=== PATIENT | female | born 1940 | race Caucasian/White ===

== ENCOUNTER 2016-12-04 13:22 | Emergency (ER) | payer OTHER, MEDICARE ==
[~2016-12-04] VITALS: Ht 152.4 cm; Wt 76.8 kg
[~2016-12-04 13:22] MED LIST: ACET-1228 PO; ALBUAER2 INH; ARFO15NE INH; BUDE0.5S INH; CPR250 PO; FLUT0.15 NAE; GABA-112 PO; INSDGI SC; INSU1INJ2 SC; LOSA50TA6 PO; MAGN400T24 PO; METO50TA16 PO; NVLG SC; PANT40TA PO
[2016-12-04 13:31] VITALS: TEMP 36.7; O2SAT 98; Ht 152.4 cm; Wt 76.8 kg
[2016-12-04] MEDS ORDERED: METOPROLOL TARTRATE 1 MG/ML VIAL IV STA ×2 (14:38→15:47)
--- NOTE | 2016-12-04 15:32 | DIAGNOSTIC IMAGING REPORT ---
HEAD CT NONCONTRAST CT DOSE: 537.48 mGy.cm HISTORY: Altered mental status. TECHNIQUE: Multiaxial CT images of the head were performed without the use of intravenous contrast. Automated exposure control was utilized for this study. Comparison: Head CT 11/29/2016. Findings: The paranasal sinuses and mastoid air cells are clear. The calvarium and skull base are intact. There is no mass, hematoma, midline shift, acute infarct. White matter hypodensity is nonspecific but suggestive of microvascular ischemic change. The ventricles and sulci demonstrate a within normal limits for age. Impression: No significant change compared to the prior study. No acute intracranial abnormality. Electronically signed by: Rogerio Parker M.D. 12/04/2016 3:31 PM Dictated Date/Time: 12/04/2016 3:25 PM
[2016-12-04] MEDS ORDERED: METO100T14 PO (15:50)
[2016-12-04 16:20] LABS: BASO % 0.8 %; BASO ABS # 0.08 K/uL (0-0.2); COMPLETE YES; EOS % 6.6 %; HEMATOCRIT 36.1 % (37-47); IG% 0.4 %; LYMPH % 33.1 %; LYMPH ABS # 3.18 K/uL (1.2-3.4); MEAN CELL VOLUME 85.5 fL (80-100); MEAN CORPUSCULAR HGB CONC 36.3 g/dl (32-36); MEAN PLATELET VOLUME 9.5 fL (7.4-10.4); MONO % 8.6 %; NEUT % 50.5 %; PLATELET COUNT 145 K/uL (130-400); RED BLOOD COUNT 4.22 M/uL (4.2-5.4)
[2016-12-04] MEDS ORDERED: HydrALAZINE HCL 20 MG/ML VIAL IV. STA (16:23)
[2016-12-04 16:35] VITALS: BP 189/110; PULSE 65
[2016-12-04 16:40] LABS: BLOOD UREA NITROGEN 16 mg/dl (7-18); BUN/CREATININE RATIO 12.2 (10-20); CALCIUM 8.7 mg/dl (8.5-10.1); CARBON DIOXIDE 22 mmol/L (21-32); CHLORIDE 108 mmol/L (98-107); GLUCOSE 321 mg/dl (70-99); POTASSIUM 4.2 mmol/L (3.5-5.1); SODIUM 140 mmol/L (136-145)
[2016-12-04 16:52] LABS: BETA-HYDROXYBUTYRATE 1.67 mg/dL (0.2-2.81)
--- NOTE | 2016-12-04 21:09 | EMERGENCY ROOM VISIT NOTE ---
History Report prepared by Coral: Minh Foote Under the Supervision of: Dr. Monster Blue M.D. First contact with patient: 14:22 Chief Complaint: HYPERTENSION Stated Complaint: HYPERTENSION History of Present Illness The patient is a 76 year old female who presents to the Emergency Room with complaints of persistent hypertension all day today. The patient notes that at home her pressure was 290/94. After taking her Losartan, her top number went down to 190. However, it went back up into the 200s again shortly after. The patient notes that she thought they took her Lopressor medication away and is unsure if she took her 2 pills this morning that she was supposed. Her home nurses fixed her pillbox this morning and can be called to see if she did take the prescribed dose this morning. She was discharged from the hospital yesterday and her losartan was increased 100 mg. The patient complains of a headache that she describes as a pressure in her forehead and tingling in her fingers. She denies numbness. Source of History: patient Onset: today Position: other (global) Symptom Intensity: systolic over 290 Quality: other (elevated blood pressure) Timing: other (persistent) Associated Symptoms: + SOB (Mild shortness breath this morning, resolved), + headache (pressure in her forehead), No chest pain, No numbness Note: Other associated symptoms: tingling in right hand Review of Systems See HPI for pertinent positives & negatives. A total of 10 systems reviewed and were otherwise negative. 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 (11) Depression (12) Diabetes mellitus type 2 (13) Diabetic neuropathy (14) DKA (diabetic ketoacidoses) (15) Dyslipidemia (16) Esophageal dysmotility (17) Fatty liver (18) Gastroparesis (19) Giant cell arteritis (20) History of sleep apnea (21) Hypertensive urgency (22) Insomnia (23) Ischemic stroke (24) Pancreatic divisum (25) Sciatica (26) TIA (transient ischemic attack) Surgical Problems: (1) cataract surgery (2) H/O esophagogastroduodenoscopy (3) History of - tubal ligation (4) History of cholecystectomy (5) S/P ERCP (6) S/P ERCP (7) S/p fixation of left ankle fracture Family History Diabetes mellitus GRANDMOTHER MOTHER FH: Parkinson's disease Hypertension Stroke GRANDFATHER Social History Smoking Status: Former Smoker Alcohol Use: none Drug Use: none Marital Status: Housing Status: lives alone Occupation Status: retired Current/Historical Medications Scheduled Arformoterol Tartrate (Brovana), 15 MCG INH BID Aspirin (Aspirin), 81 MG PO DAILY Atorvastatin (Atorvastatin Calcium), 10 MG PO QPM Budesonide Soln (Pulmicort Respules 0.5MG/2ML), 2 ML INH BID Ciprofloxacin (Ciprofloxacin HCl), 1 TAB PO BID Clopidogrel Bisulfate (Plavix), 75 MG PO QAM Escitalopram (Lexapro), 1 MG PO QAM Gabapentin (Neurontin), 400 MG PO BID Gabapentin (Neurontin), 200 MG PO DAILY Insulin Aspart (Novolog), 20 UNITS SC WM Insulin Aspart (Novolog Penfill), Unknown Dose SC UD Insulin Glargine (Lantus), 25 UNITS SC HS Insulin Glargine (Lantus), 50 SC QAM Losartan Potassium (Cozaar), 100 MG PO QAM Magnesium Oxide (Mag-Oxide), 400 MG PO DAILY Metoprolol Tartrate (Lopressor) (Lopressor), 100 MG PO DAILY Mirtazapine (Remeron), 30 MG PO HS Pantoprazole (Protonix), 40 MG PO QPM Ropinirole Hydrochloride (Requip), 1 MG PO QAM Scheduled PRN Acetaminophen (Acetaminophen 8 Hour), 650 MG PO TID PRN for Pain Albuterol (Ventolin), 2 PUFFS INH QID PRN for SOB/Wheezing Docusate Sodium (Colace), 100 MG PO BID PRN for Constipation Fluticasone Propionate (Nasal) (Flonase Allergy Relief), 2 SPRAYS JOSE MANUEL DAILY PRN for Nasal Congestion Tramadol (Ultram), 50 MG PO Q6 PRN for Pain Allergies Coded Allergies: Iodinated Diagnostic Agents (Verified Allergy, Severe, RASH TO IVP DYE, NAUSEA, FAINTING, COUGHING, GAGGING, HEADACH, 12/04/16) Sulfa Antibiotics (Verified Allergy, Severe, HIVES, FACIAL AND ARM SWELLING, 12/04/16) Cerivastatin (Verified Allergy, Intermediate, HIVES, 12/04/16) Codeine (Verified Allergy, Intermediate, "PRICKLY RASH", 12/04/16) Hydroxyzine (Verified Allergy, Intermediate, N/V, 12/04/16) Latex1 -Allergic Contact Dermititis (Verified Allergy, Intermediate, DERMATITIS-PT TOLERATED A LATEX CATHETER 03/26/08, 12/04/16) Diphenhydramine (Verified Allergy, Mild, RASH; SLEEPINESS WITH "PHARBEDRYL ", 12/04/16) Loratadine (Verified Allergy, Mild, HIVES, 12/04/16) Sulfamethoxazole w/Trimethoprim (Verified Allergy, Mild, RASH, 12/04/16) Prednisone (Unverified Allergy, Unknown, unknown, 12/04/16) Tetanus Toxoid (Verified Adverse Reaction, Intermediate, SWELLING AT INJECTION SITE, 12/04/16) Alprazolam (Verified Adverse Reaction, Unknown, "SLEEPY STUPER", 12/04/16) Metformin (Verified Adverse Reaction, Unknown, DIARRHEA, 12/04/16) Morphine (Verified Adverse Reaction, Unknown, VOMITING, 12/04/16) Simvastatin (Verified Adverse Reaction, Unknown, COUGH, "DISCOMFORT", 12/04) Physical Exam Vital Signs Date Time Temp Pulse Resp B/P Pulse Ox O2 Delivery O2 Flow Rate FiO2 12/04/16 16:35 65 20 189/110 12/04/16 16:10 72 20 207/114 12/04/16 16:10 220/100 12/04/16 15:39 88 218/91 12/04/16 15:35 78 12/04/16 13:31 36.7 87 18 221/96 98 Room Air Physical Exam Constitutional: Vital signs reviewed. Eyes: Pupils are equal round reactive to light. Conjunctiva are noninjected. ENT: Pharynx is clear without erythema or exudate. Mucous membranes are moist. Neck supple without meningeal signs. Respiratory: Clear to auscultation bilaterally. Breath sounds are equal bilaterally. Cardiovascular: Regular rate and rhythm. No rubs or gallops. GI: Soft, nondistended and nontender. Bowel sounds are present. Musculoskeletal: No peripheral edema. No lower extremity tenderness. Integumentary: No cyanosis. focal deficits.Neurologic: The patient is awake and alert. Cranial nerves II- XII are intact. Motor is 5 out of 5 all extremities. Sensation is intact to light touch all extremities. Normal speech. No pronator drift. Psychiatric: Normal affect. Medical Decision & Procedures ER Provider Diagnostic Interpretation: CT results as stated below per my review and radiologist interpretation. HEAD CT NONCONTRAST CT DOSE: 537.48 mGy.cm HISTORY: Altered mental status. TECHNIQUE: Multiaxial CT images of the head were performed without the use of intravenous contrast. Automated exposure control was utilized for this study. Comparison: Head CT 11/29/2016. Findings: The paranasal sinuses and mastoid air cells are clear. The calvarium and skull base are intact. There is no mass, hematoma, midline shift, acute infarct. White matter hypodensity is nonspecific but suggestive of microvascular ischemic change. The ventricles and sulci demonstrate a within normal limits for age. Impression: No significant change compared to the prior study. No acute intracranial abnormality. Electronically signed by: Rogerio Parker M.D. 12/04/2016 3:31 PM Dictated Date/Time: 12/04/2016 3:25 PM Laboratory Results 12/04/16 16:10 Red Blood Count 4.22, Mean Corpuscular Volume 85.5, Mean Corpuscular Hemoglobin 31.0, Mean Corpuscular Hemoglobin Concent 36.3, Mean Platelet Volume 9.5, Neutrophils (%) (Auto) 50.5, Lymphocytes (%) (Auto) 33.1, Monocytes (%) (Auto) 8.6, Eosinophils (%) (Auto) 6.6, Basophils (%) (Auto) 0.8, Neutrophils # (Auto) 4.84, Lymphocytes # (Auto) 3.18, Monocytes # (Auto) 0.83, Eosinophils # (Auto) 0.63, Basophils # (Auto) 0.08 12/04/16 16:10 Test 12/04/16 16:10 White Blood Count 9.60 K/uL (4.8-10.8) Red Blood Count 4.22 M/uL (4.2-5.4) Hemoglobin 13.1 g/dL (12.0-16.0) Hematocrit 36.1 % (37-47) Mean Corpuscular Volume 85.5 fL (80-100) Mean Corpuscular Hemoglobin 31.0 pg (25-34) Mean Corpuscular Hemoglobin Concent 36.3 g/dl (32-36) Platelet Count 145 K/uL (130-400) Mean Platelet Volume 9.5 fL (7.4-10.4) Neutrophils (%) (Auto) 50.5 % Lymphocytes (%) (Auto) 33.1 % Monocytes (%) (Auto) 8.6 % Eosinophils (%) (Auto) 6.6 % Basophils (%) (Auto) 0.8 % Neutrophils # (Auto) 4.84 K/uL (1.4-6.5) Lymphocytes # (Auto) 3.18 K/uL (1.2-3.4) Monocytes # (Auto) 0.83 K/uL (0.11-0.59) Eosinophils # (Auto) 0.63 K/uL (0-0.5) Basophils # (Auto) 0.08 K/uL (0-0.2) RDW Standard Deviation 41.4 fL (36.4-46.3) RDW Coefficient of Variation 13.3 % (11.5-14.5) Immature Granulocyte % (Auto) 0.4 % Immature Granulocyte # (Auto) 0.04 K/uL (0.00-0.02) Anion Gap 10.0 mmol/L (3-11) Est Creatinine Clear Calc Drug Dose 33.7 ml/min Estimated GFR () 46.2 Estimated GFR (Non- 39.8 BUN/Creatinine Ratio 12.2 (10-20) Calcium Level 8.7 mg/dl (8.5-10.1) Troponin I < 0.015 ng/ml (0-0.045) Beta-Hydroxybutyric Acid 1.67 mg/dL (0.2-2.81) Laboratory results as reviewed by me. Medications Administered Medications (Trade) Dose Ordered Sig/Rosetta Route Start Time Stop Time Status Last Admin Dose Admin Metoprolol Tartrate (Lopressor Iv) 5 mg NOW STAT IV 12/04/16 14:38 12/04/16 14:41 DC 12/04/16 15:39 5 MG Metoprolol Tartrate (Lopressor Iv) 5 mg NOW STAT IV 12/04/16 15:47 12/04/16 15:48 DC 12/04/16 16:10 5 MG Hydralazine HCl (HydrALAZINE INJ) 10 mg NOW STAT IV. 12/04/16 16:23 12/04/16 16:24 DC 12/04/16 16:36 10 MG ECG Indication: other Rate (beats per minute): 79 Rhythm: normal sinus Findings: no acute ischemic change, no ectopy ED Course 1430: The patient was evaluated in room C4. A complete history and physical exam was performed. 1438: Ordered Lopressor Iv 5 mg IV. 1530: At this time, I reevaluated the patient and her blood pressure was 218/ 91. However, she did not receive her medication yet because there was a problem with her IV. 1547: Ordered Lopressor Iv 5 mg IV. 1600: At this time, the home nurse called and said there was no way of knowing if the patient took Lopressor or not. 1623: Ordered Hydralazine HCl 10 mg IV. 1710: At this time, I reevaluated the patient and her pressure was 175/79. She feels better and is ready to go home. I discussed malcom's findings with her. She verbalized agreement of the treatment plan. The patient was discharged home. Medical Decision This is a 76-year-old female who presents with elevated blood pressure and headache. Differential diagnosis includes medication noncompliance, hypertensive urgency, intracranial hemorrhage, migraine headache, metabolic derangement. I did perform a limited focused review of portions of the patient' s old chart on the electronic medical record. The patient was admitted on November 29 for AMS. She had an unremarkable MRI of the. The cause of the AMS was thought to be an interaction between Tramadol and a muscle relaxant. Her EEG was negative. She was discharged on Cipro for a UTI and her Losartan was increased to 100 mg. I did evaluate the patient as noted above. She is presenting with elevated blood pressures in a frontal headache. She is neurologically intact. She did have hypertension when she was admitted and upon discharge. Her losartan was increased to 100 mg which she said she took today. She is not sure she took her Lopressor as she thought that she did not have to take that anymore. We did try to verify with her home health nurse as to whether she took the Lopressor are not and she stated that her pills were scattered all over the place and they could not establish whether she took it or not. IV access was established. The patient was placed on a continuous teletypesetter monitor. She is very hypertensive. I did treat her with IV Lopressor 2 as well as hydralazine IV. I did order and personally review the patient's 12-lead EKG as described above. I did order and review the patient's blood work as noted in the electronic medical record. She has hyperglycemia. I did order a CT of the head. I did review the images myself as well as the radiology report as described above. There is no evidence of hemorrhage. I did discuss the test results with the patient. She did wish to be discharged home. Her blood pressure did improve significantly. I did recommend she follow up tomorrow with her doctor to have her blood pressure rechecked and make sure she takes her blood pressure medicines as prescribed. Impression Primary Impression: High blood pressure Additional Impressions: Hyperglycemia Headache Scribe Attestation The scribe's documentation has been prepared under my direct and personally reviewed by me in its entirety. I confirm that the note above accurately reflects all work, treatment, procedures, and medical decision making performed by me. Departure Information Dispostion Home / Self-Care Referrals Colleen Jefferson D.O. (PCP) Forms HOME CARE DOCUMENTATION FORM, IMPORTANT VISIT INFORMATION, WORK / SCHOOL INSTRUCTIONS Patient Instructions My [facility] Additional Instructions You have been examined and treated today on an emergency basis only. This is not a substitute for, or an effort to provide, complete comprehensive medical care. It is impossible to recognize and treat all injuries or illnesses in a single emergency department visit. It is therefore important that you follow up closely with your physician. Call as soon as possible for an appointment. Talk to your doctor about further blood pressure control. Return for worsening symptoms or if you develop fever, vomiting, chest pain, numbness or weakness in the arms or legs, or any other concerning symptoms. Problem Qualifiers Primary Impression: High blood pressure
[2017-04-03] MEDS ORDERED: GABA1CAP5 PO (10:52)
[2017-04-03] MEDS ORDERED: TRAM-10 PO (11:07)
[2017-04-03] MEDS ORDERED: MIRT30TA3 PO (11:46)
[2017-04-03] MEDS ORDERED: TRAZ50TA35 PO (12:26)
[2017-04-03] MEDS ORDERED: MAGN400T6 PO (12:26)
[2017-04-03] MEDS ORDERED: LORA-741 PO (12:26)
[2017-04-03] MEDS ORDERED: METO50TA16 PO (12:26)
[2017-04-03] MEDS ORDERED: CETI10TA84 PO (12:26)
[2017-04-03] MEDS ORDERED: PANC6000 PO (12:26)
[2017-04-03] MEDS ORDERED: PRLSR20 PO (12:26)
[2017-04-03] MEDS ORDERED: AMT50 PO (12:47)
[2017-04-03] MEDS ORDERED: ESCI10TA17 PO (14:26)
[2017-04-03] MEDS ORDERED: ROPI1TAB PO (14:48)
[2017-04-03] MEDS ORDERED: ASPI1TAB83 PO (16:44)
[2017-04-03] MEDS ORDERED: CLOP1TAB5 PO (17:26)
[2017-04-03] MEDS ORDERED: LPT10 PO (17:35)
[2017-08-06] MEDS ORDERED: CLOP1TAB15 PO (08:41)
== END 2016-12-04 17:30 | disposition home or self-care (01) ==
LOC: C.EDB 13:24 → C.EDC 17:30
DX: I12.9 Hypertensive chronic kidney disease with stage 1 through stage 4 chronic kidney disease, or unspecified chronic kidney disease (principal); E11.65 Type 2 diabetes mellitus with hyperglycemia; R51 Headache; N18.3 Chronic kidney disease, stage 3 (moderate); E11.22 Type 2 diabetes mellitus with diabetic chronic kidney disease; J44.9 Chronic obstructive pulmonary disease, unspecified; Z79.82 Long term (current) use of aspirin; Z98.49 Cataract extraction status, unspecified eye; Z86.73 Personal history of transient ischemic attack (TIA), and cerebral infarction without residual deficits; Z98.51 Tubal ligation status; Z90.49 Acquired absence of other specified parts of digestive tract; Z87.891 Personal history of nicotine dependence; Z79.4 Long term (current) use of insulin; Z79.02 Long term (current) use of antithrombotics/antiplatelets; Z83.3 Family history of diabetes mellitus; Z82.49 Family history of ischemic heart disease and other diseases of the circulatory system; Z82.3 Family history of stroke; Z82.0 Family history of epilepsy and other diseases of the nervous system; Z88.2 Allergy status to sulfonamides; Z88.5 Allergy status to narcotic agent; Z91.040 Latex allergy status

== ENCOUNTER 2017-01-24 10:29 | Emergency (ER) | payer OTHER, MEDICARE ==
[~2017-01-24] VITALS: Ht 152.4 cm; Wt 76.4 kg
[~2017-01-24 10:29] MED LIST changes: +METO100T14 PO; -METO50TA16 PO
[2017-01-24 10:52] VITALS: TEMP 37.1; Ht 152.4 cm; Wt 76.4 kg
[2017-01-24] MEDS ORDERED: LOSARTAN POTASSIUM 50 MG TAB PO STA (10:59)
[2017-01-24] MEDS ORDERED: ONDANSETRON INJ 2 MG/ML 2 ML VIAL IV STA (10:59)
[2017-01-24] MEDS ORDERED: METOPROLOL TARTRATE 100 MG TAB PO STA (10:59)
[2017-01-24] MEDS ORDERED: HYDROmorphone INJ 1 MG/ML SYR IV STA ×2 (10:59→14:14)
[2017-01-24 11:51] LABS: BASO % 0.9 %; BASO ABS # 0.09 K/uL (0-0.2); COMPLETE YES; EOS % 3.2 %; HEMATOCRIT 39.7 % (37-47); IG% 0.4 %; LYMPH % 40.3 %; MEAN CELL VOLUME 86.1 fL (80-100); MEAN CORPUSCULAR HEMOGLOBIN 30.6 pg (25-34); MEAN CORPUSCULAR HGB CONC 35.5 g/dl (32-36); MEAN PLATELET VOLUME 8.9 fL (7.4-10.4); MONO % 7.2 %; PLATELET COUNT 204 K/uL (130-400); RED BLOOD COUNT 4.61 M/uL (4.2-5.4); WHITE BLOOD COUNT 10.41 K/uL (4.8-10.8)
[2017-01-24 12:07] LABS: ALT/SGPT 30 U/L (12-78); AST/SGOT 20 U/L (15-37); BLOOD UREA NITROGEN 11 mg/dl (7-18); BUN/CREATININE RATIO 9.5 (10-20); CALCIUM 8.9 mg/dl (8.5-10.1); CARBON DIOXIDE 27 mmol/L (21-32); CHLORIDE 107 mmol/L (98-107); GLUCOSE 141 mg/dl (70-99); POTASSIUM 3.6 mmol/L (3.5-5.1); SODIUM 143 mmol/L (136-145)
[2017-01-24 12:09] LABS: INR 1.1 (0.9-1.1); PROTHROMBIN TIME (PATIENT) 11.4 SECONDS (9.0-12.0)
[2017-01-24 12:10] LABS: ALKALINE PHOSPHATASE 81 U/L (45-117)
[2017-01-24] MEDS ORDERED: METOCLOPRAMIDE HCL INJ 5 MG/ML 2 ML VIAL IV STA (12:12)
[2017-01-24] MEDS ORDERED: INSU70IN2 SC (12:26)
--- NOTE | 2017-01-24 13:20 | DIAGNOSTIC IMAGING REPORT ---
CT SCAN OF THE ABDOMEN AND PELVIS WITHOUT IV CONTRAST CLINICAL HISTORY: Epigastric abdominal pain. COMPARISON STUDY: Abdominal CT dated 07/19/2016. Abdominal MRI dated 09/13/2015. TECHNIQUE: CT scan of the abdomen and pelvis is performed from the lung bases to the proximal femora. Images are reviewed in the axial, sagittal, and coronal planes. IV contrast was not administered for this examination as per the referring clinician. Note that the examination was performed in significantly suboptimal fashion without oral and IV contrast. Automated dose control exposure was utilized. CT DOSE: 1980.19 mGycm FINDINGS: Lung bases: The heart is enlarged and without pericardial effusion. The tip of a catheter terminates at the cavoatrial junction. There is lipomatous hypertrophy of the interatrial septum. The coronary arteries and mitral annulus are densely calcified. No airspace consolidation or pleural effusion is identified. Dependent atelectasis is noted. There is a tiny hiatal hernia. Liver: The unenhanced liver is top normal in size measuring 17.0 cm in length. The liver demonstrates diffusely diminished attenuation consistent with hepatic steatosis. There are several calcified hepatic granulomas. There is no intrahepatic biliary ductal dilatation. Gallbladder: Surgically absent noting clips in the gallbladder fossa. Spleen: Normal in size and attenuation. There are small calcified splenic granulomas. Pancreas: The pancreas is atrophic. Coarse calcifications are noted in the pancreatic head. An 8 mm IPMN is suggested in the uncinate pancreatic head on image #[id number]. Adrenal glands: Unremarkable. Kidneys: The unenhanced kidneys are atrophic and without hydronephrosis. There are no renal calculi identified. There is no evidence of contour deforming renal mass lesion. Abdominal vasculature: The abdominal aorta is normal in course and caliber noting moderate to advanced atherosclerotic calcification. Bowel: The small bowel and colon are normal in course and caliber. There is mild colonic diverticulosis without CT evidence of acute diverticulitis. The appendix is well-visualized and normal. Peritoneum: There is no intraperitoneal free air or abdominal ascites. There is a small fat-containing umbilical hernia. Lymphadenopathy: None. Pelvic viscera: The bladder, uterus, and adnexa are normal as visualized. Numerous calcified phleboliths are noted in the pelvis. Skeletal structures: The skeletal structures are osteopenic. No lytic or blastic lesions are seen. A hemangioma is noted in the body of L4. IMPRESSION: 1. Suboptimal examination without oral and IV contrast. 2. There are no acute infectious or inflammatory findings in the abdomen or pelvis. 3. Hepatic steatosis. 4. Mild colonic diverticulosis without CT evidence of acute diverticulitis. 5. Additional findings as above. Electronically signed by: Ramez Blanchard M.D. 01/24/2017 1:19 PM Dictated Date/Time: 01/24/2017 1:12 PM
--- NOTE | 2017-01-24 13:59 | DIAGNOSTIC IMAGING REPORT ---
CT SCAN OF THE LUMBAR SPINE WITHOUT IV CONTRAST CLINICAL HISTORY: Chronic low back pain. COMPARISON STUDY: Abdominal CT performed concurrently on 01/24/2017. CT scan of the lumbar spine dated 07/22/2015. TECHNIQUE: CT scan of the lumbar spine is performed from the lower thoracic spine to the sacrum. Images are reviewed in the axial, sagittal, and coronal planes. IV contrast was not administered for this examination. FINDINGS: Lumbar spine: The skeletal structures are osteopenic. There is no evidence of fracture or malalignment involving the lumbar spine. Vertebral body height and alignment are maintained. The transverse and spinous processes are intact. Small anterior osteophytes are seen throughout. There is no evidence of spondylolysis. No lytic or blastic lesions are identified. There is moderate degenerative disc space narrowing with vacuum phenomenon seen at L5-S1. The remaining disc spaces appear preserved. There is no evidence of large disc herniation. A posterior disc bulge is seen at L4-L5. A small posterior disc-osteophyte complex is noted at L5-S1. A small hemangioma is incidentally noted in the body of L4. The visualized sacrum and bony pelvis appear intact. The paraspinous soft tissues are within normal limits. Moderate to advanced atherosclerotic calcification is noted in the abdominal aorta. The partially imaged kidneys demonstrate cortical atrophy. IMPRESSION: 1. No acute bony abnormality is seen involving the lumbosacral spine. 2. Osteopenia and mild spondylotic change as above. Dictated: 01/24/2017 1:21 PM Transcribed: 01/24/2017 1:59 PM [email or web address] Electronically signed by: Ramez Blanchard M.D. 01/24/2017 2:04 PM Dictated Date/Time: 01/24/2017 1:21 PM
[2017-01-24 15:36] LABS: URINE APPEARANCE CLOUDY (CLEAR); URINE BILIRUBIN NEG (NEG); URINE COLOR DK YELLOW; URINE EPITHELIAL CELL AUTO >30 /lpf (0-5); URINE NITRITE NEG (NEG); URINE SPECIFIC GRAVITY 1.031 (1.000-1.030); UROBILINOGEN NEG (NEG)
[2017-01-24 15:49] LABS: MANUAL MICROSCOPIC REQUIRED? NO; REVIEW REQ? YES
--- NOTE | 2017-01-24 15:56 | DIAGNOSTIC IMAGING REPORT ---
ULTRASOUND RIGHT UPPER EXTREMITY VENOUS CLINICAL HISTORY: Right arm swelling. COMPARISON STUDY: No priors. TECHNIQUE: Real-time, grayscale, and color Doppler sonography of the deep veins of the right upper extremity is performed. Compression and augmentation were utilized. FINDINGS: There is no sonographic evidence of deep venous thrombosis identified in the right upper extremity. The right internal jugular, axillary, and brachial veins are patent and normally compressible. Normal venous waveforms and augmentation are seen within the right subclavian vein. The cephalic and basilic veins are clear. The visualized radial and ulnar veins are patent. IMPRESSION: There is no sonographic evidence of deep venous thrombosis identified in the right upper extremity. Electronically signed by: Ramez Blanchard M.D. 01/24/2017 3:55 PM Dictated Date/Time: 01/24/2017 3:54 PM
[2017-01-24] MEDS ORDERED: AMOXICILLIN 250 MG CAP PO STA (16:01)
[2017-01-24] MEDS ORDERED: AMOX500C3 PO (16:04)
[2017-01-24 16:37] VITALS: BP 176/76; PULSE 61; O2SAT 95
--- NOTE | 2017-01-24 16:43 | EMERGENCY ROOM VISIT NOTE ---
History Report prepared by Coral: Gia Rueda Under the Supervision of: Dr. Monster Blue M.D. First contact with patient: 10:49 Chief Complaint: BACK PAIN Stated Complaint: BACK PAIN History of Present Illness The patient is a 76 year old female who presents to the Emergency Room with complaints of persistent lower back pain that began yesterday. She currently rates her discomfort as an 8/10 in severity, describing her pain as a sharp and achy pain. The patient states that she has a history of pancreatitis and states that her pain today feels similar to her bouts with pancreatitis. She states that around 0100 she noticed the pain begin to radiate down her right leg. The patient states that yesterday she experienced watery, loose diarrhea. She additionally notes nausea, vomiting, and right upper quadrant abdominal pain today. The patient states that today she noticed right arm swelling. She notes a history of a cholecystectomy. The patient denies any alcohol use. She denies any recent fall or trauma. The patient states that she did not take any of her medications this morning due to vomiting. She denies any chest pain, fever, shortness of breath, hematochezia or melena. Source of History: patient Onset: yesterday Position: back (lower) Symptom Intensity: 8/10 Quality: ache, sharp Timing: other (persistent) Associated Symptoms: + abdominal pain (RUQ), + diarrhea, + nausea, + vomiting, No SOB, No chest pain, No fevers, No hematochezia, No melena Note: Associated Symptoms: right arm swelling, pain radiating down right leg. Review of Systems See HPI for pertinent positives & negatives. A total of 10 systems reviewed and were otherwise negative. 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 (11) Depression (12) Diabetes mellitus type 2 (13) Diabetic neuropathy (14) DKA (diabetic ketoacidoses) (15) Dyslipidemia (16) Esophageal dysmotility (17) Fatty liver (18) Gastroparesis (19) Giant cell arteritis (20) History of sleep apnea (21) Hypertensive urgency (22) Insomnia (23) Ischemic stroke (24) Pancreatic divisum (25) Sciatica (26) TIA (transient ischemic attack) Surgical Problems: (1) cataract surgery (2) H/O esophagogastroduodenoscopy (3) History of - tubal ligation (4) History of cholecystectomy (5) S/P ERCP (6) S/P ERCP (7) S/p fixation of left ankle fracture Family History Diabetes mellitus GRANDMOTHER MOTHER FH: Parkinson's disease Hypertension Stroke GRANDFATHER Social History Smoking Status: Former Smoker Alcohol Use: none Drug Use: none Marital Status: Housing Status: lives alone Occupation Status: retired Current/Historical Medications Scheduled Amoxicillin (Amoxil), 500 MG PO TID Aspirin (Aspirin), 81 MG PO DAILY Atorvastatin (Atorvastatin Calcium), 10 MG PO QPM Cetirizine (Zyrtec), 10 MG PO DAILY Clopidogrel Bisulfate (Plavix), 75 MG PO QAM Escitalopram (Lexapro), 15 MG PO QAM Gabapentin (Neurontin), 400 MG PO BID Insulin Isophan/Regular (Novolin 70/30), 70 UNITS SC AMPM Losartan Potassium (Cozaar), 100 MG PO QAM Magnesium Oxide (Mag-Ox), 400 MG PO QAM Metoprolol Tartrate (Lopressor) (Lopressor), 50 MG PO BID Mirtazapine (Remeron), 30 MG PO HS Omeprazole (Prilosec), 40 MG PO QAM Pancrelipase (Lipase-Protease- (Creon), 6,000 UNITS PO QID Ropinirole Hydrochloride (Requip), 1 MG PO HS Trazodone Hcl (Trazodone), 50 MG PO HS Scheduled PRN Docusate Sodium (Colace), 100 MG PO BID PRN for Constipation Lorazepam (Ativan), 0.5 MG PO Q6H PRN for Anxiety Tramadol (Ultram), 50 MG PO Q6 PRN for Pain Allergies Coded Allergies: Iodinated Diagnostic Agents (Verified Allergy, Severe, RASH TO IVP DYE, NAUSEA, FAINTING, COUGHING, GAGGING, HEADACH, 12/04/16) Sulfa Antibiotics (Verified Allergy, Severe, HIVES, FACIAL AND ARM SWELLING, 12/04/16) Cerivastatin (Verified Allergy, Intermediate, HIVES, 12/04/16) Codeine (Verified Allergy, Intermediate, "PRICKLY RASH", 12/04/16) Hydroxyzine (Verified Allergy, Intermediate, N/V, 12/04/16) Latex1 -Allergic Contact Dermititis (Verified Allergy, Intermediate, DERMATITIS-PT TOLERATED A LATEX CATHETER 03/26/08, 12/04/16) Diphenhydramine (Verified Allergy, Mild, RASH; SLEEPINESS WITH "PHARBEDRYL ", 12/04/16) Loratadine (Verified Allergy, Mild, HIVES, 12/04/16) Sulfamethoxazole w/Trimethoprim (Verified Allergy, Mild, RASH, 12/04/16) Prednisone (Unverified Allergy, Unknown, unknown, 12/04/16) Tetanus Toxoid (Verified Adverse Reaction, Intermediate, SWELLING AT INJECTION SITE, 12/04/16) Alprazolam (Verified Adverse Reaction, Unknown, "SLEEPY STUPER", 12/04/16) Metformin (Verified Adverse Reaction, Unknown, DIARRHEA, 12/04/16) Morphine (Verified Adverse Reaction, Unknown, VOMITING, 12/04/16) Simvastatin (Verified Adverse Reaction, Unknown, COUGH, "DISCOMFORT", 12/04) Physical Exam Vital Signs Date Time Temp Pulse Resp B/P Pulse Ox O2 Delivery O2 Flow Rate FiO2 01/24/17 16:37 61 16 176/76 95 01/24/17 14:36 56 18 164/82 96 Room Air 01/24/17 14:01 52 20 152/73 98 Room Air 01/24/17 13:10 57 18 168/78 96 Room Air 01/24/17 11:50 71 18 209/114 96 Room Air 01/24/17 10:52 37.1 79 18 219/97 97 Room Air Physical Exam Constitutional: Vital signs reviewed. Eyes: Pupils are equal round reactive to light. Conjunctiva are noninjected. ENT: Pharynx is clear without erythema or exudate. Mucous membranes are moist. Neck supple without meningeal signs. Respiratory: Clear to auscultation bilaterally. Breath sounds are equal bilaterally. Cardiovascular: Regular rate and rhythm. No rubs or gallops. GI: Soft, nondistended with mild epigastric tenderness. Bowel sounds are present. No Cullens or Duran Persaud sign. Musculoskeletal: No appreciable swelling to extremities, including the right arm. Normal distal pulses and right arm. No lower extremity tenderness. No CVA tenderness. No midline tenderness to the thoracic or lumbosacral spine. Integumentary: No cyanosis. Neurological: The patient is awake and alert. No focal deficits. Psychiatric: Normal affect. Medical Decision & Procedures ER Provider Diagnostic Interpretation: Radiology results as stated below per my review and the radiologist's interpretation: CT SCAN OF THE LUMBAR SPINE WITHOUT IV CONTRAST CLINICAL HISTORY: Chronic low back pain. COMPARISON STUDY: Abdominal CT performed concurrently on 01/24/2017. CT scan of the lumbar spine dated 07/22/2015. TECHNIQUE: CT scan of the lumbar spine is performed from the lower thoracic spine to the sacrum. Images are reviewed in the axial, sagittal, and coronal planes. IV contrast was not administered for this examination. FINDINGS: Lumbar spine: The skeletal structures are osteopenic. There is no evidence of fracture or malalignment involving the lumbar spine. Vertebral body height and alignment are maintained. The transverse and spinous processes are intact. Small anterior osteophytes are seen throughout. There is no evidence of spondylolysis. No lytic or blastic lesions are identified. There is moderate degenerative disc space narrowing with vacuum phenomenon seen at L5-S1. The remaining disc spaces appear preserved. There is no evidence of large disc herniation. A posterior disc bulge is seen at L4-L5. A small posterior disc-osteophyte complex is noted at L5-S1. A small hemangioma is incidentally noted in the body of L4. The visualized sacrum and bony pelvis appear intact. The paraspinous soft tissues are within normal limits. Moderate to advanced atherosclerotic calcification is noted in the abdominal aorta. The partially imaged kidneys demonstrate cortical atrophy. IMPRESSION: 1. No acute bony abnormality is seen involving the lumbosacral spine. 2. Osteopenia and mild spondylotic change as above. Dictated: 01/24/2017 1:21 PM Transcribed: 01/24/2017 1:59 PM [email or web address] Electronically signed by: Ramez Blanchard M.D. 01/24/2017 2:04 PM Dictated Date/Time: 01/24/2017 1:[address] SCAN OF THE ABDOMEN AND PELVIS WITHOUT IV CONTRAST CLINICAL HISTORY: Epigastric abdominal pain. COMPARISON STUDY: Abdominal CT dated 07/19/2016. Abdominal MRI dated 09/13/2015. TECHNIQUE: CT scan of the abdomen and pelvis is performed from the lung bases to the proximal femora. Images are reviewed in the axial, sagittal, and coronal planes. IV contrast was not administered for this examination as per the referring clinician. Note that the examination was performed in significantly suboptimal fashion without oral and IV contrast. Automated dose control exposure was utilized. CT DOSE: 1980.19 mGycm FINDINGS: Lung bases: The heart is enlarged and without pericardial effusion. The tip of a catheter terminates at the cavoatrial junction. There is lipomatous hypertrophy of the interatrial septum. The coronary arteries and mitral annulus are densely calcified. No airspace consolidation or pleural effusion is identified. Dependent atelectasis is noted. There is a tiny hiatal hernia. Liver: The unenhanced liver is top normal in size measuring 17.0 cm in length. The liver demonstrates diffusely diminished attenuation consistent with hepatic steatosis. There are several calcified hepatic granulomas. There is no intrahepatic biliary ductal dilatation. Gallbladder: Surgically absent noting clips in the gallbladder fossa. Spleen: Normal in size and attenuation. There are small calcified splenic granulomas. Pancreas: The pancreas is atrophic. Coarse calcifications are noted in the pancreatic head. An 8 mm IPMN is suggested in the uncinate pancreatic head on image #[id number]. Adrenal glands: Unremarkable. Kidneys: The unenhanced kidneys are atrophic and without hydronephrosis. There are no renal calculi identified. There is no evidence of contour deforming renal mass lesion. Abdominal vasculature: The abdominal aorta is normal in course and caliber noting moderate to advanced atherosclerotic calcification. Bowel: The small bowel and colon are normal in course and caliber. There is mild colonic diverticulosis without CT evidence of acute diverticulitis. The appendix is well-visualized and normal. Peritoneum: There is no intraperitoneal free air or abdominal ascites. There is a small fat-containing umbilical hernia. Lymphadenopathy: None. Pelvic viscera: The bladder, uterus, and adnexa are normal as visualized. Numerous calcified phleboliths are noted in the pelvis. Skeletal structures: The skeletal structures are osteopenic. No lytic or blastic lesions are seen. A hemangioma is noted in the body of L4. IMPRESSION: 1. Suboptimal examination without oral and IV contrast. 2. There are no acute infectious or inflammatory findings in the abdomen or pelvis. 3. Hepatic steatosis. 4. Mild colonic diverticulosis without CT evidence of acute diverticulitis. 5. Additional findings as above. Electronically signed by: Ramez Blanchard M.D. 01/24/2017 1:19 PM Dictated Date/Time: 01/24/2017 1:12 PM ULTRASOUND RIGHT UPPER EXTREMITY VENOUS CLINICAL HISTORY: Right arm swelling. COMPARISON STUDY: No priors. TECHNIQUE: Real-time, grayscale, and color Doppler sonography of the deep veins of the right upper extremity is performed. Compression and augmentation were utilized. FINDINGS: There is no sonographic evidence of deep venous thrombosis identified in the right upper extremity. The right internal jugular, axillary, and brachial veins are patent and normally compressible. Normal venous waveforms and augmentation are seen within the right subclavian vein. The cephalic and basilic veins are clear. The visualized radial and ulnar veins are patent. IMPRESSION: There is no sonographic evidence of deep venous thrombosis identified in the right upper extremity. Electronically signed by: Ramez Blanchard M.D. 01/24/2017 3:55 PM Dictated Date/Time: 01/24/2017 3:54 PM Laboratory Results 01/24/17 11:35 Red Blood Count 4.61, Mean Corpuscular Volume 86.1, Mean Corpuscular Hemoglobin 30.6, Mean Corpuscular Hemoglobin Concent 35.5, Mean Platelet Volume 8.9, Neutrophils (%) (Auto) 48.0, Lymphocytes (%) (Auto) 40.3, Monocytes (%) (Auto) 7.2, Eosinophils (%) (Auto) 3.2, Basophils (%) (Auto) 0.9, Neutrophils # (Auto) 5.00, Lymphocytes # (Auto) 4.20, Monocytes # (Auto) 0.75, Eosinophils # (Auto) 0.33, Basophils # (Auto) 0.09 01/24/17 11:35 Test 01/24/17 11:35 01/24/17 11:44 01/24/17 14:30 01/24/17 15:20 White Blood Count 10.41 K/uL (4.8-10.8) Red Blood Count 4.61 M/uL (4.2-5.4) Hemoglobin 14.1 g/dL (12.0-16.0) Hematocrit 39.7 % (37-47) Mean Corpuscular Volume 86.1 fL (80-100) Mean Corpuscular Hemoglobin 30.6 pg (25-34) Mean Corpuscular Hemoglobin Concent 35.5 g/dl (32-36) Platelet Count 204 K/uL (130-400) Mean Platelet Volume 8.9 fL (7.4-10.4) Neutrophils (%) (Auto) 48.0 % Lymphocytes (%) (Auto) 40.3 % Monocytes (%) (Auto) 7.2 % Eosinophils (%) (Auto) 3.2 % Basophils (%) (Auto) 0.9 % Neutrophils # (Auto) 5.00 K/uL (1.4-6.5) Lymphocytes # (Auto) 4.20 K/uL (1.2-3.4) Monocytes # (Auto) 0.75 K/uL (0.11-0.59) Eosinophils # (Auto) 0.33 K/uL (0-0.5) Basophils # (Auto) 0.09 K/uL (0-0.2) RDW Standard Deviation 40.6 fL (36.4-46.3) RDW Coefficient of Variation 12.9 % (11.5-14.5) Immature Granulocyte % (Auto) 0.4 % Immature Granulocyte # (Auto) 0.04 K/uL (0.00-0.02) Prothrombin Time 11.4 SECONDS (9.0-12.0) Prothromb Time International Ratio 1.1 (0.9-1.1) Activated Partial Thromboplast Time 25.7 SECONDS (21.0-31.0) Partial Thromboplastin Ratio 1.0 Anion Gap 9.0 mmol/L (3-11) Est Creatinine Clear Calc Drug Dose 36.4 ml/min Estimated GFR () 50.8 Estimated GFR (Non- 43.9 BUN/Creatinine Ratio 9.5 (10-20) Calcium Level 8.9 mg/dl (8.5-10.1) Total Bilirubin 0.3 mg/dl (0.2-1) Direct Bilirubin < 0.1 mg/dl (0-0.2) Aspartate Amino Transf (AST/SGOT) 20 U/L (15-37) Alanine Aminotransferase (ALT/SGPT) 30 U/L (12-78) Alkaline Phosphatase 81 U/L (45-117) Total Protein 7.0 gm/dl (6.4-8.2) Albumin 3.5 gm/dl (3.4-5.0) Lipase 138 U/L (73-393) Bedside Troponin I 0.000 ng/ml (0-0.045) Bedside Glucose 73 mg/dl (70-90) Urine Color DK YELLOW Urine Appearance CLOUDY (CLEAR) Urine pH 5.0 (4.5-7.5) Urine Specific [place] 1.031 (1.000-1.030) Urine Protein 2+ (NEG) Urine Glucose (UA) NEG (NEG) Urine Ketones NEG (NEG) Urine Occult Blood NEG (NEG) Urine Nitrite NEG (NEG) Urine Bilirubin NEG (NEG) Urine Urobilinogen NEG (NEG) Urine Leukocyte Esterase SMALL (NEG) Urine WBC (Auto) >30 /hpf (0-5) Urine RBC (Auto) 0-4 /hpf (0-4) Urine Hyaline Casts (Auto) 0 /lpf (0-5) Urine Epithelial Cells (Auto) >30 /lpf (0-5) Urine Bacteria (Auto) 1+ (NEG) Urine Crystals AMM BIURATE (NONE PRSENT) Urine Pathogenic Casts /lpf (0) Laboratory results as reviewed by me. Medications Administered Medications (Trade) Dose Ordered Sig/Rosetta Route Start Time Stop Time Status Last Admin Dose Admin Losartan Potassium (coZAAR TAB) 100 mg NOW STAT PO 01/24/17 10:59 01/24/17 11:03 DC 01/24/17 11:47 100 MG Metoprolol Tartrate (Lopressor Tab) 100 mg NOW STAT PO 01/24/17 10:59 01/24/17 11:03 DC 01/24/17 11:47 100 MG Ondansetron HCl (Zofran Inj) 4 mg NOW STAT IV 01/24/17 10:59 01/24/17 11:03 DC 01/24/17 11:46 4 MG Hydromorphone HCl (Dilaudid Inj) 0.5 mg NOW STAT IV 01/24/17 10:59 01/24/17 11:03 DC 01/24/17 11:46 0.5 MG Metoclopramide HCl (Reglan Inj) 10 mg NOW STAT IV 01/24/17 12:12 01/24/17 12:13 DC 01/24/17 13:09 10 MG Hydromorphone HCl (Dilaudid Inj) 0.5 mg NOW STAT IV 01/24/17 14:14 3/4/17 14:16 DC 01/24/17 14:26 0.5 MG Amoxicillin (Amoxil Cap) 500 mg NOW STAT PO 01/24/17 16:01 01/24/17 16:03 DC 01/24/17 16:28 500 MG Heparin Sodium (Porcine) (Heparin 100 Unit/ml 5ml Flush) 5 ml STK-MED ONCE .ROUTE 01/24/17 16:20 01/24/17 16:24 DC 01/24/17 16:28 5 ML ECG Indication: abdominal pain Rate (beats per minute): 72 Rhythm: normal sinus Findings: other (baseline artifact, limiting interpreation, no ST elevations) ED Course 1053: The patient was evaluated in room C9. A complete history and physical exam was performed. 1059: Ordered Dilaudid Inj 0.5 mg IV, Zofran Inj 4 mg IV, Lopressor Tab 100 mg PO, Losartan Potassium 100 mg PO. 1212: I reevaluated the patient and she states that she is feeling better, but still nauseated. I discussed her test results with her. She is going to have a CT scan. Ordered Reglan Inj 10 mg IV. 1414: Per nursing staff, the patient is requesting more pain medications. Ordered Dilaudid Inj 0.5 mg IV. 1425: I reevaluate the patient and she is going to try to give a urine sample. I discussed the test results with her at this time. 1600: I reevaluated the patient and she is resting comfortably. I discussed the exam findings with her and I discussed the treatment plan. She verbalized complete understanding and agreement. She was advised to follow up with her PCP on Thursday. She is ready to go home. Ordered Amoxicillin 500 mg PO. Medical Decision This is a 76-year-old female who presents with abdominal and lower back pain. Differential diagnosis includes pancreatitis, choledocholithiasis, kidney stone , lumbar disc disease, radiculopathy, peptic ulcer disease. I did perform a limited focused review of portions of the patient's old chart on the electronic medical record. The patient was admitted in November for altered mental status of unclear etiology and hypertension. I did evaluate the patient as noted above. The patient is presenting with multiple complaints. She states she has lower back pain and abdominal pain which is consistent with her prior episodes of pancreatitis. She also states that her right arm seemed swollen to her although I do not see any appreciable swelling to that arm. She denies any chest pain or shortness of breath. IV access was established. She was treated with IV Dilaudid, Zofran and Reglan. I did order and personally review the patient's 12-lead EKG as described above. I did order and review the patient's blood work as noted in the electronic medical record. Her white blood cell count is not elevated. Troponin is negative. Electrolytes and LFTs are unremarkable. Lipase is not elevated. I did order a CT of the abdomen and pelvis and lumbar spine. I did review the images myself as well as the radiology report as described above. There is no evidence of acute process within the abdomen or pelvis or lumbar spine. I did order urinalysis. There is evidence of infection. A urine culture was sent. I did treat the patient with amoxicillin. She does have multiple drug allergies. I did discuss the test results with the patient. I did explain to her that her symptoms may be secondary to her UTI or possibly from lumbar disc disease or other etiologies. Because the patient had some concern for swelling to her right arm I did order an ultrasound of the right upper extremity which showed no evidence of DVT. On reassessment she is feeling much better. I did recommend close follow up with her doctor. She was discharged in good condition. She was given return instructions as outlined below. [place] Drug Monitoring Program Search Results: patient reviewed within database, no issues identified, see additional documentation Drug Monitoring Findings: She received an 8 day supply of Tramadol January 01. Impression Primary Impression: Low back pain Additional Impressions: Upper abdominal pain UTI (urinary tract infection) Swelling of right upper extremity Scribe Attestation The scribe's documentation has been prepared under my direct and personally reviewed by me in its entirety. I confirm that the note above accurately reflects all work, treatment, procedures, and medical decision making performed by me. Departure Information Dispostion Home / Self-Care Prescriptions Amoxicillin (AMOXIL) 500 Mg Cap 500 MG PO TID, #30 CAP Prov: Monster Blue M.D. 01/24/17 Referrals No Doctor, Assigned (PCP) Forms HOME CARE DOCUMENTATION FORM, IMPORTANT VISIT INFORMATION Patient Instructions ED Abd Pain Unkn Cause Fem, ED Back Pain Acute Chronic, My [facility] , Urinary Tract Infecs Women Additional Instructions You have been examined and treated today on an emergency basis only. This is not a substitute for, or an effort to provide, complete comprehensive medical care. It is impossible to recognize and treat all injuries or illnesses in a single emergency department visit. It is therefore important that you follow up closely with your physician. Call as soon as possible for an appointment. Return for worsening symptoms or if you develop fever, vomiting, chest pain, shortness of breath or any other concerning symptoms. Problem Qualifiers Primary Impression: Low back pain Chronicity: acute Back pain laterality: unspecified Sciatica presence: unspecified whether sciatica present Qualified Codes: M54.5 - Low back pain Additional Impressions: UTI (urinary tract infection) Urinary tract infection type: site unspecified Hematuria presence: without hematuria Qualified Codes: N39.0 - Urinary tract infection, site not specified
[2017-04-03] MEDS ORDERED: GABA1CAP5 PO (10:52)
[2017-04-03] MEDS ORDERED: TRAM-10 PO (11:07)
[2017-04-03] MEDS ORDERED: MIRT30TA3 PO (11:46)
[2017-04-03] MEDS ORDERED: METO50TA16 PO (12:26)
[2017-04-03] MEDS ORDERED: PRLSR20 PO (12:26)
[2017-04-03] MEDS ORDERED: MAGN400T6 PO (12:26)
[2017-04-03] MEDS ORDERED: CETI10TA84 PO (12:26)
[2017-04-03] MEDS ORDERED: TRAZ50TA35 PO (12:26)
[2017-04-03] MEDS ORDERED: PANC6000 PO (12:26)
[2017-04-03] MEDS ORDERED: LORA-741 PO (12:26)
[2017-04-03] MEDS ORDERED: AMT50 PO (12:47)
[2017-04-03] MEDS ORDERED: ESCI10TA17 PO (14:26)
[2017-04-03] MEDS ORDERED: ROPI1TAB PO (14:48)
[2017-04-03] MEDS ORDERED: ASPI1TAB83 PO (16:44)
[2017-04-03] MEDS ORDERED: CLOP1TAB5 PO (17:26)
[2017-04-03] MEDS ORDERED: LPT10 PO (17:35)
[2017-08-06] MEDS ORDERED: CLOP1TAB15 PO (08:41)
== END 2017-01-24 16:38 | disposition home or self-care (01) ==
LOC: C.EDB 10:33 → C.EDC 16:38
DX: M54.5 Low back pain (principal); R10.9 Unspecified abdominal pain; N39.0 Urinary tract infection, site not specified; M79.89 Other specified soft tissue disorders; F41.9 Anxiety disorder, unspecified; I10 Essential (primary) hypertension; N18.3 Chronic kidney disease, stage 3 (moderate); J44.9 Chronic obstructive pulmonary disease, unspecified; Z86.73 Personal history of transient ischemic attack (TIA), and cerebral infarction without residual deficits; F32.9 Major depressive disorder, single episode, unspecified; E11.9 Type 2 diabetes mellitus without complications; E78.5 Hyperlipidemia, unspecified; Z98.51 Tubal ligation status; Z87.891 Personal history of nicotine dependence

== ENCOUNTER 2017-04-03 18:00 | Emergency (ER) | payer OTHER, MEDICARE ==
[~2017-04-03] VITALS: Ht 152.4 cm; Wt 75.0 kg
[~2017-04-03 18:00] MED LIST changes: -ACET-1228 PO; -ALBUAER2 INH; +AMT50 PO; -ARFO15NE INH; +ASPI1TAB83 PO; -BUDE0.5S INH; +CETI10TA84 PO; +CLOP1TAB5 PO; -CPR250 PO; +ESCI10TA17 PO; -FLUT0.15 NAE; -GABA-112 PO; +GABA1CAP5 PO; -INSDGI SC; -INSU1INJ2 SC; +INSU70IN2 SC; +LORA-741 PO; +LPT10 PO; -MAGN400T24 PO; +MAGN400T6 PO; -METO100T14 PO; +METO50TA16 PO; +MIRT30TA3 PO; -NVLG SC; +PANC6000 PO; -PANT40TA PO; +PRLSR20 PO; +PRT/20 PO; +ROPI1TAB PO; +TRAM-10 PO; +TRAZ50TA35 PO
[2017-04-03 18:04] VITALS: TEMP 36.5; Ht 152.4 cm; Wt 75.0 kg
[2017-04-03] MEDS ORDERED: DOCU-94 PO (18:41)
[2017-04-03 18:46] LABS: HEMATOCRIT 38.8 % (37-47); MEAN CORPUSCULAR HEMOGLOBIN 30.9 pg (25-34); MEAN CORPUSCULAR HGB CONC 35.6 g/dl (32-36); MEAN PLATELET VOLUME 9.3 fL (7.4-10.4); PLATELET COUNT 188 K/uL (130-400); RED BLOOD COUNT 4.46 M/uL (4.2-5.4); WHITE BLOOD COUNT 7.57 K/uL (4.8-10.8)
[2017-04-03 18:53] LABS: PARTIAL THROMBOPLASTIN RATIO 0.9; PROTHROMBIN TIME (PATIENT) 10.5 SECONDS (9.0-12.0)
[2017-04-03 19:09] LABS: ALB/GLOB RATIO 1.1 (0.9-2); BUN/CREATININE RATIO 11.8 (10-20); CALCIUM 9.1 mg/dl (8.5-10.1); CREATININE 1.6 mg/dl (0.60-1.20); POTASSIUM 4.4 mmol/L (3.5-5.1)
[2017-04-03 19:29] LABS: BETA-HYDROXYBUTYRATE 1.38 mg/dL (0.2-2.81)
[2017-04-03] MEDS ORDERED: NovoLIN-R INSULIN PER UNIT CHARGE SC STA (19:34)
--- NOTE | 2017-04-03 19:38 | DIAGNOSTIC IMAGING REPORT ---
RIGHT LOWER EXTREMITY VENOUS DOPPLER HISTORY: Right leg pain. COMPARISON STUDY: None. FINDINGS: There is normal compressibility, flow, and augmentation within the right lower extremity deep venous system. IMPRESSION: No DVT within the right lower extremity Electronically signed by: Rogerio Parker M.D. 04/03/2017 7:37 PM Dictated Date/Time: 04/03/2017 7:37 PM
[2017-04-03] MEDS ORDERED: NVLG SQ (19:41)
[2017-04-03] MEDS ORDERED: INSDGI SQ (19:41)
--- NOTE | 2017-04-03 19:51 | EMERGENCY ROOM VISIT NOTE ---
ED Visit Note First contact with patient: 18:08 This Patient was discussed with the physician Tenderizer Tender, Gisela Anguiano PA-C. The pertinent historical and physical exam findings were confirmed. I agree with the studies ordered and with the interpretations of these studies. I agree with the disposition and care plan.
--- NOTE | 2017-04-03 20:32 | DIAGNOSTIC IMAGING REPORT ---
RIGHT HIP 2 VIEWS HISTORY: RIGHT, THIGH PAIN Right COMPARISON: None. FINDINGS: There is no fracture or dislocation. Vascular calcifications are noted. The visualized pelvic bones are intact. No radiopaque foreign bodies. IMPRESSION: No fracture or dislocation within the right hip. Electronically signed by: Rogerio Parker M.D. 04/03/2017 8:31 PM Dictated Date/Time: 04/03/2017 8:30 PM
--- NOTE | 2017-04-03 20:41 | EMERGENCY ROOM VISIT NOTE ---
ED Visit Note First contact with patient: 18:08 CHIEF COMPLAINT: Right thigh pain 2 weeks HISTORY OF PRESENT ILLNESS: Patient is a 76-year-old white female who presents emergency department for evaluation of pain in her right thigh 2 weeks. She notes a constant, dull, throbbing pain, both medially running up into her groin , and laterally to just below her buttocks. She states that on occasion it becomes warm to the touch and firm. She describes it as a pinching pain at times. It has been constant for 2 weeks. It does not go below the knee. She has applied heat to the area, elevated the leg and taken Tylenol. She was just seen by her primary care provider about 4 days ago who recommended that heat and Tylenol. She did not think that the patient needed an ultrasound at that time. She denies any injury to the leg, no prolonged periods of immobilization or long car trips. She has never had symptoms similar to this previously. She denies that the pain radiates into her buttock or her low back. No numbness, tingling or weakness into the right lower extremity. There is no personal or family history of a DVT. She is on aspirin and Plavix chronically. She denies any fever. No symptoms in the left leg. She denies any chest pain, palpitations or shortness of breath. REVIEW OF SYSTEMS: Review of systems as per HPI. All other systems reviewed were negative. 10 systems reviewed. PMH: Electronic medical records are reviewed and summarized as above/below. See Problem List. SOCIAL HISTORY: Patient lives at home. PHYSICAL EXAM: Vital Signs: Reviewed Nurse's notes. CONSTITUTIONAL: Patient is a well-appearing 76-year-old white female who is awake and alert and in no acute distress. HEART: Regular rate and rhythm, holosystolic murmur noted. LUNGS: Clear to auscultation and breath sounds equal, no wheezes, rales, or rhonchi. EXTREMITIES: Examination of the right lower extremity does not demonstrate any erythema, increased warmth or induration. No pitting edema, cyanosis or palpable cords noted. The patient has diffuse tenderness to palpation of the right thigh. Slight swelling is noted. There is no knee joint effusion palpable, but slight extra-articular soft tissue swelling is noted. The calf is soft and nontender. Distal pulses are easily palpable. The right lower extremity is neurovascularly intact. The range of motion is full. Hip range of motion is full. Negative straight leg raise testing bilaterally. Lower extremity DTRs are equal and symmetrical. EMERGENCY DEPARTMENT COURSE: The patient was seen and evaluated as above. Her old records are reviewed. CBC, coags and CMP were drawn. Ultrasound of the right lower extremity was negative for DVT. The patient was hyperglycemic with a blood sugar greater than 400. This was discussed with the patient when she returned from ultrasound. She has had problems with her blood sugar control recently. She just saw her doctor 4 days ago. Per her sliding scale coverage, she should use 24 units of Regular Insulin for blood sugar greater than 400 after her dinner. She was offered and accepted the subcutaneous insolent and here. X-rays of the right hip were obtained, no evidence for acute fracture, no significant arthritic changes were noted. BSG was rechecked and was 347. The patient was comfortable with this and will follow her previously outlined insolent schedule. Patient then reported that she had been visiting with her infant grandson recently and he had been standing and jumping on her right leg, but she thought that her pain actually preceded this. Differential diagnoses entertained included DVT, superficial thrombophlebitis, cellulitis, compartment syndrome, referred pain from hip DJD, lumbar radiculopathy, among others. The patient was encouraged to use ednu-ixi-nbulbxa medications including ibuprofen and Tylenol, and follow closely with her PCP for further care and evaluation. She is understanding of this and was agreeable. She is discharged to home in good condition. RIGHT LOWER EXTREMITY VENOUS DOPPLER HISTORY: Right leg pain. COMPARISON STUDY: None. FINDINGS: There is normal compressibility, flow, and augmentation within the right lower extremity deep venous system. IMPRESSION: No DVT within the right lower extremity RIGHT HIP 2 VIEWS HISTORY: RIGHT, THIGH PAIN Right COMPARISON: None. FINDINGS: There is no fracture or dislocation. Vascular calcifications are noted. The visualized pelvic bones are intact. No radiopaque foreign bodies. IMPRESSION: No fracture or dislocation within the right hip. 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 (9) Depression Status: Chronic (10) Diabetes mellitus type 2 Status: Chronic (11) Diabetic neuropathy Status: Chronic (12) DKA (diabetic ketoacidoses) Status: Chronic (13) Dyslipidemia Status: Chronic (14) Esophageal dysmotility Status: Chronic (15) Fatty liver Status: Chronic (16) Gastroparesis Status: Chronic (17) Giant cell arteritis Status: Resolved (18) History of sleep apnea Status: Chronic (19) Insomnia Status: Chronic (20) Ischemic stroke Status: Resolved (21) Pancreatic divisum Status: Chronic (22) Sciatica Status: Chronic (23) TIA (transient ischemic attack) Status: Resolved Surgical Problems: (1) cataract surgery Permanent Comment: Right Status: Chronic (2) H/O esophagogastroduodenoscopy Permanent Comment: EGD/EUS 11/01/14- gastritis, hiatal hernia, normal amuplla, fatty infiltration of liver. 3 mm by 10 mm cystic lesion seen in pancreatic head , most consistent with intraductal papillary mucinous neoplasm based on EUS from 2011 Status: Resolved (3) History of - tubal ligation Status: Chronic (4) History of cholecystectomy Status: Chronic (5) S/P ERCP Permanent Comment: 05/03/15- minor duct sphincterotomy and pancreatic duct stent placement Status: Resolved (6) S/P ERCP Permanent Comment: 12/07/14- prior biliary endoscopic sphincterotomy appeared open. cholangiogram was normal. unable to cannulate pancreatic duct Status: Resolved (7) S/p fixation of left ankle fracture Status: Chronic Current/Historical Medications Scheduled Aspirin (Aspirin), 81 MG PO DAILY Atorvastatin (Atorvastatin Calcium), 10 MG PO QPM Cetirizine (Zyrtec), 10 MG PO DAILY Clopidogrel Bisulfate (Plavix), 75 MG PO QAM Escitalopram (Lexapro), 15 MG PO QAM Gabapentin (Neurontin), 400 MG PO BID Insulin Aspart (Novolog), SQ ACHS Insulin Glargine (Lantus), 75 UNITS SQ QPM Insulin Isophan/Regular (Novolin 70/30), 70 UNITS SC QA Losartan Potassium (Cozaar), 100 MG PO QAM Magnesium Oxide (Mag-Ox), 400 MG PO QAM Metoprolol Tartrate (Lopressor) (Lopressor), 50 MG PO BID Mirtazapine (Remeron), 30 MG PO HS Omeprazole (Prilosec), 40 MG PO QAM Pancrelipase (Lipase-Protease- (Creon), 6,000 UNITS PO QID Ropinirole Hydrochloride (Requip), 1 MG PO HS Trazodone Hcl (Trazodone), 50 MG PO HS Scheduled PRN Docusate Sodium (Colace), 100 MG PO BID PRN for Constipation Lorazepam (Ativan), 0.5 MG PO Q6H PRN for Anxiety Tramadol (Ultram), 50 MG PO Q6 PRN for Pain Allergies Coded Allergies: Iodinated Diagnostic Agents (Verified Allergy, Severe, RASH TO IVP DYE, NAUSEA, FAINTING, COUGHING, GAGGING, HEADACH, 12/04/16) Sulfa Antibiotics (Verified Allergy, Severe, HIVES, FACIAL AND ARM SWELLING, 12/04/16) Cerivastatin (Verified Allergy, Intermediate, HIVES, 12/04/16) Codeine (Verified Allergy, Intermediate, "PRICKLY RASH", 12/04/16) Hydroxyzine (Verified Allergy, Intermediate, N/V, 12/04/16) Latex1 -Allergic Contact Dermititis (Verified Allergy, Intermediate, DERMATITIS-PT TOLERATED A LATEX CATHETER 03/26/08, 12/04/16) Diphenhydramine (Verified Allergy, Mild, RASH; SLEEPINESS WITH "PHARBEDRYL ", 12/04/16) Loratadine (Verified Allergy, Mild, HIVES, 12/04/16) Sulfamethoxazole w/Trimethoprim (Verified Allergy, Mild, RASH, 12/04/16) Prednisone (Unverified Allergy, Unknown, unknown, 12/04/16) Tetanus Toxoid (Verified Adverse Reaction, Intermediate, SWELLING AT INJECTION SITE, 12/04/16) Alprazolam (Verified Adverse Reaction, Unknown, "SLEEPY STUPER", 12/04/16) Metformin (Verified Adverse Reaction, Unknown, DIARRHEA, 12/04/16) Morphine (Verified Adverse Reaction, Unknown, VOMITING, 12/04/16) Simvastatin (Verified Adverse Reaction, Unknown, COUGH, "DISCOMFORT", 12/04) Vital Signs Date Time Temp Pulse Resp B/P Pulse Ox O2 Delivery O2 Flow Rate FiO2 04/03/17 19:49 89 20 197/90 97 Room Air 04/03/17 18:04 36.5 105 18 197/82 97 Room Air Laboratory Results 04/03/17 18:30 04/03/17 18:30 Test 04/03/17 18:30 04/03/17 20:43 Red Blood Count 4.46 M/uL (4.2-5.4) Mean Corpuscular Volume 87.0 fL (80-100) Mean Corpuscular Hemoglobin 30.9 pg (25-34) Mean Corpuscular Hemoglobin Concent 35.6 g/dl (32-36) RDW Standard Deviation 41.0 fL (36.4-46.3) RDW Coefficient of Variation 12.8 % (11.5-14.5) Mean Platelet Volume 9.3 fL (7.4-10.4) Prothrombin Time 10.5 SECONDS (9.0-12.0) Prothromb Time International Ratio 1.0 (0.9-1.1) Activated Partial Thromboplast Time 23.1 SECONDS (21.0-31.0) Partial Thromboplastin Ratio 0.9 Anion Gap 9.0 mmol/L (3-11) Est Creatinine Clear Calc Drug Dose 27.1 ml/min Estimated GFR () 35.9 Estimated GFR (Non- 31.0 BUN/Creatinine Ratio 11.8 (10-20) Calcium Level 9.1 mg/dl (8.5-10.1) Total Bilirubin 0.2 mg/dl (0.2-1) Aspartate Amino Transf (AST/SGOT) 43 U/L (15-37) Alanine Aminotransferase (ALT/SGPT) 48 U/L (12-78) Alkaline Phosphatase 102 U/L (45-117) Total Protein 7.0 gm/dl (6.4-8.2) Albumin 3.6 gm/dl (3.4-5.0) Globulin 3.4 gm/dl (2.5-4.0) Albumin/Globulin Ratio 1.1 (0.9-2) Beta-Hydroxybutyric Acid 1.38 mg/dL (0.2-2.81) Bedside Glucose 347 mg/dl (70-90) Medications Administered Medications (Trade) Dose Ordered Sig/Rosetta Route Start Time Stop Time Status Last Admin Dose Admin Insulin Human Regular (novoLIN-R U-100 PER UNIT) 24 units NOW STAT SC 04/03/17 19:34 04/03/17 19:36 DC 04/03/17 19:46 24 UNITS Departure Information Impression Primary Impression: Right thigh pain Referrals Colleen Jefferson D.O. (PCP) Patient Instructions My [facility] Additional Instructions Ibuprofen(Motrin, Advil) may be used for fever or pain. Use 600mg every six hours as needed. Take with food. Avoid using more than 2400mg in a 24 hour period. Do not use 2400mg per day for more than three consecutive days without physician direction. Prolonged inappropriate use can lead to stomach upset or ulcers. This medication can be taken if you need to drive, work, or perform activities which may be dangerous when taking narcotic pain medication. (AND/OR) Acetaminophen(Tylenol) may be used for fever or pain. Use 1000mg every six hours as needed. Avoid using more than 3000mg in a 24 hour period. This medication can be taken if you need to drive, work, or perform activities which may be dangerous when taking narcotic pain medication. Rest and elevate your injury. Continue current medications. Return to the ER immediately for any numbness, tingling, severe pain, extreme swelling in the extremity or as needed. Follow-up with your primary care physician next week for further care and evaluation.
[2017-04-03 21:20] VITALS: BP 176/90; PULSE 87; O2SAT 97
[2017-08-06] MEDS ORDERED: CLOP1TAB15 PO (08:41)
[2017-09-08] MEDS ORDERED: ESCI1TAB6 PO (08:19)
[2017-09-08] MEDS ORDERED: ESCI10TA17 PO (08:19)
[2017-09-08] MEDS ORDERED: OMEP40CA41 PO (08:19)
[2017-09-18] MEDS ORDERED: CIPR-255 PO (10:57)
[2017-09-18] MEDS ORDERED: PANT40TA PO (10:57)
[2017-09-18] MEDS ORDERED: HYG25 PO (10:57)
[2017-09-18] MEDS ORDERED: BNT10 PO (10:57)
[2017-09-18] MEDS ORDERED: AMLO-114 PO (10:57)
[2017-10-08] MEDS ORDERED: BENZ100C7 PO (10:28)
[2017-10-08] MEDS ORDERED: IPRASOL4 INH ×2 (10:28→10:47)
[2017-10-08] MEDS ORDERED: LVQ250 PO (10:28)
[2017-10-08] MEDS ORDERED: BUDE1SUS INH ×2 (10:28→10:47)
[2017-10-08] MEDS ORDERED: PRD10 PO (10:30)
== END 2017-04-03 21:31 | disposition home or self-care (01) ==
LOC: C.EDB 18:01 → C.EDD 21:31
DX: M79.651 Pain in right thigh (principal); Z79.82 Long term (current) use of aspirin; Z79.01 Long term (current) use of anticoagulants; F41.9 Anxiety disorder, unspecified; E11.65 Type 2 diabetes mellitus with hyperglycemia; N18.3 Chronic kidney disease, stage 3 (moderate); I12.9 Hypertensive chronic kidney disease with stage 1 through stage 4 chronic kidney disease, or unspecified chronic kidney disease; K86.1 Other chronic pancreatitis; F32.9 Major depressive disorder, single episode, unspecified; E11.43 Type 2 diabetes mellitus with diabetic autonomic (poly)neuropathy; E78.5 Hyperlipidemia, unspecified; K76.0 Fatty (change of) liver, not elsewhere classified; G47.00 Insomnia, unspecified; Z86.73 Personal history of transient ischemic attack (TIA), and cerebral infarction without residual deficits; Z98.41 Cataract extraction status, right eye; Z98.51 Tubal ligation status; Z90.49 Acquired absence of other specified parts of digestive tract; Z79.4 Long term (current) use of insulin

== ENCOUNTER 2017-04-13 12:27 | Emergency (ER) | payer OTHER, MEDICARE ==
[~2017-04-13] VITALS: Ht 152.4 cm; Wt 75.9 kg
[~2017-04-13 12:27] MED LIST changes: -AMT50 PO; +DOCU-94 PO; +INSDGI SQ; +NVLG SQ
[2017-04-13 12:36] VITALS: TEMP 36.7; O2SAT 98; Ht 152.4 cm; Wt 75.9 kg
[2017-04-13] MEDS ORDERED: INSU70IN2 SC (12:46)
[2017-04-13] MEDS ORDERED: BENZ100C84 PO (12:46)
[2017-04-13] MEDS ORDERED: PRD/1 PO (12:46)
[2017-04-13] MEDS ORDERED: METHYLPREDNISOLONE 125 MG VIAL IV STA (13:45)
[2017-04-13] MEDS ORDERED: ALBUT/IPRATROP 3MG/0.5MG NEB 3 ML VIAL INH ONE (13:45)
[2017-04-13] MEDS ORDERED: LORAZEPAM 2 MG/ML 1 ML VIAL IV STA (13:48)
[2017-04-13 13:49] VITALS: PULSE 83; O2SAT 99
--- NOTE | 2017-04-13 13:53 | EMERGENCY ROOM VISIT NOTE ---
History Report prepared by Coral: Mango Leija Under the Supervision of: Dr. Jyoti Armstrong M.D. First contact with patient: 13:41 Chief Complaint: SHORTNESS OF BREATH Stated Complaint: SHORTNESS OF BREATH Nursing Triage Summary: pt c/o sob started 1 week ago dx with copd exercerbation given prednisone last thursday. seen here on thursday for same sx. returning today c/o sob has cough using tessalon pearls no relief. pt c/o chest burning from cough. bsg has been fluctuating. History of Present Illness The patient is a 76 year old female who presents to the Emergency Room with complaints of worsening shortness of breath that started a week ago. The patient says that she went to her doctor's office when the symptoms started, and was diagnosed with COPD exacerbation. She was given Prednisone 10 mg tablets to take 4 times per day. The patient has been compliant with the Prednisone, but is not getting any better. She was seen here 2 days ago for the symptoms. The patient also has been having a cough. She has been using Tessalon pearls with no relief. The patient notes that around 0230 this morning, her blood sugar went down to 42 and she was sweating a lot. The patient had her insulin bumped up. She has no history of blood clots. The patient adds that she has been having leg and groin pain for the past couple weeks. Source of History: patient Onset: A week ago Position: other (global - shortness of breath) Timing: worsening Associated Symptoms: + cough, + diaphoresis Note: Associated symptoms: Blood sugar down to 42 this morning. Has been having leg and groin pain for past couple weeks. Review of Systems See HPI for pertinent positives & negatives. A total of 10 systems reviewed and were otherwise negative. 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 (11) Depression (12) Diabetes mellitus type 2 (13) Diabetic neuropathy (14) DKA (diabetic ketoacidoses) (15) Dyslipidemia (16) Esophageal dysmotility (17) Fatty liver (18) Gastroparesis (19) Giant cell arteritis (20) History of sleep apnea (21) Hypertensive urgency (22) Insomnia (23) Ischemic stroke (24) Pancreatic divisum (25) Sciatica (26) TIA (transient ischemic attack) Surgical Problems: (1) cataract surgery (2) H/O esophagogastroduodenoscopy (3) History of - tubal ligation (4) History of cholecystectomy (5) S/P ERCP (6) S/P ERCP (7) S/p fixation of left ankle fracture Family History Diabetes mellitus GRANDMOTHER MOTHER FH: Parkinson's disease Hypertension Stroke GRANDFATHER Social History Smoking Status: Former Smoker Alcohol Use: none Drug Use: none Marital Status: Housing Status: lives alone Occupation Status: retired Current/Historical Medications Scheduled Aspirin (Aspirin), 81 MG PO DAILY Atorvastatin (Atorvastatin Calcium), 10 MG PO QPM Cetirizine (Zyrtec), 10 MG PO DAILY Clopidogrel Bisulfate (Plavix), 75 MG PO QAM Escitalopram (Lexapro), 15 MG PO QAM Gabapentin (Neurontin), 400 MG PO BID Insulin Aspart (Novolog), SQ ACHS Insulin Isophan/Regular (Novolin 70/30), 70 UNITS SC QAM Insulin Isophan/Regular (Novolin 70/30), 85 UNITS SC QPM Losartan Potassium (Cozaar), 100 MG PO QAM Magnesium Oxide (Mag-Ox), 400 MG PO QAM Metoprolol Tartrate (Lopressor) (Lopressor), 50 MG PO BID Mirtazapine (Remeron), 30 MG PO HS Omeprazole (Prilosec), 40 MG PO QAM Pancrelipase (Lipase-Protease- (Creon), 6,000 UNITS PO QID Prednisone (Prednisone), Unknown Dose PO DIRECTED Ropinirole Hydrochloride (Requip), 1 MG PO HS Trazodone Hcl (Trazodone), 50 MG PO HS Scheduled PRN Benzonatate (Tessalon Perles), Unknown Dose PO TID PRN for Cough Docusate Sodium (Colace), 100 MG PO BID PRN for Constipation Hydrocodone W/ Homatropine (Hycodan 5/1.5MG 5 Ml), 5-10 ML PO Q4H PRN for Cough Lorazepam (Ativan), 0.5 MG PO Q6H PRN for Anxiety Tramadol (Ultram), 50 MG PO Q6 PRN for Pain Allergies Coded Allergies: Iodinated Diagnostic Agents (Verified Allergy, Severe, RASH TO IVP DYE, NAUSEA, FAINTING, COUGHING, GAGGING, HEADACH, 12/04/16) Sulfa Antibiotics (Verified Allergy, Severe, HIVES, FACIAL AND ARM SWELLING, 12/04/16) Cerivastatin (Verified Allergy, Intermediate, HIVES, 12/04/16) Codeine (Verified Allergy, Intermediate, "PRICKLY RASH", 12/04/16) Hydroxyzine (Verified Allergy, Intermediate, N/V, 12/04/16) Latex1 -Allergic Contact Dermititis (Verified Allergy, Intermediate, DERMATITIS-PT TOLERATED A LATEX CATHETER 03/26/08, 12/04/16) Diphenhydramine (Verified Allergy, Mild, RASH; SLEEPINESS WITH "PHARBEDRYL ", 12/04/16) Loratadine (Verified Allergy, Mild, HIVES, 12/04/16) Sulfamethoxazole w/Trimethoprim (Verified Allergy, Mild, RASH, 12/04/16) Prednisone (Unverified Allergy, Unknown, unknown, 12/04/16) Tetanus Toxoid (Verified Adverse Reaction, Intermediate, SWELLING AT INJECTION SITE, 12/04/16) Alprazolam (Verified Adverse Reaction, Unknown, "SLEEPY STUPER", 12/04/16) Metformin (Verified Adverse Reaction, Unknown, DIARRHEA, 12/04/16) Morphine (Verified Adverse Reaction, Unknown, VOMITING, 12/04/16) Simvastatin (Verified Adverse Reaction, Unknown, COUGH, "DISCOMFORT", 12/04) Physical Exam Vital Signs Date Time Temp Pulse Resp B/P Pulse Ox O2 Delivery O2 Flow Rate FiO2 04/13/17 16:38 96 18 152/66 98 04/13/17 15:52 98 18 133/62 98 Room Air 04/13/17 14:24 92 20 145/83 100 Nebulizer 8.0 04/13/17 13:49 83 22 99 Room Air 04/13/17 13:29 79 20 150/84 99 Room Air 04/13/17 12:39 81 04/13/17 12:36 36.7 88 28 177/77 98 Room Air 04/13/17 12:36 98 Room Air Physical Exam Vital signs reviewed. General: Well-appearing 76 year old female, in no significant distress. HEENT: No scleral icterus, PERRLA, neck supple. Atraumatic. Cardiovascular: Regular rate and rhythm, no extra sounds. Pulmonary: Forced expiratory wheezes, increased work of breathing. O2 saturations are normal, on room air. Abdomen: Soft, nontender, nondistended, positive bowel sounds. Musculoskeletal: Atraumatic, no peripheral edema. Neurologic: Patient awake alert and oriented x 3, full strength in all 4 extremities. Cranial nerves 2 through 12 grossly intact. Skin: Warm, dry, no rash Medical Decision & Procedures ER Provider Diagnostic Interpretation: X-ray results as stated below per interpretation by me and the radiologist: CHEST ONE VIEW PORTABLE CLINICAL HISTORY: Shortness of breath. COPD. COMPARISON STUDY: Chest radiograph November 29, 2016. FINDINGS: A right internal jugular [id number] is in place. There is no pneumothorax or pleural effusion. Lung volumes are diminished. Mild left basilar opacity is unchanged and favors atelectasis. IMPRESSION: No change in appearance of the chest. Diminished lung volumes with left basilar opacity which favors atelectasis. Electronically signed by: Brijesh Jeter M.D. 04/13/2017 2:04 PM Dictated Date/Time: 04/13/2017 2:02 PM Laboratory Results 04/13/17 12:40 Red Blood Count 4.75, Mean Corpuscular Volume 87.6, Mean Corpuscular Hemoglobin 31.4, Mean Corpuscular Hemoglobin Concent 35.8, Mean Platelet Volume 9.4, Neutrophils (%) (Auto) 52.6, Lymphocytes (%) (Auto) 38.3, Monocytes (%) (Auto) 7.9, Eosinophils (%) (Auto) 0.3, Basophils (%) (Auto) 0.5, Neutrophils # (Auto) 5.45, Lymphocytes # (Auto) 3.96, Monocytes # (Auto) 0.82, Eosinophils # (Auto) 0.03, Basophils # (Auto) 0.05 04/13/17 12:40 Test 04/13/17 12:40 04/13/17 13:58 White Blood Count 10.35 K/uL (4.8-10.8) Red Blood Count 4.75 M/uL (4.2-5.4) Hemoglobin 14.9 g/dL (12.0-16.0) Hematocrit 41.6 % (37-47) Mean Corpuscular Volume 87.6 fL (80-100) Mean Corpuscular Hemoglobin 31.4 pg (25-34) Mean Corpuscular Hemoglobin Concent 35.8 g/dl (32-36) Platelet Count 223 K/uL (130-400) Mean Platelet Volume 9.4 fL (7.4-10.4) Neutrophils (%) (Auto) 52.6 % Lymphocytes (%) (Auto) 38.3 % Monocytes (%) (Auto) 7.9 % Eosinophils (%) (Auto) 0.3 % Basophils (%) (Auto) 0.5 % Neutrophils # (Auto) 5.45 K/uL (1.4-6.5) Lymphocytes # (Auto) 3.96 K/uL (1.2-3.4) Monocytes # (Auto) 0.82 K/uL (0.11-0.59) Eosinophils # (Auto) 0.03 K/uL (0-0.5) Basophils # (Auto) 0.05 K/uL (0-0.2) RDW Standard Deviation 42.7 fL (36.4-46.3) RDW Coefficient of Variation 13.3 % (11.5-14.5) Immature Granulocyte % (Auto) 0.4 % Immature Granulocyte # (Auto) 0.04 K/uL (0.00-0.02) Anion Gap 12.0 mmol/L (3-11) Est Creatinine Clear Calc Drug Dose 33.5 ml/min Estimated GFR () 46.2 Estimated GFR (Non- 39.8 BUN/Creatinine Ratio 20.0 (10-20) Calcium Level 9.0 mg/dl (8.5-10.1) Magnesium Level 2.3 mg/dl (1.8-2.4) Total Bilirubin 0.3 mg/dl (0.2-1) Direct Bilirubin < 0.1 mg/dl (0-0.2) Aspartate Amino Transf (AST/SGOT) 29 U/L (15-37) Alanine Aminotransferase (ALT/SGPT) 52 U/L (12-78) Alkaline Phosphatase 104 U/L (45-117) Total Creatine Kinase 76 U/L (26-192) Creatine Kinase MB 2.0 ng/ml (0.5-3.6) Creatine Kinase MB Ratio 2.6 (0-3.0) Total Protein 7.9 gm/dl (6.4-8.2) Albumin 3.9 gm/dl (3.4-5.0) Bedside Troponin I 0.000 ng/ml (0-0.045) Laboratory results per my review. Medications Administered Medications (Trade) Dose Ordered Sig/Rosetta Route Start Time Stop Time Status Last Admin Dose Admin Albuterol/ Ipratropium (Duoneb) 12 ml ONE ONCE INH 04/13/17 13:45 04/13/17 13:48 DC 04/13/17 13:45 12 ML Methylprednisolone Sodium Succinate (Solu-Medrol IV) 60 mg NOW STAT IV 04/13/17 13:45 04/13/17 13:48 DC 04/13/17 14:21 60 MG Lorazepam (Ativan Inj) 0.5 mg NOW STAT IV 04/13/17 13:48 04/13/17 13:50 DC 04/13/17 14:22 0.5 MG ECG Indication: SOB/dyspnea Rate (beats per minute): 83 Rhythm: normal sinus Findings: no acute ischemic change, no ectopy ED Course 1344: Past medical records reviewed. The patient was evaluated in room B3B. A complete history and physical examination was performed. 1345: Ordered Solu-Medrol IV 60 mg IV, Duoneb 12 ml INH. 1348: Ordered Ativan Inj 0.5 mg IV. 1612: I reevaluated the patient and she was resting comfortably. The patient verbally expressed understanding and agreement of the treatment plan. The patient will be discharged. Medical Decision Differential diagnosis: Etiologies such as infections, reactive airway disease, pneumonia, pneumothorax , COPD, CHF, cardiac ischemia, pulmonary embolism, musculoskeletal, gastrointestinal, as well as others were entertained. This patient was evaluated and appeared to be in no significant distress. The patient has some increased work of breathing, oxygen saturations are noted to be normal. Lung sounds are notable for forced expiratory wheezes. Patient was given an hour-long DuoNeb treatment. She was given IV Solu-Medrol and 0.5 mg of IV Ativan. Chest x-ray was obtained and is given for acute findings, there is some left basilar atelectasis. The patient is currently taking prednisone and was advised to continue. She will continue her nebulizers every 4 hours as needed. The patient was given a prescription for Hycodan syrup to be taken at night. She will follow-up with her physician this week for reevaluation and return to the ER for worsening of symptoms or any medical concerns. Impression Primary Impression: COPD exacerbation Scribe Attestation The scribe's documentation has been prepared under my direction and personally reviewed by me in its entirety. I confirm that the note above accurately reflects all work, treatment, procedures, and medical decision making performed by me. Departure Information Dispostion Home / Self-Care Prescriptions Hydrocodone W/ Homatropine (HYCODAN 5/1.5MG 5 ML) 1 Syp Syp 5-10 ML PO Q4H Y for Cough, #100 ML Prov: Jyoti Armstrong M.D. 04/13/17 Referrals Colleen Jefferson D.O. (PCP) Forms HOME CARE DOCUMENTATION FORM, IMPORTANT VISIT INFORMATION Patient Instructions My [facility] Additional Instructions Diagnosis: COPD exacerbation Continue prednisone as prescribed. Albuterol neb every 4 hours as needed. Hycodan syrup 1-2 tsp at night for cough, do not drive on this medication. Return to emergency for worsening of symptoms or any medical concerns.
[2017-04-13 14:00] LABS: BASO % 0.5 %; BASO ABS # 0.05 K/uL (0-0.2); COMPLETE YES; EOS % 0.3 %; HEMATOCRIT 41.6 % (37-47); IG% 0.4 %; LYMPH % 38.3 %; LYMPH ABS # 3.96 K/uL (1.2-3.4); MEAN CELL VOLUME 87.6 fL (80-100); MEAN CORPUSCULAR HEMOGLOBIN 31.4 pg (25-34); MEAN CORPUSCULAR HGB CONC 35.8 g/dl (32-36); MEAN PLATELET VOLUME 9.4 fL (7.4-10.4); MONO % 7.9 %; NEUT % 52.6 %; PLATELET COUNT 223 K/uL (130-400); RED BLOOD COUNT 4.75 M/uL (4.2-5.4); WHITE BLOOD COUNT 10.35 K/uL (4.8-10.8)
--- NOTE | 2017-04-13 14:05 | DIAGNOSTIC IMAGING REPORT ---
CHEST ONE VIEW PORTABLE CLINICAL HISTORY: Shortness of breath. COPD. COMPARISON STUDY: Chest radiograph November 29, 2016. FINDINGS: A right internal jugular [id number] is in place. There is no pneumothorax or pleural effusion. Lung volumes are diminished. Mild left basilar opacity is unchanged and favors atelectasis. IMPRESSION: No change in appearance of the chest. Diminished lung volumes with left basilar opacity which favors atelectasis. Electronically signed by: Brijesh Jeter M.D. 04/13/2017 2:04 PM Dictated Date/Time: 04/13/2017 2:02 PM
[2017-04-13 14:14] LABS: ALT/SGPT 52 U/L (12-78); AST/SGOT 29 U/L (15-37); BLOOD UREA NITROGEN 26 mg/dl (7-18); CARBON DIOXIDE 24 mmol/L (21-32); CHLORIDE 107 mmol/L (98-107); GLUCOSE 127 mg/dl (70-99); MAGNESIUM 2.3 mg/dl (1.8-2.4); POTASSIUM 3.7 mmol/L (3.5-5.1); SODIUM 143 mmol/L (136-145)
[2017-04-13 14:20] LABS: ALKALINE PHOSPHATASE 104 U/L (45-117); CKMB/CK RATIO 2.6 (0-3.0)
[2017-04-13] MEDS ORDERED: HYDR5SYP11 PO (16:18)
[2017-04-13 16:38] VITALS: BP 152/66; PULSE 96; O2SAT 98
[2017-08-06] MEDS ORDERED: CLOP1TAB15 PO (08:41)
[2017-09-08] MEDS ORDERED: OMEP40CA41 PO (08:19)
[2017-09-08] MEDS ORDERED: ESCI1TAB6 PO (08:19)
[2017-09-08] MEDS ORDERED: ESCI10TA17 PO (08:19)
[2017-09-18] MEDS ORDERED: CIPR-255 PO (10:57)
[2017-09-18] MEDS ORDERED: PANT40TA PO (10:57)
[2017-09-18] MEDS ORDERED: BNT10 PO (10:57)
[2017-09-18] MEDS ORDERED: HYG25 PO (10:57)
[2017-09-18] MEDS ORDERED: AMLO-114 PO (10:57)
[2017-10-08] MEDS ORDERED: LVQ250 PO (10:28)
[2017-10-08] MEDS ORDERED: BENZ100C7 PO (10:28)
[2017-10-08] MEDS ORDERED: BUDE1SUS INH ×2 (10:28→10:47)
[2017-10-08] MEDS ORDERED: IPRASOL4 INH ×2 (10:28→10:47)
[2017-10-08] MEDS ORDERED: PRD10 PO (10:30)
== END 2017-04-13 16:40 | disposition home or self-care (01) ==
LOC: EDBD 12:27 → C.EDB 12:28
DX: J44.1 Chronic obstructive pulmonary disease with (acute) exacerbation (principal); M79.606 Pain in leg, unspecified; R10.30 Lower abdominal pain, unspecified; E11.649 Type 2 diabetes mellitus with hypoglycemia without coma; F41.9 Anxiety disorder, unspecified; I12.9 Hypertensive chronic kidney disease with stage 1 through stage 4 chronic kidney disease, or unspecified chronic kidney disease; E11.22 Type 2 diabetes mellitus with diabetic chronic kidney disease; N18.3 Chronic kidney disease, stage 3 (moderate); K86.1 Other chronic pancreatitis; E11.21 Type 2 diabetes mellitus with diabetic nephropathy; K86.2 Cyst of pancreas; E78.5 Hyperlipidemia, unspecified; K21.9 Gastro-esophageal reflux disease without esophagitis; K76.0 Fatty (change of) liver, not elsewhere classified; K31.84 Gastroparesis; G47.00 Insomnia, unspecified; Z98.51 Tubal ligation status; Z86.73 Personal history of transient ischemic attack (TIA), and cerebral infarction without residual deficits; Z87.891 Personal history of nicotine dependence; Z79.82 Long term (current) use of aspirin; Z79.4 Long term (current) use of insulin; Z83.3 Family history of diabetes mellitus; Z82.0 Family history of epilepsy and other diseases of the nervous system; Z82.49 Family history of ischemic heart disease and other diseases of the circulatory system; Z82.3 Family history of stroke

== ENCOUNTER 2017-08-25 15:54 | Inpatient (IN) | payer OTHER, MEDICARE ==
[~2017-08-25] VITALS: Ht 152.4 cm; Wt 75.2 kg
[~2017-08-25 15:54] MED LIST changes: +BENZ100C84 PO; +CLOP1TAB15 PO; -INSDGI SQ; +PRD/1 PO; -PRT/20 PO
[2017-08-25] MEDS ORDERED: NovoLIN-R INSULIN PER UNIT CHARGE IV STA (17:47)
[2017-08-25] MEDS ORDERED: NovoLIN-R INSULIN PER UNIT CHARGE SC STA (17:47)
[2017-08-25] MEDS ORDERED: SODIUM CHLORIDE 0.9% 1000ML 1,000 ML IV STA (17:47)
[2017-08-25] MEDS ORDERED: ONDANSETRON 8 MG/54 ML D5W IV STA (17:58)
[2017-08-25] MEDS ORDERED: HydrALAZINE HCL 20 MG/ML VIAL IV. STA (18:01)
[2017-08-25 18:18] LABS: BASO % 0.4 %; BASO ABS # 0.05 K/uL (0-0.2); COMPLETE YES; EOS % 3.9 %; HEMATOCRIT 41.6 % (37-47); IG% 0.3 %; LYMPH % 28.8 %; LYMPH ABS # 4.05 K/uL (1.2-3.4); MEAN CELL VOLUME 86.1 fL (80-100); MEAN CORPUSCULAR HEMOGLOBIN 30.8 pg (25-34); MEAN CORPUSCULAR HGB CONC 35.8 g/dl (32-36); MEAN PLATELET VOLUME 9.4 fL (7.4-10.4); MONO % 7.5 %; NEUT % 59.1 %; PLATELET COUNT 217 K/uL (130-400); RED BLOOD COUNT 4.83 M/uL (4.2-5.4); WHITE BLOOD COUNT 14.07 K/uL (4.8-10.8)
[2017-08-25 18:43] LABS: PARTIAL THROMBOPLASTIN RATIO 0.9; PROTHROMBIN TIME (PATIENT) 10.6 SECONDS (9.0-12.0)
--- NOTE | 2017-08-25 18:53 | DIAGNOSTIC IMAGING REPORT ---
SINGLE VIEW CHEST CLINICAL HISTORY: Change in mental status. Weakness. FINDINGS: An AP, portable, upright chest radiograph is compared to study dated 04/13/2017 and correlated with chest CT dated 11/24/2015. The examination is degraded by portable technique and patient rotation. A right internal jugular central venous infusion port is unchanged in position. The cardiomediastinal silhouette is unremarkable. There is atherosclerotic calcification of the thoracic aorta. There are low lung volumes and bibasilar atelectasis. Chronic interstitial thickening is similar to previous. No airspace consolidation or lower pleural effusion is identified. No pneumothorax is seen. The skeletal structures are osteopenic. The bony thorax is grossly intact. Cholecystectomy clips are present in the right upper quadrant. IMPRESSION: Low lung volumes with no acute cardiopulmonary abnormality. Electronically signed by: Ramez Blanchard M.D. 08/25/2017 6:51 PM Dictated Date/Time: 08/25/2017 6:50 PM
[2017-08-25 18:57] LABS: ALKALINE PHOSPHATASE 101 U/L (45-117); ALT/SGPT 26 U/L (12-78); AST/SGOT 22 U/L (15-37); BLOOD UREA NITROGEN 27 mg/dl (7-18); BUN/CREATININE RATIO 19.4 (10-20); CALCIUM 9.1 mg/dl (8.5-10.1); CARBON DIOXIDE 21 mmol/L (21-32); CHLORIDE 102 mmol/L (98-107); MAGNESIUM 1.9 mg/dl (1.8-2.4); POTASSIUM 3.8 mmol/L (3.5-5.1); SODIUM 135 mmol/L (136-145)
[2017-08-25 19:15] LABS: AMYLASE 77 U/L (25-115)
--- NOTE | 2017-08-25 20:46 | EMERGENCY ROOM VISIT NOTE ---
History Report prepared by Catyibrey: Joshua Packer Under the Supervision of: Dr. Ghassan Herrera D.O. First contact with patient: 17:44 Chief Complaint: HYPERGLYCEMIA Stated Complaint: BLOOD SUGAR @600 Nursing Triage Summary: blood sugars are in the 500-600 range. I took novolog R 20 units at 230 pm. My blood pressure has also been running high for the past 2 days. History of Present Illness The patient is a 76 year old female who presents to the Emergency Room with complaints of waxing and waning hyperglycemia beginning two day ago. She has a history of type II diabetes. She states that her blood sugar peaked at 590 today , and dropped as low as 52. The patient notes that she has been hypertensive. She also complains of headache, and nausea. She denies any fevers, or vomiting. The patient denies any recent travel. Source of History: patient Onset: Two days ago Symptom Intensity: BSG of 590 Quality: other (hyperglycemia) Timing: waxes/wanes Associated Symptoms: + headache, + nausea, No fevers, No vomiting Review of Systems See HPI for pertinent positives & negatives. A total of 10 systems reviewed and were otherwise negative. 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 (11) Depression (12) Diabetes mellitus type 2 (13) Diabetic neuropathy (14) DKA (diabetic ketoacidoses) (15) Dyslipidemia (16) Esophageal dysmotility (17) Fatty liver (18) Gastroparesis (19) Giant cell arteritis (20) History of sleep apnea (21) Hypertensive urgency (22) Insomnia (23) Ischemic stroke (24) Pancreatic divisum (25) Sciatica (26) TIA (transient ischemic attack) Surgical Problems: (1) cataract surgery (2) H/O esophagogastroduodenoscopy (3) History of - tubal ligation (4) History of cholecystectomy (5) S/P ERCP (6) S/P ERCP (7) S/p fixation of left ankle fracture Family History Diabetes mellitus GRANDMOTHER MOTHER FH: Parkinson's disease Hypertension Stroke GRANDFATHER Social History Smoking Status: Never Smoker Alcohol Use: none Drug Use: none Marital Status: Housing Status: lives alone Occupation Status: retired Current/Historical Medications Scheduled Aspirin (Aspirin), 81 MG PO DAILY Atorvastatin (Atorvastatin Calcium), 10 MG PO QPM Cetirizine (Zyrtec), 10 MG PO DAILY Clopidogrel (Plavix), 75 MG PO DAILY Clopidogrel Bisulfate (Plavix), 75 MG PO QAM Escitalopram (Lexapro), 15 MG PO QAM Gabapentin (Neurontin), 400 MG PO BID Insulin Aspart (Novolog), SQ ACHS Insulin Isophan/Regular (Novolin 70/30), 70 UNITS SC QAM Insulin Isophan/Regular (Novolin 70/30), 85 UNITS SC QPM Losartan Potassium (Cozaar), 100 MG PO QAM Magnesium Oxide (Mag-Ox), 400 MG PO QAM Metoprolol Tartrate (Lopressor) (Lopressor), 50 MG PO BID Mirtazapine (Remeron), 30 MG PO HS Omeprazole (Prilosec), 40 MG PO QAM Pancrelipase (Lipase-Protease- (Creon), 6,000 UNITS PO QID Prednisone (Prednisone), Unknown Dose PO DIRECTED Ropinirole Hydrochloride (Requip), 1 MG PO HS Trazodone Hcl (Trazodone), 50 MG PO HS Scheduled PRN Benzonatate (Tessalon Perles), Unknown Dose PO TID PRN for Cough Docusate Sodium (Colace), 100 MG PO BID PRN for Constipation Lorazepam (Ativan), 0.5 MG PO Q6H PRN for Anxiety Tramadol (Ultram), 50 MG PO Q6 PRN for Pain Allergies Coded Allergies: Iodinated Diagnostic Agents (Verified Allergy, Severe, RASH TO IVP DYE, NAUSEA, FAINTING, COUGHING, GAGGING, HEADACH, 08/06/17) Sulfa Antibiotics (Verified Allergy, Severe, HIVES, FACIAL AND ARM SWELLING, 08/06/17) Cerivastatin (Verified Allergy, Intermediate, HIVES, 08/06/17) Codeine (Verified Allergy, Intermediate, "PRICKLY RASH", 08/06/17) Hydroxyzine (Verified Allergy, Intermediate, N/V, 08/06/17) Latex1 -Allergic Contact Dermititis (Verified Allergy, Intermediate, DERMATITIS-PT TOLERATED A LATEX CATHETER 03/26/08, 08/06/17) Diphenhydramine (Verified Allergy, Mild, RASH; SLEEPINESS WITH "PHARBEDRYL ", 08/06/17) Loratadine (Verified Allergy, Mild, HIVES, 08/06/17) Sulfamethoxazole w/Trimethoprim (Verified Allergy, Mild, RASH, 08/06/17) Prednisone (Unverified Allergy, Unknown, unknown, 08/06/17) Tetanus Toxoid (Verified Adverse Reaction, Intermediate, SWELLING AT INJECTION SITE, 08/06/17) Alprazolam (Verified Adverse Reaction, Unknown, "SLEEPY STUPER", 08/06/17) Metformin (Verified Adverse Reaction, Unknown, DIARRHEA, 08/06/17) Morphine (Verified Adverse Reaction, Unknown, VOMITING, 08/06/17) Simvastatin (Verified Adverse Reaction, Unknown, COUGH, "DISCOMFORT", 08/06) Physical Exam Vital Signs Date Time Temp Pulse Resp B/P (MAP) Pulse Ox O2 Delivery O2 Flow Rate FiO2 08/25/17 20:15 107 22 176/81 97 Room Air 08/25/17 18:16 99 08/25/17 18:15 101 20 196/147 98 Room Air 08/25/17 15:57 36.8 112 18 200/93 98 Room Air Physical Exam CONSTITUTIONAL/VITAL SIGNS: Reviewed / noted above. GENERAL: Non-toxic in appearance. INTEGUMENTARY: Warm, dry, and [place]. HEAD: Normocephalic. EYES: without scleral icterus or trauma. ENT/OROPHARYNX: clear and moist. LYMPHADENOPATHY/NECK: Is supple without lymphadenopathy or meningismus. RESPIRATORY: Lungs clear and equal. CARDIOVASCULAR: Regular rate and rhythm. GI/ABDOMEN: Soft and nontender. No organomegaly or pulsatile mass. No rebound or guarding. Normal bowel sounds. EXTREMITIES: Warm and well perfused. BACK: No CVA tenderness. NEUROLOGICAL: Intact without focal deficits. PSYCHIATRIC: normal affect. MUSCULOSKELETAL: Normally developed with good muscle tone. Medical Decision & Procedures ER Provider Diagnostic Interpretation: X ray results and stated below per my interpretation and radiology interpretation. SINGLE VIEW CHEST FINDINGS: An AP, portable, upright chest radiograph is compared to study dated 04/13/2017 and correlated with chest CT dated 11/24/2015. The examination is degraded by portable technique and patient rotation. A right internal jugular central venous infusion port is unchanged in position. The cardiomediastinal silhouette is unremarkable. There is atherosclerotic calcification of the thoracic aorta. There are low lung volumes and bibasilar atelectasis. Chronic interstitial thickening is similar to previous. No airspace consolidation or lower pleural effusion is identified. No pneumothorax is seen. The skeletal structures are osteopenic. The bony thorax is grossly intact. Cholecystectomy clips are present in the right upper quadrant. IMPRESSION: Low lung volumes with no acute cardiopulmonary abnormality. Electronically signed by: Ramez Blanchard M.D. 08/25/2017 6:51 PM Laboratory Results 08/25/17 17:50 Red Blood Count 4.83, Mean Corpuscular Volume 86.1, Mean Corpuscular Hemoglobin 30.8, Mean Corpuscular Hemoglobin Concent 35.8, Mean Platelet Volume 9.4, Neutrophils (%) (Auto) 59.1, Lymphocytes (%) (Auto) 28.8, Monocytes (%) (Auto) 7.5, Eosinophils (%) (Auto) 3.9, Basophils (%) (Auto) 0.4, Neutrophils # (Auto) 8.32, Lymphocytes # (Auto) 4.05, Monocytes # (Auto) 1.06, Eosinophils # (Auto) 0.55, Basophils # (Auto) 0.05 08/25/17 17:50 Test 08/25/17 16:00 08/25/17 17:47 08/25/17 17:50 Bedside Glucose 528 mg/dl (70-90) White Blood Count 14.07 K/uL (4.8-10.8) Red Blood Count 4.83 M/uL (4.2-5.4) Hemoglobin 14.9 g/dL (12.0-16.0) Hematocrit 41.6 % (37-47) Mean Corpuscular Volume 86.1 fL (80-100) Mean Corpuscular Hemoglobin 30.8 pg (25-34) Mean Corpuscular Hemoglobin Concent 35.8 g/dl (32-36) Platelet Count 217 K/uL (130-400) Mean Platelet Volume 9.4 fL (7.4-10.4) Neutrophils (%) (Auto) 59.1 % Lymphocytes (%) (Auto) 28.8 % Monocytes (%) (Auto) 7.5 % Eosinophils (%) (Auto) 3.9 % Basophils (%) (Auto) 0.4 % Neutrophils # (Auto) 8.32 K/uL (1.4-6.5) Lymphocytes # (Auto) 4.05 K/uL (1.2-3.4) Monocytes # (Auto) 1.06 K/uL (0.11-0.59) Eosinophils # (Auto) 0.55 K/uL (0-0.5) Basophils # (Auto) 0.05 K/uL (0-0.2) RDW Standard Deviation 40.2 fL (36.4-46.3) RDW Coefficient of Variation 12.8 % (11.5-14.5) Immature Granulocyte % (Auto) 0.3 % Immature Granulocyte # (Auto) 0.04 K/uL (0.00-0.02) Prothrombin Time 10.6 SECONDS (9.0-12.0) Prothromb Time International Ratio 1.0 (0.9-1.1) Activated Partial Thromboplast Time 24.6 SECONDS (21.0-31.0) Partial Thromboplastin Ratio 0.9 Anion Gap 12.0 mmol/L (3-11) Est Creatinine Clear Calc Drug Dose 30.5 ml/min Estimated GFR () 42.2 Estimated GFR (Non- 36.4 BUN/Creatinine Ratio 19.4 (10-20) Calcium Level 9.1 mg/dl (8.5-10.1) Magnesium Level 1.9 mg/dl (1.8-2.4) Total Bilirubin 0.3 mg/dl (0.2-1) Direct Bilirubin < 0.1 mg/dl (0-0.2) Aspartate Amino Transf (AST/SGOT) 22 U/L (15-37) Alanine Aminotransferase (ALT/SGPT) 26 U/L (12-78) Alkaline Phosphatase 101 U/L (45-117) Total Creatine Kinase 57 U/L (26-192) Creatine Kinase MB < 0.5 ng/ml (0.5-3.6) Creatine Kinase MB Ratio (0-3.0) Troponin I < 0.015 ng/ml (0-0.045) Total Protein 7.3 gm/dl (6.4-8.2) Albumin 3.5 gm/dl (3.4-5.0) Amylase Level 77 U/L (25-115) Lipase 3140 U/L (73-393) Laboratory results as stated above per my review. Medications Administered Medications (Trade) Dose Ordered Sig/Rosetta Route Start Time Stop Time Status Last Admin Dose Admin Sodium Chloride 1,000 ml @ 999 mls/hr Q1H1M STAT IV 08/25/17 17:47 08/25/17 18:47 DC 08/25/17 18:09 999 MLS/HR Insulin Human Regular (novoLIN-R U-100 PER UNIT) 10 units NOW STAT IV 08/25/17 17:47 08/25/17 17:51 DC 08/25/17 17:47 10 UNITS Insulin Human Regular (novoLIN-R U-100 PER UNIT) 5 units NOW STAT SC 08/25/17 17:47 08/25/17 17:51 DC 08/25/17 18:10 5 UNITS Ondansetron HCl (Zofran 8mg Iv) 8 mg NOW STAT IV 08/25/17 17:58 08/25/17 18:00 DC 08/25/17 18:08 8 MG Hydralazine HCl (HydrALAZINE INJ) 10 mg NOW STAT IV. 08/25/17 18:01 08/25/17 18:02 DC 08/25/17 18:09 10 MG ECG Indication: other (hyperglycemia) Rate (beats per minute): 108 Rhythm: sinus tachycardia Findings: no acute ischemic change, no ectopy ED Course 1745: Previous medical records were reviewed. The patient was evaluated in room C4. A complete history and physical examination was performed. Her bedside BSG was 528. 1747: Ordered Novolin-R U-100 per unit 15 units SC, Sodium Chloride 1000 ml @ 999 mls/hr IV. 1758: Ordered Zofran 8 mg IV. 1801: Ordered Hydralazine Inj 10 mg IV. 2015: On reevaluation, the patient is resting comfortably. I reexamined her abdomen. She has abdominal tenderness, which she states is worse with eating. I discussed the results and findings with her. She verbalized agreement of the treatment plan. I spoke with Dr. Gonzalez of the [facility]. The patient will be evaluated for further management and care. Medical Decision Differential diagnosis: Etiologies such as metabolic, infection, hypo/hyperglycemia, electrolyte abnormalities, cardiac sources, intracerebral event, toxicologic, neurologic, as well as others were entertained. This is a 76-year-old female who presents to the ED with a chief complaint of high blood pressure and high blood sugars. The patient reports that her blood sugar today was over 600. She also reported that she may have had some mild back pain. She otherwise overall just does not feel very well. She reports some nausea. Her physical exam reveals some mild tenderness in the epigastric and right upper quadrants. She is slightly tachycardic. Her blood pressure is elevated 200/93. Heart rate was 108. It was a sinus tach. Patient's white blood cell count was elevated at 14, glucose is elevated at 528, BUN is 27 and creatinine is 1.4. Lipase is 3140. Chest x-ray did not show acute disease. The patient was treated with IV fluids, IV hydralazine was given for hypertension. She was given IV Zofran for nausea. The patient was also given 10 units of IV insulin as well as 5 units of subcutaneous insulin. The patient was told results the Persaud test. Blood sugar did improve to about 350. The patient is felt to require further evaluation as an inpatient. I spoke with the hospitalist who will see the patient for further inpatient care. Medication Reconcilliation Current Medication List: was personally reviewed by me Blood Pressure Screening Patient's blood pressure: Elevated blood pressure Blood pressure disposition: Referred to PCP Consults Time Called: 2014 Consulting Physician: Dr. Lisa Thurston Returned Call: 2018 Discussed the patient's case. The patient will be evaluated for further treatment and disposition. Impression Primary Impression: Pancreatitis Additional Impressions: Hyperglycemia HTN (hypertension) Scribe Attestation The scribe's documentation has been prepared under my direction and personally reviewed by me in its entirety. I confirm that the note above accurately reflects all work, treatment, procedures, and medical decision making performed by me. Departure Information Dispostion Being Evaluated By Hospitalist Referrals No Doctor, Assigned (PCP) Patient Instructions My [facility] Problem Qualifiers
[2017-08-25] MEDS ORDERED: ONDANSETRON INJ 2 MG/ML 2 ML VIAL IV PRN (22:15)
[2017-08-25] MEDS ORDERED: GLUCAGON FOR INJ 1 MG VIAL SQ PRN (22:15)
[2017-08-25] MEDS ORDERED: DEXTROSE 50% 50 ML SYR IV PRN (22:15)
[2017-08-25] MEDS ORDERED: GLUCOSE 40% GEL 15 GM TUBE PO PRN (22:15)
[2017-08-25] MEDS ORDERED: GLUCOSE 10 TABS/TUBE PO PRN (22:15)
[2017-08-25] MEDS ORDERED: PHARMACY GLYCEMIC MGMT CONSULT PRN (22:18)
[2017-08-25] MEDS ORDERED: ZNTT/150 PO (22:22)
[2017-08-25] MEDS ORDERED: BUDE1SUS INH (22:22)
[2017-08-25] MEDS ORDERED: AMLO-110 PO (22:22)
[2017-08-25] MEDS ORDERED: IPRASOL4 INH (22:22)
[2017-08-25 22:44] LABS: BETA-HYDROXYBUTYRATE 4.92 mg/dL (0.2-2.81)
[2017-08-25 22:46] LABS: GLUCOSE 497 mg/dl (70-99)
--- NOTE | 2017-08-25 22:48 | History and Physical ---
History & Physical Date & Time of Service: Aug 25, 2017 at 22:26 Chief Complaint: Blood Sugar @600 Primary Care Physician: Colleen Jefferson D.O. History of Present Illness Source: patient, clinic records, hospital records 76 yo diabetic female presents with indigestion and epigastric pain that radiates to her lower back for the past 3 days. Along with this symptom she reports nausea and some loose stools. She has been taking Maalox with no relief. She noted that her blood sugar was >400 before going to sleep last night and when she woke up this morning it was 54. She states she went back to sleep for a couple of hours after eating cream of wheat and found that her blood sugar was >400. She phoned her PCP office and was instructed to take 80 units of her Relion, then later called back and was instructed to take another 27 Units of her Novolog. Three hours later her blood sugar was >500 and her BP was elevated to 200 systolic so she was advised to go to the ER. On arrival her BP was 200 systolic and she was given Hydralazine 10 IV which brought it down to 176 systolic. Her blood sugar was around 500 and she was given Novolog 10 IV and 5 SQ with a repeat BS of 390. The abdominal pain was located in the epigastric area and over under the R breast; again it radiated to her lower back. Her abdomen was tender to touch diffusely on exam and she had some CVA tenderness. She also reported some SOB only when the abdominal pain was severe. She denied any vomiting but reported loose stools without melvi blood. She also reports a headache since earlier today and some chills for that past three days. She has severe insomnia and reports that for the past week she has not been able to fall asleep until roughly 0400. She states that her restless leg syndrome has been acting up even more lately and as a result she has been taking 2mg of Requip at night instead of the prescribed 1mg. She reports some blurry vision, which she says happens when her sugar has increased in the past. 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 Regarding h/o pancreatitis, she has a h/o pancreatic cysts, with recurrent acute pancreatitis s/p pancreatic stent placement on 08/08/15. Her last episode of pancreatitis was prior to that time. She has had a cholecystectomy in the past and does not use alcohol. 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 (9) Depression Status: Chronic (10) Diabetes mellitus type 2 Status: Chronic (11) Diabetic neuropathy Status: Chronic (12) DKA (diabetic ketoacidoses) Status: Chronic (13) Dyslipidemia Status: Chronic (14) Esophageal dysmotility Status: Chronic (15) Fatty liver Status: Chronic (16) Gastroparesis Status: Chronic (17) Giant cell arteritis Status: Resolved (18) History of sleep apnea Status: Chronic (19) Insomnia Status: Chronic (20) Ischemic stroke Status: Resolved (21) Pancreatic divisum Status: Chronic (22) Sciatica Status: Chronic (23) TIA (transient ischemic attack) Status: Resolved Surgical Problems: (1) cataract surgery Permanent Comment: Right Status: Chronic (2) H/O esophagogastroduodenoscopy Permanent Comment: EGD/EUS 11/01/14- gastritis, hiatal hernia, normal amuplla, fatty infiltration of liver. 3 mm by 10 mm cystic lesion seen in pancreatic head , most consistent with intraductal papillary mucinous neoplasm based on EUS from 2011 Status: Resolved (3) History of - tubal ligation Status: Chronic (4) History of cholecystectomy Status: Chronic (5) S/P ERCP Permanent Comment: 05/03/15- minor duct sphincterotomy and pancreatic duct stent placement Status: Resolved (6) S/P ERCP Permanent Comment: 12/07/14- prior biliary endoscopic sphincterotomy appeared open. cholangiogram was normal. 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) Immunizations History of Influenza Vaccine: Yes Influenza Vaccine Date: Nov 10, 2016 History of Tetanus Vaccine?: Yes Tetanus Immunization Date: Sep 27, 2007 History of Pneumococcal: No Pneumococcal Date: Jul 11, 2016 History of Hepatitis B Vaccine: Yes Hepatitis Immunization Date: Sep 27, 2000 Multi-Drug Resistant Organisms History of MDRO: No Allergies Coded Allergies: Iodinated Diagnostic Agents (Verified Allergy, Severe, RASH TO IVP DYE, NAUSEA, FAINTING, COUGHING, GAGGING, HEADACH, 08/25/17) Sulfa Antibiotics (Verified Allergy, Severe, HIVES, FACIAL AND ARM SWELLING, 08/25/17) Cerivastatin (Verified Allergy, Intermediate, HIVES, 08/25/17) Codeine (Verified Allergy, Intermediate, "PRICKLY RASH", 08/25/17) Hydroxyzine (Verified Allergy, Intermediate, N/V, 08/25/17) Latex1 -Allergic Contact Dermititis (Verified Allergy, Intermediate, DERMATITIS-PT TOLERATED A LATEX CATHETER 03/26/08, 08/25/17) Diphenhydramine (Verified Allergy, Mild, RASH; SLEEPINESS WITH "PHARBEDRYL ", 08/25/17) Loratadine (Verified Allergy, Mild, HIVES, 08/25/17) Sulfamethoxazole w/Trimethoprim (Verified Allergy, Mild, RASH, 08/25/17) Prednisone (Unverified Allergy, Unknown, unknown, 08/25/17) Tetanus Toxoid (Verified Adverse Reaction, Intermediate, SWELLING AT INJECTION SITE, 08/25/17) Alprazolam (Verified Adverse Reaction, Unknown, "SLEEPY STUPER", 08/25/17) Metformin (Verified Adverse Reaction, Unknown, DIARRHEA, 08/25/17) Morphine (Verified Adverse Reaction, Unknown, VOMITING, 08/25/17) Simvastatin (Verified Adverse Reaction, Unknown, COUGH, "DISCOMFORT", 08/25) Home Medications Scheduled Amlodipine (Norvasc), 5 MG PO DAILY Aspirin (Aspirin), 81 MG PO DAILY Atorvastatin (Atorvastatin Calcium), 10 MG PO QPM Clopidogrel (Plavix), 75 MG PO DAILY Escitalopram (Lexapro), 15 MG PO QAM Gabapentin (Neurontin), 400 MG PO BID Insulin Aspart (Novolog), SQ ACHS Insulin Isophan/Regular (Novolin 70/30), 80 UNITS SC BID Losartan Potassium (Cozaar), 100 MG PO QAM Magnesium Oxide (Mag-Ox), 400 MG PO QAM Metoprolol Tartrate (Lopressor) (Lopressor), 50 MG PO BID Mirtazapine (Remeron), 30 MG PO HS Omeprazole (Prilosec), 40 MG PO QAM Pancrelipase (Lipase-Protease- (Creon), 6,000 UNITS PO QID Ranitidine (Zantac), 75 MG PO BID Ropinirole Hydrochloride (Requip), 1 MG PO HS Trazodone Hcl (Trazodone), 50 MG PO HS Scheduled PRN Budesonide (Inhalation) (Pulmicort), 0.5 MG INH BID PRN for SOB/Wheezing Docusate Sodium (Colace), 100 MG PO BID PRN for Constipation Ipratropium-Albuterol (Duoneb), 1 TREATMENT INH Q4H PRN for SOB/Wheezing Lorazepam (Ativan), 0.5 MG PO Q6H PRN for Anxiety Tramadol (Ultram), 50 MG PO Q6 PRN for Pain Review of Systems At least ten systems were reviewed and negative except as indicated in HPI. Physical Exam Vital Signs Date Time Temp Pulse Resp B/P (MAP) Pulse Ox O2 Delivery O2 Flow Rate FiO2 08/25/17 22:03 97 172/94 95 08/25/17 20:15 107 22 176/81 97 Room Air 08/25/17 18:16 99 08/25/17 18:15 101 20 196/147 98 Room Air 08/25/17 15:57 36.8 112 18 200/93 98 Room Air General Appearance: WD/WN, no apparent distress Head: normocephalic, atraumatic Eyes: normal inspection, PERRL, sclerae normal ENT: hearing grossly normal, pharynx normal Neck: supple, no adenopathy, no JVD, trachea midline Respiratory/Chest: lungs clear, normal breath sounds, no respiratory distress, no accessory muscle use Cardiovascular: regular rate, rhythm, no edema, no gallop, no murmur, normal peripheral pulses Abdomen/GI: normal bowel sounds, soft, + tenderness (diffusely but worse in RUQ /epigastric area) Back: normal inspection, + left CVA tenderness, + right CVA tenderness Extremities/Musculoskelatal: normal inspection, no calf tenderness, no pedal edema Neurologic/Psych: alert, normal mood/affect, oriented x 3, + motor weakness ( mild R UE and LE weakness with mild R foot drop, otherwise 5/5 strength throughout), + sensory deficit (on soles of feet bilaterally only) Skin: normal color, warm/dry, no rash Diagnostics Laboratory Results 08/25/17 17:50 Red Blood Count 4.83, Mean Corpuscular Volume 86.1, Mean Corpuscular Hemoglobin 30.8, Mean Corpuscular Hemoglobin Concent 35.8, Mean Platelet Volume 9.4, Neutrophils (%) (Auto) 59.1, Lymphocytes (%) (Auto) 28.8, Monocytes (%) (Auto) 7.5, Eosinophils (%) (Auto) 3.9, Basophils (%) (Auto) 0.4, Neutrophils # (Auto) 8.32, Lymphocytes # (Auto) 4.05, Monocytes # (Auto) 1.06, Eosinophils # (Auto) 0.55, Basophils # (Auto) 0.05 08/25/17 17:50 Test 08/25/17 17:47 08/25/17 17:50 08/25/17 20:04 White Blood Count 14.07 K/uL (4.8-10.8) Red Blood Count 4.83 M/uL (4.2-5.4) Hemoglobin 14.9 g/dL (12.0-16.0) Hematocrit 41.6 % (37-47) Mean Corpuscular Volume 86.1 fL (80-100) Mean Corpuscular Hemoglobin 30.8 pg (25-34) Mean Corpuscular Hemoglobin Concent 35.8 g/dl (32-36) Platelet Count 217 K/uL (130-400) Mean Platelet Volume 9.4 fL (7.4-10.4) Neutrophils (%) (Auto) 59.1 % Lymphocytes (%) (Auto) 28.8 % Monocytes (%) (Auto) 7.5 % Eosinophils (%) (Auto) 3.9 % Basophils (%) (Auto) 0.4 % Neutrophils # (Auto) 8.32 K/uL (1.4-6.5) Lymphocytes # (Auto) 4.05 K/uL (1.2-3.4) Monocytes # (Auto) 1.06 K/uL (0.11-0.59) Eosinophils # (Auto) 0.55 K/uL (0-0.5) Basophils # (Auto) 0.05 K/uL (0-0.2) RDW Standard Deviation 40.2 fL (36.4-46.3) RDW Coefficient of Variation 12.8 % (11.5-14.5) Immature Granulocyte % (Auto) 0.3 % Immature Granulocyte # (Auto) 0.04 K/uL (0.00-0.02) Prothrombin Time 10.6 SECONDS (9.0-12.0) Prothromb Time International Ratio 1.0 (0.9-1.1) Activated Partial Thromboplast Time 24.6 SECONDS (21.0-31.0) Partial Thromboplastin Ratio 0.9 Anion Gap 12.0 mmol/L (3-11) Est Creatinine Clear Calc Drug Dose 30.5 ml/min Estimated GFR () 42.2 Estimated GFR (Non- 36.4 BUN/Creatinine Ratio 19.4 (10-20) Calcium Level 9.1 mg/dl (8.5-10.1) Magnesium Level 1.9 mg/dl (1.8-2.4) Total Bilirubin 0.3 mg/dl (0.2-1) Direct Bilirubin < 0.1 mg/dl (0-0.2) Aspartate Amino Transf (AST/SGOT) 22 U/L (15-37) Alanine Aminotransferase (ALT/SGPT) 26 U/L (12-78) Alkaline Phosphatase 101 U/L (45-117) Total Creatine Kinase 57 U/L (26-192) Creatine Kinase MB < 0.5 ng/ml (0.5-3.6) Creatine Kinase MB Ratio (0-3.0) Troponin I < 0.015 ng/ml (0-0.045) Total Protein 7.3 gm/dl (6.4-8.2) Albumin 3.5 gm/dl (3.4-5.0) Amylase Level 77 U/L (25-115) Lipase 3140 U/L (73-393) Beta-Hydroxybutyric Acid 4.92 mg/dL (0.2-2.81) Bedside Glucose 350 mg/dl (70-90) Results Past 24 Hours Test 08/25/17 16:00 08/25/17 17:47 08/25/17 17:50 08/25/17 20:04 Range/Units Bedside Glucose 528 350 70-90 mg/dl White Blood Count 14.07 4.8-10.8 K/uL Red Blood Count 4.83 4.2-5.4 M/uL Hemoglobin 14.9 12.0-16.0 g/dL Hematocrit 41.6 37-47 % Mean Corpuscular Volume 86.1 80-100 fL Mean Corpuscular Hemoglobin 30.8 25-34 pg Mean Corpuscular Hemoglobin Concent 35.8 32-36 g/dl Platelet Count 217 130-400 K/uL Mean Platelet Volume 9.4 7.4-10.4 fL Neutrophils (%) (Auto) 59.1 % Lymphocytes (%) (Auto) 28.8 % Monocytes (%) (Auto) 7.5 % Eosinophils (%) (Auto) 3.9 % Basophils (%) (Auto) 0.4 % Neutrophils # (Auto) 8.32 1.4-6.5 K/uL Lymphocytes # (Auto) 4.05 1.2-3.4 K/uL Monocytes # (Auto) 1.06 0.11-0.59 K/uL Eosinophils # (Auto) 0.55 0-0.5 K/uL Basophils # (Auto) 0.05 0-0.2 K/uL RDW Standard Deviation 40.2 36.4-46.3 fL RDW Coefficient of Variation 12.8 11.5-14.5 % Immature Granulocyte % (Auto) 0.3 % Immature Granulocyte # (Auto) 0.04 0.00-0.02 K/uL Prothrombin Time 10.6 9.0-12.0 SECONDS Prothromb Time International Ratio 1.0 0.9-1.1 Activated Partial Thromboplast Time 24.6 21.0-31.0 SECONDS Partial Thromboplastin Ratio 0.9 Sodium Level 135 136-145 mmol/L Potassium Level 3.8 3.5-5.1 mmol/L Chloride Level 102 98-107 mmol/L Carbon Dioxide Level 21 21-32 mmol/L Anion Gap 12.0 3-11 mmol/L Blood Urea Nitrogen 27 7-18 mg/dl Creatinine 1.40 0.60-1.20 mg/dl Est Creatinine Clear Calc Drug Dose 30.5 ml/min Estimated GFR () 42.2 Estimated GFR (Non- 36.4 BUN/Creatinine Ratio 19.4 10-20 Random Glucose 497 70-99 mg/dl Calcium Level 9.1 8.5-10.1 mg/dl Magnesium Level 1.9 1.8-2.4 mg/dl Total Bilirubin 0.3 0.2-1 mg/dl Direct Bilirubin < 0.1 0-0.2 mg/dl Aspartate Amino Transf (AST/SGOT) 22 15-37 U/L Alanine Aminotransferase (ALT/SGPT) 26 12-78 U/L Alkaline Phosphatase 101 45-117 U/L Total Creatine Kinase 57 26-192 U/L Creatine Kinase MB < 0.5 0.5-3.6 ng/ml Creatine Kinase MB Ratio 0-3.0 Troponin I < 0.015 0-0.045 ng/ml Total Protein 7.3 6.4-8.2 gm/dl Albumin 3.5 3.4-5.0 gm/dl Amylase Level 77 25-115 U/L Lipase 3140 73-393 U/L Diagnostic Radiology SINGLE VIEW CHEST CLINICAL HISTORY: Change in mental status. Weakness. FINDINGS: An AP, portable, upright chest radiograph is compared to study dated 04/13/2017 and correlated with chest CT dated 11/24/2015. The examination is degraded by portable technique and patient rotation. A right internal jugular central venous infusion port is unchanged in position. The cardiomediastinal silhouette is unremarkable. There is atherosclerotic calcification of the thoracic aorta. There are low lung volumes and bibasilar atelectasis. Chronic interstitial thickening is similar to previous. No airspace consolidation or lower pleural effusion is identified. No pneumothorax is seen. The skeletal structures are osteopenic. The bony thorax is grossly intact. Cholecystectomy clips are present in the right upper quadrant. IMPRESSION: Low lung volumes with no acute cardiopulmonary abnormality. EKG ST 108 Impression Assessment and Plan 76 yo F with acute pancreatitis 1. Acute pancreatitis-etiologies likely related to--but not limited to-- prior etiologies including pancreatic cysts vs pancreatic divism vs pancreatic stent occlusion vs other. US abdomen ordered for the morning to investigate further. With h/o pancreatic stent and extensive h/o pancreatitis, will consult GI. Cont supportive care efforts with IVF, min PO meds and NPO for bowel rest at this time. 2. Hyperglycemia-IV and SQ insulin given in the ER with improvement in blood sugar <200. Cont Lantus/ISS with carb coverage once she begins eating again. Appreciate glycemic pharmacist recommendations as she is well known to their service. Diabetes is uncontrolled with A1C 11. 3. h/o stroke-R sided residual weakness. Cont secondary prophy with Plavix, ASA 81 and statin daily. 4. Depression-stable, cont Lexapro 15mg PO qAM 5. Peripheral neuropathy-cont gabapentin 6. Insomnia-appears 2/2 RLS and recent pancreatitis. Cont Mirtazapine and Requip. Hold trazodone in effort to minimize PO intake. Cont to treat 2/2 factors. Consider TSH, B12, 25OH if not improved this admission. 7. HTN-improved after IV hydralazine in ER. Cont Cozaar and Norvasc per home med regimen. DVT proph: Heparin SQ Full Code Dispo-telemetry [facility] Telemetry Resuscitation Status FULL RESUSCITATION VTE Prophylaxis VTE Risk Assessment Done? Y/N: Yes Risk Level: Moderate Given or contraindicated: Unfractionated heparin SQ
--- NOTE | 2017-08-25 22:50 | Pharmacy Progress Note ---
Glycemic Control Intl Consult Date of Service Aug 25, 2017. Scope Glycemic Pharmacist consulted by Dr Guerra on 08/25/17 for glycemic control and to write orders per [facility] inpatient glycemic control protocol Objective Weight (Kilograms): 73.000 Accuchecks BSG (last 24hrs): Test 08/25/17 16:00 08/25/17 17:50 08/25/17 20:04 Bedside Glucose 528 mg/dl (70-90) 350 mg/dl (70-90) Random Glucose 497 mg/dl (70-99) Laboratory Data (last 24hrs) Test 08/25/17 17:50 Anion Gap 12.0 mmol/L BUN/Creatinine Ratio 19.4 Blood Urea Nitrogen 27 mg/dl Creatinine 1.40 mg/dl Potassium Level 3.8 mmol/L Sodium Level 135 mmol/L White Blood Count 14.07 K/uL Red Blood Count 4.83 M/uL Hemoglobin 14.9 g/dL Hematocrit 41.6 % Mean Corpuscular Volume 86.1 fL Mean Corpuscular Hemoglobin 30.8 pg Mean Corpuscular Hemoglobin Concent 35.8 g/dl Platelet Count 217 K/uL Mean Platelet Volume 9.4 fL Neutrophils (%) (Auto) 59.1 % Lymphocytes (%) (Auto) 28.8 % Monocytes (%) (Auto) 7.5 % Eosinophils (%) (Auto) 3.9 % Basophils (%) (Auto) 0.4 % Neutrophils # (Auto) 8.32 K/uL Lymphocytes # (Auto) 4.05 K/uL Monocytes # (Auto) 1.06 K/uL Eosinophils # (Auto) 0.55 K/uL Basophils # (Auto) 0.05 K/uL Recent Pertinent Medications Outpatient Anti-diabetic Regimen: * Novolin 70/30 80 units BID * Novolog ACHS per sliding scale * A1c = 10.4 % 11/30/16 Risk Factors for Insulin Resistance: * Baseline elevated BSG Assessment & Plan ASSESSMENT: * 76 y/o female admitted for pancreatitis and elevated BSGs, well known to the pharmacy glycemic service * I spoke with Dr. Guerra earlier and the plan is to utilize SQ insulin since her BSG is improving significantly with fluids and after insulin doses in the ER * Based upon review of her last admit in Nov 2016, she was requiring only an ave of 60 units/day (while eating). Based upon her outpatient regimen of at least 160 units/day, she would require 80 units/day of basal insulin. * Will plan to continue the ordered 40 units BID but cut tonight's dose in 1/2 if she has fallen drastically, especially in light of the NPO status. * Can then reassess in the AM PLAN FOR INPATIENT GLYCEMIC CONTROL: * Basal insulin with LANTUS 40 units SQ BID (for tonight's dose, give only 20 units if BSG < 200) * Correctional Insulin with NOVOLOG Q6hrs while NPO * Goal Range: Low 120 mg/dL - High 150 mg/dL * Correction Factor: 15 mg/dL/unit * Nutritional / Prandial insulin per carb ratio of 1 unit per 5 grams CHO consumed * Please note that the plan above was derived based on current level of insulin resistance and hospital stress. These recommendations are appropriate for inpatient admission only. Plan of care upon discharge will need to be reassessed to avoid potential outpatient hypo/hyperglycemia. Thank you.
[2017-08-25] MEDS ORDERED: INSULIN GLARGINE SOLOSTAR 100 UNITS/ML 3 ML PEN SC ONE ×2 (23:00)
[2017-08-25] MEDS: SODIUM CHLORIDE 0.9% 1000ML 1,000 ML IV SCH (23:41)
[2017-08-25] MEDS: INSULIN ASPART 100 UNITS/ML 3 ML PEN SC SCH (23:41)
[2017-08-25 23:44] VITALS: BP 173/79; PULSE 93; TEMP 36.8; O2SAT 97; BMI 31.4
[2017-08-25] MEDS: LORAZEPAM 0.5 MG TAB PO PRN (23:53)
[2017-08-25] MEDS: TRAMADOL HCL 50 MG TAB PO PRN (23:54)
[2017-08-25] MEDS: ATORVASTATIN 10 MG TAB PO SCH (23:57)
[2017-08-25] MEDS: GABAPENTIN 400 MG CAP PO SCH (23:58)
[2017-08-25] MEDS: MIRTAZAPINE TAB 15 MG TAB PO SCH (23:58)
[2017-08-26] VITALS (7 sets, daily range): BP systolic 135–161; BP diastolic 76–91; PULSE 64–93; TEMP 36.2–36.7; O2SAT 92–96; BMI 31.3
[2017-08-26 00:05] LABS: CKMB/CK RATIO 1.7 (0-3.0)
[2017-08-26 00:22] LABS: URINE APPEARANCE CLEAR (CLEAR); URINE BILIRUBIN NEG (NEG); URINE COLOR YELLOW; URINE EPITHELIAL CELL AUTO >30 /lpf (0-5); URINE NITRITE NEG (NEG); URINE PH 5.5 (4.5-7.5); URINE SPECIFIC GRAVITY 1.031 (1.000-1.030); UROBILINOGEN NEG (NEG); ZZUR CULT IF INDIC CLEAN CATCH YES
[2017-08-26 00:30] LABS: MANUAL MICROSCOPIC REQUIRED? NO; REVIEW REQ? NO
[2017-08-26] MEDS ORDERED: INFLUENZA ADMINISTRATION CHARGE ONE (03:15)
[2017-08-26] MEDS ORDERED: INFLUENZA VACCINE HIGH DOSE 65+ 0.5 ML SYR IM. ONE (03:15)
[2017-08-26] MEDS: ROPINIROLE HCL 1 MG TAB PO SCH ×2 (04:35→21:02)
[2017-08-26 05:49] LABS: HEMATOCRIT 36.3 % (37-47); MEAN CELL VOLUME 86.2 fL (80-100); MEAN CORPUSCULAR HEMOGLOBIN 31.8 pg (25-34); MEAN CORPUSCULAR HGB CONC 36.9 g/dl (32-36); MEAN PLATELET VOLUME 9.2 fL (7.4-10.4); PLATELET COUNT 199 K/uL (130-400); RED BLOOD COUNT 4.21 M/uL (4.2-5.4); WHITE BLOOD COUNT 11.53 K/uL (4.8-10.8)
[2017-08-26] MEDS: HEPARIN SOD 5000 UNIT/0.5 ML CARP SQ SCH ×3 (06:07→21:05)
[2017-08-26] MEDS: SODIUM CHLORIDE 0.9% 1000ML 1,000 ML IV SCH (06:07)
[2017-08-26] MEDS: INSULIN ASPART 100 UNITS/ML 3 ML PEN SC SCH ×4 (06:09→23:55)
--- NOTE | 2017-08-26 06:19 | Clinical Documentation Query ---
CLINICAL DOCUMENTATION QUERY 76 year old female with hx of chronic pancreatitis who presents to the Emergency Room with complaints of waxing and waning hyperglycemia and epigastric pain Query#1/3 In your clinical opinion is this patient being managed for: (+ ) Recurrent pancreatitis ( ) Acute Pancreatitis ( ) Not Agree ( ) Other explanation of clinical findings (Please Explain) ( ) Unable to determine (Please Define) ( ) Need to Discuss The medical record reflects the following clinical findings, treatment, and risk factors. Clinical Indicators: WBC 14.07, Lipase 3140, Serum glucose 528, and trace Ketone by UA. Treatment: IVF's, IV insulin, SQ Novolog coverage Q6hr, Risk Factors: Age, Chronic pancreatitis, Query #2/3 In your clinical opinion is this patient being managed for: ( ) Type 2 diabetes mellitus with ketoacidosis evidenced by serum glucose >500 and trace Ketones by UA treated with IV insulin, IVF's, and Q6hrs Novolog coverage. ( + ) Not Agree ( ) Other explanation of clinical findings (Please Explain) ( ) Unable to determine (Please Define) ( ) Need to Discuss No Ketoacidosis The medical record reflects the following clinical findings, treatment, and risk factors. Clinical Indicators: WBC's 14.07, BSG 528, UA trace Ketones Treatment: IVF's, IV insulin, SQ Novolog coverage Q6hr, Risk Factors: Age, pancreatitis, acute illness. Query #3/3 In your clinical opinion is this patient being managed for: ( + ) SIRS of non-infectious origin in setting of recurrent pancreatitis. ( ) Not Agree ( ) Other explanation of clinical findings (Please Explain) ( ) Unable to determine (Please Define) ( ) Need to Discuss The medical record reflects the following clinical findings, treatment, and risk factors. Clinical Indicators: Tachycardia 112, Leukocytosis 14.07, BSG 528, Treatment: IVF bolus then primary and telemetry monitoring Risk Factors: Age, pancreatitis, ?DKA Please clarify and document your clinical opinion in the progress notes and discharge summary. Terms such as "probable", "suspected", "likely", "questionable", "possible", or "still to be ruled out" are acceptable. IF IN AGREEMENT, YOU MUST DOCUMENT ABOVE DIAGNOSTIC STATEMENT IN DAILY PROGRESS NOTES AND DISCHARGE SUMMARY. This document is not part of the patient's record. Thank You, Malvin Ervin RN [phone]
[2017-08-26 06:26] LABS: BUN/CREATININE RATIO 18.7 (10-20); CALCIUM 8.1 mg/dl (8.5-10.1); CREATININE 1.1 mg/dl (0.60-1.20); POTASSIUM 3.3 mmol/L (3.5-5.1)
[2017-08-26 06:30] LABS: CKMB/CK RATIO 1.5 (0-3.0)
[2017-08-26] MEDS: ESCITALOPRAM OXALATE 10 MG TAB PO SCH (08:58)
[2017-08-26] MEDS: GABAPENTIN 400 MG CAP PO SCH ×2 (08:58→21:00)
[2017-08-26] MEDS: AMLODIPINE BESYLATE 5 MG TAB PO SCH (08:59)
[2017-08-26] MEDS: CLOPIDOGREL BISULFATE 75 MG TAB PO SCH (08:59)
[2017-08-26] MEDS: METOPROLOL TARTRATE 50 MG TAB PO SCH ×2 (08:59→21:02)
[2017-08-26] MEDS: ASPIRIN 81 MG ECTAB PO SCH (08:59)
[2017-08-26] MEDS: LOSARTAN POTASSIUM 50 MG TAB PO SCH (09:00)
[2017-08-26] MEDS ORDERED: PANTOprazole SOD 40 MG TAB PO SCH (09:00)
[2017-08-26] MEDS: INSULIN GLARGINE SOLOSTAR 100 UNITS/ML 3 ML PEN SC SCH ×2 (09:02→21:05)
[2017-08-26] MEDS: LACTATED RINGER'S 1000ML 1,000 ML IV SCH ×3 (10:40→23:50)
--- NOTE | 2017-08-26 11:03 | DIAGNOSTIC IMAGING REPORT ---
ABDOMEN COMPLETE (US) CLINICAL HISTORY: 76 years-old Female presenting with p/w acute pancreatitis. TECHNIQUE: Real-time grayscale and limited color Doppler ultrasound imaging of the abdomen was performed. COMPARISON: 11/29/[address] from 01/24/2017. FINDINGS: Pancreas: Heterogeneous appearing parenchyma. Mild prominence of the pancreatic duct, which measures 4 mm at the neck. Liver: Moderately hyperechogenic parenchyma with partial obscuration of the right hemidiaphragm, likely indicating moderate steatosis. The liver measures 17.5 cm in maximal sagittal dimension. Main portal vein patent with normal directional flow. Biliary: No intrahepatic biliary ductal dilatation. Common bile duct measures up to 4 mm in diameter. Gallbladder: Surgically absent. Spleen: Parenchymal calcifications suggested by multiple foci of hyperechogenicity, which could suggest prior granulomatous infection. Normal spleen size, measuring 11.3 cm in length. Kidneys: Normal in size and echogenicity. Right kidney measures 10.4 cm, and left kidney measures 10.3 cm. No hydronephrosis. Vasculature: Visualized portions of the IVC and abdominal aorta normal. Ascites: None. IMPRESSION: 1. Heterogeneity of the pancreatic parenchyma with prominence of the pancreatic duct, which could be compatible with pancreatitis. Correlate with lipase. 2. Hepatic steatosis. Electronically signed by: Paul Coronado M.D. 08/26/2017 11:02 AM Dictated Date/Time: 08/26/2017 10:57 AM
[2017-08-26] MEDS: TRAMADOL HCL 50 MG TAB PO PRN ×2 (11:33→21:00)
[2017-08-26] MEDS: LORAZEPAM 0.5 MG TAB PO PRN ×2 (11:33→21:00)
--- NOTE | 2017-08-26 11:42 | Pharmacy Progress Note ---
Glycemic Control Progress Note Date of Service Aug 26, 2017. Scope Glycemic Pharmacist consulted for glycemic control to write orders per [facility] inpatient glycemic control protocol. Objective Accuchecks BSG (last 24hrs): Test 08/25/17 16:00 08/25/17 17:50 08/25/17 20:04 08/25/17 22:47 Bedside Glucose 528 mg/dl (70-90) 350 mg/dl (70-90) 303 mg/dl (70-90) Random Glucose 497 mg/dl (70-99) Test 08/26/17 00:09 08/26/17 05:17 08/26/17 06:05 Bedside Glucose 330 mg/dl (70-90) 221 mg/dl (70-90) Random Glucose 199 mg/dl (70-99) HbA1c: Test 08/26/17 05:17 Hemoglobin A1c 10.9 % (4.5-5.6) H Recent Pertinent Medications The patient is currently receiving: * Basal insulin: Lantus 40 units every 12 hours * Correctional Insulin: Novolog Correction per scale ACHS Goal Range: Low 120 mg/dL - High 150 mg/dL Correction Factor: 15 mg/dL/unit * Prandial insulin: Per carb ratio of 1 unit per 5 grams CHO consumed Outpatient Anti-Diabetic Meds * Novolin 70/30 80 units BID * Novolog ACHS per sliding scale * A1c = 10.4 % 11/30/16 Assessment & Plan ASSESSMENT: * See progress note from 08/25/17 for more background info, in short: Pt receiving SQ basal bolus insulin regimen for hyperglycemia secondary to baseline DM (outpatient regimen on hold) * Changes needed to insulin regimen: * AM Fasting BSG = 221 mg/dl. This is above goal range for patient based on inpatient targets and co-morbidities. However, basal insulin dose was just initiated last night and BSGs are trending down nicely. Also, patient remains NPO so I do not want to push the Lantus dose further. This dose is actually more aggressive then what I anticipated her needs to be based on past admission data. * Post-prandial BSGs are difficult to assess as this is the first day we have her as a consult. Continue current coverage and adjust as necessary. PLAN FOR INPATIENT GLYCEMIC CONTROL: * Basal insulin * Lantus 40 units SQ BID * Bolus insulin * NovoLog per scale Q6hrs while NPO * Goal Range: Low 120 mg/dL - High 150 mg/dL * Correction Factor: 15 mg/dL/unit * Nutritional / Prandial insulin per carb ratio of 1 unit per 5 grams CHO consumed * Please note that the plan above was derived based on current level of insulin resistance and hospital stress. These recommendations are appropriate for inpatient admission only. Plan of care upon discharge will need to be reassessed to avoid potential outpatient hypo/hyperglycemia. Thank you.
--- NOTE | 2017-08-26 12:02 | Progress Note ---
Internal Med Progress Note Date of Service: Aug 26, 2017. Provider Documentation: SUBJECTIVE: The patient was seen and examined Admitted with Epigastric pain that goes to the back and associated with Nausea Still has some epigastric pain OBJECTIVE: Vital Signs-as noted below Exam: General-NO distress at rest Eyes-normal ENT-normal Neck-supple Lungs-Clear to ausucltate bilaterally Heart-Regular Abdomen-Soft,mildly tender epigastrium Extremities-NO edema Neuro-AAOx3 Lab data as noted below. ASSESSMENT & PLAN: 76 yo F with acute pancreatitis Acute Recurrent pancreatitis- Meets SIRS criteria on admission History of Pancreatitis and pancreatic stent before Etiologies likely related to--but not limited to-- prior etiologies including pancreatic cysts vs pancreatic divism vs pancreatic stent occlusion vs other. Consult GI.-appreciate Input Cont supportive care efforts with IVF, min PO meds and NPO for bowel rest at this time. CT of the Abdomen -pancreatic protocol Clinically a little batter Hyperglycemia- Blood sugar >500 on admission and no signs of DKA IV and SQ insulin given in the ER with improvement in blood sugar <200. Cont Lantus/ISS with carb coverage once she begins eating again. Diabetes is uncontrolled with A1C 11 . H/O stroke-R sided residual weakness. Cont secondary prophy with Plavix, ASA 81 and statin daily. Depression-stable, Cont Lexapro 15mg PO qAM Insomnia-appears 2/2 RLS and recent pancreatitis. Cont Mirtazapine and Requip. Hold trazodone in effort to minimize PO intake. Consider TSH, B12, 25OH if not improved this admission. HTN-improved after IV hydralazine in ER. Cont Cozaar and Norvasc per home med regimen. DVT proph: Heparin SQ Full Code Dispo- Will need to stay for a few days Vital Signs: Date Time Temp Pulse Resp B/P (MAP) Pulse Ox O2 Delivery O2 Flow Rate FiO2 08/26/17 11:53 Room Air 08/26/17 11:43 36.3 64 18 147/85 (105) 94 Room Air 08/26/17 07:47 Room Air 08/26/17 07:14 36.7 77 20 147/91 (109) 96 Room Air 08/26/17 04:02 36.6 86 18 143/80 (101) 94 Room Air 08/26/17 04:00 Room Air 08/26/17 01:15 93 161/76 (104) 08/26/17 00:00 Room Air 08/25/17 23:44 36.8 93 24 173/79 97 Room Air 08/25/17 22:20 84 158/89 95 08/25/17 22:03 97 172/94 95 08/25/17 20:15 107 22 176/81 97 Room Air 08/25/17 18:16 99 08/25/17 18:15 101 20 196/147 98 Room Air 08/25/17 15:57 36.8 112 18 200/93 98 Room Air Lab Results: Results Past 24 Hours Test 08/25/17 16:00 08/25/17 17:50 08/25/17 17:56 08/25/17 20:04 Range/Units Bedside Glucose 528 501 350 70-90 mg/dl White Blood Count 14.07 4.8-10.8 K/uL Red Blood Count 4.83 4.2-5.4 M/uL Hemoglobin 14.9 12.0-16.0 g/dL Hematocrit 41.6 37-47 % Mean Corpuscular Volume 86.1 80-100 fL Mean Corpuscular Hemoglobin 30.8 25-34 pg Mean Corpuscular Hemoglobin Concent 35.8 32-36 g/dl Platelet Count 217 130-400 K/uL Mean Platelet Volume 9.4 7.4-10.4 fL Neutrophils (%) (Auto) 59.1 % Lymphocytes (%) (Auto) 28.8 % Monocytes (%) (Auto) 7.5 % Eosinophils (%) (Auto) 3.9 % Basophils (%) (Auto) 0.4 % Neutrophils # (Auto) 8.32 1.4-6.5 K/uL Lymphocytes # (Auto) 4.05 1.2-3.4 K/uL Monocytes # (Auto) 1.06 0.11-0.59 K/uL Eosinophils # (Auto) 0.55 0-0.5 K/uL Basophils # (Auto) 0.05 0-0.2 K/uL RDW Standard Deviation 40.2 36.4-46.3 fL RDW Coefficient of Variation 12.8 11.5-14.5 % Immature Granulocyte % (Auto) 0.3 % Immature Granulocyte # (Auto) 0.04 0.00-0.02 K/uL Prothrombin Time 10.6 9.0-12.0 SECONDS Prothromb Time International Ratio 1.0 0.9-1.1 Activated Partial Thromboplast Time 24.6 21.0-31.0 SECONDS Partial Thromboplastin Ratio 0.9 Sodium Level 135 136-145 mmol/L Potassium Level 3.8 3.5-5.1 mmol/L Chloride Level 102 98-107 mmol/L Carbon Dioxide Level 21 21-32 mmol/L Anion Gap 12.0 3-11 mmol/L Blood Urea Nitrogen 27 7-18 mg/dl Creatinine 1.40 0.60-1.20 mg/dl Est Creatinine Clear Calc Drug Dose 30.5 ml/min Estimated GFR () 42.2 Estimated GFR (Non- 36.4 BUN/Creatinine Ratio 19.4 10-20 Random Glucose 497 70-99 mg/dl Calcium Level 9.1 8.5-10.1 mg/dl Magnesium Level 1.9 1.8-2.4 mg/dl Total Bilirubin 0.3 0.2-1 mg/dl Direct Bilirubin < 0.1 0-0.2 mg/dl Aspartate Amino Transf (AST/SGOT) 22 15-37 U/L Alanine Aminotransferase (ALT/SGPT) 26 12-78 U/L Alkaline Phosphatase 101 45-117 U/L Total Creatine Kinase 57 26-192 U/L Creatine Kinase MB < 0.5 0.5-3.6 ng/ml Creatine Kinase MB Ratio 0-3.0 Troponin I < 0.015 0-0.045 ng/ml Total Protein 7.3 6.4-8.2 gm/dl Albumin 3.5 3.4-5.0 gm/dl Amylase Level 77 25-115 U/L Lipase 3140 73-393 U/L Beta-Hydroxybutyric Acid 4.92 0.2-2.81 mg/dL Test 08/25/17 22:47 08/25/17 23:00 08/25/17 23:30 08/26/17 00:09 Range/Units Bedside Glucose 303 330 70-90 mg/dl Urine Color YELLOW Urine Appearance CLEAR CLEAR Urine pH 5.5 4.5-7.5 Urine Specific [place] 1.031 1.000-1.030 Urine Protein TRACE NEG Urine Glucose (UA) 3+ NEG Urine Ketones TRACE NEG Urine Occult Blood NEG NEG Urine Nitrite NEG NEG Urine Bilirubin NEG NEG Urine Urobilinogen NEG NEG Urine Leukocyte Esterase NEG NEG Urine WBC (Auto) 10-30 0-5 /hpf Urine RBC (Auto) 0-4 0-4 /hpf Urine Hyaline Casts (Auto) 1-5 0-5 /lpf Urine Epithelial Cells (Auto) >30 0-5 /lpf Urine Bacteria (Auto) NEG NEG Total Creatine Kinase 59 26-192 U/L Creatine Kinase MB 1.0 0.5-3.6 ng/ml Creatine Kinase MB Ratio 1.7 0-3.0 Troponin I 0.022 0-0.045 ng/ml Test 08/26/17 05:17 08/26/17 06:05 08/26/17 11:31 Range/Units White Blood Count 11.53 4.8-10.8 K/uL Red Blood Count 4.21 4.2-5.4 M/uL Hemoglobin 13.4 12.0-16.0 g/dL Hematocrit 36.3 37-47 % Mean Corpuscular Volume 86.2 80-100 fL Mean Corpuscular Hemoglobin 31.8 25-34 pg Mean Corpuscular Hemoglobin Concent 36.9 32-36 g/dl RDW Standard Deviation 41.0 36.4-46.3 fL RDW Coefficient of Variation 13.0 11.5-14.5 % Platelet Count 199 130-400 K/uL Mean Platelet Volume 9.2 7.4-10.4 fL Sodium Level 141 136-145 mmol/L Potassium Level 3.3 3.5-5.1 mmol/L Chloride Level 108 98-107 mmol/L Carbon Dioxide Level 23 21-32 mmol/L Anion Gap 10.0 3-11 mmol/L Blood Urea Nitrogen 21 7-18 mg/dl Creatinine 1.10 0.60-1.20 mg/dl Est Creatinine Clear Calc Drug Dose 38.5 ml/min Estimated GFR () 56.5 Estimated GFR (Non- 48.7 BUN/Creatinine Ratio 18.7 10-20 Random Glucose 199 70-99 mg/dl Estimated Average Glucose 266 mg/dl Hemoglobin A1c 10.9 4.5-5.6 % Calcium Level 8.1 8.5-10.1 mg/dl Total Creatine Kinase 48 26-192 U/L Creatine Kinase MB 0.7 0.5-3.6 ng/ml Creatine Kinase MB Ratio 1.5 0-3.0 Troponin I 0.029 0-0.045 ng/ml Bedside Glucose 221 238 70-90 mg/dl Microbiology Results 08/25/17 Urine Culture, Received Pending
--- NOTE | 2017-08-26 12:24 | Gastrointestinal Consultation ---
Gastrointestinal Consultation Date of Consultation: Aug 26, 2017 Attending Physician: Yony Gonzalez Consulting Physician: Tracy Sinha Reason for Consultation: Pancreatitis History of Present Illness Patient is a 76 year old female who presented to ED w c/o epigastric area abd pain radiating to lowed back x 3 days. Have some nausea, no vomiting. No fever, chills, CP, SOB, changes in BM habits or rectal bleeding. Upon evaluation, she was noted to have leukocytosis WBC 14K, H/H stable, CMP showed Cr 1.4, now 1.1. Glucose in 500s. LFTs normal, Lipase increased 3140. She had CXR w/o acute disease, abd u/s which showed hepatic steatosis, heterogeneous pancreas w mild prominence of panc duct at 4mm. Pt had hx of pancreas head cyst, last CT abd/ pelvis w/o contrast measured it to be 8mm, likely IPMN; pancreas divisum. She had underwent multiple EUS, ERCP for pancreas duct stent placements and sphincterectomy, last procedure done in 07/2015. She saw Dr. Keyanna Isaac at [facility] for possible surgical resection of panc head cysts but at that time surgery was deferred given her hx of TIAs. Past Medical/Surgical History Medical Problems: (1) Acute bronchitis Status: Acute (2) Asthma exacerbation Status: Acute (3) Back pain Status: Acute (4) COPD exacerbation Status: Acute (5) Cough Status: Acute (6) Epigastric abdominal pain Status: Acute (7) Headache Status: Acute (8) HTN (hypertension) Status: Acute (9) Hyperglycemia Status: Acute (10) Hyperglycemia Status: Acute (11) Influenza B Status: Acute (12) Low back pain Status: Acute (13) Pancreatitis Status: Acute (14) Right thigh pain Status: Acute (15) Signs and symptoms of severe respiratory distress Status: Acute (16) SOB (shortness of breath) Status: Acute (17) Stroke Status: Acute (18) Swelling of right upper extremity Status: Acute (19) Upper abdominal pain Status: Acute (20) UTI (urinary tract infection) Status: Acute (21) Weakness Status: Acute Past Medical History: 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 (9) Depression Status: Chronic (10) Diabetes mellitus type 2 Status: Chronic (11) Diabetic neuropathy Status: Chronic (12) DKA (diabetic ketoacidoses) Status: Chronic (13) Dyslipidemia Status: Chronic (14) Esophageal dysmotility Status: Chronic (15) Fatty liver Status: Chronic (16) Gastroparesis Status: Chronic (17) Giant cell arteritis Status: Resolved (18) History of sleep apnea Status: Chronic (19) Insomnia Status: Chronic (20) Ischemic stroke Status: Resolved (21) Pancreatic divisum Status: Chronic (22) Sciatica Status: Chronic (23) TIA (transient ischemic attack) Status: Resolved Past Surgical History: Surgical Problems: (1) cataract surgery Permanent Comment: Right Status: Chronic (2) H/O esophagogastroduodenoscopy Permanent Comment: EGD/EUS 11/01/14- gastritis, hiatal hernia, normal amuplla, fatty infiltration of liver. 3 mm by 10 mm cystic lesion seen in pancreatic head , most consistent with intraductal papillary mucinous neoplasm based on EUS from 2012 Status: Resolved (3) History of - tubal ligation Status: Chronic (4) History of cholecystectomy Status: Chronic (5) S/P ERCP Permanent Comment: 05/03/15- minor duct sphincterotomy and pancreatic duct stent placement Status: Resolved (6) S/P ERCP Permanent Comment: 12/07/14- prior biliary endoscopic sphincterotomy appeared open. cholangiogram was normal. 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[employer]) Allergies Coded Allergies: Iodinated Diagnostic Agents (Verified Allergy, Severe, RASH TO IVP DYE, NAUSEA, FAINTING, COUGHING, GAGGING, HEADACH, 08/25/17) Sulfa Antibiotics (Verified Allergy, Severe, HIVES, FACIAL AND ARM SWELLING, 08/25/17) Cerivastatin (Verified Allergy, Intermediate, HIVES, 08/25/17) Codeine (Verified Allergy, Intermediate, "PRICKLY RASH", 08/25/17) Hydroxyzine (Verified Allergy, Intermediate, N/V, 08/25/17) Latex1 -Allergic Contact Dermititis (Verified Allergy, Intermediate, DERMATITIS-PT TOLERATED A LATEX CATHETER 03/26/08, 08/25/17) Diphenhydramine (Verified Allergy, Mild, RASH; SLEEPINESS WITH "PHARBEDRYL ", 08/25/17) Loratadine (Verified Allergy, Mild, HIVES, 08/25/17) Sulfamethoxazole w/Trimethoprim (Verified Allergy, Mild, RASH, 08/25/17) Prednisone (Unverified Allergy, Unknown, unknown, 08/25/17) Tetanus Toxoid (Verified Adverse Reaction, Intermediate, SWELLING AT INJECTION SITE, 08/25/17) Alprazolam (Verified Adverse Reaction, Unknown, "SLEEPY STUPER", 08/25/17) Metformin (Verified Adverse Reaction, Unknown, DIARRHEA, 08/25/17) Morphine (Verified Adverse Reaction, Unknown, VOMITING, 08/25/17) Simvastatin (Verified Adverse Reaction, Unknown, COUGH, "DISCOMFORT", 08/25) Current Medications Home Meds and Scripts Medications Dose Route/Sig Max Daily Dose Days Date Category Dose Instructions Pulmicort (Budesonide (Inhalation)) 1 Mg/2 Ml Alisson 0.5 Mg INH BID PRN 08/25/17 Reported Duoneb (Ipratropium-Albuterol) 3 Ml Nebu 1 Treatment INH Q4H PRN 08/25/17 Reported Zantac (Ranitidine HCl) 150 Mg Tab 75 Mg PO BID 08/25/17 Reported Norvasc (Amlodipine Besylate) 5 Mg Tab 5 Mg PO DAILY 08/25/17 Reported Plavix (Clopidogrel Bisulfate) 75 Mg Tab 75 Mg PO DAILY 08/06/17 Reported Novolog (Insulin Aspart) 100 Units/Ml Inj SQ ACHS 04/03/17 Reported Ativan (Lorazepam) 0.5 Mg Tab 0.5 Mg PO Q6H PRN 01/24/17 Reported Novolin 70/30 (Insulin Human Isoph/Insulin Regular) Susp 80 Units SC BID 01/24/17 Reported Creon (Pancrelipase (Lipase-Protease-) 1 Cap Cap 6,000 Units PO QID 01/24/17 Reported Trazodone (Trazodone HCl) 50 Mg Tab 50 Mg PO HS 01/24/17 Reported Prilosec (Omeprazole) 20 Mg Capcr 40 Mg PO QAM 01/24/17 Reported Lopressor (Metoprolol Tartrate) 50 Mg Tab 50 Mg PO BID 01/24/17 Reported Mag-Ox (Magnesium Oxide) 400 Mg Tab 400 Mg PO QAM 01/24/17 Reported Cozaar (Losartan Potassium) 50 Mg Tab 100 Mg PO QAM 30 12/03/16 Rx Lexapro (Escitalopram Oxalate) 10 Mg Tab 15 Mg PO QAM 11/29/16 Reported Remeron (Mirtazapine) 30 Mg Tab 30 Mg PO HS 07/19/16 Reported Ultram (Tramadol HCl) 50 Mg Tab 50 Mg PO Q6 PRN 05/25/16 Reported Neurontin (Gabapentin) 400 Mg Cap 400 Mg PO BID 05/18/16 Reported AT BREAKFAST AND AT BEDTIME Colace (Docusate Sodium) 100 Mg Cap 100 Mg PO BID PRN 15 01/28/16 Reported Requip (Ropinirole Hydrochloride) 1 Mg Tab 1 Mg PO HS 30 12/18/15 Reported Atorvastatin Calcium (Atorvastatin) 10 Mg Tab 10 Mg PO QPM 09/08/15 Reported Aspirin 81 Mg Tab 81 Mg PO DAILY 07/17/15 Reported Review of Systems Constitutional: No fever, No chills Respiratory: No cough, No shortness of breath Cardiac: No chest pain Abdomen: + pain, + nausea, No vomiting, No diarrhea Skin: No rash, No itch, No jaundice Physical Exam Date Time Temp Pulse Resp B/P (MAP) Pulse Ox O2 Delivery O2 Flow Rate FiO2 08/26/17 11:43 36.3 64 18 147/85 (105) 94 Room Air 08/26/17 07:47 Room Air 08/26/17 07:14 36.7 77 20 147/91 (109) 96 Room Air 08/26/17 04:02 36.6 86 18 143/80 (101) 94 Room Air 08/26/17 04:00 Room Air 08/26/17 01:15 93 161/76 (104) 08/26/17 00:00 Room Air 08/25/17 23:44 36.8 93 24 173/79 97 Room Air 08/25/17 22:20 84 158/89 95 08/25/17 22:03 97 172/94 95 08/25/17 20:15 107 22 176/81 97 Room Air 08/25/17 18:16 99 08/25/17 18:15 101 20 196/147 98 Room Air 08/25/17 15:57 36.8 112 18 200/93 98 Room Air General Appearance: WD/WN, no apparent distress Eyes: normal inspection, PERRL, EOMI Neck: supple, no JVD, trachea midline Respiratory/Chest: normal breath sounds, no respiratory distress, no accessory muscle use Cardiovascular: regular rate, rhythm, no gallop, no murmur Abdomen: normal bowel sounds, soft, + tenderness (epigastric ) Extremities: normal inspection, no pedal edema, no calf tenderness Neurologic/Psych: alert, normal mood/affect, oriented x 3 Skin: normal color, no jaundice, no rash Laboratory Results Last 24 Hours Test 08/25/17 16:00 08/25/17 17:50 08/25/17 20:04 08/25/17 22:47 Bedside Glucose 528 mg/dl 350 mg/dl 303 mg/dl White Blood Count 14.07 K/uL Red Blood Count 4.83 M/uL Hemoglobin 14.9 g/dL Hematocrit 41.6 % Mean Corpuscular Volume 86.1 fL Mean Corpuscular Hemoglobin 30.8 pg Mean Corpuscular Hemoglobin Concent 35.8 g/dl Platelet Count 217 K/uL Mean Platelet Volume 9.4 fL Neutrophils (%) (Auto) 59.1 % Lymphocytes (%) (Auto) 28.8 % Monocytes (%) (Auto) 7.5 % Eosinophils (%) (Auto) 3.9 % Basophils (%) (Auto) 0.4 % Neutrophils # (Auto) 8.32 K/uL Lymphocytes # (Auto) 4.05 K/uL Monocytes # (Auto) 1.06 K/uL Eosinophils # (Auto) 0.55 K/uL Basophils # (Auto) 0.05 K/uL RDW Standard Deviation 40.2 fL RDW Coefficient of Variation 12.8 % Immature Granulocyte % (Auto) 0.3 % Immature Granulocyte # (Auto) 0.04 K/uL Prothrombin Time 10.6 SECONDS Prothromb Time International Ratio 1.0 Activated Partial Thromboplast Time 24.6 SECONDS Partial Thromboplastin Ratio 0.9 Sodium Level 135 mmol/L Potassium Level 3.8 mmol/L Chloride Level 102 mmol/L Carbon Dioxide Level 21 mmol/L Anion Gap 12.0 mmol/L Blood Urea Nitrogen 27 mg/dl Creatinine 1.40 mg/dl Est Creatinine Clear Calc Drug Dose 30.5 ml/min Estimated GFR () 42.2 Estimated GFR (Non- 36.4 BUN/Creatinine Ratio 19.4 Random Glucose 497 mg/dl Calcium Level 9.1 mg/dl Magnesium Level 1.9 mg/dl Total Bilirubin 0.3 mg/dl Direct Bilirubin < 0.1 mg/dl Aspartate Amino Transf (AST/SGOT) 22 U/L Alanine Aminotransferase (ALT/SGPT) 26 U/L Alkaline Phosphatase 101 U/L Total Creatine Kinase 57 U/L Creatine Kinase MB < 0.5 ng/ml Creatine Kinase MB Ratio Troponin I < 0.015 ng/ml Total Protein 7.3 gm/dl Albumin 3.5 gm/dl Amylase Level 77 U/L Lipase 3140 U/L Beta-Hydroxybutyric Acid 4.92 mg/dL Test 08/25/17 23:00 08/25/17 23:30 08/26/17 00:09 08/26/17 05:17 Urine Color YELLOW Urine Appearance CLEAR Urine pH 5.5 Urine Specific [place] 1.031 Urine Protein TRACE Urine Glucose (UA) 3+ Urine Ketones TRACE Urine Occult Blood NEG Urine Nitrite NEG Urine Bilirubin NEG Urine Urobilinogen NEG Urine Leukocyte Esterase NEG Urine WBC (Auto) 10-30 /hpf Urine RBC (Auto) 0-4 /hpf Urine Hyaline Casts (Auto) 1-5 /lpf Urine Epithelial Cells (Auto) >30 /lpf Urine Bacteria (Auto) NEG Total Creatine Kinase 59 U/L 48 U/L Creatine Kinase MB 1.0 ng/ml 0.7 ng/ml Creatine Kinase MB Ratio 1.7 1.5 Troponin I 0.022 ng/ml 0.029 ng/ml Bedside Glucose 330 mg/dl White Blood Count 11.53 K/uL Red Blood Count 4.21 M/uL Hemoglobin 13.4 g/dL Hematocrit 36.3 % Mean Corpuscular Volume 86.2 fL Mean Corpuscular Hemoglobin 31.8 pg Mean Corpuscular Hemoglobin Concent 36.9 g/dl RDW Standard Deviation 41.0 fL RDW Coefficient of Variation 13.0 % Platelet Count 199 K/uL Mean Platelet Volume 9.2 fL Sodium Level 141 mmol/L Potassium Level 3.3 mmol/L Chloride Level 108 mmol/L Carbon Dioxide Level 23 mmol/L Anion Gap 10.0 mmol/L Blood Urea Nitrogen 21 mg/dl Creatinine 1.10 mg/dl Est Creatinine Clear Calc Drug Dose 38.5 ml/min Estimated GFR () 56.5 Estimated GFR (Non- 48.7 BUN/Creatinine Ratio 18.7 Random Glucose 199 mg/dl Estimated Average Glucose 266 mg/dl Hemoglobin A1c 10.9 % Calcium Level 8.1 mg/dl Test 08/26/17 06:05 08/26/17 11:31 Bedside Glucose 221 mg/dl 238 mg/dl Impression Patient is a 76 year old female w epigastric abd pain radiating to lower back, nausea, noted to have elevated lipase w normal LFTs, abd u/s consistent w pancreatitis. She was also found to have hyperglycemia on admission w BS >500s. She has hx of pancreas head cyst likely IPMN vs pseudocyst, pancreas divisum, s/ p cholecytectomy, EUS/ERCP for sphincterectomy, pancreas stent placements last done in 07/2015 Plan - Obtain CT pancreas w/o contrast (allergic to iodinated contrast agents) - NPO except sips and chips - LR @ 150ml/hr/ - Antiemetics and analgesics prn for symptomatic management - Plan for outpt repeat EUS/ERCP for pancreas stent placement once DC'd.
--- NOTE | 2017-08-26 13:44 | DIAGNOSTIC IMAGING REPORT ---
ABDOMEN NO IV/ORAL CONT (CT) CLINICAL HISTORY: 76 years-old Female presenting with pancreatitis, hx of panc head cyst, divisum. TECHNIQUE: Multidetector CT of the abdomen was performed without the use of intravenous contrast. IV contrast: None. A dose lowering technique was used consistent with the principles of ALARA (as low as reasonably achievable). COMPARISON: 01/24/2017. CT DOSE (mGy.cm): The estimated cumulative dose is 273.32 mGy.cm. FINDINGS: Kettle Coordinator topogram: Cholecystectomy clips noted. Lung bases: Minimal dependent changes likely atelectasis. Mitral annular, aortic valve, and coronary artery calcification. Mild multichamber enlargement of the heart. No pericardial or pleural effusion. Liver: Normal morphology. Parenchymal calcifications could suggest prior granulomatous infection. Hepatic steatosis. Biliary: No gross biliary ductal dilatation allowing for noncontrast technique. Gallbladder surgically absent. Pancreas: Mild parenchymal atrophy. Subtle minimal peripancreatic fat infiltration along the tail. No fluid collection. Parenchymal coarse calcification in the pancreatic head could relate to a history of chronic pancreatitis. A small cystic lesion may be present at the uncinate (series 3 image 176), measuring 1 cm, not significantly changed from prior MR in 2015 and either a small intraductal papillary mucinous neoplasm or side branch dilatation as sequela of chronic pancreatitis. Spleen: Few punctate parenchymal calcification suggested, also likely related to granulomatous disease. Adrenal glands: Normal noncontrast appearance. Kidneys and ureters: Normal noncontrast appearance. No hydronephrosis. Bowel: Prominent diverticula noted at the hepatic flexure. No diverticulitis. Normal appendix. No bowel obstruction. Small hiatal hernia suggested. Peritoneal cavity: No free fluid or intraperitoneal gas. Lymph nodes: Few scattered subcentimeter as enteric lymph nodes, possibly reactive. Vasculature: Allowing for noncontrast technique, suggestion of mesenteric or retroperitoneal varices along the right pericaval region. Atherosclerosis of the normal caliber abdominal aorta. Abdominal wall: Normal. Musculoskeletal: Degenerative changes of the spine. IMPRESSION: 1. Suggestion of mild interstitial edematous pancreatitis. Correlate with lipase. No acute peripancreatic fluid collection. 2. Findings also suggest a history of chronic pancreatitis. 3. Possible retroperitoneal varices, which are better evaluated with intravenous contrast. Electronically signed by: Paul Coronado M.D. 08/26/2017 1:43 PM Dictated Date/Time: 08/26/2017 1:31 PM
[2017-08-26] MEDS: ACETAMINOPHEN 325 MG TAB PO PRN (18:04)
[2017-08-26] MEDS: PANTOprazole SOD 40 MG TAB PO SCH (21:01)
[2017-08-26] MEDS: ATORVASTATIN 10 MG TAB PO SCH (21:01)
[2017-08-26] MEDS: MIRTAZAPINE TAB 15 MG TAB PO SCH (21:02)
[2017-08-27 04:00] VITALS: BP 153/72; PULSE 57; TEMP 36.4; O2SAT 94
[2017-08-27] MEDS: INSULIN ASPART 100 UNITS/ML 3 ML PEN SC SCH ×3 (06:00→20:36)
[2017-08-27] MEDS: LACTATED RINGER'S 1000ML 1,000 ML IV SCH ×2 (06:18→14:23)
[2017-08-27] MEDS: HEPARIN SOD 5000 UNIT/0.5 ML CARP SQ SCH ×3 (06:19→21:31)
[2017-08-27 07:37] VITALS: BP 143/82; PULSE 60; TEMP 36.2; O2SAT 94
[2017-08-27 08:22] LABS: HEMATOCRIT 36.7 % (37-47); MEAN CELL VOLUME 88.2 fL (80-100); MEAN CORPUSCULAR HGB CONC 34.1 g/dl (32-36); PLATELET COUNT 191 K/uL (130-400); RED BLOOD COUNT 4.16 M/uL (4.2-5.4); WHITE BLOOD COUNT 9.68 K/uL (4.8-10.8)
[2017-08-27] MEDS: INSULIN GLARGINE SOLOSTAR 100 UNITS/ML 3 ML PEN SC SCH ×2 (08:41→20:37)
[2017-08-27] MEDS: PANTOprazole SOD 40 MG TAB PO SCH ×2 (08:42→20:34)
[2017-08-27] MEDS: ASPIRIN 81 MG ECTAB PO SCH (08:42)
[2017-08-27] MEDS: AMLODIPINE BESYLATE 5 MG TAB PO SCH (08:42)
[2017-08-27] MEDS: CLOPIDOGREL BISULFATE 75 MG TAB PO SCH (08:42)
[2017-08-27] MEDS: METOPROLOL TARTRATE 50 MG TAB PO SCH ×2 (08:42→20:33)
[2017-08-27 08:43] LABS: ALB/GLOB RATIO 0.9 (0.9-2); CALCIUM 8.5 mg/dl (8.5-10.1); CREATININE 0.97 mg/dl (0.60-1.20); POTASSIUM 3.7 mmol/L (3.5-5.1)
[2017-08-27] MEDS: LOSARTAN POTASSIUM 50 MG TAB PO SCH (08:43)
[2017-08-27] MEDS: GABAPENTIN 400 MG CAP PO SCH ×2 (08:43→20:34)
[2017-08-27] MEDS: ESCITALOPRAM OXALATE 10 MG TAB PO SCH (08:43)
[2017-08-27] MEDS ORDERED: NURSING VERBAL MED ORDER ONE ×2 (11:15→15:15)
[2017-08-27 11:17] VITALS: BP 146/84; PULSE 68; TEMP 36.4; O2SAT 96
--- NOTE | 2017-08-27 11:27 | Gastroenterology Progress Note ---
Progress Note Date of Service: Aug 27, 2017 Subjective Pt evaluation today including: conversation w/ patient, physical exam, chart review, lab review, review of inpatient medication list Pt still having some epigastric tenderness but improved. Mild nausea, no vomiting, willing to try CL diet. No BMs or flatus. Lipase 700s today Review of Systems Constitutional: No fever, No chills Respiratory: No cough Abdomen: + nausea, No pain, No vomiting Skin: No rash, No itch, No jaundice Medications Current Inpatient Medications Medications (Trade) Dose Ordered Sig/Rosetta Route Start Time Stop Time Status Last Admin Dose Admin Heparin Sodium (Porcine) (Heparin Sq 5000 Unit/0.5ml) 5,000 unit Q8 SQ 08/26/17 06:00 09/25/17 05:59 08/27/17 06:19 5,000 UNIT Acetaminophen (Tylenol Tab) 650 mg Q4H PRN PO 08/25/17 22:15 09/24/17 22:14 08/26/17 18:04 650 MG Ondansetron HCl (Zofran Inj) 4 mg Q6H PRN IV 08/25/17 22:15 09/24/17 22:14 08/25/17 23:54 4 MG Insulin Glargine (Lantus Solostar Pen) 40 units Q12 SC 08/26/17 09:00 09/25/17 08:59 08/27/17 08:41 40 UNITS Insulin Aspart (novoLOG ASPART) SLIDING SCALE If C... Q6 SC 08/25/17 23:00 09/24/17 22:59 08/26/17 18:07 4 UNITS Glucose (Glucose 40% Gel) 15-30 GRAMS 15 GRAMS... UD PRN PO 08/25/17 22:15 09/24/17 22:14 Glucose (Glucose Chew Tab) 4-8 Tablets 4 Tabl... UD PRN PO 08/25/17 22:15 09/24/17 22:14 Dextrose (Dextrose 50% 50ML Syringe) 25-50ML OF 50% DW IV FOR... UD PRN IV 08/25/17 22:15 09/24/17 22:14 Glucagon (Glucagon Inj) 1 mg UD PRN SQ 08/25/17 22:15 09/24/17 22:14 Miscellaneous Information (Consult Glycemic Management Pharmacy) 1 ea UD PRN N/A 08/25/17 22:18 09/24/17 22:17 Amlodipine Besylate (Norvasc Tab) 5 mg DAILY PO 08/26/17 09:00 09/25/17 08:59 08/27/17 08:42 5 MG Aspirin (Ecotrin Tab) 81 mg DAILY PO 08/26/17 09:00 09/25/17 08:59 08/27/17 08:42 81 MG Atorvastatin Calcium (Lipitor Tab) 10 mg QPM PO 08/25/17 22:30 09/24/17 22:29 08/26/17 21:01 10 MG Clopidogrel Bisulfate (plAVix TAB) 75 mg DAILY PO 08/26/17 09:00 09/25/17 08:59 08/27/17 08:42 75 MG Escitalopram Oxalate (Lexapro Tab) 15 mg QAM PO 08/26/17 09:00 09/25/17 08:59 08/27/17 08:43 15 MG Gabapentin (Neurontin Cap) 400 mg BID PO 08/25/17 22:30 09/24/17 22:29 08/27/17 08:43 400 MG Lorazepam (Ativan Tab) 0.5 mg Q6H PRN PO 08/25/17 22:30 09/24/17 22:29 08/26/17 21:00 0.5 MG Losartan Potassium (coZAAR TAB) 100 mg QAM PO 08/26/17 09:00 09/25/17 08:59 08/27/17 08:43 100 MG Metoprolol Tartrate (Lopressor Tab) 50 mg BID PO 08/26/17 09:00 09/25/17 08:59 08/27/17 08:42 50 MG Mirtazapine (Remeron Tab) 30 mg HS PO 08/25/17 22:30 09/24/17 22:29 08/26/17 21:02 30 MG Tramadol HCl (Ultram Tab) 50 mg Q6 PRN PO 08/25/17 22:30 09/24/17 22:29 08/26/17 21:00 50 MG Ropinirole HCl (Requip Tab) 1 mg HS PO 08/26/17 03:45 09/25/17 03:44 08/26/17 21:02 1 MG Lactated Ringer's 1,000 ml @ 100 mls/hr Q10H IV 08/26/17 10:15 09/25/17 10:14 08/27/17 06:18 150 MLS/HR Pantoprazole Sodium (Protonix Tab) 40 mg BID PO 08/26/17 21:00 09/25/17 20:59 08/27/17 08:42 40 MG Miscellaneous Information (Nursing Verbal Med Order) 1 ea ONE ONCE N/A 08/27/17 11:15 08/27/17 11:16 UNV Objective Vital Signs Date Time Temp Pulse Resp B/P (MAP) Pulse Ox O2 Delivery O2 Flow Rate FiO2 08/27/17 11:17 36.4 68 20 146/84 (104) 96 Room Air 08/27/17 08:00 Room Air 08/27/17 07:37 36.2 60 20 143/82 (102) 94 Room Air 08/27/17 04:00 Room Air 08/27/17 04:00 36.4 57 18 153/72 (99) 94 Room Air 08/27/17 00:05 Room Air 08/26/17 22:59 36.7 69 18 135/78 (97) 93 Room Air 08/26/17 21:10 36.2 64 20 155/81 (105) 95 Room Air 08/26/17 20:00 Room Air 08/26/17 16:00 Room Air 08/26/17 15:44 36.6 67 20 159/81 (107) 92 Room Air 08/26/17 11:53 Room Air 08/26/17 11:43 36.3 64 18 147/85 (105) 94 Room Air Physical Exam General Appearance: WD/WN, no apparent distress Eyes: normal inspection, PERRL, EOMI Neck: supple, no JVD, trachea midline Respiratory/Chest: normal breath sounds, no respiratory distress, no accessory muscle use Cardiovascular: regular rate, rhythm, no gallop, no murmur Abdomen: normal bowel sounds, soft, + tenderness (epigastric) Extremities: normal inspection, no pedal edema, no calf tenderness Neurologic/Psych: alert, normal mood/affect, oriented x 3 Skin: normal color, no jaundice, no rash Laboratory Results Last 24 Hours Test 08/26/17 11:31 08/26/17 17:55 08/26/17 23:54 08/27/17 06:13 Bedside Glucose 238 mg/dl 197 mg/dl 112 mg/dl 109 mg/dl Test 08/27/17 07:58 White Blood Count 9.68 K/uL Red Blood Count 4.16 M/uL Hemoglobin 12.5 g/dL Hematocrit 36.7 % Mean Corpuscular Volume 88.2 fL Mean Corpuscular Hemoglobin 30.0 pg Mean Corpuscular Hemoglobin Concent 34.1 g/dl RDW Standard Deviation 42.1 fL RDW Coefficient of Variation 13.1 % Platelet Count 191 K/uL Mean Platelet Volume 9.0 fL Sodium Level 145 mmol/L Potassium Level 3.7 mmol/L Chloride Level 113 mmol/L Carbon Dioxide Level 25 mmol/L Anion Gap 7.0 mmol/L Blood Urea Nitrogen 12 mg/dl Creatinine 0.97 mg/dl Est Creatinine Clear Calc Drug Dose 43.8 ml/min Estimated GFR () 65.8 Estimated GFR (Non- 56.7 BUN/Creatinine Ratio 12.0 Random Glucose 102 mg/dl Calcium Level 8.5 mg/dl Total Bilirubin 0.3 mg/dl Aspartate Amino Transf (AST/SGOT) 23 U/L Alanine Aminotransferase (ALT/SGPT) 19 U/L Alkaline Phosphatase 83 U/L Total Protein 5.8 gm/dl Albumin 2.7 gm/dl Globulin 3.1 gm/dl Albumin/Globulin Ratio 0.9 Lipase 792 U/L Assessment and Plan Patient is a 76 year old female w epigastric abd pain radiating to lower back, nausea, noted to have elevated lipase w normal LFTs, abd u/s consistent w pancreatitis. She was also found to have hyperglycemia on admission w BS >500s. She has hx of pancreas head cyst likely IPMN vs pseudocyst, pancreas divisum, s/ p cholecytectomy, EUS/ERCP for sphincterectomy, pancreas stent placements last done in 07/2015 CT abd/pelvis w/o contrast showed 1cm pancreas uncinate process cyst, similar to prior studies. No fluid collection, + chronic pancreatitis. She is symptomatically improved. Plans - CL diet; advance slowly as tolerated to low fat diet. - Decrease LR to 100ml/hr; may DC if tolerating PO intake well. - Antiemetics and analgesics prn for symptomatic management - Plan for outpt repeat EUS/ERCP for possible pancreas stent placement once DC' d.
[2017-08-27] MEDS ORDERED: INSULIN ASPART 100 UNITS/ML 3 ML PEN SC SCH (12:30)
[2017-08-27 15:07] VITALS: BP 154/80; PULSE 68; TEMP 36.7; O2SAT 93
--- NOTE | 2017-08-27 16:04 | Progress Note ---
Internal Med Progress Note Date of Service: Aug 27, 2017. Provider Documentation: SUBJECTIVE: The patient was seen and examined Admitted with Epigastric pain that goes to the back and associated with Nausea Still has some epigastric pain Much better today Clears started and advance as tolerated OBJECTIVE: Vital Signs-as noted below Exam: General-NO distress at rest Eyes-normal ENT-normal Neck-supple Lungs-Clear to ausucltate bilaterally Heart-Regular Abdomen-Soft,mildly tender epigastrium Extremities-NO edema Neuro-AAOx3 Lab data as noted below. ASSESSMENT & PLAN: 76 yo F with acute pancreatitis Acute Recurrent pancreatitis- Meets SIRS criteria on admission History of Pancreatitis and pancreatic stent before Etiologies likely related to--but not limited to-- prior etiologies including pancreatic cysts vs pancreatic divism vs pancreatic stent occlusion vs other. Consult GI.-appreciate Input Cont supportive care efforts with IVF, min PO meds and NPO for bowel rest at this time. CT of the Abdomen -pancreatic protocol Clinically much better CT of the abdomen showed -Chronic pancreatitis Lipase is improving Advance diet as tolerated EUS as an OP Hyperglycemia- Blood sugar >500 on admission and no signs of DKA IV and SQ insulin given in the ER with improvement in blood sugar <200. Cont Lantus/ISS with carb coverage once she begins eating again. Diabetes is uncontrolled with A1C 11 Blood sugar is maintained . H/O stroke-R sided residual weakness. Cont secondary prophy with Plavix, ASA 81 and statin daily. Depression-stable, Cont Lexapro 15mg PO qAM Insomnia-appears 2/2 RLS and recent pancreatitis. Cont Mirtazapine and Requip. Hold trazodone in effort to minimize PO intake. Consider TSH, B12, 25OH if not improved this admission. HTN-improved after IV hydralazine in ER. Cont Cozaar and Norvasc per home med regimen. DVT proph: Heparin SQ Full Code Dispo- Will need to stay for a few days Vital Signs: Date Time Temp Pulse Resp B/P (MAP) Pulse Ox O2 Delivery O2 Flow Rate FiO2 08/27/17 15:07 36.7 68 20 154/80 (104) 93 Room Air 08/27/17 12:00 Room Air 08/27/17 11:17 36.4 68 20 146/84 (104) 96 Room Air 08/27/17 08:00 Room Air 08/27/17 07:37 36.2 60 20 143/82 (102) 94 Room Air 08/27/17 04:00 Room Air 08/27/17 04:00 36.4 57 18 153/72 (99) 94 Room Air 08/27/17 00:05 Room Air 08/26/17 22:59 36.7 69 18 135/78 (97) 93 Room Air 08/26/17 21:10 36.2 64 20 155/81 (105) 95 Room Air 08/26/17 20:00 Room Air Lab Results: Results Past 24 Hours Test 08/26/17 17:55 08/26/17 23:54 08/27/17 06:13 08/27/17 07:58 Range/Units Bedside Glucose 197 112 109 70-90 mg/dl White Blood Count 9.68 4.8-10.8 K/uL Red Blood Count 4.16 4.2-5.4 M/uL Hemoglobin 12.5 12.0-16.0 g/dL Hematocrit 36.7 37-47 % Mean Corpuscular Volume 88.2 80-100 fL Mean Corpuscular Hemoglobin 30.0 25-34 pg Mean Corpuscular Hemoglobin Concent 34.1 32-36 g/dl RDW Standard Deviation 42.1 36.4-46.3 fL RDW Coefficient of Variation 13.1 11.5-14.5 % Platelet Count 191 130-400 K/uL Mean Platelet Volume 9.0 7.4-10.4 fL Sodium Level 145 136-145 mmol/L Potassium Level 3.7 3.5-5.1 mmol/L Chloride Level 113 98-107 mmol/L Carbon Dioxide Level 25 21-32 mmol/L Anion Gap 7.0 3-11 mmol/L Blood Urea Nitrogen 12 7-18 mg/dl Creatinine 0.97 0.60-1.20 mg/dl Est Creatinine Clear Calc Drug Dose 43.8 ml/min Estimated GFR () 65.8 Estimated GFR (Non- 56.7 BUN/Creatinine Ratio 12.0 10-20 Random Glucose 102 70-99 mg/dl Calcium Level 8.5 8.5-10.1 mg/dl Total Bilirubin 0.3 0.2-1 mg/dl Aspartate Amino Transf (AST/SGOT) 23 15-37 U/L Alanine Aminotransferase (ALT/SGPT) 19 12-78 U/L Alkaline Phosphatase 83 45-117 U/L Total Protein 5.8 6.4-8.2 gm/dl Albumin 2.7 3.4-5.0 gm/dl Globulin 3.1 2.5-4.0 gm/dl Albumin/Globulin Ratio 0.9 0.9-2 Lipase 792 73-393 U/L Test 08/27/17 11:22 Range/Units Bedside Glucose 121 70-90 mg/dl
--- NOTE | 2017-08-27 18:24 | Pharmacy Progress Note ---
Glycemic: Assessment & Plan Date of Service Aug 27, 2017. Assessment & Plan RN called re: BSG of 79 prior to dinner (this was after CHO coverage with lunch in addition to some cranberry juice that the patient requested) Will loosen CR from 1:5 -> 1:7 Glycemic pharmacist to f/u in the AM
[2017-08-27 19:45] VITALS: BP 172/77; PULSE 72; TEMP 36.8; O2SAT 97
[2017-08-27] MEDS: TRAMADOL HCL 50 MG TAB PO PRN (19:51)
[2017-08-27] MEDS: ATORVASTATIN 10 MG TAB PO SCH (20:33)
[2017-08-27] MEDS: MIRTAZAPINE TAB 15 MG TAB PO SCH (20:35)
[2017-08-27] MEDS: ROPINIROLE HCL 1 MG TAB PO SCH (20:35)
[2017-08-27 23:24] VITALS: BP_SYST 115; BP_SYST 154; BP_DIAS 65; BP_DIAS 73; PULSE 57; PULSE 62; TEMP 36.5; TEMP 36.9; O2SAT 93; O2SAT 98
[2017-08-28 03:44] VITALS: BP 144/66; PULSE 61; TEMP 36.6; O2SAT 94
[2017-08-28] MEDS: HEPARIN SOD 5000 UNIT/0.5 ML CARP SQ SCH ×3 (05:25→20:50)
[2017-08-28 06:47] LABS: BUN/CREATININE RATIO 9.8 (10-20); CALCIUM 8.3 mg/dl (8.5-10.1); POTASSIUM 3.7 mmol/L (3.5-5.1)
[2017-08-28 06:50] LABS: ALB/GLOB RATIO 0.8 (0.9-2)
[2017-08-28 07:21] VITALS: BP 147/71; PULSE 60; TEMP 37; O2SAT 92
[2017-08-28] MEDS: ACETAMINOPHEN 325 MG TAB PO PRN (07:55)
[2017-08-28] MEDS: LOSARTAN POTASSIUM 50 MG TAB PO SCH (07:56)
[2017-08-28] MEDS: GABAPENTIN 400 MG CAP PO SCH ×2 (07:56→20:43)
[2017-08-28] MEDS: CLOPIDOGREL BISULFATE 75 MG TAB PO SCH (07:56)
[2017-08-28] MEDS: ESCITALOPRAM OXALATE 10 MG TAB PO SCH (07:56)
[2017-08-28] MEDS: PANTOprazole SOD 40 MG TAB PO SCH ×2 (07:56→20:43)
[2017-08-28] MEDS: ASPIRIN 81 MG ECTAB PO SCH (07:57)
[2017-08-28] MEDS: AMLODIPINE BESYLATE 5 MG TAB PO SCH (07:57)
[2017-08-28] MEDS: METOPROLOL TARTRATE 50 MG TAB PO SCH ×2 (07:58→20:42)
[2017-08-28] MEDS: INSULIN GLARGINE SOLOSTAR 100 UNITS/ML 3 ML PEN SC SCH ×2 (08:07→20:49)
[2017-08-28] MEDS: INSULIN ASPART 100 UNITS/ML 3 ML PEN SC SCH ×4 (08:07→20:49)
--- NOTE | 2017-08-28 08:18 | Pharmacy Progress Note ---
Glycemic Control Progress Note Date of Service Aug 28, 2017. Scope Glycemic Pharmacist consulted for glycemic control to write orders per [facility] inpatient glycemic control protocol. Objective Accuchecks BSG (last 24hrs): Test 08/27/17 11:22 08/27/17 14:48 08/27/17 16:14 08/27/17 20:05 Bedside Glucose 121 mg/dl (70-90) 131 mg/dl (70-90) 79 mg/dl (70-90) 125 mg/dl (70-90) Test 08/28/17 05:34 08/28/17 07:32 Random Glucose 71 mg/dl (70-99) Bedside Glucose 77 mg/dl (70-90) HbA1c: Test 08/26/17 05:17 Hemoglobin A1c 10.9 % (4.5-5.6) H Recent Pertinent Medications The patient is currently receiving: * Basal insulin: Lantus 40 units every 12 hours * Correctional Insulin: Novolog Correction per scale ACHS Goal Range: Low 120 mg/dL - High 150 mg/dL Correction Factor: 15 mg/dL/unit * Prandial insulin: Per carb ratio of 1 unit per 7 grams CHO consumed Outpatient Anti-Diabetic Meds * Novolin 70/30 80 units BID * Novolog ACHS per sliding scale * A1c = 10.9 % 08/26/17 Assessment & Plan ASSESSMENT: * See progress note from 08/25 for more background info, in short: * Pt receiving SQ basal bolus insulin regimen for hyperglycemia secondary to baseline DM (outpatient regimen on hold) * Patient is currently receiving an average of 100 units of insulin per day * 80 units of basal insulin * 20 units of prandial/correctional insulin * BSGs ranging 71 - 125 mg/dl over the past 24hrs * Changes needed to insulin regimen: * AM Fasting BSG = 71 mg/dl. This is in slightly below goal range for patient based on inpatient targets and co-morbidities. Therefore Basal insulin needs decreased. * Post-prandial BSGs are trending downwards throughout the day (insulin stacking) therefore need to loosen CF/CR * Additional notes / comments: * Diet advanced to Type 2 DM diet today from [facility] PLAN FOR INPATIENT GLYCEMIC CONTROL: * DECREASE Basal insulin * Lantus 36 units SQ BID * Bolus insulin * NovoLog per scale ACHS or Q6hrs while NPO * Goal Range: Low 120 mg/dL - High 150 mg/dL * LOOSEN: Correction Factor: 20 mg/dL/unit * Nutritional / Prandial insulin per carb ratio of 1 unit per 7 grams CHO consumed (was loosened last night from 5) * Please note that the plan above was derived based on current level of insulin resistance and hospital stress. These recommendations are appropriate for inpatient admission only. Plan of care upon discharge will need to be reassessed to avoid potential outpatient hypo/hyperglycemia. Thank you.
[2017-08-28 11:08] VITALS: BP 144/61; PULSE 60; TEMP 37.1; O2SAT 94
[2017-08-28 15:01] VITALS: BP 151/65; PULSE 60; TEMP 36.9; O2SAT 98
[2017-08-28 15:26] VITALS: Ht 152.4 cm; Wt 75.2 kg
[2017-08-28 19:44] VITALS: BP 156/81; PULSE 72; TEMP 36.8; O2SAT 96
[2017-08-28] MEDS: MIRTAZAPINE TAB 15 MG TAB PO SCH (20:42)
[2017-08-28] MEDS: ATORVASTATIN 10 MG TAB PO SCH (20:44)
[2017-08-28] MEDS: ROPINIROLE HCL 1 MG TAB PO SCH (20:44)
[2017-08-28] MEDS: LORAZEPAM 0.5 MG TAB PO PRN (20:56)
[2017-08-29 00:13] VITALS: BP 130/56; PULSE 68; TEMP 36.7; O2SAT 94
[2017-08-29 04:00] VITALS: BP 145/72; PULSE 61; TEMP 36.8; O2SAT 94
[2017-08-29] MEDS: HEPARIN SOD 5000 UNIT/0.5 ML CARP SQ SCH (05:33)
[2017-08-29 07:26] VITALS: BP 130/65; PULSE 70; TEMP 37.6; O2SAT 91
[2017-08-29] MEDS: GABAPENTIN 400 MG CAP PO SCH (08:14)
[2017-08-29] MEDS: LOSARTAN POTASSIUM 50 MG TAB PO SCH (08:15)
[2017-08-29] MEDS: ESCITALOPRAM OXALATE 10 MG TAB PO SCH (08:16)
[2017-08-29] MEDS: AMLODIPINE BESYLATE 5 MG TAB PO SCH (08:16)
[2017-08-29] MEDS: ASPIRIN 81 MG ECTAB PO SCH (08:16)
[2017-08-29] MEDS: PANTOprazole SOD 40 MG TAB PO SCH (08:16)
[2017-08-29] MEDS: METOPROLOL TARTRATE 50 MG TAB PO SCH (08:18)
[2017-08-29] MEDS: CLOPIDOGREL BISULFATE 75 MG TAB PO SCH (08:18)
[2017-08-29] MEDS: INSULIN ASPART 100 UNITS/ML 3 ML PEN SC SCH ×2 (08:57→12:21)
[2017-08-29] MEDS: INSULIN GLARGINE SOLOSTAR 100 UNITS/ML 3 ML PEN SC SCH (09:55)
--- NOTE | 2017-08-29 10:55 | Progress Note ---
Internal Med Progress Note Date of Service: Aug 29, 2017. Provider Documentation: This is a bill for 08/28/17 SUBJECTIVE: The patient was seen and examined Admitted with Epigastric pain that goes to the back and associated with Nausea Still has some epigastric pain Much better today Clears started and advance as tolerated Still complains of pain in epigastrium OBJECTIVE: Vital Signs-as noted below Exam: General-NO distress at rest Eyes-normal ENT-normal Neck-supple Lungs-Clear to ausucltate bilaterally Heart-Regular Abdomen-Soft,mildly tender epigastrium and upper abdomen Extremities-NO edema Neuro-AAOx3 Lab data as noted below. ASSESSMENT & PLAN: 76 yo F with acute pancreatitis Acute Recurrent pancreatitis- Meets SIRS criteria on admission History of Pancreatitis and pancreatic stent before Etiologies likely related to--but not limited to-- prior etiologies including pancreatic cysts vs pancreatic divism vs pancreatic stent occlusion vs other. Consult GI.-appreciate Input Cont supportive care efforts with IVF, min PO meds and NPO for bowel rest at this time. CT of the Abdomen -pancreatic protocol Clinically much better CT of the abdomen showed -Chronic pancreatitis Lipase is improving Advance diet as tolerated EUS as an OP Clinically better but not yet ready to be discharged Hyperglycemia- Blood sugar >500 on admission and no signs of DKA IV and SQ insulin given in the ER with improvement in blood sugar <200. Cont Lantus/ISS with carb coverage once she begins eating again. Diabetes is uncontrolled with A1C 11 Blood sugar is maintained . H/O stroke-R sided residual weakness. Cont secondary prophy with Plavix, ASA 81 and statin daily. Depression-stable, Cont Lexapro 15mg PO qAM Insomnia-appears 2/2 RLS and recent pancreatitis. Cont Mirtazapine and Requip. Hold trazodone in effort to minimize PO intake. Consider TSH, B12, 25OH if not improved this admission. HTN-improved after IV hydralazine in ER. Cont Cozaar and Norvasc per home med regimen. DVT proph: Heparin SQ Full Code Dispo- Will need to stay for a few days Vital Signs: Date Time Temp Pulse Resp B/P (MAP) Pulse Ox O2 Delivery O2 Flow Rate FiO2 08/29/17 08:00 Room Air 08/29/17 07:26 37.6 70 18 130/65 (86) 91 Room Air 08/29/17 04:05 Room Air 08/29/17 04:00 36.8 61 14 145/72 (96) 94 08/29/17 00:13 36.7 68 16 130/56 (80) 94 08/29/17 00:04 Room Air 08/28/17 20:03 Room Air 08/28/17 19:44 36.8 72 18 156/81 (106) 96 Room Air 08/28/17 16:04 Room Air 08/28/17 15:01 36.9 60 20 151/65 (93) 98 Room Air 08/28/17 12:00 Room Air 08/28/17 11:08 37.1 60 18 144/61 (88) 94 Room Air Lab Results: Results Past 24 Hours Test 08/28/17 11:21 08/28/17 16:54 08/28/17 20:23 08/29/17 07:18 Range/Units Bedside Glucose 322 80 213 186 70-90 mg/dl
[2017-08-29 11:04] VITALS: BP 155/70; PULSE 68; TEMP 36.9; O2SAT 97
--- NOTE | 2017-08-29 11:30 | Progress Note ---
Internal Med Progress Note Date of Service: Aug 29, 2017. Provider Documentation: SUBJECTIVE: The patient was seen and examined Admitted with Epigastric pain that goes to the back and associated with Nausea Epigastric pain is much better Complains of discomfort only Ready to go home OBJECTIVE: Vital Signs-as noted below Exam: General-NO distress at rest Eyes-normal ENT-normal Neck-supple Lungs-Clear to ausucltate bilaterally Heart-Regular Abdomen-Soft,mildly tender epigastrium and upper abdomen No guarding and or rigidity Extremities-NO edema Neuro-AAOx3 Lab data as noted below. ASSESSMENT & PLAN: 76 yo F with acute pancreatitis Acute Recurrent pancreatitis- Meets SIRS criteria on admission History of Pancreatitis and pancreatic stent before Etiologies likely related to--but not limited to-- prior etiologies including pancreatic cysts vs pancreatic divism vs pancreatic stent occlusion vs other. Consult GI.-appreciate Input Cont supportive care efforts with IVF, min PO meds and NPO for bowel rest at this time. CT of the Abdomen -pancreatic protocol Clinically much better CT of the abdomen showed -Chronic pancreatitis Lipase is improving Advance diet as tolerated and tolerating regular diet EUS as an OP as per GI Will discharge today -small frequent meals,avoid fatty foods Hyperglycemia- Blood sugar >500 on admission and no signs of DKA IV and SQ insulin given in the ER with improvement in blood sugar <200. Cont Lantus/ISS with carb coverage once she begins eating again. Diabetes is uncontrolled with A1C 11 Blood sugar is maintained . H/O stroke-R sided residual weakness. Cont secondary prophy with Plavix, ASA 81 and statin daily. No new symptoms Depression-stable, Cont Lexapro 15mg PO qAM Controlled Insomnia-appears 2/2 RLS and recent pancreatitis. Cont Mirtazapine and Requip. Hold trazodone in effort to minimize PO intake. Consider TSH, B12, 25OH if not improved this admission. HTN-improved after IV hydralazine in ER. Cont Cozaar and Norvasc per home med regimen. DVT proph: Heparin SQ Full Code Dispo- Discharge home today Vital Signs: Date Time Temp Pulse Resp B/P (MAP) Pulse Ox O2 Delivery O2 Flow Rate FiO2 08/29/17 11:04 36.9 68 18 155/70 (98) 97 Room Air 08/29/17 08:00 Room Air 08/29/17 07:26 37.6 70 18 130/65 (86) 91 Room Air 10/7/17 04:05 Room Air 08/29/17 04:00 36.8 61 14 145/72 (96) 94 08/29/17 00:13 36.7 68 16 130/56 (80) 94 08/29/17 00:04 Room Air 08/28/17 20:03 Room Air 08/28/17 19:44 36.8 72 18 156/81 (106) 96 Room Air 08/28/17 16:04 Room Air 08/28/17 15:01 36.9 60 20 151/65 (93) 98 Room Air 08/28/17 12:00 Room Air Lab Results: Results Past 24 Hours Test 08/28/17 16:54 08/28/17 20:23 08/29/17 07:18 08/29/17 11:16 Range/Units Bedside Glucose 80 213 186 253 70-90 mg/dl
--- NOTE | 2017-08-29 11:34 | Discharge Instructions ---
Discharge Instructions Date of Service Aug 29, 2017. Admission Reason for Admission: Acute Pancreatitis Discharge Discharge Diagnosis / Problem: Acute Recurrent Pancreatitis Discharge Goals Goal(s): Prevent Disease Progression Activity Recommendations Activity Limitations: resume your previous activity . Instructions / Follow-Up Instructions / Follow-Up Dr Rojo on 09/01/17 at 10:45 AM.GI will call with appointment for EUS Current Hospital Diet Patient's current hospital diet: Low Fat Diet, Diabetes Type 2 Diet Discharge Diet Recommended Diet: Diabetes Type 2 Diet, Low Fat Diet Pending Studies Studies pending at discharge: no Laboratory Results Hemoglobin A1c Test 08/26/17 05:17 Range/Units Estimated Average Glucose 266 mg/dl Hemoglobin A1c 10.9 H 4.5-5.6 % Medical Emergencies . Who to Call and When: Medical Emergencies: If at any time you feel your situation is an emergency, please call 911 immediately. . Non-Emergent Contact Non-Emergency issues call your: Primary Care Provider . Past History Medical & Surgical History: (1) Acute pancreatitis (2) TIA (transient ischemic attack) (3) CVA (cerebrovascular accident) (4) Ischemic stroke (5) Giant cell arteritis (6) Diabetic neuropathy (7) Diabetes mellitus type 2 (8) High blood pressure (9) Depression (10) Chronic obstructive lung disease (11) CKD (chronic kidney disease), stage III (12) History of cholecystectomy (13) History of - tubal ligation (14) cataract surgery (15) S/p fixation of left ankle fracture (16) H/O esophagogastroduodenoscopy (17) S/P ERCP (18) S/P ERCP . "Provider Documentation" section prepared by Yony Gonzalez. . VTE Core Measure Inpt VTE Proph given/why not?: Unfractionated heparin SQ
[2017-08-29 11:40] VITALS: BP 155/70; PULSE 68; TEMP 36.9; O2SAT 97
== END 2017-08-29 13:13 | disposition home health service (06) | DRG 439 ==
LOC: C.EDB 15:55 → C.MED 21:22 → ENRESERV 21:40
PROVIDERS: ADMIT Hospitalist; ATTEND Internal Medicine
DX: K85.90 Acute pancreatitis without necrosis or infection, unspecified (principal); I69.351 Hemiplegia and hemiparesis following cerebral infarction affecting right dominant side; R65.10 Systemic inflammatory response syndrome (SIRS) of non-infectious origin without acute organ dysfunction; K86.1 Other chronic pancreatitis; I12.9 Hypertensive chronic kidney disease with stage 1 through stage 4 chronic kidney disease, or unspecified chronic kidney disease; E11.65 Type 2 diabetes mellitus with hyperglycemia; N18.3 Chronic kidney disease, stage 3 (moderate); E11.40 Type 2 diabetes mellitus with diabetic neuropathy, unspecified; E11.22 Type 2 diabetes mellitus with diabetic chronic kidney disease; G47.00 Insomnia, unspecified; F32.9 Major depressive disorder, single episode, unspecified; Z79.82 Long term (current) use of aspirin; Z79.899 Other long term (current) drug therapy; Z79.02 Long term (current) use of antithrombotics/antiplatelets; Z79.4 Long term (current) use of insulin; Z79.52 Long term (current) use of systemic steroids; Z83.3 Family history of diabetes mellitus

== ENCOUNTER 2017-09-10 15:47 | Inpatient (IN) | payer OTHER, MEDICARE ==
[~2017-09-10] VITALS: Ht 152.4 cm; Wt 72.9 kg
[~2017-09-10 15:47] MED LIST changes: +AMLO-110 PO; -BENZ100C84 PO; +BUDE1SUS INH; -CETI10TA84 PO; -CLOP1TAB5 PO; +ESCI1TAB6 PO; +IPRASOL4 INH; +OMEP40CA41 PO; -PRD/1 PO; -PRLSR20 PO; +PRT/20 PO; +ZNTT/150 PO
[2017-09-10] MEDS ORDERED: ONDANSETRON INJ 2 MG/ML 2 ML VIAL IV STA (16:11)
[2017-09-10] MEDS ORDERED: FAMOTIDINE 20MG/102 ML D5W IV STA (16:11)
[2017-09-10] MEDS ORDERED: SODIUM CHLORIDE 0.9% 1000ML 1,000 ML IV STA ×2 (16:11→17:41)
--- NOTE | 2017-09-10 16:32 | EMERGENCY ROOM VISIT NOTE ---
History Report prepared by Coral: Bryant Duval Under the Supervision of: Dr. Payam Solorio M.D. First contact with patient: 16:03 Chief Complaint: BACK PAIN Stated Complaint: BACK PAIIN History of Present Illness The patient is a 77 year old female who presents to the Emergency Room with complaints of constant back pain beginning a few days ago. The patient states she had a pancreatic stent placed 1.5 years ago, and she is supposed to have it removed soon. She reports she was discharged from the hospital 12 days ago for pancreatitis. The patient states she felt fine for a few days after being discharged, then her symptoms began again. The patient notes she has been having lab work because of her fluctuating blood sugars. She states it has been fluctuating from the 500s to the 300s. The patient reports she went to bed last night with her sugar in the 500s and when she woke, it was in the 300s. She notes she has been taking her insulin as prescribed, and it was just increased to 35. The patient states she can see crystals in her urine, but denies blood and pain with urination. She reports she has been experiencing indigestion for the past three days. The patient notes her stools are normal when she eats soups , but it is runny when she eats solid foods. She states she has also been experiencing constant nausea and a cough. The patient reports she is able to keep her fluids down. She denies fevers and congestion. The patient notes she has a history of a cholecystectomy. Source of History: patient Onset: few days ago Position: back Timing: constant Associated Symptoms: + cough, + nausea Note: Associated symptoms: fluctuating blood sugars, crystals in urine, indigestion, increased urination, fluctuating stools Denies: pain with urination, blood with urination, congestion Review of Systems See HPI for pertinent positives and negatives. A total of ten systems were reviewed and were otherwise negative. 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 (12) Depression (13) Diabetes mellitus type 2 (14) Diabetic neuropathy (15) DKA (diabetic ketoacidoses) (16) Dyslipidemia (17) Esophageal dysmotility (18) Fatty liver (19) Gastroparesis (20) Giant cell arteritis (21) History of sleep apnea (22) Hypertensive urgency (23) Insomnia (24) Ischemic stroke (25) Pancreatic divisum (26) Sciatica (27) TIA (transient ischemic attack) Surgical Problems: (1) cataract surgery (2) H/O esophagogastroduodenoscopy (3) History of - tubal ligation (4) History of cholecystectomy (5) S/P ERCP (6) S/P ERCP (7) S/p fixation of left ankle fracture Family History Diabetes mellitus GRANDMOTHER MOTHER FH: Parkinson's disease Hypertension Stroke GRANDFATHER Social History Smoking Status: Never Smoker Alcohol Use: none Drug Use: none Marital Status: Housing Status: lives alone Occupation Status: retired Current/Historical Medications Scheduled Amlodipine (Norvasc), 5 MG PO QAM Aspirin (Aspirin), 81 MG PO QAM Atorvastatin (Atorvastatin Calcium), 10 MG PO QPM Clopidogrel (Plavix), 75 MG PO QAM Escitalopram (Lexapro), 10 MG PO QAM Escitalopram Oxalate (Lexapro), 5 MG PO QAM Gabapentin (Neurontin), 400 MG PO BID Insulin Aspart (Novolog), SQ ACHS Insulin Isophan/Regular (Novolin 70/30), 85 UNITS SC BID Losartan Potassium (Cozaar), 100 MG PO QAM Magnesium Oxide (Mag-Ox), 400 MG PO QAM Metoprolol Tartrate (Lopressor) (Lopressor), 50 MG PO BID Mirtazapine (Remeron), 30 MG PO HS Omeprazole (Prilosec), 40 MG PO QAM Pancrelipase (Lipase-Protease- (Creon), 6,000 UNITS PO QID Ranitidine (Zantac), 75 MG PO BID Ropinirole Hydrochloride (Requip), 1 MG PO HS Trazodone Hcl (Trazodone), 50 MG PO HS Scheduled PRN Budesonide (Inhalation) (Pulmicort), 0.5 MG INH BID PRN for SOB/Wheezing Docusate Sodium (Colace), 100 MG PO BID PRN for Constipation Ipratropium-Albuterol (Duoneb), 1 TREATMENT INH Q4H PRN for SOB/Wheezing Lorazepam (Ativan), 0.5 MG PO Q6H PRN for Anxiety Tramadol (Ultram), 50 MG PO Q6 PRN for Pain Allergies Coded Allergies: Iodinated Diagnostic Agents (Verified Allergy, Severe, RASH TO IVP DYE, NAUSEA, FAINTING, COUGHING, GAGGING, HEADACH, 09/10/17) Sulfa Antibiotics (Verified Allergy, Severe, HIVES, FACIAL AND ARM SWELLING, 09/10/17) Cerivastatin (Verified Allergy, Intermediate, HIVES, 09/10/17) Codeine (Verified Allergy, Intermediate, "PRICKLY RASH", 09/10/17) Hydroxyzine (Verified Allergy, Intermediate, N/V, 09/10/17) Latex1 -Allergic Contact Dermititis (Verified Allergy, Intermediate, DERMATITIS-PT TOLERATED A LATEX CATHETER 03/26/08, 09/10/17) Diphenhydramine (Verified Allergy, Mild, RASH; SLEEPINESS WITH "PHARBEDRYL ", 09/10/17) Loratadine (Verified Allergy, Mild, HIVES, 09/10/17) Sulfamethoxazole w/Trimethoprim (Verified Allergy, Mild, RASH, 09/10/17) Prednisone (Unverified Allergy, Unknown, unknown, 09/10/17) Tetanus Toxoid (Verified Adverse Reaction, Intermediate, SWELLING AT INJECTION SITE, 09/10/17) Alprazolam (Verified Adverse Reaction, Unknown, "SLEEPY STUPER", 09/10/17) Metformin (Verified Adverse Reaction, Unknown, DIARRHEA, 09/10/17) Morphine (Verified Adverse Reaction, Unknown, VOMITING, 09/10/17) Simvastatin (Verified Adverse Reaction, Unknown, COUGH, "DISCOMFORT", ) Physical Exam Vital Signs Date Time Temp Pulse Resp B/P (MAP) Pulse Ox O2 Delivery O2 Flow Rate FiO2 09/10/17 20:36 Room Air 09/10/17 20:15 83 20 180/116 98 Room Air 09/10/17 19:04 81 211/83 97 Room Air 09/10/17 17:11 88 09/10/17 15:52 37.0 109 20 170/93 98 Room Air Physical Exam GENERAL: Awake, alert, uncomfortable-appearing but in no distress HENT: Normocephalic, atraumatic. Oropharynx unremarkable. Dry mucus membranes. EYES: Normal conjunctiva. Sclera non-icteric. NECK: Supple. No nuchal rigidity. FROM. No JVD. RESPIRATORY: Clear to auscultation. CARDIAC: Regular rate, normal rhythm. Extremities warm and well perfused. Pulses equal. ABDOMEN: Soft, non-distended. Mild epigastric tenderness to palpation. No rebound or guarding. No masses. No peritoneal signs. RECTAL: Deferred. MUSCULOSKELETAL: Chest examination reveals no tenderness. The back is symmetrical on inspection without obvious abnormality. There is mild left CVA tenderness to palpation. No joint edema. LOWER EXTREMITIES: Calves are equal size bilaterally and non-tender. No edema. No discoloration. NEURO: Normal sensorium. No sensory or motor deficits noted. SKIN: No rash or jaundice noted. Medical Decision & Procedures ER Provider Diagnostic Interpretation: Radiology results as stated below per my review and radiologist interpretation: CHEST ONE VIEW PORTABLE CLINICAL HISTORY: Abdominal pain. COMPARISON STUDY: Chest radiograph August 25, 2017. FINDINGS: A right internal jugular [id number] remains in place. Mild cardiomegaly is unchanged. There is no evidence of pulmonary edema. No consolidation is identified to suggest pneumonia. No lucency is identified under the hemidiaphragms to suggest pneumoperitoneum on this study. Note is made of cholecystectomy clips. IMPRESSION: No acute cardiopulmonary findings. No change in appearance of the chest. Electronically signed by: Brijesh Jeter M.D. 09/10/2017 4:35 PM Dictated Date/Time: 09/10/2017 4:[address] SCAN OF THE ABDOMEN AND PELVIS WITHOUT IV CONTRAST CLINICAL HISTORY: Epigastric abdominal pain. COMPARISON STUDY: Abdominal CT scans dated 08/26/2017 and 01/24/2017. TECHNIQUE: CT scan of the abdomen and pelvis is performed from the lung bases to the proximal femora. Images are reviewed in the axial, sagittal, and coronal planes. IV contrast was not administered for this examination as per the referring clinician. Note that the examination was performed in significantly suboptimal fashion without oral and IV contrast. Automated dose control exposure was utilized. CT DOSE: 649.79 mGy.cm FINDINGS: Lung bases: The heart is enlarged and without pericardial effusion. There is lipomatous hypertrophy of the interatrial septum. The coronary arteries and mitral annulus are densely calcified. A punctate calcified granuloma is seen in the left lower lobe. No airspace consolidation or pleural effusion is identified. Dependent atelectasis is noted. There is a tiny hiatal hernia. Liver: The unenhanced liver is top normal in size measuring 17 cm in length. The liver demonstrates diffusely diminished attenuation consistent with hepatic steatosis. There are several calcified hepatic granulomas. Mild nodularity of the surface contour suggests early change of cirrhosis. There is no intrahepatic biliary ductal dilatation. Gallbladder: Surgically absent noting clips in the gallbladder fossa. Spleen: Normal in size and attenuation. There are small calcified splenic granulomas. Pancreas: The pancreas is atrophic. Coarse calcifications are noted in the pancreatic head. There is mild peripancreatic stranding. No peripancreatic fluid collection is seen. Adrenal glands: Unremarkable. Kidneys: The unenhanced kidneys are atrophic and without hydronephrosis. There are no renal calculi identified. There is no evidence of contour deforming renal mass lesion. A 9 mm fat attenuation lesion is seen in the upper pole of the left kidney consistent with a tiny angiomyolipoma. Abdominal vasculature: The abdominal aorta is normal in course and caliber noting moderate to advanced atherosclerotic calcification. Bowel: The small bowel and colon are normal in course and caliber. There is mild colonic diverticulosis without CT evidence of acute diverticulitis. The appendix is well-visualized and normal. Peritoneum: There is no intraperitoneal free air or abdominal ascites. There is a small fat-containing umbilical hernia. Lymphadenopathy: None. Pelvic viscera: The bladder, uterus, and adnexa are normal as visualized. Numerous calcified phleboliths are noted in the pelvis. Skeletal structures: The skeletal structures are osteopenic. No lytic or blastic lesions are seen. A hemangioma is noted in the body of L4. IMPRESSION: 1. Suboptimal examination without oral and IV contrast. 2. Findings are consistent with mild acute pancreatitis. This is similar appearance to the 08/26/2017 examination. Correlation with serum amylase/lipase levels is recommended. 3. Findings are consistent with hepatic steatosis. Mild nodularity of the hepatic surface contour suggests early change of cirrhosis. 4. Mild colonic diverticulosis without CT evidence of acute diverticulitis. 5. Additional findings as above. Electronically signed by: Ramez Blanchard M.D. 09/10/2017 6:44 PM Dictated Date/Time: 09/10/2017 6:38 PM Laboratory Results 09/10/17 16:50 Red Blood Count 4.36, Mean Corpuscular Volume 86.2, Mean Corpuscular Hemoglobin 31.4, Mean Corpuscular Hemoglobin Concent 36.4, Mean Platelet Volume 9.5, Neutrophils (%) (Auto) 55.3, Lymphocytes (%) (Auto) 30.8, Monocytes (%) (Auto) 7.2, Eosinophils (%) (Auto) 5.8, Basophils (%) (Auto) 0.6, Neutrophils # (Auto) 5.83, Lymphocytes # (Auto) 3.24, Monocytes # (Auto) 0.76, Eosinophils # (Auto) 0.61, Basophils # (Auto) 0.06 09/10/17 16:50 Test 09/10/17 16:50 09/10/17 18:54 White Blood Count 10.53 K/uL (4.8-10.8) Red Blood Count 4.36 M/uL (4.2-5.4) Hemoglobin 13.7 g/dL (12.0-16.0) Hematocrit 37.6 % (37-47) Mean Corpuscular Volume 86.2 fL (80-100) Mean Corpuscular Hemoglobin 31.4 pg (25-34) Mean Corpuscular Hemoglobin Concent 36.4 g/dl (32-36) Platelet Count 198 K/uL (130-400) Mean Platelet Volume 9.5 fL (7.4-10.4) Neutrophils (%) (Auto) 55.3 % Lymphocytes (%) (Auto) 30.8 % Monocytes (%) (Auto) 7.2 % Eosinophils (%) (Auto) 5.8 % Basophils (%) (Auto) 0.6 % Neutrophils # (Auto) 5.83 K/uL (1.4-6.5) Lymphocytes # (Auto) 3.24 K/uL (1.2-3.4) Monocytes # (Auto) 0.76 K/uL (0.11-0.59) Eosinophils # (Auto) 0.61 K/uL (0-0.5) Basophils # (Auto) 0.06 K/uL (0-0.2) RDW Standard Deviation 41.5 fL (36.4-46.3) RDW Coefficient of Variation 13.1 % (11.5-14.5) Immature Granulocyte % (Auto) 0.3 % Immature Granulocyte # (Auto) 0.03 K/uL (0.00-0.02) Activated Partial Thromboplast Time 23.9 SECONDS (21.0-31.0) Partial Thromboplastin Ratio 0.9 Venous Blood pH 7.42 (7.36-7.41) Venous Blood Partial Pressure CO2 36 mmHg (38.0-50.0) Venous Blood Partial Pressure O2 39 mmHg Venous Blood HCO3 22 mmol/L Venous Blood Oxygen Saturation 72.6 % Venous Blood Base Excess -1.6 mEq/L Anion Gap 8.0 mmol/L (3-11) Est Creatinine Clear Calc Drug Dose 31.6 ml/min Estimated GFR () 44.6 Estimated GFR (Non- 38.5 BUN/Creatinine Ratio 13.6 (10-20) Calcium Level 8.8 mg/dl (8.5-10.1) Total Bilirubin 0.3 mg/dl (0.2-1) Direct Bilirubin < 0.1 mg/dl (0-0.2) Aspartate Amino Transf (AST/SGOT) 28 U/L (15-37) Alanine Aminotransferase (ALT/SGPT) 32 U/L (12-78) Alkaline Phosphatase 107 U/L (45-117) Troponin I < 0.015 ng/ml (0-0.045) Total Protein 7.1 gm/dl (6.4-8.2) Albumin 3.2 gm/dl (3.4-5.0) Lipase 944 U/L (73-393) Beta-Hydroxybutyric Acid 8.47 mg/dL (0.2-2.81) Urine Color YELLOW Urine Appearance CLEAR (CLEAR) Urine pH 5.0 (4.5-7.5) Urine Specific [place] 1.030 (1.000-1.030) Urine Protein NEG (NEG) Urine Glucose (UA) 3+ (NEG) Urine Ketones TRACE (NEG) Urine Occult Blood NEG (NEG) Urine Nitrite NEG (NEG) Urine Bilirubin NEG (NEG) Urine Urobilinogen NEG (NEG) Urine Leukocyte Esterase NEG (NEG) Laboratory results reviewed by me Medications Administered Medications (Trade) Dose Ordered Sig/Rosetta Route Start Time Stop Time Status Last Admin Dose Admin Sodium Chloride 1,000 ml @ 999 mls/hr Q1H1M STAT IV 09/10/17 16:11 09/10/17 17:11 DC 09/10/17 16:11 999 MLS/HR Ondansetron HCl (Zofran Inj) 4 mg NOW STAT IV 09/10/17 16:11 09/10/17 16:16 DC 09/10/17 16:56 4 MG Famotidine (Pepcid 20mg/100 ml) 20 mg ONE STAT IV 09/10/17 16:11 09/10/17 16:16 DC 09/10/17 16:56 20 MG Acetaminophen 100 ml @ 400 mls/hr NOW STAT IV 09/10/17 17:06 09/10/17 17:20 DC 09/10/17 17:06 400 MLS/HR Sodium Chloride 1,000 ml @ 999 mls/hr Q1H1M STAT IV 09/10/17 17:41 09/10/17 18:41 DC 09/10/17 17:41 999 MLS/HR Al Hydroxide/Mg Hydroxide (Maalox Susp) 30 ml STK-MED ONCE .ROUTE 09/10/17 20:10 09/10/17 20:11 DC 09/10/17 20:13 30 ML Lidocaine HCl (Viscous Lidocaine 2% Soln) 20 ml STK-MED ONCE .ROUTE 09/10/17 20:11 09/10/17 20:12 DC 09/10/17 20:14 20 ML ECG Indication: back/shoulder pain Rate (beats per minute): 94 Rhythm: normal sinus Findings: no acute ischemic change, other (normal axis) ED Course 1610: The patient was evaluated in room C03. A complete history and physical exam was performed. 1611: Ordered Famotidine 20mg IV, Ondansetron HCl 4mg IV, Sodium Chloride 1000 ml @ 999 mls/hr IV 1706: Ordered Acetaminophen 100ml @ 400mls/hr Protocol IV 1741: Ordered Sodium Chloride 1000 ml @ 999 mls/hr IV 2000: I discussed the patient's case with Dr. Russ, [facility] Hospitalist. The patient will be evaluated for further treatment and care. 2009: Ordered Maalox Susp 30ml .ROUTE 2011: Ordered Lidocaine HCl 20ml .ROUTE Medical Decision I reviewed the patient's past medical history, medications, and the nursing notes as described above. Differential diagnosis: pancreatitis, UTI, pneumonia, bronchitis, ACS, gastroenteritis, DKA. The patient is a 77-year-old woman with a past medical history of pancreatitis and pancreatic stenting is to emergency department with worsening lumbar pain and epigastric pain with nausea with increased WBC on outpatient labs 13.6 with glucose of 486. History of present illness. The patients was 209 however downtrending from her recent admission. The patient appears uncomfortable but in no acute distress. The patient is afebrile with heart rate in the low 100s but vital signs otherwise stable. Lactate 2.1. CBC within normal limits. Lipase 900s uptrending from recent. Glucose 400s with elevated BHB to 8 but no Agap and pH wnl. The patient reassessed in while moderate marginally improved still with epigastric pain. UA negative.. Chest x-ray unremarkable. CT scan consistent with the patient's known pancreatitis otherwise no other acute findings. Given the patient does not appear to have any infectious symptoms rather appears clinically dry will defer antibiotics at this time. Case was discussed with, Dr. Paula [facility] hospitalist, who will admit the patient for further managemen for symptomatic pancreatitis. Repeat lactate and glucose pending to inform SS insulin correction. This patient hypertensive but due for her home medications. Admitting team will follow-up. Medication Reconcilliation Current Medication List: was personally reviewed by me Blood Pressure Screening Patient's blood pressure: Elevated blood pressure Monitored by Hospitalist Consults Time Called: 1956 Consulting Physician: Dr. Russ [facility] Returned Call: 1999 [facility]. The patient will be evaluated for further treatment and care. Impression Primary Impression: Pancreatitis Additional Impressions: Dehydration Hyperglycemia Scribe Attestation The scribe's documentation has been prepared under my direction and personally reviewed by me in its entirety. I confirm that the note above accurately reflects all work, treatment, procedures, and medical decision making performed by me. Departure Information Dispostion Being Evaluated By Hospitalist Referrals Colleen Jefferson D.O. (PCP) Patient Instructions My [facility] Problem Qualifiers
--- NOTE | 2017-09-10 16:37 | DIAGNOSTIC IMAGING REPORT ---
CHEST ONE VIEW PORTABLE CLINICAL HISTORY: Abdominal pain. COMPARISON STUDY: Chest radiograph August 25, 2017. FINDINGS: A right internal jugular [id number] remains in place. Mild cardiomegaly is unchanged. There is no evidence of pulmonary edema. No consolidation is identified to suggest pneumonia. No lucency is identified under the hemidiaphragms to suggest pneumoperitoneum on this study. Note is made of cholecystectomy clips. IMPRESSION: No acute cardiopulmonary findings. No change in appearance of the chest. Electronically signed by: Brijesh Jeter M.D. 09/10/2017 4:35 PM Dictated Date/Time: 09/10/2017 4:34 PM
[2017-09-10 17:03] LABS: BASO % 0.6 %; BASO ABS # 0.06 K/uL (0-0.2); COMPLETE YES; EOS % 5.8 %; HEMATOCRIT 37.6 % (37-47); IG% 0.3 %; LYMPH % 30.8 %; LYMPH ABS # 3.24 K/uL (1.2-3.4); MEAN CELL VOLUME 86.2 fL (80-100); MEAN CORPUSCULAR HEMOGLOBIN 31.4 pg (25-34); MEAN CORPUSCULAR HGB CONC 36.4 g/dl (32-36); MEAN PLATELET VOLUME 9.5 fL (7.4-10.4); MONO % 7.2 %; NEUT % 55.3 %; PLATELET COUNT 198 K/uL (130-400); RED BLOOD COUNT 4.36 M/uL (4.2-5.4); WHITE BLOOD COUNT 10.53 K/uL (4.8-10.8)
[2017-09-10 17:04] LABS: VEN BLD GAS O2 SATURATION 72.6 %; VEN BLOOD GAS BASE EXCESS -1.6 mEq/L
[2017-09-10] MEDS ORDERED: ACETAMINOPHEN IV 100 ML IV STA (17:06)
[2017-09-10 17:30] LABS: ALT/SGPT 32 U/L (12-78); AST/SGOT 28 U/L (15-37); BLOOD UREA NITROGEN 18 mg/dl (7-18); BUN/CREATININE RATIO 13.6 (10-20); CALCIUM 8.8 mg/dl (8.5-10.1); CARBON DIOXIDE 22 mmol/L (21-32); CHLORIDE 103 mmol/L (98-107); CREATININE 1.33 mg/dl (0.60-1.20); GLUCOSE 439 mg/dl (70-99); POTASSIUM 4.1 mmol/L (3.5-5.1); SODIUM 134 mmol/L (136-145)
[2017-09-10 17:34] LABS: ALKALINE PHOSPHATASE 107 U/L (45-117)
[2017-09-10 17:42] LABS: BETA-HYDROXYBUTYRATE 8.47 mg/dL (0.2-2.81)
--- NOTE | 2017-09-10 18:45 | DIAGNOSTIC IMAGING REPORT ---
CT SCAN OF THE ABDOMEN AND PELVIS WITHOUT IV CONTRAST CLINICAL HISTORY: Epigastric abdominal pain. COMPARISON STUDY: Abdominal CT scans dated 08/26/2017 and 01/24/2017. TECHNIQUE: CT scan of the abdomen and pelvis is performed from the lung bases to the proximal femora. Images are reviewed in the axial, sagittal, and coronal planes. IV contrast was not administered for this examination as per the referring clinician. Note that the examination was performed in significantly suboptimal fashion without oral and IV contrast. Automated dose control exposure was utilized. CT DOSE: 649.79 mGy.cm FINDINGS: Lung bases: The heart is enlarged and without pericardial effusion. There is lipomatous hypertrophy of the interatrial septum. The coronary arteries and mitral annulus are densely calcified. A punctate calcified granuloma is seen in the left lower lobe. No airspace consolidation or pleural effusion is identified. Dependent atelectasis is noted. There is a tiny hiatal hernia. Liver: The unenhanced liver is top normal in size measuring 17 cm in length. The liver demonstrates diffusely diminished attenuation consistent with hepatic steatosis. There are several calcified hepatic granulomas. Mild nodularity of the surface contour suggests early change of cirrhosis. There is no intrahepatic biliary ductal dilatation. Gallbladder: Surgically absent noting clips in the gallbladder fossa. Spleen: Normal in size and attenuation. There are small calcified splenic granulomas. Pancreas: The pancreas is atrophic. Coarse calcifications are noted in the pancreatic head. There is mild peripancreatic stranding. No peripancreatic fluid collection is seen. Adrenal glands: Unremarkable. Kidneys: The unenhanced kidneys are atrophic and without hydronephrosis. There are no renal calculi identified. There is no evidence of contour deforming renal mass lesion. A 9 mm fat attenuation lesion is seen in the upper pole of the left kidney consistent with a tiny angiomyolipoma. Abdominal vasculature: The abdominal aorta is normal in course and caliber noting moderate to advanced atherosclerotic calcification. Bowel: The small bowel and colon are normal in course and caliber. There is mild colonic diverticulosis without CT evidence of acute diverticulitis. The appendix is well-visualized and normal. Peritoneum: There is no intraperitoneal free air or abdominal ascites. There is a small fat-containing umbilical hernia. Lymphadenopathy: None. Pelvic viscera: The bladder, uterus, and adnexa are normal as visualized. Numerous calcified phleboliths are noted in the pelvis. Skeletal structures: The skeletal structures are osteopenic. No lytic or blastic lesions are seen. A hemangioma is noted in the body of L4. IMPRESSION: 1. Suboptimal examination without oral and IV contrast. 2. Findings are consistent with mild acute pancreatitis. This is similar appearance to the 08/26/2017 examination. Correlation with serum amylase/lipase levels is recommended. 3. Findings are consistent with hepatic steatosis. Mild nodularity of the hepatic surface contour suggests early change of cirrhosis. 4. Mild colonic diverticulosis without CT evidence of acute diverticulitis. 5. Additional findings as above. Electronically signed by: Ramez Blanchard M.D. 09/10/2017 6:44 PM Dictated Date/Time: 09/10/2017 6:38 PM
[2017-09-10] MEDS ORDERED: GI COCKTAIL PO STA (19:06)
[2017-09-10 19:11] LABS: URINE APPEARANCE CLEAR (CLEAR); URINE BILIRUBIN NEG (NEG); URINE COLOR YELLOW; URINE NITRITE NEG (NEG); UROBILINOGEN NEG (NEG); ZZUR CULT IF INDIC CLEAN CATCH NO
[2017-09-10 19:16] LABS: MANUAL MICROSCOPIC REQUIRED? NO; REVIEW REQ? NO
[2017-09-10] MEDS ORDERED: ALUMINUM/MAGNESIUM SUSP 30 ML UDC ONE (20:10)
[2017-09-10] MEDS ORDERED: LIDOCAINE HCL 2% VISC SOLN 20 ML UDC ONE (20:11)
[2017-09-10 20:36] VITALS: BMI 31.4
[2017-09-10] MEDS ORDERED: INSULIN GLARGINE SOLOSTAR 100 UNITS/ML 3 ML PEN SC STA (20:57)
[2017-09-10 21:13] LABS: PARTIAL THROMBOPLASTIN RATIO 0.9
[2017-09-10] MEDS ORDERED: INSULIN ASPART 100 UNITS/ML 3 ML PEN SC ONE (21:40)
[2017-09-10] MEDS ORDERED: RANITIDINE HCL 150 MG TAB PO ONE (21:40)
[2017-09-10] MEDS ORDERED: GABAPENTIN 400 MG CAP PO ONE (21:40)
[2017-09-10] MEDS ORDERED: BUDESONIDE 0.5 MG/2 ML VIAL (PULMICORT) INH PRN (21:45)
[2017-09-10] MEDS ORDERED: LORAZEPAM 0.5 MG TAB PO PRN (21:45)
[2017-09-10] MEDS ORDERED: GLUCOSE 10 TABS/TUBE PO PRN (21:45)
[2017-09-10] MEDS ORDERED: GLUCAGON FOR INJ 1 MG VIAL SQ PRN (21:45)
[2017-09-10] MEDS ORDERED: ACETAMINOPHEN 325 MG TAB PO PRN (21:45)
[2017-09-10] MEDS ORDERED: DOCUSATE SODIUM 100 MG CAP PO PRN (21:45)
[2017-09-10] MEDS ORDERED: GLUCOSE 40% GEL 15 GM TUBE PO PRN (21:45)
[2017-09-10 21:50] VITALS: BP 188/97; PULSE 81; TEMP 36.9; O2SAT 97
[2017-09-10] MEDS: HYDROmorphone INJ 0.5 MG/0.5 ML SYR IV PRN (22:34)
[2017-09-10] MEDS: LACTATED RINGER'S 1000ML 1,000 ML IV SCH (22:34)
[2017-09-10] MEDS: METOPROLOL TARTRATE 50 MG TAB PO SCH (23:05)
[2017-09-10] MEDS: HEPARIN SOD 5000 UNIT/0.5 ML CARP SQ SCH (23:07)
[2017-09-11 00:03] VITALS: BP 172/81; PULSE 70; TEMP 37; O2SAT 95
--- NOTE | 2017-09-11 00:17 | HISTORY & PHYSICAL EXAMINATION ---
DATE OF ADMISSION: 09/10/2017 CHIEF COMPLAINT: Abdominal pain. HISTORY OF PRESENT ILLNESS: History obtained from patient and records. Medical history is significant for recurrent pancreatitis, hypertension, hyperlipidemia, DM2 insulin requiring, mood disorder, CVA, history of pancreatic divisum, IPMN as per records. past tobacco abuse. Recent confinement last week for recurrent pancreatitis. Seen by GI. Plan for outpatient ERCP on 09/18/2017. Patient's home aspirin and Plavix had been on hold for contemplated procedure. Few days history of achy burning back pain going to the front with nausea similar to pancreatitis episode in the past. No diarrhea. No fever, no chills. Denies fatty food intake, alcohol intake. Seen by PCP yesterday. Outpatient lipase 200s. Patient sent by PCP to the Emergency Room due to persistent symptoms. MEDICAL HISTORY: As above with SURGERIES: She has had ankle surgery, tubal ligation, cataract surgery, and cholecystectomy. HOME MEDICATIONS: Include Norvasc, Pulmicort, Plavix and ASA (currently on hold for contemplated ERCP), Colace, Lexapro, Neurontin, DuoNebs, NovoLog, Ativan, Remeron, mag oxide, Lopressor, Prilosec, Creon, Requip, Zantac, atorvastatin. ALLERGIES: ALLERGIC TO LATEX, CODEINE, BENADRYL, HYDROXYZINE, MORPHINE, PREDNISONE, TETANUS TOXOID, BACTRIM, ALPRAZOLAM, LORATADINE, METFORMIN, SIMVASTATIN, DYE. FAMILY HISTORY: Hypertension and heart disease. PERSONAL AND SOCIAL HISTORY: Past tobacco abuse, no EtOH intake. 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 REVIEW OF SYSTEMS: As per HPI. All other ROS negative. PHYSICAL EXAMINATION: VITAL SIGNS: Blood pressure was noted to be 170/90, pulse rate 83, RR 18, T 37, sats 97% on room air. SKIN: Normal color, warm to touch. HEENT: [place] palpebral conjunctivae. mild Ptosis left chronic, dry buccal mucosa. NECK: Short neck. No tenderness. LUNGS: Decreased breath sounds. No anterior chest wall tenderness. CV: Regular rate and rhythm, palpable LE pulses. ABDOMEN: Some distention, epigastric tenderness. EXTREMITIES: Minimal LE edema, no tenderness, no gross deformity. NEUROLOGIC: No gross focality, coherent. LABS: Hemoglobin 13, hematocrit 37, white blood cell count is 10, platelets 171. Sodium 134, potassium 4.1, chloride 103, CO2 of 22, creatinine 1.33. Glucose 439 Lipase was noted to be 944. Normal anion gap Hemoglobin A1c from August 2017 was 10.6. UA ketones ASSESSMENT: 1. Recurrent pancreatitis. hx pancreatic divisum as per records 2. Hypertension, elevated Secondary to pain question compliance, 3. ARF secondary to clinical dehydration secondary to illness 4. DM2, insulin requiring, suboptimal control as of recent inpatient hemoglobin A1c 5. history of cerebrovascular accident as per records 6. past tobacco abuse. PLAN: GMF analgesia, bowel rest, IV fluids Follow lipase GI consult RE recurrent pancreatitis (Patient known to Dr. Mcfadden). Monitor creatinine response to IV fluids, hold home ARB until creatinine at baseline. Basal insulin adjusted for n.p.o. status, ISS BG goal 140-180 DVT prophylaxis, Heparin subQ. Full code. MTDD
[2017-09-11] MEDS: TRAMADOL HCL 50 MG TAB PO PRN ×2 (00:19→09:53)
[2017-09-11] MEDS: HYDROmorphone INJ 0.5 MG/0.5 ML SYR IV PRN ×2 (01:49→08:10)
[2017-09-11] MEDS: LACTATED RINGER'S 1000ML 1,000 ML IV SCH ×3 (05:26→19:37)
[2017-09-11 06:00] LABS: BASO % 1.1 %; BASO ABS # 0.09 K/uL (0-0.2); COMPLETE YES; EOS % 11.1 %; HEMATOCRIT 34.1 % (37-47); IG% 0.2 %; LYMPH % 43.4 %; LYMPH ABS # 3.67 K/uL (1.2-3.4); MEAN CELL VOLUME 87.2 fL (80-100); MEAN CORPUSCULAR HEMOGLOBIN 30.7 pg (25-34); MEAN CORPUSCULAR HGB CONC 35.2 g/dl (32-36); MEAN PLATELET VOLUME 9.1 fL (7.4-10.4); MONO % 7.6 %; NEUT % 36.6 %; PLATELET COUNT 185 K/uL (130-400); RED BLOOD COUNT 3.91 M/uL (4.2-5.4); WHITE BLOOD COUNT 8.45 K/uL (4.8-10.8)
[2017-09-11] MEDS: HEPARIN SOD 5000 UNIT/0.5 ML CARP SQ SCH ×3 (06:00→22:09)
[2017-09-11 06:37] LABS: BUN/CREATININE RATIO 12.9 (10-20); POTASSIUM 3.9 mmol/L (3.5-5.1)
[2017-09-11 07:16] VITALS: BP 188/92; PULSE 69; TEMP 36.7; O2SAT 96
[2017-09-11] MEDS: RANITIDINE HCL 150 MG TAB PO SCH ×2 (08:12→22:03)
[2017-09-11] MEDS: ESCITALOPRAM OXALATE 10 MG TAB PO SCH (08:12)
[2017-09-11] MEDS: METOPROLOL TARTRATE 50 MG TAB PO SCH ×2 (08:12→22:04)
[2017-09-11] MEDS: AMLODIPINE BESYLATE 5 MG TAB PO SCH (08:12)
[2017-09-11] MEDS: ASPIRIN 81 MG ECTAB PO SCH (08:12)
[2017-09-11] MEDS: PANTOprazole SOD 40 MG TAB PO SCH (08:12)
[2017-09-11] MEDS: GABAPENTIN 400 MG CAP PO SCH ×2 (08:12→22:04)
--- NOTE | 2017-09-11 08:13 | Gastrointestinal Consultation ---
Gastrointestinal Consultation Date of Consultation: Sep 11, 2017 Attending Physician: [place] Consulting Physician: Alisia Reason for Consultation: pancreatitis History of Present Illness Patient is a 77 year old female hx of pancreatic head cyst with recurrent pancreatitis who presented to the ED with abdominal pain and nausea. Of note she was admitted for similar symptoms 08/27/17 and was arranged for outpatient ERCP 09/18/17 - she has a history of pancreas head cyst, last CT abd/pelvis w/o contrast measured it to be 8mm, likely IPMN; pancreas divisum. She had underwent multiple EUS, ERCP for pancreas duct stent placements and sphincterectomy, last procedure done in 07/2015. [place] Key[place] [facility] [place] of panc head cysts but at that time surgery was deferred given her hx of TIAs. Pt was seen and evaluated this AM, chart reviewed. After discharge was feeling well for about 1 week, began to developed abdominal pain and nausea over the past two days. Has not had any vomiting until today. Emesis is bilious. No hematemsis coffee ground emesis. She is frustrated, requesting to arrange ERCP sooner. No fever, chills, CP, SOB Past Medical/Surgical History Medical Problems: (1) Acute bronchitis Status: Acute (2) Asthma exacerbation Status: Acute (3) Back pain Status: Acute (4) COPD exacerbation Status: Acute (5) Cough Status: Acute (6) Dehydration Status: Acute (7) Epigastric abdominal pain Status: Acute (8) Headache Status: Acute (9) HTN (hypertension) Status: Acute (10) Hyperglycemia Status: Acute (11) Hyperglycemia Status: Acute (12) Influenza B Status: Acute (13) Low back pain Status: Acute (14) Pancreatitis Status: Acute (15) Pancreatitis Status: Acute (16) Right thigh pain Status: Acute (17) Signs and symptoms of severe respiratory distress Status: Acute (18) SOB (shortness of breath) Status: Acute (19) Stroke Status: Acute (20) Swelling of right upper extremity Status: Acute (21) Upper abdominal pain Status: Acute (22) UTI (urinary tract infection) Status: Acute (23) Weakness Status: Acute Past Medical History: HTN, anxiety, CKD-2, COPD, chronic pancreatitis, CVA, depression, T2DM, fatty liver, gastroparesis, insomnia Past Surgical History: EGD, Colonoscopy, EUS, ERCP, tubal ligation, cataract surgery, cholecystectomy, fixation of left ankle fracture Family History Diabetes mellitus GRANDMOTHER MOTHER FH: Parkinson's disease Hypertension Stroke GRANDFATHER Social History Smoking Status: Former Smoker Alcohol Use: none Drug Use: none Marital Status: Housing Status: lives alone Occupation Status: retired Allergies Coded Allergies: Iodinated Diagnostic Agents (Verified Allergy, Severe, RASH TO IVP DYE, NAUSEA, FAINTING, COUGHING, GAGGING, HEADACH, 09/10/17) Sulfa Antibiotics (Verified Allergy, Severe, HIVES, FACIAL AND ARM SWELLING, 09/10/17) Cerivastatin (Verified Allergy, Intermediate, HIVES, 09/10/17) Codeine (Verified Allergy, Intermediate, "PRICKLY RASH", 09/10/17) Hydroxyzine (Verified Allergy, Intermediate, N/V, 09/10/17) Latex1 -Allergic Contact Dermititis (Verified Allergy, Intermediate, DERMATITIS-PT TOLERATED A LATEX CATHETER 03/26/08, 09/10/17) Diphenhydramine (Verified Allergy, Mild, RASH; SLEEPINESS WITH "PHARBEDRYL ", 09/10/17) Loratadine (Verified Allergy, Mild, HIVES, 09/10/17) Sulfamethoxazole w/Trimethoprim (Verified Allergy, Mild, RASH, 09/10/17) Prednisone (Unverified Allergy, Unknown, unknown, 09/10/17) Tetanus Toxoid (Verified Adverse Reaction, Intermediate, SWELLING AT INJECTION SITE, 09/10/17) Alprazolam (Verified Adverse Reaction, Unknown, "SLEEPY STUPER", 09/10/17) Metformin (Verified Adverse Reaction, Unknown, DIARRHEA, 09/10/17) Morphine (Verified Adverse Reaction, Unknown, VOMITING, 09/10/17) Simvastatin (Verified Adverse Reaction, Unknown, COUGH, "DISCOMFORT", ) Current Medications Home Meds and Scripts Medications Dose Route/Sig Max Daily Dose Days Date Category Dose Instructions Lexapro (Escitalopram Oxalate) 10 Mg Tab 10 Mg PO QAM 09/08/17 Reported Prilosec (Omeprazole) 40 Mg Cap 40 Mg PO QAM 09/08/17 Reported Lexapro (Escitalopram Oxalate) 5 Mg Tab 5 Mg PO QAM 09/08/17 Reported Pulmicort (Budesonide (Inhalation)) 1 Mg/2 Ml Alisson 0.5 Mg INH BID PRN 08/25/17 Reported Duoneb (Ipratropium-Albuterol) 3 Ml Nebu 1 Treatment INH Q4H PRN 08/25/17 Reported Zantac (Ranitidine HCl) 150 Mg Tab 75 Mg PO BID 08/25/17 Reported Norvasc (Amlodipine Besylate) 5 Mg Tab 5 Mg PO QAM 08/25/17 Reported Plavix (Clopidogrel Bisulfate) 75 Mg Tab 75 Mg PO QAM 08/06/17 Reported Novolog (Insulin Aspart) 100 Units/Ml Inj SQ ACHS 04/03/17 Reported Ativan (Lorazepam) 0.5 Mg Tab 0.5 Mg PO Q6H PRN 01/24/17 Reported Novolin 70/30 (Insulin Human Isoph/Insulin Regular) Susp 85 Units SC BID 01/24/17 Reported Creon (Pancrelipase (Lipase-Protease-) 1 Cap Cap 6,000 Units PO QID 01/24/17 Reported Trazodone (Trazodone HCl) 50 Mg Tab 50 Mg PO HS 01/24/17 Reported Lopressor (Metoprolol Tartrate) 50 Mg Tab 50 Mg PO BID 01/24/17 Reported Mag-Ox (Magnesium Oxide) 400 Mg Tab 400 Mg PO QAM 01/24/17 Reported Cozaar (Losartan Potassium) 50 Mg Tab 100 Mg PO QAM 30 12/03/16 Rx Remeron (Mirtazapine) 30 Mg Tab 30 Mg PO HS 07/19/16 Reported Ultram (Tramadol HCl) 50 Mg Tab 50 Mg PO Q6 PRN 05/25/16 Reported Neurontin (Gabapentin) 400 Mg Cap 400 Mg PO BID 05/18/16 Reported AT BREAKFAST AND AT BEDTIME Colace (Docusate Sodium) 100 Mg Cap 100 Mg PO BID PRN 01/28/16 Reported Requip (Ropinirole Hydrochloride) 1 Mg Tab 1 Mg PO HS 30 12/18/15 Reported Atorvastatin Calcium (Atorvastatin) 10 Mg Tab 10 Mg PO QPM 09/08/15 Reported Aspirin 81 Mg Tab 81 Mg PO QAM 07/17/15 Reported Review of Systems Constitutional: No fever, No chills Respiratory: No cough Cardiac: No chest pain Abdomen: + pain, + nausea, + vomiting, No diarrhea, No constipation, No GI bleeding Physical Exam Date Time Temp Pulse Resp B/P (MAP) Pulse Ox O2 Delivery O2 Flow Rate FiO2 09/11/17 07:16 36.7 69 18 188/92 (124) 96 Room Air 09/11/17 00:03 37.0 70 20 172/81 (111) 95 Room Air 09/11/17 00:00 Room Air 09/10/17 21:50 36.9 81 18 188/97 (127) 97 Room Air 09/10/17 21:45 79 16 172/94 98 09/10/17 21:37 79 16 172/94 98 Room Air 09/10/17 20:36 Room Air 09/10/17 20:15 83 20 180/116 98 Room Air 09/10/17 19:04 81 211/83 97 Room Air 09/10/17 17:11 88 09/10/17 15:52 37.0 109 20 170/93 98 Room Air General Appearance: no apparent distress Eyes: PERRL ENT: hearing grossly normal Neck: supple Respiratory/Chest: lungs clear Cardiovascular: regular rate, rhythm Abdomen: soft, no organomegaly, + tenderness Neurologic/Psych: alert, normal mood/affect, oriented x 3 Skin: normal color Laboratory Results Last 24 Hours Test 09/10/17 16:50 09/10/17 18:54 09/10/17 20:19 09/10/17 22:26 White Blood Count 10.53 K/uL Red Blood Count 4.36 M/uL Hemoglobin 13.7 g/dL Hematocrit 37.6 % Mean Corpuscular Volume 86.2 fL Mean Corpuscular Hemoglobin 31.4 pg Mean Corpuscular Hemoglobin Concent 36.4 g/dl Platelet Count 198 K/uL Mean Platelet Volume 9.5 fL Neutrophils (%) (Auto) 55.3 % Lymphocytes (%) (Auto) 30.8 % Monocytes (%) (Auto) 7.2 % Eosinophils (%) (Auto) 5.8 % Basophils (%) (Auto) 0.6 % Neutrophils # (Auto) 5.83 K/uL Lymphocytes # (Auto) 3.24 K/uL Monocytes # (Auto) 0.76 K/uL Eosinophils # (Auto) 0.61 K/uL Basophils # (Auto) 0.06 K/uL RDW Standard Deviation 41.5 fL RDW Coefficient of Variation 13.1 % Immature Granulocyte % (Auto) 0.3 % Immature Granulocyte # (Auto) 0.03 K/uL Activated Partial Thromboplast Time 23.9 SECONDS Partial Thromboplastin Ratio 0.9 Venous Blood pH 7.42 Venous Blood Partial Pressure CO2 36 mmHg Venous Blood Partial Pressure O2 39 mmHg Venous Blood HCO3 22 mmol/L Venous Blood Oxygen Saturation 72.6 % Venous Blood Base Excess -1.6 mEq/L Sodium Level 134 mmol/L Potassium Level 4.1 mmol/L Chloride Level 103 mmol/L Carbon Dioxide Level 22 mmol/L Anion Gap 8.0 mmol/L Blood Urea Nitrogen 18 mg/dl Creatinine 1.33 mg/dl Est Creatinine Clear Calc Drug Dose 31.6 ml/min Estimated GFR () 44.6 Estimated GFR (Non- 38.5 BUN/Creatinine Ratio 13.6 Random Glucose 439 mg/dl Lactic Acid Level 2.1 mmol/L 1.9 mmol/L Calcium Level 8.8 mg/dl Total Bilirubin 0.3 mg/dl Direct Bilirubin < 0.1 mg/dl Aspartate Amino Transf (AST/SGOT) 28 U/L Alanine Aminotransferase (ALT/SGPT) 32 U/L Alkaline Phosphatase 107 U/L Troponin I < 0.015 ng/ml Total Protein 7.1 gm/dl Albumin 3.2 gm/dl Lipase 944 U/L Beta-Hydroxybutyric Acid 8.47 mg/dL Urine Color YELLOW Urine Appearance CLEAR Urine pH 5.0 Urine Specific [place]iner 1.030 Urine Protein NEG Urine Glucose (UA) 3+ Urine Ketones TRACE Urine Occult Blood NEG Urine Nitrite NEG Urine Bilirubin NEG Urine Urobilinogen NEG Urine Leukocyte Esterase NEG Bedside Glucose 344 mg/dl Test 09/10/17 23:07 09/11/17 05:34 09/11/17 07:42 Bedside Glucose 326 mg/dl 221 mg/dl White Blood Count 8.45 K/uL Red Blood Count 3.91 M/uL Hemoglobin 12.0 g/dL Hematocrit 34.1 % Mean Corpuscular Volume 87.2 fL Mean Corpuscular Hemoglobin 30.7 pg Mean Corpuscular Hemoglobin Concent 35.2 g/dl Platelet Count 185 K/uL Mean Platelet Volume 9.1 fL Neutrophils (%) (Auto) 36.6 % Lymphocytes (%) (Auto) 43.4 % Monocytes (%) (Auto) 7.6 % Eosinophils (%) (Auto) 11.1 % Basophils (%) (Auto) 1.1 % Neutrophils # (Auto) 3.09 K/uL Lymphocytes # (Auto) 3.67 K/uL Monocytes # (Auto) 0.64 K/uL Eosinophils # (Auto) 0.94 K/uL Basophils # (Auto) 0.09 K/uL RDW Standard Deviation 42.6 fL RDW Coefficient of Variation 13.4 % Immature Granulocyte % (Auto) 0.2 % Immature Granulocyte # (Auto) 0.02 K/uL Sodium Level 139 mmol/L Potassium Level 3.9 mmol/L Chloride Level 110 mmol/L Carbon Dioxide Level 22 mmol/L Anion Gap 7.0 mmol/L Blood Urea Nitrogen 13 mg/dl Creatinine 1.00 mg/dl Est Creatinine Clear Calc Drug Dose 42.0 ml/min Estimated GFR () 62.9 Estimated GFR (Non- 54.3 BUN/Creatinine Ratio 12.9 Random Glucose 211 mg/dl Calcium Level 8.0 mg/dl Lipase 524 U/L Impression Patient is a 77 year old female w epigastric abd pain radiating to lower back, nausea, noted to have elevated lipase w normal LFTs, abd CT consistent w/ mild aucte pancreatitis. She has hx of pancreas head cyst likely IPMN vs pseudocyst , pancreas divisum, s/p cholecytectomy, EUS/ERCP for sphincterectomy, pancreas stent placements last done in 07/2015. Is arranged for OP ERCP on 09/18 Plan - MRCP today - NPO except sips and chips - LR @ 150ml/hr x 48 hours - Antiemetics and analgesics prn for symptomatic management - Plan for EUS/ERCP 09/18 - Case will be covering over the weekend, please contact with any questions or concerns. Florence to resume care Thursday I have seen , examined and agree with the plan as outlined by Shannan Shona DIAZ as above. -exam reveals soft abd -Abdominal pain -Recurrent pancreatitis and setting of known pancreatic divisum, Dr. Mcfadden will be rounding on Thursday any interim I would suggest, conservative care with IV fluids and pain control.
[2017-09-11] MEDS: INSULIN ASPART 100 UNITS/ML 3 ML PEN SC SCH ×3 (08:25→16:30)
[2017-09-11] MEDS: INSULIN GLARGINE SOLOSTAR 100 UNITS/ML 3 ML PEN SC SCH ×2 (08:25→22:09)
[2017-09-11] MEDS ORDERED: ESCITALOPRAM OXALATE 10 MG TAB PO SCH (09:00)
[2017-09-11] MEDS: ONDANSETRON INJ 2 MG/ML 2 ML VIAL IV PRN (09:33)
[2017-09-11 11:08] VITALS: BMI 31.4
[2017-09-11 12:30] VITALS: BP 148/75
[2017-09-11 16:00] VITALS: O2SAT 96
--- NOTE | 2017-09-11 16:21 | DIAGNOSTIC IMAGING REPORT ---
MAGNETIC RESONANCE CHOLANGIOPANCREATOGRAPHY (MRCP) CLINICAL HISTORY: Pancreatitis. Abdominal pain nausea. COMPARISON STUDY: CT scan dated 09/10/2017 FINDINGS: The gallbladder is surgically absent. There is no ductal dilatation. There are no filling defects to indicate calculi. There is a 5 mm cyst within the pancreatic body, likely representing a sidebranch IPMN. The pancreatic duct is somewhat beaded a finding suggestive of chronic pancreatitis. There are several areas of pancreatic ductal narrowing.. Minimal pancreatic edema is suspected. The common bile duct measures 4 mm. IMPRESSION: 1. No evidence of common bile duct dilatation. No common bile duct calculi identified 2. Surgically absent gallbladder 3. Beaded appearance of the pancreatic duct with multifocal strictures. The findings are suggestive of chronic pancreatitis 4. 5 mm pancreatic body cyst, likely representing a sidebranch IPMN 5. Mild pancreatic edema consistent with mild acute on chronic pancreatitis Electronically signed by: Dipak Velasquez M.D. 09/11/2017 4:19 PM Dictated Date/Time: 09/11/2017 4:12 PM
[2017-09-11 17:25] VITALS: BP 151/78; PULSE 63; TEMP 36.7; O2SAT 96
--- NOTE | 2017-09-11 18:10 | Progress Note ---
Internal Med Progress Note Date of Service: Sep 11, 2017. Provider Documentation: SUBJECTIVE: OBJECTIVE: pt sitting on edge of bed , mentions abdominal pain has improved no nausea or vomiting Vital Signs-as noted below Exam: General-no sign of distress Eyes-sclera non icteric , PERRLA/EOMI ENT-NAD, normal dentition , no erythema or exudate on pharynx , Neck-no JVD , no thyromegaly, trachea midline Lungs-CTA ,no wheeze or rales Heart-regular . S1/S2 Abdomen-soft, mild epigastric tenderness, normal bowel sound Extremities-no lower ext edema, no rash or deformity Neuro-AAO x3, no focal neurological deficit Lab data as noted below. ASSESSMENT & PLAN: RECURRENT PANCREATITIS : hx of pancreatic divisum , had multiple ERCP and EUS in past scheduled for ERCP as out pt on 09/18/17 by GI Lipase level improved 900-> 500 with IV fluid and bowel rest abdominal pain has improved appreciate input form GI continue conservative approach MARIE ON CKD STAGE 3 : due to above cr improved to baseline with IVF cont to hold ACEI HTN : BP stable on Norvasc ACEI on hold due to MARIE TYPE 2 DM : Cont insulin SSI and Basal Lantus DVT PROPHYLAXIS sub q heparin FULL CODE DISPOSITION Expected to be discharged home when medically stable Vital Signs: Date Time Temp Pulse Resp B/P (MAP) Pulse Ox O2 Delivery O2 Flow Rate FiO2 09/12/17 01:45 Room Air 09/12/17 00:16 36.7 58 19 145/75 (98) 95 Room Air 09/11/17 19:35 36.6 63 20 193/83 (119) 98 Room Air 09/11/17 17:25 36.7 63 20 151/78 (102) 96 Room Air 09/11/17 16:00 96 Room Air 09/11/17 12:30 148/75 (99) 09/11/17 08:15 Room Air 09/11/17 07:16 36.7 69 18 188/92 (124) 96 Room Air Lab Results: Results Past 24 Hours Test 09/11/17 05:34 09/11/17 07:42 09/11/17 11:21 09/11/17 17:14 Range/Units White Blood Count 8.45 4.8-10.8 K/uL Red Blood Count 3.91 4.2-5.4 M/uL Hemoglobin 12.0 12.0-16.0 g/dL Hematocrit 34.1 37-47 % Mean Corpuscular Volume 87.2 80-100 fL Mean Corpuscular Hemoglobin 30.7 25-34 pg Mean Corpuscular Hemoglobin Concent 35.2 32-36 g/dl Platelet Count 185 130-400 K/uL Mean Platelet Volume 9.1 7.4-10.4 fL Neutrophils (%) (Auto) 36.6 % Lymphocytes (%) (Auto) 43.4 % Monocytes (%) (Auto) 7.6 % Eosinophils (%) (Auto) 11.1 % Basophils (%) (Auto) 1.1 % Neutrophils # (Auto) 3.09 1.4-6.5 K/uL Lymphocytes # (Auto) 3.67 1.2-3.4 K/uL Monocytes # (Auto) 0.64 0.11-0.59 K/uL Eosinophils # (Auto) 0.94 0-0.5 K/uL Basophils # (Auto) 0.09 0-0.2 K/uL RDW Standard Deviation 42.6 36.4-46.3 fL RDW Coefficient of Variation 13.4 11.5-14.5 % Immature Granulocyte % (Auto) 0.2 % Immature Granulocyte # (Auto) 0.02 0.00-0.02 K/uL Sodium Level 139 136-145 mmol/L Potassium Level 3.9 3.5-5.1 mmol/L Chloride Level 110 98-107 mmol/L Carbon Dioxide Level 22 21-32 mmol/L Anion Gap 7.0 3-11 mmol/L Blood Urea Nitrogen 13 7-18 mg/dl Creatinine 1.00 0.60-1.20 mg/dl Est Creatinine Clear Calc Drug Dose 42.0 ml/min Estimated GFR () 62.9 Estimated GFR (Non- 54.3 BUN/Creatinine Ratio 12.9 10-20 Random Glucose 211 70-99 mg/dl Calcium Level 8.0 8.5-10.1 mg/dl Lipase 524 73-393 U/L Bedside Glucose 221 241 154 70-90 mg/dl Test 09/11/17 22:07 09/12/17 00:03 09/12/17 04:44 Range/Units Bedside Glucose 145 140 70-90 mg/dl
[2017-09-11] MEDS ORDERED: NURSING VERBAL MED ORDER ONE (18:15)
[2017-09-11 19:35] VITALS: BP 193/83; PULSE 63; TEMP 36.6; O2SAT 98
[2017-09-11] MEDS: TRAZODONE HCL 50 MG TAB PO SCH (22:03)
[2017-09-11] MEDS: MIRTAZAPINE TAB 15 MG TAB PO SCH (22:04)
[2017-09-11] MEDS: ROPINIROLE HCL 1 MG TAB PO SCH (22:04)
[2017-09-12 00:16] VITALS: BP 145/75; PULSE 58; TEMP 36.7; O2SAT 95
[2017-09-12] MEDS: LACTATED RINGER'S 1000ML 1,000 ML IV SCH ×2 (01:47→06:10)
[2017-09-12] MEDS: INSULIN ASPART 100 UNITS/ML 3 ML PEN SC SCH ×5 (06:00→20:58)
[2017-09-12] MEDS: HEPARIN SOD 5000 UNIT/0.5 ML CARP SQ SCH ×3 (06:10→20:58)
[2017-09-12 07:09] VITALS: BP 153/77; PULSE 64; TEMP 36.9; O2SAT 93
[2017-09-12] MEDS: ASPIRIN 81 MG ECTAB PO SCH (07:42)
[2017-09-12] MEDS: ESCITALOPRAM OXALATE 10 MG TAB PO SCH (07:42)
[2017-09-12] MEDS: RANITIDINE HCL 150 MG TAB PO SCH ×2 (07:43→20:24)
[2017-09-12] MEDS: AMLODIPINE BESYLATE 5 MG TAB PO SCH (07:43)
[2017-09-12] MEDS: METOPROLOL TARTRATE 50 MG TAB PO SCH ×2 (07:43→20:24)
[2017-09-12] MEDS: PANTOprazole SOD 40 MG TAB PO SCH (07:43)
[2017-09-12] MEDS: GABAPENTIN 400 MG CAP PO SCH ×2 (07:43→20:25)
[2017-09-12] MEDS: INSULIN GLARGINE SOLOSTAR 100 UNITS/ML 3 ML PEN SC SCH ×2 (07:48→20:59)
--- NOTE | 2017-09-12 10:28 | PROGRESS NOTE ---
DATE: 09/12/2017 Gastroenterology progress note in cross coverage for [email or web address]. AGE: 77. SEX: Female. RACE: . SUBJECTIVE: I had the pleasure of seeing Angelica Kaplan today at her bedside. She was feeling much better today and asking for some liquid diet to see if she could tolerate this as she is anticipating going home in the next day or so per patient. She states that she feels much better than when she came in. She does still complain of some mild mid abdominal pain which she describes as 2/10 in intensity, nonradiating without alleviating or exacerbating factors. Her lipase level improved from 524 yesterday to today's level of 227, and she denies any jaundice, acholic stools, dark urine, pruritus, fevers, chills, nausea, vomiting, hematemesis, melena or hematochezia. She has no further complaints. REVIEW OF SYSTEMS: Negative 10 system review other than pertinent positives listed in the HPI. PHYSICAL EXAMINATION: VITAL SIGNS: Include a temp of 36.9, pulse 64, respirations 20, blood pressure 153/77, pulse ox 93% on room air. GENERAL: She is awake, cooperative, in no acute distress. CHEST: Clear to auscultation bilaterally. CARDIOVASCULAR SYSTEM: Regular rate and rhythm. ABDOMEN: Soft, mildly tender in the mid epigastric region. There are positive bowel sounds. There is no appreciable hepatosplenomegaly. EXTREMITIES: No clubbing, cyanosis, or edema. LABORATORY STUDIES: Reviewed in the HPI. MRCP from yesterday did show no evidence of CBD dilation or choledocholithiasis. She does have a pancreatic duct with multifocal strictures with findings suggestive of chronic pancreatitis. There is a probable side branch IPMN in the pancreatic body and mild pancreatic edema. IMPRESSION: This is a 77-year-old female with acute on chronic pancreatitis with improving symptoms. PLAN: I would advance her diet to clear liquids today to see if she improves. If she tolerates this at lunchtime, consideration could be given to a full liquid diet for dinner and further advancement of diet based on her tolerance of this. She will have an EUS with ERCP by Dr. Mcfadden on 09/18/2017. I would recommend continuing supportive care. Once again, thanks for allowing me to participate in the care of this patient. If you have any further questions, please do not hesitate in contacting me.
--- NOTE | 2017-09-12 10:35 | Discharge Instructions ---
Discharge Instructions Date of Service Sep 12, 2017. Admission Reason for Admission: Pancreatitis Discharge Discharge Diagnosis / Problem: RECURRENT PANCREATITIS Discharge Goals Goal(s): Decrease discomfort, Improve disease control, Diagnostic testing, Therapeutic intervention Activity Recommendations Activity Limitations: resume your previous activity . Instructions / Follow-Up Instructions / Follow-Up HOSPITAL FOLLOW UP : 09/21/2017 1:40 PM Colleen Jefferson DO [facility] GASTROENTEROLOGY FOLLOW UP FOR ERCP : 09/18/2017 9:30 AM Meche Mcfadden DO Endoscopy, [facility] Current Hospital Diet Patient's current hospital diet: LOW FAT Diet Discharge Diet Recommended Diet: Diabetes Type 2 Diet, Low Fat Diet Pending Studies Studies pending at discharge: no Laboratory Results Hemoglobin A1c Test 08/26/17 05:17 Range/Units Estimated Average Glucose 266 mg/dl Hemoglobin A1c 10.9 H 4.5-5.6 % Medical Emergencies . Who to Call and When: Medical Emergencies: If at any time you feel your situation is an emergency, please call 911 immediately. . Non-Emergent Contact Non-Emergency issues call your: Primary Care Provider . . "Provider Documentation" section prepared by Ann Marie Breen. . VTE Core Measure Inpt VTE Proph given/why not?: Rebecca Hinojosa, SCD's
[2017-09-12] MEDS ORDERED: NURSING VERBAL MED ORDER ONE ×2 (11:00→13:15)
[2017-09-12 15:23] VITALS: BP 147/66; PULSE 63; TEMP 36.7; O2SAT 95
--- NOTE | 2017-09-12 18:21 | Progress Note ---
Internal Med Progress Note Date of Service: Sep 12, 2017. Provider Documentation: SUBJECTIVE: walking in room had minimum pain on left lower quadrant feels fine no nausea or abdominal pain , tolerating solid diet well Vital Signs-as noted below Exam: General-no sign of distress Eyes-sclera non icteric , PERRLA/EOMI ENT-NAD, normal dentition , no erythema or exudate on pharynx , Neck-no JVD , no thyromegaly, trachea midline Lungs-CTA ,no wheeze or rales Heart-regular . S1/S2 Abdomen-soft, no epigastric tenderness, + tenderness on left lower quadrant ; normal bowel sound Extremities-no lower ext edema, no rash or deformity Neuro-AAO x3, no focal neurological deficit Lab data as noted below. ASSESSMENT & PLAN: RECURRENT PANCREATITIS : resolved, lipase level normalized hx of pancreatic divisum , had multiple ERCP and EUS in past scheduled for ERCP as out pt on 09/18/17 by GI Lipase level improved 900-> 500 -> 227 with IV fluid and bowel rest abdominal pain has improved , no nausea or abdominal pain diet advanced form Clears to low fat diet no nausea IVF D/clara appreciate input form GI MARIE ON CKD STAGE 3 : due to above cr improved to baseline with IVF cont to hold ACEI HTN : BP stable on Norvasc ACEI on hold due to MARIE TYPE 2 DM : Cont insulin SSI and Basal Lantus DVT PROPHYLAXIS sub q heparin FULL CODE DISPOSITION plan to discharge pt home tomorrow out pt ERCP with Dr Meche Mcfadden on 09/18/17 Vital Signs: Date Time Temp Pulse Resp B/P (MAP) Pulse Ox O2 Delivery O2 Flow Rate FiO2 09/12/17 16:00 Room Air 09/12/17 15:23 36.7 63 16 147/66 (93) 95 Room Air 09/12/17 08:00 Room Air 09/12/17 07:09 36.9 64 20 153/77 (102) 93 Room Air 09/12/17 01:45 Room Air 09/12/17 00:16 36.7 58 19 145/75 (98) 95 Room Air 09/11/17 19:35 36.6 63 20 193/83 (119) 98 Room Air Lab Results: Results Past 24 Hours Test 09/11/17 22:07 09/12/17 00:03 09/12/17 05:45 09/12/17 06:07 Range/Units Bedside Glucose 145 140 154 70-90 mg/dl Lipase 227 73-393 U/L Test 09/12/17 11:18 09/12/17 16:16 Range/Units Bedside Glucose 117 145 70-90 mg/dl
[2017-09-12] MEDS: MIRTAZAPINE TAB 15 MG TAB PO SCH (20:25)
[2017-09-12] MEDS: TRAZODONE HCL 50 MG TAB PO SCH (20:25)
[2017-09-12] MEDS: ROPINIROLE HCL 1 MG TAB PO SCH (20:25)
[2017-09-12] MEDS: ATORVASTATIN 10 MG TAB PO SCH (20:58)
[2017-09-12] MEDS: PANCREAZE (LIPASE 4,200U) CAP PO SCH (21:24)
[2017-09-12 23:59] VITALS: BP 126/49; PULSE 73; TEMP 36.9; O2SAT 94
[2017-09-13] MEDS: HEPARIN SOD 5000 UNIT/0.5 ML CARP SQ SCH ×3 (05:57→22:01)
[2017-09-13 07:42] VITALS: BP 131/72; PULSE 61; TEMP 36.4; O2SAT 95
[2017-09-13] MEDS: ESCITALOPRAM OXALATE 10 MG TAB PO SCH (08:18)
[2017-09-13] MEDS: ASPIRIN 81 MG ECTAB PO SCH (08:18)
[2017-09-13] MEDS: LOSARTAN POTASSIUM 50 MG TAB PO SCH (08:18)
[2017-09-13] MEDS: PANCREAZE (LIPASE 4,200U) CAP PO SCH ×4 (08:19→20:48)
[2017-09-13] MEDS: MAGNESIUM OXIDE 400 MG TAB PO SCH (08:19)
[2017-09-13] MEDS: METOPROLOL TARTRATE 50 MG TAB PO SCH ×2 (08:19→21:35)
[2017-09-13] MEDS: GABAPENTIN 400 MG CAP PO SCH ×2 (08:19→20:48)
[2017-09-13] MEDS: PANTOprazole SOD 40 MG TAB PO SCH (08:19)
[2017-09-13] MEDS: CLOPIDOGREL BISULFATE 75 MG TAB PO SCH (08:19)
[2017-09-13] MEDS: RANITIDINE HCL 150 MG TAB PO SCH ×2 (08:19→21:34)
[2017-09-13] MEDS: AMLODIPINE BESYLATE 5 MG TAB PO SCH (08:19)
[2017-09-13] MEDS: INSULIN ASPART 100 UNITS/ML 3 ML PEN SC SCH ×4 (08:25→21:00)
[2017-09-13] MEDS: INSULIN GLARGINE SOLOSTAR 100 UNITS/ML 3 ML PEN SC SCH (08:25)
--- NOTE | 2017-09-13 10:47 | GASTROENTEROLOGY PROGRESS NOTE ---
DATE: 09/13/2017 AGE: 77. SEX: Female. RACE: . I had the pleasure of seeing Angelica Kaplan today. She was walking in the hallway. She did complain of some abdominal distention today and some excessive gas. She states that she did not have a very good night with tolerating p.o. intake and laboratory studies this morning do reveal that her lipase level increased from 227 yesterday to 460. She states that she has not had a bowel movement today. She denies any fevers, chills, nausea, vomiting, hematemesis, melena, hematochezia, jaundice, acholic stools, dark urine, or pruritus. She denies any further complaints. REVIEW OF SYSTEMS: Negative x10 system review other than pertinent positives listed in the HPI. PHYSICAL EXAMINATION: VITAL SIGNS: Include a temp of 36.4, pulse 61, respirations 18, blood pressure 131/72, and pulse ox 95% on room air. GENERAL: She is awake, cooperative, chronic ill appearing, in mild distress from abdominal distention. CHEST: Clear to auscultation bilaterally. CARDIOVASCULAR SYSTEM: Regular rate and rhythm. ABDOMEN: Distended. There are minimal bowel sounds. EXTREMITIES: No clubbing, cyanosis, or edema. LABORATORY STUDIES: From today include a lipase level of 460. IMPRESSION: This is a 77-year-old female with acute on chronic pancreatitis with abdominal distension today. PLAN: I would recommend keeping her n.p.o. at present. I would recommend that she undergo an acute abdominal series. She is scheduled to have an EUS with ERCP by Dr. Mcfadden on September 18, though we will await above noted testing and make further recommendations. I would continue supportive care. Once again, thanks for allowing me to participate in the care of this patient. I will continue to follow her until [facility] resumes care tomorrow.
--- NOTE | 2017-09-13 11:00 | DIAGNOSTIC IMAGING REPORT ---
ABDOMEN 2 VIEWS CLINICAL HISTORY: Abdominal distention COMPARISON STUDY: 08/29/2015 , CT scan dated 09/10/2017 FINDINGS: There are surgical clips within the right upper quadrant consistent with a prior cholecystectomy. There are no abnormally dilated loops of large or small bowel. There are no transition zones indicate bowel obstruction. There is scattered stool within the colon. There are multiple pelvic basin calcifications, likely are presenting phleboliths. There is a calcification projected just inferior to the right L1 transverse process. This likely represents a pancreatic calcification. IMPRESSION: No evidence of pathologic bowel dilatation. Electronically signed by: Dipak Velasquez M.D. 09/13/2017 10:59 AM Dictated Date/Time: 09/13/2017 10:57 AM
[2017-09-13 14:19] VITALS: BP 131/71; PULSE 69; TEMP 36.8; O2SAT 96
--- NOTE | 2017-09-13 18:36 | Progress Note ---
Internal Med Progress Note Date of Service: Sep 13, 2017. Provider Documentation: SUBJECTIVE: having more abdominal pain today Lipase level elevated Vital Signs-as noted below Exam: General-no sign of distress Eyes-sclera non icteric , PERRLA/EOMI ENT-NAD, normal dentition , no erythema or exudate on pharynx , Neck-no JVD , no thyromegaly, trachea midline Lungs-CTA ,no wheeze or rales Heart-regular . S1/S2 Abdomen-soft, + tenderness on left lower quadrant ; normal bowel sound Extremities-no lower ext edema, no rash or deformity Neuro-AAO x3, no focal neurological deficit Lab data as noted below. ASSESSMENT & PLAN: RECURRENT PANCREATITIS : hx of pancreatic divisum , had multiple ERCP and EUS in past scheduled for ERCP as out pt on 09/18/17 by GI Lipase level 900-> 500 -> 227 this AM Lipase level elevated > 400 with abdominal pain and nausea appreciate input form GI cont on clears ordered for IVF repeat lipase level in AM MARIE ON CKD STAGE 3 : due to above cr improved to baseline with IVF cont to hold ACEI HTN : BP stable on Norvasc ACEI on hold due to MARIE TYPE 2 DM : Cont insulin SSI and Basal Lantus DVT PROPHYLAXIS sub q heparin FULL CODE DISPOSITION discharge home when medically stable out pt ERCP with Dr Meche Mcfadden on 09/18/17 Vital Signs: Date Time Temp Pulse Resp B/P (MAP) Pulse Ox O2 Delivery O2 Flow Rate FiO2 09/13/17 16:00 Room Air 09/13/17 14:19 36.8 69 18 131/71 (91) 96 09/13/17 08:00 Room Air 09/13/17 07:42 36.4 61 18 131/72 (91) 95 Room Air 09/13/17 00:13 Room Air 09/12/17 23:59 36.9 73 18 126/49 (74) 94 Room Air Lab Results: Results Past 24 Hours Test 09/12/17 20:03 09/13/17 05:24 09/13/17 07:10 09/13/17 11:21 Range/Units Bedside Glucose 314 155 256 70-90 mg/dl Lipase 460 73-393 U/L Test 09/13/17 16:29 Range/Units Bedside Glucose 200 70-90 mg/dl
[2017-09-13] MEDS: SODIUM CHLORIDE 0.9% 1000ML 1,000 ML IV SCH (20:48)
[2017-09-13] MEDS: TRAZODONE HCL 50 MG TAB PO SCH (21:30)
[2017-09-13] MEDS: MIRTAZAPINE TAB 15 MG TAB PO SCH (21:31)
[2017-09-13] MEDS: ROPINIROLE HCL 1 MG TAB PO SCH (21:31)
[2017-09-13] MEDS: ATORVASTATIN 10 MG TAB PO SCH (21:32)
[2017-09-13] MEDS ORDERED: INSULIN GLARGINE SOLOSTAR 100 UNITS/ML 3 ML PEN SC ONE (21:48)
[2017-09-14] VITALS: BP 168/75; PULSE 65; TEMP 36.9; O2SAT 95
[2017-09-14] MEDS: SODIUM CHLORIDE 0.9% 1000ML 1,000 ML IV SCH ×3 (03:25→18:45)
[2017-09-14] MEDS: HEPARIN SOD 5000 UNIT/0.5 ML CARP SQ SCH ×3 (05:49→22:02)
[2017-09-14] MEDS: LOSARTAN POTASSIUM 50 MG TAB PO SCH (08:01)
[2017-09-14] MEDS: PANCREAZE (LIPASE 4,200U) CAP PO SCH ×4 (08:02→21:00)
[2017-09-14] MEDS: GABAPENTIN 400 MG CAP PO SCH ×2 (08:02→21:00)
[2017-09-14] MEDS: ESCITALOPRAM OXALATE 10 MG TAB PO SCH (08:02)
[2017-09-14] MEDS: AMLODIPINE BESYLATE 5 MG TAB PO SCH (08:02)
[2017-09-14] MEDS: METOPROLOL TARTRATE 50 MG TAB PO SCH ×2 (08:02→21:00)
[2017-09-14] MEDS: PANTOprazole SOD 40 MG TAB PO SCH (08:02)
[2017-09-14] MEDS: RANITIDINE HCL 150 MG TAB PO SCH ×2 (08:02→21:01)
[2017-09-14] MEDS: ASPIRIN 81 MG ECTAB PO SCH (08:02)
[2017-09-14] MEDS: CLOPIDOGREL BISULFATE 75 MG TAB PO SCH (08:02)
[2017-09-14] MEDS: TRAMADOL HCL 50 MG TAB PO PRN ×2 (08:02→15:44)
[2017-09-14] MEDS: MAGNESIUM OXIDE 400 MG TAB PO SCH (08:02)
[2017-09-14] MEDS: INSULIN ASPART 100 UNITS/ML 3 ML PEN SC SCH ×4 (08:06→20:58)
[2017-09-14] MEDS: INSULIN GLARGINE SOLOSTAR 100 UNITS/ML 3 ML PEN SC SCH ×2 (08:07→22:02)
[2017-09-14 08:08] VITALS: BP 168/68; PULSE 63; TEMP 36.8; O2SAT 97
--- NOTE | 2017-09-14 09:35 | Gastroenterology Progress Note ---
Progress Note Date of Service: Sep 14, 2017 Subjective Pt evaluation today including: conversation w/ patient, physical exam, chart review, lab review Pt seen and evaluated chart reviewed. Complained of abdominal bloating and discomfort yesterday, KUB without ileus/SBO. Reports excess gas and bloating feeling still. Mild nausea and some epigastric pain. No fever, chills, CP, SOB. Is anxious to get EUS/ERCP done. KUB: There are surgical clips within the right upper quadrant consistent with a prior cholecystectomy. There are no abnormally dilated loops of large or small bowel. There are no transition zones indicate bowel obstruction. There is scattered stool within the colon. MRCP: No evidence of common bile duct dilatation. No common bile duct calculi identified Surgically absent gallbladder Beaded appearance of the pancreatic duct with multifocal strictures. The findings are suggestive of chronic pancreatitis 5 mm pancreatic body cyst, likely representing a sidebranch IPMN Mild pancreatic edema consistent with mild acute on chronic pancreatitis CT ABD/Pelvis: Suboptimal examination without oral and IV contrast. Findings are consistent with mild acute pancreatitis. This is similar appearance to the 08/26/2017 examination. Correlation with serum amylase/lipase levels is recommended. Findings are consistent with hepatic steatosis. Mild nodularity of the hepatic surface contour suggests early change of cirrhosis. Mild colonic diverticulosis without CT evidence of acute diverticulitis. Additional findings as above. Review of Systems Constitutional: No fever, No chills Respiratory: No cough, No shortness of breath Cardiac: No chest pain Abdomen: + pain, + nausea, + constipation, No vomiting, No diarrhea, No GI bleeding Medications Current Inpatient Medications Medications (Trade) Dose Ordered Sig/Rosetta Route Start Time Stop Time Status Last Admin Dose Admin Metoprolol Tartrate (Lopressor Tab) 50 mg BID PO 09/10/17 21:00 10/10/17 20:59 09/14/17 08:02 50 MG Heparin Sodium (Porcine) (Heparin Sq 5000 Unit/0.5ml) 5,000 unit Q8H SQ 09/10/17 22:00 10/10/17 21:59 09/14/17 05:49 5,000 UNIT Acetaminophen (Tylenol Tab) 650 mg Q4H PRN PO 09/10/17 21:45 10/10/17 21:44 Glucose (Glucose 40% Gel) 15-30 GRAMS 15 GRAMS... UD PRN PO 09/10/17 21:45 10/10/17 21:44 Glucose (Glucose Chew Tab) 4-8 Tablets 4 Tabl... UD PRN PO 09/10/17 21:45 10/10/17 21:44 Dextrose (Dextrose 50% 50ML Syringe) 25-50ML OF 50% DW IV FOR... UD PRN IV 09/10/17 21:45 10/10/17 21:44 Glucagon (Glucagon Inj) 1 mg UD PRN SQ 09/10/17 21:45 10/10/17 21:44 Hydromorphone HCl (Dilaudid Inj) 0.5 mg Q3H PRN IV 09/10/17 21:45 09/24/17 21:44 09/11/17 08:10 0.5 MG Ondansetron HCl (Zofran Inj) 4 mg Q6H PRN IV 09/10/17 21:45 10/10/17 21:44 09/11/17 09:33 4 MG Amlodipine Besylate (Norvasc Tab) 5 mg QAM PO 09/11/17 09:00 10/11/17 08:59 09/14/17 08:02 5 MG Aspirin (Ecotrin Tab) 81 mg QAM PO 09/11/17 09:00 10/11/17 08:59 09/14/17 08:02 81 MG Docusate Sodium (coLACE CAP) 100 mg BID PRN PO 09/10/17 21:45 10/10/17 21:44 Escitalopram Oxalate (Lexapro Tab) 15 mg QAM PO 09/11/17 09:00 10/11/17 08:59 09/14/17 08:02 15 MG Gabapentin (Neurontin Cap) 400 mg BID PO 09/11/17 09:00 10/11/17 08:59 09/14/17 08:02 400 MG Lorazepam (Ativan Tab) 0.5 mg Q6H PRN PO 09/10/17 21:45 10/10/17 21:44 Mirtazapine (Remeron Tab) 30 mg HS PO 09/11/17 21:00 10/11/17 20:59 09/13/17 21:31 30 MG Ranitidine HCl (zANTac TAB) 75 mg BID PO 09/11/17 09:00 10/11/17 08:59 09/14/17 08:02 75 MG Ropinirole HCl (Requip Tab) 1 mg HS PO 09/11/17 21:00 10/11/17 20:59 09/13/17 21:31 1 MG Tramadol HCl (Ultram Tab) 50 mg Q4H PRN PO 09/10/17 21:45 10/10/17 21:44 09/14/17 08:02 50 MG Trazodone HCl (Desyrel Tab) 50 mg HS PO 09/11/17 21:00 10/11/17 20:59 09/13/17 21:30 50 MG Budesonide (Pulmicort Respules 0.5MG/ 2ML Neb Soln) 0.5 mg BID PRN INH 09/10/17 21:45 10/10/17 21:44 Pantoprazole Sodium (Protonix Tab) 40 mg QAM PO 09/11/17 09:00 10/11/17 08:59 09/14/17 08:02 40 MG Heparin Sodium (Porcine) (Heparin 100 Unit/ml 5ml Flush) 5 ml PRN PRN IV 09/10/17 23:45 10/10/17 23:44 09/13/17 05:21 5 ML Insulin Aspart (novoLOG ASPART) SLIDING SCALE If C... ACHS SC 09/12/17 11:00 10/12/17 10:59 09/14/17 08:06 3 UNITS Atorvastatin Calcium (Lipitor Tab) 10 mg QPM PO 09/12/17 21:00 10/12/17 20:59 09/13/17 21:32 10 MG Clopidogrel Bisulfate (plAVix TAB) 75 mg QAM PO 09/13/17 09:00 10/13/17 08:59 09/14/17 08:02 75 MG Albuterol/ Ipratropium (Duoneb) 3 ml Q4H PRN INH 09/12/17 19:00 10/12/17 18:59 Losartan Potassium (coZAAR TAB) 100 mg QAM PO 09/13/17 09:00 10/13/17 08:59 09/14/17 08:01 100 MG Magnesium Oxide (Mag-Ox Tab) 400 mg QAM PO 09/13/17 09:00 10/13/17 08:59 09/14/17 08:02 400 MG Amylase/Lipase/ Protease (Pancreaze (Lipase 4,200U) Cap) 1 cap QID PO 09/12/17 21:00 10/12/17 20:59 09/14/17 08:02 1 CAP Sodium Chloride 1,000 ml @ 125 mls/hr Q8H IV 09/13/17 18:45 10/13/17 18:44 09/14/17 03:25 125 MLS/HR Insulin Glargine (Lantus Solostar Pen) 25 units BID SC 09/14/17 09:00 10/14/17 08:59 09/14/17 08:07 25 UNITS Objective Vital Signs Date Time Temp Pulse Resp B/P (MAP) Pulse Ox O2 Delivery O2 Flow Rate FiO2 09/14/17 08:08 36.8 63 17 168/68 (101) 97 09/14/17 08:00 Room Air 09/14/17 00:20 Room Air 09/14/17 00:00 36.9 65 16 168/75 (106) 95 Room Air 09/13/17 16:00 Room Air 09/13/17 14:19 36.8 69 18 131/71 (91) 96 Physical Exam General Appearance: no apparent distress Eyes: PERRL ENT: hearing grossly normal Neck: supple Respiratory/Chest: lungs clear Cardiovascular: regular rate, rhythm, no edema Abdomen: normal bowel sounds, non tender, soft, no organomegaly Neurologic/Psych: alert, normal mood/affect, oriented x 3 Skin: normal color Laboratory Results Last 24 Hours Test 09/13/17 11:21 09/13/17 16:29 09/13/17 21:02 09/14/17 07:06 Bedside Glucose 256 mg/dl 200 mg/dl 148 mg/dl 99 mg/dl Assessment and Plan Patient is a 77 year old female w epigastric abd pain radiating to lower back, nausea, noted to have elevated lipase w normal LFTs, abd CT consistent w/ mild aucte pancreatitis. She has hx of pancreas head cyst likely IPMN vs pseudocyst , pancreas divisum, s/p cholecystectomy, EUS/ERCP for sphincterectomy, pancreas stent placements last done in 07/2015. Is arranged for OP ERCP on 09/18. - Clear liquids - IVF 150 ml/hr - Antiemetics and analgesics prn for symptomatic management - Will arrange for EUS/ERCP hopefully on Thursday - contacting scheduling and will notify when we have time and date I saw and evaluated the patient. She persists in having abdominal discomfort. She was referred for outpatient upper endoscopy and endoscopic ultrasound with possible ERCP to be done later this week. Given the patient's persistent symptoms and a recent admission we will try to expedite this evaluation as an inpatient.
[2017-09-14] MEDS ORDERED: KETOROLAC TROMETHAMINE 15 MG/ML VIAL IV. STA (10:41)
[2017-09-14 16:07] VITALS: BP 181/87; PULSE 98; TEMP 37; O2SAT 96
[2017-09-14 16:15] VITALS: BP 156/79; PULSE 57; TEMP 36.6; O2SAT 96
--- NOTE | 2017-09-14 17:48 | Progress Note ---
Internal Med Progress Note Date of Service: Sep 14, 2017. Provider Documentation: SUBJECTIVE: complains of abdominal pain and bloating episodes of nausea no vomiting Vital Signs-as noted below Exam: General-no sign of distress Eyes-sclera non icteric , PERRLA/EOMI ENT-NAD, normal dentition , no erythema or exudate on pharynx , Neck-no JVD , no thyromegaly, trachea midline Lungs-CTA ,no wheeze or rales Heart-regular . S1/S2 Abdomen-soft, + tenderness on left lower quadrant ; normal bowel sound Extremities-no lower ext edema, no rash or deformity Neuro-AAO x3, no focal neurological deficit Lab data as noted below. ASSESSMENT & PLAN: RECURRENT PANCREATITIS : hx of pancreatic divisum , had multiple ERCP and EUS in past scheduled for ERCP as out pt on 09/18/17 by GI Lipase level normalized 900-> 500 -> 227 developed abdominal pain and discomfort Lipase level found to be elevated 400-> 500 appreciate input form GI cont on bowel rest /IVF plan for ERCP on Thursday MARIE ON CKD STAGE 3 : due to above cr improved to baseline with IVF cont to hold ACEI HTN : BP stable on Norvasc ACEI on hold due to MARIE TYPE 2 DM : Cont insulin SSI and Basal Lantus DVT PROPHYLAXIS sub q heparin FULL CODE DISPOSITION discharge home when medically stable Vital Signs: Date Time Temp Pulse Resp B/P (MAP) Pulse Ox O2 Delivery O2 Flow Rate FiO2 09/14/17 16:15 36.6 57 18 156/79 (104) 96 Room Air 09/14/17 16:07 37.0 98 20 181/87 (118) 96 Nasal Cannula 09/14/17 15:51 Room Air 09/14/17 08:08 36.8 63 17 168/68 (101) 97 09/14/17 08:00 Room Air 09/14/17 00:20 Room Air 09/14/17 00:00 36.9 65 16 168/75 (106) 95 Room Air Lab Results: Results Past 24 Hours Test 09/13/17 21:02 09/14/17 07:06 09/14/17 11:06 09/14/17 11:34 Range/Units Bedside Glucose 148 99 154 70-90 mg/dl Lipase 539 73-393 U/L Test 09/14/17 16:31 Range/Units Bedside Glucose 97 70-90 mg/dl
[2017-09-14] MEDS: ATORVASTATIN 10 MG TAB PO SCH (21:00)
[2017-09-14] MEDS: ROPINIROLE HCL 1 MG TAB PO SCH (21:01)
[2017-09-14] MEDS: MIRTAZAPINE TAB 15 MG TAB PO SCH (21:02)
[2017-09-14] MEDS: TRAZODONE HCL 50 MG TAB PO SCH (21:03)
[2017-09-14] MEDS: HYDROmorphone INJ 0.5 MG/0.5 ML SYR IV PRN (21:09)
[2017-09-14 23:28] VITALS: BP 180/81; PULSE 54; TEMP 36.3; O2SAT 95
[2017-09-14] MEDS ORDERED: AMLODIPINE BESYLATE 5 MG TAB PO ONE (23:51)
[2017-09-15 01:30] VITALS: BP 138/77
[2017-09-15] MEDS: SODIUM CHLORIDE 0.9% 1000ML 1,000 ML IV SCH ×4 (01:31→20:04)
[2017-09-15] MEDS: HEPARIN SOD 5000 UNIT/0.5 ML CARP SQ SCH ×3 (05:30→21:12)
[2017-09-15 06:30] LABS: ALT/SGPT 21 U/L (12-78); AST/SGOT 14 U/L (15-37); BLOOD UREA NITROGEN 9 mg/dl (7-18); BUN/CREATININE RATIO 9.8 (10-20); CALCIUM 7.7 mg/dl (8.5-10.1); CARBON DIOXIDE 25 mmol/L (21-32); CHLORIDE 114 mmol/L (98-107); CREATININE 0.92 mg/dl (0.60-1.20); GLUCOSE 70 mg/dl (70-99); POTASSIUM 3.7 mmol/L (3.5-5.1); SODIUM 147 mmol/L (136-145)
[2017-09-15 06:32] LABS: ALKALINE PHOSPHATASE 82 U/L (45-117)
[2017-09-15 07:27] VITALS: BP 138/59; PULSE 67; TEMP 36.4; O2SAT 94
[2017-09-15] MEDS ORDERED: INDOMETHACIN 50 MG SUPP PR ONE (07:30)
[2017-09-15 08:00] VITALS: O2SAT 94
[2017-09-15] MEDS: INSULIN ASPART 100 UNITS/ML 3 ML PEN SC SCH ×4 (08:20→20:30)
[2017-09-15] MEDS: PANCREAZE (LIPASE 4,200U) CAP PO SCH ×4 (08:21→21:06)
[2017-09-15] MEDS: GABAPENTIN 400 MG CAP PO SCH ×2 (08:21→21:07)
[2017-09-15] MEDS: LOSARTAN POTASSIUM 50 MG TAB PO SCH (08:22)
[2017-09-15] MEDS: RANITIDINE HCL 150 MG TAB PO SCH ×2 (08:22→21:06)
[2017-09-15] MEDS: PANTOprazole SOD 40 MG TAB PO SCH (08:22)
[2017-09-15] MEDS: ESCITALOPRAM OXALATE 10 MG TAB PO SCH (08:23)
[2017-09-15] MEDS: MAGNESIUM OXIDE 400 MG TAB PO SCH (08:24)
[2017-09-15] MEDS: METOPROLOL TARTRATE 50 MG TAB PO SCH ×2 (08:25→21:06)
[2017-09-15] MEDS: INSULIN GLARGINE SOLOSTAR 100 UNITS/ML 3 ML PEN SC SCH ×2 (08:28→21:12)
[2017-09-15] MEDS: CLOPIDOGREL BISULFATE 75 MG TAB PO SCH (09:00)
[2017-09-15 10:31] VITALS: O2SAT 94
--- NOTE | 2017-09-15 10:53 | Progress Note ---
Progress Note Date of Service Sep 15, 2017. Progress Note Pt was fed breakfast, EUS/ERCP postponed. Will try to arrange tomorrow . Please keep patient NPO on 09/15/17 at [id number].
[2017-09-15 11:34] VITALS: BP 177/76; PULSE 56; TEMP 36.4; O2SAT 97
[2017-09-15] MEDS: ASPIRIN 81 MG ECTAB PO SCH (13:15)
[2017-09-15 14:48] VITALS: BMI 31.4
[2017-09-15 15:18] VITALS: BP 166/84; PULSE 61; TEMP 36.6; O2SAT 96
--- NOTE | 2017-09-15 15:38 | Progress Note ---
Subjective Date of Service: Sep 15, 2017. Subjective Pt evaluation today including: conversation w/ patient, physical exam, lab review, review of studies, review of inpatient medication list Saw/examined the patient in room 255 She is doing okay today; abdominal pain subsiding, still crampy and nausea is intermittent Problem List Medical Problems: (1) Acute bronchitis Status: Acute (2) Asthma exacerbation Status: Acute (3) Back pain Status: Acute (4) COPD exacerbation Status: Acute (5) Cough Status: Acute (6) Dehydration Status: Acute (7) Epigastric abdominal pain Status: Acute (8) Headache Status: Acute (9) HTN (hypertension) Status: Acute (10) Hyperglycemia Status: Acute (11) Hyperglycemia Status: Acute (12) Influenza B Status: Acute (13) Low back pain Status: Acute (14) Pancreatitis Status: Acute (15) Pancreatitis Status: Acute (16) Right thigh pain Status: Acute (17) Signs and symptoms of severe respiratory distress Status: Acute (18) SOB (shortness of breath) Status: Acute (19) Stroke Status: Acute (20) Swelling of right upper extremity Status: Acute (21) Upper abdominal pain Status: Acute (22) UTI (urinary tract infection) Status: Acute (23) Weakness Status: Acute Review of Systems Constitutional: No fever, No chills Respiratory: No shortness of breath Cardiac: No chest pain Abdomen: + pain, + nausea, No vomiting, No diarrhea, No constipation, No GI bleeding Medications Current Inpatient Medications Medications (Trade) Dose Ordered Sig/Rosetta Route Start Time Stop Time Status Last Admin Dose Admin Metoprolol Tartrate (Lopressor Tab) 50 mg BID PO 09/10/17 21:00 10/10/17 20:59 09/15/17 08:25 50 MG Heparin Sodium (Porcine) (Heparin Sq 5000 Unit/0.5ml) 5,000 unit Q8H SQ 09/10/17 22:00 10/10/17 21:59 09/15/17 05:30 5,000 UNIT Acetaminophen (Tylenol Tab) 650 mg Q4H PRN PO 09/10/17 21:45 10/10/17 21:44 Glucose (Glucose 40% Gel) 15-30 GRAMS 15 GRAMS... UD PRN PO 09/10/17 21:45 10/10/17 21:44 Glucose (Glucose Chew Tab) 4-8 Tablets 4 Tabl... UD PRN PO 09/10/17 21:45 10/10/17 21:44 Dextrose (Dextrose 50% 50ML Syringe) 25-50ML OF 50% DW IV FOR... UD PRN IV 09/10/17 21:45 10/10/17 21:44 Glucagon (Glucagon Inj) 1 mg UD PRN SQ 09/10/17 21:45 10/10/17 21:44 Hydromorphone HCl (Dilaudid Inj) 0.5 mg Q3H PRN IV 09/10/17 21:45 09/24/17 21:44 09/14/17 21:09 0.5 MG Ondansetron HCl (Zofran Inj) 4 mg Q6H PRN IV 09/10/17 21:45 10/10/17 21:44 09/11/17 09:33 4 MG Aspirin (Ecotrin Tab) 81 mg QAM PO 09/11/17 09:00 10/11/17 08:59 09/15/17 13:15 81 MG Docusate Sodium (coLACE CAP) 100 mg BID PRN PO 09/10/17 21:45 10/10/17 21:44 Escitalopram Oxalate (Lexapro Tab) 15 mg QAM PO 09/11/17 09:00 10/11/17 08:59 09/15/17 08:23 15 MG Gabapentin (Neurontin Cap) 400 mg BID PO 09/11/17 09:00 10/11/17 08:59 09/15/17 08:21 400 MG Lorazepam (Ativan Tab) 0.5 mg Q6H PRN PO 09/10/17 21:45 10/10/17 21:44 Mirtazapine (Remeron Tab) 30 mg HS PO 09/11/17 21:00 10/11/17 20:59 09/14/17 21:02 30 MG Ranitidine HCl (zANTac TAB) 75 mg BID PO 09/11/17 09:00 10/11/17 08:59 09/15/17 08:22 75 MG Ropinirole HCl (Requip Tab) 1 mg HS PO 09/11/17 21:00 10/11/17 20:59 09/14/17 21:01 1 MG Tramadol HCl (Ultram Tab) 50 mg Q4H PRN PO 09/10/17 21:45 10/10/17 21:44 09/14/17 15:44 50 MG Trazodone HCl (Desyrel Tab) 50 mg HS PO 09/11/17 21:00 10/11/17 20:59 09/14/17 21:03 50 MG Budesonide (Pulmicort Respules 0.5MG/ 2ML Neb Soln) 0.5 mg BID PRN INH 09/10/17 21:45 10/10/17 21:44 Pantoprazole Sodium (Protonix Tab) 40 mg QAM PO 09/11/17 09:00 10/11/17 08:59 09/15/17 08:22 40 MG Heparin Sodium (Porcine) (Heparin 100 Unit/ml 5ml Flush) 5 ml PRN PRN IV 09/10/17 23:45 10/10/17 23:44 09/13/17 05:21 5 ML Insulin Aspart (novoLOG ASPART) SLIDING SCALE If C... ACHS SC 09/12/17 11:00 10/12/17 10:59 09/15/17 13:13 5 UNITS Atorvastatin Calcium (Lipitor Tab) 10 mg QPM PO 09/12/17 21:00 10/12/17 20:59 09/14/17 21:00 10 MG Clopidogrel Bisulfate (plAVix TAB) 75 mg QAM PO 09/13/17 09:00 10/13/17 08:59 09/14/17 08:02 75 MG Albuterol/ Ipratropium (Duoneb) 3 ml Q4H PRN INH 09/12/17 19:00 10/12/17 18:59 Losartan Potassium (coZAAR TAB) 100 mg QAM PO 09/13/17 09:00 10/13/17 08:59 09/15/17 08:22 100 MG Magnesium Oxide (Mag-Ox Tab) 400 mg QAM PO 09/13/17 09:00 10/13/17 08:59 09/15/17 08:24 400 MG Amylase/Lipase/ Protease (Pancreaze (Lipase 4,200U) Cap) 1 cap QID PO 09/12/17 21:00 10/12/17 20:59 09/15/17 13:08 1 CAP Sodium Chloride 1,000 ml @ 150 mls/hr Q6H40M IV 09/13/17 18:45 10/13/17 18:44 09/15/17 14:37 150 MLS/HR Insulin Glargine (Lantus Solostar Pen) 25 units BID SC 09/14/17 09:00 10/14/17 08:59 09/15/17 08:28 25 UNITS Amlodipine Besylate (Norvasc Tab) 10 mg QAM PO 09/16/17 09:00 10/11/17 08:59 Objective Vital Signs Date Time Temp Pulse Resp B/P (MAP) Pulse Ox O2 Delivery O2 Flow Rate FiO2 09/15/17 11:34 36.4 56 18 177/76 (109) 97 Room Air 09/15/17 10:31 94 Room Air 09/15/17 08:00 94 Room Air 09/15/17 07:27 36.4 67 16 138/59 (85) 94 Room Air 09/15/17 01:30 138/77 (97) 09/15/17 00:00 Room Air 09/14/17 23:28 36.3 54 19 180/81 (114) 95 Room Air 09/14/17 16:15 36.6 57 18 156/79 (104) 96 Room Air 09/14/17 16:07 37.0 98 20 181/87 (118) 96 Nasal Cannula 09/14/17 15:51 Room Air Physical Exam General Appearance: no apparent distress Respiratory/Chest: chest non-tender, lungs clear, normal breath sounds, no respiratory distress, no accessory muscle use Cardiovascular: regular rate, rhythm, no edema, no murmur Abdomen: + tenderness (epigastric) Extremities: normal inspection, no pedal edema Laboratory Results Last 24 Hours Test 09/14/17 16:31 09/14/17 20:37 09/15/17 05:29 09/15/17 07:34 Bedside Glucose 97 mg/dl 185 mg/dl 57 mg/dl Sodium Level 147 mmol/L Potassium Level 3.7 mmol/L Chloride Level 114 mmol/L Carbon Dioxide Level 25 mmol/L Anion Gap 8.0 mmol/L Blood Urea Nitrogen 9 mg/dl Creatinine 0.92 mg/dl Est Creatinine Clear Calc Drug Dose 45.6 ml/min Estimated GFR () 69.6 Estimated GFR (Non- 60.1 BUN/Creatinine Ratio 9.8 Random Glucose 70 mg/dl Calcium Level 7.7 mg/dl Total Bilirubin 0.2 mg/dl Direct Bilirubin < 0.1 mg/dl Aspartate Amino Transf (AST/SGOT) 14 U/L Alanine Aminotransferase (ALT/SGPT) 21 U/L Alkaline Phosphatase 82 U/L Total Protein 5.8 gm/dl Albumin 2.7 gm/dl Lipase 290 U/L Test 09/15/17 08:00 09/15/17 11:08 Bedside Glucose 104 mg/dl 158 mg/dl Assessment and Plan This is a 77 year old female with a PMH of insulin dependent DM2, 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 and IPMN, hx of CVA as per records, HTN, HLD presents with acute pancreatitis Acute, Recurrent Pancreatitis secondary to possible pancreatic divisum and possible IPMN currently on IVFs and clears lipase initially >900 and now down to wnl plan for an EUS and ERCP in AM (09/16) NPO after midnight appreciate GI input Acute Kidney Injury superimposed on CKD stage 3 due to nausea/vomiting secondary to acute pancreatitis creatinine initial about 1.33 creat now down <1, at baseline continue IVFs + clears HTN blood pressure stable continue Norvasc continue Cozaar Insulin Dependent DM2 monitor BSGs sliding scale + Lantus monitor due to clears and NPO status DVT ppx subq heparin FULL CODE
[2017-09-15] MEDS: TRAMADOL HCL 50 MG TAB PO PRN (15:46)
--- NOTE | 2017-09-15 16:49 | Gastroenterology Progress Note ---
Progress Note Date of Service: Sep 15, 2017 Subjective Pt evaluation today including: conversation w/ patient, physical exam The patient was admitted with recurrent abdominal discomfort and a known history of chronic pancreatitis. She was to have upper endoscopy and endoscopic ultrasound and ERCP today but unfortunately have breakfast. She does continue to have persistent epigastric discomfort. Of note her last intervention was over 2 years ago which resulted in significant improvement until several weeks ago. Review of Systems Constitutional: + fatigue, No fever, No sweats Respiratory: No cough, No wheezing, No dyspnea at rest Cardiac: No see HPI, No chest pain, No palpitations Medications Current Inpatient Medications Medications (Trade) Dose Ordered Sig/Rosetta Route Start Time Stop Time Status Last Admin Dose Admin Metoprolol Tartrate (Lopressor Tab) 50 mg BID PO 09/10/17 21:00 10/10/17 20:59 09/15/17 08:25 50 MG Heparin Sodium (Porcine) (Heparin Sq 5000 Unit/0.5ml) 5,000 unit Q8H SQ 09/10/17 22:00 10/10/17 21:59 09/15/17 05:30 5,000 UNIT Acetaminophen (Tylenol Tab) 650 mg Q4H PRN PO 09/10/17 21:45 10/10/17 21:44 Glucose (Glucose 40% Gel) 15-30 GRAMS 15 GRAMS... UD PRN PO 09/10/17 21:45 10/10/17 21:44 Glucose (Glucose Chew Tab) 4-8 Tablets 4 Tabl... UD PRN PO 09/10/17 21:45 10/10/17 21:44 Dextrose (Dextrose 50% 50ML Syringe) 25-50ML OF 50% DW IV FOR... UD PRN IV 09/10/17 21:45 10/10/17 21:44 Glucagon (Glucagon Inj) 1 mg UD PRN SQ 09/10/17 21:45 10/10/17 21:44 Hydromorphone HCl (Dilaudid Inj) 0.5 mg Q3H PRN IV 09/10/17 21:45 09/24/17 21:44 09/14/17 21:09 0.5 MG Ondansetron HCl (Zofran Inj) 4 mg Q6H PRN IV 09/10/17 21:45 10/10/17 21:44 10/20/17 09:33 4 MG Aspirin (Ecotrin Tab) 81 mg QAM PO 09/11/17 09:00 10/11/17 08:59 09/15/17 13:15 81 MG Docusate Sodium (coLACE CAP) 100 mg BID PRN PO 09/10/17 21:45 10/10/17 21:44 Escitalopram Oxalate (Lexapro Tab) 15 mg QAM PO 09/11/17 09:00 10/11/17 08:59 09/15/17 08:23 15 MG Gabapentin (Neurontin Cap) 400 mg BID PO 09/11/17 09:00 10/11/17 08:59 09/15/17 08:21 400 MG Lorazepam (Ativan Tab) 0.5 mg Q6H PRN PO 09/10/17 21:45 10/10/17 21:44 Mirtazapine (Remeron Tab) 30 mg HS PO 09/11/17 21:00 10/11/17 20:59 09/14/17 21:02 30 MG Ranitidine HCl (zANTac TAB) 75 mg BID PO 09/11/17 09:00 10/11/17 08:59 09/15/17 08:22 75 MG Ropinirole HCl (Requip Tab) 1 mg HS PO 09/11/17 21:00 10/11/17 20:59 09/14/17 21:01 1 MG Tramadol HCl (Ultram Tab) 50 mg Q4H PRN PO 09/10/17 21:45 10/10/17 21:44 09/15/17 15:46 50 MG Trazodone HCl (Desyrel Tab) 50 mg HS PO 09/11/17 21:00 10/11/17 20:59 09/14/17 21:03 50 MG Budesonide (Pulmicort Respules 0.5MG/ 2ML Neb Soln) 0.5 mg BID PRN INH 09/10/17 21:45 10/10/17 21:44 Pantoprazole Sodium (Protonix Tab) 40 mg QAM PO 09/11/17 09:00 10/11/17 08:59 09/15/17 08:22 40 MG Heparin Sodium (Porcine) (Heparin 100 Unit/ml 5ml Flush) 5 ml PRN PRN IV 09/10/17 23:45 10/10/17 23:44 09/13/17 05:21 5 ML Insulin Aspart (novoLOG ASPART) SLIDING SCALE If C... ACHS SC 09/12/17 11:00 10/12/17 10:59 09/15/17 13:13 5 UNITS Atorvastatin Calcium (Lipitor Tab) 10 mg QPM PO 09/12/17 21:00 10/12/17 20:59 09/14/17 21:00 10 MG Clopidogrel Bisulfate (plAVix TAB) 75 mg QAM PO 09/13/17 09:00 10/13/17 08:59 09/14/17 08:02 75 MG Albuterol/ Ipratropium (Duoneb) 3 ml Q4H PRN INH 09/12/17 19:00 10/12/17 18:59 Losartan Potassium (coZAAR TAB) 100 mg QAM PO 09/13/17 09:00 10/13/17 08:59 09/15/17 08:22 100 MG Magnesium Oxide (Mag-Ox Tab) 400 mg QAM PO 09/13/17 09:00 10/13/17 08:59 09/15/17 08:24 400 MG Amylase/Lipase/ Protease (Pancreaze (Lipase 4,200U) Cap) 1 cap QID PO 09/12/17 21:00 10/12/17 20:59 09/15/17 13:08 1 CAP Sodium Chloride 1,000 ml @ 150 mls/hr Q6H40M IV 09/13/17 18:45 10/13/17 18:44 09/15/17 14:37 150 MLS/HR Insulin Glargine (Lantus Solostar Pen) 25 units BID SC 09/14/17 09:00 10/14/17 08:59 09/15/17 08:28 25 UNITS Amlodipine Besylate (Norvasc Tab) 10 mg QAM PO 09/16/17 09:00 10/11/17 08:59 Objective Vital Signs Date Time Temp Pulse Resp B/P (MAP) Pulse Ox O2 Delivery O2 Flow Rate FiO2 09/15/17 16:11 Room Air 09/15/17 15:18 36.6 61 18 166/84 (111) 96 Room Air 09/15/17 11:34 36.4 56 18 177/76 (109) 97 Room Air 09/15/17 10:31 94 Room Air 09/15/17 08:00 94 Room Air 09/15/17 07:27 36.4 67 16 138/59 (85) 94 Room Air 09/15/17 01:30 138/77 (97) 09/15/17 00:00 Room Air 09/14/17 23:28 36.3 54 19 180/81 (114) 95 Room Air Physical Exam General Appearance: no apparent distress ( though I told him that he is here easily 1 mg a covered) Neck: supple Respiratory/Chest: + decreased breath sounds, + wheezing Cardiovascular: + systolic murmur Abdomen: + tenderness (mild epigastric tenderness) Neurologic/Psych: alert Skin: no jaundice Laboratory Results Last 24 Hours Test 09/14/17 20:37 09/15/17 05:29 09/15/17 07:34 09/15/17 08:00 Bedside Glucose 185 mg/dl 57 mg/dl 104 mg/dl Sodium Level 147 mmol/L Potassium Level 3.7 mmol/L Chloride Level 114 mmol/L Carbon Dioxide Level 25 mmol/L Anion Gap 8.0 mmol/L Blood Urea Nitrogen 9 mg/dl Creatinine 0.92 mg/dl Est Creatinine Clear Calc Drug Dose 45.6 ml/min Estimated GFR () 69.6 Estimated GFR (Non- 60.1 BUN/Creatinine Ratio 9.8 Random Glucose 70 mg/dl Calcium Level 7.7 mg/dl Total Bilirubin 0.2 mg/dl Direct Bilirubin < 0.1 mg/dl Aspartate Amino Transf (AST/SGOT) 14 U/L Alanine Aminotransferase (ALT/SGPT) 21 U/L Alkaline Phosphatase 82 U/L Total Protein 5.8 gm/dl Albumin 2.7 gm/dl Lipase 290 U/L Test 09/15/17 11:08 09/15/17 16:15 Bedside Glucose 158 mg/dl 148 mg/dl Assessment and Plan The patient has a history of chronic pancreatitis likely related to history of pancreatic divisum. We will proceed with upper endoscopy and endoscopic ultrasound tomorrow given her history of mucinous I PMNs. We are also planning to proceed with repeat ERCP with pancreatic stent placement. We've discussed the risks and benefits of the procedure to include bleeding, infection , perforation, pain and need for follow-up studies. We have also discussed the fact that pancreatic stenting may not result in significant changes in her symptomatology.
[2017-09-15] MEDS: ROPINIROLE HCL 1 MG TAB PO SCH (21:07)
[2017-09-15] MEDS: MIRTAZAPINE TAB 15 MG TAB PO SCH (21:07)
[2017-09-15] MEDS: ATORVASTATIN 10 MG TAB PO SCH (21:08)
[2017-09-15] MEDS: TRAZODONE HCL 50 MG TAB PO SCH (21:08)
[2017-09-16] VITALS (10 sets, daily range): BP systolic 12–185; BP diastolic 65–81; PULSE 47–65; TEMP 36.3–36.7; O2SAT 93–97; Ht 152.4 cm; Wt 72.9 kg
[2017-09-16] MEDS: HEPARIN SOD 5000 UNIT/0.5 ML CARP SQ SCH ×3 (02:30→21:52)
[2017-09-16] MEDS: SODIUM CHLORIDE 0.9% 1000ML 1,000 ML IV SCH ×4 (04:45→22:33)
[2017-09-16] MEDS: HYDROmorphone INJ 0.5 MG/0.5 ML SYR IV PRN (05:26)
[2017-09-16 06:28] LABS: BLOOD UREA NITROGEN 7 mg/dl (7-18); CREATININE 0.86 mg/dl (0.60-1.20); GLUCOSE 70 mg/dl (70-99)
[2017-09-16 06:29] LABS: ALT/SGPT 32 U/L (12-78); BUN/CREATININE RATIO 8.4 (10-20); CALCIUM 8.1 mg/dl (8.5-10.1); CARBON DIOXIDE 26 mmol/L (21-32); CHLORIDE 115 mmol/L (98-107); POTASSIUM 3.6 mmol/L (3.5-5.1); SODIUM 147 mmol/L (136-145)
[2017-09-16 06:32] LABS: ALKALINE PHOSPHATASE 94 U/L (45-117); AST/SGOT 29 U/L (15-37)
[2017-09-16] MEDS: DEXTROSE 50% 50 ML SYR IV PRN ×2 (07:45→10:25)
[2017-09-16] MEDS: INSULIN ASPART 100 UNITS/ML 3 ML PEN SC SCH ×4 (08:06→20:49)
[2017-09-16] MEDS: INSULIN GLARGINE SOLOSTAR 100 UNITS/ML 3 ML PEN SC SCH ×2 (08:10→20:50)
[2017-09-16] MEDS ORDERED: NURSING VERBAL MED ORDER ONE ×2 (08:15→10:16)
[2017-09-16] MEDS: METOPROLOL TARTRATE 50 MG TAB PO SCH ×2 (08:28→20:43)
[2017-09-16] MEDS: LOSARTAN POTASSIUM 50 MG TAB PO SCH (08:28)
[2017-09-16] MEDS: AMLODIPINE BESYLATE 5 MG TAB PO SCH (08:29)
[2017-09-16] MEDS: RANITIDINE HCL 150 MG TAB PO SCH ×2 (09:00→20:39)
[2017-09-16] MEDS: GABAPENTIN 400 MG CAP PO SCH ×2 (09:00→20:41)
[2017-09-16] MEDS: MAGNESIUM OXIDE 400 MG TAB PO SCH (09:00)
[2017-09-16] MEDS: ESCITALOPRAM OXALATE 10 MG TAB PO SCH (09:00)
[2017-09-16] MEDS: PANCREAZE (LIPASE 4,200U) CAP PO SCH ×4 (09:00→20:40)
[2017-09-16] MEDS: PANTOprazole SOD 40 MG TAB PO SCH (09:00)
[2017-09-16] MEDS: ASPIRIN 81 MG ECTAB PO SCH (09:00)
[2017-09-16] MEDS ORDERED: ONDANSETRON INJ 2 MG/ML 2 ML VIAL IV PRN (09:15)
[2017-09-16] MEDS ORDERED: EpHEDrine SULFATE INJ 50 MG/ML AMP IV PRN (09:15)
[2017-09-16] MEDS ORDERED: ATROPINE SULFATE 0.1 MG/ML 5ML SYR IV PRN (09:15)
[2017-09-16] MEDS ORDERED: PROPOFOL IV EMULSION 10 MG/ML 20 ML VIAL IV ONE ×2 (10:25→11:53)
[2017-09-16] MEDS ORDERED: SUCCINYLCHOLINE CHLORIDE 20 MG/ML 10 ML VIAL IV ONE (10:26)
[2017-09-16] MEDS ORDERED: FENTANYL CITRATE INJ 50 MCG/1 ML 2 ML VIAL ONE (10:26)
[2017-09-16] MEDS ORDERED: INDOMETHACIN 50 MG SUPP PR ONE ×2 (10:27→10:30)
[2017-09-16] MEDS ORDERED: MIDAZOLAM HCL 1 MG/ML 2ML VIAL ONE (10:27)
--- NOTE | 2017-09-16 10:41 | History & Physical Bridge Note ---
H&P Re-Evaluation Bridge Note: I have examined the patient, reviewed the History & Physical and in the interval since the performance of the History & Physical I have noted the following changes of clinical significance. The patient has a history of worsening abdominal pain over the past 2 months requiring several admissions. Her imaging study does show evidence of chronic pancreatitis likely a result of her history of pancreatic divisum. In the past she has had significant improvement after pancreatic stenting. We are proceeding with upper endoscopy and endoscopic ultrasound to evaluate her history of chronic pancreatitis. Finally you're planning to do ERCP for pancreatic stent placement. We have discussed the risks to include bleeding, infection, perforation, failed cannulation and acute pancreatitis.: No changes noted.
[2017-09-16] MEDS ORDERED: NEOSTIGMINE METHYLSULFATE 5 MG/5 ML SYR ONE (11:06)
[2017-09-16] MEDS ORDERED: GLYCOPYRROLATE INJ 0.2 MG/ML VIAL ONE ×2 (11:06→11:08)
[2017-09-16] MEDS ORDERED: ROCURONIUM BROMIDE 10 MG/ML 5 ML VIAL IV ONE (11:06)
[2017-09-16] MEDS ORDERED: CIPROFLOXACIN 400MG / 200ML D5W IV ONE (11:15)
[2017-09-16] MEDS ORDERED: ONDANSETRON INJ 2 MG/ML 2 ML VIAL ONE (11:22)
--- NOTE | 2017-09-16 12:49 | DIAGNOSTIC IMAGING REPORT ---
ERCP BILIARY DUCTAL CLINICAL HISTORY: ERCP COMPARISON STUDY: 08/08/2015 FLUOROSCOPY TIME: 2 minutes 19 seconds. FINDINGS: Unremarkable retrograde opacification and cannulation of the common bile duct. Prior cholecystectomy. Retrograde opacification of the pancreatic duct with successful placement of a pancreatic stent. IMPRESSION: Successful placement of a pancreatic stent. The above report was generated using voice recognition software. It may contain grammatical, syntax or spelling errors. Electronically signed by: Sigifredo Rubio M.D. 09/16/2017 12:48 PM Dictated Date/Time: 09/16/2017 12:47 PM
--- NOTE | 2017-09-16 12:53 | [facility] Post Operative Brief Note ---
Immediate Operative Summary Operative Date Sep 16, 2017. Pre-Operative Diagnosis Chronic Pancreatitis Post-Operative Diagnosis Chronic Pancreatitis Procedure(s) Performed Endoscopic Retrograde Cholangiopancreatogram; Upper Endoscopic Ultrasonography; Esophagogastroduodenoscopy; Stent Placement Surgeon [employer] Operator Surgeon(s) Endoscopy staff Estimated Blood Loss 0cc Findings Proximal pancreatic duct stricture 12 mm Pancreatic cyst mild gastritis Specimens 1) Gastric antral biopsies Drains Pancreatic duct stent Anesthesia General Complication(s) None Disposition Recovery Room / PACU
[2017-09-16] MEDS: FENTANYL CITRATE INJ 50 MCG/1 ML 2 ML VIAL IV PRN ×4 (12:54→13:09)
[2017-09-16] MEDS ORDERED: HYDROmorphone INJ 1 MG/ML SYR IV STA (13:38)
[2017-09-16] MEDS ORDERED: HYDROmorphone INJ 1 MG/ML SYR ONE ×2 (13:39→14:36)
--- NOTE | 2017-09-16 14:24 | Anesthesiology Progress Note ---
Anesthesia Post Op Note Date & Time Sep 16, 2017 at 14:24 Vital Signs Pain Intensity: 7 Vital Signs Past 12 Hours Date Time Temp Pulse Resp B/P (MAP) Pulse Ox O2 Delivery O2 Flow Rate FiO2 09/16/17 14:20 49 16 184/85 95 Nasal Cannula 4 09/16/17 14:10 55 16 154/92 97 Nasal Cannula 4 09/16/17 14:00 45 16 169/84 93 Nasal Cannula 4 09/16/17 13:50 50 16 164/76 93 Nasal Cannula 4 09/16/17 13:40 54 16 188/85 95 Nasal Cannula 4 09/16/17 13:30 54 16 179/74 93 Nasal Cannula 4 09/16/17 13:20 36.2 56 14 171/76 94 Nasal Cannula 3 09/16/17 13:10 51 16 147/50 95 Nasal Cannula 3 09/16/17 13:00 47 16 175/95 94 Nasal Cannula 3 09/16/17 12:50 54 14 179/94 96 Mask 5 09/16/17 12:40 60 14 180/80 92 Mask 10 09/16/17 12:34 36.6 63 14 171/94 85 Nasal Cannula 2 09/16/17 08:45 94 Room Air 09/16/17 07:10 36.7 60 20 185/73 (110) 94 Notes Mental Status: alert / awake / arousable, participated in evaluation Pt Amnestic to Procedure: Yes Nausea / Vomiting: adequately controlled Pain: adequately controlled Airway Patency, RR, SpO2: stable & adequate BP & HR: stable & adequate Hydration State: stable & adequate Anesthetic Complications: no major complications apparent
--- NOTE | 2017-09-16 14:27 | DIAGNOSTIC IMAGING REPORT ---
KUB CLINICAL HISTORY: evaluation for pain pain COMPARISON STUDY: 09/13/2017 FINDINGS: Interval exchange of the patient's pancreatic stent. Stent appears to be in good position. Several surgical clips in the right upper quadrant are unchanged. A pattern is nonobstructive. No secondary signs of free air. IMPRESSION: Pancreatic duct stent showing normal position. Nonobstructive bowel pattern. No evidence for free air or obstructive change. The above report was generated using voice recognition software. It may contain grammatical, syntax or spelling errors. Electronically signed by: Sigifredo Rubio M.D. 09/16/2017 2:26 PM Dictated Date/Time: 09/16/2017 2:25 PM
[2017-09-16] MEDS ORDERED: HYDROmorphone INJ 1 MG/ML SYR IV ONE (15:00)
--- NOTE | 2017-09-16 17:36 | Progress Note ---
Subjective Date of Service: Sep 16, 2017. Subjective Pt evaluation today including: conversation w/ patient, physical exam, lab review, review of studies, review of inpatient medication list Saw/examined the patient in room 255 She just returned from endoscopy suite after having an ERCP/EUS Confused, tells me she is worried, but cannot pinpoint why Denies pain; difficult to obtain ROS due to confusion Problem List Medical Problems: (1) Acute bronchitis Status: Acute (2) Asthma exacerbation Status: Acute (3) Back pain Status: Acute (4) COPD exacerbation Status: Acute (5) Cough Status: Acute (6) Dehydration Status: Acute (7) Epigastric abdominal pain Status: Acute (8) Headache Status: Acute (9) HTN (hypertension) Status: Acute (10) Hyperglycemia Status: Acute (11) Hyperglycemia Status: Acute (12) Influenza B Status: Acute (13) Low back pain Status: Acute (14) Pancreatitis Status: Acute (15) Pancreatitis Status: Acute (16) Right thigh pain Status: Acute (17) Signs and symptoms of severe respiratory distress Status: Acute (18) SOB (shortness of breath) Status: Acute (19) Stroke Status: Acute (20) Swelling of right upper extremity Status: Acute (21) Upper abdominal pain Status: Acute (22) UTI (urinary tract infection) Status: Acute (23) Weakness Status: Acute Review of Systems Difficult to obtain due to her confusion Medications Current Inpatient Medications Medications (Trade) Dose Ordered Sig/Rosetta Route Start Time Stop Time Status Last Admin Dose Admin Metoprolol Tartrate (Lopressor Tab) 50 mg BID PO 09/10/17 21:00 10/10/17 20:59 09/16/17 08:28 50 MG Heparin Sodium (Porcine) (Heparin Sq 5000 Unit/0.5ml) 5,000 unit Q8H SQ 09/10/17 22:00 10/10/17 21:59 09/15/17 05:30 5,000 UNIT Acetaminophen (Tylenol Tab) 650 mg Q4H PRN PO 09/10/17 21:45 10/10/17 21:44 Glucose (Glucose 40% Gel) 15-30 GRAMS 15 GRAMS... UD PRN PO 09/10/17 21:45 10/10/17 21:44 Glucose (Glucose Chew Tab) 4-8 Tablets 4 Tabl... UD PRN PO 09/10/17 21:45 10/10/17 21:44 Dextrose (Dextrose 50% 50ML Syringe) 25-50ML OF 50% DW IV FOR... UD PRN IV 09/10/17 21:45 10/10/17 21:44 09/16/17 10:25 25 ML Glucagon (Glucagon Inj) 1 mg UD PRN SQ 09/10/17 21:45 10/10/17 21:44 Hydromorphone HCl (Dilaudid Inj) 0.5 mg Q3H PRN IV 09/10/17 21:45 09/24/17 21:44 09/16/17 05:26 0.5 MG Ondansetron HCl (Zofran Inj) 4 mg Q6H PRN IV 09/10/17 21:45 10/10/17 21:44 09/11/17 09:33 4 MG Aspirin (Ecotrin Tab) 81 mg QAM PO 09/11/17 09:00 10/11/17 08:59 09/15/17 13:15 81 MG Docusate Sodium (coLACE CAP) 100 mg BID PRN PO 09/10/17 21:45 10/10/17 21:44 Escitalopram Oxalate (Lexapro Tab) 15 mg QAM PO 09/11/17 09:00 10/11/17 08:59 09/15/17 08:23 15 MG Gabapentin (Neurontin Cap) 400 mg BID PO 09/11/17 09:00 10/11/17 08:59 09/15/17 21:07 400 MG Lorazepam (Ativan Tab) 0.5 mg Q6H PRN PO 09/10/17 21:45 10/10/17 21:44 Mirtazapine (Remeron Tab) 30 mg HS PO 09/11/17 21:00 10/11/17 20:59 09/15/17 21:07 30 MG Ranitidine HCl (zANTac TAB) 75 mg BID PO 09/11/17 09:00 10/11/17 08:59 09/15/17 21:06 75 MG Ropinirole HCl (Requip Tab) 1 mg HS PO 09/11/17 21:00 10/11/17 20:59 09/15/17 21:07 1 MG Tramadol HCl (Ultram Tab) 50 mg Q4H PRN PO 09/10/17 21:45 10/10/17 21:44 09/15/17 15:46 50 MG Trazodone HCl (Desyrel Tab) 50 mg HS PO 09/11/17 21:00 10/11/17 20:59 09/15/17 21:08 50 MG Budesonide (Pulmicort Respules 0.5MG/ 2ML Neb Soln) 0.5 mg BID PRN INH 09/10/17 21:45 10/10/17 21:44 Pantoprazole Sodium (Protonix Tab) 40 mg QAM PO 09/11/17 09:00 10/11/17 08:59 09/15/17 08:22 40 MG Heparin Sodium (Porcine) (Heparin 100 Unit/ml 5ml Flush) 5 ml PRN PRN IV 09/10/17 23:45 10/10/17 23:44 09/13/17 05:21 5 ML Insulin Aspart (novoLOG ASPART) SLIDING SCALE If C... ACHS SC 09/12/17 11:00 10/12/17 10:59 09/15/17 18:31 3 UNITS Atorvastatin Calcium (Lipitor Tab) 10 mg QPM PO 09/12/17 21:00 10/12/17 20:59 09/15/17 21:08 10 MG Albuterol/ Ipratropium (Duoneb) 3 ml Q4H PRN INH 09/12/17 19:00 10/12/17 18:59 Losartan Potassium (coZAAR TAB) 100 mg QAM PO 09/13/17 09:00 10/13/17 08:59 09/16/17 08:28 100 MG Magnesium Oxide (Mag-Ox Tab) 400 mg QAM PO 09/13/17 09:00 10/13/17 08:59 09/15/17 08:24 400 MG Amylase/Lipase/ Protease (Pancreaze (Lipase 4,200U) Cap) 1 cap QID PO 09/12/17 21:00 10/12/17 20:59 09/15/17 21:06 1 CAP Sodium Chloride 1,000 ml @ 150 mls/hr Q6H40M IV 09/13/17 18:45 10/13/17 18:44 09/16/17 15:40 150 MLS/HR Insulin Glargine (Lantus Solostar Pen) 25 units BID SC 09/14/17 09:00 10/14/17 08:59 09/15/17 21:12 25 UNITS Amlodipine Besylate (Norvasc Tab) 10 mg QAM PO 09/16/17 09:00 10/11/17 08:59 09/16/17 08:29 10 MG Ciprofloxacin/ Dextrose 400 mg/ Prmx 200 ml @ 100 mls/hr Q12 IV 09/16/17 21:00 09/19/17 20:59 Objective Vital Signs Date Time Temp Pulse Resp B/P (MAP) Pulse Ox O2 Delivery O2 Flow Rate FiO2 09/16/17 16:45 36.5 53 20 178/76 (110) 95 Room Air 09/16/17 15:35 Nasal Cannula 4.0 09/16/17 15:23 Nasal Cannula 4.0 09/16/17 15:15 36.3 50 16 162/77 (105) 97 Nasal Cannula 4.0 09/16/17 14:56 36.3 47 16 150/79 (102) 93 Nasal Cannula 09/16/17 14:40 52 16 157/90 97 Nasal Cannula 4 09/16/17 14:30 36.3 50 16 156/87 96 Nasal Cannula 4 09/16/17 14:20 49 16 184/85 95 Nasal Cannula 4 09/16/17 14:10 55 16 154/92 97 Nasal Cannula 4 09/16/17 14:00 45 16 169/84 93 Nasal Cannula 4 09/16/17 13:50 50 16 164/76 93 Nasal Cannula 4 09/16/17 13:40 54 16 188/85 95 Nasal Cannula 4 09/16/17 13:30 54 16 179/74 93 Nasal Cannula 4 09/16/17 13:20 36.2 56 14 171/76 94 Nasal Cannula 3 09/16/17 13:10 51 16 147/50 95 Nasal Cannula 3 09/16/17 13:00 47 16 175/95 94 Nasal Cannula 3 09/16/17 12:50 54 14 179/94 96 Mask 5 09/16/17 12:40 60 14 180/80 92 Mask 10 09/16/17 12:34 36.6 63 14 171/94 85 Nasal Cannula 2 09/16/17 08:45 94 Room Air 09/16/17 07:10 36.7 60 20 185/73 (110) 94 09/16/17 01:22 65 147/65 (92) 09/16/17 00:56 36.5 53 18 172/78 (109) 95 Room Air 09/16/17 00:00 Room Air Physical Exam General Appearance: no apparent distress Respiratory/Chest: chest non-tender, lungs clear, normal breath sounds, no respiratory distress, no accessory muscle use Cardiovascular: regular rate, rhythm, no edema, no murmur Abdomen: + tenderness Laboratory Results Last 24 Hours Test 09/15/17 20:11 09/16/17 05:20 09/16/17 07:31 09/16/17 08:03 Bedside Glucose 110 mg/dl 60 mg/dl 113 mg/dl Sodium Level 147 mmol/L Potassium Level 3.6 mmol/L Chloride Level 115 mmol/L Carbon Dioxide Level 26 mmol/L Anion Gap 6.0 mmol/L Blood Urea Nitrogen 7 mg/dl Creatinine 0.86 mg/dl Est Creatinine Clear Calc Drug Dose 48.8 ml/min Estimated GFR () 75.5 Estimated GFR (Non- 65.2 BUN/Creatinine Ratio 8.4 Random Glucose 70 mg/dl Calcium Level 8.1 mg/dl Total Bilirubin 0.3 mg/dl Direct Bilirubin < 0.1 mg/dl Aspartate Amino Transf (AST/SGOT) 29 U/L Alanine Aminotransferase (ALT/SGPT) 32 U/L Alkaline Phosphatase 94 U/L Total Protein 6.2 gm/dl Albumin 2.9 gm/dl Lipase 388 U/L Test 09/16/17 10:15 09/16/17 12:40 09/16/17 16:30 Bedside Glucose 61 mg/dl 151 mg/dl 181 mg/dl Assessment and Plan This is a 77 year old female with a PMH of insulin dependent DM2, 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 and IPMN, hx of CVA as per records, HTN, HLD presents with acute pancreatitis Acute, Recurrent Pancreatitis 09/16 s/p ERCP and pancreatic duct stent placement +confused - possibly secondary to anesthesia will monitor overnight; check labs in AM, check lipase in AM further management as per GI 09/15 secondary to possible pancreatic divisum and possible IPMN currently on IVFs and clears lipase initially >900 and now down to wnl plan for an EUS and ERCP in AM (09/16) NPO after midnight appreciate GI input Acute Kidney Injury superimposed on CKD stage 3 due to nausea/vomiting secondary to acute pancreatitis creatinine initial about 1.33 creat now down <1, at baseline continue IVFs + clears HTN blood pressure stable continue Norvasc continue Cozaar Insulin Dependent DM2 monitor BSGs sliding scale + Lantus monitor due to clears and NPO status DVT ppx subq heparin FULL CODE
[2017-09-16] MEDS: TRAMADOL HCL 50 MG TAB PO PRN (19:13)
--- NOTE | 2017-09-16 20:24 | GI REPORT ---
Procedure Date: 09/16/2017 11:07 AM Procedure: Upper EUS Indications: Dilated pancreatic duct on MRCP, Pancreatic cyst on MRI, Chronic pancreatitis Medicines: General Anesthesia Complications: No immediate complications. Estimated blood loss: Minimal. Estimated Blood Loss: Estimated blood loss was minimal. Procedure: Pre-Anesthesia Assessment: - Prior to the procedure, a History and Physical was performed, and patient medications, allergies and sensitivities were reviewed. The patient's tolerance of previous anesthesia was reviewed. - The risks and benefits of the procedure and the sedation options and risks were discussed with the patient. All questions were answered and informed consent was obtained. - Patient identification and proposed procedure were verified prior to the procedure by the physician, the nurse and the hospice clinical manager. The procedure was verified in the procedure room. - Pre-procedure physical examination revealed no contraindications to sedation. - ASA Grade Assessment: III - A patient with severe systemic disease. - After reviewing the risks and benefits, the patient was deemed in satisfactory condition to undergo the procedure. - The anesthesia plan was to use general anesthesia. - Immediately prior to administration of medications, the patient was re-assessed for adequacy to receive sedatives. - The heart rate, respiratory rate, oxygen saturations, blood pressure, adequacy of pulmonary ventilation, and response to care were monitored throughout the procedure. - The physical status of the patient was re-assessed after the procedure. After obtaining informed consent, the endoscope was passed under direct vision. Throughout the procedure, the patient's blood pressure, pulse, and oxygen saturations were monitored continuously. The Scope was introduced through the mouth, and advanced to the second part of duodenum. The upper EUS was accomplished without difficulty. The patient tolerated the procedure well. Findings: Endosonographic Finding : There was no sign of significant endosonographic abnormality in the ampulla. No masses were identified. Evidence of a previous cholecystectomy was identified endosonographically. There was no sign of significant endosonographic abnormality in the common bile duct. No stones, no biliary sludge and ducts of normal caliber were identified. No lymphadenopathy seen. There was no sign of significant endosonographic abnormality in the left adrenal gland. No adrenal gland enlargement was identified. There was abnormal echogenicity in the liver. This area was hyperechoic. Endosonographic imaging of the pancreas showed sonographic changes indicative of moderate chronic pancreatitis in the entire pancreas. The parenchyma had lobularity with honeycombing and hyperechoic foci without shadowing. The pancreatic duct had duct dilation, hyperechoic sloan, a tortuous/ectatic appearance and intraductal calculi. The pancreatic duct measured up to 5 mm in diameter in the body. A hypoechoic lesion suggestive of a cyst was identified in the pancreatic head. It is not in obvious communication with the pancreatic duct. The lesion measured 12 mm by 7 mm in maximal cross-sectional diameter. There was a single compartment without septae. The outer wall of the lesion was not seen. There was no associated mass. There was no internal debris within the fluid-filled cavity. FNA not performed as patient was still on Plavix. No obvious mass was noted in the pancreatic head. Impression: - There was no sign of significant pathology in the ampulla. - Evidence of a cholecystectomy. - There was no sign of significant pathology in the common bile duct. - Endosonographic images of the left adrenal gland were unremarkable. - There was abnormal echogenicity in the liver. This was hyperechoic. Tissue has not been obtained. However, the endosonographic appearance is suggestive of fatty infiltration. - Findings consistent with chronic pancreatitis (likely related to history of P Divisum) - 12 mm pancreatic head cyst (FNA not done today) - No specimens collected. Recommendation: - Perform an ERCP today. - Repeat the upper endoscopic ultrasound in 3 months for surveillance and cyst aspiration. Meche Mcfadden D.O. Meche Mcfadden, 09/16/2017 12:46:56 PM This report has been signed electronically. Note Initiated On: 09/16/2017 11:07 AM I attest to the content of the Intraoperative Record and orders documented therein, exceptions below
--- NOTE | 2017-09-16 20:24 | GI REPORT ---
Procedure Date: 09/16/2017 10:50 AM Procedure: Upper GI endoscopy Indications: Epigastric abdominal pain Medicines: General Anesthesia Complications: No immediate complications. Estimated blood loss: Minimal. Estimated Blood Loss: Estimated blood loss was minimal. Procedure: Pre-Anesthesia Assessment: - Prior to the procedure, a History and Physical was performed, and patient medications, allergies and sensitivities were reviewed. The patient's tolerance of previous anesthesia was reviewed. - The risks and benefits of the procedure and the sedation options and risks were discussed with the patient. All questions were answered and informed consent was obtained. - Patient identification and proposed procedure were verified prior to the procedure by the physician, the nurse and the cattle brander. The procedure was verified in the procedure room. - Pre-procedure physical examination revealed no contraindications to sedation. - ASA Grade Assessment: III - A patient with severe systemic disease. - After reviewing the risks and benefits, the patient was deemed in satisfactory condition to undergo the procedure. - The anesthesia plan was to use general anesthesia. - Immediately prior to administration of medications, the patient was re-assessed for adequacy to receive sedatives. - The heart rate, respiratory rate, oxygen saturations, blood pressure, adequacy of pulmonary ventilation, and response to care were monitored throughout the procedure. - The physical status of the patient was re-assessed after the procedure. After obtaining informed consent, the endoscope was passed under direct vision. Throughout the procedure, the patient's blood pressure, pulse, and oxygen saturations were monitored continuously. The Scope was introduced through the mouth, and advanced to the third part of duodenum. The upper GI endoscopy was accomplished without difficulty. The patient tolerated the procedure well. Findings: The examined esophagus was normal. The Z-line was regular and was found 38 cm from the incisors. Localized moderate inflammation characterized by erythema and granularity was found in the gastric antrum. Biopsies were taken with a cold forceps for histology. Estimated blood loss was minimal. The gastric fundus, gastric body and incisura were normal. The examined duodenum was normal. Impression: - Normal esophagus. - Z-line regular, 38 cm from the incisors. - Chronic gastritis. Biopsied. - Normal gastric fundus, gastric body and incisura. - Normal examined duodenum. Recommendation: - Perform an upper endoscopic ultrasound (UEUS) today. - Await pathology results. Meche Mcfadden D.O. Meche Mcfadden DO 09/16/2017 11:07:10 AM This report has been signed electronically. Note Initiated On: 09/16/2017 10:50 AM I attest to the content of the Intraoperative Record and orders documented therein, exceptions below
--- NOTE | 2017-09-16 20:24 | GI REPORT ---
Procedure Date: 09/16/2017 11:29 AM Procedure: ERCP Indications: Abdominal pain of suspected pancreatic origin, Abnormal abdominal MRI Medicines: General Anesthesia, Cipro 400 mg IV Complications: No immediate complications. Estimated blood loss: Minimal. Estimated Blood Loss: Estimated blood loss was minimal. Procedure: Pre-Anesthesia Assessment: - Prior to the procedure, a History and Physical was performed, and patient medications, allergies and sensitivities were reviewed. The patient's tolerance of previous anesthesia was reviewed. - The risks and benefits of the procedure and the sedation options and risks were discussed with the patient. All questions were answered and informed consent was obtained. - Patient identification and proposed procedure were verified prior to the procedure by the physician, the nurse and the workshop manager. The procedure was verified in the procedure room. - Pre-procedure physical examination revealed no contraindications to sedation. - ASA Grade Assessment: III - A patient with severe systemic disease. - After reviewing the risks and benefits, the patient was deemed in satisfactory condition to undergo the procedure. - The anesthesia plan was to use general anesthesia. - Immediately prior to administration of medications, the patient was re-assessed for adequacy to receive sedatives. - The heart rate, respiratory rate, oxygen saturations, blood pressure, adequacy of pulmonary ventilation, and response to care were monitored throughout the procedure. - The physical status of the patient was re-assessed after the procedure. After obtaining informed consent, the scope was passed under direct vision. Throughout the procedure, the patient's blood pressure, pulse, and oxygen saturations were monitored continuously. The scope was introduced through the mouth, and advanced to the duodenum and used to inject contrast into the bile duct and dorsal pancreatic duct. The ERCP was accomplished without difficulty. The patient tolerated the procedure well. Findings: A material combiner film of the abdomen was obtained. Surgical clips, consistent with previous cholecystectomy, were seen in the area of the right upper quadrant of the abdomen. The esophagus was successfully intubated under direct vision without detailed examination of the pharynx, larynx, and associated structures, and upper GI tract. The upper GI tract was grossly normal. A biliary sphincterotomy had been performed. The sphincterotomy appeared open. The bile duct was deeply cannulated with the short-nosed traction sphincterotome (Omni 35) and 0.025 in Acrobat guidewire. Contrast was injected. I personally interpreted the bile duct images. Contrast extended to the entire biliary tree. A cholecystectomy had been performed. To discover objects, the biliary tree was swept with a 8.5 to 12 mm balloon starting at the bifurcation. A small amount of sludge was swept from the duct. Our attention then was turned to the minor papilla (know history of P Divisum) A minor papilla sphincterotomy had been performed. The sphincterotomy appeared stenosed or narrowed. Deep cannulation and injection of contrast into the dorsal pancreatic duct was accomplished with the short-nosed traction sphincterotome (Omni 35) and 0.025 in Acrobat guidewire. A complete pancreas divisum was identified (seen on prior MRCP). Diffuse changes, including dilation of the main pancreatic duct, irregularity of the main pancreatic duct and ductal stenosis, were seen in the main pancreatic duct, consistent with moderate chronic pancreatitis. A 2 cm stenosis was noted in the proximal portion of the PD with upstream dilation. The dorsal pancreatic sphincterotomy was extended with a monofilament short-tip traction sphincterotome using ERBE electrocautery. There was no post-sphincterotomy bleeding. The main pancreatic duct was successfully dilated with a 4 mm balloon dilator held inflated for 90 seconds. Repeat pancreatogram showed minimal improvement. Therefore the PD wire was exchanged to a 0.035 in Acrobat long-wire. Dilation of the main pancreatic duct was thent performed 5-7-10 Fr catheter dilator was successful. One 5 Fr by 9 cm pancreatic stent with a full external pigtail and a single internal flap was placed 9 cm into the dorsal pancreatic duct. Clear fluid flowed through the stent(s). The stent was in good position. The endoscope was withdrawn from the patient. Impression: - Prior biliary endoscopic sphincterotomy appeared open. - The patient has had a cholecystectomy. - The biliary tree was swept and sludge was found. - Prior minor papilla endoscopic sphincterotomy appeared stenosed or narrowed. - The main pancreatic duct and proximal stricture was successfully dilated to 10 Fr - One pancreatic stent was placed into the dorsal pancreatic duct. - Moderate chronic pancreatitis. - Pancreas divisum was found. A stent was placed in the minor papilla. Recommendation: - Avoid aspirin and nonsteroidal anti-inflammatory medicines for 5 days. - Use broad spectrum antibiotics for 3 days. - Clear liquid diet today. - Observe patient's clinical course following today's ERCP with therapeutic intervention. - Repeat ERCP in 3 months to remove stent and repeat a pancreatogram - LR 150 ml / hour today. Meche Mcfadden D.O. Meche Mcfadden, DO 09/16/2017 12:34:18 PM This report has been signed electronically. Note Initiated On: 09/16/2017 11:29 AM I attest to the content of the Intraoperative Record and orders documented therein, exceptions below
[2017-09-16] MEDS: CIPROFLOXACIN / D5W 400 MG in PREMIXED IN D5W 200 ML IV SCH (20:35)
[2017-09-16] MEDS: ATORVASTATIN 10 MG TAB PO SCH (20:41)
[2017-09-16] MEDS: MIRTAZAPINE TAB 15 MG TAB PO SCH (20:42)
[2017-09-16] MEDS: ROPINIROLE HCL 1 MG TAB PO SCH (20:42)
[2017-09-16] MEDS: TRAZODONE HCL 50 MG TAB PO SCH (20:45)
[2017-09-16] MEDS ORDERED: INSULIN GLARGINE SOLOSTAR 100 UNITS/ML 3 ML PEN SC ONE (22:48)
[2017-09-17] MEDS: HEPARIN SOD 5000 UNIT/0.5 ML CARP SQ SCH ×3 (05:12→20:49)
[2017-09-17] MEDS: SODIUM CHLORIDE 0.9% 1000ML 1,000 ML IV SCH ×3 (05:12→20:31)
[2017-09-17 05:26] VITALS: PULSE 75; O2SAT 96
[2017-09-17] MEDS: ALBUT/IPRATROP 3MG/0.5MG NEB 3 ML VIAL INH PRN ×2 (05:26→15:37)
[2017-09-17 06:32] LABS: BUN/CREATININE RATIO 6.9 (10-20); CREATININE 1.1 mg/dl (0.60-1.20); POTASSIUM 3.5 mmol/L (3.5-5.1)
[2017-09-17 06:35] LABS: ALB/GLOB RATIO 0.9 (0.9-2)
[2017-09-17 07:39] LABS: HEMATOCRIT 33.7 % (37-47); MEAN CELL VOLUME 90.6 fL (80-100); MEAN CORPUSCULAR HEMOGLOBIN 30.4 pg (25-34); MEAN CORPUSCULAR HGB CONC 33.5 g/dl (32-36); MEAN PLATELET VOLUME 9.5 fL (7.4-10.4); PLATELET COUNT 205 K/uL (130-400); RED BLOOD COUNT 3.72 M/uL (4.2-5.4); WHITE BLOOD COUNT 10.16 K/uL (4.8-10.8)
[2017-09-17] MEDS: AMLODIPINE BESYLATE 5 MG TAB PO SCH (07:44)
[2017-09-17] MEDS: RANITIDINE HCL 150 MG TAB PO SCH ×2 (07:45→20:36)
[2017-09-17] MEDS: PANCREAZE (LIPASE 4,200U) CAP PO SCH ×4 (07:45→20:34)
[2017-09-17] MEDS: PANTOprazole SOD 40 MG TAB PO SCH (07:45)
[2017-09-17] MEDS: GABAPENTIN 400 MG CAP PO SCH ×2 (07:45→20:33)
[2017-09-17] MEDS: LOSARTAN POTASSIUM 50 MG TAB PO SCH (07:45)
[2017-09-17] MEDS: ASPIRIN 81 MG ECTAB PO SCH (07:45)
[2017-09-17] MEDS: METOPROLOL TARTRATE 50 MG TAB PO SCH ×2 (07:45→20:33)
[2017-09-17] MEDS: MAGNESIUM OXIDE 400 MG TAB PO SCH (07:45)
[2017-09-17] MEDS: ESCITALOPRAM OXALATE 10 MG TAB PO SCH (07:46)
[2017-09-17] MEDS: CIPROFLOXACIN / D5W 400 MG in PREMIXED IN D5W 200 ML IV SCH ×2 (07:46→20:32)
[2017-09-17] MEDS: INSULIN ASPART 100 UNITS/ML 3 ML PEN SC SCH ×4 (07:52→20:49)
[2017-09-17] MEDS: INSULIN GLARGINE SOLOSTAR 100 UNITS/ML 3 ML PEN SC SCH ×2 (07:53→20:49)
[2017-09-17] MEDS: TRAMADOL HCL 50 MG TAB PO PRN (07:56)
[2017-09-17] MEDS ORDERED: HydrALAZINE 10 MG TAB PO ONE (08:45)
[2017-09-17] MEDS ORDERED: ALBUT/IPRATROP 3MG/0.5MG NEB 3 ML VIAL INH ONE (08:45)
--- NOTE | 2017-09-17 09:28 | Progress Note ---
Subjective Date of Service: Sep 17, 2017. Subjective Pt evaluation today including: conversation w/ patient, physical exam, lab review, review of studies, review of inpatient medication list Saw/examined the patient in room 255 She is oriented today; does not recall events of yesterday after the ERCP States her pain is controlled; tolerating the clear liquid diet +wheezing and +cough present today Problem List Medical Problems: (1) Acute bronchitis Status: Acute (2) Asthma exacerbation Status: Acute (3) Back pain Status: Acute (4) COPD exacerbation Status: Acute (5) Cough Status: Acute (6) Dehydration Status: Acute (7) Epigastric abdominal pain Status: Acute (8) Headache Status: Acute (9) HTN (hypertension) Status: Acute (10) Hyperglycemia Status: Acute (11) Hyperglycemia Status: Acute (12) Influenza B Status: Acute (13) Low back pain Status: Acute (14) Pancreatitis Status: Acute (15) Pancreatitis Status: Acute (16) Right thigh pain Status: Acute (17) Signs and symptoms of severe respiratory distress Status: Acute (18) SOB (shortness of breath) Status: Acute (19) Stroke Status: Acute (20) Swelling of right upper extremity Status: Acute (21) Upper abdominal pain Status: Acute (22) UTI (urinary tract infection) Status: Acute (23) Weakness Status: Acute Review of Systems Constitutional: No fever, No chills Respiratory: + cough, + sputum, + wheezing, + shortness of breath Cardiac: No chest pain Abdomen: No pain, No nausea, No vomiting, No diarrhea Medications Current Inpatient Medications Medications (Trade) Dose Ordered Sig/Rosetta Route Start Time Stop Time Status Last Admin Dose Admin Metoprolol Tartrate (Lopressor Tab) 50 mg BID PO 09/10/17 21:00 10/10/17 20:59 09/17/17 07:45 50 MG Heparin Sodium (Porcine) (Heparin Sq 5000 Unit/0.5ml) 5,000 unit Q8H SQ 09/10/17 22:00 10/10/17 21:59 09/17/17 05:12 5,000 UNIT Acetaminophen (Tylenol Tab) 650 mg Q4H PRN PO 09/10/17 21:45 10/10/17 21:44 Glucose (Glucose 40% Gel) 15-30 GRAMS 15 GRAMS... UD PRN PO 09/10/17 21:45 10/10/17 21:44 Glucose (Glucose Chew Tab) 4-8 Tablets 4 Tabl... UD PRN PO 09/10/17 21:45 10/10/17 21:44 Dextrose (Dextrose 50% 50ML Syringe) 25-50ML OF 50% DW IV FOR... UD PRN IV 09/10/17 21:45 10/10/17 21:44 09/16/17 10:25 25 ML Glucagon (Glucagon Inj) 1 mg UD PRN SQ 09/10/17 21:45 10/10/17 21:44 Hydromorphone HCl (Dilaudid Inj) 0.5 mg Q3H PRN IV 09/10/17 21:45 09/24/17 21:44 09/16/17 05:26 0.5 MG Ondansetron HCl (Zofran Inj) 4 mg Q6H PRN IV 09/10/17 21:45 10/10/17 21:44 09/11/17 09:33 4 MG Aspirin (Ecotrin Tab) 81 mg QAM PO 09/11/17 09:00 10/11/17 08:59 09/17/17 07:45 81 MG Docusate Sodium (coLACE CAP) 100 mg BID PRN PO 09/10/17 21:45 10/10/17 21:44 Escitalopram Oxalate (Lexapro Tab) 15 mg QAM PO 09/11/17 09:00 10/11/17 08:59 09/17/17 07:46 15 MG Gabapentin (Neurontin Cap) 400 mg BID PO 09/11/17 09:00 10/11/17 08:59 09/17/17 07:45 400 MG Lorazepam (Ativan Tab) 0.5 mg Q6H PRN PO 09/10/17 21:45 10/10/17 21:44 09/16/17 19:14 0.5 MG Mirtazapine (Remeron Tab) 30 mg HS PO 09/11/17 21:00 10/11/17 20:59 09/16/17 20:42 30 MG Ranitidine HCl (zANTac TAB) 75 mg BID PO 09/11/17 09:00 10/11/17 08:59 09/17/17 07:45 75 MG Ropinirole HCl (Requip Tab) 1 mg HS PO 09/11/17 21:00 10/11/17 20:59 09/16/17 20:42 1 MG Tramadol HCl (Ultram Tab) 50 mg Q4H PRN PO 09/10/17 21:45 10/10/17 21:44 09/17/17 07:56 50 MG Trazodone HCl (Desyrel Tab) 50 mg HS PO 09/11/17 21:00 10/11/17 20:59 09/16/17 20:45 50 MG Budesonide (Pulmicort Respules 0.5MG/ 2ML Neb Soln) 0.5 mg BID PRN INH 09/10/17 21:45 10/10/17 21:44 Pantoprazole Sodium (Protonix Tab) 40 mg QAM PO 09/11/17 09:00 10/11/17 08:59 09/17/17 07:45 40 MG Heparin Sodium (Porcine) (Heparin 100 Unit/ml 5ml Flush) 5 ml PRN PRN IV 09/10/17 23:45 10/10/17 23:44 09/13/17 05:21 5 ML Insulin Aspart (novoLOG ASPART) SLIDING SCALE If C... ACHS SC 09/12/17 11:00 10/12/17 10:59 09/17/17 07:52 1 UNITS Atorvastatin Calcium (Lipitor Tab) 10 mg QPM PO 09/12/17 21:00 10/12/17 20:59 09/16/17 20:41 10 MG Albuterol/ Ipratropium (Duoneb) 3 ml Q4H PRN INH 09/12/17 19:00 10/12/17 18:59 09/17/17 05:26 3 ML Losartan Potassium (coZAAR TAB) 100 mg QAM PO 09/13/17 09:00 10/13/17 08:59 09/17/17 07:45 100 MG Magnesium Oxide (Mag-Ox Tab) 400 mg QAM PO 09/13/17 09:00 10/13/17 08:59 09/17/17 07:45 400 MG Amylase/Lipase/ Protease (Pancreaze (Lipase 4,200U) Cap) 1 cap QID PO 09/12/17 21:00 10/12/17 20:59 09/17/17 07:45 1 CAP Sodium Chloride 1,000 ml @ 150 mls/hr Q6H40M IV 09/13/17 18:45 10/13/17 18:44 09/17/17 05:12 150 MLS/HR Insulin Glargine (Lantus Solostar Pen) 25 units BID SC 09/14/17 09:00 10/14/17 08:59 09/17/17 07:53 25 UNITS Amlodipine Besylate (Norvasc Tab) 10 mg QAM PO 09/16/17 09:00 10/11/17 08:59 09/17/17 07:44 10 MG Ciprofloxacin/ Dextrose 400 mg/ Prmx 200 ml @ 100 mls/hr Q12 IV 09/16/17 21:00 09/19/17 20:59 09/17/17 07:46 100 MLS/HR Objective Vital Signs Date Time Temp Pulse Resp B/P (MAP) Pulse Ox O2 Delivery O2 Flow Rate FiO2 09/17/17 05:26 75 25 96 Room Air 09/17/17 00:00 Room Air 09/16/17 23:10 36.4 58 20 171/70 (103) 94 Room Air 09/16/17 21:00 Room Air 09/16/17 20:40 50 12/81 (58) 09/16/17 19:12 50 176/78 (110) 09/16/17 16:45 36.5 53 20 178/76 (110) 95 Room Air 09/16/17 15:35 Nasal Cannula 4.0 09/16/17 15:23 Nasal Cannula 4.0 09/16/17 15:15 36.3 50 16 162/77 (105) 97 Nasal Cannula 4.0 09/16/17 14:56 36.3 47 16 150/79 (102) 93 Nasal Cannula 09/16/17 14:40 52 16 157/90 97 Nasal Cannula 4 09/16/17 14:30 36.3 50 16 156/87 96 Nasal Cannula 4 09/16/17 14:20 49 16 184/85 95 Nasal Cannula 4 09/16/17 14:10 55 16 154/92 97 Nasal Cannula 4 09/16/17 14:00 45 16 169/84 93 Nasal Cannula 4 09/16/17 13:50 50 16 164/76 93 Nasal Cannula 4 09/16/17 13:40 54 16 188/85 95 Nasal Cannula 4 09/16/17 13:30 54 16 179/74 93 Nasal Cannula 4 09/16/17 13:20 36.2 56 14 171/76 94 Nasal Cannula 3 09/16/17 13:10 51 16 147/50 95 Nasal Cannula 3 09/16/17 13:00 47 16 175/95 94 Nasal Cannula 3 09/16/17 12:50 54 14 179/94 96 Mask 5 09/16/17 12:40 60 14 180/80 92 Mask 10 09/16/17 12:34 36.6 63 14 171/94 85 Nasal Cannula 2 Physical Exam General Appearance: no apparent distress Respiratory/Chest: no respiratory distress, no accessory muscle use, + wheezing (end expiratory wheezing, diffusely) Cardiovascular: regular rate, rhythm, no edema, no murmur Abdomen: normal bowel sounds, non tender, soft Laboratory Results Last 24 Hours Test 09/16/17 10:15 09/16/17 12:40 09/16/17 16:30 09/16/17 20:07 Bedside Glucose 61 mg/dl 151 mg/dl 181 mg/dl 279 mg/dl Test 09/16/17 22:46 09/17/17 05:27 09/17/17 07:26 Bedside Glucose 279 mg/dl 107 mg/dl White Blood Count 10.16 K/uL Red Blood Count 3.72 M/uL Hemoglobin 11.3 g/dL Hematocrit 33.7 % Mean Corpuscular Volume 90.6 fL Mean Corpuscular Hemoglobin 30.4 pg Mean Corpuscular Hemoglobin Concent 33.5 g/dl RDW Standard Deviation 46.0 fL RDW Coefficient of Variation 14.1 % Platelet Count 205 K/uL Mean Platelet Volume 9.5 fL Sodium Level 144 mmol/L Potassium Level 3.5 mmol/L Chloride Level 113 mmol/L Carbon Dioxide Level 26 mmol/L Anion Gap 5.0 mmol/L Blood Urea Nitrogen 8 mg/dl Creatinine 1.10 mg/dl Est Creatinine Clear Calc Drug Dose 38.2 ml/min Estimated GFR () 56.1 Estimated GFR (Non- 48.4 BUN/Creatinine Ratio 6.9 Random Glucose 132 mg/dl Calcium Level 8.0 mg/dl Total Bilirubin 0.3 mg/dl Aspartate Amino Transf (AST/SGOT) 23 U/L Alanine Aminotransferase (ALT/SGPT) 36 U/L Alkaline Phosphatase 100 U/L Total Protein 6.3 gm/dl Albumin 2.9 gm/dl Globulin 3.4 gm/dl Albumin/Globulin Ratio 0.9 Lipase 953 U/L Assessment and Plan This is a 77 year old female with a PMH of insulin dependent DM2, 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 and IPMN, hx of CVA as per records, HTN, HLD presents with acute pancreatitis Acute, Recurrent Pancreatitis s/p ERCP doing better today after stenting on clears, will await GI recommendation regarding advancing diet IVFs monitor lipase 09/16 s/p ERCP and pancreatic duct stent placement +confused - possibly secondary to anesthesia will monitor overnight; check labs in AM, check lipase in AM further management as per GI 09/15 secondary to possible pancreatic divisum and possible IPMN currently on IVFs and clears lipase initially >900 and now down to wnl plan for an EUS and ERCP in AM (09/16) NPO after midnight appreciate GI input Acute Kidney Injury superimposed on CKD stage 3 due to nausea/vomiting secondary to acute pancreatitis creatinine initial about 1.33 creat now down <1, at baseline continue IVFs + clears HTN - uncontrolled 09/17 gave an extra dose of hydralazine continue Norvasc continue Cozaar Wheezing underlying COPD? will try nebs for now and monitor may need to d/c fluids and check CXR if persistent Insulin Dependent DM2 monitor BSGs sliding scale + Lantus monitor due to clears and NPO status DVT ppx subq heparin FULL CODE
[2017-09-17 09:49] VITALS: BP 144/77; PULSE 54; O2SAT 95
--- NOTE | 2017-09-17 09:50 | Gastroenterology Progress Note ---
Progress Note Date of Service: Sep 17, 2017 Subjective Pt evaluation today including: conversation w/ patient, physical exam, chart review, lab review Pt seen and evaluated, chart reviewed. S/P EGD/EUS/ERCP yesterday. Tolerated procedure OK. Had some postoperative pain, resolved with analgesia. Had postoperative KUB, pancreatic duct stent showing normal position. Nonobstructive bowel pattern. No evidence for free air or obstructive change. This morning has some mild upper abdominal discomfort, she reports its better than it was before EGD/EUS/ERCP. No nausea or vomiting. She reports she feels wheezing this AM, she has a history of asthma as well. No fever, chills, CP, SOB. Review of Systems Constitutional: No fever, No chills Respiratory: No cough, No shortness of breath Cardiac: No chest pain, No edema Abdomen: + pain, + constipation, No nausea, No vomiting, No diarrhea Medications Current Inpatient Medications Medications (Trade) Dose Ordered Sig/Rosetta Route Start Time Stop Time Status Last Admin Dose Admin Metoprolol Tartrate (Lopressor Tab) 50 mg BID PO 09/10/17 21:00 10/10/17 20:59 09/17/17 07:45 50 MG Heparin Sodium (Porcine) (Heparin Sq 5000 Unit/0.5ml) 5,000 unit Q8H SQ 09/10/17 22:00 10/10/17 21:59 09/17/17 05:12 5,000 UNIT Acetaminophen (Tylenol Tab) 650 mg Q4H PRN PO 09/10/17 21:45 10/10/17 21:44 Glucose (Glucose 40% Gel) 15-30 GRAMS 15 GRAMS... UD PRN PO 09/10/17 21:45 10/10/17 21:44 Glucose (Glucose Chew Tab) 4-8 Tablets 4 Tabl... UD PRN PO 09/10/17 21:45 10/10/17 21:44 Dextrose (Dextrose 50% 50ML Syringe) 25-50ML OF 50% DW IV FOR... UD PRN IV 09/10/17 21:45 10/10/17 21:44 09/16/17 10:25 25 ML Glucagon (Glucagon Inj) 1 mg UD PRN SQ 09/10/17 21:45 10/10/17 21:44 Hydromorphone HCl (Dilaudid Inj) 0.5 mg Q3H PRN IV 09/10/17 21:45 09/24/17 21:44 09/16/17 05:26 0.5 MG Ondansetron HCl (Zofran Inj) 4 mg Q6H PRN IV 09/10/17 21:45 10/10/17 21:44 09/11/17 09:33 4 MG Aspirin (Ecotrin Tab) 81 mg QAM PO 09/11/17 09:00 10/11/17 08:59 09/17/17 07:45 81 MG Docusate Sodium (coLACE CAP) 100 mg BID PRN PO 09/10/17 21:45 10/10/17 21:44 Escitalopram Oxalate (Lexapro Tab) 15 mg QAM PO 09/11/17 09:00 10/11/17 08:59 09/17/17 07:46 15 MG Gabapentin (Neurontin Cap) 400 mg BID PO 09/11/17 09:00 10/11/17 08:59 09/17/17 07:45 400 MG Lorazepam (Ativan Tab) 0.5 mg Q6H PRN PO 09/10/17 21:45 10/10/17 21:44 09/16/17 19:14 0.5 MG Mirtazapine (Remeron Tab) 30 mg HS PO 09/11/17 21:00 10/11/17 20:59 09/16/17 20:42 30 MG Ranitidine HCl (zANTac TAB) 75 mg BID PO 09/11/17 09:00 10/11/17 08:59 09/17/17 07:45 75 MG Ropinirole HCl (Requip Tab) 1 mg HS PO 09/11/17 21:00 10/11/17 20:59 09/16/17 20:42 1 MG Tramadol HCl (Ultram Tab) 50 mg Q4H PRN PO 09/10/17 21:45 10/10/17 21:44 09/17/17 07:56 50 MG Trazodone HCl (Desyrel Tab) 50 mg HS PO 09/11/17 21:00 10/11/17 20:59 09/16/17 20:45 50 MG Budesonide (Pulmicort Respules 0.5MG/ 2ML Neb Soln) 0.5 mg BID PRN INH 09/10/17 21:45 10/10/17 21:44 Pantoprazole Sodium (Protonix Tab) 40 mg QAM PO 09/11/17 09:00 10/11/17 08:59 09/17/17 07:45 40 MG Heparin Sodium (Porcine) (Heparin 100 Unit/ml 5ml Flush) 5 ml PRN PRN IV 09/10/17 23:45 10/10/17 23:44 09/13/17 05:21 5 ML Insulin Aspart (novoLOG ASPART) SLIDING SCALE If C... ACHS SC 09/12/17 11:00 10/12/17 10:59 09/17/17 07:52 1 UNITS Atorvastatin Calcium (Lipitor Tab) 10 mg QPM PO 09/12/17 21:00 10/12/17 20:59 09/16/17 20:41 10 MG Albuterol/ Ipratropium (Duoneb) 3 ml Q4H PRN INH 09/12/17 19:00 10/12/17 18:59 09/17/17 05:26 3 ML Losartan Potassium (coZAAR TAB) 100 mg QAM PO 09/13/17 09:00 10/13/17 08:59 09/17/17 07:45 100 MG Magnesium Oxide (Mag-Ox Tab) 400 mg QAM PO 09/13/17 09:00 10/13/17 08:59 09/17/17 07:45 400 MG Amylase/Lipase/ Protease (Pancreaze (Lipase 4,200U) Cap) 1 cap QID PO 09/12/17 21:00 10/12/17 20:59 09/17/17 07:45 1 CAP Sodium Chloride 1,000 ml @ 150 mls/hr Q6H40M IV 09/13/17 18:45 10/13/17 18:44 09/17/17 05:12 150 MLS/HR Insulin Glargine (Lantus Solostar Pen) 25 units BID SC 09/14/17 09:00 10/14/17 08:59 09/17/17 07:53 25 UNITS Amlodipine Besylate (Norvasc Tab) 10 mg QAM PO 09/16/17 09:00 10/11/17 08:59 09/17/17 07:44 10 MG Ciprofloxacin/ Dextrose 400 mg/ Prmx 200 ml @ 100 mls/hr Q12 IV 09/16/17 21:00 09/19/17 20:59 09/17/17 07:46 100 MLS/HR Objective Vital Signs Date Time Temp Pulse Resp B/P (MAP) Pulse Ox O2 Delivery O2 Flow Rate FiO2 09/17/17 08:30 Room Air 09/17/17 05:26 75 25 96 Room Air 09/17/17 00:00 Room Air 09/16/17 23:10 36.4 58 20 171/70 (103) 94 Room Air 09/16/17 21:00 Room Air 09/16/17 20:40 50 12/81 (58) 09/16/17 19:12 50 176/78 (110) 09/16/17 16:45 36.5 53 20 178/76 (110) 95 Room Air 09/16/17 15:35 Nasal Cannula 4.0 09/16/17 15:23 Nasal Cannula 4.0 09/16/17 15:15 36.3 50 16 162/77 (105) 97 Nasal Cannula 4.0 09/16/17 14:56 36.3 47 16 150/79 (102) 93 Nasal Cannula 09/16/17 14:40 52 16 157/90 97 Nasal Cannula 4 09/16/17 14:30 36.3 50 16 156/87 96 Nasal Cannula 4 09/16/17 14:20 49 16 184/85 95 Nasal Cannula 4 09/16/17 14:10 55 16 154/92 97 Nasal Cannula 4 09/16/17 14:00 45 16 169/84 93 Nasal Cannula 4 09/16/17 13:50 50 16 164/76 93 Nasal Cannula 4 09/16/17 13:40 54 16 188/85 95 Nasal Cannula 4 09/16/17 13:30 54 16 179/74 93 Nasal Cannula 4 09/16/17 13:20 36.2 56 14 171/76 94 Nasal Cannula 3 09/16/17 13:10 51 16 147/50 95 Nasal Cannula 3 09/16/17 13:00 47 16 175/95 94 Nasal Cannula 3 09/16/17 12:50 54 14 179/94 96 Mask 5 09/16/17 12:40 60 14 180/80 92 Mask 10 09/16/17 12:34 36.6 63 14 171/94 85 Nasal Cannula 2 Physical Exam General Appearance: no apparent distress Eyes: PERRL ENT: hearing grossly normal Neck: supple Respiratory/Chest: lungs clear, no respiratory distress, + wheezing (some expiratory wheeze, R>L) Cardiovascular: regular rate, rhythm Abdomen: normal bowel sounds, soft, no organomegaly, no pulsatile mass, + tenderness Neurologic/Psych: alert, normal mood/affect, oriented x 3 Skin: normal color, no jaundice Laboratory Results Last 24 Hours Test 09/16/17 10:15 09/16/17 12:40 09/16/17 16:30 09/16/17 20:07 Bedside Glucose 61 mg/dl 151 mg/dl 181 mg/dl 279 mg/dl Test 09/16/17 22:46 09/17/17 05:27 09/17/17 07:26 Bedside Glucose 279 mg/dl 107 mg/dl White Blood Count 10.16 K/uL Red Blood Count 3.72 M/uL Hemoglobin 11.3 g/dL Hematocrit 33.7 % Mean Corpuscular Volume 90.6 fL Mean Corpuscular Hemoglobin 30.4 pg Mean Corpuscular Hemoglobin Concent 33.5 g/dl RDW Standard Deviation 46.0 fL RDW Coefficient of Variation 14.1 % Platelet Count 205 K/uL Mean Platelet Volume 9.5 fL Sodium Level 144 mmol/L Potassium Level 3.5 mmol/L Chloride Level 113 mmol/L Carbon Dioxide Level 26 mmol/L Anion Gap 5.0 mmol/L Blood Urea Nitrogen 8 mg/dl Creatinine 1.10 mg/dl Est Creatinine Clear Calc Drug Dose 38.2 ml/min Estimated GFR () 56.1 Estimated GFR (Non- 48.4 BUN/Creatinine Ratio 6.9 Random Glucose 132 mg/dl Calcium Level 8.0 mg/dl Total Bilirubin 0.3 mg/dl Aspartate Amino Transf (AST/SGOT) 23 U/L Alanine Aminotransferase (ALT/SGPT) 36 U/L Alkaline Phosphatase 100 U/L Total Protein 6.3 gm/dl Albumin 2.9 gm/dl Globulin 3.4 gm/dl Albumin/Globulin Ratio 0.9 Lipase 953 U/L Assessment and Plan Patient is a 77 year old female w epigastric abd pain radiating to lower back, nausea, noted to have elevated lipase w normal LFTs, abd CT consistent w/ mild aucte pancreatitis. She has hx of pancreas head cyst likely IPMN vs pseudocyst , pancreas divisum, s/p cholecystectomy, EUS/ERCP for sphincterectomy, pancreas stent placements last done in 07/2015. She is s/p EGD/EUS/ERCP with stent placement. Mild improvement of her symptoms, pt wants to try advancing diet. - Clear liquids --> ok to advance to low fat diet as tolerated - IVF 150 ml/hr - Antiemetics and analgesics prn for symptomatic management - Follow up as outpatient EUS/ERCP as scheduled in 3 months GI to sign off, please call with questions or concerns. No GI contraindication to discharge. I saw and evaluated the patient. She does have some lower abdominal discomfort described as cramping. She tolerated her ERCP well yesterday with pancreatic stent placement. She appears to be tolerating a regular diet today without any difficulties. Plan Advance diet as tolerated Complete a 5 day course of prophylactic ciprofloxacin Repeat EUS and ERCP in 6-8 weeks Try Bentyl 10 mg 3 times daily for cramping Please call with any questions or concerns
[2017-09-17] MEDS ORDERED: POLYETHYLENE (MIRALAX) 17 GM PACK PO ONE (10:00)
[2017-09-17 15:27] VITALS: BP 136/80; PULSE 59; TEMP 36.3; O2SAT 96
[2017-09-17 15:40] VITALS: PULSE 63; O2SAT 96
[2017-09-17 15:48] VITALS: O2SAT 96
[2017-09-17] MEDS: TRAZODONE HCL 50 MG TAB PO SCH (20:32)
[2017-09-17] MEDS: ROPINIROLE HCL 1 MG TAB PO SCH (20:32)
[2017-09-17] MEDS: MIRTAZAPINE TAB 15 MG TAB PO SCH (20:32)
[2017-09-17] MEDS: ATORVASTATIN 10 MG TAB PO SCH (20:34)
--- NOTE | 2017-09-17 20:34 | DIAGNOSTIC IMAGING REPORT ---
ULTRASOUND VENOUS DOPPLER LWR EXT BILA CLINICAL HISTORY: Leg swelling COMPARISON STUDY: 09/26/2016 FINDINGS: Real-time and color flow Doppler imaging were performed. Flow was seen within the femoral, popliteal and calf veins with no intraluminal thrombus demonstrated. The saphenous vein is patent. IMPRESSION: No evidence of lower extremity DVT. Electronically signed by: Dipak Velasquez M.D. 09/17/2017 8:33 PM Dictated Date/Time: 09/17/2017 8:32 PM
[2017-09-17 23:23] VITALS: BP 164/80; PULSE 73; TEMP 36.6; O2SAT 95
[2017-09-18] MEDS: SODIUM CHLORIDE 0.9% 1000ML 1,000 ML IV SCH ×2 (02:04→08:36)
[2017-09-18] MEDS ORDERED: COUGH DROP (SUGAR FREE) LOZ 24 LOZ/1 BOX PO PRN (05:15)
[2017-09-18] MEDS: HEPARIN SOD 5000 UNIT/0.5 ML CARP SQ SCH (05:50)
[2017-09-18] MEDS ORDERED: NURSING VERBAL MED ORDER ONE (06:00)
[2017-09-18] MEDS ORDERED: CHLORASEPTIC 1.4% SOLN 180 ML BTL MT PRN (06:00)
[2017-09-18 06:04] LABS: HEMATOCRIT 32.3 % (37-47); MEAN CORPUSCULAR HEMOGLOBIN 31.2 pg (25-34); MEAN CORPUSCULAR HGB CONC 34.7 g/dl (32-36); MEAN PLATELET VOLUME 9.4 fL (7.4-10.4); PLATELET COUNT 194 K/uL (130-400); RED BLOOD COUNT 3.59 M/uL (4.2-5.4); WHITE BLOOD COUNT 9.47 K/uL (4.8-10.8)
[2017-09-18 06:39] LABS: BUN/CREATININE RATIO 8.9 (10-20); CALCIUM 8.2 mg/dl (8.5-10.1); CREATININE 1.19 mg/dl (0.60-1.20); MAGNESIUM 1.7 mg/dl (1.8-2.4); POTASSIUM 3.6 mmol/L (3.5-5.1)
[2017-09-18 06:50] VITALS: BP 174/76; PULSE 67; TEMP 36.6; O2SAT 90
[2017-09-18] MEDS ORDERED: CHLORTHALIDONE 25 MG TAB PO ONE (08:00)
[2017-09-18] MEDS: LOSARTAN POTASSIUM 50 MG TAB PO SCH (08:32)
[2017-09-18] MEDS: ESCITALOPRAM OXALATE 10 MG TAB PO SCH (08:32)
[2017-09-18] MEDS: PANTOprazole SOD 40 MG TAB PO SCH (08:32)
[2017-09-18] MEDS: METOPROLOL TARTRATE 50 MG TAB PO SCH (08:33)
[2017-09-18] MEDS: ASPIRIN 81 MG ECTAB PO SCH (08:33)
[2017-09-18] MEDS: RANITIDINE HCL 150 MG TAB PO SCH (08:33)
[2017-09-18] MEDS: GABAPENTIN 400 MG CAP PO SCH (08:33)
[2017-09-18] MEDS: PANCREAZE (LIPASE 4,200U) CAP PO SCH ×2 (08:34→12:53)
[2017-09-18] MEDS: AMLODIPINE BESYLATE 5 MG TAB PO SCH (08:34)
[2017-09-18] MEDS: MAGNESIUM OXIDE 400 MG TAB PO SCH (08:35)
[2017-09-18] MEDS: CIPROFLOXACIN / D5W 400 MG in PREMIXED IN D5W 200 ML IV SCH (08:35)
[2017-09-18] MEDS: ONDANSETRON INJ 2 MG/ML 2 ML VIAL IV PRN (08:42)
[2017-09-18] MEDS: TRAMADOL HCL 50 MG TAB PO PRN (08:42)
[2017-09-18] MEDS: INSULIN ASPART 100 UNITS/ML 3 ML PEN SC SCH ×2 (08:55→12:57)
[2017-09-18] MEDS: INSULIN GLARGINE SOLOSTAR 100 UNITS/ML 3 ML PEN SC SCH (08:55)
[2017-09-18] MEDS ORDERED: POLYETHYLENE (MIRALAX) 17 GM PACK PO SCH (09:00)
--- NOTE | 2017-09-18 09:35 | Progress Note ---
Progress Note Date of Service Sep 18, 2017. (Shannan Nagel CRNP) Progress Note Pt seen and evaluated, chart reviewed. S/P EGD/EUS/ERCP. Diet was advanced yesterday and tolerated. Reports lower abd pain and cramping. Had miralax x 2, no BM. Postoperative KUB, pancreatic duct stent showing normal position. Nonobstructive bowel pattern. No evidence for free air or obstructive change. This morning has some mild upper abdominal discomfort, she reports its better than it was before EGD/EUS/ERCP. No nausea or vomiting. She reports she feels wheezing this AM, she has a history of asthma as well. No fever, chills, CP, SOB. Assessment: no acute distress, lungs CTA, heart RRR, abd, soft, mildly distended with normal BS, generalized mild discomfort. - consider Suppository/Enema but pt denied - Complete a 5 day course of prophylactic ciprofloxacin - Repeat EUS and ERCP in 6-8 weeks - Try Bentyl 10 mg 3 times daily for cramping - Please call with any questions or concerns - GI signing off (Shannan Nagel ., JOE) I have seen and examined the patient today and agrees with the PA (Shannan) note. Patient feels better today and would like to go home. Pain improved and she has constipations likely from opioids. Continue laxatives and ambulate as tolerated. Follow up in GI clinic with . (Gloria Ramos M.D.)
[2017-09-18 10:04] VITALS: BP 171/81; PULSE 69; O2SAT 92
--- NOTE | 2017-09-18 10:47 | Progress Note ---
Subjective Date of Service: Sep 18, 2017. Subjective Pt evaluation today including: conversation w/ patient, physical exam, lab review, review of studies, review of inpatient medication list Saw/examined the patient in room 255 Has some abdominal cramping/pain/nausea She states she is okay even with the cramping - eager to get home No other symptoms Problem List Medical Problems: (1) Acute bronchitis Status: Acute (2) Asthma exacerbation Status: Acute (3) Back pain Status: Acute (4) COPD exacerbation Status: Acute (5) Cough Status: Acute (6) Dehydration Status: Acute (7) Epigastric abdominal pain Status: Acute (8) Headache Status: Acute (9) HTN (hypertension) Status: Acute (10) Hyperglycemia Status: Acute (11) Hyperglycemia Status: Acute (12) Influenza B Status: Acute (13) Low back pain Status: Acute (14) Pancreatitis Status: Acute (15) Pancreatitis Status: Acute (16) Right thigh pain Status: Acute (17) Signs and symptoms of severe respiratory distress Status: Acute (18) SOB (shortness of breath) Status: Acute (19) Stroke Status: Acute (20) Swelling of right upper extremity Status: Acute (21) Upper abdominal pain Status: Acute (22) UTI (urinary tract infection) Status: Acute (23) Weakness Status: Acute Review of Systems Respiratory: + wheezing, No shortness of breath Cardiac: No chest pain Abdomen: + see HPI, + pain, + nausea, No vomiting, No diarrhea, No constipation , No GI bleeding Medications Current Inpatient Medications Medications (Trade) Dose Ordered Sig/Rosetta Route Start Time Stop Time Status Last Admin Dose Admin Metoprolol Tartrate (Lopressor Tab) 50 mg BID PO 09/10/17 21:00 10/10/17 20:59 09/18/17 08:33 50 MG Heparin Sodium (Porcine) (Heparin Sq 5000 Unit/0.5ml) 5,000 unit Q8H SQ 09/10/17 22:00 10/10/17 21:59 09/18/17 05:50 5,000 UNIT Acetaminophen (Tylenol Tab) 650 mg Q4H PRN PO 09/10/17 21:45 10/10/17 21:44 Glucose (Glucose 40% Gel) 15-30 GRAMS 15 GRAMS... UD PRN PO 09/10/17 21:45 10/10/17 21:44 Glucose (Glucose Chew Tab) 4-8 Tablets 4 Tabl... UD PRN PO 09/10/17 21:45 10/10/17 21:44 Dextrose (Dextrose 50% 50ML Syringe) 25-50ML OF 50% DW IV FOR... UD PRN IV 09/10/17 21:45 10/10/17 21:44 09/16/17 10:25 25 ML Glucagon (Glucagon Inj) 1 mg UD PRN SQ 09/10/17 21:45 10/10/17 21:44 Hydromorphone HCl (Dilaudid Inj) 0.5 mg Q3H PRN IV 09/10/17 21:45 09/24/17 21:44 09/16/17 05:26 0.5 MG Ondansetron HCl (Zofran Inj) 4 mg Q6H PRN IV 09/10/17 21:45 10/10/17 21:44 09/18/17 08:42 4 MG Aspirin (Ecotrin Tab) 81 mg QAM PO 09/11/17 09:00 10/11/17 08:59 09/18/17 08:33 81 MG Docusate Sodium (coLACE CAP) 100 mg BID PRN PO 09/10/17 21:45 10/10/17 21:44 Escitalopram Oxalate (Lexapro Tab) 15 mg QAM PO 09/11/17 09:00 10/11/17 08:59 09/18/17 08:32 15 MG Gabapentin (Neurontin Cap) 400 mg BID PO 09/11/17 09:00 10/11/17 08:59 09/18/17 08:33 400 MG Lorazepam (Ativan Tab) 0.5 mg Q6H PRN PO 09/10/17 21:45 10/10/17 21:44 09/16/17 19:14 0.5 MG Mirtazapine (Remeron Tab) 30 mg HS PO 09/11/17 21:00 10/11/17 20:59 09/17/17 20:32 30 MG Ranitidine HCl (zANTac TAB) 75 mg BID PO 09/11/17 09:00 10/11/17 08:59 09/18/17 08:33 75 MG Ropinirole HCl (Requip Tab) 1 mg HS PO 09/11/17 21:00 10/11/17 20:59 10/26/17 20:32 1 MG Tramadol HCl (Ultram Tab) 50 mg Q4H PRN PO 09/10/17 21:45 10/10/17 21:44 09/18/17 08:42 50 MG Trazodone HCl (Desyrel Tab) 50 mg HS PO 09/11/17 21:00 10/11/17 20:59 09/17/17 20:32 50 MG Budesonide (Pulmicort Respules 0.5MG/ 2ML Neb Soln) 0.5 mg BID PRN INH 09/10/17 21:45 10/10/17 21:44 Pantoprazole Sodium (Protonix Tab) 40 mg QAM PO 09/11/17 09:00 10/11/17 08:59 09/18/17 08:32 40 MG Heparin Sodium (Porcine) (Heparin 100 Unit/ml 5ml Flush) 5 ml PRN PRN IV 09/10/17 23:45 10/10/17 23:44 09/13/17 05:21 5 ML Insulin Aspart (novoLOG ASPART) SLIDING SCALE If C... ACHS SC 09/12/17 11:00 10/12/17 10:59 09/18/17 08:55 5 UNITS Atorvastatin Calcium (Lipitor Tab) 10 mg QPM PO 09/12/17 21:00 10/12/17 20:59 09/17/17 20:34 10 MG Albuterol/ Ipratropium (Duoneb) 3 ml Q4H PRN INH 09/12/17 19:00 10/12/17 18:59 09/17/17 15:37 3 ML Losartan Potassium (coZAAR TAB) 100 mg QAM PO 09/13/17 09:00 10/13/17 08:59 09/18/17 08:32 100 MG Magnesium Oxide (Mag-Ox Tab) 400 mg QAM PO 09/13/17 09:00 10/13/17 08:59 09/18/17 08:35 400 MG Amylase/Lipase/ Protease (Pancreaze (Lipase 4,200U) Cap) 1 cap QID PO 09/12/17 21:00 10/12/17 20:59 09/18/17 08:34 1 CAP Insulin Glargine (Lantus Solostar Pen) 25 units BID SC 09/14/17 09:00 10/14/17 08:59 09/18/17 08:55 25 UNITS Amlodipine Besylate (Norvasc Tab) 10 mg QAM PO 09/16/17 09:00 10/11/17 08:59 09/18/17 08:34 10 MG Ciprofloxacin/ Dextrose 400 mg/ Prmx 200 ml @ 100 mls/hr Q12 IV 09/16/17 21:00 09/19/17 20:59 09/18/17 08:35 100 MLS/HR Polyethylene (Miralax Powder Packet) 17 gm DAILY PO 09/18/17 09:00 10/18/17 08:59 09/18/17 08:34 17 GM Menthol (Nice Chanelle) 1 chanelle PRN PRN PO 09/18/17 05:15 10/18/17 05:14 Phenol (Chloraseptic 1.4% [place]) 1 sprays QID PRN MT 09/18/17 06:00 10/18/17 05:59 09/18/17 06:22 1 SPRAYS Dicyclomine HCl (Bentyl Cap) 10 mg TID PRN PO 09/18/17 14:00 10/18/17 13:59 Objective Vital Signs Date Time Temp Pulse Resp B/P (MAP) Pulse Ox O2 Delivery O2 Flow Rate FiO2 09/18/17 10:04 69 16 171/81 (111) 92 Room Air 09/18/17 08:00 Room Air 09/18/17 06:50 36.6 67 16 174/76 (108) 90 Room Air 09/18/17 00:00 Room Air 09/17/17 23:23 36.6 73 20 164/80 (108) 95 Room Air 09/17/17 15:48 96 Room Air 09/17/17 15:40 63 22 96 Room Air 09/17/17 15:27 36.3 59 18 136/80 (98) 96 Room Air Physical Exam General Appearance: no apparent distress Respiratory/Chest: no respiratory distress, no accessory muscle use, + wheezing (end expiratory wheezing) Abdomen: soft, + tenderness Extremities: normal inspection, no pedal edema Neurologic/Psychiatric: no motor/sensory deficits, alert, normal mood/affect Laboratory Results Last 24 Hours Test 09/17/17 11:24 09/17/17 16:11 09/17/17 20:22 09/18/17 05:24 Bedside Glucose 153 mg/dl 136 mg/dl 139 mg/dl White Blood Count 9.47 K/uL Red Blood Count 3.59 M/uL Hemoglobin 11.2 g/dL Hematocrit 32.3 % Mean Corpuscular Volume 90.0 fL Mean Corpuscular Hemoglobin 31.2 pg Mean Corpuscular Hemoglobin Concent 34.7 g/dl RDW Standard Deviation 45.4 fL RDW Coefficient of Variation 13.8 % Platelet Count 194 K/uL Mean Platelet Volume 9.4 fL Sodium Level 145 mmol/L Potassium Level 3.6 mmol/L Chloride Level 113 mmol/L Carbon Dioxide Level 25 mmol/L Anion Gap 7.0 mmol/L Blood Urea Nitrogen 11 mg/dl Creatinine 1.19 mg/dl Est Creatinine Clear Calc Drug Dose 35.3 ml/min Estimated GFR () 51.0 Estimated GFR (Non- 44.0 BUN/Creatinine Ratio 8.9 Random Glucose 176 mg/dl Calcium Level 8.2 mg/dl Magnesium Level 1.7 mg/dl Lipase 1731 U/L Test 09/18/17 07:34 Bedside Glucose 160 mg/dl Assessment and Plan This is a 77 year old female with a PMH of insulin dependent DM2, 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 and IPMN, hx of CVA as per records, HTN, HLD presents with acute pancreatitis Acute, Recurrent Pancreatitis 09/18 s/p ERCP advanced diet Bentyl added Cipro x5 days total outpatient PCP and GI follow-up s/p ERCP doing better today after stenting on clears, will await GI recommendation regarding advancing diet IVFs monitor lipase 09/16 s/p ERCP and pancreatic duct stent placement +confused - possibly secondary to anesthesia will monitor overnight; check labs in AM, check lipase in AM further management as per GI 09/15 secondary to possible pancreatic divisum and possible IPMN currently on IVFs and clears lipase initially >900 and now down to wnl plan for an EUS and ERCP in AM (09/16) NPO after midnight appreciate GI input Acute Kidney Injury superimposed on CKD stage 3 due to nausea/vomiting secondary to acute pancreatitis creatinine initial about 1.33 creat now down <1, at baseline continue IVFs + clears HTN - uncontrolled 09/18 stopped IVFs Norvasc increased continue Cozaar metoprolol extra dose of hydralazine and chlorthalidone given 09/17 gave an extra dose of hydralazine continue Norvasc continue Cozaar Wheezing underlying COPD? will try nebs for now and monitor may need to d/c fluids and check CXR if persistent Insulin Dependent DM2 monitor BSGs sliding scale + Lantus monitor due to clears and NPO status DVT ppx subq heparin FULL CODE
[2017-09-18] MEDS ORDERED: PANT40TA PO (10:57)
[2017-09-18] MEDS ORDERED: BNT10 PO (10:57)
[2017-09-18] MEDS ORDERED: CIPR-255 PO (10:57)
[2017-09-18] MEDS ORDERED: HYG25 PO (10:57)
[2017-09-18] MEDS ORDERED: AMLO-114 PO (10:57)
--- NOTE | 2017-09-18 11:01 | Discharge Instructions ---
Discharge Instructions Date of Service Sep 18, 2017. Admission Reason for Admission: Pancreatitis Discharge Discharge Diagnosis / Problem: Acute, Recurrent Pancreatitis Discharge Goals Goal(s): Decrease discomfort, Improve function, Diagnostic testing, Therapeutic intervention Activity Recommendations Activity Limitations: resume your previous activity . Instructions / Follow-Up Instructions / Follow-Up Please follow-up with Dr. Jefferson on September 21 at 1:25PM * You will be discharged with Cipro (antibiotic) for three days * You will be discharged with Bentyl - use this three times a day as needed for pain/abdominal cramping * Your dose of Norvasc (blood pressure medication) is increased to 10mg daily * We have added Chlorthalidone (a blood pressure medication) * You will need a repeat EUS/ERCP in 6-8 weeks * Your primary care doctor should recheck your blood pressure in the office and adjust medications accordingly Current Hospital Diet Patient's current hospital diet: Diabetes Type 2 Diet, Low Fat Diet Discharge Diet Recommended Diet: Diabetes Type 2 Diet, Low Fat Diet Procedures Procedures Performed: Endoscopic Retrograde Cholangiopancreatogram; Upper Endoscopic Ultrasonography; Esophagogastroduodenoscopy; Stent Placement Pending Studies Studies pending at discharge: no Laboratory Results Hemoglobin A1c Test 08/26/17 05:17 Range/Units Estimated Average Glucose 266 mg/dl Hemoglobin A1c 10.9 H 4.5-5.6 % Medical Emergencies . Who to Call and When: Medical Emergencies: If at any time you feel your situation is an emergency, please call 911 immediately. . Non-Emergent Contact Non-Emergency issues call your: Primary Care Provider . . "Provider Documentation" section prepared by Daquan Abdul. . VTE Core Measure Inpt VTE Proph given/why not?: Unfractionated heparin PAYAM, T.EShakila Hinojosa, SCD 's
--- NOTE | 2017-09-18 11:16 | Discharge Summary ---
Discharge Summary Date of Service Sep 18, 2017. Discharge Summary Admission Date: Sep 10, 2017 at 20:51 Discharge Date: Sep 18, 2017 Discharge Disposition: Home Principal Diagnosis: Acute, Recurrent Pancreatitis Pancreatic Divisum IPMN Uncontrolled HTN Insulin Dependent DM2 Medication Reconciliation New Medications: Chlorthalidone (Chlorthalidone) 25 Mg Tab 25 MG PO DAILY for 30 Days, #30 TABS Ciprofloxacin Hcl (Cipro) 500 Mg Tab 500 MG PO BID for 3 Days, #6 TAB Dicyclomine HCl (Dicyclomine HCl) 10 Mg Cap 10 MG PO TID PRN for Pain for 7 Days, #21 TABS Pantoprazole Sodium (Protonix) 40 Mg Tab 40 MG PO DAILY, #30 TAB Changed Medications: Amlodipine (Norvasc) 10 Mg Tab 10 MG PO DAILY for 30 Days, #30 TAB (Changed from: Amlodipine (Norvasc) 5 Mg Tab 5 Mg PO QAM) Continued Medications: Aspirin (Aspirin) 81 Mg Tab 81 MG PO QAM, 3 Refills Atorvastatin (Atorvastatin Calcium) 10 Mg Tab 10 MG PO QPM Budesonide (Inhalation) (Pulmicort) 1 Mg/2 Ml Alisson 0.5 MG INH BID PRN for SOB/Wheezing Clopidogrel (Plavix) 75 Mg Tab 75 MG PO QAM, TAB Docusate Sodium (Colace) 100 Mg Cap 100 MG PO BID PRN for Constipation Escitalopram (Lexapro) 10 Mg Tab 10 MG PO QAM, TAB Escitalopram Oxalate (Lexapro) 5 Mg Tab 5 MG PO QAM, TAB Gabapentin (Neurontin) 400 Mg Cap 400 MG PO BID, CAP AT BREAKFAST AND AT BEDTIME Insulin Aspart (Novolog) 100 Units/Ml Inj SQ ACHS for SLIDING SCALE Insulin Isophan/Regular (Novolin 70/30) Susp 85 UNITS SC BID, BTL Ipratropium-Albuterol (Duoneb) 3 Ml Nebu 1 TREATMENT INH Q4H PRN for SOB/Wheezing, INHA Lorazepam (Ativan) 0.5 Mg Tab 0.5 MG PO Q6H PRN for Anxiety, TAB Losartan Potassium (Cozaar) 50 Mg Tab 100 MG PO QAM for 30 Days, #60 TAB Magnesium Oxide (Mag-Ox) 400 Mg Tab 400 MG PO QAM, TAB Metoprolol Tartrate (Lopressor) (Lopressor) 50 Mg Tab 50 MG PO BID, TAB Mirtazapine (Remeron) 30 Mg Tab 30 MG PO HS, #30 Omeprazole (Prilosec) 40 Mg Cap 40 MG PO QAM, CAP Pancrelipase (Lipase-Protease- (Creon) 1 Cap Cap 6000 UNITS PO QID Ranitidine (Zantac) 150 Mg Tab 75 MG PO BID, TAB Ropinirole Hydrochloride (Requip) 1 Mg Tab 1 MG PO HS for 30 Days, TAB 2 Refills Tramadol (Ultram) 50 Mg Tab 50 MG PO Q6 PRN for Pain, TAB Trazodone Hcl (Trazodone) 50 Mg Tab 50 MG PO HS, TAB Admission Information Physical Exam (per Admitting): DATE OF ADMISSION: 09/10/2017 CHIEF COMPLAINT: Abdominal pain. HISTORY OF PRESENT ILLNESS: History obtained from patient and records. Medical history is significant for recurrent pancreatitis, hypertension, hyperlipidemia, DM2 insulin requiring, mood disorder, CVA, history of pancreatic divisum, IPMN as per records. past tobacco abuse. Recent confinement last week for recurrent pancreatitis. Seen by GI. Plan for outpatient ERCP on 09/18/2017. Patient's home aspirin and Plavix had been on hold for contemplated procedure. Few days history of achy burning back pain going to the front with nausea similar to pancreatitis episode in the past. No diarrhea. No fever, no chills. Denies fatty food intake, alcohol intake. Seen by PCP yesterday. Outpatient lipase 200s. Patient sent by PCP to the Emergency Room due to persistent symptoms. MEDICAL HISTORY: As above with SURGERIES: She has had ankle surgery, tubal ligation, cataract surgery, and cholecystectomy. HOME MEDICATIONS: Include Norvasc, Pulmicort, Plavix and ASA (currently on hold for contemplated ERCP), Colace, Lexapro, Neurontin, DuoNebs, NovoLog, Ativan, Remeron, mag oxide, Lopressor, Prilosec, Creon, Requip, Zantac, atorvastatin. ALLERGIES: ALLERGIC TO LATEX, CODEINE, BENADRYL, HYDROXYZINE, MORPHINE, PREDNISONE, TETANUS TOXOID, BACTRIM, ALPRAZOLAM, LORATADINE, METFORMIN, SIMVASTATIN, DYE. FAMILY HISTORY: Hypertension and heart disease. PERSONAL AND SOCIAL HISTORY: Past tobacco abuse, no EtOH intake. 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 REVIEW OF SYSTEMS: As per HPI. All other ROS negative. PHYSICAL EXAMINATION: VITAL SIGNS: Blood pressure was noted to be 170/90, pulse rate 83, RR 18, T 37, sats 97% on room air. SKIN: Normal color, warm to touch. HEENT: [place] palpebral conjunctivae. mild Ptosis left chronic, dry buccal mucosa. NECK: Short neck. No tenderness. LUNGS: Decreased breath sounds. No anterior chest wall tenderness. CV: Regular rate and rhythm, palpable LE pulses. ABDOMEN: Some distention, epigastric tenderness. EXTREMITIES: Minimal LE edema, no tenderness, no gross deformity. NEUROLOGIC: No gross focality, coherent. LABS: Hemoglobin 13, hematocrit 37, white blood cell count is 10, platelets 171. Sodium 134, potassium 4.1, chloride 103, CO2 of 22, creatinine 1.33. Glucose 439 Lipase was noted to be 944. Normal anion gap Hemoglobin A1c from August 2017 was 10.6. UA ketones ASSESSMENT: 1. Recurrent pancreatitis. hx pancreatic divisum as per records 2. Hypertension, elevated Secondary to pain question compliance, 3. ARF secondary to clinical dehydration secondary to illness 4. DM2, insulin requiring, suboptimal control as of recent inpatient hemoglobin A1c 5. history of cerebrovascular accident as per records 6. past tobacco abuse. PLAN: GMF analgesia, bowel rest, IV fluids Follow lipase GI consult RE recurrent pancreatitis (Patient known to Dr. Mcfadden). Monitor creatinine response to IV fluids, hold home ARB until creatinine at baseline. Basal insulin adjusted for n.p.o. status, ISS BG goal 140-180 DVT prophylaxis, Heparin subQ. Full code. Hospital Course This is a 77 year old female with a PMH of insulin dependent DM2, 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 and IPMN, hx of CVA as per records, HTN, HLD presents with acute pancreatitis Prior to discharge: getting BP controlled and having BM Acute, Recurrent Pancreatitis 09/18 s/p ERCP advanced diet Bentyl added Cipro x5 days total outpatient PCP and GI follow-up s/p ERCP doing better today after stenting on clears, will await GI recommendation regarding advancing diet IVFs monitor lipase 09/16 s/p ERCP and pancreatic duct stent placement +confused - possibly secondary to anesthesia will monitor overnight; check labs in AM, check lipase in AM further management as per GI 09/15 secondary to possible pancreatic divisum and possible IPMN currently on IVFs and clears lipase initially >900 and now down to wnl plan for an EUS and ERCP in AM (09/16) NPO after midnight appreciate GI input Acute Kidney Injury superimposed on CKD stage 3 due to nausea/vomiting secondary to acute pancreatitis creatinine initial about 1.33 creat now down <1, at baseline continue IVFs + clears HTN - uncontrolled 09/18 stopped IVFs Norvasc increased continue Cozaar metoprolol extra dose of hydralazine and chlorthalidone given 09/17 gave an extra dose of hydralazine continue Norvasc continue Cozaar Wheezing underlying COPD? will try nebs for now and monitor may need to d/c fluids and check CXR if persistent Insulin Dependent DM2 monitor BSGs sliding scale + Lantus monitor due to clears and NPO status DVT ppx subq heparin FULL CODE Total time spent on discharge = 50 minutes This includes examination of the patient, discharge planning, medication reconciliation, and communication with other providers. Discharge Instructions Please follow-up with Dr. Jefferson on September 21 at 1:25PM * You will be discharged with Cipro (antibiotic) for three days * You will be discharged with Bentyl - use this three times a day as needed for pain/abdominal cramping * Your dose of Norvasc (blood pressure medication) is increased to 10mg daily * We have added Chlorthalidone (a blood pressure medication) * You will need a repeat EUS/ERCP in 6-8 weeks * Your primary care doctor should recheck your blood pressure in the office and adjust medications accordingly
[2017-09-18 11:23] VITALS: BP_SYST 149; BP_SYST 171; BP_DIAS 74; BP_DIAS 81; PULSE 69; TEMP 36.6; O2SAT 92
[2017-09-18] MEDS ORDERED: MAGNESIUM HYDROXIDE SUSP 30 ML UDC PO ONE (11:30)
[2017-09-18] MEDS ORDERED: CLONIDINE HCL 0.1 MG TAB PO ONE (12:15)
[2017-09-18 12:52] VITALS: BP 177/84; PULSE 69
[2017-09-18] MEDS ORDERED: DICYCLOMINE HCL 10 MG CAP PO PRN (14:00)
== END 2017-09-18 13:53 | disposition home health service (06) | DRG 439 ==
LOC: C.EDB 15:49 → C.MS2W 20:51 → ENRESERV 21:26
PROVIDERS: ADMIT Internal Medicine; ATTEND Family Medicine
PROC: 0DB68ZX Excision of Stomach, Via Natural or Artificial Opening Endoscopic, Diagnostic (ICD-10-PCS; principal; 2017-09-16 10:30)
PROC: 0F7D8DZ Dilation of Pancreatic Duct with Intraluminal Device, Via Natural or Artificial Opening Endoscopic (ICD-10-PCS; principal; 2017-09-16 10:30)
DX: K85.90 Acute pancreatitis without necrosis or infection, unspecified (principal); N17.9 Acute kidney failure, unspecified; K86.1 Other chronic pancreatitis; K29.50 Unspecified chronic gastritis without bleeding; N18.3 Chronic kidney disease, stage 3 (moderate); I12.9 Hypertensive chronic kidney disease with stage 1 through stage 4 chronic kidney disease, or unspecified chronic kidney disease; E11.22 Type 2 diabetes mellitus with diabetic chronic kidney disease; Z79.02 Long term (current) use of antithrombotics/antiplatelets; Z79.4 Long term (current) use of insulin; Z79.82 Long term (current) use of aspirin; Z79.899 Other long term (current) drug therapy; Z86.73 Personal history of transient ischemic attack (TIA), and cerebral infarction without residual deficits

== ENCOUNTER 2017-10-05 13:23 | Inpatient (IN) | payer OTHER, MEDICARE ==
[~2017-10-05] VITALS: Ht 152.4 cm; Wt 75.6 kg
[~2017-10-05 13:23] MED LIST changes: -AMLO-110 PO; +AMLO-114 PO; +BNT10 PO; +CIPR-255 PO; +HYG25 PO; -PRT/20 PO
[2017-10-05] MEDS ORDERED: PIPERACILLIN/TAZOBACTAM 4.5 GM/100ML D5W IV STA (13:49)
[2017-10-05] MEDS ORDERED: ACETAMINOPHEN 500 MG TAB PO STA (13:49)
[2017-10-05] MEDS ORDERED: ALBUT/IPRATROP 3MG/0.5MG NEB 3 ML VIAL INH STA (13:53)
--- NOTE | 2017-10-05 14:02 | EMERGENCY ROOM VISIT NOTE ---
History Report prepared by Coral: Joshua Packer Under the Supervision of: Dr. Ramez Stubbs M.D. First contact with patient: 13:47 Chief Complaint: HYPERTENSION Stated Complaint: HIGH BLOOD PRESSURE History of Present Illness The patient is a 77 year old female who presents to the Emergency Room with complaints of a persistent cough beginning last night. She states that her cough is dry and non-productive. She has a history of COPD and pancreatitis. The patient was found to be febrile upon arrival to the ED. The patient also complains of chills and SOB. She notes that her blood pressure and blood sugar has been running high since last night. Her blood sugar was 390 this morning. The patient denies urinary symptoms, vomiting, or diarrhea. She has taken all of her medications as prescribed. She is no on supplemental oxygen at home. The patient has no known sick contacts. She had her flu shot this year. Source of History: patient Onset: Last night Quality: other (cough) Timing: other (persistent) Associated Symptoms: + fevers, + chills, + SOB, No vomiting, No diarrhea, No urinary symptoms Review of Systems See HPI for pertinent positives & negatives. A total of 10 systems reviewed and were otherwise negative. 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 (12) Depression (13) Diabetes mellitus type 2 (14) Diabetic neuropathy (15) DKA (diabetic ketoacidoses) (16) Dyslipidemia (17) Esophageal dysmotility (18) Fatty liver (19) Fever (20) Gastroparesis (21) Giant cell arteritis (22) History of sleep apnea (23) Hypertensive urgency (24) Insomnia (25) Ischemic stroke (26) Pancreatic divisum (27) Sciatica (28) SOB (shortness of breath) (29) TIA (transient ischemic attack) Surgical Problems: (1) cataract surgery (2) H/O esophagogastroduodenoscopy (3) History of - tubal ligation (4) History of cholecystectomy (5) S/P ERCP (6) S/P ERCP (7) S/p fixation of left ankle fracture Family History Diabetes mellitus GRANDMOTHER MOTHER FH: Parkinson's disease Hypertension Stroke GRANDFATHER Social History Smoking Status: Never Smoker Alcohol Use: none Drug Use: none Marital Status: Housing Status: lives alone Occupation Status: retired Current/Historical Medications Scheduled Amlodipine (Norvasc), 10 MG PO DAILY Aspirin (Aspirin), 81 MG PO QAM Atorvastatin (Atorvastatin Calcium), 10 MG PO QPM Chlorthalidone (Chlorthalidone), 25 MG PO DAILY Clopidogrel (Plavix), 75 MG PO QAM Escitalopram (Lexapro), 10 MG PO QAM Escitalopram Oxalate (Lexapro), 5 MG PO QAM Gabapentin (Neurontin), 400 MG PO BID Insulin Aspart (Novolog), SQ ACHS Insulin Isophan/Regular (Novolin 70/30), 80 UNITS SC BID Losartan Potassium (Cozaar), 100 MG PO QAM Magnesium Oxide (Mag-Ox), 400 MG PO QAM Metoprolol Tartrate (Lopressor) (Lopressor), 50 MG PO BID Mirtazapine (Remeron), 30 MG PO HS Omeprazole (Prilosec), 40 MG PO QAM Pancrelipase (Lipase-Protease- (Creon), 6,000 UNITS PO QID Ranitidine (Zantac), 75 MG PO BID Ropinirole Hydrochloride (Requip), 1 MG PO HS Trazodone Hcl (Trazodone), 50 MG PO HS Scheduled PRN Budesonide (Inhalation) (Pulmicort), 0.5 MG INH BID PRN for SOB/Wheezing Dicyclomine HCl (Dicyclomine HCl), 10 MG PO TID PRN for Pain Docusate Sodium (Colace), 100 MG PO BID PRN for Constipation Ipratropium-Albuterol (Duoneb), 1 TREATMENT INH Q4H PRN for SOB/Wheezing Lorazepam (Ativan), 0.5 MG PO Q6H PRN for Anxiety Allergies Coded Allergies: Iodinated Diagnostic Agents (Verified Allergy, Severe, RASH TO IVP DYE, NAUSEA, FAINTING, COUGHING, GAGGING, HEADACH, 10/05/17) Sulfa Antibiotics (Verified Allergy, Severe, HIVES, FACIAL AND ARM SWELLING, 10/05/17) Cerivastatin (Verified Allergy, Intermediate, HIVES, 10/05/17) Codeine (Verified Allergy, Intermediate, "PRICKLY RASH", 10/05/17) Hydroxyzine (Verified Allergy, Intermediate, N/V, 10/05/17) Latex1 -Allergic Contact Dermititis (Verified Allergy, Intermediate, DERMATITIS-PT TOLERATED A LATEX CATHETER 03/26/08, 10/05/17) Diphenhydramine (Verified Allergy, Mild, RASH; SLEEPINESS WITH "PHARBEDRYL ", 10/05/17) Loratadine (Verified Allergy, Mild, HIVES, 10/05/17) Sulfamethoxazole w/Trimethoprim (Verified Allergy, Mild, RASH, 10/05/17) Prednisone (Unverified Allergy, Unknown, unknown, 10/05/17) Tetanus Toxoid (Verified Adverse Reaction, Intermediate, SWELLING AT INJECTION SITE, 10/05/17) Alprazolam (Verified Adverse Reaction, Unknown, "SLEEPY STUPER", 10/05/17) Metformin (Verified Adverse Reaction, Unknown, DIARRHEA, 10/05/17) Morphine (Verified Adverse Reaction, Unknown, VOMITING, 10/05/17) Simvastatin (Verified Adverse Reaction, Unknown, COUGH, "DISCOMFORT", ) Physical Exam Vital Signs Date Time Temp Pulse Resp B/P (MAP) Pulse Ox O2 Delivery O2 Flow Rate FiO2 10/05/17 15:09 37.2 101 24 146/66 96 Room Air 10/05/17 13:48 105 10/05/17 13:43 102 173/84 97 Room Air 10/05/17 13:26 38.2 114 22 205/91 97 Room Air Physical Exam GENERAL: Patient is in no acute distress. HEENT: No acute trauma, normocephalic atraumatic, mucous membranes moist, no nasal congestion, no scleral icterus. No throat erythema or exudate. NECK: No stridor, no adenopathy, no meningismus, trachea is midline. LUNGS: A few scattered wheezes bilaterally, no rhonchi, breath sounds equal. Persistent dry cough noted. HEART: Without murmurs gallops or rubs, regular rate and rhythm. ABDOMEN: Soft, nontender, bowel sounds positive, no hernias, no peritonitis. EXTREMITIES: No cyanosis or edema, full range of motion of all the joints without pain or difficulty, no signs for acute trauma. NEUROLOGIC: Oriented x 3, no acute motor or sensory deficits, no focal weakness. SKIN: No rash, no jaundice, no diaphoresis. Medical Decision & Procedures ER Provider Diagnostic Interpretation: X-ray results as stated below per interpretation by me and the radiologist: CHEST ONE VIEW PORTABLE FINDINGS: The lungs are clear. Cardiac silhouette is normal in size. No pleural effusions. No pneumothorax. Right jugular catheter terminates in the SVC. IMPRESSION: No significant change compared to the prior study. No acute process. Electronically signed by: Rogerio Parker M.D. 10/05/2017 2:10 PM Laboratory Results 10/05/17 14:15 Red Blood Count 4.03, Mean Corpuscular Volume 88.6, Mean Corpuscular Hemoglobin 30.8, Mean Corpuscular Hemoglobin Concent 34.7, Mean Platelet Volume 9.3, Neutrophils (%) (Auto) 66.0, Lymphocytes (%) (Auto) 20.4, Monocytes (%) (Auto) 6.8, Eosinophils (%) (Auto) 5.9, Basophils (%) (Auto) 0.5, Neutrophils # (Auto) 8.79, Lymphocytes # (Auto) 2.71, Monocytes # (Auto) 0.91, Eosinophils # (Auto) 0.78, Basophils # (Auto) 0.06 10/05/17 14:15 Test 10/05/17 14:05 10/05/17 14:15 10/05/17 14:19 10/05/17 15:33 Influenza Type A Antigen Neg for Influ A (NEG) Influenza Type B Antigen Neg for Influ B (NEG) White Blood Count 13.30 K/uL (4.8-10.8) Red Blood Count 4.03 M/uL (4.2-5.4) Hemoglobin 12.4 g/dL (12.0-16.0) Hematocrit 35.7 % (37-47) Mean Corpuscular Volume 88.6 fL (80-100) Mean Corpuscular Hemoglobin 30.8 pg (25-34) Mean Corpuscular Hemoglobin Concent 34.7 g/dl (32-36) Platelet Count 193 K/uL (130-400) Mean Platelet Volume 9.3 fL (7.4-10.4) Neutrophils (%) (Auto) 66.0 % Lymphocytes (%) (Auto) 20.4 % Monocytes (%) (Auto) 6.8 % Eosinophils (%) (Auto) 5.9 % Basophils (%) (Auto) 0.5 % Neutrophils # (Auto) 8.79 K/uL (1.4-6.5) Lymphocytes # (Auto) 2.71 K/uL (1.2-3.4) Monocytes # (Auto) 0.91 K/uL (0.11-0.59) Eosinophils # (Auto) 0.78 K/uL (0-0.5) Basophils # (Auto) 0.06 K/uL (0-0.2) RDW Standard Deviation 43.4 fL (36.4-46.3) RDW Coefficient of Variation 13.4 % (11.5-14.5) Immature Granulocyte % (Auto) 0.4 % Immature Granulocyte # (Auto) 0.05 K/uL (0.00-0.02) Prothrombin Time 11.2 SECONDS (9.0-12.0) Prothromb Time International Ratio 1.0 (0.9-1.1) Activated Partial Thromboplast Time 24.2 SECONDS (21.0-31.0) Partial Thromboplastin Ratio 0.9 Anion Gap 13.0 mmol/L (3-11) Est Creatinine Clear Calc Drug Dose 35.9 ml/min Estimated GFR () 52.1 Estimated GFR (Non- 44.9 BUN/Creatinine Ratio 13.5 (10-20) Calcium Level 9.2 mg/dl (8.5-10.1) Magnesium Level 1.8 mg/dl (1.8-2.4) Total Bilirubin 0.4 mg/dl (0.2-1) Aspartate Amino Transf (AST/SGOT) 52 U/L (15-37) Alanine Aminotransferase (ALT/SGPT) 49 U/L (12-78) Alkaline Phosphatase 117 U/L (45-117) Total Protein 6.9 gm/dl (6.4-8.2) Albumin 3.3 gm/dl (3.4-5.0) Globulin 3.6 gm/dl (2.5-4.0) Albumin/Globulin Ratio 0.9 (0.9-2) Lipase 388 U/L (73-393) Bedside Lactic Acid Venous 2.82 mmol/L (0.90-1.70) Bedside Glucose 244 mg/dl (70-90) Test 10/05/17 16:14 Lactic Acid Level 3.7 mmol/L (0.4-2.0) Laboratory results reviewed by me. Medications Administered Medications (Trade) Dose Ordered Sig/Rosetta Route Start Time Stop Time Status Last Admin Dose Admin Piperacillin Sod/ Tazobactam Sod (Zosyn Iv) 4.5 gm ONE STAT IV 10/05/17 13:49 10/05/17 13:53 DC 10/05/17 14:19 4.5 GM Acetaminophen (Tylenol Tab) 1,000 mg NOW STAT PO 10/05/17 13:49 10/05/17 13:53 DC 10/05/17 14:18 1,000 MG Albuterol/ Ipratropium (Duoneb) 3 ml NOW STAT INH 10/05/17 13:53 10/05/17 13:55 DC 10/05/17 14:18 3 ML Ibuprofen (Motrin Tab) 600 mg NOW STAT PO 10/05/17 15:23 10/05/17 15:24 DC 10/05/17 15:28 600 MG ECG Indication: other (cough) Rate (beats per minute): 105 Rhythm: sinus tachycardia Findings: no acute ischemic change, no ectopy ED Course 1348: The patient was evaluated in room C2B. A complete history and physical exam was performed. 1349: Ordered Tylenol Tab 1000 mg PO, Zosyn 4.5 gm IV. 1353: Ordered DuoNeb 3 mL INH. 1523: Ordered Motrin Tab 600 mg PO. 1530: Upon reexamination the patient is resting comfortably. I discussed results and treatment plan with the patient. She verbalizes agreement and understanding. The patient will be evaluated for further management. Medical Decision The patient is a 77 year old female who presents to the ED with complaints of cough. Differential diagnoses considered include sepsis, bacteremia, pneumonia , bronchitis, UTI, dehydration, electrolyte imbalance, and CHF. There is a mild leukocytosis, this could be consistent with infection. No concerning anemia. No significant electrolyte abnormalities, kidney failure or hepatitis. Lactic acid level is elevated-this is concerning for sepsis and/or dehydration. Blood cultures are pending. There is no coagulopathy. No evidence for pancreatitis. Influenza testing is negative. Chest film does not show pneumonia or CHF. Patient presents with symptoms concerning for pneumonia. Workup suggest SIRS. Acute bronchitis seems likely. With the tachycardia, the leukocytosis, the fever and elevated lactic acid level , I do think a hospital stay is warranted. The patient was given a DuoNeb, she received IV Zosyn as antibiotic coverage. She received oral Tylenol and oral Motrin for headache and fever. I spoke to the patient and case management. The on-call hospitalist was consulted. The patient is feeling somewhat improved since being treated here in the ER. Medication Reconcilliation Current Medication List: was personally reviewed by me Blood Pressure Screening Patient's blood pressure: Elevated blood pressure Blood pressure disposition: Referred to PCP Consults Time Called: 152 Consulting Physician: Cyndy Thurston Returned Call: [phone] Discussed the patient's case. The patient will be evaluated for further management. Impression Primary Impression: SIRS (systemic inflammatory response syndrome) Additional Impressions: Acute bronchitis COPD exacerbation Critical Care I have personally spent greater than 30 minutes of critical care time in the direct management of this patient. This includes bedside care, interpretation of diagnostic studies and testing, discussion with consultants, the patient, and family members, and other required patient management activities. This 30 minutes is in excess of all separately billable procedures. Scribe Attestation The scribe's documentation has been prepared under my direction and personally reviewed by me in its entirety. I confirm that the note above accurately reflects all work, treatment, procedures, and medical decision making performed by me. Departure Information Dispostion Being Evaluated By Hospitalist Referrals Colleen Jefferson D.O. (PCP) Patient Instructions My [facility] Problem Qualifiers
--- NOTE | 2017-10-05 14:11 | DIAGNOSTIC IMAGING REPORT ---
CHEST ONE VIEW PORTABLE HISTORY: Sepsis COMPARISON: None. FINDINGS: The lungs are clear. Cardiac silhouette is normal in size. No pleural effusions. No pneumothorax. Right jugular catheter terminates in the SVC. IMPRESSION: No significant change compared to the prior study. No acute process. Electronically signed by: Rogerio Parker M.D. 10/05/2017 2:10 PM Dictated Date/Time: 10/05/2017 2:09 PM
[2017-10-05 14:31] LABS: BASO % 0.5 %; BASO ABS # 0.06 K/uL (0-0.2); COMPLETE YES; EOS % 5.9 %; HEMATOCRIT 35.7 % (37-47); IG% 0.4 %; LYMPH % 20.4 %; LYMPH ABS # 2.71 K/uL (1.2-3.4); MEAN CELL VOLUME 88.6 fL (80-100); MEAN CORPUSCULAR HEMOGLOBIN 30.8 pg (25-34); MEAN CORPUSCULAR HGB CONC 34.7 g/dl (32-36); MEAN PLATELET VOLUME 9.3 fL (7.4-10.4); MONO % 6.8 %; PLATELET COUNT 193 K/uL (130-400); RED BLOOD COUNT 4.03 M/uL (4.2-5.4)
[2017-10-05 14:39] LABS: PARTIAL THROMBOPLASTIN RATIO 0.9; PROTHROMBIN TIME (PATIENT) 11.2 SECONDS (9.0-12.0)
[2017-10-05 14:50] LABS: BUN/CREATININE RATIO 13.5 (10-20); CALCIUM 9.2 mg/dl (8.5-10.1); CREATININE 1.17 mg/dl (0.60-1.20); MAGNESIUM 1.8 mg/dl (1.8-2.4); POTASSIUM 3.8 mmol/L (3.5-5.1)
[2017-10-05 14:53] LABS: ALB/GLOB RATIO 0.9 (0.9-2)
[2017-10-05] MEDS ORDERED: IBUPROFEN 600 MG TAB PO STA (15:23)
[2017-10-05] MEDS ORDERED: ACETAMINOPHEN 325 MG TAB PO PRN (16:15)
[2017-10-05] MEDS ORDERED: ONDANSETRON INJ 2 MG/ML 2 ML VIAL IV PRN (16:15)
[2017-10-05] MEDS ORDERED: KETOROLAC TROMETHAMINE 15 MG/ML VIAL IV. STA (16:23)
[2017-10-05] MEDS ORDERED: HYDROCODONE/HOMATROPINE SYRUP 5MG/1.5MG 5ML UDP PO PRN (16:30)
[2017-10-05] MEDS ORDERED: GLUCAGON FOR INJ 1 MG VIAL SQ PRN (16:45)
[2017-10-05] MEDS ORDERED: GLUCOSE 10 TABS/TUBE PO PRN (16:45)
[2017-10-05] MEDS ORDERED: DEXTROSE 50% 50 ML SYR IV PRN (16:45)
[2017-10-05] MEDS ORDERED: GLUCOSE 40% GEL 15 GM TUBE PO PRN (16:45)
[2017-10-05] MEDS ORDERED: SODIUM CHLORIDE 0.9% 1000ML 1,000 ML IV SCH (16:45)
[2017-10-05] MEDS ORDERED: LORAZEPAM 0.5 MG TAB PO PRN (17:15)
[2017-10-05] MEDS ORDERED: DICYCLOMINE HCL 10 MG CAP PO PRN (17:15)
[2017-10-05] MEDS ORDERED: DOCUSATE SODIUM 100 MG CAP PO PRN (17:15)
[2017-10-05] MEDS ORDERED: PIPERACILL/TAZOBAC CONSULT ACTIVE PRN (17:46)
[2017-10-05] MEDS ORDERED: PHARMACY GLYCEMIC MGMT CONSULT PRN (17:47)
--- NOTE | 2017-10-05 18:56 | History and Physical ---
History & Physical Date of Service Oct 05, 2017. History & Physical This is a 77 year old female with a PMH of insulin dependent DM2 with neuropathy , retinopathy, and nephropathy, CKD stage 3, hx. of CVA, HTN, hx. of recurrent pancreatitis (IPMN), hx. of asthma - presents with sudden onset cough, shortness of breath and fever. States she was in her usual state of health one day prior to arrival, but the night of the 10/04, she developed a cough, congestion and had fevers/chills. She had a bad cough throughout today and therefore decided it was best to come in to the ED for evaluation. On arrival, patient noted to have fever, tachycardia, leukocytosis. On exam, she is continuously coughing - a dry, hacking type cough. Denies chest pain, todd abdominal pain, nausea/vomiting/diarrhea VITALS: Last Vital Signs Documentation Date Time Temp Pulse Resp B/P (MAP) Pulse Ox O2 Delivery O2 Flow Rate FiO2 10/05/17 17:02 93 22 141/71 97 Room Air 10/05/17 15:09 37.2 GEN: +[id number] distress secondary to cough HEENT: NC/AT LUNGS: clear to auscultation bilaterally, +portacath in the R chest wall CVS: sinus tachycardia ABD: NT/ND, soft, normoactive bowel sounds EXT: no swelling, no edema/cyanosis NEURO: no focal deficits, CN II-XII in tact Acute, complicated bronchitis CXR shows no active disease she does meet SIRS criteria with fever, leukocytosis and tachycardia lactic acid is now 3.7 will add IVFs at 125mL/hr added Zosyn, which we can continue cultures pending Hycodan PRN for the cough check flu swab d-dimer checked and not elevated nebs as needed Recurrent Pancreatitis lipase is wnl, she has has multiple admission and multiple ERCPs in the past Insulin Dependent DM2 hold NPH start sliding scale insulin and Lantus 7 units BID Hx. of CVA continue Plavix, statin HTN continue home medications DVT ppx subq heparin FULL CODE
[2017-10-05] MEDS: ALBUT/IPRATROP 3MG/0.5MG NEB 3 ML VIAL INH SCH (19:15)
[2017-10-05 19:17] VITALS: PULSE 88; O2SAT 98
[2017-10-05] MEDS ORDERED: HYDROCODONE/HOMATROPINE SYRUP 5MG/1.5MG 5ML UDP PO STA (19:38)
[2017-10-05] MEDS ORDERED: KETOROLAC TROMETHAMINE 15 MG/ML VIAL ONE (19:52)
--- NOTE | 2017-10-05 19:52 | Pharmacy Progress Note ---
Glycemic: Assessment & Plan Date of Service Oct 05, 2017. Assessment & Plan Item Value Date Time Bedside Glucose 244 mg/dl H 10/05/17 1533 Random Glucose 221 mg/dl H 10/05/17 1415 ASSESSMENT: Pt well known to pharmacy glycemic service. Most recent ADM earlier this month. Will use insulin regimen similar to that ADM. PLAN: * Basal insulin: Lantus 35 units every 12 hours * Correctional Insulin: Novolog Correction per scale ACHS Goal Range: Low 120 mg/dL - High 150 mg/dL Correction Factor: 18 mg/dL/unit * Prandial insulin: Per carb ratio of 1 unit per 8 grams CHO consumed Pharmacy will continue to monitor patient daily and write orders per [facility] inpatient glycemic control protocol. Thanks. * Please note that the plan above was derived based on current level of insulin resistance and hospital stress. These recommendations are appropriate for inpatient admission only. Plan of care upon discharge will need to be reassessed to avoid potential outpatient hypo/hyperglycemia.
[2017-10-05 19:54] VITALS: BP 143/73; PULSE 90; TEMP 36.6; O2SAT 98
[2017-10-05 20:00] VITALS: BP 143/73; PULSE 90; TEMP 36.6; O2SAT 97; Ht 152.4 cm; Wt 75.6 kg
[2017-10-05] MEDS: BUDESONIDE 0.5 MG/2 ML VIAL (PULMICORT) INH SCH (20:00)
[2017-10-05] MEDS: PIPERACILL/TAZOBAC IV 3.375 GM in DEXTROSE 5% 100ML IV SCH (20:29)
[2017-10-05] MEDS: METOPROLOL TARTRATE 50 MG TAB PO SCH (20:42)
[2017-10-05] MEDS: ROPINIROLE HCL 1 MG TAB PO SCH (20:42)
[2017-10-05] MEDS: GABAPENTIN 400 MG CAP PO SCH (20:42)
[2017-10-05] MEDS: RANITIDINE HCL 150 MG TAB PO SCH (20:43)
[2017-10-05] MEDS: MIRTAZAPINE TAB 15 MG TAB PO SCH (20:43)
[2017-10-05] MEDS: PANCREAZE (LIPASE 4,200U) CAP PO SCH (20:43)
[2017-10-05] MEDS: ATORVASTATIN 10 MG TAB PO SCH (20:45)
[2017-10-05] MEDS: TRAZODONE HCL 50 MG TAB PO SCH (20:45)
[2017-10-05] MEDS: HEPARIN SOD 5000 UNIT/0.5 ML CARP SQ SCH (20:46)
[2017-10-05] MEDS ORDERED: INSULIN GLARGINE SOLOSTAR 100 UNITS/ML 3 ML PEN SC SCH (21:00)
--- NOTE | 2017-10-05 21:32 | History and Physical ---
History & Physical Date & Time of Service: Oct 05, 2017 at 16:51 Chief Complaint: High Blood Pressure Primary Care Physician: Colleen Jefferson D.O. History of Present Illness Source: patient Pt is 77y/o F with PMH asthma, anxiety, insulin dependent DM II, HTN, hx CVA, hx recurrent pancreatitis presented to ER with c/o cough, WALKER, SOB and fever x 1 day. Pt states yesterday started with tactile fever, chills, dry cough, wheezing , SOB, chest tightness. She tried using her duonebs and started using her Pulmicort neb without much relief. Pt does not use oxygen at home. Pt reports BS have been uncontrolled and running 400-500 and she was started on insulin NPH by PCP. States fasting BS this am was 326. Hx recent hospitalizations due to pancreatitis and had ERCP 08/2017. States still with some upper abdominal discomfort intermittently, but denies any worsening. Denies ill contacts. Denies N/V/D/C, dizziness, syncope, vision changes, neck pain, hemoptysis, orthopnea, palpitations, sore throat, choking, otalgia, rhinorrhea, paresthesias , weakness, extremity weakness, extremity edema, rashes, urinary symptoms. In ER Temp: 38.2, BP initially 205/91 down to 146/66, pulse initially 114 down to 101, Resp: 22-24, Pulse ox: 96% on RA. WBC: 13.3, Neut:8.8, POC lactic acid: 2.8, glucose:221, negative CXR. pending blood cultures given motrin 600mg and tylenol 1 gram. Duoneb treatment with some relief of SOB and relief of wheezing. 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 (9) Depression Status: Chronic (10) Diabetes mellitus type 2 Status: Chronic (11) Diabetic neuropathy Status: Chronic (12) DKA (diabetic ketoacidoses) Status: Chronic (13) Dyslipidemia Status: Chronic (14) Esophageal dysmotility Status: Chronic (15) Fatty liver Status: Chronic (16) Gastroparesis Status: Chronic (17) Giant cell arteritis Status: Resolved (18) History of sleep apnea Status: Chronic (19) Insomnia Status: Chronic (20) Ischemic stroke Status: Resolved (21) Pancreatic divisum Status: Chronic (22) Sciatica Status: Chronic (23) TIA (transient ischemic attack) Status: Resolved Surgical Problems: (1) cataract surgery Permanent Comment: Right Status: Chronic (2) H/O esophagogastroduodenoscopy Permanent Comment: EGD/EUS 11/01/14- gastritis, hiatal hernia, normal amuplla, fatty infiltration of liver. 3 mm by 10 mm cystic lesion seen in pancreatic head , most consistent with intraductal papillary mucinous neoplasm based on EUS from 2011 Status: Resolved (3) History of - tubal ligation Status: Chronic (4) History of cholecystectomy Status: Chronic (5) History of ERCP Permanent Comment: 09/16/17 - biliary sludge, pancreatic stricture, chronic pancreatitis, stent placed Status: Resolved (6) S/P ERCP Permanent Comment: 12/07/14- prior biliary endoscopic sphincterotomy appeared open. cholangiogram was normal. unable to cannulate pancreatic duct Status: Resolved (7) S/P ERCP Permanent Comment: 05/03/15- minor duct sphincterotomy and pancreatic duct stent placement Status: Resolved (8) S/p fixation of left ankle fracture Status: Chronic Family History Diabetes mellitus GRANDMOTHER MOTHER FH: Parkinson's disease Hypertension Stroke GRANDFATHER Social History Smoking Status: Former Smoker (Quit 1960, smoked 0.5ppd x 5 years) Smokeless Tobacco Use: No Alcohol Use: none Drug Use: none Marital Status: Housing status: lives alone, other Occupational Status: retired Immunizations History of Influenza Vaccine: Yes History of Tetanus Vaccine?: Yes Tetanus Immunization Date: Sep 27, 2007 History of Pneumococcal: No Pneumococcal Date: Apr 28, 2007 History of Hepatitis B Vaccine: Yes Hepatitis Immunization Date: Sep 27, 2000 Multi-Drug Resistant Organisms History of MDRO: No Allergies Coded Allergies: Iodinated Diagnostic Agents (Verified Allergy, Severe, RASH TO IVP DYE, NAUSEA, FAINTING, COUGHING, GAGGING, HEADACH, 10/05/17) Sulfa Antibiotics (Verified Allergy, Severe, HIVES, FACIAL AND ARM SWELLING, 10/05/17) Cerivastatin (Verified Allergy, Intermediate, HIVES, 10/05/17) Codeine (Verified Allergy, Intermediate, "PRICKLY RASH", 10/05/17) Hydroxyzine (Verified Allergy, Intermediate, N/V, 10/05/17) Latex1 -Allergic Contact Dermititis (Verified Allergy, Intermediate, DERMATITIS-PT TOLERATED A LATEX CATHETER 03/26/08, 10/05/17) Diphenhydramine (Verified Allergy, Mild, RASH; SLEEPINESS WITH "PHARBEDRYL ", 10/05/17) Loratadine (Verified Allergy, Mild, HIVES, 10/05/17) Sulfamethoxazole w/Trimethoprim (Verified Allergy, Mild, RASH, 10/05/17) Prednisone (Unverified Allergy, Unknown, unknown, 10/05/17) Tetanus Toxoid (Verified Adverse Reaction, Intermediate, SWELLING AT INJECTION SITE, 10/05/17) Alprazolam (Verified Adverse Reaction, Unknown, "SLEEPY STUPER", 10/05/17) Metformin (Verified Adverse Reaction, Unknown, DIARRHEA, 10/05/17) Morphine (Verified Adverse Reaction, Unknown, VOMITING, 10/05/17) Simvastatin (Verified Adverse Reaction, Unknown, COUGH, "DISCOMFORT", ) Home Medications Scheduled Amlodipine (Norvasc), 10 MG PO DAILY Aspirin (Aspirin), 81 MG PO QAM Atorvastatin (Atorvastatin Calcium), 10 MG PO QPM Chlorthalidone (Chlorthalidone), 25 MG PO DAILY Clopidogrel (Plavix), 75 MG PO QAM Escitalopram (Lexapro), 10 MG PO QAM Escitalopram Oxalate (Lexapro), 5 MG PO QAM Gabapentin (Neurontin), 400 MG PO BID Insulin Aspart (Novolog), SQ ACHS Insulin Isophan/Regular (Novolin 70/30), 80 UNITS SC BID Losartan Potassium (Cozaar), 100 MG PO QAM Magnesium Oxide (Mag-Ox), 400 MG PO QAM Metoprolol Tartrate (Lopressor) (Lopressor), 50 MG PO BID Mirtazapine (Remeron), 30 MG PO HS Omeprazole (Prilosec), 40 MG PO QAM Pancrelipase (Lipase-Protease- (Creon), 6,000 UNITS PO QID Ranitidine (Zantac), 75 MG PO BID Ropinirole Hydrochloride (Requip), 1 MG PO HS Trazodone Hcl (Trazodone), 50 MG PO HS Scheduled PRN Budesonide (Inhalation) (Pulmicort), 0.5 MG INH BID PRN for SOB/Wheezing Dicyclomine HCl (Dicyclomine HCl), 10 MG PO TID PRN for Pain Docusate Sodium (Colace), 100 MG PO BID PRN for Constipation Ipratropium-Albuterol (Duoneb), 1 TREATMENT INH Q4H PRN for SOB/Wheezing Lorazepam (Ativan), 0.5 MG PO Q6H PRN for Anxiety Review of Systems See HPI for pertinent positives & negatives. All other systems reviewed and were otherwise negative Physical Exam Vital Signs Date Time Temp Pulse Resp B/P (MAP) Pulse Ox O2 Delivery O2 Flow Rate FiO2 10/05/17 15:09 37.2 101 24 146/66 96 Room Air 10/05/17 13:48 105 10/05/17 13:43 102 173/84 97 Room Air 10/05/17 13:26 38.2 114 22 205/91 97 Room Air General Appearance: WD/WN, + pertinent finding (+repetitive coughing) Head: normocephalic, atraumatic Eyes: normal inspection, EOMI, sclerae normal ENT: hearing grossly normal, TMs normal, pharynx normal, + pertinent finding ( no significant nasal discharge) Neck: supple, no adenopathy, no JVD, trachea midline Respiratory/Chest: chest non-tender, no respiratory distress, no accessory muscle use, + pertinent finding (mildly diminished breath sounds throughout, no rales, rhonchi or wheezing at time of exam) Cardiovascular: regular rate, rhythm, no edema Abdomen/GI: normal bowel sounds, non tender, soft Extremities/Musculoskelatal: normal inspection, no pedal edema, non-tender Skin: normal color, warm/dry, no rash Diagnostics Laboratory Results Results Past 24 Hours Test 10/05/17 14:05 10/05/17 14:15 10/05/17 14:19 10/05/17 15:33 Range/Units Influenza Type A Antigen Neg for Influ A NEG Influenza Type B Antigen Neg for Influ B NEG White Blood Count 13.30 4.8-10.8 K/uL Red Blood Count 4.03 4.2-5.4 M/uL Hemoglobin 12.4 12.0-16.0 g/dL Hematocrit 35.7 37-47 % Mean Corpuscular Volume 88.6 80-100 fL Mean Corpuscular Hemoglobin 30.8 25-34 pg Mean Corpuscular Hemoglobin Concent 34.7 32-36 g/dl Platelet Count 193 130-400 K/uL Mean Platelet Volume 9.3 7.4-10.4 fL Neutrophils (%) (Auto) 66.0 % Lymphocytes (%) (Auto) 20.4 % Monocytes (%) (Auto) 6.8 % Eosinophils (%) (Auto) 5.9 % Basophils (%) (Auto) 0.5 % Neutrophils # (Auto) 8.79 1.4-6.5 K/uL Lymphocytes # (Auto) 2.71 1.2-3.4 K/uL Monocytes # (Auto) 0.91 0.11-0.59 K/uL Eosinophils # (Auto) 0.78 0-0.5 K/uL Basophils # (Auto) 0.06 0-0.2 K/uL RDW Standard Deviation 43.4 36.4-46.3 fL RDW Coefficient of Variation 13.4 11.5-14.5 % Immature Granulocyte % (Auto) 0.4 % Immature Granulocyte # (Auto) 0.05 0.00-0.02 K/uL Prothrombin Time 11.2 9.0-12.0 SECONDS Prothromb Time International Ratio 1.0 0.9-1.1 Activated Partial Thromboplast Time 24.2 21.0-31.0 SECONDS Partial Thromboplastin Ratio 0.9 Sodium Level 137 136-145 mmol/L Potassium Level 3.8 3.5-5.1 mmol/L Chloride Level 103 98-107 mmol/L Carbon Dioxide Level 22 21-32 mmol/L Anion Gap 13.0 3-11 mmol/L Blood Urea Nitrogen 16 7-18 mg/dl Creatinine 1.17 0.60-1.20 mg/dl Est Creatinine Clear Calc Drug Dose 35.9 ml/min Estimated GFR () 52.1 Estimated GFR (Non- 44.9 BUN/Creatinine Ratio 13.5 10-20 Random Glucose 221 70-99 mg/dl Calcium Level 9.2 8.5-10.1 mg/dl Magnesium Level 1.8 1.8-2.4 mg/dl Total Bilirubin 0.4 0.2-1 mg/dl Aspartate Amino Transf (AST/SGOT) 52 15-37 U/L Alanine Aminotransferase (ALT/SGPT) 49 12-78 U/L Alkaline Phosphatase 117 45-117 U/L Total Protein 6.9 6.4-8.2 gm/dl Albumin 3.3 3.4-5.0 gm/dl Globulin 3.6 2.5-4.0 gm/dl Albumin/Globulin Ratio 0.9 0.9-2 Lipase 388 73-393 U/L Bedside Lactic Acid Venous 2.82 0.90-1.70 mmol/L Bedside Glucose 244 70-90 mg/dl Test 10/05/17 16:14 Range/Units Lactic Acid Level 3.7 0.4-2.0 mmol/L Microbiology Results 10/05/17 Blood Culture, Received Pending 10/05/17 Blood Culture, Received Pending Diagnostic Radiology CXR: IMPRESSION: No significant change compared to the prior study. No acute process. Impression Assessment and Plan ACUTE COMPLICATED BRONCHITIS SIRS criteria with fever, tachycardia, leukocytosis (wbc:13). Negative CXR. POC lactic acid 2.8. Serum lactic acid 3.7. negative d-dimer -check flu swab -pending blood cultures -repeat lactic acid -u/a pending -MRSA swab -zosyn -NSS 125ml/hr -duonebs -Pulmicort neb -Hycodan prn cough. pt wants to try even given hx codeine intolerance in past -holding iv/po steroids as pt adverse rxn hx -cbc, prp in am DM II hx insulin dependent and hx uncontrolled -HgbA1c: 10.6 in 08/2017 -hold NPH -NovoLog sliding scale, basal insulin -appreciate pharmacy glycemic control consult HX CHRONIC/RECURRENT PANCREATITIS hx ERCPs in past, last on 09/16/17 with stent. lipase today WNL. denies worsening abd pain or vomiting -continue to monitor -continue bentyl prn -continue PPI HX CVA -continue Plavix -continue Lipitor -continue ASA HTN -continue Norvasc -continue losartan -continue metoprolol DEPRESSION/ANXIETY -continue lexapro -continue ativan prn PERIPHERAL NEUROPATHY -continue gabapentin INSOMNIA/RLS -continue Requip, mirtazapine, trazodone DVT PROPHYLAXIS -heparin SQ DISPOSITION -admit tele -Full Code as per discussion with pt -Follows with Dr Jefferson for routine care Pt was seen with Dr Abdul. See addendum Level of Care Telemetry Resuscitation Status FULL RESUSCITATION VTE Prophylaxis VTE Risk Assessment Done? Y/N: Yes Risk Level: Moderate Given or contraindicated: Unfractionated heparin SQ Additional Copies To Colleen Jefferson D.O.
[2017-10-05] MEDS: INSULIN ASPART 100 UNITS/ML 3 ML PEN SC SCH (21:38)
--- NOTE | 2017-10-05 22:16 | Progress Note ---
Progress Note Date of Service Oct 05, 2017. Progress Note Called from Nurse for elevated lactic acid 4.6 Pt was seen and examined Lying in bed watching TV Continue to have a hard time to cough Her recent vital stable will repeat lactic acid in 6hrs continue IVF and antibiotic.
[2017-10-05 23:56] VITALS: BP 149/71; PULSE 70; TEMP 36.7; O2SAT 93
[2017-10-06] VITALS (15 sets, daily range): BP systolic 150–185; BP diastolic 71–83; PULSE 71–98; TEMP 36.3–36.9; O2SAT 93–99
[2017-10-06] MEDS ORDERED: ALBUT/IPRATROP 3MG/0.5MG NEB 3 ML VIAL INH PRN
[2017-10-06] MEDS: GUAIFENESIN 200 MG TAB PO PRN ×3 (00:36→22:37)
[2017-10-06 04:07] LABS: MEAN CELL VOLUME 89.7 fL (80-100); MEAN CORPUSCULAR HGB CONC 34.5 g/dl (32-36); MEAN PLATELET VOLUME 8.8 fL (7.4-10.4); PLATELET COUNT 168 K/uL (130-400); RED BLOOD COUNT 3.68 M/uL (4.2-5.4); WHITE BLOOD COUNT 10.81 K/uL (4.8-10.8)
[2017-10-06] MEDS: PIPERACILL/TAZOBAC IV 3.375 GM in DEXTROSE 5% 100ML IV SCH (04:19)
[2017-10-06 04:39] LABS: BASO % 0.6 %; BASO ABS # 0.07 K/uL (0-0.2); COMPLETE YES; IG% 0.2 %; LYMPH % 28.3 %; LYMPH ABS # 3.06 K/uL (1.2-3.4); MONO % 7.7 %; NEUT % 57.2 %
[2017-10-06 04:43] LABS: ALB/GLOB RATIO 0.8 (0.9-2); BUN/CREATININE RATIO 12.6 (10-20); CALCIUM 7.8 mg/dl (8.5-10.1); CREATININE 1.41 mg/dl (0.60-1.20); POTASSIUM 3.7 mmol/L (3.5-5.1)
[2017-10-06] MEDS: HEPARIN SOD 5000 UNIT/0.5 ML CARP SQ SCH ×3 (05:45→20:48)
[2017-10-06] MEDS: ALBUT/IPRATROP 3MG/0.5MG NEB 3 ML VIAL INH SCH (07:01)
[2017-10-06] MEDS: BUDESONIDE 0.5 MG/2 ML VIAL (PULMICORT) INH SCH ×2 (07:01→19:14)
[2017-10-06] MEDS: METOPROLOL TARTRATE 50 MG TAB PO SCH ×2 (07:29→20:53)
[2017-10-06] MEDS: RANITIDINE HCL 150 MG TAB PO SCH ×2 (07:29→20:55)
[2017-10-06] MEDS: CLOPIDOGREL BISULFATE 75 MG TAB PO SCH (07:31)
[2017-10-06] MEDS: GABAPENTIN 400 MG CAP PO SCH ×2 (07:31→20:53)
[2017-10-06] MEDS: PANCREAZE (LIPASE 4,200U) CAP PO SCH ×4 (07:32→20:52)
[2017-10-06] MEDS: ESCITALOPRAM OXALATE 10 MG TAB PO SCH ×2 (07:33)
[2017-10-06] MEDS: ASPIRIN 81 MG ECTAB PO SCH (07:33)
[2017-10-06] MEDS: AMLODIPINE BESYLATE 5 MG TAB PO SCH (07:34)
[2017-10-06] MEDS: MAGNESIUM OXIDE 400 MG TAB PO SCH (07:34)
[2017-10-06] MEDS: PANTOprazole SOD 40 MG TAB PO SCH ×2 (07:34→20:51)
--- NOTE | 2017-10-06 08:23 | Pharmacy Progress Note ---
Glycemic Control Progress Note Date of Service Oct 06, 2017. Scope Glycemic Pharmacist consulted for glycemic control to write orders per [facility] inpatient glycemic control protocol. Objective Accuchecks BSG (last 24hrs): Test 10/05/17 14:15 10/05/17 15:33 10/05/17 20:16 10/06/17 03:59 Random Glucose 221 mg/dl (70-99) 266 mg/dl (70-99) Bedside Glucose 244 mg/dl (70-90) 268 mg/dl (70-90) Test 10/06/17 07:06 Bedside Glucose 228 mg/dl (70-90) Recent Pertinent Medications The patient is currently receiving: * Basal insulin: Lantus 35 units every 12 hours * Correctional Insulin: Novolog Correction per scale ACHS Goal Range: Low 120 mg/dL - High 150 mg/dL Correction Factor: 18 mg/dL/unit * Prandial insulin: Per carb ratio of 1 unit per 8 grams CHO consumed Outpatient Anti-Diabetic Meds Novolin 70/30 80 units BID Novolog per sliding scale Assessment & Plan ASSESSMENT: * See progress note from 10/05 for more background info, in short: * Pt receiving SQ basal bolus insulin regimen for hyperglycemia secondary to baseline DM (outpatient regimen on hold),stress/infection * BSGs ranging 224 - 261 mg/dl over the past 24hrs * Changes needed to insulin regimen: * AM Fasting BSG = 228 mg/dl. This is above goal range for patient based on inpatient targets and co-morbidities. Therefore Basal insulin needs increased. Will temporarily increase to 40 units BID until BSGs improve. * Post-prandial BSGs are elevated/BSGs rise throughout the day therefore need to tighten CF/CR. Will tighten to previous dosing of 15/5 until BSGs improve PLAN FOR INPATIENT GLYCEMIC CONTROL: * Increase Lantus to 40 units SQ BID * Tighten correction factor to 15 mg/dl/unit * Tighten carb ratio to 1 unit per 5 grams CHO consumed * Continue goal range of Low 120 mg/dL - High 150 mg/dL * Please note that the plan above was derived based on current level of insulin resistance and hospital stress. These recommendations are appropriate for inpatient admission only. Plan of care upon discharge will need to be reassessed to avoid potential outpatient hypo/hyperglycemia. Thank you.
[2017-10-06] MEDS: INSULIN ASPART 100 UNITS/ML 3 ML PEN SC SCH ×4 (08:46→20:51)
--- NOTE | 2017-10-06 08:46 | Clinical Documentation Query ---
CLINICAL DOCUMENTATION QUERY Dr. MCKENZIE, In your clinical opinion is this patient being managed for: ( ) Sepsis due to acute bronchitis, POA ( ) Not Agree ( ) Other explanation of clinical findings (Please Explain) ( ) Unable to determine (Please Define) ( ) Need to Discuss The medical record reflects the following clinical findings, treatment, and risk factors. Clinical Indicators: 77 yo female presenting with cough. Temp 38.2, HR 114, RR 22, lactic acid 3.7 Treatment: IV zosyn, IV fluids, pending blood cultures, APAP, motrin, duonebs, serial lactic acids Risk Factors: acute bronchitis, COPD, DM, Please clarify and document your clinical opinion in the progress notes and discharge summary. Terms such as "probable", "suspected", "likely", "questionable", "possible", or "still to be ruled out" are acceptable. IF IN AGREEMENT, YOU MUST DOCUMENT ABOVE DIAGNOSTIC STATEMENT IN DAILY PROGRESS NOTES AND DISCHARGE SUMMARY. This document is not part of the patient's record. Thank You, Luisa Ac, LEON [phone]
[2017-10-06] MEDS: SODIUM CHLORIDE 0.9% 1000ML 1,000 ML IV SCH ×2 (08:49→18:43)
[2017-10-06] MEDS ORDERED: LOSARTAN POTASSIUM 50 MG TAB PO SCH (09:00)
[2017-10-06] MEDS ORDERED: INSULIN GLARGINE SOLOSTAR 100 UNITS/ML 3 ML PEN SC SCH (09:00)
[2017-10-06] MEDS ORDERED: CHLORTHALIDONE 25 MG TAB PO SCH (09:00)
--- NOTE | 2017-10-06 09:57 | DIAGNOSTIC IMAGING REPORT ---
CHEST 2 VIEWS ROUTINE HISTORY: 77 years-old Female f/u and rule out pneumonia follow-up study in a patient with sepsis. Questioned pneumonia. COMPARISON: Chest radiograph 10/05/2017 TECHNIQUE: PA and lateral views of the chest FINDINGS: Right internal jugular [id number] catheter is again seen with distal tip in the region of the SVC. Cardiac silhouette is upper limits of normal. Atherosclerosis of the aorta. There is no pneumothorax, pleural effusion, focal airspace consolidation or overt pulmonary edema. Mild right hemidiaphragmatic elevation with minimal hazy right cardiophrenic angle opacity suggesting atelectasis. Surgical clips of the upper abdomen suggest prior cholecystectomy. Catheter device projects over the upper abdomen seen on the lateral view. Multilevel degenerative changes of the spine. IMPRESSION: No acute cardiopulmonary process. No focal airspace consolidation to suggest pneumonia. The above report was generated using voice recognition software. It may contain grammatical, syntax or spelling errors. Electronically signed by: Rob Juarez M.D. 10/06/2017 9:56 AM Dictated Date/Time: 10/06/2017 9:54 AM
[2017-10-06] MEDS ORDERED: LEVALBUTEROL/IPRATROPIUM NEB INH PRN (10:15)
[2017-10-06] MEDS ORDERED: LEVOFLOXACIN CONSULT ACTIVE PRN (10:24)
--- NOTE | 2017-10-06 10:24 | Progress Note ---
Medicine Progress Note Date & Time of Visit: Oct 06, 2017 at 10:15. Subjective patient seen sitting up in bed, not in distress but uncomfortable due to dry cough spells feels about the same as yesterday has some dyspnea, non productive cough denies chills no other symptoms Objective Last 8 Hrs Date Time Temp Pulse Resp B/P (MAP) Pulse Ox O2 Delivery O2 Flow Rate FiO2 10/06/17 07:52 36.4 85 16 177/82 (113) 99 Room Air 10/06/17 07:35 90 159/73 (101) 10/06/17 07:01 97 18 98 Room Air 10/06/17 04:44 150/76 (100) 10/06/17 04:28 36.3 74 20 185/83 (117) 99 Room Air 10/06/17 04:00 Room Air Physical Exam: General- oriented x 3, not in distress, speaks in sentences with no effort Head- atraumatic Eyes- PERRL, EOMI, anicteric ENT- oropharynx clear Neck- supple, no JVD, no adenopathy, no thyromegaly; carotids +2/2, no bruits appreciated Lungs- (+) mild scattered wheezing bilaterally Heart- regular rhythm; no murmur, normal rate Abdomen- normal bowel sounds, soft, nontender Extremities- no pretibial edema, no calf tenderness; peripheral pulses intact Neuro- alert, oriented x 3; PERRL, EOMI; no facial palsy; no dysarthria; motor 5 /5 bilaterally; no gross focal deficits Skin- warm & dry Laboratory Results: Last 24 Hours Test 10/05/17 14:05 10/05/17 14:15 10/05/17 14:19 10/05/17 15:33 Influenza Type A Antigen Neg for Influ A Influenza Type B Antigen Neg for Influ B White Blood Count 13.30 K/uL Red Blood Count 4.03 M/uL Hemoglobin 12.4 g/dL Hematocrit 35.7 % Mean Corpuscular Volume 88.6 fL Mean Corpuscular Hemoglobin 30.8 pg Mean Corpuscular Hemoglobin Concent 34.7 g/dl Platelet Count 193 K/uL Mean Platelet Volume 9.3 fL Neutrophils (%) (Auto) 66.0 % Lymphocytes (%) (Auto) 20.4 % Monocytes (%) (Auto) 6.8 % Eosinophils (%) (Auto) 5.9 % Basophils (%) (Auto) 0.5 % Neutrophils # (Auto) 8.79 K/uL Lymphocytes # (Auto) 2.71 K/uL Monocytes # (Auto) 0.91 K/uL Eosinophils # (Auto) 0.78 K/uL Basophils # (Auto) 0.06 K/uL RDW Standard Deviation 43.4 fL RDW Coefficient of Variation 13.4 % Immature Granulocyte % (Auto) 0.4 % Immature Granulocyte # (Auto) 0.05 K/uL Prothrombin Time 11.2 SECONDS Prothromb Time International Ratio 1.0 Activated Partial Thromboplast Time 24.2 SECONDS Partial Thromboplastin Ratio 0.9 D-Dimer 420 ug/L FEU Sodium Level 137 mmol/L Potassium Level 3.8 mmol/L Chloride Level 103 mmol/L Carbon Dioxide Level 22 mmol/L Anion Gap 13.0 mmol/L Blood Urea Nitrogen 16 mg/dl Creatinine 1.17 mg/dl Est Creatinine Clear Calc Drug Dose 35.9 ml/min Estimated GFR () 52.1 Estimated GFR (Non- 44.9 BUN/Creatinine Ratio 13.5 Random Glucose 221 mg/dl Calcium Level 9.2 mg/dl Magnesium Level 1.8 mg/dl Total Bilirubin 0.4 mg/dl Aspartate Amino Transf (AST/SGOT) 52 U/L Alanine Aminotransferase (ALT/SGPT) 49 U/L Alkaline Phosphatase 117 U/L Total Protein 6.9 gm/dl Albumin 3.3 gm/dl Globulin 3.6 gm/dl Albumin/Globulin Ratio 0.9 Lipase 388 U/L Bedside Lactic Acid Venous 2.82 mmol/L Bedside Glucose 244 mg/dl Test 10/05/17 16:14 10/05/17 19:54 10/05/17 20:16 10/06/17 03:59 Lactic Acid Level 3.7 mmol/L 4.6 mmol/L 2.3 mmol/L Bedside Glucose 268 mg/dl White Blood Count 10.81 K/uL Red Blood Count 3.68 M/uL Hemoglobin 11.4 g/dL Hematocrit 33.0 % Mean Corpuscular Volume 89.7 fL Mean Corpuscular Hemoglobin 31.0 pg Mean Corpuscular Hemoglobin Concent 34.5 g/dl Platelet Count 168 K/uL Mean Platelet Volume 8.8 fL Neutrophils (%) (Auto) 57.2 % Lymphocytes (%) (Auto) 28.3 % Monocytes (%) (Auto) 7.7 % Eosinophils (%) (Auto) 6.0 % Basophils (%) (Auto) 0.6 % Neutrophils # (Auto) 6.18 K/uL Lymphocytes # (Auto) 3.06 K/uL Monocytes # (Auto) 0.83 K/uL Eosinophils # (Auto) 0.65 K/uL Basophils # (Auto) 0.07 K/uL RDW Standard Deviation 44.4 fL RDW Coefficient of Variation 13.6 % Immature Granulocyte % (Auto) 0.2 % Immature Granulocyte # (Auto) 0.02 K/uL Red Blood Cell Morphology Unremarkable Sodium Level 140 mmol/L Potassium Level 3.7 mmol/L Chloride Level 107 mmol/L Carbon Dioxide Level 23 mmol/L Anion Gap 10.0 mmol/L Blood Urea Nitrogen 18 mg/dl Creatinine 1.41 mg/dl Est Creatinine Clear Calc Drug Dose 29.8 ml/min Estimated GFR () 41.5 Estimated GFR (Non- 35.8 BUN/Creatinine Ratio 12.6 Random Glucose 266 mg/dl Calcium Level 7.8 mg/dl Total Bilirubin 0.3 mg/dl Aspartate Amino Transf (AST/SGOT) 32 U/L Alanine Aminotransferase (ALT/SGPT) 42 U/L Alkaline Phosphatase 97 U/L Total Protein 6.4 gm/dl Albumin 2.9 gm/dl Globulin 3.5 gm/dl Albumin/Globulin Ratio 0.8 Test 10/06/17 07:06 Bedside Glucose 228 mg/dl Date/Time Source Procedure Growth Status 10/05/17 14:15 Blood Blood Culture Pending Received 10/05/17 14:05 Blood Blood Culture Pending Received 10/05/17 20:18 Nasal MRSA DNA Surveillance Screen - Final Specimen Negative for MRSA by DNA Probe Complete Assessment & Plan Acute, complicated bronchitis CXR: no signs of pneumonia Flu negative -- feels about the same -- change Nebs to q4h Zosyn to Levaquin Add Solumedrol 40mg IV q8h continue Hycodan PRN continue Pulmicort -- monitor Acute Renal Failure -- hold Chlorthalidone and Losartan -- start IV NSS Insulin Dependent DM2 -- Pharmacy consulted HTN hold Losartan Hx. of CVA continue Plavix, statin Recurrent Pancreatitis stable DVT ppx subq heparin FULL CODE Disposition pending anticipate d/c home when medically stable Current Inpatient Medications: Current Inpatient Medications Medications (Trade) Dose Ordered Sig/Rosetta Route Start Time Stop Time Status Last Admin Dose Admin Acetaminophen (Tylenol Tab) 650 mg Q4H PRN PO 10/05/17 16:15 11/04/17 16:14 10/06/17 00:37 650 MG Ondansetron HCl (Zofran Inj) 4 mg Q6H PRN IV 10/05/17 16:15 11/04/17 16:14 Budesonide (Pulmicort Respules 0.5MG/ 2ML Neb Soln) 0.5 mg BIDR INH 10/05/17 20:00 11/04/17 19:59 10/06/17 07:01 0.5 MG Heparin Sodium (Porcine) (Heparin Sq 5000 Unit/0.5ml) 5,000 unit Q8 SQ 10/05/17 22:00 11/04/17 21:59 Insulin Aspart (novoLOG ASPART) SLIDING SCALE If C... ACHS SC 10/05/17 21:00 11/04/17 20:59 10/06/17 08:46 14 UNITS Glucose (Glucose 40% Gel) 15-30 GRAMS 15 GRAMS... UD PRN PO 10/05/17 16:45 11/04/17 16:44 Glucose (Glucose Chew Tab) 4-8 Tablets 4 Tabl... UD PRN PO 10/05/17 16:45 11/04/17 16:44 Dextrose (Dextrose 50% 50ML Syringe) 25-50ML OF 50% DW IV FOR... UD PRN IV 10/05/17 16:45 11/04/17 16:44 Glucagon (Glucagon Inj) 1 mg UD PRN SQ 10/05/17 16:45 11/04/17 16:44 Miscellaneous Information (Consult Glycemic Management Pharmacy) 1 ea UD PRN N/A 10/05/17 17:47 11/04/17 17:46 Amlodipine Besylate (Norvasc Tab) 10 mg DAILY PO 10/06/17 09:00 11/05/17 08:59 10/06/17 07:34 10 MG Aspirin (Ecotrin Tab) 81 mg QAM PO 10/06/17 09:00 11/05/17 08:59 10/06/17 07:33 81 MG Atorvastatin Calcium (Lipitor Tab) 10 mg QPM PO 10/05/17 21:00 11/04/17 20:59 10/05/17 20:45 10 MG Clopidogrel Bisulfate (plAVix TAB) 75 mg QAM PO 10/06/17 09:00 11/05/17 08:59 10/06/17 07:31 75 MG Dicyclomine HCl (Bentyl Cap) 10 mg TID PRN PO 10/05/17 17:15 11/04/17 17:14 Docusate Sodium (coLACE CAP) 100 mg BID PRN PO 10/05/17 17:15 11/04/17 17:14 Escitalopram Oxalate (Lexapro Tab) 10 mg QAM PO 10/06/17 09:00 11/05/17 08:59 10/06/17 07:33 10 MG Escitalopram Oxalate (Lexapro Tab) 5 mg QAM PO 10/06/17 09:00 11/05/17 08:59 10/06/17 07:33 5 MG Gabapentin (Neurontin Cap) 400 mg BID PO 10/05/17 21:00 11/04/17 20:59 10/06/17 07:31 400 MG Lorazepam (Ativan Tab) 0.5 mg Q6H PRN PO 10/05/17 17:15 11/04/17 17:14 Magnesium Oxide (Mag-Ox Tab) 400 mg QAM PO 10/06/17 09:00 11/05/17 08:59 10/06/17 07:34 400 MG Metoprolol Tartrate (Lopressor Tab) 50 mg BID PO 10/05/17 21:00 11/04/17 20:59 10/06/17 07:29 50 MG Mirtazapine (Remeron Tab) 30 mg HS PO 10/05/17 21:00 11/04/17 20:59 10/05/17 20:43 30 MG Ranitidine HCl (zANTac TAB) 75 mg BID PO 10/05/17 21:00 11/04/17 20:59 10/06/17 07:29 75 MG Ropinirole HCl (Requip Tab) 1 mg HS PO 10/05/17 21:00 11/04/17 20:59 10/05/17 20:42 1 MG Trazodone HCl (Desyrel Tab) 50 mg HS PO 10/05/17 21:00 11/04/17 20:59 10/05/17 20:45 50 MG Pantoprazole Sodium (Protonix Tab) 40 mg QAM PO 10/06/17 09:00 11/05/17 08:59 10/06/17 07:34 40 MG Amylase/Lipase/ Protease (Pancreaze (Lipase 4,200U) Cap) 1 cap QID PO 10/05/17 21:00 11/04/17 20:59 10/06/17 07:32 1 CAP Guaifenesin (Organidin Nr Tab) 200 mg Q6 PRN PO 10/06/17 00:00 11/05/17 00:00 10/06/17 07:28 200 MG Heparin Sodium (Porcine) (Heparin 100 Unit/ml 5ml Flush) 5 ml PRN PRN IV 10/06/17 00:45 11/05/17 00:44 Insulin Glargine (Lantus Solostar Pen) 40 units Q12 SC 10/06/17 09:00 11/05/17 08:59 10/06/17 08:48 40 UNITS Sodium Chloride 1,000 ml @ 100 mls/hr Q10H IV 10/06/17 08:15 11/05/17 08:14 10/06/17 08:49 100 MLS/HR Hydrocodone Bit/ Homatropine Methylb (Hycodan Syrup) 5 ml Q6H PRN PO 10/06/17 10:15 10/19/17 16:29 UNV Miscellaneous Information (Pharmacy Consult) 1 ea NOW STAT N/A 10/06/17 10:01 10/06/17 10:02 UNV Miscellaneous (Xopenex/ Atrovent Neb) 1 ea Q4H INH 10/06/17 10:15 11/05/17 10:14 UNV Miscellaneous (Xopenex/ Atrovent Neb) 1 ea Q4H PRN INH 10/06/17 10:15 11/05/17 10:14 UNV Methylprednisolone Sodium Succinate 40 mg/Syringe 0.64 ml @ 1.5 mls/min Q8H IV 10/06/17 10:15 11/05/17 10:14 UNV Benzonatate (Tessalon Perles Cap) 100 mg TID PRN PO 10/06/17 10:15 11/05/17 10:14 UNV
[2017-10-06] MEDS: HYDROCODONE/HOMATROPINE SYRUP 5MG/1.5MG 5ML UDP PO PRN ×2 (10:47→17:34)
[2017-10-06] MEDS ORDERED: LEVOFLOXACIN 750MG / D5W IV SCH (11:00)
[2017-10-06] MEDS: METHYLPREDNISOLONE IV 40 MG in SYRINGE 0 ML IV SCH ×2 (11:36→20:47)
[2017-10-06] MEDS: BENZONATATE 100MG CAP PO PRN ×3 (11:37→22:35)
[2017-10-06] MEDS ORDERED: INSULIN GLARGINE SOLOSTAR 100 UNITS/ML 3 ML PEN SC ONE (11:45)
[2017-10-06 15:06] LABS: URINE APPEARANCE CLEAR (CLEAR); URINE BILIRUBIN NEG (NEG); URINE COLOR YELLOW; URINE NITRITE NEG (NEG); URINE SPECIFIC GRAVITY 1.022 (1.000-1.030); UROBILINOGEN NEG (NEG); ZZUR CULT IF INDIC CLEAN CATCH YES
[2017-10-06 15:07] LABS: MANUAL MICROSCOPIC REQUIRED? NO; REVIEW REQ? YES
[2017-10-06] MEDS: IPRATROPIUM BROMIDE NEB SOLN 0.02% 2.5 ML VIAL INH PRN ×2 (15:33→19:13)
[2017-10-06] MEDS: LEVALBUTEROL 1.25MG/0.5ML NEB INH PRN ×2 (15:33→19:13)
[2017-10-06] MEDS: INSULIN GLARGINE SOLOSTAR 100 UNITS/ML 3 ML PEN SC SCH (17:27)
[2017-10-06] MEDS: LEVALBUTEROL 1.25MG/3ML NEB INH SCH ×2 (19:13→23:03)
[2017-10-06] MEDS: IPRATROPIUM BROMIDE NEB SOLN 0.02% 2.5 ML VIAL INH SCH ×2 (19:13→23:03)
[2017-10-06] MEDS: ROPINIROLE HCL 1 MG TAB PO SCH (20:51)
[2017-10-06] MEDS: ATORVASTATIN 10 MG TAB PO SCH (20:53)
[2017-10-06] MEDS: MIRTAZAPINE TAB 15 MG TAB PO SCH (20:54)
[2017-10-06] MEDS: TRAZODONE HCL 50 MG TAB PO SCH (20:55)
[2017-10-07] VITALS (14 sets, daily range): BP systolic 118–178; BP diastolic 49–80; PULSE 66–84; TEMP 36.3–36.8; O2SAT 93–98
[2017-10-07] MEDS: INSULIN ASPART 100 UNITS/ML 3 ML PEN SC SCH ×7 (00:27→23:57)
[2017-10-07] MEDS: HYDROCODONE/HOMATROPINE SYRUP 5MG/1.5MG 5ML UDP PO PRN ×3 (00:27→22:17)
[2017-10-07] MEDS: LEVALBUTEROL 1.25MG/3ML NEB INH SCH ×6 (03:20→22:59)
[2017-10-07] MEDS: IPRATROPIUM BROMIDE NEB SOLN 0.02% 2.5 ML VIAL INH SCH ×6 (03:20→22:59)
[2017-10-07] MEDS: SODIUM CHLORIDE 0.9% 1000ML 1,000 ML IV SCH ×2 (04:01→14:25)
[2017-10-07] MEDS: HEPARIN SOD 5000 UNIT/0.5 ML CARP SQ SCH ×3 (04:58→21:46)
[2017-10-07] MEDS: METHYLPREDNISOLONE IV 40 MG in SYRINGE 0 ML IV SCH ×3 (04:58→21:33)
[2017-10-07 06:15] LABS: CREATININE 1.24 mg/dl (0.60-1.20)
[2017-10-07] MEDS: BUDESONIDE 0.5 MG/2 ML VIAL (PULMICORT) INH SCH ×2 (06:59→19:00)
[2017-10-07] MEDS: ESCITALOPRAM OXALATE 10 MG TAB PO SCH ×2 (08:44)
[2017-10-07] MEDS: CLOPIDOGREL BISULFATE 75 MG TAB PO SCH (08:45)
[2017-10-07] MEDS: GUAIFENESIN 200 MG TAB PO PRN (08:46)
[2017-10-07] MEDS: RANITIDINE HCL 150 MG TAB PO SCH ×2 (08:46→21:36)
[2017-10-07] MEDS: AMLODIPINE BESYLATE 5 MG TAB PO SCH (08:46)
[2017-10-07] MEDS: ASPIRIN 81 MG ECTAB PO SCH (08:47)
[2017-10-07] MEDS: MAGNESIUM OXIDE 400 MG TAB PO SCH (08:47)
[2017-10-07] MEDS: PANCREAZE (LIPASE 4,200U) CAP PO SCH ×4 (08:49→21:36)
[2017-10-07] MEDS: METOPROLOL TARTRATE 50 MG TAB PO SCH ×2 (08:49→21:40)
[2017-10-07] MEDS: GABAPENTIN 400 MG CAP PO SCH ×2 (08:49→21:39)
[2017-10-07] MEDS: INSULIN GLARGINE SOLOSTAR 100 UNITS/ML 3 ML PEN SC SCH ×2 (08:53→21:45)
--- NOTE | 2017-10-07 09:42 | Pharmacy Progress Note ---
Pharmacy Glycemic Short Note 2 Date of Service Oct 07, 2017. OUTPATIENT ANTIDIABETIC REGIMEN: * Novolin 70/30 80 units BID * Novolog per sliding scale ASSESSMENT: * Ms. Kaplan was initiated on IV steroids in the middle of the day yesterday * I made adjustments to insulin regimen based upon previous dosing when on ATC steroids but her BSGs have remained in the 200s * She received 200 units of insulin yesterday so an est TDD of ~300 units is what I will base insulin estimates of off - keeping the basal at ~40% of TDD since steroids mainly affect postprandial BSGs PLAN FOR INPATIENT GLYCEMIC CONTROL: * Basal insulin * Continue Lantus 60 units SQ BID - this is already at 40% of est TDD of 300 units * Bolus insulin * NovoLog per scale ACHS + 00,04 * Goal Range: Low 120 mg/dL - High 150 mg/dL * TIGHTEN to Correction Factor: 5 mg/dL/unit * TIGHTEN to Nutritional / Prandial insulin per carb ratio of 1 unit per 2 grams CHO consumed PLAN FOR DISCHARGE: * A1c significantly elevated * Will need to determine an appropriate discharge plan for patient 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
--- NOTE | 2017-10-07 17:45 | Progress Note ---
Medicine Progress Note Date & Time of Visit: Oct 07, 2017 at 17:38. Subjective patient seen resting at the edge of the bed appears more comfortable than yesterday states breathing has improved compared to yesterday still has dry cough but better also no other symptoms Objective Last 8 Hrs Date Time Temp Pulse Resp B/P (MAP) Pulse Ox O2 Delivery O2 Flow Rate FiO2 10/07/17 15:08 36.3 66 18 130/74 (92) 93 10/07/17 15:02 78 18 98 Room Air 10/07/17 12:00 Room Air 10/07/17 11:32 73 18 95 Room Air 10/07/17 11:02 36.5 68 20 138/70 (92) 96 Room Air Physical Exam: General- oriented x 3, not in distress, speaks in sentences with no effort Eyes- EOMI, anicteric ENT- oropharynx clear Neck- supple, no JVD, no adenopathy, no thyromegaly Lungs- (+) faint scattered wheezing bilaterally, good air entry Heart- regular rhythm; no murmur, normal rate Abdomen- normal bowel sounds, soft, nontender Extremities- no pretibial edema, no calf tenderness; peripheral pulses intact Neuro- alert, oriented x 3; no gross focal deficits Skin- warm & dry Laboratory Results: Last 24 Hours Test 10/06/17 20:28 10/07/17 00:10 10/07/17 03:51 10/07/17 05:33 Bedside Glucose 295 mg/dl 231 mg/dl 272 mg/dl Creatinine 1.24 mg/dl Est Creatinine Clear Calc Drug Dose 33.9 ml/min Estimated GFR () 48.5 Estimated GFR (Non- 41.9 Test 10/07/17 07:20 10/07/17 11:37 10/07/17 16:48 Bedside Glucose 278 mg/dl 185 mg/dl 77 mg/dl Assessment & Plan Acute, complicated bronchitis -- CXR: no signs of pneumonia Flu negative -- improving gradually- less wheezing continue Nebs q4h, Levaquin, Solumedrol 40mg IV q8h continue Hycodan PRN continue Pulmicort -- monitor Acute Renal Failure -- hold Chlorthalidone and Losartan -- started IV NSS crea improved to 1.2 -- monitor Insulin Dependent DM2 -- Pharmacy consulted on Lantus BID, ISS HTN hold Losartan in light of crea elevation monitor Hx. of CVA continue Plavix, statin Recurrent Pancreatitis stable DVT ppx subq heparin FULL CODE Disposition pending anticipate d/c home when medically stable 2 step exercise test on discharge day, may need supplemental oxygen Current Inpatient Medications: Current Inpatient Medications Medications (Trade) Dose Ordered Sig/Rosetta Route Start Time Stop Time Status Last Admin Dose Admin Acetaminophen (Tylenol Tab) 650 mg Q4H PRN PO 10/05/17 16:15 11/04/17 16:14 10/06/17 00:37 650 MG Ondansetron HCl (Zofran Inj) 4 mg Q6H PRN IV 10/05/17 16:15 11/04/17 16:14 10/06/17 12:29 4 MG Budesonide (Pulmicort Respules 0.5MG/ 2ML Neb Soln) 0.5 mg BIDR INH 10/05/17 20:00 11/04/17 19:59 10/07/17 06:59 0.5 MG Heparin Sodium (Porcine) (Heparin Sq 5000 Unit/0.5ml) 5,000 unit Q8 SQ 10/05/17 22:00 11/04/17 21:59 Insulin Aspart (novoLOG ASPART) SLIDING SCALE If C... ACHS SC 10/05/17 21:00 11/04/17 20:59 10/07/17 17:31 33 UNITS Glucose (Glucose 40% Gel) 15-30 GRAMS 15 GRAMS... UD PRN PO 10/05/17 16:45 11/04/17 16:44 Glucose (Glucose Chew Tab) 4-8 Tablets 4 Tabl... UD PRN PO 10/05/17 16:45 11/04/17 16:44 Dextrose (Dextrose 50% 50ML Syringe) 25-50ML OF 50% DW IV FOR... UD PRN IV 10/05/17 16:45 11/04/17 16:44 Glucagon (Glucagon Inj) 1 mg UD PRN SQ 10/05/17 16:45 11/04/17 16:44 Miscellaneous Information (Consult Glycemic Management Pharmacy) 1 ea UD PRN N/A 10/05/17 17:47 11/04/17 17:46 Amlodipine Besylate (Norvasc Tab) 10 mg DAILY PO 10/06/17 09:00 11/05/17 08:59 10/07/17 08:46 10 MG Aspirin (Ecotrin Tab) 81 mg QAM PO 10/06/17 09:00 11/05/17 08:59 10/07/17 08:47 81 MG Atorvastatin Calcium (Lipitor Tab) 10 mg QPM PO 10/05/17 21:00 11/04/17 20:59 10/06/17 20:53 10 MG Clopidogrel Bisulfate (plAVix TAB) 75 mg QAM PO 10/06/17 09:00 11/05/17 08:59 10/07/17 08:45 75 MG Dicyclomine HCl (Bentyl Cap) 10 mg TID PRN PO 10/05/17 17:15 11/04/17 17:14 10/06/17 12:22 10 MG Docusate Sodium (coLACE CAP) 100 mg BID PRN PO 10/05/17 17:15 11/04/17 17:14 Escitalopram Oxalate (Lexapro Tab) 10 mg QAM PO 10/06/17 09:00 11/05/17 08:59 10/07/17 08:44 10 MG Escitalopram Oxalate (Lexapro Tab) 5 mg QAM PO 10/06/17 09:00 11/05/17 08:59 10/07/17 08:44 5 MG Gabapentin (Neurontin Cap) 400 mg BID PO 10/05/17 21:00 11/04/17 20:59 10/07/17 08:49 400 MG Lorazepam (Ativan Tab) 0.5 mg Q6H PRN PO 10/05/17 17:15 11/04/17 17:14 Magnesium Oxide (Mag-Ox Tab) 400 mg QAM PO 10/06/17 09:00 11/05/17 08:59 10/07/17 08:47 400 MG Metoprolol Tartrate (Lopressor Tab) 50 mg BID PO 10/05/17 21:00 11/04/17 20:59 10/07/17 08:49 50 MG Mirtazapine (Remeron Tab) 30 mg HS PO 10/05/17 21:00 11/04/17 20:59 10/06/17 20:54 30 MG Ranitidine HCl (zANTac TAB) 75 mg BID PO 10/05/17 21:00 11/04/17 20:59 10/07/17 08:46 75 MG Ropinirole HCl (Requip Tab) 1 mg HS PO 10/05/17 21:00 11/04/17 20:59 10/06/17 20:51 1 MG Trazodone HCl (Desyrel Tab) 50 mg HS PO 10/05/17 21:00 11/04/17 20:59 10/06/17 20:55 50 MG Pantoprazole Sodium (Protonix Tab) 40 mg QAM PO 10/06/17 09:00 11/05/17 08:59 10/06/17 20:51 40 MG Amylase/Lipase/ Protease (Pancreaze (Lipase 4,200U) Cap) 1 cap QID PO 10/05/17 21:00 11/04/17 20:59 10/07/17 17:27 1 CAP Guaifenesin (Organidin Nr Tab) 200 mg Q6 PRN PO 10/06/17 00:00 11/05/17 00:00 10/07/17 08:46 200 MG Heparin Sodium (Porcine) (Heparin 100 Unit/ml 5ml Flush) 5 ml PRN PRN IV 10/06/17 00:45 11/05/17 00:44 Sodium Chloride 1,000 ml @ 100 mls/hr Q10H IV 10/06/17 08:15 11/05/17 08:14 10/07/17 14:25 100 MLS/HR Hydrocodone Bit/ Homatropine Methylb (Hycodan Syrup) 5 ml Q6H PRN PO 10/06/17 10:15 10/19/17 16:29 10/07/17 09:37 5 ML Levofloxacin (Consult) 1 ea UD PRN N/A 10/06/17 10:24 11/05/17 10:23 Levalbuterol (Xopenex 1.25MG/ 3ML Neb) 1.25 mg Q4R INH 10/06/17 12:00 11/05/17 11:59 10/07/17 15:01 1.25 MG Methylprednisolone Sodium Succinate 40 mg/Syringe 0.64 ml @ 1.5 mls/min Q8 IV 10/06/17 12:00 11/05/17 11:59 10/07/17 14:25 1.5 MLS/MIN Benzonatate (Tessalon Perles Cap) 100 mg TID PRN PO 10/06/17 10:15 11/05/17 10:14 10/06/17 22:35 100 MG Ipratropium [place] (Atrovent 0.02% 0.5MG/2.5ML Neb) 0.5 mg Q4R INH 10/06/17 12:00 11/05/17 11:59 10/07/17 15:00 0.5 MG Ipratropium [place] (Atrovent 0.02% 0.5MG/2.5ML Neb) 0.5 mg Q4H PRN INH 10/06/17 10:45 11/05/17 10:44 10/06/17 19:13 0.5 MG Levalbuterol (Xopenex 1.25MG/ 0.5ML Neb) 1.25 mg Q4H PRN INH 10/06/17 10:45 11/05/17 10:44 10/06/17 19:13 1.25 MG Insulin Glargine (Lantus Solostar Pen) 60 units Q12 SC 10/06/17 17:00 11/05/17 16:59 10/07/17 08:53 60 UNITS Insulin Aspart (novoLOG ASPART) SLIDING SCALE If C... 0000,0400 SC 10/07/17 00:00 11/06/17 00:00 10/07/17 03:59 13 UNITS Levofloxacin (Levaquin Tab) 250 mg DAILY@11 PO 10/08/17 11:00 10/13/17 10:59
[2017-10-07] MEDS: ROPINIROLE HCL 1 MG TAB PO SCH (21:36)
[2017-10-07] MEDS: TRAZODONE HCL 50 MG TAB PO SCH (21:37)
[2017-10-07] MEDS: MIRTAZAPINE TAB 15 MG TAB PO SCH (21:38)
[2017-10-07] MEDS: ATORVASTATIN 10 MG TAB PO SCH (21:39)
[2017-10-08] MEDS: LEVALBUTEROL 1.25MG/0.5ML NEB INH PRN (03:01)
[2017-10-08] MEDS: IPRATROPIUM BROMIDE NEB SOLN 0.02% 2.5 ML VIAL INH PRN (03:01)
[2017-10-08 03:03] VITALS: PULSE 81; O2SAT 94
[2017-10-08] MEDS: IPRATROPIUM BROMIDE NEB SOLN 0.02% 2.5 ML VIAL INH SCH ×3 (03:03→11:09)
[2017-10-08] MEDS: LEVALBUTEROL 1.25MG/3ML NEB INH SCH ×3 (03:03→11:09)
[2017-10-08 04:00] VITALS: BP 137/66; PULSE 72; TEMP 36.4; O2SAT 92
[2017-10-08] MEDS: INSULIN ASPART 100 UNITS/ML 3 ML PEN SC SCH ×3 (04:00→12:04)
[2017-10-08] MEDS: HEPARIN SOD 5000 UNIT/0.5 ML CARP SQ SCH (05:33)
[2017-10-08] MEDS: METHYLPREDNISOLONE IV 40 MG in SYRINGE 0 ML IV SCH (05:33)
[2017-10-08 06:27] LABS: CREATININE 1.23 mg/dl (0.60-1.20)
[2017-10-08] MEDS: BUDESONIDE 0.5 MG/2 ML VIAL (PULMICORT) INH SCH (06:55)
[2017-10-08 06:56] VITALS: PULSE 82; O2SAT 96
[2017-10-08 07:16] VITALS: BP 138/72; PULSE 74; TEMP 36.5; O2SAT 98
[2017-10-08] MEDS: PANTOprazole SOD 40 MG TAB PO SCH (08:03)
[2017-10-08] MEDS: PANCREAZE (LIPASE 4,200U) CAP PO SCH (08:03)
[2017-10-08] MEDS: AMLODIPINE BESYLATE 5 MG TAB PO SCH (08:03)
[2017-10-08] MEDS: MAGNESIUM OXIDE 400 MG TAB PO SCH (08:04)
[2017-10-08] MEDS: ESCITALOPRAM OXALATE 10 MG TAB PO SCH ×2 (08:04→08:10)
[2017-10-08] MEDS: GUAIFENESIN 200 MG TAB PO PRN (08:04)
[2017-10-08] MEDS: GABAPENTIN 400 MG CAP PO SCH (08:05)
[2017-10-08] MEDS: CLOPIDOGREL BISULFATE 75 MG TAB PO SCH (08:05)
[2017-10-08] MEDS: ASPIRIN 81 MG ECTAB PO SCH (08:06)
[2017-10-08] MEDS: METOPROLOL TARTRATE 50 MG TAB PO SCH (08:06)
[2017-10-08] MEDS: RANITIDINE HCL 150 MG TAB PO SCH (08:07)
[2017-10-08] MEDS: INSULIN GLARGINE SOLOSTAR 100 UNITS/ML 3 ML PEN SC SCH (08:40)
[2017-10-08] MEDS: HYDROCODONE/HOMATROPINE SYRUP 5MG/1.5MG 5ML UDP PO PRN (08:48)
--- NOTE | 2017-10-08 10:17 | Progress Note ---
Medicine Progress Note Date & Time of Visit: Oct 08, 2017 at 10:05. Subjective patient seen resting in bed, comfortable states she feels much better overall breathing has improved, less cough no other symptoms states she is ready and would like to be discharged today Objective Last 8 Hrs Date Time Temp Pulse Resp B/P (MAP) Pulse Ox O2 Delivery O2 Flow Rate FiO2 10/08/17 07:16 36.5 74 22 138/72 (94) 98 10/08/17 07:15 Room Air 10/08/17 06:56 82 18 96 Room Air 10/08/17 04:00 Room Air 10/08/17 04:00 36.4 72 137/66 (89) 92 Room Air 10/08/17 03:03 81 16 94 Room Air Physical Exam: General- oriented x 3, not in distress, speaks in sentences with no effort Eyes- anicteric Neck- supple, no JVD Lungs- clear breath sounds bilaterally, no rales/wheezes Heart- regular rhythm; no murmur, normal rate Abdomen- normal bowel sounds, soft, nontender Extremities- no pretibial edema, no calf tenderness; peripheral pulses intact Neuro- alert, oriented x 3; no gross focal deficits Skin- warm & dry Laboratory Results: Last 24 Hours Test 10/07/17 11:37 10/07/17 16:48 10/07/17 20:38 10/07/17 23:53 Bedside Glucose 185 mg/dl 77 mg/dl 130 mg/dl 191 mg/dl Test 10/08/17 04:28 10/08/17 05:28 10/08/17 07:17 Bedside Glucose 138 mg/dl 215 mg/dl Creatinine 1.23 mg/dl Est Creatinine Clear Calc Drug Dose 34.5 ml/min Estimated GFR () 49.0 Estimated GFR (Non- 42.3 Assessment & Plan Acute, complicated bronchitis -- CXR: no signs of pneumonia Flu negative -- improving gradually- less wheezing given Nebs q4h, Levaquin, Solumedrol 40mg IV q8h continue Hycodan PRN continue Pulmicort -- discharge plan: Prednisone taper starting at 40mg po daily Levaquin 250mg po daily x 3 days to complete 5 days therapy Nebs PRN usual Pulmicort -- Home health services PCP in 3-5 days Acute Renal Failure -- held Chlorthalidone and Losartan -- crea improved from 1.4 to 1.2 hold Chlorthalidone until ff up with PCP Insulin Dependent DM2 -- Pharmacy consulted on Lantus BID, ISS HTN continue usual medications monitor crea as outpatient Hx. of CVA continue Plavix, statin Recurrent Pancreatitis stable Disposition d/c home with home health services ff up with PCP in 3-5 days Current Inpatient Medications: Current Inpatient Medications Medications (Trade) Dose Ordered Sig/Rosetta Route Start Time Stop Time Status Last Admin Dose Admin Acetaminophen (Tylenol Tab) 650 mg Q4H PRN PO 10/05/17 16:15 11/04/17 16:14 10/06/17 00:37 650 MG Ondansetron HCl (Zofran Inj) 4 mg Q6H PRN IV 10/05/17 16:15 11/04/17 16:14 10/06/17 12:29 4 MG Budesonide (Pulmicort Respules 0.5MG/ 2ML Neb Soln) 0.5 mg BIDR INH 10/05/17 20:00 11/04/17 19:59 10/08/17 06:55 0.5 MG Heparin Sodium (Porcine) (Heparin Sq 5000 Unit/0.5ml) 5,000 unit Q8 SQ 10/05/17 22:00 11/04/17 21:59 Insulin Aspart (novoLOG ASPART) SLIDING SCALE If C... ACHS SC 10/05/17 21:00 11/04/17 20:59 10/08/17 08:17 34 UNITS Glucose (Glucose 40% Gel) 15-30 GRAMS 15 GRAMS... UD PRN PO 10/05/17 16:45 11/04/17 16:44 Glucose (Glucose Chew Tab) 4-8 Tablets 4 Tabl... UD PRN PO 10/05/17 16:45 11/04/17 16:44 Dextrose (Dextrose 50% 50ML Syringe) 25-50ML OF 50% DW IV FOR... UD PRN IV 10/05/17 16:45 11/04/17 16:44 Glucagon (Glucagon Inj) 1 mg UD PRN SQ 10/05/17 16:45 11/04/17 16:44 Miscellaneous Information (Consult Glycemic Management Pharmacy) 1 ea UD PRN N/A 10/05/17 17:47 11/04/17 17:46 Amlodipine Besylate (Norvasc Tab) 10 mg DAILY PO 10/06/17 09:00 11/05/17 08:59 10/08/17 08:03 10 MG Aspirin (Ecotrin Tab) 81 mg QAM PO 10/06/17 09:00 11/05/17 08:59 10/08/17 08:06 81 MG Atorvastatin Calcium (Lipitor Tab) 10 mg QPM PO 10/05/17 21:00 11/04/17 20:59 10/07/17 21:39 10 MG Clopidogrel Bisulfate (plAVix TAB) 75 mg QAM PO 10/06/17 09:00 11/05/17 08:59 10/08/17 08:05 75 MG Dicyclomine HCl (Bentyl Cap) 10 mg TID PRN PO 10/05/17 17:15 11/04/17 17:14 10/06/17 12:22 10 MG Docusate Sodium (coLACE CAP) 100 mg BID PRN PO 10/05/17 17:15 11/04/17 17:14 Escitalopram Oxalate (Lexapro Tab) 10 mg QAM PO 10/06/17 09:00 11/05/17 08:59 10/08/17 08:04 10 MG Escitalopram Oxalate (Lexapro Tab) 5 mg QAM PO 10/06/17 09:00 11/05/17 08:59 10/08/17 08:10 5 MG Gabapentin (Neurontin Cap) 400 mg BID PO 10/05/17 21:00 11/04/17 20:59 10/08/17 08:05 400 MG Lorazepam (Ativan Tab) 0.5 mg Q6H PRN PO 10/05/17 17:15 11/04/17 17:14 Magnesium Oxide (Mag-Ox Tab) 400 mg QAM PO 10/06/17 09:00 11/05/17 08:59 10/08/17 08:04 400 MG Metoprolol Tartrate (Lopressor Tab) 50 mg BID PO 10/05/17 21:00 11/04/17 20:59 10/08/17 08:06 50 MG Mirtazapine (Remeron Tab) 30 mg HS PO 10/05/17 21:00 11/04/17 20:59 10/07/17 21:38 30 MG Ranitidine HCl (zANTac TAB) 75 mg BID PO 10/05/17 21:00 11/04/17 20:59 10/08/17 08:07 75 MG Ropinirole HCl (Requip Tab) 1 mg HS PO 10/05/17 21:00 11/04/17 20:59 10/07/17 21:36 1 MG Trazodone HCl (Desyrel Tab) 50 mg HS PO 10/05/17 21:00 11/04/17 20:59 10/07/17 21:37 50 MG Pantoprazole Sodium (Protonix Tab) 40 mg QAM PO 10/06/17 09:00 11/05/17 08:59 10/08/17 08:03 40 MG Amylase/Lipase/ Protease (Pancreaze (Lipase 4,200U) Cap) 1 cap QID PO 10/05/17 21:00 11/04/17 20:59 10/08/17 08:03 1 CAP Guaifenesin (Organidin Nr Tab) 200 mg Q6 PRN PO 10/06/17 00:00 11/05/17 00:00 10/08/17 08:04 200 MG Heparin Sodium (Porcine) (Heparin 100 Unit/ml 5ml Flush) 5 ml PRN PRN IV 10/06/17 00:45 11/05/17 00:44 10/08/17 05:55 5 ML Hydrocodone Bit/ Homatropine Methylb (Hycodan Syrup) 5 ml Q6H PRN PO 10/06/17 10:15 10/19/17 16:29 10/08/17 08:48 5 ML Levofloxacin (Consult) 1 ea UD PRN N/A 10/06/17 10:24 11/05/17 10:23 Levalbuterol (Xopenex 1.25MG/ 3ML Neb) 1.25 mg Q4R INH 10/06/17 12:00 11/05/17 11:59 10/08/17 06:55 1.25 MG Methylprednisolone Sodium Succinate 40 mg/Syringe 0.64 ml @ 1.5 mls/min Q8 IV 10/06/17 12:00 11/05/17 11:59 10/08/17 05:33 1.5 MLS/MIN Benzonatate (Tessalon Perles Cap) 100 mg TID PRN PO 10/06/17 10:15 11/05/17 10:14 10/06/17 22:35 100 MG Ipratropium Lowry (Atrovent 0.02% 0.5MG/2.5ML Neb) 0.5 mg Q4R INH 10/06/17 12:00 11/05/17 11:59 10/08/17 06:55 0.5 MG Ipratropium [place]ry (Atrovent 0.02% 0.5MG/2.5ML Neb) 0.5 mg Q4H PRN INH 10/06/17 10:45 11/05/17 10:44 10/08/17 03:01 0.5 MG Levalbuterol (Xopenex 1.25MG/ 0.5ML Neb) 1.25 mg Q4H PRN INH 10/06/17 10:45 11/05/17 10:44 10/08/17 03:01 1.25 MG Insulin Glargine (Lantus Solostar Pen) 60 units Q12 SC 10/06/17 17:00 11/05/17 16:59 10/08/17 08:40 60 UNITS Insulin Aspart (novoLOG ASPART) SLIDING SCALE If C... 0000,0400 SC 10/07/17 00:00 11/06/17 00:00 10/07/17 23:57 9 UNITS Levofloxacin (Levaquin Tab) 250 mg DAILY@11 PO 10/08/17 11:00 10/13/17 10:59
[2017-10-08] MEDS ORDERED: IPRASOL4 INH ×2 (10:28→10:47)
[2017-10-08] MEDS ORDERED: BENZ100C7 PO (10:28)
[2017-10-08] MEDS ORDERED: BUDE1SUS INH ×2 (10:28→10:47)
[2017-10-08] MEDS ORDERED: LVQ250 PO (10:28)
[2017-10-08] MEDS ORDERED: PRD10 PO (10:30)
--- NOTE | 2017-10-08 10:35 | Discharge Instructions ---
Discharge Instructions Date of Service Oct 08, 2017. Admission Reason for Admission: Fever, Sob Discharge Discharge Diagnosis / Problem: ACUTE BRONCHITIS Discharge Goals Goal(s): Diagnostic testing, Therapeutic intervention Activity Recommendations Activity Limitations: as noted below (NO HEAVY EXERTION UNTIL RE-EVALUATED BY PRIMARY CARE PHYSICIAN) . Instructions / Follow-Up Instructions / Follow-Up PLEASE REVIEW YOUR NEW MEDICATION LIST AND FOLLOW INSTRUCTIONS CAREFULLY. CALL YOU PRIMARY CARE PHYSICIAN OR RETURN TO THE ER IMMEDIATELY IF WITH RECURRENCE OF SYMPTOMS, INCREASING COUGH, SHORTNESS OF BREATH, FEVER/CHILLS, LEG SWELLING. ENSURE ADEQUATE DAILY FLUID INTAKE. TAKE YOGURT EVERYDAY WHILE ON ANTIBIOTICS AND AT LEAST 1 WEEK LATER. FOLLOW UP WITH DR. CHAVEZ ON Thursday10/13/17 AT 3:00PM. Current Hospital Diet Patient's current hospital diet: Diabetes Type 2 Diet, AHA Diet (Heart Healthy) Discharge Diet Recommended Diet: AHA Diet (Heart Healthy), Diabetes Type 2 Diet Procedures Procedures Performed: CHEST XRAY Pending Studies Studies pending at discharge: yes List of pending studies: REPEAT BLOOD WORK C/O PRIMARY CARE PHYSICIAN. Laboratory Results Hemoglobin A1c Test 08/26/17 05:17 Range/Units Estimated Average Glucose 266 mg/dl Hemoglobin A1c 10.9 H 4.5-5.6 % Medical Emergencies . Who to Call and When: Medical Emergencies: If at any time you feel your situation is an emergency, please call 911 immediately. . Non-Emergent Contact Non-Emergency issues call your: Primary Care Provider Call Non-Emergent contact if: you have a fever, you have any medication questions . . "Provider Documentation" section prepared by Saul Conrad. . VTE Core Measure Inpt VTE Proph given/why not?: Unfractionated heparin SQ
--- NOTE | 2017-10-08 10:39 | Discharge Summary ---
Discharge Summary Date of Service Oct 08, 2017. Discharge Summary Admission Date: Oct 05, 2017 at 16:21 Discharge Date: Oct 08, 2017 Discharge Disposition: Home with services Principal Diagnosis: Acute, complicated bronchitis Procedures: CHEST ONE VIEW PORTABLE HISTORY: Sepsis COMPARISON: None. FINDINGS: The lungs are clear. Cardiac silhouette is normal in size. No pleural effusions. No pneumothorax. Right jugular catheter terminates in the SVC. IMPRESSION: No significant change compared to the prior study. No acute process. Pending Studies/Follow-Up: Repeat Crea on ff up. Please refer to hospital course below. Medication Reconciliation New Medications: Prednisone (Prednisone) 10 Mg Tab 1 TAB PO UD for 8 Days, #15 TABS take 4 tabs po daily x 2 days, then take 2 tabs po daily x 2 days, then take 1 tab po daily x 2 days, then take 1/2 tab po daily x 2 days, then stop Benzonatate (Benzonatate) 100 Mg Cap 100 MG PO TID PRN for cough for 7 Days, #21 CAP 0 Refills Levofloxacin (Levofloxacin) 250 Mg Tab 250 MG PO DAILY@11 for 3 Days, #3 TAB 0 Refills to start on 10/09/17 Changed Medications: Ipratropium-Albuterol (Duoneb) 3 Ml Nebu 1 TREATMENT INH TID for 7 Days, #21 INHA 2 Refills (Changed from: Q4H; Removed Reason; Refills: ) may also use q4h as needed for shortness of breath/wheezing Continued Medications: Amlodipine (Norvasc) 10 Mg Tab 10 MG PO DAILY for 30 Days, #30 TAB Aspirin (Aspirin) 81 Mg Tab 81 MG PO QAM, 3 Refills Atorvastatin (Atorvastatin Calcium) 10 Mg Tab 10 MG PO QPM Budesonide (Inhalation) (Pulmicort) 1 Mg/2 Ml Alisson 0.5 MG INH BID for 5 Days, #10 UNITS 2 Refills (This prescription has been renewed) Clopidogrel (Plavix) 75 Mg Tab 75 MG PO QAM, TAB Dicyclomine HCl (Dicyclomine HCl) 10 Mg Cap 10 MG PO TID PRN for Pain for 7 Days, #21 TABS Docusate Sodium (Colace) 100 Mg Cap 100 MG PO BID PRN for Constipation Escitalopram (Lexapro) 10 Mg Tab 10 MG PO QAM, TAB Escitalopram Oxalate (Lexapro) 5 Mg Tab 5 MG PO QAM, TAB Gabapentin (Neurontin) 400 Mg Cap 400 MG PO BID, CAP AT BREAKFAST AND AT BEDTIME Insulin Aspart (Novolog) 100 Units/Ml Inj SQ ACHS for SLIDING SCALE Insulin Isophan/Regular (Novolin 70/30) Susp 80 UNITS SC BID, BTL Lorazepam (Ativan) 0.5 Mg Tab 0.5 MG PO Q6H PRN for Anxiety, TAB Losartan Potassium (Cozaar) 50 Mg Tab 100 MG PO QAM for 30 Days, #60 TAB Magnesium Oxide (Mag-Ox) 400 Mg Tab 400 MG PO QAM, TAB Metoprolol Tartrate (Lopressor) (Lopressor) 50 Mg Tab 50 MG PO BID, TAB Mirtazapine (Remeron) 30 Mg Tab 30 MG PO HS, #30 Omeprazole (Prilosec) 40 Mg Cap 40 MG PO QAM, CAP Pancrelipase (Lipase-Protease- (Creon) 1 Cap Cap 6000 UNITS PO QID Ranitidine (Zantac) 150 Mg Tab 75 MG PO BID, TAB Ropinirole Hydrochloride (Requip) 1 Mg Tab 1 MG PO HS for 30 Days, TAB 2 Refills Trazodone Hcl (Trazodone) 50 Mg Tab 50 MG PO HS, TAB Discontinued Medications: Chlorthalidone (Chlorthalidone) 25 Mg Tab 25 MG PO DAILY for 30 Days, #30 TABS Admission Information HPI (per Admitting provider): Pt is 77y/o F with PMH asthma, anxiety, insulin dependent DM II, HTN, hx CVA, hx recurrent pancreatitis presented to ER with c/o cough, WALKER, SOB and fever x 1 day. Pt states yesterday started with tactile fever, chills, dry cough, wheezing , SOB, chest tightness. She tried using her duonebs and started using her Pulmicort neb without much relief. Pt does not use oxygen at home. Pt reports BS have been uncontrolled and running 400-500 and she was started on insulin NPH by PCP. States fasting BS this am was 326. Hx recent hospitalizations due to pancreatitis and had ERCP 08/2017. States still with some upper abdominal discomfort intermittently, but denies any worsening. Denies ill contacts. Denies N/V/D/C, dizziness, syncope, vision changes, neck pain, hemoptysis, orthopnea, palpitations, sore throat, choking, otalgia, rhinorrhea, paresthesias , weakness, extremity weakness, extremity edema, rashes, urinary symptoms. In ER Temp: 38.2, BP initially 205/91 down to 146/66, pulse initially 114 down to 101, Resp: 22-24, Pulse ox: 96% on RA. WBC: 13.3, Neut:8.8, POC lactic acid: 2.8, glucose:221, negative CXR. pending blood cultures given motrin 600mg and tylenol 1 gram. Duoneb treatment with some relief of SOB and relief of wheezing. Physical Exam (per Admitting): General Appearance: WD/WN, + pertinent finding (+repetitive coughing) Head: normocephalic, atraumatic Eyes: normal inspection, EOMI, sclerae normal ENT: hearing grossly normal, TMs normal, pharynx normal, + pertinent finding (no significant nasal discharge) Neck: supple, no adenopathy, no JVD, trachea midline Respiratory/Chest: chest non-tender, no respiratory distress, no accessory muscle use, + pertinent finding (mildly diminished breath sounds throughout, no rales, rhonchi or wheezing at time of exam) Cardiovascular: regular rate, rhythm, no edema Abdomen/GI: normal bowel sounds, non tender, soft Extremities/Musculoskelatal: normal inspection, no pedal edema, non-tender Skin: normal color, warm/dry, no rash Hospital Course Acute, complicated bronchitis -- CXR: no signs of pneumonia Flu negative -- improved gradually, wheezing resolved given Nebs q4h, Levaquin, Solumedrol 40mg IV q8h, Hycodan, Pulmicort -- discharge plan: Prednisone taper starting at 40mg po daily Levaquin 250mg po daily x 3 days to complete 5 days therapy Nebs TID x 5 days at least and PRN Pulmicort BID x 5 days at least -- Home health services PCP next week Acute Renal Failure -- held Chlorthalidone and Losartan given IV fluids -- crea improved from 1.4 to 1.2 hold Chlorthalidone until ff up with PCP Insulin Dependent DM2 -- Pharmacy consulted on Lantus BID, ISS HTN continue usual medications monitor crea as outpatient Hx. of CVA continue Plavix, statin Recurrent Pancreatitis stable, on pancrelipase Disposition d/c home with home health services ff up with PCP in 3-5 days Total time spent on discharge = 35 minutes This includes examination of the patient, discharge planning, medication reconciliation, and communication with other providers. Discharge Instructions Discharge Instructions Date of Service Oct 08, 2017. Admission Reason for Admission: Fever, Sob Discharge Discharge Diagnosis / Problem: ACUTE BRONCHITIS Discharge Goals Goal(s): Diagnostic testing, Therapeutic intervention Activity Recommendations Activity Limitations: as noted below (NO HEAVY EXERTION UNTIL RE-EVALUATED BY PRIMARY CARE PHYSICIAN) . Instructions / Follow-Up Instructions / Follow-Up PLEASE REVIEW YOUR NEW MEDICATION LIST AND FOLLOW INSTRUCTIONS CAREFULLY. CALL YOU PRIMARY CARE PHYSICIAN OR RETURN TO THE ER IMMEDIATELY IF WITH RECURRENCE OF SYMPTOMS, INCREASING COUGH, SHORTNESS OF BREATH, FEVER/CHILLS, LEG SWELLING. ENSURE ADEQUATE DAILY FLUID INTAKE. TAKE YOGURT EVERYDAY WHILE ON ANTIBIOTICS AND AT LEAST 1 WEEK LATER. FOLLOW UP WITH DR. CHAVEZ ON Thursday10/13/17 AT 3:00PM. Current Hospital Diet Patient's current hospital diet: Diabetes Type 2 Diet, AHA Diet (Heart Healthy) Discharge Diet Recommended Diet: AHA Diet (Heart Healthy), Diabetes Type 2 Diet Procedures Procedures Performed: CHEST XRAY Pending Studies Studies pending at discharge: yes List of pending studies: REPEAT BLOOD WORK C/O PRIMARY CARE PHYSICIAN. Laboratory Results Hemoglobin A1c Test 08/26/17 05:17 Range/Units Estimated Average Glucose 266 mg/dl Hemoglobin A1c 10.9 H 4.5-5.6 % Medical Emergencies . Who to Call and When: Medical Emergencies: If at any time you feel your situation is an emergency, please call 911 immediately. . Non-Emergent Contact Non-Emergency issues call your: Primary Care Provider Call Non-Emergent contact if: you have a fever, you have any medication questions . . "Provider Documentation" section prepared by Saul Conrad. . VTE Core Measure Inpt VTE Proph given/why not?: Unfractionated heparin SQ
[2017-10-08 10:51] VITALS: BP 138/72; PULSE 74; TEMP 36.5; O2SAT 98
[2017-10-08] MEDS ORDERED: LEVOFLOXACIN 250 MG TAB PO SCH (11:00)
[2017-10-08 11:11] VITALS: PULSE 67; O2SAT 97
== END 2017-10-08 12:15 | disposition home health service (06) | DRG 202 ==
LOC: C.EDB 13:23 → C.MED 16:21 → ENRESERV 17:20
PROVIDERS: ADMIT Family Medicine; ATTEND Internal Medicine
DX: J20.9 Acute bronchitis, unspecified (principal); K86.1 Other chronic pancreatitis; R65.10 Systemic inflammatory response syndrome (SIRS) of non-infectious origin without acute organ dysfunction; J44.9 Chronic obstructive pulmonary disease, unspecified; F41.9 Anxiety disorder, unspecified; I12.9 Hypertensive chronic kidney disease with stage 1 through stage 4 chronic kidney disease, or unspecified chronic kidney disease; N18.3 Chronic kidney disease, stage 3 (moderate); F32.9 Major depressive disorder, single episode, unspecified; G62.9 Polyneuropathy, unspecified; E11.9 Type 2 diabetes mellitus without complications; G47.00 Insomnia, unspecified; Z98.51 Tubal ligation status; Z86.73 Personal history of transient ischemic attack (TIA), and cerebral infarction without residual deficits; Z79.82 Long term (current) use of aspirin; Z79.4 Long term (current) use of insulin; Z83.3 Family history of diabetes mellitus

== ENCOUNTER 2017-10-15 21:07 | Emergency (ER) | payer OTHER, MEDICARE ==
[~2017-10-15] VITALS: Ht 172.7 cm; Wt 73.6 kg
[~2017-10-15 21:07] MED LIST changes: +BENZ100C7 PO; -CIPR-255 PO; -HYG25 PO; +LVQ250 PO; +PRD10 PO; -TRAM-10 PO
[2017-10-15 21:16] VITALS: TEMP 37.4; Ht 172.7 cm; Wt 73.6 kg
[2017-10-15] MEDS ORDERED: ALBUT/IPRATROP 3MG/0.5MG NEB 3 ML VIAL INH STA (21:31)
[2017-10-15 21:40] VITALS: O2SAT 100
[2017-10-15 21:50] LABS: BASO % 0.1 %; BASO ABS # 0.02 K/uL (0-0.2); COMPLETE YES; EOS % 1.3 %; IG% 0.5 %; LYMPH % 15.9 %; MEAN CELL VOLUME 90.9 fL (80-100); MEAN CORPUSCULAR HEMOGLOBIN 30.9 pg (25-34); MEAN PLATELET VOLUME 9.5 fL (7.4-10.4); MONO % 5.6 %; NEUT % 76.6 %; PLATELET COUNT 185 K/uL (130-400); RED BLOOD COUNT 3.85 M/uL (4.2-5.4); WHITE BLOOD COUNT 20.71 K/uL (4.8-10.8)
[2017-10-15 22:00] LABS: PARTIAL THROMBOPLASTIN RATIO 0.9; PROTHROMBIN TIME (PATIENT) 10.6 SECONDS (9.0-12.0)
--- NOTE | 2017-10-15 22:02 | DIAGNOSTIC IMAGING REPORT ---
CHEST ONE VIEW PORTABLE CLINICAL HISTORY: Shortness of breath COMPARISON STUDY: 10/06/2017 FINDINGS: The heart is mildly enlarged. A right-sided A-Port catheter is visualized. There is mild residual thickening. There is no lobar consolidation. A right midlung zone opacity, is felt to represent overlying tubing. No pleural effusions are visualized.[ IMPRESSION: 1. Mild cardiomegaly 2. Mild interstitial thickening without evidence of overt failure 3. No evidence of lobar consolidation Electronically signed by: Dipak Velasquez M.D. 10/15/2017 10:01 PM Dictated Date/Time: 10/15/2017 9:59 PM
[2017-10-15] MEDS ORDERED: HYDR5SYP11 PO (22:03)
[2017-10-15 22:17] LABS: ALB/GLOB RATIO 0.9 (0.9-2); ALKALINE PHOSPHATASE 102 U/L (45-117); ALT/SGPT 31 U/L (12-78); AST/SGOT 16 U/L (15-37); BLOOD UREA NITROGEN 22 mg/dl (7-18); BUN/CREATININE RATIO 13.6 (10-20); CALCIUM 8.4 mg/dl (8.5-10.1); CARBON DIOXIDE 21 mmol/L (21-32); CHLORIDE 99 mmol/L (98-107); CREATININE 1.63 mg/dl (0.60-1.20); POTASSIUM 4.1 mmol/L (3.5-5.1); SODIUM 132 mmol/L (136-145)
[2017-10-15 22:18] LABS: GLUCOSE 460 mg/dl (70-99)
--- NOTE | 2017-10-15 22:22 | DIAGNOSTIC IMAGING REPORT ---
CT SCAN OF THE ABDOMEN AND PELVIS WITHOUT CONTRAST CLINICAL HISTORY: Generalized abdominal pain and shortness of breath COMPARISON STUDY: 09/10/2017 TECHNIQUE: CT scan of the abdomen and pelvis was performed from the lung bases to the proximal femurs. Images are reviewed in the axial, sagittal, and coronal planes. IV contrast was not administered for this examination. A dose lowering technique was utilized adhering to the principles of ALARA. CT DOSE: 481.63 mGy.cm FINDINGS: Lower chest: There are coronary artery calcifications present. There are dependent atelectatic changes. Liver: There is mild hepatic steatosis. Gallbladder: Surgically absent Spleen: Normal in size and attenuation. Pancreas: There is a pancreaticoduodenal stent present. No pancreatic masses are visualized. There are few tiny calcifications in the region of the uncinate process. There is a probable 8 mm cyst arising from the uncinate process. This likely represents a side branch IPMN. This remains unchanged from January 2017 Adrenal glands: Unremarkable. Kidneys: No renal, ureteral, or bladder calculi are visualized. Bowel: There are no transition zones indicate bowel obstruction. There is colonic diverticulosis. There are no peridiverticular inflammatory changes. There is no evidence of acute appendicitis. Peritoneum: There is no intraperitoneal free air or abdominal ascites. Vasculature: The abdominal aorta is normal in course and caliber. Adenopathy: None. Pelvic viscera: The bladder, and pelvic viscera are unremarkable. Skeletal structures: No destructive osseous lesions are seen. IMPRESSION: 1. No renal, ureteral, or bladder calculi identified 2. No evidence of bowel obstruction. No evidence of free air 3. No evidence of acute appendicitis. No evidence of acute diverticulitis 4. Surgically absent gallbladder 5. Interval placement of a pancreaticoduodenal stent 6. Mild hepatic steatosis 7. Stable 8 mm uncinate pancreatic head cyst, likely representing an IPMN Electronically signed by: Dipak Velasquez M.D. 10/15/2017 10:21 PM Dictated Date/Time: 10/15/2017 10:14 PM
[2017-10-15 22:32] LABS: BETA-HYDROXYBUTYRATE 1.48 mg/dL (0.2-2.81)
[2017-10-15 22:50] VITALS: PULSE 95
[2017-10-15] MEDS ORDERED: ACETAMINOPHEN 500 MG TAB PO STA (23:34)
[2017-10-15] MEDS ORDERED: NovoLIN-R INSULIN PER UNIT CHARGE SC STA (23:34)
--- NOTE | 2017-10-15 23:40 | EMERGENCY ROOM VISIT NOTE ---
History Report prepared by Coral: Zain Mims Under the Supervision of: Dr. Ghassan Herrera D.O. First contact with patient: 21:30 Chief Complaint: SHORTNESS OF BREATH Stated Complaint: CHEST PAIN/DIFF BREATHING Nursing Triage Summary: Patient arrived via EMS. EMS reports patient was at home tonight and developed SOB with a cough. Patient developed chest pain with the coughing, that improves when coughing stops. Patient reports a history of COPD and HTN. Patient was to see doctor earlier this week for right leg swelling and errethema to check for DVT but patient cancelled apointment. History of Present Illness The patient is a 77 year old female who presents to the Emergency Room with complaints of persistent shortness of breath occurring earlier tonight. Additionally, the patient has been having a cough, some mild chest pain, and abdominal pain. The patient has a history of COPD and HTN. She has a history of a cholecystectomy and a stent in the pancreas. Source of History: patient Onset: earlier tonight Position: other (global) Quality: other (shortness of breath) Timing: other (persistent ) Associated Symptoms: + cough, + chest pain, + abdominal pain Review of Systems See HPI for pertinent positives & negatives. A total of 10 systems reviewed and were otherwise negative. 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 (12) Depression (13) Diabetes mellitus type 2 (14) Diabetic neuropathy (15) DKA (diabetic ketoacidoses) (16) Dyslipidemia (17) Esophageal dysmotility (18) Fatty liver (19) Fever (20) Gastroparesis (21) Giant cell arteritis (22) History of sleep apnea (23) Hypertensive urgency (24) Insomnia (25) Ischemic stroke (26) Pancreatic divisum (27) Sciatica (28) SOB (shortness of breath) (29) TIA (transient ischemic attack) Surgical Problems: (1) cataract surgery (2) H/O esophagogastroduodenoscopy (3) History of - tubal ligation (4) History of cholecystectomy (5) History of ERCP (6) S/P ERCP (7) S/P ERCP (8) S/p fixation of left ankle fracture Family History Diabetes mellitus GRANDMOTHER MOTHER FH: Parkinson's disease Hypertension Stroke GRANDFATHER Social History Smoking Status: Former Smoker Alcohol Use: none Drug Use: none Marital Status: Housing Status: lives alone Occupation Status: retired Current/Historical Medications Scheduled Amlodipine (Norvasc), 10 MG PO DAILY Aspirin (Aspirin), 81 MG PO QAM Atorvastatin (Atorvastatin Calcium), 10 MG PO QPM Budesonide (Inhalation) (Pulmicort), 0.5 MG INH BID Clopidogrel (Plavix), 75 MG PO QAM Escitalopram (Lexapro), 10 MG PO QAM Escitalopram Oxalate (Lexapro), 5 MG PO QAM Gabapentin (Neurontin), 400 MG PO BID Hydrocodone W/ Homatropine (Hycodan 5/1.5MG 5 Ml), PO UD Insulin Aspart (Novolog), SQ ACHS Insulin Isophan/Regular (Novolin 70/30), 80 UNITS SC BID Ipratropium-Albuterol (Duoneb), 1 TREATMENT INH TID Losartan Potassium (Cozaar), 100 MG PO QAM Magnesium Oxide (Mag-Ox), 400 MG PO QAM Metoprolol Tartrate (Lopressor) (Lopressor), 50 MG PO BID Mirtazapine (Remeron), 30 MG PO HS Omeprazole (Prilosec), 40 MG PO QAM Pancrelipase (Lipase-Protease- (Creon), 6,000 UNITS PO QID Prednisone (Prednisone), 1 TAB PO UD Ranitidine (Zantac), 75 MG PO BID Ropinirole Hydrochloride (Requip), 1 MG PO HS Trazodone Hcl (Trazodone), 50 MG PO HS Scheduled PRN Dicyclomine HCl (Dicyclomine HCl), 10 MG PO TID PRN for Pain Docusate Sodium (Colace), 100 MG PO BID PRN for Constipation Lorazepam (Ativan), 0.5 MG PO Q6H PRN for Anxiety Allergies Coded Allergies: Iodinated Diagnostic Agents (Verified Allergy, Severe, RASH TO IVP DYE, NAUSEA, FAINTING, COUGHING, GAGGING, HEADACH, 10/05/17) Sulfa Antibiotics (Verified Allergy, Severe, HIVES, FACIAL AND ARM SWELLING, 10/05/17) Cerivastatin (Verified Allergy, Intermediate, HIVES, 10/05/17) Codeine (Verified Allergy, Intermediate, "PRICKLY RASH", 10/05/17) Hydroxyzine (Verified Allergy, Intermediate, N/V, 10/05/17) Latex1 -Allergic Contact Dermititis (Verified Allergy, Intermediate, DERMATITIS-PT TOLERATED A LATEX CATHETER 03/26/08, 10/05/17) Diphenhydramine (Verified Allergy, Mild, RASH; SLEEPINESS WITH "PHARBEDRYL ", 10/05/17) Loratadine (Verified Allergy, Mild, HIVES, 10/05/17) Sulfamethoxazole w/Trimethoprim (Verified Allergy, Mild, RASH, 10/05/17) Prednisone (Verified Allergy, Unknown, unknown, 10/15/17) Tetanus Toxoid (Verified Adverse Reaction, Intermediate, SWELLING AT INJECTION SITE, 10/05/17) Alprazolam (Verified Adverse Reaction, Unknown, "SLEEPY STUPER", 10/05/17) Metformin (Verified Adverse Reaction, Unknown, DIARRHEA, 10/05/17) Morphine (Verified Adverse Reaction, Unknown, VOMITING, 10/05/17) Simvastatin (Verified Adverse Reaction, Unknown, COUGH, "DISCOMFORT", ) Physical Exam Vital Signs Date Time Temp Pulse Resp B/P (MAP) Pulse Ox O2 Delivery O2 Flow Rate FiO2 10/15/17 22:50 95 22 98 Nasal Cannula 2.0 10/15/17 21:40 100 Nebulizer 10/15/17 21:29 91 10/15/17 21:16 96 Room Air 10/15/17 21:16 37.4 95 24 154/90 96 Room Air 10/15/17 21:16 96 Room Air Physical Exam CONSTITUTIONAL/VITAL SIGNS: Reviewed / noted above. GENERAL: Non-toxic in appearance. INTEGUMENTARY: Warm, dry, and Alexis. HEAD: Normocephalic. EYES: without scleral icterus or trauma. ENT/OROPHARYNX: clear and moist. LYMPHADENOPATHY/NECK: Is supple without lymphadenopathy or meningismus. RESPIRATORY: Lungs clear and equal. CARDIOVASCULAR: Regular rate and rhythm. GI/ABDOMEN: Mildly diffuse tenderness to the abdomen. Soft. No organomegaly or pulsatile mass. No rebound or guarding. Normal bowel sounds. EXTREMITIES: Warm and well perfused. BACK: No CVA tenderness. NEUROLOGICAL: Intact without focal deficits. PSYCHIATRIC: normal affect. MUSCULOSKELETAL: Normally developed with good muscle tone. Medical Decision & Procedures ER Provider Diagnostic Interpretation: Radiology results as stated below per my review and radiologist interpretation: CHEST ONE VIEW PORTABLE CLINICAL HISTORY: Shortness of breath COMPARISON STUDY: 10/06/2017 FINDINGS: The heart is mildly enlarged. A right-sided A-Port catheter is visualized. There is mild residual thickening. There is no lobar consolidation. A right midlung zone opacity, is felt to represent overlying tubing. No pleural effusions are visualized.[ IMPRESSION: 1. Mild cardiomegaly 2. Mild interstitial thickening without evidence of overt failure 3. No evidence of lobar consolidation Electronically signed by: Dipak Velasquez M.D. 10/15/2017 10:01 PM Dictated Date/Time: 10/15/2017 9:[address] SCAN OF THE ABDOMEN AND PELVIS WITHOUT CONTRAST CLINICAL HISTORY: Generalized abdominal pain and shortness of breath COMPARISON STUDY: 09/10/2017 TECHNIQUE: CT scan of the abdomen and pelvis was performed from the lung bases to the proximal femurs. Images are reviewed in the axial, sagittal, and coronal planes. IV contrast was not administered for this examination. A dose lowering technique was utilized adhering to the principles of ALARA. CT DOSE: 481.63 mGy.cm FINDINGS: Lower chest: There are coronary artery calcifications present. There are dependent atelectatic changes. Liver: There is mild hepatic steatosis. Gallbladder: Surgically absent Spleen: Normal in size and attenuation. Pancreas: There is a pancreaticoduodenal stent present. No pancreatic masses are visualized. There are few tiny calcifications in the region of the uncinate process. There is a probable 8 mm cyst arising from the uncinate process. This likely represents a side branch IPMN. This remains unchanged from January 2017 Adrenal glands: Unremarkable. Kidneys: No renal, ureteral, or bladder calculi are visualized. Bowel: There are no transition zones indicate bowel obstruction. There is colonic diverticulosis. There are no peridiverticular inflammatory changes. There is no evidence of acute appendicitis. Peritoneum: There is no intraperitoneal free air or abdominal ascites. Vasculature: The abdominal aorta is normal in course and caliber. Adenopathy: None. Pelvic viscera: The bladder, and pelvic viscera are unremarkable. Skeletal structures: No destructive osseous lesions are seen. IMPRESSION: 1. No renal, ureteral, or bladder calculi identified 2. No evidence of bowel obstruction. No evidence of free air 3. No evidence of acute appendicitis. No evidence of acute diverticulitis 4. Surgically absent gallbladder 5. Interval placement of a pancreaticoduodenal stent 6. Mild hepatic steatosis 7. Stable 8 mm uncinate pancreatic head cyst, likely representing an IPMN Electronically signed by: Dipak Velasquez M.D. 10/15/2017 10:21 PM Dictated Date/Time: 10/15/2017 10:14 PM Laboratory Results 10/15/17 21:30 Red Blood Count 3.85, Mean Corpuscular Volume 90.9, Mean Corpuscular Hemoglobin 30.9, Mean Corpuscular Hemoglobin Concent 34.0, Mean Platelet Volume 9.5, Neutrophils (%) (Auto) 76.6, Lymphocytes (%) (Auto) 15.9, Monocytes (%) (Auto) 5.6, Eosinophils (%) (Auto) 1.3, Basophils (%) (Auto) 0.1, Neutrophils # (Auto) 15.88, Lymphocytes # (Auto) 3.30, Monocytes # (Auto) 1.15, Eosinophils # (Auto) 0.26, Basophils # (Auto) 0.02 10/15/17 21:30 Test 10/15/17 21:30 White Blood Count 20.71 K/uL (4.8-10.8) Red Blood Count 3.85 M/uL (4.2-5.4) Hemoglobin 11.9 g/dL (12.0-16.0) Hematocrit 35.0 % (37-47) Mean Corpuscular Volume 90.9 fL (80-100) Mean Corpuscular Hemoglobin 30.9 pg (25-34) Mean Corpuscular Hemoglobin Concent 34.0 g/dl (32-36) Platelet Count 185 K/uL (130-400) Mean Platelet Volume 9.5 fL (7.4-10.4) Neutrophils (%) (Auto) 76.6 % Lymphocytes (%) (Auto) 15.9 % Monocytes (%) (Auto) 5.6 % Eosinophils (%) (Auto) 1.3 % Basophils (%) (Auto) 0.1 % Neutrophils # (Auto) 15.88 K/uL (1.4-6.5) Lymphocytes # (Auto) 3.30 K/uL (1.2-3.4) Monocytes # (Auto) 1.15 K/uL (0.11-0.59) Eosinophils # (Auto) 0.26 K/uL (0-0.5) Basophils # (Auto) 0.02 K/uL (0-0.2) RDW Standard Deviation 44.0 fL (36.4-46.3) RDW Coefficient of Variation 13.4 % (11.5-14.5) Immature Granulocyte % (Auto) 0.5 % Immature Granulocyte # (Auto) 0.10 K/uL (0.00-0.02) Prothrombin Time 10.6 SECONDS (9.0-12.0) Prothromb Time International Ratio 1.0 (0.9-1.1) Activated Partial Thromboplast Time 24.0 SECONDS (21.0-31.0) Partial Thromboplastin Ratio 0.9 Anion Gap 12.0 mmol/L (3-11) Est Creatinine Clear Calc Drug Dose 29.1 ml/min Estimated GFR () 34.9 Estimated GFR (Non- 30.1 BUN/Creatinine Ratio 13.6 (10-20) Calcium Level 8.4 mg/dl (8.5-10.1) Total Bilirubin 0.4 mg/dl (0.2-1) Aspartate Amino Transf (AST/SGOT) 16 U/L (15-37) Alanine Aminotransferase (ALT/SGPT) 31 U/L (12-78) Alkaline Phosphatase 102 U/L (45-117) Total Creatine Kinase 42 U/L (26-192) Creatine Kinase MB < 0.5 ng/ml (0.5-3.6) Creatine Kinase MB Ratio (0-3.0) Troponin I < 0.015 ng/ml (0-0.045) Total Protein 6.4 gm/dl (6.4-8.2) Albumin 3.0 gm/dl (3.4-5.0) Globulin 3.4 gm/dl (2.5-4.0) Albumin/Globulin Ratio 0.9 (0.9-2) Lipase 189 U/L (73-393) Beta-Hydroxybutyric Acid 1.48 mg/dL (0.2-2.81) Laboratory results as stated above per my review. Medications Administered Medications (Trade) Dose Ordered Sig/Rosetta Route Start Time Stop Time Status Last Admin Dose Admin Albuterol/ Ipratropium (Duoneb) 3 ml NOW STAT INH 10/15/17 21:31 10/15/17 21:33 DC 10/15/17 21:39 3 ML Insulin Human Regular (novoLIN-R U-100 PER UNIT) 8 units NOW STAT SC 10/15/17 23:34 10/15/17 23:36 DC 10/15/17 23:46 8 UNITS Acetaminophen (Tylenol Tab) 1,000 mg NOW STAT PO 10/15/17 23:34 10/15/17 23:36 DC 10/15/17 23:47 1,000 MG ECG Indication: SOB/dyspnea Rate (beats per minute): 96 Rhythm: normal sinus Findings: no ectopy, other (No acute injury) ED Course 2129: Previous medical records were reviewed. The patient was evaluated in room B9. A complete history and physical examination was performed. 2130: DuoNeb 3ml INH 2334: Tylenol Tab 1000mg PO 2340: On reevaluation, the patient is doing well. I discussed the results and findings with the patient. She verbalized agreement of the treatment plan. She was discharged home. Medical Decision the differential was considered includes acute myocardial infarction, acute coronary syndrome, myocarditis, pericarditis, pericardial effusions /tamponade, esophageal perforation, pulmonary embolism, pneumonia, pneumothorax, cardiomyopathy, congestive heart, anemia , COPD/asthma exacerbation. This is a 77-year-old female who presents to the ED with a chief complaint of shortness of breath. The patient began having the symptoms tonight. Further details listed above. Her vital signs are normal. Physical exam is noted. Patient's laboratory studies reveal a white blood cell count 20.7. The patient states that she is on her seventh day of steroids out of 10. Glucose is 460. This is likely related to the prednisone as well. Complete bed about panel was unremarkable, troponin was negative, lipase is negative. Chest x-ray did not show acute disease. The patient did have some abdominal discomfort on exam. CT scan of the abdomen did not show acute process. The patient was told the results of the tests. She was given a breathing treatment. She was also given some Tylenol for headache and insulin for her hyperglycemia. The patient was sleeping and breathing comfortably with good oxygen saturations at the time of disposition. She is felt to be stable for discharge. Medication Reconcilliation Current Medication List: was personally reviewed by me Blood Pressure Screening Patient's blood pressure: Elevated blood pressure Blood pressure disposition: Elevated BP felt to be situational Impression Primary Impression: COPD exacerbation Scribe Attestation The scribe's documentation has been prepared under my direction and personally reviewed by me in its entirety. I confirm that the note above accurately reflects all work, treatment, procedures, and medical decision making performed by me. Departure Information Dispostion Home / Self-Care Referrals Colleen Jefferson D.O. (PCP) Forms HOME CARE DOCUMENTATION FORM, IMPORTANT VISIT INFORMATION Patient Instructions My [facility] Additional Instructions Follow-up with your doctor for further care and evaluation in 1-2 days. Return to the emergency department for worsening or new symptoms or any concerns. You have been examined and treated today on an emergency basis only. This is not a substitute for, or an effort to provide, complete comprehensive medical care. It is impossible to recognize and treat all injuries or illnesses in a single emergency department visit. It is therefore important that you follow up closely with your doctor. Call as soon as possible for an appointment. Check your blood sugars regularly and use your sliding scale insulin for high blood sugars.
[2017-10-16 00:25] VITALS: BP 197/83; O2SAT 96
== END 2017-10-16 00:27 | disposition home or self-care (01) ==
LOC: EDBD 21:07 → C.EDB 21:09
DX: J44.1 Chronic obstructive pulmonary disease with (acute) exacerbation (principal); K85.90 Acute pancreatitis without necrosis or infection, unspecified; F41.9 Anxiety disorder, unspecified; I12.9 Hypertensive chronic kidney disease with stage 1 through stage 4 chronic kidney disease, or unspecified chronic kidney disease; N18.3 Chronic kidney disease, stage 3 (moderate); Z86.73 Personal history of transient ischemic attack (TIA), and cerebral infarction without residual deficits; E11.22 Type 2 diabetes mellitus with diabetic chronic kidney disease; E78.5 Hyperlipidemia, unspecified; K31.84 Gastroparesis; G47.30 Sleep apnea, unspecified; M31.6 Other giant cell arteritis; G47.00 Insomnia, unspecified; Z83.3 Family history of diabetes mellitus; Z82.49 Family history of ischemic heart disease and other diseases of the circulatory system; Z87.891 Personal history of nicotine dependence; Z79.82 Long term (current) use of aspirin; Z79.02 Long term (current) use of antithrombotics/antiplatelets; Z79.4 Long term (current) use of insulin; Z79.52 Long term (current) use of systemic steroids; Z79.899 Other long term (current) drug therapy

== ENCOUNTER 2017-12-18 08:36 | Inpatient (IN) | payer OTHER, MEDICARE ==
[2017-12-08 10:56] VITALS: BMI 31.0
[~2017-12-18] VITALS: Ht 152.4 cm; Wt 75.8 kg
[2017-12-18] VITALS (9 sets, daily range): BP systolic 126–199; BP diastolic 73–104; PULSE 59–76; TEMP 36.5–37; O2SAT 94–98; BMI 31.0; BMI 31.3
[~2017-12-18 08:36] MED LIST changes: +AMLO-110 PO; -AMLO-114 PO; +ATROPINE SULFATE 0.1 MG/ML 5ML SYR IV PRN; -BENZ100C7 PO; -ESCI1TAB6 PO; +EpHEDrine SULFATE INJ 50 MG/ML AMP IV PRN; +LACTATED RINGER'S 1000ML 1,000 ML IV SCH; +LOSA100T65 PO; -LOSA50TA6 PO; -LVQ250 PO; +ONDANSETRON INJ 2 MG/ML 2 ML VIAL IV PRN; +PANT40TA PO; -PRD10 PO; +TRAM-10 PO; +VNTHFA/IN INH
[2017-12-18] MEDS ORDERED: LACTATED RINGER'S 1000ML 1,000 ML IV SCH ×3 (09:30→12:45)
[2017-12-18] MEDS ORDERED: INDOMETHACIN 50 MG SUPP PR ONE (09:30)
--- NOTE | 2017-12-18 10:18 | Endo History and Physical ---
History & Physical Date of Service: Dec 18, 2017. Chief Complaint: Recurrent pancreatitis Referring Physician: History of Present Illness Patient with a history of recurrent pancreatitis status post ERCP with pancreatic stent placement over 3 months ago. She has had no recurrent admissions since that time for pancreatitis. She was also found to have a 15 mm pancreatic cyst which could not be aspirated as she was on anticoagulation. Past Medical History Diabetes, Asthma, Anxiety, Reflux, High Cholesterol, Sleep Apnea, Hypertension, COPD, Kidney Disease, CVA/TIA, Depression Past Surgical History Hx Cardiac Surgery: No Hx Internal Defibrillator: No Hx Pacemaker: No Hx Abdominal Surgery: Yes (tate, tubal ligation) Hx Post-Op Nausea and Vomiting: No Hx Cancer Surgery: No Hx Thoracic Surgery: No Hx Orthopedic: Yes (L ankle ORIF AND L ANKLE HARDWARE REMOVAL, BLE fx repair) Hx Urinary Tract Surgery: No Social History Smoking Status: Former Smoker Hx Substance Use: No Hx Alcohol Use: No Allergies Coded Allergies: Iodinated Diagnostic Agents (Verified Allergy, Severe, RASH TO IVP DYE, NAUSEA, FAINTING, COUGHING, GAGGING, HEADACH, 12/18/17) Sulfa Antibiotics (Verified Allergy, Severe, HIVES, FACIAL AND ARM SWELLING, 12/18/17) Cerivastatin (Verified Allergy, Intermediate, HIVES, 12/18/17) Codeine (Verified Allergy, Intermediate, "PRICKLY RASH", 12/18/17) Hydroxyzine (Verified Allergy, Intermediate, N/V, 12/18/17) Latex1 -Allergic Contact Dermititis (Verified Allergy, Intermediate, DERMATITIS-PT TOLERATED A LATEX CATHETER 03/26/08, 12/18/17) Diphenhydramine (Verified Allergy, Mild, RASH; SLEEPINESS WITH "PHARBEDRYL ", 12/18/17) Loratadine (Verified Allergy, Mild, HIVES, 12/18/17) Sulfamethoxazole w/Trimethoprim (Verified Allergy, Mild, RASH, 12/18/17) Prednisone (Verified Allergy, Unknown, unknown, 12/18/17) Tetanus Toxoid (Verified Adverse Reaction, Intermediate, SWELLING AT INJECTION SITE, 12/18/17) Alprazolam (Verified Adverse Reaction, Unknown, "SLEEPY STUPER", 12/18/17) Metformin (Verified Adverse Reaction, Unknown, DIARRHEA, 12/18/17) Morphine (Verified Adverse Reaction, Unknown, VOMITING, 12/18/17) Simvastatin (Verified Adverse Reaction, Unknown, COUGH, "DISCOMFORT", 12/18) Current Medications Reported Home Medications Medications Dose Route/Sig Max Daily Dose Days Date Category Dose Instructions Protonix (Pantoprazole Sodium) 40 Mg Tab 40 Mg PO QPM 12/08/17 Reported Ventolin Hfa (Albuterol) 200 Puffs/58050 Mcg Aers 2 Puffs INH TID PRN 12/08/17 Reported Norvasc (Amlodipine Besylate) 5 Mg Tab 5 Mg PO QAM 12/08/17 Reported Ultram (Tramadol HCl) 50 Mg Tab 50 Mg PO HS PRN 12/08/17 Reported Cozaar (Losartan Potassium) 100 Mg Tab 100 Mg PO QAM 12/08/17 Reported Pulmicort (Budesonide (Inhalation)) 1 Mg/2 Ml Alisson 0.5 Mg INH BID 5 10/08/17 Rx Duoneb (Ipratropium-Albuterol) 3 Ml Nebu 1 Treatment INH TID 7 10/08/17 Rx may also use q4h as needed for shortness of breath/wheezing Dicyclomine HCl 10 Mg Cap 10 Mg PO TID PRN 7 09/18/17 Rx Lexapro (Escitalopram Oxalate) 10 Mg Tab 15 Mg PO QAM 09/08/17 Reported Prilosec (Omeprazole) 40 Mg Cap 40 Mg PO QAM 09/08/17 Reported Zantac (Ranitidine HCl) 150 Mg Tab 75 Mg PO BID 08/25/17 Reported Plavix (Clopidogrel Bisulfate) 75 Mg Tab 75 Mg PO QAM 08/06/17 Reported Novolog (Insulin Aspart) 100 Units/Ml Inj SQ ACHS 04/03/17 Reported Ativan (Lorazepam) 0.5 Mg Tab 0.5 Mg PO Q6H PRN 01/24/17 Reported Novolin 70/30 (Insulin Human Isoph/Insulin Regular) Susp 85 Units SC BID 01/24/17 Reported Creon (Pancrelipase (Lipase-Protease-) 1 Cap Cap 6,000 Units PO QID 01/24/17 Reported Trazodone (Trazodone HCl) 50 Mg Tab 50 Mg PO HS 01/24/17 Reported Lopressor (Metoprolol Tartrate) 50 Mg Tab 50 Mg PO QAM 01/24/17 Reported Mag-Ox (Magnesium Oxide) 400 Mg Tab 400 Mg PO QAM 01/24/17 Reported Remeron (Mirtazapine) 30 Mg Tab 30 Mg PO HS 07/19/16 Reported Neurontin (Gabapentin) 400 Mg Cap 400 Mg PO BID 05/18/16 Reported AT BREAKFAST AND AT BEDTIME Colace (Docusate Sodium) 100 Mg Cap 100 Mg PO BID PRN 01/28/16 Reported Requip (Ropinirole Hydrochloride) 1 Mg Tab 1 Mg PO HS 30 12/18/15 Reported Lipitor (Atorvastatin Calcium) 10 Mg Tab 10 Mg PO QPM 09/08/15 Reported Aspirin 81 Mg Tab 81 Mg PO QAM 07/17/15 Reported Vital Signs Weight (Kilograms): 72.73 Height (Feet): 5 Height (Inches): 0 Date Time Temp Pulse Resp B/P (MAP) Pulse Ox O2 Delivery O2 Flow Rate FiO2 12/18/17 09:05 36.9 76 18 199/94 (129) 98 Room Air 173/82 (112) Physical Exam General Appearance: no apparent distress Respiratory/Chest: Auscultation: deminished air movement Cardiovascular: Heart Auscultation: RRR, murmur Abdomen: Inspection & Palpation: soft Assessment and Plan Patient presents for follow-up ERCP today. We are also planning to do endoscopic ultrasound for aspiration of a suspicious appearing pancreatic cyst. We've discussed the risks of the procedures to include bleeding, infection, perforation, pancreatitis, and failed cannulation.
[2017-12-18] MEDS ORDERED: ALBUT/IPRATROP 3MG/0.5MG NEB 3 ML VIAL INH PRN (10:30)
[2017-12-18] MEDS ORDERED: CIPROFLOXACIN 400MG / 200ML D5W IV ONE (10:30)
[2017-12-18] MEDS ORDERED: FENTANYL CITRATE INJ 50 MCG/1 ML 2 ML VIAL ONE ×2 (10:33→11:51)
[2017-12-18] MEDS ORDERED: LIDOCAINE HCL 2% 2 ML VIAL (20MG/ML) ONE (11:26)
[2017-12-18] MEDS ORDERED: ROCURONIUM BROMIDE 10 MG/ML 5 ML VIAL IV ONE (11:26)
[2017-12-18] MEDS ORDERED: ONDANSETRON INJ 2 MG/ML 2 ML VIAL ONE (11:26)
[2017-12-18] MEDS ORDERED: SUCCINYLCHOLINE CHLORIDE 20 MG/ML 10 ML VIAL IV ONE (11:26)
[2017-12-18] MEDS ORDERED: PROPOFOL IV EMULSION 10 MG/ML 20 ML VIAL IV ONE (11:26)
[2017-12-18] MEDS ORDERED: EpHEDrine SULFATE INJ 50 MG/ML AMP ONE (11:27)
[2017-12-18] MEDS ORDERED: ONDANSETRON INJ 2 MG/ML 2 ML VIAL IV PRN ×2 (11:45→19:15)
--- NOTE | 2017-12-18 11:45 | [facility] Post Operative Brief Note ---
Immediate Operative Summary Operative Date Dec 18, 2017. Pre-Operative Diagnosis Pancreatic Cyst/Pancreatic stricture Post-Operative Diagnosis Pancreatic cyst / pancreatic stricture Procedure(s) Performed EUS with FNA ERCP with pancreatic stent placement / stricture dilation Surgeon Dr. Meche Mcfadden Shactor Surgeon(s) none Estimated Blood Loss 0 Findings Consistent with Post-Op Diagnosis Specimens 1) pancreatic cyst fluid Drains None Anesthesia Type General Complication(s) none Disposition Accompanied Pt To Recover: no Disposition: Recovery Room / PACU
--- NOTE | 2017-12-18 12:00 | GI REPORT ---
Procedure Date: 12/18/2017 10:32 AM Procedure: Upper EUS Indications: Pancreatic cyst on CT scan Medicines: Monitored Anesthesia Care, Cipro 400 mg IV Complications: No immediate complications. Estimated blood loss: Minimal. Estimated Blood Loss: Estimated blood loss was minimal. Procedure: Pre-Anesthesia Assessment: - Prior to the procedure, a History and Physical was performed, and patient medications, allergies and sensitivities were reviewed. The patient's tolerance of previous anesthesia was reviewed. - The risks and benefits of the procedure and the sedation options and risks were discussed with the patient. All questions were answered and informed consent was obtained. - Patient identification and proposed procedure were verified prior to the procedure by the physician, the nurse and the project management professional. The procedure was verified in the procedure room. - Pre-procedure physical examination revealed no contraindications to sedation. - ASA Grade Assessment: III - A patient with severe systemic disease. - After reviewing the risks and benefits, the patient was deemed in satisfactory condition to undergo the procedure. - The anesthesia plan was to use general anesthesia. - Immediately prior to administration of medications, the patient was re-assessed for adequacy to receive sedatives. - The heart rate, respiratory rate, oxygen saturations, blood pressure, adequacy of pulmonary ventilation, and response to care were monitored throughout the procedure. - The physical status of the patient was re-assessed after the procedure. After obtaining informed consent, the endoscope was passed under direct vision. Throughout the procedure, the patient's blood pressure, pulse, and oxygen saturations were monitored continuously. The Endosonoscope was introduced through the mouth, and advanced to the second part of duodenum. The upper EUS was accomplished without difficulty. The patient tolerated the procedure well. Findings: Endosonographic Finding : Evidence of a previous cholecystectomy was identified endosonographically. here was abnormal echogenicity in the visualized portion of the liver. This area was hyperechoic. There was no sign of significant endosonographic abnormality in the common bile duct. The maximum diameter of the duct was 6 mm. No stones and no biliary sludge were identified. Pancreatic parenchymal abnormalities were noted in the entire pancreas. These consisted of lobularity without honeycombing, cysts and hyperechoic strands. A stent was seen in the dorsal pancreatic duct. A hypoechoic lesion suggestive of a cyst was identified in the pancreatic head. It is not in obvious communication with the pancreatic duct. The lesion measured 14 mm by 7 mm in maximal cross-sectional diameter. There were 2 compartments thinly septated. The outer wall of the lesion was not seen. There was no associated mass. There was no internal debris within the fluid-filled cavity. Diagnostic needle aspiration for fluid was performed. Color Doppler imaging was utilized prior to needle puncture to confirm a lack of significant vascular structures within the needle path. One pass was made with the 22 gauge needle using a transduodenal approach. A stylet was used. The amount of fluid collected was 2.5 mL. The fluid was clear, serous and slightly viscous. Sample(s) were sent for amylase concentration, cytology and CEA. Estimated blood loss was minimal. There was no sign of significant endosonographic abnormality in the left adrenal gland. No adrenal gland enlargement was identified. No lymphadenopathy seen. Impression: - Evidence of a cholecystectomy. - There was abnormal echogenicity in the visualized portion of the liver. This was hyperechoic. Tissue has not been obtained. However, the endosonographic appearance is consistent with fatty infiltration. - There was no sign of significant pathology in the common bile duct. - Pancreatic parenchymal abnormalities consisting of lobularity, cysts and hyperechoic strands were noted in the entire pancreas. - A stent was seen in the dorsal pancreatic duct. - A cystic lesion was seen in T- Evidence of a cholecystectomy. - There was abnormal echogenicity in the visualized portion of the liver. This was hyperechoic. Tissue has not been obtained. However, the endosonographic appearance is consistent with fatty infiltration. - There was no sign of significant pathology in the common bile duct. - Pancreatic parenchymal abnormalities consisting of lobularity, cysts and hyperechoic strands were noted in the entire pancreas. - A stent was seen in the dorsal pancreatic duct. - A cystic lesion was seen in the pancreatic head. The diagnosis is consistent with an intraductal papillary mucinous neoplasm. Fine needle aspiration for fluid performed. Recommendation: - Await cytology results. - Use broad spectrum antibiotics for 3 days. Meche Mcfadden D.O. Meche Mcfadden, 12/18/2017 11:59:45 AM This report has been signed electronically. Note Initiated On: 12/18/2017 10:32 AM I attest to the content of the Intraoperative Record and orders documented therein, exceptions below
--- NOTE | 2017-12-18 12:06 | GI REPORT ---
Procedure Date: 12/18/2017 11:16 AM Procedure: ERCP Indications: Acute recurrent pancreatitis, Follow-up of acute recurrent pancreatitis Medicines: General Anesthesia Complications: No immediate complications. Estimated blood loss: Minimal. Estimated Blood Loss: Estimated blood loss was minimal. Procedure: Pre-Anesthesia Assessment: - Prior to the procedure, a History and Physical was performed, and patient medications, allergies and sensitivities were reviewed. The patient's tolerance of previous anesthesia was reviewed. - The risks and benefits of the procedure and the sedation options and risks were discussed with the patient. All questions were answered and informed consent was obtained. - Patient identification and proposed procedure were verified prior to the procedure by the physician, the nurse and the facilities locator. The procedure was verified in the procedure room. - Pre-procedure physical examination revealed no contraindications to sedation. - ASA Grade Assessment: III - A patient with severe systemic disease. - After reviewing the risks and benefits, the patient was deemed in satisfactory condition to undergo the procedure. - The anesthesia plan was to use general anesthesia. - Immediately prior to administration of medications, the patient was re-assessed for adequacy to receive sedatives. - The heart rate, respiratory rate, oxygen saturations, blood pressure, adequacy of pulmonary ventilation, and response to care were monitored throughout the procedure. - The physical status of the patient was re-assessed after the procedure. After obtaining informed consent, the scope was passed under direct vision. Throughout the procedure, the patient's blood pressure, pulse, and oxygen saturations were monitored continuously. The scope was introduced through the mouth, and advanced to the duodenum and used to inject contrast into the dorsal pancreatic duct. The ERCP was accomplished without difficulty. The patient tolerated the procedure well. Findings: A scholastic aptitude test grader film of the abdomen was obtained. Surgical clips, consistent with a previous cholecystectomy, were seen in the area of the right upper quadrant of the abdomen. A pancreatic stent was visible on the scholastic aptitude test grader film. The esophagus was successfully intubated under direct vision without detailed examination of the pharynx, larynx, and associated structures, and upper GI tract. The upper GI tract was grossly normal. One pancreatic stent was emerging from the minor papilla. The stent was visibly patent. A minor papilla sphincterotomy had been performed. The sphincterotomy appeared open. One stent was removed from the pancreatic duct using a snare. Deep cannulation and injection of contrast into the dorsal pancreatic duct was accomplished with the short-nosed traction sphincterotome (Omni 35) and 0.035 in Acrobat 2 guidewire. I personally interpreted the pancreatic duct images. Image quality was excellent. Contrast extended to the pancreatic duct. A complete pancreas divisum was identified (previously known). The ventral pancreatic duct in the head of the pancreas contained a mild stenosis twenty mm in length. The pancreatic duct in the genu of the pancreas and pancreatic duct in the body of the pancreas were dilated mildly (about 5 to 6 mm). The main pancreatic duct was successfully dilated with a 6 mm balloon dilator (previously dilated to 4 mm). This was held inflated for 2 minutes. After dilation, some white chalky material was seen from the PD. One 5 Fr by 9 cm pancreatic stent with a full external pigtail and a single internal flap was placed 9 cm into the dorsal pancreatic duct. Clear fluid flowed through the stent. The stent was in good position. Indomethacin 100 mg was given via suppository to decrease the risk of post-ERCP pancreatitis (PEP). The endoscope was withdrawn from the patient. Impression: - Mild dilatation of the pancreatic duct in the body of the pancreas and in the pancreatic duct in the genu of the pancreas was found. - A pancreatic duct stricture was found. - Pancreas divisum was found. A stent was placed in the minor papilla after stricture dilaiton. - The findings are consistent with chronic pancreatitis (likely from underlying P Divisum) - Indomethacin given to decrease risk of post-ERCP pancreatitis. Recommendation: - Observe patient in same day observation unit for 1 hour for observation. - Clear liquid diet today. - Repeat ERCP in 3 months to remove stent. Meche Mcfadden D.O. Meche Mcfadden, 12/18/2017 12:06:29 PM This report has been signed electronically. Note Initiated On: 12/18/2017 11:16 AM I attest to the content of the Intraoperative Record and orders documented therein, exceptions below
[2017-12-18] MEDS: FENTANYL CITRATE INJ 50 MCG/1 ML 2 ML VIAL IV PRN ×4 (12:11→12:26)
[2017-12-18] MEDS ORDERED: HYDROmorphone INJ 1 MG/ML SYR ONE (12:29)
[2017-12-18] MEDS ORDERED: NURSING VERBAL MED ORDER ONE ×3 (12:30→19:00)
[2017-12-18] MEDS ORDERED: HYDROmorphone INJ 1 MG/ML SYR IV PRN (12:45)
[2017-12-18] MEDS ORDERED: KETOROLAC TROMETHAMINE 30 MG/ML VIAL ONE (12:55)
--- NOTE | 2017-12-18 12:55 | Anesthesiology Progress Note ---
Anesthesia Post Op Note Date & Time Dec 18, 2017 at 12:55 Vital Signs Pain Intensity: 8 Vital Signs Past 12 Hours Date Time Temp Pulse Resp B/P (MAP) Pulse Ox O2 Delivery O2 Flow Rate FiO2 12/18/17 12:17 163/86 12/18/17 12:15 86 14 99 12/18/17 12:15 87 14 12/18/17 12:13 200/110 12/18/17 12:12 201/114 12/18/17 12:10 91 22 12/18/17 12:10 90 22 97 12/18/17 12:06 181/96 12/18/17 12:05 89 21 97 12/18/17 12:05 89 21 12/18/17 12:00 86 13 12/18/17 12:00 36.2 88 16 162/87 97 Oxymask 10 12/18/17 12:00 86 13 162/87 99 12/18/17 09:05 36.9 76 18 199/94 (129) 98 Room Air 173/82 (112) Notes Mental Status: alert / awake / arousable, participated in evaluation Pt Amnestic to Procedure: Yes Nausea / Vomiting: adequately controlled Pain: improving with treatment Airway Patency, RR, SpO2: stable & adequate BP & HR: stable & adequate Hydration State: stable & adequate Anesthetic Complications: no major complications apparent
[2017-12-18] MEDS ORDERED: KETOROLAC TROMETHAMINE 15 MG/ML VIAL IV. PRN (13:00)
--- NOTE | 2017-12-18 13:45 | History and Physical ---
History & Physical Date & Time of Service: Dec 18, 2017 at 13:37 Chief Complaint: Chronic Pancreatitis Primary Care Physician: Colleen Jefferson D.O. History of Present Illness Source: patient, clinic records, hospital records This is a 77yo F with a PMH of recurrent pancreatitis, h/o pancreatic cysts, asthma, anxiety, DM II, HTN, HLD, COPD, DUANE, depression and other conditions listed below who presents from endoscopy s/p EUS with FNA and ERCP with pancreatic stent placement by Dr. Mcfadden for pancreatic cyst and stricture. Patient had a pancreatic stent placed 3 months ago but was found to have a 15mm pancreatic cyst, so underwent a follow-up ERCP today. Findings were consistent with chronic pancreatitis. Developed post-operative pain described as sharp, 8/ 10 midepigastric pain. Pain is intermittent and episodes only last for 5-10 seconds. Associated nausea but no vomiting. Denies any fever, chills, lightheadedness, headache, visual changes, chest pain, SOB, bowel/bladder changes or LE swelling. GI felt that due to patient's abdominal pain and anxious state, it would be best to keep her for overnight observation. 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 (9) Depression Status: Chronic (10) Diabetes mellitus type 2 Status: Chronic (11) Diabetic neuropathy Status: Chronic (12) DKA (diabetic ketoacidoses) Status: Chronic (13) Dyslipidemia Status: Chronic (14) Esophageal dysmotility Status: Chronic (15) Fatty liver Status: Chronic (16) Gastroparesis Status: Chronic (17) Giant cell arteritis Status: Resolved (18) History of sleep apnea Status: Chronic (19) Insomnia Status: Chronic (20) Ischemic stroke Status: Resolved (21) Pancreatic divisum Status: Chronic (22) Sciatica Status: Chronic (23) TIA (transient ischemic attack) Status: Resolved Surgical Problems: (1) cataract surgery Permanent Comment: Right Status: Chronic (2) H/O esophagogastroduodenoscopy Permanent Comment: EGD/EUS 11/01/14- gastritis, hiatal hernia, normal amuplla, fatty infiltration of liver. 3 mm by 10 mm cystic lesion seen in pancreatic head , most consistent with intraductal papillary mucinous neoplasm based on EUS from 2011 Status: Resolved (3) History of - tubal ligation Status: Chronic (4) History of cholecystectomy Status: Chronic (5) History of ERCP Permanent Comment: 09/16/17 - biliary sludge, pancreatic stricture, chronic pancreatitis, stent placed Status: Resolved (6) S/P ERCP Permanent Comment: 12/07/14- prior biliary endoscopic sphincterotomy appeared open. cholangiogram was normal. unable to cannulate pancreatic duct Status: Resolved (7) S/P ERCP Permanent Comment: 05/03/15- minor duct sphincterotomy and pancreatic duct stent placement Status: Resolved (8) S/p fixation of left ankle fracture Status: Chronic Family History Diabetes mellitus GRANDMOTHER MOTHER FH: Parkinson's disease Hypertension Stroke GRANDFATHER Social History Smoking Status: Former Smoker Alcohol Use: none Drug Use: none Marital Status: Housing status: lives alone, other Occupational Status: retired Immunizations History of Influenza Vaccine: Yes History of Tetanus Vaccine?: Yes Tetanus Immunization Date: Sep 27, 2007 History of Pneumococcal: No Pneumococcal Date: Apr 28, 2007 History of Hepatitis B Vaccine: Yes Hepatitis Immunization Date: Sep 27, 2000 Multi-Drug Resistant Organisms History of MDRO: No Allergies Coded Allergies: Iodinated Diagnostic Agents (Verified Allergy, Severe, RASH TO IVP DYE, NAUSEA, FAINTING, COUGHING, GAGGING, HEADACH, 12/18/17) Sulfa Antibiotics (Verified Allergy, Severe, HIVES, FACIAL AND ARM SWELLING, 12/18/17) Cerivastatin (Verified Allergy, Intermediate, HIVES, 12/18/17) Codeine (Verified Allergy, Intermediate, "PRICKLY RASH", 12/18/17) Hydroxyzine (Verified Allergy, Intermediate, N/V, 12/18/17) Latex1 -Allergic Contact Dermititis (Verified Allergy, Intermediate, DERMATITIS-PT TOLERATED A LATEX CATHETER 03/26/08, 12/18/17) Diphenhydramine (Verified Allergy, Mild, RASH; SLEEPINESS WITH "PHARBEDRYL ", 12/18/17) Loratadine (Verified Allergy, Mild, HIVES, 12/18/17) Sulfamethoxazole w/Trimethoprim (Verified Allergy, Mild, RASH, 12/18/17) Prednisone (Verified Allergy, Unknown, unknown, 12/18/17) Tetanus Toxoid (Verified Adverse Reaction, Intermediate, SWELLING AT INJECTION SITE, 12/18/17) Alprazolam (Verified Adverse Reaction, Unknown, "SLEEPY STUPER", 12/18/17) Metformin (Verified Adverse Reaction, Unknown, DIARRHEA, 12/18/17) Morphine (Verified Adverse Reaction, Unknown, VOMITING, 12/18/17) Simvastatin (Verified Adverse Reaction, Unknown, COUGH, "DISCOMFORT", 12/18) Home Medications Scheduled Amlodipine (Norvasc), 10 MG PO DAILY Aspirin (Aspirin), 81 MG PO QAM Atorvastatin (Lipitor), 10 MG PO QPM Budesonide (Inhalation) (Pulmicort), 0.5 MG INH BID Chlorthalidone (Hygroton), 25 MG PO DAILY Clopidogrel (Plavix), 75 MG PO QAM Escitalopram (Lexapro), 15 MG PO QAM Gabapentin (Neurontin), 400 MG PO BID Insulin Aspart (Novolog), SQ ACHS Insulin Isophan/Regular (Novolin 70/30), 80 UNITS SC BID Ipratropium-Albuterol (Duoneb), 1 TREATMENT INH TID Losartan Potassium (Cozaar), 100 MG PO QAM Magnesium Oxide (Mag-Ox), 400 MG PO QAM Metoprolol Tartrate (Lopressor) (Lopressor), 50 MG PO BID Mirtazapine (Remeron), 30 MG PO HS Omeprazole (Prilosec), 40 MG PO QAM Pancrelipase (Lipase-Protease- (Creon), 6,000 UNITS PO QID Pantoprazole (Protonix), 40 MG PO QPM Ranitidine (Zantac), 75 MG PO BID Ropinirole Hydrochloride (Requip), 1 MG PO HS Trazodone Hcl (Trazodone), 50 MG PO HS Scheduled PRN Albuterol Hfa (Ventolin Hfa), 2 PUFFS INH TID PRN for Cough Dicyclomine HCl (Dicyclomine HCl), 10 MG PO TID PRN for Pain Docusate Sodium (Colace), 100 MG PO BID PRN for Constipation Lorazepam (Ativan), 0.5 MG PO Q6H PRN for Anxiety Tramadol (Ultram), 50 MG PO HS PRN for Pain Review of Systems Ten systems reviewed and negative except as noted in the HPI. Physical Exam Vital Signs Date Time Temp Pulse Resp B/P (MAP) Pulse Ox O2 Delivery O2 Flow Rate FiO2 12/18/17 12:58 77 12 95 12/18/17 12:58 36.5 76 12 12/18/17 12:56 159/100 12/18/17 12:53 80 24 94 12/18/17 12:53 77 24 12/18/17 12:52 133/95 12/18/17 12:48 76 11 12/18/17 12:48 77 11 95 12/18/17 12:47 188/68 12/18/17 12:43 84 15 93 12/18/17 12:43 83 15 12/18/17 12:40 197/88 12/18/17 12:38 83 16 12/18/17 12:38 83 16 94 12/18/17 12:33 78 9 97 12/18/17 12:33 78 9 12/18/17 12:32 160/62 12/18/17 12:28 80 13 12/18/17 12:28 80 13 95 12/18/17 12:27 214/ 12/18/17 12:24 184/116 12/18/17 12:23 89 14 12/18/17 12:23 86 14 97 12/18/17 12:18 86 13 12/18/17 12:18 85 13 97 12/18/17 12:17 163/86 12/18/17 12:15 86 14 99 12/18/17 12:15 87 14 12/18/17 12:13 200/110 12/18/17 12:12 201/114 12/18/17 12:10 91 22 12/18/17 12:10 90 22 97 12/18/17 12:06 181/96 12/18/17 12:05 89 21 97 12/18/17 12:05 89 21 12/18/17 12:00 86 13 12/18/17 12:00 36.2 88 16 162/87 97 Oxymask 10 12/18/17 12:00 86 13 162/87 99 12/18/17 09:05 36.9 76 18 199/94 (129) 98 Room Air 173/82 (112) General Appearance: + mild distress Head: normocephalic, atraumatic Eyes: normal inspection, PERRL, sclerae normal ENT: normal ENT inspection, hearing grossly normal, pharynx normal (dry mucous membranes ) Neck: supple, thyroid normal, trachea midline Respiratory/Chest: chest non-tender, no respiratory distress, no accessory muscle use, + wheezing (Expiratory wheezes, some bibasilar crackles) Cardiovascular: regular rate, rhythm, normal peripheral pulses, + systolic murmur Abdomen/GI: soft, no organomegaly, + tenderness (TTP of mid-epigastrium, no guarding ) Extremities/Musculoskelatal: normal inspection, no calf tenderness, no pedal edema Neurologic/Psych: alert, normal mood/affect, oriented x 3, + pertinent finding (anxious) Skin: normal color, warm/dry Diagnostics Laboratory Results Results Past 24 Hours Test 12/18/17 09:00 12/18/17 11:45 12/18/17 12:21 12/18/17 12:35 Range/Units Bedside Glucose 257 230 70-90 mg/dl Diagnostic Radiology ERCP: Impression: - Mild dilatation of the pancreatic duct in the body of the pancreas and in the pancreatic duct in the genu of the pancreas was found. - A pancreatic duct stricture was found. - Pancreas divisum was found. A stent was placed in the minor papilla after stricture dilaiton. - The findings are consistent with chronic pancreatitis (likely from underlying P Divisum) - Indomethacin given to decrease risk of post- ERCP pancreatitis. EUS: Impression: - Evidence of a cholecystectomy. - There was abnormal echogenicity in the visualized portion of the liver. This was hyperechoic. Tissue has not been obtained. However, the endosonographic appearance is consistent with fatty infiltration. - There was no sign of significant pathology in the common bile duct. - Pancreatic parenchymal abnormalities consisting of lobularity, cysts and hyperechoic strands were noted in the entire pancreas. - A stent was seen in the dorsal pancreatic duct. - A cystic lesion was seen in T- Evidence of a cholecystectomy. - There was abnormal echogenicity in the visualized portion of the liver. This was hyperechoic. Tissue has not been obtained. However, the endosonographic appearance is consistent with fatty infiltration. - There was no sign of significant pathology in the common bile duct. - Pancreatic parenchymal abnormalities consisting of lobularity, cysts and hyperechoic strands were noted in the entire pancreas. - A stent was seen in the dorsal pancreatic duct. - A cystic lesion was seen in the pancreatic head. The diagnosis is consistent with an intraductal papillary mucinous neoplasm. FNA for fluid performed. Impression Assessment and Plan This is a 77yo F with a PMH of recurrent pancreatitis, h/o pancreatic cysts, asthma, anxiety, DM II, HTN, HLD, COPD, DUANE, depression and other conditions listed below who presents from endoscopy s/p EUS with FNA and ERCP with pancreatic stent placement by Dr. Mcfadden for pancreatic cyst and stricture. Chronic pancreatitis s/p ERCP: -S/p EUS with FNA and ERCP with pancreatic stent placement by Dr. Mcfadden for pancreatic cyst and stricture ERCP findings consistent with chronic pancreatitis -EUS showed a cystic lesion was seen in the pancreatic head consistent with an intraductal papillary mucinous neoplasm. FNA for fluid performed. -Observe overnight -+ abdominal pain, nausea. Lipase of 1186 -Clear liquid diet, IVF, IV cipro, pain control -Cont home PPI, Creon, dicyclomine -Plan to repeat ERCP in 3 months to remove stent -GI consulted DM II: poorly controlled -Hgb a1c of 10.9 in Aug 2017 -Recheck hgb a1c -Held home NPH -Resumed basal bolus regimen used during previous admission -Glycemic control consult Asthma/COPD: -Recently completed course of steroids -Supplemental O2 -Resume home inhalers, neb treatments HTN: -Elevated 2/2 pain, anxiety -PRN anxiolytics, pain control -Did not take home medications this AM -Given extra dose of metoprolol, amlodipine -Resume home meds: metoprolol, amlodipine, losartan, chlorthalidone H/o CVA: -Hold aspirin plavix for now s/p ERCP -SCDs HLD: -Hold statin Peripheral neuropathy: -Cont gabapentin Insomnia, RLS: -Cont ropinirole, mirtazapine, trazodone Anxiety/Depression: -PRN IV ativan for anxiety -Cont lexapro DVT Ppx: SCDs Code status: FULL PCP: Ronny Dispo: Observation telemetry. Plan to return home once medically stable. Patient seen in collaboration with Dr. Breen. Please see addendum. ATTENDING ADDENDUM : pt seen and examined, care co ordinated with Treva Marcos PA-C 77 yo F with multiple co morbidities underwent ERCP /EUS and FNA if pancreatic Cyst by GI Dr Mcfadden today post procedure pt complains of persisted epigastric pain , nausea , very anxious per GI recommendation , will be observed overnight P/E: Gen ; very anxious HEENT ; sclera non icteric , moist oral mucosa HT regular S1/S2 Lungs -Clear to auscultate abdomen -soft, + mid abdomen /epigastric pain ext -no rash or deformity Neuro: AAO x3, no focal deficit A/p : hx of recurrent pancreatitis: s/p EUS /biopsy of pancreatic cys monitor in tele / IV fluid empiric abx with IV Cipro clear liquid diet repeat LFT /Lipase level in AM GI eval requested please refer to Treva Marcos PA-C documentation for further discussion of other issues Level of Care Telemetry Resuscitation Status FULL RESUSCITATION VTE Prophylaxis VTE Risk Assessment Done? Y/N: Yes Risk Level: Moderate Given or contraindicated: SCD's
[2017-12-18] MEDS: LACTATED RINGER'S 1000ML 1,000 ML IV SCH ×2 (14:21→18:43)
--- NOTE | 2017-12-18 14:22 | DIAGNOSTIC IMAGING REPORT ---
ERCP BILIARY DUCTAL CLINICAL HISTORY: EXPLORE DUCTS COMPARISON STUDY: 09/16/2017 FLUOROSCOPY TIME: 1. 2 -- 6 minutes. FINDINGS: Pancreatic duct is cannulated in a retrograde fashion with a guidewire placement. Stent exchange was also noted IMPRESSION: Pancreatic duct partial opacification with guidewire placement and stent replacement per history The above report was generated using voice recognition software. It may contain grammatical, syntax or spelling errors. Electronically signed by: Sigifredo Rubio M.D. 12/18/2017 2:20 PM Dictated Date/Time: 12/18/2017 2:18 PM
[2017-12-18] MEDS ORDERED: HYG/25 PO (14:33)
[2017-12-18] MEDS ORDERED: AMLO-114 PO (14:33)
[2017-12-18] MEDS ORDERED: METOPROLOL TARTRATE 50 MG TAB PO STA (14:36)
[2017-12-18 14:38] LABS: HEMATOCRIT 38.2 % (37-47); HEMOGLOBIN 13.4 g/dL (12.0-16.0); MEAN CELL VOLUME 86.8 fL (80-100); MEAN CORPUSCULAR HEMOGLOBIN 30.5 pg (25-34); MEAN PLATELET VOLUME 9.4 fL (7.4-10.4); PLATELET COUNT 195 K/uL (130-400); RED CELL DISTRIBUTION WIDTH SD 41.7 fL (36.4-46.3); WHITE BLOOD COUNT 8.31 K/uL (4.8-10.8)
[2017-12-18] MEDS ORDERED: DICYCLOMINE HCL 10 MG CAP PO PRN (14:45)
[2017-12-18] MEDS ORDERED: ALBUTEROL HFA 8 GM INHALER INH PRN ×2 (14:45)
[2017-12-18] MEDS ORDERED: DOCUSATE SODIUM 100 MG CAP PO PRN ×2 (14:45)
[2017-12-18] MEDS ORDERED: LORAZEPAM 0.5 MG TAB PO PRN (14:45)
[2017-12-18] MEDS ORDERED: IV FLUIDS COMPLETED PRN (14:45)
[2017-12-18] MEDS ORDERED: AMLODIPINE BESYLATE 5 MG TAB PO ONE (14:45)
[2017-12-18] MEDS ORDERED: MAGIC SWIZZLE PO SCH (14:45)
[2017-12-18] MEDS ORDERED: TRAMADOL HCL 50 MG TAB PO PRN ×2 (14:45)
[2017-12-18] MEDS ORDERED: LORAZEPAM 2 MG/ML 1 ML VIAL IV PRN (14:45)
[2017-12-18 14:47] LABS: MEAN CORPUSCULAR HGB CONC 35.1 g/dl (32-36)
[2017-12-18] MEDS ORDERED: PHARMACY GLYCEMIC MGMT CONSULT PRN (14:57)
[2017-12-18 15:00] LABS: ALBUMIN 3.1 gm/dl (3.4-5.0); CREATININE 1.08 mg/dl (0.60-1.20); POTASSIUM 3.7 mmol/L (3.5-5.1); TOTAL PROTEIN 6.9 gm/dl (6.4-8.2)
[2017-12-18] MEDS ORDERED: GLUCOSE 40% GEL 15 GM TUBE PO PRN (15:00)
[2017-12-18] MEDS ORDERED: GLUCOSE 10 TABS/TUBE PO PRN (15:00)
[2017-12-18] MEDS ORDERED: ALBUT/IPRATROP 3MG/0.5MG NEB 3 ML VIAL INH SCH ×2 (15:00→16:00)
[2017-12-18] MEDS ORDERED: GLUCAGON FOR INJ 1 MG VIAL SQ PRN (15:00)
--- NOTE | 2017-12-18 15:24 | Progress Note ---
Progress Note Date of Service Dec 18, 2017. (Shannan Nagel .JOE) Progress Note Subjective: Pt was seen and evaluated, chart reviewed. Was admitted following outpatient ERCP for upper abdominal pain requiring narcotic. Pt notes extensive improvement of pain since she was admitted and tolerated clear liquid diet. Has mild epigastric pain w/ radiation under both breasts w/ mild nausea, no vomiting. She tells me this was nearly identical to her pain associated w/ pancreatitis but resolved quit quickly. No vomiting. No fever, chills, CP, SOB. EUS/ERCP: fatty liver, chronic panc, dorsal panc duct stent in place, cystic lesion in panc head which was biopsied, pancreatic duct stricture, pancreatic divisum w/ pancreatic duct stent placement Physical Exam: No acute distress. PERRLA. Breathing unlabored, Heart RR, abdomen soft, non-distended w/ good bowel sounds, mild tenderness to palpation in epigastric region Impression: 77 year old female w/ abdominal pain after EUS/ERCP today requiring analgesia, labs pending. She in clinically improving, doubt acute pancreatitis although her lipase will likely be elevated given the extent of her procedure today. Plan: - LR 200 ml/hr - Clear liquid diet today --> advance to low fat diet tomorrow as tolerated - Analgesia PRN - Antiemetics PRN - Broad spectrum ABX x 3 days - ERCP in 3 months Please call with any acute changes, questions or concerns. Thank you. (Shannan Nagel ., JOE) I saw and evaluated the patient with Ms. Kaiser. The patient underwent an endoscopic ultrasound and ERCP this afternoon. We did obtain fluid aspirated from a 14 mm pancreatic cyst. In addition to performed a dilation of a known pancreatic stricture and placed a new pancreatic stent. As the patient was having some postprocedural discomfort we have elected to observe her overnight. Physical examination No obvious distress Mild epigastric discomfort Impression: Patient with post procedural pain likely related to distention or manipulation of the pancreatic duct Recommendations Continue with IV hydration overnight, LR at 200 mL an hour Continue ciprofloxacin 400 mg IV every 12 hours for 3 days Patient may have a clear liquid diet today Advance diet as tolerated on Thursday with potential discharge patient feeling well. (Meche Mcfadden, DO)
--- NOTE | 2017-12-18 15:54 | Pharmacy Progress Note ---
Glycemic Control Intl Consult Date of Service Dec 18, 2017. Scope Glycemic Pharmacist consulted by Treva Marcos on 12/18/17 for glycemic control and to write orders per [facility] inpatient glycemic control protocol Objective Weight (Kilograms): 72.730 Accuchecks BSG (last 24hrs): Test 12/18/17 09:00 12/18/17 12:21 12/18/17 13:51 Bedside Glucose 257 mg/dl (70-90) 230 mg/dl (70-90) Random Glucose 275 mg/dl (70-99) Laboratory Data (last 24hrs) Test 12/18/17 13:51 Anion Gap 10.0 mmol/L BUN/Creatinine Ratio 17.3 Blood Urea Nitrogen 19 mg/dl Creatinine 1.08 mg/dl Potassium Level 3.7 mmol/L Sodium Level 136 mmol/L White Blood Count 8.31 K/uL Recent Pertinent Medications Outpatient Anti-diabetic Regimen: * Novolin 70/30 - 80 units twice daily + Novolog * A1c = 10.9 % 08/26/17 Risk Factors for Insulin Resistance: * Recent Surgery: ERCP POD 0 * Diet: clear liquids for today Assessment & Plan ASSESSMENT: * Ms Kaplan is a 77 y/o F with a PMH of COPD, recurrent pancreatitis, and DUANE who presents s/p ERCP. Her blood sugar this morning was 257 mg/dL and she did NOT take insulin this morning. Based upon previous admissions, the patient requires around 100 units/day and tolerates Lantus 40 units twice daily while NPO for at least 2 days. * Due to patient missing morning insulin, utilized Lantus 80 units (about 1.5 of one of her outpatient doses of basal) to "make up" for the missed basal insulin. Start scale the next day which will most likely need to be loosened in the upcoming days if the patient is still here. Will utilize Novolog based upon total daily dose of 100 units/day. PLAN FOR INPATIENT GLYCEMIC CONTROL: * Basal insulin with LANTUS 80 units SQ x 1 then 30-50 units SQ BID * Correctional Insulin with NOVOLOG per scale ACHS or Q6hrs while NPO * Goal Range: Low 110 mg/dL - High 140 mg/dL * Correction Factor: 15 mg/dL/unit * Nutritional / Prandial insulin per carb ratio of 1 unit per 5 grams CHO consumed * Please note that the plan above was derived based on current level of insulin resistance and hospital stress. These recommendations are appropriate for inpatient admission only. Plan of care upon discharge will need to be reassessed to avoid potential outpatient hypo/hyperglycemia. Thank you.
[2017-12-18] MEDS ORDERED: INSULIN GLARGINE SOLOSTAR 100 UNITS/ML 3 ML PEN SC ONE (16:00)
[2017-12-18] MEDS: PANCREAZE (LIPASE 4,200U) CAP PO SCH ×2 (17:20→20:09)
[2017-12-18] MEDS: NYSTATIN SUSP 500,000 U/5 ML UDC PO SCH ×2 (17:21→20:08)
[2017-12-18] MEDS: INSULIN ASPART 100 UNITS/ML 3 ML PEN SC SCH ×2 (17:24→21:02)
[2017-12-18] MEDS ORDERED: ACETAMINOPHEN 325 MG TAB ONE (17:49)
[2017-12-18] MEDS: BUDESONIDE 0.5 MG/2 ML VIAL (PULMICORT) INH SCH (19:14)
[2017-12-18] MEDS: DICYCLOMINE HCL 10 MG CAP PO PRN (20:07)
[2017-12-18] MEDS: METOPROLOL TARTRATE 50 MG TAB PO SCH (20:08)
[2017-12-18] MEDS: TRAZODONE HCL 50 MG TAB PO SCH (20:08)
[2017-12-18] MEDS: GABAPENTIN 400 MG CAP PO SCH (20:09)
[2017-12-18] MEDS: MIRTAZAPINE TAB 15 MG TAB PO SCH (20:09)
[2017-12-18] MEDS: PANTOprazole SOD 40 MG TAB PO SCH (20:09)
[2017-12-18] MEDS: ROPINIROLE HCL 1 MG TAB PO SCH (20:10)
[2017-12-18] MEDS: RANITIDINE HCL 150 MG TAB PO SCH (20:10)
[2017-12-18] MEDS ORDERED: INSULIN HUMAN 70% NPH/30% REGULAR SC SCH (21:00)
[2017-12-18] MEDS ORDERED: GABAPENTIN 400 MG CAP PO SCH (21:00)
[2017-12-18] MEDS ORDERED: MIRTAZAPINE TAB 15 MG TAB PO SCH (21:00)
[2017-12-18] MEDS ORDERED: PANTOprazole SOD 40 MG TAB PO SCH (21:00)
[2017-12-18] MEDS: CIPROFLOXACIN / D5W 400 MG in PREMIXED IN D5W 200 ML IV SCH (21:00)
[2017-12-18] MEDS ORDERED: ROPINIROLE HCL 1 MG TAB PO SCH (21:00)
[2017-12-18] MEDS ORDERED: METOPROLOL TARTRATE 50 MG TAB PO SCH (21:00)
[2017-12-18] MEDS ORDERED: TRAZODONE HCL 50 MG TAB PO SCH (21:00)
[2017-12-18] MEDS ORDERED: CIPROFLOXACIN / D5W 400 MG in PREMIXED IN D5W 200 ML IV SCH (21:00)
[2017-12-18] MEDS ORDERED: LIDOCAINE HCL 2% VISCOUS SOLN 60 ML, DiphenhydrAMINE HCL SYRUP 150 MG, ALUMINUM/MAGNESI... MT SCH ×4 (22:00)
[2017-12-19] VITALS (8 sets, daily range): BP systolic 119–159; BP diastolic 64–83; PULSE 54–68; TEMP 36.4–36.7; O2SAT 93–97
[2017-12-19] MEDS: LACTATED RINGER'S 1000ML 1,000 ML IV SCH ×4 (00:05→21:33)
[2017-12-19] MEDS: INSULIN ASPART 100 UNITS/ML 3 ML PEN SC SCH ×6 (04:04→21:19)
[2017-12-19 06:59] LABS: HEMATOCRIT 34.5 % (37-47); HEMOGLOBIN 12.3 g/dL (12.0-16.0); MEAN CELL VOLUME 86.9 fL (80-100); MEAN CORPUSCULAR HGB CONC 35.7 g/dl (32-36); MEAN PLATELET VOLUME 9.2 fL (7.4-10.4); PLATELET COUNT 174 K/uL (130-400); RED CELL DISTRIBUTION WIDTH CV 13.1 % (11.5-14.5); RED CELL DISTRIBUTION WIDTH SD 42.1 fL (36.4-46.3); WHITE BLOOD COUNT 11.98 K/uL (4.8-10.8)
[2017-12-19] MEDS: BUDESONIDE 0.5 MG/2 ML VIAL (PULMICORT) INH SCH ×2 (07:16→19:26)
[2017-12-19 07:32] LABS: ALBUMIN 2.6 gm/dl (3.4-5.0); ALT/SGPT 28 U/L (12-78); AST/SGOT 20 U/L (15-37); BLOOD UREA NITROGEN 15 mg/dl (7-18); CALCIUM 8.3 mg/dl (8.5-10.1); CARBON DIOXIDE 25 mmol/L (21-32); GLUCOSE 150 mg/dl (70-99); POTASSIUM 3.8 mmol/L (3.5-5.1); SODIUM 135 mmol/L (136-145)
[2017-12-19 07:35] LABS: ALKALINE PHOSPHATASE 84 U/L (45-117); LIPASE 3158 U/L (73-393); TOTAL PROTEIN 6.1 gm/dl (6.4-8.2)
[2017-12-19 08:57] LABS: HEMOGLOBIN A1C 10.3 % (4.5-5.6)
[2017-12-19] MEDS: METOPROLOL TARTRATE 50 MG TAB PO SCH ×2 (08:57→21:17)
[2017-12-19] MEDS: AMLODIPINE BESYLATE 5 MG TAB PO SCH (08:58)
[2017-12-19] MEDS: PANCREAZE (LIPASE 4,200U) CAP PO SCH ×4 (08:58→21:17)
[2017-12-19] MEDS: PANTOprazole SOD 40 MG TAB PO SCH ×2 (08:59→21:18)
[2017-12-19] MEDS: RANITIDINE HCL 150 MG TAB PO SCH ×2 (08:59→21:17)
[2017-12-19] MEDS: GABAPENTIN 400 MG CAP PO SCH ×2 (08:59→21:17)
[2017-12-19] MEDS: LOSARTAN POTASSIUM 50 MG TAB PO SCH (08:59)
[2017-12-19] MEDS ORDERED: MAGNESIUM OXIDE 400 MG TAB PO SCH (09:00)
[2017-12-19] MEDS ORDERED: CLOPIDOGREL BISULFATE 75 MG TAB PO SCH (09:00)
[2017-12-19] MEDS: ESCITALOPRAM OXALATE 10 MG TAB PO SCH (09:00)
[2017-12-19] MEDS ORDERED: ASPIRIN 81 MG ECTAB PO SCH (09:00)
[2017-12-19] MEDS: MAGNESIUM OXIDE 400 MG TAB PO SCH (09:00)
[2017-12-19] MEDS ORDERED: NON-FORMULARY MEDICATION (Omeprazole (Prilosec) 40 MG) PO SCH (09:00)
[2017-12-19] MEDS ORDERED: ESCITALOPRAM OXALATE 10 MG TAB PO SCH (09:00)
[2017-12-19] MEDS: NYSTATIN SUSP 500,000 U/5 ML UDC PO SCH ×4 (09:00→21:17)
[2017-12-19] MEDS ORDERED: AMLODIPINE BESYLATE 5 MG TAB PO SCH (09:00)
[2017-12-19] MEDS: CHLORTHALIDONE 25 MG TAB PO SCH (09:00)
[2017-12-19] MEDS: CIPROFLOXACIN / D5W 400 MG in PREMIXED IN D5W 200 ML IV SCH ×2 (09:15→21:34)
[2017-12-19] MEDS: INSULIN GLARGINE SOLOSTAR 100 UNITS/ML 3 ML PEN SC SCH ×2 (09:15→21:20)
[2017-12-19] MEDS: DICYCLOMINE HCL 10 MG CAP PO PRN (09:44)
[2017-12-19] MEDS ORDERED: ONDANSETRON INJ 2 MG/ML 2 ML VIAL IV. ONE (10:34)
[2017-12-19] MEDS ORDERED: MoRPHine SULFATE 4 MG/ML 1 ML CARP\\VIAL IV STA (10:34)
[2017-12-19] MEDS ORDERED: MoRPHine SULFATE 2 MG/ML CARP IV PRN (10:45)
[2017-12-19] MEDS ORDERED: MoRPHine SULFATE 4 MG/ML 1 ML CARP\\VIAL ONE (10:51)
--- NOTE | 2017-12-19 11:02 | Progress Note ---
Progress Note Date of Service Dec 19, 2017. Progress Note Pt with pain increased from baseline this morning. She reports this as pain typical of her prior pancreatitis. Date Time Temp Pulse Resp B/P (MAP) Pulse Ox O2 Delivery O2 Flow Rate FiO2 12/19/17 07:33 36.7 66 18 145/72 (96) 97 12/19/17 07:16 68 16 96 Room Air 12/19/17 04:00 Room Air 12/19/17 04:00 36.7 65 20 143/77 (99) 97 Room Air 12/19/17 00:01 Room Air 12/18/17 23:41 36.5 59 20 126/88 (101) 94 Room Air 12/18/17 20:00 Room Air 12/18/17 19:53 37.0 64 20 170/73 (105) 96 Room Air 12/18/17 19:15 70 16 98 Room Air 12/18/17 16:22 36.5 75 20 161/97 (118) 96 Room Air 12/18/17 16:00 95 Room Air 12/18/17 13:55 36.7 72 18 183/104 94 Nasal Cannula 1.0 12/18/17 13:48 69 19 179/102 (127) 94 Nasal Cannula 1.0 12/18/17 13:15 36.7 72 18 183/104 (130) 94 Nasal Cannula 1.0 12/18/17 12:58 77 12 95 12/18/17 12:58 36.5 76 12 12/18/17 12:56 159/100 12/18/17 12:53 80 24 94 12/18/17 12:53 77 24 12/18/17 12:52 133/95 12/18/17 12:48 76 11 12/18/17 12:48 77 11 95 12/18/17 12:47 188/68 12/18/17 12:43 84 15 93 12/18/17 12:43 83 15 12/18/17 12:40 197/88 12/18/17 12:38 83 16 12/18/17 12:38 83 16 94 12/18/17 12:33 78 9 97 12/18/17 12:33 78 9 12/18/17 12:32 160/62 12/18/17 12:28 80 13 12/18/17 12:28 80 13 95 12/18/17 12:27 214/ 12/18/17 12:24 184/116 12/18/17 12:23 89 14 12/18/17 12:23 86 14 97 12/18/17 12:18 86 13 12/18/17 12:18 85 13 97 12/18/17 12:17 163/86 12/18/17 12:15 86 14 99 12/18/17 12:15 87 14 12/18/17 12:13 200/110 12/18/17 12:12 201/114 12/18/17 12:10 91 22 12/18/17 12:10 90 22 97 12/18/17 12:06 181/96 12/18/17 12:05 89 21 97 12/18/17 12:05 89 21 12/18/17 12:00 86 13 12/18/17 12:00 36.2 88 16 162/87 97 Oxymask 10 12/18/17 12:00 86 13 162/87 99 Appears anxious, mildly uncomfortable - she is easily conversant, watching TV. Abd is soft, diffusely tender with vol guarding, no rebound Last 24 Hours Test 12/18/17 11:47 12/18/17 12:21 12/18/17 13:51 12/18/17 16:21 Bedside Glucose 230 mg/dl 384 mg/dl White Blood Count 8.31 K/uL Red Blood Count 4.40 M/uL Hemoglobin 13.4 g/dL Hematocrit 38.2 % Mean Corpuscular Volume 86.8 fL Mean Corpuscular Hemoglobin 30.5 pg Mean Corpuscular Hemoglobin Concent 35.1 g/dl RDW Standard Deviation 41.7 fL RDW Coefficient of Variation 13.0 % Platelet Count 195 K/uL Mean Platelet Volume 9.4 fL Sodium Level 136 mmol/L Potassium Level 3.7 mmol/L Chloride Level 105 mmol/L Carbon Dioxide Level 21 mmol/L Anion Gap 10.0 mmol/L Blood Urea Nitrogen 19 mg/dl Creatinine 1.08 mg/dl Est Creatinine Clear Calc Drug Dose 38.8 ml/min Estimated GFR () 57.3 Estimated GFR (Non- 49.5 BUN/Creatinine Ratio 17.3 Random Glucose 275 mg/dl Calcium Level 9.0 mg/dl Total Bilirubin 0.3 mg/dl Aspartate Amino Transf (AST/SGOT) 29 U/L Alanine Aminotransferase (ALT/SGPT) 31 U/L Alkaline Phosphatase 93 U/L Total Protein 6.9 gm/dl Albumin 3.1 gm/dl Globulin 3.8 gm/dl Albumin/Globulin Ratio 0.8 Lipase 1186 U/L Test 12/18/17 19:53 12/19/17 00:00 12/19/17 04:02 12/19/17 06:30 Bedside Glucose 350 mg/dl 146 mg/dl 161 mg/dl White Blood Count 11.98 K/uL Red Blood Count 3.97 M/uL Hemoglobin 12.3 g/dL Hematocrit 34.5 % Mean Corpuscular Volume 86.9 fL Mean Corpuscular Hemoglobin 31.0 pg Mean Corpuscular Hemoglobin Concent 35.7 g/dl RDW Standard Deviation 42.1 fL RDW Coefficient of Variation 13.1 % Platelet Count 174 K/uL Mean Platelet Volume 9.2 fL Sodium Level 135 mmol/L Potassium Level 3.8 mmol/L Chloride Level 104 mmol/L Carbon Dioxide Level 25 mmol/L Anion Gap 6.0 mmol/L Blood Urea Nitrogen 15 mg/dl Creatinine 1.10 mg/dl Est Creatinine Clear Calc Drug Dose 38.4 ml/min Estimated GFR () 56.1 Estimated GFR (Non- 48.4 BUN/Creatinine Ratio 13.4 Random Glucose 150 mg/dl Estimated Average Glucose 249 mg/dl Hemoglobin A1c 10.3 % Calcium Level 8.3 mg/dl Magnesium Level 1.4 mg/dl Total Bilirubin 0.4 mg/dl Direct Bilirubin < 0.1 mg/dl Aspartate Amino Transf (AST/SGOT) 20 U/L Alanine Aminotransferase (ALT/SGPT) 28 U/L Alkaline Phosphatase 84 U/L Total Protein 6.1 gm/dl Albumin 2.6 gm/dl Lipase 3158 U/L Test 12/19/17 07:09 Bedside Glucose 148 mg/dl A/P: CP, s/p ERCP with decompression IPMN and dil of PD Now with worsening pain, likely post ERCP panc - NPO, analgesia, CT, IVFs. Will follow.
--- NOTE | 2017-12-19 11:04 | Progress Note ---
Medicine Progress Note Date & Time of Visit: Dec 19, 2017 at 10:38. Subjective -pt reports 09/01 pain -tolerating PO -reports nausea. -appears very uncomfortable. -afebrile. Objective Last 8 Hrs Date Time Temp Pulse Resp B/P (MAP) Pulse Ox O2 Delivery O2 Flow Rate FiO2 12/19/17 07:33 36.7 66 18 145/72 (96) 97 12/19/17 07:16 68 16 96 Room Air 12/19/17 04:00 Room Air 12/19/17 04:00 36.7 65 20 143/77 (99) 97 Room Air Physical Exam: GEN: WNWD, in mild distress and writhing around on bed, alert and appropriate HEENT: NC/AT, normal sclerae, MMM CARDIO: reg rate, S1/2 heard without m/g/r, anterior R chest wall port that is accessed. LUNGS: CTA bilaterally, no crackles, rales or wheezes, good diaphragmatic excursion ABD: soft, TTP throughout abdomen, worse in epigastric region, non-distended, no rebound or guarding, +BS EXTREMITY: RP and DP palpable 2+ bilat, no LE swelling or edema, extremities are warm and well-perfused NEURO: CN 2-12 grossly intact MUSC: moves all extremities equally, no gross focal deficits. SKIN: warm and dry Laboratory Results: 12/19/17 06:30 12/19/17 06:30 Test 12/18/17 11:47 12/18/17 13:51 12/19/17 06:30 12/19/17 07:09 Globulin 3.8 gm/dl (2.5-4.0) Albumin/Globulin Ratio 0.8 (0.9-2) Red Blood Count 3.97 M/uL (4.2-5.4) Mean Corpuscular Volume 86.9 fL (80-100) Mean Corpuscular Hemoglobin 31.0 pg (25-34) Mean Corpuscular Hemoglobin Concent 35.7 g/dl (32-36) RDW Standard Deviation 42.1 fL (36.4-46.3) RDW Coefficient of Variation 13.1 % (11.5-14.5) Mean Platelet Volume 9.2 fL (7.4-10.4) Anion Gap 6.0 mmol/L (3-11) Est Creatinine Clear Calc Drug Dose 38.4 ml/min Estimated GFR () 56.1 Estimated GFR (Non- 48.4 BUN/Creatinine Ratio 13.4 (10-20) Estimated Average Glucose 249 mg/dl Hemoglobin A1c 10.3 % (4.5-5.6) Calcium Level 8.3 mg/dl (8.5-10.1) Magnesium Level 1.4 mg/dl (1.8-2.4) Total Bilirubin 0.4 mg/dl (0.2-1) Direct Bilirubin < 0.1 mg/dl (0-0.2) Aspartate Amino Transf (AST/SGOT) 20 U/L (15-37) Alanine Aminotransferase (ALT/SGPT) 28 U/L (12-78) Alkaline Phosphatase 84 U/L (45-117) Total Protein 6.1 gm/dl (6.4-8.2) Albumin 2.6 gm/dl (3.4-5.0) Lipase 3158 U/L (73-393) Bedside Glucose 148 mg/dl (70-90) Last 24 Hours Test 12/18/17 11:47 12/18/17 12:21 12/18/17 13:51 12/18/17 16:21 Bedside Glucose 230 mg/dl 384 mg/dl White Blood Count 8.31 K/uL Red Blood Count 4.40 M/uL Hemoglobin 13.4 g/dL Hematocrit 38.2 % Mean Corpuscular Volume 86.8 fL Mean Corpuscular Hemoglobin 30.5 pg Mean Corpuscular Hemoglobin Concent 35.1 g/dl RDW Standard Deviation 41.7 fL RDW Coefficient of Variation 13.0 % Platelet Count 195 K/uL Mean Platelet Volume 9.4 fL Sodium Level 136 mmol/L Potassium Level 3.7 mmol/L Chloride Level 105 mmol/L Carbon Dioxide Level 21 mmol/L Anion Gap 10.0 mmol/L Blood Urea Nitrogen 19 mg/dl Creatinine 1.08 mg/dl Est Creatinine Clear Calc Drug Dose 38.8 ml/min Estimated GFR () 57.3 Estimated GFR (Non- 49.5 BUN/Creatinine Ratio 17.3 Random Glucose 275 mg/dl Calcium Level 9.0 mg/dl Total Bilirubin 0.3 mg/dl Aspartate Amino Transf (AST/SGOT) 29 U/L Alanine Aminotransferase (ALT/SGPT) 31 U/L Alkaline Phosphatase 93 U/L Total Protein 6.9 gm/dl Albumin 3.1 gm/dl Globulin 3.8 gm/dl Albumin/Globulin Ratio 0.8 Lipase 1186 U/L Test 12/18/17 19:53 12/19/17 00:00 12/19/17 04:02 12/19/17 06:30 Bedside Glucose 350 mg/dl 146 mg/dl 161 mg/dl White Blood Count 11.98 K/uL Red Blood Count 3.97 M/uL Hemoglobin 12.3 g/dL Hematocrit 34.5 % Mean Corpuscular Volume 86.9 fL Mean Corpuscular Hemoglobin 31.0 pg Mean Corpuscular Hemoglobin Concent 35.7 g/dl RDW Standard Deviation 42.1 fL RDW Coefficient of Variation 13.1 % Platelet Count 174 K/uL Mean Platelet Volume 9.2 fL Sodium Level 135 mmol/L Potassium Level 3.8 mmol/L Chloride Level 104 mmol/L Carbon Dioxide Level 25 mmol/L Anion Gap 6.0 mmol/L Blood Urea Nitrogen 15 mg/dl Creatinine 1.10 mg/dl Est Creatinine Clear Calc Drug Dose 38.4 ml/min Estimated GFR () 56.1 Estimated GFR (Non- 48.4 BUN/Creatinine Ratio 13.4 Random Glucose 150 mg/dl Estimated Average Glucose 249 mg/dl Hemoglobin A1c 10.3 % Calcium Level 8.3 mg/dl Magnesium Level 1.4 mg/dl Total Bilirubin 0.4 mg/dl Direct Bilirubin < 0.1 mg/dl Aspartate Amino Transf (AST/SGOT) 20 U/L Alanine Aminotransferase (ALT/SGPT) 28 U/L Alkaline Phosphatase 84 U/L Total Protein 6.1 gm/dl Albumin 2.6 gm/dl Lipase 3158 U/L Test 12/19/17 07:09 Bedside Glucose 148 mg/dl Assessment & Plan 77 yo F with recurrent pancreatitis and h/o pancreatic cysts who presents s/p EUS with biopsy and ERCP with pancreatic stent placement for stricture yesterday. 1. Abdominal pain likely 2/2 post-procedure pancreatitis-other etiologies including viscus rupture, peritonitis, or retroperitoneal bleed are also a possibility but are less likely. Morphine PRN, Zofran PRN, NPO x sips and ice chips. Cont LR @ 200. CT with IV contrast ordered, however, patient has a contrast allergy so will premedicate with Prednisone and Benadryl. CT scan should be scheduled at midnight tonight. Cont IV cipro per GI for 3 days. 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 2. DMII-poorly controlled w A1C 11 in Aug 2017. Controlled as inpatient with ISS and Glargine. Apprec pharmacy consult as inpatient. Gabapentin for neuropathic pain. 3. COPD-stable, no wheezing. Recently completed course of steroids. Supplemental O2 as needed. Home inhalers. 4. HTN-controlled. Home meds including metoprolol, amlodipine, losartan, chlorthalidone. 5. h/o ASA and Plavix for now s/p ERCP. DVT Ppx: SCDs Code status: FULL PCP: Ronny Dispo: cont tele, change to full admit. Caren Guerra DO [facility] Hospitalist Consultants: GI-Dr. Lopez Current Inpatient Medications: Current Inpatient Medications Medications (Trade) Dose Ordered Sig/Rosetta Route Start Time Stop Time Status Last Admin Dose Admin Hydromorphone HCl (Dilaudid Inj) 1 mg Q2HWA PRN IV 12/18/17 12:45 01/01/18 12:44 Lactated Ringer's 1,000 ml @ 200 mls/hr Q5H IV 12/18/17 14:00 01/17/18 13:59 12/19/17 05:05 200 MLS/HR Ciprofloxacin/ Dextrose 400 mg/ Prmx 200 ml @ 100 mls/hr Q12H IV 12/18/17 22:00 12/28/17 09:59 12/19/17 09:15 100 MLS/HR Chlorthalidone (Hygroton Tab) 25 mg DAILY PO 12/19/17 09:00 01/18/18 08:59 12/19/17 09:00 25 MG Lorazepam (Ativan Tab) 0.5 mg Q6H PRN PO 12/18/17 14:45 01/17/18 14:44 Future Hold Losartan Potassium (coZAAR TAB) 100 mg QAM PO 12/19/17 09:00 01/18/18 08:59 12/19/17 08:59 100 MG Ranitidine HCl (zANTac TAB) 75 mg BID PO 12/18/17 21:00 01/17/18 20:59 12/19/17 08:59 75 MG Budesonide (Pulmicort Respules 0.5MG/ 2ML Neb Soln) 0.5 mg BIDR INH 12/18/17 20:00 01/17/18 19:59 12/19/17 07:16 0.5 MG Albuterol (Ventolin Hfa Inhaler) 2 puffs TID PRN INH 12/18/17 14:45 01/17/18 14:44 Amlodipine Besylate (Norvasc Tab) 10 mg DAILY PO 12/19/17 09:00 01/18/18 08:59 12/19/17 08:58 10 MG Dicyclomine HCl (Bentyl Cap) 10 mg TID PRN PO 12/18/17 14:45 01/17/18 14:44 12/19/17 09:44 10 MG Docusate Sodium (coLACE CAP) 100 mg BID PRN PO 12/18/17 14:45 01/17/18 14:44 Escitalopram Oxalate (Lexapro Tab) 15 mg QAM PO 12/19/17 09:00 01/18/18 08:59 12/19/17 09:00 15 MG Gabapentin (Neurontin Cap) 400 mg BID PO 12/18/17 21:00 01/17/18 20:59 12/19/17 08:59 400 MG Magnesium Oxide (Mag-Ox Tab) 400 mg QAM PO 12/19/17 09:00 01/18/18 08:59 12/19/17 09:00 400 MG Metoprolol Tartrate (Lopressor Tab) 50 mg BID PO 12/18/17 21:00 01/17/18 20:59 12/19/17 08:57 50 MG Mirtazapine (Remeron Tab) 30 mg HS PO 12/18/17 21:00 01/17/18 20:59 12/18/17 20:09 30 MG Pantoprazole Sodium (Protonix Tab) 40 mg BID PO 12/18/17 21:00 01/17/18 20:59 12/19/17 08:59 40 MG Ropinirole HCl (Requip Tab) 1 mg HS PO 12/18/17 21:00 01/17/18 20:59 12/18/17 20:10 1 MG Tramadol HCl (Ultram Tab) 50 mg HS PRN PO 12/18/17 14:45 01/17/18 14:44 12/18/17 15:29 50 MG Trazodone HCl (Desyrel Tab) 50 mg HS PO 12/18/17 21:00 01/17/18 20:59 12/18/17 20:08 50 MG Miscellaneous (Iv Fluids Completed) 1 ea PRN PRN N/A 12/18/17 14:45 12/18/18 14:44 Lorazepam (Ativan Inj) 1 mg Q4H PRN IV 12/18/17 14:45 01/17/18 14:44 Insulin Glargine (Lantus Solostar Pen) SEE PROTOCOL TEXT Q12 SC 12/19/17 09:00 01/18/18 08:59 12/19/17 09:15 40 UNITS Insulin Aspart (novoLOG ASPART) SLIDING SCALE If C... ACHS SC 12/18/17 16:15 01/17/18 16:14 12/19/17 09:11 10 UNITS Glucose (Glucose 40% Gel) 15-30 GRAMS 15 GRAMS... UD PRN PO 12/18/17 15:00 01/17/18 14:59 Glucose (Glucose Chew Tab) 4-8 Tablets 4 Tabl... UD PRN PO 12/18/17 15:00 01/17/18 14:59 Dextrose (Dextrose 50% 50ML Syringe) 25-50ML OF 50% DW IV FOR... UD PRN IV 12/18/17 15:00 01/17/18 14:59 Glucagon (Glucagon Inj) 1 mg UD PRN SQ 12/18/17 15:00 01/17/18 14:59 Miscellaneous Information (Consult Glycemic Management Pharmacy) 1 ea UD PRN N/A 12/18/17 14:57 01/17/18 14:56 Amylase/Lipase/ Protease (Pancreaze (Lipase 4,200U) Cap) 1 cap QID PO 12/18/17 17:00 01/17/18 16:59 12/19/17 08:58 1 CAP Nystatin (Mycostatin Susp) 5 ml QID PO 12/18/17 17:00 01/17/18 16:59 12/19/17 09:00 5 ML Acetaminophen (Tylenol Tab) 650 mg Q8 PRN PO 12/18/17 18:15 01/17/18 18:14 Ondansetron HCl (Zofran Inj) 4 mg Q6H PRN IV 12/18/17 19:15 01/17/18 19:14 12/18/17 20:06 4 MG Insulin Aspart (novoLOG ASPART) SLIDING SCALE If C... 0000,0400 SC 12/19/17 00:00 01/18/18 00:00 12/19/17 04:04 2 UNITS
[2017-12-19] MEDS ORDERED: MAG SULFATE 50% INJ 4 GM in SODIUM CHLORIDE 0.9% 500ML 500 ML IV SCH (13:15)
--- NOTE | 2017-12-19 15:40 | Pharmacy Progress Note ---
Pharmacy Glycemic Short Note 2 Date of Service Dec 19, 2017. OUTPATIENT ANTIDIABETIC REGIMEN: * Novolin 70/30 - 80 units twice daily + Novolog * A1c = 10.9 % 08/26/17 ASSESSMENT: From 12/18/17: * Ms Kaplan is a 77 y/o F with a PMH of COPD, recurrent pancreatitis, and DUANE who presents s/p ERCP. Her blood sugar this morning was 257 mg/dL and she did NOT take insulin this morning. Based upon previous admissions, the patient requires around 100 units/day and tolerates Lantus 40 units twice daily while NPO for at least 2 days. * Due to patient missing morning insulin, utilized Lantus 80 units (about 1.5 of one of her outpatient doses of basal) to "make up" for the missed basal insulin. Start scale the next day which will most likely need to be loosened in the upcoming days if the patient is still here. Will utilize Novolog based upon total daily dose of 100 units/day. 12/19/17 * BSGs greatly improved * Patient ordered Prednisone 50 mg PO x 3 doses today * Will tighten bolus insulin parameters to cover steroid induced hyperglycemia and add overnight checks * Basal insulin is currently ordered per scale based on BSG. PLAN FOR INPATIENT GLYCEMIC CONTROL: * Hold outpatient oral diabetes medications * Basal insulin * Lantus 40-60 units SQ BID * 40 units for BSG < 140, 50 units for BSG 140-250, 50 units for BSG > 250 * Bolus insulin * NovoLog per scale ACHS or Q6hrs while NPO * Goal Range: Low 110 mg/dL - High 140 mg/dL * Correction Factor: 10 mg/dL/unit * Nutritional / Prandial insulin per carb ratio of 1 unit per 3 grams CHO consumed Thank you.
[2017-12-19] MEDS: TRAZODONE HCL 50 MG TAB PO SCH (21:00)
[2017-12-19] MEDS: MIRTAZAPINE TAB 15 MG TAB PO SCH (21:17)
[2017-12-19] MEDS: ROPINIROLE HCL 1 MG TAB PO SCH (21:17)
[2017-12-20] VITALS (7 sets, daily range): BP systolic 131–166; BP diastolic 65–85; PULSE 60–80; TEMP 36.4–36.5; O2SAT 95–98
[2017-12-20] MEDS: INSULIN ASPART 100 UNITS/ML 3 ML PEN SC SCH ×8 (00:34→23:58)
[2017-12-20] MEDS ORDERED: OPTIRAY 320 IV PRN (01:00)
[2017-12-20] MEDS: LACTATED RINGER'S 1000ML 1,000 ML IV SCH ×4 (04:37→19:41)
[2017-12-20 05:34] LABS: ALBUMIN 2.9 gm/dl (3.4-5.0); ALKALINE PHOSPHATASE 110 U/L (45-117); ALT/SGPT 40 U/L (12-78); AST/SGOT 36 U/L (15-37); LIPASE 429 U/L (73-393); TOTAL PROTEIN 7.1 gm/dl (6.4-8.2)
[2017-12-20] MEDS: BUDESONIDE 0.5 MG/2 ML VIAL (PULMICORT) INH SCH (07:09)
[2017-12-20] MEDS: PANCREAZE (LIPASE 4,200U) CAP PO SCH ×4 (08:06→21:07)
[2017-12-20] MEDS: GABAPENTIN 400 MG CAP PO SCH ×2 (08:28→21:07)
[2017-12-20] MEDS: LOSARTAN POTASSIUM 50 MG TAB PO SCH (08:28)
[2017-12-20] MEDS: ESCITALOPRAM OXALATE 10 MG TAB PO SCH (08:28)
[2017-12-20] MEDS: METOPROLOL TARTRATE 50 MG TAB PO SCH ×2 (08:28→21:11)
[2017-12-20] MEDS: RANITIDINE HCL 150 MG TAB PO SCH ×2 (08:29→21:09)
[2017-12-20] MEDS: CHLORTHALIDONE 25 MG TAB PO SCH (08:29)
[2017-12-20] MEDS: AMLODIPINE BESYLATE 5 MG TAB PO SCH (08:29)
[2017-12-20] MEDS: DICYCLOMINE HCL 10 MG CAP PO PRN (08:29)
[2017-12-20] MEDS: PANTOprazole SOD 40 MG TAB PO SCH ×2 (08:29→21:07)
[2017-12-20] MEDS: NYSTATIN SUSP 500,000 U/5 ML UDC PO SCH ×4 (08:30→21:08)
[2017-12-20] MEDS: MAGNESIUM OXIDE 400 MG TAB PO SCH (08:32)
[2017-12-20] MEDS: INSULIN GLARGINE SOLOSTAR 100 UNITS/ML 3 ML PEN SC SCH ×2 (08:40→21:19)
--- NOTE | 2017-12-20 09:58 | DIAGNOSTIC IMAGING REPORT ---
CT OF THE ABDOMEN AND PELVIS WITH CONTRAST CLINICAL HISTORY: Severe upper abdominal pain status post ERCP. Evaluate for acute pancreatitis. COMPARISON STUDY: CT of the abdomen and pelvis October 15, 2017. TECHNIQUE: The patient was premedicated for an IV dye allergy. Following IV administration of 100 mL of Optiray-320, axial images of the abdomen and pelvis were obtained from the lung bases to the proximal femurs. Images were reviewed in the axial, sagittal, and coronal planes. IV contrast was administered without complication. A dose lowering technique was utilized adhering to the principles of ALARA. CT DOSE: 586.09 mGy.cm FINDINGS: There is no biliary ductal dilatation status post cholecystectomy. A pancreatic stent appears appropriately positioned. This is located within the pancreatic duct with proximal aspect within the body and distal aspect within the duodenum. Trace gas along the stent is related to recent procedure. There is no dilatation of the main pancreatic duct. A tubular structure within the uncinate process is unchanged. There is mild peripancreatic infiltration. There is no peripancreatic fluid collection. The gland enhances. A few calcifications within the uncinate process are noted. There may be fatty infiltration of the liver. 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 There is no evidence for a bowel obstruction. There is colonic diverticulosis without evidence for acute diverticulitis. There is avascular necrosis of both femoral heads without collapse by CT. IMPRESSION: 1. Mild peripancreatic infiltration consistent with acute pancreatitis. No evidence of pancreatic necrosis. No peripancreatic fluid collections. Appropriately positioned pancreatic stent. Findings discussed with Dr. Guerra at time of dictation. 2. No biliary ductal dilatation status post cholecystectomy. 3. No change in several prominent peripancreatic lymph nodes. These are likely benign given stability. 4. Avascular necrosis of the bilateral femoral heads without collapse. Electronically signed by: Brijesh Jeter M.D. 12/20/2017 9:56 AM Dictated Date/Time: 12/20/2017 9:42 AM
[2017-12-20] MEDS: CIPROFLOXACIN / D5W 400 MG in PREMIXED IN D5W 200 ML IV SCH ×2 (10:15→21:13)
[2017-12-20 11:50] LABS: INR 1.1 (0.9-1.1); PTT PATIENT 25.7 SECONDS (21.0-31.0)
[2017-12-20] MEDS: ENOXAPARIN 40 MG/0.4 ML SYR SQ SCH (17:58)
--- NOTE | 2017-12-20 18:04 | Progress Note ---
Progress Note Date of Service Dec 20, 2017. Progress Note Pt continues to report moderate abd pain, increased from baseline. + flatus. + hunger. Of note, when I saw pt, she had walked up to nurses station, asking when her dinner tray would be. Date Time Temp Pulse Resp B/P (MAP) Pulse Ox O2 Delivery O2 Flow Rate FiO2 12/20/17 15:09 36.4 62 27 131/83 (99) 96 Room Air 12/20/17 14:30 Room Air 12/20/17 12:25 36.5 60 16 145/70 (95) 95 Room Air 12/20/17 08:00 Room Air 12/20/17 07:47 36.4 68 18 159/85 (109) 97 12/20/17 07:09 80 18 98 Room Air 12/20/17 04:00 Room Air 12/20/17 03:45 36.4 61 20 158/82 (107) 96 Room Air 12/20/17 00:00 Room Air 12/19/17 23:30 36.4 60 20 159/83 (108) 95 Room Air 12/19/17 20:40 36.5 60 18 137/68 (91) 95 Room Air 12/19/17 20:00 Room Air 12/19/17 19:26 64 18 94 Room Air Appears comfortable. Abd is soft and mildly diffusely tender Labs reviewed - lipase decreased a/p: Post - ERCP pancreatitis, clinically resolved. Adv diet as tolerated, d/c IVF's. OK for d.c once bryan full po.
--- NOTE | 2017-12-20 18:15 | Progress Note ---
Medicine Progress Note Date & Time of Visit: Dec 20, 2017 at 09:55. Subjective 77 yo F with recurrent pancreatitis and h/o pancreatic cysts who presents s/p EUS with biopsy and ERCP with pancreatic stent placement for stricture yesterday. Did well overnight-no narcotics required and slept well. Some overnight confusion but this resolved w reorientation. Feeling hungry this morning and wants to try some food. Will order a diet for lunch and transfer off telemetry. CT reading came back consistent with acute pancreatitis without any complications. Pancreatic stent was in correct place. Lipase this morning was in 400s. Objective Last 8 Hrs Date Time Temp Pulse Resp B/P (MAP) Pulse Ox O2 Delivery O2 Flow Rate FiO2 12/20/17 07:47 36.4 68 18 159/85 (109) 97 12/20/17 07:09 80 18 98 Room Air 12/20/17 04:00 Room Air 12/20/17 03:45 36.4 61 20 158/82 (107) 96 Room Air Physical Exam: GEN: WNWD, NAD, alert and appropriate HEENT: NC/AT, normal sclerae, MMM CARDIO: reg rate, S1/2 heard without m/g/r, anterior R chest wall port that is accessed. LUNGS: CTA bilaterally, no crackles, rales or wheezes, good diaphragmatic excursion ABD: soft, mild epigastric TTP otherwise no tenderness, non-distended, no rebound or guarding, +BS EXTREMITY: RP and DP palpable 2+ bilat, no LE swelling or edema, extremities are warm and well-perfused NEURO: CN 2-12 grossly intact MUSC: moves all extremities equally, no gross focal deficits. SKIN: warm and dry Laboratory Results: 12/19/17 06:30 12/19/17 06:30 Test 12/18/17 11:47 12/18/17 13:51 12/19/17 06:30 12/20/17 04:46 Globulin 3.8 gm/dl (2.5-4.0) Albumin/Globulin Ratio 0.8 (0.9-2) Red Blood Count 3.97 M/uL (4.2-5.4) Mean Corpuscular Volume 86.9 fL (80-100) Mean Corpuscular Hemoglobin 31.0 pg (25-34) Mean Corpuscular Hemoglobin Concent 35.7 g/dl (32-36) RDW Standard Deviation 42.1 fL (36.4-46.3) RDW Coefficient of Variation 13.1 % (11.5-14.5) Mean Platelet Volume 9.2 fL (7.4-10.4) Anion Gap 6.0 mmol/L (3-11) Est Creatinine Clear Calc Drug Dose 38.4 ml/min Estimated GFR () 56.1 Estimated GFR (Non- 48.4 BUN/Creatinine Ratio 13.4 (10-20) Estimated Average Glucose 249 mg/dl Hemoglobin A1c 10.3 % (4.5-5.6) Calcium Level 8.3 mg/dl (8.5-10.1) Magnesium Level 2.7 mg/dl (1.8-2.4) Total Bilirubin 0.3 mg/dl (0.2-1) Direct Bilirubin < 0.1 mg/dl (0-0.2) Aspartate Amino Transf (AST/SGOT) 36 U/L (15-37) Alanine Aminotransferase (ALT/SGPT) 40 U/L (12-78) Alkaline Phosphatase 110 U/L (45-117) Total Protein 7.1 gm/dl (6.4-8.2) Albumin 2.9 gm/dl (3.4-5.0) Lipase 429 U/L (73-393) Test 12/20/17 11:29 12/20/17 16:57 Prothrombin Time 11.1 SECONDS (9.0-12.0) Prothromb Time International Ratio 1.1 (0.9-1.1) Activated Partial Thromboplast Time 25.7 SECONDS (21.0-31.0) Partial Thromboplastin Ratio 1.0 Bedside Glucose 221 mg/dl (70-90) Last 24 Hours Test 12/19/17 11:17 12/19/17 16:19 12/19/17 17:42 12/19/17 19:58 Bedside Glucose 226 mg/dl 101 mg/dl 132 mg/dl 206 mg/dl Test 12/20/17 00:25 12/20/17 04:37 12/20/17 04:46 12/20/17 07:03 Bedside Glucose 271 mg/dl 150 mg/dl 160 mg/dl Magnesium Level 2.7 mg/dl Total Bilirubin 0.3 mg/dl Direct Bilirubin < 0.1 mg/dl Aspartate Amino Transf (AST/SGOT) 36 U/L Alanine Aminotransferase (ALT/SGPT) 40 U/L Alkaline Phosphatase 110 U/L Total Protein 7.1 gm/dl Albumin 2.9 gm/dl Lipase 429 U/L Assessment & Plan 77 yo F with recurrent pancreatitis and h/o pancreatic cysts who presents s/p EUS with biopsy and ERCP with pancreatic stent placement for stricture yesterday. Did well overnight-no narcotics required and slept well. Some overnight confusion but this resolved w reorientation. Feeling hungry this morning and wants to try some food. Will order a diet for lunch and transfer off telemetry. CT reading came back consistent with acute pancreatitis without any complications. Pancreatic stent was in correct place. Lipase this morning was in 400s. 1. Abdominal pain 2/2 post-procedure pancreatitis-improved. Start diet. Slow IVF until tolerating PO reliably. Cont pain control as needed. Cont IV cipro per GI for 3 days. assisted plan post-procedure is to repeat ERCP in 3 months to remove stent. 2. DMII-poorly controlled w A1C 11 in Aug 2017. Controlled as inpatient with ISS and Glargine. Apprec pharmacy consult as inpatient. Gabapentin for neuropathic pain. 3. COPD-stable, no wheezing. Recently completed course of steroids. Supplemental O2 as needed. Home inhalers. 4. HTN-controlled. Home meds including metoprolol, amlodipine, losartan, chlorthalidone. 5. h/o ASA and Plavix for now s/p ERCP. DVT Ppx: Lovenox Code status: FULL PCP: Ronny Dispo: med/surg DO Florence Pereira Hospitalist Consultants: GI-Dr. Lopez Current Inpatient Medications: Current Inpatient Medications Medications (Trade) Dose Ordered Sig/Rosetta Route Start Time Stop Time Status Last Admin Dose Admin Lactated Ringer's 1,000 ml @ 200 mls/hr Q5H IV 12/18/17 14:00 01/17/18 13:59 Future hold 12/20/17 04:37 200 MLS/HR Ciprofloxacin/ Dextrose 400 mg/ Prmx 200 ml @ 100 mls/hr Q12H IV 12/18/17 22:00 12/28/17 09:59 12/19/17 21:34 100 MLS/HR Chlorthalidone (Hygroton Tab) 25 mg DAILY PO 12/19/17 09:00 01/18/18 08:59 12/20/17 08:29 25 MG Lorazepam (Ativan Tab) 0.5 mg Q6H PRN PO 12/18/17 14:45 01/17/18 14:44 Future hold Losartan Potassium (coZAAR TAB) 100 mg QAM PO 12/19/17 09:00 01/18/18 08:59 12/20/17 08:28 100 MG Ranitidine HCl (zANTac TAB) 75 mg BID PO 12/18/17 21:00 01/17/18 20:59 12/20/17 08:29 75 MG Budesonide (Pulmicort Respules 0.5MG/ 2ML Neb Soln) 0.5 mg BIDR INH 12/18/17 20:00 01/17/18 19:59 12/20/17 07:09 0.5 MG Albuterol (Ventolin Hfa Inhaler) 2 puffs TID PRN INH 12/18/17 14:45 01/17/18 14:44 Amlodipine Besylate (Norvasc Tab) 10 mg DAILY PO 12/19/17 09:00 01/18/18 08:59 12/20/17 08:29 10 MG Dicyclomine HCl (Bentyl Cap) 10 mg TID PRN PO 12/18/17 14:45 01/17/18 14:44 12/20/17 08:29 10 MG Docusate Sodium (coLACE CAP) 100 mg BID PRN PO 12/18/17 14:45 01/17/18 14:44 Escitalopram Oxalate (Lexapro Tab) 15 mg QAM PO 12/19/17 09:00 01/18/18 08:59 12/20/17 08:28 15 MG Gabapentin (Neurontin Cap) 400 mg BID PO 12/18/17 21:00 01/17/18 20:59 12/20/17 08:28 400 MG Magnesium Oxide (Mag-Ox Tab) 400 mg QAM PO 12/19/17 09:00 01/18/18 08:59 12/19/17 09:00 400 MG Metoprolol Tartrate (Lopressor Tab) 50 mg BID PO 12/18/17 21:00 01/17/18 20:59 12/20/17 08:28 50 MG Mirtazapine (Remeron Tab) 30 mg HS PO 12/18/17 21:00 01/17/18 20:59 12/19/17 21:17 30 MG Pantoprazole Sodium (Protonix Tab) 40 mg BID PO 12/18/17 21:00 01/17/18 20:59 12/20/17 08:29 40 MG Ropinirole HCl (Requip Tab) 1 mg HS PO 12/18/17 21:00 01/17/18 20:59 12/19/17 21:17 1 MG Tramadol HCl (Ultram Tab) 50 mg HS PRN PO 12/18/17 14:45 01/17/18 14:44 12/18/17 15:29 50 MG Trazodone HCl (Desyrel Tab) 50 mg HS PO 12/18/17 21:00 01/17/18 20:59 12/18/17 20:08 50 MG Miscellaneous (Iv Fluids Completed) 1 ea PRN PRN N/A 12/18/17 14:45 12/18/18 14:44 Insulin Glargine (Lantus Solostar Pen) SEE PROTOCOL TEXT Q12 SC 12/19/17 09:00 01/18/18 08:59 12/20/17 08:40 40 UNITS Insulin Aspart (novoLOG ASPART) SLIDING SCALE If C... ACHS SC 12/18/17 16:15 01/17/18 16:14 12/19/17 21:19 7 UNITS Glucose (Glucose 40% Gel) 15-30 GRAMS 15 GRAMS... UD PRN PO 12/18/17 15:00 01/17/18 14:59 Glucose (Glucose Chew Tab) 4-8 Tablets 4 Tabl... UD PRN PO 12/18/17 15:00 01/17/18 14:59 Dextrose (Dextrose 50% 50ML Syringe) 25-50ML OF 50% DW IV FOR... UD PRN IV 12/18/17 15:00 01/17/18 14:59 Glucagon (Glucagon Inj) 1 mg UD PRN SQ 12/18/17 15:00 01/17/18 14:59 Miscellaneous Information (Consult Glycemic Management Pharmacy) 1 ea UD PRN N/A 12/18/17 14:57 01/17/18 14:56 Amylase/Lipase/ Protease (Pancreaze (Lipase 4,200U) Cap) 1 cap QID PO 12/18/17 17:00 01/17/18 16:59 12/19/17 21:17 1 CAP Nystatin (Mycostatin Susp) 5 ml QID PO 12/18/17 17:00 01/17/18 16:59 12/20/17 08:30 5 ML Acetaminophen (Tylenol Tab) 650 mg Q8 PRN PO 12/18/17 18:15 01/17/18 18:14 Insulin Aspart (novoLOG ASPART) SLIDING SCALE If C... 0000,0400 SC 12/19/17 00:00 01/18/18 00:00 12/20/17 00:34 14 UNITS Ondansetron HCl (Zofran Inj) 4 mg Q8H PRN IV. 12/19/17 10:45 01/18/18 10:44 Morphine Sulfate (MoRPHine SULFATE INJ) 2 mg Q2H PRN IV 12/19/17 10:45 01/02/18 10:44 Heparin Sodium (Porcine) (Heparin 100 Unit/ml 5ml Flush) 5 ml PRN PRN IV 12/20/17 00:30 01/19/18 00:29 Ioversol (Optiray 320) 100 ml UD PRN IV 12/20/17 01:00 12/24/17 00:59
--- NOTE | 2017-12-20 18:27 | Pharmacy Progress Note ---
Pharmacy Glycemic Short Note 2 Date of Service Dec 20, 2017. OUTPATIENT ANTIDIABETIC REGIMEN: * Novolin 70/30 - 80 units twice daily + Novolog * A1c = 10.9 % 08/26/17 ASSESSMENT: From 12/18/17: * Ms Kaplan is a 77 y/o F with a PMH of COPD, recurrent pancreatitis, and DUANE who presents s/p ERCP. Her blood sugar this morning was 257 mg/dL and she did NOT take insulin this morning. Based upon previous admissions, the patient requires around 100 units/day and tolerates Lantus 40 units twice daily while NPO for at least 2 days. * Due to patient missing morning insulin, utilized Lantus 80 units (about 1.5 of one of her outpatient doses of basal) to "make up" for the missed basal insulin. Start scale the next day which will most likely need to be loosened in the upcoming days if the patient is still here. Will utilize Novolog based upon total daily dose of 100 units/day. 12/19/17 * BSGs greatly improved * Patient ordered Prednisone 50 mg PO x 3 doses today * Will tighten bolus insulin parameters to cover steroid induced hyperglycemia and add overnight checks * Basal insulin is currently ordered per scale based on BSG. 12/20/17 * Diet advanced. Patient continues to require significant amounts of prandial insulin despite last dose of prednisone being last evening * Angelica was administered 132 units on 12/19. BSGs: 148, 226, 101, 206, 271, 150 * Bolus insulin parameters were tightened yesterday - I will further tighten today * Fasting BSG above goal - will continue to titrate basal insulin (pt will likely receive 50-60 units tonight) * Of note, patient did refuse novolog dose this morning PLAN FOR INPATIENT GLYCEMIC CONTROL * Basal insulin * Lantus 40-60 units SQ BID * 40 units for BSG < 140, 50 units for BSG 140-180, 50 units for BSG > 180 * Bolus insulin - tighten * NovoLog per scale ACHS or Q6hrs while NPO * Goal Range: Low 110 mg/dL - High 140 mg/dL * Correction Factor: 6 mg/dL/unit * Nutritional / Prandial insulin per carb ratio of 1 unit per 2.5 grams CHO consumed * Continue overnight checks with coverage at 00 and 04 Thank you.
[2017-12-20] MEDS: MIRTAZAPINE TAB 15 MG TAB PO SCH (21:06)
[2017-12-20] MEDS: TRAZODONE HCL 50 MG TAB PO SCH (21:07)
[2017-12-20] MEDS: ROPINIROLE HCL 1 MG TAB PO SCH (21:09)
[2017-12-21] MEDS: DEXTROSE 50% 50 ML SYR IV PRN ×2 (00:06→11:15)
[2017-12-21] MEDS: LACTATED RINGER'S 1000ML 1,000 ML IV SCH (03:08)
[2017-12-21] MEDS: INSULIN ASPART 100 UNITS/ML 3 ML PEN SC SCH ×5 (03:59→21:00)
[2017-12-21 05:56] LABS: HEMATOCRIT 32.5 % (37-47); HEMOGLOBIN 11.3 g/dL (12.0-16.0); MEAN CELL VOLUME 88.3 fL (80-100); MEAN CORPUSCULAR HEMOGLOBIN 30.7 pg (25-34); MEAN CORPUSCULAR HGB CONC 34.8 g/dl (32-36); MEAN PLATELET VOLUME 9.3 fL (7.4-10.4); PLATELET COUNT 216 K/uL (130-400); RED CELL DISTRIBUTION WIDTH CV 13.7 % (11.5-14.5); RED CELL DISTRIBUTION WIDTH SD 44.2 fL (36.4-46.3)
[2017-12-21 06:36] LABS: ALBUMIN 2.6 gm/dl (3.4-5.0); ALT/SGPT 49 U/L (12-78); AST/SGOT 55 U/L (15-37); CALCIUM 8.4 mg/dl (8.5-10.1); CARBON DIOXIDE 28 mmol/L (21-32); CREATININE 1.38 mg/dl (0.60-1.20); GLUCOSE 87 mg/dl (70-99); LIPASE 263 U/L (73-393); POTASSIUM 3.5 mmol/L (3.5-5.1); SODIUM 141 mmol/L (136-145)
[2017-12-21 06:49] LABS: ALKALINE PHOSPHATASE 92 U/L (45-117); TOTAL PROTEIN 5.9 gm/dl (6.4-8.2)
[2017-12-21 06:51] VITALS: BP 119/68; PULSE 60; TEMP 36.7; O2SAT 93
[2017-12-21 06:55] LABS: BLOOD UREA NITROGEN 24 mg/dl (7-18)
[2017-12-21] MEDS: BUDESONIDE 0.5 MG/2 ML VIAL (PULMICORT) INH SCH ×2 (07:15→20:17)
[2017-12-21 07:16] VITALS: PULSE 60; O2SAT 93
--- NOTE | 2017-12-21 07:34 | Anesthesiology Progress Note ---
Anesthesia Post Op Note Date & Time Dec 21, 2017 at 07:33 Vital Signs Pain Intensity: 0.0 Vital Signs Past 12 Hours Date Time Temp Pulse Resp B/P (MAP) Pulse Ox O2 Delivery O2 Flow Rate FiO2 12/21/17 07:16 60 16 93 Room Air 12/21/17 06:51 36.7 60 19 119/68 (85) 93 Room Air 12/20/17 23:11 36.5 61 16 166/65 (98) 95 Room Air 12/20/17 21:10 78 147/70 (95) 12/20/17 19:50 Room Air Notes Mental Status: participated in evaluation Pt Amnestic to Procedure: Yes Nausea / Vomiting: improving with treatment Pain: adequately controlled Airway Patency, RR, SpO2: stable & adequate BP & HR: stable & adequate Hydration State: stable & adequate
[2017-12-21] MEDS: INSULIN GLARGINE SOLOSTAR 100 UNITS/ML 3 ML PEN SC SCH (09:00)
[2017-12-21] MEDS: NYSTATIN SUSP 500,000 U/5 ML UDC PO SCH ×4 (09:00→21:20)
[2017-12-21] MEDS ORDERED: INSULIN GLARGINE SOLOSTAR 100 UNITS/ML 3 ML PEN SC SCH (09:30)
--- NOTE | 2017-12-21 11:36 | Progress Note ---
Progress Note Date of Service Dec 21, 2017. (Vidya Andrade CRNP) Progress Note Pt is a 77 y/o female w hx of chronic pancreatitis. S/P EUS/ERCP by Dr. Mcfadden on 12/18/17: fatty liver, chronic pancreatitis, dorsal pancreatic duct stent in place, cystic lesion in pancreas head which was biopsied, pancreatic duct stricture, pancreatic divisum w/ pancreatic duct stent placement. FNA of pancreas cysteic lesion pending. Attempted to see pt today. She's fast asleep hard to wake up. Spoke w RN who reports they've been having issues with pt's hypoglycemia. No issues w her having abd pain, n/v. Her LFTs are grossly normal, Lipase normalized. - Currently no new GI plans - Will plan to have her repeat ERCP in 3 month's time to get stent out. (Vidya Andrade CRNP) I have seen and examined the patient with JOE Del Rosario whose note reflects our findings and plan, (Tracy Sinha, DO)
[2017-12-21 12:00] VITALS: BP 166/66; PULSE 62; PULSE 63
[2017-12-21] MEDS: CIPROFLOXACIN 500 MG TAB PO SCH ×2 (12:01→21:28)
[2017-12-21] MEDS: GABAPENTIN 400 MG CAP PO SCH ×2 (12:02→21:20)
[2017-12-21] MEDS: PANTOprazole SOD 40 MG TAB PO SCH ×2 (12:02→21:21)
[2017-12-21] MEDS: PANCREAZE (LIPASE 4,200U) CAP PO SCH ×4 (12:02→21:20)
[2017-12-21] MEDS: RANITIDINE HCL 150 MG TAB PO SCH ×2 (12:03→21:21)
[2017-12-21] MEDS: METOPROLOL TARTRATE 50 MG TAB PO SCH ×2 (12:04→21:00)
[2017-12-21] MEDS: LOSARTAN POTASSIUM 50 MG TAB PO SCH (12:05)
[2017-12-21] MEDS: CHLORTHALIDONE 25 MG TAB PO SCH (12:05)
[2017-12-21] MEDS: MAGNESIUM OXIDE 400 MG TAB PO SCH (12:05)
[2017-12-21] MEDS: AMLODIPINE BESYLATE 5 MG TAB PO SCH (12:06)
[2017-12-21] MEDS: ESCITALOPRAM OXALATE 10 MG TAB PO SCH (12:06)
[2017-12-21] MEDS ORDERED: NURSING VERBAL MED ORDER ONE ×2 (12:45→14:45)
[2017-12-21 14:52] VITALS: BP 116/71; PULSE 58; TEMP 36.6; O2SAT 92
--- NOTE | 2017-12-21 15:47 | Pharmacy Progress Note ---
Pharmacy Glycemic Short Note 2 Date of Service Dec 21, 2017. OUTPATIENT ANTIDIABETIC REGIMEN: * Novolin 70/30 - 80 units twice daily + Novolog * A1c = 10.9 % 08/26/17 ASSESSMENT: * See progress note from 12/20 for more background info, in short: * Pt receiving SQ basal bolus insulin regimen for hyperglycemia secondary to baseline DM (outpatient regimen on hold), stress/infection, and steroids * Last dose of prednisone was administered 12/20 @ 2100 * BSGs over the past 24hrs; 160, 236, 221, 204, 69 * Basal and bolus insulin was increased yesterday because BSGs remained > 200 mg/dl despite steroid effect wearing off. However, it was later discovered that patient had been snacking between meals and snacks were not covered, therefore hyperglycemia was due to lack of carb coverage rather than inadequate dosing parameters. Patient became hypoglycemic early in the morning with BSG of 55 mg/ dL. Hypoglycemia persisted until lunch time. This was likely due to too much basal insulin. A half dose of Lantus was ordered and RN was instructed to hold further insulin until BSG > 120 mg/dL x 2 readings. Mental status improving - patient more alert. * Changes needed to insulin regimen: * AM Fasting BSG = 87 mg/dl. This is slightly below goal range for patient based on inpatient targets and co-morbidities. Therefore Basal insulin needs decreased. * Post-prandial BSGs were elevated but are trending downwards throughout the day (insulin stacking) therefore need to loosen CF/CR. Will resume CF/CR of 15/ 5 which she has previously tolerated well. PLAN FOR INPATIENT GLYCEMIC CONTROL * Basal insulin - decrease * Lantus 20 units SQ this am, then Lantus 35-40 units SQ BID * 35 units for BSG < 140, 40 units for BSG 140 or more * Bolus insulin - loosen * NovoLog per scale ACHS or Q6hrs while NPO * Goal Range: Low 110 mg/dL - High 140 mg/dL * Correction Factor: 15 mg/dL/unit * Nutritional / Prandial insulin per carb ratio of 1 unit per 5 grams CHO consumed Thank you.
[2017-12-21 15:59] VITALS: Ht 152.4 cm; Wt 75.8 kg
[2017-12-21] MEDS: ENOXAPARIN 40 MG/0.4 ML SYR SQ SCH (16:11)
[2017-12-21] MEDS: ACETAMINOPHEN 325 MG TAB PO PRN (16:26)
--- NOTE | 2017-12-21 16:56 | Progress Note ---
Medicine Progress Note Date & Time of Visit: Dec 21, 2017 at 09:27. Subjective 77 yo F with recurrent pancreatitis and h/o pancreatic cysts who presents with pain s/p EUS with biopsy and ERCP with pancreatic stent placement for stricture 12/18. Some overnight confusion likely related to overnight hypoglycemia from overdosing on Novolog. She had snacks that weren't being covered yesterday ausing pharmacy to tighten control, also pt had large dose of Lantus last night , likely contributing. Lethargic but improved from an abdominal pain standpoint. Pt not able to speak with me much as very difficult to arouse. Able to follow intermittent instructions, however. Objective Last 8 Hrs Date Time Temp Pulse Resp B/P (MAP) Pulse Ox O2 Delivery O2 Flow Rate FiO2 12/21/17 07:40 Room Air 12/21/17 07:16 60 16 93 Room Air 12/21/17 06:51 36.7 60 19 119/68 (85) 93 Room Air Physical Exam: GEN: obese, lethargic, difficult to arouse. HEENT: NC/AT, normal sclerae, MMM CARDIO: reg rate, S1/2 heard without m/g/r, anterior R chest wall port that is accessed. LUNGS: CTA bilaterally, no crackles, rales or wheezes, good diaphragmatic excursion-limited exam ABD: soft, nontender, non-distended, no rebound or guarding, +BS EXTREMITY: no LE swelling or edema, extremities are warm and well-perfused N/M: moves all extremities equally, no gross focal deficits. SKIN: warm and dry Laboratory Results: 12/21/17 05:40 12/21/17 05:40 Test 12/18/17 11:47 12/18/17 13:51 12/19/17 06:30 12/20/17 11:29 Globulin 3.8 gm/dl (2.5-4.0) Albumin/Globulin Ratio 0.8 (0.9-2) Estimated Average Glucose 249 mg/dl Hemoglobin A1c 10.3 % (4.5-5.6) Prothrombin Time 11.1 SECONDS (9.0-12.0) Prothromb Time International Ratio 1.1 (0.9-1.1) Activated Partial Thromboplast Time 25.7 SECONDS (21.0-31.0) Partial Thromboplastin Ratio 1.0 Test 12/21/17 05:40 12/21/17 12:07 Red Blood Count 3.68 M/uL (4.2-5.4) Mean Corpuscular Volume 88.3 fL (80-100) Mean Corpuscular Hemoglobin 30.7 pg (25-34) Mean Corpuscular Hemoglobin Concent 34.8 g/dl (32-36) RDW Standard Deviation 44.2 fL (36.4-46.3) RDW Coefficient of Variation 13.7 % (11.5-14.5) Mean Platelet Volume 9.3 fL (7.4-10.4) Anion Gap 5.0 mmol/L (3-11) Est Creatinine Clear Calc Drug Dose 31.1 ml/min Estimated GFR () 42.6 Estimated GFR (Non- 36.8 BUN/Creatinine Ratio 17.5 (10-20) Calcium Level 8.4 mg/dl (8.5-10.1) Magnesium Level 2.1 mg/dl (1.8-2.4) Total Bilirubin 0.2 mg/dl (0.2-1) Direct Bilirubin < 0.1 mg/dl (0-0.2) Aspartate Amino Transf (AST/SGOT) 55 U/L (15-37) Alanine Aminotransferase (ALT/SGPT) 49 U/L (12-78) Alkaline Phosphatase 92 U/L (45-117) Total Protein 5.9 gm/dl (6.4-8.2) Albumin 2.6 gm/dl (3.4-5.0) Lipase 263 U/L (73-393) Bedside Glucose 73 mg/dl (70-90) Last 24 Hours Test 12/20/17 11:17 12/20/17 11:29 12/20/17 11:34 12/20/17 16:57 Bedside Glucose 236 mg/dl 228 mg/dl 221 mg/dl Prothrombin Time 11.1 SECONDS Prothromb Time International Ratio 1.1 Activated Partial Thromboplast Time 25.7 SECONDS Partial Thromboplastin Ratio 1.0 Test 12/20/17 20:49 12/20/17 23:46 12/21/17 00:02 12/21/17 00:20 Bedside Glucose 204 mg/dl 69 mg/dl 66 mg/dl 145 mg/dl Test 12/21/17 02:16 12/21/17 03:57 12/21/17 05:40 Bedside Glucose 75 mg/dl 86 mg/dl White Blood Count 14.10 K/uL Red Blood Count 3.68 M/uL Hemoglobin 11.3 g/dL Hematocrit 32.5 % Mean Corpuscular Volume 88.3 fL Mean Corpuscular Hemoglobin 30.7 pg Mean Corpuscular Hemoglobin Concent 34.8 g/dl RDW Standard Deviation 44.2 fL RDW Coefficient of Variation 13.7 % Platelet Count 216 K/uL Mean Platelet Volume 9.3 fL Sodium Level 141 mmol/L Potassium Level 3.5 mmol/L Chloride Level 108 mmol/L Carbon Dioxide Level 28 mmol/L Anion Gap 5.0 mmol/L Blood Urea Nitrogen 24 mg/dl Creatinine 1.38 mg/dl Est Creatinine Clear Calc Drug Dose 31.1 ml/min Estimated GFR () 42.6 Estimated GFR (Non- 36.8 BUN/Creatinine Ratio 17.5 Random Glucose 87 mg/dl Calcium Level 8.4 mg/dl Magnesium Level 2.1 mg/dl Total Bilirubin 0.2 mg/dl Direct Bilirubin < 0.1 mg/dl Aspartate Amino Transf (AST/SGOT) 55 U/L Alanine Aminotransferase (ALT/SGPT) 49 U/L Alkaline Phosphatase 92 U/L Total Protein 5.9 gm/dl Albumin 2.6 gm/dl Lipase 263 U/L Assessment & Plan 77 yo F with recurrent pancreatitis and h/o pancreatic cysts who presents with pain s/p EUS with biopsy and ERCP with pancreatic stent placement for stricture 12/18. Some overnight confusion likely related to overnight hypoglycemia from overdosing on Novolog. She had snacks that weren't being covered yesterday ausing pharmacy to tighten control, also pt had large dose of Lantus last night , likely contributing. Lethargic but improved from an abdominal pain standpoint. 1. Encephalopathy 2/2 hypoglycemia-hold insulin, give dextrose and food. Resolving slowly. 2. Abdominal pain 2/2 post-procedure pancreatitis-improved. Tolerated diet yesterday and again after awakening today. Cont pain control as needed. Cont IV cipro per GI for 3 days. exterminator plan post-procedure is to repeat ERCP in 3 months to remove stent. 3. DMII-poorly controlled w A1C 11 in Aug 2017. Hypoglycemic overnight 2/2 overcontrol . Situation rectified with holding insulin and giving dextrose and food until she was more awake. Apprec pharmacy consult as inpatient. Gabapentin for neuropathic pain. 4. COPD-stable, no wheezing. Recently completed course of steroids. Supplemental O2 as needed. Home inhalers. 5. HTN-controlled. Home meds including metoprolol, amlodipine, losartan, chlorthalidone. 6. h/o CVA-was holding ASA and plavix post-procedure, will restart at this time. will also restart Lipitor which was held at admission. 7. [id number] give more IVF and recheck in am. DVT Ppx: Lovenox Code status: FULL PCP: Ronny Dispo: med/surg DO Florence Pereira Hospitalist Consultants: Ariana Sinha Current Inpatient Medications: Current Inpatient Medications Medications (Trade) Dose Ordered Sig/Rosetta Route Start Time Stop Time Status Last Admin Dose Admin Chlorthalidone (Hygroton Tab) 25 mg DAILY PO 12/19/17 09:00 01/18/18 08:59 12/20/17 08:29 25 MG Lorazepam (Ativan Tab) 0.5 mg Q6H PRN PO 12/18/17 14:45 01/17/18 14:44 Future Hold 12/20/17 14:35 0.5 MG Losartan Potassium (coZAAR TAB) 100 mg QAM PO 12/19/17 09:00 01/18/18 08:59 12/20/17 08:28 100 MG Ranitidine HCl (zANTac TAB) 75 mg BID PO 12/18/17 21:00 01/17/18 20:59 12/20/17 21:09 75 MG Budesonide (Pulmicort Respules 0.5MG/ 2ML Neb Soln) 0.5 mg BIDR INH 12/18/17 20:00 01/17/18 19:59 12/21/17 07:15 0.5 MG Albuterol (Ventolin Hfa Inhaler) 2 puffs TID PRN INH 12/18/17 14:45 01/17/18 14:44 Amlodipine Besylate (Norvasc Tab) 10 mg DAILY PO 12/19/17 09:00 01/18/18 08:59 12/20/17 08:29 10 MG Dicyclomine HCl (Bentyl Cap) 10 mg TID PRN PO 12/18/17 14:45 01/17/18 14:44 12/20/17 08:29 10 MG Docusate Sodium (coLACE CAP) 100 mg BID PRN PO 12/18/17 14:45 01/17/18 14:44 Escitalopram Oxalate (Lexapro Tab) 15 mg QAM PO 12/19/17 09:00 01/18/18 08:59 12/20/17 08:28 15 MG Gabapentin (Neurontin Cap) 400 mg BID PO 12/18/17 21:00 01/17/18 20:59 12/20/17 21:07 400 MG Magnesium Oxide (Mag-Ox Tab) 400 mg QAM PO 12/19/17 09:00 01/18/18 08:59 12/19/17 09:00 400 MG Metoprolol Tartrate (Lopressor Tab) 50 mg BID PO 12/18/17 21:00 01/17/18 20:59 12/20/17 21:11 50 MG Mirtazapine (Remeron Tab) 30 mg HS PO 12/18/17 21:00 01/17/18 20:59 Future Hold 12/20/17 21:06 30 MG Pantoprazole Sodium (Protonix Tab) 40 mg BID PO 12/18/17 21:00 01/17/18 20:59 12/20/17 21:07 40 MG Ropinirole HCl (Requip Tab) 1 mg HS PO 12/18/17 21:00 01/17/18 20:59 Future Hold 12/20/17 21:09 1 MG Tramadol HCl (Ultram Tab) 50 mg HS PRN PO 12/18/17 14:45 01/17/18 14:44 Future Hold 12/18/17 15:29 50 MG Trazodone HCl (Desyrel Tab) 50 mg HS PO 12/18/17 21:00 01/17/18 20:59 Future Hold 12/20/17 21:07 50 MG Miscellaneous (Iv Fluids Completed) 1 ea PRN PRN N/A 12/18/17 14:45 12/18/18 14:44 Insulin Glargine (Lantus Solostar Pen) SEE PROTOCOL TEXT Q12 SC 12/19/17 09:00 01/18/18 08:59 Future hold 12/20/17 21:19 60 UNITS Insulin Aspart (novoLOG ASPART) SLIDING SCALE If C... ACHS SC 12/18/17 16:15 01/17/18 16:14 12/20/17 21:20 11 UNITS Glucose (Glucose 40% Gel) 15-30 GRAMS 15 GRAMS... UD PRN PO 12/18/17 15:00 01/17/18 14:59 Glucose (Glucose Chew Tab) 4-8 Tablets 4 Tabl... UD PRN PO 12/18/17 15:00 01/17/18 14:59 Dextrose (Dextrose 50% 50ML Syringe) 25-50ML OF 50% DW IV FOR... UD PRN IV 12/18/17 15:00 01/17/18 14:59 12/21/17 00:06 25 ML Glucagon (Glucagon Inj) 1 mg UD PRN SQ 12/18/17 15:00 01/17/18 14:59 Miscellaneous Information (Consult Glycemic Management Pharmacy) 1 ea UD PRN N/A 12/18/17 14:57 01/17/18 14:56 12/21/17 00:14 1 EA Amylase/Lipase/ Protease (Pancreaze (Lipase 4,200U) Cap) 1 cap QID PO 12/18/17 17:00 01/17/18 16:59 12/20/17 21:07 1 CAP Nystatin (Mycostatin Susp) 5 ml QID PO 12/18/17 17:00 01/17/18 16:59 12/20/17 21:08 5 ML Acetaminophen (Tylenol Tab) 650 mg Q8 PRN PO 12/18/17 18:15 01/17/18 18:14 Ondansetron HCl (Zofran Inj) 4 mg Q8H PRN IV. 12/19/17 10:45 01/18/18 10:44 Morphine Sulfate (MoRPHine SULFATE INJ) 2 mg Q2H PRN IV 12/19/17 10:45 01/02/18 10:44 Heparin Sodium (Porcine) (Heparin 100 Unit/ml 5ml Flush) 5 ml PRN PRN IV 12/20/17 00:30 01/19/18 00:29 Ioversol (Optiray 320) 100 ml UD PRN IV 12/20/17 01:00 12/24/17 00:59 Enoxaparin Sodium (Lovenox Inj) 40 mg DAILY@1600 SQ 12/20/17 16:00 01/19/18 15:59 12/20/17 17:58 40 MG Ciprofloxacin (Cipro Tab) 500 mg Q12H PO 12/21/17 10:00 12/28/17 09:59
[2017-12-21] MEDS ORDERED: SODIUM CHLORIDE 0.9% 1000ML 1,000 ML IV SCH (17:00)
[2017-12-21 20:19] VITALS: PULSE 58; O2SAT 91
[2017-12-21] MEDS: ATORVASTATIN 10 MG TAB PO SCH (21:16)
[2017-12-21 21:30] VITALS: BP 98/61; PULSE 58
[2017-12-21] MEDS ORDERED: LANTUS PER UNIT CHARGE SQ ONE (21:30)
[2017-12-21] MEDS: D5W AND NSS 1,000 ML IV SCH (22:40)
[2017-12-22 00:14] VITALS: BP 135/78; PULSE 63; TEMP 37; O2SAT 92
[2017-12-22] MEDS: ONDANSETRON INJ 2 MG/ML 2 ML VIAL IV. PRN (02:04)
[2017-12-22 06:00] LABS: HEMATOCRIT 32.8 % (37-47); HEMOGLOBIN 11.2 g/dL (12.0-16.0); MEAN CELL VOLUME 90.1 fL (80-100); MEAN CORPUSCULAR HEMOGLOBIN 30.8 pg (25-34); MEAN CORPUSCULAR HGB CONC 34.1 g/dl (32-36); MEAN PLATELET VOLUME 9.5 fL (7.4-10.4); PLATELET COUNT 202 K/uL (130-400); RED CELL DISTRIBUTION WIDTH CV 13.8 % (11.5-14.5); RED CELL DISTRIBUTION WIDTH SD 45.4 fL (36.4-46.3); WHITE BLOOD COUNT 10.28 K/uL (4.8-10.8)
[2017-12-22 06:28] LABS: ALBUMIN 2.4 gm/dl (3.4-5.0); ALT/SGPT 43 U/L (12-78); AST/SGOT 36 U/L (15-37); BLOOD UREA NITROGEN 23 mg/dl (7-18); CALCIUM 8.1 mg/dl (8.5-10.1); CARBON DIOXIDE 29 mmol/L (21-32); CREATININE 1.49 mg/dl (0.60-1.20); GLUCOSE 139 mg/dl (70-99); POTASSIUM 3.9 mmol/L (3.5-5.1); SODIUM 142 mmol/L (136-145)
[2017-12-22 06:30] LABS: ALKALINE PHOSPHATASE 88 U/L (45-117); TOTAL PROTEIN 5.6 gm/dl (6.4-8.2)
[2017-12-22 07:08] VITALS: BP 151/71; PULSE 74; TEMP 36.7; O2SAT 91
[2017-12-22 07:35] VITALS: PULSE 73; O2SAT 94
[2017-12-22] MEDS: D5W AND NSS 1,000 ML IV SCH ×2 (07:55→16:25)
[2017-12-22] MEDS: BUDESONIDE 0.5 MG/2 ML VIAL (PULMICORT) INH SCH ×2 (08:05→18:57)
[2017-12-22] MEDS ORDERED: INSULIN HUMAN NPH SC SCH ×3 (09:00→21:00)
[2017-12-22] MEDS: LOSARTAN POTASSIUM 50 MG TAB PO SCH (09:24)
[2017-12-22] MEDS: CHLORTHALIDONE 25 MG TAB PO SCH (09:24)
[2017-12-22] MEDS: ASPIRIN 81 MG ECTAB PO SCH (09:24)
[2017-12-22] MEDS: ESCITALOPRAM OXALATE 10 MG TAB PO SCH (09:26)
[2017-12-22] MEDS: PANCREAZE (LIPASE 4,200U) CAP PO SCH ×4 (09:27→21:44)
[2017-12-22] MEDS: GABAPENTIN 400 MG CAP PO SCH (09:27)
[2017-12-22] MEDS: METOPROLOL TARTRATE 50 MG TAB PO SCH ×2 (09:27→21:45)
[2017-12-22] MEDS: MAGNESIUM OXIDE 400 MG TAB PO SCH (09:27)
[2017-12-22] MEDS: AMLODIPINE BESYLATE 5 MG TAB PO SCH (09:27)
[2017-12-22] MEDS: RANITIDINE HCL 150 MG TAB PO SCH ×2 (09:28→21:44)
[2017-12-22] MEDS: CLOPIDOGREL BISULFATE 75 MG TAB PO SCH (09:28)
[2017-12-22] MEDS: PANTOprazole SOD 40 MG TAB PO SCH ×2 (09:28→21:44)
[2017-12-22] MEDS: NYSTATIN SUSP 500,000 U/5 ML UDC PO SCH ×4 (09:29→21:44)
[2017-12-22] MEDS: INSULIN ASPART 100 UNITS/ML 3 ML PEN SC SCH ×4 (09:42→21:51)
[2017-12-22] MEDS: CIPROFLOXACIN 500 MG TAB PO SCH ×2 (09:43→21:44)
--- NOTE | 2017-12-22 12:05 | Pharmacy Progress Note ---
Pharmacy Glycemic Short Note 2 Date of Service Dec 22, 2017. OUTPATIENT ANTIDIABETIC REGIMEN: * Novolin 70/30 - 80 units twice daily + Novolog (total daily dose of 160+ units /day) * A1c = 10.9 % 08/26/17 ASSESSMENT: * See progress note from 12/20 for more background info, in short: * Pt receiving SQ basal bolus insulin regimen for hyperglycemia secondary to baseline DM (outpatient regimen on hold), stress/infection, and steroids * Pt with longstanding hypoglycemia yesterday - most likely d/t too much basal insulin now that steroids d/c on 12/19/17. D5NS started at 100ml/hr. * Pt received 164 units of insulin on 12/20 --> this is similar to outpatient dosing of ~ 160 units per day but suspect some non-compliance d/t elevated A1c * Pt with sustained hypo on 12/21/17. Pt only received 25 units of insulin on d/t holding insulin doses for hypoglycemia * Suspect that hypoglycemia may be also due to stacking of Lantus BID --> will change to NPH which has a shorter duration of action to prevent further stacking. Additionally, NPH is patient's outpatient basal insulin. * Suspect that BSGs will begin to rise today. Will restart insulin conservatively at 25% reduction of outpatient dosing. Will also increase goal range to help prevent hypoglycemia. PLAN FOR INPATIENT GLYCEMIC CONTROL * Basal insulin - decrease dose and change to NPH to prevent stacking/overlap and hypoglycemia * NPH SQ BID - dose based on BSG * BSG below 140 --> give 20 units * BSG 140 mg/dl or above --> give 30 units * Bolus insulin -increase goal range * NovoLog per scale ACHS or Q6hrs while NPO * Goal Range: Low 110 mg/dL - High 150 mg/dL * Correction Factor: 15 mg/dL/unit * Nutritional / Prandial insulin per carb ratio of 1 unit per 5 grams CHO consumed Thank you.
--- NOTE | 2017-12-22 12:18 | Progress Note ---
Medicine Progress Note Date & Time of Visit: Dec 22, 2017 at 12:06. Subjective 77 yo F with recurrent pancreatitis and h/o pancreatic cysts who presents with pain s/p EUS with biopsy and ERCP with pancreatic stent placement for stricture 12/18. -she is very fatigued and lethargic for me today and continues to fall asleep -she did deny any pain but also thought she was in [place] -she was able to say her name was Angelica -per nurse she ate breakfast today and was up this morning conversing appropriately with staff. -recent sugar is 205. Objective Last 8 Hrs Date Time Temp Pulse Resp B/P (MAP) Pulse Ox O2 Delivery O2 Flow Rate FiO2 12/22/17 08:22 Room Air 12/22/17 07:35 73 18 94 Room Air 12/22/17 07:08 36.7 74 16 151/71 (97) 91 Room Air Physical Exam: GEN: obese, lethargic, difficult to arouse. HEENT: NC/AT, normal sclerae, MMM CARDIO: reg rate, S1/2 heard without m/g/r, anterior R chest wall port that is accessed. LUNGS: CTA bilaterally, no crackles, rales or wheezes, good diaphragmatic excursion-limited exam ABD: soft, nontender, non-distended, no rebound or guarding, +BS EXTREMITY: no LE swelling or edema, extremities are warm and well-perfused N/M: moves all extremities equally, no gross focal deficits. SKIN: warm and dry Laboratory Results: 12/22/17 05:24 12/22/17 05:24 Test 12/18/17 11:47 12/18/17 13:51 12/19/17 06:30 12/20/17 11:29 Globulin 3.8 gm/dl (2.5-4.0) Albumin/Globulin Ratio 0.8 (0.9-2) Estimated Average Glucose 249 mg/dl Hemoglobin A1c 10.3 % (4.5-5.6) Prothrombin Time 11.1 SECONDS (9.0-12.0) Prothromb Time International Ratio 1.1 (0.9-1.1) Activated Partial Thromboplast Time 25.7 SECONDS (21.0-31.0) Partial Thromboplastin Ratio 1.0 Test 12/21/17 05:40 12/22/17 05:24 12/22/17 08:16 Lipase 263 U/L (73-393) Red Blood Count 3.64 M/uL (4.2-5.4) Mean Corpuscular Volume 90.1 fL (80-100) Mean Corpuscular Hemoglobin 30.8 pg (25-34) Mean Corpuscular Hemoglobin Concent 34.1 g/dl (32-36) RDW Standard Deviation 45.4 fL (36.4-46.3) RDW Coefficient of Variation 13.8 % (11.5-14.5) Mean Platelet Volume 9.5 fL (7.4-10.4) Anion Gap 3.0 mmol/L (3-11) Est Creatinine Clear Calc Drug Dose 28.8 ml/min Estimated GFR () 38.9 Estimated GFR (Non- 33.5 BUN/Creatinine Ratio 15.7 (10-20) Calcium Level 8.1 mg/dl (8.5-10.1) Magnesium Level 2.0 mg/dl (1.8-2.4) Total Bilirubin 0.3 mg/dl (0.2-1) Direct Bilirubin < 0.1 mg/dl (0-0.2) Aspartate Amino Transf (AST/SGOT) 36 U/L (15-37) Alanine Aminotransferase (ALT/SGPT) 43 U/L (12-78) Alkaline Phosphatase 88 U/L (45-117) Total Protein 5.6 gm/dl (6.4-8.2) Albumin 2.4 gm/dl (3.4-5.0) Bedside Glucose 99 mg/dl (70-90) Last 24 Hours Test 12/21/17 12:07 12/21/17 12:19 12/21/17 14:14 12/21/17 16:31 Bedside Glucose 73 mg/dl 79 mg/dl 163 mg/dl 105 mg/dl Test 12/21/17 17:16 12/21/17 20:37 12/21/17 20:51 12/21/17 22:12 Bedside Glucose 127 mg/dl 60 mg/dl 76 mg/dl 66 mg/dl Test 12/21/17 22:33 12/22/17 00:03 12/22/17 01:59 12/22/17 04:05 Bedside Glucose 73 mg/dl 96 mg/dl 130 mg/dl 169 mg/dl Test 12/22/17 05:24 12/22/17 08:16 White Blood Count 10.28 K/uL Red Blood Count 3.64 M/uL Hemoglobin 11.2 g/dL Hematocrit 32.8 % Mean Corpuscular Volume 90.1 fL Mean Corpuscular Hemoglobin 30.8 pg Mean Corpuscular Hemoglobin Concent 34.1 g/dl RDW Standard Deviation 45.4 fL RDW Coefficient of Variation 13.8 % Platelet Count 202 K/uL Mean Platelet Volume 9.5 fL Sodium Level 142 mmol/L Potassium Level 3.9 mmol/L Chloride Level 110 mmol/L Carbon Dioxide Level 29 mmol/L Anion Gap 3.0 mmol/L Blood Urea Nitrogen 23 mg/dl Creatinine 1.49 mg/dl Est Creatinine Clear Calc Drug Dose 28.8 ml/min Estimated GFR () 38.9 Estimated GFR (Non- 33.5 BUN/Creatinine Ratio 15.7 Random Glucose 139 mg/dl Calcium Level 8.1 mg/dl Magnesium Level 2.0 mg/dl Total Bilirubin 0.3 mg/dl Direct Bilirubin < 0.1 mg/dl Aspartate Amino Transf (AST/SGOT) 36 U/L Alanine Aminotransferase (ALT/SGPT) 43 U/L Alkaline Phosphatase 88 U/L Total Protein 5.6 gm/dl Albumin 2.4 gm/dl Bedside Glucose 99 mg/dl Assessment & Plan 77 yo F with recurrent pancreatitis and h/o pancreatic cysts who presents with pain s/p EUS with biopsy and ERCP with pancreatic stent placement for stricture 12/18. 1. Encephalopathy 2/2 hypoglycemia-resolved as patient has been having multiple coherent conversations with nursing staff and social workers today and overnight. Her hypoglycemia is resolved and she is currently on NPH per pharmacy recs with Novolog for carb coverage. She is currently very sleepy but is able to wake up and talk to me briefly and moves all her extremities. Pupils are round and equal bilaterally. She is somewhat confused and thinks she is in [place], but she is very lethargic. Per nursing staff she was up chatting with staff in the middle of the night last night so she is likely exhausted. Will cont supportive care. All sedating medications including her gabapentin has been held at this time. 2. Acute kidney injury-likely 2/2 prerenal azotemia in setting of recent pancreatitis. Although she is eating and drinking she is still very fatigued and not reliably drinking enough water. Will increase current IVF to 150mls/hr continuous overnight. She is on D5NS so if sugars go up too much, would switch to NSS. 3. Abdominal pain 2/2 post-procedure pancreatitis-resolved, lipase within normal limits. Prophylactic cipro per GI x 7 days. snf plan post- procedure is to repeat ERCP in 3 months to remove stent. 4. DMII-poorly controlled w A1C 11 in Aug 2017. Apprec pharmacy consult as inpatient. Cont NPH and Novolog for coverage. 5. COPD-stable, no wheezing. Recently completed course of steroids. Supplemental O2 as needed. Home inhalers. 6. HTN-controlled. Home meds including metoprolol, amlodipine, losartan, chlorthalidone. 7. h/o CVA-was holding ASA and plavix post-procedure, restarted these and Lipitor yesterday and she is doing well. DVT Ppx: Lovenox Code status: FULL PCP: Ronny Dispo: med/surg, hopefully to home in am. Will order PT/OT evals for her with extended stay. Caren Guerra DO [facility] Hospitalist ADDENDUM: 30 minutes later I waslked back into the room and she was up on the side of her bed eating lunch and mentating completely fine. She reported no abdominal pain or symptoms except fatigue. We discussed her MARIE and that we were giving IVF and would re-evaluate her PRP in the morning. She verbalized understanding. Dr. Gonzalez assuming care starting 12/23. DO Charlie Consultants: GI-Dr. Sinha Current Inpatient Medications: Current Inpatient Medications Medications (Trade) Dose Ordered Sig/Rosetta Route Start Time Stop Time Status Last Admin Dose Admin Chlorthalidone (Hygroton Tab) 25 mg DAILY PO 12/19/17 09:00 01/18/18 08:59 12/22/17 09:24 25 MG Lorazepam (Ativan Tab) 0.5 mg Q6H PRN PO 12/18/17 14:45 01/17/18 14:44 Future Hold 12/20/17 14:35 0.5 MG Losartan Potassium (coZAAR TAB) 100 mg QAM PO 12/19/17 09:00 01/18/18 08:59 12/22/17 09:24 100 MG Ranitidine HCl (zANTac TAB) 75 mg BID PO 12/18/17 21:00 01/17/18 20:59 12/22/17 09:28 75 MG Budesonide (Pulmicort Respules 0.5MG/ 2ML Neb Soln) 0.5 mg BIDR INH 12/18/17 20:00 01/17/18 19:59 12/22/17 08:05 0.5 MG Albuterol (Ventolin Hfa Inhaler) 2 puffs TID PRN INH 12/18/17 14:45 01/17/18 14:44 Amlodipine Besylate (Norvasc Tab) 10 mg DAILY PO 12/19/17 09:00 01/18/18 08:59 12/22/17 09:27 10 MG Dicyclomine HCl (Bentyl Cap) 10 mg TID PRN PO 12/18/17 14:45 01/17/18 14:44 12/20/17 08:29 10 MG Docusate Sodium (coLACE CAP) 100 mg BID PRN PO 12/18/17 14:45 01/17/18 14:44 Escitalopram Oxalate (Lexapro Tab) 15 mg QAM PO 12/19/17 09:00 01/18/18 08:59 12/22/17 09:26 15 MG Gabapentin (Neurontin Cap) 400 mg BID PO 12/18/17 21:00 01/17/18 20:59 12/22/17 09:27 400 MG Magnesium Oxide (Mag-Ox Tab) 400 mg QAM PO 12/19/17 09:00 01/18/18 08:59 12/22/17 09:27 400 MG Metoprolol Tartrate (Lopressor Tab) 50 mg BID PO 12/18/17 21:00 01/17/18 20:59 12/22/17 09:27 50 MG Mirtazapine (Remeron Tab) 30 mg HS PO 12/18/17 21:00 01/17/18 20:59 Future Hold 12/20/17 21:06 30 MG Pantoprazole Sodium (Protonix Tab) 40 mg BID PO 12/18/17 21:00 01/17/18 20:59 12/22/17 09:28 40 MG Ropinirole HCl (Requip Tab) 1 mg HS PO 12/18/17 21:00 01/17/18 20:59 Future Hold 12/20/17 21:09 1 MG Tramadol HCl (Ultram Tab) 50 mg HS PRN PO 12/18/17 14:45 01/17/18 14:44 Future Hold 12/18/17 15:29 50 MG Trazodone HCl (Desyrel Tab) 50 mg HS PO 12/18/17 21:00 01/17/18 20:59 Future Hold 12/20/17 21:07 50 MG Miscellaneous (Iv Fluids Completed) 1 ea PRN PRN N/A 12/18/17 14:45 12/18/18 14:44 Insulin Aspart (novoLOG ASPART) SLIDING SCALE If C... ACHS SC 12/18/17 16:15 01/17/18 16:14 12/22/17 09:42 9 UNITS Glucose (Glucose 40% Gel) 15-30 GRAMS 15 GRAMS... UD PRN PO 12/18/17 15:00 01/17/18 14:59 Glucose (Glucose Chew Tab) 4-8 Tablets 4 Tabl... UD PRN PO 12/18/17 15:00 01/17/18 14:59 Dextrose (Dextrose 50% 50ML Syringe) 25-50ML OF 50% DW IV FOR... UD PRN IV 12/18/17 15:00 01/17/18 14:59 12/21/17 11:15 25 ML Glucagon (Glucagon Inj) 1 mg UD PRN SQ 12/18/17 15:00 01/17/18 14:59 Miscellaneous Information (Consult Glycemic Management Pharmacy) 1 ea UD PRN N/A 12/18/17 14:57 01/17/18 14:56 12/21/17 00:14 1 EA Amylase/Lipase/ Protease (Pancreaze (Lipase 4,200U) Cap) 1 cap QID PO 12/18/17 17:00 01/17/18 16:59 12/22/17 09:27 1 CAP Nystatin (Mycostatin Susp) 5 ml QID PO 12/18/17 17:00 01/17/18 16:59 12/22/17 09:29 5 ML Acetaminophen (Tylenol Tab) 650 mg Q8 PRN PO 12/18/17 18:15 01/17/18 18:14 12/21/17 16:26 650 MG Ondansetron HCl (Zofran Inj) 4 mg Q8H PRN IV. 12/19/17 10:45 01/18/18 10:44 12/22/17 02:04 4 MG Morphine Sulfate (MoRPHine SULFATE INJ) 2 mg Q2H PRN IV 12/19/17 10:45 01/02/18 10:44 Heparin Sodium (Porcine) (Heparin 100 Unit/ml 5ml Flush) 5 ml PRN PRN IV 12/20/17 00:30 01/19/18 00:29 12/21/17 11:21 5 ML Ioversol (Optiray 320) 100 ml UD PRN IV 12/20/17 01:00 12/24/17 00:59 Ciprofloxacin (Cipro Tab) 500 mg Q12H PO 12/21/17 10:00 12/28/17 09:59 12/22/17 09:43 500 MG Aspirin (Ecotrin Tab) 81 mg QAM PO 12/22/17 09:00 01/21/18 08:59 12/22/17 09:24 81 MG Clopidogrel Bisulfate (plAVix TAB) 75 mg QAM PO 12/22/17 09:00 01/21/18 08:59 12/22/17 09:28 75 MG Atorvastatin Calcium (Lipitor Tab) 10 mg QPM PO 12/21/17 21:00 01/20/18 20:59 12/21/17 21:16 10 MG Dextrose/Sodium Chloride 1,000 ml @ 100 mls/hr Q10H IV 12/21/17 22:45 01/20/18 22:44 12/22/17 07:55 100 MLS/HR Insulin Human NPH (novoLIN-N NPH) 30 units BID SC 12/22/17 09:00 01/21/18 08:59 12/22/17 10:52 30 UNITS Enoxaparin Sodium (Lovenox Inj) 30 mg DAILY@1600 SQ 12/22/17 16:00 01/21/18 15:59
[2017-12-22] MEDS: ENOXAPARIN 30 MG/0.3 ML SYR SQ SCH (15:41)
[2017-12-22 16:22] VITALS: BP 116/52; PULSE 61; TEMP 36.6; O2SAT 94
[2017-12-22] MEDS ORDERED: INSULIN ASPART 100 UNITS/ML 3 ML PEN SC SCH ×2 (18:30)
[2017-12-22 18:57] VITALS: PULSE 71; O2SAT 97
[2017-12-22] MEDS: ATORVASTATIN 10 MG TAB PO SCH (21:45)
[2017-12-22 22:44] VITALS: BP 147/72; PULSE 70; TEMP 36.8; O2SAT 96
[2017-12-22] MEDS: SODIUM CHLORIDE 0.9% 1000ML 1,000 ML IV SCH (23:09)
[2017-12-23] VITALS (8 sets, daily range): BP systolic 120–168; BP diastolic 72–81; PULSE 60–70; TEMP 36.1–37; O2SAT 96–98
[2017-12-23] MEDS: ACETAMINOPHEN 325 MG TAB PO PRN (01:48)
[2017-12-23] MEDS ORDERED: INSULIN ASPART 100 UNITS/ML 3 ML PEN SC SCH (02:00)
[2017-12-23] MEDS: SODIUM CHLORIDE 0.9% 1000ML 1,000 ML IV SCH ×3 (05:34→19:06)
[2017-12-23 05:38] LABS: HEMATOCRIT 33.7 % (37-47); HEMOGLOBIN 11.4 g/dL (12.0-16.0); MEAN CELL VOLUME 90.6 fL (80-100); MEAN CORPUSCULAR HEMOGLOBIN 30.6 pg (25-34); MEAN CORPUSCULAR HGB CONC 33.8 g/dl (32-36); MEAN PLATELET VOLUME 9.3 fL (7.4-10.4); PLATELET COUNT 208 K/uL (130-400); RED CELL DISTRIBUTION WIDTH CV 13.5 % (11.5-14.5); RED CELL DISTRIBUTION WIDTH SD 44.9 fL (36.4-46.3); WHITE BLOOD COUNT 10.27 K/uL (4.8-10.8)
[2017-12-23 06:05] LABS: CALCIUM 7.8 mg/dl (8.5-10.1); CREATININE 1.5 mg/dl (0.60-1.20); POTASSIUM 3.9 mmol/L (3.5-5.1)
[2017-12-23] MEDS: BUDESONIDE 0.5 MG/2 ML VIAL (PULMICORT) INH SCH ×2 (07:19→19:59)
[2017-12-23] MEDS: PANTOprazole SOD 40 MG TAB PO SCH ×2 (09:42→21:02)
[2017-12-23] MEDS: MAGNESIUM OXIDE 400 MG TAB PO SCH (09:43)
[2017-12-23] MEDS: CIPROFLOXACIN 500 MG TAB PO SCH (09:43)
[2017-12-23] MEDS: CHLORTHALIDONE 25 MG TAB PO SCH (09:43)
[2017-12-23] MEDS: METOPROLOL TARTRATE 50 MG TAB PO SCH ×2 (09:44→21:03)
[2017-12-23] MEDS: NYSTATIN SUSP 500,000 U/5 ML UDC PO SCH ×4 (09:44→21:03)
[2017-12-23] MEDS: PANCREAZE (LIPASE 4,200U) CAP PO SCH ×4 (09:44→21:02)
[2017-12-23] MEDS: ASPIRIN 81 MG ECTAB PO SCH (09:45)
[2017-12-23] MEDS: LOSARTAN POTASSIUM 50 MG TAB PO SCH (09:45)
[2017-12-23] MEDS: AMLODIPINE BESYLATE 5 MG TAB PO SCH (09:46)
[2017-12-23] MEDS: CLOPIDOGREL BISULFATE 75 MG TAB PO SCH (09:46)
[2017-12-23] MEDS: ESCITALOPRAM OXALATE 10 MG TAB PO SCH (09:47)
[2017-12-23] MEDS: RANITIDINE HCL 150 MG TAB PO SCH ×2 (09:48→21:02)
[2017-12-23] MEDS: INSULIN ASPART 100 UNITS/ML 3 ML PEN SC SCH ×4 (09:53→21:00)
[2017-12-23] MEDS: INSULIN HUMAN NPH SC SCH ×2 (09:54→21:07)
--- NOTE | 2017-12-23 15:23 | Pharmacy Progress Note ---
Pharmacy Glycemic Short Note 2 Date of Service Dec 23, 2017. OUTPATIENT ANTIDIABETIC REGIMEN: * Novolin 70/30 - 80 units twice daily + Novolog (total daily dose of 160+ units /day) * A1c = 10.9 % 08/26/17 ASSESSMENT: * See progress note from 12/20 for more background info, in short: * Pt receiving SQ basal bolus insulin regimen for hyperglycemia secondary to baseline DM (outpatient regimen on hold), stress/infection, and steroids * Pt with longstanding hypoglycemia on 12/21 and fluids changed to D5NS @ 100 cc/ hr to bring BSGs up * This hypoglycemia was due to high doses of basal insulin in the setting of a short course of oral steroids * Pt does require very large doses of insulin as an outpatient but when given similar dosing here, does not tolerate without steroids * Now that BSGs have trended back to euglycemia, fluids changed to NS @150 cc/hr * Plan today is to continue to reduce regimen in hopes of avoiding any further hypoglycemia episodes PLAN FOR INPATIENT GLYCEMIC CONTROL * Basal insulin - decrease dose and change to NPH to prevent stacking/overlap and hypoglycemia * NPH 20 units SQ BID * Bolus insulin - loosen * NovoLog per scale ACHS or Q6hrs while NPO * Goal Range: Low 110 mg/dL - High 150 mg/dL * Correction Factor: 20 mg/dL/unit * Nutritional / Prandial insulin per carb ratio of 1 unit per 6 grams CHO consumed Thank you.
[2017-12-23] MEDS: ENOXAPARIN 30 MG/0.3 ML SYR SQ SCH (16:16)
--- NOTE | 2017-12-23 20:15 | Progress Note ---
Medicine Progress Note Date & Time of Visit: Dec 23, 2017 at 16:30 . Subjective CC: Follow-up visit for pancreatitis and other problems. HPI: Doing well. Epigastric pain improved. Tolerating diet. No nausea or vomiting. Blood sugars improved. ROS: General- no fever, no chills Resp- no cough; no shortness of breath Cardiac- no chest pain, no edema GI- as noted above in HPI - no dysuria, no difficulty voiding . Objective Last 8 Hrs Date Time Temp Pulse Resp B/P (MAP) Pulse Ox O2 Delivery O2 Flow Rate FiO2 12/23/17 19:59 68 16 96 Room Air 12/23/17 15:30 Room Air 12/23/17 15:27 36.7 63 17 159/72 (101) 96 Room Air 12/23/17 12:24 37.0 66 18 120/80 (93) 97 Room Air Physical Exam: General- lying in bed; no distress Lungs- clear to auscultation; no respiratory distress Cardiovascular- RRR; no murmur; no gallop; no JVD; no pretibial edema Abdomen- + bowel sounds, slightly distended, soft, mild epigastric tenderness Extremities- no cyanosis; no calf tenderness Neuro- alert, oriented Skin- warm & dry . Laboratory Results: Last 24 Hours Test 12/22/17 20:37 12/23/17 01:42 12/23/17 05:22 12/23/17 08:05 Bedside Glucose 218 mg/dl 128 mg/dl 83 mg/dl White Blood Count 10.27 K/uL Red Blood Count 3.72 M/uL Hemoglobin 11.4 g/dL Hematocrit 33.7 % Mean Corpuscular Volume 90.6 fL Mean Corpuscular Hemoglobin 30.6 pg Mean Corpuscular Hemoglobin Concent 33.8 g/dl RDW Standard Deviation 44.9 fL RDW Coefficient of Variation 13.5 % Platelet Count 208 K/uL Mean Platelet Volume 9.3 fL Sodium Level 141 mmol/L Potassium Level 3.9 mmol/L Chloride Level 110 mmol/L Carbon Dioxide Level 27 mmol/L Anion Gap 4.0 mmol/L Blood Urea Nitrogen 20 mg/dl Creatinine 1.50 mg/dl Est Creatinine Clear Calc Drug Dose 28.6 ml/min Estimated GFR () 38.5 Estimated GFR (Non- 33.3 BUN/Creatinine Ratio 13.0 Random Glucose 93 mg/dl Calcium Level 7.8 mg/dl Test 12/23/17 12:03 12/23/17 16:56 Bedside Glucose 101 mg/dl 111 mg/dl Assessment & Plan PANCREATITIS Admitted with post-ERCP pancreatitis. Managed with bowel rest, IV fluids. Improved. DM TYPE II, POORLY CONTROLLED Hgb A1C 10.3. Blood sugars fluctuating due to acute illness and variable PO intake. Pharmacy consulted for glycemic management. Lantus / NovoLog per protocol. FBS this morning = 83. HYPERTENSION Continue metoprolol, amlodipine, losartan. Follow and titrate Rx. ACUTE ON CHRONIC KIDNEY DISEASE Chronic kidney disease stage III. Serum creatinine 1.08 on admission, 1.50 today. Maintain adequate intravascular volume. Continue IV fluids. Avoid potential nephrotoxins when able. Follow. VTE PROPHYLAXIS SQ enoxaparin. Ambulate. DISPOSITION Expected discharge to home. Family Medicine follow-up with Dr. Jefferson. . Consultants: GI-Dr. Sinha Current Inpatient Medications: Current Inpatient Medications Medications (Trade) Dose Ordered Sig/Rosetta Route Start Time Stop Time Status Last Admin Dose Admin Chlorthalidone (Hygroton Tab) 25 mg DAILY PO 12/19/17 09:00 01/18/18 08:59 12/23/17 09:43 25 MG Lorazepam (Ativan Tab) 0.5 mg Q6H PRN PO 12/18/17 14:45 01/17/18 14:44 Future Hold 12/20/17 14:35 0.5 MG Losartan Potassium (coZAAR TAB) 100 mg QAM PO 12/19/17 09:00 01/18/18 08:59 12/23/17 09:45 100 MG Ranitidine HCl (zANTac TAB) 75 mg BID PO 12/18/17 21:00 01/17/18 20:59 12/23/17 09:48 75 MG Budesonide (Pulmicort Respules 0.5MG/ 2ML Neb Soln) 0.5 mg BIDR INH 12/18/17 20:00 01/17/18 19:59 12/23/17 19:59 0.5 MG Albuterol (Ventolin Hfa Inhaler) 2 puffs TID PRN INH 12/18/17 14:45 01/17/18 14:44 Amlodipine Besylate (Norvasc Tab) 10 mg DAILY PO 12/19/17 09:00 01/18/18 08:59 12/23/17 09:46 10 MG Dicyclomine HCl (Bentyl Cap) 10 mg TID PRN PO 12/18/17 14:45 01/17/18 14:44 12/20/17 08:29 10 MG Docusate Sodium (coLACE CAP) 100 mg BID PRN PO 12/18/17 14:45 01/17/18 14:44 Escitalopram Oxalate (Lexapro Tab) 15 mg QAM PO 12/19/17 09:00 01/18/18 08:59 12/23/17 09:47 15 MG Gabapentin (Neurontin Cap) 400 mg BID PO 12/18/17 21:00 01/17/18 20:59 Future Hold 12/22/17 09:27 400 MG Magnesium Oxide (Mag-Ox Tab) 400 mg QAM PO 12/19/17 09:00 01/18/18 08:59 12/23/17 09:43 400 MG Metoprolol Tartrate (Lopressor Tab) 50 mg BID PO 12/18/17 21:00 01/17/18 20:59 12/23/17 09:44 50 MG Mirtazapine (Remeron Tab) 30 mg HS PO 12/18/17 21:00 01/17/18 20:59 Future Hold 12/20/17 21:06 30 MG Pantoprazole Sodium (Protonix Tab) 40 mg BID PO 12/18/17 21:00 01/17/18 20:59 12/23/17 09:42 40 MG Ropinirole HCl (Requip Tab) 1 mg HS PO 12/18/17 21:00 01/17/18 20:59 Future Hold 12/20/17 21:09 1 MG Tramadol HCl (Ultram Tab) 50 mg HS PRN PO 12/18/17 14:45 01/17/18 14:44 Future Hold 12/18/17 15:29 50 MG Trazodone HCl (Desyrel Tab) 50 mg HS PO 12/18/17 21:00 01/17/18 20:59 Future Hold 12/20/17 21:07 50 MG Miscellaneous (Iv Fluids Completed) 1 ea PRN PRN N/A 12/18/17 14:45 12/18/18 14:44 Insulin Aspart (novoLOG ASPART) SLIDING SCALE If C... ACHS SC 12/18/17 16:15 01/17/18 16:14 12/23/17 18:26 5 UNITS Glucose (Glucose 40% Gel) 15-30 GRAMS 15 GRAMS... UD PRN PO 12/18/17 15:00 01/17/18 14:59 Glucose (Glucose Chew Tab) 4-8 Tablets 4 Tabl... UD PRN PO 12/18/17 15:00 01/17/18 14:59 Dextrose (Dextrose 50% 50ML Syringe) 25-50ML OF 50% DW IV FOR... UD PRN IV 12/18/17 15:00 01/17/18 14:59 12/21/17 11:15 25 ML Glucagon (Glucagon Inj) 1 mg UD PRN SQ 12/18/17 15:00 01/17/18 14:59 Miscellaneous Information (Consult Glycemic Management Pharmacy) 1 ea UD PRN N/A 12/18/17 14:57 01/17/18 14:56 12/21/17 00:14 1 EA Amylase/Lipase/ Protease (Pancreaze (Lipase 4,200U) Cap) 1 cap QID PO 12/18/17 17:00 01/17/18 16:59 12/23/17 18:24 1 CAP Nystatin (Mycostatin Susp) 5 ml QID PO 12/18/17 17:00 01/17/18 16:59 12/23/17 18:24 5 ML Acetaminophen (Tylenol Tab) 650 mg Q8 PRN PO 12/18/17 18:15 01/17/18 18:14 12/23/17 01:48 650 MG Ondansetron HCl (Zofran Inj) 4 mg Q8H PRN IV. 12/19/17 10:45 01/18/18 10:44 12/22/17 02:04 4 MG Morphine Sulfate (MoRPHine SULFATE INJ) 2 mg Q2H PRN IV 12/19/17 10:45 01/02/18 10:44 Heparin Sodium (Porcine) (Heparin 100 Unit/ml 5ml Flush) 5 ml PRN PRN IV 12/20/17 00:30 01/19/18 00:29 12/21/17 11:21 5 ML Ioversol (Optiray 320) 100 ml UD PRN IV 12/20/17 01:00 12/24/17 00:59 Aspirin (Ecotrin Tab) 81 mg QAM PO 12/22/17 09:00 01/21/18 08:59 12/23/17 09:45 81 MG Clopidogrel Bisulfate (plAVix TAB) 75 mg QAM PO 12/22/17 09:00 01/21/18 08:59 12/23/17 09:46 75 MG Atorvastatin Calcium (Lipitor Tab) 10 mg QPM PO 12/21/17 21:00 01/20/18 20:59 12/22/17 21:45 10 MG Enoxaparin Sodium (Lovenox Inj) 30 mg DAILY@1600 SQ 12/22/17 16:00 01/21/18 15:59 12/23/17 16:16 30 MG Sodium Chloride 1,000 ml @ 150 mls/hr Q6H40M IV 12/22/17 23:12 01/21/18 23:11 12/23/17 19:06 150 MLS/HR Insulin Human NPH (novoLIN-N NPH) 20 units BID SC 12/23/17 09:00 01/22/18 08:59 12/23/17 09:54 20 UNITS Ciprofloxacin (Cipro Tab) 500 mg DAILY PO 12/24/17 09:00 12/28/17 09:59
[2017-12-23] MEDS: ATORVASTATIN 10 MG TAB PO SCH (21:03)
[2017-12-23] MEDS: ONDANSETRON INJ 2 MG/ML 2 ML VIAL IV. PRN (23:20)
[2017-12-24] MEDS: SODIUM CHLORIDE 0.9% 1000ML 1,000 ML IV SCH ×2 (01:36→08:30)
[2017-12-24 07:26] VITALS: PULSE 62; O2SAT 96
[2017-12-24] MEDS: BUDESONIDE 0.5 MG/2 ML VIAL (PULMICORT) INH SCH (07:26)
[2017-12-24 08:01] VITALS: BP 157/70; PULSE 62; TEMP 36.8; O2SAT 96
[2017-12-24] MEDS: RANITIDINE HCL 150 MG TAB PO SCH (08:31)
[2017-12-24] MEDS: ASPIRIN 81 MG ECTAB PO SCH (08:32)
[2017-12-24] MEDS: METOPROLOL TARTRATE 50 MG TAB PO SCH (08:32)
[2017-12-24] MEDS: NYSTATIN SUSP 500,000 U/5 ML UDC PO SCH ×2 (08:33→13:21)
[2017-12-24] MEDS: AMLODIPINE BESYLATE 5 MG TAB PO SCH (08:34)
[2017-12-24] MEDS: ESCITALOPRAM OXALATE 10 MG TAB PO SCH (08:34)
[2017-12-24] MEDS: CHLORTHALIDONE 25 MG TAB PO SCH (08:37)
[2017-12-24] MEDS: MAGNESIUM OXIDE 400 MG TAB PO SCH (08:38)
[2017-12-24] MEDS: CLOPIDOGREL BISULFATE 75 MG TAB PO SCH (08:38)
[2017-12-24] MEDS: PANCREAZE (LIPASE 4,200U) CAP PO SCH ×2 (08:38→13:22)
[2017-12-24] MEDS: LOSARTAN POTASSIUM 50 MG TAB PO SCH (08:38)
[2017-12-24] MEDS: PANTOprazole SOD 40 MG TAB PO SCH (08:39)
[2017-12-24 08:41] LABS: CALCIUM 8.3 mg/dl (8.5-10.1); CREATININE 1.35 mg/dl (0.60-1.20); POTASSIUM 3.6 mmol/L (3.5-5.1)
[2017-12-24] MEDS ORDERED: CIPROFLOXACIN 500 MG TAB PO SCH (09:00)
[2017-12-24] MEDS: INSULIN ASPART 100 UNITS/ML 3 ML PEN SC SCH ×2 (09:05→12:00)
[2017-12-24] MEDS: INSULIN HUMAN NPH SC SCH (09:05)
[2017-12-24 09:07] VITALS: BP 180/73; PULSE 62
[2017-12-24] MEDS: ACETAMINOPHEN 325 MG TAB PO PRN (09:33)
[2017-12-24 10:25] VITALS: BP 150/69; PULSE 58
--- NOTE | 2017-12-24 13:06 | Pharmacy Progress Note ---
Pharmacy Glycemic Short Note 2 Date of Service Dec 24, 2017. OUTPATIENT ANTIDIABETIC REGIMEN: * Novolin 70/30 - 80 units twice daily + Novolog (total daily dose of 160+ units /day) * A1c = 10.9 % 08/26/17 ASSESSMENT: * See progress note from 12/20 for more background info, in short: * Pt receiving SQ basal bolus insulin regimen for hyperglycemia secondary to baseline DM (outpatient regimen on hold), stress/infection, and steroids * Pt with longstanding hypoglycemia on 12/21 and fluids changed to D5NS @ 100 cc/ hr to bring BSGs up * This hypoglycemia was due to high doses of basal insulin in the setting of a short course of oral steroids * Pt does require very large doses of insulin as an outpatient but when given similar dosing here, does not tolerate without steroids * Now that BSGs have trended back to euglycemia, fluids changed to NS @150 cc/hr * Pt BSGs 88-128mg/dl today (12/24) - but BSG dropped to 71mg/dl while patient was eating her lunch. Instructed nurse to use Lunch to treat hypoglycemia and not to cover carbohydrates in lunch with Novolog * Will loosen CF and CR and further reduce NPH to prevent further hypoglycemia * Will also change goal range slightly PLAN FOR INPATIENT GLYCEMIC CONTROL * Basal insulin - decrease dose * NPH 16 units SQ BID * Bolus insulin - loosen * NovoLog per scale ACHS or Q6hrs while NPO * Goal Range: Low 120 mg/dL - High 150 mg/dL * Correction Factor: 25 mg/dL/unit * Nutritional / Prandial insulin per carb ratio of 1 unit per 8 grams CHO consumed Thank you.
--- NOTE | 2017-12-24 13:26 | Progress Note ---
Medicine Progress Note Date & Time of Visit: Dec 24, 2017 at 13:26 . Subjective CC: Follow-up visit for pancreatitis and other problems. HPI: Doing well. Tolerating diet. Epigastric pain improved. No nausea or vomiting. No further hypoglycemia. ROS: General- no fever, no chills Resp- no cough; no shortness of breath Cardiac- no chest pain, no edema GI- as noted above in HPI - no dysuria, no difficulty voiding . Objective Last 8 Hrs Date Time Temp Pulse Resp B/P (MAP) Pulse Ox O2 Delivery O2 Flow Rate FiO2 12/24/17 10:25 58 150/69 (96) 12/24/17 09:07 62 180/73 (108) 12/24/17 08:01 36.8 62 16 157/70 (99) 96 Room Air 12/24/17 07:26 62 16 96 Room Air 12/24/17 07:14 Room Air Physical Exam: General- lying in bed; no distress Lungs- clear to auscultation; no respiratory distress Cardiovascular- RRR; no gallop; no JVD; no pretibial edema Abdomen- + bowel sounds, slightly distended, soft, nontender Extremities- no cyanosis; no calf tenderness Neuro- alert, oriented Skin- warm & dry . Laboratory Results: Last 24 Hours Test 12/23/17 16:56 12/23/17 20:35 12/24/17 08:01 12/24/17 08:19 Bedside Glucose 111 mg/dl 107 mg/dl 88 mg/dl Sodium Level 142 mmol/L Potassium Level 3.6 mmol/L Chloride Level 110 mmol/L Carbon Dioxide Level 25 mmol/L Anion Gap 7.0 mmol/L Blood Urea Nitrogen 17 mg/dl Creatinine 1.35 mg/dl Est Creatinine Clear Calc Drug Dose 31.7 ml/min Estimated GFR () 43.8 Estimated GFR (Non- 37.8 BUN/Creatinine Ratio 12.2 Random Glucose 84 mg/dl Calcium Level 8.3 mg/dl Assessment & Plan PANCREATITIS Admitted with post-ERCP pancreatitis. Managed with bowel rest, IV fluids with improvement. Diet advanced without difficulty. DM TYPE II, POORLY CONTROLLED Hgb A1C 10.3. Blood sugars fluctuating due to acute illness and variable PO intake. Pharmacy consulted for glycemic management. Lantus / NovoLog per protocol. FBS this morning = 88. Discharge on usual outpatient management with ongoing support from [facility]. HYPERTENSION Continue metoprolol, amlodipine, losartan. Follow and titrate Rx. ACUTE ON CHRONIC KIDNEY DISEASE Chronic kidney disease stage III. Serum creatinine 1.08 on admission, lucita as high as 1.50. Received IV fluids. Creatinine = 1.35 today. Follow. VTE PROPHYLAXIS SQ enoxaparin. Ambulate. DISPOSITION Discharge to home. Family Medicine follow-up with Dr. Jefferson. . Consultants: [facility]-Dr. Sinha Current Inpatient Medications: Current Inpatient Medications Medications (Trade) Dose Ordered Sig/Rosetta Route Start Time Stop Time Status Last Admin Dose Admin Chlorthalidone (Hygroton Tab) 25 mg DAILY PO 12/19/17 09:00 01/18/18 08:59 12/24/17 08:37 25 MG Lorazepam (Ativan Tab) 0.5 mg Q6H PRN PO 12/18/17 14:45 01/17/18 14:44 Future Hold 12/20/17 14:35 0.5 MG Losartan Potassium (coZAAR TAB) 100 mg QAM PO 12/19/17 09:00 01/18/18 08:59 12/24/17 08:38 100 MG Ranitidine HCl (zANTac TAB) 75 mg BID PO 12/18/17 21:00 01/17/18 20:59 12/24/17 08:31 75 MG Budesonide (Pulmicort Respules 0.5MG/ 2ML Neb Soln) 0.5 mg BIDR INH 12/18/17 20:00 01/17/18 19:59 12/24/17 07:26 0.5 MG Albuterol (Ventolin Hfa Inhaler) 2 puffs TID PRN INH 12/18/17 14:45 01/17/18 14:44 Amlodipine Besylate (Norvasc Tab) 10 mg DAILY PO 12/19/17 09:00 01/18/18 08:59 12/24/17 08:34 10 MG Dicyclomine HCl (Bentyl Cap) 10 mg TID PRN PO 12/18/17 14:45 01/17/18 14:44 12/20/17 08:29 10 MG Docusate Sodium (coLACE CAP) 100 mg BID PRN PO 12/18/17 14:45 01/17/18 14:44 Escitalopram Oxalate (Lexapro Tab) 15 mg QAM PO 12/19/17 09:00 01/18/18 08:59 12/24/17 08:34 15 MG Gabapentin (Neurontin Cap) 400 mg BID PO 12/18/17 21:00 01/17/18 20:59 Future Hold 12/22/17 09:27 400 MG Magnesium Oxide (Mag-Ox Tab) 400 mg QAM PO 12/19/17 09:00 01/18/18 08:59 12/24/17 08:38 400 MG Metoprolol Tartrate (Lopressor Tab) 50 mg BID PO 12/18/17 21:00 01/17/18 20:59 12/24/17 08:32 50 MG Mirtazapine (Remeron Tab) 30 mg HS PO 12/18/17 21:00 01/17/18 20:59 Future Hold 12/20/17 21:06 30 MG Pantoprazole Sodium (Protonix Tab) 40 mg BID PO 12/18/17 21:00 01/17/18 20:59 12/24/17 08:39 40 MG Ropinirole HCl (Requip Tab) 1 mg HS PO 12/18/17 21:00 01/17/18 20:59 Future Hold 12/20/17 21:09 1 MG Tramadol HCl (Ultram Tab) 50 mg HS PRN PO 12/18/17 14:45 01/17/18 14:44 Future Hold 12/18/17 15:29 50 MG Trazodone HCl (Desyrel Tab) 50 mg HS PO 12/18/17 21:00 01/17/18 20:59 Future Hold 12/20/17 21:07 50 MG Miscellaneous (Iv Fluids Completed) 1 ea PRN PRN N/A 12/18/17 14:45 12/18/18 14:44 Insulin Aspart (novoLOG ASPART) SLIDING SCALE If C... ACHS SC 12/18/17 16:15 01/17/18 16:14 12/24/17 09:05 4 UNITS Glucose (Glucose 40% Gel) 15-30 GRAMS 15 GRAMS... UD PRN PO 12/18/17 15:00 01/17/18 14:59 Glucose (Glucose Chew Tab) 4-8 Tablets 4 Tabl... UD PRN PO 12/18/17 15:00 01/17/18 14:59 Dextrose (Dextrose 50% 50ML Syringe) 25-50ML OF 50% DW IV FOR... UD PRN IV 12/18/17 15:00 01/17/18 14:59 12/21/17 11:15 25 ML Glucagon (Glucagon Inj) 1 mg UD PRN SQ 12/18/17 15:00 01/17/18 14:59 Miscellaneous Information (Consult Glycemic Management Pharmacy) 1 ea UD PRN N/A 12/18/17 14:57 01/17/18 14:56 12/21/17 00:14 1 EA Amylase/Lipase/ Protease (Pancreaze (Lipase 4,200U) Cap) 1 cap QID PO 12/18/17 17:00 01/17/18 16:59 12/24/17 13:22 1 CAP Nystatin (Mycostatin Susp) 5 ml QID PO 12/18/17 17:00 01/17/18 16:59 12/24/17 13:21 5 ML Acetaminophen (Tylenol Tab) 650 mg Q8 PRN PO 12/18/17 18:15 01/17/18 18:14 12/24/17 09:33 650 MG Ondansetron HCl (Zofran Inj) 4 mg Q8H PRN IV. 12/19/17 10:45 01/18/18 10:44 12/23/17 23:20 4 MG Morphine Sulfate (MoRPHine SULFATE INJ) 2 mg Q2H PRN IV 12/19/17 10:45 01/02/18 10:44 Heparin Sodium (Porcine) (Heparin 100 Unit/ml 5ml Flush) 5 ml PRN PRN IV 12/20/17 00:30 01/19/18 00:29 12/21/17 11:21 5 ML Aspirin (Ecotrin Tab) 81 mg QAM PO 12/22/17 09:00 01/21/18 08:59 12/24/17 08:32 81 MG Clopidogrel Bisulfate (plAVix TAB) 75 mg QAM PO 12/22/17 09:00 01/21/18 08:59 12/24/17 08:38 75 MG Atorvastatin Calcium (Lipitor Tab) 10 mg QPM PO 12/21/17 21:00 01/20/18 20:59 12/23/17 21:03 10 MG Enoxaparin Sodium (Lovenox Inj) 30 mg DAILY@1600 SQ 12/22/17 16:00 01/21/18 15:59 12/23/17 16:16 30 MG Ciprofloxacin (Cipro Tab) 500 mg DAILY PO 12/24/17 09:00 12/28/17 09:59 12/24/17 08:32 500 MG Insulin Human NPH (novoLIN-N NPH) 16 units BID SC 12/24/17 21:00 01/23/18 20:59
[2017-12-24] MEDS ORDERED: BNT/10 PO (13:37)
[2017-12-24] MEDS ORDERED: IPRASOL4 INH (13:37)
--- NOTE | 2017-12-24 13:41 | Discharge Instructions ---
Discharge Instructions Date of Service Dec 24, 2017. Admission Reason for Admission: pancreatitis Discharge Discharge Diagnosis / Problem: pancreatitis Discharge Goals Goal(s): Decrease discomfort, Improve disease control Activity Recommendations Activity Limitations: resume your previous activity . Instructions / Follow-Up Instructions / Follow-Up APPOINTMENTS: FAMILY MEDICINE 12/28/2017 11:00 AM Colleen Jefferson DO [facility] 12/29/2017 6:00 PM [facility] OTHER INSTRUCTIONS: Seek medical attention if you have: * temperature above 101 * chest pain or trouble breathing * abdominal pain, nausea, vomiting * diarrhea, dark stools or bloody stools * any unanswered questions or concerns Call 911 if symptoms are severe. Call if you have any questions or problems. My cell # is [phone]. You can also reach a [facility] hospitalist on duty at [facility] 24 hours a day by calling [phone]. Please take good care of yourself. Yonas Gonzalez . Current Hospital Diet Patient's current hospital diet: AHA Diet (Heart Healthy), Diabetes Type 2 Diet Discharge Diet Recommended Diet: AHA Diet (Heart Healthy), Diabetes Type 2 Diet, Low Fat Diet Procedures Procedures Performed: EUS with FNA ERCP with pancreatic stent placement / stricture dilation Pending Studies Studies pending at discharge: no Laboratory Results Hemoglobin A1c Test 12/19/17 06:30 Range/Units Estimated Average Glucose 249 mg/dl Hemoglobin A1c 10.3 H 4.5-5.6 % Medical Emergencies . Who to Call and When: Medical Emergencies: If at any time you feel your situation is an emergency, please call 911 immediately. . Non-Emergent Contact Non-Emergency issues call your: Primary Care Provider, Legal Consultant, Hospital Doctor . . "Provider Documentation" section prepared by Yonas Gonzalez. . VTE Core Measure Inpt VTE Proph given/why not?: SCD's
[2017-12-24 14:57] VITALS: BP 150/69; PULSE 58; TEMP 36.8; O2SAT 96
[2017-12-24] MEDS ORDERED: INSULIN HUMAN NPH SC SCH (21:00)
--- NOTE | 2017-12-25 22:32 | Discharge Summary ---
Discharge Summary Date of Service Dec 25, 2017. Discharge Summary Admission Date: Dec 19, 2017 at 11:06 Discharge Date: Dec 24, 2017 Discharge Disposition: Home Principal Diagnosis: post ERCP pancreatitis . 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 (9) Depression Status: Chronic (10) Diabetes mellitus type 2 Status: Chronic (11) Diabetic neuropathy Status: Chronic (12) Dyslipidemia Status: Chronic (13) Esophageal dysmotility Status: Chronic (14) Fatty liver Status: Chronic (15) Gastroparesis Status: Chronic (16) Giant cell arteritis Status: Resolved (17) Insomnia Status: Chronic (18) Pancreatic divisum Status: Chronic (19) Sciatica Status: Chronic (20) Sleep apnea Status: Chronic Surgical Problems: (1) cataract surgery Permanent Comment: Right Status: Chronic (2) H/O esophagogastroduodenoscopy Permanent Comment: EGD/EUS 11/01/14- gastritis, hiatal hernia, normal amuplla, fatty infiltration of liver. 3 mm by 10 mm cystic lesion seen in pancreatic head , most consistent with intraductal papillary mucinous neoplasm based on EUS from 2011 Status: Chronic (3) History of - tubal ligation Status: Chronic (4) History of cholecystectomy Status: Chronic (5) History of ERCP Permanent Comment: 09/16/17 - biliary sludge, pancreatic stricture, chronic pancreatitis, stent placed Status: Resolved (6) S/P ERCP Permanent Comment: 12/07/14- prior biliary endoscopic sphincterotomy appeared open. cholangiogram was normal. unable to cannulate pancreatic duct Status: Chronic (7) S/P ERCP Permanent Comment: 05/03/15- minor duct sphincterotomy and pancreatic duct stent placement Status: Chronic (8) S/p fixation of left ankle fracture Status: Chronic . Procedures: ERCP endoscopic ultrasound CT abdomen and pelvis IV fluids IV meds . Consultations: GI-Dr. Sinha Medication Reconciliation Continued Medications: Albuterol Hfa (Ventolin Hfa) 200 Puffs/79683 Mcg Aers 2 PUFFS INH TID PRN for Cough Amlodipine (Norvasc) 10 Mg Tab 10 MG PO DAILY, TAB Budesonide (Inhalation) (Pulmicort) 1 Mg/2 Ml Alisson 0.5 MG INH BID for 5 Days, #10 UNITS 2 Refills Chlorthalidone (Hygroton) 25 Mg Tab 25 MG PO DAILY, TAB Clopidogrel (Plavix) 75 Mg Tab 75 MG PO QAM, TAB Dicyclomine HCl (Dicyclomine HCl) 10 Mg Cap 10 MG PO TID PRN for abdominal cramping Docusate Sodium (Colace) 100 Mg Cap 100 MG PO BID PRN for Constipation Gabapentin (Neurontin) 400 Mg Cap 400 MG PO BID, CAP AT BREAKFAST AND AT BEDTIME Insulin Aspart (Novolog) 100 Units/Ml Inj SQ ACHS for SLIDING SCALE Insulin Isophan/Regular (Novolin 70/30) Susp 80 UNITS SC BID, BTL Ipratropium-Albuterol (Duoneb) 3 Ml Nebu 1 TREATMENT INH QID, INHA Lorazepam (Ativan) 0.5 Mg Tab 0.5 MG PO Q6H PRN for Anxiety, TAB Losartan Potassium (Cozaar) 100 Mg Tab 100 MG PO QAM, TAB Magnesium Oxide (Mag-Ox) 400 Mg Tab 400 MG PO QAM, TAB Metoprolol Tartrate (Lopressor) (Lopressor) 50 Mg Tab 50 MG PO BID, TAB Mirtazapine (Remeron) 30 Mg Tab 30 MG PO HS Omeprazole (Prilosec) 40 Mg Cap 40 MG PO QAM, CAP Pancrelipase (Lipase-Protease- (Creon) 1 Cap Cap 6000 UNITS PO QID Ranitidine (Zantac) 150 Mg Tab 75 MG PO BID, TAB Ropinirole Hydrochloride (Requip) 1 Mg Tab 1 MG PO HS for 30 Days, TAB 2 Refills Tramadol (Ultram) 50 Mg Tab 50 MG PO HS PRN for Pain, TAB Trazodone Hcl (Trazodone) 50 Mg Tab 50 MG PO HS, TAB Admission Information HPI (per Admitting provider): This is a 77yo F with a PMH of recurrent pancreatitis, h/o pancreatic cysts, asthma, anxiety, DM II, HTN, HLD, COPD, DUANE, depression and other conditions listed below who presents from endoscopy s/p EUS with FNA and ERCP with pancreatic stent placement by Dr. Mcfadden for pancreatic cyst and stricture. Patient had a pancreatic stent placed 3 months ago but was found to have a 15mm pancreatic cyst, so underwent a follow-up ERCP today. Findings were consistent with chronic pancreatitis. Developed post-operative pain described as sharp, 8/ 10 midepigastric pain. Pain is intermittent and episodes only last for 5-10 seconds. Associated nausea but no vomiting. Denies any fever, chills, lightheadedness, headache, visual changes, chest pain, SOB, bowel/bladder changes or LE swelling. GI felt that due to patient's abdominal pain and anxious state, it would be best to keep her for overnight observation. . Physical Exam (per Admitting): General Appearance: + mild distress Head: normocephalic, atraumatic Eyes: normal inspection, PERRL, sclerae normal ENT: normal ENT inspection, hearing grossly normal, pharynx normal (dry mucous membranes ) Neck: supple, thyroid normal, trachea midline Respiratory/Chest: chest non-tender, no respiratory distress, no accessory muscle use, + wheezing (Expiratory wheezes, some bibasilar crackles) Cardiovascular: regular rate, rhythm, normal peripheral pulses, + systolic murmur Abdomen/GI: soft, no organomegaly, + tenderness (TTP of mid-epigastrium, no guarding ) Extremities/Musculoskelatal: normal inspection, no calf tenderness, no pedal edema Neurologic/Psych: alert, normal mood/affect, oriented x 3, + pertinent finding (anxious) Skin: normal color, warm/dry Hospital Course PANCREATITIS Admitted with post-ERCP pancreatitis. Managed with bowel rest, IV fluids with improvement. Diet advanced without difficulty. DM TYPE II, POORLY CONTROLLED Hgb A1C 10.3. Blood sugars fluctuating due to acute illness and variable PO intake. Pharmacy consulted for glycemic management. Lantus / NovoLog per protocol. FBS this morning = 88. Discharge on usual outpatient management with ongoing support from [facility]. HYPERTENSION Continue metoprolol, amlodipine, losartan. Follow and titrate Rx. ACUTE ON CHRONIC KIDNEY DISEASE Chronic kidney disease stage III. Serum creatinine 1.08 on admission, lucita as high as 1.50. Received IV fluids. Creatinine = 1.35 today. Follow. VTE PROPHYLAXIS SQ enoxaparin. Ambulate. DISPOSITION Discharge to home. Family Medicine follow-up with Dr. Jefferson. . Total time spent on discharge = 40. This includes examination of the patient, discharge planning, medication reconciliation, and communication with other providers. . Discharge Instructions Date of Service Dec 24, 2017. Admission Reason for Admission: pancreatitis Discharge Discharge Diagnosis / Problem: pancreatitis Discharge Goals Goal(s): Decrease discomfort, Improve disease control Activity Recommendations Activity Limitations: resume your previous activity . Instructions / Follow-Up Instructions / Follow-Up APPOINTMENTS: FAMILY MEDICINE 12/28/2017 11:00 AM Colleen Jefferson DO [facility] 12/29/2017 6:00 PM [facility] [place] OTHER INSTRUCTIONS: Seek medical attention if you have: * temperature above 101 * chest pain or trouble breathing * abdominal pain, nausea, vomiting * diarrhea, dark stools or bloody stools * any unanswered questions or concerns Call 911 if symptoms are severe. Call if you have any questions or problems. My cell # is [phone]. You can also reach a [facility] hospitalist on duty at [facility] 24 hours a day by calling [phone]. Please take good care of yourself. Yonas Gonzalez . Current Hospital Diet Patient's current hospital diet: AHA Diet (Heart Healthy), Diabetes Type 2 Diet Discharge Diet Recommended Diet: AHA Diet (Heart Healthy), Diabetes Type 2 Diet, Low Fat Diet Procedures Procedures Performed: EUS with FNA ERCP with pancreatic stent placement / stricture dilation Pending Studies Studies pending at discharge: no Laboratory Results Hemoglobin A1c Test 12/19/17 06:30 Range/Units Estimated Average Glucose 249 mg/dl Hemoglobin A1c 10.3 H 4.5-5.6 % Medical Emergencies . Who to Call and When: Medical Emergencies: If at any time you feel your situation is an emergency, please call 911 immediately. . Non-Emergent Contact Non-Emergency issues call your: Primary Care Provider, Artillery Specialist, Hospital Doctor . . "Provider Documentation" section prepared by Yonas Gonzalez. . VTE Core Measure Inpt VTE Proph given/why not?: SCD's .
== END 2017-12-24 15:29 | disposition home health service (06) | DRG 438 ==
LOC: C.ACU 08:36 → ENRESERV 12:41 → C.2E 12:55 → OBSVTOIN 12-19 11:06 → EDBEDREQSVC 12-20 10:25 → ENRESERVTM 12-20 10:26 → ENRESERVDT 12-20 10:26 → CANRESERV 12-20 10:26 → ENRESERV 12-20 10:26 → C.MSW 12-20 11:31
PROVIDERS: ADMIT Hospitalist; ATTEND Hospitalist
PROC: BF11YZZ Fluoroscopy of Biliary and Pancreatic Ducts using Other Contrast (ICD-10-PCS; principal; 2017-12-18 10:30)
PROC: 0F9G8ZX Drainage of Pancreas, Via Natural or Artificial Opening Endoscopic, Diagnostic (ICD-10-PCS; principal; 2017-12-18 10:30)
PROC: 0FHD8DZ Insertion of Intraluminal Device into Pancreatic Duct, Via Natural or Artificial Opening Endoscopic (ICD-10-PCS; 2017-12-18 10:30)
PROC: BF11YZZ Fluoroscopy of Biliary and Pancreatic Ducts using Other Contrast (ICD-10-PCS; 2017-12-18 10:30)
PROC: 0FPD8DZ Removal of Intraluminal Device from Pancreatic Duct, Via Natural or Artificial Opening Endoscopic (ICD-10-PCS; 2017-12-18 10:30)
DX: K86.89 Other specified diseases of pancreas (principal); K85.80 Other acute pancreatitis without necrosis or infection; G93.40 Encephalopathy, unspecified; Q45.3 Other congenital malformations of pancreas and pancreatic duct; N17.9 Acute kidney failure, unspecified; K86.2 Cyst of pancreas; K86.1 Other chronic pancreatitis; G89.18 Other acute postprocedural pain; J45.909 Unspecified asthma, uncomplicated; E78.5 Hyperlipidemia, unspecified; I12.9 Hypertensive chronic kidney disease with stage 1 through stage 4 chronic kidney disease, or unspecified chronic kidney disease; J44.9 Chronic obstructive pulmonary disease, unspecified; N18.3 Chronic kidney disease, stage 3 (moderate); E11.649 Type 2 diabetes mellitus with hypoglycemia without coma; Z86.73 Personal history of transient ischemic attack (TIA), and cerebral infarction without residual deficits; F32.9 Major depressive disorder, single episode, unspecified; Z87.891 Personal history of nicotine dependence; Z88.2 Allergy status to sulfonamides; Z79.84 Long term (current) use of oral hypoglycemic drugs; G47.33 Obstructive sleep apnea (adult) (pediatric); K22.4 Dyskinesia of esophagus; E11.43 Type 2 diabetes mellitus with diabetic autonomic (poly)neuropathy; G47.00 Insomnia, unspecified; K76.0 Fatty (change of) liver, not elsewhere classified; Y83.8 Other surgical procedures as the cause of abnormal reaction of the patient, or of later complication, without mention of misadventure at the time of the procedure; Y92.239 Unspecified place in hospital as the place of occurrence of the external cause

== ENCOUNTER 2018-03-26 11:57 | Inpatient (IN) | payer OTHER, MEDICARE ==
[~2018-03-26] VITALS: Ht 152.4 cm; Wt 72.4 kg
[~2018-03-26 11:57] MED LIST changes: -AMLO-110 PO; +AMLO-114 PO; -ASPI1TAB83 PO; -ATROPINE SULFATE 0.1 MG/ML 5ML SYR IV PRN; +BNT/10 PO; -BNT10 PO; -ESCI10TA17 PO; -EpHEDrine SULFATE INJ 50 MG/ML AMP IV PRN; +GABA-1220 PO; -GABA1CAP5 PO; +HYG/25 PO; -LACTATED RINGER'S 1000ML 1,000 ML IV SCH; -LPT10 PO; -ONDANSETRON INJ 2 MG/ML 2 ML VIAL IV PRN; -PANT40TA PO; +RANI150T85 PO; -ZNTT/150 PO
--- NOTE | 2018-03-26 12:16 | EMERGENCY ROOM VISIT NOTE ---
History First contact with patient: 12:03 Chief Complaint: BACK PAIN Stated Complaint: BACK PAIN History of Present Illness The patient is a 77 year old female who presents to the Emergency Room with complaints of back pain, lumbar. The patient also notes the following associated symptoms, nausea, headache, generalized weakness, mildly SOB, left flank swelling. This started yesterday afternoon and is worsening. The patient has tried nothing for relieving factors. Pain is an 8/10 and constant. This reminds her of prior pancreatitis episodes. Pt denies LOC, headache, fevers, chills, diaphoresis, visual changes, neck pain, chest pain, vomiting, abdominal pain, melena, hematochezia, urinary symptoms, saddle anethesia, bowel or bladder changes/incontinence, numbness, focal weakness, lymphadenopathy, rash , or other complaints. Review of Systems See HPI for pertinent positives and negatives. A total of ten systems were reviewed and were otherwise negative. 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 (10) Depression (11) Diabetes mellitus type 2 (12) Diabetic neuropathy (13) Dyslipidemia (14) Esophageal dysmotility (15) Fatty liver (16) Gastroparesis (17) Giant cell arteritis (18) Insomnia (19) Pancreatic divisum (20) Sciatica (21) Sleep apnea Surgical Problems: (1) cataract surgery (2) H/O esophagogastroduodenoscopy (3) History of - tubal ligation (4) History of cholecystectomy (5) History of ERCP (6) S/P ERCP (7) S/P ERCP (8) S/P ERCP (9) S/p fixation of left ankle fracture Family History Diabetes mellitus GRANDMOTHER MOTHER FH: Parkinson's disease Hypertension Stroke GRANDFATHER Social History Smoking Status: Former Smoker Alcohol Use: none Drug Use: none Marital Status: Housing Status: lives alone Occupation Status: retired Current/Historical Medications Scheduled Amlodipine (Norvasc), 10 MG PO DAILY Aspirin (Aspirin Ec), 81 MG PO DAILY Atorvastatin (Lipitor), 10 MG PO DAILY Chlorthalidone (Hygroton), 25 MG PO DAILY Escitalopram (Lexapro), 15 MG PO DAILY Fluticasone Propionate (Nasal) (Flonase Allergy Relief), 2 SPRAYS JOSE MANUEL DAILY Gabapentin (Neurontin), 400 MG PO BID Insulin Human Regular (Humulin R), 24 UNITS SQ BID Insulin Isophan/Regular (Novolin 70/30), 85 UNITS SC BID Losartan Potassium (Cozaar), 100 MG PO QAM Magnesium Oxide (Mag-Ox), 400 MG PO QAM Metoprolol Tartrate (Lopressor) (Lopressor), 50 MG PO BID Mirtazapine (Remeron), 30 MG PO HS Pancrelipase (Lipase-Protease- (Creon), 6,000 UNITS PO QID Pantoprazole (Protonix), 40 MG PO DAILY Ranitidine HCl (Ranitidine 75), 75 MG PO BID Ropinirole Hydrochloride (Requip), 1 MG PO HS Trazodone Hcl (Trazodone), 50 MG PO HS Scheduled PRN Albuterol Hfa (Ventolin Hfa), 2 PUFFS INH Q4 PRN for Cough Dicyclomine HCl (Dicyclomine HCl), 10 MG PO TID PRN for abdominal cramping Docusate Sodium (Colace), 100 MG PO BID PRN for Constipation Ipratropium-Albuterol (Duoneb), 1 TREATMENT INH QID PRN for SOB/Wheezing Lorazepam (Ativan), 0.5 MG PO Q6H PRN for Anxiety Physical Exam Vital Signs Date Time Temp Pulse Resp B/P (MAP) Pulse Ox O2 Delivery O2 Flow Rate FiO2 03/26/18 15:24 83 13 141/95 93 Room Air 03/26/18 15:05 93 Room Air 03/26/18 13:16 89 03/26/18 13:12 87 24 142/90 93 Room Air 03/26/18 11:58 36.7 108 190/92 96 Room Air Physical Exam GENERAL: Awake, alert, uncomfortable-appearing, in mild distress HENT: Normocephalic, atraumatic. Oropharynx unremarkable. EYES: Normal conjunctiva. Sclera non-icteric. NECK: Supple. No nuchal rigidity. FROM. No masses. RESPIRATORY: Clear to auscultation. No wheezes. No rales. Normal respiratory effort. CARDIAC: Normal rate. Normal rhythm. No murmurs. No rubs. Extremities warm and well perfused. Pulses equal. No JVD. GI: Soft, non-distended. Epigastric tenderness to palpation. No rebound or guarding. No masses. RECTAL: Deferred. MUSCULOSKELETAL: Atraumatic. Chest examination reveals no tenderness. The back is symmetrical on inspection without obvious abnormality. Low lumbar tenderness. There is LEFT CVA tenderness to palpation. No joint edema. LOWER EXTREMITIES: Calves are equal size bilaterally and non-tender. No edema. No discoloration. NEURO: Normal sensorium. No sensory or motor deficits noted. No saddle anesthesia. Symmetric reflexes. SKIN: No rash or jaundice noted. Medical Decision & Procedures ER Provider Diagnostic Interpretation: ABD/PELVIS NO IV OR ORAL CONT CLINICAL HISTORY: 77 years-old Female presenting with severe upper abd pain, h/o pancreatitis, radiating to back, L . TECHNIQUE: Multidetector CT of the abdomen and pelvis was performed without the use of intravenous contrast. IV contrast: None. A dose lowering technique was used consistent with the principles of ALARA (as low as reasonably achievable). COMPARISON: 12/20/2017. CT DOSE (mGy.cm): The estimated cumulative dose is 433.49 mGy.cm. FINDINGS: Glass Scullion topogram: Pancreatic duct stent noted. Cholecystectomy clips. Lung bases: Minimal basilar opacities, likely atelectasis. Calcified granuloma noted at the left lower lobe. Top normal heart size. Coronary artery, aortic valve, and mitral annular calcification. No pericardial or pleural effusion. Liver: Normal morphology. Density consistent with hepatic steatosis. Parenchyma calcifications suggest prior granulomatous infection. Biliary: No intrahepatic or extrahepatic biliary ductal dilatation. Gallbladder surgically absent. Pancreas: Pancreatic duct stent in place, which terminates in the duodenum. No gross evidence of pancreatic ductal dilatation. No peripancreatic inflammatory change. Moderate atrophy of the pancreatic parenchyma. Coarse calcifications in the parenchyma suggest a history of chronic pancreatitis. Spleen: Parenchymal calcifications suggest a history of prior granulomatous infection. Adrenal glands: Normal noncontrast appearance. Kidneys and ureters: Normal noncontrast appearance. No nephrolithiasis. No hydronephrosis. Normal ureters. Bladder: Normal. Pelvic organs: Normal noncontrast appearance. Bowel: Limited diverticulosis of the sigmoid colon. Mild stool burden throughout the colon. Lipomatous hypertrophy of the ileocecal valve. The appendix is normal. No bowel obstruction. Feces in the terminal ileum suggests delayed transit. Peritoneal cavity: No free fluid or intraperitoneal gas. Lymph nodes: No gross lymphadenopathy allowing for noncontrast technique. Vasculature: Atherosclerosis of the normal caliber abdominal aorta. Abdominal wall: Foci of gas noted in the left anterior abdominal wall likely from medication menstruation. Musculoskeletal: Degenerative changes of the spine. Geographic sclerosis in the femoral heads, right greater than left suggests osteonecrosis. No cortical collapse. This is similar to prior. IMPRESSION: 1. Pancreatic duct stent in place. No pancreatic ductal dilatation. No evidence of acute pancreatitis at this time. Findings consistent with chronic pancreatitis. 2. Evidence of prior granulomatous infection. 3. Limited diverticulosis. No evidence of diverticulitis. 4. Osteonecrosis of the femoral heads, right greater than left. Electronically signed by: Paul Coronado M.D. 03/26/2018 1:53 PM Dictated Date/Time: 03/26/2018 1:40 PM The status of this report is Signed. Draft = Not yet reviewed or approved by Radiologist. Signed = Reviewed and approved by Radiologist Laboratory Results 03/26/18 12:45 Red Blood Count 4.69, Mean Corpuscular Volume 85.3, Mean Corpuscular Hemoglobin 31.1, Mean Corpuscular Hemoglobin Concent 36.5, Mean Platelet Volume 9.4, Neutrophils (%) (Auto) 64.5, Lymphocytes (%) (Auto) 22.3, Monocytes (%) (Auto) 6.2, Eosinophils (%) (Auto) 6.3, Basophils (%) (Auto) 0.4, Neutrophils # (Auto) 9.26, Lymphocytes # (Auto) 3.21, Monocytes # (Auto) 0.89, Eosinophils # (Auto) 0.90, Basophils # (Auto) 0.06 03/26/18 12:45 Test 03/26/18 12:45 White Blood Count 14.37 K/uL (4.8-10.8) Red Blood Count 4.69 M/uL (4.2-5.4) Hemoglobin 14.6 g/dL (12.0-16.0) Hematocrit 40.0 % (37-47) Mean Corpuscular Volume 85.3 fL (80-100) Mean Corpuscular Hemoglobin 31.1 pg (25-34) Mean Corpuscular Hemoglobin Concent 36.5 g/dl (32-36) Platelet Count 201 K/uL (130-400) Mean Platelet Volume 9.4 fL (7.4-10.4) Neutrophils (%) (Auto) 64.5 % Lymphocytes (%) (Auto) 22.3 % Monocytes (%) (Auto) 6.2 % Eosinophils (%) (Auto) 6.3 % Basophils (%) (Auto) 0.4 % Neutrophils # (Auto) 9.26 K/uL (1.4-6.5) Lymphocytes # (Auto) 3.21 K/uL (1.2-3.4) Monocytes # (Auto) 0.89 K/uL (0.11-0.59) Eosinophils # (Auto) 0.90 K/uL (0-0.5) Basophils # (Auto) 0.06 K/uL (0-0.2) RDW Standard Deviation 41.5 fL (36.4-46.3) RDW Coefficient of Variation 13.4 % (11.5-14.5) Immature Granulocyte % (Auto) 0.3 % Immature Granulocyte # (Auto) 0.05 K/uL (0.00-0.02) Anion Gap 9.0 mmol/L (3-11) Est Creatinine Clear Calc Drug Dose 29.5 ml/min Estimated GFR () 41.2 Estimated GFR (Non- 35.5 BUN/Creatinine Ratio 18.9 (10-20) Calcium Level 9.2 mg/dl (8.5-10.1) Magnesium Level 1.7 mg/dl (1.8-2.4) Total Bilirubin 0.4 mg/dl (0.2-1) Direct Bilirubin 0.1 mg/dl (0-0.2) Aspartate Amino Transf (AST/SGOT) 29 U/L (15-37) Alanine Aminotransferase (ALT/SGPT) 31 U/L (12-78) Alkaline Phosphatase 108 U/L (45-117) Total Protein 7.5 gm/dl (6.4-8.2) Albumin 3.4 gm/dl (3.4-5.0) Lipase 737 U/L (73-393) Beta-Hydroxybutyric Acid 5.91 mg/dL (0.2-2.81) Medications Administered Medications (Trade) Dose Ordered Sig/Rosetta Route Start Time Stop Time Status Last Admin Dose Admin Hydromorphone HCl (Dilaudid Inj) 1 mg Q15M PRN IV 03/26/18 12:30 03/26/18 18:18 DC 03/26/18 15:40 1 MG Ondansetron HCl (Zofran Inj) 4 mg NOW STAT IV 03/26/18 12:17 03/26/18 12:22 DC 03/26/18 13:03 4 MG Sodium Chloride 1,000 ml @ 125 mls/hr Q8H STAT IV 03/26/18 12:17 03/26/18 18:17 DC 03/26/18 13:03 125 MLS/HR Insulin Human Regular (novoLIN-R U-100 PER UNIT) 10 units NOW STAT IV 03/26/18 14:02 03/26/18 14:03 DC 03/26/18 14:25 10 UNITS Medical Decision Triage Nursing notes reviewed. The patient's presentation and history were concerning for back and flank pain with weakness and hx of pancreatitis. Etiologies such as lumbago, DDD, pancreatitis, metabolic, infection, hypo/ hyperglycemia, electrolyte abnormalities, cardiac sources, intracerebral event, toxicologic, neurologic, as well as others were entertained. The patient was evaluated. Her abdominal examination was somewhat concerning and her history of pancreatitis caused further testing to be necessary. Blood work showed a mild leukocytosis. Chemistry panel was unremarkable. The patient 's lipase was moderately elevated concerning for pancreatitis. She does have clinical findings consistent with pancreatitis and has the elevated lipase. She has a history of pancreatitis with an indwelling pancreatic stent. The patient had a negative straight leg raise. She has no saddle anesthesia. She required several doses of IV Dilaudid. She was treated with IV fluids and Zofran. Further management will be necessary in the hospital. The patient had a consultation placed with the [facility] service. The case was discussed. Patient was evaluated in the ER for further management. Impression Primary Impression: Pancreatitis Departure Information Dispostion Being Evaluated By Hospitalist Colleen Castro D.O. (PCP) Patient Instructions [facility]
[2018-03-26] MEDS ORDERED: SODIUM CHLORIDE 0.9% 1000ML 1,000 ML IV STA (12:17)
[2018-03-26] MEDS ORDERED: ONDANSETRON INJ 2 MG/ML 2 ML VIAL IV STA (12:17)
[2018-03-26] MEDS: HYDROmorphone INJ 1 MG/ML SYR IV PRN ×3 (13:03→15:40)
[2018-03-26 13:07] LABS: BASO % 0.4 %; BASO ABS # 0.06 K/uL (0-0.2); EOS % 6.3 %; HEMOGLOBIN 14.6 g/dL (12.0-16.0); IG# 0.05 K/uL (0.00-0.02); LYMPH % 22.3 %; LYMPH ABS # 3.21 K/uL (1.2-3.4); MEAN CELL VOLUME 85.3 fL (80-100); MEAN CORPUSCULAR HEMOGLOBIN 31.1 pg (25-34); MEAN CORPUSCULAR HGB CONC 36.5 g/dl (32-36); MEAN PLATELET VOLUME 9.4 fL (7.4-10.4); MONO % 6.2 %; MONO ABS # 0.89 K/uL (0.11-0.59); NEUT % 64.5 %; NEUT ABS # 9.26 K/uL (1.4-6.5); PLATELET COUNT 201 K/uL (130-400); RED CELL DISTRIBUTION WIDTH CV 13.4 % (11.5-14.5); RED CELL DISTRIBUTION WIDTH SD 41.5 fL (36.4-46.3); WHITE BLOOD COUNT 14.37 K/uL (4.8-10.8)
[2018-03-26 13:24] LABS: ALBUMIN 3.4 gm/dl (3.4-5.0); CALCIUM 9.2 mg/dl (8.5-10.1); CREATININE 1.42 mg/dl (0.60-1.20); POTASSIUM 3.9 mmol/L (3.5-5.1)
[2018-03-26 13:26] LABS: TOTAL PROTEIN 7.5 gm/dl (6.4-8.2)
[2018-03-26] MEDS ORDERED: ESCI10TA17 PO (13:52)
[2018-03-26] MEDS ORDERED: ATOR10TA82 PO (13:52)
[2018-03-26] MEDS ORDERED: INSHRIE SQ (13:52)
[2018-03-26] MEDS ORDERED: FLUT0.15 NAE (13:52)
[2018-03-26] MEDS ORDERED: PANT40TA PO (13:52)
[2018-03-26] MEDS ORDERED: RANI1TAB75 PO (13:52)
[2018-03-26] MEDS ORDERED: ASPI81TA28 PO (13:52)
--- NOTE | 2018-03-26 13:54 | DIAGNOSTIC IMAGING REPORT ---
ABD/PELVIS NO IV OR ORAL CONT CLINICAL HISTORY: 77 years-old Female presenting with severe upper abd pain, h/o pancreatitis, radiating to back, L . TECHNIQUE: Multidetector CT of the abdomen and pelvis was performed without the use of intravenous contrast. IV contrast: None. A dose lowering technique was used consistent with the principles of ALARA (as low as reasonably achievable). COMPARISON: 12/20/2017. CT DOSE (mGy.cm): The estimated cumulative dose is 433.49 mGy.cm. FINDINGS: Public Relations Coordinator topogram: Pancreatic duct stent noted. Cholecystectomy clips. Lung bases: Minimal basilar opacities, likely atelectasis. Calcified granuloma noted at the left lower lobe. Top normal heart size. Coronary artery, aortic valve, and mitral annular calcification. No pericardial or pleural effusion. Liver: Normal morphology. Density consistent with hepatic steatosis. Parenchyma calcifications suggest prior granulomatous infection. Biliary: No intrahepatic or extrahepatic biliary ductal dilatation. Gallbladder surgically absent. Pancreas: Pancreatic duct stent in place, which terminates in the duodenum. No gross evidence of pancreatic ductal dilatation. No peripancreatic inflammatory change. Moderate atrophy of the pancreatic parenchyma. Coarse calcifications in the parenchyma suggest a history of chronic pancreatitis. Spleen: Parenchymal calcifications suggest a history of prior granulomatous infection. Adrenal glands: Normal noncontrast appearance. Kidneys and ureters: Normal noncontrast appearance. No nephrolithiasis. No hydronephrosis. Normal ureters. Bladder: Normal. Pelvic organs: Normal noncontrast appearance. Bowel: Limited diverticulosis of the sigmoid colon. Mild stool burden throughout the colon. Lipomatous hypertrophy of the ileocecal valve. The appendix is normal. No bowel obstruction. Feces in the terminal ileum suggests delayed transit. Peritoneal cavity: No free fluid or intraperitoneal gas. Lymph nodes: No gross lymphadenopathy allowing for noncontrast technique. Vasculature: Atherosclerosis of the normal caliber abdominal aorta. Abdominal wall: Foci of gas noted in the left anterior abdominal wall likely from medication menstruation. Musculoskeletal: Degenerative changes of the spine. Geographic sclerosis in the femoral heads, right greater than left suggests osteonecrosis. No cortical collapse. This is similar to prior. IMPRESSION: 1. Pancreatic duct stent in place. No pancreatic ductal dilatation. No evidence of acute pancreatitis at this time. Findings consistent with chronic pancreatitis. 2. Evidence of prior granulomatous infection. 3. Limited diverticulosis. No evidence of diverticulitis. 4. Osteonecrosis of the femoral heads, right greater than left. Electronically signed by: Paul Coronado M.D. 03/26/2018 1:53 PM Dictated Date/Time: 03/26/2018 1:40 PM
[2018-03-26] MEDS ORDERED: NovoLIN-R INSULIN PER UNIT CHARGE IV STA (14:02)
[2018-03-26 15:05] VITALS: O2SAT 93; Ht 152.4 cm; Wt 72.4 kg
[2018-03-26] MEDS ORDERED: POLYETHYLENE (MIRALAX) 17 GM PACK PO PRN (15:45)
[2018-03-26] MEDS ORDERED: ALUMINUM/MAGNESIUM/SIMETH (MAALOX MAX) 30 ML UDC PO PRN (15:45)
[2018-03-26] MEDS ORDERED: GLUCAGON FOR INJ 1 MG VIAL SQ PRN (16:00)
[2018-03-26] MEDS ORDERED: HYDROmorphone INJ 0.5 MG/0.5 ML SYR IV PRN (16:00)
[2018-03-26] MEDS ORDERED: CARBOHYDRATES FOR HYPOGLYCEMIA PO PRN (16:00)
[2018-03-26] MEDS ORDERED: GLUCOSE 10 TABS/TUBE PO PRN (16:00)
[2018-03-26] MEDS ORDERED: DEXTROSE 50% 50 ML SYR IV PRN (16:00)
[2018-03-26] MEDS ORDERED: GLUCOSE 40% GEL 15 GM TUBE PO PRN (16:00)
[2018-03-26] MEDS: ONDANSETRON INJ 2 MG/ML 2 ML VIAL IV PRN ×3 (16:04→21:41)
[2018-03-26] MEDS ORDERED: TRAZ50TA35 PO (16:12)
[2018-03-26] MEDS ORDERED: DICYCLOMINE HCL 10 MG CAP PO PRN (16:15)
[2018-03-26] MEDS ORDERED: DOCUSATE SODIUM 100 MG CAP PO PRN (16:15)
[2018-03-26] MEDS ORDERED: ALBUT/IPRATROP 3MG/0.5MG NEB 3 ML VIAL INH PRN (16:15)
[2018-03-26] MEDS ORDERED: LORAZEPAM 0.5 MG TAB PO PRN (16:15)
[2018-03-26] MEDS ORDERED: ALBUTEROL HFA 8 GM INHALER INH PRN (16:15)
--- NOTE | 2018-03-26 16:45 | History and Physical ---
History & Physical Date & Time of Service: March 26, 2018 at 16:13 Chief Complaint: Back Pain Primary Care Physician: Colleen Jefferson D.O. History of Present Illness Source: patient, clinic records, hospital records Pt is 77 y/o F with PMH asthma, COPD, anxiety, HTN, HLD, DM II, chronic pancreatitis, h/o pancreatic cyst and others listed below who presented to ER with complaint of abdominal pain. Patient states has chronic left upper abdominal pain yesterday started with some increased left flank tenderness and today with increased left upper abdominal tenderness and nausea. Patient states this morning legs felt weak when trying to get out of bed. Denies falls. Reports was able to get herself back when she states she felt shaky all over. Denies known fever or chills. Denies vomiting or diarrhea. Last BM 2 days ago. She ate 2 pieces of toast and cup coffee for breakfast today and retained. Does not feel that caused any worsening abdominal pain. Patient also complaining of generalized headache and reports this always happens when she has pancreatitis. Patient with history of ERCP and pancreatic stent placement 11/[address] Mcfadden. Patient reports an approximately 1 month is to have stent removed. She states past day has been having intermittent cramps to bilateral calves. Denies diaphoresis, N/V/D/C, dizziness, syncope, vision changes, neck pain, CP, SOB, orthopnea, palpitations, cough, sore throat, choking, otalgia, rhinorrhea, paresthesias, extremity edema, rashes, urinary symptoms, weight loss. 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 (9) Depression Status: Chronic (10) Diabetes mellitus type 2 Status: Chronic (11) Diabetic neuropathy Status: Chronic (12) Dyslipidemia Status: Chronic (13) Esophageal dysmotility Status: Chronic (14) Fatty liver Status: Chronic (15) Gastroparesis Status: Chronic (16) Giant cell arteritis Status: Resolved (17) Insomnia Status: Chronic (18) Pancreatic divisum Status: Chronic (19) Sciatica Status: Chronic (20) Sleep apnea Status: Chronic Surgical Problems: (1) cataract surgery Permanent Comment: Right Status: Chronic (2) H/O esophagogastroduodenoscopy Permanent Comment: EGD/EUS 11/01/14- gastritis, hiatal hernia, normal amuplla, fatty infiltration of liver. 3 mm by 10 mm cystic lesion seen in pancreatic head , most consistent with intraductal papillary mucinous neoplasm based on EUS from 2011 Status: Chronic (3) History of - tubal ligation Status: Chronic (4) History of cholecystectomy Status: Chronic (5) History of ERCP Permanent Comment: 09/16/17 - biliary sludge, pancreatic stricture, chronic pancreatitis, stent placed Status: Resolved (6) S/P ERCP Permanent Comment: 11/2017-Dr. Mcfadden Status: Resolved (7) S/P ERCP Permanent Comment: 12/07/14- prior biliary endoscopic sphincterotomy appeared open. cholangiogram was normal. unable to cannulate pancreatic duct Status: Chronic (8) S/P ERCP Permanent Comment: 05/03/15- minor duct sphincterotomy and pancreatic duct stent placement Status: Chronic (9) S/p fixation of left ankle fracture Status: Chronic Family History Diabetes mellitus GRANDMOTHER MOTHER FH: Parkinson's disease Hypertension Stroke GRANDFATHER Social History Smoking Status: Former Smoker Smokeless Tobacco Use: No Alcohol Use: none Drug Use: none Marital Status: Housing status: lives alone, other Occupational Status: retired Immunizations History of Influenza Vaccine: Yes History of Tetanus Vaccine?: Yes Tetanus Immunization Date: Sep 27, 2007 History of Pneumococcal: No Pneumococcal Date: Apr 28, 2007 History of Hepatitis B Vaccine: Yes Hepatitis Immunization Date: Sep 27, 2000 Allergies Coded Allergies: Iodinated Diagnostic Agents (Verified Allergy, Severe, RASH TO IVP DYE, NAUSEA, FAINTING, COUGHING, GAGGING, HEADACH, 03/26/18) Sulfa Antibiotics (Verified Allergy, Severe, HIVES, FACIAL AND ARM SWELLING, 03/26/18) Cerivastatin (Verified Allergy, Intermediate, HIVES, 03/26/18) Codeine (Verified Allergy, Intermediate, "PRICKLY RASH", 03/26/18) Hydroxyzine (Verified Allergy, Intermediate, N/V, 03/26/18) Latex1 -Allergic Contact Dermititis (Verified Allergy, Intermediate, DERMATITIS-PT TOLERATED A LATEX CATHETER 03/26/08, 03/26/18) Diphenhydramine (Verified Allergy, Mild, RASH; SLEEPINESS WITH "PHARBEDRYL ", 03/26/18) Loratadine (Verified Allergy, Mild, HIVES, 03/26/18) Sulfamethoxazole w/Trimethoprim (Verified Allergy, Mild, RASH, 03/26/18) Prednisone (Verified Allergy, Unknown, unknown, 03/26/18) Tetanus Toxoid (Verified Adverse Reaction, Intermediate, SWELLING AT INJECTION SITE, 03/26/18) Alprazolam (Verified Adverse Reaction, Unknown, "SLEEPY STUPER", 03/26/18) Metformin (Verified Adverse Reaction, Unknown, DIARRHEA, 03/26/18) Morphine (Verified Adverse Reaction, Unknown, VOMITING, 03/26/18) Simvastatin (Verified Adverse Reaction, Unknown, COUGH, "DISCOMFORT", ) Home Medications Scheduled Amlodipine (Norvasc), 10 MG PO DAILY Aspirin (Aspirin Ec), 81 MG PO DAILY Atorvastatin (Lipitor), 10 MG PO DAILY Chlorthalidone (Hygroton), 25 MG PO DAILY Escitalopram (Lexapro), 15 MG PO DAILY Fluticasone Propionate (Nasal) (Flonase Allergy Relief), 2 SPRAYS JOSE MANUEL DAILY Gabapentin (Neurontin), 400 MG PO BID Insulin Human Regular (Humulin R), 24 UNITS SQ BID Insulin Isophan/Regular (Novolin 70/30), 85 UNITS SC BID Losartan Potassium (Cozaar), 100 MG PO QAM Magnesium Oxide (Mag-Ox), 400 MG PO QAM Metoprolol Tartrate (Lopressor) (Lopressor), 50 MG PO BID Mirtazapine (Remeron), 30 MG PO HS Pancrelipase (Lipase-Protease- (Creon), 6,000 UNITS PO QID Pantoprazole (Protonix), 40 MG PO DAILY Ranitidine HCl (Ranitidine 75), 75 MG PO BID Ropinirole Hydrochloride (Requip), 1 MG PO HS Trazodone Hcl (Trazodone), 50 MG PO HS Scheduled PRN Albuterol Hfa (Ventolin Hfa), 2 PUFFS INH Q4 PRN for Cough Dicyclomine HCl (Dicyclomine HCl), 10 MG PO TID PRN for abdominal cramping Docusate Sodium (Colace), 100 MG PO BID PRN for Constipation Ipratropium-Albuterol (Duoneb), 1 TREATMENT INH QID PRN for SOB/Wheezing Lorazepam (Ativan), 0.5 MG PO Q6H PRN for Anxiety Review of Systems See HPI for pertinent positives & negatives. All other systems reviewed and were otherwise negative Physical Exam Vital Signs Date Time Temp Pulse Resp B/P (MAP) Pulse Ox O2 Delivery O2 Flow Rate FiO2 03/26/18 15:24 83 13 141/95 93 Room Air 03/26/18 15:05 93 Room Air 03/26/18 13:16 89 03/26/18 13:12 87 24 142/90 93 Room Air 03/26/18 11:58 36.7 108 190/92 96 Room Air General Appearance: WD/WN, no apparent distress Head: normocephalic, atraumatic Eyes: normal inspection, sclerae normal ENT: hearing grossly normal, pharynx normal, + pertinent finding (Mucous membranes dry) Neck: supple, no JVD, trachea midline Respiratory/Chest: lungs clear, normal breath sounds, no respiratory distress Cardiovascular: regular rate, rhythm, no murmur, normal peripheral pulses Abdomen/GI: normal bowel sounds, soft, + pertinent finding (Tenderness to palpation return, left upper quadrant without rebound.) Back: no CVA tenderness Extremities/Musculoskelatal: no calf tenderness, normal capillary refill, no pedal edema, normal range of motion Neurologic/Psych: alert, normal mood/affect, oriented x 3 Skin: normal color, warm/dry Diagnostics Laboratory Results Results Past 24 Hours Test 03/26/18 12:45 03/26/18 14:24 03/26/18 15:31 Range/Units White Blood Count 14.37 4.8-10.8 K/uL Red Blood Count 4.69 4.2-5.4 M/uL Hemoglobin 14.6 12.0-16.0 g/dL Hematocrit 40.0 37-47 % Mean Corpuscular Volume 85.3 80-100 fL Mean Corpuscular Hemoglobin 31.1 25-34 pg Mean Corpuscular Hemoglobin Concent 36.5 32-36 g/dl Platelet Count 201 130-400 K/uL Mean Platelet Volume 9.4 7.4-10.4 fL Neutrophils (%) (Auto) 64.5 % Lymphocytes (%) (Auto) 22.3 % Monocytes (%) (Auto) 6.2 % Eosinophils (%) (Auto) 6.3 % Basophils (%) (Auto) 0.4 % Neutrophils # (Auto) 9.26 1.4-6.5 K/uL Lymphocytes # (Auto) 3.21 1.2-3.4 K/uL Monocytes # (Auto) 0.89 0.11-0.59 K/uL Eosinophils # (Auto) 0.90 0-0.5 K/uL Basophils # (Auto) 0.06 0-0.2 K/uL RDW Standard Deviation 41.5 36.4-46.3 fL RDW Coefficient of Variation 13.4 11.5-14.5 % Immature Granulocyte % (Auto) 0.3 % Immature Granulocyte # (Auto) 0.05 0.00-0.02 K/uL Sodium Level 134 136-145 mmol/L Potassium Level 3.9 3.5-5.1 mmol/L Chloride Level 104 98-107 mmol/L Carbon Dioxide Level 21 21-32 mmol/L Anion Gap 9.0 3-11 mmol/L Blood Urea Nitrogen 27 7-18 mg/dl Creatinine 1.42 0.60-1.20 mg/dl Est Creatinine Clear Calc Drug Dose 29.5 ml/min Estimated GFR () 41.2 Estimated GFR (Non- 35.5 BUN/Creatinine Ratio 18.9 10-20 Random Glucose 332 70-99 mg/dl Calcium Level 9.2 8.5-10.1 mg/dl Magnesium Level 1.7 1.8-2.4 mg/dl Total Bilirubin 0.4 0.2-1 mg/dl Direct Bilirubin 0.1 0-0.2 mg/dl Aspartate Amino Transf (AST/SGOT) 29 15-37 U/L Alanine Aminotransferase (ALT/SGPT) 31 12-78 U/L Alkaline Phosphatase 108 45-117 U/L Total Protein 7.5 6.4-8.2 gm/dl Albumin 3.4 3.4-5.0 gm/dl Lipase 737 73-393 U/L Beta-Hydroxybutyric Acid 5.91 0.2-2.81 mg/dL Bedside Glucose 306 203 70-90 mg/dl Diagnostic Radiology CT ABDOMEN PELVIS IMPRESSION: 1. Pancreatic duct stent in place. No pancreatic ductal dilatation. No evidence of acute pancreatitis at this time. Findings consistent with chronic pancreatitis. 2. Evidence of prior granulomatous infection. 3. Limited diverticulosis. No evidence of diverticulitis. 4. Osteonecrosis of the femoral heads, right greater than left. Impression Assessment and Plan Pt is 77 y/o F with PMH asthma, COPD, anxiety, HTN, HLD, DM II, chronic pancreatitis, h/o pancreatic cyst and others listed below who presented to ER with complaint of abdominal pain x 1 day. CHRONIC PANCREATITIS/ACUTE ON CHRONIC ABDOMINAL PAIN History of EUS with FNA and ERCP with pancreatic stent placed by Dr. Mcfadden in . Patient with increased abdominal pain, nausea today. In ER today WBC: 14, lipase 737. Patient afebrile. CT ABD/pelvis:Pancreatic duct stent in place. No pancreatic ductal dilatation. No evidence of acute pancreatitis at this time. Findings consistent with chronic pancreatitis. Patient given Dilaudid, Zofran, NSS at 125 mL/HR -Pending UA -IVF -Zofran as needed nausea -Dilaudid as needed pain -N.p.o. except for sips and ice chips at this time, plan to advance to a clear liquid diet tomorrow as tolerated -Continue PPI and H2 aaliyah -Continue Bentyl as needed -GI consult -Repeat CBC and urine electrolyte panel in a.m. POORLY CONTROLLED DM II Glucose 330 to ER. Beta hydroxybutyric acid 5.9. No anion gap. HA1c 9.3 on 01/26/18. Patient reports BSG at home 300-400's consistently. In ER given 10 units of insulin or IV and glucose down to 200. -Patient with history difficult to control BSG in past hospitalizations with hypoglycemic episodes -NovoLog sliding scale as per protocol, decrease patient's home NPH secondary to n.p.o. at this time -Glycemic pharmacist consult CKD III Cr: 1.4 (baseline~1.3) -Monitor renal function -Avoid nephrotoxic agents when possible PSEUDOHYPONATREMIA Na: 138 corrected for glucose of 332. HTN Initially hypertensive and then stable after pain control. -Continue metoprolol, amlodipine, -hold losartan,chlorthalidone at this time for MARIE ASTHMA/COPD No shortness of breath or chest pain or wheezing. -Continue home inhalers and neb treatment as needed HX CVA -Continue ASA, Plavix -Hold statin ANXIETY -Continue Lorazepam as needed -Continue Lexapro PERIPHERAL NEUROPATHY -Continue gabapentin RLS/INSOMNIA -Continue trazodone and mirtazapine, ropinirole DVT Prophylaxis -heparin SQ Disposition admit medsurg Full Code as per discussion with pt Follows with Dr Jefferson for routine care Pt was seen with Dr Breen. See addendum ATTENDING ADDENDUM : Patient seen and examined care clinic coordinated with Alla Bundy PA-C Labs and images reviewed This is a 77-year-old female with complex past medical history of recurrent chronic pancreatitis secondary to IPMN(intraductal papillary mucinous neoplasm)- underwent multiple ERCP/EUS This post recent pancreatic stent placed in November 2017 by GI team Her other medical conditions include-anxiety disorder/depression/brittle type 2 diabetes-on insulin (very difficult to manage blood sugar variation-noted in multiple past admissions), CKD stage III/COPD/diabetic neuropathy/hyperlipidemia Presented to ER with complaint of worsening of left upper abdominal pain/ associated with nausea No report of fever, no report of vomiting or diarrhea Very poor appetite, feels generalized weakness No report of fall Lab shows elevated lipase >700 CT abdomen pelvis: Pancreatic duct stent in place. No pancreatic ductal dilatation. No evidence of acute pancreatitis at this time. Findings consistent with chronic pancreatitis. Admit to medical floor/IV fluids/bowel rest GI eval requested TYPE 2 DIABETES/INSULIN-DEPENDENT Presents with BSG more than 200 Difficult to manage blood sugars Continue basal Lantus/ insulin sliding scale Pharmacy consulted for glycemic management GENERALIZED WEAKNESS/FATIGUE PT OT evaluation Social service consulted for discharge plan ACUTE RENAL FAILURE ON CKD STAGE III Possible secondary to poor p.o. intake/chronic pancreatitis Hold losartan,chlorthalidone at this time Ordered for IV fluids Follow PRP Please refer to further documentation by Alla Bundy PA-C for discussion of other chronic issues Ann Marie Breen MD Advanced Directives Existing Living Will: Yes Existing Power of Rn Er: Yes Resuscitation Status VTE Prophylaxis Will order VTE Prophylaxis: Yes Additional Copies To Colleen Jefferson D.O.
[2018-03-26] MEDS ORDERED: PHARMACY GLYCEMIC MGMT CONSULT PRN (17:10)
[2018-03-26 17:35] VITALS: BP 156/84; PULSE 81; TEMP 36.5; O2SAT 92
[2018-03-26] MEDS: SODIUM CHLORIDE 0.9% 1000ML 1,000 ML IV SCH (18:05)
[2018-03-26] MEDS ORDERED: HydrALAZINE HCL 20 MG/ML VIAL IV. PRN (18:30)
[2018-03-26] MEDS ORDERED: ACETAMINOPHEN IV 650 MG in EMPTY BAG 0 ML IV PRN (18:30)
[2018-03-26] MEDS ORDERED: INSULIN HUMAN NPH SC ONE (18:45)
[2018-03-26] MEDS: INSULIN ASPART 100 UNITS/ML 3 ML PEN SC SCH ×2 (18:51→21:38)
[2018-03-26] MEDS ORDERED: LORAZEPAM INJ 0.5 MG in SYRINGE 0.25 ML IV PRN (19:00)
[2018-03-26] MEDS ORDERED: MAGNESIUM SULFATE 1GM / D5W 100 ML IV ONE (19:00)
--- NOTE | 2018-03-26 20:52 | Pharmacy Progress Note ---
Glycemic Control Intl Consult Date of Service March 26, 2018. Scope Glycemic Pharmacist consulted by Roman Bundy PA-C on 03/26/18 for glycemic control and to write orders per [facility] inpatient glycemic control protocol Objective Weight (Kilograms): 72.400 Accuchecks BSG (last 24hrs): Test 03/26/18 12:45 03/26/18 14:24 03/26/18 15:31 03/26/18 17:39 Random Glucose 332 mg/dl (70-99) Bedside Glucose 306 mg/dl (70-90) 203 mg/dl (70-90) 233 mg/dl (70-90) Test 03/26/18 20:33 Bedside Glucose 250 mg/dl (70-90) Laboratory Data (last 24hrs) Test 03/26/18 12:45 Anion Gap 9.0 mmol/L BUN/Creatinine Ratio 18.9 Blood Urea Nitrogen 27 mg/dl Creatinine 1.42 mg/dl Potassium Level 3.9 mmol/L Sodium Level 134 mmol/L White Blood Count 14.37 K/uL Red Blood Count 4.69 M/uL Hemoglobin 14.6 g/dL Hematocrit 40.0 % Mean Corpuscular Volume 85.3 fL Mean Corpuscular Hemoglobin 31.1 pg Mean Corpuscular Hemoglobin Concent 36.5 g/dl Platelet Count 201 K/uL Mean Platelet Volume 9.4 fL Neutrophils (%) (Auto) 64.5 % Lymphocytes (%) (Auto) 22.3 % Monocytes (%) (Auto) 6.2 % Eosinophils (%) (Auto) 6.3 % Basophils (%) (Auto) 0.4 % Neutrophils # (Auto) 9.26 K/uL Lymphocytes # (Auto) 3.21 K/uL Monocytes # (Auto) 0.89 K/uL Eosinophils # (Auto) 0.90 K/uL Basophils # (Auto) 0.06 K/uL HbA1c 10.3% on 12/19/17 Recent Pertinent Medications Outpatient Anti-diabetic Regimen: * Novolin 70/30 pre-mixed insulin 85 units SQ BIDM * Regular insulin 24 units SQ BIDM * Total daily dose = 218 units Assessment & Plan ASSESSMENT: * 77yo T2DM female with poor outpatient control per recent A1c * Outpatient regimen is premixed basal/prandial insulin of Novolin 70/30 mix insulin. * Pre-mixed insulin is difficult to titrate since it is already in a fixed distribution of basal:prandial insulin. Continuing pre-mixed insulin for admission typically lead to hypoglycemia d/t changing PO status but rapid acting insulin is unable to be held. * Will change to individual components of basal + prandial for inpatient use * Pt known to pharmacy from previous admissions/glycemic consults * Pt typically requires~ 150 units insulin per day with near-adequate control * Unsure if patient took her insulin this morning, but based on degree of hyperglycemia now, am assuming that she did not * Pt admitted with back pain - very poor appetite per nursing. Pt ordered clear liquid diet * Will start regimen per previous admissions and titrate based on BSG trends PLAN FOR INPATIENT GLYCEMIC CONTROL: start SQ basal bolus insulin regimen (NPH + NovoLog) based on estimated total daily dose ~ 150 units/day while on clears. Extra "loading dose" this evening for severe hyperglycemia * Basal insulin * NPH 50 units SQ x 1 dose tonight, then, * NPH 40 units SQ BIDM * Bolus insulin * NovoLog per scale ACHS or Q6hrs while NPO * Goal Range: Low 120 mg/dL - High 160 mg/dL * Correction Factor: 10 mg/dL/unit * Nutritional / Prandial insulin per carb ratio of 1 unit per 4 grams CHO consumed * Please note that the plan above was derived based on current level of insulin resistance and hospital stress. These recommendations are appropriate for inpatient admission only. Plan of care upon discharge will need to be reassessed to avoid potential outpatient hypo/hyperglycemia. Thank you.
[2018-03-26] MEDS ORDERED: RANITIDINE HCL 150 MG TAB PO SCH (21:00)
[2018-03-26] MEDS ORDERED: TRAZODONE HCL 50 MG TAB PO SCH (21:00)
[2018-03-26] MEDS ORDERED: MIRTAZAPINE TAB 15 MG TAB PO SCH (21:00)
[2018-03-26 21:23] VITALS: BP 151/78; PULSE 75
[2018-03-26] MEDS: ROPINIROLE HCL 1 MG TAB PO SCH (21:26)
[2018-03-26] MEDS: GABAPENTIN 400 MG CAP PO SCH (21:26)
[2018-03-26] MEDS: MIRTAZAPINE TAB 15 MG TAB PO SCH (21:27)
[2018-03-26] MEDS: METOPROLOL TARTRATE 50 MG TAB PO SCH (21:28)
[2018-03-26] MEDS: RANITIDINE HCL 150 MG TAB PO SCH (21:28)
[2018-03-26] MEDS: PANCREAZE (LIPASE 4,200U) CAP PO SCH (21:29)
[2018-03-26] MEDS: HEPARIN SOD 5000 UNIT/0.5 ML CARP SQ SCH (21:39)
[2018-03-26 22:22] LABS: CALCIUM 8.4 mg/dl (8.5-10.1); CREATININE 1.33 mg/dl (0.60-1.20); POTASSIUM 4.2 mmol/L (3.5-5.1)
[2018-03-26 22:48] VITALS: BP 125/69; PULSE 76; TEMP 36.5; O2SAT 97
[2018-03-27] MEDS: ACETAMINOPHEN 325 MG TAB PO PRN ×2 (00:12→08:18)
[2018-03-27] MEDS: SODIUM CHLORIDE 0.9% 1000ML 1,000 ML IV SCH (02:39)
[2018-03-27] MEDS: INSULIN ASPART 100 UNITS/ML 3 ML PEN SC SCH ×6 (04:00→20:35)
[2018-03-27] MEDS: HEPARIN SOD 5000 UNIT/0.5 ML CARP SQ SCH ×3 (05:42→20:33)
[2018-03-27 06:03] LABS: BASO % 0.6 %; BASO ABS # 0.07 K/uL (0-0.2); EOS % 4.4 %; EOS ABS # 0.52 K/uL (0-0.5); HEMATOCRIT 36.7 % (37-47); HEMOGLOBIN 12.9 g/dL (12.0-16.0); IG# 0.04 K/uL (0.00-0.02); LYMPH % 33.5 %; LYMPH ABS # 3.98 K/uL (1.2-3.4); MEAN CELL VOLUME 87.2 fL (80-100); MEAN CORPUSCULAR HEMOGLOBIN 30.6 pg (25-34); MEAN CORPUSCULAR HGB CONC 35.1 g/dl (32-36); MEAN PLATELET VOLUME 9.2 fL (7.4-10.4); MONO % 8.6 %; MONO ABS # 1.02 K/uL (0.11-0.59); NEUT % 52.6 %; NEUT ABS # 6.25 K/uL (1.4-6.5); PLATELET COUNT 207 K/uL (130-400); RED CELL DISTRIBUTION WIDTH CV 13.8 % (11.5-14.5); RED CELL DISTRIBUTION WIDTH SD 43.6 fL (36.4-46.3); WHITE BLOOD COUNT 11.88 K/uL (4.8-10.8)
[2018-03-27 06:41] LABS: ALBUMIN 2.9 gm/dl (3.4-5.0); ALT/SGPT 28 U/L (12-78); AST/SGOT 29 U/L (15-37); BLOOD UREA NITROGEN 22 mg/dl (7-18); CALCIUM 8.4 mg/dl (8.5-10.1); CARBON DIOXIDE 24 mmol/L (21-32); CREATININE 1.26 mg/dl (0.60-1.20); GLUCOSE 78 mg/dl (70-99); LIPASE 304 U/L (73-393); POTASSIUM 3.6 mmol/L (3.5-5.1); SODIUM 138 mmol/L (136-145)
[2018-03-27 06:43] LABS: ALKALINE PHOSPHATASE 94 U/L (45-117); TOTAL PROTEIN 6.8 gm/dl (6.4-8.2)
[2018-03-27 07:39] VITALS: BP 136/73; PULSE 63; TEMP 36.5; O2SAT 97
[2018-03-27] MEDS: PANCREAZE (LIPASE 4,200U) CAP PO SCH ×4 (08:08→20:30)
[2018-03-27] MEDS: FLUTICASONE PROPIONATE NA SPR 16 GM BTL NAE SCH (08:08)
[2018-03-27] MEDS: ASPIRIN 81 MG ECTAB PO SCH (08:09)
[2018-03-27] MEDS: PANTOprazole SOD 40 MG TAB PO SCH (08:09)
[2018-03-27] MEDS: METOPROLOL TARTRATE 50 MG TAB PO SCH ×2 (08:10→20:31)
[2018-03-27] MEDS: RANITIDINE HCL 150 MG TAB PO SCH ×2 (08:10→20:30)
[2018-03-27] MEDS: GABAPENTIN 400 MG CAP PO SCH ×2 (08:10→20:31)
[2018-03-27] MEDS: AMLODIPINE BESYLATE 5 MG TAB PO SCH (08:11)
[2018-03-27] MEDS: MAGNESIUM OXIDE 400 MG TAB PO SCH (08:12)
[2018-03-27] MEDS: INSULIN HUMAN NPH SC SCH ×2 (08:23→17:01)
[2018-03-27] MEDS ORDERED: LOSARTAN POTASSIUM 50 MG TAB PO SCH (09:00)
[2018-03-27] MEDS ORDERED: ATORVASTATIN 10 MG TAB PO SCH (09:00)
[2018-03-27] MEDS ORDERED: ESCITALOPRAM OXALATE 10 MG TAB PO SCH (09:00)
[2018-03-27] MEDS ORDERED: CHLORTHALIDONE 25 MG TAB PO SCH (09:00)
[2018-03-27] MEDS: ONDANSETRON INJ 2 MG/ML 2 ML VIAL IV PRN (09:20)
--- NOTE | 2018-03-27 13:04 | GASTROINTESTINAL CONSULTATION ---
DATE OF CONSULTATION: 03/27/2018 REQUESTING PROVIDER: Saul Conrad M.D. HISTORY OF PRESENT ILLNESS: The patient is a 77-year-old white female with multiple medical problems who presented to the Emergency Room with abdominal discomfort and left-sided weakness. The patient reports that she had been doing well up until when she had a meal at a friend's house. She notes having some discomfort that night and then had difficulty on Thursday with left arm movement. She reported to the Emergency Room yesterday afternoon for further evaluation. The patient notes that her discomfort is localized to the left abdominal region. It is not associated with nausea or vomiting today. She did have a slight elevation of her lipase upon admission, which has since normalized. The patient does have a history of chronic pancreatitis and had an ERCP performed three months ago. That ERCP was notable for a sphincterotomy of the minor duct and placement of a pancreatic stent. The patient is due for followup procedure in the next four to eight weeks. The patient does note that she had significant improvement of her baseline symptoms after stent placement. PAST MEDICAL HISTORY: 1. Anxiety. 2. Hypertension. 3. CVA. 4. Chronic renal insufficiency. 5. COPD. 6. Chronic pancreatitis. 7. Depression. 8. Neuropathy. 9. Hypercholesterolemia. 10. Fatty infiltration of the liver. 11. Pancreatic divisum. 12. Obstructive sleep apnea. PAST SURGICAL HISTORY: Cataract surgery, cholecystectomy. FAMILY HISTORY: Parkinson's disease, hypertension and CVA. SOCIAL HISTORY: The patient is a prior smoker. Denies alcohol consumption or drug abuse. OUTPATIENT ALLERGIES: IODINE, SULFA, ROSUVASTATIN, CODEINE, HYDROXYZINE, LATEX, DIPHENHYDRAMINE, LORATADINE, SULFAMETHOXAZOLE, PREDNISONE, TETANUS, ALPRAZOLAM, METFORMIN, SIMVASTATIN. OUTPATIENT MEDICATIONS: 1. Norvasc 10 mg daily. 2. Aspirin 81 mg daily. 3. Lipitor 10 mg at bedtime. 4. Lexapro 15 mg daily. 5. Gabapentin 400 mg twice daily. 6. Insulin. 7. Losartan 100 mg daily. 8. Magnesium oxide. 9. Metoprolol 50 mg twice daily. 10. Remeron 30 mg daily. 11. Creon q.i.d. 12. Protonix 40 mg daily. 13. Zantac 75 mg twice daily as needed. 14. Requip 1 mg at bedtime. 15. Trazodone 50 mg at bedtime. REVIEW OF SYSTEMS: GENERAL: No fevers, no chills today. CARDIAC: No chest pain. PULMONARY: The patient without any shortness of breath beyond baseline. NEUROLOGIC: The patient with left-sided weakness today. MUSCULOSKELETAL: No joint pains. No new muscle pains. DERMATOLOGIC: No rashes. ENDOCRINE: No polyuria. No polydipsia. PSYCHIATRIC: The patient with history of depression, no suicidal ideation. PHYSICAL EXAMINATION: VITAL SIGNS: Temperature 36.5, pulse 63, respiratory rate 18, blood pressure is 136/73, pulse ox is 97% on room air. HEENT: No scleral icterus noted. NECK: No JVD noted. LUNGS: Delayed expiratory phase noted with faint wheezes on expiration. CARDIAC: Regular rate and rhythm. ABDOMEN: Soft. No tenderness noted today. EXTREMITIES: No edema noted today. DERMATOLOGY: No spider nevi noted. NEUROLOGIC: No obvious weakness noted. No asterixis noted. LABORATORIES: White blood cell count 11.8, hemoglobin is 12.9, hematocrit is 36.7, platelet count is 207. Sodium is 136, potassium is 3.6, chloride is 109, BUN is 22, creatinine is 1.2, calcium 8.4, magnesium is 2.2, AST 29, ALT 28, alkaline phosphatase 94, albumin is 2.9, lipase is 304. IMAGING STUDIES: CT dated 03/26/2018, pancreatic stent seen in place without evidence of pancreatic duct dilation or pancreatic inflammation. IMPRESSION: A 77-year-old female with a history of chronic pancreatitis related to pancreatic divisum. The patient did present with worsening discomfort, but does not have any obvious signs of acute pancreatitis on CT today. I suspect that many of the patient's symptoms are chronic in nature and we are happy to provide a pancreatic stent change in the near future. This can be done during the hospital admission, but would likely be delayed a few days until her neurologic status has been determined. Otherwise, the pancreatic stent change can be done as an outpatient in the next four to six weeks. RECOMMENDATIONS: 1. Advance diet as tolerated. 2. Consider use of Bentyl 10 mg t.i.d. 3. Please call with any questions or concerns.
--- NOTE | 2018-03-27 15:45 | Progress Note ---
Medicine Progress Note Date & Time of Visit: March 27, 2018 at 15:37. Subjective seen resting in bed, comfortable states she feels very tired/weak today did not sleep well last night abdominal pain improving denies nausea no diarrhea no fever /chills denies other symptoms Objective Last 8 Hrs Date Time Temp Pulse Resp B/P (MAP) Pulse Ox O2 Delivery O2 Flow Rate FiO2 03/27/18 08:00 Room Air 03/27/18 07:39 36.5 63 18 136/73 (94) 97 Physical Exam: General- oriented x 3, not in distress, Head- atraumatic Eyes- PERRL, EOMI, anicteric ENT- oropharynx clear Neck- supple, no JVD, no adenopathy, no thyromegaly Lungs- clear to auscultation bilaterally Heart- regular rhythm; no murmur, normal rate Abdomen- normal bowel sounds, soft, mild epigastric tenderness Extremities- no pretibial edema, no calf tenderness; peripheral pulses intact Neuro- alert, oriented x 3; not in distress Skin- warm & dry Laboratory Results: Last 24 Hours Test 03/26/18 17:39 03/26/18 18:15 03/26/18 20:33 03/26/18 21:56 Bedside Glucose 233 mg/dl 250 mg/dl Prothrombin Time 10.5 SECONDS Prothromb Time International Ratio 1.0 Sodium Level 136 mmol/L Potassium Level 4.2 mmol/L Chloride Level 107 mmol/L Carbon Dioxide Level 23 mmol/L Anion Gap 6.0 mmol/L Blood Urea Nitrogen 24 mg/dl Creatinine 1.33 mg/dl Est Creatinine Clear Calc Drug Dose 31.5 ml/min Estimated GFR () 44.6 Estimated GFR (Non- 38.5 BUN/Creatinine Ratio 18.3 Random Glucose 201 mg/dl Calcium Level 8.4 mg/dl Magnesium Level 2.2 mg/dl Beta-Hydroxybutyric Acid 2.53 mg/dL Test 03/27/18 00:05 03/27/18 03:46 03/27/18 04:30 03/27/18 05:44 Bedside Glucose 129 mg/dl 77 mg/dl Urine Color YELLOW Urine Appearance CLOUDY Urine pH 5.0 Urine Specific [place] 1.018 Urine Protein NEG Urine Glucose (UA) 1+ Urine Ketones NEG Urine Occult Blood NEG Urine Nitrite NEG Urine Bilirubin NEG Urine Urobilinogen NEG Urine Leukocyte Esterase MODERATE Urine WBC (Auto) 10-30 /hpf Urine RBC (Auto) 0-4 /hpf Urine Hyaline Casts (Auto) 1-5 /lpf Urine Epithelial Cells (Auto) >30 /lpf Urine Bacteria (Auto) NEG White Blood Count 11.88 K/uL Red Blood Count 4.21 M/uL Hemoglobin 12.9 g/dL Hematocrit 36.7 % Mean Corpuscular Volume 87.2 fL Mean Corpuscular Hemoglobin 30.6 pg Mean Corpuscular Hemoglobin Concent 35.1 g/dl Platelet Count 207 K/uL Mean Platelet Volume 9.2 fL Neutrophils (%) (Auto) 52.6 % Lymphocytes (%) (Auto) 33.5 % Monocytes (%) (Auto) 8.6 % Eosinophils (%) (Auto) 4.4 % Basophils (%) (Auto) 0.6 % Neutrophils # (Auto) 6.25 K/uL Lymphocytes # (Auto) 3.98 K/uL Monocytes # (Auto) 1.02 K/uL Eosinophils # (Auto) 0.52 K/uL Basophils # (Auto) 0.07 K/uL RDW Standard Deviation 43.6 fL RDW Coefficient of Variation 13.8 % Immature Granulocyte % (Auto) 0.3 % Immature Granulocyte # (Auto) 0.04 K/uL Sodium Level 138 mmol/L Potassium Level 3.6 mmol/L Chloride Level 109 mmol/L Carbon Dioxide Level 24 mmol/L Anion Gap 5.0 mmol/L Blood Urea Nitrogen 22 mg/dl Creatinine 1.26 mg/dl Est Creatinine Clear Calc Drug Dose 33.2 ml/min Estimated GFR () 47.6 Estimated GFR (Non- 41.1 BUN/Creatinine Ratio 17.6 Random Glucose 78 mg/dl Calcium Level 8.4 mg/dl Magnesium Level 2.2 mg/dl Total Bilirubin 0.3 mg/dl Direct Bilirubin < 0.1 mg/dl Aspartate Amino Transf (AST/SGOT) 29 U/L Alanine Aminotransferase (ALT/SGPT) 28 U/L Alkaline Phosphatase 94 U/L Total Protein 6.8 gm/dl Albumin 2.9 gm/dl Globulin 3.9 gm/dl Albumin/Globulin Ratio 0.7 Lipase 304 U/L Test 03/27/18 07:33 03/27/18 11:41 Bedside Glucose 81 mg/dl 186 mg/dl Date/Time Source Procedure Growth Status 03/27/18 04:30 Urine , Random Urine Culture Pending Received Assessment & Plan Pt is 77 y/o F with PMH asthma, COPD, anxiety, HTN, HLD, DM II, chronic pancreatitis, h/o pancreatic cyst and others listed below who presented to ER with complaint of abdominal pain x 1 day. CHRONIC PANCREATITIS/ ACUTE ON CHRONIC ABDOMINAL PAIN History of EUS with FNA and ERCP with pancreatic stent placed by Dr. Mcfadden in . Patient with increased abdominal pain, nausea today. In ER today WBC: 14, lipase 737. Patient afebrile. CT ABD/pelvis:Pancreatic duct stent in place. No pancreatic ductal dilatation. No evidence of acute pancreatitis at this time. Findings consistent with chronic pancreatitis. Patient given Dilaudid, Zofran, NSS at 125 mL/HR -- pain improved today Lipase normal -- diet advanced PRN analgesics PRN Bentyl -- evaluated by GI possible Stent Placement contemplated POORLY CONTROLLED DM II Glucose 330 to ER. Beta hydroxybutyric acid 5.9. No anion gap. HA1c 9.3 on 01/26/18. Patient reports BSG at home 300-400's consistently. In ER given 10 units of insulin or IV and glucose down to 200. -Patient with history difficult to control BSG in past hospitalizations with hypoglycemic episodes -NovoLog sliding scale as per protocol, decrease patient's home NPH secondary to n.p.o. at this time -Glycemic pharmacist consulted CKD III Cr: 1.4 (baseline~1.3) -- resolved PSEUDOHYPONATREMIA Na: 138 corrected for glucose of 332. HTN Initially hypertensive and then stable after pain control. -Continue metoprolol, amlodipine, - resume Losartan and HCTZ ASTHMA/COPD No shortness of breath or chest pain or wheezing. -Continue home inhalers and neb treatment as needed HX CVA -Continue ASA, Plavix -Hold statin ANXIETY -Continue Lorazepam as needed -Continue Lexapro PERIPHERAL NEUROPATHY -Continue gabapentin RLS/INSOMNIA -Continue trazodone and mirtazapine, ropinirole DVT Prophylaxis -heparin SQ Disposition pending anticipate d/c home when medically stable and cleared by GI Current Inpatient Medications: Current Inpatient Medications Medications (Trade) Dose Ordered Sig/Rosetta Route Start Time Stop Time Status Last Admin Dose Admin Heparin Sodium (Porcine) (Heparin Sq 5000 Unit/0.5ml) 5,000 unit Q8H SQ 03/26/18 22:00 04/25/18 21:59 03/27/18 14:44 5,000 UNIT Acetaminophen (Tylenol Tab) 650 mg Q4H PRN PO 03/26/18 15:45 04/25/18 15:44 03/27/18 08:18 650 MG Al Hydrox/Mg Hydrox/Simethicone (Maalox Max Susp) 15 ml Q4H PRN PO 03/26/18 15:45 04/25/18 15:44 Polyethylene (Miralax Powder Packet) 17 gm DAILY PRN PO 03/26/18 15:45 04/25/18 15:44 Ondansetron HCl (Zofran Inj) 4 mg Q6H PRN IV 03/26/18 15:45 04/25/18 15:44 03/27/18 09:20 4 MG Insulin Aspart (novoLOG ASPART) SLIDING SCALE If C... ACHS SC 03/26/18 18:45 04/25/18 18:44 03/27/18 12:13 18 UNITS Glucose (Glucose 40% Gel) 15-30 GRAMS 15 GRAMS... UD PRN PO 03/26/18 16:00 04/25/18 15:59 Glucose (Glucose Chew Tab) 4-8 Tablets 4 Tabl... UD PRN PO 03/26/18 16:00 04/25/18 15:59 Dextrose (Dextrose 50% 50ML Syringe) 25-50ML 25ML FOR ... UD PRN IV 03/26/18 16:00 04/25/18 15:59 Glucagon (Glucagon Inj) 1 mg UD PRN SQ 03/26/18 16:00 04/25/18 15:59 Carbohydrates (Carbohydrates For Hypoglycemia) 15-30 GRAMS 15 grams if BSG 54-69... UD PRN PO 03/26/18 16:00 04/25/18 15:59 Miscellaneous Information (Consult Glycemic Management Pharmacy) 1 ea UD PRN N/A 03/26/18 17:10 04/25/18 17:09 Albuterol (Ventolin Hfa Inhaler) 2 puffs Q4 PRN INH 03/26/18 16:15 04/25/18 16:14 Amlodipine Besylate (Norvasc Tab) 10 mg DAILY PO 03/27/18 09:00 04/26/18 08:59 03/27/18 08:11 10 MG Aspirin (Ecotrin Tab) 81 mg DAILY PO 03/27/18 09:00 04/26/18 08:59 03/27/18 08:09 81 MG Dicyclomine HCl (Bentyl Cap) 10 mg TID PRN PO 03/26/18 16:15 04/25/18 16:14 Docusate Sodium (coLACE CAP) 100 mg BID PRN PO 03/26/18 16:15 04/25/18 16:14 Escitalopram Oxalate (Lexapro Tab) 15 mg DAILY PO 03/27/18 09:00 04/26/18 08:59 Future Hold Fluticasone Propionate (Flonase Nasal [place]) 2 sprays DAILY JOSE MANUEL 03/27/18 09:00 04/26/18 08:59 03/27/18 08:08 2 SPRAYS Gabapentin (Neurontin Cap) 400 mg BID PO 03/26/18 21:00 04/25/18 20:59 03/27/18 08:10 400 MG Albuterol/ Ipratropium (Duoneb) 3 ml QID PRN INH 03/26/18 16:15 04/25/18 16:14 Lorazepam (Ativan Tab) 0.5 mg Q6H PRN PO 03/26/18 16:15 04/25/18 16:14 Future Hold Magnesium Oxide (Mag-Ox Tab) 400 mg QAM PO 03/27/18 09:00 04/26/18 08:59 03/27/18 08:12 400 MG Metoprolol Tartrate (Lopressor Tab) 50 mg BID PO 03/26/18 21:00 04/25/18 20:59 03/27/18 08:10 50 MG Pantoprazole Sodium (Protonix Tab) 40 mg DAILY PO 03/27/18 09:00 04/26/18 08:59 03/27/18 08:09 40 MG Ropinirole HCl (Requip Tab) 1 mg HS PO 03/26/18 21:00 04/25/18 20:59 03/26/18 21:26 1 MG Amylase/Lipase/ Protease (Pancreaze (Lipase 4,200U) Cap) 1 cap QID PO 03/26/18 21:00 04/25/18 20:59 03/27/18 14:37 1 CAP Trazodone HCl (Desyrel Tab) 50 mg HS PO 03/26/18 21:00 04/25/18 20:59 Future Hold Ranitidine HCl (zANTac TAB) 75 mg BID PO 03/26/18 21:00 04/25/18 20:59 03/27/18 08:10 75 MG Heparin Sodium (Porcine) (Heparin 100 Unit/ml 5ml Flush) 5 ml PRN PRN IV 03/26/18 18:15 04/25/18 18:14 Acetaminophen 650 mg/Empty Bag 65 ml @ 260 mls/hr Q6H PRN IV 03/26/18 18:30 04/25/18 18:29 Hydralazine HCl (HydrALAZINE INJ) 10 mg Q8 PRN IV. 03/26/18 18:30 04/25/18 18:29 Insulin Human NPH (novoLIN-N NPH) 40 units BIDM SC 03/27/18 08:00 04/26/18 07:59 03/27/18 08:23 40 UNITS Lorazepam 0.5 mg/ Syringe 0.5 ml @ 0.5 mls/min Q8 PRN IV 03/26/18 19:00 04/25/18 18:59 Mirtazapine (Remeron Tab) 30 mg HS PO 03/26/18 21:00 04/25/18 20:59 03/26/18 21:27 30 MG
[2018-03-27 15:49] VITALS: BP 130/76; PULSE 63; TEMP 36.5; O2SAT 97
[2018-03-27] MEDS: ROPINIROLE HCL 1 MG TAB PO SCH (20:30)
[2018-03-27] MEDS: MIRTAZAPINE TAB 15 MG TAB PO SCH (20:31)
[2018-03-27 20:36] VITALS: BP 117/65; PULSE 70
[2018-03-27 23:46] VITALS: BP 132/73; PULSE 69; TEMP 36.6; O2SAT 96
[2018-03-28] MEDS: HEPARIN SOD 5000 UNIT/0.5 ML CARP SQ SCH ×3 (05:34→21:13)
[2018-03-28 07:21] VITALS: BP 146/73; PULSE 64; TEMP 36.5; O2SAT 94
[2018-03-28] MEDS: PANCREAZE (LIPASE 4,200U) CAP PO SCH ×4 (08:13→21:07)
[2018-03-28] MEDS: RANITIDINE HCL 150 MG TAB PO SCH ×2 (08:14→21:06)
[2018-03-28] MEDS: PANTOprazole SOD 40 MG TAB PO SCH (08:14)
[2018-03-28] MEDS: GABAPENTIN 400 MG CAP PO SCH ×2 (08:15→21:08)
[2018-03-28] MEDS: METOPROLOL TARTRATE 50 MG TAB PO SCH ×2 (08:15→21:08)
[2018-03-28] MEDS: AMLODIPINE BESYLATE 5 MG TAB PO SCH (08:16)
[2018-03-28] MEDS: ASPIRIN 81 MG ECTAB PO SCH (08:16)
[2018-03-28] MEDS: MAGNESIUM OXIDE 400 MG TAB PO SCH (08:17)
[2018-03-28] MEDS: FLUTICASONE PROPIONATE NA SPR 16 GM BTL NAE SCH (08:17)
[2018-03-28] MEDS: INSULIN ASPART 100 UNITS/ML 3 ML PEN SC SCH ×4 (08:24→21:12)
[2018-03-28] MEDS: INSULIN HUMAN NPH SC SCH ×2 (08:25→17:41)
[2018-03-28 09:19] LABS: CALCIUM 8.4 mg/dl (8.5-10.1); CREATININE 1.36 mg/dl (0.60-1.20); POTASSIUM 4.4 mmol/L (3.5-5.1)
[2018-03-28] MEDS: ACETAMINOPHEN 325 MG TAB PO PRN ×2 (09:51→21:52)
--- NOTE | 2018-03-28 10:17 | Gastroenterology Progress Note ---
Progress Note Date of Service: March 28, 2018 Subjective Pt evaluation today including: conversation w/ patient, physical exam Patient notes having epigastric pain and bloating still. Her last bowel movement was several days ago. Review of Systems Respiratory: No cough, No wheezing Cardiac: + orthopnea, No chest pain, No PND, No palpitations Abdomen: No nausea, No vomiting, No GI bleeding, No jaundice Medications Current Inpatient Medications Medications (Trade) Dose Ordered Sig/[place] Route Start Time Stop Time Status Last Admin Dose Admin Heparin Sodium (Porcine) (Heparin Sq 5000 Unit/0.5ml) 5,000 unit Q8H SQ 03/26/18 22:00 04/25/18 21:59 03/28/18 05:34 5,000 UNIT Acetaminophen (Tylenol Tab) 650 mg Q4H PRN PO 03/26/18 15:45 04/25/18 15:44 03/28/18 09:51 650 MG Al Hydrox/Mg Hydrox/Simethicone (Maalox Max Susp) 15 ml Q4H PRN PO 03/26/18 15:45 04/25/18 15:44 Polyethylene (Miralax Powder Packet) 17 gm DAILY PRN PO 03/26/18 15:45 04/25/18 15:44 Ondansetron HCl (Zofran Inj) 4 mg Q6H PRN IV 03/26/18 15:45 04/25/18 15:44 03/27/18 09:20 4 MG Insulin Aspart (novoLOG ASPART) SLIDING SCALE If C... ACHS SC 03/26/18 18:45 04/25/18 18:44 03/28/18 08:24 12 UNITS Glucose (Glucose 40% Gel) 15-30 GRAMS 15 GRAMS... UD PRN PO 03/26/18 16:00 04/25/18 15:59 Glucose (Glucose Chew Tab) 4-8 Tablets 4 Tabl... UD PRN PO 03/26/18 16:00 04/25/18 15:59 Dextrose (Dextrose 50% 50ML Syringe) 25-50ML 25ML FOR ... UD PRN IV 03/26/18 16:00 04/25/18 15:59 Glucagon (Glucagon Inj) 1 mg UD PRN SQ 03/26/18 16:00 04/25/18 15:59 Carbohydrates (Carbohydrates For Hypoglycemia) 15-30 GRAMS 15 grams if BSG 54-69... UD PRN PO 03/26/18 16:00 04/25/18 15:59 Miscellaneous Information (Consult Glycemic Management Pharmacy) 1 ea UD PRN N/A 03/26/18 17:10 04/25/18 17:09 Albuterol (Ventolin Hfa Inhaler) 2 puffs Q4 PRN INH 03/26/18 16:15 04/25/18 16:14 Amlodipine Besylate (Norvasc Tab) 10 mg DAILY PO 03/27/18 09:00 04/26/18 08:59 03/28/18 08:16 10 MG Aspirin (Ecotrin Tab) 81 mg DAILY PO 03/27/18 09:00 04/26/18 08:59 03/28/18 08:16 81 MG Dicyclomine HCl (Bentyl Cap) 10 mg TID PRN PO 03/26/18 16:15 04/25/18 16:14 03/28/18 08:15 10 MG Docusate Sodium (coLACE CAP) 100 mg BID PRN PO 03/26/18 16:15 04/25/18 16:14 Escitalopram Oxalate (Lexapro Tab) 15 mg DAILY PO 03/27/18 09:00 04/26/18 08:59 Future Hold Fluticasone Propionate (Flonase Nasal [place]) 2 sprays DAILY JOSE MANUEL 03/27/18 09:00 04/26/18 08:59 03/28/18 08:17 2 SPRAYS Gabapentin (Neurontin Cap) 400 mg BID PO 03/26/18 21:00 04/25/18 20:59 03/28/18 08:15 400 MG Albuterol/ Ipratropium (Duoneb) 3 ml QID PRN INH 03/26/18 16:15 04/25/18 16:14 Lorazepam (Ativan Tab) 0.5 mg Q6H PRN PO 03/26/18 16:15 04/25/18 16:14 Future Hold Magnesium Oxide (Mag-Ox Tab) 400 mg QAM PO 03/27/18 09:00 04/26/18 08:59 03/28/18 08:17 400 MG Metoprolol Tartrate (Lopressor Tab) 50 mg BID PO 03/26/18 21:00 04/25/18 20:59 03/28/18 08:15 50 MG Pantoprazole Sodium (Protonix Tab) 40 mg DAILY PO 03/27/18 09:00 04/26/18 08:59 03/28/18 08:14 40 MG Ropinirole HCl (Requip Tab) 1 mg HS PO 03/26/18 21:00 04/25/18 20:59 03/27/18 20:30 1 MG Amylase/Lipase/ Protease (Pancreaze (Lipase 4,200U) Cap) 1 cap QID PO 03/26/18 21:00 04/25/18 20:59 03/28/18 08:13 1 CAP Trazodone HCl (Desyrel Tab) 50 mg HS PO 03/26/18 21:00 04/25/18 20:59 Future Hold Ranitidine HCl (zANTac TAB) 75 mg BID PO 03/26/18 21:00 04/25/18 20:59 03/28/18 08:14 75 MG Heparin Sodium (Porcine) (Heparin 100 Unit/ml 5ml Flush) 5 ml PRN PRN IV 03/26/18 18:15 04/25/18 18:14 03/28/18 08:37 5 ML Acetaminophen 650 mg/Empty Bag 65 ml @ 260 mls/hr Q6H PRN IV 03/26/18 18:30 04/25/18 18:29 Hydralazine HCl (HydrALAZINE INJ) 10 mg Q8 PRN IV. 03/26/18 18:30 04/25/18 18:29 Insulin Human NPH (novoLIN-N NPH) 40 units BIDM SC 03/27/18 08:00 04/26/18 07:59 03/28/18 08:25 40 UNITS Lorazepam 0.5 mg/ Syringe 0.5 ml @ 0.5 mls/min Q8 PRN IV 03/26/18 19:00 04/25/18 18:59 Mirtazapine (Remeron Tab) 30 mg HS PO 03/26/18 21:00 04/25/18 20:59 03/27/18 20:31 30 MG Objective Vital Signs Date Time Temp Pulse Resp B/P (MAP) Pulse Ox O2 Delivery O2 Flow Rate FiO2 03/28/18 08:00 Room Air 03/28/18 07:21 36.5 64 18 146/73 (97) 94 Room Air 03/28/18 00:00 Room Air 03/27/18 23:46 36.6 69 18 132/73 (92) 96 Room Air 03/27/18 20:36 70 117/65 (82) 03/27/18 20:00 Room Air 03/27/18 16:00 Room Air 03/27/18 15:49 36.5 63 18 130/76 (94) 97 Physical Exam General Appearance: no apparent distress Eyes: PERRL Neck: no JVD Respiratory/Chest: + decreased breath sounds Cardiovascular: no JVD, + systolic murmur Abdomen: soft, + tenderness (Mild nonfocal tenderness) Neurologic/Psych: oriented x 3 Skin: no jaundice Laboratory Results Last 24 Hours Test 03/27/18 11:41 03/27/18 16:49 03/27/18 20:32 03/28/18 07:47 Bedside Glucose 186 mg/dl 147 mg/dl 157 mg/dl 193 mg/dl Test 03/28/18 08:36 Sodium Level 138 mmol/L Potassium Level 4.4 mmol/L Chloride Level 106 mmol/L Carbon Dioxide Level 24 mmol/L Anion Gap 8.0 mmol/L Blood Urea Nitrogen 21 mg/dl Creatinine 1.36 mg/dl Est Creatinine Clear Calc Drug Dose 30.8 ml/min Estimated GFR () 43.4 Estimated GFR (Non- 37.4 BUN/Creatinine Ratio 15.2 Random Glucose 276 mg/dl Calcium Level 8.4 mg/dl Lipase 510 U/L Assessment and Plan Patient with a history of chronic pancreatitis and persistent abdominal discomfort. Given the constipation I would suggest MiraLAX twice daily. If the patient is not able to be advanced with diet today we would then try to make arrangements to replace her pancreatic stent during this hospital stay ( perhaps Thursday or Thu)
--- NOTE | 2018-03-28 11:03 | Pharmacy Progress Note ---
Glycemic Control Progress Note Date of Service March 28, 2018. Scope Glycemic Pharmacist consulted for glycemic control to write orders per [facility] inpatient glycemic control protocol. Objective Accuchecks BSG (last 24hrs): Test 03/27/18 11:41 03/27/18 16:49 03/27/18 20:32 03/28/18 07:47 Bedside Glucose 186 mg/dl (70-90) 147 mg/dl (70-90) 157 mg/dl (70-90) 193 mg/dl (70-90) Test 03/28/18 08:36 Random Glucose 276 mg/dl (70-99) Recent Pertinent Medications The patient is currently receiving: * Basal insulin: NPH 40 units BID with meals * Correctional Insulin: Novolog Correction per scale ACHS Goal Range: Low 120 mg/dL - High 160 mg/dL Correction Factor: 10 mg/dL/unit * Prandial insulin: Per carb ratio of 1 unit per 4 grams CHO consumed Outpatient Anti-Diabetic Meds Novolin 70/30 85 units BID Regular insulin 24 units SQ BID with meals Assessment & Plan ASSESSMENT: * See progress note from 03/26/18 for more background info, in short: * Pt receiving SQ basal bolus insulin regimen for hyperglycemia secondary to baseline DM (outpatient regimen on hold), pt with back pain * Possible pancreatic stent replacement /Thu this week per GI * Patient is currently receiving an average of 115 units of insulin per day * 80 units of basal insulin * 35 units of prandial/correctional insulin * BSGs ranging 77 - 193 mg/dl over the past 24hrs * No changes to regimen at this time, blood sugars acceptable for patient who is very difficult to control PLAN FOR INPATIENT GLYCEMIC CONTROL: * Continue Basal insulin * NPH 40 units SQ BID with meals * Bolus insulin * NovoLog per scale ACHS or Q6hrs while NPO * Goal Range: Low 120 mg/dL - High 160 mg/dL - for patient with difficult control * Correction Factor: 10 mg/dL/unit * Nutritional / Prandial insulin per carb ratio of 1 unit per 4 grams CHO consumed RECOMMENDATIONS FOR DISCHARGE: * Follow up with outpatient provider, 10.3% A1c * Please note that the plan above was derived based on current level of insulin resistance and hospital stress. These recommendations are appropriate for inpatient admission only. Plan of care upon discharge will need to be reassessed to avoid potential outpatient hypo/hyperglycemia. Thank you.
--- NOTE | 2018-03-28 14:48 | Progress Note ---
Medicine Progress Note Date & Time of Visit: March 28, 2018 at 14:48. Subjective seen resting in bedside chair comfortable although reporting recurrence of epigastric pain today no nausea no other symptoms Objective Last 8 Hrs Date Time Temp Pulse Resp B/P (MAP) Pulse Ox O2 Delivery O2 Flow Rate FiO2 03/28/18 08:00 Room Air 03/28/18 07:21 36.5 64 18 146/73 (97) 94 Room Air Physical Exam: General- oriented x 3, not in distress, Eyes- anicteric ENT- oropharynx clear Neck- supple, no JVD Lungs- clear to auscultation bilaterally, no rales/wheezes Heart- regular rhythm; no murmur, normal rate Abdomen- normal bowel sounds, soft, mild epigastric tenderness Extremities- no pretibial edema, no calf tenderness; peripheral pulses intact Neuro- alert, oriented x 3; not in distress Skin- warm & dry Laboratory Results: Last 24 Hours Test 03/27/18 16:49 03/27/18 20:32 03/28/18 07:47 03/28/18 08:36 Bedside Glucose 147 mg/dl 157 mg/dl 193 mg/dl Sodium Level 138 mmol/L Potassium Level 4.4 mmol/L Chloride Level 106 mmol/L Carbon Dioxide Level 24 mmol/L Anion Gap 8.0 mmol/L Blood Urea Nitrogen 21 mg/dl Creatinine 1.36 mg/dl Est Creatinine Clear Calc Drug Dose 30.8 ml/min Estimated GFR () 43.4 Estimated GFR (Non- 37.4 BUN/Creatinine Ratio 15.2 Random Glucose 276 mg/dl Calcium Level 8.4 mg/dl Lipase 510 U/L Test 03/28/18 11:19 Bedside Glucose 158 mg/dl Assessment & Plan Pt is 77 y/o F with PMH asthma, COPD, anxiety, HTN, HLD, DM II, chronic pancreatitis, h/o pancreatic cyst and others listed below who presented to ER with complaint of abdominal pain x 1 day. CHRONIC PANCREATITIS/ ACUTE ON CHRONIC ABDOMINAL PAIN History of EUS with FNA and ERCP with pancreatic stent placed by Dr. Mcfadden in . Patient with increased abdominal pain, nausea today. In ER today WBC: 14, lipase 737. Patient afebrile. CT ABD/pelvis:Pancreatic duct stent in place. No pancreatic ductal dilatation. No evidence of acute pancreatitis at this time. Findings consistent with chronic pancreatitis. Patient given Dilaudid, Zofran, NSS at 125 mL/HR -- pain recurring today Lipase increased to the 500s -- diet advanced PRN analgesics PRN Bentyl -- evaluated by GI possible Stent Placement on POORLY CONTROLLED DM II Glucose 330 to ER. Beta hydroxybutyric acid 5.9. No anion gap. HA1c 9.3 on 01/26/18. Patient reports BSG at home 300-400's consistently. In ER given 10 units of insulin or IV and glucose down to 200. -Patient with history difficult to control BSG in past hospitalizations with hypoglycemic episodes -NovoLog sliding scale as per protocol, decrease patient's home NPH secondary to n.p.o. at this time -Glycemic pharmacist consulted CKD III Cr: 1.4 (baseline~1.3) -- resolved PSEUDOHYPONATREMIA Na: 138 corrected for glucose of 332. HTN Initially hypertensive and then stable after pain control. -Continue metoprolol, amlodipine, - BP stable hold Losartan, HCTZ ASTHMA/COPD No shortness of breath or chest pain or wheezing. -Continue home inhalers and neb treatment as needed HX CVA -Continue ASA, Plavix -Hold statin ANXIETY -Continue Lorazepam as needed -Continue Lexapro PERIPHERAL NEUROPATHY -Continue gabapentin RLS/INSOMNIA -Continue trazodone and mirtazapine, ropinirole DVT Prophylaxis -heparin SQ Disposition pending anticipate d/c home when medically stable and cleared by GI Current Inpatient Medications: Current Inpatient Medications Medications (Trade) Dose Ordered Sig/[place] Route Start Time Stop Time Status Last Admin Dose Admin Heparin Sodium (Porcine) (Heparin Sq 5000 Unit/0.5ml) 5,000 unit Q8H SQ 03/26/18 22:00 04/25/18 21:59 03/28/18 05:34 5,000 UNIT Acetaminophen (Tylenol Tab) 650 mg Q4H PRN PO 03/26/18 15:45 04/25/18 15:44 03/28/18 09:51 650 MG Al Hydrox/Mg Hydrox/Simethicone (Maalox Max Susp) 15 ml Q4H PRN PO 03/26/18 15:45 04/25/18 15:44 Polyethylene (Miralax Powder Packet) 17 gm DAILY PRN PO 03/26/18 15:45 04/25/18 15:44 Ondansetron HCl (Zofran Inj) 4 mg Q6H PRN IV 03/26/18 15:45 04/25/18 15:44 03/27/18 09:20 4 MG Insulin Aspart (novoLOG ASPART) SLIDING SCALE If C... ACHS SC 03/26/18 18:45 04/25/18 18:44 03/28/18 12:37 13 UNITS Glucose (Glucose 40% Gel) 15-30 GRAMS 15 GRAMS... UD PRN PO 03/26/18 16:00 04/25/18 15:59 Glucose (Glucose Chew Tab) 4-8 Tablets 4 Tabl... UD PRN PO 03/26/18 16:00 04/25/18 15:59 Dextrose (Dextrose 50% 50ML Syringe) 25-50ML 25ML FOR ... UD PRN IV 03/26/18 16:00 04/25/18 15:59 Glucagon (Glucagon Inj) 1 mg UD PRN SQ 03/26/18 16:00 04/25/18 15:59 Carbohydrates (Carbohydrates For Hypoglycemia) 15-30 GRAMS 15 grams if BSG 54-69... UD PRN PO 03/26/18 16:00 04/25/18 15:59 Miscellaneous Information (Consult Glycemic Management Pharmacy) 1 ea UD PRN N/A 03/26/18 17:10 04/25/18 17:09 Albuterol (Ventolin Hfa Inhaler) 2 puffs Q4 PRN INH 03/26/18 16:15 04/25/18 16:14 Amlodipine Besylate (Norvasc Tab) 10 mg DAILY PO 03/27/18 09:00 04/26/18 08:59 03/28/18 08:16 10 MG Aspirin (Ecotrin Tab) 81 mg DAILY PO 03/27/18 09:00 04/26/18 08:59 03/28/18 08:16 81 MG Dicyclomine HCl (Bentyl Cap) 10 mg TID PRN PO 03/26/18 16:15 04/25/18 16:14 03/28/18 08:15 10 MG Docusate Sodium (coLACE CAP) 100 mg BID PRN PO 03/26/18 16:15 04/25/18 16:14 Escitalopram Oxalate (Lexapro Tab) 15 mg DAILY PO 03/27/18 09:00 04/26/18 08:59 Future Hold Fluticasone Propionate (Flonase Nasal [place]) 2 sprays DAILY JOSE MANUEL 03/27/18 09:00 04/26/18 08:59 03/28/18 08:17 2 SPRAYS Gabapentin (Neurontin Cap) 400 mg BID PO 03/26/18 21:00 04/25/18 20:59 03/28/18 08:15 400 MG Albuterol/ Ipratropium (Duoneb) 3 ml QID PRN INH 03/26/18 16:15 04/25/18 16:14 Lorazepam (Ativan Tab) 0.5 mg Q6H PRN PO 03/26/18 16:15 04/25/18 16:14 Future Hold Magnesium Oxide (Mag-Ox Tab) 400 mg QAM PO 03/27/18 09:00 04/26/18 08:59 03/28/18 08:17 400 MG Metoprolol Tartrate (Lopressor Tab) 50 mg BID PO 03/26/18 21:00 04/25/18 20:59 03/28/18 08:15 50 MG Pantoprazole Sodium (Protonix Tab) 40 mg DAILY PO 03/27/18 09:00 04/26/18 08:59 03/28/18 08:14 40 MG Ropinirole HCl (Requip Tab) 1 mg HS PO 03/26/18 21:00 04/25/18 20:59 03/27/18 20:30 1 MG Amylase/Lipase/ Protease (Pancreaze (Lipase 4,200U) Cap) 1 cap QID PO 03/26/18 21:00 04/25/18 20:59 03/28/18 12:37 1 CAP Trazodone HCl (Desyrel Tab) 50 mg HS PO 03/26/18 21:00 04/25/18 20:59 Future Hold Ranitidine HCl (zANTac TAB) 75 mg BID PO 03/26/18 21:00 04/25/18 20:59 03/28/18 08:14 75 MG Heparin Sodium (Porcine) (Heparin 100 Unit/ml 5ml Flush) 5 ml PRN PRN IV 03/26/18 18:15 04/25/18 18:14 03/28/18 08:37 5 ML Acetaminophen 650 mg/Empty Bag 65 ml @ 260 mls/hr Q6H PRN IV 03/26/18 18:30 04/25/18 18:29 Hydralazine HCl (HydrALAZINE INJ) 10 mg Q8 PRN IV. 03/26/18 18:30 04/25/18 18:29 Insulin Human NPH (novoLIN-N NPH) 40 units BIDM SC 03/27/18 08:00 04/26/18 07:59 03/28/18 08:25 40 UNITS Lorazepam 0.5 mg/ Syringe 0.5 ml @ 0.5 mls/min Q8 PRN IV 03/26/18 19:00 04/25/18 18:59 Mirtazapine (Remeron Tab) 30 mg HS PO 03/26/18 21:00 04/25/18 20:59 03/27/18 20:31 30 MG Polyethylene (Miralax Powder Packet) 17 gm BID PO 03/28/18 21:00 04/27/18 20:59
--- NOTE | 2018-03-28 16:12 | DIAGNOSTIC IMAGING REPORT ---
R VENOUS DOPPLER UPR EXT UNIL HISTORY: 77 years-old Female r/o dvt acute right upper extremity pain and swelling COMPARISON: None available TECHNIQUE: Multiple real-time sonographic images of the right upper extremity deep venous structures were obtained assessing grayscale appearance, color and spectral flow FINDINGS: The majority of the subclavian and axillary veins are not visualized secondary to port and skin dressing. The proximal cephalic vein is also not visualized. There is normal compressibility, flow and phasicity within the imaged right upper extremity deep venous structures. IMPRESSION: Limited study as above without sonographic evidence of deep venous thrombosis. The above report was generated using voice recognition software. It may contain grammatical, syntax or spelling errors. Electronically signed by: Rob Juarez M.D. 03/28/2018 4:11 PM Dictated Date/Time: 03/28/2018 4:09 PM
--- NOTE | 2018-03-28 16:13 | DIAGNOSTIC IMAGING REPORT ---
R VENOUS DOPP LOWER EXT UNILAT HISTORY: 77 years-old Female r/o dvt acute right lower extremity pain and swelling COMPARISON: None available TECHNIQUE: Multiple real-time sonographic images of the right lower extremity deep venous structures were obtained assessing grayscale appearance, color and spectral flow FINDINGS: The catheter veins are suboptimally visualized. Note is made of calcifications within the right lesser saphenous vein, possibly sequela of remote thrombus. There is normal compressibility, flow, phasicity and augmentation of the right lower extremity deep venous structures. IMPRESSION: No sonographic evidence of deep venous thrombosis The above report was generated using voice recognition software. It may contain grammatical, syntax or spelling errors. Electronically signed by: Rob Juarez M.D. 03/28/2018 4:12 PM Dictated Date/Time: 03/28/2018 4:11 PM
[2018-03-28 17:04] VITALS: BP 140/73; PULSE 90; TEMP 36.5; O2SAT 95
[2018-03-28] MEDS: ROPINIROLE HCL 1 MG TAB PO SCH (21:06)
[2018-03-28] MEDS: MIRTAZAPINE TAB 15 MG TAB PO SCH (21:08)
[2018-03-28] MEDS: POLYETHYLENE (MIRALAX) 17 GM PACK PO SCH (21:13)
[2018-03-28 23:41] VITALS: BP 130/57; PULSE 68; TEMP 36.8; O2SAT 95
[2018-03-29] MEDS: HEPARIN SOD 5000 UNIT/0.5 ML CARP SQ SCH ×3 (05:46→21:38)
[2018-03-29 06:22] LABS: HEMATOCRIT 36.3 % (37-47); HEMOGLOBIN 12.7 g/dL (12.0-16.0); MEAN CELL VOLUME 87.3 fL (80-100); MEAN CORPUSCULAR HEMOGLOBIN 30.5 pg (25-34); MEAN PLATELET VOLUME 9.3 fL (7.4-10.4); PLATELET COUNT 212 K/uL (130-400); RED CELL DISTRIBUTION WIDTH CV 13.7 % (11.5-14.5); RED CELL DISTRIBUTION WIDTH SD 43.5 fL (36.4-46.3); WHITE BLOOD COUNT 8.93 K/uL (4.8-10.8)
[2018-03-29 07:14] VITALS: BP 148/70; PULSE 67; TEMP 36.7; O2SAT 91
[2018-03-29] MEDS: POLYETHYLENE (MIRALAX) 17 GM PACK PO SCH ×2 (07:20→21:00)
[2018-03-29] MEDS: FLUTICASONE PROPIONATE NA SPR 16 GM BTL NAE SCH (07:23)
[2018-03-29] MEDS: GABAPENTIN 400 MG CAP PO SCH ×2 (07:24→21:33)
[2018-03-29] MEDS: PANCREAZE (LIPASE 4,200U) CAP PO SCH ×4 (07:24→21:34)
[2018-03-29] MEDS: CLOPIDOGREL BISULFATE 75 MG TAB PO SCH (07:24)
[2018-03-29] MEDS: PANTOprazole SOD 40 MG TAB PO SCH (07:24)
[2018-03-29] MEDS: MAGNESIUM OXIDE 400 MG TAB PO SCH (07:24)
[2018-03-29] MEDS: ASPIRIN 81 MG ECTAB PO SCH (07:24)
[2018-03-29] MEDS: RANITIDINE HCL 150 MG TAB PO SCH ×2 (07:24→21:35)
[2018-03-29] MEDS: METOPROLOL TARTRATE 50 MG TAB PO SCH ×2 (07:24→21:33)
[2018-03-29] MEDS: AMLODIPINE BESYLATE 5 MG TAB PO SCH (07:25)
[2018-03-29] MEDS: INSULIN ASPART 100 UNITS/ML 3 ML PEN SC SCH ×4 (08:04→21:38)
[2018-03-29] MEDS: INSULIN HUMAN NPH SC SCH ×2 (08:04→17:56)
--- NOTE | 2018-03-29 10:17 | Gastroenterology Progress Note ---
Progress Note Date of Service: March 29, 2018 Subjective Pt evaluation today including: conversation w/ patient, physical exam, chart review, lab review, review of studies, review of inpatient medication list Ms. Angelica Kaplan is a 77 yr old female admitted on 03/26 with abdominal pain in the setting of chronic pancreatitis thought secondary to pancreatic divisum, also a smoker, with prior hx of increased alcohol. She has a stent in place and ERCP is planned for stent change tomorrow. Lipase 737 on arrival, 510 yesterday. WBC 14 on arrival, now 8.9. Hb was 14.6, now 12.7. CT on arrival with chronic pancreatitis, but no evidence of acute inflammation. Today, the pt is able to eat a regular consistency diet and is sitting up in bed reading and talking about a newspaper story. She tells me that her pain is currently a level 7, over the entire abdomen and worse on the left side. This is improved compared to prior as she tells me that it was a 14 - 15 at the time of admission. Most recent BM was this morning. Review of Systems Constitutional: No fever Respiratory: No cough Cardiac: No chest pain Abdomen: + see HPI, + pain, No nausea, No vomiting, No diarrhea, No constipation Neuro: No memory loss Heme: No abnormal bleeding/bruising Endo: No fatigue Skin: No rash Medications Current Inpatient Medications Medications (Trade) Dose Ordered Sig/Rosetta Route Start Time Stop Time Status Last Admin Dose Admin Heparin Sodium (Porcine) (Heparin Sq 5000 Unit/0.5ml) 5,000 unit Q8H SQ 03/26/18 22:00 04/25/18 21:59 03/29/18 05:46 5,000 UNIT Acetaminophen (Tylenol Tab) 650 mg Q4H PRN PO 03/26/18 15:45 04/25/18 15:44 03/28/18 21:52 650 MG Al Hydrox/Mg Hydrox/Simethicone (Maalox Max Susp) 15 ml Q4H PRN PO 03/26/18 15:45 04/25/18 15:44 Polyethylene (Miralax Powder Packet) 17 gm DAILY PRN PO 03/26/18 15:45 04/25/18 15:44 Ondansetron HCl (Zofran Inj) 4 mg Q6H PRN IV 03/26/18 15:45 04/25/18 15:44 03/27/18 09:20 4 MG Insulin Aspart (novoLOG ASPART) SLIDING SCALE If C... ACHS SC 03/26/18 18:45 04/25/18 18:44 03/29/18 08:04 15 UNITS Glucose (Glucose 40% Gel) 15-30 GRAMS 15 GRAMS... UD PRN PO 03/26/18 16:00 04/25/18 15:59 Glucose (Glucose Chew Tab) 4-8 Tablets 4 Tabl... UD PRN PO 03/26/18 16:00 04/25/18 15:59 Dextrose (Dextrose 50% 50ML Syringe) 25-50ML 25ML FOR ... UD PRN IV 03/26/18 16:00 04/25/18 15:59 Glucagon (Glucagon Inj) 1 mg UD PRN SQ 03/26/18 16:00 04/25/18 15:59 Carbohydrates (Carbohydrates For Hypoglycemia) 15-30 GRAMS 15 grams if BSG 54-69... UD PRN PO 03/26/18 16:00 04/25/18 15:59 Miscellaneous Information (Consult Glycemic Management Pharmacy) 1 ea UD PRN N/A 03/26/18 17:10 04/25/18 17:09 Albuterol (Ventolin Hfa Inhaler) 2 puffs Q4 PRN INH 03/26/18 16:15 04/25/18 16:14 Amlodipine Besylate (Norvasc Tab) 10 mg DAILY PO 03/27/18 09:00 04/26/18 08:59 03/29/18 07:25 10 MG Aspirin (Ecotrin Tab) 81 mg DAILY PO 03/27/18 09:00 04/26/18 08:59 03/29/18 07:24 81 MG Dicyclomine HCl (Bentyl Cap) 10 mg TID PRN PO 03/26/18 16:15 04/25/18 16:14 03/28/18 08:15 10 MG Docusate Sodium (coLACE CAP) 100 mg BID PRN PO 03/26/18 16:15 04/25/18 16:14 Escitalopram Oxalate (Lexapro Tab) 15 mg DAILY PO 03/27/18 09:00 04/26/18 08:59 Future Hold Fluticasone Propionate (Flonase Nasal [place]) 2 sprays DAILY JOSE MANUEL 03/27/18 09:00 04/26/18 08:59 03/29/18 07:23 2 SPRAYS Gabapentin (Neurontin Cap) 400 mg BID PO 03/26/18 21:00 04/25/18 20:59 03/29/18 07:24 400 MG Albuterol/ Ipratropium (Duoneb) 3 ml QID PRN INH 03/26/18 16:15 04/25/18 16:14 Lorazepam (Ativan Tab) 0.5 mg Q6H PRN PO 03/26/18 16:15 04/25/18 16:14 Future Hold Magnesium Oxide (Mag-Ox Tab) 400 mg QAM PO 03/27/18 09:00 04/26/18 08:59 03/29/18 07:24 400 MG Metoprolol Tartrate (Lopressor Tab) 50 mg BID PO 03/26/18 21:00 04/25/18 20:59 03/29/18 07:24 50 MG Pantoprazole Sodium (Protonix Tab) 40 mg DAILY PO 03/27/18 09:00 04/26/18 08:59 03/29/18 07:24 40 MG Ropinirole HCl (Requip Tab) 1 mg HS PO 03/26/18 21:00 04/25/18 20:59 03/28/18 21:06 1 MG Amylase/Lipase/ Protease (Pancreaze (Lipase 4,200U) Cap) 1 cap QID PO 03/26/18 21:00 04/25/18 20:59 03/29/18 07:24 1 CAP Trazodone HCl (Desyrel Tab) 50 mg HS PO 03/26/18 21:00 04/25/18 20:59 Future Hold Ranitidine HCl (zANTac TAB) 75 mg BID PO 03/26/18 21:00 04/25/18 20:59 03/29/18 07:24 75 MG Heparin Sodium (Porcine) (Heparin 100 Unit/ml 5ml Flush) 5 ml PRN PRN IV 03/26/18 18:15 04/25/18 18:14 03/29/18 05:41 5 ML Acetaminophen 650 mg/Empty Bag 65 ml @ 260 mls/hr Q6H PRN IV 03/26/18 18:30 04/25/18 18:29 Hydralazine HCl (HydrALAZINE INJ) 10 mg Q8 PRN IV. 03/26/18 18:30 04/25/18 18:29 Insulin Human NPH (novoLIN-N NPH) 40 units BIDM SC 03/27/18 08:00 04/26/18 07:59 03/29/18 08:04 40 UNITS Lorazepam 0.5 mg/ Syringe 0.5 ml @ 0.5 mls/min Q8 PRN IV 03/26/18 19:00 04/25/18 18:59 Mirtazapine (Remeron Tab) 30 mg HS PO 03/26/18 21:00 04/25/18 20:59 03/28/18 21:08 30 MG Polyethylene (Miralax Powder Packet) 17 gm BID PO 03/28/18 21:00 04/27/18 20:59 03/28/18 21:13 17 GM Clopidogrel Bisulfate (plAVix TAB) 75 mg QAM PO 03/29/18 09:00 04/28/18 08:59 03/29/18 07:24 75 MG Objective Vital Signs Date Time Temp Pulse Resp B/P (MAP) Pulse Ox O2 Delivery O2 Flow Rate FiO2 03/29/18 07:14 36.7 67 20 148/70 (96) 91 03/29/18 00:00 Room Air 03/28/18 23:41 36.8 68 20 130/57 (81) 95 Room Air 03/28/18 20:00 Room Air 03/28/18 17:04 36.5 90 18 140/73 (95) 95 03/28/18 16:00 Room Air Physical Exam General Appearance: no apparent distress ENT: pharynx normal Neck: thyroid normal, no JVD Respiratory/Chest: lungs clear Cardiovascular: regular rate, rhythm, + systolic murmur (2-3/6) Abdomen: soft, + distended (mildly) Extremities: non-tender Neurologic/Psych: alert, normal mood/affect, oriented x 3 Skin: no jaundice Laboratory Results Last 24 Hours Test 03/28/18 11:19 03/28/18 16:52 03/28/18 20:43 03/29/18 05:43 Bedside Glucose 158 mg/dl 153 mg/dl 173 mg/dl White Blood Count 8.93 K/uL Red Blood Count 4.16 M/uL Hemoglobin 12.7 g/dL Hematocrit 36.3 % Mean Corpuscular Volume 87.3 fL Mean Corpuscular Hemoglobin 30.5 pg Mean Corpuscular Hemoglobin Concent 35.0 g/dl RDW Standard Deviation 43.5 fL RDW Coefficient of Variation 13.7 % Platelet Count 212 K/uL Mean Platelet Volume 9.3 fL Test 03/29/18 07:28 Bedside Glucose 199 mg/dl CT abd/pelvis on 03/26/18: 1. Pancreatic duct stent in place. No pancreatic ductal dilatation. No evidence of acute pancreatitis at this time. Findings consistent with chronic pancreatitis. 2. Evidence of prior granulomatous infection. 3. Limited diverticulosis. No evidence of diverticulitis. 4. Osteonecrosis of the femoral heads, right greater than left. Assessment and Plan Ms. Angelica Kaplan is a 77 yr old female with abdominal pain in the setting of hx of chronic pancreatitis. No clear evidence of stent occlusion or acute inflammation on imaging though lipase is above her baseline. Plan: 1. ERCP for stent change tomorrow by Dr. Mcfadden in the OR. She will be an add on and it is tentatively scheduled for approx 2:15PM. 2. NPO after midnight tonight. I have seen and examined the patient with JOE Smalls whose note reflects our findings and plan. ERCP planned for tomorrow.
[2018-03-29] MEDS: ACETAMINOPHEN 325 MG TAB PO PRN (11:17)
[2018-03-29 15:41] VITALS: BP 157/83; PULSE 73; TEMP 36.5; O2SAT 95
[2018-03-29] MEDS: MIRTAZAPINE TAB 15 MG TAB PO SCH (21:34)
[2018-03-29] MEDS: ROPINIROLE HCL 1 MG TAB PO SCH (21:35)
[2018-03-30 00:11] VITALS: BP 150/63; PULSE 72; TEMP 36.9; O2SAT 97
[2018-03-30] MEDS ORDERED: CIPROFLOXACIN 400MG / 200ML D5W IV SCH (06:00)
--- NOTE | 2018-03-30 06:09 | Progress Note ---
Medicine Progress Note Date & Time of Visit: March 30, 2018 at 06:03. Subjective delayed entry date of service 03/29/18 seen resting in bed, comfortable states she has constant abdominal pain- "nagging" mild-moderate (+) BMs, no nausea/vomiting denies other symptoms Objective Last 8 Hrs Date Time Temp Pulse Resp B/P (MAP) Pulse Ox O2 Delivery O2 Flow Rate FiO2 03/30/18 00:45 Nasal Cannula 2.0 03/30/18 00:11 36.9 72 20 150/63 (92) 97 Room Air Physical Exam: General- oriented x 3, not in distress, Eyes- anicteric Neck- no JVD Lungs- clear breath sounds BL Heart- regular rhythm; no murmur, normal rate Abdomen- normal bowel sounds, soft, mild epigastric tenderness Extremities- no pretibial edema, no calf tenderness; peripheral pulses intact Neuro- alert, oriented x 3; not in distress Skin- warm & dry Laboratory Results: Last 24 Hours Test 03/29/18 07:28 03/29/18 11:09 03/29/18 16:44 03/29/18 20:39 Bedside Glucose 199 mg/dl 175 mg/dl 199 mg/dl 210 mg/dl Assessment & Plan Pt is 77 y/o F with PMH asthma, COPD, anxiety, HTN, HLD, DM II, chronic pancreatitis, h/o pancreatic cyst and others listed below who presented to ER with complaint of abdominal pain x 1 day. CHRONIC PANCREATITIS/ ACUTE ON CHRONIC ABDOMINAL PAIN History of EUS with FNA and ERCP with pancreatic stent placed by Dr. Mcfadden in . Patient with increased abdominal pain, nausea today. In ER today WBC: 14, lipase 737. Patient afebrile. CT ABD/pelvis:Pancreatic duct stent in place. No pancreatic ductal dilatation. No evidence of acute pancreatitis at this time. Findings consistent with chronic pancreatitis. Patient given Dilaudid, Zofran, NSS at 125 mL/HR -- pain still persistent Lipase increased to the 500s -- diet advanced PRN analgesics PRN Bentyl -- evaluated by GI Stent Placement on POORLY CONTROLLED DM II Glucose 330 to ER. Beta hydroxybutyric acid 5.9. No anion gap. HA1c 9.3 on 01/26/18. Patient reports BSG at home 300-400's consistently. In ER given 10 units of insulin or IV and glucose down to 200. -Patient with history difficult to control BSG in past hospitalizations with hypoglycemic episodes -NovoLog sliding scale as per protocol, decrease patient's home NPH secondary to n.p.o. at this time -Glycemic pharmacist consulted CKD III Cr: 1.4 (baseline~1.3) -- resolved PSEUDOHYPONATREMIA Na: 138 corrected for glucose of 332. HTN Initially hypertensive and then stable after pain control. -Continue metoprolol, amlodipine, Losartan hold HCTZ ASTHMA/COPD No shortness of breath or chest pain or wheezing. -Continue home inhalers and neb treatment as needed HX CVA -Continue ASA, Plavix -Hold statin ANXIETY -Continue Lorazepam as needed -Continue Lexapro PERIPHERAL NEUROPATHY -Continue gabapentin RLS/INSOMNIA -Continue trazodone and mirtazapine, ropinirole DVT Prophylaxis -heparin SQ Disposition pending anticipate d/c home when medically stable and cleared by GI Current Inpatient Medications: Current Inpatient Medications Medications (Trade) Dose Ordered Sig/Rosetta Route Start Time Stop Time Status Last Admin Dose Admin Heparin Sodium (Porcine) (Heparin Sq 5000 Unit/0.5ml) 5,000 unit Q8H SQ 03/26/18 22:00 04/25/18 21:59 03/29/18 21:38 5,000 UNIT Acetaminophen (Tylenol Tab) 650 mg Q4H PRN PO 03/26/18 15:45 04/25/18 15:44 03/29/18 11:17 650 MG Al Hydrox/Mg Hydrox/Simethicone (Maalox Max Susp) 15 ml Q4H PRN PO 03/26/18 15:45 04/25/18 15:44 Polyethylene (Miralax Powder Packet) 17 gm DAILY PRN PO 03/26/18 15:45 04/25/18 15:44 Ondansetron HCl (Zofran Inj) 4 mg Q6H PRN IV 03/26/18 15:45 04/25/18 15:44 03/27/18 09:20 4 MG Insulin Aspart (novoLOG ASPART) SLIDING SCALE If C... ACHS SC 03/26/18 18:45 04/25/18 18:44 03/29/18 21:38 6 UNITS Glucose (Glucose 40% Gel) 15-30 GRAMS 15 GRAMS... UD PRN PO 03/26/18 16:00 6/3/18 15:59 Glucose (Glucose Chew Tab) 4-8 Tablets 4 Tabl... UD PRN PO 03/26/18 16:00 04/25/18 15:59 Dextrose (Dextrose 50% 50ML Syringe) 25-50ML 25ML FOR ... UD PRN IV 03/26/18 16:00 04/25/18 15:59 Glucagon (Glucagon Inj) 1 mg UD PRN SQ 03/26/18 16:00 04/25/18 15:59 Carbohydrates (Carbohydrates For Hypoglycemia) 15-30 GRAMS 15 grams if BSG 54-69... UD PRN PO 03/26/18 16:00 04/25/18 15:59 Miscellaneous Information (Consult Glycemic Management Pharmacy) 1 ea UD PRN N/A 03/26/18 17:10 04/25/18 17:09 Albuterol (Ventolin Hfa Inhaler) 2 puffs Q4 PRN INH 03/26/18 16:15 04/25/18 16:14 Amlodipine Besylate (Norvasc Tab) 10 mg DAILY PO 03/27/18 09:00 04/26/18 08:59 03/29/18 07:25 10 MG Aspirin (Ecotrin Tab) 81 mg DAILY PO 03/27/18 09:00 04/26/18 08:59 03/29/18 07:24 81 MG Dicyclomine HCl (Bentyl Cap) 10 mg TID PRN PO 03/26/18 16:15 04/25/18 16:14 03/28/18 08:15 10 MG Docusate Sodium (coLACE CAP) 100 mg BID PRN PO 03/26/18 16:15 04/25/18 16:14 Escitalopram Oxalate (Lexapro Tab) 15 mg DAILY PO 03/27/18 09:00 04/26/18 08:59 Future Hold Fluticasone Propionate (Flonase Nasal [place]) 2 sprays DAILY JOSE MANUEL 03/27/18 09:00 04/26/18 08:59 03/29/18 07:23 2 SPRAYS Gabapentin (Neurontin Cap) 400 mg BID PO 03/26/18 21:00 04/25/18 20:59 03/29/18 21:33 400 MG Albuterol/ Ipratropium (Duoneb) 3 ml QID PRN INH 03/26/18 16:15 04/25/18 16:14 Lorazepam (Ativan Tab) 0.5 mg Q6H PRN PO 03/26/18 16:15 04/25/18 16:14 Future Hold Magnesium Oxide (Mag-Ox Tab) 400 mg QAM PO 03/27/18 09:00 04/26/18 08:59 03/29/18 07:24 400 MG Metoprolol Tartrate (Lopressor Tab) 50 mg BID PO 03/26/18 21:00 04/25/18 20:59 03/29/18 21:33 50 MG Pantoprazole Sodium (Protonix Tab) 40 mg DAILY PO 03/27/18 09:00 04/26/18 08:59 03/29/18 07:24 40 MG Ropinirole HCl (Requip Tab) 1 mg HS PO 03/26/18 21:00 04/25/18 20:59 03/29/18 21:35 1 MG Amylase/Lipase/ Protease (Pancreaze (Lipase 4,200U) Cap) 1 cap QID PO 03/26/18 21:00 04/25/18 20:59 03/29/18 21:34 1 CAP Trazodone HCl (Desyrel Tab) 50 mg HS PO 03/26/18 21:00 04/25/18 20:59 Future Hold Ranitidine HCl (zANTac TAB) 75 mg BID PO 03/26/18 21:00 04/25/18 20:59 03/29/18 21:35 75 MG Heparin Sodium (Porcine) (Heparin 100 Unit/ml 5ml Flush) 5 ml PRN PRN IV 03/26/18 18:15 04/25/18 18:14 03/29/18 05:41 5 ML Acetaminophen 650 mg/Empty Bag 65 ml @ 260 mls/hr Q6H PRN IV 03/26/18 18:30 04/25/18 18:29 Hydralazine HCl (HydrALAZINE INJ) 10 mg Q8 PRN IV. 03/26/18 18:30 04/25/18 18:29 Lorazepam 0.5 mg/ Syringe 0.5 ml @ 0.5 mls/min Q8 PRN IV 03/26/18 19:00 04/25/18 18:59 Mirtazapine (Remeron Tab) 30 mg HS PO 03/26/18 21:00 04/25/18 20:59 03/29/18 21:34 30 MG Polyethylene (Miralax Powder Packet) 17 gm BID PO 03/28/18 21:00 04/27/18 20:59 03/28/18 21:13 17 GM Clopidogrel Bisulfate (plAVix TAB) 75 mg QAM PO 03/29/18 09:00 04/28/18 08:59 03/29/18 07:24 75 MG Insulin Human NPH (novoLIN-N NPH) 44 units BIDM SC 03/29/18 17:00 04/28/18 16:59 Future Hold 03/29/18 17:56 44 UNITS Tramadol HCl (Ultram Tab) 50 mg Q8H PRN PO 03/29/18 17:15 04/28/18 17:14
[2018-03-30] MEDS: HEPARIN SOD 5000 UNIT/0.5 ML CARP SQ SCH ×3 (06:35→21:20)
[2018-03-30 07:52] VITALS: BP 147/73; PULSE 80; TEMP 36.7; O2SAT 95
[2018-03-30] MEDS ORDERED: INSULIN HUMAN NPH SC SCH ×2 (08:15→17:00)
[2018-03-30] MEDS: INSULIN ASPART 100 UNITS/ML 3 ML PEN SC SCH ×4 (08:15→21:16)
[2018-03-30] MEDS: POLYETHYLENE (MIRALAX) 17 GM PACK PO SCH ×2 (08:19→21:04)
[2018-03-30] MEDS: PANTOprazole SOD 40 MG TAB PO SCH (08:20)
[2018-03-30] MEDS: FLUTICASONE PROPIONATE NA SPR 16 GM BTL NAE SCH (08:20)
[2018-03-30] MEDS: LOSARTAN POTASSIUM 50 MG TAB PO SCH (08:20)
[2018-03-30] MEDS: GABAPENTIN 400 MG CAP PO SCH ×2 (08:20→21:08)
[2018-03-30] MEDS: CLOPIDOGREL BISULFATE 75 MG TAB PO SCH (08:20)
[2018-03-30] MEDS: PANCREAZE (LIPASE 4,200U) CAP PO SCH ×4 (08:20→21:08)
[2018-03-30] MEDS: RANITIDINE HCL 150 MG TAB PO SCH ×2 (08:20→21:05)
[2018-03-30] MEDS: METOPROLOL TARTRATE 50 MG TAB PO SCH ×2 (08:21→21:08)
[2018-03-30] MEDS: AMLODIPINE BESYLATE 5 MG TAB PO SCH (08:21)
[2018-03-30] MEDS: MAGNESIUM OXIDE 400 MG TAB PO SCH (08:21)
[2018-03-30] MEDS: ASPIRIN 81 MG ECTAB PO SCH (08:21)
--- NOTE | 2018-03-30 09:46 | Progress Note ---
Progress Note Date of Service March 30, 2018. Progress Note Pt was seen and evaluated, chart reviewed. Is NPO for ERCP. Endorses epigastric and RUQ pain, intermittent. No nausea or vomiting. No acute distress No scleral icterus Abd is soft, non-distended w/ generalized tenderness w/o rebound or guarding 77 year old female w/ history of chronic pancreatitis w/o evidence of stent occlusion or acute inflammation on imaging though lipase is above her baseline. Plan for ERCP today in the OR NPO ERCP today
--- NOTE | 2018-03-30 09:57 | Pharmacy Progress Note ---
Pharmacy Glycemic Short Note 2 Date of Service March 30, 2018. OUTPATIENT ANTIDIABETIC REGIMEN: * Novolin 70/30 85 units BID * Regular insulin 24 units SQ BID with meals ASSESSMENT: * See progress note from 03/26/18 for more background info, in short: * Pt receiving SQ basal bolus insulin regimen for hyperglycemia secondary to baseline DM (outpatient regimen on hold), pt with back pain * Pt was made NPO at midnight for ERCP with pancreatic stent replacement * Patient is currently receiving an average of 139 units of insulin per day * 84 units of basal insulin * 55 units of prandial/correctional insulin * BSGs ranging 175-210 mg/dl over the past 24hrs * Fasting BSG is trending downward following increase in basal insulin yesterday. Will decrease AM basal dose by 50% for NPO status, then likely resume previous dosing post procedure * Post prandial BSGs became elevated on 03/29 - will tighten carb ratio PLAN FOR INPATIENT GLYCEMIC CONTROL: * Continue Basal insulin * NPH 44 units SQ BID with meals (partial dose of 22 units ordered 5/8 AM for NPO status) * Bolus insulin - tighten * NovoLog per scale ACHS or Q6hrs while NPO * Goal Range: Low 120 mg/dL - High 160 mg/dL - for patient with difficult control * Correction Factor: 10 mg/dL/unit * Nutritional / Prandial insulin per carb ratio of 1 unit per 3 grams CHO consumed PLAN FOR DISCHARGE: * Follow up with outpatient provider, 10.3% A1c
[2018-03-30] MEDS ORDERED: INDOMETHACIN 50 MG SUPP PR ONE ×2 (10:00→12:45)
--- NOTE | 2018-03-30 14:46 | Endo History and Physical ---
History & Physical Date of Service: March 30, 2018. Chief Complaint: Abdominal pain Referring Physician: History of Present Illness Patient with a history of chronic pancreatitis from pancreatic divisum presented with recurrent mild pancreatitis. We are planning to exchange a pancreatic stent today hopes of alleviating her symptoms. Past Medical History Diabetes, Asthma, Anxiety, Reflux, High Cholesterol, Sleep Apnea, Hypertension, COPD, Kidney Disease, CVA/TIA, Depression Past Surgical History Hx Cardiac Surgery: No Hx Internal Defibrillator: No Hx Pacemaker: No Hx Abdominal Surgery: Yes (tate ercp,pancreatic stent) Hx Post-Op Nausea and Vomiting: No Hx Cancer Surgery: No Hx Thoracic Surgery: No Hx Orthopedic: Yes (l fx ankle) Hx Urinary Tract Surgery: No Social History Smoking Status: Former Smoker Smokeless Tobacco Use: No Hx Substance Use: No Hx Alcohol Use: No Allergies Coded Allergies: Iodinated Diagnostic Agents (Verified Allergy, Severe, RASH TO IVP DYE, NAUSEA, FAINTING, COUGHING, GAGGING, HEADACH, 03/26/18) Sulfa Antibiotics (Verified Allergy, Severe, HIVES, FACIAL AND ARM SWELLING, 03/26/18) Cerivastatin (Verified Allergy, Intermediate, HIVES, 03/26/18) Codeine (Verified Allergy, Intermediate, "PRICKLY RASH", 03/26/18) Hydroxyzine (Verified Allergy, Intermediate, N/V, 03/26/18) Latex1 -Allergic Contact Dermititis (Verified Allergy, Intermediate, DERMATITIS-PT TOLERATED A LATEX CATHETER 03/26/08, 03/26/18) Diphenhydramine (Verified Allergy, Mild, RASH; SLEEPINESS WITH "PHARBEDRYL ", 03/26/18) Loratadine (Verified Allergy, Mild, HIVES, 03/26/18) Sulfamethoxazole w/Trimethoprim (Verified Allergy, Mild, RASH, 03/26/18) Prednisone (Verified Allergy, Unknown, unknown, 03/26/18) Tetanus Toxoid (Verified Adverse Reaction, Intermediate, SWELLING AT INJECTION SITE, 03/26/18) Alprazolam (Verified Adverse Reaction, Unknown, "SLEEPY STUPER", 03/26/18) Metformin (Verified Adverse Reaction, Unknown, DIARRHEA, 03/26/18) Morphine (Verified Adverse Reaction, Unknown, VOMITING, 03/26/18) Simvastatin (Verified Adverse Reaction, Unknown, COUGH, "DISCOMFORT", ) Current Medications Reported Home Medications Medications Dose Route/Sig Max Daily Dose Days Date Category Dose Instructions Trazodone (Trazodone HCl) 50 Mg Tab 50 Mg PO HS 03/26/18 Reported Protonix (Pantoprazole Sodium) 40 Mg Tab 40 Mg PO DAILY 03/26/18 Reported Flonase Allergy Relief (Fluticasone Propionate (Nasal)) 50 Mcg/Act Spr 2 Sprays JOSE MANUEL DAILY 03/26/18 Reported Lexapro (Escitalopram Oxalate) 10 Mg Tab 15 Mg PO DAILY 03/26/18 Reported Lipitor (Atorvastatin Calcium) 10 Mg Tab 10 Mg PO DAILY 03/26/18 Reported Aspirin Ec (Aspirin) 81 Mg Tab 81 Mg PO DAILY 03/26/18 Reported Ranitidine 75 (Ranitidine HCl) 75 Mg Tab 75 Mg PO BID 03/26/18 Reported Humulin R (Insulin Human Regular) 100 Units/Ml Susp 24 Units SQ BID 03/26/18 Reported GIVE 24 UNITS AFTER LUNCH AND BEFORE BED Dicyclomine HCl 10 Mg Cap 10 Mg PO TID PRN 12/24/17 Reported Duoneb (Ipratropium-Albuterol) 3 Ml Nebu 1 Treatment INH QID PRN 12/24/17 Reported [place] (Chlorthalidone) 25 Mg Tab 25 Mg PO DAILY 12/18/17 Reported Norvasc (Amlodipine Besylate) 10 Mg Tab 10 Mg PO DAILY 12/18/17 Reported Ventolin Hfa (Albuterol) 200 Puffs/93924 Mcg Aers 2 Puffs INH Q4 PRN 12/08/17 Reported Cozaar (Losartan Potassium) 100 Mg Tab 100 Mg PO QAM 12/08/17 Reported Ativan (Lorazepam) 0.5 Mg Tab 0.5 Mg PO Q6H PRN 01/24/17 Reported Novolin 70/30 (Insulin Human Isoph/Insulin Regular) Susp 85 Units SC BID 01/24/17 Reported GIVE BEFORE BREAKFAST AND BEFORE SUPPER Creon (Pancrelipase (Lipase-Protease-) 1 Cap Cap 6,000 Units PO QID 01/24/17 Reported Lopressor (Metoprolol Tartrate) 50 Mg Tab 50 Mg PO BID 01/24/17 Reported Mag-Ox (Magnesium Oxide) 400 Mg Tab 400 Mg PO QAM 01/24/17 Reported Remeron (Mirtazapine) 30 Mg Tab 30 Mg PO HS 07/19/16 Reported Neurontin (Gabapentin) 400 Mg Cap 400 Mg PO BID 05/18/16 Reported AT BREAKFAST AND AT BEDTIME Colace (Docusate Sodium) 100 Mg Cap 100 Mg PO BID PRN 01/28/16 Reported Requip (Ropinirole Hydrochloride) 1 Mg Tab 1 Mg PO HS 30 12/18/15 Reported Vital Signs Weight (Kilograms): 72.400 Height (Feet): 5 Height (Inches): 0.00 Date Time Temp Pulse Resp B/P (MAP) Pulse Ox O2 Delivery O2 Flow Rate FiO2 03/30/18 08:30 Room Air 03/30/18 07:52 36.7 80 16 147/73 (97) 95 Room Air 03/30/18 00:45 Nasal Cannula 2.0 03/30/18 00:11 36.9 72 20 150/63 (92) 97 Room Air 03/29/18 16:00 Room Air 03/29/18 15:41 36.5 73 20 157/83 (107) 95 Room Air Physical Exam General Appearance: no apparent distress Respiratory/Chest: Auscultation: deminished air movement Cardiovascular: Heart Auscultation: II/ REY Abdomen: Inspection & Palpation: soft Assessment and Plan We have discussed the risks and benefits of ERCP to include bleeding, infection , perforation, pain pancreatitis and need for follow-up interventions.
[2018-03-30] MEDS ORDERED: ONDANSETRON INJ 2 MG/ML 2 ML VIAL ONE (14:47)
[2018-03-30] MEDS ORDERED: LARYING-O-JET KIT (LTA) ONE (14:47)
[2018-03-30] MEDS ORDERED: LIDOCAINE HCL 2% 2 ML VIAL (20MG/ML) ONE ×2 (14:47→15:38)
[2018-03-30] MEDS ORDERED: FENTANYL CITRATE INJ 50 MCG/1 ML 2 ML VIAL ONE (14:48)
[2018-03-30] MEDS ORDERED: PROPOFOL IV EMULSION 10 MG/ML 20 ML VIAL ONE (15:38)
[2018-03-30] MEDS ORDERED: INDOMETHACIN 50 MG SUPP ONE (15:40)
--- NOTE | 2018-03-30 15:46 | GI REPORT ---
Patient Name: Angelica Kaplan Procedure Date: 03/30/2018 2:49 PM Date of : 1940 Admit Type: Inpatient Age: 77 Gender: Female Attending MD: Meche Mcfadden DO Procedure: ERCP Providers: Meche Mcfadden DO Referring MD: Bud Coelho Md Indications: Abdominal pain of suspected pancreatic origin, For therapy of chronic pancreatitis Medicines: General Anesthesia, Cipro 400 mg IV Complications: No immediate complications. Estimated blood loss: Minimal. Estimated Blood Loss: Estimated blood loss was minimal. Procedure: Pre-Anesthesia Assessment: - Prior to the procedure, a History and Physical was performed, and patient medications, allergies and sensitivities were reviewed. The patient's tolerance of previous anesthesia was reviewed. - The risks and benefits of the procedure and the sedation options and risks were discussed with the patient. All questions were answered and informed consent was obtained. - Patient identification and proposed procedure were verified prior to the procedure by the physician, the nurse and the drug abuse resistance education officer. The procedure was verified in the procedure room. - Pre-procedure physical examination revealed no contraindications to sedation. - ASA Grade Assessment: III - A patient with severe systemic disease. - After reviewing the risks and benefits, the patient was deemed in satisfactory condition to undergo the procedure. - The anesthesia plan was to use general anesthesia. - Immediately prior to administration of medications, the patient was re-assessed for adequacy to receive sedatives. - The heart rate, respiratory rate, oxygen saturations, blood pressure, adequacy of pulmonary ventilation, and response to care were monitored throughout the procedure. - The physical status of the patient was re-assessed after the procedure. After obtaining informed consent, the scope was passed under direct vision. Throughout the procedure, the patient's blood pressure, pulse, and oxygen saturations were monitored continuously. The Scope was introduced through the mouth, and advanced to the duodenum and used to inject contrast into the dorsal pancreatic duct. The ERCP was accomplished without difficulty. The patient tolerated the procedure well. Findings: The total fluoroscopy exposure time was 52 seconds. A tool and die repair film of the abdomen was obtained. Surgical clips, consistent with previous cholecystectomy, were seen in the area of the right upper quadrant of the abdomen. One stent ending in the accessory pancreatic duct was seen. The esophagus was successfully intubated under direct vision without detailed examination of the pharynx, larynx, and associated structures, and upper GI tract. The upper GI tract was grossly normal. One pancreatic stent was emerging from the minor papilla. The stent was visibly occluded. One stent was removed from the pancreatic duct using a snare. Deep cannulation and injection of contrast into the dorsal pancreatic duct was accomplished with the short-nosed traction sphincterotome (Omni 35) and 0.035 in Acrobat 2 guidewire. I personally interpreted the pancreatic duct images. Contrast extended to the pancreatic duct. A complete pancreas divisum was identified (previously known). The ventral pancreatic duct in the head of the pancreas contained a mild stenosis twenty mm in length, this appeared improved from a prior examnation. The pancreatic duct in the body of the pancreas contained filling defect(s). The pancreatic duct in the genu of the pancreas and pancreatic duct in the body of the pancreas were dilated diffusely to 5 mm. The pancreatic duct stricture was successfully dilated with a 4 mm balloon dilator, after dilated several small pancreatic stones passed through the orifice. To remove object(s) the dorsal pancreatic duct was swept with a 8.5 mm balloon starting at the pancreatic duct in the body of the pancreas. A few small pale stones were removed. One 5 Fr by 9 cm pancreatic stent with a full external pigtail and no internal flaps was placed 9 cm into the dorsal pancreatic duct. Clear fluid flowed through the stent. The stent was in good position. The endoscope was withdrawn from the patient. Impression: - Patient with chornic pancreatitis likely related to P divisum. - Treated today with stricture dilation and pancreatic stone extraction - Prophylactic pancreatic stent placed Recommendation: - Return patient to [facility] for ongoing care. - Clear liquid diet today. - Use broad spectrum antibiotics for 3 days. - KUB in 1 month to evaluate for spontaneous stent passage - Hold plavix for 48 hours please. Meche Mcfadden D.O. Meche Mcfadden DO 03/30/2018 3:46:04 PM This report has been signed electronically. Note Initiated On: 03/30/2018 2:49 PM Number of Addenda: 0 I attest to the content of the Intraoperative Record and orders documented therein, exceptions below {[id number]}
--- NOTE | 2018-03-30 15:47 | [facility] Post Operative Brief Note ---
Immediate Operative Summary Operative Date March 30, 2018. Pre-Operative Diagnosis Chronic pancreatitis Post-Operative Diagnosis Chronic pancreatitis (pancreatic stricture with intraductal stones) Procedure(s) Performed Endoscopic Retrograde Cholangiopancreatogram Surgeon Dr. Mcfadden [employer] Knitting Machine Operator Surgeon(s) None Estimated Blood Loss 0cc Findings Consistent with Post-Op Diagnosis Specimens None per surgeon Drains Pancreatic stent placed Anesthesia Type General Complication(s) none Disposition Accompanied Pt To Recover: no Disposition: Recovery Room / PACU
--- NOTE | 2018-03-30 15:52 | Progress Note ---
Progress Note Date of Service March 30, 2018. Progress Note ERCP completed this afternoon. Findings: occluded pancreatic stent Improved pancreatic stricture (dilated to 4 mm today) Removal of intraductal stone material placement of a 9 cm pancreatic stent Recomendation: LR 500 ml bolus in recovery LR at 125 ml / hour overnight clear liquid diet Cipro 500 mg bid x 3 days KUB in 4 weeks (evaluate for pancreatic stent migration)
--- NOTE | 2018-03-30 15:58 | DIAGNOSTIC IMAGING REPORT ---
ERCP BILIARY DUCTAL CLINICAL HISTORY: Pancreatic duct stent COMPARISON STUDY: CT scan dated 03/26/2018 FLUOROSCOPY TIME: 53 seconds. NUMBER OF FLUOROSCOPIC IMAGES: 12 FINDINGS: 12 intraoperative fluoroscopic spot images are provided for interpretation. There are surgical clips at the level of the cystic duct. The pancreatic duct was cannulized and contrast was instilled. Multiple pancreatic ductal filling defects are visualized. A balloon catheter was then advanced of the pancreatic duct and inflated. There is evidence for pancreatic ductal beading. IMPRESSION: Intraoperative ERCP with fluoroscopic spot images as described above Electronically signed by: Dipak Velasquez M.D. 03/30/2018 3:57 PM Dictated Date/Time: 03/30/2018 3:54 PM
[2018-03-30] MEDS ORDERED: EpHEDrine SULFATE INJ 50 MG/ML AMP IV PRN (16:00)
[2018-03-30] MEDS ORDERED: ONDANSETRON INJ 2 MG/ML 2 ML VIAL IV PRN (16:00)
[2018-03-30] MEDS ORDERED: ATROPINE SULFATE 0.1 MG/ML 5ML SYR IV PRN (16:00)
[2018-03-30] MEDS ORDERED: DEXAMETHASONE SOD INJ 4 MG/ML VIAL ONE (16:01)
[2018-03-30] MEDS ORDERED: NURSING VERBAL MED ORDER ONE (16:15)
[2018-03-30] MEDS ORDERED: ALBUT/IPRATROP 3MG/0.5MG NEB 3 ML VIAL INH ONE (16:15)
[2018-03-30 16:18] VITALS: PULSE 73; O2SAT 100
[2018-03-30] MEDS: FENTANYL CITRATE INJ 50 MCG/1 ML 2 ML VIAL IV PRN ×4 (16:20→16:35)
--- NOTE | 2018-03-30 16:55 | Anesthesiology Progress Note ---
Anesthesia Post Op Note Date & Time March 30, 2018 at 16:55 Vital Signs Pain Intensity: 4 Vital Signs Past 12 Hours Date Time Temp Pulse Resp B/P (MAP) Pulse Ox O2 Delivery O2 Flow Rate FiO2 03/30/18 16:42 73 10 03/30/18 16:42 36.3 73 16 138/63 (67) 98 Nasal Cannula 3 03/30/18 16:42 72 10 97 03/30/18 16:41 138/63 03/30/18 16:37 70 7 03/30/18 16:37 70 7 96 03/30/18 16:36 72 13 03/30/18 16:36 72 13 139/81 98 03/30/18 16:31 72 13 98 03/30/18 16:31 73 13 03/30/18 16:30 143/83 03/30/18 16:28 72 20 98 03/30/18 16:28 74 20 03/30/18 16:26 141/75 03/30/18 16:23 74 12 99 03/30/18 16:23 73 12 03/30/18 16:22 36.7 81 18 126/93 (103) 97 Oxymask 10 03/30/18 16:21 132/69 03/30/18 16:18 74 13 03/30/18 16:18 73 18 100 Mask 9.0 03/30/18 16:18 74 13 100 03/30/18 16:15 143/83 03/30/18 16:13 72 16 03/30/18 16:13 72 16 99 03/30/18 16:11 119/74 03/30/18 16:08 72 18 03/30/18 16:08 73 18 100 03/30/18 16:06 125/57 03/30/18 16:03 74 20 99 03/30/18 16:03 74 20 03/30/18 16:01 135/72 03/30/18 15:58 75 15 03/30/18 15:58 75 15 96 03/30/18 15:56 114/74 03/30/18 15:53 81 12 126/93 97 03/30/18 15:53 79 12 03/30/18 08:30 Room Air 03/30/18 07:52 36.7 80 16 147/73 (97) 95 Room Air Notes Mental Status: alert / awake / arousable, participated in evaluation Pt Amnestic to Procedure: Yes Nausea / Vomiting: adequately controlled Pain: adequately controlled Airway Patency, RR, SpO2: stable & adequate BP & HR: stable & adequate Hydration State: stable & adequate Anesthetic Complications: no major complications apparent
[2018-03-30] MEDS: LACTATED RINGER'S 1000ML 1,000 ML IV SCH (17:17)
[2018-03-30 17:32] VITALS: BP 146/74; PULSE 73; TEMP 36.6; O2SAT 93
--- NOTE | 2018-03-30 17:39 | Progress Note ---
Internal Med Progress Note Date of Service: March 30, 2018. Provider Documentation: SUBJECTIVE: Seen and examined at bedside after ERCP Complains of abdominal pain, nausea Feels sleepy Denies chest pain, SOB, dizziness No other complaints OBJECTIVE: Vital Signs-as noted below Physical Exam: General Appearance:Moderately built and nourished, no apparent distress Head: normocephalic, Atraumatic Eyes: normal inspection, EOMI, PERRL Neck: supple, Trachea midline Respiratory/Chest: Normal breath sounds, CTA Cardiovascular: S1, S2, No murmur Abdomen/GI:Soft, epigastric tenderness, Bowel sounds present Extremities/Musculoskelatal:normal inspection, no edema Neurologic/Psych:AAOX3, grossly no focal neurological deficits Skin: normal color, warm Lab data as noted below. ASSESSMENT & PLAN: Patient is a 77 yr female with PMH of Asthma, COPD, Anxiety, HTN, HLD, DM II, chronic pancreatitis, h/o pancreatic cyst who presented to ER with complaint of abdominal pain for 1 day. Abdominal Pain likely secondary to Pancreatic divisum H/O Chronic Pancreatitis H/O EUS with FNA and ERCP with pancreatic stent placed by Dr. Mcfadden in 11/2017. S/P ERCP on 03/30/18: Stricture dilatation and pancreatic stone extraction CT ABD/pelvis:Pancreatic duct stent in place. No pancreatic ductal dilatation. No evidence of acute pancreatitis at this time. Findings consistent with chronic pancreatitis Clear liquid diet Continue Cipro 500 mg BID for 3 days Hold Plavix for 48 hours Needs repeat KUB in 1 month to eval for stent migration Appreciate GI Input Pain control PRN Bentyl Poorly Controlled DM II: Glucose 330 to ER. Beta hydroxybutyric acid 5.9. No anion gap. HA1c 9.3 on 01/26/18. Patient reports BSG at home 300-400's consistently. Patient with history difficult to control BSG in past hospitalizations with hypoglycemic episodes Continue ISS, NPH Glycemic pharmacist consulted CKD III Cr: 1.4 (baseline~1.3) resolved Monitor renal function Pseudohyponatremia: Na: 138 corrected for glucose of 332. monitor sodium levels HTN Initially hypertensive and then stable after pain control. Continue metoprolol, amlodipine, Losartan hold HCTZ Asthma/COPD No shortness of breath or chest pain or wheezing. Continue home inhalers and neb treatment as needed H/O CVA Continue ASA Plavix held for 48 hours as per GI recommendations Hold statin Anxiety: Continue Lorazepam as needed Continue Lexapro Peripheral Neuropathy: Continue gabapentin RLS / Insomnia: Continue trazodone and mirtazapine, ropinirole DVT Px: Heparin SQ Code Status: Full Code Disposition anticipate d/c home when medically stable Vital Signs: Date Time Temp Pulse Resp B/P (MAP) Pulse Ox O2 Delivery O2 Flow Rate FiO2 03/30/18 17:32 36.6 73 18 146/74 (98) 93 Room Air 03/30/18 16:53 74 18 94 03/30/18 16:53 74 18 03/30/18 16:51 158/87 03/30/18 16:48 73 19 03/30/18 16:48 74 19 95 03/30/18 16:47 147/81 03/30/18 16:43 72 19 96 03/30/18 16:43 74 19 03/30/18 16:42 73 10 03/30/18 16:42 36.3 73 16 138/63 (67) 98 Nasal Cannula 3 03/30/18 16:42 72 10 97 03/30/18 16:41 138/63 03/30/18 16:37 70 7 03/30/18 16:37 70 7 96 03/30/18 16:36 72 13 03/30/18 16:36 72 13 139/81 98 03/30/18 16:31 72 13 98 03/30/18 16:31 73 13 03/30/18 16:30 143/83 03/30/18 16:28 72 20 98 03/30/18 16:28 74 20 03/30/18 16:26 141/75 03/30/18 16:23 74 12 99 03/30/18 16:23 73 12 03/30/18 16:22 36.7 81 18 126/93 (103) 97 Oxymask 10 03/30/18 16:21 132/69 03/30/18 16:18 74 13 03/30/18 16:18 73 18 100 Mask 9.0 03/30/18 16:18 74 13 100 03/30/18 16:15 143/83 03/30/18 16:13 72 16 03/30/18 16:13 72 16 99 03/30/18 16:11 119/74 03/30/18 16:08 72 18 03/30/18 16:08 73 18 100 03/30/18 16:06 125/57 03/30/18 16:03 74 20 99 03/30/18 16:03 74 20 03/30/18 16:01 135/72 03/30/18 15:58 75 15 03/30/18 15:58 75 15 96 03/30/18 15:56 114/74 03/30/18 15:53 81 12 126/93 97 03/30/18 15:53 79 12 03/30/18 08:30 Room Air 03/30/18 07:52 36.7 80 16 147/73 (97) 95 Room Air 03/30/18 00:45 Nasal Cannula 2.0 03/30/18 00:11 36.9 72 20 150/63 (92) 97 Room Air Lab Results: Results Past 24 Hours Test 03/29/18 20:39 03/30/18 07:41 03/30/18 11:32 03/30/18 14:42 Range/Units Bedside Glucose 210 160 172 129 70-90 mg/dl Test 03/30/18 16:10 03/30/18 17:16 Range/Units Bedside Glucose 181 176 70-90 mg/dl
[2018-03-30] MEDS: TRAMADOL HCL 50 MG TAB PO PRN (18:19)
[2018-03-30 21:03] VITALS: BP 147/78
[2018-03-30] MEDS: ROPINIROLE HCL 1 MG TAB PO SCH (21:05)
[2018-03-30] MEDS: CIPROFLOXACIN 500 MG TAB PO SCH (21:07)
[2018-03-30] MEDS: MIRTAZAPINE TAB 15 MG TAB PO SCH (21:09)
[2018-03-30 22:51] VITALS: BP 129/69; PULSE 74; TEMP 36.6; O2SAT 93
[2018-03-31] MEDS: LACTATED RINGER'S 1000ML 1,000 ML IV SCH ×2 (00:26→09:10)
[2018-03-31] MEDS: TRAMADOL HCL 50 MG TAB PO PRN ×2 (05:19→16:12)
[2018-03-31] MEDS: HEPARIN SOD 5000 UNIT/0.5 ML CARP SQ SCH ×2 (05:19→14:11)
[2018-03-31 06:22] LABS: HEMATOCRIT 35.6 % (37-47); HEMOGLOBIN 12.5 g/dL (12.0-16.0); MEAN CELL VOLUME 87.3 fL (80-100); MEAN CORPUSCULAR HEMOGLOBIN 30.6 pg (25-34); MEAN CORPUSCULAR HGB CONC 35.1 g/dl (32-36); MEAN PLATELET VOLUME 9.1 fL (7.4-10.4); PLATELET COUNT 223 K/uL (130-400); RED CELL DISTRIBUTION WIDTH CV 13.7 % (11.5-14.5); RED CELL DISTRIBUTION WIDTH SD 43.6 fL (36.4-46.3); WHITE BLOOD COUNT 10.36 K/uL (4.8-10.8)
[2018-03-31 06:56] LABS: CALCIUM 8.3 mg/dl (8.5-10.1); CREATININE 1.32 mg/dl (0.60-1.20); POTASSIUM 4.4 mmol/L (3.5-5.1)
[2018-03-31 07:08] VITALS: BP 137/65; PULSE 68; TEMP 36.6; O2SAT 95
[2018-03-31] MEDS: AMLODIPINE BESYLATE 5 MG TAB PO SCH (08:06)
[2018-03-31] MEDS: PANCREAZE (LIPASE 4,200U) CAP PO SCH ×2 (08:06→11:58)
[2018-03-31] MEDS: RANITIDINE HCL 150 MG TAB PO SCH (08:06)
[2018-03-31] MEDS: PANTOprazole SOD 40 MG TAB PO SCH (08:06)
[2018-03-31] MEDS: MAGNESIUM OXIDE 400 MG TAB PO SCH (08:07)
[2018-03-31] MEDS: FLUTICASONE PROPIONATE NA SPR 16 GM BTL NAE SCH (08:07)
[2018-03-31] MEDS: METOPROLOL TARTRATE 50 MG TAB PO SCH (08:07)
[2018-03-31] MEDS: GABAPENTIN 400 MG CAP PO SCH (08:07)
[2018-03-31] MEDS: CIPROFLOXACIN 500 MG TAB PO SCH ×2 (08:07→16:12)
[2018-03-31] MEDS: LOSARTAN POTASSIUM 50 MG TAB PO SCH (08:07)
[2018-03-31] MEDS: ASPIRIN 81 MG ECTAB PO SCH (08:07)
[2018-03-31] MEDS: POLYETHYLENE (MIRALAX) 17 GM PACK PO SCH (08:08)
[2018-03-31] MEDS: INSULIN ASPART 100 UNITS/ML 3 ML PEN SC SCH ×2 (08:09→11:59)
[2018-03-31] MEDS: INSULIN HUMAN NPH SC SCH (08:10)
--- NOTE | 2018-03-31 09:23 | Gastroenterology Progress Note ---
Progress Note Date of Service: March 31, 2018 Subjective Pt evaluation today including: conversation w/ patient, physical exam Pt was seen and evaluated, chart reviewed. No acute events overnight. Is S/P ERCP yesterday for occluded stent. Notes some improvement of her symptoms. Does have mild upper abd pain today. No nausea, vomiting. Tolerated clear liquid diet well. No fever, chills, CP, SOB. Feels well enough to go home. Review of Systems Constitutional: No fever, No chills Respiratory: No cough, No shortness of breath Cardiac: No chest pain, No edema Abdomen: + pain (chronic upper abd), No nausea, No vomiting, No diarrhea Medications Current Inpatient Medications Medications (Trade) Dose Ordered Sig/Rosetta Route Start Time Stop Time Status Last Admin Dose Admin Heparin Sodium (Porcine) (Heparin Sq 5000 Unit/0.5ml) 5,000 unit Q8H SQ 03/26/18 22:00 04/25/18 21:59 03/31/18 05:19 5,000 UNIT Acetaminophen (Tylenol Tab) 650 mg Q4H PRN PO 03/26/18 15:45 04/25/18 15:44 03/29/18 11:17 650 MG Al Hydrox/Mg Hydrox/Simethicone (Maalox Max Susp) 15 ml Q4H PRN PO 03/26/18 15:45 04/25/18 15:44 Polyethylene (Miralax Powder Packet) 17 gm DAILY PRN PO 03/26/18 15:45 04/25/18 15:44 Ondansetron HCl (Zofran Inj) 4 mg Q6H PRN IV 03/26/18 15:45 04/25/18 15:44 03/27/18 09:20 4 MG Insulin Aspart (novoLOG ASPART) SLIDING SCALE If C... ACHS SC 03/26/18 18:45 04/25/18 18:44 03/31/18 08:09 18 UNITS Glucose (Glucose 40% Gel) 15-30 GRAMS 15 GRAMS... UD PRN PO 03/26/18 16:00 04/25/18 15:59 Glucose (Glucose Chew Tab) 4-8 Tablets 4 Tabl... UD PRN PO 03/26/18 16:00 04/25/18 15:59 Dextrose (Dextrose 50% 50ML Syringe) 25-50ML 25ML FOR ... UD PRN IV 03/26/18 16:00 04/25/18 15:59 Glucagon (Glucagon Inj) 1 mg UD PRN SQ 03/26/18 16:00 04/25/18 15:59 Carbohydrates (Carbohydrates For Hypoglycemia) 15-30 GRAMS 15 grams if BSG 54-69... UD PRN PO 03/26/18 16:00 04/25/18 15:59 Miscellaneous Information (Consult Glycemic Management Pharmacy) 1 ea UD PRN N/A 03/26/18 17:10 04/25/18 17:09 Albuterol (Ventolin Hfa Inhaler) 2 puffs Q4 PRN INH 03/26/18 16:15 04/25/18 16:14 Amlodipine Besylate (Norvasc Tab) 10 mg DAILY PO 03/27/18 09:00 04/26/18 08:59 03/31/18 08:06 10 MG Aspirin (Ecotrin Tab) 81 mg DAILY PO 03/27/18 09:00 04/26/18 08:59 03/31/18 08:07 81 MG Dicyclomine HCl (Bentyl Cap) 10 mg TID PRN PO 03/26/18 16:15 04/25/18 16:14 03/28/18 08:15 10 MG Docusate Sodium (coLACE CAP) 100 mg BID PRN PO 03/26/18 16:15 04/25/18 16:14 Escitalopram Oxalate (Lexapro Tab) 15 mg DAILY PO 03/27/18 09:00 04/26/18 08:59 Future Hold Fluticasone Propionate (Flonase Nasal [place]) 2 sprays DAILY JOSE MANUEL 03/27/18 09:00 04/26/18 08:59 03/31/18 08:07 2 SPRAYS Gabapentin (Neurontin Cap) 400 mg BID PO 03/26/18 21:00 04/25/18 20:59 03/31/18 08:07 400 MG Albuterol/ Ipratropium (Duoneb) 3 ml QID PRN INH 03/26/18 16:15 04/25/18 16:14 Lorazepam (Ativan Tab) 0.5 mg Q6H PRN PO 03/26/18 16:15 04/25/18 16:14 Future Hold Magnesium Oxide (Mag-Ox Tab) 400 mg QAM PO 03/27/18 09:00 04/26/18 08:59 03/31/18 08:07 400 MG Metoprolol Tartrate (Lopressor Tab) 50 mg BID PO 03/26/18 21:00 04/25/18 20:59 03/31/18 08:07 50 MG Pantoprazole Sodium (Protonix Tab) 40 mg DAILY PO 03/27/18 09:00 04/26/18 08:59 03/31/18 08:06 40 MG Ropinirole HCl (Requip Tab) 1 mg HS PO 03/26/18 21:00 04/25/18 20:59 03/30/18 21:05 1 MG Amylase/Lipase/ Protease (Pancreaze (Lipase 4,200U) Cap) 1 cap QID PO 03/26/18 21:00 04/25/18 20:59 03/31/18 08:06 1 CAP Trazodone HCl (Desyrel Tab) 50 mg HS PO 03/26/18 21:00 04/25/18 20:59 Future Hold Ranitidine HCl (zANTac TAB) 75 mg BID PO 03/26/18 21:00 04/25/18 20:59 03/31/18 08:06 75 MG Heparin Sodium (Porcine) (Heparin 100 Unit/ml 5ml Flush) 5 ml PRN PRN IV 03/26/18 18:15 04/25/18 18:14 03/30/18 11:50 5 ML Acetaminophen 650 mg/Empty Bag 65 ml @ 260 mls/hr Q6H PRN IV 03/26/18 18:30 04/25/18 18:29 Hydralazine HCl (HydrALAZINE INJ) 10 mg Q8 PRN IV. 03/26/18 18:30 04/25/18 18:29 Lorazepam 0.5 mg/ Syringe 0.5 ml @ 0.5 mls/min Q8 PRN IV 03/26/18 19:00 04/25/18 18:59 Mirtazapine (Remeron Tab) 30 mg HS PO 03/26/18 21:00 04/25/18 20:59 03/30/18 21:09 30 MG Polyethylene (Miralax Powder Packet) 17 gm BID PO 03/28/18 21:00 04/27/18 20:59 03/30/18 21:04 17 GM Clopidogrel Bisulfate (plAVix TAB) 75 mg QAM PO 03/29/18 09:00 04/28/18 08:59 Future hold 03/30/18 08:20 75 MG Insulin Human NPH (novoLIN-N NPH) 44 units BIDM SC 03/29/18 17:00 04/28/18 16:59 Future hold 03/31/18 08:10 44 UNITS Tramadol HCl (Ultram Tab) 50 mg Q8H PRN PO 03/29/18 17:15 04/28/18 17:14 03/31/18 05:19 50 MG Losartan Potassium (coZAAR TAB) 100 mg QAM PO 03/30/18 09:00 04/29/18 08:59 03/31/18 08:07 100 MG Ciprofloxacin (Cipro Tab) 500 mg BID PO 03/30/18 21:00 04/02/18 20:59 03/31/18 08:07 500 MG Lactated Ringer's 1,000 ml @ 125 mls/hr Q8H IV 03/30/18 16:00 03/31/18 12:00 03/31/18 09:10 125 MLS/HR Objective Vital Signs Date Time Temp Pulse Resp B/P (MAP) Pulse Ox O2 Delivery O2 Flow Rate FiO2 03/31/18 07:08 36.6 68 16 137/65 (89) 95 Room Air 03/31/18 00:00 Nasal Cannula 2.0 03/30/18 22:51 36.6 74 18 129/69 (89) 93 Room Air 03/30/18 21:03 147/78 (101) 03/30/18 17:32 36.6 73 18 146/74 (98) 93 Room Air 03/30/18 16:53 74 18 94 03/30/18 16:53 74 18 03/30/18 16:51 158/87 03/30/18 16:48 73 19 03/30/18 16:48 74 19 95 03/30/18 16:47 147/81 03/30/18 16:43 72 19 96 03/30/18 16:43 74 19 03/30/18 16:42 73 10 03/30/18 16:42 36.3 73 16 138/63 (67) 98 Nasal Cannula 3 03/30/18 16:42 72 10 97 03/30/18 16:41 138/63 03/30/18 16:37 70 7 03/30/18 16:37 70 7 96 03/30/18 16:36 72 13 03/30/18 16:36 72 13 139/81 98 03/30/18 16:31 72 13 98 03/30/18 16:31 73 13 03/30/18 16:30 143/83 03/30/18 16:28 72 20 98 03/30/18 16:28 74 20 03/30/18 16:26 141/75 03/30/18 16:23 74 12 99 03/30/18 16:23 73 12 03/30/18 16:22 36.7 81 18 126/93 (103) 97 Oxymask 10 03/30/18 16:21 132/69 03/30/18 16:18 74 13 03/30/18 16:18 73 18 100 Mask 9.0 03/30/18 16:18 74 13 100 03/30/18 16:15 143/83 03/30/18 16:13 72 16 03/30/18 16:13 72 16 99 03/30/18 16:11 119/74 03/30/18 16:08 72 18 03/30/18 16:08 73 18 100 03/30/18 16:06 125/57 03/30/18 16:03 74 20 99 03/30/18 16:03 74 20 03/30/18 16:01 135/72 03/30/18 16:00 Room Air 03/30/18 15:58 75 15 03/30/18 15:58 75 15 96 03/30/18 15:56 114/74 03/30/18 15:53 81 12 126/93 97 03/30/18 15:53 79 12 Physical Exam General Appearance: no apparent distress Eyes: PERRL ENT: hearing grossly normal Neck: supple, trachea midline Respiratory/Chest: lungs clear Cardiovascular: regular rate, rhythm Abdomen: soft, + tenderness (mild upper abd pain) Neurologic/Psych: alert, normal mood/affect, oriented x 3 Skin: normal color Laboratory Results Last 24 Hours Test 03/30/18 11:32 03/30/18 14:42 03/30/18 16:10 03/30/18 17:16 Bedside Glucose 172 mg/dl 129 mg/dl 181 mg/dl 176 mg/dl Test 03/30/18 18:46 03/30/18 20:31 03/31/18 05:39 03/31/18 07:19 Bedside Glucose 300 mg/dl 258 mg/dl 154 mg/dl White Blood Count 10.36 K/uL Red Blood Count 4.08 M/uL Hemoglobin 12.5 g/dL Hematocrit 35.6 % Mean Corpuscular Volume 87.3 fL Mean Corpuscular Hemoglobin 30.6 pg Mean Corpuscular Hemoglobin Concent 35.1 g/dl RDW Standard Deviation 43.6 fL RDW Coefficient of Variation 13.7 % Platelet Count 223 K/uL Mean Platelet Volume 9.1 fL Sodium Level 138 mmol/L Potassium Level 4.4 mmol/L Chloride Level 106 mmol/L Carbon Dioxide Level 26 mmol/L Anion Gap 6.0 mmol/L Blood Urea Nitrogen 24 mg/dl Creatinine 1.32 mg/dl Est Creatinine Clear Calc Drug Dose 31.7 ml/min Estimated GFR () 45.0 Estimated GFR (Non- 38.8 BUN/Creatinine Ratio 17.9 Random Glucose 156 mg/dl Calcium Level 8.3 mg/dl Magnesium Level 1.9 mg/dl Assessment and Plan 77 year old female w/ history of chronic pancreatitis w/o evidence of stent occlusion or acute inflammation on imaging though lipase is above her baseline. She is now S/P ERCP w/ evidence of occlusion and sludge. Pancreatic stent was placed with mild improvement of symptoms. She wants to go home. - Cipro 500 mg bid x 3 days - KUB in 4 weeks Late entry: Patient was seen and examine odn 03/31 with JOE Cantor whose note reflects our findings and plan.
--- NOTE | 2018-03-31 16:05 | Progress Note ---
Internal Med Progress Note Date of Service: March 31, 2018. Provider Documentation: SUBJECTIVE: Seen and examined at bedside Wants to get discharged Discussed with GI, OK to DC Abdominal pain better Denies chest pain, SOB, dizziness No other complaints OBJECTIVE: Vital Signs-as noted below Physical Exam: General Appearance:Moderately built and nourished, no apparent distress Head: normocephalic, Atraumatic Eyes: normal inspection, EOMI, PERRL Neck: supple, Trachea midline Respiratory/Chest: Normal breath sounds, CTA Cardiovascular: S1, S2, No murmur Abdomen/GI:Soft, epigastric tenderness, Bowel sounds present Extremities/Musculoskelatal:normal inspection, no edema Neurologic/Psych:AAOX3, grossly no focal neurological deficits Skin: normal color, warm Lab data as noted below. ASSESSMENT & PLAN: Patient is a 77 yr female with PMH of Asthma, COPD, Anxiety, HTN, HLD, DM II, chronic pancreatitis, h/o pancreatic cyst who presented to ER with complaint of abdominal pain for 1 day. Abdominal Pain likely secondary to Pancreatic divisum H/O Chronic Pancreatitis H/O EUS with FNA and ERCP with pancreatic stent placed by Dr. Mcfadden in 11/2017. S/P ERCP on 03/30/18: Stricture dilatation and pancreatic stone extraction CT ABD/pelvis:Pancreatic duct stent in place. No pancreatic ductal dilatation. No evidence of acute pancreatitis at this time. Findings consistent with chronic pancreatitis Clear liquid diet Continue Cipro 500 mg BID for 3 days: Day 1/3 Hold Plavix for 48 hours Needs repeat KUB in 1 month to eval for stent migration Appreciate GI Input Pain control PRN Bentyl Poorly Controlled DM II: Glucose 330 to ER. Beta hydroxybutyric acid 5.9. No anion gap. HA1c 9.3 on 01/26/18. Patient reports BSG at home 300-400's consistently. Patient with history difficult to control BSG in past hospitalizations with hypoglycemic episodes Continue ISS, NPH Glycemic pharmacist consulted CKD III Cr: 1.4 (baseline~1.3) resolved Monitor renal function Pseudohyponatremia: Na: 138 corrected for glucose of 332. monitor sodium levels HTN Initially hypertensive and then stable after pain control. Continue metoprolol, amlodipine, Losartan hold HCTZ Asthma/COPD No shortness of breath or chest pain or wheezing. Continue home inhalers and neb treatment as needed H/O CVA Continue ASA Plavix held for 48 hours as per GI recommendations Hold statin Anxiety: Continue Lorazepam as needed Continue Lexapro Peripheral Neuropathy: Continue gabapentin RLS / Insomnia: Continue trazodone and mirtazapine, ropinirole DVT Px: Heparin SQ Code Status: Full Code Disposition Plan to discharge home with Home Health today Follow up with your PCP Dr. Jefferson on 04/02/18 at 12:45pm Follow up with your Energy Systems Engineer in 3-4 weeks as advised Complete the antibiotics as prescribed Get KUB x ray in 4 weeks and follow up with your cuff turner Seek immediate medical attention if your symptoms reoccur or worsen Vital Signs: Date Time Temp Pulse Resp B/P (MAP) Pulse Ox O2 Delivery O2 Flow Rate FiO2 03/31/18 08:45 Room Air 03/31/18 07:08 36.6 68 16 137/65 (89) 95 Room Air 03/31/18 00:00 Nasal Cannula 2.0 03/30/18 22:51 36.6 74 18 129/69 (89) 93 Room Air 03/30/18 21:03 147/78 (101) 03/30/18 17:32 36.6 73 18 146/74 (98) 93 Room Air 03/30/18 16:53 74 18 94 03/30/18 16:53 74 18 03/30/18 16:51 158/87 03/30/18 16:48 73 19 03/30/18 16:48 74 19 95 03/30/18 16:47 147/81 03/30/18 16:43 72 19 96 03/30/18 16:43 74 19 03/30/18 16:42 73 10 03/30/18 16:42 36.3 73 16 138/63 (67) 98 Nasal Cannula 3 03/30/18 16:42 72 10 97 03/30/18 16:41 138/63 03/30/18 16:37 70 7 03/30/18 16:37 70 7 96 03/30/18 16:36 72 13 03/30/18 16:36 72 13 139/81 98 03/30/18 16:31 72 13 98 03/30/18 16:31 73 13 03/30/18 16:30 143/83 03/30/18 16:28 72 20 98 03/30/18 16:28 74 20 03/30/18 16:26 141/75 03/30/18 16:23 74 12 99 03/30/18 16:23 73 12 03/30/18 16:22 36.7 81 18 126/93 (103) 97 Oxymask 10 03/30/18 16:21 132/69 03/30/18 16:18 74 13 03/30/18 16:18 73 18 100 Mask 9.0 03/30/18 16:18 74 13 100 03/30/18 16:15 143/83 03/30/18 16:13 72 16 03/30/18 16:13 72 16 99 03/30/18 16:11 119/74 03/30/18 16:08 72 18 03/30/18 16:08 73 18 100 03/30/18 16:06 125/57 03/30/18 16:03 74 20 99 03/30/18 16:03 74 20 Lab Results: Results Past 24 Hours Test 03/30/18 16:10 03/30/18 17:16 03/30/18 18:46 03/30/18 20:31 Range/Units Bedside Glucose 181 176 300 258 70-90 mg/dl Test 03/31/18 05:39 03/31/18 07:19 03/31/18 11:27 Range/Units White Blood Count 10.36 4.8-10.8 K/uL Red Blood Count 4.08 4.2-5.4 M/uL Hemoglobin 12.5 12.0-16.0 g/dL Hematocrit 35.6 37-47 % Mean Corpuscular Volume 87.3 80-100 fL Mean Corpuscular Hemoglobin 30.6 25-34 pg Mean Corpuscular Hemoglobin Concent 35.1 32-36 g/dl RDW Standard Deviation 43.6 36.4-46.3 fL RDW Coefficient of Variation 13.7 11.5-14.5 % Platelet Count 223 130-400 K/uL Mean Platelet Volume 9.1 7.4-10.4 fL Sodium Level 138 136-145 mmol/L Potassium Level 4.4 3.5-5.1 mmol/L Chloride Level 106 98-107 mmol/L Carbon Dioxide Level 26 21-32 mmol/L Anion Gap 6.0 3-11 mmol/L Blood Urea Nitrogen 24 7-18 mg/dl Creatinine 1.32 0.60-1.20 mg/dl Est Creatinine Clear Calc Drug Dose 31.7 ml/min Estimated GFR () 45.0 Estimated GFR (Non- 38.8 BUN/Creatinine Ratio 17.9 10-20 Random Glucose 156 70-99 mg/dl Calcium Level 8.3 8.5-10.1 mg/dl Magnesium Level 1.9 1.8-2.4 mg/dl Bedside Glucose 154 131 70-90 mg/dl
[2018-03-31] MEDS ORDERED: ULT50X PO (16:08)
[2018-03-31] MEDS ORDERED: CPR500 PO (16:08)
[2018-03-31] MEDS ORDERED: CLOP1TAB15 PO (16:09)
--- NOTE | 2018-03-31 16:11 | Discharge Summary ---
Discharge Summary Date of Service March 31, 2018. Discharge Summary Admission Date: March 26, 2018 at 15:44 Discharge Date: March 31, 2018 Discharge Disposition: Home with services Principal Diagnosis: Chronic Pancreatitis Procedures: CT ABD: 1. Pancreatic duct stent in place. No pancreatic ductal dilatation. No evidence of acute pancreatitis at this time. Findings consistent with chronic pancreatitis. 2. Evidence of prior granulomatous infection. 3. Limited diverticulosis. No evidence of diverticulitis. 4. Osteonecrosis of the femoral heads, right greater than left. ERCP: Impression: - Patient with chornic pancreatitis likely related to P divisum. - Treated today with stricture dilation and pancreatic stone extraction - Prophylactic pancreatic stent placed Recommendation: - Return patient to [facility] for ongoing care. - Clear liquid diet today. - Use broad spectrum antibiotics for 3 days. - KUB in 1 month to evaluate for spontaneous stent passage - Hold plavix for 48 hours please. Consultations: GI Pending Studies/Follow-Up: Follow up with your PCP Dr. Jefferson on 04/02/18 at 12:45pm Follow up with your Electronic Test Technician in 3-4 weeks as advised Start taking Plavix after 48 hours from ERCP as advised Complete the antibiotics as prescribed Get KUB x ray in 4 weeks and follow up with your lead sustainability specialist Seek immediate medical attention if your symptoms reoccur or worsen Medication Reconciliation New Medications: Ciprofloxacin (Ciprofloxacin HCl) 500 Mg Tab 500 MG PO BID for 2 Days, #4 TAB Continued Medications: Albuterol Hfa (Ventolin Hfa) 200 Puffs/51228 Mcg Aers 2 PUFFS INH Q4 PRN for Cough Amlodipine (Norvasc) 10 Mg Tab 10 MG PO DAILY, TAB Aspirin (Aspirin Ec) 81 Mg Tab 81 MG PO DAILY Atorvastatin (Lipitor) 10 Mg Tab 10 MG PO DAILY, TAB Chlorthalidone (Hygroton) 25 Mg Tab 25 MG PO DAILY, TAB Clopidogrel (Plavix) 75 Mg Tab 75 MG PO DAILY, TAB Dicyclomine HCl (Dicyclomine HCl) 10 Mg Cap 10 MG PO TID PRN for abdominal cramping Docusate Sodium (Colace) 100 Mg Cap 100 MG PO BID PRN for Constipation Escitalopram (Lexapro) 10 Mg Tab 15 MG PO DAILY, TAB Fluticasone Propionate (Nasal) (Flonase Allergy Relief) 50 Mcg/Act Spr 2 SPRAYS JOSE MANUEL DAILY Gabapentin (Neurontin) 400 Mg Cap 400 MG PO BID, CAP AT BREAKFAST AND AT BEDTIME Insulin Human Regular (Humulin R) 100 Units/Ml Susp 24 UNITS SQ BID GIVE 24 UNITS AFTER LUNCH AND BEFORE BED Insulin Isophan/Regular (Novolin 70/30) Susp 85 UNITS SC BID, BTL GIVE BEFORE BREAKFAST AND BEFORE SUPPER Ipratropium-Albuterol (Duoneb) 3 Ml Nebu 1 TREATMENT INH QID PRN for SOB/Wheezing, INHA Lorazepam (Ativan) 0.5 Mg Tab 0.5 MG PO Q6H PRN for Anxiety, TAB Losartan Potassium (Cozaar) 100 Mg Tab 100 MG PO QAM, TAB Magnesium Oxide (Mag-Ox) 400 Mg Tab 400 MG PO QAM, TAB Metoprolol Tartrate (Lopressor) (Lopressor) 50 Mg Tab 50 MG PO BID, TAB Mirtazapine (Remeron) 30 Mg Tab 30 MG PO HS Pancrelipase (Lipase-Protease- (Creon) 1 Cap Cap 6000 UNITS PO QID Pantoprazole (Protonix) 40 Mg Tab 40 MG PO DAILY, #30 TAB Ranitidine HCl (Ranitidine 75) 75 Mg Tab 75 MG PO BID Ropinirole Hydrochloride (Requip) 1 Mg Tab 1 MG PO HS for 30 Days, TAB 2 Refills Trazodone Hcl (Trazodone) 50 Mg Tab 50 MG PO HS, TAB Admission Information HPI (per Admitting provider): Pt is 77 y/o F with PMH asthma, COPD, anxiety, HTN, HLD, DM II, chronic pancreatitis, h/o pancreatic cyst and others listed below who presented to ER with complaint of abdominal pain. Patient states has chronic left upper abdominal pain yesterday started with some increased left flank tenderness and today with increased left upper abdominal tenderness and nausea. Patient states this morning legs felt weak when trying to get out of bed. Denies falls. Reports was able to get herself back when she states she felt shaky all over. Denies known fever or chills. Denies vomiting or diarrhea. Last BM 2 days ago. She ate 2 pieces of toast and cup coffee for breakfast today and retained. Does not feel that caused any worsening abdominal pain. Patient also complaining of generalized headache and reports this always happens when she has pancreatitis. Patient with history of ERCP and pancreatic stent placement 11/[address] Mcfadden. Patient reports an approximately 1 month is to have stent removed. She states past day has been having intermittent cramps to bilateral calves. Denies diaphoresis, N/V/D/C, dizziness, syncope, vision changes, neck pain, CP, SOB, orthopnea, palpitations, cough, sore throat, choking, otalgia, rhinorrhea, paresthesias, extremity edema, rashes, urinary symptoms, weight loss. Physical Exam (per Admitting): General Appearance: WD/WN, no apparent distress Head: normocephalic, atraumatic Eyes: normal inspection, sclerae normal ENT: hearing grossly normal, pharynx normal, + pertinent finding (Mucous membranes dry) Neck: supple, no JVD, trachea midline Respiratory/Chest: lungs clear, normal breath sounds, no respiratory distress Cardiovascular: regular rate, rhythm, no murmur, normal peripheral pulses Abdomen/GI: normal bowel sounds, soft, + pertinent finding (Tenderness to palpation return, left upper quadrant without rebound.) Back: no CVA tenderness Extremities/Musculoskelatal: no calf tenderness, normal capillary refill, no pedal edema, normal range of motion Neurologic/Psych: alert, normal mood/affect, oriented x 3 Skin: normal color, warm/dry Hospital Course Patient is a 77 yr female with PMH of Asthma, COPD, Anxiety, HTN, HLD, DM II, chronic pancreatitis, h/o pancreatic cyst who presented to ER with complaint of abdominal pain for 1 day. Abdominal Pain likely secondary to Pancreatic divisum H/O Chronic Pancreatitis H/O EUS with FNA and ERCP with pancreatic stent placed by Dr. Mcfadden in 11/2017. S/P ERCP on 03/30/18: Stricture dilatation and pancreatic stone extraction CT ABD/pelvis:Pancreatic duct stent in place. No pancreatic ductal dilatation. No evidence of acute pancreatitis at this time. Findings consistent with chronic pancreatitis Clear liquid diet Continue Cipro 500 mg BID for 3 days: Day 1/3 Hold Plavix for 48 hours Needs repeat KUB in 1 month to eval for stent migration Appreciate GI Input Pain control PRN Bentyl Poorly Controlled DM II: Glucose 330 to ER. Beta hydroxybutyric acid 5.9. No anion gap. HA1c 9.3 on 01/26/18. Patient reports BSG at home 300-400's consistently. Patient with history difficult to control BSG in past hospitalizations with hypoglycemic episodes Continue ISS, NPH Glycemic pharmacist consulted CKD III Cr: 1.4 (baseline~1.3) resolved Monitor renal function Pseudohyponatremia: Na: 138 corrected for glucose of 332. monitor sodium levels HTN Initially hypertensive and then stable after pain control. Continue metoprolol, amlodipine, Losartan hold HCTZ Asthma/COPD No shortness of breath or chest pain or wheezing. Continue home inhalers and neb treatment as needed H/O CVA Continue ASA Plavix held for 48 hours as per GI recommendations Hold statin Anxiety: Continue Lorazepam as needed Continue Lexapro Peripheral Neuropathy: Continue gabapentin RLS / Insomnia: Continue trazodone and mirtazapine, ropinirole DVT Px: Heparin SQ Code Status: Full Code Disposition Plan to discharge home with Home Health today Follow up with your PCP Dr. Jefferson on 04/02/18 at 12:45pm Follow up with your Electronic Test Technician in 3-4 weeks as advised Complete the antibiotics as prescribed Get KUB x ray in 4 weeks and follow up with your lead sustainability specialist Seek immediate medical attention if your symptoms reoccur or worsen Total time spent on discharge = 36 minutes This includes examination of the patient, discharge planning, medication reconciliation, and communication with other providers. Discharge Instructions Discharge Instructions Date of Service March 31, 2018. Admission Reason for Admission: Abdominal Pain, Chronic Pancreatitis Discharge Discharge Diagnosis / Problem: Chronic Pancreatitis Discharge Goals Goal(s): Decrease discomfort, Improve function Activity Recommendations Activity Limitations: resume your previous activity Exercise/Sports Limitations: as tolerated . Instructions / Follow-Up Instructions / Follow-Up Follow up with your PCP Dr. Jefferson on 04/02/18 at 12:45pm Follow up with your Electronic Test Technician in 3-4 weeks as advised Start taking Plavix after 48 hours from ERCP as advised Complete the antibiotics as prescribed Get KUB x ray in 4 weeks and follow up with your lead sustainability specialist Seek immediate medical attention if your symptoms reoccur or worsen Current Hospital Diet Patient's current hospital diet: Diabetes Type 2 Diet, AHA Diet (Heart Healthy) Discharge Diet Recommended Diet: AHA Diet (Heart Healthy), Diabetes Type 2 Diet Procedures Procedures Performed: Endoscopic Retrograde Cholangiopancreatogram Pending Studies Studies pending at discharge: no Medical Emergencies . Who to Call and When: Medical Emergencies: If at any time you feel your situation is an emergency, please call 911 immediately. . Non-Emergent Contact Non-Emergency issues call your: Primary Care Provider, Electronic Test Technician Call Non-Emergent contact if: you have a fever, your pain is not controlled, your pain is worsening, your pain is unusual for you, your pain is concerning you, you have any medication questions . . "Provider Documentation" section prepared by Bud Pérez. . <Electronically signed by Bud Pérez MD> Signed: 03/31/18 [id number] Signed: The status of this report is Signed * If report status is Draft, the document has not been finalized by the responsible provider.
[2018-03-31 16:14] VITALS: BP 137/65; PULSE 68; TEMP 36.6; O2SAT 95
--- NOTE | 2018-03-31 16:44 | Progress Note ---
Progress Note Date of Service March 31, 2018. Progress Note Patient was upset at the time of discharge and demands a prescription of a bottle of Tramadol. Discussed the potential risks and advised that I could prescribe for a short period and she can follow up with PCP as scheduled in 2 days but patient refused pain medications as prescribed and requests to be just discharged. Discussed with GI, who are OK to DC from GI standpoint.
[2018-04-13] MEDS ORDERED: TRAM-10 PO (16:58)
== END 2018-03-31 16:31 | disposition home or self-care (01) | DRG 439 ==
LOC: C.EDB 11:58 → C.MS2W 15:44 → ENRESERV 16:02
PROVIDERS: ADMIT Hospitalist; ATTEND Internal Medicine
PROC: BF18YZZ Fluoroscopy of Pancreatic Ducts using Other Contrast (ICD-10-PCS; principal; 2018-03-30 07:30)
DX: K86.1 Other chronic pancreatitis (principal); N17.9 Acute kidney failure, unspecified; J45.909 Unspecified asthma, uncomplicated; J44.9 Chronic obstructive pulmonary disease, unspecified; F41.9 Anxiety disorder, unspecified; I10 Essential (primary) hypertension; E78.5 Hyperlipidemia, unspecified; E11.9 Type 2 diabetes mellitus without complications; Z83.3 Family history of diabetes mellitus; Z82.49 Family history of ischemic heart disease and other diseases of the circulatory system; Z87.891 Personal history of nicotine dependence; Z88.2 Allergy status to sulfonamides; Z88.6 Allergy status to analgesic agent; Z88.5 Allergy status to narcotic agent; Z79.82 Long term (current) use of aspirin; Z79.4 Long term (current) use of insulin; N18.3 Chronic kidney disease, stage 3 (moderate)

== ENCOUNTER 2018-04-07 00:03 | Inpatient (IN) | payer OTHER, MEDICARE ==
[~2018-04-07] VITALS: Ht 152.4 cm; Wt 72.3 kg
[~2018-04-07 00:03] MED LIST changes: +ASPI81TA28 PO; +ATOR10TA82 PO; -BUDE1SUS INH; +CPR500 PO; +ESCI10TA17 PO; +FLUT0.15 NAE; +INSHRIE SQ; -NVLG SQ; -OMEP40CA41 PO; +PANT40TA PO; -RANI150T85 PO; +RANI1TAB75 PO; -TRAM-10 PO
[2018-04-07] MEDS ORDERED: HYDROmorphone INJ 1 MG/ML SYR IV STA (00:25)
[2018-04-07] MEDS ORDERED: SODIUM CHLORIDE 0.9% 1000ML 1,000 ML IV STA (00:25)
[2018-04-07] MEDS ORDERED: HYDROmorphone INJ 1 MG/ML SYR IV PRN (00:30)
--- NOTE | 2018-04-07 00:32 | EMERGENCY ROOM VISIT NOTE ---
History Report prepared by Coral: Bryant Duval Under the Supervision of: Dr. Julius Henning M.D. First contact with patient: 00:05 Chief Complaint: ABDOMINAL PAIN Stated Complaint: ABDOMINAL PAIN Nursing Triage Summary: Pt c/o left abdominal and flank pain since this AM rating 7/10 on pain scale with emesis x1. Pt states she had surgery thursday on her pancreas where they discovered stones. Pt also states her BSG around 1730 was over 600 and took 84 units of regular insulin plus sceduled Lantus. Per EMS BSG was 235. History of Present Illness The patient is a 77 year old female who presents to the Emergency Room with complaints of constant, severe, epigastric abdominal pain beginning this morning. The patient states she had an ERCP last week and had a stone removed and a stent place. She reports she was given heparin shots while in the hospital. The patient notes she developed her abdominal pain in the morning and a fever of 100.4 degrees. She states he blood sugar glucose was over 600 this afternoon, so she took 84 units of regular insulin and her scheduled Lantus. The patient reports her symptoms radiate to her back and feel like her previous episodes of pancreatitis. She denies shortness of breath, chest pain, and taking pain medication daily. The patient notes she was told to try Tylenol, but it has not helped her symptoms. Source of History: patient Onset: this morning Position: abdomen (epigastric) Symptom Intensity: severe Timing: constant Associated Symptoms: + fevers (100.4), + back pain, No chest pain, No SOB Note: Associated symptoms: blood sugar glucose of over 600 Review of Systems See HPI for pertinent positives & negatives. A total of 10 systems reviewed and were otherwise negative. 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 (10) Depression (11) Diabetes mellitus type 2 (12) Diabetic neuropathy (13) Dyslipidemia (14) Esophageal dysmotility (15) Fatty liver (16) Gastroparesis (17) Giant cell arteritis (18) Insomnia (19) Pancreatic divisum (20) Sciatica (21) Sleep apnea Surgical Problems: (1) cataract surgery (2) H/O esophagogastroduodenoscopy (3) History of - tubal ligation (4) History of cholecystectomy (5) History of ERCP (6) S/P ERCP (7) S/P ERCP (8) S/P ERCP (9) S/p fixation of left ankle fracture Family History Diabetes mellitus GRANDMOTHER MOTHER FH: Parkinson's disease Hypertension Stroke GRANDFATHER Social History Smoking Status: Former Smoker Alcohol Use: none Drug Use: none Marital Status: Housing Status: lives alone Occupation Status: retired Current/Historical Medications Scheduled Amlodipine (Norvasc), 10 MG PO DAILY Aspirin (Aspirin Ec), 81 MG PO DAILY Atorvastatin (Lipitor), 10 MG PO DAILY Chlorthalidone (Hygroton), 25 MG PO DAILY Clopidogrel (Plavix), 75 MG PO DAILY Escitalopram (Lexapro), 15 MG PO DAILY Fluticasone Propionate (Nasal) (Flonase Allergy Relief), 2 SPRAYS JOSE MANUEL DAILY Gabapentin (Neurontin), 400 MG PO TID Insulin Human Regular (Humulin R), 24 UNITS SQ BID Insulin Isophan/Regular (Novolin 70/30), 85 UNITS SC BID Losartan Potassium (Cozaar), 100 MG PO QAM Magnesium Oxide (Mag-Ox), 400 MG PO QAM Metoprolol Tartrate (Lopressor) (Lopressor), 50 MG PO BID Mirtazapine (Remeron), 30 MG PO HS Mometasone Furoate-Formoterol (Dulera 200/5 Mcg), 2 PUFFS INH BID Pancrelipase (Lipase-Protease- (Creon), 6,000 UNITS PO QID Pantoprazole (Protonix), 40 MG PO DAILY Ranitidine HCl (Ranitidine 75), 75 MG PO BID Ropinirole Hydrochloride (Requip), 1 MG PO HS Trazodone Hcl (Trazodone), 50 MG PO HS Scheduled PRN Albuterol Hfa (Ventolin Hfa), 2 PUFFS INH Q4 PRN for Cough Dicyclomine HCl (Dicyclomine HCl), 10 MG PO TID PRN for abdominal cramping Docusate Sodium (Colace), 100 MG PO BID PRN for Constipation Ipratropium-Albuterol (Duoneb), 1 TREATMENT INH QID PRN for SOB/Wheezing Lorazepam (Ativan), 0.5 MG PO Q6H PRN for Anxiety Allergies Coded Allergies: Iodinated Diagnostic Agents (Verified Allergy, Severe, RASH TO IVP DYE, NAUSEA, FAINTING, COUGHING, GAGGING, HEADACH, 04/07/18) Sulfa Antibiotics (Verified Allergy, Severe, HIVES, FACIAL AND ARM SWELLING, 04/07/18) Cerivastatin (Verified Allergy, Intermediate, HIVES, 04/07/18) Codeine (Verified Allergy, Intermediate, "PRICKLY RASH", 04/07/18) Hydroxyzine (Verified Allergy, Intermediate, N/V, 04/07/18) Latex1 -Allergic Contact Dermititis (Verified Allergy, Intermediate, DERMATITIS-PT TOLERATED A LATEX CATHETER 03/26/08, 04/07/18) Diphenhydramine (Verified Allergy, Mild, RASH; SLEEPINESS WITH "PHARBEDRYL ", 04/07/18) Loratadine (Verified Allergy, Mild, HIVES, 04/07/18) Sulfamethoxazole w/Trimethoprim (Verified Allergy, Mild, RASH, 04/07/18) Prednisone (Verified Allergy, Unknown, unknown, 04/07/18) Tetanus Toxoid (Verified Adverse Reaction, Intermediate, SWELLING AT INJECTION SITE, 04/07/18) Alprazolam (Verified Adverse Reaction, Unknown, "SLEEPY STUPER", 04/07/18) Metformin (Verified Adverse Reaction, Unknown, DIARRHEA, 04/07/18) Morphine (Verified Adverse Reaction, Unknown, VOMITING, 04/07/18) Simvastatin (Verified Adverse Reaction, Unknown, COUGH, "DISCOMFORT", 04/07) Physical Exam Vital Signs Date Time Temp Pulse Resp B/P (MAP) Pulse Ox O2 Delivery O2 Flow Rate FiO2 04/07/18 04:12 64 18 172/80 95 04/07/18 03:54 36.3 67 18 183/81 98 Room Air 04/07/18 03:00 64 18 105/68 94 Room Air 04/07/18 00:59 69 18 144/73 97 Room Air 04/07/18 00:07 76 04/07/18 00:04 37.0 75 18 172/104 97 Room Air Physical Exam GENERAL: Patient is uncomfortable appearing and in moderate/severe distress. EYES: No scleral icterus, unremarkable pupils. ENT: Mucous membranes moist, no nasal congestion. NECK: No masses appreciated, no meningismus, trachea is midline. RESPIRATORY: No dyspnea. Clear to auscultation and equal bilaterally. No wheeze , no rhonchi. CARDIOVASCULAR: Regular rate and rhythm. No murmurs, rubs, gallops appreciated. GASTROINTESTINAL: Abdomen soft, exquisite tenderness to palpation over the epigastrium, no peritonitis throughout the abdomen. Bowel sounds positive. No masses appreciated. Bruising of the lower abdomen, consistent with injections. BACK: No midline tenderness, no CVA tenderness EXTREMITIES: Normal motion all extremities, no cyanosis, no edema. NEUROLOGIC: Alert and oriented, no acute motor or sensory deficits, no focal weakness, cranial nerves grossly intact. SKIN: No rash, no jaundice, no diaphoresis. Medical Decision & Procedures ER Provider Diagnostic Interpretation: Stat Rad Radiology results and stated below per my review and radiologist interpretation: CT ABDOMEN & PELVIS Without Contrast: Peripancreatic fat stranding suggesting acute pancreatitis No fluid collection Radiologist: Weston Chand MD Laboratory Results 04/07/18 00:47 Red Blood Count 4.40, Mean Corpuscular Volume 86.6, Mean Corpuscular Hemoglobin 31.4, Mean Corpuscular Hemoglobin Concent 36.2, Mean Platelet Volume 9.1, Neutrophils (%) (Auto) 67.5, Lymphocytes (%) (Auto) 19.3, Monocytes (%) (Auto) 8.3, Eosinophils (%) (Auto) 3.8, Basophils (%) (Auto) 0.6, Neutrophils # (Auto) 13.53, Lymphocytes # (Auto) 3.86, Monocytes # (Auto) 1.66, Eosinophils # (Auto) 0.75, Basophils # (Auto) 0.11 04/07/18 00:47 Test 04/07/18 00:14 04/07/18 00:47 04/07/18 00:48 04/07/18 01:20 Bedside Glucose 217 mg/dl (70-90) White Blood Count 20.00 K/uL (4.8-10.8) Red Blood Count 4.40 M/uL (4.2-5.4) Hemoglobin 13.8 g/dL (12.0-16.0) Hematocrit 38.1 % (37-47) Mean Corpuscular Volume 86.6 fL (80-100) Mean Corpuscular Hemoglobin 31.4 pg (25-34) Mean Corpuscular Hemoglobin Concent 36.2 g/dl (32-36) Platelet Count 222 K/uL (130-400) Mean Platelet Volume 9.1 fL (7.4-10.4) Neutrophils (%) (Auto) 67.5 % Lymphocytes (%) (Auto) 19.3 % Monocytes (%) (Auto) 8.3 % Eosinophils (%) (Auto) 3.8 % Basophils (%) (Auto) 0.6 % Neutrophils # (Auto) 13.53 K/uL (1.4-6.5) Lymphocytes # (Auto) 3.86 K/uL (1.2-3.4) Monocytes # (Auto) 1.66 K/uL (0.11-0.59) Eosinophils # (Auto) 0.75 K/uL (0-0.5) Basophils # (Auto) 0.11 K/uL (0-0.2) RDW Standard Deviation 43.0 fL (36.4-46.3) RDW Coefficient of Variation 13.6 % (11.5-14.5) Immature Granulocyte % (Auto) 0.5 % Immature Granulocyte # (Auto) 0.09 K/uL (0.00-0.02) Anion Gap 7.0 mmol/L (3-11) Est Creatinine Clear Calc Drug Dose 28.3 ml/min Estimated GFR () 40.5 Estimated GFR (Non- 34.9 BUN/Creatinine Ratio 15.7 (10-20) Bedside Lactic Acid Venous 1.98 mmol/L (0.90-1.70) Calcium Level 8.8 mg/dl (8.5-10.1) Magnesium Level 1.8 mg/dl (1.8-2.4) Total Bilirubin 0.5 mg/dl (0.2-1) Direct Bilirubin < 0.1 mg/dl (0-0.2) Aspartate Amino Transf (AST/SGOT) 27 U/L (15-37) Alanine Aminotransferase (ALT/SGPT) 38 U/L (12-78) Alkaline Phosphatase 93 U/L (45-117) Troponin I < 0.015 ng/ml (0-0.045) Total Protein 7.5 gm/dl (6.4-8.2) Albumin 3.3 gm/dl (3.4-5.0) Lipase 6382 U/L (73-393) Procalcitonin 1.02 ng/ml (0-0.5) Urine Color YELLOW Urine Appearance CLEAR (CLEAR) Urine pH 6.5 (4.5-7.5) Urine Specific [place] 1.023 (1.000-1.030) Urine Protein TRACE (NEG) Urine Glucose (UA) 3+ (NEG) Urine Ketones NEG (NEG) Urine Occult Blood NEG (NEG) Urine Nitrite NEG (NEG) Urine Bilirubin NEG (NEG) Urine Urobilinogen NEG (NEG) Urine Leukocyte Esterase SMALL (NEG) Urine WBC (Auto) 10-30 /hpf (0-5) Urine RBC (Auto) 0-4 /hpf (0-4) Urine Hyaline Casts (Auto) 1-5 /lpf (0-5) Urine Epithelial Cells (Auto) >30 /lpf (0-5) Urine Bacteria (Auto) NEG (NEG) Test 04/07/18 03:27 Lactic Acid Level 1.2 mmol/L (0.4-2.0) Laboratory results as reviewed by me. Medications Administered Medications (Trade) Dose Ordered Sig/Rosetta Route Start Time Stop Time Status Last Admin Dose Admin Hydromorphone HCl (Dilaudid Inj) 1 mg NOW STAT IV 04/07/18 00:25 04/07/18 00:27 DC 04/07/18 00:58 1 MG Hydromorphone HCl (Dilaudid Inj) 1 mg Q15M PRN IV 04/07/18 00:30 04/21/18 00:29 04/07/18 02:13 1 MG Sodium Chloride 1,000 ml @ 75 mls/hr [id number] STAT IV 04/07/18 00:25 04/07/18 02:36 DC 04/07/18 00:58 75 MLS/HR Sodium Chloride 500 ml @ 999 mls/hr Q31M STAT IV 04/07/18 01:30 04/07/18 02:00 DC 04/07/18 01:52 999 MLS/HR Cefoxitin Sodium (Mefoxin 2000mg/ 60 ml D5W) 2,000 mg NOW STAT IV 04/07/18 01:54 04/07/18 01:55 DC 04/07/18 02:09 2,000 MG Lactated Ringer's 1,000 ml @ 125 mls/hr Q8H IV 04/07/18 02:45 05/07/18 02:44 04/07/18 03:23 100 MLS/HR ED Course 0020: The patient was evaluated in room A10. A complete history and physical exam was performed. 0114: I reevaluated the patient. She is feeling comfortable and much better. 0203: Upon reevaluation, the patient is comfortable. Discussed results and treatment plan with the patient. She verbalized understanding and agreement with the treatment plan. The patient will be evaluated for further management. 0208: I [facility] the [facility] The patient will be evaluated for further management and care. Medical Decision Differential: Pancreatitis, Ascending Cholangitis, Hepatic Disfunction, Gastritis/PUD, sepsis, amongst other pathologies entertained. 77 yr old female with recurrent pancreatitis and recent ERCP arrives for evaluation of epigastric pain radiating to back though with reported fevers at home. Blood cultures/LA obtained. Moderate WBC elevation with mild LA elevation thus small fluid bolus plus empiric Mefoxin. Dilaudid for pain control with good result. Lipase elevated consistent with pancreatitis. Given recent procedure felt that imaging indicated which was consistent with pancreatitis. No current evidence of cholangitis as normal LFTs. Will come in to hospitalist for further evaluation/treatment. Stable without evidence of septic shock at this time. Medication Reconcilliation Current Medication List: was personally reviewed by me Blood Pressure Screening Patient's blood pressure: Elevated blood pressure Blood pressure disposition: Elevated BP felt to be situational Consults Time Called: 0201 Consulting Physician: [facility] Returned Call: [phone] I discussed the patient's case with [facility]. The patient will be evaluated for further management and care. Impression Primary Impression: Pancreatitis Additional Impression: Leukocytosis Scribe Attestation The scribe's documentation has been prepared under my direction and personally reviewed by me in its entirety. I confirm that the note above accurately reflects all work, treatment, procedures, and medical decision making performed by me. Departure Information Dispostion Being Evaluated By Hospitalist Referrals Colleen Jefferson D.O. (PCP) Patient Instructions My [facility] Problem Qualifiers
[2018-04-07 01:28] LABS: ALBUMIN 3.3 gm/dl (3.4-5.0); ALT/SGPT 38 U/L (12-78); AST/SGOT 27 U/L (15-37); BLOOD UREA NITROGEN 23 mg/dl (7-18); CALCIUM 8.8 mg/dl (8.5-10.1); CARBON DIOXIDE 24 mmol/L (21-32); CREATININE 1.44 mg/dl (0.60-1.20); GLUCOSE 193 mg/dl (70-99); POTASSIUM 3.5 mmol/L (3.5-5.1); SODIUM 135 mmol/L (136-145)
[2018-04-07] MEDS ORDERED: SODIUM CHLORIDE 0.9% 500ML 500 ML IV STA (01:30)
[2018-04-07 01:31] LABS: ALKALINE PHOSPHATASE 93 U/L (45-117); LIPASE 6382 U/L (73-393); TOTAL PROTEIN 7.5 gm/dl (6.4-8.2)
[2018-04-07 01:36] LABS: BASO % 0.6 %; BASO ABS # 0.11 K/uL (0-0.2); EOS % 3.8 %; EOS ABS # 0.75 K/uL (0-0.5); HEMATOCRIT 38.1 % (37-47); HEMOGLOBIN 13.8 g/dL (12.0-16.0); IG# 0.09 K/uL (0.00-0.02); LYMPH % 19.3 %; LYMPH ABS # 3.86 K/uL (1.2-3.4); MEAN CELL VOLUME 86.6 fL (80-100); MEAN CORPUSCULAR HEMOGLOBIN 31.4 pg (25-34); MEAN CORPUSCULAR HGB CONC 36.2 g/dl (32-36); MEAN PLATELET VOLUME 9.1 fL (7.4-10.4); MONO % 8.3 %; MONO ABS # 1.66 K/uL (0.11-0.59); NEUT % 67.5 %; NEUT ABS # 13.53 K/uL (1.4-6.5); PLATELET COUNT 222 K/uL (130-400); RED CELL DISTRIBUTION WIDTH CV 13.6 % (11.5-14.5)
[2018-04-07] MEDS ORDERED: MOME200A INH (01:46)
[2018-04-07] MEDS ORDERED: CEFOXITIN 2000MG/60 ML D5W IV STA (01:54)
[2018-04-07] MEDS: LACTATED RINGER'S 1000ML 1,000 ML IV SCH ×3 (03:23→19:31)
[2018-04-07 03:54] VITALS: BP 183/81; PULSE 67; TEMP 36.3; O2SAT 98; BMI 31.1
[2018-04-07] MEDS ORDERED: INSULIN ASPART 100 UNITS/ML 3 ML PEN SC ONE (04:02)
[2018-04-07] MEDS ORDERED: GLUCOSE 40% GEL 15 GM TUBE PO PRN (04:15)
[2018-04-07] MEDS ORDERED: LORAZEPAM 0.5 MG TAB PO PRN (04:15)
[2018-04-07] MEDS ORDERED: DICYCLOMINE HCL 10 MG CAP PO PRN (04:15)
[2018-04-07] MEDS ORDERED: CARBOHYDRATES FOR HYPOGLYCEMIA PO PRN (04:15)
[2018-04-07] MEDS ORDERED: GLUCAGON FOR INJ 1 MG VIAL SQ PRN (04:15)
[2018-04-07] MEDS ORDERED: PROCHLORPERAZINE INJ 5 MG in SYRINGE 4 ML IV PRN (04:15)
[2018-04-07] MEDS ORDERED: GLUCOSE 10 TABS/TUBE PO PRN (04:15)
[2018-04-07] MEDS ORDERED: DEXTROSE 50% 50 ML SYR IV PRN (04:15)
[2018-04-07] MEDS ORDERED: ACETAMINOPHEN 325 MG TAB PO PRN (04:15)
[2018-04-07] MEDS ORDERED: DOCUSATE SODIUM 100 MG CAP PO PRN (04:15)
[2018-04-07] MEDS ORDERED: HYDROmorphone INJ 0.5 MG/0.5 ML SYR IV PRN (04:15)
[2018-04-07] MEDS: HEPARIN SOD 5000 UNIT/0.5 ML CARP SQ SCH ×3 (06:26→21:21)
[2018-04-07] MEDS: TRAMADOL HCL 50 MG TAB PO PRN ×2 (06:31→14:04)
--- NOTE | 2018-04-07 07:09 | HISTORY & PHYSICAL EXAMINATION ---
DATE OF ADMISSION: 04/07/2018 CHIEF COMPLAINT: Abdominal pain. HISTORY OF PRESENT ILLNESS: History obtained from the patient and records. Medical history, significant for recurrent pancreatitis, history of pancreatic divisum, hypertension, hyperlipidemia, DM2 insulin requiring, past tobacco abuse, mood and anxiety disorder, history of CVA, hx PVD, CRI (baseline creatinine 1.3). Recent confinement last week for recurrent pancreatitis. Patient underwent ERCP, stricture dilatation, stone extraction. Patient comfortable on discharge. Last few days, patient noted achy left upper quadrant pain going to her epigastrium with nausea, emesis, good bowel movement. Episodes similar to pancreatitis attacks. Patient seen at PCP's office last week. Outpatient lab work showed a lipase 100. Patient brought to Emergency Room for worsening symptoms, Low-grade fever at home, no cough, no chest pain, no SOB, no bladder symptoms. Denies alcohol intake. At the Emergency Room, patient received Cefoxitin. Patient noted to be drowsy after being given IV Dilaudid at the ER. MEDICAL HISTORY: As above. SURGERIES: She has had cholecystectomy, cataract surgery, ankle surgery. HOME MEDICATIONS: Include albuterol, aspirin, Lipitor, Norvasc, Hygroton, gabapentin, Plavix, Colace, dicyclomine, Lexapro, Flonase, DuoNeb, Humulin, Novolin, Ativan, Cozaar, Remeron, Dulera, magnesium oxide, Lopressor, pancrelipase, Protonix, Requip, ranitidine, trazodone. ALLERGIES: ALLERGIC TO LATEX, CODEINE, DIPHENHYDRAMINE, HYDROXYZINE, MORPHINE, PREDNISONE, TETANUS TOXOID, BACTRIM, ALPRAZOLAM, LORATADINE, METFORMIN, SIMVASTATIN, ATORVASTATIN, SULFA, DYE. FAMILY HISTORY: Hypertension, heart disease. PERSONAL AND SOCIAL HISTORY: Past drug abuse. No ETOH intake. 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 REVIEW OF SYSTEMS: As per HPI. All 10 systems reviewed, all other ROS negative. PHYSICAL EXAMINATION: VITAL SIGNS: At this time blood pressure was noted to be 144/70, pulse 89, RR 18, temperature 37, sats 98. GENERAL: Uncomfortable, drowsy, in no respiratory distress. Obese. SKIN: Normal color, warm. HEENT: [place] palpebral conjunctivae, no ptosis, dry oral mucosa. NECK: Short neck. Supple. CHEST: Decreased breath sounds. No tenderness. HEART: Regular rate and rhythm, no murmur. ABDOMEN: Distended. LUQ tenderness. EXTREMITIES: min LE edema, no tenderness, no other gross deformities. NEUROLOGIC: Lethargic. No facial asymmetry. No other gross focality. LABS: Hemoglobin was noted to be 13.8, WBC 20, platelets 222. Sodium 135, potassium 3.5, chloride 104, CO2 is 24, creatinine 1.4, glucose 193, lipase 6.382. Hemoglobin A1c in January 2018, was 9.3. CT abdomen and pelvis initial read pancreatitis. UA WBC est, epithelial cells, hyaline casts. ASSESSMENT: 1. Recurrent pancreatitis hx pancreatic divisum recent ERCP. 2. Hypertension, stable. 3. Hx CVA/PVD as per records. 4. DM2, insulin requiring suboptimal control as of recent outpatient hemoglobin A1c 5. Chronic renal insufficiency. Creatinine at baseline. 6. past tobacco abuse. PLAN: GMF analgesia, IV fluids. Bowel rest. GI consult. RE Recurrent pancreatitis (Patient known to Dr. Mcfadden.) Basal insulin adjusted for NPO/sips state for now. ISS BG goal 140-180. DVT prophylaxis Heparin subQ. Full code. MTDD
[2018-04-07 07:26] VITALS: BP 107/64; PULSE 66; TEMP 36.3; O2SAT 97
[2018-04-07] MEDS: DULERA~ORDER AWAITING ACTION SCH ×3 (08:00→23:37)
--- NOTE | 2018-04-07 08:18 | DIAGNOSTIC IMAGING REPORT ---
ABD/PELVIS WITHOUT FOR STONE CLINICAL HISTORY: 77 years-old Female presenting with severe epigastric to back pain s/p ECRP with panc stent. TECHNIQUE: Multidetector CT of the abdomen and pelvis was performed without the use of intravenous contrast. IV contrast: None. A dose lowering technique was used consistent with the principles of ALARA (as low as reasonably achievable). COMPARISON: 03/26/2018. CT DOSE (mGy.cm): The estimated cumulative dose is 512.67 mGy.cm. FINDINGS: Manager Case topogram: Cholecystectomy clips. Lung bases: Minimal basilar opacities, likely atelectasis. Multichamber enlargement of the heart. Coronary artery, aortic valve, and mitral annular calcification. No pericardial or pleural effusion. Liver: Normal morphology. Density consistent with hepatic steatosis. Parenchymal calcification suggest prior granulomatous infection. Biliary: No gross biliary ductal dilatation allowing for noncontrast technique. Gallbladder surgically absent. Pancreas: The pancreatic duct stent is no longer in place. Interval development of peripancreatic and intrapancreatic fat stranding consistent with edema and inflammatory change. Coarse parenchymal calcifications again noted. No parenchymal or peripancreatic fluid collection. Cystic change in the uncinate process is stable. Fascial thickening along the dorsum of the pancreas is new from prior. Spleen: Parenchymal calcifications likely indicate prior granulomatous infection. Adrenal glands: Normal. Kidneys and ureters: Normal noncontrast appearance. No nephrolithiasis. No hydronephrosis. Normal ureters. Bladder: Normal. Pelvic organs: Normal noncontrast appearance. Bowel: Limited diverticulosis of the sigmoid colon. No wall thickening or pericolonic fat infiltration. Mild stool burden. The appendix is normal. Lipomatous hypertrophy of the ileocecal valve. No bowel obstruction. Small hiatal hernia. The pancreatic stent is not visualized. Peritoneal cavity: No free fluid or intraperitoneal gas. Lymph nodes: Enlarged peripancreatic lymph nodes, slightly more prominent on the current exam and likely reactive. Vasculature: Atherosclerosis of the normal caliber abdominal aorta. Abdominal wall: Foci of gas in the left anterior abdominal wall likely related to medication administration. Musculoskeletal: Degenerative changes of the spine. Redemonstration of geographic sclerosis in the femoral heads, right greater than left, indicating osteonecrosis. No cortical collapse. IMPRESSION: 1. Findings consistent with interstitial edematous pancreatitis. This represents acute on chronic pancreatitis. The pancreatic duct stent is no longer in place and not visualized within the abdomen and pelvis, presumably removed or passed. No acute peripancreatic fluid collection. 2. Reactive peripancreatic lymph nodes. 3. Evidence of prior granulomatous infection. 4. Hepatic steatosis. 5. Osteonecrosis of the femoral heads, right greater than left. Electronically signed by: Paul Coronado M.D. 04/07/2018 8:17 AM Dictated Date/Time: 04/07/2018 6:56 AM
[2018-04-07] MEDS: FLUTICASONE PROPIONATE NA SPR 16 GM BTL NAE SCH (09:15)
[2018-04-07] MEDS: GABAPENTIN 400 MG CAP PO SCH ×3 (09:16→19:34)
[2018-04-07] MEDS: CLOPIDOGREL BISULFATE 75 MG TAB PO SCH (09:16)
[2018-04-07] MEDS: ASPIRIN 81 MG ECTAB PO SCH (09:17)
[2018-04-07] MEDS: LOSARTAN POTASSIUM 50 MG TAB PO SCH (09:17)
[2018-04-07] MEDS: RANITIDINE HCL 150 MG TAB PO SCH ×2 (09:18→19:34)
[2018-04-07] MEDS: METOPROLOL TARTRATE 50 MG TAB PO SCH ×2 (09:18→19:34)
[2018-04-07] MEDS: PANTOprazole SOD 40 MG TAB PO SCH (09:19)
[2018-04-07] MEDS: ESCITALOPRAM OXALATE 10 MG TAB PO SCH (09:19)
[2018-04-07] MEDS: AMLODIPINE BESYLATE 5 MG TAB PO SCH (09:20)
[2018-04-07] MEDS: INSULIN GLARGINE SOLOSTAR 100 UNITS/ML 3 ML PEN SC SCH ×2 (09:29→21:21)
[2018-04-07 10:13] LABS: CALCIUM 8.6 mg/dl (8.5-10.1); CREATININE 1.31 mg/dl (0.60-1.20); POTASSIUM 3.7 mmol/L (3.5-5.1)
[2018-04-07] MEDS: INSULIN ASPART 100 UNITS/ML 3 ML PEN SC SCH ×2 (11:00→16:30)
[2018-04-07 11:23] VITALS: Ht 152.4 cm; Wt 72.3 kg
[2018-04-07 12:16] VITALS: BP 132/69; PULSE 60; O2SAT 96
--- NOTE | 2018-04-07 13:11 | Gastrointestinal Consultation ---
Gastrointestinal Consultation Date of Consultation: April 07, 2018 Attending Physician: Dr. Conrad Consulting Physician: Dr. Ramos Reason for Consultation: Pancreatitis History of Present Illness Patient is a 77 year old female patient of Dr. Jefferson with a hx of CVA, aortic stenosis, HTN, DM-2, pancreatic divisum S/P post multiple ERCP, most recently on 04/30/17 with sweeping of pancreas duct stones and pancreatic stent placement for pancreatic duct stricture by Dr. Meche Mcfadden. Initially she did well after the procedure but began with epigastric pain, radiating around the left side on 04/02/18. She presented to the ED yesterday when the pain worsened, and she noticed a fever of 100.4 and high BS. On arrival, lipase was >6000 (today 1999), WBC was 20, LFTs were normal, CT with pancreatitis and recently placed pancreatic stent no longer longer visible. ERCP 03/30/18: One 5 Fr by 9 cm pancreatic stent with a full external pigtail and no internal flaps was placed 9 cm into the dorsal pancreatic duct. Clear fluid flowed through the stent. The stent was in good position. The endoscope was withdrawn from the patient. - Patient with chronic pancreatitis likely related to P divisum. - Treated today with stricture dilation and pancreatic stone extraction - Prophylactic pancreatic stent placed Past Medical/Surgical History Medical Problems: (1) Acute bronchitis Status: Acute (2) Acute bronchitis Status: Acute (3) Asthma exacerbation Status: Acute (4) Back pain Status: Acute (5) COPD exacerbation Status: Acute (6) Cough Status: Acute (7) Dehydration Status: Acute (8) Epigastric abdominal pain Status: Acute (9) Headache Status: Acute (10) HTN (hypertension) Status: Acute (11) Hyperglycemia Status: Acute (12) Influenza B Status: Acute (13) Leukocytosis Status: Acute (14) Low back pain Status: Acute (15) Pancreatitis Status: Acute (16) Pancreatitis Status: Acute (17) Pancreatitis Status: Acute (18) Pancreatitis Status: Acute (19) Right thigh pain Status: Acute (20) Signs and symptoms of severe respiratory distress Status: Acute (21) SIRS (systemic inflammatory response syndrome) Status: Acute (22) SOB (shortness of breath) Status: Acute (23) Stroke Status: Acute (24) Swelling of right upper extremity Status: Acute (25) Upper abdominal pain Status: Acute (26) UTI (urinary tract infection) Status: Acute (27) Weakness Status: Acute Past Medical History: 1. HTn 2. DM-2 3. Chronic pancreatitis (hx of ETOH and pancreatic divisum). 4. Aortic stenosis 5. Asthma 6. COPD Past Surgical History: 1. Mulitple ERCPs, most recently 03/30/18 2. Cholecystectomy 3. Eye laser surgery 4. Tubal Ligation Family History Diabetes mellitus GRANDMOTHER MOTHER FH: Parkinson's disease Hypertension Stroke GRANDFATHER Social History Smoking Status: Former Smoker Alcohol Use: none Drug Use: none Marital Status: Housing Status: lives alone Occupation Status: retired Allergies Coded Allergies: Iodinated Diagnostic Agents (Verified Allergy, Severe, RASH TO IVP DYE, NAUSEA, FAINTING, COUGHING, GAGGING, HEADACH, 04/07/18) Sulfa Antibiotics (Verified Allergy, Severe, HIVES, FACIAL AND ARM SWELLING, 04/07/18) Cerivastatin (Verified Allergy, Intermediate, HIVES, 04/07/18) Codeine (Verified Allergy, Intermediate, "PRICKLY RASH", 04/07/18) Hydroxyzine (Verified Allergy, Intermediate, N/V, 04/07/18) Latex1 -Allergic Contact Dermititis (Verified Allergy, Intermediate, DERMATITIS-PT TOLERATED A LATEX CATHETER 03/26/08, 04/07/18) Diphenhydramine (Verified Allergy, Mild, RASH; SLEEPINESS WITH "PHARBEDRYL ", 04/07/18) Loratadine (Verified Allergy, Mild, HIVES, 04/07/18) Sulfamethoxazole w/Trimethoprim (Verified Allergy, Mild, RASH, 04/07/18) Prednisone (Verified Allergy, Unknown, unknown, 04/07/18) Tetanus Toxoid (Verified Adverse Reaction, Intermediate, SWELLING AT INJECTION SITE, 04/07/18) Alprazolam (Verified Adverse Reaction, Unknown, "SLEEPY STUPER", 04/07/18) Metformin (Verified Adverse Reaction, Unknown, DIARRHEA, 04/07/18) Morphine (Verified Adverse Reaction, Unknown, VOMITING, 04/07/18) Simvastatin (Verified Adverse Reaction, Unknown, COUGH, "DISCOMFORT", 04/07) Current Medications Home Meds and Scripts Medications Dose Route/Sig Max Daily Dose Days Date Category Dose Instructions Dulera 200/5 Mcg (Mometasone Furoate-Formoterol) 1 Aer Aer 2 Puffs INH BID 30 04/07/18 Reported Plavix (Clopidogrel Bisulfate) 75 Mg Tab 75 Mg PO DAILY 03/31/18 Reported Trazodone (Trazodone HCl) 50 Mg Tab 50 Mg PO HS 03/26/18 Reported Protonix (Pantoprazole Sodium) 40 Mg Tab 40 Mg PO DAILY 03/26/18 Reported Flonase Allergy Relief (Fluticasone Propionate (Nasal)) 50 Mcg/Act Spr 2 Sprays JOSE MANUEL DAILY 03/26/18 Reported Lexapro (Escitalopram Oxalate) 10 Mg Tab 15 Mg PO DAILY 03/26/18 Reported Lipitor (Atorvastatin Calcium) 10 Mg Tab 10 Mg PO DAILY 03/26/18 Reported Aspirin Ec (Aspirin) 81 Mg Tab 81 Mg PO DAILY 03/26/18 Reported Ranitidine 75 (Ranitidine HCl) 75 Mg Tab 75 Mg PO BID 03/26/18 Reported Humulin R (Insulin Human Regular) 100 Units/Ml Susp 24 Units SQ BID 03/26/18 Reported GIVE 24 UNITS AFTER LUNCH AND BEFORE BED Dicyclomine HCl 10 Mg Cap 10 Mg PO TID PRN 12/24/17 Reported Duoneb (Ipratropium-Albuterol) 3 Ml Nebu 1 Treatment INH QID PRN 12/24/17 Reported [place] (Chlorthalidone) 25 Mg Tab 25 Mg PO DAILY 12/18/17 Reported Norvasc (Amlodipine Besylate) 10 Mg Tab 10 Mg PO DAILY 12/18/17 Reported Ventolin Hfa (Albuterol) 200 Puffs/31293 Mcg Aers 2 Puffs INH Q4 PRN 12/08/17 Reported Cozaar (Losartan Potassium) 100 Mg Tab 100 Mg PO QAM 12/08/17 Reported Ativan (Lorazepam) 0.5 Mg Tab 0.5 Mg PO Q6H PRN 01/24/17 Reported Novolin 70/30 (Insulin Human Isoph/Insulin Regular) Susp 85 Units SC BID 01/24/17 Reported GIVE BEFORE BREAKFAST AND BEFORE SUPPER Creon (Pancrelipase (Lipase-Protease-) 1 Cap Cap 6,000 Units PO QID 01/24/17 Reported Lopressor (Metoprolol Tartrate) 50 Mg Tab 50 Mg PO BID 01/24/17 Reported Mag-Ox (Magnesium Oxide) 400 Mg Tab 400 Mg PO QAM 01/24/17 Reported Remeron (Mirtazapine) 30 Mg Tab 30 Mg PO HS 07/19/16 Reported Neurontin (Gabapentin) 400 Mg Cap 400 Mg PO TID 05/18/16 Reported Colace (Docusate Sodium) 100 Mg Cap 100 Mg PO BID PRN 01/28/16 Reported Requip (Ropinirole Hydrochloride) 1 Mg Tab 1 Mg PO HS 30 12/18/15 Reported Review of Systems Constitutional: + fever, + chills, + weakness, No sweats, No weight loss Eyes: No eye pain, No redness ENT: No sore throat, No trouble swallowing, No pain on swallowing Respiratory: No cough, No wheezing, No shortness of breath, No dyspnea on exertion Cardiac: No chest pain, No edema, No palpitations Abdomen: + see HPI, + pain, + nausea, + vomiting, + problem reported (frequent loose stools on Thursday) Neuro: No memory loss, No weakness, No numbness/tingling, No vertigo, No balance problems Psych: No depression symptoms, No anxiety, No insomnia Heme: No abnormal bleeding/bruising, No night sweats Endo: No excessive thirst, No excessive urination Skin: No rash, No itch, No new/changing skin lesions, No jaundice Physical Exam Date Time Temp Pulse Resp B/P (MAP) Pulse Ox O2 Delivery O2 Flow Rate FiO2 04/07/18 07:26 36.3 66 18 107/64 (78) 97 Room Air 04/07/18 04:12 64 18 172/80 95 04/07/18 03:54 36.3 67 18 183/81 98 Room Air 04/07/18 03:00 64 18 105/68 94 Room Air 04/07/18 00:59 69 18 144/73 97 Room Air 04/07/18 00:07 76 04/07/18 00:04 37.0 75 18 172/104 97 Room Air General Appearance: no apparent distress Eyes: normal inspection, EOMI Neck: supple, no adenopathy, thyroid normal, no JVD Respiratory/Chest: chest non-tender, lungs clear, normal breath sounds, no accessory muscle use Cardiovascular: regular rate, rhythm, no JVD, no murmur Abdomen: normal bowel sounds, soft, no organomegaly, + tenderness (epigastric tenderness) Extremities: normal inspection, no pedal edema, normal capillary refill Neurologic/Psych: alert, normal mood/affect, oriented x 3 Skin: normal color, no jaundice, warm/dry, no rash Laboratory Results Last 24 Hours Test 04/07/18 00:14 04/07/18 00:47 04/07/18 00:48 04/07/18 01:20 Bedside Glucose 217 mg/dl White Blood Count 20.00 K/uL Red Blood Count 4.40 M/uL Hemoglobin 13.8 g/dL Hematocrit 38.1 % Mean Corpuscular Volume 86.6 fL Mean Corpuscular Hemoglobin 31.4 pg Mean Corpuscular Hemoglobin Concent 36.2 g/dl Platelet Count 222 K/uL Mean Platelet Volume 9.1 fL Neutrophils (%) (Auto) 67.5 % Lymphocytes (%) (Auto) 19.3 % Monocytes (%) (Auto) 8.3 % Eosinophils (%) (Auto) 3.8 % Basophils (%) (Auto) 0.6 % Neutrophils # (Auto) 13.53 K/uL Lymphocytes # (Auto) 3.86 K/uL Monocytes # (Auto) 1.66 K/uL Eosinophils # (Auto) 0.75 K/uL Basophils # (Auto) 0.11 K/uL RDW Standard Deviation 43.0 fL RDW Coefficient of Variation 13.6 % Immature Granulocyte % (Auto) 0.5 % Immature Granulocyte # (Auto) 0.09 K/uL Sodium Level 135 mmol/L Potassium Level 3.5 mmol/L Chloride Level 104 mmol/L Carbon Dioxide Level 24 mmol/L Anion Gap 7.0 mmol/L Blood Urea Nitrogen 23 mg/dl Creatinine 1.44 mg/dl Est Creatinine Clear Calc Drug Dose 28.3 ml/min Estimated GFR () 40.5 Estimated GFR (Non- 34.9 BUN/Creatinine Ratio 15.7 Random Glucose 193 mg/dl Bedside Lactic Acid Venous 1.98 mmol/L Calcium Level 8.8 mg/dl Magnesium Level 1.8 mg/dl Total Bilirubin 0.5 mg/dl Direct Bilirubin < 0.1 mg/dl Aspartate Amino Transf (AST/SGOT) 27 U/L Alanine Aminotransferase (ALT/SGPT) 38 U/L Alkaline Phosphatase 93 U/L Troponin I < 0.015 ng/ml Total Protein 7.5 gm/dl Albumin 3.3 gm/dl Lipase 6382 U/L Procalcitonin 1.02 ng/ml Urine Color YELLOW Urine Appearance CLEAR Urine pH 6.5 Urine Specific [place] 1.023 Urine Protein TRACE Urine Glucose (UA) 3+ Urine Ketones NEG Urine Occult Blood NEG Urine Nitrite NEG Urine Bilirubin NEG Urine Urobilinogen NEG Urine Leukocyte Esterase SMALL Urine WBC (Auto) 10-30 /hpf Urine RBC (Auto) 0-4 /hpf Urine Hyaline Casts (Auto) 1-5 /lpf Urine Epithelial Cells (Auto) >30 /lpf Urine Bacteria (Auto) NEG Test 04/07/18 03:27 04/07/18 05:39 04/07/18 09:34 04/07/18 12:12 Lactic Acid Level 1.2 mmol/L Bedside Glucose 178 mg/dl 164 mg/dl Sodium Level 137 mmol/L Potassium Level 3.7 mmol/L Chloride Level 105 mmol/L Carbon Dioxide Level 24 mmol/L Anion Gap 8.0 mmol/L Blood Urea Nitrogen 20 mg/dl Creatinine 1.31 mg/dl Est Creatinine Clear Calc Drug Dose 31.9 ml/min Estimated GFR () 45.4 Estimated GFR (Non- 39.2 BUN/Creatinine Ratio 14.9 Random Glucose 167 mg/dl Calcium Level 8.6 mg/dl Lipase 2082 U/L Impression Patient is a 77 year old female with acute on chronic pancreatitis. Initial pancreatitis likely secondary to prior increased alcohol use as well as pancreatic divisum. Plan 1. IV fluids. 2. Bowel rest. 3. Narcotics (but avoid dependency). 4. Management of blood glucose. I performed a history and physical examination of the patient, including specifically no abdominal tenderness I have discussed the patient's management with Mel Hook. Please refer to the [facility]'s note for the documented findings and plan of care. Patient with pancreatic divism and chronic pancreatitis, s/p multiple prior ERCP with pancreatic duct stricture dilation, stenting and stone removal. Now admitted with mild acute excacerbation. No organ failure. IV Hydration and supportive care. Follow up with GI as OP. I discussed with her treatment options for chronic Velásquez including Whipple's surgery.
[2018-04-07 15:00] VITALS: BP 114/72; PULSE 59; TEMP 36.4; O2SAT 97
[2018-04-07 19:30] VITALS: BP 116/79; PULSE 65
[2018-04-07] MEDS: TRAZODONE HCL 50 MG TAB PO SCH (21:10)
[2018-04-07] MEDS: MIRTAZAPINE TAB 15 MG TAB PO SCH (21:11)
[2018-04-07] MEDS: ROPINIROLE HCL 1 MG TAB PO SCH (21:11)
[2018-04-07] MEDS ORDERED: NURSING VERBAL MED ORDER ONE (21:15)
--- NOTE | 2018-04-07 21:57 | Progress Note ---
Progress Note Date of Service April 07, 2018. Progress Note resting in bed, not in distress, comfortable abdominal pain improving no nausea no other symptoms abdomen soft non tender RECURRENT PANCREATITIS pain improving lipase improving continue IV fluids monitor closely other diagnoses and plan of care per Dr. Russ's notes Kimberli Conrad MD
[2018-04-08 00:28] VITALS: BP 125/76; PULSE 80; TEMP 36.8; O2SAT 94
[2018-04-08] MEDS ORDERED: INSULIN ASPART 100 UNITS/ML 3 ML PEN SC ONE (03:02)
[2018-04-08] MEDS ORDERED: INSULIN GLARGINE SOLOSTAR 100 UNITS/ML 3 ML PEN SC ONE (03:02)
[2018-04-08] MEDS: LACTATED RINGER'S 1000ML 1,000 ML IV SCH ×2 (04:06→15:26)
[2018-04-08] MEDS: HEPARIN SOD 5000 UNIT/0.5 ML CARP SQ SCH ×3 (05:10→20:48)
[2018-04-08 05:40] LABS: BASO % 0.5 %; BASO ABS # 0.06 K/uL (0-0.2); EOS % 0.8 %; HEMATOCRIT 34.4 % (37-47); HEMOGLOBIN 12.2 g/dL (12.0-16.0); IG# 0.04 K/uL (0.00-0.02); LYMPH % 22.2 %; MEAN CELL VOLUME 87.8 fL (80-100); MEAN CORPUSCULAR HEMOGLOBIN 31.1 pg (25-34); MEAN CORPUSCULAR HGB CONC 35.5 g/dl (32-36); MEAN PLATELET VOLUME 9.1 fL (7.4-10.4); MONO ABS # 0.52 K/uL (0.11-0.59); NEUT % 72.2 %; NEUT ABS # 9.47 K/uL (1.4-6.5); PLATELET COUNT 202 K/uL (130-400); RED CELL DISTRIBUTION WIDTH CV 13.9 % (11.5-14.5); RED CELL DISTRIBUTION WIDTH SD 44.6 fL (36.4-46.3); WHITE BLOOD COUNT 13.09 K/uL (4.8-10.8)
[2018-04-08 06:04] LABS: CALCIUM 8.5 mg/dl (8.5-10.1); CREATININE 1.52 mg/dl (0.60-1.20); POTASSIUM 4.1 mmol/L (3.5-5.1)
[2018-04-08 07:29] VITALS: BP 134/74; PULSE 69; TEMP 36.4; O2SAT 95
--- NOTE | 2018-04-08 07:32 | Clinical Documentation Query ---
CLINICAL DOCUMENTATION QUERY Dr. MCKENZIE, In your clinical opinion is this patient being managed for: ( ) SIRS due to a noninfectious process ( ) Not Agree ( X) Other explanation of clinical findings (No explanation is considered a No Response) possible SIRS ( ) Unable to determine ( ) Need to Discuss (Phone CDS or qliq) (No discussion is considered a No Response) The medical record reflects the following clinical findings, treatment, and risk factors. Clinical Indicators: 77 yo female presenting with recurrent pancreatitis. Reported fever of 100.4F (38 C) at home and was instructed to take tylenol which reportedly did not help her pain. WBC 20.00 Treatment: IV fluids, IV mefoxin, IV analgesia, NPO ex meds, Risk Factors: recurrent pancreatitis, DM, pancreatic divisum *SIRS may be clinically indicated by any 2 of the 4 following indicators in the presence of an infectious process: 1.Temperature >38*C or <36C 2.Heart Rate >90/min 3.Respiratory Rate >20/min or PaCO2 <32 mm Hg 4.WBC >12,000/mm3 or <4000/mm3 or >10% immature bands Please clarify and document your clinical opinion in the progress notes and discharge summary. Terms such as "probable", "suspected", "likely", "questionable", "possible", or "still to be ruled out" are acceptable. IF IN AGREEMENT, YOU MUST DOCUMENT ABOVE DIAGNOSTIC STATEMENT IN DAILY PROGRESS NOTES AND DISCHARGE SUMMARY. This document is not part of the patient's record. Thank You, Luisa Ac, RN [phone]
[2018-04-08] MEDS: DULERA~ORDER AWAITING ACTION SCH ×3 (08:35→23:56)
[2018-04-08] MEDS: ESCITALOPRAM OXALATE 10 MG TAB PO SCH (08:39)
[2018-04-08] MEDS: CLOPIDOGREL BISULFATE 75 MG TAB PO SCH (08:39)
[2018-04-08] MEDS: PANTOprazole SOD 40 MG TAB PO SCH (08:40)
[2018-04-08] MEDS: RANITIDINE HCL 150 MG TAB PO SCH ×2 (08:40→20:34)
[2018-04-08] MEDS: LOSARTAN POTASSIUM 50 MG TAB PO SCH (08:41)
[2018-04-08] MEDS: AMLODIPINE BESYLATE 5 MG TAB PO SCH (08:41)
[2018-04-08] MEDS: ASPIRIN 81 MG ECTAB PO SCH (08:41)
[2018-04-08] MEDS: GABAPENTIN 400 MG CAP PO SCH ×3 (08:42→20:34)
[2018-04-08] MEDS: FLUTICASONE PROPIONATE NA SPR 16 GM BTL NAE SCH (08:42)
[2018-04-08] MEDS: METOPROLOL TARTRATE 50 MG TAB PO SCH ×2 (08:42→20:48)
[2018-04-08] MEDS: INSULIN ASPART 100 UNITS/ML 3 ML PEN SC SCH ×4 (08:47→20:47)
--- NOTE | 2018-04-08 10:14 | Gastroenterology Progress Note ---
Progress Note Date of Service: April 08, 2018 Subjective Pt evaluation today including: conversation w/ patient, physical exam, chart review, lab review, review of studies, review of inpatient medication list Ms. Kaplan is a 77 yr old female with acute on chronic pancreatitis (ETOH - now abstaining, smoking hx - quit a few yrs ago, pancreatic divisum). She underwent ERCP with pancreatic duct stone extraction and stent placement last week. Lipase on arrival: >6000, yesterday >2000, today 864. LFTs have been normal. WBC was 20 on arrival, today 15. She was sitting up in bed watching TV this morning when I arrived in the room. She continues with upper abdomen pain, slightly improved. She asks for food. Review of Systems Constitutional: No fever, No chills ENT: No hearing loss Respiratory: No cough Cardiac: No chest pain Abdomen: + pain, + problem reported (most recent BM yesterday, formed), No nausea, No vomiting, No constipation Female : No dysuria Neuro: No memory loss Psych: No depression symptoms Heme: No abnormal bleeding/bruising Endo: No see HPI Skin: No jaundice Medications Current Inpatient Medications Medications (Trade) Dose Ordered Sig/Rosetta Route Start Time Stop Time Status Last Admin Dose Admin Hydromorphone HCl (Dilaudid Inj) 1 mg Q15M PRN IV 04/07/18 00:30 04/21/18 00:29 04/07/18 02:13 1 MG Lactated Ringer's 1,000 ml @ 125 mls/hr Q8H IV 04/07/18 02:45 05/07/18 02:44 04/08/18 04:06 125 MLS/HR Heparin Sodium (Porcine) (Heparin Sq 5000 Unit/0.5ml) 5,000 unit Q8H SQ 04/07/18 06:00 05/07/18 05:59 04/08/18 05:10 5,000 UNIT Acetaminophen (Tylenol Tab) 650 mg Q4H PRN PO 04/07/18 04:15 05/07/18 04:14 Glucose (Glucose 40% Gel) 15-30 GRAMS 15 GRAMS... UD PRN PO 04/07/18 04:15 05/07/18 04:14 Glucose (Glucose Chew Tab) 4-8 Tablets 4 Tabl... UD PRN PO 04/07/18 04:15 05/07/18 04:14 Dextrose (Dextrose 50% 50ML Syringe) 25-50ML 25ML FOR ... UD PRN IV 04/07/18 04:15 05/07/18 04:14 Glucagon (Glucagon Inj) 1 mg UD PRN SQ 04/07/18 04:15 05/07/18 04:14 Carbohydrates (Carbohydrates For Hypoglycemia) 15-30 GRAMS 15 grams if BSG 54-69... UD PRN PO 04/07/18 04:15 05/07/18 04:14 Prochlorperazine Edisylate 5 mg/ Syringe 5 ml @ 5 mls/min Q6H PRN IV 04/07/18 04:15 05/07/18 04:14 Tramadol HCl (Ultram Tab) not relieved by tylenol @ Q6H PRN PO 04/07/18 04:15 05/07/18 04:14 04/07/18 14:04 50 MG Hydromorphone HCl (Dilaudid Inj) 0.5 mg Q3H PRN IV 04/07/18 04:15 04/21/18 04:14 04/07/18 09:15 0.5 MG Amlodipine Besylate (Norvasc Tab) 10 mg DAILY PO 04/07/18 08:00 05/07/18 08:59 04/08/18 08:41 10 MG Aspirin (Ecotrin Tab) 81 mg DAILY PO 04/07/18 08:00 05/07/18 08:59 04/08/18 08:41 81 MG Clopidogrel Bisulfate (plAVix TAB) 75 mg DAILY PO 04/07/18 08:00 05/07/18 08:59 04/08/18 08:39 75 MG Dicyclomine HCl (Bentyl Cap) 10 mg TID PRN PO 04/07/18 04:15 05/07/18 04:14 Docusate Sodium (coLACE CAP) 100 mg BID PRN PO 04/07/18 04:15 05/07/18 04:14 Escitalopram Oxalate (Lexapro Tab) 15 mg DAILY PO 04/07/18 08:00 05/07/18 08:59 04/08/18 08:39 15 MG Fluticasone Propionate (Flonase Nasal [place]) 2 sprays DAILY JOSE MANUEL 04/07/18 08:00 05/07/18 08:59 04/08/18 08:42 2 SPRAYS Gabapentin (Neurontin Cap) 400 mg TID PO 04/07/18 08:00 05/07/18 08:59 04/08/18 08:42 400 MG Lorazepam (Ativan Tab) 0.5 mg Q6H PRN PO 04/07/18 04:15 05/07/18 04:14 Losartan Potassium (coZAAR TAB) 100 mg QAM PO 04/07/18 08:00 05/07/18 08:59 04/08/18 08:41 100 MG Metoprolol Tartrate (Lopressor Tab) 50 mg BID PO 04/07/18 08:00 05/07/18 08:59 04/08/18 08:42 50 MG Pantoprazole Sodium (Protonix Tab) 40 mg DAILY PO 04/07/18 08:00 05/07/18 08:59 04/08/18 08:40 40 MG Ropinirole HCl (Requip Tab) 1 mg HS PO 04/07/18 21:00 05/07/18 20:59 04/07/18 21:11 1 MG Trazodone HCl (Desyrel Tab) 50 mg HS PO 04/07/18 21:00 05/07/18 20:59 04/07/18 21:10 50 MG Miscellaneous Information (Order Awaiting Action) 1 ea QS N/A 04/07/18 08:00 05/07/18 07:59 Ranitidine HCl (zANTac TAB) 75 mg BID PO 04/07/18 08:00 05/07/18 08:59 04/08/18 08:40 75 MG Mirtazapine (Remeron Tab) 30 mg HS PO 04/07/18 21:00 05/07/18 20:59 04/07/18 21:11 30 MG Heparin Sodium (Porcine) (Heparin 100 Unit/ml 5ml Flush) 5 ml PRN PRN IV 04/07/18 09:45 05/07/18 09:44 Insulin Glargine (Lantus Solostar Pen) 20 units BID SC 04/08/18 20:00 05/07/18 08:59 Insulin Aspart (novoLOG ASPART) SLIDING SCALE If C... Q6 SC 04/08/18 08:00 05/08/18 00:00 04/08/18 08:47 1 UNITS Objective Vital Signs Date Time Temp Pulse Resp B/P (MAP) Pulse Ox O2 Delivery O2 Flow Rate FiO2 04/08/18 07:29 36.4 69 18 134/74 (94) 95 Room Air 04/08/18 00:28 36.8 80 20 125/76 (92) 94 Room Air 04/08/18 00:00 Room Air 04/07/18 19:30 Room Air 04/07/18 19:30 65 116/79 (91) 04/07/18 16:00 Room Air 04/07/18 15:00 36.4 59 18 114/72 (86) 97 Room Air 04/07/18 12:16 60 96 Physical Exam General Appearance: no apparent distress ENT: pharynx normal Neck: thyroid normal Respiratory/Chest: lungs clear Cardiovascular: regular rate, rhythm, no JVD, no murmur Abdomen: soft, + tenderness (moderate epigastric tenderness) Neurologic/Psych: alert, normal mood/affect, oriented x 3 Skin: no jaundice Laboratory Results Last 24 Hours Test 04/07/18 12:12 04/07/18 18:24 04/08/18 00:34 04/08/18 00:36 Bedside Glucose 164 mg/dl 179 mg/dl 238 mg/dl 238 mg/dl Test 04/08/18 05:00 04/08/18 05:14 04/08/18 08:46 Bedside Glucose 235 mg/dl 185 mg/dl White Blood Count 13.09 K/uL Red Blood Count 3.92 M/uL Hemoglobin 12.2 g/dL Hematocrit 34.4 % Mean Corpuscular Volume 87.8 fL Mean Corpuscular Hemoglobin 31.1 pg Mean Corpuscular Hemoglobin Concent 35.5 g/dl Platelet Count 202 K/uL Mean Platelet Volume 9.1 fL Neutrophils (%) (Auto) 72.2 % Lymphocytes (%) (Auto) 22.2 % Monocytes (%) (Auto) 4.0 % Eosinophils (%) (Auto) 0.8 % Basophils (%) (Auto) 0.5 % Neutrophils # (Auto) 9.47 K/uL Lymphocytes # (Auto) 2.90 K/uL Monocytes # (Auto) 0.52 K/uL Eosinophils # (Auto) 0.10 K/uL Basophils # (Auto) 0.06 K/uL RDW Standard Deviation 44.6 fL RDW Coefficient of Variation 13.9 % Immature Granulocyte % (Auto) 0.3 % Immature Granulocyte # (Auto) 0.04 K/uL Sodium Level 135 mmol/L Potassium Level 4.1 mmol/L Chloride Level 103 mmol/L Carbon Dioxide Level 23 mmol/L Anion Gap 9.0 mmol/L Blood Urea Nitrogen 23 mg/dl Creatinine 1.52 mg/dl Est Creatinine Clear Calc Drug Dose 27.5 ml/min Estimated GFR () 37.9 Estimated GFR (Non- 32.7 BUN/Creatinine Ratio 15.1 Random Glucose 238 mg/dl Calcium Level 8.5 mg/dl Lipase 864 U/L Assessment and Plan Ms. Kaplan is a 77 yr old female with acute on chronic pancreatitis. Plan: 1. Clear liquids po. 2. Encouraged to ambulate and decrease narcotic use. I performed a history and physical examination of the patient, including specifically tolerated liquid diet I have discussed the patient's management with Mel Hook. Please refer to the [facility]'s note for the documented findings and plan of care. Patient with acute on chronic pancreatitis, now resolving, has pancreatic diivisim and multiple PD stricture s/p multiple ERCPs. Advance diet as tolerated. She may need repeat ERCP in the near future but may consider imaging first. Will inform her advanced endoscopist. Recall Gi if needed.
[2018-04-08] MEDS ORDERED: INSULIN ASPART 100 UNITS/ML 3 ML PEN SC SCH ×2 (12:00)
[2018-04-08] MEDS ORDERED: NURSING VERBAL MED ORDER ONE (15:30)
[2018-04-08 15:58] VITALS: BP 137/83; PULSE 64; TEMP 36.6; O2SAT 96
[2018-04-08] MEDS ORDERED: INSULIN GLARGINE SOLOSTAR 100 UNITS/ML 3 ML PEN SC SCH (20:00)
[2018-04-08 20:32] VITALS: BP 184/63; PULSE 71
[2018-04-08] MEDS: MIRTAZAPINE TAB 15 MG TAB PO SCH (20:35)
[2018-04-08] MEDS: TRAZODONE HCL 50 MG TAB PO SCH (20:35)
[2018-04-08] MEDS: ROPINIROLE HCL 1 MG TAB PO SCH (20:36)
[2018-04-08] MEDS ORDERED: INSULIN GLARGINE SOLOSTAR 100 UNITS/ML 3 ML PEN SC STA (21:24)
--- NOTE | 2018-04-08 22:25 | Progress Note ---
Medicine Progress Note Date & Time of Visit: April 08, 2018 at 22:20. Subjective seen resting in bedside chair comfortable diet advanced abdominal pain improving no nausea no other symptoms Objective Last 8 Hrs Date Time Temp Pulse Resp B/P (MAP) Pulse Ox O2 Delivery O2 Flow Rate FiO2 04/08/18 20:32 71 184/63 (103) 04/08/18 19:08 Room Air 04/08/18 15:58 36.6 64 18 137/83 (101) 96 Room Air Physical Exam: General- oriented x 3, not in distress, speaks in sentences with no effort Head- atraumatic Eyes- anicteric ENT- oropharynx clear Neck- supple, no JVD Lungs- clear BS BL Heart- regular rhythm; no murmur, normal rate Abdomen- normal bowel sounds, soft, nontender, non distended Extremities- no pretibial edema, no calf tenderness; peripheral pulses intact Neuro- alert, oriented x 3; no gross focal deficits Skin- warm & dry Laboratory Results: Last 24 Hours Test 04/08/18 00:34 04/08/18 00:36 04/08/18 05:00 04/08/18 05:14 Bedside Glucose 238 mg/dl 238 mg/dl 235 mg/dl White Blood Count 13.09 K/uL Red Blood Count 3.92 M/uL Hemoglobin 12.2 g/dL Hematocrit 34.4 % Mean Corpuscular Volume 87.8 fL Mean Corpuscular Hemoglobin 31.1 pg Mean Corpuscular Hemoglobin Concent 35.5 g/dl Platelet Count 202 K/uL Mean Platelet Volume 9.1 fL Neutrophils (%) (Auto) 72.2 % Lymphocytes (%) (Auto) 22.2 % Monocytes (%) (Auto) 4.0 % Eosinophils (%) (Auto) 0.8 % Basophils (%) (Auto) 0.5 % Neutrophils # (Auto) 9.47 K/uL Lymphocytes # (Auto) 2.90 K/uL Monocytes # (Auto) 0.52 K/uL Eosinophils # (Auto) 0.10 K/uL Basophils # (Auto) 0.06 K/uL RDW Standard Deviation 44.6 fL RDW Coefficient of Variation 13.9 % Immature Granulocyte % (Auto) 0.3 % Immature Granulocyte # (Auto) 0.04 K/uL Sodium Level 135 mmol/L Potassium Level 4.1 mmol/L Chloride Level 103 mmol/L Carbon Dioxide Level 23 mmol/L Anion Gap 9.0 mmol/L Blood Urea Nitrogen 23 mg/dl Creatinine 1.52 mg/dl Est Creatinine Clear Calc Drug Dose 27.5 ml/min Estimated GFR () 37.9 Estimated GFR (Non- 32.7 BUN/Creatinine Ratio 15.1 Random Glucose 238 mg/dl Calcium Level 8.5 mg/dl Lipase 864 U/L Test 04/08/18 08:46 04/08/18 11:41 04/08/18 16:46 04/08/18 20:10 Bedside Glucose 185 mg/dl 243 mg/dl 166 mg/dl 268 mg/dl Assessment & Plan ASSESSMENT: 1. Recurrent pancreatitis pancreatic diivisim and multiple PD stricture s/p multiple ERCPs. -- abdominal pain improving Lipase improved -- decrease IV fluids -- continue to monitor may need repeat ERCP as outpatient 2. Hypertension, stable. 3. Hx CVA/PVD as per records. - continue ASA 4. DM2, insulin requiring suboptimal control as of recent outpatient hemoglobin A1c -- Lantus and iSS 5. Chronic renal insufficiency. Creatinine at baseline. 6. past tobacco abuse. DVT prophylaxis Heparin subQ. Full code. Anticipate d/c home in AM Current Inpatient Medications: Current Inpatient Medications Medications (Trade) Dose Ordered Sig/Rosetta Route Start Time Stop Time Status Last Admin Dose Admin Lactated Ringer's 1,000 ml @ 60 mls/hr [id number] IV 04/07/18 02:45 05/07/18 02:44 04/08/18 15:26 125 MLS/HR Heparin Sodium (Porcine) (Heparin Sq 5000 Unit/0.5ml) 5,000 unit Q8H SQ 04/07/18 06:00 05/07/18 05:59 04/08/18 20:48 5,000 UNIT Acetaminophen (Tylenol Tab) 650 mg Q4H PRN PO 04/07/18 04:15 05/07/18 04:14 Glucose (Glucose 40% Gel) 15-30 GRAMS 15 GRAMS... UD PRN PO 04/07/18 04:15 05/07/18 04:14 Glucose (Glucose Chew Tab) 4-8 Tablets 4 Tabl... UD PRN PO 04/07/18 04:15 05/07/18 04:14 Dextrose (Dextrose 50% 50ML Syringe) 25-50ML 25ML FOR ... UD PRN IV 04/07/18 04:15 05/07/18 04:14 Glucagon (Glucagon Inj) 1 mg UD PRN SQ 04/07/18 04:15 05/07/18 04:14 Carbohydrates (Carbohydrates For Hypoglycemia) 15-30 GRAMS 15 grams if BSG 54-69... UD PRN PO 04/07/18 04:15 05/07/18 04:14 Prochlorperazine Edisylate 5 mg/ Syringe 5 ml @ 5 mls/min Q6H PRN IV 04/07/18 04:15 05/07/18 04:14 Tramadol HCl (Ultram Tab) not relieved by tylenol @ Q6H PRN PO 04/07/18 04:15 05/07/18 04:14 04/07/18 14:04 50 MG Hydromorphone HCl (Dilaudid Inj) 0.5 mg Q3H PRN IV 04/07/18 04:15 04/21/18 04:14 04/07/18 09:15 0.5 MG Amlodipine Besylate (Norvasc Tab) 10 mg DAILY PO 04/07/18 08:00 05/07/18 08:59 04/08/18 08:41 10 MG Aspirin (Ecotrin Tab) 81 mg DAILY PO 04/07/18 08:00 05/07/18 08:59 04/08/18 08:41 81 MG Clopidogrel Bisulfate (plAVix TAB) 75 mg DAILY PO 04/07/18 08:00 05/07/18 08:59 04/08/18 08:39 75 MG Dicyclomine HCl (Bentyl Cap) 10 mg TID PRN PO 04/07/18 04:15 05/07/18 04:14 Docusate Sodium (coLACE CAP) 100 mg BID PRN PO 04/07/18 04:15 05/07/18 04:14 Escitalopram Oxalate (Lexapro Tab) 15 mg DAILY PO 04/07/18 08:00 05/07/18 08:59 04/08/18 08:39 15 MG Fluticasone Propionate (Flonase Nasal [place]) 2 sprays DAILY JOSE MANUEL 04/07/18 08:00 05/07/18 08:59 04/08/18 08:42 2 SPRAYS Gabapentin (Neurontin Cap) 400 mg TID PO 04/07/18 08:00 05/07/18 08:59 04/08/18 20:34 400 MG Lorazepam (Ativan Tab) 0.5 mg Q6H PRN PO 04/07/18 04:15 05/07/18 04:14 Losartan Potassium (coZAAR TAB) 100 mg QAM PO 04/07/18 08:00 05/07/18 08:59 04/08/18 08:41 100 MG Metoprolol Tartrate (Lopressor Tab) 50 mg BID PO 04/07/18 08:00 05/07/18 08:59 04/08/18 20:48 50 MG Pantoprazole Sodium (Protonix Tab) 40 mg DAILY PO 04/07/18 08:00 05/07/18 08:59 04/08/18 08:40 40 MG Ropinirole HCl (Requip Tab) 1 mg HS PO 04/07/18 21:00 05/07/18 20:59 04/08/18 20:36 1 MG Trazodone HCl (Desyrel Tab) 50 mg HS PO 04/07/18 21:00 05/07/18 20:59 04/08/18 20:35 50 MG Miscellaneous Information (Order Awaiting Action) 1 ea QS N/A 04/07/18 08:00 05/07/18 07:59 Ranitidine HCl (zANTac TAB) 75 mg BID PO 04/07/18 08:00 05/07/18 08:59 04/08/18 20:34 75 MG Mirtazapine (Remeron Tab) 30 mg HS PO 04/07/18 21:00 05/07/18 20:59 04/08/18 20:35 30 MG Heparin Sodium (Porcine) (Heparin 100 Unit/ml 5ml Flush) 5 ml PRN PRN IV 04/07/18 09:45 05/07/18 09:44 Insulin Aspart (novoLOG ASPART) SLIDING SCALE If C... ACHS SC 04/08/18 16:30 05/08/18 07:59 04/08/18 20:47 6 UNITS Insulin Glargine (Lantus Solostar Pen) 35 units BID SC 04/09/18 08:00 05/07/18 08:59 Amylase/Lipase/ Protease (Pancreaze (Lipase 4,200U) Cap) 1 cap QID PO 04/09/18 08:00 05/09/18 07:59
[2018-04-09] VITALS: BP 151/65; PULSE 76; TEMP 36.9; O2SAT 96
[2018-04-09] MEDS: TRAMADOL HCL 50 MG TAB PO PRN ×2 (00:35→08:23)
[2018-04-09] MEDS ORDERED: NURSING VERBAL MED ORDER ONE ×2 (04:45→09:15)
[2018-04-09] MEDS: LACTATED RINGER'S 1000ML 1,000 ML IV SCH (04:54)
[2018-04-09] MEDS: HEPARIN SOD 5000 UNIT/0.5 ML CARP SQ SCH ×2 (06:00→12:38)
[2018-04-09 06:49] LABS: CALCIUM 8.5 mg/dl (8.5-10.1); CREATININE 1.15 mg/dl (0.60-1.20); POTASSIUM 3.6 mmol/L (3.5-5.1)
[2018-04-09 07:46] VITALS: BP 135/68; PULSE 91; TEMP 36.6; O2SAT 95
[2018-04-09] MEDS: DULERA~ORDER AWAITING ACTION SCH (08:00)
[2018-04-09] MEDS ORDERED: INSULIN GLARGINE SOLOSTAR 100 UNITS/ML 3 ML PEN SC SCH (08:00)
[2018-04-09] MEDS: CLOPIDOGREL BISULFATE 75 MG TAB PO SCH (08:12)
[2018-04-09] MEDS: GABAPENTIN 400 MG CAP PO SCH ×2 (08:12→12:38)
[2018-04-09] MEDS: LOSARTAN POTASSIUM 50 MG TAB PO SCH (08:12)
[2018-04-09] MEDS: AMLODIPINE BESYLATE 5 MG TAB PO SCH (08:12)
[2018-04-09] MEDS: ASPIRIN 81 MG ECTAB PO SCH (08:12)
[2018-04-09] MEDS: METOPROLOL TARTRATE 50 MG TAB PO SCH (08:12)
[2018-04-09] MEDS: ESCITALOPRAM OXALATE 10 MG TAB PO SCH (08:12)
[2018-04-09] MEDS: RANITIDINE HCL 150 MG TAB PO SCH (08:13)
[2018-04-09] MEDS: PANTOprazole SOD 40 MG TAB PO SCH (08:13)
[2018-04-09] MEDS: PANCREAZE (LIPASE 4,200U) CAP PO SCH ×2 (08:14→12:38)
[2018-04-09] MEDS: FLUTICASONE PROPIONATE NA SPR 16 GM BTL NAE SCH (08:14)
[2018-04-09] MEDS: INSULIN ASPART 100 UNITS/ML 3 ML PEN SC SCH ×2 (08:22→12:42)
--- NOTE | 2018-04-09 10:10 | Discharge Instructions ---
Discharge Instructions Date of Service April 09, 2018. Admission Reason for Admission: Pancreatitis Discharge Discharge Diagnosis / Problem: RECURRENT PANCREATITIS Discharge Goals Goal(s): Diagnostic testing, Therapeutic intervention Activity Recommendations Activity Limitations: as noted below (INCREASE ACTIVITY GRADUALLY TOLERATED) Lifting Limitations: until after follow-up appointment Exercise/Sports Limitations: until after follow-up appointment Driving or Machine Use: NO DRIVING UNTIL FOLLOW UP WITH PRIMARY CARE PHYSICIAN . Instructions / Follow-Up Instructions / Follow-Up CALL YOUR PRIMARY CARE PHYSICIAN OR RETURN TO ER IMMEDIATELY IF WITH WORSENING OF SYMPTOMS. ENSURE ADEQUATE DAILY FLUID INTAKE. AVOID FATTY FOODS. EAT SMALL MEALS AT A TIME. FOLLOW UP WITH DR. CHAVEZ ON Thursday04/12/18 AT 12:45 PM. FOLLOW UP WITH OPERATIONS REPRESENTATIVE SCHEDULED. Current Hospital Diet Patient's current hospital diet: Diabetes Type 2 Diet, Low Fat Diet Discharge Diet Recommended Diet: AHA Diet (Heart Healthy), Diabetes Type 2 Diet Pending Studies Studies pending at discharge: no Medical Emergencies . Who to Call and When: Medical Emergencies: If at any time you feel your situation is an emergency, please call 911 immediately. . Non-Emergent Contact Non-Emergency issues call your: Primary Care Provider, Computed Tomography Technologist Call Non-Emergent contact if: you have a fever, your pain is not controlled, your pain is worsening, your pain is unusual for you, your pain is concerning you, you have any medication questions . . "Provider Documentation" section prepared by Saul Conrad. .
[2018-04-09 10:44] VITALS: BP 135/68; PULSE 91; TEMP 36.6; O2SAT 95
--- NOTE | 2018-04-09 10:56 | Progress Note ---
Medicine Progress Note Date & Time of Visit: April 09, 2018 at 10:49. Subjective seen resting in bed, comfortable abdominal pain continues to improve tolerated diet well this morning no nausea no other symptoms states she is ready and would like to be discharged today Objective Last 8 Hrs Date Time Temp Pulse Resp B/P (MAP) Pulse Ox O2 Delivery O2 Flow Rate FiO2 04/09/18 08:00 Room Air 04/09/18 07:46 36.6 91 18 135/68 (90) 95 Room Air Physical Exam: General- oriented x 3, not in distress, speaks in sentences with no effort Eyes- anicteric Neck- no JVD Lungs- clear BS bilaterally Heart- regular rhythm; no murmur, normal rate Abdomen- normal bowel sounds, soft, nontender, non distended Extremities- no pretibial edema, no calf tenderness Neuro- alert, oriented x 3; no gross focal deficits Skin- warm & dry Laboratory Results: Last 24 Hours Test 04/08/18 11:41 04/08/18 16:46 04/08/18 20:10 04/09/18 05:56 Bedside Glucose 243 mg/dl 166 mg/dl 268 mg/dl Sodium Level 138 mmol/L Potassium Level 3.6 mmol/L Chloride Level 106 mmol/L Carbon Dioxide Level 26 mmol/L Anion Gap 6.0 mmol/L Blood Urea Nitrogen 16 mg/dl Creatinine 1.15 mg/dl Est Creatinine Clear Calc Drug Dose 36.4 ml/min Estimated GFR () 53.2 Estimated GFR (Non- 45.9 BUN/Creatinine Ratio 13.8 Random Glucose 167 mg/dl Calcium Level 8.5 mg/dl Test 04/09/18 07:46 Bedside Glucose 141 mg/dl Assessment & Plan ASSESSMENT: 1. Recurrent pancreatitis , History of Pancreatic Divisum -- recently had an ERCP last 03/30/18 with stricture dilatation and pancreatic stone extraction -- placed on bowel rest, IV fluids GI consulted -- abdominal pain gradually improved Lipase improved from 6000s to 800s -- diet advanced as tolerated cleared for d/c per GI may need repeat ERCP as outpatient 2. Hypertension, stable. -- continue usual medications 3. Hx CVA/PVD as per records. - continue ASA 4. DM2, insulin requiring suboptimal control as of recent outpatient hemoglobin A1c -- Lantus and iSS 5. Chronic renal insufficiency. Creatinine at baseline. Disposition D/c home ff up with PCP in 3-5 days ff up with GI as scheduled Current Inpatient Medications: Current Inpatient Medications Medications (Trade) Dose Ordered Sig/Rosetta Route Start Time Stop Time Status Last Admin Dose Admin Heparin Sodium (Porcine) (Heparin Sq 5000 Unit/0.5ml) 5,000 unit Q8H SQ 04/07/18 06:00 05/07/18 05:59 04/08/18 20:48 5,000 UNIT Acetaminophen (Tylenol Tab) 650 mg Q4H PRN PO 04/07/18 04:15 05/07/18 04:14 Glucose (Glucose 40% Gel) 15-30 GRAMS 15 GRAMS... UD PRN PO 04/07/18 04:15 05/07/18 04:14 Glucose (Glucose Chew Tab) 4-8 Tablets 4 Tabl... UD PRN PO 04/07/18 04:15 05/07/18 04:14 Dextrose (Dextrose 50% 50ML Syringe) 25-50ML 25ML FOR ... UD PRN IV 04/07/18 04:15 05/07/18 04:14 Glucagon (Glucagon Inj) 1 mg UD PRN SQ 04/07/18 04:15 05/07/18 04:14 Carbohydrates (Carbohydrates For Hypoglycemia) 15-30 GRAMS 15 grams if BSG 54-69... UD PRN PO 04/07/18 04:15 05/07/18 04:14 Prochlorperazine Edisylate 5 mg/ Syringe 5 ml @ 5 mls/min Q6H PRN IV 04/07/18 04:15 05/07/18 04:14 Tramadol HCl (Ultram Tab) not relieved by tylenol @ Q6H PRN PO 04/07/18 04:15 05/07/18 04:14 04/09/18 08:23 50 MG Hydromorphone HCl (Dilaudid Inj) 0.5 mg Q3H PRN IV 04/07/18 04:15 04/21/18 04:14 04/07/18 09:15 0.5 MG Amlodipine Besylate (Norvasc Tab) 10 mg DAILY PO 04/07/18 08:00 05/07/18 08:59 04/09/18 08:12 10 MG Aspirin (Ecotrin Tab) 81 mg DAILY PO 04/07/18 08:00 05/07/18 08:59 04/09/18 08:12 81 MG Clopidogrel Bisulfate (plAVix TAB) 75 mg DAILY PO 04/07/18 08:00 05/07/18 08:59 04/09/18 08:12 75 MG Dicyclomine HCl (Bentyl Cap) 10 mg TID PRN PO 04/07/18 04:15 05/07/18 04:14 Docusate Sodium (coLACE CAP) 100 mg BID PRN PO 04/07/18 04:15 05/07/18 04:14 Escitalopram Oxalate (Lexapro Tab) 15 mg DAILY PO 04/07/18 08:00 05/07/18 08:59 04/09/18 08:12 15 MG Fluticasone Propionate (Flonase Nasal [place]) 2 sprays DAILY JOSE MANUEL 04/07/18 08:00 05/07/18 08:59 04/09/18 08:14 2 SPRAYS Gabapentin (Neurontin Cap) 400 mg TID PO 04/07/18 08:00 05/07/18 08:59 04/09/18 08:12 400 MG Lorazepam (Ativan Tab) 0.5 mg Q6H PRN PO 04/07/18 04:15 05/07/18 04:14 Losartan Potassium (coZAAR TAB) 100 mg QAM PO 04/07/18 08:00 05/07/18 08:59 04/09/18 08:12 100 MG Metoprolol Tartrate (Lopressor Tab) 50 mg BID PO 04/07/18 08:00 05/07/18 08:59 04/09/18 08:12 50 MG Pantoprazole Sodium (Protonix Tab) 40 mg DAILY PO 04/07/18 08:00 05/07/18 08:59 04/09/18 08:13 40 MG Ropinirole HCl (Requip Tab) 1 mg HS PO 04/07/18 21:00 05/07/18 20:59 04/08/18 20:36 1 MG Trazodone HCl (Desyrel Tab) 50 mg HS PO 04/07/18 21:00 05/07/18 20:59 04/08/18 20:35 50 MG Miscellaneous Information (Order Awaiting Action) 1 ea QS N/A 04/07/18 08:00 05/07/18 07:59 Ranitidine HCl (zANTac TAB) 75 mg BID PO 04/07/18 08:00 05/07/18 08:59 04/09/18 08:13 75 MG Mirtazapine (Remeron Tab) 30 mg HS PO 04/07/18 21:00 05/07/18 20:59 04/08/18 20:35 30 MG Heparin Sodium (Porcine) (Heparin 100 Unit/ml 5ml Flush) 5 ml PRN PRN IV 04/07/18 09:45 05/07/18 09:44 Insulin Aspart (novoLOG ASPART) SLIDING SCALE If C... ACHS SC 04/08/18 16:30 05/08/18 07:59 04/09/18 08:22 1 UNITS Insulin Glargine (Lantus Solostar Pen) 35 units BID SC 04/09/18 08:00 05/07/18 08:59 04/09/18 08:22 35 UNITS Amylase/Lipase/ Protease (Pancreaze (Lipase 4,200U) Cap) 1 cap QID PO 04/09/18 08:00 05/09/18 07:59 04/09/18 08:14 1 CAP
--- NOTE | 2018-04-09 11:04 | Discharge Summary ---
Discharge Summary Date of Service April 09, 2018. Discharge Summary Admission Date: April 07, 2018 at 03:47 Discharge Date: April 09, 2018 Discharge Disposition: Home Principal Diagnosis: Recurrent pancreatitis , History of Pancreatic Divisum Secondary Diagnoses/Problems: Please refer to hospital course below. Procedures: ABD/PELVIS WITHOUT FOR STONE CLINICAL HISTORY: 77 years-old Female presenting with severe epigastric to back pain s/p ECRP with panc stent. TECHNIQUE: Multidetector CT of the abdomen and pelvis was performed without the use of intravenous contrast. IV contrast: None. A dose lowering technique was used consistent with the principles of ALARA (as low as reasonably achievable). COMPARISON: 03/26/2018. CT DOSE (mGy.cm): The estimated cumulative dose is 512.67 mGy.cm. FINDINGS: Shop Foreman topogram: Cholecystectomy clips. Lung bases: Minimal basilar opacities, likely atelectasis. Multichamber enlargement of the heart. Coronary artery, aortic valve, and mitral annular calcification. No pericardial or pleural effusion. Liver: Normal morphology. Density consistent with hepatic steatosis. Parenchymal calcification suggest prior granulomatous infection. Biliary: No gross biliary ductal dilatation allowing for noncontrast technique. Gallbladder surgically absent. Pancreas: The pancreatic duct stent is no longer in place. Interval development of peripancreatic and intrapancreatic fat stranding consistent with edema and inflammatory change. Coarse parenchymal calcifications again noted. No parenchymal or peripancreatic fluid collection. Cystic change in the uncinate process is stable. Fascial thickening along the dorsum of the pancreas is new from prior. Spleen: Parenchymal calcifications likely indicate prior granulomatous infection. Adrenal glands: Normal. Kidneys and ureters: Normal noncontrast appearance. No nephrolithiasis. No hydronephrosis. Normal ureters. Bladder: Normal. Pelvic organs: Normal noncontrast appearance. Bowel: Limited diverticulosis of the sigmoid colon. No wall thickening or pericolonic fat infiltration. Mild stool burden. The appendix is normal. Lipomatous hypertrophy of the ileocecal valve. No bowel obstruction. Small hiatal hernia. The pancreatic stent is not visualized. Peritoneal cavity: No free fluid or intraperitoneal gas. Lymph nodes: Enlarged peripancreatic lymph nodes, slightly more prominent on the current exam and likely reactive. Vasculature: Atherosclerosis of the normal caliber abdominal aorta. Abdominal wall: Foci of gas in the left anterior abdominal wall likely related to medication administration. Musculoskeletal: Degenerative changes of the spine. Redemonstration of geographic sclerosis in the femoral heads, right greater than left, indicating osteonecrosis. No cortical collapse. IMPRESSION: 1. Findings consistent with interstitial edematous pancreatitis. This represents acute on chronic pancreatitis. The pancreatic duct stent is no longer in place and not visualized within the abdomen and pelvis, presumably removed or passed. No acute peripancreatic fluid collection. 2. Reactive peripancreatic lymph nodes. 3. Evidence of prior granulomatous infection. 4. Hepatic steatosis. 5. Osteonecrosis of the femoral heads, right greater than left. Electronically signed by: Paul Coronado M.D. 04/07/2018 8:17 AM Consultations: [facility] Hook/Dr Zelaya Pending Studies/Follow-Up: Please refer to hospital course below. Medication Reconciliation Continued Medications: Albuterol Hfa (Ventolin Hfa) 200 Puffs/47851 Mcg Aers 2 PUFFS INH Q4 PRN for Cough Amlodipine (Norvasc) 10 Mg Tab 10 MG PO DAILY, TAB Aspirin (Aspirin Ec) 81 Mg Tab 81 MG PO DAILY Atorvastatin (Lipitor) 10 Mg Tab 10 MG PO DAILY, TAB Chlorthalidone (Hygroton) 25 Mg Tab 25 MG PO DAILY, TAB Clopidogrel (Plavix) 75 Mg Tab 75 MG PO DAILY, TAB Dicyclomine HCl (Dicyclomine HCl) 10 Mg Cap 10 MG PO TID PRN for abdominal cramping Docusate Sodium (Colace) 100 Mg Cap 100 MG PO BID PRN for Constipation Escitalopram (Lexapro) 10 Mg Tab 15 MG PO DAILY, TAB Fluticasone Propionate (Nasal) (Flonase Allergy Relief) 50 Mcg/Act Spr 2 SPRAYS JOSE MANUEL DAILY Gabapentin (Neurontin) 400 Mg Cap 400 MG PO TID, CAP Insulin Human Regular (Humulin R) 100 Units/Ml Susp 24 UNITS SQ BID GIVE 24 UNITS AFTER LUNCH AND BEFORE BED Insulin Isophan/Regular (Novolin 70/30) Susp 85 UNITS SC BID, BTL GIVE BEFORE BREAKFAST AND BEFORE SUPPER Ipratropium-Albuterol (Duoneb) 3 Ml Nebu 1 TREATMENT INH QID PRN for SOB/Wheezing, INHA Lorazepam (Ativan) 0.5 Mg Tab 0.5 MG PO Q6H PRN for Anxiety, TAB Losartan Potassium (Cozaar) 100 Mg Tab 100 MG PO QAM, TAB Magnesium Oxide (Mag-Ox) 400 Mg Tab 400 MG PO QAM, TAB Metoprolol Tartrate (Lopressor) (Lopressor) 50 Mg Tab 50 MG PO BID, TAB Mirtazapine (Remeron) 30 Mg Tab 30 MG PO HS Mometasone Furoate-Formoterol (Dulera 200/5 Mcg) 1 Aer Aer 2 PUFFS INH BID for 30 Days, #13 GM 5 Refills Pancrelipase (Lipase-Protease- (Creon) 1 Cap Cap 6000 UNITS PO QID Pantoprazole (Protonix) 40 Mg Tab 40 MG PO DAILY, #30 TAB Ranitidine HCl (Ranitidine 75) 75 Mg Tab 75 MG PO BID Ropinirole Hydrochloride (Requip) 1 Mg Tab 1 MG PO HS for 30 Days, TAB 2 Refills Trazodone Hcl (Trazodone) 50 Mg Tab 50 MG PO HS, TAB Admission Information HPI (per Admitting provider): DATE OF ADMISSION: 04/07/2018 CHIEF COMPLAINT: Abdominal pain. HISTORY OF PRESENT ILLNESS: History obtained from the patient and records. Medical history, significant for recurrent pancreatitis, history of pancreatic divisum, hypertension, hyperlipidemia, DM2 insulin requiring, past tobacco abuse, mood and anxiety disorder, history of CVA, hx PVD, CRI (baseline creatinine 1.3). Recent confinement last week for recurrent pancreatitis. Patient underwent ERCP, stricture dilatation, stone extraction. Patient comfortable on discharge. Last few days, patient noted achy left upper quadrant pain going to her epigastrium with nausea, emesis, good bowel movement. Episodes similar to pancreatitis attacks. Patient seen at PCP's office last week. Outpatient lab work showed a lipase 100. Patient brought to Emergency Room for worsening symptoms, Low-grade fever at home, no cough, no chest pain, no SOB, no bladder symptoms. Denies alcohol intake. At the Emergency Room, patient received Cefoxitin. Patient noted to be drowsy after being given IV Dilaudid at the ER. Physical Exam (per Admitting): VITAL SIGNS: At this time blood pressure was noted to be 144/70, pulse 89, RR 18, temperature 37, sats 98. GENERAL: Uncomfortable, drowsy, in no respiratory distress. Obese. SKIN: Normal color, warm. HEENT: [place] palpebral conjunctivae, no ptosis, dry oral mucosa. NECK: Short neck. Supple. CHEST: Decreased breath sounds. No tenderness. HEART: Regular rate and rhythm, no murmur. ABDOMEN: Distended. LUQ tenderness. EXTREMITIES: min LE edema, no tenderness, no other gross deformities. NEUROLOGIC: Lethargic. No facial asymmetry. No other gross focality. Hospital Course ASSESSMENT: 1. Recurrent pancreatitis , History of Pancreatic Divisum -- recently had an ERCP last 03/30/18 with stricture dilatation and pancreatic stone extraction -- placed on bowel rest, IV fluids GI consulted -- abdominal pain gradually improved Lipase improved from 6000s to 800s -- diet advanced as tolerated cleared for d/c per GI may need repeat ERCP as outpatient 2. Hypertension, stable. -- continue usual medications 3. Hx CVA/PVD as per records. - continue ASA 4. DM2, insulin requiring suboptimal control as of recent outpatient hemoglobin A1c -- Lantus and iSS 5. Chronic renal insufficiency. Creatinine at baseline. Disposition D/c home ff up with PCP in 3-5 days ff up with GI as scheduled Total time spent on discharge = This includes examination of the patient, discharge planning, medication reconciliation, and communication with other providers. Discharge Instructions Discharge Instructions Date of Service April 09, 2018. Admission Reason for Admission: Pancreatitis Discharge Discharge Diagnosis / Problem: RECURRENT PANCREATITIS Discharge Goals Goal(s): Diagnostic testing, Therapeutic intervention Activity Recommendations Activity Limitations: as noted below (INCREASE ACTIVITY GRADUALLY TOLERATED) Lifting Limitations: until after follow-up appointment Exercise/Sports Limitations: until after follow-up appointment Driving or Machine Use: NO DRIVING UNTIL FOLLOW UP WITH PRIMARY CARE PHYSICIAN . Instructions / Follow-Up Instructions / Follow-Up CALL YOUR PRIMARY CARE PHYSICIAN OR RETURN TO ER IMMEDIATELY IF WITH WORSENING OF SYMPTOMS. ENSURE ADEQUATE DAILY FLUID INTAKE. AVOID FATTY FOODS. EAT SMALL MEALS AT A TIME. FOLLOW UP WITH DR. CHAVEZ ON Thursday04/12/18 AT 12:45 PM. FOLLOW UP WITH PSYCHOLOGY INTERN SCHEDULED. Current Hospital Diet Patient's current hospital diet: Diabetes Type 2 Diet, Low Fat Diet Discharge Diet Recommended Diet: AHA Diet (Heart Healthy), Diabetes Type 2 Diet Pending Studies Studies pending at discharge: no Medical Emergencies . Who to Call and When: Medical Emergencies: If at any time you feel your situation is an emergency, please call 911 immediately. . Non-Emergent Contact Non-Emergency issues call your: Primary Care Provider, Meat Lugger Call Non-Emergent contact if: you have a fever, your pain is not controlled, your pain is worsening, your pain is unusual for you, your pain is concerning you, you have any medication questions . . "Provider Documentation" section prepared by Saul Conrad. .
== END 2018-04-09 14:00 | disposition home health service (06) | DRG 439 ==
LOC: EDBD 00:03 → C.EDA 00:04 → C.4E 03:47 → ENRESERV 03:56
PROVIDERS: ADMIT Internal Medicine; ATTEND Internal Medicine
DX: K86.1 Other chronic pancreatitis (principal); Q45.3 Other congenital malformations of pancreas and pancreatic duct; I12.9 Hypertensive chronic kidney disease with stage 1 through stage 4 chronic kidney disease, or unspecified chronic kidney disease; E11.22 Type 2 diabetes mellitus with diabetic chronic kidney disease; N18.3 Chronic kidney disease, stage 3 (moderate); E11.40 Type 2 diabetes mellitus with diabetic neuropathy, unspecified; E78.5 Hyperlipidemia, unspecified; F32.9 Major depressive disorder, single episode, unspecified; J44.9 Chronic obstructive pulmonary disease, unspecified; Z79.02 Long term (current) use of antithrombotics/antiplatelets; Z79.4 Long term (current) use of insulin; Z79.82 Long term (current) use of aspirin; Z79.899 Other long term (current) drug therapy; Z86.73 Personal history of transient ischemic attack (TIA), and cerebral infarction without residual deficits; Z87.891 Personal history of nicotine dependence; Z83.3 Family history of diabetes mellitus; Z88.2 Allergy status to sulfonamides; Z88.8 Allergy status to other drugs, medicaments and biological substances; Z88.5 Allergy status to narcotic agent; Z91.041 Radiographic dye allergy status; Z91.040 Latex allergy status

== ENCOUNTER 2019-01-26 13:58 | Inpatient (IN) ==
[2019-01-26] MEDS ORDERED: ASPIRIN CHEW 324 MG PO STA (14:35)
--- NOTE | 2019-01-26 14:42 | Emergency Department Note ---
ED Visit Note I assisted in the care of this patient with Dr. Roth . Resident Activity Tracking Resident Involvement: Resident Care Provided Care Provided: Adult ED
[2019-01-26 14:43] LABS: Basophils # (auto) 0.12 K/uL (0-0.2); Eosinophils # (auto) 1.05 K/uL (0-0.5); Eosinophils % (auto) 9.1 %; Hematocrit (blood only) 35.9 % (37-47); Hemoglobin 12.6 g/dL (12.0-16.0); Immature Granulocytes # (auto) 0.04 K/uL (0.00-0.02); Immature Granulocytes % (auto) 0.3 %; Lymphocytes # (auto) 3.74 K/uL (1.2-3.4); Lymphocytes % (auto) 32.5 %; Mean Corpuscular Hgb Conc 35.1 g/dL (32-36); Mean Corpuscular Volume 87.8 fL (80-100); Mean Platelet Volume 9.5 fL (7.4-10.4); Monocytes # (auto) 0.75 K/uL (0.11-0.59); Monocytes % (auto) 6.5 %; Neutrophils # (auto) 5.82 K/uL (1.4-6.5); Neutrophils % (auto) 50.6 %; Platelet Count 196 K/uL (130-400); RDW Coefficient of Variation 13.4 % (11.5-14.5); RDW Standard Deviation 43.1 fL (36.4-46.3); Red Blood Count 4.09 M/uL (4.2-5.4); White Blood Count 11.52 K/uL (4.8-10.8)
[2019-01-26] MEDS ORDERED: SODIUM CHLORIDE 0.9% 1000ML 1,000 ML IV SCH ×2 (14:45→19:00)
[2019-01-26 14:54] LABS: INR 1.1 (0.9-1.1); Partial Thromboplastin Ratio 0.9; Partial Thromboplastin Time 25.4 Seconds (21.0-31.0); Prothrombin Time 10.9 Seconds (9.0-12.0)
[2019-01-26 15:01] LABS: BUN Creatinine Ratio 12.4 (10-20); Blood Urea Nitrogen 21 mg/dl (7-18); Calcium 8.6 mg/dl (8.5-10.1); Carbon Dioxide 23 mmol/L (21-32); Chloride 106 mmol/L (98-107); Creatinine Clr Calc Pharmacy 23.5 ml/min; Est GFR (African American) 32.4; Glucose 292 mg/dl (70-99); Potassium 4.7 mmol/L (3.5-5.1); Sodium 136 mmol/L (136-145)
[2019-01-26 15:08] LABS: Troponin I < 0.015 ng/ml (0-0.045)
[2019-01-26] MEDS ORDERED: ACETAMINOPHEN 325 MG TAB PO STA (15:37)
[2019-01-26] MEDS ORDERED: GI COCKTAIL ED USE PO ONE (15:55)
--- NOTE | 2019-01-26 15:55 | XRay Report ---
XR chest 2V routine HISTORY: 78 years-old Female Chest Pain acute atypical chest pain COMPARISON: Chest radiograph 08/05/2018 TECHNIQUE: AP and lateral views of the chest FINDINGS: Cardiac silhouette is enlarged, unchanged. Dense mitral annular calcifications noted. Stable position ing of the right pectoral [id number] catheter. Lungs are hypoinflated. Suggestion of mild pulmonar y vascular congestion. Mild right hemidiaphragmatic elevation with subsegmental left basilar opacitie s/scarring. No pneumothorax or large pleural effusion. Degenerative changes of the shoulders and spin e. IMPRESSION: 1. Hypoinflation. 2. Cardiomegaly with suggestion of mild pulmonary vascular congestion. 3. Subsegmental atelectasis/scarring of the left lung base. The above report was generated using voice recognition software. It may contain grammatical, syntax o r spelling errors. Electronically signed by: Rob Juarez M.D. 01/26/2019 3:54 PM
[2019-01-26] MEDS ORDERED: SODIUM CHLORIDE 0.9% 1000ML 1,000 ML IV ONE (16:14)
[2019-01-26] MEDS ORDERED: NITROGLYCERIN SL 0.4 MG/TAB TAB SL STA (16:14)
[2019-01-26] MEDS ORDERED: NITROGLYCERIN SL 0.4 MG/TAB TAB SL PRN (16:31)
[2019-01-26] MEDS ORDERED: KETOROLAC TROMETHAMINE 15 MG/ML VIAL IV STA (17:08)
[2019-01-26] MEDS ORDERED: ONDANSETRON INJ 2 MG/ML 2 ML VIAL IV STA (17:08)
--- NOTE | 2019-01-26 17:11 | Emergency Department Note ---
Entered by Pierre Griffin acting as a scribe for Casper Roth History of Present Illness General Chief complaint: Chest Pain Time Seen by Provider: 01/26/19 14:19 Source: patient Limitations: no limitations History of Present Illness Provider complaint: Chest Pain Onset (ago): day(s) (yesterday) Location: chest Radiation: extremity (right arm) Pain Consistency: + constant Maximum Pain Intensity: 4 Current Pain Intensity: 7 Quality: + other ("sitting on chest" ) Associated symptoms: + diaphoresis, + headaches, + nausea/vomiting (No vomiting) and + other (Blurred vision); no cough The patient is a 78 year old female who presents to the Emergency Room with complaints of constant chest pain that began yesterday. The patient notes that she first developed chest pain yesterday afternoon, which she describes as "someone sitting on my chest." She rates the severity of this pain as a 7/10. The patient also notes that there is pain intermittently radiating down the right arm, and adds that last night there was pain in her left neck and the back of her head. She complains of blurred vision with nausea, but denies any vomiting. The patient notes pain in her right upper quadrant, but states this is chronic as she has stents in her gallbladder. She denies any falls/trauma, cough, long trips or rides, or hormone creams. Home Medications Home Medications Medication Instructions Recorded Confirmed Type albuterol sulfate [Proventil HFA] 2 puff INHALATION QID PRN 08/24/18 01/26/19 H istory amlodipine [Norvasc] 10 mg PO QAM 08/24/18 01/26/19 History aspirin 1 tab PO QPM 08/24/18 01/26/19 History atorvastatin [Lipitor] 10 mg PO QPM 08/24/18 01/26/19 History clopidogrel [Plavix] 75 mg PO QAM 08/24/18 01/26/19 History dicyclomine 10 mg PO TID PRN 08/24/18 01/26/19 History docusate sodium [Colace] 100 mg PO DAILY PRN 08/24/18 01/26/19 History escitalopram oxalate [Lexapro] 15 mg PO QPM 08/24/18 01/26/19 History fluticasone [Flonase Allergy 2 spray INTRANASAL QPM PRN 08/24/18 01/26/19 History Relief] gabapentin [Neurontin] 800 mg PO HS 08/24/18 01/26/19 History insulin NPH and regular human 85 units SUBCUT BID 08/24/18 01/26/19 History [Humulin 70/30 U-100 Insulin] insulin regular human [Humulin R 24 units SUBCUT BID 08/24/18 01/26/19 History Regular U-100 Insuln] [id number] [Creon] 1 tab PO QID 08/24/18 01/26/19 History lorazepam [Ativan] 0.5 mg PO Q6 PRN 08/24/18 01/26/19 History magnesium oxide 400 mg PO QAM 08/24/18 01/26/19 History metoprolol tartrate [Lopressor] 50 mg PO BID 08/24/18 01/26/19 History ondansetron HCl [Zofran] 4 mg PO QID PRN 08/24/18 01/26/19 History ranitidine HCl [Zantac 75] 75 mg PO BID 08/24/18 01/26/19 History trazodone 50 mg PO HS 08/24/18 01/26/19 History albuterol sulfate 2.5 mg INHALATION QID PRN 01/26/19 01/26/19 History chlorthalidone 25 mg PO DAILY 01/26/19 01/26/19 History levocetirizine [Xyzal] 2.5 mg PO QPM 01/26/19 01/26/19 History losartan 100 mg PO QAM 01/26/19 01/26/19 History mirtazapine 45 mg PO HS 01/26/19 01/26/19 History mometasone-formoterol [Dulera] 2 puff INHALATION BID PRN 01/26/19 01/26/19 History ropinirole 1 mg PO HS 01/26/19 01/26/19 History Allergies Allergy/AdvReac Type Severity Reaction Status Date / Time Iodinated Contrast- Oral and Allergy Severe RASH TO Verified 01/26/19 15:38 IV Dye IVP DYE,NAUSEA, FAINTING, COUGHING, GAGGING, HEADACH Sulfa (Sulfonamide Allergy Severe HIVES, Verified 01/26/19 15:38 Antibiotics) FACIAL AND ARM SWELLING cerivastatin Allergy Intermediate HIVES Verified 01/26/19 15:38 codeine Allergy Intermediate "PRICKLY Verified 01/26/19 15:38 RASH" hydroxyzine Allergy Intermediate N/V Verified 01/26/19 15:38 latex Allergy Intermediate DERMATITIS-PT Verified 01/26/19 15:38 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 A LATEX CATHETER 03/26/08 Bactrim Allergy Mild RASH Verified 04/29/18 14:40 diphenhydramine Allergy Mild RASH; Verified 01/26/19 15:38 SLEEPINESS WITH "PHARBEDRYL" loratadine Allergy Mild HIVES Verified 01/26/19 15:38 sulfamethoxazole Allergy Mild RASH Verified 01/26/19 15:38 trimethoprim Allergy Mild RASH Verified 01/26/19 15:38 prednisone Allergy Unknown elevates Verified 01/26/19 15:38 blood sugar tetanus toxoid, adsorbed AdvReac Intermediate SWELLING Verified 01/26/19 15:38 AT INJECTION SITE alprazolam AdvReac Unknown "SLEEPY Verified 01/26/19 15:38 STUPER" metformin AdvReac Unknown DIARRHEA Verified 01/26/19 15:38 morphine AdvReac Unknown VOMITING Verified 01/26/19 15:38 simvastatin AdvReac Unknown COUGH, Verified 01/26/19 15:38 "DISCOMFORT" Past Med/Surg History Medical History Chronic pancreatitis (Chronic) Cerebrovascular disease (Chronic) "history stroke and TIA" L sided weakness. Fatty liver (Chronic) Esophageal dysmotility (Chronic) Gastroparesis (Chronic) Pancreatic divisum (Chronic) CKD (chronic kidney disease), stage III (Chronic) Anxiety Aortic stenosis mild. Asthma Atrial fibrillation COPD (chronic obstructive pulmonary disease) Depression Diabetes mellitus, type 2 Hx of bronchitis currently no s/s Hyperlipidemia Hypertension Osteoarthritis Pancreatitis Restless leg syndrome Seasonal allergies Sleep apnea does not use cpap Stroke state 2 mini strokes Surgical History History of ERCP x3 with stents. ERCP 04/30/18. MAC 3, grade 2 view. 7.0 ETT placed. No issues. History of bilateral tubal ligation History of cataract surgery both eyes History of colonoscopy Family History Daughter No problems noted. 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 and A total of 10 systems reviewed and were otherwise negative Physical Exam Vital Signs Vital Signs - 24 hr 01/26/19 14:05 01/26/19 14:07 01/26/19 14:12 Temperature 36.6 C Temperature Source Oral Sepsis Recent Fever Within 48 Hours No Sepsis New/Unexplained Change in Mental Status No Sepsis Action Taken by Nursing No Action Required Pulse Rate 82 81 81 Pulse Rate from SpO2 Sensor 82 80 Respiratory Rate 15 16 24 Blood Pressure 170/75 H 170/75 H Blood Pressure Mean 106 106 Pulse Oximetry 98 98 97 Oxygen Delivery Method Room Air 01/26/19 14:30 01/26/19 14:41 01/26/19 14:42 Temperature Temperature Source Sepsis Recent Fever Within 48 Hours Sepsis New/Unexplained Change in Mental Status Sepsis Action Taken by Nursing Pulse Rate 80 76 Pulse Rate from SpO2 Sensor 81 76 Respiratory Rate 21 Blood Pressure 149/93 H Blood Pressure Mean 111 Pulse Oximetry 98 98 97 Oxygen Delivery Method Room Air 01/26/19 15:00 01/26/19 15:01 01/26/19 15:30 Temperature Temperature Source Sepsis Recent Fever Within 48 Hours Sepsis New/Unexplained Change in Mental Status Sepsis Action Taken by Nursing Pulse Rate 75 75 73 Pulse Rate from SpO2 Sensor 75 75 73 Respiratory Rate 13 19 18 Blood Pressure 154/88 H 168/76 H Blood Pressure Mean 110 106 Pulse Oximetry 97 97 98 Oxygen Delivery Method 01/26/19 15:31 01/26/19 15:54 01/26/19 16:00 Temperature Temperature Source Sepsis Recent Fever Within 48 Hours Sepsis New/Unexplained Change in Mental Status Sepsis Action Taken by Nursing Pulse Rate 74 77 81 Pulse Rate from SpO2 Sensor 73 Respiratory Rate 17 27 H 21 Blood Pressure 180/94 H Blood Pressure Mean 122 Pulse Oximetry 98 Oxygen Delivery Method 01/26/19 16:02 01/26/19 16:30 01/26/19 16:31 Temperature Temperature Source Sepsis Recent Fever Within 48 Hours Sepsis New/Unexplained Change in Mental Status Sepsis Action Taken by Nursing Pulse Rate 78 83 82 Pulse Rate from SpO2 Sensor Respiratory Rate 20 20 17 Blood Pressure 190/86 H 133/79 Blood Pressure Mean 120 97 Pulse Oximetry Oxygen Delivery Method 01/26/19 17:05 01/26/19 17:06 Temperature Temperature Source Sepsis Recent Fever Within 48 Hours Sepsis New/Unexplained Change in Mental Status Sepsis Action Taken by Nursing Pulse Rate 75 73 Pulse Rate from SpO2 Sensor Respiratory Rate 23 14 Blood Pressure 188/76 H Blood Pressure Mean 113 Pulse Oximetry Oxygen Delivery Method Physical Exam GENERAL: She is oriented to person, place, and time. She appears well-developed and well-nourished. She does not appear distressed. ____ HENT: Exam performed. -Head: Normocephalic and atraumatic. -Right Ear: External ear normal. No mastoid tenderness. -Left Ear: External ear normal. No mastoid tenderness. -Mouth/Throat: The oropharynx is clear and moist. No trismus in the jaw. No dental abscesses or uvula swelling. No oropharyngeal exudate or tonsillar abscesses. ____ EYES: Conjunctivae and EOM are normal. Pupils are equal, round, and reactive to light. Right eye exhibits no discharge. Left eye exhibits no discharge. No scleral icterus. ____ NECK: Normal range of motion. Neck supple. No JVD present. No spinous process tenderness present. No carotid bruit present. No rigidity. No tracheal deviation and normal range of motion present. No Brudzinski's sign and no Kernig's sign noted. ____ CV: Normal rate, regular rhythm, normal heart sounds and intact distal pulses. There is no peripheral edema. Palpable radial pulses bue. ____ PULM/CHEST: Chest wall port placed in the right chest. Effort normal and breath sounds normal. No respiratory distress. No stridor. She has no wheezes. She has no rales. - Chest Wall: She exhibits no tenderness. ____ ABD: The abdomen is soft. Bowel sounds are normal. She has no distension. No mass is present. There is no tenderness. There is no rebound, no guarding, no Gonzalez's sign and no tenderness at McBurney's point. Rovsig negative MUSC/SKEL: Normal range of motion. There is no peripheral edema, tenderness or deformity. LYMPH: No cervical adenopathy. ____ NEURO: She is alert and oriented to person, place, and time. She has normal strength. No cranial nerve deficit or sensory deficit. Coordination and gait normal. GCS eye subscore is 4. GCS verbal subscore is 5. GCS motor subscore is 6. cerbellar tests wnl. ____ SKIN: Skin is warm and dry. She is not diaphoretic. ____ PSYCH: She has a normal mood and affect. Her behavior is normal. Judgment and thought content normal. ____ Course 1439: Past medical records reviewed. The patient was evaluated in room A9B, and a complete history and physical examination were performed. 1709: Vital signs stable. EKG shows a new left bundle branch block. Sgarbosa sign negative. Troponin chest x-ray negative. Patient reports her chest pain is better status post SL nitro. I checked on the patient. She is agreeable to inpatient stay. I reviewed the patient's case with Alla Bundy [facility] Hospitalist DELLA. She will evaluate the patient for further management. She states to admit to Dr. Braxton service. 1712: I discussed the case with Dr[facility] Braxton [facility] He requests that I discuss with the on-call heart-alert doctor, Dr. Ferrell. I explained that the patient has a new LBBB and TWI in lead 1 and aVL and is Sgarbossa c riteria negative. He still requests that I discuss with the oil laboratory analyst attending. 1714: I discussed the case with Dr. Ferrell - Interventional Cardiology. He states to call heart alert and he will be down to see the patient. 1754: Dr. Ferrell decided to take the patient to the oil laboratory analyst. Administered Medications Nitroglycerin (Nitrostat) 0.4 mg SL PRN PRN PRN Reason: Chest Pain Stop: 02/25/19 16:30 Last Admin: 01/26/19 16:41 Dose: 0.4 mg Documented by: [id number] Discontinued Medications Acetaminophen (Tylenol) 650 mg PO NOW STA Stop: 01/26/19 15:38 Last Admin: 01/26/19 15:50 Dose: 650 mg Documented by: [id number] Al Hydrox/Mg Hydrox/Simethicone () 1 dose PO ONE ONE Stop: 01/26/19 15:56 Last Admin: 01/26/19 16:16 Dose: 1 dose Documented by: [id number] Aspirin (Aspirin) 324 mg PO NOW STA Stop: 01/26/19 14:36 Last Admin: 01/26/19 14:53 Dose: Not Given Documented by: [id number] Sodium Chloride (Nss 1000ml) 1,000 mls @ 999 mls/hr IV .Q1H1M JOHN Stop: 01/26/19 15:45 Last Infusion: 01/26/19 15:50 Dose: 999 mls/hr Documented by: [id number] Admin: 01/26/19 14:54 Dose: 999 mls/hr Documented by: [id number] Sodium Chloride (Nss 1000ml) 1,000 mls @ 999 mls/hr IV .Q1H1M ONE Stop: 01/26/19 17:14 Last Admin: 01/26/19 16:23 Dose: 999 mls/hr Documented by: [id number] Ketorolac Tromethamine (Toradol) 15 mg IV NOW STA Stop: 01/26/19 17:09 Last Admin: 01/26/19 17:22 Dose: 15 mg Documented by: [id number] Nitroglycerin (Nitrostat) 0.4 mg SL NOW STA Stop: 01/26/19 16:15 Last Admin: 01/26/19 16:22 Dose: 0.4 mg Documented by: [id number] Ondansetron HCl (Zofran) 4 mg IV NOW STA Stop: 01/26/19 17:09 Last Admin: 01/26/19 17:22 Dose: 4 mg Documented by: [id number] Medical Decision Making Medical Records Attestation: I reviewed the patient's medical records. Home Medications Current Medication List: was personally reviewed by me Laboratory Data Attestation: I reviewed the patient's lab results. Result diagrams: 01/26/19 14:20 01/26/19 14:20 Lab Results 01/26/19 01/26/19 01/26/19 Range/Units 14:20 14:20 14:20 WBC 11.52 H (4.8-10.8) K/uL RBC 4.09 L (4.2-5.4) M/uL Hgb 12.6 (12.0-16.0) g/dL Hct 35.9 L (37-47) % MCV 87.8 (80-100) fL MCH 30.8 (25-34) pg MCHC 35.1 (32-36) g/dL RDW Std Deviation 43.1 (36.4-46.3) fL RDW Coeff of Stormy 13.4 (11.5-14.5) % Plt Count 196 (130-400) K/uL MPV 9.5 (7.4-10.4) fL Immature Gran % (Auto) 0.3 % Neut % (Auto) 50.6 % Lymph % (Auto) 32.5 % [place] % (Auto) 6.5 % Eos % (Auto) 9.1 % Baso % (Auto) 1.0 % Immature Gran # (Auto) 0.04 H (0.00-0.02) K/uL Neut # (Auto) 5.82 (1.4-6.5) K/uL Lymph # (Auto) 3.74 H (1.2-3.4) K/uL [place] # (Auto) 0.75 H (0.11-0.59) K/uL Eos # (Auto) 1.05 H (0-0.5) K/uL Baso # (Auto) 0.12 (0-0.2) K/uL PT 10.9 (9.0-12.0) Seconds INR 1.1 (0.9-1.1) APTT 25.4 (21.0-31.0) Seconds PTT Ratio 0.9 Sodium 136 (136-145) mmol/L Potassium 4.7 (3.5-5.1) mmol/L Chloride 106 (98-107) mmol/L Carbon Dioxide 23 (21-32) mmol/L Anion Gap 7.0 (3-11) BUN 21 H (7-18) mg/dl Creatinine 1.72 H (0.6-1.2) mg/dl Est Cr Clr Drug Dosing 23.5 ml/min Est GFR ( Amer) 32.4 Est GFR (Non-Af Amer) 28.0 BUN/Creatinine Ratio 12.4 (10-20) Glucose 292 H (70-99) mg/dl Calcium 8.6 (8.5-10.1) mg/dl Troponin I < 0.015 (0-0.045) ng/ml Lipase 481 H (73-393) U/L Imaging Data Attestation: I personally reviewed and interpreted this imaging study as follow s: Radiologist's Impression: XR chest 2V routine HISTORY: 78 years-old Female Chest Pain acute atypical chest pain COMPARISON: Chest radiograph 08/05/2018 TECHNIQUE: AP and lateral views of the chest FINDINGS: Cardiac silhouette is enlarged, unchanged. Dense mitral annular calcifications noted. Stable positioning of the right pectoral [id number] catheter. Lungs are hypoinflated. Suggestion of mild pulmonary vascular congestion. Mild right hemidiaphragmatic elevation with subsegmental left basilar opacities/scarring. No pneumothorax or large pleural effusion. Degenerative changes of the shoulders and spine. IMPRESSION: 1. Hypoinflation. 2. Cardiomegaly with suggestion of mild pulmonary vascular congestion. 3. Subsegmental atelectasis/scarring of the left lung base. The above report was generated using voice recognition software. It may contain grammatical, syntax or spelling errors. Electronically signed by: Rob Juarez M.D. 01/26/2019 3:54 PM ECG Data Attestation: I personally reviewed and interpreted this ECG as follows: Indication: chest pain Rate (beats per minute): 80 Rhythm: sinus rhythm Findings: + LBBB and + T-wave inversion (aVL and Lead 1); no ST depression and no ST elevation Comparison ECG Date: from (Significantly changed from Previous EKG from 10/2017) Change: the following changes noted (Significantly changed from Previous EKG from 10/2017) Additional Comments: REPEAT EKG: SR at 75 bpm, FL and QTC within normal limits. QRS is 122. LBBB present. TWI in aVL. Sgarbosa negative. Blood Pressure Blood Pressure Findings: Elevated blood pressure Blood Pressure Disposition: Referred to patients primary care provider [facility] Narrative 1439: Past medical records reviewed. The patient was evaluated in room A9B, and a complete history and physical examination were performed. 1709: Vital signs stable. EKG shows a new left bundle branch block. Sgarbosa sign negative. Troponin chest x-ray negative. Patient reports her chest pain is better status post SL nitro. I checked on the patient. She is agreeable to inpatient stay. I reviewed the patient's case with Alla Bundy [facility] Hospitalist DELLA. She will evaluate the patient for further management. She states to admit to Dr. Braxton service. 1712: I discussed the case with Dr[facility] Braxton [facility]. He requests that I discuss with the on-call heart-alert doctor, Dr. Ferrell. I explained that the patient has a new LBBB and TWI in lead 1 and aVL and is Sgarbossa criteria negative. He still requests that I discuss with the oil laboratory analyst attending. 1714: I discussed the case with Dr. Ferrell - Interventional Cardiology. He states to call heart alert and he will be down to see the patient. 1754: Dr. Ferrell decided to take the patient to the oil laboratory analyst. Impression & Plan Chest pain, unspecified, New onset left bundle branch block (LBBB) Critical Care Time I have personally spent greater than 36 minutes of critical care time in the direct management of this patient. This includes bedside care, interpretation of diagnostic studies, and testing, discussion with consultants, patient, and family members, and other required patient management activities. This [] minutes is in excess of all separately billable procedures. Critical Care Time: Yes Total Critical Care Time: 36 Discharge Plan Visit Data Chief Complaint: Chest Pain ED Provider: Casper Roth ED Midlevel Provider: Francisco Javier Bang Discharge Problem: Chest pain, unspecified, New onset left bundle branch block (LBBB) Patient Disposition: Being Evaluated by Hospitalist Discharge Instructions Interventions: ED Discharge Assessment Last Done: 01/26/19 17:50 Discharge Problem: Chest pain, unspecified Qualifiers: Chest pain type: unspecified Qualified Code(s): R07.9 - Chest pain, unspecified The scribe's documentation has been prepared under my direction and personally reviewed by me in its entirety. I confirm that the note above accurately reflects all work, treatment, procedures, and medical decision making performed by me.
[2019-01-26] MEDS ORDERED: NITROGLYCERIN/D5W 100MCG/ML 20ML SYR ONE (17:33)
[2019-01-26] MEDS ORDERED: NiCARDipine HCL INJ 2.5 MG/ML 10 ML AMP ONE (17:33)
[2019-01-26] MEDS ORDERED: fentaNYL citrate 100 MCG/2 ML VIAL ONE (17:33)
[2019-01-26] MEDS ORDERED: MIDAZOLAM HCL 1 MG/ML 2ML VIAL ONE (17:33)
[2019-01-26] MEDS ORDERED: HEPARIN (PORCINE) 1000 UNIT/ML 10 ML (CATH LAB USE ONLY) ONE (17:33)
[2019-01-26] MEDS ORDERED: HYDROCORTISONE SOD SUCCINATE 100 MG/2 ML VIAL ONE (17:51)
[2019-01-26] MEDS ORDERED: TICAGRELOR 90 MG TAB PO ONE (18:18)
--- NOTE | 2019-01-26 18:20 | History & Physical Report ---
Date of Service January 26, 2019 Assessment & Plan (1) Left bundle branch block: (2) Unstable angina: Pt presented to ER from PCP's office with CP reported started last night Found to have LBBB on EKG which is new from prior EKGs In ER pt afebrile, P: 81, R: 16, BP: 170/75, 98% on RA. WBC: 11. Negative initial troponin CXR: Hypoinflation. Cardiomegaly with suggestion of mild pulmonary vascular congestion. Subsegmental atelectasis/scarring of the left lung base. -In ER was given ASA 324mg, 1L NSS, GI cocktail without relief. SL nitro x 2 with some relief of CP -Heart alert called and pt taken to [facility]. Had stent placed to RCA and circumflex -ASA, ticagrelor -atorvastin dose increased -continue metoprolol -trend troponin -EKG in am -cardiology on board, appreciate recommendations (3) Chronic pancreatitis: Hx chronic pancreatitis with hx pancreatic stent placement. Chronic back pain. Denies abdominal pain at this time. WBC: 11, lipase: 481 -IVF -monitor (4) Diabetes mellitus, type II: A1c: 9.2 on 12/07/18. Hx poorly controlled diabetes. Pt with hx difficult to control BSG's and hypoglycemic episodes during hospitalizations in past -glycemic pharmacy consult -will hold home NPH -Novolog sliding scale, Lantus (5) HTN (hypertension): -continue metoprolol, amlodipine -hold chlorthalidone and reevaluate tomorrow (6) Dyslipidemia: -atorvastatin dose increased by cardiology (7) Cerebrovascular disease: Hx CVA -continue dual platelet therapy, statin (8) CKD (chronic kidney disease), stage III: Cr: 1.7. Baseline ~1.3-1.4 -monitor renal functions (9) COPD (chronic obstructive pulmonary disease): -continue home inhalers -xopenex prn SOB/wheezing (10) Depression: (11) Anxiety: -continue mirtazapine, continue ativan prn anxiety (12) RLS (restless legs syndrome): (13) Insomnia: -continue ropinirole, trazodone, DVT Prophylaxis -Heparin SQ Full Code as per discussion with pt Follows with Dr Lee for routine care Pt was seen with Dr Pérez. See addendum History of Present Illness Chief Complaint: CP Primary Care Provider: Colleen Jefferson Pt is 78 y/o F with PMH asthma, COPD, anxiety, depression, HTN, HLD, DM II, CKD III, chronic pancreatitis s/p stent, h/o pancreatic cyst, fatty liver, sleep apnea, CVA, peripheral neuropathy, RLS, insomnia presented to ER from clinic with c/o CP. Pt states last night around dinner time started with mid CP and R arm paresthesias. Also c/o nausea and SOB and pleuritic CP. Increased SOB with walking. Pt states this pain feels different than her typical pancreatitis pain. States has chronic mid back pain. Last night reports dizziness which has improved today. Denies vomiting. Reports hx nasal congestion for past 2-3 months and has tried Flonase, Saline nasal spray without significant relief. Denies hx DVT/PE. Denies known cardiac history. Denies fever/chills, diaphoresis, D/C, WALKER, syncope, vision changes, neck pain, orthopnea, palpitations, cough, sore throat, choking, otalgia, abdominal pain, weakness, extremity weakness, extremity edema, rashes, urinary symptoms. Hx Echo 03/2016: EF: 60-65%, no wall abnormalities, grade I diastolic dysfunction Hx stress test 2013 that was unremarkable Allergies Allergy/AdvReac Type Severity Reaction Status Date / Time Iodinated Contrast- Oral and Allergy Severe RASH TO Verified 01/26/19 15:38 IV Dye IVP DYE,NAUSEA, FAINTING, COUGHING, GAGGING, HEADACH Sulfa (Sulfonamide Allergy Severe HIVES, Verified 01/26/19 15:38 Antibiotics) FACIAL AND ARM SWELLING cerivastatin Allergy Intermediate HIVES Verified 01/26/19 15:38 codeine Allergy Intermediate "PRICKLY Verified 01/26/19 15:38 RASH" hydroxyzine Allergy Intermediate N/V Verified 01/26/19 15:38 latex Allergy Intermediate DERMATITIS-PT Verified 01/26/19 15:38 TOLERATED A LATEX CATHETER 03/26/08 Bactrim Allergy Mild RASH Verified 04/29/18 14:40 diphenhydramine Allergy Mild RASH; Verified 01/26/19 15:38 SLEEPINESS WITH "PHARBEDRYL" loratadine Allergy Mild HIVES Verified 01/26/19 15:38 sulfamethoxazole Allergy Mild RASH Verified 01/26/19 15:38 trimethoprim Allergy Mild RASH Verified 01/26/19 15:38 prednisone Allergy Unknown elevates Verified 01/26/19 15:38 blood sugar tetanus toxoid, adsorbed AdvReac Intermediate SWELLING Verified 01/26/19 15:38 AT INJECTION SITE alprazolam AdvReac Unknown "SLEEPY Verified 01/26/19 15:38 STUPER" metformin AdvReac Unknown DIARRHEA Verified 01/26/19 15:38 morphine AdvReac Unknown VOMITING Verified 01/26/19 15:38 simvastatin AdvReac Unknown COUGH, Verified 01/26/19 15:38 "DISCOMFORT" Home Medications Home Medications Medication Instructions Recorded Confirmed Type albuterol sulfate [Proventil HFA] 2 puff INHALATION QID PRN 08/24/18 01/26/19 History amlodipine [Norvasc] 10 mg PO QAM 08/24/18 01/26/19 History aspirin 1 tab PO QPM 08/24/18 01/26/19 History atorvastatin [Lipitor] 10 mg PO QPM 08/24/18 01/26/19 History clopidogrel [Plavix] 75 mg PO QAM 08/24/18 01/26/19 History dicyclomine 10 mg PO TID PRN 08/24/18 01/26/19 History docusate sodium [Colace] 100 mg PO DAILY PRN 08/24/18 01/26/19 History fluticasone [Flonase Allergy 2 spray INTRANASAL QPM PRN 08/24/18 01/26/19 History Relief] gabapentin [Neurontin] 800 mg PO HS 08/24/18 01/26/19 History insulin NPH and regular human 85 units SUBCUT BID 08/24/18 01/26/19 History [Humulin 70/30 U-100 Insulin] insulin regular human [Humulin R 24 units SUBCUT BID 08/24/18 01/26/19 History Regular U-100 Insuln] [id number] [Creon] 1 tab PO QID 08/24/18 01/26/19 History lorazepam [Ativan] 0.5 mg PO Q6 PRN 08/24/18 01/26/19 History magnesium oxide 400 mg PO QAM 08/24/18 01/26/19 History metoprolol tartrate [Lopressor] 50 mg PO BID 08/24/18 01/26/19 History ondansetron HCl [Zofran] 4 mg PO QID PRN 08/24/18 01/26/19 History ranitidine HCl [Zantac 75] 75 mg PO BID 08/24/18 01/26/19 History trazodone 50 mg PO HS 08/24/18 01/26/19 History albuterol sulfate 2.5 mg INHALATION QID PRN 01/26/19 01/26/19 History chlorthalidone 25 mg PO DAILY 01/26/19 01/26/19 History levocetirizine [Xyzal] 2.5 mg PO QPM 01/26/19 01/26/19 History losartan 100 mg PO QAM 01/26/19 01/26/19 History mirtazapine 45 mg PO HS 01/26/19 01/26/19 History mometasone-formoterol [Dulera] 2 puff INHALATION BID PRN 01/26/19 01/26/19 History ropinirole 1 mg PO HS 01/26/19 01/26/19 History Past Med/Surg History Medical History Giant cell arteritis (Resolved) Gastroparesis (Chronic) Dyslipidemia (Chronic) Depression (Chronic) HTN (hypertension) (Chronic) Insomnia (Chronic) RLS (restless legs syndrome) (Chronic) Peripheral neuropathy (Chronic) Pancreatic cyst (Chronic) Anxiety (Chronic) COPD (chronic obstructive pulmonary disease) (Chronic) Diabetes mellitus, type II (Chronic) Sleep apnea (Chronic) Chronic pancreatitis (Chronic) Cerebrovascular disease (Chronic) "history stroke and TIA" L sided weakness. Fatty liver (Chronic) Esophageal dysmotility (Chronic) Gastroparesis (Chronic) Pancreatic divisum (Chronic) CKD (chronic kidney disease), stage III (Chronic) Aortic stenosis (Chronic) mild. Osteoarthritis (Chronic) Seasonal allergies (Chronic) Surgical History History of cataract surgery (Chronic) both eyes History of ERCP (Chronic) x3 with stents. ERCP 04/30/18. MAC 3, grade 2 view. 7.0 ETT placed. No issues. History of bilateral tubal ligation (Chronic) History of colonoscopy (Chronic) Family History Daughter No problems noted. Father Family history of diabetes mellitus Family/Other Family history of diabetes mellitus Mother Family history of diabetes mellitus Grandfather Family history of diabetes mellitus Grandmother Family history of diabetes mellitus Social History Preferred Language: Hungarian Communication Ability: Effective Test Cell Technician Required: No Beliefs That Will Affect Care: None Current Living Situation: Alone Other Information That Helps Us Care for You: No Feels Safe at Home: Yes Safety Concerns: Feels Safe At This Time Smoking Status: Former smoker Hx Alcohol Use: No Hx Substance Use: No Review of Systems All systems reviewed & are unremarkable except as noted in HPI & below Physical Exam Vital Signs (Past 24 Hours): Last Vital Signs Temp 36.6 C 01/26/19 14:07 Pulse 73 01/26/19 17:06 Resp 14 01/26/19 17:06 BP 188/76 H 01/26/19 17:06 Pulse Ox 98 01/26/19 15:31 Physical Exam: General: no distress, WDWN Head: normocephalic, atraumatic Eyes: PERRL, EOM's intact, conjunctiva non-injected, anicteric ENT: normal inspection external ears, nose, mucous membranes moist Neck: supple, trachea midline, non-tender Lungs: clear, no respiratory distress, no wheezing/rhonchi/rales CV: RRR, systolic murmur, no pretibial edema Chest: +tenderness to palpation lower mid chest, no rashes noted Abd: normal BS, soft, non-tender Ext: no cyanosis, no calf tenderness Neuro: A&O x 3, no focal deficits noted, normal affect Skin: warm, dry Results & Data Laboratory Results Short CBC 01/26/19 Range/Units 14:20 WBC 11.52 H (4.8-10.8) K/uL Hgb 12.6 (12.0-16.0) g/dL Hct 35.9 L (37-47) % Plt Count 196 (130-400) K/uL BMP 01/26/19 14:20 Sodium 136 Potassium 4.7 Chloride 106 Carbon Dioxide 23 BUN 21 H Creatinine 1.72 H Glucose 292 H Calcium 8.6 Cardiac Enzymes 01/26/19 Range/Units 14:20 Troponin I < 0.015 (0-0.045) ng/ml Diagnostic Findings CXR: IMPRESSION: 1. Hypoinflation. 2. Cardiomegaly with suggestion of mild pulmonary vascular congestion. 3. Subsegmental atelectasis/scarring of the left lung base. ECG Rate (beats per minute): 80 Rhythm: sinus rhythm Findings: + LBBB Change: the following changes noted (New LBBB) Supervising Physician Co-Signing Physician Notes Patient is admitted patient is a 78-year-old female with history of DM II, CKD III, COPD and other problems presents with history of chest pain, sudden onset at rest since 1 day duration. Reports associated right arm tingling and numbness. States chest pain worsens with increased breathing and is associated with nausea and shortness of breath. Chest pain increases on exertion. EKG showed new left bundle branch block. Initial troponin was negative. Chest x- ray was suggestive of mild pulmonary vascular congestion. Heart alert was called and patient underwent urgent cardiac catheterization and had stents placed for RCA and circumflex. On exam patient is moderately built and nourished, no apparent distress, lungs are clear to auscultation, decreased breath sounds, S1-S2 positive systolic murmur, chest pain re reported usable on palpation, no pedal edema noted, port not down right side of the chest. Patient is diagnosed to have unstable angina and was administed aspirin, Brilinta, statin. Appreciate cardiology help in management of this patient. Patient is transferred to ICU for further management. I personally reviewed the record. Patient is interviewed and examined at bedside. Patient's care is coordinated with Cyndy Bundy PA-C. Please refer to the documentation above for details of patient's presentation and for discussion of other issues.
[2019-01-26] MEDS ORDERED: ONDANSETRON INJ 2 MG/ML 2 ML VIAL IV PRN (18:32)
[2019-01-26] MEDS ORDERED: ATROPINE SULFATE 0.1 MG/ML 10ML SYR IV PRN (18:32)
[2019-01-26] MEDS ORDERED: LORazepam 0.5 MG TAB PO PRN (18:32)
--- NOTE | 2019-01-26 18:53 | Cardiology Consultation ---
Date of Consultation January 26, 2019 Assessment & Plan (1) Unstable angina: Urgent coronary angiography demonstrated two-vessel significant coronary disease with successful coronary stent implantation ostial and proximal circumflex obtuse marginal, mid RCA Plan dual antiplatelet therapy. Increase atorvastatin dosing. Continue prehospitalization beta-aaliyah ARB as well as amlodipine for extensive hypertensive history Echocardiogram ordered for a.m. continue follow-up patient (2) New onset left bundle branch block (LBBB): (3) CKD (chronic kidney disease), stage III: History of Present Illness Reason for Consultation: Unstable angina Requesting Physician: Dr. Pérez History of Present Illness Patient is a 78-year-old female with complex past medical history as outlined below somewhat difficult historian but it carries multiple cardiac risk factors include hypertension hyperlipidemia and known vascular disease and diabetes mellitus presented to primary care physician's office earlier today having developed severe chest pressure described as heavy hard pressure with associated shortness of breath and diaphoresis. Symptoms are severe enough to limited patient ability to walk to the exam room. EKG done in outpatient clinic demonstrated new left bundle branch block of all prior EKG tracings normal he wa s referred to the ER for further evaluation. After period of assessment was recommended she be referred for urgent diagnostic cardiac catheterization. Cardiac catheterization demonstrating high-grade circumflex obtuse marginal stenosis and mid right coronary artery stenosis patient undergone successful stenting of both lesions. Patient was seen post procedure. Symptoms were eased main complaints are chronic abdominal discomfort mild chronic nasal congestion. Allergies Allergy/AdvReac Type Severity Reaction Status Date / Time Iodinated Contrast- Oral and Allergy Severe RASH TO Verified 01/26/19 15:38 IV Dye IVP DYE,NAUSEA, FAINTING, COUGHING, GAGGING, HEADACH Sulfa (Sulfonamide Allergy Severe HIVES, Verified 01/26/19 15:38 Antibiotics) FACIAL AND ARM SWELLING cerivastatin Allergy Intermediate HIVES Verified 01/26/19 15:38 codeine Allergy Intermediate "PRICKLY Verified 01/26/19 15:38 RASH" hydroxyzine Allergy Intermediate N/V Verified 01/26/19 15:38 latex Allergy Intermediate DERMATITIS-PT Verified 01/26/19 15:38 TOLERATED A LATEX CATHETER 03/26/08 Bactrim Allergy Mild RASH Verified 04/29/18 14:40 diphenhydramine Allergy Mild RASH; Verified 01/26/19 15:38 SLEEPINESS WITH "PHARBEDRYL" loratadine Allergy Mild HIVES Verified 01/26/19 15:38 sulfamethoxazole Allergy Mild RASH Verified 01/26/19 15:38 trimethoprim Allergy Mild RASH Verified 01/26/19 15:38 prednisone Allergy Unknown elevates Verified 01/26/19 15:38 blood sugar tetanus toxoid, adsorbed AdvReac Intermediate SWELLING Verified 01/26/19 15:38 AT INJECTION SITE alprazolam AdvReac Unknown "SLEEPY Verified 01/26/19 15:38 STUPER" metformin AdvReac Unknown DIARRHEA Verified 01/26/19 15:38 morphine AdvReac Unknown VOMITING Verified 01/26/19 15:38 simvastatin AdvReac Unknown COUGH, Verified 01/26/19 15:38 "DISCOMFORT" Home Medications Home Medications Medication Instructions Recorded Confirmed Type albuterol sulfate [Proventil HFA] 2 puff INHALATION QID PRN 08/24/18 01/26/19 History amlodipine [Norvasc] 10 mg PO QAM 08/24/18 01/26/19 History aspirin 1 tab PO QPM 08/24/18 01/26/19 History atorvastatin [Lipitor] 10 mg PO QPM 08/24/18 01/26/19 History clopidogrel [Plavix] 75 mg PO QAM 08/24/18 01/26/19 History dicyclomine 10 mg PO TID PRN 08/24/18 01/26/19 History docusate sodium [Colace] 100 mg PO DAILY PRN 08/24/18 01/26/19 History fluticasone [Flonase Allergy 2 spray INTRANASAL QPM PRN 08/24/18 01/26/19 History Relief] gabapentin [Neurontin] 800 mg PO HS 08/24/18 01/26/19 History insulin NPH and regular human 85 units SUBCUT BID 08/24/18 01/26/19 History [Humulin 70/30 U-100 Insulin] insulin regular human [Humulin R 24 units SUBCUT BID 08/24/18 01/26/19 History Regular U-100 Insuln] [id number] [Creon] 1 tab PO QID 08/24/18 01/26/19 History lorazepam [Ativan] 0.5 mg PO Q6 PRN 08/24/18 01/26/19 History magnesium oxide 400 mg PO QAM 08/24/18 01/26/19 History metoprolol tartrate [Lopressor] 50 mg PO BID 08/24/18 01/26/19 History ondansetron HCl [Zofran] 4 mg PO QID PRN 08/24/18 01/26/19 History ranitidine HCl [Zantac 75] 75 mg PO BID 08/24/18 01/26/19 History trazodone 50 mg PO HS 08/24/18 01/26/19 History albuterol sulfate 2.5 mg INHALATION QID PRN 01/26/19 01/26/19 History chlorthalidone 25 mg PO DAILY 01/26/19 01/26/19 History levocetirizine [Xyzal] 2.5 mg PO QPM 01/26/19 01/26/19 History losartan 100 mg PO QAM 01/26/19 01/26/19 History mirtazapine 45 mg PO HS 01/26/19 01/26/19 History mometasone-formoterol [Dulera] 2 puff INHALATION BID PRN 01/26/19 01/26/19 History ropinirole 1 mg PO HS 01/26/19 01/26/19 History Patient History Medical History Giant cell arteritis (Resolved) Gastroparesis (Chronic) Dyslipidemia (Chronic) Depression (Chronic) HTN (hypertension) (Chronic) Insomnia (Chronic) RLS (restless legs syndrome) (Chronic) Peripheral neuropathy (Chronic) Pancreatic cyst (Chronic) Anxiety (Chronic) COPD (chronic obstructive pulmonary disease) (Chronic) Diabetes mellitus, type II (Chronic) Sleep apnea (Chronic) Chronic pancreatitis (Chronic) Cerebrovascular disease (Chronic) "history stroke and TIA" L sided weakness. Fatty liver (Chronic) Esophageal dysmotility (Chronic) Gastroparesis (Chronic) Pancreatic divisum (Chronic) CKD (chronic kidney disease), stage III (Chronic) Aortic stenosis (Chronic) mild. Osteoarthritis (Chronic) Seasonal allergies (Chronic) Surgical History History of cataract surgery (Chronic) both eyes History of ERCP (Chronic) x3 with stents. ERCP 04/30/18. MAC 3, grade 2 view. 7.0 ETT placed. No issues. History of bilateral tubal ligation (Chronic) History of colonoscopy (Chronic) Family History Daughter No problems noted. Father Family history of diabetes mellitus Family/Other Family history of diabetes mellitus Mother Family history of diabetes mellitus Grandfather Family history of diabetes mellitus Grandmother Family history of diabetes mellitus Social History Preferred Language: Korean Communication Ability: Effective Leaf Conditioner Required: No Beliefs That Will Affect Care: None Current Living Situation: Alone Other Information That Helps Us Care for You: No Feels Safe at Home: Yes Safety Concerns: Feels Safe At This Time Smoking Status: Former smoker Hx Alcohol Use: No Hx Substance Use: No Review of Systems As per HPI Physical Exam Vital Signs (Past 24 Hours): Last Vital Signs Temp 36.6 C 01/26/19 14:07 Pulse 73 01/26/19 17:06 Resp 14 01/26/19 17:06 BP 188/76 H 01/26/19 17:06 Pulse Ox 98 01/26/19 15:31 Physical Exam: Obese age-appropriate female currently complaining of nasal congestion more comfortable. HEENT exam is normocephalic atraumatic extraocular muscles intact Neck thick there is no distinct jugular venous distention or carotid bruit Lungs mildly diminished breath sounds diffusely no rhonchi rales or wheeze Cardiovascular exam regular somewhat distant heart sounds with a grade 1/6 systolic murmur no diastolic murmur Abdomen obese soft without palpable hepatosplenomegaly. Minimal tenderness to deep palpation Extremities intact distal pulses with trace edema Results & Data Laboratory Results Laboratory Results - last 24 hr 01/26/19 01/26/19 01/26/19 14:20 14:20 14:20 WBC 11.52 H RBC 4.09 L Hgb 12.6 Hct 35.9 L MCV 87.8 MCH 30.8 MCHC 35.1 RDW Std Deviation 43.1 RDW Coeff of Stormy 13.4 Plt Count 196 MPV 9.5 Immature Gran % (Auto) 0.3 Neut % (Auto) 50.6 Lymph % (Auto) 32.5 [place] % (Auto) 6.5 Eos % (Auto) 9.1 Baso % (Auto) 1.0 Immature Gran # (Auto) 0.04 H Neut # (Auto) 5.82 Lymph # (Auto) 3.74 H [place] # (Auto) 0.75 H Eos # (Auto) 1.05 H Baso # (Auto) 0.12 PT 10.9 INR 1.1 APTT 25.4 PTT Ratio 0.9 Sodium 136 Potassium 4.7 Chloride 106 Carbon Dioxide 23 Anion Gap 7.0 BUN 21 H Creatinine 1.72 H Est Cr Clr Drug Dosing 23.5 Est GFR ( Amer) 32.4 Est GFR (Non-Af Amer) 28.0 BUN/Creatinine Ratio 12.4 Glucose 292 H Calcium 8.6 Troponin I < 0.015 Lipase 481 H
[2019-01-26] MEDS ORDERED: GLUCOSE 10 TABS/TUBE PO PRN (18:54)
[2019-01-26] MEDS ORDERED: GLUCAGON FOR INJ 1 MG VIAL SQ PRN (18:54)
[2019-01-26] MEDS ORDERED: LEVALBUTEROL HCL 0.63 MG/3 ML NEB NEB PRN (18:54)
[2019-01-26] MEDS ORDERED: CARBOHYDRATES FOR HYPOGLYCEMIA PO PRN (18:54)
[2019-01-26] MEDS ORDERED: GLUCOSE 40% GEL 15 GM TUBE PO PRN (18:54)
[2019-01-26] MEDS ORDERED: ICU PROTOCOL FOR HYPERGLYCEMIA PRN (18:54)
[2019-01-26] MEDS ORDERED: DEXTROSE 50% 50 ML SYRINGE IV PRN (18:54)
[2019-01-26] MEDS ORDERED: HYDROmorphone INJ 0.5 MG/0.5 ML SYR IV PRN (18:57)
[2019-01-26] MEDS ORDERED: PHARMACY GLYCEMIC MGMT CONSULT PRN (19:02)
[2019-01-26] MEDS: DULERA~ORDER AWAITING ACTION SCH (19:53)
[2019-01-26] MEDS: METOPROLOL TARTRATE 50 MG TAB PO SCH (19:55)
[2019-01-26] MEDS: GABAPENTIN 400 MG CAP PO SCH (19:55)
[2019-01-26] MEDS: ROPINIROLE HCL 1 MG TABLET PO SCH (19:56)
[2019-01-26] MEDS: HEPARIN SOD 5,000 UNIT/0.5 ML VIAL SQ SCH (20:31)
[2019-01-26] MEDS ORDERED: INSULIN ASPART 100 UNITS/ML 3 ML PEN SC SCH (21:00)
[2019-01-26] MEDS ORDERED: INSULIN GLARGINE SOLOSTAR 100 UNITS/ML 3 ML PEN SC SCH (21:00)
[2019-01-26] MEDS ORDERED: FLUTICASONE PROPIONATE NA SPR 16 GM BTL PRN (21:04)
[2019-01-26] MEDS: TRAZODONE HCL 50 MG TAB PO SCH (22:04)
[2019-01-27] MEDS ORDERED: INSULIN ASPART 100 UNITS/ML 3 ML PEN SC SCH
[2019-01-27] MEDS: DULERA~ORDER AWAITING ACTION SCH ×3 (00:29→16:07)
[2019-01-27] MEDS ORDERED: INSULIN REGULAR 250 UNITS in SODIUM CHLORIDE 0.9% 247.5 ML IV SCH (00:45)
[2019-01-27] MEDS ORDERED: NovoLIN-R BOLUS FROM BAG IV ONE (00:45)
[2019-01-27] MEDS ORDERED: ACETAMINOPHEN 325 MG TAB PO PRN (05:42)
[2019-01-27] MEDS: TICAGRELOR 90 MG TAB PO SCH ×2 (05:58→18:10)
[2019-01-27 06:17] LABS: Hematocrit (blood only) 32.2 % (37-47); Hemoglobin 11.3 g/dL (12.0-16.0); Mean Corpuscular Hgb Conc 35.1 g/dL (32-36); Mean Corpuscular Volume 86.8 fL (80-100); Mean Platelet Volume 9.5 fL (7.4-10.4); Platelet Count 183 K/uL (130-400); RDW Coefficient of Variation 13.4 % (11.5-14.5); RDW Standard Deviation 42.8 fL (36.4-46.3); Red Blood Count 3.71 M/uL (4.2-5.4); White Blood Count 11.99 K/uL (4.8-10.8)
--- NOTE | 2019-01-27 06:49 | Operative Report ---
DATE OF OPERATION: 01/26/2019 INDICATIONS: Resting typical anginal chest pain in a 78-year-old hypertensive, diabetic, hypercholesterolemic female with a left bundle branch block by today's EKG. New was compared to EKG of 10/2017. PROCEDURE PERFORMED: Left heart catheterization, coronary cineangiography, PCI with drug-eluting stent times two (2), 2-vessel circumflex posterolateral branch and mid right coronary artery, radiological interpretation and supervision. METHOD: Upon arrival in the medical laboratory scientist, the patient was prepped and draped in usual sterile fashion. After local infiltration of 2% lidocaine, a 6-Congolese sheath was placed in the right radial artery. Intra-arterial nicardipine and nitroglycerin were administered. Intravenous heparin was administered and titrated to an ACT on the order of 200-250 seconds. The sheath was aspirated and flushed. A 5-Congolese diagnostic TIG 4.0 catheter was advanced over wire under fluoroscopic guidance to the central circulation, where it was aspirated and flushed. After confirmation of adequate waveforms, it was advanced into the left mainstem. Cineangiograms of the left coronary artery were obtained. Catheter was then used to gauge origin of the right coronary artery. Cineangiograms of the right coronary artery were obtained and reviewed. The catheter used to cross the aortic valve in retrograde fashion. Left ventricular end diastolic pressure was measured. Catheter was removed from the left ventricle to the aorta under continuous pressure monitoring from the body over the wire. The sheath was aspirated and flushed. A 6-Congolese EBU 3.5 guiding catheter was advanced over wire under fluoroscopic guidance through the central circulation, where it was aspirated and flushed. After confirmation of adequate waveforms, it was advanced into the left main. Cineangiograms of the circumflex posterolateral branch were obtained and reviewed. A 0.014-inch Nursing Program Coordinator wire was advanced through the guiding catheter across the distal circumflex posterolateral branch. A 2.0 Sprinter 15 angioplasty catheter positioned in the ostial circumflex posterolateral branch, inflated to maximum pressure less than a minute. Balloon was withdrawn. A 2.5 Xience 12 stent was positioned in the ostial circumflex posterolateral branch, inflated to maximum pressure less than a minute. Balloon was withdrawn. Final cineangiograms were obtained and the wire was removed from the coronary artery guiding catheter through the left main and fluoroscopic guidance was brought over the sheath was aspirated and flushed. A 6-Congolese AR2 guiding catheter was advanced over wire with fluoroscopic guidance into the central circulation, which was aspirated and flushed. After confirmation of adequate waveform, it was advanced into the right coronary artery. Cineangiograms of the right coronary artery was reviewed, reprepped 0.014-inch Nursing Program Coordinator wire was advanced through the guiding catheter across the ostial stenosis to the apical PDA. A reprepped 2.0 Sprinter 15 angioplasty catheter positioned in 2 locations in the proximal to mid right coronary artery, inflated to maximum pressure less than a minute. Balloon was withdrawn. A 2.5 Xience 23 stent was positioned in the proximal to mid right coronary artery, inflated to maximum pressure less than a minute. Balloon was withdrawn. A 2.5 NC Sprinter 15 angioplasty catheter positioned at the distal then proximal extent of the stented segment and inflated on 2 occasions to maximum pressure for less than a minute. Balloon was withdrawn. Final cineangiograms were obtained. The wire was removed from the coronary artery. The guiding catheter removed from the right coronary artery under fluoroscopic guidance from the body where the sheath was aspirated and flushed. An external compression device was deployed over the right radial artery. The patient returned to her room in good condition. COMPLICATIONS: None. FINDINGS: Left main has a distal 20% noncritical stenosis of a relatively large vessel. Left anterior descending artery and a moderate sized first diagonal branch are free of significant disease. Left circumflex is technically free of significant disease. Very small first circumflex marginal branch is without obstructive disease. The first posterolateral branch is a small to moderate size vessel with an ostial 90% stenosis. The remainder of the circumflex beyond the first circumflex posterolateral branch, and a small second posterolateral branch are free of significant disease. The right coronary artery is moderate in caliber with a segment (10+ mm) proximal to mid 80% stenosis before the first RV branch. The remainder of the right coronary artery, the posterior descending artery, the posterior AV extension of the right coronary, posterolateral branches arise are all free of significant disease. Left ventricular end diastolic pressure is normal. No significant aortic valve gradient was demonstrated, at least moderate mitral annular calcification is present. Final cineangiograms demonstrated no residual stenosis, no uncovered dissection, GABY grade 3 flow in the circumflex, circumflex posterolateral branch and right coronary arteries. IMPRESSION: Successful angioplasty and drug-eluting stent placement circumflex posterolateral branch of right coronary artery. Recommendation is for dual antiplatelet therapy for 1 year as feasible. I attest to the content of the Intraoperative Record and any orders documented therein. Any exception s are noted below.
[2019-01-27 06:51] LABS: Albumin Level 2.6 gm/dl (3.4-5.0); BUN Creatinine Ratio 14.2 (10-20); Creatinine Clr Calc Pharmacy 34.8 ml/min; Est GFR (African American) 52.2; Est GFR (Non-African American) 45.1; Magnesium 1.8 mg/dl (1.8-2.4); Potassium 4.1 mmol/L (3.5-5.1)
[2019-01-27 06:59] LABS: Albumin Globulin Ratio 0.8 (0.9-2); Bilirubin,Total 0.2 mg/dl (0.2-1); Globulin 3.2 gm/dl (2.5-4.0); Total Protein 5.8 gm/dl (6.4-8.2); Troponin I 0.066 ng/ml (0-0.045)
[2019-01-27] MEDS: AMLODIPINE BESYLATE 5 MG TAB PO SCH (08:22)
[2019-01-27] MEDS: LOSARTAN POTASSIUM 50 MG TAB PO SCH (08:22)
[2019-01-27] MEDS: METOPROLOL TARTRATE 50 MG TAB PO SCH ×2 (08:22→21:27)
[2019-01-27] MEDS: ATORVASTATIN 40 MG TAB PO SCH (08:22)
[2019-01-27] MEDS: INSULIN ASPART 100 UNITS/ML 3 ML PEN SC SCH ×5 (08:23→23:53)
[2019-01-27] MEDS: HEPARIN SOD 5,000 UNIT/0.5 ML VIAL SQ SCH ×2 (08:24→21:33)
[2019-01-27] MEDS ORDERED: ASPIRIN 81 MG ECTAB PO SCH ×2 (09:00→22:00)
[2019-01-27] MEDS ORDERED: INSULIN GLARGINE SOLOSTAR 100 UNITS/ML 3 ML PEN SC SCH (09:00)
--- NOTE | 2019-01-27 09:43 | Critical Care Consultation ---
Date of Consultation January 27, 2019 Assessment & Plan (1) Left bundle branch block: Reason Critically Ill: 78-year-old female to be a new left BBB with chest pain, heart code initiated and GAETANO x2 placed in circumflex and RCA. Neuro - [facility] ICU: Negative Cardiac - Left BBB/unstable angina-S/P cardiac cath with GAETANO x2 in circumflex and RCA -Troponin 0.06 this a.m., monitor -Continue aspirin, Brilinta, atorvastatin, Plavix -Continue MTP, losartan -f/u EKG from this a.m. - f/u echo report -Lipid panel unremarkable Hypertension- MTP, losartan, amlodipine Respiratory - COPD�currently comfortable on room air -Chest x-ray: Mild pulmonary vascular congestion, hypoinflation -Continue AA nebs, Flonase, xyzal, Duplera GI - Chronic pancreatitis-lipase elevated, LFTs WNL -Continue home meds -Monitor RENAL/LYTES - CKD stage III-/BUN 1.16/17 stable -GFR 45 -Ensure renal perfusion, and hydration - Robles, strict I's and O's ENDO - Diabetes type 2�continue ACHS insulin therapy -ICU glycemic control protocol HEME - H&H stable, maximize electrolytes and monitor with routine BMPs ID - No indication for antibiotics at this time LINES/IV ACCESS - Peripheral IVs DVT PROPHYLAXIS - SCDs, heparin subcu (2) HTN (hypertension): (3) Unstable angina: (4) COPD (chronic obstructive pulmonary disease): Supervising Physician Co-Signing Physician Notes I have seen and examined this patient with [Jono Blanco] and agree with his assessment and plan of care. We are going to continue with current plan of care as prescribed. Will continue with current management as prescribed. The patient is post cardiac cath and stent placement. Overall she seems to be doing better and her chest pain is completely gone. She will be following with the personnel analyst as well as her primary care physician. Dr. Kyler Brown. History of Present Illness Attending Physician: Jacky Epps DO History of Present Illness Ms. Cherry is a 78-year-old female with past medical history (s/P stent placement), COPD, hypertension, hyperlipidemia, diabetes type 2, CKD stage III, CVA who presented yesterday from clinic to ER with complaints of arm numbness and midsternal chest pain from the night before. She was found to have a new onset of left bundle branch block. She was taken to the [facility] where GAETANO to place RCA and circumflex. This a.m. patient claims chest pain has improved, and sensation to right arm has returned to normal. She denies nausea vomiting, shortness of breath. She does report occasional dizziness, slight headache. Of note, patient claims she has had nasal congestion since October. Patient remains hemodynamically stable and is okay to downgrade to telemetry. Allergies Allergy/AdvReac Type Severity Reaction Status Date / Time Iodinated Contrast- Oral and Allergy Severe RASH TO Verified 01/26/19 15:38 IV Dye IVP DYE,NAUSEA, FAINTING, COUGHING, GAGGING, HEADACH Sulfa (Sulfonamide Allergy Severe HIVES, Verified 01/26/19 15:38 Antibiotics) FACIAL AND ARM SWELLING cerivastatin Allergy Intermediate HIVES Verified 01/26/19 15:38 codeine Allergy Intermediate "PRICKLY Verified 01/26/19 15:38 RASH" hydroxyzine Allergy Intermediate N/V Verified 01/26/19 15:38 latex Allergy Intermediate DERMATITIS-PT Verified 01/26/19 15:38 TOLERATED A LATEX CATHETER 03/26/08 Bactrim Allergy Mild RASH Verified 04/29/18 14:40 diphenhydramine Allergy Mild RASH; Verified 01/26/19 15:38 SLEEPINESS WITH "PHARBEDRYL" loratadine Allergy Mild HIVES Verified 01/26/19 15:38 sulfamethoxazole Allergy Mild RASH Verified 01/26/19 15:38 trimethoprim Allergy Mild RASH Verified 01/26/19 15:38 prednisone Allergy Unknown elevates Verified 01/26/19 15:38 blood sugar tetanus toxoid, adsorbed AdvReac Intermediate SWELLING Verified 01/26/19 15:38 AT INJECTION SITE alprazolam AdvReac Unknown "SLEEPY Verified 01/26/19 15:38 STUPER" metformin AdvReac Unknown DIARRHEA Verified 01/26/19 15:38 morphine AdvReac Unknown VOMITING Verified 01/26/19 15:38 simvastatin AdvReac Unknown COUGH, Verified 01/26/19 15:38 "DISCOMFORT" Home Medications Home Medications Medication Instructions Recorded Confirmed Type albuterol sulfate [Proventil HFA] 2 puff INHALATION QID PRN 08/24/18 01/26/19 History amlodipine [Norvasc] 10 mg PO QAM 08/24/18 01/26/19 History aspirin 1 tab PO QPM 08/24/18 01/26/19 History atorvastatin [Lipitor] 10 mg PO QPM 08/24/18 01/26/19 History clopidogrel [Plavix] 75 mg PO QAM 08/24/18 01/26/19 History dicyclomine 10 mg PO TID PRN 08/24/18 01/26/19 History docusate sodium [Colace] 100 mg PO DAILY PRN 08/24/18 01/26/19 History fluticasone [Flonase Allergy 2 spray INTRANASAL QPM PRN 08/24/18 01/26/19 History Relief] gabapentin [Neurontin] 800 mg PO HS 08/24/18 01/26/19 History insulin NPH and regular human 85 units SUBCUT BID 08/24/18 01/26/19 History [Humulin 70/30 U-100 Insulin] insulin regular human [Humulin R 24 units SUBCUT BID 08/24/18 01/26/19 History Regular U-100 Insuln] [id number] [Creon] 1 tab PO QID 08/24/18 01/26/19 History lorazepam [Ativan] 0.5 mg PO Q6 PRN 08/24/18 01/26/19 History magnesium oxide 400 mg PO QAM 08/24/18 01/26/19 History metoprolol tartrate [Lopressor] 50 mg PO BID 08/24/18 01/26/19 History ondansetron HCl [Zofran] 4 mg PO QID PRN 08/24/18 01/26/19 History ranitidine HCl [Zantac 75] 75 mg PO BID 08/24/18 01/26/19 History trazodone 50 mg PO HS 08/24/18 01/26/19 History albuterol sulfate 2.5 mg INHALATION QID PRN 01/26/19 01/26/19 History chlorthalidone 25 mg PO DAILY 01/26/19 01/26/19 History levocetirizine [Xyzal] 2.5 mg PO QPM 01/26/19 01/26/19 History losartan 100 mg PO QAM 01/26/19 01/26/19 History mirtazapine 45 mg PO HS 01/26/19 01/26/19 History mometasone-formoterol [Dulera] 2 puff INHALATION BID PRN 01/26/19 01/26/19 History ropinirole 1 mg PO HS 01/26/19 01/26/19 History Patient History Medical History Giant cell arteritis (Resolved) Gastroparesis (Chronic) Dyslipidemia (Chronic) Depression (Chronic) HTN (hypertension) (Chronic) Insomnia (Chronic) RLS (restless legs syndrome) (Chronic) Peripheral neuropathy (Chronic) Pancreatic cyst (Chronic) Anxiety (Chronic) COPD (chronic obstructive pulmonary disease) (Chronic) Diabetes mellitus, type II (Chronic) Sleep apnea (Chronic) Chronic pancreatitis (Chronic) Cerebrovascular disease (Chronic) "history stroke and TIA" L sided weakness. Fatty liver (Chronic) Esophageal dysmotility (Chronic) Gastroparesis (Chronic) Pancreatic divisum (Chronic) CKD (chronic kidney disease), stage III (Chronic) Aortic stenosis (Chronic) mild. Osteoarthritis (Chronic) Seasonal allergies (Chronic) Surgical History History of cataract surgery (Chronic) both eyes History of ERCP (Chronic) x3 with stents. ERCP 04/30/18. MAC 3, grade 2 view. 7.0 ETT placed. No issues. History of bilateral tubal ligation (Chronic) History of colonoscopy (Chronic) Family History Daughter No problems noted. Father Family history of diabetes mellitus Family/Other Family history of diabetes mellitus Mother Family history of diabetes mellitus Grandfather Family history of diabetes mellitus Grandmother Family history of diabetes mellitus Social History Communication Ability: Effective Beliefs That Will Affect Care: None Current Living Situation: Alone Other Information That Helps Us Care for You: No Feels Safe at Home: Yes Safety Concerns: Feels Safe At This Time Smoking Status: Former smoker Hx Alcohol Use: No Hx Substance Use: No Review of Systems Constitutional: as per Subjective / HPI Physical Exam Vital Signs (Past 24 Hours): Last Vital Signs Temp 36.3 C L 01/27/19 08:00 Pulse 71 01/27/19 09:28 Resp 20 01/27/19 09:28 BP 169/84 H 01/27/19 09:28 Pulse Ox 97 01/27/19 09:28 Constitutional: well nourished, cooperative and comfortable Eyes: PERRL, conjunctivae normal, anicteric sclerae ENMT: external ear and nose normal, oropharynx normal Nose: + nasal discharge Throat: + postnasal drainage Neck: trachea midline, no thyromegaly Respiratory: normal respiratory effort, lungs clear to auscultation Cardiovascular: RRR, no murmur, no edema Rate/Rhythm: regular rate and regular rhythm Gastrointestinal (Abdomen): normal bowel sounds, soft, nontender, no hepatosplenomegaly Skin: no rashes, warm and dry Small hematoma right wrist sensation insertion site. Good collateral blood flow. Right hand is warm. Neurologic: PERRL, EOMI, accommodation nl, no face palsy, no dysarthria Headache, dizziness Results & Data Laboratory Results Laboratory Results - last 24 hr 01/26/19 01/26/19 01/26/19 14:20 14:20 14:20 WBC 11.52 H RBC 4.09 L Hgb 12.6 Hct 35.9 L MCV 87.8 MCH 30.8 MCHC 35.1 RDW Std Deviation 43.1 RDW Coeff of Stormy 13.4 Plt Count 196 MPV 9.5 Immature Gran % (Auto) 0.3 Neut % (Auto) 50.6 Lymph % (Auto) 32.5 [place] % (Auto) 6.5 Eos % (Auto) 9.1 Baso % (Auto) 1.0 Immature Gran # (Auto) 0.04 H Neut # (Auto) 5.82 Lymph # (Auto) 3.74 H [place] # (Auto) 0.75 H Eos # (Auto) 1.05 H Baso # (Auto) 0.12 PT 10.9 INR 1.1 APTT 25.4 PTT Ratio 0.9 Sodium 136 Potassium 4.7 Chloride 106 Carbon Dioxide 23 Anion Gap 7.0 BUN 21 H Creatinine 1.72 H Est Cr Clr Drug Dosing 23.5 Est GFR ( Amer) 32.4 Est GFR (Non-Af Amer) 28.0 BUN/Creatinine Ratio 12.4 Glucose 292 H POC Glucose Calcium 8.6 Magnesium Total Bilirubin AST ALT Alkaline Phosphatase Troponin I < 0.015 Total Protein Albumin Globulin Albumin/Globulin Ratio Triglycerides Cholesterol LDL Cholesterol, Calc VLDL Cholesterol, Calc HDL Cholesterol Cholesterol/HDL Ratio Lipase 481 H Nasal Screen MRSA (PCR) 01/26/19 01/26/19 01/26/19 18:56 19:54 23:53 WBC RBC Hgb Hct MCV MCH MCHC RDW Std Deviation RDW Coeff of Stormy Plt Count MPV Immature Gran % (Auto) Neut % (Auto) Lymph % (Auto) [place] % (Auto) Eos % (Auto) Baso % (Auto) Immature Gran # (Auto) Neut # (Auto) Lymph # (Auto) [place] # (Auto) Eos # (Auto) Baso # (Auto) PT INR APTT PTT Ratio Sodium Potassium Chloride Carbon Dioxide Anion Gap BUN Creatinine Est Cr Clr Drug Dosing Est GFR ( Amer) Est GFR (Non-Af Amer) BUN/Creatinine Ratio Glucose POC Glucose 209 H 313 H Calcium Magnesium Total Bilirubin AST ALT Alkaline Phosphatase Troponin I Total Protein Albumin Globulin Albumin/Globulin Ratio Triglycerides Cholesterol LDL Cholesterol, Calc VLDL Cholesterol, Calc HDL Cholesterol Cholesterol/HDL Ratio Lipase Nasal Screen MRSA (PCR) Negative 01/27/19 01/27/19 01/27/19 01:38 02:37 03:32 WBC RBC Hgb Hct MCV MCH MCHC RDW Std Deviation RDW Coeff of Stormy Plt Count MPV Immature Gran % (Auto) Neut % (Auto) Lymph % (Auto) [place] % (Auto) Eos % (Auto) Baso % (Auto) Immature Gran # (Auto) Neut # (Auto) Lymph # (Auto) [place] # (Auto) Eos # (Auto) Baso # (Auto) PT INR APTT PTT Ratio Sodium Potassium Chloride Carbon Dioxide Anion Gap BUN Creatinine Est Cr Clr Drug Dosing Est GFR ( Amer) Est GFR (Non-Af Amer) BUN/Creatinine Ratio Glucose POC Glucose 314 H 257 H 221 H Calcium Magnesium Total Bilirubin AST ALT Alkaline Phosphatase Troponin I Total Protein Albumin Globulin Albumin/Globulin Ratio Triglycerides Cholesterol LDL Cholesterol, Calc VLDL Cholesterol, Calc HDL Cholesterol Cholesterol/HDL Ratio Lipase Nasal Screen MRSA (PCR) 01/27/19 01/27/19 01/27/19 04:31 05:34 05:57 WBC RBC Hgb Hct MCV MCH MCHC RDW Std Deviation RDW Coeff of Stormy Plt Count MPV Immature Gran % (Auto) Neut % (Auto) Lymph % (Auto) [place] % (Auto) Eos % (Auto) Baso % (Auto) Immature Gran # (Auto) Neut # (Auto) Lymph # (Auto) [place] # (Auto) Eos # (Auto) Baso # (Auto) PT INR APTT PTT Ratio Sodium 141 Potassium 4.1 Chloride 110 H Carbon Dioxide 24 Anion Gap 7.0 BUN 17 Creatinine 1.16 D Est Cr Clr Drug Dosing 34.8 Est GFR ( Amer) 52.2 Est GFR (Non-Af Amer) 45.1 BUN/Creatinine Ratio 14.2 Glucose 171 H POC Glucose 245 H 222 H Calcium 8.0 L Magnesium 1.8 Total Bilirubin 0.2 AST 17 ALT 27 Alkaline Phosphatase 89 Troponin I 0.066 H* Total Protein 5.8 L Albumin 2.6 L Globulin 3.2 Albumin/Globulin Ratio 0.8 L Triglycerides 166 H Cholesterol 138 LDL Cholesterol, Calc 68 VLDL Cholesterol, Calc 33 HDL Cholesterol 37 Cholesterol/HDL Ratio 4 Lipase Nasal Screen MRSA (PCR) 01/27/19 01/27/19 01/27/19 05:57 06:32 08:07 WBC 11.99 H RBC 3.71 L Hgb 11.3 L Hct 32.2 L MCV 86.8 MCH 30.5 MCHC 35.1 RDW Std Deviation 42.8 RDW Coeff of Stormy 13.4 Plt Count 183 MPV 9.5 Immature Gran % (Auto) Neut % (Auto) Lymph % (Auto) [place] % (Auto) Eos % (Auto) Baso % (Auto) Immature Gran # (Auto) Neut # (Auto) Lymph # (Auto) [place] # (Auto) Eos # (Auto) Baso # (Auto) PT INR APTT PTT Ratio Sodium Potassium Chloride Carbon Dioxide Anion Gap BUN Creatinine Est Cr Clr Drug Dosing Est GFR ( Amer) Est GFR (Non-Af Amer) BUN/Creatinine Ratio Glucose POC Glucose 151 H 211 H Calcium Magnesium Total Bilirubin AST ALT Alkaline Phosphatase Troponin I Total Protein Albumin Globulin Albumin/Globulin Ratio Triglycerides Cholesterol LDL Cholesterol, Calc VLDL Cholesterol, Calc HDL Cholesterol Cholesterol/HDL Ratio Lipase Nasal Screen MRSA (PCR) 01/27/19 09:17 WBC RBC Hgb Hct MCV MCH MCHC RDW Std Deviation RDW Coeff of Stormy Plt Count MPV Immature Gran % (Auto) Neut % (Auto) Lymph % (Auto) [place] % (Auto) Eos % (Auto) Baso % (Auto) Immature Gran # (Auto) Neut # (Auto) Lymph # (Auto) [place] # (Auto) Eos # (Auto) Baso # (Auto) PT INR APTT PTT Ratio Sodium Potassium Chloride Carbon Dioxide Anion Gap BUN Creatinine Est Cr Clr Drug Dosing Est GFR ( Amer) Est GFR (Non-Af Amer) BUN/Creatinine Ratio Glucose POC Glucose 268 H Calcium Magnesium Total Bilirubin AST ALT Alkaline Phosphatase Troponin I Total Protein Albumin Globulin Albumin/Globulin Ratio Triglycerides Cholesterol LDL Cholesterol, Calc VLDL Cholesterol, Calc HDL Cholesterol Cholesterol/HDL Ratio Lipase Nasal Screen MRSA (PCR) Medications Administered Home Medications albuterol sulfate [Proventil HFA] 2 puff INHALATION QID PRN 08/24/18 [History Confirmed 01/26/19] amlodipine [Norvasc] 10 mg PO QAM 08/24/18 [History Confirmed 01/26/19] aspirin 1 tab PO QPM 08/24/18 [History Confirmed 01/26/19] atorvastatin [Lipitor] 10 mg PO QPM 08/24/18 [History Confirmed 01/26/19] clopidogrel [Plavix] 75 mg PO QAM 08/24/18 [History Confirmed 01/26/19] dicyclomine 10 mg PO TID PRN 08/24/18 [History Confirmed 01/26/19] docusate sodium [Colace] 100 mg PO DAILY PRN 08/24/18 [History Confirmed 01/26/19] fluticasone [Flonase Allergy Relief] 2 spray INTRANASAL QPM PRN 08/24/18 [History Confirmed 01/26/19] gabapentin [Neurontin] 800 mg PO HS 08/24/18 [History Confirmed 01/26/19] insulin NPH and regular human [Humulin 70/30 U-100 Insulin] 85 units SUBCUT BID 08/24/18 [History Confirmed 01/26/19] insulin regular human [Humulin R Regular U-100 Insuln] 24 units SUBCUT BID 08/24/18 [History Confirmed 01/26/19] [id number] [Creon] 1 tab PO QID 08/24/18 [History Confirmed 01/26/19] lorazepam [Ativan] 0.5 mg PO Q6 PRN 08/24/18 [History Confirmed 01/26/19] magnesium oxide 400 mg PO QAM 08/24/18 [History Confirmed 01/26/19] metoprolol tartrate [Lopressor] 50 mg PO BID 10/02/18 [History Confirmed 01/26/19] ondansetron HCl [Zofran] 4 mg PO QID PRN 08/24/18 [History Confirmed 01/26/19] ranitidine HCl [Zantac 75] 75 mg PO BID 08/24/18 [History Confirmed 01/26/19] trazodone 50 mg PO HS 08/24/18 [History Confirmed 01/26/19] albuterol sulfate 2.5 mg INHALATION QID PRN 01/26/19 [History Confirmed 01/26/19] chlorthalidone 25 mg PO DAILY 01/26/19 [History Confirmed 01/26/19] levocetirizine [Xyzal] 2.5 mg PO QPM 01/26/19 [History Confirmed 01/26/19] losartan 100 mg PO QAM 01/26/19 [History Confirmed 01/26/19] mirtazapine 45 mg PO HS 01/26/19 [History Confirmed 01/26/19] mometasone-formoterol [Dulera] 2 puff INHALATION BID PRN 01/26/19 [History Confirmed 01/26/19] ropinirole 1 mg PO HS 01/26/19 [History Confirmed 01/26/19] Active Medications Acetaminophen (Tylenol) 650 mg PO Q4H PRN PRN Reason: Pain Stop: 02/26/19 05:41 Last Admin: 01/27/19 05:58 Dose: 650 mg Documented by: Amlodipine Besylate (Norvasc) 10 mg PO [facility] Stop: 02/26/19 08:59 Last Admin: 01/27/19 08:22 Dose: 10 mg Documented by: Aspirin (Ecotrin Ectab) 81 mg PO [facility] Stop: 02/26/19 08:59 Last Admin: 01/27/19 08:22 Dose: 81 mg Documented by: Atorvastatin Calcium (Lipitor) 40 mg PO [facility] Stop: 02/26/19 08:59 Last Admin: 01/27/19 08:22 Dose: 40 mg Documented by: Atropine Sulfate (Atropine Sulfate) 0.5 mg IV UD PRN PRN Reason: bradycardia/hypotension Stop: 02/25/19 18:31 Dextrose (Dextrose 50%) 25 - 50 ml IV UD PRN; Protocol PRN Reason: Hypoglycemia Protocol Stop: 02/25/19 18:53 Fluticasone Propionate (Flonase) 2 sprays NA QPM PRN PRN Reason: allergies Stop: 02/25/19 21:03 Gabapentin (Neurontin) 800 mg PO HS JOHN Stop: 02/25/19 20:59 Last Admin: 01/26/19 19:55 Dose: 800 mg Documented by: Glucagon (Glucagen) 1 mg SQ UD PRN; Protocol PRN Reason: Hypoglycemia Protocol Stop: 02/25/19 18:53 Glucose (Glucose 40%) 15 - 30 gm PO UD PRN; Protocol PRN Reason: Hypoglycemia Protocol Stop: 02/25/19 18:53 Glucose (Dex4 Glucose) 4 - 8 tabs PO UD PRN; Protocol PRN Reason: Hypoglycemia Protocol Stop: 02/25/19 18:53 Heparin Sodium (Porcine) (Heparin Sodium (Porcine)) 5,000 units SQ Q12 JOHN Stop: 02/25/19 20:59 Last Admin: 01/27/19 08:24 Dose: 5,000 units Documented by: Hydromorphone HCl (Dilaudid) 0.5 mg IV Q6H PRN PRN Reason: Pain Stop: 02/09/19 18:56 Insulin Human Regular 250 (units/ Sodium Chloride) 250 mls @ 2.2 mls/hr IV .Q 24H JOHN; Protocol Stop: 02/26/19 00:44 Last Titration: 01/27/19 08:12 Dose: 2.2 units/hr, 2.2 mls/hr Documented by: Magnesium Sulfate/Dextrose (Magnesium Sulfate / D5w) 1 gm in 100 mls @ 100 mls /hr IV Q1H JOHN Stop: 01/27/19 10:59 Insulin Aspart (Novolog Flexpen) 0 units SC [facility] JOHN Stop: 02/26/19 08:59 Last Admin: 01/27/19 08:23 Dose: 7 units Documented by: Levalbuterol HCl (Xopenex 0.63 Mg/3 Ml Neb) 0.63 mg NEB Q6R PRN PRN Reason: Shortness Of Breath Or Wheezing Stop: 02/25/19 18:53 Lorazepam (Ativan) 0.5 mg PO Q6H PRN PRN Reason: Anxiety/Agitation Stop: 02/25/19 18:31 Losartan Potassium (Cozaar) 100 mg PO QAM JOHN Stop: 02/26/19 08:59 Last Admin: 01/27/19 08:22 Dose: 100 mg Documented by: Metoprolol Tartrate (Lopressor) 50 mg PO BID [facility] Stop: 02/25/19 20:59 Last Admin: 01/27/19 08:22 Dose: 50 mg Documented by: Mirtazapine (Remeron Solutab) 45 mg PO HS [facility] Stop: 02/26/19 20:59 Miscellaneous (Icu Protocol For Hyperglycemia) 1 ea N/A PRN PRN; Protocol PRN Reason: Hyperglycemia Protocol Stop: 01/28/19 18:53 Miscellaneous (Carbohydrates For Hypoglycemia) 15 - 30 gm PO UD PRN PRN Reason: Hypoglycemia Treatment Stop: 02/25/19 18:53 Miscellaneous (Order Awaiting Action) 1 ea N/A QS [facility] Stop: 02/25/19 19:29 Last Admin: 01/27/19 07:58 Dose: Not Given Documented by: Miscellaneous Information (Consult Glycemic Management Pharmacy) 1 ea N/A UD PRN; Protocol PRN Reason: Consult Stop: 02/25/19 19:01 Nitroglycerin (Nitrostat) 0.4 mg SL PRN PRN PRN Reason: Chest Pain Stop: 02/25/19 16:30 Last Admin: 01/26/19 16:41 Dose: 0.4 mg Documented by: Ondansetron HCl (Zofran) 4 mg IV Q6H PRN PRN Reason: Nausea And Vomiting Stop: 02/25/19 18:31 Ranitidine HCl (Zantac) 75 mg PO BID [facility] Stop: 02/25/19 20:59 Last Admin: 01/27/19 08:21 Dose: 75 mg Documented by: Ropinirole HCl (Requip) 1 mg PO [facility] Stop: 02/25/19 20:59 Last Admin: 01/26/19 19:56 Dose: 1 mg Documented by: Ticagrelor (Brilinta) 90 mg PO Q12H JOHN Stop: 02/26/19 05:59 Last Admin: 01/27/19 05:58 Dose: 90 mg Documented by: Trazodone HCl (Desyrel) 50 mg PO [facility] Stop: 02/25/19 20:59 Last Admin: 01/26/19 22:04 Dose: 50 mg Documented by:
[2019-01-27] MEDS: MAGNESIUM SULFATE / D5W 1 GM/100 ML BAG IV SCH ×2 (09:59→11:05)
--- NOTE | 2019-01-27 10:20 | Cardiology Progress Note ---
Date of Service January 27, 2019 Assessment & Plan (1) Non-STEMI (non-ST elevated myocardial infarction): Urgent coronary angiography demonstrated two-vessel significant coronary disease with successful coronary stent implantation ostial and proximal circumflex obtuse marginal, mid RCA Plan dual antiplatelet therapy. Increase atorvastatin dosing. Continue prehospitalization beta-aaliyah ARB as well as amlodipine for extensive hypertensive history Patient no acute cardiac symptoms this morning. Anticipate switching Brilinta to clopidogrel given patient concerns regarding insurance coverage and cost Echocardiogram today demonstrates subtle hypokinesis of the posterior wall and a dyssynergy contraction pattern of the septum consistent with left bundle branch block otherwise preserved LV function. There is mild to moderate aortic stenosis moderate severe mitral insufficiency (2) New onset left bundle branch block (LBBB): Remains present on EKG this morning (3) CKD (chronic kidney disease), stage III: Creatinine improved after IV hydration (4) HTN (hypertension): Will likely need additional therapies for blood pressure control we will add oral nitrates to her regimen today Subjective Patient seen and examined, chart medications telemetry reviewed. Feels improved from prior evening no recurrence of chest pressure pain occasional twinges of abdominal discomfort present. Notes no fevers chills or sweats notes no bleeding difficulties blood pressures are trending higher this morning. Blood sugars elevated last evening Renal function improved after IV hydration last evening. Echocardiogram pending EKG continues to demonstrate left bundle branch block with occasional ventricular ectopy Physical Exam Vital Signs (Past 24 Hours): Last Vital Signs Temp 36.3 C L 01/27/19 08:00 Pulse 71 01/27/19 09:28 Resp 20 01/27/19 09:28 BP 169/84 H 01/27/19 09:28 Pulse Ox 97 01/27/19 09:28 Constitutional: + obese; no acute distress Eyes: PERRL, conjunctivae normal, anicteric sclerae Neck: trachea midline, no thyromegaly Respiratory: normal respiratory effort, lungs clear to auscultation Cardiovascular: Rate/Rhythm: regular rate and regular rhythm Heart Sounds: + murmur (Grade 1/6 systolic murmur); no gallop Palpation: normal PMI Vessels: radial pulses present (Right radial access site healing well) Extremities: no edema Gastrointestinal (Abdomen): normal bowel sounds, soft, nontender, no hepatosplenomegaly Musculoskeletal: no cyanosis or clubbing, extremities motor strength 5/5 Results & Data Laboratory Results Laboratory Results - last 24 hr 01/26/19 01/26/19 01/26/19 14:20 14:20 14:20 WBC 11.52 H RBC 4.09 L Hgb 12.6 Hct 35.9 L MCV 87.8 MCH 30.8 MCHC 35.1 RDW Std Deviation 43.1 RDW Coeff of Stormy 13.4 Plt Count 196 MPV 9.5 Immature Gran % (Auto) 0.3 Neut % (Auto) 50.6 Lymph % (Auto) 32.5 Dunn % (Auto) 6.5 Eos % (Auto) 9.1 Baso % (Auto) 1.0 Immature Gran # (Auto) 0.04 H Neut # (Auto) 5.82 Lymph # (Auto) 3.74 H Dunn # (Auto) 0.75 H Eos # (Auto) 1.05 H Baso # (Auto) 0.12 PT 10.9 INR 1.1 APTT 25.4 PTT Ratio 0.9 Sodium 136 Potassium 4.7 Chloride 106 Carbon Dioxide 23 Anion Gap 7.0 BUN 21 H Creatinine 1.72 H Est Cr Clr Drug Dosing 23.5 Est GFR ( Amer) 32.4 Est GFR (Non-Af Amer) 28.0 BUN/Creatinine Ratio 12.4 Glucose 292 H POC Glucose Calcium 8.6 Magnesium Total Bilirubin AST ALT Alkaline Phosphatase Troponin I < 0.015 Total Protein Albumin Globulin Albumin/Globulin Ratio Triglycerides Cholesterol LDL Cholesterol, Calc VLDL Cholesterol, Calc HDL Cholesterol Cholesterol/HDL Ratio Lipase 481 H Nasal Screen MRSA (PCR) 01/26/19 01/26/19 01/26/19 18:56 19:54 23:53 WBC RBC Hgb Hct MCV MCH MCHC RDW Std Deviation RDW Coeff of Stormy Plt Count MPV Immature Gran % (Auto) Neut % (Auto) Lymph % (Auto) Dunn % (Auto) Eos % (Auto) Baso % (Auto) Immature Gran # (Auto) Neut # (Auto) Lymph # (Auto) Dunn # (Auto) Eos # (Auto) Baso # (Auto) PT INR APTT PTT Ratio Sodium Potassium Chloride Carbon Dioxide Anion Gap BUN Creatinine Est Cr Clr Drug Dosing Est GFR ( Amer) Est GFR (Non-Af Amer) BUN/Creatinine Ratio Glucose POC Glucose 209 H 313 H Calcium Magnesium Total Bilirubin AST ALT Alkaline Phosphatase Troponin I Total Protein Albumin Globulin Albumin/Globulin Ratio Triglycerides Cholesterol LDL Cholesterol, Calc VLDL Cholesterol, Calc HDL Cholesterol Cholesterol/HDL Ratio Lipase Nasal Screen MRSA (PCR) Negative 01/27/19 01/27/19 01/27/19 01:38 02:37 03:32 WBC RBC Hgb Hct MCV MCH MCHC RDW Std Deviation RDW Coeff of Stormy Plt Count MPV Immature Gran % (Auto) Neut % (Auto) Lymph % (Auto) Dunn % (Auto) Eos % (Auto) Baso % (Auto) Immature Gran # (Auto) Neut # (Auto) Lymph # (Auto) Dunn # (Auto) Eos # (Auto) Baso # (Auto) PT INR APTT PTT Ratio Sodium Potassium Chloride Carbon Dioxide Anion Gap BUN Creatinine Est Cr Clr Drug Dosing Est GFR ( Amer) Est GFR (Non-Af Amer) BUN/Creatinine Ratio Glucose POC Glucose 314 H 257 H 221 H Calcium Magnesium Total Bilirubin AST ALT Alkaline Phosphatase Troponin I Total Protein Albumin Globulin Albumin/Globulin Ratio Triglycerides Cholesterol LDL Cholesterol, Calc VLDL Cholesterol, Calc HDL Cholesterol Cholesterol/HDL Ratio Lipase Nasal Screen MRSA (PCR) 01/27/19 01/27/19 01/27/19 04:31 05:34 05:57 WBC RBC Hgb Hct MCV MCH MCHC RDW Std Deviation RDW Coeff of Stormy Plt Count MPV Immature Gran % (Auto) Neut % (Auto) Lymph % (Auto) Dunn % (Auto) Eos % (Auto) Baso % (Auto) Immature Gran # (Auto) Neut # (Auto) Lymph # (Auto) Dunn # (Auto) Eos # (Auto) Baso # (Auto) PT INR APTT PTT Ratio Sodium 141 Potassium 4.1 Chloride 110 H Carbon Dioxide 24 Anion Gap 7.0 BUN 17 Creatinine 1.16 D Est Cr Clr Drug Dosing 34.8 Est GFR ( Amer) 52.2 Est GFR (Non-Af Amer) 45.1 BUN/Creatinine Ratio 14.2 Glucose 171 H POC Glucose 245 H 222 H Calcium 8.0 L Magnesium 1.8 Total Bilirubin 0.2 AST 17 ALT 27 Alkaline Phosphatase 89 Troponin I 0.066 H* Total Protein 5.8 L Albumin 2.6 L Globulin 3.2 Albumin/Globulin Ratio 0.8 L Triglycerides 166 H Cholesterol 138 LDL Cholesterol, Calc 68 VLDL Cholesterol, Calc 33 HDL Cholesterol 37 Cholesterol/HDL Ratio 4 Lipase Nasal Screen MRSA (PCR) 01/27/19 01/27/19 01/27/19 05:57 06:32 08:07 WBC 11.99 H RBC 3.71 L Hgb 11.3 L Hct 32.2 L MCV 86.8 MCH 30.5 MCHC 35.1 RDW Std Deviation 42.8 RDW Coeff of Stormy 13.4 Plt Count 183 MPV 9.5 Immature Gran % (Auto) Neut % (Auto) Lymph % (Auto) Dunn % (Auto) Eos % (Auto) Baso % (Auto) Immature Gran # (Auto) Neut # (Auto) Lymph # (Auto) Dunn # (Auto) Eos # (Auto) Baso # (Auto) PT INR APTT PTT Ratio Sodium Potassium Chloride Carbon Dioxide Anion Gap BUN Creatinine Est Cr Clr Drug Dosing Est GFR ( Amer) Est GFR (Non-Af Amer) BUN/Creatinine Ratio Glucose POC Glucose 151 H 211 H Calcium Magnesium Total Bilirubin AST ALT Alkaline Phosphatase Troponin I Total Protein Albumin Globulin Albumin/Globulin Ratio Triglycerides Cholesterol LDL Cholesterol, Calc VLDL Cholesterol, Calc HDL Cholesterol Cholesterol/HDL Ratio Lipase Nasal Screen MRSA (PCR) 01/27/19 01/27/19 09:17 10:04 WBC RBC Hgb Hct MCV MCH MCHC RDW Std Deviation RDW Coeff of Stormy Plt Count MPV Immature Gran % (Auto) Neut % (Auto) Lymph % (Auto) Dunn % (Auto) Eos % (Auto) Baso % (Auto) Immature Gran # (Auto) Neut # (Auto) Lymph # (Auto) Dunn # (Auto) Eos # (Auto) Baso # (Auto) PT INR APTT PTT Ratio Sodium Potassium Chloride Carbon Dioxide Anion Gap BUN Creatinine Est Cr Clr Drug Dosing Est GFR ( Amer) Est GFR (Non-Af Amer) BUN/Creatinine Ratio Glucose POC Glucose 268 H 275 H Calcium Magnesium Total Bilirubin AST ALT Alkaline Phosphatase Troponin I Total Protein Albumin Globulin Albumin/Globulin Ratio Triglycerides Cholesterol LDL Cholesterol, Calc VLDL Cholesterol, Calc HDL Cholesterol Cholesterol/HDL Ratio Lipase Nasal Screen MRSA (PCR)
[2019-01-27] MEDS ORDERED: INSULIN GLARGINE SOLOSTAR 100 UNITS/ML 3 ML PEN SC ONE ×2 (10:45→21:00)
--- NOTE | 2019-01-27 11:43 | Hospitalist Progress Note ---
Date of Service January 27, 2019 Assessment & Plan (1) Left bundle branch block: Status post cath, new onset (2) Unstable angina: Pt presented to ER from PCP's office with CP reported started the previous evening Found to have LBBB on EKG which is new from prior EKGs In ER pt afebrile, P: 81, R: 16, BP: 170/75, 98% on RA. WBC: 11. Negative initial troponin CXR: Hypoinflation. Cardiomegaly with suggestion of mild pulmonary vascular congestion. Subsegmental atelectasis/scarring of the left lung base. -In ER was given ASA 324mg, 1L NSS, GI cocktail without relief. SL nitro x 2 with some relief of CP -Heart alert called and pt taken to culture media laboratory assistant. Had stent placed to RCA and circumflex -ASA, ticagrelor -atorvastin dose increased -continue metoprolol -trend troponin -EKG in am -cardiology took her to the [facility] Generator Operator and place a stent in left circumflex and the RCA. (3) Chronic pancreatitis: Hx chronic pancreatitis with hx pancreatic stent placement. Chronic back pain. Denies abdominal pain -IVF -monitor -ICU post cath (4) Diabetes mellitus, type II: A1c: 9.2 on 12/07/18. Hx poorly controlled diabetes. Pt with hx difficult to control BSG's and hypoglycemic episodes during hospitalizations in past -glycemic pharmacy consult -Insulin drip (5) HTN (hypertension): -continue metoprolol, amlodipine -hold chlorthalidone and reevaluate (6) Dyslipidemia: -atorvastatin dose increased by cardiology (7) Cerebrovascular disease: Hx CVA -continue dual platelet therapy, statin (8) CKD (chronic kidney disease), stage III: -monitor renal functions (9) COPD (chronic obstructive pulmonary disease): -continue home inhalers -xopenex prn SOB/wheezing (10) Depression: No current issues (11) Anxiety: -continue mirtazapine, continue ativan prn anxiety (12) RLS (restless legs syndrome): Mirtazapine (13) Insomnia: -continue ropinirole, trazodone, DVT Prophylaxis -Heparin SQ Full Code as per discussion with pt Follows with Dr Lee for routine care Subjective Patient feels a lot better, status post left heart cath right radial approach, 2 stents placed left circumflex and RCA. Currently on insulin drip, chest pain- free. ROS-No Headache, No Visual Changes, No Nausea, No Vomiting, No Fever, No Chills, No Neck Pain or Stiffness, No Chest Pain, No Palpitations, No SOB, No LAL, No Cough, No Sputum, No Wheezing, No Abdominal Pain, No Diarrhea, No Hematemesis, No Hemoptysis, No Unexpected Weight Loss, No Flank pain, No Melena, No Hematochezia, No Frequency, No Urgency, No Burning, No Hematuria, No Rashes, No Diaphoresis. Appetite is Normal Physical Exam Gen-AAO x 3, NAD, Afebrile, Obese Head-NCAT, EOMI, PERRLA, Anicteric Sclera, No Posterior Pharyngeal Erythema Neck-Supple, No JVD, No Thyromegaly, No Masses, No LAD, No Bruits Lungs-Clear to Auscultation Bilaterally, No Rales, No Rhonchi, No Wheezing, No Crepitus Chest-No S4, +S1, +S2, No S3, No Murmurs, No Rubs, No Gallops, No Ectopy Abdomen-Soft, Bowel Sounds Present, Non Tender, Non Distended, No Hepatomegaly, No Splenomegaly, No Palpable Masses, No Rebound, No Rigidity, No Guarding Musculoskeletal-Full Range of Motion Bilaterally, No CVAT Extremities-No Cyanosis, No Clubbing, No Edema, Cath site c mild bleeding Nuero-Cranial Nerves II-XII grossly intact, Motor WNL, DTRs WNL, Strength WNL, Non Focal Psych-Normal Mood Physical Exam Vital Signs (Past 24 Hours): Last Vital Signs Temp 36.3 C L 01/27/19 08:00 Pulse 71 01/27/19 09:28 Resp 20 01/27/19 09:28 BP 169/84 H 01/27/19 09:28 Pulse Ox 97 01/27/19 09:28 Results & Data Laboratory Results Current Diagnoses Type 2 diabetes mellitus without complications (01/26/19) Hyperlipidemia, unspecified (01/26/19) Major depressive disorder, single episode, unspecified (01/26/19) Anxiety disorder, unspecified (01/26/19) Restless legs syndrome (01/26/19) Insomnia, unspecified (01/26/19) Essential (primary) hypertension (01/26/19) Unstable angina (01/26/19) Non-ST elevation (NSTEMI) myocardial infarction (01/26/19) Left bundle-branch block, unspecified (01/26/19) Cerebrovascular disease, unspecified (01/26/19) Chronic obstructive pulmonary disease, unspecified (01/26/19) Other chronic pancreatitis (01/26/19) Chronic kidney disease, stage 3 (moderate) (01/26/19) Allergies Iodinated Contrast- Oral and IV Dye Allergy (Severe, Verified 01/26/19 15:38) RASH TO IVP DYE,NAUSEA, FAINTING, COUGHING, GAGGING, HEADACH Sulfa (Sulfonamide Antibiotics) Allergy (Severe, Verified 01/26/19 15:38) HIVES, FACIAL AND ARM SWELLING cerivastatin Allergy (Intermediate, Verified 01/26/19 15:38) HIVES codeine Allergy (Intermediate, Verified 01/26/19 15:38) "PRICKLY RASH" hydroxyzine Allergy (Intermediate, Verified 01/26/19 15:38) N/V latex Allergy (Intermediate, Verified 01/26/19 15:38) DERMATITIS-PT TOLERATED A LATEX CATHETER 03/26/08 Bactrim Allergy (Mild, Verified 04/29/18 14:40) RASH diphenhydramine Allergy (Mild, Verified 01/26/19 15:38) RASH; SLEEPINESS WITH "PHARBEDRYL" loratadine Allergy (Mild, Verified 01/26/19 15:38) HIVES sulfamethoxazole Allergy (Mild, Verified 01/26/19 15:38) RASH trimethoprim Allergy (Mild, Verified 01/26/19 15:38) RASH prednisone Allergy (Unknown, Verified 01/26/19 15:38) elevates blood sugar tetanus toxoid, adsorbed Adverse Reaction (Intermediate, Verified 01/26/19 15:38) SWELLING AT INJECTION SITE alprazolam Adverse Reaction (Unknown, Verified 01/26/19 15:38) "SLEEPY STUPER" metformin Adverse Reaction (Unknown, Verified 01/26/19 15:38) DIARRHEA morphine Adverse Reaction (Unknown, Verified 01/26/19 15:38) VOMITING simvastatin Adverse Reaction (Unknown, Verified 01/26/19 15:38) COUGH, "DISCOMFORT" Height/Weight/Isolation Height 5 ft Weight 69.8 kg Chemistry 01/26/19 01/27/19 14:20 05:57 Sodium 136 141 Potassium 4.7 4.1 Chloride 106 110 H Carbon Dioxide 23 24 Anion Gap 7.0 7.0 BUN 21 H 17 Creatinine 1.72 H 1.16 D Glucose 292 H 171 H
[2019-01-27] MEDS: ISOSORBIDE MONO EXTENDED REL 30 MG TABCR PO SCH (12:19)
--- NOTE | 2019-01-27 13:18 | Pharmacy Report ---
Glycemic Control Consultation - Date of Service January 27, 2019 - Scope Scope: Glycemic Pharmacist consulted by Jina Velasco PA-C on 01/27/19 for glycemic control and to write orders per [facility] inpatient glycemic control protocol - Objective Weight: 69.8 kg [place] BSG (last 24hrs): 01/26/19 01/26/19 01/26/19 14:20 19:54 23:53 Glucose 292 H POC Glucose 209 H 313 H 01/27/19 01/27/19 01/27/19 01:38 02:37 03:32 Glucose POC Glucose 314 H 257 H 221 H 01/27/19 01/27/19 01/27/19 04:31 05:34 05:57 Glucose 171 H POC Glucose 245 H 222 H 01/27/19 01/27/19 01/27/19 06:32 08:07 09:17 Glucose POC Glucose 151 H 211 H 268 H 01/27/19 01/27/19 01/27/19 10:04 11:09 12:07 Glucose POC Glucose 275 H 244 H 214 H Laboratory Data (last 24hrs): 01/26/19 01/27/19 14:20 05:57 Potassium 4.7 4.1 Carbon Dioxide 23 24 Anion Gap 7.0 7.0 Creatinine 1.72 H 1.16 D Est Cr Clr Drug Dosing 23.5 34.8 - Recent Pertinent Medications Outpatient Anti-diabetic Regimen: * Novolin 70/30 85 BID, Regular 24 units BID * A1c = Pending * 10% on 04/14/18 The patient is currently receiving: * Insulin infusion Risk Factors for Insulin Resistance: * Steroids: 200 mg hydrocortisone x 1 * Recent Surgery: PCI POD #1 * Diet: T1DM --> T2DM n: - Assessment & Plan Assessment & Plan: ASSESSMENT: * 78 year old female post cardiac cath with GAETANO x 2 in circumflex and RCA * Patient received 200 mg dose of hydrocortisone, Post op day #1 * BSGs significantly elevated overnight after receiving 35 units of lantus, insulin infusion started * Will continue insulin drip for now as BSGs continue to be elevated * Lantus scale for this evening; maximum carb ratio set at 8 PLAN FOR INPATIENT GLYCEMIC CONTROL: * Starting IV insulin infusion per severe stress protocol * Goal Range 120-180 mg/dl * In the critical care setting, continuous IV insulin infusion has been shown to be the best method for achieving glycemic targets. * Holding outpatient oral diabetes medications * Basal insulin * Lantus 15 units x1 this AM * Scale for PM * Bolus insulin * NovoLog per scale PCHS * Nutritional / Prandial insulin per carb ratio of 1 unit per 8 grams CHO co nsumed; UNLESS CALCULATOR IS <8 then use calculator carb ratio * Please note that the plan above was derived based on current level of insulin resistance and hospital stress. These recommendations are appropriate for inpatient admission only. Plan of care upon discharge will need to be reassessed to avoid potential outpatient hypo/hyperglycemia. Thank you.
[2019-01-27] MEDS ORDERED: MIRTAZAPINE SOLTAB 15 MG PO SCH (21:00)
[2019-01-27] MEDS ORDERED: LORazepam 0.5 MG TAB PO PRN (21:24)
[2019-01-27] MEDS ORDERED: ONDANSETRON 4 MG TAB PO PRN (21:24)
[2019-01-27] MEDS ORDERED: ALBUTEROL 0.083% NEBU SOLN 3 ML VIAL INH PRN (21:24)
[2019-01-27] MEDS ORDERED: DOCUSATE SODIUM 100 MG CAP PO PRN (21:24)
[2019-01-27] MEDS ORDERED: ALBUTEROL HFA 8 GM INHALER INH PRN (21:24)
[2019-01-27] MEDS ORDERED: DICYCLOMINE HCL 10 MG CAP PO PRN (21:24)
[2019-01-27] MEDS: ROPINIROLE HCL 1 MG TABLET PO SCH (21:27)
[2019-01-27] MEDS: TRAZODONE HCL 50 MG TAB PO SCH (21:28)
[2019-01-27] MEDS: GABAPENTIN 400 MG CAP PO SCH (21:28)
[2019-01-27] MEDS: PANCREAZE (LIPASE 4,200U) CAP PO SCH (22:38)
[2019-01-28] MEDS: DULERA~ORDER AWAITING ACTION SCH ×2 (01:33→07:50)
[2019-01-28] MEDS: INSULIN ASPART 100 UNITS/ML 3 ML PEN SC SCH ×2 (04:51→07:54)
[2019-01-28] MEDS ORDERED: INSULIN ASPART 100 UNITS/ML 3 ML PEN SC SCH (06:47)
[2019-01-28 07:05] LABS: Hematocrit (blood only) 31.3 % (37-47); Hemoglobin 10.9 g/dL (12.0-16.0); Mean Corpuscular Volume 89.4 fL (80-100); Mean Platelet Volume 8.9 fL (7.4-10.4); Platelet Count 172 K/uL (130-400); RDW Coefficient of Variation 13.9 % (11.5-14.5); RDW Standard Deviation 45.5 fL (36.4-46.3); White Blood Count 13.02 K/uL (4.8-10.8)
[2019-01-28 07:07] LABS: Mean Corpuscular Hgb Conc 34.8 g/dL (32-36)
[2019-01-28 07:21] LABS: BUN Creatinine Ratio 15.4 (10-20); Calcium 7.8 mg/dl (8.5-10.1); Creatinine Clr Calc Pharmacy 29.3 ml/min; Est GFR (Non-African American) 36.2; Potassium 4.7 mmol/L (3.5-5.1)
[2019-01-28] MEDS: HEPARIN SOD 5,000 UNIT/0.5 ML VIAL SQ SCH (07:55)
[2019-01-28] MEDS: PANCREAZE (LIPASE 4,200U) CAP PO SCH (07:56)
[2019-01-28] MEDS: LOSARTAN POTASSIUM 50 MG TAB PO SCH (07:57)
[2019-01-28] MEDS: ATORVASTATIN 40 MG TAB PO SCH (07:57)
[2019-01-28] MEDS: AMLODIPINE BESYLATE 5 MG TAB PO SCH (07:57)
[2019-01-28] MEDS: METOPROLOL TARTRATE 50 MG TAB PO SCH (07:58)
[2019-01-28] MEDS: ISOSORBIDE MONO EXTENDED REL 30 MG TABCR PO SCH (07:58)
--- NOTE | 2019-01-28 08:46 | Pharmacy Report ---
Pharmacy Glycemic Short Note 2 - Date of Service January 28, 2019 - Glycemic Short BSG Results (Last 24 hours): 01/27/19 01/27/19 01/27/19 09:17 10:04 11:09 Glucose POC Glucose 268 H 275 H 244 H 01/27/19 01/27/19 01/27/19 12:07 13:05 14:00 Glucose POC Glucose 214 H 195 H 199 H 01/27/19 01/27/19 01/27/19 15:09 16:04 17:09 Glucose POC Glucose 127 H 110 H 109 H 01/27/19 01/27/19 01/27/19 18:03 19:23 20:32 Glucose POC Glucose 121 H 159 H 136 H 01/27/19 01/28/19 01/28/19 23:51 04:48 06:53 Glucose 127 H POC Glucose 145 H 142 H 01/28/19 07:11 Glucose POC Glucose 133 H OUTPATIENT ANTIDIABETIC REGIMEN: * Novolin 70/30 85 units SQ BID * Regular insulin 24 units SQ BID * A1c = 10% 04/14/18 ASSESSMENT: 01/28 * Type 2 diabetic admitted for new LBBB, now s/p stenting * Patient was initiated on IV insulin drip yesterday and transitioned to SQ last evening * Fasting BSG 133-142 this AM w/ 35 units of Lantus on board * Patient's insulin requirements can vary greatly. We have followed Angelica on multiple occasions in the past. Based upon my review of prior admissions, when she is not receiving steroids and is tolerating a diet her daily insulin requirements are 100-130units/day. * Will base initial insulin doses on an anticipated insulin requirement of ~80- 100 units/day * A dosing scale will be used for Lantus doses to lessen the risk of hypoglycemia PLAN FOR INPATIENT GLYCEMIC CONTROL: * Hold outpatient oral diabetes medications * Basal insulin * Lantus SQ BID per scale * 0 units if less than 110mg/dL * 10 units if 110-130mg/dL * 20 units if 131-160mg/dL * 30 units if above 160mg/dL * Bolus insulin * NovoLog per scale ACHS or Q6hrs while NPO * Goal Range: Low 120 mg/dL - High 160 mg/dL * Correction Factor: 20 mg/dL/unit * Nutritional / Prandial insulin per carb ratio of 1 unit per 7 grams CHO consumed PLAN FOR DISCHARGE: * to be determined.
[2019-01-28] MEDS ORDERED: MAGNESIUM OXIDE 400 MG TAB PO SCH (09:00)
[2019-01-28] MEDS ORDERED: INSULIN GLARGINE SOLOSTAR 100 UNITS/ML 3 ML PEN SC SCH (09:00)
[2019-01-28] MEDS ORDERED: CLOPIDOGREL BISULFATE 300 MG TAB PO ONE (09:00)
--- NOTE | 2019-01-28 09:02 | Discharge Summary ---
Date of Service January 28, 2019 Admission HPI Per Admitting Provider Pt is 78 y/o F with PMH asthma, COPD, anxiety, depression, HTN, HLD, DM II, CKD III, chronic pancreatitis s/p stent, h/o pancreatic cyst, fatty liver, sleep apnea, CVA, peripheral neuropathy, RLS, insomnia presented to ER from clinic with c/o CP. Pt states last night around dinner time started with mid CP and R arm paresthesias. Also c/o nausea and SOB and pleuritic CP. Increased SOB with walking. Pt states this pain feels different than her typical pancreatitis pain. States has chronic mid back pain. Last night reports dizziness which has improved today. Denies vomiting. Reports hx nasal congestion for past 2-3 months and has tried Flonase, Saline nasal spray without significant relief. Denies hx DVT/PE. Denies known cardiac history. Denies fever/chills, diaphoresis, D/C, WALKER, syncope, vision changes, neck pain, orthopnea, palpitations, cough, sore throat, choking, otalgia, abdominal pain, weakness, extremity weakness, extremity edema, rashes, urinary symptoms. Hx Echo 03/2016: EF: 60-65%, no wall abnormalities, grade I diastolic dysfunction Hx stress test 2013 that was unremarkable Admission Exam Per Admitting Provider General: no distress, WDWN Head: normocephalic, atraumatic Eyes: PERRL, EOM's intact, conjunctiva non-injected, anicteric ENT: normal inspection external ears, nose, mucous membranes moist Neck: supple, trachea midline, non-tender Lungs: clear, no respiratory distress, no wheezing/rhonchi/rales CV: RRR, systolic murmur, no pretibial edema Chest: +tenderness to palpation lower mid chest, no rashes noted Abd: normal BS, soft, non-tender Ext: no cyanosis, no calf tenderness Neuro: A&O x 3, no focal deficits noted, normal affect Skin: warm, dry Principal Diagnosis Non-STEMI Left bundle branch block History of GCA Gastroparesis Dyslipidemia Depression Hypertension Restless leg syndrome Peripheral neuropathy COPD Anxiety Type 2 diabetes Sleep apnea Chronic pancreatitis History of cerebrovascular disease Fatty liver CKD 3 Discharge Exam Patient feels a lot better, status post left heart cath right radial approach, 2 stents placed left circumflex and RCA. Currently on insulin drip, chest pain- free. ROS-No Headache, No Visual Changes, No Nausea, No Vomiting, No Fever, No Chills, No Neck Pain or Stiffness, No Chest Pain, No Palpitations, No SOB, No LAL, No Cough, No Sputum, No Wheezing, No Abdominal Pain, No Diarrhea, No Hematemesis, No Hemoptysis, No Unexpected Weight Loss, No Flank pain, No Melena, No Hematochezia, No Frequency, No Urgency, No Burning, No Hematuria, No Rashes, No Diaphoresis. Appetite is Normal Physical Exam Gen-AAO x 3, NAD, Afebrile, Obese Head-NCAT, EOMI, PERRLA, Anicteric Sclera, No Posterior Pharyngeal Erythema Neck-Supple, No JVD, No Thyromegaly, No Masses, No LAD, No Bruits Lungs-Clear to Auscultation Bilaterally, No Rales, No Rhonchi, No Wheezing, No Crepitus Chest-No S4, +S1, +S2, No S3, No Murmurs, No Rubs, No Gallops, No Ectopy Abdomen-Soft, Bowel Sounds Present, Non Tender, Non Distended, No Hepatomegaly, No Splenomegaly, No Palpable Masses, No Rebound, No Rigidity, No Guarding Musculoskeletal-Full Range of Motion Bilaterally, No CVAT Extremities-No Cyanosis, No Clubbing, No Edema, Cath site c mild bleeding Nuero-Cranial Nerves II-XII grossly intact, Motor WNL, DTRs WNL, Strength WNL, Non Focal Psych-Normal Mood Discharge Data Allergies Allergy/AdvReac Type Severity Reaction Status Date / Time Iodinated Contrast- Oral and Allergy Severe RASH TO Verified 01/26/19 15:38 IV Dye IVP DYE,NAUSEA, FAINTING, COUGHING, GAGGING, HEADACH Sulfa (Sulfonamide Allergy Severe HIVES, Verified 01/26/19 15:38 Antibiotics) FACIAL AND ARM SWELLING cerivastatin Allergy Intermediate HIVES Verified 01/26/19 15:38 codeine Allergy Intermediate "PRICKLY Verified 01/26/19 15:38 RASH" hydroxyzine Allergy Intermediate N/V Verified 01/26/19 15:38 latex Allergy Intermediate DERMATITIS-PT Verified 01/26/19 15:38 TOLERATED A LATEX CATHETER 03/26/08 Bactrim Allergy Mild RASH Verified 04/29/18 14:40 diphenhydramine Allergy Mild RASH; Verified 01/26/19 15:38 SLEEPINESS WITH "PHARBEDRYL" loratadine Allergy Mild HIVES Verified 01/26/19 15:38 sulfamethoxazole Allergy Mild RASH Verified 01/26/19 15:38 trimethoprim Allergy Mild RASH Verified 01/26/19 15:38 prednisone Allergy Unknown elevates Verified 01/26/19 15:38 blood sugar tetanus toxoid, adsorbed AdvReac Intermediate SWELLING Verified 01/26/19 15:38 AT INJECTION SITE alprazolam AdvReac Unknown "SLEEPY Verified 01/26/19 15:38 STUPER" metformin AdvReac Unknown DIARRHEA Verified 01/26/19 15:38 morphine AdvReac Unknown VOMITING Verified 01/26/19 15:38 simvastatin AdvReac Unknown COUGH, Verified 01/26/19 15:38 "DISCOMFORT" Consultations 01/26/19 16:11 ED Decision to Admit Stat 01/26/19 18:54 Consult Cardiology Routine Consult Case Management - Discharge Planning Routine Consult Retaining Room Cutter Routine Procedures Performed Operation Date: 01/26/19 17:30 Actual Procedures s Cineradiography w/Routine Exam - José Manuel Ac MD p Aspiration/PCI w/GAETANO for Stemi(Not Applicable) - José Manuel Ac MD s Drug Eluting Stent each ADDTL Vessel - José Manuel Ac MD Current Diagnoses Type 2 diabetes mellitus without complications (01/26/19) Hyperlipidemia, unspecified (01/26/19) Major depressive disorder, single episode, unspecified (01/26/19) Anxiety disorder, unspecified (01/26/19) Restless legs syndrome (01/26/19) Insomnia, unspecified (01/26/19) Essential (primary) hypertension (01/26/19) Unstable angina (01/26/19) Non-ST elevation (NSTEMI) myocardial infarction (01/26/19) Left bundle-branch block, unspecified (01/26/19) Cerebrovascular disease, unspecified (01/26/19) Chronic obstructive pulmonary disease, unspecified (01/26/19) Other chronic pancreatitis (01/26/19) Chronic kidney disease, stage 3 (moderate) (01/26/19) Allergies Iodinated Contrast- Oral and IV Dye Allergy (Severe, Verified 01/26/19 15:38) RASH TO IVP DYE,NAUSEA, FAINTING, COUGHING, GAGGING, HEADACH Sulfa (Sulfonamide Antibiotics) Allergy (Severe, Verified 01/26/19 15:38) HIVES, FACIAL AND ARM SWELLING cerivastatin Allergy (Intermediate, Verified 01/26/19 15:38) HIVES codeine Allergy (Intermediate, Verified 01/26/19 15:38) "PRICKLY RASH" hydroxyzine Allergy (Intermediate, Verified 01/26/19 15:38) N/V latex Allergy (Intermediate, Verified 01/26/19 15:38) DERMATITIS-PT TOLERATED A LATEX CATHETER 03/26/08 Bactrim Allergy (Mild, Verified 04/29/18 14:40) RASH diphenhydramine Allergy (Mild, Verified 01/26/19 15:38) RASH; SLEEPINESS WITH "PHARBEDRYL" loratadine Allergy (Mild, Verified 01/26/19 15:38) HIVES sulfamethoxazole Allergy (Mild, Verified 01/26/19 15:38) RASH trimethoprim Allergy (Mild, Verified 01/26/19 15:38) RASH prednisone Allergy (Unknown, Verified 01/26/19 15:38) elevates blood sugar tetanus toxoid, adsorbed Adverse Reaction (Intermediate, Verified 01/26/19 15:38) SWELLING AT INJECTION SITE alprazolam Adverse Reaction (Unknown, Verified 01/26/19 15:38) "SLEEPY STUPER" metformin Adverse Reaction (Unknown, Verified 01/26/19 15:38) DIARRHEA morphine Adverse Reaction (Unknown, Verified 01/26/19 15:38) VOMITING simvastatin Adverse Reaction (Unknown, Verified 01/26/19 15:38) COUGH, "DISCOMFORT" Height/Weight/Isolation Height 5 ft Weight 70.7 kg Chemistry 01/26/19 01/27/19 01/28/19 14:20 05:57 06:53 Sodium 136 141 141 Potassium 4.7 4.1 4.7 Chloride 106 110 H 111 H Carbon Dioxide 23 24 26 Anion Gap 7.0 7.0 4.0 BUN 21 H 17 21 H Creatinine 1.72 H 1.16 D 1.39 H Glucose 292 H 171 H 127 H Ordered Studies 01/26/19 17:33 CL Cath Imgs for PACS use only Stat Hospital Course (1) Non-STEMI (non-ST elevated myocardial infarction): Status post left heart cath, stents placed in the left circumflex and RCA. She will be DC'd today on aspirin and Plavix and follow-up with Dr. Caldwell in 2- 3 weeks. She will go home on nitroglycerin, beta-aaliyah, ARB, and Norvasc. She will follow-up with Dr. Colleen Jefferson in 3-5 days. (2) Left bundle branch block: Status post cath, new onset (3) Unstable angina: Pt presented to ER from PCP's office with CP reported started the previous evening Found to have LBBB on EKG which is new from prior EKGs In ER pt afebrile, P: 81, R: 16, BP: 170/75, 98% on RA. WBC: 11. Negative initial troponin CXR: Hypoinflation. Cardiomegaly with suggestion of mild pulmonary vascular congestion. Subsegmental atelectasis/scarring of the left lung base. -In ER was given ASA 324mg, 1L NSS, GI cocktail without relief. 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 Had stent placed to RCA and circumflex -ASA, ticagrelor -atorvastin dose increased -continue metoprolol -trend troponin -EKG in am -cardiology took her to the Sports Leadership Instructor and placed a stent in left circumflex and the RCA. (4) Chronic pancreatitis: Hx chronic pancreatitis with hx pancreatic stent placement. Chronic back pain. Denies abdominal pain (5) Diabetes mellitus, type II: A1c: 9.2 on 12/07/18. Hx poorly controlled diabetes. (6) HTN (hypertension): -continue metoprolol, amlodipine, ARB -hold chlorthalidone (7) Dyslipidemia: -atorvastatin dose increased by cardiology (8) Cerebrovascular disease: Hx CVA -continue dual platelet therapy, statin (9) CKD (chronic kidney disease), stage III: -Stable (10) COPD (chronic obstructive pulmonary disease): -continue home inhalers (11) Depression: No current issues (12) Anxiety: -continue mirtazapine, continue ativan prn anxiety (13) RLS (restless legs syndrome): Mirtazapine (14) Insomnia: -continue ropinirole, trazodone, Full Code as per discussion with pt Follows with Dr Jefferson, see in 3-5 days F/U c Dr Caldwell in 2-3 weeks Total Time Total Time Spent Total Time Spent (In Minutes): 45 mins Total Time Includes: Examination of the Patient, Discharge Planning, Medication Reconciliation and Communication With Other Providers Discharge Plan Discharge Items Patient Disposition: Home - Home Health Services Reason For Visit: CHEST PAIN Discharge Diagnosis: Non-STEMI Left bundle branch block History of GCA Gastroparesis Dyslipidemia Depression Hypertension Restless leg syndrome Peripheral neuropathy COPD Anxiety Type 2 diabetes Sleep apnea Chronic pancreatitis History of cerebrovascular disease Fatty liver CKD 3 Condition: Good Discharge Goals: Improve function Activity: Per 'Additional Instructions' section Activity Comment: resume normal activity Thursday Lifting: Gradually increase as tolerated Bathing: No limitations Sexual Activity: When tolerated Exercise/Sports: Gradually increase as tolerated Driving/Machine Use: Resume 3 days after discharge Weightbearing: Left weightbearing and Right weightbearing Non-emergency contact: Primary Care Provider and Projection Welding Machine Operator Call non-emergency contact if: you have any medication questions and your symptoms worsen Follow-up/Referrals: Hema Caldwell MD [Physician] - (2-3 weeks) Colleen Jefferson [Primary Care Provider] - (Appointment Made) Diet: Carb Consistent or DM2 and Heart Healthy Addtl Provider Instructions: Routine follow up with Dr Jefferson in 3-5 days, Dr Caldwell in 2-3 weeks Patient has had chronic nasal congestion, recommend Julia Pot or [facility]. Prescriptions: New atorvastatin 40 mg Tablet 40 mg PO QAM Qty: 30 RF: 0 isosorbide mononitrate 30 mg Tablet Extended Release 24 Hr 30 mg PO QAM Qty: 30 RF: 0 clopidogrel 75 mg Tablet 75 mg PO QAM Qty: 30 RF: 2 nitroglycerin [Nitrostat] 0.4 mg Tablet, Sublingual 0.4 mg Sublingual PRN PRN (Reason: chest pain) Qty: 30 RF: 0 Continued trazodone 50 mg Tablet 50 mg PO HS RF: 0 ondansetron HCl [Zofran] 4 mg Tablet 4 mg PO QID PRN (Reason: Nausea) RF: 0 gabapentin [Neurontin] 400 mg Capsule 800 mg PO HS RF: 0 Humulin 70/30 U-100 Insulin 100 unit/mL (70-30) Suspension 85 units subcut BID RF: 0 clopidogrel [Plavix] 75 mg Tablet 75 mg PO QAM RF: 0 aspirin 81 mg Tablet,Delayed Release (Dr/Ec) 1 tab PO QPM RF: 0 lorazepam [Ativan] 0.5 mg Tablet 0.5 mg PO Q6 PRN (Reason: Anxiety) RF: 0 ranitidine HCl [Zantac 75] 75 mg Tablet 75 mg PO BID RF: 0 amlodipine [Norvasc] 10 mg Tablet 10 mg PO QAM RF: 0 Humulin R Regular U-100 Insuln 100 unit/mL Solution 24 units subcut BID RF: 0 metoprolol tartrate [Lopressor] 50 mg Tablet 50 mg PO BID RF: 0 docusate sodium [Colace] 100 mg Capsule 100 mg PO DAILY PRN (Reason: Constipation) RF: 0 albuterol sulfate [Proventil HFA] 90 mcg/actuation Hfa Aerosol Inhaler 2 puff INHALATION QID PRN (Reason: Wheezing) RF: 0 fluticasone [Flonase Allergy Relief] 50 mcg/actuation [place],Suspension 2 spray INTRANASAL QPM PRN (Reason: allergies) RF: 0 dicyclomine 10 mg Capsule 10 mg PO TID PRN (Reason: ABDOMINAL CRAMPS) RF: 0 Creon 6,000-19,000 -30,000 unit Capsule,Delayed Release(Dr/Ec) 1 tab PO QID RF: 0 magnesium oxide 400 mg Capsule 400 mg PO QAM RF: 0 ropinirole 1 mg tablet 1 mg PO HS RF: 0 losartan 100 mg tablet 100 mg PO QAM RF: 0 levocetirizine [Xyzal] 5 mg Tablet 2.5 mg PO QPM RF: 0 albuterol sulfate 2.5 mg /3 mL (0.083 %) Solution For Nebulization 2.5 mg INHALATION QID PRN (Reason: Shortness Of Breath Or Wheezing) RF: 0 Dulera 200-5 mcg/actuation Hfa Aerosol Inhaler 2 puff INHALATION BID PRN (Reason: PRN) RF: 0 mirtazapine 45 mg Tablet 45 mg PO HS RF: 0 Discontinued atorvastatin [Lipitor] 10 mg Tablet 10 mg PO QPM RF: 0 chlorthalidone 25 mg Tablet 25 mg PO DAILY RF: 0 Visit Report Forms: Smoking Cessation Stand-Alone Forms: Call Back Authorization, [facility] Discharge Orders: Discharge Order (Routine); Ordered 01/28/19 Ordered By: Jacky Epps Admission Data Admit Date/Time: 01/26/19 18:37 Attending Provider: Jacky Epps Provider: Bud Pérez Primary Care Provider: Colleen Jefferson Other Providers: Bud Pérez ; Hema Caldwell ; Nicci Brown Service: Telemetry
--- NOTE | 2019-01-28 09:48 | Cardiology Progress Note ---
Date of Service January 28, 2019 Assessment & Plan (1) Non-STEMI (non-ST elevated myocardial infarction): Urgent coronary angiography demonstrated two-vessel significant coronary disease with successful coronary stent implantation ostial and proximal circumflex obtuse marginal, mid RCA Plan dual antiplatelet therapy with clopidogrel and aspirin. Increase atorvastatin dosing. Continue prehospitalization beta-aaliyah ARB as well as amlodipine for extensive hypertensive history Echocardiogram today demonstrates subtle hypokinesis of the posterior wall and a dyssynergy contraction pattern of the septum consistent with left bundle branch block otherwise preserved LV function. There is mild to moderate aortic stenosis moderate severe mitral insufficiency Follow-up arranged in 2 weeks time We will discuss cardiac rehab on clinical return. Need for uninterrupted dual antiplatelet therapy minimum of 6-12 months discussed (2) New onset left bundle branch block (LBBB): Remains present on EKG this morning (3) CKD (chronic kidney disease), stage III: Creatinine improved after IV hydration (4) HTN (hypertension): Will likely need additional therapies for blood pressure control we will add oral nitrates to her regimen today (5) Valvular heart disease: Mild to moderate aortic stenosis, moderate to severe mitral insufficiency Treatment as above with goals better blood pressure control Subjective Patient seen and examined, chart medications telemetry reviewed. Patient ambulatory in the room without complaints. No recurrent chest pain or shortness of breath. Blood pressures and heart rate better controlled Physical Exam Vital Signs (Past 24 Hours): Last Vital Signs Temp 36.6 C 01/28/19 07:12 Pulse 67 01/28/19 07:44 Resp 19 01/28/19 07:12 BP 123/45 L 01/28/19 07:12 Pulse Ox 96 01/28/19 07:12 Constitutional: + obese; no acute distress Eyes: PERRL, conjunctivae normal, anicteric sclerae Neck: trachea midline, no thyromegaly Respiratory: normal respiratory effort, lungs clear to auscultation Cardiovascular: Rate/Rhythm: regular rate and regular rhythm Heart Sounds: + murmur (Grade 1/6 systolic murmur); no gallop Palpation: normal PMI Vessels: radial pulses present (Right radial access site healing well) Extremities: no edema Gastrointestinal (Abdomen): normal bowel sounds, soft, nontender, no hepatosplenomegaly Musculoskeletal: no cyanosis or clubbing, extremities motor strength 5/5 Results & Data Laboratory Results Laboratory Results - last 24 hr 01/27/19 01/27/19 01/27/19 10:04 11:09 12:07 WBC RBC Hgb Hct MCV MCH MCHC RDW Std Deviation RDW Coeff of Stormy Plt Count MPV Sodium Potassium Chloride Carbon Dioxide Anion Gap BUN Creatinine Est Cr Clr Drug Dosing Est GFR ( Amer) Est GFR (Non-Af Amer) BUN/Creatinine Ratio Glucose POC Glucose 275 H 244 H 214 H Calcium 01/27/19 01/27/19 01/27/19 13:05 14:00 15:09 WBC RBC Hgb Hct MCV MCH MCHC RDW Std Deviation RDW Coeff of Stormy Plt Count MPV Sodium Potassium Chloride Carbon Dioxide Anion Gap BUN Creatinine Est Cr Clr Drug Dosing Est GFR ( Amer) Est GFR (Non-Af Amer) BUN/Creatinine Ratio Glucose POC Glucose 195 H 199 H 127 H Calcium 01/27/19 01/27/19 01/27/19 16:04 17:09 18:03 WBC RBC Hgb Hct MCV MCH MCHC RDW Std Deviation RDW Coeff of Stormy Plt Count MPV Sodium Potassium Chloride Carbon Dioxide Anion Gap BUN Creatinine Est Cr Clr Drug Dosing Est GFR ( Amer) Est GFR (Non-Af Amer) BUN/Creatinine Ratio Glucose POC Glucose 110 H 109 H 121 H Calcium 01/27/19 01/27/19 01/27/19 19:23 20:32 23:51 WBC RBC Hgb Hct MCV MCH MCHC RDW Std Deviation RDW Coeff of Stormy Plt Count MPV Sodium Potassium Chloride Carbon Dioxide Anion Gap BUN Creatinine Est Cr Clr Drug Dosing Est GFR ( Amer) Est GFR (Non-Af Amer) BUN/Creatinine Ratio Glucose POC Glucose 159 H 136 H 145 H Calcium 01/28/19 01/28/19 01/28/19 04:48 06:53 06:53 WBC 13.02 H RBC 3.50 L Hgb 10.9 L Hct 31.3 L MCV 89.4 MCH 31.1 MCHC 34.8 RDW Std Deviation 45.5 RDW Coeff of Stormy 13.9 Plt Count 172 MPV 8.9 Sodium 141 Potassium 4.7 Chloride 111 H Carbon Dioxide 26 Anion Gap 4.0 BUN 21 H Creatinine 1.39 H Est Cr Clr Drug Dosing 29.3 Est GFR ( Amer) 42.0 Est GFR (Non-Af Amer) 36.2 BUN/Creatinine Ratio 15.4 Glucose 127 H POC Glucose 142 H Calcium 7.8 L 01/28/19 07:11 WBC RBC Hgb Hct MCV MCH MCHC RDW Std Deviation RDW Coeff of Stormy Plt Count MPV Sodium Potassium Chloride Carbon Dioxide Anion Gap BUN Creatinine Est Cr Clr Drug Dosing Est GFR ( Amer) Est GFR (Non-Af Amer) BUN/Creatinine Ratio Glucose POC Glucose 133 H Calcium
[2019-01-28] MEDS ORDERED: CLOPIDOGREL BISULFATE 300 MG TAB PO STA (10:02)
[2019-01-29] MEDS ORDERED: CLOPIDOGREL BISULFATE 75 MG TAB PO SCH (09:00)
== END 2019-01-28 12:09 | disposition home health service (06) ==
LOC: ED 13:58 → CC 17:50 → 1E 18:37 → 2E 01-27 14:07

== ENCOUNTER 2019-01-30 13:32 | Inpatient (IN) ==
[2019-01-30] MEDS ORDERED: NITROGLYCERIN SL 0.4 MG/TAB TAB SL PRN ×2 (13:44→17:23)
[2019-01-30] MEDS ORDERED: SODIUM CHLORIDE 0.9% 500 ML IV SCH (13:45)
[2019-01-30 14:02] LABS: Basophils # (auto) 0.05 K/uL (0-0.2); Basophils % (auto) 0.4 %; Eosinophils # (auto) 0.86 K/uL (0-0.5); Eosinophils % (auto) 7.4 %; Hematocrit (blood only) 32.4 % (37-47); Hemoglobin 11.2 g/dL (12.0-16.0); Immature Granulocytes # (auto) 0.04 K/uL (0.00-0.02); Immature Granulocytes % (auto) 0.3 %; Lymphocytes # (auto) 2.97 K/uL (1.2-3.4); Lymphocytes % (auto) 25.6 %; Mean Corpuscular Hgb Conc 34.6 g/dL (32-36); Mean Corpuscular Volume 90.5 fL (80-100); Mean Platelet Volume 9.1 fL (7.4-10.4); Monocytes # (auto) 0.71 K/uL (0.11-0.59); Monocytes % (auto) 6.1 %; Neutrophils # (auto) 6.98 K/uL (1.4-6.5); Neutrophils % (auto) 60.2 %; Platelet Count 193 K/uL (130-400); RDW Coefficient of Variation 13.7 % (11.5-14.5); RDW Standard Deviation 45.3 fL (36.4-46.3); Red Blood Count 3.58 M/uL (4.2-5.4); White Blood Count 11.61 K/uL (4.8-10.8)
--- NOTE | 2019-01-30 14:09 | XRay Report ---
XR chest 1V portable CLINICAL HISTORY: Chest Pain dyspnea COMPARISON STUDY: 01/26/2019 FINDINGS: Minimal patchy parenchymal infiltrate left base. Lungs otherwise appear clear. Diaphragms s mooth. Central catheter in the right atrium. IMPRESSION: Small patchy parenchymal infiltrate left base. The above report was generated using voice recognition software. It may contain grammatical, syntax or spelling errors. Electronically signed by: Sigifredo Rubio M.D. 01/30/2019 2:08 PM
[2019-01-30] MEDS ORDERED: fentaNYL citrate 100 MCG/2 ML VIAL IV STA ×2 (14:16→14:41)
[2019-01-30] MEDS ORDERED: ONDANSETRON INJ 2 MG/ML 2 ML VIAL IV STA (14:16)
[2019-01-30 14:19] LABS: Albumin Level 2.8 gm/dl (3.4-5.0); BUN Creatinine Ratio 15.4 (10-20); Calcium 8.1 mg/dl (8.5-10.1); Creatinine Clr Calc Pharmacy 37.7 ml/min; Est GFR (African American) 43.5; Est GFR (Non-African American) 37.5; Potassium 4.4 mmol/L (3.5-5.1)
[2019-01-30 14:22] LABS: Albumin Globulin Ratio 0.8 (0.9-2); Bilirubin,Total 0.2 mg/dl (0.2-1); Globulin 3.4 gm/dl (2.5-4.0); Total Protein 6.2 gm/dl (6.4-8.2)
[2019-01-30] MEDS ORDERED: cefTRIAXone SODIUM 1,000 MG/50 ML BAG IV STA (14:37)
[2019-01-30] MEDS ORDERED: HEPARIN 25000 UNIT/500 ML D5W IV ONE (14:54)
--- NOTE | 2019-01-30 14:57 | History & Physical Report ---
Date of Service January 30, 2019 Assessment & Plan (1) Chest pain, unspecified: (2) S/P cardiac catheterization: (3) Non-STEMI (non-ST elevated myocardial infarction): (4) Valvular heart disease: (5) Left bundle branch block: (6) Pneumonia: (7) Gastroparesis: (8) Dyslipidemia: (9) HTN (hypertension): (10) Depression: (11) RLS (restless legs syndrome): (12) Peripheral neuropathy: (13) Anxiety: (14) COPD (chronic obstructive pulmonary disease): (15) Diabetes mellitus, type II: (16) Sleep apnea: (17) CKD (chronic kidney disease), stage III: (18) Chronic pancreatitis: (19) Pre-syncope: (20) Weakness: (21) Leukocytosis: Heparin gtt, tele Obs, Dr Caldwell to see, ASA, ARB, BB, Statin, Stat Echo, Serial Trops SSI, 70/30 Insulin Pain control Inhalers Rocephin Continue outpatient meds where appropriate Lipase MRI/CTH History of Present Illness Chief Complaint: Primary Care Provider: Colleen Jefferson 78 y/o F with PMH asthma, COPD, anxiety, depression, HTN, HLD, DM II, CKD III, chronic pancreatitis s/p stent, h/o pancreatic cyst, fatty liver, sleep apnea, CVA, peripheral neuropathy, RLS, insomnia presented to ER from home c/o CP. She was recently DCd on the after being sent in from the Cardiology clinic c a new LBBB sec to a NSTEMI. She went to the slab lifting engineer and received two stents- ostial and proximal circumflex obtuse marginal, mid RCA. She was DCd in stable condition. She didn't take her meds last night, but took them this am instead. She was given SL NTG and ASA by EMS. She said it was the same pain as her AMI symptoms. Family said she was confused today and had garbled speech. She also said she was wobbly on her feet today. ROS-No Headache, No Visual Changes, No Fever, No Chills, No Neck Pain or Stiffness, + Chest Pain, No Palpitations, No SOB, No LAL, No Cough, No Sputum, No Wheezing, No Abdominal Pain, No Diarrhea, No Hematemesis, No Hemoptysis, No Unexpected Weight Loss, No Flank pain, No Melena, No Hematochezia, No Frequency, No Urgency, No Burning, No Hematuria, No Rashes, No Diaphoresis. Appetite is Normal, Confusion Physical Exam Gen-AAO x 3, NAD, Afebrile, Obese Head-NCAT, EOMI, PERRLA, Anicteric Sclera, No Posterior Pharyngeal Erythema Neck-Supple, No JVD, No Thyromegaly, No Masses, No LAD, No Bruits Lungs-Clear to Auscultation Bilaterally, No Rales, No Rhonchi, No Wheezing, No Crepitus Chest-No S4, +S1, +S2, No S3, No Murmurs, No Rubs, No Gallops, No Ectopy, CP reproducible on Palpation Abdomen-Soft, Obese, Bowel Sounds Present, Non Tender, Non Distended, No Hepatomegaly, No Splenomegaly, No Palpable Masses, No Rebound, No Rigidity, No Guarding Musculoskeletal-Full Range of Motion Bilaterally, No CVAT Extremities-No Cyanosis, No Clubbing, No Edema Nuero-Cranial Nerves II-XII grossly intact, Motor WNL, DTRs WNL, Strength WNL, No Focal Psych-Normal Mood Allergies Allergy/AdvReac Type Severity Reaction Status Date / Time Iodinated Contrast- Oral and Allergy Severe RASH TO Verified 01/26/19 15:38 IV Dye IVP DYE,NAUSEA, FAINTING, COUGHING, GAGGING, HEADACH Sulfa (Sulfonamide Allergy Severe HIVES, Verified 01/26/19 15:38 Antibiotics) FACIAL AND ARM SWELLING cerivastatin Allergy Intermediate HIVES Verified 01/26/19 15:38 codeine Allergy Intermediate "PRICKLY Verified 01/26/19 15:38 RASH" hydroxyzine Allergy Intermediate N/V Verified 01/26/19 15:38 latex Allergy Intermediate DERMATITIS-PT Verified 01/26/19 15:38 TOLERATED A LATEX CATHETER 03/26/08 Bactrim Allergy Mild RASH Verified 04/29/18 14:40 diphenhydramine Allergy Mild RASH; Verified 01/26/19 15:38 SLEEPINESS WITH "PHARBEDRYL" loratadine Allergy Mild HIVES Verified 01/26/19 15:38 sulfamethoxazole Allergy Mild RASH Verified 01/26/19 15:38 trimethoprim Allergy Mild RASH Verified 01/26/19 15:38 prednisone Allergy Unknown elevates Verified 01/26/19 15:38 blood sugar tetanus toxoid, adsorbed AdvReac Intermediate SWELLING Verified 01/26/19 15:38 AT INJECTION SITE alprazolam AdvReac Unknown "SLEEPY Verified 01/26/19 15:38 STUPER" metformin AdvReac Unknown DIARRHEA Verified 01/26/19 15:38 morphine AdvReac Unknown VOMITING Verified 01/26/19 15:38 simvastatin AdvReac Unknown COUGH, Verified 01/26/19 15:38 "DISCOMFORT" Home Medications Home Medications Medication Instructions Recorded Confirmed Type Creon 1 tab PO QID 08/24/18 01/30/19 History Humulin 70/30 U-100 Insulin 85 units SUBCUT BID 08/24/18 01/30/19 History Humulin R Regular U-100 Insuln 24 units SUBCUT BID 08/24/18 01/30/19 History albuterol sulfate [Proventil HFA] 2 puff INHALATION QID PRN 08/24/18 01/30/19 History amlodipine [Norvasc] 10 mg PO QAM 08/24/18 01/30/19 History aspirin 1 tab PO QPM 08/24/18 01/30/19 History clopidogrel [Plavix] 75 mg PO QAM 08/24/18 01/30/19 History dicyclomine 10 mg PO TID PRN 08/24/18 01/30/19 History docusate sodium [Colace] 100 mg PO DAILY PRN 08/24/18 01/30/19 History fluticasone [Flonase Allergy 2 spray INTRANASAL QPM PRN 08/24/18 01/30/19 History Relief] gabapentin [Neurontin] 800 mg PO HS 08/24/18 01/30/19 History lorazepam [Ativan] 0.5 mg PO Q6 PRN 08/24/18 01/30/19 History magnesium oxide 400 mg PO QAM 08/24/18 01/30/19 History metoprolol tartrate [Lopressor] 50 mg PO BID 08/24/18 01/30/19 History ondansetron HCl [Zofran] 4 mg PO QID PRN 08/24/18 01/30/19 History ranitidine HCl [Zantac 75] 75 mg PO BID 08/24/18 01/30/19 History trazodone 50 mg PO HS 08/24/18 01/30/19 History Dulera 2 puff INHALATION BID PRN 01/26/19 01/30/19 History albuterol sulfate 2.5 mg INHALATION QID PRN 01/26/19 01/30/19 History levocetirizine [Xyzal] 2.5 mg PO QPM 01/26/19 01/30/19 History losartan 100 mg PO QAM 01/26/19 01/30/19 History mirtazapine 45 mg PO HS 01/26/19 01/30/19 History ropinirole 1 mg PO HS 01/26/19 01/30/19 History atorvastatin 40 mg PO QAM #30 tab 01/28/19 01/30/19 Rx clopidogrel 75 mg PO QAM #30 tab 01/28/19 01/30/19 Rx isosorbide mononitrate 30 mg PO QAM #30 tab 01/28/19 01/30/19 Rx nitroglycerin [Nitrostat] 0.4 mg SUBLINGUAL PRN PRN #30 tab 01/28/19 01/30/19 Rx Past Med/Surg History Medical History Giant cell arteritis (Resolved) Gastroparesis (Chronic) Dyslipidemia (Chronic) Depression (Chronic) HTN (hypertension) (Chronic) Insomnia (Chronic) RLS (restless legs syndrome) (Chronic) Peripheral neuropathy (Chronic) Pancreatic cyst (Chronic) Anxiety (Chronic) COPD (chronic obstructive pulmonary disease) (Chronic) Diabetes mellitus, type II (Chronic) Sleep apnea (Chronic) Chronic pancreatitis (Chronic) Cerebrovascular disease (Chronic) "history stroke and TIA" L sided weakness. Fatty liver (Chronic) Esophageal dysmotility (Chronic) Gastroparesis (Chronic) Pancreatic divisum (Chronic) CKD (chronic kidney disease), stage III (Chronic) Aortic stenosis (Chronic) mild. Osteoarthritis (Chronic) Seasonal allergies (Chronic) Surgical History History of cataract surgery (Chronic) both eyes S/P cardiac catheterization History of ERCP (Chronic) x3 with stents. ERCP 04/30/18. MAC 3, grade 2 view. 7.0 ETT placed. No issues. History of bilateral tubal ligation (Chronic) History of colonoscopy (Chronic) Family History Daughter No problems noted. Father Family history of diabetes mellitus Family/Other Family history of diabetes mellitus Mother Family history of diabetes mellitus Grandfather Family history of diabetes mellitus Grandmother Family history of diabetes mellitus Social History Preferred Language: Albanian Beliefs That Will Affect Care: None Current Living Situation: Alone Feels Safe at Home: Yes Smoking Status: Former smoker Hx Alcohol Use: No Hx Substance Use: No Physical Exam Vital Signs (Past 24 Hours): Last Vital Signs Temp 36.8 C 01/30/19 13:29 Pulse 71 01/30/19 14:01 Resp 19 01/30/19 14:01 BP 119/58 L 01/30/19 14:00 Pulse Ox 96 01/30/19 14:01 Results & Data Laboratory Results Allergies Iodinated Contrast- Oral and IV Dye Allergy (Severe, Verified 01/26/19 15:38) RASH TO IVP DYE,NAUSEA, FAINTING, COUGHING, GAGGING, HEADACH Sulfa (Sulfonamide Antibiotics) Allergy (Severe, Verified 01/26/19 15:38) HIVES, FACIAL AND ARM SWELLING cerivastatin Allergy (Intermediate, Verified 01/26/19 15:38) HIVES codeine Allergy (Intermediate, Verified 01/26/19 15:38) "PRICKLY RASH" hydroxyzine Allergy (Intermediate, Verified 01/26/19 15:38) N/V latex Allergy (Intermediate, Verified 01/26/19 15:38) DERMATITIS-PT TOLERATED A LATEX CATHETER 03/26/08 Bactrim Allergy (Mild, Verified 04/29/18 14:40) RASH diphenhydramine Allergy (Mild, Verified 01/26/19 15:38) RASH; SLEEPINESS WITH "PHARBEDRYL" loratadine Allergy (Mild, Verified 01/26/19 15:38) HIVES sulfamethoxazole Allergy (Mild, Verified 01/26/19 15:38) RASH trimethoprim Allergy (Mild, Verified 01/26/19 15:38) RASH prednisone Allergy (Unknown, Verified 01/26/19 15:38) elevates blood sugar tetanus toxoid, adsorbed Adverse Reaction (Intermediate, Verified 01/26/19 15:38) SWELLING AT INJECTION SITE alprazolam Adverse Reaction (Unknown, Verified 01/26/19 15:38) "SLEEPY STUPER" metformin Adverse Reaction (Unknown, Verified 01/26/19 15:38) DIARRHEA morphine Adverse Reaction (Unknown, Verified 01/26/19 15:38) VOMITING simvastatin Adverse Reaction (Unknown, Verified 01/26/19 15:38) COUGH, "DISCOMFORT" Height/Weight/Isolation Height 5 ft Weight 105.8 kg CBC 01/30/19 01/30/19 01/30/19 13:50 13:50 13:56 WBC 11.61 H RBC 3.58 L Hgb 11.2 L Hct 32.4 L MCV 90.5 MCH 31.3 MCHC 34.6 RDW Std Deviation 45.3 RDW Coeff of Stormy 13.7 Plt Count 193 MPV 9.1 Immature Gran % (Auto) 0.3 Neut % (Auto) 60.2 Lymph % (Auto) 25.6 [place] % (Auto) 6.1 Eos % (Auto) 7.4 Baso % (Auto) 0.4 Immature Gran # (Auto) 0.04 H Neut # (Auto) 6.98 H Lymph # (Auto) 2.97 [place] # (Auto) 0.71 H Eos # (Auto) 0.86 H Baso # (Auto) 0.05 Sodium 141 Potassium 4.4 Chloride 108 H Carbon Dioxide 26 Anion Gap 7.0 BUN 21 H Creatinine 1.35 H Est Cr Clr Drug Dosing 37.7 Est GFR ( Amer) 43.5 Est GFR (Non-Af Amer) 37.5 BUN/Creatinine Ratio 15.4 Glucose 256 H Calcium 8.1 L Total Bilirubin 0.2 AST 27 ALT 28 Alkaline Phosphatase 87 POC Troponin I 0.07 H Total Protein 6.2 L Albumin 2.8 L Globulin 3.4 Albumin/Globulin Ratio 0.8 L Chemistry 01/30/19 13:50 Sodium 141 Potassium 4.4 Chloride 108 H Carbon Dioxide 26 Anion Gap 7.0 BUN 21 H Creatinine 1.35 H Glucose 256 H Microbiology 01/30/19 14:45 Blood Blood Culture - Pending Code Status & VTE Plan Code Status Full (1) Chest pain, unspecified Chest pain type: unspecified Qualified Code(s): R07.9 - Chest pain, unspecified
--- NOTE | 2019-01-30 15:36 | Cardiology Consultation ---
Date of Consultation January 30, 2019 Assessment & Plan (1) Elevated troponin: Urgent echo performed at bedside in the emergency room reveals normal LV systolic function without wall motion abnormality. Findings do not suggest acute stent thrombosis or acute coronary syndrome superimposed on recent coronary interventions. After evaluation. I agree with heparin infusion given possible concerns regarding failure to take antiplatelet therapy We will follow patient in hospital continue beta-aaliyah (2) Weakness: (3) Pre-syncope: (4) Leukocytosis: (5) Left bundle branch block: Maintain telemetry to exclude underlying progression of conduction system disease History of Present Illness Reason for Consultation: Chest pain, confusion Requesting Physician: Dr. Blue Attending Physician: Dr. Epps History of Present Illness Patient is a 78-year-old female recently admitted to [facility]. She presented at that time with chest pain new onset left bundle branch block non-ST segment elevation myocardial infarction. She underwent urgent cardiac catheterization and coronary intervention to vessel left circumflex obtuse marginal and right coronary artery. Hypertension and hypertensive urgency was treated during admission. Patient discharged on stable medical regimen. Patient represents this morning history provided by patient and family noting having complained of chest discomfort but more importantly weakness fatigue and confusion. Family notes patient was confused regarding medications having difficulty with speech and answering questions. Difficulty ambulating to bathroom. Patient was brought to the emergency room due to complaints noting chest pain on presentation. Initial EKG reveals as prior left bundle branch block, troponin is mildly elevated but consistent with recent hospitalization. Echocardiogram performed at bedside urgently demonstrated normal wall motion and no wall segment acute coronary syndrome or stent thrombosis. Allergies Allergy/AdvReac Type Severity Reaction Status Date / Time Iodinated Contrast- Oral and Allergy Severe RASH TO Verified 01/26/19 15:38 IV Dye IVP DYE,NAUSEA, FAINTING, COUGHING, GAGGING, HEADACH Sulfa (Sulfonamide Allergy Severe HIVES, Verified 01/26/19 15:38 Antibiotics) FACIAL AND ARM SWELLING cerivastatin Allergy Intermediate HIVES Verified 01/26/19 15:38 codeine Allergy Intermediate "PRICKLY Verified 01/26/19 15:38 RASH" hydroxyzine Allergy Intermediate N/V Verified 01/26/19 15:38 latex Allergy Intermediate DERMATITIS-PT Verified 01/26/19 15:38 TOLERATED A LATEX CATHETER 03/26/08 Bactrim Allergy Mild RASH Verified 04/29/18 14:40 diphenhydramine Allergy Mild RASH; Verified 01/26/19 15:38 SLEEPINESS WITH "PHARBEDRYL" loratadine Allergy Mild HIVES Verified 01/26/19 15:38 sulfamethoxazole Allergy Mild RASH Verified 01/26/19 15:38 trimethoprim Allergy Mild RASH Verified 01/26/19 15:38 prednisone Allergy Unknown elevates Verified 01/26/19 15:38 blood sugar tetanus toxoid, adsorbed AdvReac Intermediate SWELLING Verified 01/26/19 15:38 AT INJECTION SITE alprazolam AdvReac Unknown "SLEEPY Verified 01/26/19 15:38 STUPER" metformin AdvReac Unknown DIARRHEA Verified 01/26/19 15:38 morphine AdvReac Unknown VOMITING Verified 01/26/19 15:38 simvastatin AdvReac Unknown COUGH, Verified 01/26/19 15:38 "DISCOMFORT" Home Medications Home Medications Medication Instructions Recorded Confirmed Type Creon 1 tab PO QID 08/24/18 01/30/19 History Humulin 70/30 U-100 Insulin 85 units SUBCUT BID 08/24/18 01/30/19 History Humulin R Regular U-100 Insuln 24 units SUBCUT BID 08/24/18 01/30/19 History albuterol sulfate [Proventil HFA] 2 puff INHALATION QID PRN 08/24/18 01/30/19 History amlodipine [Norvasc] 10 mg PO QAM 08/24/18 01/30/19 History aspirin 1 tab PO QPM 08/24/18 01/30/19 History clopidogrel [Plavix] 75 mg PO QAM 08/24/18 01/30/19 History dicyclomine 10 mg PO TID PRN 08/24/18 01/30/19 History docusate sodium [Colace] 100 mg PO DAILY PRN 08/24/18 01/30/19 History fluticasone [Flonase Allergy 2 spray INTRANASAL QPM PRN 08/24/18 01/30/19 History Relief] gabapentin [Neurontin] 800 mg PO HS 08/24/18 01/30/19 History lorazepam [Ativan] 0.5 mg PO Q6 PRN 08/24/18 01/30/19 History magnesium oxide 400 mg PO QAM 08/24/18 01/30/19 History metoprolol tartrate [Lopressor] 50 mg PO BID 08/24/18 01/30/19 History ondansetron HCl [Zofran] 4 mg PO QID PRN 08/24/18 01/30/19 History ranitidine HCl [Zantac 75] 75 mg PO BID 08/24/18 01/30/19 History trazodone 50 mg PO HS 08/24/18 01/30/19 History Dulera 2 puff INHALATION BID PRN 01/26/19 01/30/19 History albuterol sulfate 2.5 mg INHALATION QID PRN 01/26/19 01/30/19 History levocetirizine [Xyzal] 2.5 mg PO QPM 01/26/19 01/30/19 History losartan 100 mg PO QAM 01/26/19 01/30/19 History mirtazapine 45 mg PO HS 01/26/19 01/30/19 History ropinirole 1 mg PO HS 01/26/19 01/30/19 History atorvastatin 40 mg PO QAM #30 tab 01/28/19 01/30/19 Rx clopidogrel 75 mg PO QAM #30 tab 01/28/19 01/30/19 Rx isosorbide mononitrate 30 mg PO QAM #30 tab 01/28/19 01/30/19 Rx nitroglycerin [Nitrostat] 0.4 mg SUBLINGUAL PRN PRN #30 tab 01/28/19 01/30/19 Rx Patient History Medical History Giant cell arteritis (Resolved) Gastroparesis (Chronic) Dyslipidemia (Chronic) Depression (Chronic) HTN (hypertension) (Chronic) Insomnia (Chronic) RLS (restless legs syndrome) (Chronic) Peripheral neuropathy (Chronic) Pancreatic cyst (Chronic) Anxiety (Chronic) COPD (chronic obstructive pulmonary disease) (Chronic) Diabetes mellitus, type II (Chronic) Sleep apnea (Chronic) Chronic pancreatitis (Chronic) Cerebrovascular disease (Chronic) "history stroke and TIA" L sided weakness. Fatty liver (Chronic) Esophageal dysmotility (Chronic) Gastroparesis (Chronic) Pancreatic divisum (Chronic) CKD (chronic kidney disease), stage III (Chronic) Aortic stenosis (Chronic) mild. Osteoarthritis (Chronic) Seasonal allergies (Chronic) Surgical History History of cataract surgery (Chronic) both eyes S/P cardiac catheterization History of ERCP (Chronic) x3 with stents. ERCP 04/30/18. MAC 3, grade 2 view. 7.0 ETT placed. No issues. History of bilateral tubal ligation (Chronic) History of colonoscopy (Chronic) Family History Daughter No problems noted. Father Family history of diabetes mellitus Family/Other Family history of diabetes mellitus Mother Family history of diabetes mellitus Grandfather Family history of diabetes mellitus Grandmother Family history of diabetes mellitus Social History Preferred Language: Romansh Communication Ability: Effective Gluer And Slicer Hand Required: No Beliefs That Will Affect Care: None Current Living Situation: Alone Feels Safe at Home: Yes Safety Concerns: Feels Safe At This Time Smoking Status: Former smoker Hx Alcohol Use: No Hx Substance Use: No Review of Systems As per HPI Physical Exam Vital Signs (Past 24 Hours): Last Vital Signs Temp 36.8 C 01/30/19 13:29 Pulse 71 01/30/19 14:01 Resp 19 01/30/19 14:01 BP 119/58 L 01/30/19 14:00 Pulse Ox 96 01/30/19 14:01 Constitutional: + obese Eyes: PERRL, conjunctivae normal, anicteric sclerae Neck: + thick neck Respiratory: Auscultation: + diminished lung sounds Cardiovascular: Rate/Rhythm: regular rate and regular rhythm Heart Sounds: normal S1, normal S2 and + murmur (Grade 1/6 systolic); no gallop and no cardiac rub Gastrointestinal (Abdomen): normal bowel sounds, soft, nontender, no hepatosplenomegaly Musculoskeletal: Extremities: + chronic stasis changes; no cyanosis and no clubbing Skin: no rashes, warm and dry Results & Data Laboratory Results Laboratory Results - last 24 hr 01/30/19 01/30/19 01/30/19 13:50 13:50 13:56 WBC 11.61 H RBC 3.58 L Hgb 11.2 L Hct 32.4 L MCV 90.5 MCH 31.3 MCHC 34.6 RDW Std Deviation 45.3 RDW Coeff of Stormy 13.7 Plt Count 193 MPV 9.1 Immature Gran % (Auto) 0.3 Neut % (Auto) 60.2 Lymph % (Auto) 25.6 [place] % (Auto) 6.1 Eos % (Auto) 7.4 Baso % (Auto) 0.4 Immature Gran # (Auto) 0.04 H Neut # (Auto) 6.98 H Lymph # (Auto) 2.97 [place] # (Auto) 0.71 H Eos # (Auto) 0.86 H Baso # (Auto) 0.05 Sodium 141 Potassium 4.4 Chloride 108 H Carbon Dioxide 26 Anion Gap 7.0 BUN 21 H Creatinine 1.35 H Est Cr Clr Drug Dosing 37.7 Est GFR ( Amer) 43.5 Est GFR (Non-Af Amer) 37.5 BUN/Creatinine Ratio 15.4 Glucose 256 H Calcium 8.1 L Total Bilirubin 0.2 AST 27 ALT 28 Alkaline Phosphatase 87 POC Troponin I 0.07 H Total Protein 6.2 L Albumin 2.8 L Globulin 3.4 Albumin/Globulin Ratio 0.8 L ECG Additional Comments: 30-JAN-2019 14:19:05 [facility] Normal sinus rhythm Left bundle branch block Abnormal ECG
--- NOTE | 2019-01-30 16:30 | CT Scan Report ---
CT head/brain wo con CT DOSE: 691.05 mGy.cm HISTORY: Mental status change confusion eval for bleed TECHNIQUE: Multiaxial CT images of the head were performed without the use of intravenous contrast. A dose lowering technique was utilized adhering to the principles of ALARA. Comparison: 12/04/2016 Findings: Mild mucosal thickening ethmoid and sphenoid sinuses. The calvarium and skull base are inta ct. The ventricles and sulci are within normal limits. There is no mass, hematoma, midline shift, or acute infarct. Impression: No acute intracranial abnormality. Mild ethmoid and sphenoid sinus change. The above report was generated using voice recognition software. It may contain grammatical, syntax or spelling errors. Electronically signed by: Sigifredo Rubio M.D. 01/30/2019 4:28 PM
[2019-01-30] MEDS ORDERED: DEXTROSE 50% 50 ML SYRINGE IV PRN (17:23)
[2019-01-30] MEDS ORDERED: ALBUTEROL 0.083% NEBU SOLN 3 ML VIAL INH PRN (17:23)
[2019-01-30] MEDS ORDERED: DICYCLOMINE HCL 10 MG CAP PO PRN ×2 (17:23)
[2019-01-30] MEDS ORDERED: ONDANSETRON 4 MG TAB PO PRN (17:23)
[2019-01-30] MEDS ORDERED: CARBOHYDRATES FOR HYPOGLYCEMIA PO PRN (17:23)
[2019-01-30] MEDS ORDERED: GLUCAGON FOR INJ 1 MG VIAL SQ PRN (17:23)
[2019-01-30] MEDS ORDERED: GLUCOSE 40% GEL 15 GM TUBE PO PRN (17:23)
[2019-01-30] MEDS ORDERED: ONDANSETRON INJ 2 MG/ML 2 ML VIAL IV PRN (17:23)
[2019-01-30] MEDS ORDERED: ALBUTEROL HFA 8 GM INHALER INH PRN (17:23)
[2019-01-30] MEDS ORDERED: DOCUSATE SODIUM 100 MG CAP PO PRN (17:23)
[2019-01-30] MEDS ORDERED: GLUCOSE 10 TABS/TUBE PO PRN (17:23)
[2019-01-30] MEDS ORDERED: FLUTICASONE PROPIONATE NA SPR 16 GM BTL PRN (17:23)
[2019-01-30] MEDS ORDERED: POLYETHYLENE (MIRALAX) 17 GM PACK PO PRN (17:23)
[2019-01-30] MEDS ORDERED: LORazepam 0.5 MG TAB PO PRN (17:23)
[2019-01-30] MEDS ORDERED: Nursing to Pharmacy Communication ONE (17:41)
[2019-01-30] MEDS: ISOSORBIDE MONO EXTENDED REL 30 MG TABCR PO SCH (18:00)
[2019-01-30] MEDS: LOSARTAN POTASSIUM 50 MG TAB PO SCH (18:00)
[2019-01-30] MEDS: AMLODIPINE BESYLATE 5 MG TAB PO SCH (18:00)
[2019-01-30] MEDS: CLOPIDOGREL BISULFATE 75 MG TAB PO SCH (18:01)
[2019-01-30] MEDS ORDERED: Heparin IV Standard *NO* Bolus IV STA (18:19)
[2019-01-30] MEDS ORDERED: HEPARIN STANDARD DEXTROSE 25,000 UNITS/500 ML IV SCH (18:30)
[2019-01-30] MEDS ORDERED: PHARMACY GLYCEMIC MGMT CONSULT PRN (19:06)
[2019-01-30 19:24] LABS: Partial Thromboplastin Ratio 0.8; Partial Thromboplastin Time 22.5 Seconds (21.0-31.0); Prothrombin Time 10.1 Seconds (9.0-12.0)
--- NOTE | 2019-01-30 19:41 | Emergency Department Note ---
Entered by Masha Crawford acting as a scribe for Monster Blue MD History of Present Illness General Chief complaint: Chest Pain Stated complaint: chest pain Source: patient Mode of arrival: EMS History of Present Illness Onset (ago): minute(s) (42) Location: chest (middle of chest) Radiation: non-radiation Severity: similar to prior episodes Pain Consistency: + other (worsening) Current Pain Intensity: 7 Quality: + other (something sitting on her chest) Associated symptoms: + denies other symptoms (leg swelling and cold symptoms) and + shortness of breath; no fever/chills Treatments prior to arrival: other (one nitroglycerin) The patient is a 78 year old F who presents to the Emergency Room with com plaints of worsening chest pain starting 42 minutes ago. She states that her chest pain is located in the middle of her chest and does not radiate anywhere else. She describes her pain as something sitting on her chest. She adds that her current pain feels the same as what she experienced during her last heart attack. She states that she is currently experiencing shortness of breath. She denies having a fever, leg swelling or pain, and cold symptoms. She adds that her pain was a 10 out of 10 but is now a 7 out of 10 after taking 1 nitroglycerin. She also states that she took her aspirin and Plavix. Home Medications Home Medications Medication Instructions Recorded Confirmed Type Creon 1 tab PO QID 08/24/18 01/30/19 History Humulin 70/30 U-100 Insulin 85 units SUBCUT BID 08/24/18 01/30/19 History Humulin R Regular U-100 Insuln 24 units SUBCUT BID 08/24/18 01/30/19 History albuterol sulfate [Proventil HFA] 2 puff INHALATION QID PRN 08/24/18 01/30/19 History amlodipine [Norvasc] 10 mg PO QAM 08/24/18 01/30/19 History aspirin 1 tab PO QPM 08/24/18 01/30/19 History clopidogrel [Plavix] 75 mg PO QAM 08/24/18 01/30/19 History dicyclomine 10 mg PO TID PRN 08/24/18 01/30/19 History docusate sodium [Colace] 100 mg PO DAILY PRN 08/24/18 01/30/19 History fluticasone [Flonase Allergy 2 spray INTRANASAL QPM PRN 08/24/18 01/30/19 History Relief] gabapentin [Neurontin] 800 mg PO HS 08/24/18 01/30/19 History lorazepam [Ativan] 0.5 mg PO Q6 PRN 08/24/18 01/30/19 History magnesium oxide 400 mg PO QAM 08/24/18 01/30/19 History metoprolol tartrate [Lopressor] 50 mg PO BID 08/24/18 01/30/19 History ondansetron HCl [Zofran] 4 mg PO QID PRN 08/24/18 01/30/19 History ranitidine HCl [Zantac 75] 75 mg PO BID 08/24/18 01/30/19 History trazodone 50 mg PO HS 08/24/18 01/30/19 History Dulera 2 puff INHALATION BID PRN 01/26/19 01/30/19 History albuterol sulfate 2.5 mg INHALATION QID PRN 01/26/19 01/30/19 History levocetirizine [Xyzal] 2.5 mg PO QPM 01/26/19 01/30/19 History losartan 100 mg PO QAM 01/26/19 01/30/19 History mirtazapine 45 mg PO HS 01/26/19 01/30/19 History ropinirole 1 mg PO HS 01/26/19 01/30/19 History atorvastatin 40 mg PO QAM #30 tab 01/28/19 01/30/19 Rx clopidogrel 75 mg PO QAM #30 tab 01/28/19 01/30/19 Rx isosorbide mononitrate 30 mg PO QAM #30 tab 01/28/19 01/30/19 Rx nitroglycerin [Nitrostat] 0.4 mg SUBLINGUAL PRN PRN #30 tab 01/28/19 01/30/19 Rx Allergies Allergy/AdvReac Type Severity Reaction Status Date / Time Iodinated Contrast- Oral and Allergy Severe RASH TO Verified 01/26/19 15:38 IV Dye IVP DYE,NAUSEA, FAINTING, COUGHING, GAGGING, HEADACH Sulfa (Sulfonamide Allergy Severe HIVES, Verified 01/26/19 15:38 Antibiotics) FACIAL AND ARM SWELLING cerivastatin Allergy Intermediate HIVES Verified 01/26/19 15:38 codeine Allergy Intermediate "PRICKLY Verified 01/26/19 15:38 RASH" hydroxyzine Allergy Intermediate N/V Verified 01/26/19 15:38 latex Allergy Intermediate DERMATITIS-PT Verified 01/26/19 15:38 TOLERATED A LATEX CATHETER 03/26/08 Bactrim Allergy Mild RASH Verified 04/29/18 14:40 diphenhydramine Allergy Mild RASH; Verified 01/26/19 15:38 SLEEPINESS WITH "PHARBEDRYL" loratadine Allergy Mild HIVES Verified 01/26/19 15:38 sulfamethoxazole Allergy Mild RASH Verified 01/26/19 15:38 trimethoprim Allergy Mild RASH Verified 01/26/19 15:38 prednisone Allergy Unknown elevates Verified 01/26/19 15:38 blood sugar tetanus toxoid, adsorbed AdvReac Intermediate SWELLING Verified 01/26/19 15:38 AT INJECTION SITE alprazolam AdvReac Unknown "SLEEPY Verified 01/26/19 15:38 STUPER" metformin AdvReac Unknown DIARRHEA Verified 01/26/19 15:38 morphine AdvReac Unknown VOMITING Verified 01/26/19 15:38 simvastatin AdvReac Unknown COUGH, Verified 01/26/19 15:38 "DISCOMFORT" Past Med/Surg History Medical History Giant cell arteritis (Resolved) Gastroparesis (Chronic) Dyslipidemia (Chronic) Depression (Chronic) HTN (hypertension) (Chronic) Insomnia (Chronic) RLS (restless legs syndrome) (Chronic) Peripheral neuropathy (Chronic) Pancreatic cyst (Chronic) Anxiety (Chronic) COPD (chronic obstructive pulmonary disease) (Chronic) Diabetes mellitus, type II (Chronic) Sleep apnea (Chronic) Chronic pancreatitis (Chronic) Cerebrovascular disease (Chronic) "history stroke and TIA" L sided weakness. Fatty liver (Chronic) Esophageal dysmotility (Chronic) Gastroparesis (Chronic) Pancreatic divisum (Chronic) CKD (chronic kidney disease), stage III (Chronic) Aortic stenosis (Chronic) mild. Osteoarthritis (Chronic) Seasonal allergies (Chronic) Surgical History History of cataract surgery (Chronic) both eyes S/P cardiac catheterization History of ERCP (Chronic) x3 with stents. ERCP 04/30/18. MAC 3, grade 2 view. 7.0 ETT placed. No issues. History of bilateral tubal ligation (Chronic) History of colonoscopy (Chronic) Family History Daughter No problems noted. Father Family history of diabetes mellitus Family/Other Family history of diabetes mellitus Mother Family history of diabetes mellitus Grandfather Family history of diabetes mellitus Grandmother Family history of diabetes mellitus Social History Preferred Language: Yoruba Communication Ability: Effective Cutch Cleaner Required: No Beliefs That Will Affect Care: None Current Living Situation: Alone Feels Safe at Home: Yes Safety Concerns: Feels Safe At This Time Smoking Status: Former smoker Hx Alcohol Use: No Hx Substance Use: No Review of Systems See HPI for pertinent positives & negatives. and A total of 10 systems reviewed and were otherwise negative Physical Exam Vital Signs Vital Signs - 24 hr 01/30/19 13:29 01/30/19 13:39 01/30/19 13:47 Temperature 36.8 C Temperature Source Oral Sepsis Recent Fever Within 48 Hours No Sepsis New/Unexplained Change in Mental Status No Sepsis Action Taken by Nursing No Action Required Pulse Rate 84 67 66 Pulse Rate from SpO2 Sensor 68 66 Pulse Rhythm Regular Respiratory Rate 20 12 18 Respiratory Effort / Characteristics Non-Labored Spontaneous Respiratory Depth Normal Respiratory Pattern Regular Blood Pressure 156/70 H 156/70 H Blood Pressure Mean 98 98 Blood Pressure Position Lying Pulse Oximetry 97 97 97 Oxygen Delivery Method Room Air 01/30/19 13:55 01/30/19 14:00 01/30/19 14:01 Temperature Temperature Source Sepsis Recent Fever Within 48 Hours Sepsis New/Unexplained Change in Mental Status Sepsis Action Taken by Nursing Pulse Rate 70 71 71 Pulse Rate from SpO2 Sensor 70 71 71 Pulse Rhythm Respiratory Rate 15 14 19 Respiratory Effort / Characteristics Respiratory Depth Respiratory Pattern Blood Pressure 132/63 119/58 L Blood Pressure Mean 86 78 Blood Pressure Position Pulse Oximetry 95 93 96 Oxygen Delivery Method 01/30/19 15:31 Temperature Temperature Source Sepsis Recent Fever Within 48 Hours Sepsis New/Unexplained Change in Mental Status Sepsis Action Taken by Nursing Pulse Rate Pulse Rate from SpO2 Sensor Pulse Rhythm Respiratory Rate Respiratory Effort / Characteristics Non-Labored Spontaneous Respiratory Depth Normal Respiratory Pattern Regular Blood Pressure Blood Pressure Mean Blood Pressure Position Pulse Oximetry Oxygen Delivery Method Room Air Constitutional: Vital signs reviewed. Eyes: Pupils are equal round reactive to light. Conjunctiva are noninjected. ENT: Pharynx is clear without erythema or exudate. Mucous membranes are moist. Neck supple without meningeal signs. Respiratory: Clear to auscultation bilaterally. Breath sounds are equal bilaterally. Cardiovascular: Regular rate and rhythm. No rubs or gallops. GI: Soft, nondistended and nontender. Bowel sounds are present. Musculoskeletal: No peripheral edema. No lower extremity tenderness. Integumentary: No cyanosis. Neurological: The patient is awake and alert. No focal deficits. Psychiatric: Anxious appearing. Course 2342: Past medical records reviewed. The patient was evaluated in room C1, and a complete history and physical examination were performed. 1355: The patient states that her chest pain has now improved and is down to a 6 after her first nitro. She is getting a second nitro now. 1417: The patient states that her chest pain is still there. She states that she now has a really bad headache from the nitro. I ordered a repeat Ekg and fentanyl. 1429: I reviewed the patient's case with Dr. Caldwell. He said to heparinize the patient and admit her to the hospital. He also requested to send over an radiologic technologist mammogram to do a STAT echo. 1434: The patient still says that her pain is a 6. She agrees to heparinization. 1436: I reviewed the patient's case with Dr. Treva Marcos PA-C. She will evaluate the patient for further management. She has requested to give the patient ceftriaxone. 1444: The patient states that she her pain is still present. I am giving her additional fentanyl. 1511: The patient states that her chest pain is now improved. Dr. Caldwell states that there are no well motion abnormality in the echo. Consultations Consultation #1: I reviewed the patient's case with Dr. Caldwell. He said to hepar inize the patient and admit her to the hospital. He also requested to send over an radiologic technologist mammogram to do a STAT echo. Time: 14:29 Consultation #2: I reviewed the patient's case with Dr. Treva Marcos PA-C. She will evaluate the patient for further management. She has requested to give the patient ceftriaxone. Time: 14:36 Administered Medications Amlodipine Besylate (Norvasc) 10 mg PO [facility] Stop: 03/01/19 17:59 Last Admin: 01/30/19 18:00 Dose: 10 mg Documented by: [id number] Clopidogrel Bisulfate (Plavix) 75 mg PO [facility] Stop: 03/01/19 17:22 Last Admin: 01/30/19 18:01 Dose: 75 mg Documented by: [id number] Heparin Sodium/Dextrose (Heparin Sodium/Dextrose) 25,000 units in 500 mls @ 25 mls/hr IV .[facility]; Protocol Stop: 03/01/19 18:29 Last Titration: 01/30/19 19:12 Dose: 1,250 units/hr, 25 mls/hr Documented by: [id number] Cosigned by: [id number] Titration: 01/30/19 18:33 Dose: 0 units/hr, 0 mls/hr Documented by: [id number] Cosigned by: [id number] Admin: 01/30/19 18:29 Dose: 1,250 units/hr, 25 mls/hr Documented by: [id number] Cosigned by: [id number] Isosorbide Mononitrate (Imdur Extended Rel) 30 mg PO [facility] Stop: 03/01/19 17:59 Last Admin: 01/30/19 18:00 Dose: 30 mg Documented by: [id number] Losartan Potassium (Cozaar) 100 mg PO [facility] Stop: 03/01/19 17:59 Last Admin: 01/30/19 18:00 Dose: 100 mg Documented by: [id number] Discontinued Medications Fentanyl Citrate (Fentanyl Citrate) 50 mcg IV NOW STA Stop: 01/30/19 14:17 Last Admin: 01/30/19 14:23 Dose: 50 mcg Documented by: [id number] Fentanyl Citrate (Fentanyl Citrate) 50 mcg IV NOW STA Stop: 01/30/19 14:42 Last Admin: 01/30/19 14:50 Dose: 50 mcg Documented by: [id number] Heparin Sodium/Dextrose () 1 ea IV NOW STA; Protocol Stop: 01/30/19 14:30 Last Admin: 01/30/19 18:27 Dose: Not Given Documented by: [id number] Heparin Sodium/Dextrose (Heparin Sodium/Dextrose) Confirm Administered Dose 25,000 units IV .STK-MED ONE Stop: 01/30/19 14:55 Last Admin: 01/30/19 18:28 Dose: Not Given Documented by: [id number] Heparin Sodium/Dextrose () 1 ea IV ONE STA Stop: 01/30/19 18:20 Last Admin: 01/30/19 18:29 Dose: 1 ea Documented by: [id number] Sodium Chloride (Nss) 500 mls @ 999 mls/hr IV .Q31M [facility] Stop: 01/30/19 14:15 Last Infusion: 01/30/19 15:02 Dose: 0 mls/hr Documented by: [id number] Admin: 01/30/19 13:51 Dose: 999 mls/hr Documented by: [id number] Ceftriaxone Sodium (Rocephin) 1,000 mg in 50 mls @ 100 mls/hr IV NOW STA Stop: 01/30/19 15:06 Last Infusion: 01/30/19 16:01 Dose: 0 mls/hr Documented by: [id number] Admin: 01/30/19 15:02 Dose: 100 mls/hr Documented by: [id number] Nitroglycerin (Nitrostat) 0.4 mg SL UD PRN PRN Reason: Chest Pain Stop: 03/01/19 13:43 Last Admin: 01/30/19 13:51 Dose: 0.4 mg Documented by: [id number] Ondansetron HCl (Zofran) 4 mg IV NOW STA Stop: 01/30/19 14:17 Last Admin: 01/30/19 14:23 Dose: 4 mg Documented by: [id number] Medical Decision Making Differential Diagnosis Differential Diagnosis includes: AK, Jaden syndrome, pleurisy, pneumothorax, GERD Medical Records Attestation: I reviewed the patient's medical records. Home Medications Current Medication List: was personally reviewed by me Laboratory Data Attestation: I reviewed the patient's lab results. Result diagrams: 01/30/19 13:50 01/30/19 13:50 Lab Results 01/30/19 01/30/19 01/30/19 Range/Units 13:50 13:50 13:56 WBC 11.61 H (4.8-10.8) K/uL RBC 3.58 L (4.2-5.4) M/uL Hgb 11.2 L (12.0-16.0) g/dL Hct 32.4 L (37-47) % MCV 90.5 (80-100) fL MCH 31.3 (25-34) pg MCHC 34.6 (32-36) g/dL RDW Std Deviation 45.3 (36.4-46.3) fL RDW Coeff of Stormy 13.7 (11.5-14.5) % Plt Count 193 (130-400) K/uL MPV 9.1 (7.4-10.4) fL Immature Gran % (Auto) 0.3 % Neut % (Auto) 60.2 % Lymph % (Auto) 25.6 % Woods % (Auto) 6.1 % Eos % (Auto) 7.4 % Baso % (Auto) 0.4 % Immature Gran # (Auto) 0.04 H (0.00-0.02) K/uL Neut # (Auto) 6.98 H (1.4-6.5) K/uL Lymph # (Auto) 2.97 (1.2-3.4) K/uL Woods # (Auto) 0.71 H (0.11-0.59) K/uL Eos # (Auto) 0.86 H (0-0.5) K/uL Baso # (Auto) 0.05 (0-0.2) K/uL PT (9.0-12.0) Seconds INR (0.9-1.1) APTT (21.0-31.0) Seconds PTT Ratio Sodium 141 (136-145) mmol/L Potassium 4.4 (3.5-5.1) mmol/L Chloride 108 H (98-107) mmol/L Carbon Dioxide 26 (21-32) mmol/L Anion Gap 7.0 (3-11) BUN 21 H (7-18) mg/dl Creatinine 1.35 H (0.6-1.2) mg/dl Est Cr Clr Drug Dosing 37.7 ml/min Est GFR ( Amer) 43.5 Est GFR (Non-Af Amer) 37.5 BUN/Creatinine Ratio 15.4 (10-20) Glucose 256 H (70-99) mg/dl POC Glucose (70-99) Calcium 8.1 L (8.5-10.1) mg/dl Total Bilirubin 0.2 (0.2-1) mg/dl AST 27 (15-37) U/L ALT 28 (12-78) U/L Alkaline Phosphatase 87 (45-117) U/L POC Troponin I 0.07 H (0-0.045) ng/ml Total Protein 6.2 L (6.4-8.2) gm/dl Albumin 2.8 L (3.4-5.0) gm/dl Globulin 3.4 (2.5-4.0) gm/dl Albumin/Globulin Ratio 0.8 L (0.9-2) 01/30/19 01/30/19 Range/Units 16:55 18:50 WBC (4.8-10.8) K/uL RBC (4.2-5.4) M/uL Hgb (12.0-16.0) g/dL Hct (37-47) % MCV (80-100) fL MCH (25-34) pg MCHC (32-36) g/dL RDW Std Deviation (36.4-46.3) fL RDW Coeff of Stormy (11.5-14.5) % Plt Count (130-400) K/uL MPV (7.4-10.4) fL Immature Gran % (Auto) % Neut % (Auto) % Lymph % (Auto) % Woods % (Auto) % Eos % (Auto) % Baso % (Auto) % Immature Gran # (Auto) (0.00-0.02) K/uL Neut # (Auto) (1.4-6.5) K/uL Lymph # (Auto) (1.2-3.4) K/uL Woods # (Auto) (0.11-0.59) K/uL Eos # (Auto) (0-0.5) K/uL Baso # (Auto) (0-0.2) K/uL PT 10.1 (9.0-12.0) Seconds INR 1.0 (0.9-1.1) APTT 22.5 (21.0-31.0) Seconds PTT Ratio 0.8 Sodium (136-145) mmol/L Potassium (3.5-5.1) mmol/L Chloride (98-107) mmol/L Carbon Dioxide (21-32) mmol/L Anion Gap (3-11) BUN (7-18) mg/dl Creatinine (0.6-1.2) mg/dl Est Cr Clr Drug Dosing ml/min Est GFR ( Amer) Est GFR (Non-Af Amer) BUN/Creatinine Ratio (10-20) Glucose (70-99) mg/dl POC Glucose 226 H (70-99) Calcium (8.5-10.1) mg/dl Total Bilirubin (0.2-1) mg/dl AST (15-37) U/L ALT (12-78) U/L Alkaline Phosphatase (45-117) U/L POC Troponin I (0-0.045) ng/ml Total Protein (6.4-8.2) gm/dl Albumin (3.4-5.0) gm/dl Globulin (2.5-4.0) gm/dl Albumin/Globulin Ratio (0.9-2) Imaging Data Radiologist's Impression: Radiology results as stated below per my review and the radiologist's interpretation: XR chest 1V portable CLINICAL HISTORY: Chest Pain dyspnea COMPARISON STUDY: 01/26/2019 FINDINGS: Minimal patchy parenchymal infiltrate left base. Lungs otherwise appear clear. Diaphragms smooth. Central catheter in the right atrium. IMPRESSION: Small patchy parenchymal infiltrate left base. The above report was generated using voice recognition software. It may contain grammatical, syntax or spelling errors. Electronically signed by: Sigifredo Rubio M.D. 01/30/2019 2:[address] head/brain wo con CT DOSE: 691.05 mGy.cm HISTORY: Mental status change confusion eval for bleed TECHNIQUE: Multiaxial CT images of the head were performed without the use of intravenous contrast. A dose lowering technique was utilized adhering to the principles of ALARA. Comparison: 12/04/2016 Findings: Mild mucosal thickening ethmoid and sphenoid sinuses. The calvarium and skull base are intact. The ventricles and sulci are within normal limits. There is no mass, hematoma, midline shift, or acute infarct. Impression: No acute intracranial abnormality. Mild ethmoid and sphenoid sinus change. The above report was generated using voice recognition software. It may contain grammatical, syntax or spelling errors. Electronically signed by: Sigifredo Rubio M.D. 01/30/2019 4:28 PM ECG Data Attestation: I personally reviewed and interpreted this ECG as follows: Indication: chest pain Rate (beats per minute): 66 Rhythm: normal sinus Findings: + LBBB and + T-wave inversion (in high lateral leads) Comparison ECG Date: from (01/27/19) Change: the following changes noted (T-wave inversion appears to be new, the LBB B appears to be old) Additional Comments: 1419: repeat EKG showed normal sinus rhythm with a rate of 68. There are biphasic t waves in high lateral leads. The is also a LBBB. Blood Pressure Blood Pressure Findings: Elevated blood pressure Blood Pressure Disposition: Referred to patients primary care provider KYLE Narrative I did perform a limited focused review of portions of the patient's old chart on the electronic medical record. The patient was seen for chest pain on January 26. She was diagnosed with an NSTEMI. Stents were placed. Her EKG showed a LBBB. I did evaluate the patient as noted above. The patient had a recent NSTEMI and is presenting with similar chest pain. Her port was accessed. The patient was placed on a continuous cardiac care nurse. I did treat the patient with sublingual nitroglycerin x2. Her chest pain improved but she stated that she got a bad headache from the nitroglycerin. I therefore treated her with fentanyl 50 mcg IV and Zofran 4 mg IV. I did order and personally review the patient's 12-lead EKG and chest x-ray as described above. Her twelve-lead EKG shows some T wave inversion in lead I but otherwise is unchanged from her prior. Chest x-ray demonstrates a left lower lobe infiltrate. She does state that she has had significant nasal congestion. I did obtain a second twelve-lead EKG which showed similar T wave changes. I did order and review the patient's blood work as noted in the electronic medical record. Her troponin is very slightly elevated. I did reassess the patient several times. She is still having some chest pain although states the fentanyl did help. She was given additional fentanyl 50 mcg IV. I did discuss case with cardiology who recommended heparinization and admission to the hospital. I did order IV heparin with a bolus and drip. The rough rice grader did evaluate the patient in the emergency department. He did review her stat echocardiogram performed here which showed no wall motion abnormality. He recommended we obtain a head CT as the family later stated that she seemed confused today. I did order a CT of the head. I did review the images myself as well as the radiology report as described above. There is no evidence of acute intracranial process. I did discuss the case with the hospitalist and returned case inspector. The patient was hospitalized. Impression & Plan Non-ST elevation AK (NSTEMI), Left lower lobe pneumonia Critical Care Time I have personally spent 45 minutes of critical care time in the direct management of this patient. This includes bedside care, interpretation of diagnostic studies, and testing, discussion with consultants, patient, and family members, and other required patient management activities. This 45 minut es is in excess of all separately billable procedures. Critical Care Time: Yes Discharge Plan Visit Data *Final* Discharge Date/Time: 01/30/19 16:10 Chief Complaint: Chest Pain Stated Complaint: chest pain ED Provider: [facility] Discharge Problem: Non-ST elevation AK (NSTEMI), Left lower lobe pneumonia Patient Disposition: Admitted As Inpatient Discharge Instructions Interventions: ED Discharge Assessment Last Done: 01/30/19 16:10 The [email or web address]'s documentation has been prepared under my direction and personally reviewed by me in its entirety. I confirm that the note above accurately reflects all work, treatment, procedures, and medical decision making performed by me.
[2019-01-30] MEDS ORDERED: INSULIN GLARGINE SOLOSTAR 100 UNITS/ML 3 ML PEN SC ONE (19:45)
[2019-01-30] MEDS ORDERED: GABAPENTIN 400 MG CAP PO SCH (21:00)
[2019-01-30] MEDS ORDERED: INSULIN ISOPHANE SQ SCH (21:00)
[2019-01-30] MEDS ORDERED: TRAZODONE HCL 50 MG TAB PO SCH (21:00)
[2019-01-30] MEDS ORDERED: INSULIN REGULAR SQ SCH (21:00)
[2019-01-30] MEDS: INSULIN ASPART 100 UNITS/ML 3 ML PEN SC SCH (21:30)
[2019-01-30] MEDS: METOPROLOL TARTRATE 50 MG TAB PO SCH (21:33)
[2019-01-30] MEDS: TRAZODONE HCL 50 MG TAB PO SCH (21:33)
[2019-01-30] MEDS: MIRTAZAPINE SOLTAB 15 MG PO SCH (21:35)
[2019-01-30] MEDS: GABAPENTIN 400 MG CAP PO SCH (21:35)
[2019-01-30] MEDS: ASPIRIN 81 MG ECTAB PO SCH (21:35)
[2019-01-30] MEDS: ROPINIROLE HCL 1 MG TABLET PO SCH (21:35)
[2019-01-30] MEDS: PANCREAZE (LIPASE 4,200U) CAP PO SCH ×2 (22:05→22:06)
[2019-01-31 01:07] LABS: Partial Thromboplastin Ratio 3.3
[2019-01-31] MEDS: XYZAL ~ ORDER AWAITING ACTION SCH ×4 (01:23→23:58)
[2019-01-31] MEDS ORDERED: HEPARIN 100 UNIT/ML 5ML FLUSH FLUSH PRN (01:37)
[2019-01-31] MEDS: ACETAMINOPHEN 325 MG TAB PO PRN ×3 (04:09→21:43)
--- NOTE | 2019-01-31 07:07 | Magnetic Resonance Report ---
MRI OF THE BRAIN WITHOUT IV CONTRAST CLINICAL HISTORY: Weakness. Change in mental status. COMPARISON STUDY: CT of the brain dated 01/30/2019. TECHNIQUE: MRI of the brain was performed utilizing various T1 and T2-weighted sequences in the axial , sagittal, and coronal planes. IV contrast was not administered for this examination. Several sequen pillo were repeated due to motion artifact. FINDINGS: Brain parenchyma: There are age-related involutional changes noting moderate patchy subcortical and p eriventricular microangiopathic disease. There is a 7 mm focus of restricted diffusion identified wit hin the left frontal white matter consistent with an acute to subacute lacunar infarct. No additional foci of acute ischemia are identified. There is no hemorrhage or mass effect. Grady-white matter dif ferentiation is preserved. No extra-axial fluid collection is seen. The cerebellar tonsils are normal in configuration. Ventricles, sulci, and cisterns: Prominent secondary to involutional change. Pituitary and sella: Partially empty sella is incidentally noted. Intracranial vasculature: Normal flow voids are maintained at the skull base. Orbits: The bony orbits are grossly intact. Orbital contents are normal in appearance comment noting bilateral ocular lens implants. Sinuses and mastoids: There is moderate mucosal thickening within the ethmoid sinuses. Mild mucosal t hickening is seen within the sphenoid and maxillary sinuses. There are small mastoid effusions. Calvarium: Unremarkable. Cervical cord: Partially visualized cervical spinal cord is normal in morphology and signal intensity . IMPRESSION: 1. There is an acute to subacute lacunar infarct identified in the left frontal white matter. 2. No additional foci of acute ischemia are identified. 3. There is no hemorrhage or mass effect. Electronically signed by: Ramez Blanchard M.D. 01/31/2019 7:05 AM
[2019-01-31 08:13] LABS: Hematocrit (blood only) 31.2 % (37-47); Hemoglobin 10.6 g/dL (12.0-16.0); Mean Corpuscular Volume 89.4 fL (80-100); Mean Platelet Volume 9.4 fL (7.4-10.4); Platelet Count 195 K/uL (130-400); RDW Coefficient of Variation 13.7 % (11.5-14.5); RDW Standard Deviation 44.5 fL (36.4-46.3); Red Blood Count 3.49 M/uL (4.2-5.4); White Blood Count 12.04 K/uL (4.8-10.8)
[2019-01-31] MEDS: INSULIN ASPART 100 UNITS/ML 3 ML PEN SC SCH ×5 (08:30→23:56)
[2019-01-31] MEDS: PANCREAZE (LIPASE 4,200U) CAP PO SCH ×4 (08:31→21:38)
[2019-01-31] MEDS: METOPROLOL TARTRATE 50 MG TAB PO SCH (08:31)
[2019-01-31] MEDS: CLOPIDOGREL BISULFATE 75 MG TAB PO SCH (08:32)
[2019-01-31] MEDS: AMLODIPINE BESYLATE 5 MG TAB PO SCH (08:32)
[2019-01-31] MEDS: ISOSORBIDE MONO EXTENDED REL 30 MG TABCR PO SCH (08:33)
[2019-01-31] MEDS: ATORVASTATIN 40 MG TAB PO SCH (08:33)
[2019-01-31] MEDS: MAGNESIUM OXIDE 400 MG TAB PO SCH (08:33)
[2019-01-31] MEDS: LOSARTAN POTASSIUM 50 MG TAB PO SCH (08:33)
[2019-01-31 08:41] LABS: Albumin Level 2.8 gm/dl (3.4-5.0); BUN Creatinine Ratio 16.6 (10-20); Creatinine Clr Calc Pharmacy 29.6 ml/min; Est GFR (African American) 41.6; Est GFR (Non-African American) 35.9; Potassium 4.2 mmol/L (3.5-5.1)
[2019-01-31 08:44] LABS: Albumin Globulin Ratio 0.8 (0.9-2); Bilirubin,Total 0.2 mg/dl (0.2-1); Globulin 3.4 gm/dl (2.5-4.0); Total Protein 6.2 gm/dl (6.4-8.2)
[2019-01-31] MEDS: INSULIN HUMAN NPH SC SCH ×2 (09:00→17:52)
[2019-01-31 09:44] LABS: INR 1.1 (0.9-1.1)
[2019-01-31 09:46] LABS: Partial Thromboplastin Time 53.2 Seconds (21.0-31.0)
[2019-01-31 09:54] LABS: Estimated Average Glucose 223 mg/dl; Hemoglobin A1C 9.4 % (4.5-5.6)
--- NOTE | 2019-01-31 11:43 | Hospitalist Progress Note ---
Date of Service January 31, 2019 Assessment & Plan (1) Acute CVA (cerebrovascular accident): (2) Chest pain, unspecified: (3) S/P cardiac catheterization: (4) Non-STEMI (non-ST elevated myocardial infarction): (5) Valvular heart disease: (6) Left bundle branch block: (7) Pneumonia: (8) Gastroparesis: (9) Dyslipidemia: (10) HTN (hypertension): (11) Depression: (12) RLS (restless legs syndrome): (13) Peripheral neuropathy: (14) Anxiety: (15) COPD (chronic obstructive pulmonary disease): (16) Diabetes mellitus, type II: (17) Sleep apnea: (18) CKD (chronic kidney disease), stage III: (19) Chronic pancreatitis: (20) Pre-syncope: (21) Weakness: (22) Leukocytosis: Heparin gtt stopped due to CVA, tele Inpatient now, Dr Caldwell on case, Dr Ferguson Neuro to see, ASA, ARB, BB, Statin, Echo done, Serial Trops Noted SSI, 70/30 Insulin, Rx to dose Pain control Inhalers Rocephin Continue outpatient meds where appropriate Lipase MRI/CTH-+ for Acute to Subacute CVA/Lacunar Infarct L Fronal White Matter PT/OT/Acute rehab v Home c HHC, HPT/HOT Subjective 78 y/o F with PMH asthma, COPD, anxiety, depression, HTN, HLD, DM II, CKD III, chronic pancreatitis s/p stent, h/o pancreatic cyst, fatty liver, sleep apnea, CVA, peripheral neuropathy, RLS, insomnia presented to ER from home c/o CP. She was recently DCd on the after being sent in from the Cardiology clinic c a new LBBB sec to a NSTEMI. She went to the ear mold laboratory technician and received two stents- ostial and proximal circumflex obtuse marginal, mid RCA. She was DCd in stable condition. She didn't take her meds last night, but took them this am instead. She was given SL NTG and ASA by EMS. She said it was the same pain as her AMI symptoms. Family said she was confused today and had garbled speech. She also said she was wobbly on her feet. An MRI done revealed a Acute to Subacute CVA/Lacunar Infarct L Frontal Area ROS-No Headache, No Visual Changes, No Fever, No Chills, No Neck Pain or Stiffness, + Chest Pain, No Palpitations, No SOB, No LAL, No Cough, No Sputum, No Wheezing, No Abdominal Pain, No Diarrhea, No Hematemesis, No Hemoptysis, No Unexpected Weight Loss, No Flank pain, No Melena, No Hematochezia, No Frequency, No Urgency, No Burning, No Hematuria, No Rashes, No Diaphoresis. Appetite is Normal, Confusion Physical Exam Gen-AAO x 3, NAD, Afebrile, Obese Head-NCAT, EOMI, PERRLA, Anicteric Sclera, No Posterior Pharyngeal Erythema Neck-Supple, No JVD, No Thyromegaly, No Masses, No LAD, No Bruits Lungs-Clear to Auscultation Bilaterally, No Rales, No Rhonchi, No Wheezing, No Crepitus Chest-No S4, +S1, +S2, No S3, No Murmurs, No Rubs, No Gallops, No Ectopy, CP reproducible on Palpation Abdomen-Soft, Obese, Bowel Sounds Present, Non Tender, Non Distended, No Hepatomegaly, No Splenomegaly, No Palpable Masses, No Rebound, No Rigidity, No Guarding Musculoskeletal-Full Range of Motion Bilaterally, No CVAT Extremities-No Cyanosis, No Clubbing, No Edema Nuero-Cranial Nerves II-XII grossly intact, Motor WNL, DTRs WNL, Strength WNL, No Focal Psych-Normal Mood Physical Exam Vital Signs (Past 24 Hours): Last Vital Signs Temp 36.4 C L 01/31/19 11:30 Pulse 61 01/31/19 11:30 Resp 18 01/31/19 11:30 BP 100/54 L 01/31/19 11:30 Pulse Ox 95 01/31/19 11:30 Results & Data Laboratory Results Reviewed (1) Chest pain, unspecified Chest pain type: unspecified Qualified Code(s): R07.9 - Chest pain, unspecified
--- NOTE | 2019-01-31 12:51 | Cardiology Progress Note ---
Date of Service January 31, 2019 Assessment & Plan (1) Acute CVA (cerebrovascular accident): No focal deficits and confusion has resolved this morning. Continue dual antiplatelet therapy with aspirin and clopidogrel Discontinue heparin Reduce metoprolol to 25 mg twice per day hopefully aid in fatigue. Follow heart rate on telemetry No past or current evidence of arrhythmias (2) Elevated troponin: Urgent echo performed at bedside in the emergency room reveals normal LV systolic function without wall motion abnormality. Findings do not suggest acute stent thrombosis or acute coronary syndrome superimposed on recent coronary interventions. After evaluation. I agree with heparin infusion given possible concerns regarding failure to take antiplatelet therapy We will follow patient in hospital continue beta-aaliyah (3) Weakness: (4) Pre-syncope: (5) Leukocytosis: (6) Left bundle branch block: Maintain telemetry to exclude underlying progression of conduction system disease Subjective Patient feels fatigued today but no focal distress. No further confusion or disorientation. Denies chest pains currently. "Just feels washed out " Physical Exam Vital Signs (Past 24 Hours): Last Vital Signs Temp 36.4 C L 01/31/19 11:30 Pulse 61 01/31/19 11:30 Resp 18 01/31/19 11:30 BP 100/54 L 01/31/19 11:30 Pulse Ox 95 01/31/19 11:30 Constitutional: + obese Eyes: PERRL, conjunctivae normal, anicteric sclerae Neck: + thick neck Respiratory: Auscultation: + diminished lung sounds Cardiovascular: Rate/Rhythm: regular rate and regular rhythm Heart Sounds: normal S1, normal S2 and + murmur (Grade 1/6 systolic); no gallop and no cardiac rub Gastrointestinal (Abdomen): normal bowel sounds, soft, nontender, no hepatosplenomegaly Musculoskeletal: Extremities: + chronic stasis changes; no cyanosis and no clubbing Skin: no rashes, warm and dry
--- NOTE | 2019-01-31 13:50 | Pharmacy Report ---
Pharmacy Glycemic Short Note 2 - Date of Service January 31, 2019 - Glycemic Short BSG Results (Last 24 hours): 01/30/19 01/30/19 01/30/19 13:50 16:55 20:33 Glucose 256 H POC Glucose 226 H 231 H 01/31/19 01/31/19 01/31/19 07:28 07:56 11:01 Glucose 263 H POC Glucose 267 H 246 H OUTPATIENT ANTIDIABETIC REGIMEN: * Humulin 70/30 85 units SQ BID * Humulin-R 24 units SQ BID * HbA1c: 9.4% (01/31/19) ASSESSMENT: * Ms Kaplan is a 78yo diabetic female, well known to the pharmacy glycemic management service from past admissions. * She was admitted last evening for chest pain. * BSGs were elevated on admission, so patient was given 30 units of Lantus and started on Novolog with parameters based on data from past admissions. * BSGs remain elevated today. Patient was transitioned to NPH insulin today, to make the transition to patient's home regimen easier prior to discharge. PLAN FOR INPATIENT GLYCEMIC CONTROL: * Basal insulin * NPH 30 units SQ BID with meals * Bolus insulin * NovoLog per scale ACHS or Q6hrs while NPO * Goal Range: Low 120 mg/dL - High 160 mg/dL * Correction Factor: 20 mg/dL/unit * Nutritional / Prandial insulin per carb ratio of 1 unit per 7 grams CHO consumed * Added 0000 and 0400 accu-checks to provide additional coverage if patient remains hyperglycemic overnight PLAN FOR DISCHARGE: * Patient's A1c (9.4%) indicates sub-optimal glycemic control as an outpatient. * Patient will require prompt f/u with outpatient provider after discharge to work toward optimizing A1c. * Expect that patient requires insulin dose adjustments on discharge. * In the past, patient was using these insulin types d/t insurance coverage. May consider changing to a different regimen with different insulins if this is no longer the case? * Recommend consulting CDE
--- NOTE | 2019-01-31 14:04 | Neurology Consultation ---
Date of Consultation January 31, 2019 Assessment & Plan (1) Acute CVA (cerebrovascular accident): 1. MRI reveals lacunar frontal stroke acute subacute 2. needs evaluation of vessels CTA head and neck would be optimal but she has dye allergy, MRA head and neck -ordered 3. continue Plavix 75 mg and aspirin 81 mg- may not be taking as directed 4. cardiology TTE - 60-65% EF 5. PT/OT speech for discharge needs 6. will likely need some rehab before returning home 7. nursing - home safety check- may need high level of care 8. fall precautions Supervising Physician Co-Signing Physician Notes I have seen and discussed above patient with Dr Yonas Ferguson, neurology I seen Mrs. Solorio today in the presence of her granddaughter and a friend and have examined her, discussed her case with Roxana Adamson PA-C, reviewed her imaging studies and outstanding laboratory studies in addition to the history of present illness she had a recent catheterization but in theory was on dual antiplatelet treatment prior to the procedure and continued it afterwards. It is not clear however whether she was compliant with this regimen prior to or after the catheterization and she now presents with confusion vague right-sided sensory complaints in addition to her chronic left-sided complaints stemming from her prior cerebrovascular accidents imaging has now shown a clear-cut new left frontal infarction which may explain some of her symptoms anatomically. She also appears to have a dazed somewhat confused countenance and does not recall seeing me from prior multiple evaluations during her prior admissions to [facility]. There is at most some confidence of the right hand and the old left-sided deficits which fluctuate from moment to moment and frankly have never been associated with any clear evidence for acute cerebrovascular accidents involving the right hemisphere Plans now are to continue the current antiplatelet regimen. I do not have sufficient suspicion that she was compliant or sufficiently compliant with the combined low-dose aspirin and Plavix therapy to raise her aspirin to 162 mg combined with the Plavix and we will go ahead and get MR angiographic studies of her neck and int intracranial vessels. She again my opinion she would benefit from a stay at [facility] (institution formally known as [facility]) but suspect if she remains true to form she will resist this and try to return home. In that instance she really needs to have close supervision of her medications as multiple medication there is reported by the granddaughter today and I think these will continue to occur without appropriate controls We will be back tomorrow to assess her. Yonas Ferguson MD History of Present Illness Reason for Consultation: CVA Requesting Physician: Jacky Epps DO Attending Physician: Jacky Epps DO History of Present Illness Angelica is a 78 year old female PMH asthma, COPD, anxiety, depression, HTN, HLD, DM II, CKD III, chronic pancreatitis s/p stent, h/o pancreatic cyst, fatty liver, sleep apnea, CVA, peripheral neuropathy, RLS, insomnia presented to ED with CP. She was recently discharged on the after being sent in from the Cardiology clinic with a new LBBB sec to a NSTEMI. She underwent two stents- ostial and proximal circumflex obtuse marginal, mid RCA. She was discharged in stable condition. Her granddaughter is in the room and states she mistakenly took her night meds instead of her morning meds. Granddaughter states she takes some sedating medication at night and she thinks this caused the slurred speech and confusion. She states her right side was effected by her previous TIAs but this time her right arm had parathesias which is still present. PT/OT are recommending [facility] before returning home. She lives alone but her family is here because of the NV and stenting. She is also complaining of a head cold which she has had for months but she has not had her allergy medications she usually takes. denies current CP, SOB, abdominal pain, new weakness, N, V, +generalized weakness, numbness in right arm. Allergies Allergy/AdvReac Type Severity Reaction Status Date / Time Iodinated Contrast- Oral and Allergy Severe RASH TO Verified 01/26/19 15:38 IV Dye IVP DYE,NAUSEA, FAINTING, COUGHING, GAGGING, HEADACH Sulfa (Sulfonamide Allergy Severe HIVES, Verified 01/26/19 15:38 Antibiotics) FACIAL AND ARM SWELLING cerivastatin Allergy Intermediate HIVES Verified 01/26/19 15:38 codeine Allergy Intermediate "PRICKLY Verified 01/26/19 15:38 RASH" hydroxyzine Allergy Intermediate N/V Verified 01/26/19 15:38 latex Allergy Intermediate DERMATITIS-PT Verified 01/26/19 15:38 TOLERATED A LATEX CATHETER 03/26/08 Bactrim Allergy Mild RASH Verified 04/29/18 14:40 diphenhydramine Allergy Mild RASH; Verified 01/26/19 15:38 SLEEPINESS WITH "PHARBEDRYL" loratadine Allergy Mild HIVES Verified 01/26/19 15:38 sulfamethoxazole Allergy Mild RASH Verified 01/26/19 15:38 trimethoprim Allergy Mild RASH Verified 01/26/19 15:38 prednisone Allergy Unknown elevates Verified 01/26/19 15:38 blood sugar tetanus toxoid, adsorbed AdvReac Intermediate SWELLING Verified 01/26/19 15:38 AT INJECTION SITE alprazolam AdvReac Unknown "SLEEPY Verified 01/26/19 15:38 STUPER" metformin AdvReac Unknown DIARRHEA Verified 01/26/19 15:38 morphine AdvReac Unknown VOMITING Verified 01/26/19 15:38 simvastatin AdvReac Unknown COUGH, Verified 01/26/19 15:38 "DISCOMFORT" Home Medications Home Medications Medication Instructions Recorded Confirmed Type Creon 1 tab PO QID 08/24/18 01/30/19 History Humulin 70/30 U-100 Insulin 85 units SUBCUT BID 08/24/18 01/30/19 History Humulin R Regular U-100 Insuln 24 units SUBCUT BID 08/24/18 01/30/19 History albuterol sulfate [Proventil HFA] 2 puff INHALATION QID PRN 08/24/18 01/30/19 History amlodipine [Norvasc] 10 mg PO QAM 08/24/18 01/30/19 History aspirin 1 tab PO QPM 08/24/18 01/30/19 History clopidogrel [Plavix] 75 mg PO QAM 08/24/18 01/30/19 History dicyclomine 10 mg PO TID PRN 08/24/18 01/30/19 History docusate sodium [Colace] 100 mg PO DAILY PRN 08/24/18 01/30/19 History fluticasone [Flonase Allergy 2 spray INTRANASAL QPM PRN 08/24/18 01/30/19 History Relief] gabapentin [Neurontin] 800 mg PO HS 08/24/18 01/30/19 History lorazepam [Ativan] 0.5 mg PO Q6 PRN 08/24/18 01/30/19 History magnesium oxide 400 mg PO QAM 08/24/18 01/30/19 History metoprolol tartrate [Lopressor] 50 mg PO BID 08/24/18 01/30/19 History ondansetron HCl [Zofran] 4 mg PO QID PRN 08/24/18 01/30/19 History ranitidine HCl [Zantac 75] 75 mg PO BID 08/24/18 01/30/19 History trazodone 50 mg PO HS 08/24/18 01/30/19 History Dulera 2 puff INHALATION BID PRN 01/26/19 01/30/19 History albuterol sulfate 2.5 mg INHALATION QID PRN 01/26/19 01/30/19 History levocetirizine [Xyzal] 2.5 mg PO QPM 01/26/19 01/30/19 History losartan 100 mg PO QAM 01/26/19 01/30/19 History mirtazapine 45 mg PO HS 01/26/19 01/30/19 History ropinirole 1 mg PO HS 01/26/19 01/30/19 History atorvastatin 40 mg PO QAM #30 tab 01/28/19 01/30/19 Rx clopidogrel 75 mg PO QAM #30 tab 01/28/19 01/30/19 Rx isosorbide mononitrate 30 mg PO QAM #30 tab 01/28/19 01/30/19 Rx nitroglycerin [Nitrostat] 0.4 mg SUBLINGUAL PRN PRN #30 tab 01/28/19 01/30/19 Rx Patient History Medical History Giant cell arteritis (Resolved) Gastroparesis (Chronic) Dyslipidemia (Chronic) Depression (Chronic) HTN (hypertension) (Chronic) Insomnia (Chronic) RLS (restless legs syndrome) (Chronic) Peripheral neuropathy (Chronic) Pancreatic cyst (Chronic) Anxiety (Chronic) COPD (chronic obstructive pulmonary disease) (Chronic) Diabetes mellitus, type II (Chronic) Sleep apnea (Chronic) Chronic pancreatitis (Chronic) Cerebrovascular disease (Chronic) "history stroke and TIA" L sided weakness. Fatty liver (Chronic) Esophageal dysmotility (Chronic) Gastroparesis (Chronic) Pancreatic divisum (Chronic) CKD (chronic kidney disease), stage III (Chronic) Aortic stenosis (Chronic) mild. Osteoarthritis (Chronic) Seasonal allergies (Chronic) Surgical History History of cataract surgery (Chronic) both eyes S/P cardiac catheterization History of ERCP (Chronic) x3 with stents. ERCP 04/30/18. MAC 3, grade 2 view. 7.0 ETT placed. No issues. History of bilateral tubal ligation (Chronic) History of colonoscopy (Chronic) Family History Daughter No problems noted. Father Family history of diabetes mellitus Family/Other Family history of diabetes mellitus Mother Family history of diabetes mellitus Grandfather Family history of diabetes mellitus Grandmother Family history of diabetes mellitus Social History Communication Ability: Effective Beliefs That Will Affect Care: None marital status: / Current Living Situation: Alone Feels Safe at Home: Yes Safety Concerns: Feels Safe At This Time Smoking Status: Former smoker Hx Alcohol Use: No Hx Substance Use: No Physical Exam Vital Signs (Past 24 Hours): Last Vital Signs Temp 36.4 C L 01/31/19 11:30 Pulse 61 01/31/19 11:30 Resp 18 01/31/19 11:30 BP 100/54 L 01/31/19 11:30 Pulse Ox 95 01/31/19 11:30 Physical Exam: Constitutional: appearance over nourished, healthy e Ears, Nose, Mouth and Throat: mucous membranes moist, no injection and skin normal, eyes normal Cardiovascular: normal S-1 and S-2 and regular rate and rhythm Respiratory: course breath sounds with upper air way wheezing Musculoskeletal: no peripheral edema Skin: no stigmata of neurocutaneous disease noted and normal and intact Eyes: extraocular muscles intact (EOMI) and pupils equal, round and reactive to light (PERRL) NEUROLOGIC EXAMINATION: Mental status: Alert and interactive Oriented to full date and location Oriented to person Speech fluent with no evidence of aphasia Cranial Nerves smile eye brow raise symmetric Reflexes: Deep tendon reflexes were symmetrical and graded 2/5. Sensory: light cool touch intact Coordination: finger to nose intact, heel to marquez dysmetric on left Gait/Stance: Posture normal. stands with assistance of chair arms Motor: Negative for pronator drift of out stretched arms with eyes closed. Strength: hand patient access registrar biceps triceps 4+/5 bilaterally hip flex 5/5 bilaterally Results & Data Diagnostic Findings TTE- EF 60-65% CT head-No acute intracranial abnormality. Mild ethmoid and sphenoid sinus change. MRI brain- There is an acute to subacute lacunar infarct identified in the left frontal white matter. No additional foci of acute ischemia are identified. There is no hemorrhage or mass effect.
[2019-01-31] MEDS: METOPROLOL TARTRATE 25 MG TAB PO SCH (21:38)
[2019-01-31] MEDS: ASPIRIN 81 MG ECTAB PO SCH (21:38)
[2019-01-31] MEDS: MIRTAZAPINE SOLTAB 15 MG PO SCH (21:38)
[2019-01-31] MEDS: TRAZODONE HCL 50 MG TAB PO SCH (21:39)
[2019-01-31] MEDS: GABAPENTIN 400 MG CAP PO SCH (21:39)
[2019-01-31] MEDS: ROPINIROLE HCL 1 MG TABLET PO SCH (21:40)
--- NOTE | 2019-01-31 22:52 | Magnetic Resonance Report ---
MRA OF THE NECK WITHOUT CONTRAST CLINICAL HISTORY: Stroke evaluation. COMPARISON STUDY: MRA of the neck April 15, 2016. Carotid ultrasound November 29, 2016. TECHNIQUE: A 1.5 Violet magnet was utilized. 2-D and 3-D uchk-my-hznisd imaging was performed to obt ain unenhanced MRA of the neck. NASCET criteria were utilized to estimate the degree of carotid sten osis. FINDINGS: Exam is compromised given lack of postcontrast imaging and mild motion artifact. Note is ma de of moderate stenosis of the intracranial portion of the left internal carotid artery at the juncti on of the petrous and cavernous portions. There is also suspected 50% narrowing within the proximal l eft internal carotid artery which is unchanged since MRI of April 15, 2016. No stenosis within the righ t internal carotid artery is noted. The bilateral common carotid arteries and cervical vertebral anna korina appear patent. IMPRESSION: 1. Exam compromised given lack of postcontrast imaging and mild motion artifact. Suspected 50% narrow ing of the proximal left internal carotid artery which is similar to MRI of April 15, 2016. 2. Moderate narrowing of the intracranial portion of the left internal carotid artery at the junction of the petrous and cavernous portions. Electronically signed by: Brijesh Jeter M.D. 01/31/2019 10:51 PM
--- NOTE | 2019-01-31 22:54 | Magnetic Resonance Report ---
MRA OF THE INTRACRANIAL CIRCULATION WITHOUT CONTRAST CLINICAL HISTORY: Stroke evaluation. COMPARISON STUDY: MRA of the head April 15, 2016. TECHNIQUE: Utilizing a 1.5 Violet magnet and 3-D oyer-sn-icwegl technique, unenhanced MRA of the intra cranial circulation was obtained. FINDINGS: There is moderate stenosis of the left internal carotid artery at the junction of the yosef us and cavernous carotids. This is new since exam of April 15, 2016. No additional significant stenoses are identified on this examination. 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 N o intracranial aneurysm or abrupt vessel cut off is identified. The posterior circulation is also int act. The right vertebral artery is dominant. Mild intracranial irregularity is due to atherosclerosis . IMPRESSION: 1. Moderate stenosis of the left internal carotid artery at the junction of the petrous and cavernous portions which appears new since MRA of April 15, 2016. 2. No abrupt vessel cut off. No intracranial aneurysm. Electronically signed by: Brijesh Jeter M.D. 01/31/2019 10:53 PM
[2019-02-01] MEDS: INSULIN ASPART 100 UNITS/ML 3 ML PEN SC SCH ×5 (04:46→20:44)
[2019-02-01 07:21] LABS: Hematocrit (blood only) 31.3 % (37-47); Hemoglobin 10.7 g/dL (12.0-16.0); Mean Corpuscular Hgb Conc 34.2 g/dL (32-36); Mean Corpuscular Volume 89.7 fL (80-100); Mean Platelet Volume 9.4 fL (7.4-10.4); Platelet Count 204 K/uL (130-400); RDW Coefficient of Variation 13.8 % (11.5-14.5); RDW Standard Deviation 44.8 fL (36.4-46.3); Red Blood Count 3.49 M/uL (4.2-5.4)
[2019-02-01 07:55] LABS: BUN Creatinine Ratio 18.6 (10-20); Calcium 8.4 mg/dl (8.5-10.1); Creatinine Clr Calc Pharmacy 31.6 ml/min; Est GFR (African American) 44.7; Est GFR (Non-African American) 38.5; Potassium 4.2 mmol/L (3.5-5.1)
[2019-02-01] MEDS: AMLODIPINE BESYLATE 5 MG TAB PO SCH (08:54)
[2019-02-01] MEDS: LOSARTAN POTASSIUM 50 MG TAB PO SCH (08:55)
[2019-02-01] MEDS: ATORVASTATIN 40 MG TAB PO SCH (08:55)
[2019-02-01] MEDS: CLOPIDOGREL BISULFATE 75 MG TAB PO SCH (08:55)
[2019-02-01] MEDS: ISOSORBIDE MONO EXTENDED REL 30 MG TABCR PO SCH (08:55)
[2019-02-01] MEDS: PANCREAZE (LIPASE 4,200U) CAP PO SCH ×4 (08:56→20:40)
[2019-02-01] MEDS: INSULIN HUMAN NPH SC SCH ×2 (08:56→17:55)
[2019-02-01] MEDS: MAGNESIUM OXIDE 400 MG TAB PO SCH (08:56)
[2019-02-01] MEDS: METOPROLOL TARTRATE 25 MG TAB PO SCH ×2 (08:56→20:40)
[2019-02-01] MEDS: ACETAMINOPHEN 325 MG TAB PO PRN ×2 (08:59→18:35)
--- NOTE | 2019-02-01 13:58 | Hospitalist Progress Note ---
Date of Service February 01, 2019 Assessment & Plan (1) Acute CVA (cerebrovascular accident): (2) Chest pain, unspecified: (3) S/P cardiac catheterization: (4) Non-STEMI (non-ST elevated myocardial infarction): (5) Valvular heart disease: (6) Left bundle branch block: (7) Pneumonia: (8) Gastroparesis: (9) Dyslipidemia: (10) HTN (hypertension): (11) Depression: (12) RLS (restless legs syndrome): (13) Peripheral neuropathy: (14) Anxiety: (15) COPD (chronic obstructive pulmonary disease): (16) Diabetes mellitus, type II: (17) Sleep apnea: (18) CKD (chronic kidney disease), stage III: (19) Chronic pancreatitis: (20) Pre-syncope: (21) Weakness: (22) Leukocytosis: Heparin gtt stopped due to CVA, tele, Dr Caldwell on case, Dr Ferguson on case, ASA, ARB, BB, Statin, Echo done, Serial Trops Noted SSI, 70/30 Insulin, Rx to dose Pain control Inhalers Rocephin Continue outpatient meds where appropriate Lipase MRI/CTH-+ for Acute to Subacute CVA/Lacunar Infarct L Fronal White Matter PT/OT/Acute rehab [facility] when bed available, No beds today Subjective 78 y/o F with PMH asthma, COPD, anxiety, depression, HTN, HLD, DM II, CKD III, chronic pancreatitis s/p stent, h/o pancreatic cyst, fatty liver, sleep apnea, CVA, peripheral neuropathy, RLS, insomnia presented to ER from home c/o CP. She was recently DCd on the after being sent in from the Cardiology clinic c a new LBBB sec to a NSTEMI. She went to the engineering laboratory technician and received two stents- ostial and proximal circumflex obtuse marginal, mid RCA. She was DCd in stable condition. She didn't take her meds last night, but took them this am instead. She was given SL NTG and ASA by EMS. She said it was the same pain as her AMI symptoms. Family said she was confused today and had garbled speech. She also said she was wobbly on her feet. An MRI done revealed a Acute to Subacute CVA/Lacunar Infarct L Frontal Area ROS-No Headache, No Visual Changes, No Fever, No Chills, No Neck Pain or Stiffness, + Chest Pain, No Palpitations, No SOB, No LAL, No Cough, No Sputum, No Wheezing, No Abdominal Pain, No Diarrhea, No Hematemesis, No Hemoptysis, No Unexpected Weight Loss, No Flank pain, No Melena, No Hematochezia, No Frequency, No Urgency, No Burning, No Hematuria, No Rashes, No Diaphoresis. Appetite is Normal, Confusion Physical Exam Gen-AAO x 3, NAD, Afebrile, Obese Head-NCAT, EOMI, PERRLA, Anicteric Sclera, No Posterior Pharyngeal Erythema Neck-Supple, No JVD, No Thyromegaly, No Masses, No LAD, No Bruits Lungs-Clear to Auscultation Bilaterally, No Rales, No Rhonchi, No Wheezing, No Crepitus Chest-No S4, +S1, +S2, No S3, No Murmurs, No Rubs, No Gallops, No Ectopy, CP reproducible on Palpation Abdomen-Soft, Obese, Bowel Sounds Present, Non Tender, Non Distended, No Hepatomegaly, No Splenomegaly, No Palpable Masses, No Rebound, No Rigidity, No Guarding Musculoskeletal-Full Range of Motion Bilaterally, No CVAT Extremities-No Cyanosis, No Clubbing, No Edema Nuero-Cranial Nerves II-XII grossly intact, Motor WNL, DTRs WNL, Strength WNL, No Focal Psych-Normal Mood Physical Exam Vital Signs (Past 24 Hours): Last Vital Signs Temp 36.6 C 02/01/19 11:15 Pulse 65 02/01/19 11:15 Resp 20 02/01/19 11:15 BP 134/73 02/01/19 11:15 Pulse Ox 98 02/01/19 11:15 Results & Data Laboratory Results reviewed (1) Chest pain, unspecified Chest pain type: unspecified Qualified Code(s): R07.9 - Chest pain, unspecified
--- NOTE | 2019-02-01 14:04 | Cardiology Progress Note ---
Date of Service February 01, 2019 Assessment & Plan (1) Acute CVA (cerebrovascular accident): No focal deficits and confusion has resolved this morning. Continue dual antiplatelet therapy with aspirin and clopidogrel Discontinue heparin No hypertension or tachycardia arrhythmias tolerating reduced dose of metoprolol. (2) Elevated troponin: Urgent echo performed at bedside in the emergency room on admission revealed normal LV systolic function without wall motion abnormality. Findings do not suggest acute stent thrombosis or acute coronary syndrome superimposed on recent coronary interventions. (3) Weakness: Patient has planned rehab stay (4) Pre-syncope: (5) Leukocytosis: (6) Left bundle branch block: Maintain telemetry to exclude underlying progression of conduction system disease Subjective Patient feels fatigued, weak but no acute complaints. Chronic chest tenderness present but no worsening chest pain or shortness of breath. Notes no fevers chills or productive cough Physical Exam Vital Signs (Past 24 Hours): Last Vital Signs Temp 36.6 C 02/01/19 11:15 Pulse 65 02/01/19 11:15 Resp 20 02/01/19 11:15 BP 134/73 02/01/19 11:15 Pulse Ox 98 02/01/19 11:15 Constitutional: + obese Eyes: PERRL, conjunctivae normal, anicteric sclerae Neck: + thick neck Respiratory: Auscultation: + diminished lung sounds (But clear) Cardiovascular: Rate/Rhythm: regular rate and regular rhythm Heart Sounds: normal S1, normal S2 and + murmur (Grade 1/6 systolic); no gallop and no cardiac rub Gastrointestinal (Abdomen): normal bowel sounds, soft, nontender, no hepatosplenomegaly Musculoskeletal: Extremities: + chronic stasis changes; no cyanosis and no clubbing Skin: no rashes, warm and dry Results & Data Laboratory Results Laboratory Results - last 24 hr 01/31/19 01/31/19 01/31/19 16:03 19:54 21:33 WBC RBC Hgb Hct MCV MCH MCHC RDW Std Deviation RDW Coeff of Stormy Plt Count MPV Sodium Potassium Chloride Carbon Dioxide Anion Gap BUN Creatinine Est Cr Clr Drug Dosing Est GFR ( Amer) Est GFR (Non-Af Amer) BUN/Creatinine Ratio Glucose POC Glucose 170 H 194 H 143 H Calcium Lipase 01/31/19 02/01/19 02/01/19 23:53 04:12 06:43 WBC RBC Hgb Hct MCV MCH MCHC RDW Std Deviation RDW Coeff of Stormy Plt Count MPV Sodium 142 Potassium 4.2 Chloride 110 H Carbon Dioxide 25 Anion Gap 7.0 BUN 25 H Creatinine 1.32 H Est Cr Clr Drug Dosing 31.6 Est GFR ( Amer) 44.7 Est GFR (Non-Af Amer) 38.5 BUN/Creatinine Ratio 18.6 Glucose 152 H POC Glucose 140 H 129 H Calcium 8.4 L Lipase 197 02/01/19 02/01/19 02/01/19 06:43 07:21 11:13 WBC 10.80 RBC 3.49 L Hgb 10.7 L Hct 31.3 L MCV 89.7 MCH 30.7 MCHC 34.2 RDW Std Deviation 44.8 RDW Coeff of Stormy 13.8 Plt Count 204 MPV 9.4 Sodium Potassium Chloride Carbon Dioxide Anion Gap BUN Creatinine Est Cr Clr Drug Dosing Est GFR ( Amer) Est GFR (Non-Af Amer) BUN/Creatinine Ratio Glucose POC Glucose 141 H 255 H Calcium Lipase
--- NOTE | 2019-02-01 14:25 | Neurology Progress Note ---
Date of Service February 01, 2019 Assessment & Plan (1) Acute CVA (cerebrovascular accident): 1. MRI reveals lacunar frontal stroke acute subacute 2. needs evaluation of vessels CTA head and neck would be optimal but she has dye allergy, MRA head and neck -done mild narrowing of L ICA increased from previous imaging 3. continue Plavix 75 mg and aspirin 81 mg- may not be taking as directed 4. cardiology TTE - 60-65% EF 5. PT/OT speech for discharge needs 6. will likely need some rehab before returning home 7. nursing - home safety check- may need high level of care 8. fall precautions 9. optimize DM,HLD, HTN LDL <70 follow in neurology clinic in 4-6 weeks after discharge from rehab Roxana Adamson PAC schedule. Supervising Physician Co-Signing Physician Notes I have seen and discussed above patient with Dr Yonas Ferguson, neurology I have seen Mrs. Kaplan today, discussed her case with Roxana Adamson, and examined her in the presence of her granddaughter. Diagnostic studies have included analysis of cerebral blood flow with a an MRA which shows only some mild narrowing of the left internal carotid artery slightly increased from prior imaging. This potentially could have been a source of embolization but I would not treat her differently than her current regimen of 81 mg aspirin and 75 mg of Plavix Normal with exception of the old left-sided deficits but she continues to rub her right arm and states that she for several days now. She describes a paresthetic sensation and on exam today there was a weakly positive Spurling sign suggesting that some of this might be coming from the cervical spine. Certainly the location of the demonstrable infarct the left frontal lobe would be a poor explanation for the right upper extremity sensory phenomena as there is really no motor weakness clumsiness or any other signs of a descending motor pathway disorder and the sensory pathways anatomically are nowhere near the area of infarction. That having been said I think [facility]. I do not think she will require a long stay as her deficits of any are pretty minor. This will afford the family time to try to get things organized in her home that she has not strong history of poor drug compliance despite multiple efforts to redirect her unless backup plans are in place. If the right upper extremity sensory phenomenon remain an issue when we see her in point I suggested we go ahead with a cervical MRI is to be sure there is not a mid cervical disc likely at the C6-7 level with significant foraminal encroachment. She is not really a surgical candidate light of her recent coronary artery revascularization but she might be a pain management candidate for local injection therapy if indeed her symptoms become more painful Yonas Ramírez Angelica is a 78 year old female PMH asthma, COPD, anxiety, depression, HTN, HLD, DM II, CKD III, chronic pancreatitis s/p stent, h/o pancreatic cyst, fatty liver, sleep apnea, CVA, peripheral neuropathy, RLS, insomnia presented to ED with CP. She was recently discharged on the after being sent in from the Cardiology clinic with a new LBBB sec to a NSTEMI. She underwent two stents- ostial and proximal circumflex obtuse marginal, mid RCA. She was discharged in stable condition. Her granddaughter is in the room and states she mistakenly t ook her night meds instead of her morning meds. Granddaughter states she takes some sedating medication at night and she thinks this caused the slurred speech and confusion. She states her right side was effected by her previous TIAs but this time her right arm had parathesias which is still present. PT/OT are recommending [facility] before returning home. She lives alone but her family is here because of the [place] and stenting. She is also complaining of a head cold which she has had for months but she has not had her allergy medications she usually takes. She states she is in agreement to go to [facility] prior to going home. Also discussed home healthy due to medication errors. She would like to return to driving which is being discouraged at this time. will need rehab and further testing before she resumes driving. Her and her grand kids voice understanding. denies current CP, SOB, abdominal pain, new weakness, N, V, +generalized weakness, numbness in right arm. Physical Exam Vital Signs (Past 24 Hours): Last Vital Signs Temp 36.6 C 02/01/19 11:15 Pulse 65 02/01/19 11:15 Resp 20 02/01/19 11:15 BP 134/73 02/01/19 11:15 Pulse Ox 98 02/01/19 11:15 Physical Exam: Constitutional: appearance over nourished, healthy Ears, Nose, Mouth and Throat: mucous membranes moist, no injection and skin normal, eyes normal Cardiovascular: normal S-1 and S-2 and regular rate and rhythm Respiratory: clear to auscultation (CTA) and no rales, ronchi or wheeze Musculoskeletal: no peripheral edema and good distal pulses Skin: no stigmata of neurocutaneous disease noted and normal and intact Eyes: extraocular muscles intact (EOMI) and pupils equal, round and reactive to light (PERRL) NEUROLOGIC EXAMINATION: Mental status: Alert and interactive Oriented to full date and location Oriented to person Speech fluent with no evidence of aphasia Cranial Nerves smile eye brow raise symmetric Sensory: decreased sensation in right arm with light touch Coordination: finger to nose no bi pass Gait/Stance: Posture normal. stands without assistance, off balance walking without walker Motor: Negative for pronator drift of out stretched arms with eyes closed. Strength: biceps triceps hand river rat 4+/5 bilaterally, hip flex 4+/5 bilaterally Results & Data Laboratory Results Abnormal lab results 01/31/19 01/31/19 01/31/19 Range/Units 16:03 19:54 21:33 RBC (4.2-5.4) M/uL Hgb (12.0-16.0) g/dL Hct (37-47) % Chloride (98-107) mmol/L BUN (7-18) mg/dl Creatinine (0.6-1.2) mg/dl Glucose (70-99) mg/dl POC Glucose 170 H 194 H 143 H (70-99) Calcium (8.5-10.1) mg/dl 01/31/19 02/01/19 02/01/19 Range/Units 23:53 04:12 06:43 RBC (4.2-5.4) M/uL Hgb (12.0-16.0) g/dL Hct (37-47) % Chloride 110 H (98-107) mmol/L BUN 25 H (7-18) mg/dl Creatinine 1.32 H (0.6-1.2) mg/dl Glucose 152 H (70-99) mg/dl POC Glucose 140 H 129 H (70-99) Calcium 8.4 L (8.5-10.1) mg/dl 02/01/19 02/01/19 02/01/19 Range/Units 06:43 07:21 11:13 RBC 3.49 L (4.2-5.4) M/uL Hgb 10.7 L (12.0-16.0) g/dL Hct 31.3 L (37-47) % Chloride (98-107) mmol/L BUN (7-18) mg/dl Creatinine (0.6-1.2) mg/dl Glucose (70-99) mg/dl POC Glucose 141 H 255 H (70-99) Calcium (8.5-10.1) mg/dl Diagnostic Findings MRA head- Moderate stenosis of the left internal carotid artery at the junction of the petrous and cavernous portions which appears new since MRA of April 15, 2016. No abrupt vessel cut off. No intracranial aneurysm. MRA neck-Exam compromised given lack of postcontrast imaging and mild motion artifact. Suspected 50% narrowing of the proximal left internal carotid artery which is similar to MRI of April 15, 2016. Moderate narrowing of the intracranial portion of the left internal carotid artery at the junction of the petrous and cavernous portions.
[2019-02-01] MEDS: TRAZODONE HCL 50 MG TAB PO SCH (20:39)
[2019-02-01] MEDS: ROPINIROLE HCL 1 MG TABLET PO SCH (20:40)
[2019-02-01] MEDS: GABAPENTIN 400 MG CAP PO SCH (20:40)
[2019-02-01] MEDS: MIRTAZAPINE SOLTAB 15 MG PO SCH (20:40)
[2019-02-01] MEDS: ASPIRIN 81 MG ECTAB PO SCH (20:43)
[2019-02-02] MEDS: ACETAMINOPHEN 325 MG TAB PO PRN ×2 (05:33→12:07)
[2019-02-02 06:58] LABS: Hematocrit (blood only) 29.9 % (37-47); Hemoglobin 10.3 g/dL (12.0-16.0); Mean Corpuscular Hgb Conc 34.4 g/dL (32-36); Mean Corpuscular Volume 90.3 fL (80-100); Platelet Count 196 K/uL (130-400); RDW Coefficient of Variation 13.7 % (11.5-14.5); RDW Standard Deviation 45.2 fL (36.4-46.3); Red Blood Count 3.31 M/uL (4.2-5.4); White Blood Count 13.59 K/uL (4.8-10.8)
[2019-02-02 07:36] LABS: BUN Creatinine Ratio 16.3 (10-20); Calcium 8.2 mg/dl (8.5-10.1); Creatinine Clr Calc Pharmacy 32.1 ml/min; Est GFR (African American) 45.9; Est GFR (Non-African American) 39.6; Potassium 4.1 mmol/L (3.5-5.1)
[2019-02-02] MEDS: INSULIN HUMAN NPH SC SCH (08:51)
[2019-02-02] MEDS: INSULIN ASPART 100 UNITS/ML 3 ML PEN SC SCH ×2 (08:51→12:09)
[2019-02-02] MEDS: AMLODIPINE BESYLATE 5 MG TAB PO SCH (08:52)
[2019-02-02] MEDS: METOPROLOL TARTRATE 25 MG TAB PO SCH (08:52)
[2019-02-02] MEDS: MAGNESIUM OXIDE 400 MG TAB PO SCH (08:52)
[2019-02-02] MEDS: PANCREAZE (LIPASE 4,200U) CAP PO SCH ×2 (08:52→12:07)
[2019-02-02] MEDS: LOSARTAN POTASSIUM 50 MG TAB PO SCH (08:52)
[2019-02-02] MEDS: ATORVASTATIN 40 MG TAB PO SCH (08:52)
[2019-02-02] MEDS: CLOPIDOGREL BISULFATE 75 MG TAB PO SCH (08:52)
[2019-02-02] MEDS: ISOSORBIDE MONO EXTENDED REL 30 MG TABCR PO SCH (08:53)
[2019-02-02] MEDS: XYZAL ~ ORDER AWAITING ACTION SCH ×2 (09:46→09:47)
--- NOTE | 2019-02-02 09:52 | Hospitalist Progress Note ---
Date of Service February 02, 2019 Assessment & Plan (1) Acute CVA (cerebrovascular accident): (2) Chest pain, unspecified: (3) S/P cardiac catheterization: (4) Non-STEMI (non-ST elevated myocardial infarction): (5) Valvular heart disease: (6) Left bundle branch block: (7) Pneumonia: (8) Gastroparesis: (9) Dyslipidemia: (10) HTN (hypertension): (11) Depression: (12) RLS (restless legs syndrome): (13) Peripheral neuropathy: (14) Anxiety: (15) COPD (chronic obstructive pulmonary disease): (16) Diabetes mellitus, type II: (17) Sleep apnea: (18) CKD (chronic kidney disease), stage III: (19) Chronic pancreatitis: (20) Pre-syncope: (21) Weakness: (22) Leukocytosis: MRI head showed acute to subacute lacunar infarct identified in the left frontal white matter. MRA head showed Moderate stenosis of the left internal carotid artery at the junction of the petrous and cavernous portion MRA neck showed Moderate narrowing of the intracranial portion of the left internal carotid artery at the junction of the petrous and cavernous portions. Neuro on board Continue plavix and apirin Cardiology on board and Heparin gtt stopped due to CVA Metoprolol was reduced by cardio due to increase fatigue ECHO showed normal wall motion abnormality with EF 60-65% Findings do not suggest acute stent thrombosis or acute coronary syndrome superimposed on recent coronary interventions. Continue physical and occupational therapy Follow with neurology clinic in 4-6 weeks after discharge from rehab Roxana Adamson PAC schedule. Stable to discharge to rehab today Subjective Pt was seen and examined Lying in bed with no distress Pt said that she continues to feel numb in her right upper extremity She said that she have been rubbing it constantly She said that her speech improves Denies any chest pain, palpitation, dizziness and SOB Physical Exam Vital Signs (Past 24 Hours): Last Vital Signs Temp 37.2 C 02/02/19 07:57 Pulse 85 02/02/19 07:57 Resp 18 02/02/19 07:57 BP 148/72 H 02/02/19 07:57 Pulse Ox 96 02/02/19 07:57 Physical Exam: General- No acute distress Head- atraumatic Eyes- PERRL, EOMI, ENT- oropharynx clear Neck- supple, no JVD Lungs- clear to auscultation Heart- regular rhythm;+systolic murmur Abdomen- normal bowel sounds, soft, nontender Extremities- no calf tenderness Neuro- alert, oriented x 3; PERRL, EOMI; no facial palsy; no dysarthria Skin- warm & dry (1) Chest pain, unspecified Chest pain type: unspecified Qualified Code(s): R07.9 - Chest pain, unspecified
--- NOTE | 2019-02-02 10:32 | Discharge Summary ---
Date of Service February 02, 2019 Admission HPI Per Admitting Provider 78 y/o F with PMH asthma, COPD, anxiety, depression, HTN, HLD, DM II, CKD III, chronic pancreatitis s/p stent, h/o pancreatic cyst, fatty liver, sleep apnea, CVA, peripheral neuropathy, RLS, insomnia presented to ER from home c/o CP. She was recently DCd on the 8th after being sent in from the Cardiology clinic c a new LBBB sec to a NSTEMI. She went to the manufacturing lab technician and received two stents- ostial and proximal circumflex obtuse marginal, mid RCA. She was DCd in stable condition. She didn't take her meds last night, but took them this am instead. She was given SL NTG and ASA by EMS. She said it was the same pain as her AMI symptoms. Family said she was confused today and had garbled speech. She also said she was wobbly on her feet today. ROS-No Headache, No Visual Changes, No Fever, No Chills, No Neck Pain or Stiffness, + Chest Pain, No Palpitations, No SOB, No LAL, No Cough, No Sputum, No Wheezing, No Abdominal Pain, No Diarrhea, No Hematemesis, No Hemoptysis, No Unexpected Weight Loss, No Flank pain, No Melena, No Hematochezia, No Frequency, No Urgency, No Burning, No Hematuria, No Rashes, No Diaphoresis. Appetite is Normal, Confusion Physical Exam Gen-AAO x 3, NAD, Afebrile, Obese Head-NCAT, EOMI, PERRLA, Anicteric Sclera, No Posterior Pharyngeal Erythema Neck-Supple, No JVD, No Thyromegaly, No Masses, No LAD, No Bruits Lungs-Clear to Auscultation Bilaterally, No Rales, No Rhonchi, No Wheezing, No Crepitus Chest-No S4, +S1, +S2, No S3, No Murmurs, No Rubs, No Gallops, No Ectopy, CP reproducible on Palpation Abdomen-Soft, Obese, Bowel Sounds Present, Non Tender, Non Distended, No Hepatomegaly, No Splenomegaly, No Palpable Masses, No Rebound, No Rigidity, No Guarding Musculoskeletal-Full Range of Motion Bilaterally, No CVAT Extremities-No Cyanosis, No Clubbing, No Edema Nuero-Cranial Nerves II-XII grossly intact, Motor WNL, DTRs WNL, Strength WNL, No Focal Psych-Normal Mood Principal Diagnosis ACUTE CVA Discharge Exam General- No acute distress Head- atraumatic Eyes- PERRL, EOMI, ENT- oropharynx clear Neck- supple, no JVD Lungs- clear to auscultation Heart- regular rhythm;+systolic murmur Abdomen- normal bowel sounds, soft, nontender Extremities- no calf tenderness Neuro- alert, oriented x 3; PERRL, EOMI; no facial palsy; no dysarthria Skin- warm & dry Discharge Data Allergies Allergy/AdvReac Type Severity Reaction Status Date / Time Iodinated Contrast- Oral and Allergy Severe RASH TO Verified 01/26/19 15:38 IV Dye IVP DYE,NAUSEA, FAINTING, COUGHING, GAGGING, HEADACH Sulfa (Sulfonamide Allergy Severe HIVES, Verified 01/26/19 15:38 Antibiotics) FACIAL AND ARM SWELLING cerivastatin Allergy Intermediate HIVES Verified 01/26/19 15:38 codeine Allergy Intermediate "PRICKLY Verified 01/26/19 15:38 RASH" hydroxyzine Allergy Intermediate N/V Verified 01/26/19 15:38 latex Allergy Intermediate DERMATITIS-PT Verified 01/26/19 15:38 TOLERATED A LATEX CATHETER 03/26/08 Bactrim Allergy Mild RASH Verified 04/29/18 14:40 diphenhydramine Allergy Mild RASH; Verified 01/26/19 15:38 SLEEPINESS WITH "PHARBEDRYL" loratadine Allergy Mild HIVES Verified 01/26/19 15:38 sulfamethoxazole Allergy Mild RASH Verified 01/26/19 15:38 trimethoprim Allergy Mild RASH Verified 01/26/19 15:38 prednisone Allergy Unknown elevates Verified 01/26/19 15:38 blood sugar tetanus toxoid, adsorbed AdvReac Intermediate SWELLING Verified 01/26/19 15:38 AT INJECTION SITE alprazolam AdvReac Unknown "SLEEPY Verified 01/26/19 15:38 STUPER" metformin AdvReac Unknown DIARRHEA Verified 01/26/19 15:38 morphine AdvReac Unknown VOMITING Verified 01/26/19 15:38 simvastatin AdvReac Unknown COUGH, Verified 01/26/19 15:38 "DISCOMFORT" Consultations 01/30/19 14:37 ED Decision to Admit Stat 01/30/19 17:23 Consult Cardiology Routine 01/31/19 07:37 Consult Neurology Routine 01/31/19 11:41 Consult Case Management - Discharge Planning Routine Ordered Studies 01/30/19 15:20 CT head/brain wo con Stat 01/30/19 17:23 MR brain wo con Routine 01/31/19 15:47 MR angio head wo con Routine MR angio neck wo con Routine MRA OF THE NECK WITHOUT CONTRAST CLINICAL HISTORY: Stroke evaluation. COMPARISON STUDY: MRA of the neck April 15, 2016. Carotid ultrasound November 29, 2016. TECHNIQUE: A 1.5 Violet magnet was utilized. 2-D and 3-D [id number] imaging was performed to obtain unenhanced MRA of the neck. NASCET criteria were utilized to estimate the degree of carotid stenosis. FINDINGS: Exam is compromised given lack of postcontrast imaging and mild motion artifact. Note is made of moderate stenosis of the intracranial portion of the left internal carotid artery at the junction of the petrous and cavernous portions. There is also suspected 50% narrowing within the proximal left internal carotid artery which is unchanged since MRI of April 15, 2016. No stenosis within the right internal carotid artery is noted. The bilateral common carotid arteries and cervical vertebral arteries appear patent. IMPRESSION: 1. Exam compromised given lack of postcontrast imaging and mild motion artifact. Suspected 50% narrowing of the proximal left internal carotid artery which is similar to MRI of April 15, 2016. 2. Moderate narrowing of the intracranial portion of the left internal carotid artery at the junction of the petrous and cavernous portions. Electronically signed by: Briejsh Jeter M.D. 01/31/2019 10:51 PM Dictated: 01/31/192246 Transcribed: 01/31/192246 MRA OF THE INTRACRANIAL CIRCULATION WITHOUT CONTRAST CLINICAL HISTORY: Stroke evaluation. COMPARISON STUDY: MRA of the head April 15, 2016. TECHNIQUE: Utilizing a 1.5 Violet magnet and 3-D [id number]-cb-[id number] technique, unenhanced MRA of the intracranial circulation was obtained. FINDINGS: There is moderate stenosis of the left internal carotid artery at the junction of the petrous and cavernous carotids. This is new since exam of April 15, 2016. No additional significant stenoses are identified on this examination. 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 No intracranial aneurysm or abrupt vessel cut off is identified. The posterior circulation is also intact. The right vertebral artery is dominant. Mild intracranial irregularity is due to atherosclerosis. IMPRESSION: 1. Moderate stenosis of the left internal carotid artery at the junction of the petrous and cavernous portions which appears new since MRA of April 15, 2016. 2. No abrupt vessel cut off. No intracranial aneurysm. Electronically signed by: Brijesh Jeter M.D. 01/31/2019 10:53 PM Dictated: 01/31/192141 Transcribed: 01/31/192148 MRI OF THE BRAIN WITHOUT IV CONTRAST CLINICAL HISTORY: Weakness. Change in mental status. COMPARISON STUDY: CT of the brain dated 01/30/2019. TECHNIQUE: MRI of the brain was performed utilizing various T1 and T2-weighted sequences in the axial, sagittal, and coronal planes. IV contrast was not administered for this examination. Several sequences were repeated due to motion artifact. FINDINGS: Brain parenchyma: There are age-related involutional changes noting moderate patchy subcortical and periventricular microangiopathic disease. There is a 7 mm focus of restricted diffusion identified within the left frontal white matter consistent with an acute to subacute lacunar infarct. No additional foci of acute ischemia are identified. There is no hemorrhage or mass effect. Grady- white matter differentiation is preserved. No extra-axial fluid collection is seen. The cerebellar tonsils are normal in configuration. Ventricles, sulci, and cisterns: Prominent secondary to involutional change. Pituitary and sella: Partially empty sella is incidentally noted. Intracranial vasculature: Normal flow voids are maintained at the skull base. Orbits: The bony orbits are grossly intact. Orbital contents are normal in appearance comment noting bilateral ocular lens implants. Sinuses and mastoids: There is moderate mucosal thickening within the ethmoid sinuses. Mild mucosal thickening is seen within the sphenoid and maxillary sinuses. There are small mastoid effusions. Calvarium: Unremarkable. Cervical cord: Partially visualized cervical spinal cord is normal in morphology and signal intensity. IMPRESSION: 1. There is an acute to subacute lacunar infarct identified in the left frontal white matter. 2. No additional foci of acute ischemia are identified. 3. There is no hemorrhage or mass effect. Electronically signed by: Ramez Blanchard M.D. 01/31/2019 7:05 AM Dictated: 01/31/19701 Transcribed: 01/31/19701 CT head/brain wo con CT DOSE: 691.05 mGy.cm HISTORY: Mental status change confusion eval for bleed TECHNIQUE: Multiaxial CT images of the head were performed without the use of intravenous contrast. A dose lowering technique was utilized adhering to the principles of ALARA. Comparison: 12/04/2016 Findings: Mild mucosal thickening ethmoid and sphenoid sinuses. The calvarium and skull base are intact. The ventricles and sulci are within normal limits. There is no mass, hematoma, midline shift, or acute infarct. Impression: No acute intracranial abnormality. Mild ethmoid and sphenoid sinus change. The above report was generated using voice recognition software. It may contain grammatical, syntax or spelling errors. Electronically signed by: Sigifredo Rubio M.D. 01/30/2019 4:28 PM Dictated: 01/30/191626 Transcribed: 01/30/191626 XR chest 1V portable CLINICAL HISTORY: Chest Pain dyspnea COMPARISON STUDY: 01/26/2019 FINDINGS: Minimal patchy parenchymal infiltrate left base. Lungs otherwise appear clear. Diaphragms smooth. Central catheter in the right atrium. IMPRESSION: Small patchy parenchymal infiltrate left base. The above report was generated using voice recognition software. It may contain grammatical, syntax or spelling errors. Electronically signed by: Sigifredo Rubio M.D. 01/30/2019 2:08 PM Dictated: 01/30/19 140 Transcribed: 01/30/19 140 Hospital Course (1) Acute CVA (cerebrovascular accident): (2) Chest pain, unspecified: (3) S/P cardiac catheterization: (4) Non-STEMI (non-ST elevated myocardial infarction): (5) Valvular heart disease: (6) Left bundle branch block: (7) Pneumonia: (8) Gastroparesis: (9) Dyslipidemia: (10) HTN (hypertension): (11) Depression: (12) RLS (restless legs syndrome): (13) Peripheral neuropathy: (14) Anxiety: (15) COPD (chronic obstructive pulmonary disease): (16) Diabetes mellitus, type II: (17) Sleep apnea: (18) CKD (chronic kidney disease), stage III: (19) Chronic pancreatitis: (20) Pre-syncope: (21) Weakness: (22) Leukocytosis: MRI head showed acute to subacute lacunar infarct identified in the left frontal white matter. MRA head showed Moderate stenosis of the left internal carotid artery at the junction of the petrous and cavernous portion MRA neck showed Moderate narrowing of the intracranial portion of the left internal carotid artery at the junction of the petrous and cavernous portions. Neuro on board Continue plavix and apirin Cardiology on board and Heparin gtt stopped due to CVA Metoprolol was reduced by cardio due to increase fatigue ECHO showed normal wall motion abnormality with EF 60-65% Findings do not suggest acute stent thrombosis or acute coronary syndrome superimposed on recent coronary interventions. Continue physical and occupational therapy Follow with neurology clinic in 4-6 weeks after discharge from rehab Roxana Adamson PAC schedule. Stable to discharge to rehab today Total Time Total Time Spent Total Time Spent (In Minutes): 35 minutes Total Time Includes: Examination of the Patient, Discharge Planning, Medication Reconciliation, Communication With Other Providers and Other Discharge Plan Discharge Items Patient Disposition: Transfer Inpatient Rehab Fac Reason For Visit: chest pain Discharge Diagnosis: Acute CVA Discharge Goals: Decrease discomfort, Diagnostic testing, Improve function and Increase independence Activity: Resume your previous activity Activity Comment: As tolerated Non-emergency contact: Primary Care Provider and Neurologist Call non-emergency contact if: you have any medication questions Follow-up/Referrals: Colleen Jefferson [Primary Care Provider] - Diet: Carb Consistent or DM2 Addtl Provider Instructions: Follow up with your primary care provider once discharge from rehab Follow with neurology clinic in 4-6 weeks after discharge from rehab with Roxana Adamson PAC (please call to schedule) Monitor blood pressure and adjust blood pressure medication if needed Fall precaution Continue physical and occupational therapy Prescriptions: Continued trazodone 50 mg Tablet 50 mg PO HS RF: 0 ondansetron HCl [Zofran] 4 mg Tablet 4 mg PO QID PRN (Reason: Nausea) RF: 0 gabapentin [Neurontin] 400 mg Capsule 800 mg PO HS RF: 0 Humulin 70/30 U-100 Insulin 100 unit/mL (70-30) Suspension 85 units subcut BID RF: 0 aspirin 81 mg Tablet,Delayed Release (Dr/Ec) 1 tab PO QPM RF: 0 lorazepam [Ativan] 0.5 mg Tablet 0.5 mg PO Q6 PRN (Reason: Anxiety) RF: 0 ranitidine HCl [Zantac 75] 75 mg Tablet 75 mg PO BID RF: 0 amlodipine [Norvasc] 10 mg Tablet 10 mg PO QAM RF: 0 Humulin R Regular U-100 Insuln 100 unit/mL Solution 24 units subcut BID RF: 0 docusate sodium [Colace] 100 mg Capsule 100 mg PO DAILY PRN (Reason: Constipation) RF: 0 albuterol sulfate [Proventil HFA] 90 mcg/actuation Hfa Aerosol Inhaler 2 puff INHALATION QID PRN (Reason: Wheezing) RF: 0 fluticasone [Flonase Allergy Relief] 50 mcg/actuation [place],Suspension 2 spray INTRANASAL QPM PRN (Reason: allergies) RF: 0 dicyclomine 10 mg Capsule 10 mg PO TID PRN (Reason: ABDOMINAL CRAMPS) RF: 0 Creon 6,000-19,000 -30,000 unit Capsule,Delayed Release(Dr/Ec) 1 tab PO QID RF: 0 magnesium oxide 400 mg Capsule 400 mg PO QAM RF: 0 ropinirole 1 mg tablet 1 mg PO HS RF: 0 losartan 100 mg tablet 100 mg PO QAM RF: 0 levocetirizine [Xyzal] 5 mg Tablet 2.5 mg PO QPM RF: 0 albuterol sulfate 2.5 mg /3 mL (0.083 %) Solution For Nebulization 2.5 mg INHALATION QID PRN (Reason: Shortness Of Breath Or Wheezing) RF: 0 Dulera 200-5 mcg/actuation Hfa Aerosol Inhaler 2 puff INHALATION BID PRN (Reason: PRN) RF: 0 mirtazapine 45 mg Tablet 45 mg PO HS RF: 0 atorvastatin 40 mg Tablet 40 mg PO QAM Qty: 30 RF: 0 isosorbide mononitrate 30 mg Tablet Extended Release 24 Hr 30 mg PO QAM Qty: 30 RF: 0 clopidogrel 75 mg Tablet 75 mg PO QAM Qty: 30 RF: 2 nitroglycerin [Nitrostat] 0.4 mg Tablet, Sublingual 0.4 mg Sublingual PRN PRN (Reason: chest pain) Qty: 30 RF: 0 Changed metoprolol tartrate [Lopressor] 50 mg Tablet 25 mg PO BID Qty: 0 RF: 0 Stand-Alone Forms: Call Back Authorization, [facility], [facility] Discharge Orders: Discharge Order (Routine); Ordered 02/02/19 Ordered By: Adam Duque Skilled Items Patient informed of condition?: Yes DNR: No Discharge Level of Care: Acute rehab Communicable Disease: No Discharge Prognosis: Stable Admission Data Admit Date/Time: 01/31/19 07:39 Attending Provider: Adam Duque Admit Provider: Jacky Epps Primary Care Provider: Colleen Jefferson Other Providers: Jacky Epps ; Hema Caldwell ; Yonas Ferguson Service: Telemetry
[2019-02-02] MEDS ORDERED: INSULIN ASPART 100 UNITS/ML 3 ML PEN SC SCH (16:30)
[2019-02-03] MEDS ORDERED: INSULIN ASPART 100 UNITS/ML 3 ML PEN SC SCH (07:30)
== END 2019-02-02 02:00 | DRG 64 ==
LOC: 2S 13:32 → ED 13:32 → 2S 16:10 → SUATTDRO 01-31 07:39

== ENCOUNTER 2019-02-18 13:17 | Inpatient (IN) ==
[2019-02-18 15:35] LABS: Basophils # (auto) 0.08 K/uL (0-0.2); Basophils % (auto) 0.7 %; Eosinophils # (auto) 0.84 K/uL (0-0.5); Eosinophils % (auto) 7.8 %; Hematocrit (blood only) 32.8 % (37-47); Hemoglobin 11.6 g/dL (12.0-16.0); Immature Granulocytes # (auto) 0.04 K/uL (0.00-0.02); Immature Granulocytes % (auto) 0.4 %; Lymphocytes # (auto) 3.05 K/uL (1.2-3.4); Lymphocytes % (auto) 28.2 %; Mean Corpuscular Hgb Conc 35.4 g/dL (32-36); Mean Corpuscular Volume 88.4 fL (80-100); Mean Platelet Volume 9.4 fL (7.4-10.4); Monocytes # (auto) 0.45 K/uL (0.11-0.59); Monocytes % (auto) 4.2 %; Neutrophils # (auto) 6.35 K/uL (1.4-6.5); Neutrophils % (auto) 58.7 %; Platelet Count 200 K/uL (130-400); RDW Coefficient of Variation 13.5 % (11.5-14.5); RDW Standard Deviation 43.8 fL (36.4-46.3); Red Blood Count 3.71 M/uL (4.2-5.4); White Blood Count 10.81 K/uL (4.8-10.8)
--- NOTE | 2019-02-18 15:46 | CT Scan Report ---
CT OF THE HEAD WITHOUT CONTRAST CLINICAL HISTORY: Stroke evaluation COMPARISON STUDY: Head CT January 30, 2019 and MRI of the brain January 30, 2019. CT DOSE: 537.48 mGy.cm TECHNIQUE: Helical axial images of the head were obtained without IV contrast. Automated exposure con trol was utilized for the study. A dose lowering technique was utilized adhering to the principles o f ALARA. FINDINGS: No acute intracranial hemorrhage, midline shift or mass effect is present. Ventricular syst em is normal. The basilar cisterns are patent. There are no extra-axial collections. White matter hyp odensity suggests small vessel disease. There are no findings to suggest acute dural sinus thrombosis or acute territorial infarct. There are no significant calvarial abnormalities. There is moderate et hmoid and sinus mucosal thickening. IMPRESSION: No acute intracranial findings. Electronically signed by: Brijesh Jeter M.D. 02/18/2019 3:45 PM
[2019-02-18 15:47] LABS: Partial Thromboplastin Ratio 0.8; Partial Thromboplastin Time 22.2 Seconds (21.0-31.0); Prothrombin Time 10.6 Seconds (9.0-12.0)
[2019-02-18 15:59] LABS: Alanine Aminotransferase 26 U/L (12-78); Albumin Globulin Ratio 0.9 (0.9-2); Albumin Level 3.3 gm/dl (3.4-5.0); Alkaline Phosphatase 103 U/L (45-117); Aspartate Aminotransferase 22 U/L (15-37); BUN Creatinine Ratio 17.1 (10-20); Bilirubin,Total 0.2 mg/dl (0.2-1); Blood Urea Nitrogen 25 mg/dl (7-18); Calcium 8.6 mg/dl (8.5-10.1); Carbon Dioxide 23 mmol/L (21-32); Chloride 109 mmol/L (98-107); Creatinine Clr Calc Pharmacy 27.7 ml/min; Est GFR (African American) 38.6; Est GFR (Non-African American) 33.3; Globulin 3.8 gm/dl (2.5-4.0); Glucose 430 mg/dl (70-99); Magnesium 2.1 mg/dl (1.8-2.4); Potassium 4.9 mmol/L (3.5-5.1); Sodium 137 mmol/L (136-145); Total Protein 7.1 gm/dl (6.4-8.2)
[2019-02-18 16:11] LABS: Beta-Hydroxybutyrate 1.57 mg/dl (0.2-2.81)
[2019-02-18 16:15] LABS: Troponin I < 0.015 ng/ml (0-0.045)
[2019-02-18] MEDS ORDERED: NovoLIN-R INSULIN PER UNIT CHARGE IV STA (16:44)
[2019-02-18] MEDS ORDERED: ACETAMINOPHEN 325 MG TAB PO STA (17:35)
--- NOTE | 2019-02-18 18:40 | History & Physical Report ---
Date of Service February 18, 2019 Assessment & Plan (1) Stroke-like symptoms: Present on admission with weakness and numbness in extremities Recent Lacunar infarct on [address] head on admission showed no acute intracranial finding Stroke alert called and did not meet criteria for TPA Continue plavix and aspirin Will get MRA and MRI brain Will get a carotid u/s Neuro consult Speech and PT/OT eval Monitor in tele Chest pain Reproducible on exam Troponin negative on admission EKG showed Will trend trop level repeat EKG in am Continue plavix, aspirin, statin and metoprolol Hyperglycemia DM type 2 BS on admission 430 pharmacy on board for glycemic managment continue insulin HTN BP elevated possible due to hospital setting Continue BP meds Monitor BP DVT px on heparin subq CODE STATUS FULL No Mech Ventillation Disposition Will discharge once medically stable History of Present Illness Chief Complaint: 78 y/o F with PMH asthma, COPD, anxiety, depression, HTN, HLD, DM II, CKD III, chronic pancreatitis s/p stent, h/o pancreatic cyst, fatty liver, sleep apnea, CVA, peripheral neuropathy, RLS, insomnia, was recently discharged on 02/02 after having a CVA presented to ER today with stroke like sym ptoms. Pt said that this morning she woke fine. She said that she took a shower and ate breakfast. She said that later she was getting ready to do laundry after putting the clothes in the laundry machine, she tried to grab the empty basket, but her arms felt numb and weak and she was not able to lift the basket. she said that she felt her legs were weak and wobbly and she quickly sat on the chair. She said that she tried to stand up, but was not able to because she could not feel her legs. She said that her speech was slurred. Pt also complaint of chest pain during the episode today. Her chest pain is reproducible on exam. Grand daughter felt that she might have accidentally taken her evening medication this morning instead of her morning medication. Pt said that currently her arms are back to normal, but she said that her right leg feels weak and numb. Stoke alert called but no TPA was given since she was not a candidate for TPA. BS on admission was 430. Primary Care Provider: Colleen Jefferson Allergies Allergy/AdvReac Type Severity Reaction Status Date / Time Iodinated Contrast- Oral and Allergy Severe RASH TO Verified 02/18/19 13:50 IV Dye IVP DYE,NAUSEA, FAINTING, COUGHING, GAGGING, HEADACH Sulfa (Sulfonamide Allergy Severe HIVES, Verified 02/18/19 13:50 Antibiotics) FACIAL AND ARM SWELLING cerivastatin Allergy Intermediate HIVES Verified 02/18/19 13:50 codeine Allergy Intermediate "PRICKLY Verified 02/18/19 13:50 RASH" hydroxyzine Allergy Intermediate N/V Verified 02/18/19 13:50 latex Allergy Intermediate DERMATITIS-PT Verified 02/18/19 13:50 TOLERATED A LATEX CATHETER 03/26/08 Bactrim Allergy Mild RASH Verified 04/29/18 14:40 diphenhydramine Allergy Mild RASH; Verified 02/18/19 13:50 SLEEPINESS WITH "PHARBEDRYL" loratadine Allergy Mild HIVES Verified 02/18/19 13:50 sulfamethoxazole Allergy Mild RASH Verified 02/18/19 13:50 trimethoprim Allergy Mild RASH Verified 02/18/19 13:50 prednisone Allergy Unknown elevates Verified 02/18/19 13:50 blood sugar tetanus toxoid, adsorbed AdvReac Intermediate SWELLING Verified 02/18/19 13:50 AT INJECTION SITE alprazolam AdvReac Unknown "SLEEPY Verified 02/18/19 13:50 STUPER" metformin AdvReac Unknown DIARRHEA Verified 02/18/19 13:50 morphine AdvReac Unknown VOMITING Verified 02/18/19 13:50 simvastatin AdvReac Unknown COUGH, Verified 02/18/19 13:50 "DISCOMFORT" Home Medications Home Medications Medication Instructions Recorded Confirmed Type Creon 1 tab PO QID 08/24/18 02/18/19 History Humulin 70/30 U-100 Insulin 85 units SUBCUT BID 08/24/18 02/18/19 History Humulin R Regular U-100 Insuln 24 units SUBCUT BID 08/24/18 02/18/19 History albuterol sulfate [Proventil HFA] 2 puff INHALATION QID PRN 08/24/18 02/18/19 History amlodipine [Norvasc] 10 mg PO QAM 08/24/18 02/18/19 History aspirin 1 tab PO QPM 08/24/18 02/18/19 History dicyclomine 10 mg PO TID PRN 08/24/18 02/18/19 History docusate sodium [Colace] 100 mg PO DAILY PRN 08/24/18 02/18/19 History fluticasone propionate [Flonase 2 spray INTRANASAL QPM PRN 08/24/18 02/18/19 History Allergy Relief] gabapentin [Neurontin] 800 mg PO HS 08/24/18 02/18/19 History lorazepam [Ativan] 0.5 mg PO Q6 PRN 08/24/18 02/18/19 History magnesium oxide 400 mg PO QAM 08/24/18 02/18/19 History ondansetron HCl [Zofran] 4 mg PO QID PRN 08/24/18 02/18/19 History ranitidine HCl [Zantac 75] 75 mg PO BID 08/24/18 02/18/19 History trazodone 50 mg PO HS 08/24/18 02/18/19 History Dulera 2 puff INHALATION BID PRN 01/26/19 02/18/19 History albuterol sulfate 2.5 mg INHALATION QID PRN 01/26/19 02/18/19 History levocetirizine [Xyzal] 2.5 mg PO QPM 01/26/19 02/18/19 History losartan 100 mg PO QAM 01/26/19 02/18/19 History mirtazapine 45 mg PO HS 01/26/19 02/18/19 History ropinirole 1 mg PO HS 01/26/19 02/18/19 History atorvastatin 40 mg PO QAM #30 tab 01/28/19 02/18/19 Rx clopidogrel 75 mg PO QAM #30 tab 01/28/19 02/18/19 Rx isosorbide mononitrate 30 mg PO QAM #30 tab 01/28/19 02/18/19 Rx nitroglycerin [Nitrostat] 0.4 mg SUBLINGUAL PRN PRN #30 tab 01/28/19 02/18/19 Rx metoprolol tartrate [Lopressor] 25 mg PO BID #0 tab 02/02/19 02/18/19 Rx Past Med/Surg History Medical History Acute CVA (cerebrovascular accident) Elevated troponin Weakness Pre-syncope Leukocytosis Pneumonia Valvular heart disease Non-STEMI (non-ST elevated myocardial infarction) Left bundle branch block Giant cell arteritis (Resolved) Gastroparesis (Chronic) Dyslipidemia (Chronic) Depression (Chronic) HTN (hypertension) (Chronic) Insomnia (Chronic) RLS (restless legs syndrome) (Chronic) Peripheral neuropathy (Chronic) Pancreatic cyst (Chronic) Anxiety (Chronic) COPD (chronic obstructive pulmonary disease) (Chronic) Diabetes mellitus, type II (Chronic) Sleep apnea (Chronic) Chronic pancreatitis (Chronic) Cerebrovascular disease (Chronic) "history stroke and TIA" L sided weakness. Fatty liver (Chronic) Esophageal dysmotility (Chronic) Gastroparesis (Chronic) Pancreatic divisum (Chronic) CKD (chronic kidney disease), stage III (Chronic) Pancreatitis Aortic stenosis (Chronic) mild. Osteoarthritis (Chronic) Seasonal allergies (Chronic) Surgical History History of cataract surgery (Chronic) both eyes History of ERCP (Chronic) x3 with stents. ERCP 04/30/18. MAC 3, grade 2 view. 7.0 ETT placed. No issues. History of bilateral tubal ligation (Chronic) History of colonoscopy (Chronic) S/P cardiac catheterization Social History Communication Ability: Effective Beliefs That Will Affect Care: None marital status: / Current Living Situation: Alone Other Information That Helps Us Care for You: No Feels Safe at Home: Yes Safety Concerns: Feels Safe At This Time Smoking Status: Former smoker Hx Alcohol Use: No Hx Substance Use: No Review of Systems All systems reviewed & are unremarkable except as noted in HPI & below Physical Exam Vital Signs (Past 24 Hours): Last Vital Signs Temp 36.6 C 02/18/19 13:26 Pulse 75 02/18/19 17:00 Resp 25 H 02/18/19 17:00 BP 145/93 H 02/18/19 17:01 Pulse Ox 97 02/18/19 17:00 Physical Exam: Gen-AAO x 3, NAD, Afebrile, Obese Head-NCAT, EOMI, PERRLA, Anicteric Sclera, No Posterior Pharyngeal Erythema Neck-Supple, No JVD, No Thyromegaly, No Masses, No LAD, No Bruits Lungs-Clear to Auscultation Bilaterally, No Rales, No Rhonchi, No Wheezing, No Crepitus Chest-No S4, +S1, +S2, No S3, No Murmurs, No Rubs, No Gallops, No Ectopy, CP reproducible on Palpation Abdomen-Soft, Obese, Bowel Sounds Present, Non Tender, Non Distended, No Hepatomegaly, No Splenomegaly, No Palpable Masses, No Rebound, No Rigidity, No Guarding Musculoskeletal-Full Range of Motion Bilaterally, No CVAT Extremities-No Cyanosis, No Clubbing, No Edema Nuero- EOMI, tongue midline, finger to nose intact, decrease sensation in RLE, decrease motor strength in RLE Psych-Normal Mood Results & Data Diagnostic Findings CT OF THE HEAD WITHOUT CONTRAST CLINICAL HISTORY: Stroke evaluation COMPARISON STUDY: Head CT January 30, 2019 and MRI of the brain January 30, 2019. CT DOSE: 537.48 mGy.cm TECHNIQUE: Helical axial images of the head were obtained without IV contrast. Automated exposure control was utilized for the study. A dose lowering technique was utilized adhering to the principles of ALARA. FINDINGS: No acute intracranial hemorrhage, midline shift or mass effect is present. Ventricular system is normal. The basilar cisterns are patent. There are no extra-axial collections. White matter hypodensity suggests small vessel disease. There are no findings to suggest acute dural sinus thrombosis or acute territorial infarct. There are no significant calvarial abnormalities. There is moderate ethmoid and sinus mucosal thickening. IMPRESSION: No acute intracranial findings. Electronically signed by: Brijesh Jeter M.D. 02/18/2019 3:45 PM Dictated: 02/18/19 1542 Transcribed: 02/18/19 1542
[2019-02-18] MEDS ORDERED: PHARMACY GLYCEMIC MGMT CONSULT PRN (19:56)
[2019-02-18] MEDS ORDERED: GLUCOSE 10 TABS/TUBE PO PRN ×2 (20:12→20:15)
[2019-02-18] MEDS ORDERED: CARBOHYDRATES FOR HYPOGLYCEMIA PO PRN ×2 (20:12→20:15)
[2019-02-18] MEDS ORDERED: ALBUTEROL HFA 8 GM INHALER INH PRN (20:12)
[2019-02-18] MEDS ORDERED: PHARMACIST DISCHARGE MED REC CONSULT PRN (20:12)
[2019-02-18] MEDS ORDERED: ALBUTEROL 0.083% NEBU SOLN 3 ML VIAL INH PRN (20:12)
[2019-02-18] MEDS ORDERED: NITROGLYCERIN SL 0.4 MG/TAB TAB SL PRN (20:12)
[2019-02-18] MEDS ORDERED: DEXTROSE 50% 50 ML SYRINGE IV PRN ×2 (20:12→20:15)
[2019-02-18] MEDS ORDERED: GLUCOSE 40% GEL 15 GM TUBE PO PRN ×2 (20:12→20:15)
[2019-02-18] MEDS ORDERED: ONDANSETRON 4 MG TAB PO PRN (20:12)
[2019-02-18] MEDS ORDERED: GLUCAGON FOR INJ 1 MG VIAL SQ PRN (20:12)
[2019-02-18] MEDS ORDERED: GLUCAGON FOR INJ 1 MG VIAL IM PRN (20:15)
[2019-02-18] MEDS ORDERED: INSULIN GLARGINE SOLOSTAR 100 UNITS/ML 3 ML PEN SC SCH (21:00)
[2019-02-18] MEDS ORDERED: INSULIN ASPART 100 UNITS/ML 3 ML PEN SC SCH (21:00)
--- NOTE | 2019-02-18 22:40 | Ultrasound Report ---
US carotid doppler BI CLINICAL HISTORY: 78 years-old Female with stroke like symptoms. Acutely altered mental status with strokelike symptoms COMPARISON: CT head of same day TECHNIQUE: Multiple real time sonographic images of the carotid bifurcations were obtained assessing dominguez scale, color Doppler and spectral wave form appearance FINDINGS: RIGHT CAROTID: The peak systolic velocity within the right ICA measured 135 cm/sec. The end diastol ic velocity measured 34 cm/sec. The ICA to CCA ratio measured 1.9 which correlates with a stenosis o f 50-69%. Peak systolic velocity within the right common carotid artery measures 72 cm/s. The end larry stolic velocity measured 18 cm/s. Moderate degree of mostly calcified plaque is noted about the right carotid bulb and proximal right ICA. LEFT CAROTID: The peak systolic velocity within the left ICA measured 144 cm/sec. The end diastolic velocity measured 31 cm/sec. The ICA to CCA ratio measured 2.3 which correlates with a stenosis of 5 0-69%. The left ICA suboptimally visualized secondary to moderate calcified plaque formation. Peak s ystolic velocity within the left common carotid artery was measured at 64 cm/s. The end-diastolic kt ocity measured 13 cm/s. There is normal antegrade vertebral flow bilaterally. The pressure on the right measured 163/88 and on the left measured 149/96. IMPRESSION: 1. Moderate calcified plaque formation about the bilateral carotid bulbs correlates with elevated pea k systolic velocities corresponding to 50-69% stenosis bilaterally. 2. Antegrade flow of the bilateral vertebral arteries. The above report was generated using voice recognition software. It may contain grammatical, syntax o r spelling errors. Electronically signed by: Rob Juarez M.D. 02/18/2019 10:38 PM
[2019-02-18] MEDS: GABAPENTIN 400 MG CAP PO SCH (23:03)
[2019-02-18] MEDS: PANCREAZE (LIPASE 4,200U) CAP PO SCH (23:04)
[2019-02-18] MEDS: ASPIRIN 81 MG ECTAB PO SCH (23:04)
[2019-02-18] MEDS: TRAZODONE HCL 50 MG TAB PO SCH (23:04)
[2019-02-18] MEDS: ROPINIROLE HCL 1 MG TABLET PO SCH (23:04)
[2019-02-18] MEDS: METOPROLOL TARTRATE 25 MG TAB PO SCH (23:04)
[2019-02-18] MEDS: HEPARIN SOD 5,000 UNIT/0.5 ML VIAL SQ SCH (23:04)
[2019-02-18] MEDS: MIRTAZAPINE TAB 15 MG TAB PO SCH (23:04)
--- NOTE | 2019-02-18 23:04 | Magnetic Resonance Report ---
MR brain wo con HISTORY: 78 years-old Female stroke like symptoms acute strokelike symptoms COMPARISON: CT head of same day, MRI brain in MRA head 01/31/2019 TECHNIQUE: Multiplanar multisequence MRI of the brain was obtained without the use of IV contrast. FINDINGS: [employer] local[employer] images demonstrate no gross abnormality. No restricted diffusion to suggest acute or subacute infarction. The midline structures including the corpus callosum, brainstem, optic chiasm, p ituitary and pineal glands appear unremarkable on the sagittal T1 series. Degenerative changes noted about the imaged cervical spine. No acute intracranial hemorrhage, midline shift, abnormal extra-axial collections, hydrocephalus or i ntracranial mass. Age-related involutional changes with moderate T2/FLAIR hyperintensities about the white matter suggestive of chronic microvascular ischemic changes. Major flow voids appear patent. Mo derate mucosal thickening of the paranasal sinuses. Soft tissues, scalp and orbits appear unremarkabl e. Prior bilateral cataract repair. IMPRESSION: 1. No acute intracranial abnormality identified, specifically no acute or subacute infarct. 2. Age-related involutional changes with moderate chronic microvascular ischemic changes. The above report was generated using voice recognition software. It may contain grammatical, syntax o r spelling errors. Electronically signed by: Rob Juarez M.D. 02/18/2019 11:03 PM
[2019-02-18] MEDS: INSULIN HUMAN NPH SC SCH (23:05)
--- NOTE | 2019-02-18 23:12 | Magnetic Resonance Report ---
MR angio head wo con HISTORY: 78 years-old Female stroke like symptoms acute strokelike symptoms COMPARISON: MRA of the head 01/31/2019 TECHNIQUE: MRA of the head was obtained without the use of IV contrast utilizing 3-D [id number] s equencing. All measurements were obtained according to NASCET criteria. FINDINGS: Moderate focal narrowing about the proximal cavernous segment left ICA is unchanged. Bilateral manufacturing intern al carotid arteries are otherwise unremarkable and widely patent. The bilateral middle and right ante rior cerebral arteries are widely patent. Hypoplastic left A1 segment is unchanged. Dominant right vertebral artery. Bilateral vertebral arteries are patent. Basilar and bilateral poste rior cerebral arteries are also patent. Mild luminal narrowing of less than 50% involves the left P1 segment. No aneurysm, dissection or proximal branch occlusion. IMPRESSION: 1. Moderate focal narrowing of the proximal cavernous segment left ICA is unchanged. 2. No aneurysm, dissection or proximal branch occlusion. 3. Less than 50% luminal narrowing involves the left P1 segment, also unchanged. The above report was generated using voice recognition software. It may contain grammatical, syntax o r spelling errors. Electronically signed by: Rob Juarez M.D. 02/18/2019 11:11 PM
--- NOTE | 2019-02-18 23:18 | Emergency Department Note ---
Entered by Jose Richard acting as a scribe for Toño Correa MD History of Present Illness General Chief complaint: Leg Weakness, Bilateral Stated complaint: chest pain Time Seen by Provider: 02/18/19 15:08 Source: patient and family (granddaughter) History of Present Illness Onset (ago): hour(s) (this morning at 1130) Location: lower extremity Pain Consistency: + constant Maximum Pain Intensity: 5 Quality: + other (weakness) Associated symptoms: + other (Positive for chest pain, leg pain, and "quivering.") The patient is a 78 year old female who presents to the emergency department with complaints of constant weakness beginning this morning at 1130. The patient states that she had no strength to lift the laundry up this morning. She notes that both of her legs are weak. She notes that she also had an episode where her body was quivering. She also complains of chest pain and leg pain. She reports that it feels like bees are stinging her legs. Per granddaughter, the patient had a stroke a few years ago that affected her left side. She states that the patient had a heart attack three weeks ago that required two stents be placed. She notes that the patient then had a stroke three days later that affected her right arm. She reports that the patient might have accidentally taken her evening medication this morning instead of her morning medication. The patient states that she did not fall. She notes that she has a history of pancreatitis. She reports that she takes Plavix. Home Medications Home Medications Medication Instructions Recorded Confirmed Type Creon 1 tab PO QID 08/24/18 02/18/19 History Humulin 70/30 U-100 Insulin 85 units SUBCUT BID 08/24/18 02/18/19 History Humulin R Regular U-100 Insuln 24 units SUBCUT BID 08/24/18 02/18/19 History albuterol sulfate [Proventil HFA] 2 puff INHALATION QID PRN 08/24/18 02/18/19 History amlodipine [Norvasc] 10 mg PO QAM 08/24/18 02/18/19 History aspirin 1 tab PO QPM 08/24/18 02/18/19 History dicyclomine 10 mg PO TID PRN 08/24/18 02/18/19 History docusate sodium [Colace] 100 mg PO DAILY PRN 08/24/18 02/18/19 History fluticasone propionate [Flonase 2 spray INTRANASAL QPM PRN 08/24/18 02/18/19 History Allergy Relief] gabapentin [Neurontin] 800 mg PO HS 08/24/18 02/18/19 History lorazepam [Ativan] 0.5 mg PO Q6 PRN 08/24/18 02/18/19 History magnesium oxide 400 mg PO QAM 08/24/18 02/18/19 History ondansetron HCl [Zofran] 4 mg PO QID PRN 08/24/18 02/18/19 History ranitidine HCl [Zantac 75] 75 mg PO BID 08/24/18 02/18/19 History trazodone 50 mg PO HS 08/24/18 02/18/19 History Dulera 2 puff INHALATION BID PRN 01/26/19 02/18/19 History albuterol sulfate 2.5 mg INHALATION QID PRN 01/26/19 02/18/19 History levocetirizine [Xyzal] 2.5 mg PO QPM 01/26/19 02/18/19 History losartan 100 mg PO QAM 01/26/19 02/18/19 History mirtazapine 45 mg PO HS 01/26/19 02/18/19 History ropinirole 1 mg PO HS 01/26/19 02/18/19 History atorvastatin 40 mg PO QAM #30 tab 01/28/19 02/18/19 Rx clopidogrel 75 mg PO QAM #30 tab 01/28/19 02/18/19 Rx isosorbide mononitrate 30 mg PO QAM #30 tab 01/28/19 02/18/19 Rx nitroglycerin [Nitrostat] 0.4 mg SUBLINGUAL PRN PRN #30 tab 01/28/19 02/18/19 Rx metoprolol tartrate [Lopressor] 25 mg PO BID #0 tab 02/02/19 02/18/19 Rx Allergies Allergy/AdvReac Type Severity Reaction Status Date / Time Iodinated Contrast- Oral and Allergy Severe RASH TO Verified 02/18/19 13:50 IV Dye IVP DYE,NAUSEA, FAINTING, COUGHING, GAGGING, HEADACH Sulfa (Sulfonamide Allergy Severe HIVES, Verified 02/18/19 13:50 Antibiotics) FACIAL AND ARM SWELLING cerivastatin Allergy Intermediate HIVES Verified 02/18/19 13:50 codeine Allergy Intermediate "PRICKLY Verified 02/18/19 13:50 RASH" hydroxyzine Allergy Intermediate N/V Verified 02/18/19 13:50 latex Allergy Intermediate DERMATITIS-PT Verified 02/18/19 13:50 TOLERATED A LATEX CATHETER 03/26/08 Bactrim Allergy Mild RASH Verified 04/29/18 14:40 diphenhydramine Allergy Mild RASH; Verified 02/18/19 13:50 SLEEPINESS WITH "PHARBEDRYL" loratadine Allergy Mild HIVES Verified 02/18/19 13:50 sulfamethoxazole Allergy Mild RASH Verified 02/18/19 13:50 trimethoprim Allergy Mild RASH Verified 02/18/19 13:50 prednisone Allergy Unknown elevates Verified 02/18/19 13:50 blood sugar tetanus toxoid, adsorbed AdvReac Intermediate SWELLING Verified 02/18/19 13:50 AT INJECTION SITE alprazolam AdvReac Unknown "SLEEPY Verified 02/18/19 13:50 STUPER" metformin AdvReac Unknown DIARRHEA Verified 02/18/19 13:50 morphine AdvReac Unknown VOMITING Verified 02/18/19 13:50 simvastatin AdvReac Unknown COUGH, Verified 02/18/19 13:50 "DISCOMFORT" Past Med/Surg History Medical History Acute CVA (cerebrovascular accident) Elevated troponin Weakness Pre-syncope Leukocytosis Pneumonia Valvular heart disease Non-STEMI (non-ST elevated myocardial infarction) Left bundle branch block Giant cell arteritis (Resolved) Gastroparesis (Chronic) Dyslipidemia (Chronic) Depression (Chronic) HTN (hypertension) (Chronic) Insomnia (Chronic) RLS (restless legs syndrome) (Chronic) Peripheral neuropathy (Chronic) Pancreatic cyst (Chronic) Anxiety (Chronic) COPD (chronic obstructive pulmonary disease) (Chronic) Diabetes mellitus, type II (Chronic) Sleep apnea (Chronic) Chronic pancreatitis (Chronic) Cerebrovascular disease (Chronic) "history stroke and TIA" L sided weakness. Fatty liver (Chronic) Esophageal dysmotility (Chronic) Gastroparesis (Chronic) Pancreatic divisum (Chronic) CKD (chronic kidney disease), stage III (Chronic) Pancreatitis Aortic stenosis (Chronic) mild. Osteoarthritis (Chronic) Seasonal allergies (Chronic) Surgical History History of cataract surgery (Chronic) both eyes History of ERCP (Chronic) x3 with stents. ERCP 04/30/18. MAC 3, grade 2 view. 7.0 ETT placed. No issues. History of bilateral tubal ligation (Chronic) History of colonoscopy (Chronic) S/P cardiac catheterization Social History Communication Ability: Effective Smoke Chaser Required: No Beliefs That Will Affect Care: None marital status: / Current Living Situation: Alone Other Information That Helps Us Care for You: No Feels Safe at Home: Yes Safety Concerns: Feels Safe At This Time Smoking Status: Former smoker Hx Alcohol Use: No Hx Substance Use: No Review of Systems See HPI for pertinent positives & negatives. and A total of 10 systems reviewed and were otherwise negative Physical Exam Vital Signs Vital Signs - 24 hr 02/18/19 13:25 02/18/19 13:26 02/18/19 13:29 Temperature 36.6 C Temperature Source Oral Sepsis Recent Fever Within 48 Hours No Sepsis New/Unexplained Change in Mental Status No Sepsis Action Taken by Nursing No Action Required Pulse Rate 71 71 70 Pulse Rate [Apical] Pulse Rate from SpO2 Sensor 71 70 Pulse Rhythm [Apical] Pulse Strength [Apical] Respiratory Rate 21 18 21 Respiratory Effort / Characteristics Non-Labored Respiratory Depth Normal Respiratory Pattern Blood Pressure 152/72 H 114/82 Blood Pressure [Right Arm] Blood Pressure Mean 98 92 Blood Pressure Mean [Right Arm] Blood Pressure Position [Right Arm] Pulse Oximetry 97 98 99 Oxygen Delivery Method 02/18/19 13:30 02/18/19 13:31 02/18/19 13:45 Temperature Temperature Source Sepsis Recent Fever Within 48 Hours Sepsis New/Unexplained Change in Mental Status Sepsis Action Taken by Nursing Pulse Rate 70 70 71 Pulse Rate [Apical] Pulse Rate from SpO2 Sensor 70 70 71 Pulse Rhythm [Apical] Pulse Strength [Apical] Respiratory Rate 17 21 17 Respiratory Effort / Characteristics Respiratory Depth Respiratory Pattern Blood Pressure 147/68 H Blood Pressure [Right Arm] Blood Pressure Mean 94 Blood Pressure Mean [Right Arm] Blood Pressure Position [Right Arm] Pulse Oximetry 98 97 97 Oxygen Delivery Method 02/18/19 14:00 02/18/19 14:01 02/18/19 14:15 Temperature Temperature Source Sepsis Recent Fever Within 48 Hours Sepsis New/Unexplained Change in Mental Status Sepsis Action Taken by Nursing Pulse Rate 72 71 71 Pulse Rate [Apical] Pulse Rate from SpO2 Sensor 71 70 72 Pulse Rhythm [Apical] Pulse Strength [Apical] Respiratory Rate 18 16 18 Respiratory Effort / Characteristics Respiratory Depth Respiratory Pattern Blood Pressure 166/79 H Blood Pressure [Right Arm] Blood Pressure Mean 108 Blood Pressure Mean [Right Arm] Blood Pressure Position [Right Arm] Pulse Oximetry 96 96 97 Oxygen Delivery Method 02/18/19 14:30 02/18/19 14:31 02/18/19 14:45 Temperature Temperature Source Sepsis Recent Fever Within 48 Hours Sepsis New/Unexplained Change in Mental Status Sepsis Action Taken by Nursing Pulse Rate 71 71 Pulse Rate [Apical] Pulse Rate from SpO2 Sensor 71 70 70 Pulse Rhythm [Apical] Pulse Strength [Apical] Respiratory Rate 22 22 26 H Respiratory Effort / Characteristics Respiratory Depth Respiratory Pattern Blood Pressure 166/88 H Blood Pressure [Right Arm] Blood Pressure Mean 114 Blood Pressure Mean [Right Arm] Blood Pressure Position [Right Arm] Pulse Oximetry 98 98 94 Oxygen Delivery Method 02/18/19 15:00 02/18/19 15:01 02/18/19 15:11 Temperature Temperature Source Sepsis Recent Fever Within 48 Hours Sepsis New/Unexplained Change in Mental Status Sepsis Action Taken by Nursing Pulse Rate Pulse Rate [Apical] 75 Pulse Rate from SpO2 Sensor 74 74 Pulse Rhythm [Apical] Regular Pulse Strength [Apical] Normal Respiratory Rate 34 H 15 20 Respiratory Effort / Characteristics Non-Labored Spontaneous Respiratory Depth Normal Respiratory Pattern Regular Blood Pressure 171/110 H Blood Pressure [Right Arm] 171/110 H Blood Pressure Mean 130 Blood Pressure Mean [Right Arm] 130 Blood Pressure Position [Right Arm] Lying Pulse Oximetry 96 97 98 Oxygen Delivery Method Room Air 02/18/19 15:15 02/18/19 15:20 02/18/19 15:34 Temperature Temperature Source Sepsis Recent Fever Within 48 Hours Sepsis New/Unexplained Change in Mental Status Sepsis Action Taken by Nursing Pulse Rate 76 Pulse Rate [Apical] 77 Pulse Rate from SpO2 Sensor 79 Pulse Rhythm [Apical] Regular Pulse Strength [Apical] Normal Respiratory Rate 16 18 13 Respiratory Effort / Characteristics Non-Labored Spontaneous Respiratory Depth Normal Respiratory Pattern Regular Blood Pressure Blood Pressure [Right Arm] 168/96 H Blood Pressure Mean Blood Pressure Mean [Right Arm] 120 Blood Pressure Position [Right Arm] Lying Pulse Oximetry 98 98 Oxygen Delivery Method Room Air 02/18/19 15:35 02/18/19 15:36 02/18/19 15:45 Temperature Temperature Source Sepsis Recent Fever Within 48 Hours Sepsis New/Unexplained Change in Mental Status Sepsis Action Taken by Nursing Pulse Rate 75 77 Pulse Rate [Apical] 74 Pulse Rate from SpO2 Sensor 75 77 Pulse Rhythm [Apical] Regular Pulse Strength [Apical] Normal Respiratory Rate 18 15 18 Respiratory Effort / Characteristics Non-Labored Spontaneous Respiratory Depth Normal Respiratory Pattern Regular Blood Pressure 168/96 H Blood Pressure [Right Arm] 168/96 H Blood Pressure Mean 120 Blood Pressure Mean [Right Arm] 120 Blood Pressure Position [Right Arm] Lying Pulse Oximetry 97 98 98 Oxygen Delivery Method Room Air 02/18/19 15:48 02/18/19 15:50 02/18/19 15:56 Temperature Temperature Source Sepsis Recent Fever Within 48 Hours Sepsis New/Unexplained Change in Mental Status Sepsis Action Taken by Nursing Pulse Rate 77 75 Pulse Rate [Apical] 77 Pulse Rate from SpO2 Sensor 77 74 Pulse Rhythm [Apical] Regular Pulse Strength [Apical] Normal Respiratory Rate 20 18 17 Respiratory Effort / Characteristics Non-Labored Spontaneous Respiratory Depth Normal Respiratory Pattern Regular Blood Pressure 172/84 H 166/72 H Blood Pressure [Right Arm] 172/84 H Blood Pressure Mean 113 103 Blood Pressure Mean [Right Arm] 113 Blood Pressure Position [Right Arm] Lying Pulse Oximetry 97 96 96 Oxygen Delivery Method Room Air 02/18/19 15:57 02/18/19 16:00 02/18/19 16:01 Temperature Temperature Source Sepsis Recent Fever Within 48 Hours Sepsis New/Unexplained Change in Mental Status Sepsis Action Taken by Nursing Pulse Rate 74 75 74 Pulse Rate [Apical] Pulse Rate from SpO2 Sensor 74 76 74 Pulse Rhythm [Apical] Pulse Strength [Apical] Respiratory Rate 22 18 20 Respiratory Effort / Characteristics Respiratory Depth Respiratory Pattern Blood Pressure 166/77 H Blood Pressure [Right Arm] Blood Pressure Mean 106 Blood Pressure Mean [Right Arm] Blood Pressure Position [Right Arm] Pulse Oximetry 97 97 97 Oxygen Delivery Method 02/18/19 16:05 02/18/19 16:15 02/18/19 16:16 Temperature Temperature Source Sepsis Recent Fever Within 48 Hours Sepsis New/Unexplained Change in Mental Status Sepsis Action Taken by Nursing Pulse Rate 78 78 Pulse Rate [Apical] 74 Pulse Rate from SpO2 Sensor 78 79 Pulse Rhythm [Apical] Regular Pulse Strength [Apical] Normal Respiratory Rate 17 13 20 Respiratory Effort / Characteristics Non-Labored Spontaneous Respiratory Depth Normal Respiratory Pattern Regular Blood Pressure 177/87 H Blood Pressure [Right Arm] 166/77 H Blood Pressure Mean 117 Blood Pressure Mean [Right Arm] 106 Blood Pressure Position [Right Arm] Lying Pulse Oximetry 97 97 97 Oxygen Delivery Method Room Air 02/18/19 16:20 02/18/19 16:30 02/18/19 16:31 Temperature Temperature Source Sepsis Recent Fever Within 48 Hours Sepsis New/Unexplained Change in Mental Status Sepsis Action Taken by Nursing Pulse Rate 75 75 Pulse Rate [Apical] 77 Pulse Rate from SpO2 Sensor 75 75 Pulse Rhythm [Apical] Regular Pulse Strength [Apical] Normal Respiratory Rate 19 18 20 Respiratory Effort / Characteristics Non-Labored Spontaneous Respiratory Depth Normal Respiratory Pattern Regular Blood Pressure 161/101 H Blood Pressure [Right Arm] 161/101 H Blood Pressure Mean 121 Blood Pressure Mean [Right Arm] 121 Blood Pressure Position [Right Arm] Lying Pulse Oximetry 97 97 97 Oxygen Delivery Method Room Air 02/18/19 16:35 02/18/19 16:37 02/18/19 16:45 Temperature Temperature Source Sepsis Recent Fever Within 48 Hours Sepsis New/Unexplained Change in Mental Status Sepsis Action Taken by Nursing Pulse Rate 78 74 Pulse Rate [Apical] 76 Pulse Rate from SpO2 Sensor 77 74 Pulse Rhythm [Apical] Regular Pulse Strength [Apical] Normal Respiratory Rate 16 18 24 Respiratory Effort / Characteristics Non-Labored Spontaneous Respiratory Depth Normal Respiratory Pattern Regular Blood Pressure 148/101 H Blood Pressure [Right Arm] 148/101 H Blood Pressure Mean 116 Blood Pressure Mean [Right Arm] 116 Blood Pressure Position [Right Arm] Lying Pulse Oximetry 97 97 97 Oxygen Delivery Method Room Air 02/18/19 16:46 02/18/19 16:47 02/18/19 17:00 Temperature Temperature Source Sepsis Recent Fever Within 48 Hours Sepsis New/Unexplained Change in Mental Status Sepsis Action Taken by Nursing Pulse Rate 75 75 75 Pulse Rate [Apical] Pulse Rate from SpO2 Sensor 75 75 75 Pulse Rhythm [Apical] Pulse Strength [Apical] Respiratory Rate 19 17 25 H Respiratory Effort / Characteristics Respiratory Depth Respiratory Pattern Blood Pressure 165/74 H Blood Pressure [Right Arm] Blood Pressure Mean 104 Blood Pressure Mean [Right Arm] Blood Pressure Position [Right Arm] Pulse Oximetry 96 96 97 Oxygen Delivery Method 02/18/19 17:01 02/18/19 18:25 02/18/19 18:30 Temperature Temperature Source Sepsis Recent Fever Within 48 Hours Sepsis New/Unexplained Change in Mental Status Sepsis Action Taken by Nursing Pulse Rate 71 70 Pulse Rate [Apical] Pulse Rate from SpO2 Sensor 71 70 Pulse Rhythm [Apical] Pulse Strength [Apical] Respiratory Rate 21 16 Respiratory Effort / Characteristics Respiratory Depth Respiratory Pattern Blood Pressure 145/93 H 154/101 H 173/75 H Blood Pressure [Right Arm] Blood Pressure Mean 110 118 107 Blood Pressure Mean [Right Arm] Blood Pressure Position [Right Arm] Pulse Oximetry 96 95 Oxygen Delivery Method 02/18/19 19:00 02/18/19 19:30 02/18/19 20:57 Temperature 36.7 C Temperature Source Oral Sepsis Recent Fever Within 48 Hours Sepsis New/Unexplained Change in Mental Status Sepsis Action Taken by Nursing Pulse Rate 72 72 Pulse Rate [Apical] 74 Pulse Rate from SpO2 Sensor 72 72 Pulse Rhythm [Apical] Regular Pulse Strength [Apical] Normal Respiratory Rate 18 17 21 Respiratory Effort / Characteristics Non-Labored Spontaneous Respiratory Depth Normal Respiratory Pattern Regular Blood Pressure 164/80 H 160/78 H Blood Pressure [Right Arm] 166/69 H Blood Pressure Mean 108 105 Blood Pressure Mean [Right Arm] 101 Blood Pressure Position [Right Arm] Lying Pulse Oximetry 95 95 98 Oxygen Delivery Method Room Air General: Chronically ill appearing older female in no acute distress, complainin g of weakness in both legs. HEENT: Normal cephalic atraumatic. Pupils are equal round and reactive to light. Extraocular movements are intact. Oropharynx is pink with moist mucous membranes. No swelling of the mouth lips or tongue. Neck: Supple with a midline trachea. No meningeal signs or stiffness, no JVD or bruits. No Stridor. Chest: Clear to auscultation bilaterally. No wheezes or rhonchi. No increased work of breathing. Port is accessed on right. Chest is tender with palpation. Heart: regular rate and rhythm. Abdomen: Soft nontender, nondistended without rebound guarding or rigidity. Extremities: No cyanosis clubbing or edema. No calf tenderness or assymetry. Pain and weakness with trying to move right leg which she states is new. Spine/Back. Non tender to palpation. No CVA tenderness Skin: Good turgor without rashes. Neurologic exam: Cranial nerves two through 12 are intact. Motor and sensation are intact and symmetrical throughout. Course 1510: Past medical records reviewed. The patient was evaluated in room A1, and a complete history and physical examination were performed. 1600: I discussed the patient's case with Dr. Wong - Neurology, [facility]. 1645: I reevaluated and updated the patient. Dr. Wong is at bedside. 1645: I discussed the patient's case with Dr. Wong. He does not feel as though the patient is a TPA candidate. 1655: Upon reevaluation, the patient is stable. I discussed the results and treatment plan with the patient. She verbalizes understanding and agreement. I discussed the patient's case with Cyndy Diallo PA-C, working with [facility]. The patient will be evaluated for further management and care. 1735: I reevaluated and updated the patient. She is having pain in her head and legs. She has been taking Tylenol at home with no relief of her pain. Consultations Consultation #1: I discussed the patient's case with Dr. Wong - Neurology, [facility]. 1645: I discussed the patient's case with Dr. Wong. He does not feel as though the patient is a TPA candidate. Time: 16:00 Consultation #2: I reviewed the patient's case with Cyndy Diallo PA-C, working with Dr. Duque, Hospitalist, [place]. She will evaluate the patient for further management. Time: 16:55 Administered Medications Lipase/Protease/Amylase (Pancreaze (Lipase 4200u)) 1 cap PO ACHS JOHN Stop: 03/20/19 21:14 Last Admin: 02/18/19 23:04 Dose: 1 cap Documented by: [id number] Aspirin (Ecotrin Ectab) 81 mg PO QPM JOHN Stop: 03/20/19 20:59 Last Admin: 02/18/19 23:04 Dose: 81 mg Documented by: [id number] Gabapentin (Neurontin) 800 mg PO HS JOHN Stop: 03/20/19 20:59 Last Admin: 02/18/19 23:03 Dose: 800 mg Documented by: [id number] Heparin Sodium (Porcine) (Heparin Sodium (Porcine)) 5,000 units SQ Q8 JOHN Stop: 03/20/19 21:59 Last Admin: 02/18/19 23:04 Dose: 5,000 units Documented by: [id number] Cosigned by: [id number] Insulin Human NPH (Novolin N Nph) [facility] Protocol Stop: 03/20/19 21:29 Last Admin: 02/18/19 23:05 Dose: 30 units Documented by: [id number] Cosigned by: [id number] Metoprolol Tartrate (Lopressor) 25 mg PO BID [facility] Stop: 03/20/19 20:59 Last Admin: 02/18/19 23:04 Dose: 25 mg Documented by: [id number] Mirtazapine (Remeron) 45 mg PO [facility] Stop: 03/20/19 20:59 Last Admin: 02/18/19 23:04 Dose: 45 mg Documented by: [id number] Miscellaneous (Order Awaiting Action) 1 ea N/A QS [facility] Stop: 03/21/19 00:00 Last Admin: 02/18/19 23:10 Dose: Not Given Documented by: [id number] Ranitidine HCl (Zantac) 75 mg PO BID [facility] Stop: 03/20/19 20:59 Last Admin: 02/18/19 23:04 Dose: 75 mg Documented by: [id number] Ropinirole HCl (Requip) 1 mg PO [facility] Stop: 03/20/19 20:59 Last Admin: 02/18/19 23:04 Dose: 1 mg Documented by: [id number] Trazodone HCl (Desyrel) 50 mg PO [facility] Stop: 03/20/19 20:59 Last Admin: 02/18/19 23:04 Dose: 50 mg Documented by: [id number] Discontinued Medications Acetaminophen (Tylenol) 650 mg PO NOW STA Stop: 02/18/19 17:36 Last Admin: 02/18/19 17:53 Dose: 650 mg Documented by: [id number] Insulin Human Regular (Novolin R U-100 Per Unit) 5 units IV NOW STA Stop: 02/18/19 16:45 Last Admin: 02/18/19 16:54 Dose: 5 units Documented by: [id number] Cosigned by: [id number] Medical Decision Making Differential Diagnosis Differential diagnoses include: stroke, TIA, hyperglycemia, infection, and electrolyte/metabolic abnormalitites. Medical Records Attestation: I reviewed the patient's medical records. Home Medications Current Medication List: was personally reviewed by me Laboratory Data Attestation: I reviewed the patient's lab results. Result diagrams: 02/18/19 15:11 02/18/19 15:11 Lab Results 02/18/19 02/18/19 02/18/19 Range/Units 15:11 15:11 15:11 WBC 10.81 H (4.8-10.8) K/uL RBC 3.71 L (4.2-5.4) M/uL Hgb 11.6 L (12.0-16.0) g/dL Hct 32.8 L (37-47) % MCV 88.4 (80-100) fL MCH 31.3 (25-34) pg MCHC 35.4 (32-36) g/dL RDW Std Deviation 43.8 (36.4-46.3) fL RDW Coeff of Stormy 13.5 (11.5-14.5) % Plt Count 200 (130-400) K/uL MPV 9.4 (7.4-10.4) fL Immature Gran % (Auto) 0.4 % Neut % (Auto) 58.7 % Lymph % (Auto) 28.2 % [place] % (Auto) 4.2 % Eos % (Auto) 7.8 % Baso % (Auto) 0.7 % Immature Gran # (Auto) 0.04 H (0.00-0.02) K/uL Neut # (Auto) 6.35 (1.4-6.5) K/uL Lymph # (Auto) 3.05 (1.2-3.4) K/uL [place] # (Auto) 0.45 (0.11-0.59) K/uL Eos # (Auto) 0.84 H (0-0.5) K/uL Baso # (Auto) 0.08 (0-0.2) K/uL PT 10.6 (9.0-12.0) Seconds INR 1.0 (0.9-1.1) APTT 22.2 (21.0-31.0) Seconds PTT Ratio 0.8 Sodium 137 (136-145) mmol/L Potassium 4.9 (3.5-5.1) mmol/L Chloride 109 H (98-107) mmol/L Carbon Dioxide 23 (21-32) mmol/L Anion Gap 5.0 (3-11) BUN 25 H (7-18) mg/dl Creatinine 1.49 H (0.6-1.2) mg/dl Est Cr Clr Drug Dosing 27.7 ml/min Est GFR ( Amer) 38.6 Est GFR (Non-Af Amer) 33.3 BUN/Creatinine Ratio 17.1 (10-20) Glucose 430 H* (70-99) mg/dl POC Glucose (70-99) Calcium 8.6 (8.5-10.1) mg/dl Magnesium 2.1 (1.8-2.4) mg/dl Total Bilirubin 0.2 (0.2-1) mg/dl AST 22 (15-37) U/L ALT 26 (12-78) U/L Alkaline Phosphatase 103 (45-117) U/L Troponin I < 0.015 (0-0.045) ng/ml Total Protein 7.1 (6.4-8.2) gm/dl Albumin 3.3 L (3.4-5.0) gm/dl Globulin 3.8 (2.5-4.0) gm/dl Albumin/Globulin Ratio 0.9 (0.9-2) Beta-Hydroxybutyric Acd 1.57 (0.2-2.81) mg/dl Blood Type Antibody Screen 02/18/19 02/18/19 02/18/19 Range/Units 15:36 15:40 18:10 WBC (4.8-10.8) K/uL RBC (4.2-5.4) M/uL Hgb (12.0-16.0) g/dL Hct (37-47) % MCV (80-100) fL MCH (25-34) pg MCHC (32-36) g/dL RDW Std Deviation (36.4-46.3) fL RDW Coeff of Stormy (11.5-14.5) % Plt Count (130-400) K/uL MPV (7.4-10.4) fL Immature Gran % (Auto) % Neut % (Auto) % Lymph % (Auto) % [place] % (Auto) % Eos % (Auto) % Baso % (Auto) % Immature Gran # (Auto) (0.00-0.02) K/uL Neut # (Auto) (1.4-6.5) K/uL Lymph # (Auto) (1.2-3.4) K/uL [place] # (Auto) (0.11-0.59) K/uL Eos # (Auto) (0-0.5) K/uL Baso # (Auto) (0-0.2) K/uL PT (9.0-12.0) Seconds INR (0.9-1.1) APTT (21.0-31.0) Seconds PTT Ratio Sodium (136-145) mmol/L Potassium (3.5-5.1) mmol/L Chloride (98-107) mmol/L Carbon Dioxide (21-32) mmol/L Anion Gap (3-11) BUN (7-18) mg/dl Creatinine (0.6-1.2) mg/dl Est Cr Clr Drug Dosing ml/min Est GFR ( Amer) Est GFR (Non-Af Amer) BUN/Creatinine Ratio (10-20) Glucose (70-99) mg/dl POC Glucose 396 H* 270 H (70-99) Calcium (8.5-10.1) mg/dl Magnesium (1.8-2.4) mg/dl Total Bilirubin (0.2-1) mg/dl AST (15-37) U/L ALT (12-78) U/L Alkaline Phosphatase (45-117) U/L Troponin I (0-0.045) ng/ml Total Protein (6.4-8.2) gm/dl Albumin (3.4-5.0) gm/dl Globulin (2.5-4.0) gm/dl Albumin/Globulin Ratio (0.9-2) Beta-Hydroxybutyric Acd (0.2-2.81) mg/dl Blood Type O Positive Antibody Screen NEGATIVE 02/18/19 02/18/19 Range/Units 20:36 21:13 WBC (4.8-10.8) K/uL RBC (4.2-5.4) M/uL Hgb (12.0-16.0) g/dL Hct (37-47) % MCV (80-100) fL MCH (25-34) pg MCHC (32-36) g/dL RDW Std Deviation (36.4-46.3) fL RDW Coeff of Stormy (11.5-14.5) % Plt Count (130-400) K/uL MPV (7.4-10.4) fL Immature Gran % (Auto) % Neut % (Auto) % Lymph % (Auto) % [place] % (Auto) % Eos % (Auto) % Baso % (Auto) % Immature Gran # (Auto) (0.00-0.02) K/uL Neut # (Auto) (1.4-6.5) K/uL Lymph # (Auto) (1.2-3.4) K/uL [place] # (Auto) (0.11-0.59) K/uL Eos # (Auto) (0-0.5) K/uL Baso # (Auto) (0-0.2) K/uL PT (9.0-12.0) Seconds INR (0.9-1.1) APTT (21.0-31.0) Seconds PTT Ratio Sodium (136-145) mmol/L Potassium (3.5-5.1) mmol/L Chloride (98-107) mmol/L Carbon Dioxide (21-32) mmol/L Anion Gap (3-11) BUN (7-18) mg/dl Creatinine (0.6-1.2) mg/dl Est Cr Clr Drug Dosing ml/min Est GFR ( Amer) Est GFR (Non-Af Amer) BUN/Creatinine Ratio (10-20) Glucose (70-99) mg/dl POC Glucose 222 H (70-99) Calcium (8.5-10.1) mg/dl Magnesium (1.8-2.4) mg/dl Total Bilirubin (0.2-1) mg/dl AST (15-37) U/L ALT (12-78) U/L Alkaline Phosphatase (45-117) U/L Troponin I < 0.015 (0-0.045) ng/ml Total Protein (6.4-8.2) gm/dl Albumin (3.4-5.0) gm/dl Globulin (2.5-4.0) gm/dl Albumin/Globulin Ratio (0.9-2) Beta-Hydroxybutyric Acd (0.2-2.81) mg/dl Blood Type Antibody Screen Imaging Data Radiologist's Impression: Radiology results as stated below per my review and the radiologist's interpretation: CT OF THE HEAD WITHOUT CONTRAST FINDINGS: No acute intracranial hemorrhage, midline shift or mass effect is present. Ventricular system is normal. The basilar cisterns are patent. There are no extra-axial collections. White matter hypodensity suggests small vessel disease. There are no findings to suggest acute dural sinus thrombosis or acute territorial infarct. There are no significant calvarial abnormalities. There is moderate ethmoid and sinus mucosal thickening. IMPRESSION: No acute intracranial findings. Electronically signed by: Brijesh Jeter M.D. 02/18/2019 3:45 PM ECG Data Attestation: I personally reviewed and interpreted this ECG as follows: Indication: weakness Rate (beats per minute): 69 Rhythm: normal sinus Findings: no ST depression and no ST elevation Comparison ECG Date: from (01/30/2019) Change: the following changes noted (Compared to prior, LBBB has resolved.) Additional Comments: Poor R wave progression. EKG #2: Normal sinus, 75, no acute ischemia, no ectopy, poor R wave progression, no change compared to EKG #1. Blood Pressure Blood Pressure Findings: Elevated blood pressure Blood Pressure Disposition: further management by hospitalist MDM Narrative This patient comes in as described above. She was placed in room C2B. She comes in complaining of weakness in both of her legs. she has had a recent stroke. When I talked to the patient and her granddaughter that they were concerned about a second stroke. It is difficult as she has some baseline weakness in her left leg and now she thinks her right leg is more weak however there is a lot of pain involved with this as well. I did call a stroke alert due to her recent stroke. She is not a TPA candidate for multiple reasons including anticoagulation use and recent stroke. Dr. Grajeda did evaluate her and felt that she needed to be admitted for further inpatient treatment and evaluation but agreed that she did not need TPA. Her blood sugar was elevated at greater than 400 although she has no evidence of DKA she was hydrated and given IV insulin. She also had chest pain she had 2 EKGs here which were unremarkable she has intermittent left bundle branch block seen on the monitor troponin is not elevated. She remained stable she did receive some Tylenol for pain. I did consult the hospitalist to see her in the ER for further inpatient treatment and evaluation. Impression & Plan Weakness, Hyperglycemia, Leg pain, right, Chest pain, unspecified Critical Care Time I have personally spent greater than 30 minutes of critical care time in the direct management of this patient. This includes bedside care, interpretation of diagnostic studies, and testing, discussion with consultants, patient, and family members, and other required patient management activities. This 30 minutes is in excess of all separately billable procedures. Critical Care Time: Yes Total Critical Care Time: 30 Discharge Plan Visit Data *Final* Discharge Date/Time: 02/18/19 19:48 Chief Complaint: Leg Weakness, Bilateral Stated Complaint: chest pain ED Provider: Toño Correa Discharge Problem: Weakness, Hyperglycemia, Leg pain, right, Chest pain, unspecified Patient Disposition: Admitted As Inpatient Discharge Instructions Interventions: ED Discharge Assessment Last Done: 02/18/19 19:48 Discharge Problem: Chest pain, unspecified Qualifiers: Chest pain type: precordial pain Qualified Code(s): R07.2 - Precordial pain The scribe's documentation has been prepared under my direction and personally reviewed by me in its entirety. I confirm that the note above accurately reflect s all work, treatment, procedures, and medical decision making performed by me.
[2019-02-19] MEDS: ACETAMINOPHEN 325 MG TAB PO PRN (00:57)
[2019-02-19] MEDS ORDERED: HEPARIN 100 UNIT/ML 5ML FLUSH FLUSH PRN (01:11)
[2019-02-19] MEDS: HEPARIN SOD 5,000 UNIT/0.5 ML VIAL SQ SCH ×3 (06:28→22:40)
[2019-02-19 06:46] LABS: Estimated Average Glucose 212 mg/dl
[2019-02-19 06:59] LABS: Eosinophils # (auto) 1.06 K/uL (0-0.5); Eosinophils % (auto) 10.1 %; Hematocrit (blood only) 32.2 % (37-47); Hemoglobin 11.2 g/dL (12.0-16.0); Immature Granulocytes # (auto) 0.03 K/uL (0.00-0.02); Immature Granulocytes % (auto) 0.3 %; Lymphocytes # (auto) 3.81 K/uL (1.2-3.4); Lymphocytes % (auto) 36.3 %; Mean Corpuscular Hgb Conc 34.8 g/dL (32-36); Mean Corpuscular Volume 88.5 fL (80-100); Mean Platelet Volume 9.2 fL (7.4-10.4); Monocytes # (auto) 0.71 K/uL (0.11-0.59); Monocytes % (auto) 6.8 %; Neutrophils # (auto) 4.79 K/uL (1.4-6.5); Neutrophils % (auto) 45.5 %; Platelet Count 185 K/uL (130-400); RDW Coefficient of Variation 13.5 % (11.5-14.5); RDW Standard Deviation 43.7 fL (36.4-46.3); Red Blood Count 3.64 M/uL (4.2-5.4)
[2019-02-19 07:30] LABS: BUN Creatinine Ratio 19.3 (10-20); Calcium 8.6 mg/dl (8.5-10.1); Creatinine Clr Calc Pharmacy 31.1 ml/min; Est GFR (African American) 45.5; Est GFR (Non-African American) 39.3
[2019-02-19 07:42] LABS: Beta-Hydroxybutyrate 1.03 mg/dl (0.2-2.81)
[2019-02-19] MEDS: INSULIN ASPART 100 UNITS/ML 3 ML PEN SC SCH ×4 (07:58→21:04)
[2019-02-19] MEDS: INSULIN HUMAN NPH SC SCH ×2 (07:58→17:25)
[2019-02-19] MEDS: CLOPIDOGREL BISULFATE 75 MG TAB PO SCH (07:59)
[2019-02-19] MEDS: MAGNESIUM OXIDE 400 MG TAB PO SCH (07:59)
[2019-02-19] MEDS: ISOSORBIDE MONO EXTENDED REL 30 MG TABCR PO SCH (07:59)
[2019-02-19] MEDS: ATORVASTATIN 40 MG TAB PO SCH (07:59)
[2019-02-19] MEDS: AMLODIPINE BESYLATE 5 MG TAB PO SCH (07:59)
[2019-02-19] MEDS: PANCREAZE (LIPASE 4,200U) CAP PO SCH ×4 (08:00→20:59)
[2019-02-19] MEDS: LOSARTAN POTASSIUM 50 MG TAB PO SCH (08:00)
[2019-02-19] MEDS: METOPROLOL TARTRATE 25 MG TAB PO SCH ×2 (08:00→20:58)
--- NOTE | 2019-02-19 10:49 | Communication Note ---
Date of Service: February 19, 2019 I have seen Mrs. Kaplan today, reviewed her chart, reviewed her imaging studies, discussed her case with Dr. Duque her attending her deficits involving the right leg and arm have virtually resolved overnight and have been replaced by a right arm pain syndrome which actually has been present for several weeks after her last discharge recorded with the patient tells me today. Nothing on the MRI to see forth and in fact the lacunar infarct will be saw 2 weeks ago to 3 weeks ago is now resolved or at least is not described by the radiologist. Angiog raphic studies remain unrevealing of any significant extracranial or intracranial stenoses. Exam reveals a positive Spurling sign on the right variable degrees of weakness of right C5 through C7 innervated muscles, no atrophy and a global reduction in subjective appreciation of all sensory modalities in the right arm. Right leg exam was normal with the exception of evidence for polyneuropathy manifested by absent ankle jerks. Full consultation has been dictated but will not be typed tolerated today. My recommendations are to continue the current dual antiplatelet regimen as we really have no clear clinical or radiographic evidence that this woman is either a TIA or a new vascular event. I am suggesting we do an MRI of the cervical spine with contrast if possible based on her renal function just to be certain it is not a significant laterally placed disc on the right that may be causing some nerve root compromise and perhaps some lateral compression of the spinal cord at that level I will be back to visit Angelica tomorrow. Yonas duran in the
[2019-02-19] MEDS: TRAMADOL HCL 50 MG TABLET PO PRN ×2 (11:03→21:26)
--- NOTE | 2019-02-19 12:27 | Consultation Report ---
DATE OF CONSULTATION: 02/19/2019 CONSULTATION FOR: Adam Duque MD. HISTORY OF PRESENT ILLNESS: Angelica is 78 years old, is right handed, is well known to our service from a recent consultation and from multiple consultations done in this hospital over the years when she has presented with variable degrees of weakness and a vague history suggestive of TIAs. She was recently in the hospital and had a clearcut left frontal lacunar infarct on MRI with some weakness of the right leg and actually had had a stroke alert at that point, which was not felt to be necessary. She now presents again with right leg weakness, right arm weakness. Again was seen in the ER, a stroke alert did not meet criteria and she was admitted for followup and evaluation. She is now improved with more right leg function and complains now of the right arm and shoulder being painful and states in retrospect that this has been in this status since her discharge 2 weeks ago and relates a lot of burning dysesthetic pain involving the entirety of the arm and all the fingers of the right hand. She claims that the shoulder movement will induce this, but then also claims that the neck movement will do it. She denies any Lhermitte sign, denies any problems in the left lower extremity. PAST MEDICAL HISTORY: Reveals issues with hyperglycemia, hypertension, chest pain. MEDICATIONS: Her medication list at home includes Creon, various forms of insulin, albuterol, amlodipine, aspirin, Plavix, dicyclomine, docusate, gabapentin, lorazepam, magnesium oxide, Dulera, Zantac, Xyzal, losartan, mirtazapine, Requip, atorvastatin, Isordil, nitroglycerin, and metoprolol for other medical issues including hypertension, dyslipidemia and diabetes. ALLERGIES: SHE CLAIMS EXTENSIVE ALLERGIES TO IODINATED CONTRAST, SULFA, SIMVASTATIN, CODEINE, HYDROXYZINE, LATEX, BACTRIM, DIPHENHYDRAMINE, LORATADINE, SULFAMETHOXAZOLE/TRIMETHOPRIM, PREDNISONE, TETANUS TOXOID, ALPRAZOLAM, METFORMIN, MORPHINE AND SIMVASTATIN, but whether these are allergies or simply medication side effects remains unknown and UPON REVIEW OF THEM, VERY FEW OF THEM ARE ACTUALLY ASSOCIATED WITH HIVES OR RASHES. SOCIAL HISTORY: Reveals her to be single. She is a nonsmoker, nonconsumer of ethanol. She has a granddaughter, I think, who pays fairly close attention to her. PAST SURGICAL HISTORY: Surgically, she has had cataracts, ERCP, bilateral tubal ligations, colonoscopy and a cardiac catheterization, the latter being done recently prior to the onset of her apparent CVA/TIA. Significant past medical problems are outlined above, but a more detailed list includes recent stroke, multiple admissions for TIA-like events without documented abnormalities other than some leukoencephalopathy, she has had leukocytosis. She has had pneumonias. She has valvular heart disease. She has had a non-ST DC, left bundle branch block. There is a history of giant cell arteritis, now resolved. Gastroparesis, dyslipidemia, chronic depression, hypertension, insomnia, restless legs syndrome. Peripheral neuropathy, probably due to diabetes. Pancreatic cyst, anxiety, COPD, diabetes, sleep apnea, fatty liver, esophageal dysmotility, gastroparesis, pancreatic divisum, chronic renal disease stage III, history of pancreatitis, aortic stenosis, osteoarthritis and seasonal allergies. REVIEW OF SYSTEMS: Since last visit reveals now apparent chronic right arm and shoulder and perhaps neck pain and little or no other new issues referable to the head, eyes, ears, nose and throat, cardiovascular, pulmonary, gastrointestinal, genitourinary, musculoskeletal, dermatologic, hematologic, or endocrinologic systems other than those related to her chronic ongoing active medical problems. PHYSICAL EXAMINATION: VITAL SIGNS: On exam, blood pressure last night was 145/93, pulse was 75, oximetry revealed 97%, respirations were 25. GENERAL: She was a thin afebrile woman who appeared to be in no active distress. HEENT: She had a normal examination of the head, eyes, ears, nose and throat. NECK: Supple. No bruits were heard. LUNGS: Clear. HEART: Had a regular rhythm. ABDOMEN: Soft and nontender. EXTREMITIES: There was no significant peripheral edema. Pulses were good. NEUROLOGIC: Today, neurologically she is awake, alert, oriented in 3 spheres. Cranial nerves are intact. She is more clear mentally than when I last saw her, recognizes me from the past and seems to be a more reliant historian than she was 2 weeks ago. She does complain of shoulder pain, the arm pain and paresthesias. Spurling sign is equivocally positive inducing pain in the right arm, but shoulder movement does the same, so it is very difficult to be certain on this one. She can move her right leg against gravity, facility today is pretty good. According to Dr. Duque, the right leg was pretty paretic yesterday, but now it is almost back to what I consider her baseline. Reflexes are absent at the ankles due to her neuropathy. Knee reflexes are hypoactive. Toes are downgoing. No Jayden signs are seen. Strength testing in the right arm is difficult because of pain. There may be some weakness in the triceps and extensor muscles of the forearm and flexor muscles of the forearm, but this is inconsistent. There is also some weakness at times in the biceps and there is certainly no atrophy, no fasciculations and no sensory loss. Cranial nerves are quite intact with normal eye movements, visual page, facial motility and strength, speech, etc. Imaging studies have shown no new infarction. Vascular imaging study showed no changes from the prior with less than 50% stenosis, I believe, on the left of the internal carotid. Laboratory studies are unremarkable. At this point, I am not sure what is going on with Angelica. She has had multiple episodes of similar type over the years that I have known her, but has been quiescent in terms of this type of a spell for several years now. She does complain about the right arm pain, which theoretically is new. She could have a cervical radiculopathy to explain the right arm and perhaps a lateral cervical myelopathy to expalin elements of the right leg, although the latter is a bit of a stretch anatomically. I did discuss her case with Dr. Duque and we are going to try to evaluate her for possible cervical radicular syndrome with an MRI with and without contrast if we can do it. This will be dependent on her renal function. I will check back with her tomorrow, but for now I cannot call this a TIA. There was quite a bit of arm pain associated with it, which would be atypical. We do not see any new infarction. The symptoms have resolved. I really do not have enough justification to increase her antiplatelet coverage at this point and I would continue her on baby aspirin and Plavix. WILLIAM
--- NOTE | 2019-02-19 12:32 | Magnetic Resonance Report ---
MRI OF THE CERVICAL SPINE WITHOUT CONTRAST CLINICAL HISTORY: Neck tenderness radiating to right arm. COMPARISON: MRI of the cervical spine May 06, 2015. TECHNIQUE: Utilizing a 1.5 Violet magnet and dedicated coil, multiplanar, multiecho imaging of the ce rvical spine was performed without IV contrast. FINDINGS: There is mild rightward curvature of the cervical spine. Vertebral body heights are maintained. There is no suspicious marrow placement. Exam is mildly compromised by artifact but remains diagnostic. Ce rvical cord signal and caliber are normal. There is no intracanalicular mass or fluid collection. No significant abnormalities identified within visualized portions of the posterior fossa. Paravertebral soft tissues are unremarkable. C2-C3: The central canal and neural foramen are patent. C3-C4: The central canal and neural foramen are patent. C4-C5: The central canal and neural foramen are patent. C5-C6: Central/right paracentral disc osteophyte complex indents the ventral aspect of the cord. The re is mild to moderate narrowing of the central canal. This is unchanged as MRI April 26, 2015. Severe bilateral neural foraminal stenosis has slightly increased since prior exam C6-C7: The central canal and neural foramen are patent. C7-T1: The central canal and neural foramen are patent. IMPRESSION: 1. 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 This is similar to prior MRI of May 06, 2015. Severe bilateral neural foraminal stenosis at this level which has mildly increased. 2. Normal cervical cord signal and caliber. Electronically signed by: Brijesh Jeter M.D. 02/19/2019 12:31 PM
--- NOTE | 2019-02-19 18:14 | Hospitalist Progress Note ---
Date of Service February 19, 2019 Assessment & Plan (1) Stroke-like symptoms: Present on admission with weakness and numbness in extremities Recent Lacunar infarct on [address] head on admission showed no acute intracranial finding Stroke alert called and did not meet criteria for TPA MRI and MRA head showed no acute intracranial finding Carotid doppler showed Continue plavix and aspirin Will get MRA and MRI brain Carotid doppler showed moderate calcified plaque formation about the bilateral carotid bulbs correlates with elevated peak systolic velocities corresponding to 50-69% stenosis bilaterally. Neuro on board recommended to continue current therapy Speech and PT/OT on board Not safe to return home as per OT Monitor in tele Atypical Chest pain Reproducible on exam Troponinx2 negative EKG showed no significant change compare to previous one Continue plavix, aspirin, statin and metoprolol Ambulatory dysfunction Continue PT/OT Not safe to return home Consider inpatient rehab Pt will agree to go to rehab if her insurance will approve for it Fall precaution Hyperglycemia DM type 2 BS on admission 430 Hba1c 9 pharmacy on board for glycemic managment continue insulin Monitor BS Right arm/shoulder pain MRI cervical showed Central/right paracentral disc osteophyte complex at C5-C6 that indents the ventral aspect of the cord and results in mild to moderate narrowing of the central canal. This is similar to prior MRI of May 06, 2015. Severe bilateral neural foraminal stenosis at this level which has mildly increased. Tylenol does not provide any relief Continue tramadol prn HTN BP stabe Continue BP meds Monitor BP DVT px on heparin subq CODE STATUS FULL No Mech Ventillation Disposition Consider inpatient rehab Subjective Pt was seen and examined sitting in chair with no distress Pt said that she feels back to her baseline She moves her lower extremities with no discomfort She said that the tramadol helped for the right shoulder/arm tenderness She does have chest wall tenderness with palpation She said that she would consider inpatient placement if her insurance will cover it for her Denies any palpitation, dizziness and fever and SOB Physical Exam Vital Signs (Past 24 Hours): Last Vital Signs Temp 36.5 C 02/19/19 15:22 Pulse 66 02/19/19 15:57 Resp 18 02/19/19 15:22 BP 118/72 02/19/19 15:22 Pulse Ox 98 02/19/19 15:22 Physical Exam: Gen-AAO x 3, NAD, Afebrile, Obese Head-NCAT, EOMI, PERRLA, Anicteric Sclera, No Posterior Pharyngeal Erythema Neck-Supple, No JVD, No Thyromegaly, No Masses, No LAD, No Bruits Lungs-Clear to Auscultation Bilaterally, No Rales, No Rhonchi, No Wheezing, No Crepitus Chest-No S4, +S1, +S2, No S3, No Murmurs, No Rubs, No Gallops, No Ectopy, CP reproducible on Palpation Abdomen-Soft, Obese, Bowel Sounds Present, Non Tender, Non Distended, No Hepatomegaly, No Splenomegaly, No Palpable Masses, No Rebound, No Rigidity, No Guarding Musculoskeletal-Full Range of Motion Bilaterally, No CVAT Extremities-No Cyanosis, No Clubbing, No Edema Nuero- EOMI, tongue midline, finger to nose intact, moved all 4 extremities, speech fluent Psych-Normal Mood
[2019-02-19] MEDS ORDERED: INSULIN ASPART 100 UNITS/ML 3 ML PEN SC SCH ×2 (20:15→21:00)
[2019-02-19] MEDS: MIRTAZAPINE TAB 15 MG TAB PO SCH (20:50)
[2019-02-19] MEDS: GABAPENTIN 400 MG CAP PO SCH (20:58)
[2019-02-19] MEDS: ASPIRIN 81 MG ECTAB PO SCH (20:58)
[2019-02-19] MEDS: ROPINIROLE HCL 1 MG TABLET PO SCH (20:59)
[2019-02-19] MEDS: TRAZODONE HCL 50 MG TAB PO SCH (20:59)
[2019-02-20] MEDS: HEPARIN SOD 5,000 UNIT/0.5 ML VIAL SQ SCH ×3 (06:08→21:18)
[2019-02-20 07:18] LABS: Basophils # (auto) 0.07 K/uL (0-0.2); Basophils % (auto) 0.6 %; Eosinophils # (auto) 1.39 K/uL (0-0.5); Eosinophils % (auto) 11.5 %; Hematocrit (blood only) 31.3 % (37-47); Hemoglobin 10.8 g/dL (12.0-16.0); Immature Granulocytes # (auto) 0.03 K/uL (0.00-0.02); Immature Granulocytes % (auto) 0.2 %; Lymphocytes # (auto) 4.43 K/uL (1.2-3.4); Lymphocytes % (auto) 36.5 %; Mean Corpuscular Hgb Conc 34.5 g/dL (32-36); Mean Corpuscular Volume 89.2 fL (80-100); Mean Platelet Volume 9.6 fL (7.4-10.4); Monocytes # (auto) 0.92 K/uL (0.11-0.59); Monocytes % (auto) 7.6 %; Neutrophils # (auto) 5.29 K/uL (1.4-6.5); Neutrophils % (auto) 43.6 %; Platelet Count 191 K/uL (130-400); RDW Coefficient of Variation 13.9 % (11.5-14.5); RDW Standard Deviation 45.1 fL (36.4-46.3); Red Blood Count 3.51 M/uL (4.2-5.4); White Blood Count 12.13 K/uL (4.8-10.8)
[2019-02-20 07:41] LABS: BUN Creatinine Ratio 19.9 (10-20); Calcium 8.8 mg/dl (8.5-10.1); Est GFR (African American) 38.3; Potassium 4.6 mmol/L (3.5-5.1)
[2019-02-20] MEDS: MAGNESIUM OXIDE 400 MG TAB PO SCH (07:55)
[2019-02-20] MEDS: PANCREAZE (LIPASE 4,200U) CAP PO SCH ×4 (07:55→21:17)
[2019-02-20] MEDS: ISOSORBIDE MONO EXTENDED REL 30 MG TABCR PO SCH (07:57)
[2019-02-20] MEDS: AMLODIPINE BESYLATE 5 MG TAB PO SCH (07:57)
[2019-02-20] MEDS: LOSARTAN POTASSIUM 50 MG TAB PO SCH (07:57)
[2019-02-20] MEDS: CLOPIDOGREL BISULFATE 75 MG TAB PO SCH (07:57)
[2019-02-20] MEDS: ATORVASTATIN 40 MG TAB PO SCH (07:57)
[2019-02-20] MEDS: METOPROLOL TARTRATE 25 MG TAB PO SCH ×2 (07:58→21:19)
[2019-02-20] MEDS: INSULIN ASPART 100 UNITS/ML 3 ML PEN SC SCH ×4 (07:59→21:21)
[2019-02-20] MEDS: INSULIN HUMAN NPH SC SCH ×2 (08:00→17:01)
[2019-02-20] MEDS: TRAMADOL HCL 50 MG TABLET PO PRN ×2 (08:08→17:07)
--- NOTE | 2019-02-20 09:13 | Pharmacy Report ---
Pharmacy Glycemic Short Note 2 - Date of Service February 20, 2019 - Glycemic Short BSG Results (Last 24 hours): 02/19/19 02/19/19 02/19/19 12:11 16:06 20:22 Glucose POC Glucose 235 H 201 H 251 H 02/20/19 02/20/19 06:26 07:45 Glucose 151 H POC Glucose 154 H OUTPATIENT ANTIDIABETIC REGIMEN: * 70/30 85units BIDM, regular insulin 24 units BID ASSESSMENT: * Ms. Kaplan' hyperglycemia has resolved. This was likely 2/2 to a metabolic deficiency. It is unclear if she received any insulin prior to admission. FBS looks good this AM, 154mg/dL. PO intake seems consistent, nil dyspagia (admitted for stroke sx). Will continue with NPH + novolog. The use of 70/30 insulin is ill-advised for inpatient administration. PLAN FOR INPATIENT GLYCEMIC CONTROL: * Hold outpatient 70/30 * Basal insulin * NPH scale BIDM * BSGs <160mg/dL give 25 units * BSGs 160-200 give 30 units * BSGs >200mg/dL give 35 units * Bolus insulin * NovoLog per scale ACHS or Q6hrs while NPO * Goal Range: Low 120 mg/dL - High 160 mg/dL * Correction Factor: 20 mg/dL/unit * Nutritional / Prandial insulin per carb ratio of 1 unit per 7 grams CHO consumed
--- NOTE | 2019-02-20 09:58 | XRay Report ---
XR chest 1V portable HISTORY: 78 years-old Female wheezing acute shortness of breath with wheezing COMPARISON: Chest radiograph 01/30/2019 TECHNIQUE: Portable AP view of the chest FINDINGS: Cardiomediastinal and hilar silhouettes are unchanged. Lungs are mildly hypoinflated. Stable position ing of the right internal jugular [id number] catheter. Minimal left basilar opacities are suggesti ve of atelectasis, improved from comparison. Degenerative changes of the shoulders and spine. IMPRESSION: 1. No acute process. 2. Improved aeration of the left lung base from comparison. The above report was generated using voice recognition software. It may contain grammatical, syntax o r spelling errors. Electronically signed by: Rob Jaurez M.D. 02/20/2019 9:57 AM
[2019-02-20] MEDS ORDERED: methylPREDNISolone 40 MG in SYRINGE 0 ML IV STA (10:19)
[2019-02-20] MEDS: ALBUT/IPRATROP 3MG/0.5MG NEB 3 ML VIAL NEB PRN (10:31)
[2019-02-20] MEDS ORDERED: COUGH DROP (SUGAR FREE) LOZ 24 LOZ/1 BOX BUCCAL ONE (11:30)
--- NOTE | 2019-02-20 12:14 | Communication Note ---
Date of Service: February 20, 2019 I saw Angelica Solorio today reviewed her MRI images and report and noted her right leg is back to baseline but she still has significant right shoulder and arm pain. The MRI shows evidence for degenerative disc disease at C5-6 with increased foraminal encroachment compared to study of 2015 and there is some ventral compromise of the cord on the right side which has not changed and really is producing no significant cord edema or sufficient pressure to help reduce the right leg weakness Exam today is most consistent with a bicipital tendinitis with point tenderness over the bicipital groove and pain on abduction and aduction of the shoulder the variable degree of muscle weakness in C5 through C7 myotome distribution are noted yesterday is no longer evident Spurling sign which I thought was positive yesterday is negative today Suggestions are to compare that orthopedics be consulted for potential injection in the bicipital groove. Currently the patient has a dry nonproductive cough which is going to preclude discharge so she may well be in the hospital tomorrow for orthopedics to assess. Otherwise this would probably require an outpatient evaluation At this point I have no reason to make the diagnosis of recurrent TIA and would simply continue her dual antiplatelet therapy and follow-up plans with her primary care physician etc. as outlined after the last recent admission. Neurology is therefore going to sign off at this time unless things would change clinically which point we be happy to reassess Mrs. Yenifer Ferguson MD
[2019-02-20] MEDS: ACETAMINOPHEN 325 MG TAB PO PRN (13:18)
--- NOTE | 2019-02-20 17:57 | Hospitalist Progress Note ---
Date of Service February 20, 2019 Assessment & Plan (1) Stroke-like symptoms: Present on admission with weakness and numbness in extremities Recent Lacunar infarct on [address] head on admission showed no acute intracranial finding Stroke alert called and did not meet criteria for TPA MRI and MRA head showed no acute intracranial finding Carotid doppler showed Continue plavix and aspirin Will get MRA and MRI brain Carotid doppler showed moderate calcified plaque formation about the bilateral carotid bulbs correlates with elevated peak systolic velocities corresponding to 50-69% stenosis bilaterally. Neuro on board recommended to continue current therapy Speech and PT/OT on board Not safe to return home as per OT Monitor in tele Resolved Dyspnea Wheezing on exam CXR showed No acute process. Improved aeration of the left lung base from comparison. Procalcitonin negative Solumedrol 40mg IV x1 given Will start on prednisone daily Continue neb treatment Atypical Chest pain Reproducible on exam Troponinx2 negative EKG showed no significant change compare to previous one Continue plavix, aspirin, statin and metoprolol Stable Ambulatory dysfunction Continue PT/OT Not safe to return home Consider inpatient rehab Pt will agree to go to rehab if her insurance will approve for it Fall precaution Hyperglycemia DM type 2 BS on admission 430 Hba1c 9 pharmacy on board for glycemic managment continue insulin Monitor BS Right arm/shoulder pain MRI cervical showed 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 This is similar to prior MRI of May 06, 2015. Severe bilateral neural foraminal stenosis at this level which has mildly increased. Tylenol does not provide any relief Continue tramadol prn Will consult ortho for possible left shoulder injection HTN BP stabe Continue BP meds Monitor BP DVT px on heparin subq CODE STATUS FULL No Mech Ventillation Disposition Consider inpatient rehab Subjective Pt was seen and examined Sitting in chair with mild respiratory distress Pt has a hoarse voice She continues to ask to be discharged She had a few bit of Vtach in tele monitor Continue to have left shoulder/arm pain Denies any palpitation, chest pain and fever Physical Exam Vital Signs (Past 24 Hours): Last Vital Signs Temp 36.5 C 02/20/19 15:32 Pulse 72 02/20/19 15:32 Resp 18 02/20/19 15:32 BP 127/71 02/20/19 15:32 Pulse Ox 98 02/20/19 15:32 Physical Exam: Gen-AAO x 3, NAD, Afebrile, Obese Head-NCAT, EOMI, PERRLA, Anicteric Sclera, No Posterior Pharyngeal Erythema Neck-Supple, No JVD, No Thyromegaly, No Masses, No LAD, No Bruits Lungs- +wheezing Chest-No S4, +S1, +S2, No S3, No Murmurs, No Rubs, No Gallops, No Ectopy, CP reproducible on Palpation Abdomen-Soft, Obese, Bowel Sounds Present, Non Tender, Non Distended, No Hepatomegaly, No Splenomegaly, No Palpable Masses, No Rebound, No Rigidity, No Guarding Musculoskeletal-Full Range of Motion Bilaterally, No CVAT Extremities-No Cyanosis, No Clubbing, No Edema Nuero- EOMI, tongue midline, finger to nose intact, moved all 4 extremities, speech fluent Psych-Normal Mood
[2019-02-20] MEDS ORDERED: predniSONE 20 MG TAB PO ONE (21:00)
[2019-02-20] MEDS: ROPINIROLE HCL 1 MG TABLET PO SCH (21:16)
[2019-02-20] MEDS: ASPIRIN 81 MG ECTAB PO SCH (21:16)
[2019-02-20] MEDS: TRAZODONE HCL 50 MG TAB PO SCH (21:16)
[2019-02-20] MEDS: GABAPENTIN 400 MG CAP PO SCH (21:17)
[2019-02-20] MEDS: MIRTAZAPINE TAB 15 MG TAB PO SCH (21:17)
[2019-02-20] MEDS ORDERED: INSULIN HUMAN NPH SC SCH (21:45)
[2019-02-21] MEDS: INSULIN ASPART 100 UNITS/ML 3 ML PEN SC SCH ×7 (00:31→20:49)
[2019-02-21] MEDS: HEPARIN SOD 5,000 UNIT/0.5 ML VIAL SQ SCH ×3 (04:30→20:48)
[2019-02-21 06:36] LABS: Basophils # (auto) 0.02 K/uL (0-0.2); Basophils % (auto) 0.1 %; Eosinophils # (auto) 0.01 K/uL (0-0.5); Eosinophils % (auto) 0.1 %; Hematocrit (blood only) 31.5 % (37-47); Hemoglobin 10.8 g/dL (12.0-16.0); Immature Granulocytes # (auto) 0.08 K/uL (0.00-0.02); Immature Granulocytes % (auto) 0.5 %; Lymphocytes # (auto) 2.39 K/uL (1.2-3.4); Lymphocytes % (auto) 15.7 %; Mean Corpuscular Hgb Conc 34.3 g/dL (32-36); Mean Corpuscular Volume 88.5 fL (80-100); Mean Platelet Volume 9.4 fL (7.4-10.4); Monocytes # (auto) 0.41 K/uL (0.11-0.59); Monocytes % (auto) 2.7 %; Neutrophils # (auto) 12.32 K/uL (1.4-6.5); Neutrophils % (auto) 80.9 %; Platelet Count 193 K/uL (130-400); RDW Coefficient of Variation 13.4 % (11.5-14.5); RDW Standard Deviation 43.9 fL (36.4-46.3); Red Blood Count 3.56 M/uL (4.2-5.4); White Blood Count 15.23 K/uL (4.8-10.8)
[2019-02-21 07:06] LABS: BUN Creatinine Ratio 21.2 (10-20); Calcium 8.8 mg/dl (8.5-10.1); Creatinine Clr Calc Pharmacy 25.9 ml/min; Est GFR (African American) 35.9
[2019-02-21] MEDS ORDERED: INSULIN HUMAN NPH SC SCH ×2 (08:00→17:00)
[2019-02-21] MEDS: CLOPIDOGREL BISULFATE 75 MG TAB PO SCH (08:02)
[2019-02-21] MEDS: ISOSORBIDE MONO EXTENDED REL 30 MG TABCR PO SCH (08:02)
[2019-02-21] MEDS: AMLODIPINE BESYLATE 5 MG TAB PO SCH (08:02)
[2019-02-21] MEDS: METOPROLOL TARTRATE 25 MG TAB PO SCH ×2 (08:03→20:47)
[2019-02-21] MEDS: ATORVASTATIN 40 MG TAB PO SCH (08:03)
[2019-02-21] MEDS: predniSONE 20 MG TAB PO SCH (08:03)
[2019-02-21] MEDS: MAGNESIUM OXIDE 400 MG TAB PO SCH (08:04)
[2019-02-21] MEDS: PANCREAZE (LIPASE 4,200U) CAP PO SCH ×4 (08:10→20:47)
[2019-02-21] MEDS: TRAMADOL HCL 50 MG TABLET PO PRN (08:21)
--- NOTE | 2019-02-21 10:36 | Pharmacy Report ---
Pharmacy Glycemic Short Note 2 - Date of Service February 21, 2019 - Glycemic Short BSG Results (Last 24 hours): 02/20/19 02/20/19 02/20/19 11:06 16:04 20:01 Glucose POC Glucose 344 H 302 H 289 H 02/21/19 02/21/19 02/21/19 00:23 04:14 06:06 Glucose 242 H POC Glucose 218 H 242 H 02/21/19 07:21 Glucose POC Glucose 293 H OUTPATIENT ANTIDIABETIC REGIMEN: * / 85units BIDM * Regular insulin 24 units BID * A1c 9.4% 01/31/19 ASSESSMENT: 02/21 * Glycemic control deteriorated quickly upon the administration of steroids yesterday * Fasting BSG 293 this AM despite having 60 units NPH on board + Novolog 8 units given overnight * Will continue to up-titrate NPH doses * Post-prandial BSGs elevated consistently yesterday. Given her high daily insulin requirements without steroids, I believe there is room for much higher doses of Novolog today. 02/20 * Ms. Kaplan' hyperglycemia has resolved. This was likely 2/2 to a metabolic deficiency. It is unclear if she received any insulin prior to admission. FBS looks good this AM, 154mg/dL. PO intake seems consistent, nil dyspagia (admitted for stroke sx). Will continue with NPH + novolog. The use of 70/30 insulin is ill-advised for inpatient administration. PLAN FOR INPATIENT GLYCEMIC CONTROL: * Hold outpatient 70/30 * Basal insulin * NPH 50 units BID w/ meals * Bolus insulin * NovoLog per scale ACHS or Q6hrs while NPO * Goal Range: Low 120 mg/dL - High 160 mg/dL * Correction Factor: 10 mg/dL/unit * Nutritional / Prandial insulin per carb ratio of 1 unit per 4 grams CHO consumed with breakfast and dinner only (no lunchtime coverage due to NPH peak)
--- NOTE | 2019-02-21 10:55 | Consultation Report ---
DATE OF CONSULTATION: 02/21/2019 ORTHOPEDIC CONSULT CHIEF COMPLAINT: Right shoulder pain and upper extremity numbness. SUBJECTIVE: The patient is a 78-year-old female who per the patient recently had a heart attack and subsequently a stroke. Although per the chart, whether she truly had a CVA or not is in question. She is complaining of right shoulder and upper extremity numbness and an orthopedics consult was asked for. Currently, she is sitting in her chair. She is alert and oriented x3. She is a very good historian. She complains of diffuse pain in the shoulder region as well as tingling into the forearm region. She has reasonable active range of motion about her shoulder. She has reasonable strength against resistance while testing the rotator cuff. She has good strength in the biceps. Passively, she has discomfort with motion about the shoulder. She has some mild discomfort when taking her neck through an active range of motion. X-RAYS: No shoulder x-rays were present. She does have an MRI of the C-spine which shows central/right paracentral disc osteophyte complex at C5-C6 that indents the ventral aspect of cord and results in mild to moderate narrowing of the central canal. She also has severe bilateral neural foraminal stenosis at the same level. ASSESSMENT: Right shoulder pain and upper extremity numbness. PLAN: The above discussed with the patient. I told her this could be multifactorial. Certainly given the question of a recent CVA, the numbness/tingling in any extremity is more consistent with either a CVA or some type of cervical spine process. She may have some rotator cuff tendinitis going on as well. The patient states she is tentatively going to be discharged to [facility] today. Again, her primary complaint at this point is numbness/tingling in the forearm region. I do not think this is as a result of her shoulder issues. I think it would be reasonable to discharge her to [facility] when ready and we can certainly follow up as an outpatient in our office and consider further workup of her shoulder and/or cervical spine as indicated. The above was discussed with Dr. Lauren as well.
[2019-02-21] MEDS ORDERED: SODIUM CHLORIDE 0.9% 1000ML 1,000 ML IV SCH (11:15)
[2019-02-21] MEDS ORDERED: INSULIN ASPART 100 UNITS/ML 3 ML PEN SC SCH (11:30)
[2019-02-21] MEDS: ACETAMINOPHEN 325 MG TAB PO PRN (11:31)
[2019-02-21] MEDS ORDERED: INSULIN PROTOCOL GOAL RANGE ONE (12:13)
[2019-02-21] MEDS ORDERED: SEVERE STRESS LEVEL ONE (12:13)
[2019-02-21] MEDS ORDERED: INSULIN HUMAN NPH SC ONE (12:15)
[2019-02-21] MEDS ORDERED: INSULIN REGULAR 250 UNITS in SODIUM CHLORIDE 0.9% 247.5 ML IV SCH (12:15)
[2019-02-21] MEDS ORDERED: INSULIN HUMAN REGULAR IV BOLUS 2.5 UNITS in SYRINGE 0 ML IV SCH (12:15)
--- NOTE | 2019-02-21 15:20 | Communication Note ---
Date of Service: February 21, 2019 I saw Angelica today. Her cough is better but now her blood glucoses in the 400s so she is staying another day. She still complains about the right arm and s houlder pain still has some point tenderness over the bicipital groove and orthopedics has yet to see her in consultation. The right leg is back to her normal baseline and the right arm weakness is explainable on the basis of her pain with less than maximum volitional effort At this time neurology is going to sign off her case we will see her in the office as previously scheduled following her last recent admission for the small lacunar stroke Yonas Ferguson MD
[2019-02-21] MEDS: ALBUT/IPRATROP 3MG/0.5MG NEB 3 ML VIAL NEB PRN (15:53)
[2019-02-21] MEDS ORDERED: ALUMINUM/MAGNESIUM/SIMETH (MAALOX MAX) 30 ML UDC PO PRN (17:07)
--- NOTE | 2019-02-21 17:33 | XRay Report ---
SINGLE VIEW CHEST CLINICAL HISTORY: Dysphagia. FINDINGS: An AP, portable, upright chest radiograph is compared to study dated 02/20/2019. The examina tion is degraded by portable technique and apical lordotic positioning. A right internal jugular jacinta tral venous infusion port is unchanged in position. The heart is top normal for projection, and there is atherosclerotic calcification of the thoracic aorta. There are low lung volumes with bibasilar at electasis. No airspace consolidation or large pleural effusion is identified. No pneumothorax is seen . The skeletal structures are osteopenic. The bony thorax is grossly intact. Cholecystectomy clips ar e noted. No radiodense foreign body is identified. IMPRESSION: No acute cardiopulmonary abnormality. Electronically signed by: Ramez Blanchard M.D. 02/21/2019 5:32 PM
--- NOTE | 2019-02-21 19:16 | Hospitalist Progress Note ---
Date of Service February 21, 2019 Assessment & Plan (1) Stroke-like symptoms: Present on admission with weakness and numbness in extremities Recent Lacunar infarct on [address] head on admission showed no acute intracranial finding Stroke alert called and did not meet criteria for TPA MRI and MRA head showed no acute intracranial finding Carotid doppler showed Continue plavix and aspirin Will get MRA and MRI brain Carotid doppler showed moderate calcified plaque formation about the bilateral carotid bulbs correlates with elevated peak systolic velocities corresponding to 50-69% stenosis bilaterally. Neuro on board recommended to continue current therapy Speech and PT/OT on board Not safe to return home as per OT Monitor in tele Resolved MARIE on CKD 3 Creat increased to 1.58 Losartan on hold Received 1L IVF Avoid nephrotoxic agents Monitor BMP Hyperkalemia K 5.3 Will check BMP later Dyspnea Wheezing on exam CXR showed No acute process. Improved aeration of the left lung base from comparison. Procalcitonin negative Continue prednisone 40mg daily Continue neb treatment Dysphagia Choked on a piece of chicken during dinner Stat CXR showed no acute cardiopulmonary abnormality. 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 This is similar to prior MRI of May 06, 2015. Severe bilateral neural foraminal stenosis at this level which has mildly increased. Tylenol does not provide any relief Continue tramadol prn Ortho on board no steroid injection for now since this could be multifactorial Follow up with ortho as an outpatient if no improvement in symptoms HTN BP stabe Continue BP meds Monitor BP DVT px on heparin subq CODE STATUS FULL No Mech Ventillation Disposition Will tranfer to [facility] once stable Subjective Pt was seen and examined Sitting in bed with no distress Pt felt much better early today, her cough was better Until during dinner, she choked on a piece of chicken She said that she feels like the piece of the chicken stuck around his mid sternal area She was very anxious Her saturation was 99 % on 2 L NC Physical Exam Vital Signs (Past 24 Hours): Last Vital Signs Temp 36.3 C L 02/21/19 15:29 Pulse 72 02/21/19 15:56 Resp 18 02/21/19 15:56 BP 153/70 H 02/21/19 15:29 Pulse Ox 96 02/21/19 15:56 Physical Exam: Gen-AAO x 3, NAD, Afebrile, Obese Head-NCAT, EOMI, PERRLA, Anicteric Sclera, No Posterior Pharyngeal Erythema Neck-Supple, No JVD, No Thyromegaly, No Masses, No LAD, No Bruits Lungs- +wheezing Chest-No S4, +S1, +S2, No S3, No Murmurs, No Rubs, No Gallops, No Ectopy, CP reproducible on Palpation Abdomen-Soft, Obese, Bowel Sounds Present, Non Tender, Non Distended, No Hepatomegaly, No Splenomegaly, No Palpable Masses, No Rebound, No Rigidity, No Guarding Musculoskeletal-Full Range of Motion Bilaterally, No CVAT Extremities-No Cyanosis, No Clubbing, No Edema Nuero- EOMI, tongue midline, finger to nose intact, moved all 4 extremities
[2019-02-21 20:06] LABS: BUN Creatinine Ratio 22.3 (10-20); Calcium 8.7 mg/dl (8.5-10.1); Est GFR (African American) 32.9; Est GFR (Non-African American) 28.4; Potassium 4.7 mmol/L (3.5-5.1)
[2019-02-21] MEDS: ASPIRIN 81 MG ECTAB PO SCH (20:47)
[2019-02-21] MEDS: GABAPENTIN 400 MG CAP PO SCH (20:47)
[2019-02-21] MEDS: TRAZODONE HCL 50 MG TAB PO SCH (20:47)
[2019-02-21] MEDS: ROPINIROLE HCL 1 MG TABLET PO SCH (20:47)
[2019-02-21] MEDS: MIRTAZAPINE TAB 15 MG TAB PO SCH (20:47)
[2019-02-22] MEDS: SODIUM CHLORIDE 0.9% 1000ML 1,000 ML IV SCH ×2 (00:06→08:43)
[2019-02-22] MEDS ORDERED: INSULIN ASPART 100 UNITS/ML 3 ML PEN SC SCH ×4 (02:00→16:30)
[2019-02-22] MEDS: HEPARIN SOD 5,000 UNIT/0.5 ML VIAL SQ SCH (04:44)
[2019-02-22 06:33] LABS: BUN Creatinine Ratio 24.4 (10-20); Calcium 8.7 mg/dl (8.5-10.1); Creatinine Clr Calc Pharmacy 29.4 ml/min; Est GFR (African American) 41.6; Est GFR (Non-African American) 35.9; Potassium 4.5 mmol/L (3.5-5.1)
[2019-02-22] MEDS: predniSONE 20 MG TAB PO SCH (08:30)
[2019-02-22] MEDS: ATORVASTATIN 40 MG TAB PO SCH (08:30)
[2019-02-22] MEDS: ISOSORBIDE MONO EXTENDED REL 30 MG TABCR PO SCH (08:30)
[2019-02-22] MEDS: AMLODIPINE BESYLATE 5 MG TAB PO SCH (08:31)
[2019-02-22] MEDS: METOPROLOL TARTRATE 25 MG TAB PO SCH (08:31)
[2019-02-22] MEDS: PANCREAZE (LIPASE 4,200U) CAP PO SCH ×2 (08:32→12:30)
[2019-02-22] MEDS: CLOPIDOGREL BISULFATE 75 MG TAB PO SCH (08:35)
[2019-02-22] MEDS: INSULIN ASPART 100 UNITS/ML 3 ML PEN SC SCH (08:35)
[2019-02-22] MEDS: MAGNESIUM OXIDE 400 MG TAB PO SCH (09:01)
[2019-02-22] MEDS: TRAMADOL HCL 50 MG TABLET PO PRN (09:02)
[2019-02-22] MEDS ORDERED: PANTOprazole 40 MG TAB PO SCH (10:00)
[2019-02-22] MEDS ORDERED: LIDOCAINE 5% 1 PATCH TD SCH (10:15)
--- NOTE | 2019-02-22 10:47 | Pharmacy Report ---
Pharmacy Glycemic Short Note 2 - Date of Service February 22, 2019 - Glycemic Short BSG Results (Last 24 hours): 02/21/19 02/21/19 02/21/19 11:10 13:09 14:16 Glucose POC Glucose 404 H* 440 H* 353 H* 02/21/19 02/21/19 02/21/19 15:32 16:10 17:17 Glucose POC Glucose 346 H 312 H 267 H 02/21/19 02/21/19 02/21/19 18:36 19:33 19:40 Glucose 232 H POC Glucose 296 H 273 H 02/21/19 02/21/19 02/21/19 20:37 21:33 22:32 Glucose POC Glucose 219 H 215 H 154 H 02/21/19 02/22/19 02/22/19 23:57 00:16 00:30 Glucose POC Glucose 108 H 99 102 H 02/22/19 02/22/19 02/22/19 01:27 02:24 04:34 Glucose POC Glucose 113 H 112 H 121 H 02/22/19 02/22/19 05:12 07:09 Glucose 115 H POC Glucose 121 H OUTPATIENT ANTIDIABETIC REGIMEN: * 70/30 85units BIDM * Regular insulin 24 units BID * A1c 9.4% 01/31/19 The patient is currently receiving: * Basal insulin/Correctional Insulin: None, was receiving insulin drip * Prandial insulin: Per carb ratio calculated by insulin drip rate adjustment calculator ASSESSMENT: 02/22 * Insulin drip initiated mid-day yesterday for severe hyperglycemia (BSG 404) * Insulin drip titrated itself off overnight (has been on hold since ~ midnight per RN) and BSGs have remained in the 100-120 range until this AM * Patient will continue to receive Prednisone PO once daily. * Will resume basal/bolus SQ regimen today now that acute hyperglycemia controlled. New doses will be based upon out-pt regimen with a dose increase of approx 20% due to ongoing steroid administration. 02/21 * Glycemic control deteriorated quickly upon the administration of steroids yesterday * Fasting BSG 293 this AM despite having 60 units NPH on board + Novolog 8 units given overnight * Will continue to up-titrate NPH doses * Post-prandial BSGs elevated consistently yesterday. Given her high daily insulin requirements without steroids, I believe there is room for much higher doses of Novolog today. 02/20 * Ms. Kaplan' hyperglycemia has resolved. This was likely 2/2 to a metabolic deficiency. It is unclear if she received any insulin prior to admission. FBS looks good this AM, 154mg/dL. PO intake seems consistent, nil dyspagia (admitted for stroke sx). Will continue with NPH + novolog. The use of 70/30 insulin is ill-advised for inpatient administration. PLAN FOR INPATIENT GLYCEMIC CONTROL: * Hold outpatient 70/30 insulin * Basal insulin * NPH 65 units BID w/ meals * Bolus insulin * NovoLog per scale ACHS or Q6hrs while NPO * Goal Range: Low 120 mg/dL - High 160 mg/dL * Correction Factor: 10 mg/dL/unit * Nutritional / Prandial insulin per carb ratio of 1 unit per 3 grams CHO consumed * Reeval insulin doses with each step down in steroid dose * Add overnight BSG check to screen for hypo- / hyper-glcyemia (cover hyperglycemia w/ SQ Novolog)
[2019-02-22] MEDS: ALBUT/IPRATROP 3MG/0.5MG NEB 3 ML VIAL NEB PRN (11:08)
--- NOTE | 2019-02-22 12:59 | Hospitalist Progress Note ---
Date of Service February 22, 2019 Assessment & Plan (1) Stroke-like symptoms: Present on admission with weakness and numbness in extremities Recent Lacunar infarct on [address] head on admission showed no acute intracranial finding Stroke alert called and did not meet criteria for TPA MRI and MRA head showed no acute intracranial finding Carotid doppler showed moderate calcified plaque formation about the bilateral carotid bulbs correlates with elevated peak systolic velocities corresponding to 50-69% stenosis bilaterally. Neuro on board recommended to continue current therapy with plavix and aspirin Speech and PT/OT on board Not safe to return home as per OT Monitor in tele Resolved MARIE on CKD 3 Creat increased to 1.7 Received IVF then creatinine trending down to 1.4 Will resume losartan on discharge Avoid nephrotoxic agents Check BMP within 1 week Hyperkalemia K 4.5 today Losartan was held Check BMP within 1 week Resolved Dyspnea Wheezing on exam CXR showed No acute process. Improved aeration of the left lung base from comparison. Procalcitonin negative Prednisone decreased to 20mg daily Continue neb treatment Dysphagia Choked on a piece of chicken during dinner CXR showed no acute cardiopulmonary abnormality. Case discussed with speech recommended soft bite size diet and moist food Will need to avoid dry, thick, pasty and doughy food Aspiration precaution Atypical Chest pain Reproducible on exam Troponinx2 negative EKG showed no significant change compare to previous one Continue plavix, aspirin, statin and metoprolol Stable Ambulatory dysfunction Continue PT/OT Not safe to return home Fall precaution Will go to 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 This is similar to prior MRI of May 06, 2015. Severe bilateral neural foraminal stenosis at this level which has mildly increased. Tylenol does not provide any relief Continue tramadol prn Ortho on board no steroid injection for now since this could be multifactorial Follow up with ortho as an outpatient if no improvement in symptoms HTN BP stabe Continue BP meds Monitor BP DVT px on heparin subq CODE STATUS FULL No Mech Ventillation Disposition Will tranfer to [facility] today Subjective Pt was seen and examined Sitting in bed with no distress Pt said that she feels much better today She said that she does not have any breathing issues today She saturated well on RA She said that she tolerated her diet and no choking episodes She said that she only feels some indigestion Denies any chest pain, palpitation, dizziness and SOB Physical Exam Vital Signs (Past 24 Hours): Last Vital Signs Temp 36.6 C 02/22/19 12:33 Pulse 67 02/22/19 12:33 Resp 20 02/22/19 12:33 BP 134/66 02/22/19 12:33 Pulse Ox 97 02/22/19 12:33 Physical Exam: Gen-AAO x 3, NAD, Afebrile, Obese Head-NCAT, EOMI, PERRLA, Anicteric Sclera, No Posterior Pharyngeal Erythema Neck-Supple, No JVD, No Thyromegaly, No Masses, No LAD, No Bruits Lungs- +coarse BS Chest-No S4, +S1, +S2, No S3, No Murmurs, No Rubs, No Gallops, No Ectopy, CP reproducible on Palpation Abdomen-Soft, Obese, Bowel Sounds Present, Non Tender, Non Distended, No Hepatomegaly, No Splenomegaly, No Palpable Masses, No Rebound, No Rigidity, No Guarding Musculoskeletal-Full Range of Motion Bilaterally, No CVAT Extremities-No Cyanosis, No Clubbing, No Edema Nuero- EOMI, tongue midline, finger to nose intact, moved all 4 extremities
[2019-02-22] MEDS ORDERED: INSULIN HUMAN NPH SC SCH (17:00)
--- NOTE | 2019-02-22 18:36 | Discharge Summary ---
Date of Service February 22, 2019 Admission HPI Per Admitting Provider Chief Complaint: 78 y/o F with PMH asthma, COPD, anxiety, depression, HTN, HLD, DM II, CKD III, chronic pancreatitis s/p stent, h/o pancreatic cyst, fatty liver, sleep apnea, CVA, peripheral neuropathy, RLS, insomnia, was recently discharged on 02/02 after having a CVA presented to ER today with stroke like symptoms. Pt said that this morning she woke fine. She said that she took a shower and ate breakfast. She said that later she was getting ready to do laundry after putting the clothes in the laundry machine, she tried to grab the empty basket, but her arms felt numb and weak and she was not able to lift the basket. she said that she felt her legs were weak and wobbly and she quickly sat on the chair. She said that she tried to stand up, but was not able to because she could not feel her legs. She said that her speech was slurred. Pt also complaint of chest pain during the episode today. Her chest pain is reproducible on exam. Grand daughter felt that she might have accidentally taken her evening medication this morning instead of her morning medication. Pt said that currently her arms are back to normal, but she said that her right leg feels weak and numb. Stoke alert called but no TPA was given since she was not a candidate for TPA. BS on admission was 430. Admission Exam Per Admitting Provider Gen-AAO x 3, NAD, Afebrile, Obese Head-NCAT, EOMI, PERRLA, Anicteric Sclera, No Posterior Pharyngeal Erythema Neck-Supple, No JVD, No Thyromegaly, No Masses, No LAD, No Bruits Lungs-Clear to Auscultation Bilaterally, No Rales, No Rhonchi, No Wheezing, No Crepitus Chest-No S4, +S1, +S2, No S3, No Murmurs, No Rubs, No Gallops, No Ectopy, CP reproducible on Palpation Abdomen-Soft, Obese, Bowel Sounds Present, Non Tender, Non Distended, No Hepatomegaly, No Splenomegaly, No Palpable Masses, No Rebound, No Rigidity, No Guarding Musculoskeletal-Full Range of Motion Bilaterally, No CVAT Extremities-No Cyanosis, No Clubbing, No Edema Nuero- EOMI, tongue midline, finger to nose intact, decrease sensation in RLE, decrease motor strength in RLE Psych-Normal Mood Principal Diagnosis Stroke like symptoms Atypical Chest pain CVA DM Type 2 CAD MARIE on CKD 3 Dysphagia Hyperkalemia Discharge Exam Gen-AAO x 3, NAD, Afebrile, Obese Head-NCAT, EOMI, PERRLA, Anicteric Sclera, No Posterior Pharyngeal Erythema Neck-Supple, No JVD, No Thyromegaly, No Masses, No LAD, No Bruits Lungs- +coarse BS Chest-No S4, +S1, +S2, No S3, No Murmurs, No Rubs, No Gallops, No Ectopy, CP reproducible on Palpation Abdomen-Soft, Obese, Bowel Sounds Present, Non Tender, Non Distended, No Hepatomegaly, No Splenomegaly, No Palpable Masses, No Rebound, No Rigidity, No Guarding Musculoskeletal-Full Range of Motion Bilaterally, No CVAT Extremities-No Cyanosis, No Clubbing, No Edema Nuero- EOMI, tongue midline, finger to nose intact, moved all 4 extremities Discharge Data Allergies Allergy/AdvReac Type Severity Reaction Status Date / Time Iodinated Contrast- Oral and Allergy Severe RASH TO Verified 02/18/19 13:50 IV Dye IVP DYE,NAUSEA, FAINTING, COUGHING, GAGGING, HEADACH Sulfa (Sulfonamide Allergy Severe HIVES, Verified 02/18/19 13:50 Antibiotics) FACIAL AND ARM SWELLING cerivastatin Allergy Intermediate HIVES Verified 02/18/19 13:50 codeine Allergy Intermediate "PRICKLY Verified 02/18/19 13:50 RASH" hydroxyzine Allergy Intermediate N/V Verified 02/18/19 13:50 latex Allergy Intermediate DERMATITIS-PT Verified 02/18/19 13:50 TOLERATED A LATEX CATHETER 03/26/08 Bactrim Allergy Mild RASH Verified 04/29/18 14:40 diphenhydramine Allergy Mild RASH; Verified 02/18/19 13:50 SLEEPINESS WITH "PHARBEDRYL" loratadine Allergy Mild HIVES Verified 02/18/19 13:50 sulfamethoxazole Allergy Mild RASH Verified 02/18/19 13:50 trimethoprim Allergy Mild RASH Verified 02/18/19 13:50 prednisone Allergy Unknown elevates Verified 02/18/19 13:50 blood sugar tetanus toxoid, adsorbed AdvReac Intermediate SWELLING Verified 02/18/19 13:50 AT INJECTION SITE alprazolam AdvReac Unknown "SLEEPY Verified 02/18/19 13:50 STUPER" metformin AdvReac Unknown DIARRHEA Verified 02/18/19 13:50 morphine AdvReac Unknown VOMITING Verified 02/18/19 13:50 simvastatin AdvReac Unknown COUGH, Verified 02/18/19 13:50 "DISCOMFORT" Consultations 02/18/19 20:12 Consult Case Management - Discharge Planning Routine Consult Neurology Routine 02/21/19 07:00 Consult Orthopedic Surgery Routine 02/21/19 12:48 Consult Orthopedic Surgery Routine Ordered Studies 02/18/19 15:23 CT head/brain wo con Stat 02/18/19 20:12 MR angio head wo con Urgent MR brain wo con Routine US carotid doppler BI Routine 02/19/19 10:41 MR cervical spine wo con Routine CT OF THE HEAD WITHOUT CONTRAST CLINICAL HISTORY: Stroke evaluation COMPARISON STUDY: Head CT January 30, 2019 and MRI of the brain January 30, 2019. CT DOSE: 537.48 mGy.cm TECHNIQUE: Helical axial images of the head were obtained without IV contrast. Automated exposure control was utilized for the study. A dose lowering technique was utilized adhering to the principles of ALARA. FINDINGS: No acute intracranial hemorrhage, midline shift or mass effect is present. Ventricular system is normal. The basilar cisterns are patent. There are no extra-axial collections. White matter hypodensity suggests small vessel disease. There are no findings to suggest acute dural sinus thrombosis or acute territorial infarct. There are no significant calvarial abnormalities. There is moderate ethmoid and sinus mucosal thickening. IMPRESSION: No acute intracranial findings. Electronically signed by: Brijesh Jeter M.D. 02/18/2019 3:45 PM Dictated: 02/18/19 1542 Transcribed: 02/18/19 1542 MR brain wo con HISTORY: 78 years-old Female stroke like symptoms acute strokelike symptoms COMPARISON: CT head of same day, MRI brain in MRA head 01/31/2019 TECHNIQUE: Multiplanar multisequence MRI of the brain was obtained without the use of IV contrast. FINDINGS: [employer] localizer images demonstrate no gross abnormality. No restricted diffusion to suggest acute or subacute infarction. The midline structures including the corpus callosum, brainstem, optic chiasm, pituitary and pineal glands appear unremarkable on the sagittal T1 series. Degenerative changes noted about the imaged cervical spine. No acute intracranial hemorrhage, midline shift, abnormal extra-axial collections, hydrocephalus or intracranial mass. Age-related involutional changes with moderate T2/FLAIR hyperintensities about the white matter suggestive of chronic microvascular ischemic changes. Major flow voids appear patent. Moderate mucosal thickening of the paranasal sinuses. Soft tissues, scalp and orbits appear unremarkable. Prior bilateral cataract repair. IMPRESSION: 1. No acute intracranial abnormality identified, specifically no acute or subacute infarct. 2. Age-related involutional changes with moderate chronic microvascular ischemic changes. The above report was generated using voice recognition software. It may contain grammatical, syntax or spelling errors. Electronically signed by: Rob Juarez M.D. 02/18/2019 11:03 PM Dictated: 02/18/[id number] Transcribed: 02/18/192256 US carotid doppler BI CLINICAL HISTORY: 78 years-old Female with stroke like symptoms. Acutely altered mental status with strokelike symptoms COMPARISON: CT head of same day TECHNIQUE: Multiple real time sonographic images of the carotid bifurcations were obtained assessing dominguez scale, color Doppler and spectral wave form appearance FINDINGS: RIGHT CAROTID: The peak systolic velocity within the right ICA measured 135 cm/sec. The end diastolic velocity measured 34 cm/sec. The ICA to CCA ratio measured 1.9 which correlates with a stenosis of 50-69%. Peak systolic velocity within the right common carotid artery measures 72 cm/s. The end diastolic velocity measured 18 cm/s. Moderate degree of mostly calcified plaque is noted about the right carotid bulb and proximal right ICA. LEFT CAROTID: The peak systolic velocity within the left ICA measured 144 cm/sec. The end diastolic velocity measured 31 cm/sec. The ICA to CCA ratio measured 2.3 which correlates with a stenosis of 50-69%. The left ICA suboptimally visualized secondary to moderate calcified plaque formation. Peak systolic velocity within the left common carotid artery was measured at 64 cm/s. The end-diastolic velocity measured 13 cm/s. There is normal antegrade vertebral flow bilaterally. The pressure on the right measured 163/88 and on the left measured 149/96. IMPRESSION: 1. Moderate calcified plaque formation about the bilateral carotid bulbs correlates with elevated peak systolic velocities corresponding to 50-69% stenosis bilaterally. 2. Antegrade flow of the bilateral vertebral arteries. The above report was generated using voice recognition software. It may contain grammatical, syntax or spelling errors. Electronically signed by: Rob Juarez M.D. 02/18/2019 10:38 PM Dictated: 02/18/[id number] Transcribed: 02/18/192233 MR angio head wo con HISTORY: 78 years-old Female stroke like symptoms acute strokelike symptoms COMPARISON: MRA of the head 01/31/2019 TECHNIQUE: MRA of the head was obtained without the use of IV contrast utilizing 3-D [id number] sequencing. All measurements were obtained according to NASCET criteria. FINDINGS: Moderate focal narrowing about the proximal cavernous segment left ICA is unchanged. Bilateral internal carotid arteries are otherwise unremarkable and widely patent. The bilateral middle and right anterior cerebral arteries are widely patent. Hypoplastic left A1 segment is unchanged. Dominant right vertebral artery. Bilateral vertebral arteries are patent. Basilar and bilateral posterior cerebral arteries are also patent. Mild luminal narrowing of less than 50% involves the left P1 segment. No aneurysm, dissection or proximal branch occlusion. IMPRESSION: 1. Moderate focal narrowing of the proximal cavernous segment left ICA is unchanged. 2. No aneurysm, dissection or proximal branch occlusion. 3. Less than 50% luminal narrowing involves the left P1 segment, also unchanged. The above report was generated using voice recognition software. It may contain grammatical, syntax or spelling errors. Electronically signed by: Rob Juarez M.D. 02/18/2019 11:11 PM Dictated: 02/18/[id number] Transcribed: 02/18/192302 MRI OF THE CERVICAL SPINE WITHOUT CONTRAST CLINICAL HISTORY: Neck tenderness radiating to right arm. COMPARISON: MRI of the cervical spine May 06, 2015. TECHNIQUE: Utilizing a 1.5 Violet magnet and dedicated coil, multiplanar, multiecho imaging of the cervical spine was performed without IV contrast. FINDINGS: There is mild rightward curvature of the cervical spine. Vertebral body heights are maintained. There is no suspicious marrow placement. Exam is mildly compromised by artifact but remains diagnostic. Cervical cord signal and caliber are normal. There is no intracanalicular mass or fluid collection. No significant abnormalities identified within visualized portions of the posterior fossa. Paravertebral soft tissues are unremarkable. C2-C3: The central canal and neural foramen are patent. C3-C4: The central canal and neural foramen are patent. C4-C5: The central canal and neural foramen are patent. C5-C6: Central/right paracentral disc osteophyte complex indents the ventral aspect of the cord. There is mild to moderate narrowing of the central canal. This is unchanged as MRI April 26, 2015. Severe bilateral neural foraminal stenosis has slightly increased since prior exam C6-C7: The central canal and neural foramen are patent. C7-T1: The central canal and neural foramen are patent. IMPRESSION: 1. 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 This is similar to prior MRI of May 06, 2015. Severe bilateral neural foraminal stenosis at this level which has mildly increased. 2. Normal cervical cord signal and caliber. Electronically signed by: Brijesh Jeter M.D. 02/19/2019 12:31 PM Dictated: 02/19/19 1224 Transcribed: 02/19/191223 SINGLE VIEW CHEST CLINICAL HISTORY: Dysphagia. FINDINGS: An AP, portable, upright chest radiograph is compared to study dated 02/20/2019. The examination is degraded by portable technique and apical lordotic positioning. A right internal jugular central venous infusion port is unchanged in position. The heart is top normal for projection, and there is atherosclerotic calcification of the thoracic aorta. There are low lung volumes with bibasilar atelectasis. No airspace consolidation or large pleural effusion is identified. No pneumothorax is seen. The skeletal structures are osteopenic. The bony thorax is grossly intact. Cholecystectomy clips are noted. No radiodense foreign body is identified. IMPRESSION: No acute cardiopulmonary abnormality. Electronically signed by: Ramez Blanchard M.D. 02/21/2019 5:32 PM Dictated: 02/21/19 173 Transcribed: 02/21/191729 Hospital Course (1) Stroke-like symptoms: Present on admission with weakness and numbness in extremities Recent Lacunar infarct on [address] head on admission showed no acute intracranial finding Stroke alert called and did not meet criteria for TPA MRI and MRA head showed no acute intracranial finding Carotid doppler showed moderate calcified plaque formation about the bilateral carotid bulbs correlates with elevated peak systolic velocities corresponding to 50-69% stenosis bilaterally. Neuro on board recommended to continue current therapy with plavix and aspirin Speech and PT/OT on board Not safe to return home as per OT Monitor in tele Resolved MARIE on CKD 3 Creat increased to 1.7 Received IVF then creatinine trending down to 1.4 Will resume losartan on discharge Avoid nephrotoxic agents Check BMP within 1 week Hyperkalemia K 4.5 today Losartan was held Check BMP within 1 week Resolved Dyspnea Wheezing on exam CXR showed No acute process. Improved aeration of the left lung base from comparison. Procalcitonin negative Prednisone decreased to 20mg daily Continue neb treatment Dysphagia Choked on a piece of chicken during dinner CXR showed no acute cardiopulmonary abnormality. Case discussed with speech recommended soft bite size diet and moist food Will need to avoid dry, thick, pasty and doughy food Aspiration precaution Atypical Chest pain Reproducible on exam Troponinx2 negative EKG showed no significant change compare to previous one Continue plavix, aspirin, statin and metoprolol Stable Ambulatory dysfunction Continue PT/OT Not safe to return home Fall precaution Will go to [facility] for therapy Hyperglycemia DM type 2 BS on admission 430 Hba1c 9 pharmacy on board for glycemic managment Was starting on insulin drip by pharmacy yesterday BS has been stable Continue outpatient insulin therapy Monitor BS closely while on prednisone Right arm/shoulder pain MRI cervical showed Central/right paracentral disc osteophyte complex at C5-C6 that indents the ventral aspect of the cord and results in mild to moderate narrowing of the central canal. This is similar to prior MRI of May 06, 2015. Severe bilateral neural foraminal stenosis at this level which has mildly increased. Tylenol does not provide any relief Continue tramadol prn Ortho on board no steroid injection for now since this could be multifactorial Follow up with ortho as an outpatient if no improvement in symptoms HTN BP stabe Continue BP meds Monitor BP DVT px on heparin subq CODE STATUS FULL No Mech Ventillation Disposition Will tranfer to [facility] today Total Time Total Time Spent Total Time Spent (In Minutes): 35 minutes Total Time Includes: Examination of the Patient, Discharge Planning, Medication Reconciliation, Communication With Other Providers and Other Discharge Plan Discharge Items Patient Disposition: Transfer Inpatient Rehab Fac Reason For Visit: STROKE LIKE SYMPTOMS Discharge Diagnosis: Stroke like symptoms Discharge Goals: Decrease discomfort, Improve disease control, Improve function and Increase independence Activity: Resume your previous activity Non-emergency contact: Primary Care Provider and Neurologist Call non-emergency contact if: you have any medication questions Follow-up/Referrals: Colleen Jefferson [Primary Care Provider] - Diet: Carb Consistent or DM2 Addtl Provider Instructions: Follow up with your primary care provider once discharge from rehab Follow up with neurology dr. Ferguson in 4 to 6 weeks Follow up up with orthopedic Dr. Lauren if the left shoulder pain does not improve Fall precaution Follow up with speech therapy Continue physical and occupational therapy Monitor blood sugar closely and titrate insulin in needed Speech therapy recommendation: soft bite size diet and moist food Will need to avoid dry, thick, pasty and doughy food Aspiration precaution Hold Losartan for now due to elevate creatinine and electrolytes Monitor blood pressure Check BMP within 1 week to monitor renal function and electrolytes Prescriptions: New lidocaine 5 % Adhesive Patch,Medicated 1 patch transdermal QAM Qty: 5 RF: 0 Novolin N NPH U-100 Insulin 100 unit/mL Suspension 50 unit SC UD 30 Days Qty: 15 RF: 0 pantoprazole 40 mg Tablet,Delayed Release (Dr/Ec) 40 mg PO QAM 30 Days Qty: 30 RF: 0 prednisone 10 mg tablet 10 mg PO DAILY 3 Days Qty: 3 RF: 0 Continued trazodone 50 mg Tablet 50 mg PO HS RF: 0 ondansetron HCl [Zofran] 4 mg Tablet 4 mg PO QID PRN (Reason: Nausea) RF: 0 gabapentin [Neurontin] 400 mg Capsule 800 mg PO HS RF: 0 aspirin 81 mg Tablet,Delayed Release (Dr/Ec) 1 tab PO QPM RF: 0 lorazepam [Ativan] 0.5 mg Tablet 0.5 mg PO Q6 PRN (Reason: Anxiety) RF: 0 ranitidine HCl [Zantac 75] 75 mg Tablet 75 mg PO BID RF: 0 amlodipine [Norvasc] 10 mg Tablet 10 mg PO QAM RF: 0 docusate sodium [Colace] 100 mg Capsule 100 mg PO DAILY PRN (Reason: Constipation) RF: 0 albuterol sulfate [Proventil HFA] 90 mcg/actuation Hfa Aerosol Inhaler 2 puff INHALATION QID PRN (Reason: Wheezing) RF: 0 fluticasone propionate [Flonase Allergy Relief] 50 mcg/actuation [place],Suspension 2 spray INTRANASAL QPM PRN (Reason: allergies) RF: 0 dicyclomine 10 mg Capsule 10 mg PO TID PRN (Reason: ABDOMINAL CRAMPS) RF: 0 Creon 6,000-19,000 -30,000 unit Capsule,Delayed Release(Dr/Ec) 1 tab PO QID RF: 0 magnesium oxide 400 mg Capsule 400 mg PO QAM RF: 0 ropinirole 1 mg tablet 1 mg PO HS RF: 0 losartan 100 mg tablet 100 mg PO QAM RF: 0 levocetirizine [Xyzal] 5 mg Tablet 2.5 mg PO QPM RF: 0 albuterol sulfate 2.5 mg /3 mL (0.083 %) Solution For Nebulization 2.5 mg INHALATION QID PRN (Reason: Shortness Of Breath Or Wheezing) RF: 0 Dulera 200-5 mcg/actuation Hfa Aerosol Inhaler 2 puff INHALATION BID PRN (Reason: PRN) RF: 0 mirtazapine 45 mg Tablet 45 mg PO HS RF: 0 atorvastatin 40 mg Tablet 40 mg PO QAM Qty: 30 RF: 0 isosorbide mononitrate 30 mg Tablet Extended Release 24 Hr 30 mg PO QAM Qty: 30 RF: 0 clopidogrel 75 mg Tablet 75 mg PO QAM Qty: 30 RF: 2 nitroglycerin [Nitrostat] 0.4 mg Tablet, Sublingual 0.4 mg Sublingual PRN PRN (Reason: chest pain) Qty: 30 RF: 0 metoprolol tartrate [Lopressor] 50 mg Tablet 25 mg PO BID Qty: 0 RF: 0 Discontinued Humulin 70/30 U-100 Insulin 100 unit/mL (70-30) Suspension 85 units subcut BID RF: 0 Humulin R Regular U-100 Insuln 100 unit/mL Solution 24 units subcut BID RF: 0 Stand-Alone Forms: [facility] Discharge Orders: Discharge Order (Routine); Ordered 02/22/19 Ordered By: Adam Duque Skilled Items Patient informed of condition?: Yes DNR: No Discharge Level of Care: Acute rehab Communicable Disease: No Discharge Prognosis: Stable Admission Data Admit Date/Time: 02/22/19 07:40 Attending Provider: Adam Duque Admit Provider: Adam uDque Primary Care Provider: Colleen Jefferson Other Providers: Yonas Ferguson ; Daren Esqueda ; Rupert Wagner Service: Telemetry Other Interventions: Discharge Summary Assessment (RN) Last Done: 02/22/19 13:41 DC Date/Time DO NOT enter until pt leaves facility: 02/22/19 14:06
[2019-02-23] MEDS ORDERED: INSULIN ASPART 100 UNITS/ML 3 ML PEN SC ONE (02:00)
[2019-02-23] MEDS ORDERED: INSULIN HUMAN NPH SC SCH (07:00)
--- NOTE | 2019-02-25 09:48 | Coding Query ---
CODING QUERY To promote full compliance with coding requirements relating to patient care, provider participation is requested in all cases of spring manufacturing set up technician uncertainty. Please assist us with the question(s) below: Please clarify the meaning of MARIE (documented on Progress Note 02/21/19 through Discharge Summary on 02/22/19. MARIE is not a valid abbreviation. Thank you. ( x ) Acute Kidney Injury ( ) Acute Kidney Insufficiency ( ) Other (Specify): Principal Diagnosis: "that condition established after study, to be chiefly responsible for occasioning the admission of the patient to the hospital for care." Co-Existing Principal Diagnosis: "when two or more diagnoses equally meet the criteria for principal diagnosis as determined by the circumstances of admission, diagnostic work up, and/or therapy provided, and the Alphabetic Index, Tabular List, or another coding guideline does not provide sequencing direction, any one of the diagnoses may be sequenced first." "When the physician has documented what appears to be a current diagnosis in the body of the record, but has not included the diagnosis in the final diagnostic statement, the physician should be asked whether the diagnosis should be added." ([facility] 2 QTR90. p3-4) WILLIAM
--- NOTE | 2019-02-25 09:56 | Coding Query ---
CODING QUERY To promote full compliance with coding requirements relating to patient care, provider participation is requested in all cases of software release manager uncertainty. Please assist us with the question(s) below: Coding Question(s): There is documentation of a history of NSTEMI with the ER H&P showing documentation that "she states that the patient had a heart attack three weeks ago that required two stents be placed.". There is documentation of atypical chest pain during this admission with continuation of plavix, aspirin statin and metoprolol. Please clarify below, in your clinical opinion, regarding the history of NSTEMI. (x ) Patient had a recent NSTEMI, within 4 weeks prior to this admission and was monitored/treated with medication during this admission ( ) Patient had a NSTEMI in the past but it was over 4 weeks before this admission ( ) Patient had a NSTEMI in the past and it is not known if it was within 4 weeks of this admission Physician's Response(s): Thank you Sultana oMe Principal Diagnosis: "that condition established after study, to be chiefly responsible for occasioning the admission of the patient to the hospital for care." Co-Existing Principal Diagnosis: "when two or more diagnoses equally meet the criteria for principal diagnosis as determined by the circumstances of admission, diagnostic work up, and/or therapy provided, and the Alphabetic Index, Tabular List, or another coding guideline does not provide sequencing direction, any one of the diagnoses may be sequenced first." "When the physician has documented what appears to be a current diagnosis in the body of the record, but has not included the diagnosis in the final diagnostic statement, the physician should be asked whether the diagnosis should be added." ([facility] 2 QTR90. p3-4) WILLIAM
--- NOTE | 2019-02-25 09:58 | Coding Query ---
To promote full compliance with coding requirements relating to patient care, provider participation is requested in all cases of tech intern uncertainty. Please assist us with the question(s) below: Coding Question(s): The diagnosis below was documented in the Discharge Summary, under the Principal Diagnosis list of diagnosis. Please indicate if it is still a possible diagnosis or ruled out. Physician's Response(s): CVA ( ) Diagnosed and POA ( ) Diagnosed and not POA ( x ) Ruled out - this is a history only of CVA, not a new CVA ( ) Other (please specify) MTDD
--- NOTE | 2019-03-07 12:17 | Orthopedic Consultation ---
Date of Consultation March 07, 2019 History of Present Illness Attending Physician: Adam Duque MD History of Present Illness Patient was discharged from [facility] prior to my opportunity to consult. Allergies Allergy/AdvReac Type Severity Reaction Status Date / Time Iodinated Contrast- Oral and Allergy Severe RASH TO Verified 02/18/19 13:50 IV Dye IVP DYE,NAUSEA, FAINTING, COUGHING, GAGGING, HEADACH Sulfa (Sulfonamide Allergy Severe HIVES, Verified 02/18/19 13:50 Antibiotics) FACIAL AND ARM SWELLING cerivastatin Allergy Intermediate HIVES Verified 02/18/19 13:50 codeine Allergy Intermediate "PRICKLY Verified 02/18/19 13:50 RASH" hydroxyzine Allergy Intermediate N/V Verified 02/18/19 13:50 latex Allergy Intermediate DERMATITIS-PT Verified 02/18/19 13:50 TOLERATED A LATEX CATHETER 03/26/08 Bactrim Allergy Mild RASH Verified 04/29/18 14:40 diphenhydramine Allergy Mild RASH; Verified 02/18/19 13:50 SLEEPINESS WITH "PHARBEDRYL" loratadine Allergy Mild HIVES Verified 02/18/19 13:50 sulfamethoxazole Allergy Mild RASH Verified 02/18/19 13:50 trimethoprim Allergy Mild RASH Verified 02/18/19 13:50 prednisone Allergy Unknown elevates Verified 02/18/19 13:50 blood sugar tetanus toxoid, adsorbed AdvReac Intermediate SWELLING Verified 02/18/19 13:50 AT INJECTION SITE alprazolam AdvReac Unknown "SLEEPY Verified 02/18/19 13:50 STUPER" metformin AdvReac Unknown DIARRHEA Verified 02/18/19 13:50 morphine AdvReac Unknown VOMITING Verified 02/18/19 13:50 simvastatin AdvReac Unknown COUGH, Verified 02/18/19 13:50 "DISCOMFORT" Home Medications Home Medications Medication Instructions Recorded Confirmed Type Creon 1 tab PO QID 08/24/18 02/18/19 History albuterol sulfate [Proventil HFA] 2 puff INHALATION QID PRN 08/24/18 02/18/19 History amlodipine [Norvasc] 10 mg PO QAM 08/24/18 02/18/19 History aspirin 1 tab PO QPM 08/24/18 02/18/19 History dicyclomine 10 mg PO TID PRN 08/24/18 02/18/19 History docusate sodium [Colace] 100 mg PO DAILY PRN 08/24/18 02/18/19 History fluticasone propionate [Flonase 2 spray INTRANASAL QPM PRN 08/24/18 02/18/19 History Allergy Relief] gabapentin [Neurontin] 800 mg PO HS 08/24/18 02/18/19 History lorazepam [Ativan] 0.5 mg PO Q6 PRN 08/24/18 02/18/19 History magnesium oxide 400 mg PO QAM 08/24/18 02/18/19 History ondansetron HCl [Zofran] 4 mg PO QID PRN 08/24/18 02/18/19 History ranitidine HCl [Zantac 75] 75 mg PO BID 08/24/18 02/18/19 History trazodone 50 mg PO HS 08/24/18 02/18/19 History Dulera 2 puff INHALATION BID PRN 01/26/19 02/18/19 History albuterol sulfate 2.5 mg INHALATION QID PRN 01/26/19 02/18/19 History levocetirizine [Xyzal] 2.5 mg PO QPM 01/26/19 02/18/19 History losartan 100 mg PO QAM 01/26/19 02/18/19 History mirtazapine 45 mg PO HS 01/26/19 02/18/19 History ropinirole 1 mg PO HS 01/26/19 02/18/19 History atorvastatin 40 mg PO QAM #30 tab 01/28/19 02/18/19 Rx clopidogrel 75 mg PO QAM #30 tab 01/28/19 02/18/19 Rx isosorbide mononitrate 30 mg PO QAM #30 tab 01/28/19 02/18/19 Rx nitroglycerin [Nitrostat] 0.4 mg SUBLINGUAL PRN PRN #30 tab 01/28/19 02/18/19 Rx metoprolol tartrate [Lopressor] 25 mg PO BID #0 tab 02/02/19 02/18/19 Rx insulin NPH isoph U-100 human 50 unit SC UD 30 Days #15 ml 02/22/19 Rx [Novolin N NPH U-100 Insulin] lidocaine 1 patch TRANSDERMAL QAM #5 ea 02/22/19 Rx pantoprazole 40 mg PO QAM 30 Days #30 tab 02/22/19 Rx Patient History Medical History Acute CVA (cerebrovascular accident) Elevated troponin Weakness Pre-syncope Leukocytosis Pneumonia Valvular heart disease Non-STEMI (non-ST elevated myocardial infarction) Left bundle branch block Giant cell arteritis (Resolved) Gastroparesis (Chronic) Dyslipidemia (Chronic) Depression (Chronic) HTN (hypertension) (Chronic) Insomnia (Chronic) RLS (restless legs syndrome) (Chronic) Peripheral neuropathy (Chronic) Pancreatic cyst (Chronic) Anxiety (Chronic) COPD (chronic obstructive pulmonary disease) (Chronic) Diabetes mellitus, type II (Chronic) Sleep apnea (Chronic) Chronic pancreatitis (Chronic) Cerebrovascular disease (Chronic) "history stroke and TIA" L sided weakness. Fatty liver (Chronic) Esophageal dysmotility (Chronic) Gastroparesis (Chronic) Pancreatic divisum (Chronic) CKD (chronic kidney disease), stage III (Chronic) Aortic stenosis (Chronic) mild. Osteoarthritis (Chronic) Seasonal allergies (Chronic) Pancreatitis Surgical History History of cataract surgery (Chronic) both eyes History of ERCP (Chronic) x3 with stents. ERCP 04/30/18. MAC 3, grade 2 view. 7.0 ETT placed. No issues. History of bilateral tubal ligation (Chronic) History of colonoscopy (Chronic) S/P cardiac catheterization Social History Preferred Language: Guamanian Beliefs That Will Affect Care: None marital status: / Current Living Situation: Alone Other Information That Helps Us Care for You: No Feels Safe at Home: Yes Safety Concerns: Feels Safe At This Time Smoking Status: Former smoker Hx Alcohol Use: No Hx Substance Use: No Physical Exam Vital Signs (Past 24 Hours): Last Vital Signs Temp 36.6 C 02/22/19 13:41 Pulse 70 02/22/19 13:41 Resp 20 02/22/19 13:41 BP 179/75 H 02/22/19 13:41 Pulse Ox 97 02/22/19 13:41
== END 2019-02-22 14:06 | DRG 91 ==
LOC: ED 13:17 → 2S 13:17

== ENCOUNTER 2019-05-04 15:15 | Inpatient (IN) ==
--- OUTSIDE RECORDS SUMMARY | 2019-05-04 15:19 | External Medical Summary | Continuity of Care Document ---
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 (296.33) (F33.2) Chronic kidney disease, stage III (moderate) (585.3) (N18.3) Carotid stenosis (433.10) (I65.29) Esophageal dysmotility (530.5) (K22.4) HTN (hypertension) (401.9) (I10) Diabetes mellitus (250.00) (E11.9) Bilateral carotid artery occlusion (433.10) (I65.23) Laryngopharyngeal reflux (478.79) (K21.9) Dysarthria, 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 Julio Cesar Mccrary Start: 05-Dec-2013 Quantity: 30 Refills: 10 amLODIPine Besylate 5 MG Oral Tablet; TAKE 1 TABLET DAILY. , M.D. Refills: 0 Aspirin 81 MG TABS; TAKE 1 TABLET DAILY. , M.D. Refills: 0 Docusate Sodium 100 MG Oral Capsule; TAKE 1 CAPSULE TW ICE DAILY NEEDED. , M.D. Refills: 0 Yovana Allergy 60 MG Oral Tablet; TAKE 1 TABLET EVERY 12 HO URS. , M.D. Refills: 0 Fluticasone Propionate 50 MCG/ACT Nasal Suspension , M.D. Refills: 0 Gabapentin 400 MG Oral Capsule , M.D. Refills: 0 Lantus SOLN; 50 units at breakfast and 40 units at bedtime , M.D. Refills: 0 Lisinopril 10 MG Oral Tablet; TAKE 1 TABLET DAILY. , M.D. Refills: 0 Mirtazapine 45 MG Oral Tablet Disintegra ting; DISSOLVE ONE TABLET ON TONGUE AND SWALLOW WITH OR WITHOUT WATER ONCE DAILY AT BEDTIME. , M.D. Refills: 0 Senna TABS , M.D. Refills: 0 oxyCODONE HCl - 5 MG Oral Capsule; TAKE 1 CAPSULE EVER Y 4 TO 6 HOURS NEEDED. , Julio Cesar Start: 30-May-2015 Refills: 0 Metoprolol Tartrate 25 MG Oral Tablet; TAKE 1 TABLET TWICE D Julio Cesar BECERRA Start: 30-May-2015 Refills: 0 Vistaril 50 MG Oral Capsule; TAKE 1 CAPSULE AT BEDTIME. Kirsten. DDanii Start: 30-May-2015 Refills: 0 NovoLOG FlexPen 100 UNIT/ML Subcutaneous Solution Pen-injector; INJECT SUBCUTANEOUSLY DIRECTED. , M.DDanii Start: 30-May-2015 Refills: 0 Brovana 15 MCG/2ML Inhalation Nebulizati on Solution; INHALE THE CONTENTS OF 1 VIAL TWO TIMES DAILY IN THE MORNING AND EVENING VIA STANDARD JET NEBULIZER DIRECTED. ArunDDanii Start: 30-May-2015 Refills: 0 Clobetasol Propionate 0.05 % External Cr eam; APPLY SPARINGLY TO AFFECTED AREA(S) TWICE DAILY , M.DDanii Start: 30-May-2015 Refills: 0 NovoFine 30G X 8 MM MISC; USE DIRECTED. Kirsten.DDanii Start: 30-May-2015 Refills: 0 Senna 8.6 MG Oral Tablet; TAKE DIRECTED. Kirsten.DDanii Start: 30-May-2015 Refills: 0 Dicyclomine HCl - 10 MG Oral Capsule; TAKE 1 CAPSULE E VERY 6 HOURS NEEDED. , Kirsten.DDanii Start: 30-May-2015 Refills: 0 Dulcolax 10 MG Rectal Suppository; INSERT 1 SUPPOSITOR Y RECTALLY ONCE DAILY. , M.DDanii Start: 30-May-2015 Refills: 0 Calcium 600+D 600-200 MG-UNIT Oral Tablet; TAKE 1 TABLET SUSAN LY. Julio Cesar Start: 30-May-2015 Refills: 0 Vitamin D 1000 UNIT CAPS; TAKE DIRECTED. M.DDanii Start: 30-May-2015 Refills: 0 Ventolin HFA 108 (90 Base) MCG/ACT Inhal ation Aerosol Solution; INHALE 1 TO 2 PUFFS EVERY 4 TO 6 HOURS NEEDED. M.DDanii Start: 30-May-2015 Refills: 0 Magnesium Oxide 400 MG Oral Tablet; TAKE 1 TABLET DAILY. M .DDanii Start: 30-May-2015 Refills: 0 rOPINIRole HCl - 0.5 MG Oral Tablet; TAKE 1 TABLET , M.D. Start: 30-May-2015 Refills: 0 Escitalopram Oxalate 10 MG Oral Tablet; TAKE 1 AND 1/2 TABLE TS DAILY. , M.DDanii Start: 30-May-2015 Refills: 0 traZODone HCl - 50 MG Oral Tablet; TAKE 1 TABLET AT BEDTIME. M.DDanii Start: 30-May-2015 Refills: 0 Creon 6000 UNIT Oral Capsule Delayed Release Particles , M.D Danii Start: 30-May-2015 Refills: 0 Procedures History of Ankle Repair Status: Complete d History of Cholecystectomy Laparoscopic Status: Completed History of Tubal Ligation Status: Comple mitch History of Diagnostic Esophagogastroduodenoscopy Status: Completed History of Cataract Surgery Status: Comp leted History of Endoscopic Retrograde Cholangiopancreatography (E RECAPPER) Status: Completed Immunizations Immunizations not documented Family History Unknown Family Member Family history of malignant neoplasm (V16.9) Status: Active Comments: Family History (Z80.9) Family history of diabetes mellitus (V18.0) Status: Active Comments: Family History (Z83.3) Family history of hypertension (V17.49) Status: Active Comments: Family History (Z82.49) Family history of cerebrovascular accident Status: Active Comments: Family History (V17.1) (Z82.3) Mother Family history of diabetes mellitus (V18.0) (Z83.3) Status: Active Family history of hypertension (V17.49) (Z82.49) Status: Act christiana Grandmother Family history of hypertension (V17.49) (Z82.49) Status: Act christiana Grandfather Family history of cerebrovascular accident (V17.1) (Z82.3) S tatus: Active Social History - Smoking Status Unknown if ever smoked Former smoker Plan of Treatment Planned Observations Planned Goals not documented Results No Known Results Results not documented
[2019-05-04] MEDS ORDERED: NITROGLYCERIN SL 0.4 MG/TAB TAB SL STA (15:36)
[2019-05-04 16:02] LABS: Basophils # (auto) 0.07 K/uL (0-0.2); Basophils % (auto) 0.7 %; Eosinophils # (auto) 0.47 K/uL (0-0.5); Eosinophils % (auto) 4.7 %; Hematocrit (blood only) 34.2 % (37-47); Immature Granulocytes # (auto) 0.02 K/uL (0.00-0.02); Immature Granulocytes % (auto) 0.2 %; Lymphocytes # (auto) 3.29 K/uL (1.2-3.4); Lymphocytes % (auto) 33.1 %; Mean Corpuscular Hgb Conc 35.1 g/dL (32-36); Mean Corpuscular Volume 87.7 fL (80-100); Mean Platelet Volume 9.4 fL (7.4-10.4); Monocytes # (auto) 0.89 K/uL (0.11-0.59); Monocytes % (auto) 8.9 %; Neutrophils # (auto) 5.21 K/uL (1.4-6.5); Neutrophils % (auto) 52.4 %; Platelet Count 221 K/uL (130-400); RDW Coefficient of Variation 13.3 % (11.5-14.5); RDW Standard Deviation 42.9 fL (36.4-46.3); White Blood Count 9.95 K/uL (4.8-10.8)
--- NOTE | 2019-05-04 16:09 | XRay Report ---
XR chest 1V portable HISTORY: 78 years-old Female Chest Pain acute atypical chest pain COMPARISON: Chest radiograph 02/21/2019 TECHNIQUE: Portable AP view of the chest FINDINGS: Stable positioning of the right internal jugular [id number] catheter. Cardiac silhouette is enlarg ed, unchanged. Mild right hemidiaphragmatic elevation. Calcification of the thoracic aortic arch. Chr onic interstitial coarsening of the lung bases. No pneumothorax, pleural effusion or overt pulmonary edema. Degenerative changes of the shoulders and spine. IMPRESSION: No acute process. The above report was generated using voice recognition software. It may contain grammatical, syntax o r spelling errors. Electronically signed by: Rob Juarez M.D. 05/04/2019 4:07 PM
[2019-05-04 16:13] LABS: INR 1.2 (0.9-1.1); Partial Thromboplastin Time 26.8 Seconds (21.0-31.0); Prothrombin Time 11.9 Seconds (9.0-12.0)
[2019-05-04] MEDS: NITROGLYCERIN SL 0.4 MG/TAB TAB SL PRN ×4 (16:31→21:10)
[2019-05-04 16:39] LABS: Alanine Aminotransferase 68 U/L (12-78); Albumin Globulin Ratio 0.9 (0.9-2); Alkaline Phosphatase 184 U/L (45-117); Aspartate Aminotransferase 69 U/L (15-37); BUN Creatinine Ratio 16.3 (10-20); Bilirubin,Total 0.4 mg/dl (0.2-1); Blood Urea Nitrogen 25 mg/dl (7-18); Carbon Dioxide 20 mmol/L (21-32); Chloride 105 mmol/L (98-107); Creatinine Clr Calc Pharmacy 28.5 ml/min; Est GFR (African American) 37.7; Est GFR (Non-African American) 32.5; Globulin 3.5 gm/dl (2.5-4.0); Glucose 515 mg/dl (70-99); Potassium 4.5 mmol/L (3.5-5.1); Sodium 133 mmol/L (136-145); Total Protein 6.5 gm/dl (6.4-8.2); Troponin I < 0.015 ng/ml (0-0.045)
[2019-05-04 16:51] LABS: Beta-Hydroxybutyrate 2.43 mg/dl (0.2-2.81)
[2019-05-04] MEDS ORDERED: SODIUM CHLORIDE 0.9% 1000ML 1,000 ML IV ONE (16:51)
[2019-05-04] MEDS ORDERED: NovoLIN-R INSULIN PER UNIT CHARGE IV STA (16:51)
[2019-05-04] MEDS ORDERED: CARBOHYDRATES FOR HYPOGLYCEMIA PO PRN (17:34)
[2019-05-04] MEDS ORDERED: GLUCOSE 10 TABS/TUBE PO PRN (17:34)
[2019-05-04] MEDS ORDERED: GLUCOSE 40% GEL 15 GM TUBE PO PRN (17:34)
[2019-05-04] MEDS ORDERED: GLUCAGON FOR INJ 1 MG VIAL SQ PRN (17:34)
[2019-05-04] MEDS ORDERED: DEXTROSE 50% 50 ML SYRINGE IV PRN (17:34)
[2019-05-04] MEDS ORDERED: DOCUSATE SODIUM 100 MG CAP PO PRN (17:41)
--- NOTE | 2019-05-04 17:47 | History & Physical Report ---
Date of Service May 04, 2019 Assessment & Plan (1) Diabetes mellitus, type II: Type 2 diabetes mellitus with assisted current use of insulin with hyperglycemia -admission serum glucose of 515 -patient received regular human insulin 10 units x 1 in the ED, on IV fluids -continue IV fluids -insulin aspart with meals -discussed with pharmacy glycemic consult about possibility that if glucose are better controlled on repeat that IV insulin may not needed to be started as patient does not have anion gap and at mental baseline -likely when patient on medical escobar would be started on Lantus as basal insulin in place of home dose Novolin 70/30 as 55 units qAM and 35 units qPM Diabetic Neuropathy as per history -would hold off gabapentin 800 mg QHS and change to 300 mg TID to give more pain management coverage throughout the day Left leg pain likely due to Sciatica pain -left flank with pain on palpation -left leg pain with tingling x 1 week at home -gabapentin as above -would hold off back imaging until glucose better controlled and more respiratory and cardiac workup and management -PT/OT evaluations Chest Pain history of cardiac stents -patient with chest pain (pain is beneath left breast) x 1 day -reports that the chest pain relieved with nitro in the ED -initial troponin negative -trend troponin -monitor on telemetry -obtain echocardiogram -continue home dose aspirin and plavix -continue home dose imdur, metoprolol tartrate, losartan Asthma -duonebs q6 hours -home dose dulera inhaler History of stroke -reports residual right arm weakness -continue home dose aspirin and plavix DVT ppx: heparin 5000 unit subc every 12 hours Chronic kidney disease stage III -monitor renal function Full Code Family Obey, granddaughter [phone] Omi, son in law [phone] History of Present Illness This is a 78 year female with history of coronary artery disease with stents, with history of stroke, and diabetes mellitus on insulin. Patient sent to ED from primary care doctor with complaints of chest pain. As per patient the chest patient started yesterday. Pain is below left breast. Patient denies heavy lifting or pulled muscle strain. She reports that chest pain was relieved with nitro. Patient also having left lower extremity tingling sensations x 1 week. She also has left lower back pain. She does not appear to be able to correlate whether these symptoms of left leg and back discomforts presented at the same time but reports that the leg discomfort and tingling x 1 week. She does not feel that leg symptoms are similar to diabetic neuropathy. denies history of back problems. she ambulates at home. Patient reports she takes her Novolin insulin twice a day regularly and that her sugars are usually controlled. Her blood glucose 515 on ED presentation. Patient mentating well. she does not have confusion. no vomiting. no abdominal pain. patient does not feel she is more short of breath. breathing on room air. no wheezing. no loss of consciousness. no dizziness. no headache Primary Care Provider: Colleen Jefferson, Allergies Allergy/AdvReac Type Severity Reaction Status Date / Time Iodinated Contrast- Oral and Allergy Severe RASH TO Verified 05/04/19 17:01 IV Dye IVP DYE,NAUSEA, FAINTING, COUGHING, GAGGING, HEADACH Sulfa (Sulfonamide Allergy Severe HIVES, Verified 05/04/19 17:01 Antibiotics) FACIAL AND ARM SWELLING cerivastatin Allergy Intermediate HIVES Verified 05/04/19 17:01 codeine Allergy Intermediate "PRICKLY Verified 05/04/19 17:01 RASH" hydroxyzine Allergy Intermediate N/V Verified 05/04/19 17:01 latex Allergy Intermediate DERMATITIS-PT Verified 05/04/19 17:01 TOLERATED A LATEX CATHETER 03/26/08 Bactrim Allergy Mild RASH Verified 04/29/18 14:40 diphenhydramine Allergy Mild RASH; Verified 05/04/19 17:01 SLEEPINESS WITH "PHARBEDRYL" loratadine Allergy Mild HIVES Verified 05/04/19 17:01 sulfamethoxazole Allergy Mild RASH Verified 05/04/19 17:01 trimethoprim Allergy Mild RASH Verified 02/18/19 13:50 prednisone Allergy Unknown elevates Verified 02/18/19 13:50 blood sugar tetanus toxoid, adsorbed AdvReac Intermediate SWELLING Verified 02/18/19 13:50 AT INJECTION SITE alprazolam AdvReac Unknown "SLEEPY Verified 02/18/19 13:50 STUPER" metformin AdvReac Unknown DIARRHEA Verified 02/18/19 13:50 morphine AdvReac Unknown VOMITING Verified 02/18/19 13:50 simvastatin AdvReac Unknown COUGH, Verified 02/18/19 13:50 "DISCOMFORT" Home Medications Home Medications Medication Instructions Recorded Confirmed Type amlodipine [Norvasc] 10 mg PO QAM 08/24/18 05/04/19 History aspirin 1 tab PO QPM 08/24/18 05/04/19 History dicyclomine 10 mg PO TID PRN 08/24/18 05/04/19 History docusate sodium [Colace] 100 mg PO DAILY PRN 08/24/18 05/04/19 History fluticasone propionate [Flonase 2 spray INTRANASAL QPM PRN 08/24/18 05/04/19 History Allergy Relief] gabapentin [Neurontin] 800 mg PO HS 08/24/18 05/04/19 History lorazepam [Ativan] 0.5 mg PO Q6 PRN 08/24/18 05/04/19 History magnesium oxide 400 mg PO QAM 08/24/18 05/04/19 History ondansetron HCl [Zofran] 4 mg PO QID PRN 08/24/18 05/04/19 History ranitidine HCl [Zantac 75] 75 mg PO BID 08/24/18 05/04/19 History trazodone 50 mg PO HS 08/24/18 05/04/19 History albuterol sulfate 2.5 mg INHALATION QID PRN 01/26/19 05/04/19 History levocetirizine [Xyzal] 2.5 mg PO QPM 01/26/19 05/04/19 History losartan 100 mg PO QAM 01/26/19 05/04/19 History mirtazapine 45 mg PO HS 01/26/19 05/04/19 History ropinirole 1 mg PO HS 01/26/19 05/04/19 History atorvastatin 40 mg PO QAM #30 tab 01/28/19 05/04/19 Rx clopidogrel 75 mg PO QAM #30 tab 01/28/19 05/04/19 Rx isosorbide mononitrate 30 mg PO QAM #30 tab 01/28/19 05/04/19 Rx nitroglycerin [Nitrostat] 0.4 mg SUBLINGUAL PRN PRN #30 tab 01/28/19 05/04/19 Rx metoprolol tartrate [Lopressor] 25 mg PO BID #0 tab 02/02/19 05/04/19 Rx albuterol sulfate [Proventil HFA] 2 puff INHALATION Q4 PRN 05/04/19 05/04/19 History insulin NPH and regular human 35 unit SUBCUT QPM 05/04/19 05/04/19 History [Novolin 70/30 U-100 Insulin] insulin NPH and regular human 55 unit SUBCUT QAM 05/04/19 05/04/19 History [Novolin 70/30 U-100 Insulin] Past Med/Surg History Medical History Acute CVA (cerebrovascular accident) Elevated troponin Weakness Pre-syncope Leukocytosis Pneumonia Valvular heart disease Non-STEMI (non-ST elevated myocardial infarction) Left bundle branch block Giant cell arteritis (Resolved) Gastroparesis (Chronic) Dyslipidemia (Chronic) Depression (Chronic) HTN (hypertension) (Chronic) Insomnia (Chronic) RLS (restless legs syndrome) (Chronic) Peripheral neuropathy (Chronic) Pancreatic cyst (Chronic) Anxiety (Chronic) COPD (chronic obstructive pulmonary disease) (Chronic) Diabetes mellitus, type II (Chronic) Sleep apnea (Chronic) Chronic pancreatitis (Chronic) Cerebrovascular disease (Chronic) "history stroke and TIA" L sided weakness. Fatty liver (Chronic) Esophageal dysmotility (Chronic) Gastroparesis (Chronic) Pancreatic divisum (Chronic) CKD (chronic kidney disease), stage III (Chronic) Aortic stenosis (Chronic) mild. Osteoarthritis (Chronic) Seasonal allergies (Chronic) Pancreatitis Surgical History History of cataract surgery (Chronic) both eyes History of ERCP (Chronic) x3 with stents. ERCP 04/30/18. MAC 3, grade 2 view. 7.0 ETT placed. No issues. History of bilateral tubal ligation (Chronic) History of colonoscopy (Chronic) S/P cardiac catheterization Social History Preferred Language: Swedish Communication Ability: Effective Beliefs That Will Affect Care: None marital status: / Current Living Situation: Alone Feels Safe at Home: Yes Smoking Status: Former smoker Second Hand Exposure: No Hx Alcohol Use: No Hx Substance Use: No Review of Systems Review of Systems: All systems reviewed & are unremarkable except as noted in HPI & below Physical Exam Constitutional: WD/WN, vitals as above Eyes: PERRL, conjunctivae normal, anicteric sclerae EOM intact bilaterally ENMT: external ear and nose normal, oropharynx normal Neck: trachea midline, no thyromegaly normal visual inspection Respiratory: normal respiratory effort, lungs clear to auscultation air inhalation and exhalation is tight. no wheezing. no crackles Cardiovascular: RRR, no murmur, no edema Gastrointestinal (Abdomen): normal bowel sounds, soft, nontender, no hepatosplenomegaly Musculoskeletal: pain on left flank palpation Neurologic: PERRL, EOMI, accommodation nl, no face palsy, no dysarthria right upper extremity almost symmetric compared to left upper extremity, left lower extremity is weaker compared to right side on leg raise and flexion and extension of the left ankles, patient reports left left discomfort with the performed motions Results & Data Vital Signs (Past 12 Hours) Vital Signs Temp Pulse Resp BP Pulse Ox 05/04/19 16:50 96 H 20 148/92 H 96 05/04/19 16:40 90 23 157/73 H 98 05/04/19 16:36 97 H 35 H 113/80 97 05/04/19 16:32 88 19 148/110 H 99 05/04/19 15:19 36.4 C L 90 20 164/90 H 98
--- NOTE | 2019-05-04 18:22 | Emergency Department Note ---
Entered by Hemalatha Bolden acting as a scribe for Toño Correa MD History of Present Illness General Chief complaint: Chest Pain Stated complaint: HEART ATTACK Time Seen by Provider: 05/04/19 15:29 Source: patient History of Present Illness Onset (ago): day(s) (last night) Location: chest Pain Consistency: + other (episode) Maximum Pain Intensity: 6 Current Pain Intensity: 6 Relieved By: + medication (Nitroglycerin) Exacerbated By: + other (breathing) Associated symptoms: + other (left leg tingling/numbness) The patient is a 78 year old female who presents to the ED with complaints of an episode of chest pain that began last night. The patient states that she went to the doctors office this morning for her left leg tingling and numbness. She states that while there she mentioned her chest pain and they did an EKG that was concerning, so they sent her into the ED. She reports that while there she was given a Nitroglycerin and it alleviated her pain some. She notes that she took Aspirin at home. The patient complains of pain with breathing. She currently rates her pain as a 6/10 in severity. Home Medications Home Medications Medication Instructions Recorded Confirmed Type amlodipine [Norvasc] 10 mg PO QAM 08/24/18 05/04/19 History aspirin 1 tab PO QPM 08/24/18 05/04/19 History dicyclomine 10 mg PO TID PRN 08/24/18 05/04/19 History docusate sodium [Colace] 100 mg PO DAILY PRN 08/24/18 05/04/19 History fluticasone propionate [Flonase 2 spray INTRANASAL QPM PRN 08/24/18 05/04/19 Hi story Allergy Relief] gabapentin [Neurontin] 800 mg PO HS 08/24/18 05/04/19 History lorazepam [Ativan] 0.5 mg PO Q6 PRN 08/24/18 05/04/19 History magnesium oxide 400 mg PO QAM 08/24/18 05/04/19 History ondansetron HCl [Zofran] 4 mg PO QID PRN 08/24/18 05/04/19 History ranitidine HCl [Zantac 75] 75 mg PO BID 08/24/18 05/04/19 History trazodone 50 mg PO HS 08/24/18 05/04/19 History albuterol sulfate 2.5 mg INHALATION QID PRN 01/26/19 05/04/19 History levocetirizine [Xyzal] 2.5 mg PO QPM 01/26/19 05/04/19 History losartan 100 mg PO QAM 01/26/19 05/04/19 History mirtazapine 45 mg PO HS 01/26/19 05/04/19 History ropinirole 1 mg PO HS 01/26/19 05/04/19 History atorvastatin 40 mg PO QAM #30 tab 01/28/19 05/04/19 Rx clopidogrel 75 mg PO QAM #30 tab 01/28/19 05/04/19 Rx isosorbide mononitrate 30 mg PO QAM #30 tab 01/28/19 05/04/19 Rx nitroglycerin [Nitrostat] 0.4 mg SUBLINGUAL PRN PRN #30 tab 01/28/19 05/04/19 Rx metoprolol tartrate [Lopressor] 25 mg PO BID #0 tab 02/02/19 05/04/19 Rx albuterol sulfate [Proventil HFA] 2 puff INHALATION Q4 PRN 05/04/19 05/04/19 History insulin NPH and regular human 35 unit SUBCUT QPM 05/04/19 05/04/19 History [Novolin 70/30 U-100 Insulin] insulin NPH and regular human 55 unit SUBCUT QAM 05/04/19 05/04/19 History [Novolin 70/30 U-100 Insulin] Allergies Allergy/AdvReac Type Severity Reaction Status Date / Time Iodinated Contrast- Oral and Allergy Severe RASH TO Verified 05/04/19 17:01 IV Dye IVP DYE,NAUSEA, FAINTING, COUGHING, GAGGING, HEADACH Sulfa (Sulfonamide Allergy Severe HIVES, Verified 05/04/19 17:01 Antibiotics) FACIAL AND ARM SWELLING cerivastatin Allergy Intermediate HIVES Verified 05/04/19 17:01 codeine Allergy Intermediate "PRICKLY Verified 05/04/19 17:01 RASH" hydroxyzine Allergy Intermediate N/V Verified 05/04/19 17:01 latex Allergy Intermediate DERMATITIS-PT Verified 05/04/19 17:01 TOLERATED A LATEX CATHETER 03/26/08 Bactrim Allergy Mild RASH Verified 04/29/18 14:40 diphenhydramine Allergy Mild RASH; Verified 05/04/19 17:01 SLEEPINESS WITH "PHARBEDRYL" loratadine Allergy Mild HIVES Verified 05/04/19 17:01 sulfamethoxazole Allergy Mild RASH Verified 05/04/19 17:01 trimethoprim Allergy Mild RASH Verified 02/18/19 13:50 prednisone Allergy Unknown elevates Verified 02/18/19 13:50 blood sugar tetanus toxoid, adsorbed AdvReac Intermediate SWELLING Verified 02/18/19 13:50 AT INJECTION SITE alprazolam AdvReac Unknown "SLEEPY Verified 02/18/19 13:50 STUPER" metformin AdvReac Unknown DIARRHEA Verified 02/18/19 13:50 morphine AdvReac Unknown VOMITING Verified 02/18/19 13:50 simvastatin AdvReac Unknown COUGH, Verified 02/18/19 13:50 "DISCOMFORT" Past Med/Surg History Medical History Acute CVA (cerebrovascular accident) Elevated troponin Weakness Pre-syncope Leukocytosis Pneumonia Valvular heart disease Non-STEMI (non-ST elevated myocardial infarction) Left bundle branch block Giant cell arteritis (Resolved) Gastroparesis (Chronic) Dyslipidemia (Chronic) Depression (Chronic) HTN (hypertension) (Chronic) Insomnia (Chronic) RLS (restless legs syndrome) (Chronic) Peripheral neuropathy (Chronic) Pancreatic cyst (Chronic) Anxiety (Chronic) COPD (chronic obstructive pulmonary disease) (Chronic) Diabetes mellitus, type II (Chronic) Sleep apnea (Chronic) Chronic pancreatitis (Chronic) Cerebrovascular disease (Chronic) "history stroke and TIA" L sided weakness. Fatty liver (Chronic) Esophageal dysmotility (Chronic) Gastroparesis (Chronic) Pancreatic divisum (Chronic) CKD (chronic kidney disease), stage III (Chronic) Aortic stenosis (Chronic) mild. Osteoarthritis (Chronic) Seasonal allergies (Chronic) Pancreatitis Surgical History History of cataract surgery (Chronic) both eyes History of ERCP (Chronic) x3 with stents. ERCP 04/30/18. MAC 3, grade 2 view. 7.0 ETT placed. No issues. History of bilateral tubal ligation (Chronic) History of colonoscopy (Chronic) S/P cardiac catheterization Family History Daughter No problems noted. Father Family history of diabetes mellitus Family/Other Family history of diabetes mellitus Mother Family history of diabetes mellitus Grandfather Family history of diabetes mellitus Grandmother Family history of diabetes mellitus Social History Preferred Language: Burundian Communication Ability: Effective Receiving Room Clerk Required: No Beliefs That Will Affect Care: None marital status: / Current Living Situation: Alone Current Living Situation Comment: january 21, no longer has drivers license - stroke Other Information That Helps Us Care for You: No Feels Safe at Home: Yes Safety Concerns: Feels Safe At This Time Smoking Status: Never smoker Second Hand Exposure: No Hx Alcohol Use: No Hx Substance Use: No Review of Systems See HPI for pertinent positives & negatives. and A total of 10 systems reviewed and were otherwise negative Physical Exam Vital Signs Vital Signs - 24 hr 05/04/19 15:16 05/04/19 15:19 05/04/19 16:32 Temperature 36.4 C L Temperature Source Oral Sepsis Recent Fever Within 48 Hours No Sepsis Action Taken by Nursing No Action Required Pulse Rate 90 88 Pulse Rate from SpO2 Sensor 88 Respiratory Rate 20 19 Respiratory Effort / Characteristics Non-Labored Respiratory Depth Normal Respiratory Pattern Regular Blood Pressure 164/90 H 148/110 H Blood Pressure Mean 114 122 Pulse Oximetry 98 99 Oxygen Delivery Method Room Air Room Air Oxygen Flow Rate 96 05/04/19 16:36 05/04/19 16:40 05/04/19 16:50 Temperature Temperature Source Sepsis Recent Fever Within 48 Hours Sepsis Action Taken by Nursing Pulse Rate 97 H 90 96 H Pulse Rate from SpO2 Sensor 98 H 90 96 H Respiratory Rate 35 H 23 20 Respiratory Effort / Characteristics Respiratory Depth Respiratory Pattern Blood Pressure 113/80 157/73 H 148/92 H Blood Pressure Mean 91 101 110 Pulse Oximetry 97 98 96 Oxygen Delivery Method Oxygen Flow Rate 05/04/19 16:55 05/04/19 17:00 05/04/19 17:05 Temperature Temperature Source Sepsis Recent Fever Within 48 Hours Sepsis Action Taken by Nursing Pulse Rate 92 H 88 86 Pulse Rate from SpO2 Sensor 92 H 88 86 Respiratory Rate 20 21 22 Respiratory Effort / Characteristics Respiratory Depth Respiratory Pattern Blood Pressure 154/91 H 150/86 H 162/85 H Blood Pressure Mean 112 107 110 Pulse Oximetry 97 98 98 Oxygen Delivery Method Oxygen Flow Rate 05/04/19 17:11 05/04/19 17:15 05/04/19 17:21 Temperature Temperature Source Sepsis Recent Fever Within 48 Hours Sepsis Action Taken by Nursing Pulse Rate 89 90 94 H Pulse Rate from SpO2 Sensor 90 89 93 H Respiratory Rate 23 22 24 Respiratory Effort / Characteristics Respiratory Depth Respiratory Pattern Blood Pressure 161/89 H 162/103 H 141/82 H Blood Pressure Mean 113 122 101 Pulse Oximetry 99 99 100 Oxygen Delivery Method Oxygen Flow Rate 05/04/19 17:26 05/04/19 17:30 Temperature Temperature Source Sepsis Recent Fever Within 48 Hours Sepsis Action Taken by Nursing Pulse Rate 92 H 91 H Pulse Rate from SpO2 Sensor 92 H 92 H Respiratory Rate 24 17 Respiratory Effort / Characteristics Respiratory Depth Respiratory Pattern Blood Pressure 163/79 H Blood Pressure Mean 107 Pulse Oximetry 99 96 Oxygen Delivery Method Oxygen Flow Rate General: Non-ill appearing older female in no acute distress. HEENT: Normal cephalic atraumatic. Pupils are equal round and reactive to light. Extraocular movements are intact. Oropharynx is pink with moist mucous m embranes. No swelling of the mouth lips or tongue. Neck: Supple with a midline trachea. No meningeal signs or stiffness, no JVD or bruits. No Stridor. Chest: Clear to auscultation bilaterally. No wheezes or rhonchi. No increased work of breathing. Heart: regular rate and rhythm. Abdomen: Soft nontender, nondistended without rebound guarding or rigidity. Extremities: No cyanosis clubbing or edema. No calf tenderness or asymmetry Spine/Back. Non tender to palpation. No CVA tenderness Skin: Good turgor without rashes. Neurologic exam: Cranial nerves two through 12 are intact. Motor is intact and symmetrical throughout. Decreased sensation of the left leg diffusely. Course 1530: Past medical records reviewed. The patient was evaluated in room B8. A complete history and physical exam was performed. 1630: I reevaluated the patient and she was doing well. She states that her pain is better with the Nitroglycerin. 1651: I reevaluated the patient and her pain is almost gone, but her BSG is over 500. I ordered fluids and Insulin at this time. I updated the patient on her test results and the treatment plan. She verbally agrees and understands. 1703: I [facility] the patient's [facility] will [facility] the patient for further management. Consultations Consultation #1: I discussed the patient's case with Treva Marcos PA-C - [facility] Hospitalist. She will evaluate the patient for further management. Time: 17:03 Administered Medications Albuterol (Duoneb) 3 ml NEB Q6R JOHN Stop: 06/03/19 19:59 Last Admin: 05/04/19 18:57 Dose: 3 ml Documented by: [id number] Discontinued Medications Aspirin (Aspirin Chew) 81 mg PO NOW STA Stop: 05/04/19 18:54 Last Admin: 05/04/19 18:58 Dose: Not Given Documented by: [id number] Aspirin (Aspirin Chew) Confirm Administered Dose 81 mg .ROUTE .STK-MED ONE Stop: 05/04/19 18:52 Last Admin: 05/04/19 18:57 Dose: 81 mg Documented by: [id number] Sodium Chloride (Nss 1000ml) 1,000 mls @ 999 mls/hr IV .Q1H1M ONE Stop: 05/04/19 17:51 Last Infusion: 05/04/19 18:27 Dose: 0 mls/hr Documented by: [id number] Admin: 05/04/19 17:12 Dose: 999 mls/hr Documented by: [id number] Insulin Human Regular (Novolin R U-100 Per Unit) 10 units IV NOW STA Stop: 05/04/19 16:52 Last Admin: 05/04/19 17:13 Dose: 10 units Documented by: [id number] Cosigned by: [id number] Nitroglycerin (Nitrostat) 0.4 mg SL NOW STA Stop: 05/04/19 15:37 Last Admin: 05/04/19 15:42 Dose: 0.4 mg Documented by: [id number] Nitroglycerin (Nitrostat) 0.4 mg SL PRN PRN PRN Reason: Chest Pain Stop: 06/03/19 16:27 Last Admin: 05/04/19 16:40 Dose: 0.4 mg Documented by: [id number] Admin: 05/04/19 16:31 Dose: 0.4 mg Documented by: [id number] Medical Decision Making Differential Diagnosis Differential diagnoses include acute coronary syndrome, arrhythmia, CVA, dissec tion, electrolyte or metabolic abnormality. Medical Records Attestation: I reviewed the patient's medical records. Home Medications Current Medication List: was personally reviewed by me Laboratory Data Attestation: I reviewed the patient's lab results. Result diagrams: 05/04/19 15:52 05/04/19 15:52 Lab Results 05/04/19 05/04/19 05/04/19 Range/Units 15:52 15:52 15:52 WBC 9.95 (4.8-10.8) K/uL RBC 3.90 L (4.2-5.4) M/uL Hgb 12.0 (12.0-16.0) g/dL Hct 34.2 L (37-47) % MCV 87.7 (80-100) fL MCH 30.8 (25-34) pg MCHC 35.1 (32-36) g/dL RDW Std Deviation 42.9 (36.4-46.3) fL RDW Coeff of Stormy 13.3 (11.5-14.5) % Plt Count 221 (130-400) K/uL MPV 9.4 (7.4-10.4) fL Immature Gran % (Auto) 0.2 % Neut % (Auto) 52.4 % Lymph % (Auto) 33.1 % [place] % (Auto) 8.9 % Eos % (Auto) 4.7 % Baso % (Auto) 0.7 % Immature Gran # (Auto) 0.02 (0.00-0.02) K/uL Neut # (Auto) 5.21 (1.4-6.5) K/uL Lymph # (Auto) 3.29 (1.2-3.4) K/uL [place] # (Auto) 0.89 H (0.11-0.59) K/uL Eos # (Auto) 0.47 (0-0.5) K/uL Baso # (Auto) 0.07 (0-0.2) K/uL PT 11.9 (9.0-12.0) Seconds INR 1.2 H (0.9-1.1) APTT 26.8 (21.0-31.0) Seconds PTT Ratio 1.0 Sodium 133 L (136-145) mmol/L Potassium 4.5 (3.5-5.1) mmol/L Chloride 105 (98-107) mmol/L Carbon Dioxide 20 L (21-32) mmol/L Anion Gap 8.0 (3-11) BUN 25 H (7-18) mg/dl Creatinine 1.52 H (0.6-1.2) mg/dl Est Cr Clr Drug Dosing 28.5 ml/min Est GFR ( Amer) 37.7 Est GFR (Non-Af Amer) 32.5 BUN/Creatinine Ratio 16.3 (10-20) Glucose 515 H* (70-99) mg/dl Calcium 8.0 L (8.5-10.1) mg/dl Total Bilirubin 0.4 (0.2-1) mg/dl AST 69 H (15-37) U/L ALT 68 (12-78) U/L Alkaline Phosphatase 184 H (45-117) U/L Troponin I < 0.015 (0-0.045) ng/ml Total Protein 6.5 (6.4-8.2) gm/dl Albumin 3.0 L (3.4-5.0) gm/dl Globulin 3.5 (2.5-4.0) gm/dl Albumin/Globulin Ratio 0.9 (0.9-2) Lipase 134 (73-393) U/L Beta-Hydroxybutyric Acd 2.43 (0.2-2.81) mg/dl Imaging Data Radiologist's Impression: Radiology results as stated below per my review and the radiologist's interpretation: XR chest 1V portable HISTORY: 78 years-old Female Chest Pain acute atypical chest pain COMPARISON: Chest radiograph 02/21/2019 TECHNIQUE: Portable AP view of the chest FINDINGS: Stable positioning of the right internal jugular [id number] catheter. Cardiac silhouette is enlarged, unchanged. Mild right hemidiaphragmatic elevation. Calcification of the thoracic aortic arch. Chronic interstitial coarsening of the lung bases. No pneumothorax, pleural effusion or overt pulmonary edema. Degenerative changes of the shoulders and spine. IMPRESSION: No acute process. The above report was generated using voice recognition software. It may contain grammatical, syntax or spelling errors. Electronically signed by: Rob Juarez M.D. 05/04/2019 4:07 PM ECG Data Attestation: I personally reviewed and interpreted this ECG as follows: Indication: chest pain Rate (beats per minute): 92 Rhythm: normal sinus Findings: no PAC, no PVC, no ST depression, no ST elevation, no acute ischemic change and no ectopy Comparison ECG Date: from (02/18/2019) Change: no significant change Blood Pressure Blood Pressure Findings: Elevated blood pressure Blood Pressure Disposition: further management by hospitalist [facility] Narrative This patient comes in as described above. she sent over from her doctor's office after having chest pain and she went to her doctor's office that she has had left leg numbness has been going on for at least a week. that is not new today, there are no other neurologic deficits. she has a history of stroke as well as cardiac disease and diabetes. Her EKG did not show any ischemic changes. She did get a nitroglycerin as well as took aspirin and the pain had come down. She was given additional sublingual nitro here in the pain resolved she is resting very comfortably. Chest x-ray does not suggest congestive heart failure, pneumonia, or pneumothorax. She was found to have a blood sugar of greater than 500. She has a mildly low CO2 however does not have any anion gap or anything to suggest DKA. She was given insulin regular insulin 10 units IV. Her initial troponin is negative. In regards to her left leg tingling, this been going on for a week and she will likely need neuro imaging. I did not send her over from the ER as she was having chest pain at the time and did not want to send her to the CAT scanner where she would be not monitored. She seems a feeling much better. I did discuss this with the [facility] hospitalist they want to see her in the ER for further inpatient treatment and evaluation. Impression & Plan Chest pain, unspecified, Angina pectoris, unstable, Acute hyperglycemia, Numbness and tingling of left leg Discharge Plan Visit Data *Final* Discharge Date/Time: 05/04/19 19:21 Chief Complaint: Chest Pain Stated Complaint: HEART ATTACK ED Provider: Toño Correa Discharge Problem: Chest pain, unspecified, Angina pectoris, unstable, Acute hyperglycemia, Numbness and tingling of left leg Patient Disposition: Being Evaluated by Hospitalist Discharge Problem: Chest pain, unspecified Qualifiers: Chest pain type: precordial pain Qualified Code(s): R07.2 - Precordial pain The scribe's documentation has been prepared under my direction and personally reviewed by me in its entirety. I confirm that the note above accurately r eflects all work, treatment, procedures, and medical decision making performed by me.
[2019-05-04] MEDS ORDERED: PHARMACY GLYCEMIC MGMT CONSULT PRN (18:24)
[2019-05-04] MEDS ORDERED: ASPIRIN 81 MG CHEW ONE (18:51)
[2019-05-04] MEDS ORDERED: ASPIRIN 81 MG CHEW PO STA (18:53)
[2019-05-04] MEDS: ALBUT/IPRATROP 3MG/0.5MG NEB 3 ML VIAL NEB SCH (18:57)
[2019-05-04] MEDS ORDERED: INSULIN GLARGINE SOLOSTAR 100 UNITS/ML 3 ML PEN SC STA (19:21)
--- NOTE | 2019-05-04 20:45 | Pharmacy Report ---
Glycemic Control Consultation - Date of Service May 04, 2019 - Scope Scope: Glycemic Pharmacist consulted by Dr Min on 05/04/19 for glycemic control and to write orders per [facility] inpatient glycemic control protocol - Objective Weight: 73.2 kg Accuchecks BSG (last 24hrs): 05/04/19 05/04/19 05/04/19 15:52 18:46 19:26 Glucose 515 H* POC Glucose 224 H 226 H Laboratory Data (last 24hrs): 05/04/19 15:52 Potassium 4.5 Carbon Dioxide 20 L Anion Gap 8.0 Creatinine 1.52 H Est Cr Clr Drug Dosing 28.5 Beta-Hydroxybutyric Acd 2.43 - Recent Pertinent Medications Outpatient Anti-diabetic Regimen: * 70/30 55U AM, 35u PM * A1c = 9.4 % 01/31/19 - Assessment & Plan Assessment & Plan: ASSESSMENT: * Ms. Kaplan is a 78yo F known to the pharmacy glycemic service from previous admissions. PMHx: consistent with micro/macrovascular complications, among many other co morbidities. She p/w chest pxn. BSGs in the ER >500mg/dL. BHB, AG both WNL. Serum osmolarity slightly hyperosmolar, 304mOsm/kg. Spoke with attending re: our glycemic plan moving forward. She will likely not need an IV insulin infsn with standing IVFs. Nss @80cc/hr ordered and ongoing. We will d/c her premixed 70/30 insulin and utilize lantus/novolog * Most recent A1C is 9.4% from 01/31/19 PLAN FOR INPATIENT GLYCEMIC CONTROL: * Basal insulin * Lantus 50 u x1 this evening * Bolus insulin * NovoLog per scale ACHS or Q6hrs while NPO * Goal Range: Low 120 mg/dL - High 160 mg/dL * Correction Factor: 10 mg/dL/unit * Nutritional / Prandial insulin per carb ratio of 1 unit per 4 grams CHO consumed * adding 00,04 checks * Please note that the plan above was derived based on current level of insulin resistance and hospital stress. These recommendations are appropriate for inpatient admission only. Plan of care upon discharge will need to be reassessed to avoid potential outpatient hypo/hyperglycemia. Thank you.
[2019-05-04] MEDS ORDERED: INSULIN HUMAN 70% NPH/30% REGULAR SQ SCH (21:00)
[2019-05-04] MEDS: INSULIN ASPART 100 UNITS/ML 3 ML PEN SC SCH (21:07)
[2019-05-04] MEDS: SODIUM CHLORIDE 0.9% 1000ML 1,000 ML IV SCH (21:08)
[2019-05-04] MEDS: HEPARIN SOD 5,000 UNIT/0.5 ML VIAL SQ SCH (21:08)
[2019-05-04] MEDS: TRAZODONE HCL 50 MG TAB PO SCH (21:09)
[2019-05-04] MEDS: MIRTAZAPINE SOLTAB 15 MG PO SCH (21:10)
[2019-05-04] MEDS: ROPINIROLE HCL 1 MG TABLET PO SCH (21:10)
[2019-05-04] MEDS: GABAPENTIN 300 MG CAP PO SCH (21:10)
[2019-05-04] MEDS: METOPROLOL TARTRATE 50 MG TAB PO SCH (21:20)
[2019-05-04] MEDS: LORazepam 0.5 MG TAB PO PRN (21:20)
[2019-05-04] MEDS ORDERED: MoRPHine SULFATE 4 MG/ML 1 ML CARP\\VIAL IV STA (21:22)
[2019-05-04] MEDS ORDERED: ONDANSETRON INJ 2 MG/ML 2 ML VIAL IV PRN (21:32)
[2019-05-04 22:29] LABS: Alanine Aminotransferase 63 U/L (12-78); Albumin Globulin Ratio 0.7 (0.9-2); Albumin Level 2.6 gm/dl (3.4-5.0); Alkaline Phosphatase 170 U/L (45-117); Aspartate Aminotransferase 57 U/L (15-37); BUN Creatinine Ratio 15.7 (10-20); Bilirubin,Total 0.2 mg/dl (0.2-1); Blood Urea Nitrogen 21 mg/dl (7-18); Calcium 8.2 mg/dl (8.5-10.1); Carbon Dioxide 19 mmol/L (21-32); Chloride 109 mmol/L (98-107); Creatinine Clr Calc Pharmacy 39.4 ml/min; Est GFR (African American) 43.1; Est GFR (Non-African American) 37.2; Globulin 3.5 gm/dl (2.5-4.0); Glucose 313 mg/dl (70-99); Potassium 3.9 mmol/L (3.5-5.1); Sodium 139 mmol/L (136-145); Total Protein 6.1 gm/dl (6.4-8.2); Troponin I < 0.015 ng/ml (0-0.045)
[2019-05-04 22:41] LABS: Beta-Hydroxybutyrate 2.04 mg/dl (0.2-2.81)
[2019-05-04] MEDS ORDERED: INSULIN ASPART 100 UNITS/ML 3 ML PEN SC STA (23:26)
[2019-05-05] MEDS: INSULIN ASPART 100 UNITS/ML 3 ML PEN SC SCH ×6 (01:47→21:11)
[2019-05-05] MEDS: ALBUT/IPRATROP 3MG/0.5MG NEB 3 ML VIAL NEB SCH ×4 (02:14→19:10)
[2019-05-05] MEDS: NITROGLYCERIN SL 0.4 MG/TAB TAB SL PRN (02:32)
[2019-05-05 05:45] LABS: Basophils % (auto) 1.1 %; Eosinophils # (auto) 0.68 K/uL (0-0.5); Eosinophils % (auto) 7.5 %; Hematocrit (blood only) 30.9 % (37-47); Hemoglobin 10.7 g/dL (12.0-16.0); Immature Granulocytes # (auto) 0.02 K/uL (0.00-0.02); Immature Granulocytes % (auto) 0.2 %; Lymphocytes # (auto) 3.51 K/uL (1.2-3.4); Lymphocytes % (auto) 38.7 %; Mean Corpuscular Hgb Conc 34.6 g/dL (32-36); Mean Corpuscular Volume 87.5 fL (80-100); Monocytes # (auto) 0.92 K/uL (0.11-0.59); Monocytes % (auto) 10.1 %; Neutrophils # (auto) 3.84 K/uL (1.4-6.5); Neutrophils % (auto) 42.4 %; Platelet Count 204 K/uL (130-400); RDW Coefficient of Variation 13.3 % (11.5-14.5); RDW Standard Deviation 42.8 fL (36.4-46.3); Red Blood Count 3.53 M/uL (4.2-5.4); White Blood Count 9.07 K/uL (4.8-10.8)
[2019-05-05 06:06] LABS: Estimated Average Glucose 212 mg/dl
[2019-05-05 06:12] LABS: Alanine Aminotransferase 60 U/L (12-78); Albumin Level 2.5 gm/dl (3.4-5.0); Aspartate Aminotransferase 54 U/L (15-37); BUN Creatinine Ratio 14.9 (10-20); Blood Urea Nitrogen 18 mg/dl (7-18); Calcium 8.2 mg/dl (8.5-10.1); Carbon Dioxide 23 mmol/L (21-32); Chloride 112 mmol/L (98-107); Creatinine Clr Calc Pharmacy 33.7 ml/min; Est GFR (African American) 48.7; Glucose 114 mg/dl (70-99); Potassium 4.1 mmol/L (3.5-5.1); Sodium 142 mmol/L (136-145)
[2019-05-05 06:16] LABS: Albumin Globulin Ratio 0.7 (0.9-2); Alkaline Phosphatase 150 U/L (45-117); Bilirubin,Total 0.2 mg/dl (0.2-1); Globulin 3.4 gm/dl (2.5-4.0); Total Protein 5.9 gm/dl (6.4-8.2); Troponin I < 0.015 ng/ml (0-0.045)
[2019-05-05] MEDS: SODIUM CHLORIDE 0.9% 1000ML 1,000 ML IV SCH (07:34)
[2019-05-05] MEDS: ATORVASTATIN 40 MG TAB PO SCH (07:35)
[2019-05-05] MEDS: METOPROLOL TARTRATE 50 MG TAB PO SCH ×2 (07:35→21:07)
[2019-05-05] MEDS: AMLODIPINE BESYLATE 5 MG TAB PO SCH (07:35)
[2019-05-05] MEDS: LOSARTAN POTASSIUM 50 MG TAB PO SCH (07:35)
[2019-05-05] MEDS: ISOSORBIDE MONO EXTENDED REL 30 MG TABCR PO SCH (07:35)
[2019-05-05] MEDS: GABAPENTIN 300 MG CAP PO SCH ×3 (07:35→21:08)
[2019-05-05] MEDS: ASPIRIN 81 MG ECTAB PO SCH (07:36)
[2019-05-05] MEDS: CLOPIDOGREL BISULFATE 75 MG TAB PO SCH (07:36)
[2019-05-05] MEDS: HEPARIN SOD 5,000 UNIT/0.5 ML VIAL SQ SCH ×2 (08:06→21:06)
--- NOTE | 2019-05-05 08:50 | Pharmacy Report ---
Pharmacy Glycemic Short Note 2 - Date of Service May 05, 2019 - Glycemic Short BSG Results (Last 24 hours): 05/04/19 05/04/19 05/04/19 15:52 18:46 19:26 Glucose 515 H* POC Glucose 224 H 226 H 05/04/19 05/05/19 05/05/19 21:51 01:26 02:10 Glucose 313 H* POC Glucose 98 99 05/05/19 05/05/19 05/05/19 04:06 05:24 07:46 Glucose 114 H POC Glucose 126 H 113 H OUTPATIENT ANTIDIABETIC REGIMEN: * Novolin 70/30 premixed insulin: 55 units SQ AM + 35 units SQ PM * Total daily outpatient dose = ~ 90 units/day * A1c = 9% on 05/04/19 ASSESSMENT: * 78yo T2DM female known to pharmacy from previous admissions/glycemic consults * Pt with near-adequate outpatient glycemic control - goal A1c likely ~8% based on age/co-morbidities. A1c has improved over the past year 10.3% --> 9.4% --> 9% currently. * Outpatient regimen is premixed basal/prandial insulin of Novolin 70/30 mix insulin. * Pre-mixed insulin is difficult to titrate since it is already in a fixed distribution of basal:prandial insulin. Continuing pre-mixed insulin for admission typically lead to hypoglycemia d/t changing PO status but rapid acting insulin is unable to be held. * Home regimen will be held for admission per pharmacy consult. Will utilize recommended regimen of SQ basal bolus insulin regimen with Lantus + NovoLog (CF+CR) * Pt with severe hyperglycemia on admission which is now resolved with Q4h NovoLog + full dose of Lantus. Pt requiring ~ 100 units/insulin per day * Will continue to titrate based on BSG trends. PLAN FOR INPATIENT GLYCEMIC CONTROL: * Hold outpatient oral diabetes medications * Basal insulin * Lantus 50 units SQ Q24hrs - will give dose with dinner which is ~24hrs after first dose * Bolus insulin * NovoLog per scale ACHS or Q6hrs while NPO * Goal Range: Low 120 mg/dL - High 160 mg/dL * Correction Factor: 10 mg/dL/unit * Nutritional / Prandial insulin per carb ratio of 1 unit per 4 grams CHO consumed PLAN FOR DISCHARGE: * May need to increase outpatient doses of premixed insulin to improve A1c to goal of ~8%
[2019-05-05] MEDS ORDERED: INSULIN HUMAN 70% NPH/30% REGULAR SQ SCH (09:00)
--- NOTE | 2019-05-05 12:12 | Cardiology Consultation ---
Date of Consultation May 05, 2019 Assessment & Plan (1) Chest pain: The patient describes symptoms that are concerning for angina Thursday night into Thursday night. These were relieved with sublingual nitroglycerin. In the meantime, patient has been angina free, with stable EKG findings, negative cardiac enzymes on a serial basis. No acute changes noted on echocardiogram. Was significant finding on my physical exam is wheezing, and I do not believe this is due to volume overload or congestive heart failure. She had been hyperglycemic on presentation, and this is improved. She has a history of moderate persistent asthma/COPD per her outpatient chart. I discussed the case with Dr. Min. I observed the patient had conversational dyspnea, and wheezing with inspiration. I do not think this is a cardiac symptom, and I think it needs to be optimized before further ischemic work-up can be pursued. Recommend antibiotics and inhaled bronchodilators, corticosteroids. Hopefully the patient will not have a cardiac side effects such as atrial fibrillation with this treatment. Continue her outpatient cardiac medications including aspirin, clopidogrel, atorvastatin, isosorbide mononitrate extended release, losartan, and amlodipine. She does have an a port in place, I checked with nuclear medicine, and this would be suitable to be used as access for a pharmacologic nuclear stress test. Based on the patient's hospital course, anticipate that she will need to have her lungs optimized, and maybe have stress test in a few days, perhaps even on Thursday. History of Present Illness Attending Physician: Jacky Min MD History of Present Illness Angelica Kaplan is a 78 year old female seen in cardiology consultation per the request of Dr. Jacky Min for the evaluation of chest pain. 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 Su of our practice with most recent follow-up visit having been in February 2019. The patient presented to [facility] in early January, with a non- ST segment elevation myocardial infarction. She underwent cardiac catheterization with drug-eluting stent placement to the circumflex coronary artery and right coronary artery on 01/26/2019. During that hospital stay she was also noted to have been intermittent left bundle branch block which was a new diagnosis. Cardiac history is otherwise notable for mild to moderate aortic valve stenosis, moderate mitral regurgitation, hypertension, and dyslipidemia. She had been discharged post myocardial infarction, and was readmitted with findings of a frontal lobe stroke shortly thereafter. She underwent ongoing medication therapy with aspirin and clopidogrel. A mild troponin elevation was noted during the stroke hospitalization, and an echocardiogram performed during that time revealed stable findings. The patient was admitted via the emergency room yesterday after presenting to her primary care provider's office. The night before that, she had had on and off again heaviness in her chest for which she took 3 sublingual nitroglycerin tablets. Yesterday, her main concern at the time of her PCP visit was he sensation of "electrical impulses "in her left lower leg possibly consistent with neuropathy. Due to her recent cardiac symptoms, as well as the observation of the patient appeared to have diaphoresis she was referred for further evalu ation. EKG performed on serial basis thus far this hospital stay reveals sinus rhythm with poor R wave progression consistent with age-indeterminate septal infarction, not significantly changed compared to prior. An echocardiogram reveals moderate concentric left ventricular hypertrophy with moderate aortic valve stenosis, and normal LVEF, unchanged compared to prior. Moderate mitral regurgitation was also noted unchanged compared to prior. At present, the patient has no chest discomfort. She does note conversational shortness of breath, and wheezing when she takes a deep breath. Allergies Allergy/AdvReac Type Severity Reaction Status Date / Time Iodinated Contrast- Oral and Allergy Severe RASH TO Verified 05/04/19 17:01 IV Dye IVP DYE,NAUSEA, FAINTING, COUGHING, GAGGING, HEADACH Sulfa (Sulfonamide Allergy Severe HIVES, Verified 05/04/19 17:01 Antibiotics) FACIAL AND ARM SWELLING cerivastatin Allergy Intermediate HIVES Verified 05/04/19 17:01 codeine Allergy Intermediate "PRICKLY Verified 05/04/19 17:01 RASH" hydroxyzine Allergy Intermediate N/V Verified 05/04/19 17:01 latex Allergy Intermediate DERMATITIS-PT Verified 05/04/19 17:01 TOLERATED A LATEX CATHETER 03/26/08 Bactrim Allergy Mild RASH Verified 04/29/18 14:40 diphenhydramine Allergy Mild RASH; Verified 05/04/19 17:01 SLEEPINESS WITH "PHARBEDRYL" loratadine Allergy Mild HIVES Verified 05/04/19 17:01 sulfamethoxazole Allergy Mild RASH Verified 05/04/19 17:01 trimethoprim Allergy Mild RASH Verified 02/18/19 13:50 prednisone Allergy Unknown elevates Verified 02/18/19 13:50 blood sugar tetanus toxoid, adsorbed AdvReac Intermediate SWELLING Verified 02/18/19 13:50 AT INJECTION SITE alprazolam AdvReac Unknown "SLEEPY Verified 02/18/19 13:50 STUPER" metformin AdvReac Unknown DIARRHEA Verified 02/18/19 13:50 morphine AdvReac Unknown VOMITING Verified 02/18/19 13:50 simvastatin AdvReac Unknown COUGH, Verified 02/18/19 13:50 "DISCOMFORT" Home Medications Home Medications Medication Instructions Recorded Confirmed Type amlodipine [Norvasc] 10 mg PO QAM 08/24/18 05/04/19 History aspirin 1 tab PO QPM 08/24/18 05/04/19 History dicyclomine 10 mg PO TID PRN 08/24/18 05/04/19 History docusate sodium [Colace] 100 mg PO DAILY PRN 08/24/18 05/04/19 History fluticasone propionate [Flonase 2 spray INTRANASAL QPM PRN 08/24/18 05/04/19 History Allergy Relief] gabapentin [Neurontin] 800 mg PO HS 08/24/18 05/04/19 History lorazepam [Ativan] 0.5 mg PO Q6 PRN 08/24/18 05/04/19 History magnesium oxide 400 mg PO QAM 08/24/18 05/04/19 History ondansetron HCl [Zofran] 4 mg PO QID PRN 08/24/18 05/04/19 History ranitidine HCl [Zantac 75] 75 mg PO BID 08/24/18 05/04/19 History trazodone 50 mg PO HS 08/24/18 05/04/19 History albuterol sulfate 2.5 mg INHALATION QID PRN 01/26/19 05/04/19 History levocetirizine [Xyzal] 2.5 mg PO QPM 01/26/19 05/04/19 History losartan 100 mg PO QAM 01/26/19 05/04/19 History mirtazapine 45 mg PO HS 01/26/19 05/04/19 History ropinirole 1 mg PO HS 01/26/19 05/04/19 History atorvastatin 40 mg PO QAM #30 tab 01/28/19 05/04/19 Rx clopidogrel 75 mg PO QAM #30 tab 01/28/19 05/04/19 Rx isosorbide mononitrate 30 mg PO QAM #30 tab 01/28/19 05/04/19 Rx nitroglycerin [Nitrostat] 0.4 mg SUBLINGUAL PRN PRN #30 tab 01/28/19 05/04/19 Rx metoprolol tartrate [Lopressor] 25 mg PO BID #0 tab 02/02/19 05/04/19 Rx albuterol sulfate [Proventil HFA] 2 puff INHALATION Q4 PRN 05/04/19 05/04/19 History insulin NPH and regular human 35 unit SUBCUT QPM 05/04/19 05/04/19 History [Novolin 70/30 U-100 Insulin] insulin NPH and regular human 55 unit SUBCUT QAM 05/04/19 05/04/19 History [Novolin 70/30 U-100 Insulin] Patient History Medical History Acute CVA (cerebrovascular accident) Elevated troponin Weakness Pre-syncope Leukocytosis Pneumonia Valvular heart disease Non-STEMI (non-ST elevated myocardial infarction) Left bundle branch block Giant cell arteritis (Resolved) Gastroparesis (Chronic) Dyslipidemia (Chronic) Depression (Chronic) HTN (hypertension) (Chronic) Insomnia (Chronic) RLS (restless legs syndrome) (Chronic) Peripheral neuropathy (Chronic) Pancreatic cyst (Chronic) Anxiety (Chronic) COPD (chronic obstructive pulmonary disease) (Chronic) Diabetes mellitus, type II (Chronic) Sleep apnea (Chronic) Chronic pancreatitis (Chronic) Cerebrovascular disease (Chronic) "history stroke and TIA" L sided weakness. Fatty liver (Chronic) Esophageal dysmotility (Chronic) Gastroparesis (Chronic) Pancreatic divisum (Chronic) CKD (chronic kidney disease), stage III (Chronic) Aortic stenosis (Chronic) mild. Osteoarthritis (Chronic) Seasonal allergies (Chronic) Pancreatitis Surgical History History of cataract surgery (Chronic) both eyes History of ERCP (Chronic) x3 with stents. ERCP 04/30/18. MAC 3, grade 2 view. 7.0 ETT placed. No issues. History of bilateral tubal ligation (Chronic) History of colonoscopy (Chronic) S/P cardiac catheterization Family History Daughter No problems noted. Father Family history of diabetes mellitus Family/Other Family history of diabetes mellitus Mother Family history of diabetes mellitus Grandfather Family history of diabetes mellitus Grandmother Family history of diabetes mellitus Social History Preferred Language: Yi Communication Ability: Effective Outcomes Manager Required: No Beliefs That Will Affect Care: None marital status: / Current Living Situation: Alone Current Living Situation Comment: [birth year]uary 21, no longer has drivers license - stroke Other Information That Helps Us Care for You: No Feels Safe at Home: Yes Safety Concerns: Feels Safe At This Time Smoking Status: Never smoker Second Hand Exposure: No Hx Alcohol Use: No Hx Substance Use: No Physical Exam Physical Exam: General: no acute distress and stated age Eyes: conjunctiva are pink and non-injected, sclera clear Neck: normal jugular venous pulse, no hepatojugular reflux Chest: normal shape and normal respiratory effort Right-sided a port in place due to history of poor IV access Lungs: Expiratory wheezing noted in the mid and apical lung page Cardiac Exam: - regular heart sounds, no murmurs, rubs, or gallops, no jugular venous distention Abdomen: abdomen soft, non-tender, no abnormal masses and no hepatosplenomegaly Extremities: no edema and no cyanosis Neuro:awake, coversant, follows commands, no focal motor deficits Psych: appropriate affect and insight. Results & Data Vital Signs (Past 12 Hours) Vital Signs Temp Pulse Pulse Resp BP Pulse Ox 05/05/19 10:55 36.1 C L 77 18 147/70 H 96 05/05/19 08:00 74 05/05/19 07:30 36.8 C 77 18 160/73 H 94 05/05/19 02:23 37.5 C 73 19 158/71 H 95 Laboratory Results Cardiac Enzymes 05/04/19 05/04/19 05/05/19 Range/Units 15:52 21:51 05:24 AST 69 H 57 H 54 H (15-37) U/L Troponin I < 0.015 < 0.015 < 0.015 (0-0.045) ng/ml Coagulation 05/04/19 Range/Units 15:52 PT 11.9 (9.0-12.0) Seconds APTT 26.8 (21.0-31.0) Seconds CBC 05/04/19 05/05/19 Range/Units 15:52 05:24 WBC 9.95 9.07 (4.8-10.8) K/uL RBC 3.90 L 3.53 L (4.2-5.4) M/uL Hgb 12.0 10.7 L (12.0-16.0) g/dL Hct 34.2 L 30.9 L (37-47) % Plt Count 221 204 (130-400) K/uL Neut # (Auto) 5.21 3.84 (1.4-6.5) K/uL Lymph # (Auto) 3.29 3.51 H (1.2-3.4) K/uL [place] # (Auto) 0.89 H 0.92 H (0.11-0.59) K/uL Eos # (Auto) 0.47 0.68 H (0-0.5) K/uL Baso # (Auto) 0.07 0.10 (0-0.2) K/uL Comprehensive Metabolic Panel 05/04/19 05/04/19 05/05/19 Range/Units 15:52 21:51 05:24 Sodium 133 L 139 142 (136-145) mmol/L Potassium 4.5 3.9 4.1 (3.5-5.1) mmol/L Chloride 105 109 H 112 H (98-107) mmol/L Carbon Dioxide 20 L 19 L 23 (21-32) mmol/L BUN 25 H 21 H 18 (7-18) mg/dl Creatinine 1.52 H 1.36 H 1.23 H (0.6-1.2) mg/dl Glucose 515 H* 313 H* 114 H (70-99) mg/dl Calcium 8.0 L 8.2 L 8.2 L (8.5-10.1) mg/dl AST 69 H 57 H 54 H (15-37) U/L ALT 68 63 60 (12-78) U/L Alkaline Phosphatase 184 H 170 H 150 H (45-117) U/L Total Protein 6.5 6.1 L 5.9 L (6.4-8.2) gm/dl Albumin 3.0 L 2.6 L 2.5 L (3.4-5.0) gm/dl Intake and Output 05/04/19 05/05/19 05/05/19 22:59 06:59 14:59 Intake Total 1300 / 1300 1100 / 1100 Output Total 300 / 300 600 / 600 Balance 1000 / 1000 500 / 500 Intake: IV 1000 / 1000 800 / 800 Nss 1000ML 1,000 ml @ 80 mls/hr 1000 / 1000 800 / 800 IV .[id number] [facility] Rx#:[id number] Oral 300 / 300 300 / 300 Output: Urine 300 / 300 600 / 600 Other: Weight 73.2 kg 73.2 kg Diagnostic Findings EKG this morning 05/05/2019 revealed normal sinus rhythm at 72 bpm with age- indeterminate anteroseptal infarction pattern unchanged compared to her prior multiple EKG tracings. Medications Administered Current Inpatient Medications Albuterol (Duoneb) 3 ml NEB Q6R [facility] Stop: 06/03/19 19:59 Last Admin: 05/05/19 07:29 Dose: 3 ml Documented by: Amlodipine Besylate (Norvasc) 10 mg PO QAM [facility] Stop: 06/04/19 08:59 Last Admin: 05/05/19 07:35 Dose: 10 mg Documented by: Aspirin (Ecotrin Ectab) 81 mg PO DAILY [facility] Stop: 06/04/19 08:59 Last Admin: 05/05/19 07:36 Dose: 81 mg Documented by: Atorvastatin Calcium ([facility]) [facility] Stop: 06/04/19 08:59 Last Admin: 05/05/19 07:35 Dose: 40 mg Documented by: Clopidogrel Bisulfate (Plavix) 75 mg PO QAM [facility] Stop: 06/04/19 08:59 Last Admin: 05/05/19 07:36 Dose: 75 mg Documented by: Dextrose (Dextrose 50%) 25 - 50 ml IV UD PRN; Protocol PRN Reason: Hypoglycemia Protocol Stop: 06/03/19 17:33 Docusate Sodium (Colace) 100 mg PO DAILY PRN PRN Reason: Constipation Stop: 06/03/19 17:40 Gabapentin (Neurontin) 300 mg PO TID [facility] Stop: 06/03/19 20:59 Last Admin: 05/05/19 07:35 Dose: 300 mg Documented by: Glucagon (Glucagen) 1 mg SQ UD PRN; Protocol PRN Reason: Hypoglycemia Protocol Stop: 06/03/19 17:33 Glucose (Glucose 40%) 15 - 30 gm PO UD PRN; Protocol PRN Reason: Hypoglycemia Protocol Stop: 06/03/19 17:33 Glucose (Dex4 Glucose) 4 - 8 tabs PO UD PRN; Protocol PRN Reason: Hypoglycemia Protocol Stop: 06/03/19 17:33 Heparin Sodium (Porcine) (Heparin Sodium (Porcine)) 5,000 units SQ Q12 [facility] Stop: 06/03/19 20:59 Last Admin: 05/05/19 08:06 Dose: 5,000 units Documented by: Insulin Aspart (Novolog Flexpen) 0 units SC ACHS [facility]; Protocol Stop: 06/03/19 19:29 Last Admin: 05/05/19 11:59 Dose: 23 units Documented by: Insulin Glargine (Lantus Solostar Pen) 50 units SC QDD [facility]; Protocol Stop: 06/04/19 16:29 Isosorbide Mononitrate (Imdur Extended Rel) 30 mg PO QAM [facility] Stop: 06/04/19 08:59 Last Admin: 05/05/19 07:35 Dose: 30 mg Documented by: Lorazepam (Ativan) 0.5 mg PO Q6 PRN PRN Reason: Anxiety Stop: 06/03/19 17:40 Last Admin: 05/04/19 21:20 Dose: 0.5 mg Documented by: Losartan Potassium (Cozaar) 100 mg PO QAM [facility] Stop: 06/04/19 08:59 Last Admin: 05/05/19 07:35 Dose: 100 mg Documented by: Metoprolol Tartrate (Lopressor) 25 mg PO BID [facility] Stop: 06/03/19 20:59 Last Admin: 05/05/19 07:35 Dose: 25 mg Documented by: Mirtazapine (Remeron Solutab) 45 mg PO HS [facility] Stop: 06/03/19 20:59 Last Admin: 05/04/19 21:10 Dose: 45 mg Documented by: Miscellaneous (Carbohydrates For Hypoglycemia) 15 - 30 gm PO UD PRN PRN Reason: Hypoglycemia Treatment Stop: 06/03/19 17:33 Miscellaneous Information (Consult Glycemic Management Pharmacy) 1 ea N/A UD PRN; Protocol PRN Reason: Consult Stop: 06/03/19 18:23 Nitroglycerin (Nitrostat) 0.4 mg SL PRN PRN PRN Reason: chest pain Stop: 06/03/19 17:40 Last Admin: 05/05/19 02:32 Dose: 0.4 mg Documented by: Ondansetron HCl (Zofran) 4 mg IV Q6H PRN PRN Reason: Nausea Stop: 06/03/19 21:31 Last Admin: 05/04/19 21:39 Dose: 4 mg Documented by: Ranitidine HCl (Zantac) 75 mg PO BID [facility] Stop: 06/03/19 20:59 Last Admin: 05/05/19 07:36 Dose: 75 mg Documented by: Ropinirole HCl (Requip) 1 mg PO HS [facility] Stop: 06/03/19 20:59 Last Admin: 05/04/19 21:10 Dose: 1 mg Documented by: Trazodone HCl (Desyrel) 50 mg PO HS [facility] Stop: 06/03/19 20:59 Last Admin: 05/04/19 21:09 Dose: 50 mg Documented by:
[2019-05-05] MEDS ORDERED: LEVALBUTEROL HCL 1.25 MG/3 ML NEB NEB STA (12:37)
[2019-05-05] MEDS ORDERED: CALCIUM CARBONATE 500 MG CHEWABLE TAB PO PRN (16:51)
[2019-05-05] MEDS: INSULIN GLARGINE SOLOSTAR 100 UNITS/ML 3 ML PEN SC SCH (17:09)
[2019-05-05] MEDS ORDERED: predniSONE 20 MG TAB PO STA (17:17)
[2019-05-05] MEDS ORDERED: DOXYCYCLINE HYCLATE 100 MG in DEXTROSE 5% 100 ML IV STA (17:20)
--- NOTE | 2019-05-05 17:25 | Hospitalist Progress Note ---
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 Pt requiring ~ 100 units/insulin per day Will continue to titrate based on BSG trends. -PLAN FOR INPATIENT GLYCEMIC CONTROL: Hold outpatient oral diabetes medications -Basal insulin Lantus 50 units SQ Q24hrs - will give dose with dinner which is ~24hrs after first dose -Bolus insulin NovoLog per scale ACHS or Q6hrs while NPO Goal Range: Low 120 mg/dL - High 160 mg/dL Correction Factor: 10 mg/dL/unit Nutritional / Prandial insulin per carb ratio of 1 unit per 4 grams CHO consumed Diabetic Neuropathy as per history -gabapentin 300 mg TID to give more pain management coverage throughout the day Left leg pain likely due to Sciatica pain -left flank with pain on palpation -left leg pain with tingling x 1 week at home -gabapentin as above -ordered lumbar and left hip X ray to rule out any obvious potential causes of sciatica -continue PT/OT evaluations Chest Pain history of cardiac stents -patient with chest pain (pain is beneath left breast) x 1 day -reports that the chest pain relieved with nitro -troponins negative x 3 and resting echocardiogram without obvious ischemia -seen by cardiology service which recommended nuclear stress testing when breathing is improved -continue home dose aspirin and plavix -continue home dose imdur, metoprolol tartrate, losartan Asthma Coughing -duonebs q6 hours -home dose dulera inhaler -will give IV methylprednisone 40 mg daily to have ease up breathing -admission CXR without evidence of pneumonia, will repeat CXR as breathing has worsened during hospital stay, start doxycline 100 mg IV BID empirically History of stroke -reports residual right arm weakness -continue home dose aspirin and plavix DVT ppx: heparin 5000 unit subc every 12 hours Chronic kidney disease stage III -monitor renal function Full Code Family Obey, granddaughter [phone] Omi, son in law [phone] Subjective Patient was been have more upper respiratory issues during this hospital stay. more coughing. some wheezes. air entry on inhalation and exhalation is tighter. continues to have left leg tingling sensations. no acute chest pain but seen by cardiology service which recommended nuclear stress testing when breathing is improved Physical Exam Constitutional: WD/WN, vitals as above Eyes: PERRL, conjunctivae normal, anicteric sclerae EOM intact bilaterally ENMT: external ear and nose normal, oropharynx normal Neck: trachea midline, no thyromegaly normal visual inspection Respiratory: coughing, wheezes, tighter lung exam on inhalation and exhalation. Cardiovascular: RRR, no murmur, no edema Gastrointestinal (Abdomen): normal bowel sounds, soft, nontender, no hepatosplenomegaly Musculoskeletal: Head/Neck/Chest: normocephalic and head atraumatic Neurologic: PERRL, EOMI, accommodation nl, no face palsy, no dysarthria Results & Data Vital Signs (Past 12 Hours) Vital Signs Temp Pulse Pulse Resp BP Pulse Ox 05/05/19 16:30 85 05/05/19 16:01 36.5 C 87 20 160/82 H 95 05/05/19 14:08 95 05/05/19 13:02 76 16 95 05/05/19 10:55 36.1 C L 77 18 147/70 H 96 05/05/19 08:00 74 05/05/19 07:30 36.8 C 77 18 160/73 H 94
[2019-05-05] MEDS ORDERED: NovoLIN-N (NPH) PER UNIT CHARGE SQ ONE (17:30)
[2019-05-05] MEDS: LORazepam 0.5 MG TAB PO PRN (17:42)
[2019-05-05] MEDS ORDERED: methylPREDNISolone 40 MG in SYRINGE 0 ML IV ONE (17:45)
[2019-05-05] MEDS: ACETAMINOPHEN 65 ML IV PRN (17:50)
[2019-05-05] MEDS ORDERED: INSULIN GLARGINE SOLOSTAR 100 UNITS/ML 3 ML PEN SC ONE (21:00)
[2019-05-05] MEDS: MIRTAZAPINE SOLTAB 15 MG PO SCH (21:07)
[2019-05-05] MEDS: TRAZODONE HCL 50 MG TAB PO SCH (21:07)
[2019-05-05] MEDS: ROPINIROLE HCL 1 MG TABLET PO SCH (21:09)
--- NOTE | 2019-05-05 22:29 | XRay Report ---
XR chest 2V routine CLINICAL HISTORY: 78 years-old Female presenting with coughing, rule out lung infiltrates. TECHNIQUE: Portable upright AP view of the chest was obtained. COMPARISON: 05/04/2019. FINDINGS: Right internal jugular or right subclavian Mediport terminates at the cavoatrial junction and has bee n accessed. Atherosclerosis of the aortic arch. Cardiac silhouette mildly enlarged. Low lung volumes. Minimal basilar opacities. No pleural effusion or pneumothorax. Osseous structures normal. Cholecyst ectomy clips noted. IMPRESSION: 1. Low lung volumes with minimal bibasilar atelectasis. 2. Mild cardiomegaly. 3. No focal infiltrate to suggest pneumonia. Electronically signed by: Paul Coronado M.D. 05/05/2019 10:28 PM
--- NOTE | 2019-05-05 22:31 | XRay Report ---
XR lumbar spine min 4V routine CLINICAL HISTORY: 78 years-old Female presenting with left leg pain, rule out fracture or obvious cau ses of sciatica. TECHNIQUE: Frontal, bilateral oblique, lateral, coned-down lateral views of the lumbar spine were obt ained. COMPARISON: 01/28/2016. FINDINGS: No significant scoliosis. No pars defect is appreciated. Normal lumbar lordosis. Anterior osteophytos is evident. Vertebral bodies maintain normal height and alignment. Intervertebral disc height loss gr eatest at L5-S1 and to a mild degree at L2-3. Vacuum disc phenomenon also noted at L5-S1. Osseous klarissa ral foraminal narrowing may be present at L5-S1. No radiographic evidence of fracture or subluxation. Atherosclerosis of the abdominal aorta. Cholecystectomy clips noted. Moderate stool burden throughout the colon. IMPRESSION: 1. No radiographic evidence of acute osseous injury. 2. Multilevel degenerative changes with suspected osseous neural foraminal narrowing at L5-S1. 3. Moderate stool burden suggest constipation. Electronically signed by: Paul Coronado M.D. 05/05/2019 10:30 PM
--- NOTE | 2019-05-05 22:33 | XRay Report ---
XR hip LT 2-3V w pelvis CLINICAL HISTORY: 78 years-old Female presenting with left leg pain, rule out fracture or obvious cau se of sciatica. TECHNIQUE: Single frontal view of the pelvis and frontal and frog-leg lateral views of the left hip w ere obtained. COMPARISON: Correlation made to CT of abdomen and pelvis from 04/13/2018. FINDINGS: Suspected underlying osteopenia. Sacroiliac joints, pubic symphysis, and hip joints congruent. Arcuat e lines of the sacrum grossly intact. Lower lumbar spine normal. Femoral necks are grossly intact. Sp ecifically, the left hip joint demonstrates no advanced degenerative change or evidence of a femoral neck fracture. Atherosclerosis. Numerous pelvic phleboliths. IMPRESSION: Allowing for osteopenia, no acute osseous injury of the pelvis or left hip. Electronically signed by: Paul Coronado M.D. 05/05/2019 10:31 PM
[2019-05-06] MEDS: INSULIN ASPART 100 UNITS/ML 3 ML PEN SC SCH ×7 (00:14→21:06)
[2019-05-06] MEDS: ALBUT/IPRATROP 3MG/0.5MG NEB 3 ML VIAL NEB SCH ×4 (02:04→19:12)
[2019-05-06] MEDS: HEPARIN SOD 5,000 UNIT/0.5 ML VIAL SQ SCH ×2 (07:58→21:05)
[2019-05-06] MEDS: ISOSORBIDE MONO EXTENDED REL 30 MG TABCR PO SCH (08:02)
[2019-05-06] MEDS: GABAPENTIN 300 MG CAP PO SCH ×3 (08:02→21:05)
[2019-05-06] MEDS: LOSARTAN POTASSIUM 50 MG TAB PO SCH (08:02)
[2019-05-06] MEDS: AMLODIPINE BESYLATE 5 MG TAB PO SCH (08:04)
[2019-05-06] MEDS: CLOPIDOGREL BISULFATE 75 MG TAB PO SCH (08:04)
[2019-05-06] MEDS: ATORVASTATIN 40 MG TAB PO SCH (08:04)
[2019-05-06] MEDS: methylPREDNISolone 40 MG in SYRINGE 0 ML IV SCH (08:06)
[2019-05-06] MEDS: METOPROLOL TARTRATE 50 MG TAB PO SCH ×2 (08:06→21:05)
[2019-05-06] MEDS: ASPIRIN 81 MG ECTAB PO SCH (08:06)
[2019-05-06 08:11] LABS: Basophils # (auto) 0.03 K/uL (0-0.2); Basophils % (auto) 0.3 %; Eosinophils # (auto) 0.01 K/uL (0-0.5); Eosinophils % (auto) 0.1 %; Hematocrit (blood only) 32.8 % (37-47); Hemoglobin 11.2 g/dL (12.0-16.0); Immature Granulocytes # (auto) 0.03 K/uL (0.00-0.02); Immature Granulocytes % (auto) 0.3 %; Lymphocytes # (auto) 3.04 K/uL (1.2-3.4); Lymphocytes % (auto) 28.6 %; Mean Corpuscular Hgb Conc 34.1 g/dL (32-36); Mean Corpuscular Volume 87.5 fL (80-100); Mean Platelet Volume 9.6 fL (7.4-10.4); Monocytes # (auto) 0.57 K/uL (0.11-0.59); Monocytes % (auto) 5.4 %; Neutrophils # (auto) 6.95 K/uL (1.4-6.5); Neutrophils % (auto) 65.3 %; Platelet Count 217 K/uL (130-400); RDW Coefficient of Variation 13.2 % (11.5-14.5); RDW Standard Deviation 42.7 fL (36.4-46.3); Red Blood Count 3.75 M/uL (4.2-5.4); White Blood Count 10.63 K/uL (4.8-10.8)
[2019-05-06] MEDS: DOXYCYCLINE HYCLATE 100 MG in DEXTROSE 5% 100 ML IV SCH ×2 (08:16→21:04)
[2019-05-06 08:42] LABS: Albumin Level 2.8 gm/dl (3.4-5.0); BUN Creatinine Ratio 15.8 (10-20); Calcium 9.6 mg/dl (8.5-10.1); Creatinine Clr Calc Pharmacy 32.2 ml/min; Est GFR (African American) 45.9; Est GFR (Non-African American) 39.6; Potassium 4.7 mmol/L (3.5-5.1)
[2019-05-06 08:47] LABS: Albumin Globulin Ratio 0.7 (0.9-2); Bilirubin,Total 0.2 mg/dl (0.2-1); Globulin 3.8 gm/dl (2.5-4.0); Total Protein 6.6 gm/dl (6.4-8.2)
[2019-05-06] MEDS ORDERED: INSULIN HUMAN NPH SC SCH (09:00)
--- NOTE | 2019-05-06 09:14 | Pharmacy Report ---
Pharmacy Glycemic Short Note 2 - Date of Service May 06, 2019 - Glycemic Short BSG Results (Last 24 hours): 05/05/19 05/05/19 05/05/19 11:21 16:29 20:18 Glucose POC Glucose 208 H 222 H 264 H 05/06/19 05/06/19 05/06/19 00:07 02:18 04:13 Glucose POC Glucose 231 H 196 H 246 H 05/06/19 05/06/19 07:23 07:35 Glucose 205 H POC Glucose 195 H OUTPATIENT ANTIDIABETIC REGIMEN: * Novolin 70/30 premixed insulin: 55 units SQ AM + 35 units SQ PM * Total daily outpatient dose = ~ 90 units/day * A1c = 9% on 05/04/19 ASSESSMENT: * 78yo T2DM female known to pharmacy from previous admissions/glycemic consults * Pt with near-adequate outpatient glycemic control - goal A1c likely ~8% based on age/co-morbidities. A1c has improved over the past year 10.3% --> 9.4% --> 9% currently. * Outpatient regimen is premixed basal/prandial insulin of Novolin 70/30 mix insulin. * Pre-mixed insulin is difficult to titrate since it is already in a fixed distribution of basal:prandial insulin. Continuing pre-mixed insulin for admission typically lead to hypoglycemia d/t changing PO status but rapid acting insulin is unable to be held. * Home regimen will be held for admission per pharmacy consult. Will utilize recommended regimen of SQ basal bolus insulin regimen with Lantus + NovoLog (CF+CR) * Pt with sustained hyperglycemia last evening secondary to initiation of solumedrol once daily. * NPH insulin is used to counteract the hyperglycemic effect of steroids The rationale for this approach is that the pharmacodynamics profile of NPH, with a peak effect of 4-8hrs and duration of action of 12-16hrs, mirrors the pharmacodynamics of once daily steroids. NPH should be dosed at the same time that steroid. is given * The dose of NPH given is dependent on the steroid dose given * For doses of prednisone equiv 40mg/day or above NPH dose should be 0.4 units/kg * NPH dosing above is given in addition to patients basal insulin needs * Typically, patients will also need rapid-acting insulin with meals PLAN FOR INPATIENT GLYCEMIC CONTROL: * Hold outpatient oral diabetes medications * Basal insulin * Lantus 50 units SQ Q24hrs given with dinner * Steroid induced hyperglycemia * NPH 30 units (0.4 units/kg) SQ daily with solumedrol administration * Bolus insulin * NovoLog per scale ACHS or Q6hrs while NPO * Goal Range: Low 120 mg/dL - High 160 mg/dL * Correction Factor: 10 mg/dL/unit * Nutritional / Prandial insulin per carb ratio of 1 unit per 3 grams CHO consumed PLAN FOR DISCHARGE: * May need to increase outpatient doses of premixed insulin to improve A1c to goal of ~8%
[2019-05-06] MEDS ORDERED: guaiFENesin SUGAR FREE 100 MG/5 ML UDC PO STA (09:22)
--- NOTE | 2019-05-06 09:34 | Hospitalist Progress Note ---
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 Pt requiring ~ 100 units/insulin per day as of 05/05/19 -will continue insulin as per pharmacy glycemic control consult as methylprednisone was started on 05/05/19 Diabetic Neuropathy as per history -gabapentin 300 mg TID to give more pain management coverage throughout the day Left leg pain likely due to Sciatica pain -left flank with pain on palpation -left leg pain with tingling x 1 week at home -gabapentin as above -ordered lumbar and left hip X ray: lower back imaging more correlates with sciatica because Multilevel degenerative changes with suspected osseous neural foraminal narrowing at L5-S1 -will obtain orthopedic spine consult -continue PT/OT evaluations Chest Pain history of cardiac stents -patient with chest pain (pain is beneath left breast) x 1 day when at home -reports that the chest pain relieved with nitro -troponins negative x 3 and resting echocardiogram without obvious ischemia -seen by cardiology service which recommended nuclear stress testing when breathing is improved -continue home dose aspirin and plavix -continue home dose imdur, metoprolol tartrate, losartan Asthma exacerbation vs bronchitis -Coughing started when being in hospital following admission day -continue duonebs q6 hours -home dose dulera inhaler -was started on IV methylprednisone 40 mg daily since 05/05/19, continue -start doxycycline 100 mg IV BID empirically on 05/05/19, continue -repeat CXR on 05/05/19 with no evidence of pneumonia -will send influenza swab -will continue steroids, respiratory antibiotics, and bronchodilators and start anti-tussives to give symptomatic relief Gastroesophageal reflux disease (GERD) -continue home dose BID ranitidine Chronic kidney disease stage III -monitor renal function History of stroke in the past -reports residual right arm weakness which is chronic -continue home dose aspirin and plavix DVT ppx: heparin 5000 unit subc every 12 hours Full Code Family Obey, granddaughter [phone] Omi, son in law [phone] Subjective Patient seen this morning and was initially laying flat and appeared to be sleeping. as soon as medical doctor awoke patient, she was having coughing and dry heaves and some mild wheezes. as we continued the conversation these symptoms were more pronounced. patient reports that the coughing had been persistent and started since being in hospital only and she gets pain of her chest with the coughing. we discussed the Chest X ray has been clear so unlikely to be pneumonia and perhaps coughing is bronchitis vs asthma exacerbation. also discussed that the lower back imaging more correlates with sciatica because of neural foraminal narrowing at L5-S1. we discussed that the possibility of surgical intervention is low for the left leg tingling sensations but patient would like orthopedics team to see her. Physical Exam Constitutional: WD/WN, vitals as above Eyes: PERRL, conjunctivae normal, anicteric sclerae EOM intact bilaterally ENMT: external ear and nose normal, oropharynx normal Neck: trachea midline, no thyromegaly normal visual inspection Respiratory: coughing, wheezing, tight lung exam on inhalation and exhalation, dry heaves Cardiovascular: RRR, no murmur, no edema Gastrointestinal (Abdomen): normal bowel sounds, soft, nontender, no hepatospl enomegaly Musculoskeletal: Head/Neck/Chest: normocephalic and head atraumatic Neurologic: PERRL, EOMI, accommodation nl, no face palsy, no dysarthria Results & Data Vital Signs (Past 12 Hours) Vital Signs Temp Pulse Pulse Resp BP BP Pulse Ox 05/06/19 07:33 36.6 C 83 16 142/60 H 98 05/06/19 06:58 77 18 96 05/06/19 04:28 36.7 C 73 20 147/79 H 94 05/06/19 02:04 79 16 97 05/05/19 23:46 85 05/05/19 23:23 36.5 C 81 20 159/77 H 96
[2019-05-06] MEDS ORDERED: MoRPHine SULFATE 2 MG/ML CARP IV STA (15:21)
[2019-05-06] MEDS ORDERED: NITROGLYCERIN SL 0.4 MG/TAB TAB SL STA (15:56)
--- NOTE | 2019-05-06 16:04 | Cardiology Progress Note ---
Date of Service May 06, 2019 Assessment & Plan (1) Chest pain: (2) Left bundle branch block: 70-year-old female with history of coronary heart disease and intermittent left bundle branch block had been admitted with chest discomfort. Cardiac enzymes negative thus far on a serial basis. She been wheezing on exam yesterday, and treatment for bronchitis was initiated. The patient had a non-ST segment elevation myocardial infarction in January 2019 during which time she had drug-eluting stent placement to the circumflex coronary artery and right coronary artery on 01/26/2019. Later that month she was readmitted with findings of a frontal lobe stroke. Her EKG has reverted to her previously noted left bundle branch block morphology and therefore is not helpful in terms of acute chest pain. Repeat troponin currently pending. We will proceed with sublingual nitroglycerin and half an inch of nitroglycerin paste, will be cautious with the dose given her history of mild to moderate aortic valve stenosis. Continue subcutaneous heparin for DVT prophylaxis. If troponin increases, we will plan to transition her to heparin with caution. We will tentatively plan for further ischemic work-up with either pharmacologic stress testing or cardiac catheterization next week. In the meantime continue treatment for bronchitis. Continue Zantac. Subjective Chief complaint: Follow-up chest pain Subjective: Patient describes midline chest discomfort that apparently started again about 2 hours ago. She describes it as being indigestion. EKG this morning reveals left bundle branch block. Sinus tachycardia in the range of 125 bpm has been present on telemetry today. Troponin has already been drawn and is pending. She received a dose of IV morphine which he stated palliate her discomfort very briefly. Physical Exam Constitutional: WD/WN, vitals as above Respiratory: normal respiratory effort, lungs clear to auscultation Cardiovascular: Rate/Rhythm: regular rhythm and + tachycardic Heart Sounds: + murmur (1/6 systolic murmur) Vessels: no JVD Extremities: no edema Gastrointestinal (Abdomen): normal bowel sounds, soft, nontender, no hepatosplenomegaly Neurologic: PERRL, EOMI, accommodation nl, no face palsy, no dysarthria moves all extremities; no focal motor deficits Results & Data Vital Signs (Past 12 Hours) Vital Signs Temp Pulse Resp BP BP Pulse Ox 05/06/19 15:31 36.9 C 104 H 20 156/82 H 97 05/06/19 14:05 91 H 16 96 05/06/19 11:33 36.5 C 84 20 169/66 H 94 05/06/19 07:33 36.6 C 83 16 142/60 H 98 05/06/19 06:58 77 18 96 05/06/19 04:28 36.7 C 73 20 147/79 H 94 Diagnostic Findings Echocardiogram performed 05/05/2019 revealed moderate concentric left ventricular hypertrophy with normal wall motion and normal LVEF, 60-65%. Moderate aortic valve stenosis is noted moderate mitral regurgitation was noted
[2019-05-06] MEDS: NITROGLYCERIN 2% OINTMENT 30GM TUBE EXT SCH ×2 (17:21→21:19)
[2019-05-06] MEDS: INSULIN GLARGINE SOLOSTAR 100 UNITS/ML 3 ML PEN SC SCH (17:21)
[2019-05-06] MEDS: guaiFENesin SUGAR FREE 100 MG/5 ML UDC PO PRN (19:12)
[2019-05-06] MEDS ORDERED: COUGH DROP (SUGAR FREE) LOZ 24 LOZ/1 BOX BUCCAL PRN (20:30)
--- NOTE | 2019-05-06 20:57 | Magnetic Resonance Report ---
MRI OF THE LUMBAR SPINE WITHOUT CONTRAST CLINICAL HISTORY: Left lower extremity weakness. Radiculopathy. COMPARISON STUDY: Lumbar spine CT January 24, 2017. Lumbar spine radiographs May 05, 2019. Lumbar spin e MRI September 27, 2010. TECHNIQUE: Utilizing a 1.5 Violet magnet and dedicated coil, multiplanar, multiecho imaging of the [facility] spine was performed without IV contrast. FINDINGS: For purposes of numbering on this exam, the L5-S1 disc space is assigned to axial image 23 of 25. Ali gnment of the lumbar spine is anatomic. Vertebral body heights are maintained. There is no suspicious marrow replacement. There is a hemangioma within the L4 vertebral body. There is no intracanalicular mass or fluid collection. Conus terminates at the mid L1 level. Paravertebral soft tissues are unrem arkable. There is moderate disc space narrowing at L5-S1. The appearance of the lumbar spine is simil ar to MRI of October 07, 2010. L1-2: The central canal and neural foramen are patent. L2-3: The central canal and neural foramen are patent. L3-4: The central canal and neural foramen are patent. L4-5: There is moderate facet arthrosis. The central canal is patent. There is mild bilateral neural foraminal narrowing. L5-S1: Note is made of moderate disc space narrowing with mild disc bulge. There is facet arthrosis. There is prominent epidural fat. Central canal is patent. There is mild bilateral neural foraminal st enosis. IMPRESSION: 1. No acute abnormality within the lumbar spine by MRI. 2. No significant change since MRI of October 07, 2010. Moderate disc space narrowing at L5-S1 with disc bulge. Facet arthrosis. Mild bilateral neural foraminal narrowing at L4-L5 and L5-S1 which is un changed. 3. Patent central canal. Electronically signed by: Brijesh Jeter M.D. 05/06/2019 8:55 PM
[2019-05-06] MEDS: TRAZODONE HCL 50 MG TAB PO SCH (21:05)
[2019-05-06] MEDS: MIRTAZAPINE SOLTAB 15 MG PO SCH (21:05)
[2019-05-06] MEDS: ROPINIROLE HCL 1 MG TABLET PO SCH (21:05)
[2019-05-07] MEDS: guaiFENesin SUGAR FREE 100 MG/5 ML UDC PO PRN (00:20)
[2019-05-07 01:35] LABS: BUN Creatinine Ratio 20.2 (10-20); Calcium 8.7 mg/dl (8.5-10.1); Creatinine Clr Calc Pharmacy 32.4 ml/min; Est GFR (African American) 46.4; Potassium 4.5 mmol/L (3.5-5.1)
[2019-05-07] MEDS ORDERED: HEPARIN 100 UNIT/ML 5ML FLUSH FLUSH PRN (01:37)
[2019-05-07 01:44] LABS: Troponin I 0.369 ng/ml (0-0.045)
[2019-05-07] MEDS: ALBUT/IPRATROP 3MG/0.5MG NEB 3 ML VIAL NEB SCH ×7 (01:47→23:07)
[2019-05-07 02:33] LABS: Basophils # (auto) 0.03 K/uL (0-0.2); Basophils % (auto) 0.2 %; Eosinophils # (auto) 0.03 K/uL (0-0.5); Eosinophils % (auto) 0.2 %; Hematocrit (blood only) 29.8 % (37-47); Hemoglobin 10.3 g/dL (12.0-16.0); Immature Granulocytes # (auto) 0.06 K/uL (0.00-0.02); Immature Granulocytes % (auto) 0.5 %; Lymphocytes # (auto) 3.71 K/uL (1.2-3.4); Lymphocytes % (auto) 28.6 %; Mean Corpuscular Volume 88.4 fL (80-100); Mean Platelet Volume 9.8 fL (7.4-10.4); Monocytes # (auto) 1.15 K/uL (0.11-0.59); Monocytes % (auto) 8.9 %; Neutrophils # (auto) 7.97 K/uL (1.4-6.5); Neutrophils % (auto) 61.6 %; Platelet Count 216 K/uL (130-400); RDW Coefficient of Variation 13.4 % (11.5-14.5); RDW Standard Deviation 43.4 fL (36.4-46.3); Red Blood Count 3.37 M/uL (4.2-5.4); White Blood Count 12.95 K/uL (4.8-10.8)
[2019-05-07 02:43] LABS: INR 1.1 (0.9-1.1); Partial Thromboplastin Ratio 0.9; Partial Thromboplastin Time 23.6 Seconds (21.0-31.0); Prothrombin Time 11.3 Seconds (9.0-12.0)
[2019-05-07 02:47] LABS: Mean Corpuscular Hgb Conc 34.6 g/dL (32-36)
[2019-05-07] MEDS: Heparin Adult LOW DOSE Wt-Based Dextrose 5% 25,000 units/500 mL IV SCH (02:53)
[2019-05-07] MEDS: NITROGLYCERIN 2% OINTMENT 30GM TUBE EXT SCH ×4 (03:54→20:36)
[2019-05-07] MEDS: LORazepam 0.5 MG TAB PO PRN (07:48)
[2019-05-07] MEDS: GABAPENTIN 300 MG CAP PO SCH ×3 (07:48→19:48)
[2019-05-07] MEDS: ISOSORBIDE MONO EXTENDED REL 30 MG TABCR PO SCH (07:48)
[2019-05-07] MEDS: LOSARTAN POTASSIUM 50 MG TAB PO SCH (07:49)
[2019-05-07] MEDS: ATORVASTATIN 40 MG TAB PO SCH (07:49)
[2019-05-07] MEDS: CLOPIDOGREL BISULFATE 75 MG TAB PO SCH (07:49)
[2019-05-07] MEDS: AMLODIPINE BESYLATE 5 MG TAB PO SCH (07:49)
[2019-05-07] MEDS: METOPROLOL TARTRATE 50 MG TAB PO SCH ×2 (07:50→19:49)
[2019-05-07] MEDS: ASPIRIN 81 MG ECTAB PO SCH (07:50)
[2019-05-07] MEDS: INSULIN ASPART 100 UNITS/ML 3 ML PEN SC SCH ×5 (07:51→20:36)
[2019-05-07] MEDS: ACETAMINOPHEN 65 ML IV PRN (08:22)
[2019-05-07] MEDS: methylPREDNISolone 40 MG in SYRINGE 0 ML IV SCH (08:23)
--- NOTE | 2019-05-07 08:40 | Hospitalist Progress Note ---
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 Pt requiring ~ 100 units/insulin per day as of 05/05/19 -will continue insulin as per pharmacy glycemic control consult as methylprednisone was started on 05/05/19 Diabetic Neuropathy as per history -gabapentin 300 mg TID to give more pain management coverage throughout the day Left leg pain likely due to Sciatica pain -left flank with pain on palpation -left leg pain with tingling x 1 week at home -gabapentin as above -ordered lumbar and left hip X ray: lower back imaging more correlates with sciatica because Multilevel degenerative changes with suspected osseous neural foraminal narrowing at L5-S1 -orthopedic spine consult was requested and they have ordered pain management consultation -continue PT/OT evaluations Chest Pain history of cardiac stents -patient with chest pain (pain is beneath left breast) x 1 day when at home -reports that the chest pain relieved with nitro -troponins negative x 3 and resting echocardiogram without obvious ischemia -seen by cardiology service which recommended nuclear stress testing when breathing is improved -Yesterday evening on , patient with complaints of persistent chest pain. cardiology service started nitropaste. Patient made positive troponins. Nocturnalist started patient on heparin drip. Patient seen and examined this evening while on heparin drip. will continue heparin drip and await further directions from cardiology service -continue home dose aspirin and plavix -continue home dose imdur, metoprolol tartrate Asthma exacerbation vs bronchitis vs exacerbation of GERD -Coughing started when being in hospital following admission day -continue duonebs q6 hours -home dose dulera inhaler -was started on IV methylprednisone 40 mg daily since 05/05/19, continue -start doxycycline 100 mg IV BID empirically on 05/05/19, continue -repeat CXR on 05/05/19 with no evidence of pneumonia -influenza swab negative -will continue steroids, respiratory antibiotics, and bronchodilators and start anti-tussives to give symptomatic relief , add on tessalon pearles -will hold off further Losartan to avoid any possible allergy reactions to SUMMER inhibitors/ARB -management of GERD Gastroesophageal reflux disease (GERD) -continue home dose BID ranitidine Chronic kidney disease stage III -monitor renal function History of stroke in the past -reports residual right arm weakness which is chronic -continue home dose aspirin and plavix DVT ppx: heparin 5000 unit subc every 12 hours Full Code Family Obey, granddaughter [phone] Omi, son in law [phone] Subjective Yesterday evening on , patient with complaints of persistent chest pain. cardiology service started nitropaste. Patient made positive troponins. Nocturnalist started patient on heparin drip. Patient seen and examined this evening while on heparin drip. chest pain currently gone for now. patient with coughing and dry heaves when speaking to medical doctor. Lung exam with no pulmonary wheezes and no rhonchi. discussed with patient about cutting down on the diet to avoid possible throat irritation and expressed to patient that we are awaiting further cardiology consultation for the chest pain and troponin workup Physical Exam Constitutional: WD/WN, vitals as above Eyes: PERRL, conjunctivae normal, anicteric sclerae EOM intact bilaterally ENMT: external ear and nose normal, oropharynx normal Neck: trachea midline, no thyromegaly normal visual inspection Respiratory: normal respiratory effort, lungs clear to auscultation cough, dry heaves Cardiovascular: RRR, no murmur, no edema Gastrointestinal (Abdomen): normal bowel sounds, soft, nontender, no hepatosplenomegaly Musculoskeletal: Head/Neck/Chest: normocephalic and head atraumatic Neurologic: PERRL, EOMI, accommodation nl, no face palsy, no dysarthria Results & Data Vital Signs (Past 12 Hours) Vital Signs Temp Pulse Resp BP Pulse Ox 05/07/19 07:45 36.9 C 90 20 152/82 H 95 05/07/19 06:56 81 18 95 05/07/19 03:13 36.7 C 80 18 135/71 95 05/07/19 01:49 73 16 94 05/06/19 23:13 36.6 C 87 20 128/69 95
[2019-05-07 08:56] LABS: Hematocrit (blood only) 32.3 % (37-47); Mean Corpuscular Volume 88.5 fL (80-100); Mean Platelet Volume 9.4 fL (7.4-10.4); Platelet Count 211 K/uL (130-400); RDW Coefficient of Variation 13.4 % (11.5-14.5); RDW Standard Deviation 43.7 fL (36.4-46.3); Red Blood Count 3.65 M/uL (4.2-5.4); White Blood Count 13.15 K/uL (4.8-10.8)
[2019-05-07 08:57] LABS: Mean Corpuscular Hgb Conc 34.1 g/dL (32-36)
[2019-05-07] MEDS ORDERED: INSULIN HUMAN NPH SC SCH (09:00)
[2019-05-07] MEDS: DOXYCYCLINE HYCLATE 100 MG in DEXTROSE 5% 100 ML IV SCH (09:07)
[2019-05-07] MEDS: HYDROmorphone INJ 0.5 MG/0.5 ML SYR IV PRN ×2 (09:10→19:46)
[2019-05-07] MEDS: BENZONATATE 100 MG CAPSULE PO SCH ×3 (09:11→19:48)
[2019-05-07 09:18] LABS: INR 1.1 (0.9-1.1); Partial Thromboplastin Ratio 2.8; Prothrombin Time 11.6 Seconds (9.0-12.0)
[2019-05-07 09:23] LABS: Basophils # (auto) 0.06 K/uL (0-0.2); Basophils % (auto) 0.5 %; Eosinophils # (auto) 0.14 K/uL (0-0.5); Eosinophils % (auto) 1.1 %; Immature Granulocytes # (auto) 0.06 K/uL (0.00-0.02); Immature Granulocytes % (auto) 0.5 %; Lymphocytes # (auto) 5.66 K/uL (1.2-3.4); Monocytes # (auto) 0.96 K/uL (0.11-0.59); Monocytes % (auto) 7.3 %; Neutrophils # (auto) 6.27 K/uL (1.4-6.5); Neutrophils % (auto) 47.6 %; RBC Morphology Unremarkable
[2019-05-07 09:27] LABS: Albumin Globulin Ratio 0.8 (0.9-2); Albumin Level 2.8 gm/dl (3.4-5.0); BUN Creatinine Ratio 19.1 (10-20); Bilirubin,Total 0.2 mg/dl (0.2-1); Calcium 8.9 mg/dl (8.5-10.1); Creatinine Clr Calc Pharmacy 30.3 ml/min; Est GFR (African American) 42.3; Est GFR (Non-African American) 36.5; Globulin 3.5 gm/dl (2.5-4.0); Magnesium 1.7 mg/dl (1.8-2.4); Potassium 3.7 mmol/L (3.5-5.1); Total Protein 6.3 gm/dl (6.4-8.2); Troponin I 0.193 ng/ml (0-0.045)
[2019-05-07 09:32] LABS: Partial Thromboplastin Time 76.9 Seconds (21.0-31.0)
--- NOTE | 2019-05-07 09:38 | Progress Note ---
DATE: 05/07/2019 She is alert, oriented this morning. She has lower extremity difficulty, essentially a global area of pain and inflammation, some spasticity around the calf region. It is below the knee, it is on the left hand side, it has been persistent for about a week. I think an appropriate test was done yesterday evening with an MRI scan. The fortunate thing is it showed that the nerve roots were completely wide open. There is no nerve root compression that I could see in the report, would verify that as well. She has no fevers, sweats, chills. No other constitutional issues. She does have significant amount of other comorbidities. IMPRESSION: I am not sure what is going on with our patient here this morning, since none, I do not think it is from the spine, it might have to look at more of a vascular etiology, although that seemed to be pretty benign or some sort of inflammatory process as well. There are no skin markings to demonstrate any type of viral etiology. I will continue to follow. Surgery contraindicated.
[2019-05-07] MEDS: Heparin IV Low Dose *NO* Bolus IV SCH ×2 (09:51→09:52)
--- NOTE | 2019-05-07 11:22 | Cardiology Progress Note ---
Date of Service May 07, 2019 Assessment & Plan (1) Chest pain: Mildly elevated troponin noted overnight. Continue intravenous heparin and topical nitrates. Utilize sublingual nitroglycerin as needed for recurrent episodes of pain. Troponins have trended downward. No regional wall motion on normalities per recent echocardiogram. Discussed possible cardiac catheterization on Thursday. Currently patient agreeable. Risks reviewed. Continue to optimize medications regarding underlying pulmonary issues/exacerbation of COPD. (2) Left bundle branch block: Per review of medical records, left bundle branch block is intermittent. ECG therefore is nondiagnostic for ischemia. 70-year-old female with history of coronary heart disease and intermittent left bundle branch block had been admitted with chest discomfort. Cardiac enzymes negative thus far on a serial basis. She been wheezing on exam yesterday, and treatment for bronchitis was initiated. The patient had a non-ST segment elevation myocardial infarction in January 2019 during which time she had drug-eluting stent placement to the circumflex coronary artery and right coronary artery on 01/26/2019. Later that month she was readmitted with findings of a frontal lobe stroke. (3) Elevated troponin I level: Subjective Patient developed recurrent chest discomfort last evening. Evaluated by the hose cementer and treated with Nitropaste as well as sublingual nitroglycerin. Mildly elevated troponin noted. Intravenous heparin initiated. Patient pain- free this morning. Continues to report left lower extremity discomfort. Ev aluated by orthopedic surgery this morning. Chest pain has resolved. Mild residual ache noted which is chronic. Left lower extremity pain improved. Review of Systems Review of Systems: All systems reviewed & are unremarkable except as noted in HPI & below Physical Exam Physical Exam: General: NAD, AAO x3, chronically ill. HEENT: Normocephalic. Atraumatic. Conjunctiva pink, no scleral icterus. Neck: No carotid bruits, the carotid upstrokes are brisk. No JVD. No HJR Heart: Regular normal S-1 and S-2 no S-3 or S-4 gallop. No murmurs or rub appreciated. PMI is not displaced. No RV heave. Lungs: Diminished breath sounds bilateral, scattered rhonchi, expiratory wheezing. Abdomen: Normal bowel sounds. Soft. Nontender. No masses or organomegaly. No abdominal bruits. Extremities: No clubbing, cyanosis, or edema. Pulses: radial=2/4, Dorsalis pedis =2/4, posterior tibial=2/4. Neuro: Cranial nerves grossly intact. No focal motor deficit. Results & Data Vital Signs (Past 12 Hours) Vital Signs Temp Pulse Resp BP Pulse Ox 05/07/19 11:14 36.7 C 76 20 119/68 93 05/07/19 07:45 36.9 C 90 20 152/82 H 95 05/07/19 06:56 81 18 95 05/07/19 03:13 36.7 C 80 18 135/71 95 05/07/19 01:49 73 16 94 Laboratory Results Laboratory Results - last 24 hr 05/06/19 05/06/19 05/06/19 15:31 16:17 20:56 WBC RBC Hgb Hct MCV MCH MCHC RDW Std Deviation RDW Coeff of Stormy Plt Count MPV Immature Gran % (Auto) Neut % (Auto) Lymph % (Auto) [place] % (Auto) Eos % (Auto) Baso % (Auto) Immature Gran # (Auto) Neut # (Auto) Lymph # (Auto) [place] # (Auto) Eos # (Auto) Baso # (Auto) RBC Morphology PT INR APTT PTT Ratio Sodium Potassium Chloride Carbon Dioxide Anion Gap BUN Creatinine Est Cr Clr Drug Dosing Est GFR ( Amer) Est GFR (Non-Af Amer) BUN/Creatinine Ratio Glucose POC Glucose 245 H 178 H Calcium Magnesium Total Bilirubin AST ALT Alkaline Phosphatase Troponin I < 0.015 Total Protein Albumin Globulin Albumin/Globulin Ratio Influenza Type A Ag Influenza Type B Ag 05/06/19 05/06/19 05/07/19 21:12 Unknown 01:05 WBC 12.95 H RBC 3.37 L Hgb 10.3 L Hct 29.8 L MCV 88.4 MCH 30.6 MCHC 34.6 RDW Std Deviation 43.4 RDW Coeff of Stormy 13.4 Plt Count 216 MPV 9.8 Immature Gran % (Auto) 0.5 Neut % (Auto) 61.6 Lymph % (Auto) 28.6 [place] % (Auto) 8.9 Eos % (Auto) 0.2 Baso % (Auto) 0.2 Immature Gran # (Auto) 0.06 H Neut # (Auto) 7.97 H Lymph # (Auto) 3.71 H [place] # (Auto) 1.15 H Eos # (Auto) 0.03 Baso # (Auto) 0.03 RBC Morphology PT INR APTT PTT Ratio Sodium Potassium Chloride Carbon Dioxide Anion Gap BUN Creatinine Est Cr Clr Drug Dosing Est GFR ( Amer) Est GFR (Non-Af Amer) BUN/Creatinine Ratio Glucose POC Glucose Calcium Magnesium Total Bilirubin AST ALT Alkaline Phosphatase Troponin I 0.142 H* Total Protein Albumin Globulin Albumin/Globulin Ratio Influenza Type A Ag Neg for Influ A Influenza Type B Ag Neg for Influ B 05/07/19 05/07/19 05/07/19 01:07 02:21 07:16 WBC RBC Hgb Hct MCV MCH MCHC RDW Std Deviation RDW Coeff of Stormy Plt Count MPV Immature Gran % (Auto) Neut % (Auto) Lymph % (Auto) [place] % (Auto) Eos % (Auto) Baso % (Auto) Immature Gran # (Auto) Neut # (Auto) Lymph # (Auto) [place] # (Auto) Eos # (Auto) Baso # (Auto) RBC Morphology PT 11.3 INR 1.1 APTT 23.6 PTT Ratio 0.9 Sodium 141 Potassium 4.5 Chloride 111 H Carbon Dioxide 24 Anion Gap 6.0 BUN 26 H Creatinine 1.28 H Est Cr Clr Drug Dosing 32.4 Est GFR ( Amer) 46.4 Est GFR (Non-Af Amer) 40.0 BUN/Creatinine Ratio 20.2 H Glucose 129 H POC Glucose 174 H Calcium 8.7 Magnesium Total Bilirubin AST ALT Alkaline Phosphatase Troponin I 0.369 H* Total Protein Albumin Globulin Albumin/Globulin Ratio Influenza Type A Ag Influenza Type B Ag 05/07/19 05/07/19 05/07/19 08:43 08:43 08:43 WBC 13.15 H RBC 3.65 L Hgb 11.0 L Hct 32.3 L MCV 88.5 MCH 30.1 MCHC 34.1 RDW Std Deviation 43.7 RDW Coeff of Stormy 13.4 Plt Count 211 MPV 9.4 Immature Gran % (Auto) 0.5 Neut % (Auto) 47.6 Lymph % (Auto) 43.0 [place] % (Auto) 7.3 Eos % (Auto) 1.1 Baso % (Auto) 0.5 Immature Gran # (Auto) 0.06 H Neut # (Auto) 6.27 Lymph # (Auto) 5.66 H [place] # (Auto) 0.96 H Eos # (Auto) 0.14 Baso # (Auto) 0.06 RBC Morphology Unremarkable PT 11.6 INR 1.1 APTT 76.9 H* PTT Ratio 2.8 Sodium 143 Potassium 3.7 D Chloride 111 H Carbon Dioxide 22 Anion Gap 10.0 BUN 26 H Creatinine 1.38 H Est Cr Clr Drug Dosing 30.3 Est GFR ( Amer) 42.3 Est GFR (Non-Af Amer) 36.5 BUN/Creatinine Ratio 19.1 Glucose 201 H POC Glucose Calcium 8.9 Magnesium 1.7 L Total Bilirubin 0.2 AST 42 H ALT 57 Alkaline Phosphatase 147 H Troponin I 0.193 H* Total Protein 6.3 L Albumin 2.8 L Globulin 3.5 Albumin/Globulin Ratio 0.8 L Influenza Type A Ag Influenza Type B Ag
--- NOTE | 2019-05-07 13:43 | Pharmacy Report ---
Glycemic Control Progress Note - Date of Service May 07, 2019 - Scope Glycemic Pharmacist consulted for glycemic control to write orders per [facility] inpatient glycemic control protocol. - Objective Accuchecks BSG(last 24 hours):: 05/06/19 05/06/19 05/07/19 16:17 20:56 01:07 Glucose 129 H POC Glucose 245 H 178 H 05/07/19 05/07/19 05/07/19 07:16 08:43 11:12 Glucose 201 H POC Glucose 174 H 113 H HbA1c:: Hemoglobin A1c 9.0 % (4.5-5.6) H 05/04/19 15:52 - Recent Pertinent Medications The patient is currently receiving: * Basal insulin: Lantus 50 units every 24 hours at dinnertime * Correctional Insulin: Novolog Correction per scale ACHS Goal Range: Low 110 mg/dL - High 150 mg/dL Correction Factor: 10 mg/dL/unit * Prandial insulin: Per carb ratio of 1 unit per 3 grams CHO consumed - Outpatient Anti-Diabetic Meds Novolin 70/30 55 units in the evening and 35 units in the PM - Assessment & Plan ASSESSMENT: * See progress note from 05/06/19 for more background info, in short: * Pt receiving SQ basal bolus insulin regimen for hyperglycemia secondary to baseline DM (outpatient regimen on hold) and Solu-Medrol 40 mg IV daily. * Patient is currently receiving an average of 181 units of insulin per day * 50 units of basal insulin + 30 units of NPH * 101 units of prandial/correctional insulin * BSGs ranging 178 - 318 mg/dl over the past 24hrs * Changes needed to insulin regimen: * AM Fasting BSG = 177 mg/dl. This is in slightly above goal range for patient based on inpatient targets and co-morbidities. It is lower than yesterday's fasting of 195 mg/dL. Continue Lantus 50 units. Will increase tomorrow if over 160 mg/dL again. * Post-prandial BSGs did trend upwards yesterday until bedtime. This indicates that NPH dose is not high enough. Increase by 20%. Continue Novolog parameters as patient did correct from dinnertime to bedtime. * Total daily dose = ~200 units. PLAN FOR INPATIENT GLYCEMIC CONTROL: * Continuing Lantus 50 units SQ with dinner and INCREASING NPH to 36 units with breakfast * Continuing correction factor of 10 mg/dl/unit * Continuing carb ratio of 1 unit per 3 grams CHO consumed * Continuing goal range of Low 110 mg/dL - High 140 mg/dL RECOMMENDATIONS FOR DISCHARGE: * see note from 05/06 * Please note that the plan above was derived based on current level of insulin resistance and hospital stress. These recommendations are appropriate for inpatient admission only. Plan of care upon discharge will need to be reassessed to avoid potential outpatient hypo/hyperglycemia. Thank you.
[2019-05-07 16:32] LABS: Partial Thromboplastin Ratio 1.3; Partial Thromboplastin Time 36.3 Seconds (21.0-31.0)
[2019-05-07] MEDS: MAGNESIUM SULFATE / D5W 1 GM/100 ML BAG IV SCH ×2 (16:39→17:49)
[2019-05-07] MEDS: INSULIN GLARGINE SOLOSTAR 100 UNITS/ML 3 ML PEN SC SCH (16:49)
[2019-05-07] MEDS ORDERED: HEPARIN IV BOLUS 4,000 UNITS in SYRINGE 0 ML IV STA (17:16)
[2019-05-07] MEDS: MIRTAZAPINE SOLTAB 15 MG PO SCH (19:47)
[2019-05-07] MEDS: ROPINIROLE HCL 1 MG TABLET PO SCH (19:49)
[2019-05-07] MEDS: TRAZODONE HCL 50 MG TAB PO SCH (19:50)
[2019-05-07] MEDS ORDERED: DOXYCYCLINE HYCLATE 100 MG CAP PO SCH (21:00)
[2019-05-08 01:32] LABS: Partial Thromboplastin Time 53.7 Seconds (21.0-31.0)
[2019-05-08] MEDS: NITROGLYCERIN 2% OINTMENT 30GM TUBE EXT SCH ×4 (03:29→22:22)
[2019-05-08] MEDS: ALBUT/IPRATROP 3MG/0.5MG NEB 3 ML VIAL NEB SCH ×6 (03:33→23:02)
[2019-05-08 06:21] LABS: Hematocrit (blood only) 30.7 % (37-47); Hemoglobin 10.3 g/dL (12.0-16.0); Mean Corpuscular Hgb Conc 33.6 g/dL (32-36); Mean Platelet Volume 9.4 fL (7.4-10.4); Platelet Count 218 K/uL (130-400); RDW Coefficient of Variation 13.6 % (11.5-14.5); RDW Standard Deviation 43.8 fL (36.4-46.3); Red Blood Count 3.45 M/uL (4.2-5.4); White Blood Count 13.13 K/uL (4.8-10.8)
[2019-05-08 06:35] LABS: INR 1.1 (0.9-1.1); Partial Thromboplastin Ratio 1.6; Partial Thromboplastin Time 43.2 Seconds (21.0-31.0); Prothrombin Time 11.2 Seconds (9.0-12.0)
[2019-05-08 06:45] LABS: Basophils # (auto) 0.07 K/uL (0-0.2); Basophils % (auto) 0.5 %; Echinocytes 1+; Eosinophils # (auto) 0.12 K/uL (0-0.5); Eosinophils % (auto) 0.9 %; Immature Granulocytes # (auto) 0.13 K/uL (0.00-0.02); Lymphocytes # (auto) 5.32 K/uL (1.2-3.4); Lymphocytes % (auto) 40.5 %; Monocytes # (auto) 1.14 K/uL (0.11-0.59); Monocytes % (auto) 8.7 %; Neutrophils # (auto) 6.35 K/uL (1.4-6.5); Neutrophils % (auto) 48.4 %
[2019-05-08 06:53] LABS: BUN Creatinine Ratio 23.1 (10-20); Calcium 8.6 mg/dl (8.5-10.1); Creatinine Clr Calc Pharmacy 32.8 ml/min; Est GFR (African American) 46.8; Est GFR (Non-African American) 40.4; Magnesium 2.3 mg/dl (1.8-2.4)
[2019-05-08] MEDS: ASPIRIN 81 MG ECTAB PO SCH (07:45)
[2019-05-08] MEDS: ATORVASTATIN 40 MG TAB PO SCH (07:46)
[2019-05-08] MEDS: GABAPENTIN 300 MG CAP PO SCH ×3 (07:46→20:39)
[2019-05-08] MEDS: METOPROLOL TARTRATE 50 MG TAB PO SCH ×2 (07:46→20:38)
[2019-05-08] MEDS: ISOSORBIDE MONO EXTENDED REL 30 MG TABCR PO SCH (07:46)
[2019-05-08] MEDS: CLOPIDOGREL BISULFATE 75 MG TAB PO SCH (07:46)
[2019-05-08] MEDS: AMLODIPINE BESYLATE 5 MG TAB PO SCH (07:46)
[2019-05-08] MEDS: BENZONATATE 100 MG CAPSULE PO SCH ×3 (07:47→20:39)
[2019-05-08] MEDS: INSULIN ASPART 100 UNITS/ML 3 ML PEN SC SCH ×4 (07:48→20:42)
--- NOTE | 2019-05-08 08:59 | Ultrasound Report ---
LEFT LOWER EXTREMITY ARTERIAL DOPPLER ULTRASOUND CLINICAL HISTORY: rule out arterial occlusion COMPARISON STUDY: No previous studies for comparison. TECHNIQUE: Color and duplex Doppler sonography sonography of the arterial system of the left lower ex tremity was performed. FINDINGS: The right ankle to brachial index was normal. Left ankle brachial index could not be obtain ed as the posterior tibial and dorsalis pedis vessels were noncompressible. Biphasic flow is identifi ed within the left common femoral, profunda, superficial femoral and popliteal arteries. No elevated velocities were identified. There was monophasic flow within the left anterior tibial, posterior tibi al, peroneal and dorsalis pedis vessels. Mild atherosclerotic plaque was noted. IMPRESSION: 1. Mild to moderate atherosclerotic plaque within the left lower extremity without evidence for a he modynamically significant stenosis. 2. Biphasic flow within left common femoral, superficial femoral and popliteal arteries with monophas ic flow within the left calf vessels. 3. Unable to obtain ankle to brachial indices given noncompressibility of the vessels. Electronically signed by: Brijesh Jeter M.D. 05/08/2019 8:58 AM
[2019-05-08] MEDS ORDERED: INSULIN HUMAN NPH SC SCH (09:00)
[2019-05-08] MEDS ORDERED: hydroCHLOROthiazide 25 MG TAB PO STA (11:03)
--- NOTE | 2019-05-08 11:04 | Cardiology Progress Note ---
Date of Service May 08, 2019 Assessment & Plan (1) Chest pain: Mildly elevated troponin suggestive of possible acute coronary syndrome versus demand ischemia in the setting of acute bronchitis. ECG nondiagnostic due to presence of intermittent left bundle branch block. Chest pain-free overnight. Continue intravenous heparin. Risks, benefits, and alternatives to cardiac catheterization discussed at length. Patient agreeable to procedure in a.m. She will be pretreated with prednisone and Benadryl due to history of contrast allergy. IV heparin will be placed on hold at 7 AM. (2) Left bundle branch block: Intermittent. NSTEMI in January 2019 s/p drug-eluting stent placement to the circumflex coronary artery and right coronary artery on 01/26/2019. Later that month she was readmitted with findings of a frontal lobe stroke. (3) Elevated troponin I level: Subjective Patient seen and examined the bedside. Denies recurrent chest pain overnight. Continues to report a chronic dull ache which is nearly constant. Cough mildly improved. No dysrhythmias on telemetry. Creatinine trending downward. Offers no additional concerns/complaints at this time. Carries a history of iodinated contrast allergy. Review of Systems Review of Systems: All systems reviewed & are unremarkable except as noted in HPI & below Physical Exam Physical Exam: General: NAD, AAO x3, chronically ill. HEENT: Normocephalic. Atraumatic. Conjunctiva pink, no scleral icterus. Neck: No carotid bruits, the carotid upstrokes are brisk. No JVD. No HJR Heart: Regular normal S-1 and S-2 no S-3 or S-4 gallop. No murmurs or rub appreciated. PMI is not displaced. No RV heave. Lungs: Diminished breath sounds bilateral, scattered rhonchi. Abdomen: Normal bowel sounds. Soft. Nontender. No masses or organomegaly. No abdominal bruits. Extremities: No clubbing, cyanosis, or edema. Pulses: radial=2/4, Dorsalis pedis =2/4, posterior tibial=2/4. Neuro: Cranial nerves grossly intact. No focal motor deficit. Results & Data Vital Signs (Past 12 Hours) Vital Signs Temp Pulse Resp BP BP Pulse Ox 05/08/19 07:41 37.2 C 91 H 18 148/80 H 96 05/08/19 07:13 75 18 97 06/16/19 03:33 84 20 97 05/08/19 03:00 36.3 C L 69 18 123/63 94 05/07/19 23:40 36.7 C 74 18 131/64 96 05/07/19 23:08 84 24 96 Laboratory Results Laboratory Results - last 24 hr 05/07/19 05/07/19 05/07/19 11:12 16:05 16:29 WBC RBC Hgb Hct MCV MCH MCHC RDW Std Deviation RDW Coeff of Stormy Plt Count MPV Immature Gran % (Auto) Neut % (Auto) Lymph % (Auto) Clinch % (Auto) Eos % (Auto) Baso % (Auto) Immature Gran # (Auto) Neut # (Auto) Lymph # (Auto) Clinch # (Auto) Eos # (Auto) Baso # (Auto) Blood Smear Review Echinocytes PT INR APTT 36.3 H PTT Ratio 1.3 Sodium Potassium Chloride Carbon Dioxide Anion Gap BUN Creatinine Est Cr Clr Drug Dosing Est GFR ( Amer) Est GFR (Non-Af Amer) BUN/Creatinine Ratio Glucose POC Glucose 113 H 219 H Calcium Magnesium 05/07/19 05/07/19 05/08/19 20:24 23:15 00:38 WBC RBC Hgb Hct MCV MCH MCHC RDW Std Deviation RDW Coeff of Stormy Plt Count MPV Immature Gran % (Auto) Neut % (Auto) Lymph % (Auto) Clinch % (Auto) Eos % (Auto) Baso % (Auto) Immature Gran # (Auto) Neut # (Auto) Lymph # (Auto) Clinch # (Auto) Eos # (Auto) Baso # (Auto) Blood Smear Review Echinocytes PT INR APTT 53.7 H* PTT Ratio 2.0 Sodium Potassium Chloride Carbon Dioxide Anion Gap BUN Creatinine Est Cr Clr Drug Dosing Est GFR ( Amer) Est GFR (Non-Af Amer) BUN/Creatinine Ratio Glucose POC Glucose 186 H 70 Calcium Magnesium 05/08/19 05/08/19 05/08/19 05:40 05:40 05:40 WBC 13.13 H RBC 3.45 L Hgb 10.3 L Hct 30.7 L MCV 89.0 MCH 29.9 MCHC 33.6 RDW Std Deviation 43.8 RDW Coeff of Stormy 13.6 Plt Count 218 MPV 9.4 Immature Gran % (Auto) 1.0 Neut % (Auto) 48.4 Lymph % (Auto) 40.5 Clinch % (Auto) 8.7 Eos % (Auto) 0.9 Baso % (Auto) 0.5 Immature Gran # (Auto) 0.13 H Neut # (Auto) 6.35 Lymph # (Auto) 5.32 H Clinch # (Auto) 1.14 H Eos # (Auto) 0.12 Baso # (Auto) 0.07 Blood Smear Review Pending Echinocytes 1+ PT 11.2 INR 1.1 APTT 43.2 H PTT Ratio 1.6 Sodium 142 Potassium 4.0 Chloride 110 H Carbon Dioxide 26 Anion Gap 6.0 BUN 29 H Creatinine 1.27 H Est Cr Clr Drug Dosing 32.8 Est GFR ( Amer) 46.8 Est GFR (Non-Af Amer) 40.4 BUN/Creatinine Ratio 23.1 H Glucose 80 POC Glucose Calcium 8.6 Magnesium 2.3 05/08/19 07:30 WBC RBC Hgb Hct MCV MCH MCHC RDW Std Deviation RDW Coeff of Stormy Plt Count MPV Immature Gran % (Auto) Neut % (Auto) Lymph % (Auto) Clinch % (Auto) Eos % (Auto) Baso % (Auto) Immature Gran # (Auto) Neut # (Auto) Lymph # (Auto) Clinch # (Auto) Eos # (Auto) Baso # (Auto) Blood Smear Review Echinocytes PT INR APTT PTT Ratio Sodium Potassium Chloride Carbon Dioxide Anion Gap BUN Creatinine Est Cr Clr Drug Dosing Est GFR ( Amer) Est GFR (Non-Af Amer) BUN/Creatinine Ratio Glucose POC Glucose 81 Calcium Magnesium
--- NOTE | 2019-05-08 11:06 | Hospitalist Progress Note ---
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 Pt requiring ~ 100 units/insulin per day as of 05/05/19 -will continue insulin as per pharmacy glycemic control consult as methylprednisone was started on 05/05/19 -IV solumedrol held of 05/08/19 and cardiology started oral prednisone Diabetic Neuropathy as per history -gabapentin 300 mg TID to give more pain management coverage throughout the day Left leg pain -left flank with pain on palpation -left leg pain with tingling x 1 week at home -gabapentin as above -initially though to be due to sciatica but as per orthopedic evaluations and MRI imaging the imaging studies do not support sciatica as cause of leg pain -left leg arterial ultrasound without remarkable results: Mild to moderate atherosclerotic plaque within the left lower extremity without evidence for a hemodynamically significant stenosis -continue PT/OT evaluations, continue gabapentin Chest Pain history of cardiac stents -patient with chest pain (pain is beneath left breast) x 1 day when at home -reports that the chest pain relieved with nitro -troponins negative x 3 and resting echocardiogram without obvious ischemia -seen by cardiology service which recommended nuclear stress testing when breathing is improved -evening on 05/06/19, patient with complaints of persistent chest pain. cardiology service started nitropaste. Patient made positive troponins. Nocturnalist started patient on heparin drip on 05/07/19. Patient seen and examined this evening while on heparin drip. -continue home dose aspirin and plavix -continue home dose imdur, metoprolol tartrate -patient remains on heparin drip and possible cardiac catheterization by cardiology service on 05/09/19 Asthma exacerbation vs bronchitis vs exacerbation of GERD -Coughing started when being in hospital following admission day -continue duonebs q6 hours -home dose dulera inhaler -was started on IV methylprednisone 40 mg daily since 05/05/19, continue to 05/07/19 and then transitioned to prednisone starting 05/08/19 -start doxycycline 100 mg IV BID empirically on 05/05/19, continue -repeat CXR on 05/05/19 with no evidence of pneumonia -influenza swab negative -will continue steroids, respiratory antibiotics, and bronchodilators and start anti-tussives to give symptomatic relief , add on tessalon pearles -will hold off further Losartan to avoid any possible allergy reactions to SUMMER inhibitors/ARB - give HCTZ 25 mg on 05/08/[address] losartan -management of GERD Gastroesophageal reflux disease (GERD) -continue home dose BID ranitidine Chronic kidney disease stage III -monitor renal function History of stroke in the past -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 IV solumedrol held of 05/08/19 and cardiology started oral prednisone with plans for cardiac cath tomorrow . She denies chest pain today but pointed to stomach because of indigestion. continues to be on IV heparin drip. She denies left leg pain today but it "fell asleep on her" She appears to be able to move all extremities. no vomiting. no headache. Physical Exam Constitutional: WD/WN, vitals as above Eyes: PERRL, conjunctivae normal, anicteric sclerae EOM intact bilaterally ENMT: external ear and nose normal, oropharynx normal Neck: trachea midline, no thyromegaly normal visual inspection Respiratory: normal respiratory effort, lungs clear to auscultation Cardiovascular: RRR, no murmur, no edema Gastrointestinal (Abdomen): normal bowel sounds, soft, nontender, no hepatosplenomegaly Musculoskeletal: Head/Neck/Chest: normocephalic and head atraumatic Neurologic: PERRL, EOMI, accommodation nl, no face palsy, no dysarthria Psychiatric: A+Ox3, euthymic affect Results & Data Vital Signs (Past 12 Hours) Vital Signs Temp Pulse Resp BP BP Pulse Ox 05/08/19 07:41 37.2 C 91 H 18 148/80 H 96 05/08/19 07:13 75 18 97 05/08/19 03:33 84 20 97 05/08/19 03:00 36.3 C L 69 18 123/63 94 05/07/19 23:40 36.7 C 74 18 131/64 96 05/07/19 23:08 84 24 96
--- NOTE | 2019-05-08 11:23 | Pharmacy Report ---
Glycemic Control Progress Note - Date of Service May 08, 2019 - Scope Glycemic Pharmacist consulted for glycemic control to write orders per [facility] inpatient glycemic control protocol. - Objective Accuchecks BSG(last 24 hours):: 05/07/19 05/07/19 05/07/19 11:12 16:29 20:24 Glucose POC Glucose 113 H 219 H 186 H 05/07/19 05/08/19 05/08/19 23:15 05:40 07:30 Glucose 80 POC Glucose 70 81 HbA1c:: Hemoglobin A1c 9.0 % (4.5-5.6) H 05/04/19 15:52 - Recent Pertinent Medications The patient is currently receiving: * Basal insulin: Lantus 50 units every 24 hours with dinner PLUS NPH 40 units in the morning. * Correctional Insulin: Novolog Correction per scale ACHS Goal Range: Low 110 mg/dL - High 140 mg/dL Correction Factor: 10 mg/dL/unit * Prandial insulin: Per carb ratio of 1 unit per 3 grams CHO consumed - Outpatient Anti-Diabetic Meds Novolin 70/30 55 units in the morning and 35 units in the evening - Assessment & Plan ASSESSMENT: * See progress note from 05/04/19 for more background info, in short: * Pt receiving SQ basal bolus insulin regimen for hyperglycemia secondary to baseline DM (outpatient regimen on hold) and Solu-Medrol 40 mg IV daily (stopped today). * Patient is currently receiving an average of 175 units of insulin per day * 50 units of Lantus plus 36 units of NPH * 89 units of prandial/correctional insulin * BSGs ranging 113 - 219 mg/dl over the past 24hrs * Changes needed to insulin regimen: * AM Fasting BSG = 80 mg/dl. This is below goal range for patient based on inpatient targets and co-morbidities. The patient's Solu-Medrol was placed on hold after pharmacist had evaluated patient. Lantus will be d/c'ed since patient typically receives 70/30 at home. * Post-prandial BSGs are elevated. The patient was given the NPH this morning even with label comments that said "give with Solu-Medrol" -- Solu-Medrol was not given. Patient was hypoglycemic at lunch. Expect NPH to "wear off" by dinner. Lantus given yesterday will most likely carry over to tomorrow. Will give scale of NPH this evening. Only to receive NPH if patient's blood sugar over 160 mg/dL (which would indicate patient was recovered). Loosened CF/CR significantly for right now. Increased goal range. * Total daily dose = ? units. Patient off of steroids for now. Also patient use to require around 100 units while inhouse but that was when she was on significantly more insulin at home. PLAN FOR INPATIENT GLYCEMIC CONTROL: * D/C Lantus; start NPH BIDM with no insulin for blood sugar under 160 mg/L; 10 units for BSG 160-180 mgd/L; and 20 units for BSG greater than 180 mg/dL * LOOSENING correction factor to 30 mg/dl/unit * LOOSENING carb ratio to 1 unit per 10 grams CHO consumed * Changing goal range to Low 140 mg/dL - High 180 mg/dL RECOMMENDATIONS FOR DISCHARGE: * Patient's HbA1C has improved significantly. Continue to work without patient provider to improve. * Please note that the plan above was derived based on current level of insulin resistance and hospital stress. These recommendations are appropriate for inpatient admission only. Plan of care upon discharge will need to be reassessed to avoid potential outpatient hypo/hyperglycemia. Thank you.
[2019-05-08] MEDS: Heparin Adult LOW DOSE Wt-Based Dextrose 5% 25,000 units/500 mL IV SCH (15:00)
[2019-05-08] MEDS ORDERED: INSULIN GLARGINE SOLOSTAR 100 UNITS/ML 3 ML PEN SC SCH (16:30)
[2019-05-08] MEDS: INSULIN HUMAN NPH SC SCH (17:12)
[2019-05-08] MEDS: ROPINIROLE HCL 1 MG TABLET PO SCH (20:39)
[2019-05-08] MEDS: TRAZODONE HCL 50 MG TAB PO SCH (20:39)
[2019-05-08] MEDS: predniSONE 50 MG TAB PO SCH (20:40)
[2019-05-08] MEDS: MIRTAZAPINE SOLTAB 15 MG PO SCH (20:41)
[2019-05-09] MEDS: predniSONE 50 MG TAB PO SCH (02:21)
[2019-05-09] MEDS: ALBUT/IPRATROP 3MG/0.5MG NEB 3 ML VIAL NEB SCH ×2 (03:11→07:04)
[2019-05-09] MEDS: NITROGLYCERIN 2% OINTMENT 30GM TUBE EXT SCH ×4 (03:59→21:47)
[2019-05-09 05:24] LABS: Partial Thromboplastin Ratio 1.9
[2019-05-09] MEDS ORDERED: INSULIN HUMAN NPH SC SCH ×2 (07:30)
--- NOTE | 2019-05-09 07:32 | Consultation Report ---
DATE OF CONSULTATION: 05/06/2019 HISTORY OF PRESENT ILLNESS: Angelica is a very pleasant 78-year-old female who was admitted to [facility] on the medicine service for low back pain and sciatic-type symptoms. She describes that she has not had any falls or trauma. The pain has been going on for about 2 weeks. She has noticed that she is starting to get a little bit weak in her left lower extremity. She is having a difficult time lifting up her foot. In her lower extremity, sometimes she feels like she is going to fall when she gets electric shocks radiating down her left lower extremity. Prior to this episode, which started 2 weeks ago, she says that she has not had any prior history of any low back pain. PHYSICAL EXAMINATION: GENERAL: Angelica is a 78-year-old female who is alert and oriented and conversive in bed. She is in pain while lying supine. MUSCULOSKELETAL: She has no pain with straight leg raise on the right side or the left side. Reflexes were 2/4 patellar and Achilles bilaterally. She is able to do a straight leg raise while she is supine in the bed. She is able to dorsiflex and plantarflex; however, I would measure her strength with plantar flexion at 4+/5, dorsiflexion is about 4/5 when compared to the right side. There is no visible atrophy of her left lower extremity versus the right. IMAGING DATA: X-rays, which were taken at [facility] were reviewed today. She does have appropriate lordosis. There is evidence of osteopenia. She does have a collapsed disk at L5-S1 with foraminal narrowing. No spondylolisthesis was noted. ASSESSMENT: Low back pain with sciatica radiating down her right lower extremity with associated weakness. PLAN: At this time, recommend picking up an MRI or a CT myelogram of her lumbar spine to determine if this is a discogenic problem or a stenosis-type problem. Continue with the recommendations of the hospitalist as far as the gabapentin and pain control. She is diabetic and she states that she does not tolerate prednisone very well because of her blood sugars. She states that she is able to take anti-inflammatories. May consider adding on a short course of ketorolac with the gabapentin and other pain medication. I discussed this case in detail with Dr. Yonas Brasher on 05/06/2019.
[2019-05-09] MEDS: INSULIN ASPART 100 UNITS/ML 3 ML PEN SC SCH ×5 (08:05→23:46)
[2019-05-09] MEDS: GABAPENTIN 300 MG CAP PO SCH ×2 (08:11→13:51)
[2019-05-09] MEDS: ATORVASTATIN 40 MG TAB PO SCH (08:11)
[2019-05-09] MEDS: ISOSORBIDE MONO EXTENDED REL 30 MG TABCR PO SCH (08:11)
[2019-05-09] MEDS: METOPROLOL TARTRATE 50 MG TAB PO SCH ×2 (08:11→21:40)
[2019-05-09] MEDS: BENZONATATE 100 MG CAPSULE PO SCH ×3 (08:12→21:39)
[2019-05-09] MEDS: ASPIRIN 81 MG ECTAB PO SCH (08:12)
[2019-05-09] MEDS: SODIUM CHLORIDE 0.9% 500 ML IV SCH ×2 (08:13→16:14)
--- NOTE | 2019-05-09 08:41 | Pain Management Consultation ---
Date of Consultation May 09, 2019 Assessment & Plan (1) Peripheral polyneuropathy: 1. Patient presenting with nondermatomal left lower extremity pain consistent with neuropathic etiology with prior history of peripheral sensory greater than motor polyneuropathy per EMG 2018 in the setting of post CVA and insulin-dependent diabetes mellitus. There is nothing based on current lumbar spine MRI to suggest a radiculopathy or radicular pattern to her current pain complaints. This was discussed in great detail with the patient verbalized understanding. 2. Will progress gabapentin 300 mg twice daily and 600 mg nightly 3. Patient to utilize Nucynta 50 mg every 6 hours PRN for breakthrough pain. Side effects versus benefits were discussed. 4. Recommend patient undergo further follow-up with neurology upon discharge 5. Considering a trial of compounded cream applied to the left lower extremity could be considered in the outpatient setting 6. There is no role for interventional treatment at this time. Thank you for allowing us to participate in the care of Mrs. Lassiter. Present on Admission?: Yes (2) Numbness and tingling of left leg: Present on Admission?: Yes (3) CAD (coronary artery disease): Present on Admission?: Yes (4) History of CVA (cerebrovascular accident): Present on Admission?: Yes History of Present Illness Reason for Consultation: Left lower extremity pain Attending Physician: Jacky Min MD History of Present Illness Mrs. Lassiter is a 78-year-old white female who was admitted due to complaints of chest pain. Patient has history of CAD, prior CVA and diabetes mellitus on insulin therapy who is planned for cardiac catheterization later today. Patient has had persistent complaints of left lower extremity pain upon this admission. She reported a flare of this pain approximately 1-2 weeks prior to this ad mission. She does report a history of similar pain over the past many years similar in location and characteristic which had previously been treated successfully with gabapentin. Patient reports the pain is in the left lower extremity below the level of the knee in a nondermatomal pattern traveling to the toes. She reports the pain is episodic described as sharp, burning and tingling with pins and needle sensation. She denied sleep interference last evening but has had increased levels of pain this morning in the left lower extremity. She denies low back or a lumbar radicular pain pattern. She has previously had treatment with gabapentin therapy which had been diminished in the outpatient setting due to some sedation reportedly dosed at 800 mg twice daily. Her dose had been recently reduced to 300 mg twice daily per her report but increased to 3 times daily upon this admission. Patient reports her pain is a 0-1/10 at its best and a 10/10 at its worst. She denies history of similar pain complaints in the right lower extremity. She does have history of a prior left ankle surgery from a fracture from a fall many years ago. Patient reports diabetes mellitus which has been insulin-dependent for approximately 10 years in duration. Upon questioning she does report a prior history of EMG in the outpatient setting through [facility] neurology. 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 She also reports a CVA in January of this year with minimal overall change in her weakness complaints. She is unable to recall direct relationship between the time of her CVA and onset of her left lower extremity pain complaints many years ago. Patient has no further constitutional complaints. Plan of care discussed with Dr. Johansen. Pain Assessment Full Body Front + Back: 1. Entire left lower extremity below the knee 2. Entire left lower extremity below the knee Pain scale - at its best (0-10): 0 Pain scale - at its worst (0-10): 10 Allergies Allergy/AdvReac Type Severity Reaction Status Date / Time Iodinated Contrast- Oral and Allergy Severe RASH TO Verified 05/04/19 17:01 IV Dye IVP DYE,NAUSEA, FAINTING, COUGHING, GAGGING, HEADACH Sulfa (Sulfonamide Allergy Severe HIVES, Verified 05/04/19 17:01 Antibiotics) FACIAL AND ARM SWELLING cerivastatin Allergy Intermediate HIVES Verified 05/04/19 17:01 codeine Allergy Intermediate "PRICKLY Verified 05/04/19 17:01 RASH" hydroxyzine Allergy Intermediate N/V Verified 05/04/19 17:01 latex Allergy Intermediate DERMATITIS-PT Verified 05/04/19 17:01 TOLERATED A LATEX CATHETER 03/26/08 Bactrim Allergy Mild RASH Verified 04/29/18 14:40 diphenhydramine Allergy Mild RASH; Verified 05/04/19 17:01 SLEEPINESS WITH "PHARBEDRYL" loratadine Allergy Mild HIVES Verified 05/04/19 17:01 sulfamethoxazole Allergy Mild RASH Verified 05/04/19 17:01 trimethoprim Allergy Mild RASH Verified 02/18/19 13:50 prednisone Allergy Unknown elevates Verified 02/18/19 13:50 blood sugar tetanus toxoid, adsorbed AdvReac Intermediate SWELLING Verified 02/18/19 13:50 AT INJECTION SITE alprazolam AdvReac Unknown "SLEEPY Verified 02/18/19 13:50 STUPER" metformin AdvReac Unknown DIARRHEA Verified 02/18/19 13:50 morphine AdvReac Unknown VOMITING Verified 02/18/19 13:50 simvastatin AdvReac Unknown COUGH, Verified 02/18/19 13:50 "DISCOMFORT" Home Medications Home Medications Medication Instructions Recorded Confirmed Type amlodipine [Norvasc] 10 mg PO QAM 08/24/18 05/04/19 History aspirin 1 tab PO QPM 08/24/18 05/04/19 History dicyclomine 10 mg PO TID PRN 08/24/18 05/04/19 History docusate sodium [Colace] 100 mg PO DAILY PRN 08/24/18 05/04/19 History fluticasone propionate [Flonase 2 spray INTRANASAL QPM PRN 08/24/18 05/04/19 History Allergy Relief] gabapentin [Neurontin] 800 mg PO HS 08/24/18 05/04/19 History lorazepam [Ativan] 0.5 mg PO Q6 PRN 08/24/18 05/04/19 History magnesium oxide 400 mg PO QAM 08/24/18 05/04/19 History ondansetron HCl [Zofran] 4 mg PO QID PRN 08/24/18 05/04/19 History ranitidine HCl [Zantac 75] 75 mg PO BID 08/24/18 05/04/19 History trazodone 50 mg PO HS 08/24/18 05/04/19 History albuterol sulfate 2.5 mg INHALATION QID PRN 01/26/19 05/04/19 History levocetirizine [Xyzal] 2.5 mg PO QPM 01/26/19 05/04/19 History losartan 100 mg PO QAM 01/26/19 05/04/19 History mirtazapine 45 mg PO HS 01/26/19 05/04/19 History ropinirole 1 mg PO HS 01/26/19 05/04/19 History atorvastatin 40 mg PO QAM #30 tab 01/28/19 05/04/19 Rx clopidogrel 75 mg PO QAM #30 tab 01/28/19 05/04/19 Rx isosorbide mononitrate 30 mg PO QAM #30 tab 01/28/19 05/04/19 Rx nitroglycerin [Nitrostat] 0.4 mg SUBLINGUAL PRN PRN #30 tab 01/28/19 05/04/19 Rx metoprolol tartrate [Lopressor] 25 mg PO BID #0 tab 02/02/19 05/04/19 Rx albuterol sulfate [Proventil HFA] 2 puff INHALATION Q4 PRN 05/04/19 05/04/19 History insulin NPH and regular human 35 unit SUBCUT QPM 05/04/19 05/04/19 History [Novolin 70/30 U-100 Insulin] insulin NPH and regular human 55 unit SUBCUT QAM 05/04/19 05/04/19 History [Novolin 70/30 U-100 Insulin] Pain History Pain Intensity Pain scale - at its best (0-10): 0 Pain scale - at its worst (0-10): 10 Patient History Medical History Osteoarthritis (Chronic) Seasonal allergies (Chronic) Aortic stenosis (Chronic) mild. Pancreatitis Acute CVA (cerebrovascular accident) Elevated troponin Weakness Pre-syncope Leukocytosis Pneumonia Valvular heart disease Non-STEMI (non-ST elevated myocardial infarction) Left bundle branch block Giant cell arteritis (Resolved) Gastroparesis (Chronic) Dyslipidemia (Chronic) Depression (Chronic) HTN (hypertension) (Chronic) Insomnia (Chronic) RLS (restless legs syndrome) (Chronic) Peripheral neuropathy (Chronic) Pancreatic cyst (Chronic) Anxiety (Chronic) COPD (chronic obstructive pulmonary disease) (Chronic) Diabetes mellitus, type II (Chronic) Sleep apnea (Chronic) Chronic pancreatitis (Chronic) Cerebrovascular disease (Chronic) "history stroke and TIA" L sided weakness. Fatty liver (Chronic) Esophageal dysmotility (Chronic) Gastroparesis (Chronic) Pancreatic divisum (Chronic) CKD (chronic kidney disease), stage III (Chronic) Surgical History History of ERCP (Resolved) x3 with stents. ERCP 04/30/18. MAC 3, grade 2 view. 7.0 ETT placed. No issues. History of colonoscopy (Resolved) History of bilateral tubal ligation (Resolved) S/P cardiac catheterization (Resolved) History of cataract surgery (Chronic) both eyes Family History Daughter No problems noted. 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 Speech and thought process appropriate. Mood and affect appropriate. Cognition intact. Head: Normocephalic and atraumatic. ENT: No evidence of nasal or oral mucosal lesions. Mucous membranes are moist. Neck: Supple without adenopathy and full range of motion. Chest: Nontender to palpation of the costosternal junction. Abdomen: Soft and nondistended. No organomegaly. Bowel sounds active. Back/spine: Loss of lumbar lordosis. Patient able to logroll towards her right side for visual inspection without visible abnormalities. Nontender over the midline, facet joints or SI joints to provocative testing. Nontender in the paravertebral, quadratus lumborum or gluteal musculature. Lower extremities: SLR negative bilaterally. Strength testing 4/5 the left lower extremity and 4+/5 in the right lower extremity without focal deficit. Well-healed surgical incision over the left anterior medial malleolar region. Sensation is diminished to light touch over the left lower extremity below the level of the knee in a nondermatomal pattern when compared to the right. Patient has mild allodynia and a slightly hyperpathic response to pinch in a nondermatomal pattern below the level of the knee. No evidence of edema, erythema or skin breakdown. Dorsalis pedis and posterior tibial pulses are 2+ and equal bilaterally. Neurologic: Cranial nerves grossly intact. Ambulatory function not witnessed. Results Diagnostic Review MRI: non enhanced and reports reviewed MRI Findings: [facility] [place], [place] [phone] Magnetic Resonance Report Patient: PALLAVI LASSITER Date: 05/04/19 MR#: [id number]: 149 YESSICA Acct ID:[id number]: [facility] 1940[facility] [place] [address] Age: 78Location: 2S Sex: F Room/Bed: [facility] Att Phy: Jacky Min, MDDiagnosis: HYPERGLYCEMIA,CHEST PAIN,LEFT LEG PAIN, NEUROPATHY Tosha Phy: Colleen Jefferson, DOService Date: 05/06/19 Fam Phy: Interpreting Phy: Brijesh Jeter MD Admit Phy: Jacky Min MD Ordering Phy: Toño Celeste PA-C cc: ~ MRI OF THE LUMBAR SPINE WITHOUT CONTRAST CLINICAL HISTORY: Left lower extremity weakness. Radiculopathy. COMPARISON STUDY: Lumbar spine CT January 24, 2017. Lumbar spine radiographs May 05, 2019. Lumbar spine MRI September 27, 2010. TECHNIQUE: Utilizing a 1.5 Violet magnet and dedicated coil, multiplanar, multiecho imaging of the lumbar spine was performed without IV contrast. FINDINGS: For purposes of numbering on this exam, the L5-S1 disc space is assigned to axial image 23 of 25. Alignment of the lumbar spine is anatomic. Vertebral body heights are maintained. There is no suspicious marrow replacement. There is a hemangioma within the L4 vertebral body. There is no intracanalicular mass or fluid collection. Conus terminates at the mid L1 level. Paravertebral soft tissues are unremarkable. There is moderate disc space narrowing at L5-S1. The appearance of the lumbar spine is similar to MRI of October 07, 2010. L1-2: The central canal and neural foramen are patent. L2-3: The central canal and neural foramen are patent. L3-4: The central canal and neural foramen are patent. L4-5: There is moderate facet arthrosis. The central canal is patent. There is mild bilateral neural foraminal narrowing. L5-S1: Note is made of moderate disc space narrowing with mild disc bulge. There is facet arthrosis. There is prominent epidural fat. Central canal is patent. There is mild bilateral neural foraminal stenosis. IMPRESSION: 1. No acute abnormality within the lumbar spine by MRI. 2. No significant change since MRI of October 07, 2010. Moderate disc space narrowing at L5-S1 with disc bulge. Facet arthrosis. Mild bilateral neural foraminal narrowing at L4-L5 and L5-S1 which is unchanged. 3. Patent central canal. Electronically signed by: Brijesh Jeter M.D. 05/06/2019 8:55 PM Dictated: 05/06/192049 Transcribed: 05/06/192049 Radiology: reports reviewed Radiology Findings: [place], [place] [phone] XRay Report Patient: PALLAVI LASSITER Date: 05/04/19 MR#: [id number]: 149 YESSICA Acct ID:[id number]: Date: 1940[facility] Zip: [place] [address] Age: 78Location: 2S Sex: F Room/Bed: [facility] Att Phy: Jacky Min, EMILIEiagnosis: HYPERGLYCEMIA,CHEST PAIN,LEFT LEG PAIN, NEUROPATHY Tosha Phy: Colleen Jefferson, DOService Date: 05/05/19 Fam Phy: Interpreting Phy: Paul Coronado MD Admit Phy: Jacky Min MD Ordering Phy: Jacky Min MD cc: ~ XR hip LT 2-3V w pelvis CLINICAL HISTORY: 78 years-old Female presenting with left leg pain, rule out fracture or obvious cause of sciatica. TECHNIQUE: Single frontal view of the pelvis and frontal and frog-leg lateral views of the left hip were obtained. COMPARISON: Correlation made to CT of abdomen and pelvis from 04/13/2018. FINDINGS: Suspected underlying osteopenia. Sacroiliac joints, pubic symphysis, and hip joints congruent. Arcuate lines of the sacrum grossly intact. Lower lumbar spine normal. Femoral necks are grossly intact. Specifically, the left hip joint demonstrates no advanced degenerative change or evidence of a femoral neck fracture. Atherosclerosis. Numerous pelvic phleboliths. IMPRESSION: Allowing for osteopenia, no acute osseous injury of the pelvis or left hip. Electronically signed by: Paul Coronado M.D. 05/05/2019 10:31 PM Dictated: 05/05/192229 Transcribed: 05/05/192229 [facility] [place], [place] [phone] XRay Report Patient: PALLAVI LASSITER Date: 05/04/19 MR#: [id number]: 149 CAPSARAH BETHELLA Acct ID:[id number]: Date: 1940City Zip: [place] [address] Age: 78Location: 2S Sex: F Room/Bed: [facility] Att Phy: Jacky Min, MDDiagnosis: HYPERGLYCEMIA,CHEST PAIN,LEFT LEG PAIN, NEUROPATHY Tosha Phy: Colleen Jefferson, DOService Date: 05/05/19 Fam Phy: Interpreting Phy: Paul Coronado MD Admit Phy: Jacky Min MD Ordering Phy: Jacky Min MD cc: ~ XR lumbar spine min 4V routine CLINICAL HISTORY: 78 years-old Female presenting with left leg pain, rule out fracture or obvious causes of sciatica. TECHNIQUE: Frontal, bilateral oblique, lateral, coned-down lateral views of the lumbar spine were obtained. COMPARISON: 01/28/2016. FINDINGS: No significant scoliosis. No pars defect is appreciated. Normal lumbar lordosis. Anterior osteophytosis evident. Vertebral bodies maintain normal height and alignment. Intervertebral disc height loss greatest at L5-S1 and to a mild degree at L2-3. Vacuum disc phenomenon also noted at L5-S1. Osseous neural foraminal narrowing may be present at L5-S1. No radiographic evidence of fracture or subluxation. Atherosclerosis of the abdominal aorta. Cholecystectomy clips noted. Moderate stool burden throughout the colon. IMPRESSION: 1. No radiographic evidence of acute osseous injury. 2. Multilevel degenerative changes with suspected osseous neural foraminal narrowing at L5-S1. 3. Moderate stool burden suggest constipation. Electronically signed by: Paul Coronado M.D. 05/05/2019 10:30 PM Dictated: 05/05/192227 Transcribed: 05/05/192227 Other Findings: [facility] [place], [place] [phone] Ultrasound Report Patient: PALLAVI LASSITER Date: 05/04/19 MR#: [id number]: 149 YESS[address] Acct ID:[id number]: Date: 1940City Zip: [place] [address] Age: 78Location: 2S Sex: F Room/Bed: [facility] Att Phy: Jacky Min, [facility]: HYPERGLYCEMIA,CHEST PAIN,LEFT LEG PAIN, NEUROPATHY Tosha Phy: Colleen Jefferson, DOService Date: 05/07/19 Fam Phy: Interpreting Phy: Brijesh Jeter MD Admit Phy: Jacky Min MD Ordering Phy: Jacky Min MD cc: ~ LEFT LOWER EXTREMITY ARTERIAL DOPPLER ULTRASOUND CLINICAL HISTORY: rule out arterial occlusion COMPARISON STUDY: No previous studies for comparison. TECHNIQUE: Color and duplex Doppler sonography sonography of the arterial system of the left lower extremity was performed. FINDINGS: The right ankle to brachial index was normal. Left ankle brachial index could not be obtained as the posterior tibial and dorsalis pedis vessels were noncompressible. Biphasic flow is identified within the left common femoral , profunda, superficial femoral and popliteal arteries. No elevated velocities were identified. There was monophasic flow within the left anterior tibial, posterior tibial, peroneal and dorsalis pedis vessels. Mild atherosclerotic plaque was noted. IMPRESSION: 1. Mild to moderate atherosclerotic plaque within the left lower extremity without evidence for a hemodynamically significant stenosis. 2. Biphasic flow within left common femoral, superficial femoral and popliteal arteries with monophasic flow within the left calf vessels. 3. Unable to obtain ankle to brachial indices given noncompressibility of the vessels. Electronically signed by: Brijesh Jeter M.D. 05/08/2019 8:58 AM Dictated: 05/08/19 0853 Transcribed: 05/08/19 0853 Previous Records Review Previous Records: personally reviewed by me Previous Records Findings: Outpatient EMG completed [facility] dated 06/22/2018 was reviewed which revealed the following conclusion: Evidence of a sensory greater than motor polyneuropathy. There was mild evidence of a left L4 radiculopathy. Clinically difficult to needle the left iliopsoas, which may be related to weakness and atrophy. This could be explained by a left L4 radiculopathy, but clinically may represent diabetic amyotrophy. Report read by Roxana Rizzo MD.
[2019-05-09] MEDS ORDERED: predniSONE 50 MG TAB PO SCH (09:00)
[2019-05-09] MEDS: AMLODIPINE BESYLATE 5 MG TAB PO SCH (09:02)
[2019-05-09] MEDS: CLOPIDOGREL BISULFATE 75 MG TAB PO SCH (09:02)
[2019-05-09] MEDS ORDERED: TAPENTADOL HCL 50 MG TAB PO PRN (09:06)
[2019-05-09] MEDS: Heparin Adult LOW DOSE Wt-Based Dextrose 5% 25,000 units/500 mL IV SCH (09:21)
--- NOTE | 2019-05-09 10:54 | Cardiology Progress Note ---
Date of Service May 09, 2019 Assessment & Plan (1) Chest pain: Mildly elevated troponin suggestive of possible acute coronary syndrome versus demand ischemia in the setting of acute bronchitis. ECG nondiagnostic due to presence of intermittent left bundle branch block. Chest pain-free overnight. Risk versus benefit of cardiac catheterization discussed with patient. She is agreeable. Pretreated with oral prednisone and Benadryl due to history of contrast allergy. We will proceed with cardiac catheterization as scheduled today. IV heparin on hold. Gentle IV hydration ordered due to chronic kidney disease. (2) Left bundle branch block: Intermittent. NSTEMI in January 2019 s/p drug-eluting stent placement to the circumflex coronary artery and right coronary artery on 01/26/2019. Later that month she was readmitted with findings of a frontal lobe stroke. (3) Elevated troponin I level: Subjective Patient seen and examined at the bedside. Cough improved. Received oral prednisone overnight in preparation for cardiac catheterization. No dysrhythmias on telemetry. Denies recurrent chest pain overnight. IV heparin placed on hold at 8 AM. Review of Systems Review of Systems: All systems reviewed & are unremarkable except as noted in HPI & below Physical Exam Physical Exam: General: NAD, AAO x3, chronically ill. HEENT: Normocephalic. Atraumatic. Conjunctiva pink, no scleral icterus. Neck: No carotid bruits, the carotid upstrokes are brisk. No JVD. No HJR Heart: Regular normal S-1 and S-2 no S-3 or S-4 gallop. No murmurs or rub appreciated. PMI is not displaced. No RV heave. Lungs: Diminished breath sounds bilateral, scattered rhonchi. Abdomen: Normal bowel sounds. Soft. Nontender. No masses or organomegaly. No abdominal bruits. Extremities: No clubbing, cyanosis, or edema. Pulses: radial=2/4, Michael salis pedis =2/4, posterior tibial=2/4. Neuro: Cranial nerves grossly intact. No focal motor deficit. Results & Data Vital Signs (Past 12 Hours) Vital Signs Temp Pulse Pulse Resp BP Pulse Ox 05/09/19 07:50 36.9 C 81 20 152/67 H 94 05/09/19 07:05 81 16 96 05/09/19 04:00 36.7 C 75 20 151/77 H 96 05/09/19 00:00 88 05/08/19 23:55 36.8 C 79 19 144/71 H 95 05/08/19 23:03 86 20 97
--- NOTE | 2019-05-09 12:04 | Hospitalist Progress Note ---
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 Pt requiring ~ 100 units/insulin per day as of 05/05/19 -will continue insulin as per pharmacy glycemic control consult as steroids (methylprednisone) was started on 05/05/19 -IV solumedrol held of 05/08/19 and cardiology started oral prednisone Diabetic Neuropathy as per history -increases have been made to gabapentin; was on 800 mg QHS at home, during hospital course she was placed on gabapentin 300 mg TID to give more pain management coverage throughout the day; -pain management note 05/09/19: progress gabapentin 300 mg twice daily and 600 mg nightly; Patient to utilize Nucynta 50 mg every 6 hours PRN for breakthrough pain Left leg pain -left flank with pain on palpation -left leg pain with tingling x 1 week at home -gabapentin as above -initially though to be due to sciatica but as per orthopedic evaluations and MRI imaging the imaging studies do not support sciatica as cause of leg pain -left leg arterial ultrasound without remarkable results: Mild to moderate at herosclerotic plaque within the left lower extremity without evidence for a hemodynamically significant stenosis -PT/OT evaluations with patient being able to ambulate -pain management note 05/09/19: progress gabapentin 300 mg twice daily and 600 mg nightly; Patient to utilize Nucynta 50 mg every 6 hours PRN for breakthrough pain Chest Pain history of cardiac stents -patient with chest pain (pain is beneath left breast) x 1 day when at home -reports that the chest pain relieved with nitro -troponins negative x 3 and resting echocardiogram without obvious ischemia -seen by cardiology service which recommended nuclear stress testing when breathing is improved -evening on 05/06/19, patient with complaints of persistent chest pain. cardiology service started nitropaste. Patient made positive troponins. Nocturnalist started patient on heparin drip on 05/07/19. Patient seen and examined this evening while on heparin drip. -continue home dose aspirin and plavix -continue home dose imdur, metoprolol tartrate -heparin drip stopped on 05/09/19 and cardiac catheterization to be done by cardiology service on 05/09/19 Asthma exacerbation vs bronchitis vs exacerbation of GERD -Coughing started when being in hospital following admission day -was given nebulizer treatments -home dose dulera inhaler -was started on IV methylprednisone 40 mg daily since 05/05/19, continue to 05/07/19 and then transitioned to prednisone starting 05/08/19 -start doxycycline 100 mg IV BID empirically on 05/05/19, continue -repeat CXR on 05/05/19 with no evidence of pneumonia -influenza swab negative -will continue steroids, respiratory antibiotics, -hold off scheduled bronchodilaters for now as symptoms improving as of 05/09/19 -continue prn anti-tussives -will hold off further Losartan to avoid any possible allergy reactions to SUMMER inhibitors/ARB - give HCTZ 25 mg on 05/08/[address] losartan -management of GERD Gastroesophageal reflux disease (GERD) -continue home dose BID ranitidine Chronic kidney disease stage III -monitor renal function -cardiology ordered IV fluids prior to cardiac cath History of stroke in the past -reports residual right arm weakness which is chronic -continue home dose aspirin and plavix DVT ppx: on heparin drip Full Code Family Obey, granddaughter [phone] Omi, son in law [phone] Subjective I have seen and examined the patient prior to planned cardiac cath and is off heparin drip. Patient sitting on bed and her speaking and breathing seems to be improved than previous days. She reports some hoarseness still in her voice but it is improved. She currently does not have chest pain. she reports left leg gives her discomfort like pins and needles feeling. She moves all extremities. she is breathing on room air. we discuss medical issues currently and awaiting cardiac cath Physical Exam Constitutional: WD/WN, vitals as above Eyes: PERRL, conjunctivae normal, anicteric sclerae EOM intact bilaterally ENMT: external ear and nose normal, oropharynx normal Neck: trachea midline, no thyromegaly normal visual inspection Respiratory: normal respiratory effort, lungs clear to auscultation Cardiovascular: RRR, no murmur, no edema Gastrointestinal (Abdomen): normal bowel sounds, soft, nontender, no hepatosplenomegaly Musculoskeletal: Head/Neck/Chest: normocephalic and head atraumatic Neurologic: PERRL, EOMI, accommodation nl, no face palsy, no dysarthria Psychiatric: A+Ox3, euthymic affect Results & Data Vital Signs (Past 12 Hours) Vital Signs Temp Pulse Resp BP Pulse Ox 05/09/19 07:50 36.9 C 81 20 152/67 H 94 05/09/19 07:05 81 16 96 05/09/19 04:00 36.7 C 75 20 151/77 H 96
[2019-05-09] MEDS ORDERED: MIDAZOLAM HCL 1 MG/ML 2ML VIAL ONE ×2 (14:05→14:42)
[2019-05-09] MEDS ORDERED: fentaNYL citrate 100 MCG/2 ML VIAL ONE (14:05)
[2019-05-09] MEDS ORDERED: NITROGLYCERIN/D5W 100MCG/ML 20ML SYR ONE (14:06)
[2019-05-09] MEDS ORDERED: HEPARIN (PORCINE) 1000 UNIT/ML 10 ML (CATH LAB USE ONLY) ONE (14:06)
[2019-05-09] MEDS ORDERED: NiCARDipine HCL INJ 2.5 MG/ML 10 ML AMP ONE (14:06)
[2019-05-09] MEDS ORDERED: predniSONE 20 MG TAB PO ONE (14:15)
--- NOTE | 2019-05-09 14:21 | Pre Anesthesia Assessment ---
Date of Service May 09, 2019 Pre Sedation Assessment Vital Signs Temp Pulse Pulse Resp BP BP Pulse Ox 05/09/19 11:30 36.3 C L 74 22 137/55 L 94 05/09/19 07:50 36.9 C 81 20 152/67 H 94 05/09/19 07:05 81 16 96 05/09/19 04:00 36.7 C 75 20 151/77 H 96 05/09/19 00:00 88 05/08/19 23:55 36.8 C 79 19 144/71 H 95 05/08/19 23:03 86 20 97 05/08/19 19:36 86 20 96 05/08/19 19:20 36.9 C 86 18 151/77 H 97 05/08/19 15:33 36.7 C 80 18 121/71 97 Cardiovascular + regular rate + S1 normal and + S2 normal Respiratory normal respiratory effort, lungs clear to auscultation Pre-Sedation Airway Assessment Smoking Status: Never smoker NPO Status Date of Last Intake of Fluids: 05/09/19 Date of Last Intake of Solid Food: 05/08/19 Time of Last Intake of Solid Foods: 23:59 Procedure Planning Contraindications for Sedation: none Current Medications Reviewed: Yes Notes The planned sedation has been discussed with the patient. Informed Consent was obtained. I have identified the patient, determined the appropriateness of sedation and have assessed the patient immediately prior to the procedure. All medicine(s) and interventions are by my order.
--- NOTE | 2019-05-09 14:29 | Pharmacy Report ---
Glycemic Control Progress Note - Date of Service May 09, 2019 - Scope Glycemic Pharmacist consulted for glycemic control to write orders per [facility] inpatient glycemic control protocol. - Objective Accuchecks BSG(last 24 hours):: 05/08/19 05/08/19 05/09/19 16:09 20:07 07:28 POC Glucose 173 H 232 H 329 H* 05/09/19 05/09/19 05/09/19 07:30 10:01 11:30 POC Glucose 315 H* 257 H 207 H HbA1c:: Hemoglobin A1c 9.0 % (4.5-5.6) H 05/04/19 15:52 - Recent Pertinent Medications The patient is currently receiving: * Basal insulin: NPH 40 units in the morning then 0-20 units with dinner * Correctional Insulin: Novolog Correction per scale ACHS Goal Range: Low 110 mg/dL - High 140 mg/dL Correction Factor: 25 mg/dL/unit * Prandial insulin: Per carb ratio of 1 unit per 8 grams CHO consumed - Outpatient Anti-Diabetic Meds Novolin 70/30 - 55 units in the morning and 35 units in the PM - Assessment & Plan ASSESSMENT: * See progress note from 05/04/19 for more background info, in short: * Pt receiving SQ basal bolus insulin regimen for hyperglycemia secondary to baseline DM (outpatient regimen on hold); received three doses of prednisone 50 mg (last dose this morning at 0900). She is on a heparin drip and NPO for c atheterization. * Patient is currently receiving an average of 96 units of insulin per day * 50 units of basal insulin * 46 units of prandial/correctional insulin * BSGs ranging 50 - 232 mg/dl over the past 24hrs * Changes needed to insulin regimen: * AM Fasting BSG = 329 mg/dl. This is above goal range for patient based on inpatient targets and co-morbidities- This is secondary to two doses of prednisone 50 mg. Will give NPH 40 units this morning to correspond with prednisone. Continue NPH twice daily since patient is on 70/30 at home. Will utilize scale of 0-20 units for both breakfast and dinner starting tonight. Previously patient was on significantly more insulin; however, now with better A1C she is taking less insulin. * Post-prandial BSGs were elevated yesterday. Tightened since patient received steroids and important to tackle steroid induced hyperglycemia with Novolog. Will use CF 10 and CR of 4. This is slightly looser than when patient received Solu-Medrol 40 mg. (These are equivalent doses). * Total daily dose = 100 units when on steroids and unknown currently when not on steroids. PLAN FOR INPATIENT GLYCEMIC CONTROL: * NPH 40 units SQ x 1 then 0-20 units SQ BID * 0 units if blood sugar under 100 mg/dL * 10 units if blood sugar 100-140 mg/dL * 20 units if blood sugar greater than 140 mg/dL * Continuing correction factor of 10 mg/dl/unit * Continuing carb ratio of 1 unit per 4 grams CHO consumed * Continuing goal range to Low 120 mg/dL - High 160 mg/dL RECOMMENDATIONS FOR DISCHARGE: * see previous day's note * Please note that the plan above was derived based on current level of insulin resistance and hospital stress. These recommendations are appropriate for inpatient admission only. Plan of care upon discharge will need to be reassessed to avoid potential outpatient hypo/hyperglycemia. Thank you.
--- NOTE | 2019-05-09 15:16 | Post Anesthesia Assessment ---
Date of Service May 09, 2019 Post Sedation Assessment Vital Signs Temp Pulse Pulse Resp BP BP Pulse Ox 05/09/19 11:30 36.3 C L 74 22 137/55 L 94 05/09/19 07:50 36.9 C 81 20 152/67 H 94 05/09/19 07:05 81 16 96 05/09/19 04:00 36.7 C 75 20 151/77 H 96 05/09/19 00:00 88 05/08/19 23:55 36.8 C 79 19 144/71 H 95 05/08/19 23:03 86 20 97 05/08/19 19:36 86 20 96 05/08/19 19:20 36.9 C 86 18 151/77 H 97 05/08/19 15:33 36.7 C 80 18 121/71 97 Recovery Score Activity: Moves 4 extremities Respiration: Deep Breath/Cough Circulation: +/-20% PreAnes Value Oxygen Saturation: > 92% On Room Air Post Sedation Plan On clinical assessment, the patient appears to have tolerated the sedation without complications. Patient is recovering as anticipated. Patient will continue to be monitored by nursing and may be discharged when sedation discharge criteria are met per below protocol. Upon Completions of procedure and additional 15 minutes continue every 5 minute vital signs and the P.A.R. score; then discharge to a Phase I or Fast Track to Phase II per the following guidelines: * Discharge Patient to appropriate Phase II area if PAR is 8 or greater or return to pre- procedure baseline. The post - procedure orders will be as directed. * If PAR score is less than 8 or not return to pre-procedure baseline then patient will follow Phase I monitoring till PAR is reached for Phase II. The Phase I may be done in procedure room or may call to secure a Phase I area. * If naloxone or flumazenil are used for reversal, hold in Phase I for continued monitoring from when last reversal dose was given for a minimum of 60 minutes or longer pending the nurse and/or physician discretion of patient condition before discharge to Phase II. Please call the Sedation Physician to re-evaluate and complete post-note for discharge to Phase II area. Do NOT discharge from procedure sedation or Phase 1 until post- sedation evaluation note is complete by procedure /sedation MD Sedation Discharge Instructions to be given to the patient at discharge to home.
--- NOTE | 2019-05-09 15:29 | Cardiac Catheterization ---
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 Hemodynamics Rest Ao:: 109/50/74 Final Ao: 127/49/81 LV: 145/0/8 Recommendations Recommendations: Medical Therapy and/or Counseling Specimens Specimens: None Radiation Exposure (mGy) 828 Contrast (mls) 55 Fluids (cc crystalloids) Fluids (cc crystalloids): 100cc Nss Anesthesia Moderate sedation. Start 14:23, and 15:13. Sedation monitor: Umair QUINTERO Procedural Complication(s) None Disposition PCU ACC Data: Permastone Installer Cardiac Status Clinical evaluation leading to the procedure CAD Presenation: Non STEMI Anginal Classification: CCS IV Heart Failure: No Cardiogenic Shock within 24 Hours: No Cardiac Arrest within 24 Hours: No Imaging Studies Past 6 Months: Yes Stress Studies Past 6 Months: No STEMI OR Non-STEMI Symptom Onset Date: 05/07/19 Symptom Onset Time: 02:22 Coronary Anatomy Dominant: Right Left Main (% Stenosis): Distal (10%) LAD (% Stenosis): Proximal (30%) and Mid (20%) D1 (% Stenosis): Normal D2 (% Stenosis): Mid (30%) Circumflex (% Stenosis): Mid (40% due to "jailing" with stent that extends from mid Lcx into large second marginal branch. ) OM1 (% Stenosis): Normal (small vessel) RCA (% Stenosis): Proximal (10%, patent stent extends through mid segment. ) and Distal (20%) R PDA (% Stenosis): Mid (mild luminal irregularities, 10-20%) R PL1 (% Stenosis): Mid (mild luminal irregularities, 10-20%) R PL2 (% Stenosis): Mid (mild luminal irregularities, 10-20%) Diagnostic Physicians Name: Monster Barnard DO Status: Urgent Closure Device Percutaneous Entry Location: Femoral (Unable to pass wire via radial access due to vasospasm. Femoral access gained via ultrasound guidance.) Closure Device: Mynx Recommendations: Medical Therapy and/or Counseling Intraprocedure Events Significant Disection: No Perforation: No
[2019-05-09] MEDS: SODIUM CHLORIDE 0.9% 1000ML 1,000 ML IV SCH (17:10)
[2019-05-09] MEDS: INSULIN HUMAN NPH SC SCH (17:11)
[2019-05-09] MEDS ORDERED: ONDANSETRON INJ 2 MG/ML 2 ML VIAL IV PRN (18:56)
[2019-05-09] MEDS ORDERED: GABAPENTIN 600 MG TAB PO SCH (21:00)
[2019-05-09 21:19] LABS: Beta-Hydroxybutyrate 2.45 mg/dl (0.2-2.81)
[2019-05-09] MEDS: TRAZODONE HCL 50 MG TAB PO SCH (21:39)
[2019-05-09] MEDS: MIRTAZAPINE SOLTAB 15 MG PO SCH (21:39)
[2019-05-09] MEDS: ROPINIROLE HCL 1 MG TABLET PO SCH (21:39)
[2019-05-10] MEDS: SODIUM CHLORIDE 0.9% 1000ML 1,000 ML IV SCH (02:29)
[2019-05-10] MEDS: NITROGLYCERIN 2% OINTMENT 30GM TUBE EXT SCH (04:04)
[2019-05-10] MEDS: INSULIN ASPART 100 UNITS/ML 3 ML PEN SC SCH ×2 (04:12→07:44)
[2019-05-10] MEDS: METOPROLOL TARTRATE 50 MG TAB PO SCH (07:37)
[2019-05-10] MEDS: ASPIRIN 81 MG ECTAB PO SCH (07:37)
[2019-05-10] MEDS: CLOPIDOGREL BISULFATE 75 MG TAB PO SCH (07:38)
[2019-05-10] MEDS: AMLODIPINE BESYLATE 5 MG TAB PO SCH (07:38)
[2019-05-10] MEDS: ATORVASTATIN 40 MG TAB PO SCH (07:38)
[2019-05-10] MEDS: ISOSORBIDE MONO EXTENDED REL 30 MG TABCR PO SCH (07:38)
[2019-05-10] MEDS: BENZONATATE 100 MG CAPSULE PO SCH (07:40)
[2019-05-10] MEDS: GABAPENTIN 300 MG CAP PO SCH (07:40)
[2019-05-10 07:54] LABS: Basophils # (auto) 0.01 K/uL (0-0.2); Basophils % (auto) 0.1 %; Hematocrit (blood only) 31.3 % (37-47); Hemoglobin 10.7 g/dL (12.0-16.0); Immature Granulocytes # (auto) 0.19 K/uL (0.00-0.02); Immature Granulocytes % (auto) 1.2 %; Lymphocytes % (auto) 25.9 %; Mean Corpuscular Volume 88.2 fL (80-100); Mean Platelet Volume 9.4 fL (7.4-10.4); Monocytes # (auto) 1.21 K/uL (0.11-0.59); Monocytes % (auto) 7.8 %; Neutrophils # (auto) 10.02 K/uL (1.4-6.5); Nucleated RBC # (auto) 0.02 K/uL (0-0); Nucleated RBC % (auto) 0.1 %; Platelet Count 225 K/uL (130-400); RDW Coefficient of Variation 13.3 % (11.5-14.5); Red Blood Count 3.55 M/uL (4.2-5.4); White Blood Count 15.43 K/uL (4.8-10.8)
[2019-05-10 08:01] LABS: Mean Corpuscular Hgb Conc 34.2 g/dL (32-36)
[2019-05-10] MEDS ORDERED: INSULIN HUMAN NPH SC ONE (08:01)
[2019-05-10 08:13] LABS: Albumin Level 2.6 gm/dl (3.4-5.0); BUN Creatinine Ratio 27.5 (10-20); Calcium 8.5 mg/dl (8.5-10.1); Creatinine Clr Calc Pharmacy 32.6 ml/min; Est GFR (African American) 46.8; Est GFR (Non-African American) 40.4
[2019-05-10 08:16] LABS: Albumin Globulin Ratio 0.8 (0.9-2); Bilirubin,Total 0.3 mg/dl (0.2-1); Globulin 3.4 gm/dl (2.5-4.0)
--- NOTE | 2019-05-10 10:32 | Hospitalist Progress Note ---
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 Pt requiring ~ 100 units/insulin per day as of 05/05/19 -will continue insulin as per pharmacy glycemic control consult as steroids (methylprednisone) was started on 05/05/19 -IV solumedrol held of 05/08/19 and cardiology started oral prednisone -Patient may continue home dose insulin and follow up with primary care doctor for repeat glucose check. Patient advised to cut back on simple sweets and foods that are high in carbohydrates to reduce serum glucose. Diabetic Neuropathy as per history, Left Leg pain secondary to diabetic neuropathy -left flank with pain on palpation -left leg pain with tingling x 1 week at home -gabapentin as above -initially though to be due to sciatica but as per orthopedic evaluations and MRI imaging the imaging studies do not support sciatica as cause of leg pain -left leg arterial ultrasound without remarkable results: Mild to moderate atherosclerotic plaque within the left lower extremity without evidence for a hemodynamically significant stenosis -PT/OT evaluations with patient being able to ambulate -pain management note 05/09/19: progress gabapentin 300 mg twice daily and 600 mg nightly; Patient to utilize Nucynta 50 mg every 6 hours PRN for breakthrough pain -on discharge: Patient can take gabapentin 600 mg BID for leg pain secondary to diabetic neuropathy. Patient was given short trial of Nucynta (tapentadol) 50 mg every 6 hour prn during hospital stay by pain management but this an expensive narcotic pain medication and patient does not appear to require narcotic pain medication for leg discomforts chest pain secondary to coughing history of cardiac stents -patient with chest pain (pain is beneath left breast) x 1 day when at home -reports that the chest pain relieved with nitro -troponins negative x 3 and resting echocardiogram without obvious ischemia -seen by cardiology service which recommended nuclear stress testing when breathing is improved -evening on 05/06/19, patient with complaints of persistent chest pain. cardiology service started nitropaste. Patient made positive troponins. Nocturnalist started patient on heparin drip on 05/07/19. Patient seen and examined this evening while on heparin drip. -continue home dose aspirin and plavix -continue home dose imdur, metoprolol tartrate -heparin drip stopped on 05/09/19 and cardiac catheterization to be done by cardiology service on 05/09/19 -Patient had cardiac cath on 05/09/19 and patient has non obstructive coronary artery disease Dominant: Right Left Main (% Stenosis): Distal (10%) LAD (% Stenosis): Proximal (30%) and Mid (20%) D1 (% Stenosis): Normal D2 (% Stenosis): Mid (30%) Circumflex (% Stenosis): Mid (40% due to "jailing" with stent that extends from mid Lcx into large second marginal branch. ) OM1 (% Stenosis): Normal (small vessel) RCA (% Stenosis): Proximal (10%, patent stent extends through mid segment. ) and Distal (20%) R PDA (% Stenosis): Mid (mild luminal irregularities, 10-20%) R PL1 (% Stenosis): Mid (mild luminal irregularities, 10-20%) R PL2 (% Stenosis): Mid (mild luminal irregularities, 10-20%) -will not have new medications on cardiac medications on discharge Asthma exacerbation vs bronchitis vs exacerbation of GERD -Coughing started when being in hospital following admission day -was given nebulizer treatments -home dose dulera inhaler -was started on IV methylprednisone 40 mg daily since 05/05/19, continue to 05/07/19 and then transitioned to prednisone starting 05/08/19 -start doxycycline 100 mg IV BID empirically on 05/05/19, continue -repeat CXR on 05/05/19 with no evidence of pneumonia -influenza swab negative -will continue steroids, respiratory antibiotics, -hold off scheduled bronchodilaters for now as symptoms improving as of 05/09/19 -continue prn anti-tussives -will hold off further Losartan to avoid any possible allergy reactions to SUMMER inhibitors/ARB - give HCTZ 25 mg on 05/08/[address] losartan -management of GERD -Patient should follow up with primary care doctor 05/12/2019 10:20 AM Provider Seng Treviño MD [facility] Patient may is given prescription of guaifenesin 100 mg every 6 hours as needed for coughing however coughing and heaving and wheezing symptoms have resolved during this hospital stay with nebulizer treatments, steroids, doxycycline, Tums, and continuation of BID ranitidine. At this point the symptoms have generally resolved and no further new prescriptions in this regard. Patient should follow up with primary care doctor if any further symptoms Also patient may resume home dose losartan, there was a trial of losartan being held when coughing symptoms were worsening during hospital stay but no signs of angioedema from ARB. 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 ) OM1 (% Stenosis): Normal (small vessel) RCA (% Stenosis): Proximal (10%, patent stent extends through mid segment. ) and Distal (20%) R PDA (% Stenosis): Mid (mild luminal irregularities, 10-20%) R PL1 (% Stenosis): Mid (mild luminal irregularities, 10-20%) R PL2 (% Stenosis): Mid (mild luminal irregularities, 10-20%) Subjective Patient's speech and breathing is much improved today. no chest pain. no dizziness. renal function stable with the IV fluids after cardiac cath yesterday which was nonobstructive coronary artery disease. glucose controlled today. no lightheadedness. no dizziness Physical Exam Constitutional: WD/WN, vitals as above Eyes: PERRL, conjunctivae normal, anicteric sclerae EOM intact bilaterally ENMT: external ear and nose normal, oropharynx normal Neck: trachea midline, no thyromegaly normal visual inspection Respiratory: normal respiratory effort, lungs clear to auscultation Cardiovascular: RRR, no murmur, no edema Gastrointestinal (Abdomen): normal bowel sounds, soft, nontender, no hepatosplenomegaly Musculoskeletal: Head/Neck/Chest: normocephalic and head atraumatic Neurologic: PERRL, EOMI, accommodation nl, no face palsy, no dysarthria Psychiatric: A+Ox3, euthymic affect Results & Data Vital Signs (Past 12 Hours) Vital Signs Temp Pulse Pulse Resp BP BP Pulse Ox 05/10/19 08:00 63 05/10/19 07:05 36.7 C 69 18 151/71 H 97 05/10/19 03:32 36.6 C 63 18 134/70 93 05/10/19 00:00 83 05/09/19 23:38 36.8 C 74 21 118/64 92
--- NOTE | 2019-05-10 10:42 | Discharge Summary ---
Date of Service May 10, 2019 Admission HPI Per Admitting Provider This is a 78 year female with history of coronary artery disease with stents, with history of stroke, and diabetes mellitus on insulin. Patient sent to ED from primary care doctor with complaints of chest pain. As per patient the chest patient started yesterday. Pain is below left breast. Patient denies heavy lifting or pulled muscle strain. She reports that chest pain was relieved with nitro. Patient also having left lower extremity tingling sensations x 1 week. She also has left lower back pain. She does not appear to be able to correlate whether these symptoms of left leg and back discomforts presented at the same time but reports that the leg discomfort and tingling x 1 week. She does not feel that leg symptoms are similar to diabetic neuropathy. denies history of back problems. she ambulates at home. Patient reports she takes her Novolin insulin twice a day regularly and that her sugars are usually controlled. Her blood glucose 515 on ED presentation. Patient mentating well. she does not have confusion. no vomiting. no abdominal pain. patient does not feel she is more short of breath. breathing on room air. no wheezing. no loss of consciousness. no dizziness. no headache Admission Exam Per Admitting Provider Constitutional: WD/WN, vitals as above Eyes: PERRL, conjunctivae normal, anicteric sclerae EOM intact bilaterally ENMT: external ear and nose normal, oropharynx normal Neck: trachea midline, no thyromegaly normal visual inspection Respiratory: normal respiratory effort, lungs clear to auscultation air inhalation and exhalation is tight. no wheezing. 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 ) OM1 (% Stenosis): Normal (small vessel) RCA (% Stenosis): Proximal (10%, patent stent extends through mid segment. ) and Distal (20%) R PDA (% Stenosis): Mid (mild luminal irregularities, 10-20%) R PL1 (% Stenosis): Mid (mild luminal irregularities, 10-20%) R PL2 (% Stenosis): Mid (mild luminal irregularities, 10-20%) Discharge Exam Constitutional WD/WN, vitals as above Eyes PERRL, conjunctivae normal, anicteric sclerae EOM intact bilaterally ENMT external ear and nose normal, oropharynx normal Neck trachea midline, no thyromegaly normal visual inspection Respiratory normal respiratory effort, lungs clear to auscultation Cardiovascular RRR, no murmur, no edema Gastrointestinal (Abdomen) normal bowel sounds, soft, nontender, no hepatosplenomegaly Musculoskeletal Head/Neck/Chest: normocephalic and head atraumatic Neurologic PERRL, EOMI, accommodation nl, no face palsy, no dysarthria Psychiatric A+Ox3, euthymic affect Discharge Data Allergies Allergy/AdvReac Type Severity Reaction Status Date / Time Iodinated Contrast- Oral and Allergy Severe RASH TO Verified 05/04/19 17:01 IV Dye IVP DYE,NAUSEA, FAINTING, COUGHING, GAGGING, HEADACH Sulfa (Sulfonamide Allergy Severe HIVES, Verified 05/04/19 17:01 Antibiotics) FACIAL AND ARM SWELLING cerivastatin Allergy Intermediate HIVES Verified 05/04/19 17:01 codeine Allergy Intermediate "PRICKLY Verified 05/04/19 17:01 RASH" hydroxyzine Allergy Intermediate N/V Verified 05/04/19 17:01 latex Allergy Intermediate DERMATITIS-PT Verified 05/04/19 17:01 TOLERATED A LATEX CATHETER 03/26/08 Bactrim Allergy Mild RASH Verified 04/29/18 14:40 diphenhydramine Allergy Mild RASH; Verified 05/04/19 17:01 SLEEPINESS WITH "PHARBEDRYL" loratadine Allergy Mild HIVES Verified 05/04/19 17:01 sulfamethoxazole Allergy Mild RASH Verified 05/04/19 17:01 trimethoprim Allergy Mild RASH Verified 02/18/19 13:50 prednisone Allergy Unknown elevates Verified 02/18/19 13:50 blood sugar tetanus toxoid, adsorbed AdvReac Intermediate SWELLING Verified 02/18/19 13:50 AT INJECTION SITE alprazolam AdvReac Unknown "SLEEPY Verified 02/18/19 13:50 STUPER" metformin AdvReac Unknown DIARRHEA Verified 02/18/19 13:50 morphine AdvReac Unknown VOMITING Verified 02/18/19 13:50 simvastatin AdvReac Unknown COUGH, Verified 02/18/19 13:50 "DISCOMFORT" Consultations 05/04/19 17:05 ED Decision to Admit Stat 05/05/19 07:53 Consult Cardiology Routine 05/06/19 09:27 Consult Orthopedic Surgery Routine 05/06/19 17:58 Consult Pain Management Routine 05/09/19 07:19 Consult Cardiac Catheterization Routine Procedures Performed Operation Date: 05/09/19 13:00 Actual Procedures p Cath, Left with Cors and Vent - Monster Barnard DO s Cineradiography w/Routine Exam - Monster Barnard DO Ordered Studies 05/06/19 17:58 MR lumbar spine wo con Urgent 05/07/19 16:09 US arterial duplex LE LT Routine 05/09/19 14:03 CL Cath Imgs for PACS use only Routine Hospital Course (1) Diabetes mellitus, type II: Type 2 diabetes mellitus with correction current use of insulin with hyperglycemia -admission serum glucose of 515 on 05/04/19 -Pt with severe hyperglycemia on admission which is now resolved with Q4h NovoLog + full dose of Lantus. Pt requiring ~ 100 units/insulin per day as of 05/05/19 -will continue insulin as per pharmacy glycemic control consult as steroids (methylprednisone) was started on 05/05/19 -IV solumedrol held of 05/08/19 and cardiology started oral prednisone -Patient may continue home dose insulin and follow up with primary care doctor for repeat glucose check. Patient advised to cut back on simple sweets and foods that are high in carbohydrates to reduce serum glucose. Diabetic Neuropathy as per history, Left Leg pain secondary to diabetic neuropathy -left flank with pain on palpation -left leg pain with tingling x 1 week at home -gabapentin as above -initially though to be due to sciatica but as per orthopedic evaluations and MRI imaging the imaging studies do not support sciatica as cause of leg pain -left leg arterial ultrasound without remarkable results: Mild to moderate atherosclerotic plaque within the left lower extremity without evidence for a hemodynamically significant stenosis -PT/OT evaluations with patient being able to ambulate -pain management note 05/09/19: progress gabapentin 300 mg twice daily and 600 mg nightly; Patient to utilize Nucynta 50 mg every 6 hours PRN for breakthrough pain -on discharge: Patient can take gabapentin 600 mg BID for leg pain secondary to diabetic neuropathy. Patient was given short trial of Nucynta (tapentadol) 50 mg every 6 hour prn during hospital stay by pain management but this an expensive narcotic pain medication and patient does not appear to require narcotic pain medication for leg discomforts chest pain secondary to coughing history of cardiac stents -patient with chest pain (pain is beneath left breast) x 1 day when at home -reports that the chest pain relieved with nitro -troponins negative x 3 and resting echocardiogram without obvious ischemia -seen by cardiology service which recommended nuclear stress testing when breathing is improved -evening on 05/06/19, patient with complaints of persistent chest pain. cardiology service started nitropaste. Patient made positive troponins. Nocturnalist started patient on heparin drip on 05/07/19. Patient seen and examined this evening while on heparin drip. -continue home dose aspirin and plavix -continue home dose imdur, metoprolol tartrate -heparin drip stopped on 05/09/19 and cardiac catheterization to be done by cardiology service on 05/09/19 -Patient had cardiac cath on 05/09/19 and patient has non obstructive coronary artery disease Dominant: Right Left Main (% Stenosis): Distal (10%) LAD (% Stenosis): Proximal (30%) and Mid (20%) D1 (% Stenosis): Normal D2 (% Stenosis): Mid (30%) Circumflex (% Stenosis): Mid (40% due to "jailing" with stent that extends from mid Lcx into large second marginal branch. ) OM1 (% Stenosis): Normal (small vessel) RCA (% Stenosis): Proximal (10%, patent stent extends through mid segment. ) and Distal (20%) R PDA (% Stenosis): Mid (mild luminal irregularities, 10-20%) R PL1 (% Stenosis): Mid (mild luminal irregularities, 10-20%) R PL2 (% Stenosis): Mid (mild luminal irregularities, 10-20%) -will not have new medications on cardiac medications on discharge Asthma exacerbation vs bronchitis vs exacerbation of GERD -Coughing started when being in hospital following admission day -was given nebulizer treatments -home dose dulera inhaler -was started on IV methylprednisone 40 mg daily since 05/05/19, continue to 05/07/19 and then transitioned to prednisone starting 05/08/19 -start doxycycline 100 mg IV BID empirically on 05/05/19, and continued to 05/10/19 -repeat CXR on 05/05/19 with no evidence of pneumonia -influenza swab negative -Patient should follow up with primary care doctor 05/12/2019 10:20 AM Provider Seng Treviño MD [facility] Patient may is given prescription of guaifenesin 100 mg every 6 hours as needed for coughing however coughing and heaving and wheezing symptoms have resolved during this hospital stay with nebulizer treatments, steroids, doxycycline, Tums, and continuation of BID ranitidine. At this point the symptoms have generally resolved and no further new prescriptions in this regard. Patient should follow up with primary care doctor if any further symptoms Also patient may resume home dose losartan, there was a trial of losartan being held when coughing symptoms were worsening during hospital stay but no signs of angioedema from ARB. 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 ) OM1 (% Stenosis): Normal (small vessel) RCA (% Stenosis): Proximal (10%, patent stent extends through mid segment. ) and Distal (20%) R PDA (% Stenosis): Mid (mild luminal irregularities, 10-20%) R PL1 (% Stenosis): Mid (mild luminal irregularities, 10-20%) R PL2 (% Stenosis): Mid (mild luminal irregularities, 10-20%) Total Time Total Time Spent Total Time Spent (In Minutes): 40 minutes Total Time Includes: Examination of the Patient, Discharge Planning, Medication Reconciliation and Communication With Other Providers Discharge Plan Discharge Items Patient Disposition: Home - Self-Care Reason For Visit: HYPERGLYCEMIA,CHEST PAIN,LEFT LEG PAIN, NEUROPATHY Discharge Diagnosis: Type 2 diabetes mellitus with correction current use of insulin with hyperglycemia, Left leg pain secondary to diabetic neuropathy, Gastroesophageal reflux disease (GERD), coughing secondary to Asthma exacerbation vs bronchitis vs exacerbation of GERD, chest pain secondary to coughing, elevated troponins, Patient had cardiac cath on 05/09/19 and patient has non obstructive coronary artery disease Dominant: Right Left Main (% Stenosis): Distal (10%) LAD (% Stenosis): Proximal (30%) and Mid (20%) D1 (% Stenosis): Normal D2 (% Stenosis): Mid (30%) Circumflex (% Stenosis): Mid (40% due to "jailing" with stent that extends from mid Lcx into large second marginal branch. ) OM1 (% Stenosis): Normal (small vessel) RCA (% Stenosis): Proximal (10%, patent stent extends through mid segment. ) and Distal (20%) R PDA (% Stenosis): Mid (mild luminal irregularities, 10-20%) R PL1 (% Stenosis): Mid (mild luminal irregularities, 10-20%) R PL2 (% Stenosis): Mid (mild luminal irregularities, 10-20%) Condition: Good Discharge Goals: Improve disease control Activity: Resume your previous activity Non-emergency contact: Primary Care Provider Call non-emergency contact if: you have any medication questions Follow-up/Referrals: Colleen Jefferson DO [Primary Care Provider] - Diet: Carb Consistent or DM2 and Heart Healthy Addtl Provider Instructions: Patient should follow up with primary care doctor 05/12/2019 10:20 AM Provider Seng Treviño MD [facility] Patient may continue home dose insulin and follow up with primary care doctor for repeat glucose check. Patient advised to cut back on simple sweets and foods that are high in carbohydrates to reduce serum glucose. Patient can take gabapentin 600 mg BID for leg pain secondary to diabetic neuropathy. Patient was given short trial of Nucynta (tapentadol) 50 mg every 6 hour prn during hospital stay by pain management but this an expensive narcotic pain medication and patient does not appear to require narcotic pain medication for leg discomforts Patient may is given prescription of guaifenesin 100 mg every 6 hours as needed for coughing however coughing and heaving and wheezing symptoms have resolved during this hospital stay with nebulizer treatments, steroids, doxycycline, Tums, and continuation of BID ranitidine. At this point the symptoms have generally resolved and no further new prescriptions in this regard. Patient should follow up with primary care doctor if any further symptoms Also patient may resume home dose losartan, there was a trial of losartan being held when coughing symptoms were worsening during hospital stay but no signs of angioedema from ARB. Prescriptions: New guaifenesin 100 mg/5 mL Liquid 100 mg PO Q6H PRN (Reason: cough) 5 Days Qty: 100 RF: 0 gabapentin 600 mg Tablet 600 mg PO BID 30 Days Qty: 60 RF: 0 Continued trazodone 50 mg Tablet 50 mg PO HS RF: 0 ondansetron HCl [Zofran] 4 mg Tablet 4 mg PO QID PRN (Reason: Nausea) RF: 0 aspirin 81 mg Tablet,Delayed Release (Dr/Ec) 1 tab PO QPM RF: 0 lorazepam [Ativan] 0.5 mg Tablet 0.5 mg PO Q6 PRN (Reason: Anxiety) RF: 0 ranitidine HCl [Zantac 75] 75 mg Tablet 75 mg PO BID RF: 0 amlodipine [Norvasc] 10 mg Tablet 10 mg PO QAM RF: 0 docusate sodium [Colace] 100 mg Capsule 100 mg PO DAILY PRN (Reason: Constipation) RF: 0 fluticasone propionate [Flonase Allergy Relief] 50 mcg/actuation [place],Suspension 2 spray INTRANASAL QPM PRN (Reason: allergies) RF: 0 dicyclomine 10 mg Capsule 10 mg PO TID PRN (Reason: ABDOMINAL CRAMPS) RF: 0 ropinirole 1 mg tablet 1 mg PO HS RF: 0 losartan 100 mg tablet 100 mg PO QAM RF: 0 levocetirizine [Xyzal] 5 mg Tablet 2.5 mg PO QPM RF: 0 albuterol sulfate 2.5 mg /3 mL (0.083 %) Solution For Nebulization 2.5 mg INHALATION QID PRN (Reason: Shortness Of Breath Or Wheezing) RF: 0 mirtazapine 45 mg Tablet 45 mg PO HS RF: 0 atorvastatin 40 mg Tablet 40 mg PO QAM Qty: 30 RF: 0 isosorbide mononitrate 30 mg Tablet Extended Release 24 Hr 30 mg PO QAM Qty: 30 RF: 0 clopidogrel 75 mg Tablet 75 mg PO QAM Qty: 30 RF: 2 nitroglycerin [Nitrostat] 0.4 mg Tablet, Sublingual 0.4 mg Sublingual PRN PRN (Reason: chest pain) Qty: 30 RF: 0 metoprolol tartrate [Lopressor] 50 mg Tablet 25 mg PO BID Qty: 0 RF: 0 Novolin 70/30 U-100 Insulin 100 unit/mL (70-30) suspension 55 unit subcut QAM RF: 0 Novolin 70/30 U-100 Insulin 100 unit/mL (70-30) suspension 35 unit subcut QPM RF: 0 albuterol sulfate [Proventil HFA] 90 mcg/actuation Hfa Aerosol Inhaler 2 puff INHALATION Q4 PRN (Reason: Shortness Of Breath Or Wheezing) RF: 0 Discontinued gabapentin [Neurontin] 400 mg Capsule 800 mg PO HS RF: 0 magnesium oxide 400 mg Capsule 400 mg PO QAM RF: 0 Stand-Alone Forms: Call Back Authorization, [facility] Discharge Orders: Discharge Order (Routine); Ordered 05/10/19 Ordered By: Jacky Min Admission Data Admit Date/Time: 05/04/19 17:31 Attending Provider: Jacky Min Admit Provider: Jacky Min Primary Care Provider: Colleen Jefferson Other Providers: Jacky Min ; Bruno Chavez ; Yonas Brasher ; Tnoe Block ; Mara Zhang ; Adam Johansen ; Siobhan Tellez ; Monster Barnard Service: Telemetry
[2019-05-10] MEDS ORDERED: LOSARTAN POTASSIUM 50 MG TAB PO ONE (10:45)
== END 2019-05-10 11:43 | disposition home health service (06) | DRG 638 ==
LOC: ED 15:15 → 2S 17:31
DX: N18.3 Chronic kidney disease, stage 3 (moderate); Z88.2 Allergy status to sulfonamides; K76.0 Fatty (change of) liver, not elsewhere classified; E11.65 Type 2 diabetes mellitus with hyperglycemia; I25.10 Atherosclerotic heart disease of native coronary artery without angina pectoris; I69.851 Hemiplegia and hemiparesis following other cerebrovascular disease affecting right dominant side; Z95.5 Presence of coronary angioplasty implant and graft; K21.9 Gastro-esophageal reflux disease without esophagitis; E83.42 Hypomagnesemia; I25.2 Old myocardial infarction; I44.7 Left bundle-branch block, unspecified; Z79.82 Long term (current) use of aspirin; Z79.4 Long term (current) use of insulin; E11.42 Type 2 diabetes mellitus with diabetic polyneuropathy; M54.9 Dorsalgia, unspecified; J45.901 Unspecified asthma with (acute) exacerbation

== ENCOUNTER 2019-07-11 14:43 | Inpatient (IN) ==
[2019-07-11] MEDS ORDERED: ACETAMINOPHEN 500 MG TAB PO STA (15:25)
--- NOTE | 2019-07-11 15:33 | XRay Report ---
XR chest 1V portable CLINICAL HISTORY: arm numbness COMPARISON STUDY: 05/05/2019 FINDINGS: The cardiac and mediastinal contours remain stable. There is a right-sided A-Port catheter. There is no failure. There is no focal pulmonary consolidation. There are no pleural effusions. Ther e is calcification of the mitral valve annulus.[ IMPRESSION: No active disease in the chest. Electronically signed by: Dipak Velasquez M.D. 07/11/2019 3:31 PM
[2019-07-11 15:39] LABS: Basophils # (auto) 0.08 K/uL (0-0.2); Basophils % (auto) 0.8 %; Eosinophils # (auto) 0.76 K/uL (0-0.5); Eosinophils % (auto) 7.3 %; Hematocrit (blood only) 32.7 % (37-47); Hemoglobin 11.5 g/dL (12.0-16.0); Immature Granulocytes # (auto) 0.03 K/uL (0.00-0.02); Immature Granulocytes % (auto) 0.3 %; Lymphocytes # (auto) 3.58 K/uL (1.2-3.4); Lymphocytes % (auto) 34.4 %; Mean Corpuscular Hgb Conc 35.2 g/dL (32-36); Mean Corpuscular Volume 85.8 fL (80-100); Mean Platelet Volume 9.8 fL (7.4-10.4); Monocytes # (auto) 0.81 K/uL (0.11-0.59); Monocytes % (auto) 7.8 %; Neutrophils # (auto) 5.14 K/uL (1.4-6.5); Neutrophils % (auto) 49.4 %; Platelet Count 204 K/uL (130-400); RDW Coefficient of Variation 13.5 % (11.5-14.5); RDW Standard Deviation 42.4 fL (36.4-46.3); Red Blood Count 3.81 M/uL (4.2-5.4)
--- NOTE | 2019-07-11 15:43 | CT Scan Report ---
CT head/brain wo con CLINICAL HISTORY: Right-sided weakness. Stroke symptoms. COMPARISON STUDY: MRI the brain dated 02/18/2019, head CT dated 02/18/2019 TECHNIQUE: Axial CT of the brain is performed from the vertex to the skull base. IV contrast was not administered for this examination. A dose lowering technique was utilized adhering to the principles of ALARA. CT DOSE: 537.48 mGy.cm FINDINGS: No intra or extra-axial mass lesions are visualized. There is no CT evidence of acute cortical infarc tion. There is no evidence of midline shift. There is no acute hemorrhage. No calvarial fractures ar e visualized. There are patchy white matter hypodensities likely on a small vessel basis. There is a small deep whi te matter lacunar infarct adjacent the anterior horn left lateral ventricle. This was not present wit h certainty on the prior study. There is no evidence of pathologic ventricular dilatation. There is no evidence of acute sinusitis IMPRESSION: No acute intracranial findings Electronically signed by: Dipak Velasquez M.D. 07/11/2019 3:41 PM
[2019-07-11 15:52] LABS: INR 1.1 (0.9-1.1); Partial Thromboplastin Time 25.8 Seconds (21.0-31.0); Prothrombin Time 10.9 Seconds (9.0-12.0)
[2019-07-11 16:06] LABS: Alanine Aminotransferase 23 U/L (12-78); Albumin Globulin Ratio 0.9 (0.9-2); Alkaline Phosphatase 124 U/L (45-117); Aspartate Aminotransferase 26 U/L (15-37); BUN Creatinine Ratio 13.3 (10-20); Bilirubin,Total 0.4 mg/dl (0.2-1); Blood Urea Nitrogen 20 mg/dl (7-18); Calcium 8.6 mg/dl (8.5-10.1); Carbon Dioxide 20 mmol/L (21-32); Chloride 104 mmol/L (98-107); Creatinine Clr Calc Pharmacy 28.2 ml/min; Est GFR (African American) 38.6; Est GFR (Non-African American) 33.3; Globulin 3.5 gm/dl (2.5-4.0); Glucose 425 mg/dl (70-99); Magnesium 1.9 mg/dl (1.8-2.4); Potassium 4.2 mmol/L (3.5-5.1); Sodium 136 mmol/L (136-145); Total Protein 6.5 gm/dl (6.4-8.2); Troponin I < 0.015 ng/ml (0-0.045)
[2019-07-11 16:18] LABS: Beta-Hydroxybutyrate 2.64 mg/dl (0.2-2.81)
[2019-07-11 16:46] LABS: Appearance Urine Clear (Clear); Bacteria Urine Automated Negative (Negative); Bilirubin Urine Negative (Negative); Blood Urine Negative (Negative); Color Urine Yellow; Epithelial Cell Urine Auto 20-30 /lpf (0-5); Glucose Urine UA 3+ (Negative); Ketones Urine Negative (Negative); Leukocyte Esterase Urine Trace (Negative); Nitrite Urine Negative (Negative); Protein Urine Negative (Negative); RBC Urine Automated 0-4 /hpf (0-4); Specific Gravity Urine 1.025 (1.000-1.030); Urobilinogen Urine Negative (Negative); pH Urine 5.5 (4.5-7.5)
[2019-07-11] MEDS ORDERED: NovoLIN-R INSULIN PER UNIT CHARGE IV STA (16:53)
--- NOTE | 2019-07-11 19:01 | History & Physical Report ---
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 Moderate narrowing of the intracranial portion of the left internal carotid artery at the junction of the petrous and cavernous portions. -echo -aspiration precautions -PT/OT consult -continue statin, Plavix, aspirin -neurology consult (2) Chest pain: Pt with hx CAD. S/P NSTEMI 01/2019, s/p GAETANO to circumflex and RCA Reported angina symptoms yesterday and today relieved with SL nitro at home. No acute EKG changes, negative initial troponin -Repeat EKG in am -Will trend troponin -Echo -Continue aspirin, statin, metoprolol -Nitro prn CP and repeat EKG for CP -Cardiology consult (3) CAD (coronary artery disease): Pt with hx CAD. S/P NSTEMI 01/2019, s/p GAETANO to circumflex and RCA Reported angina symptoms yesterday and today relieved with SL nitro at home. No acute EKG changes, negative initial troponin -Repeat EKG in am -Will trend troponin -Echo -Continue aspirin, statin, metoprolol -Continue isosorbide -Nitro prn CP and repeat EKG for CP -Cardiology consult (4) Hyperglycemia: (5) Diabetes mellitus, type II: Random glucose in ER was 425. Anion gap: 12, normal beta hydroxybutyric acid. In ER given Insulin R 10 units IV. BSG down to 309 A1c: 9.0 on 05/04/2019 -Hold home Novolin insulin -Basal bolus insulin per protocol -Glycemic pharmacy consult (6) CKD (chronic kidney disease), stage III: Cr: 1.49, (1.27 on 05/10/19 -Avoid nephrotoxic agents -Monitor renal functions (7) Chronic pancreatitis: Chronic abdominal pain and diarrhea. No increased abdominal pain, no nausea, vomiting -Monitor (8) HTN (hypertension): -Continue amlodipine, losartan, metoprolol (9) COPD (chronic obstructive pulmonary disease): Patient stopped taking Dulera. -Continue albuterol as needed (10) Anxiety: Hx anxiety, depression -Continue home medicines DVT Prophylaxis -Heparin SQ Full Code as per discussion with pt Follows with Dr Jefferson for routine care Pt was seen and care coordinated with Dr Conrad. See addendum History of Present Illness Chief Complaint: Right arm weakness Primary Care Provider: Colleen Jefferson, Pt is 78 y/o F with PMH HTN, HLD, DM II, CKD III, asthma, COPD, chronic pancreatitis s/p stent, anxiety, depression, sleep apnea, CVA in 01/2019 with residual right-sided weakness, CAD s/p stent (most recent 01/2019) presented to ER with complaint of right arm numbness. Pt states yesterday with increased R arm numbness/tingling sensation which has persisted today. Reports yesterday with unsteady gait. This morning when woke up, had trouble sitting up and reports felt generalized weakness and noticed felt "shaky" when she tried to sit up. She states that she was ambulating well past 1-2 months and was not needing her walker until yesterday. C/O frontal WALKER today. She states yesterday thought she had slurred speech, but none today. Denies facial drooping. Reports yesterday ambulated to family picnic and after had non-radiating anterior CP which was relieved with 1SL nitro. Today around 3:00PM reports had anterior chest pressure. Took 1 SL nitro at home with relief. Denies associated SOB, dizziness, diaphoresis. Chronic loose stools. Chronic upper abdominal pain and reports this is at her baseline. Reports scheduled to have pancreatic stent replaced in 07/2019. Reports BSGs running 400-500 at home the past 4 days. She reports not missing her insulin or medications. Denies fever/chills, diaphoresis, N/V, WALKER, dizziness, syncope, vision changes, neck pain, SOB, orthopnea, palpitations, cough, sore throat, choking, otalgia, rhinorrhea, extremity edema, rashes, urinary symptoms. 01/2019 MRA HEAD: 1. Moderate focal narrowing of the proximal cavernous segment left ICA is unchanged. 2. No aneurysm, dissection or proximal branch occlusion. 3. Less than 50% luminal narrowing involves the left P1 segment, also unchanged. 01/2019 MRA NECK: 1. Exam compromised given lack of postcontrast imaging and mild motion artifact. Suspected 50% narrowing of the proximal left internal carotid artery which is similar to MRI of April 15, 2016. 2. Moderate narrowing of the intracranial portion of the left internal carotid artery at the junction of the petrous and cavernous portions. 01/2019 C-SPINE MRI: 1. 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 This is similar to prior MRI of May 06, 2015. Severe bilateral neural foraminal stenosis at this level which has mildly increased. 2. Normal cervical cord signal and caliber. Allergies Allergy/AdvReac Type Severity Reaction Status Date / Time Iodinated Contrast- Oral and Allergy Severe RASH TO Verified 07/11/19 16:12 IV Dye IVP DYE,NAUSEA, FAINTING, COUGHING, GAGGING, HEADACH Sulfa (Sulfonamide Allergy Severe HIVES, Verified 07/11/19 16:12 Antibiotics) FACIAL AND ARM SWELLING cerivastatin Allergy Intermediate HIVES Verified 07/11/19 16:12 codeine Allergy Intermediate "PRICKLY Verified 07/11/19 16:12 RASH" hydroxyzine Allergy Intermediate N/V Verified 07/11/19 16:12 latex Allergy Intermediate DERMATITIS-PT Verified 07/11/19 16:12 TOLERATED A LATEX CATHETER 03/26/08 Bactrim Allergy Mild RASH Verified 04/29/18 14:40 diphenhydramine Allergy Mild RASH; Verified 07/11/19 16:12 SLEEPINESS WITH "PHARBEDRYL" loratadine Allergy Mild HIVES Verified 07/11/19 16:12 sulfamethoxazole Allergy Mild RASH Verified 07/11/19 16:12 trimethoprim Allergy Mild RASH Verified 07/11/19 16:12 prednisone Allergy Unknown elevates Verified 07/11/19 16:12 blood sugar tetanus toxoid, adsorbed AdvReac Intermediate SWELLING Verified 07/11/19 16:12 AT INJECTION SITE alprazolam AdvReac Unknown "SLEEPY Verified 07/11/19 16:12 STUPER" metformin AdvReac Unknown DIARRHEA Verified 07/11/19 16:12 morphine AdvReac Unknown VOMITING Verified 07/11/19 16:12 simvastatin AdvReac Unknown COUGH, Verified 07/11/19 16:12 "DISCOMFORT" Home Medications Home Medications Medication Instructions Recorded Confirmed Type amlodipine [Norvasc] 10 mg PO QAM 08/24/18 07/11/19 History aspirin 1 tab PO QPM 08/24/18 07/11/19 History dicyclomine 10 mg PO TID PRN 08/24/18 07/11/19 History docusate sodium [Colace] 100 mg PO DAILY PRN 08/24/18 07/11/19 History fluticasone propionate [Flonase 2 spray INTRANASAL QPM PRN 08/24/18 07/11/19 History Allergy Relief] lorazepam [Ativan] 0.5 mg PO Q6 PRN 08/24/18 07/11/19 History ondansetron HCl [Zofran] 4 mg PO QID PRN 08/24/18 07/11/19 History trazodone 50 mg PO HS 08/24/18 07/11/19 History albuterol sulfate 2.5 mg INHALATION QID PRN 01/26/19 07/11/19 History levocetirizine [Xyzal] 2.5 mg PO QPM 01/26/19 07/11/19 History losartan 100 mg PO QAM 01/26/19 07/11/19 History mirtazapine 45 mg PO HS 01/26/19 07/11/19 History ropinirole 1 mg PO HS 01/26/19 07/11/19 History atorvastatin 40 mg PO QAM #30 tab 01/28/19 07/11/19 Rx clopidogrel 75 mg PO QAM #30 tab 01/28/19 07/11/19 Rx isosorbide mononitrate 30 mg PO QAM #30 tab 01/28/19 07/11/19 Rx nitroglycerin [Nitrostat] 0.4 mg SUBLINGUAL PRN PRN #30 tab 01/28/19 07/11/19 Rx Novolin 70/30 U-100 Insulin 35 unit SUBCUT QPM 05/04/19 07/11/19 History Novolin 70/30 U-100 Insulin 55 unit SUBCUT QAM 05/04/19 07/11/19 History albuterol sulfate [Proventil HFA] 2 puff INHALATION Q4 PRN 05/04/19 07/11/19 History gabapentin 800 mg PO HS 07/11/19 07/11/19 History magnesium oxide 400 mg PO DAILY 07/11/19 07/11/19 History metoprolol tartrate 25 mg PO BID 07/11/19 07/11/19 History pantoprazole 40 mg PO DAILY 07/11/19 07/11/19 History Past Med/Surg History Medical History Osteoarthritis (Chronic) Seasonal allergies (Chronic) Aortic stenosis (Chronic) mild. Pancreatitis Acute CVA (cerebrovascular accident) Elevated troponin Weakness Pre-syncope Leukocytosis Pneumonia Valvular heart disease Non-STEMI (non-ST elevated myocardial infarction) Left bundle branch block Giant cell arteritis (Resolved) Gastroparesis (Chronic) Dyslipidemia (Chronic) Depression (Chronic) HTN (hypertension) (Chronic) Insomnia (Chronic) RLS (restless legs syndrome) (Chronic) Peripheral neuropathy (Chronic) Pancreatic cyst (Chronic) Anxiety (Chronic) COPD (chronic obstructive pulmonary disease) (Chronic) Diabetes mellitus, type II (Chronic) Sleep apnea (Chronic) Chronic pancreatitis (Chronic) Cerebrovascular disease (Chronic) "history stroke and TIA" L sided weakness. Fatty liver (Chronic) Esophageal dysmotility (Chronic) Gastroparesis (Chronic) Pancreatic divisum (Chronic) CKD (chronic kidney disease), stage III (Chronic) Surgical History History of ERCP (Resolved) x3 with stents. ERCP 04/30/18. MAC 3, grade 2 view. 7.0 ETT placed. No issues. History of colonoscopy (Resolved) History of bilateral tubal ligation (Resolved) S/P cardiac catheterization (Resolved) History of cataract surgery (Chronic) both eyes Family History Daughter No problems noted. 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: No Beliefs That Will Affect Care: None marital status: / Current Living Situation: Alone Current Living Situation Comment: january 21, no longer has drivers license - stroke Feels Safe at Home: Yes Smoking Status: Former smoker Second Hand Exposure: No ; Hx Alcohol Use: No Hx Substance Use: No Review of Systems Review of Systems: All systems reviewed & are unremarkable except as noted in HPI & below Physical Exam Physical Exam: General: no acute distress, WDWN Head: normocephalic, atraumatic Eyes: PERRL, EOM's intact, conjunctiva non-injected, anicteric ENT: normal inspection external ears, nose, mucous membranes moist Neck: supple, trachea midline, non-tender, ROM intact Lungs: clear, no respiratory distress, no wheezing/rhonchi/rales CV: RRR, no murmur,no pretibial edema Abd: normal BS, soft, mild tenderness to epigastric without rebound or guarding Ext: no cyanosis, no calf tenderness Neuro: A&O x 3, mildly flat affect, Facial sensation is intact and symmetric, face is strong and symmetric, hearing grossly intact, no dysarthria, tongue is midline, normal movement, no fasciculations, right arm and right leg with weakness, no pronator drift, reported decreased sensation to light touch to entire right arm and all fingers, finger to nose intact, Skin: warm, dry Results & Data Vital Signs (Past 12 Hours) Vital Signs Temp Pulse Resp BP Pulse Ox 07/11/19 18:30 74 15 135/79 07/11/19 18:01 80 23 135/50 L 07/11/19 17:30 80 21 159/72 H 98 07/11/19 17:00 75 16 136/66 98 07/11/19 16:31 76 12 172/76 H 98 07/11/19 16:00 76 17 139/62 98 07/11/19 15:43 78 24 142/65 H 97 07/11/19 14:47 36.8 C 85 18 131/74 98 Laboratory Results Short CBC 07/11/19 Range/Units 15:28 WBC 10.40 (4.8-10.8) K/uL Hgb 11.5 L (12.0-16.0) g/dL Hct 32.7 L (37-47) % Plt Count 204 (130-400) K/uL BMP 07/11/19 15:28 Sodium 136 Potassium 4.2 Chloride 104 Carbon Dioxide 20 L BUN 20 H Creatinine 1.49 H Glucose 425 H* Calcium 8.6 Cardiac Enzymes 07/11/19 Range/Units 15:28 Troponin I < 0.015 (0-0.045) ng/ml Liver Function 07/11/19 Range/Units 15:28 Total Bilirubin 0.4 (0.2-1) mg/dl AST 26 (15-37) U/L ALT 23 (12-78) U/L Alkaline Phosphatase 124 H (45-117) U/L Albumin 3.0 L (3.4-5.0) gm/dl Urine 07/11/19 Range/Units 16:30 Urine Color Yellow Urine Appearance Clear (Clear) Urine pH 5.5 (4.5-7.5) Ur Specific [place] 1.025 (1.000-1.030) Urine Protein Negative (Negative) Urine Glucose (UA) 3+ H (Negative) Diagnostic Findings CXR: IMPRESSION: No active disease in the chest. CT HEAD: IMPRESSION: No acute intracranial findings ECG Rate (beats per minute): 80 Rhythm: normal sinus Findings: + LBBB Additional Comments: comparison ekgs: pt with intermittent LBBB Supervising Physician Co-Signing Physician Notes Attending Addendum: care coordinated with HOUSTON Dutton please refer to her notes for full details, I agree with her notes patient seen and examined, records reviewed by myself as well on exam, patient seen resting in bed, comfortable reports right forearm and 2-4 fingers feeling "numb" denies chest pain, dyspnea, dizziness, nausea, palpitations no other symptoms VS noted and reviewed oriented x3 , not in distress, speaks in sentences with no effort nor accessory muscle use normal rate, regular rhythm, no murmurs clear breath sounds bilaterally non distended, soft, nontender no bipedal edema, erythema, warmth oriented x 3, CN 2-12 grossly intact; motor 5/5 on all ext, sensation <10% right upper extremity, 100% on all other extremities WBC 10.4 Hg 11.5 Crea 1.49 ASSESSMENT AND PLAN RIGHT UPPER EXTREMITY NUMBNESS R/O ACUTE CVA MRI Brain Carotid US already on ASA and Plavix Neuro consult CHEST PAIN r/o ACS HISTORY OF CAD serial troponins echo continue ASA, Plavix other diagnoses and plan of care as per HOUSTON Dutton notes Saul Conrad MD
[2019-07-11] MEDS ORDERED: DOCUSATE SODIUM 100 MG CAP PO PRN (19:24)
[2019-07-11] MEDS ORDERED: GLUCOSE 10 TABS/TUBE PO PRN (19:24)
[2019-07-11] MEDS ORDERED: GLUCOSE 40% GEL 15 GM TUBE PO PRN (19:24)
[2019-07-11] MEDS ORDERED: NITROGLYCERIN SL 0.4 MG/TAB TAB SL PRN (19:24)
[2019-07-11] MEDS ORDERED: GLUCAGON FOR INJ 1 MG VIAL SQ PRN (19:24)
[2019-07-11] MEDS ORDERED: CARBOHYDRATES FOR HYPOGLYCEMIA PO PRN (19:24)
[2019-07-11] MEDS ORDERED: PHARMACIST DISCHARGE MED REC CONSULT PRN (19:24)
[2019-07-11] MEDS ORDERED: FLUTICASONE PROPIONATE NA SPR 16 GM BTL NAE PRN (19:24)
[2019-07-11] MEDS ORDERED: DEXTROSE 50% 50 ML SYRINGE IV PRN (19:24)
[2019-07-11] MEDS ORDERED: LORazepam 0.5 MG TAB PO PRN (19:24)
[2019-07-11] MEDS ORDERED: PHARMACY GLYCEMIC MGMT CONSULT PRN (19:39)
[2019-07-11] MEDS ORDERED: GADOBUTROL 65ML VIAL IV PRN (20:22)
[2019-07-11] MEDS ORDERED: INSULIN HUMAN NPH SC ONE (20:30)
--- NOTE | 2019-07-11 20:36 | Magnetic Resonance Report ---
MRI OF THE BRAIN COMBO CLINICAL HISTORY: Strokelike symptoms. Headache. Right arm numbness. Dizziness. COMPARISON STUDY: MRI of the brain dated 02/18/2019. CT of the brain dated 07/11/2019. TECHNIQUE: MRI of the brain was performed utilizing various T1 and T2-weighted sequences in the axial , sagittal, and coronal planes. Contrast-enhanced sequences were acquired following the administratio n of 6.5 cc of Gadavist. The examination is modestly degraded by motion artifact. FINDINGS: Brain parenchyma: There is age-related involutional change noting moderate patchy subcortical and per iventricular microangiopathic disease. There is no hemorrhage or mass effect. There is no restricted diffusion to suggest acute ischemia. No enhancing mass lesion is identified on the postcontrast image s. Grady-white matter differentiation is preserved. No extra-axial fluid collection is seen. There is minimal cerebellar tonsillar ectopia. Ventricles, sulci, and cisterns: Prominent secondary to involutional change. Pituitary and sella: Partially empty sella is incidentally noted. Intracranial vasculature: Normal flow voids are maintained at the skull base. Orbits: The bony orbits are grossly intact. Orbital contents are normal in appearance noting bilatera l ocular lens implants. Sinuses and mastoids: There is trace mucosal thickening within the maxillary, ethmoid, and sphenoid s inuses. The mastoid air cells are well pneumatized. Calvarium: Unremarkable. Cervical cord: Partially visualized cervical spinal cord is normal in morphology and signal intensity . IMPRESSION: No acute intracranial abnormality. Electronically signed by: Ramez Blanchard M.D. 07/11/2019 8:35 PM
[2019-07-11] MEDS ORDERED: INSULIN GLARGINE SOLOSTAR 100 UNITS/ML 3 ML PEN SC SCH (21:00)
[2019-07-11] MEDS: TRAZODONE HCL 50 MG TAB PO SCH (21:11)
[2019-07-11] MEDS: ASPIRIN 81 MG ECTAB PO SCH (21:12)
[2019-07-11] MEDS: ROPINIROLE HCL 1 MG TABLET PO SCH (21:12)
[2019-07-11] MEDS: MIRTAZAPINE SOLTAB 15 MG PO SCH (21:12)
[2019-07-11] MEDS: GABAPENTIN 400 MG CAP PO SCH (21:13)
[2019-07-11] MEDS: METOPROLOL TARTRATE 25 MG TAB PO SCH (21:15)
[2019-07-11] MEDS: INSULIN ASPART 100 UNITS/ML 3 ML PEN SC SCH (21:57)
[2019-07-11] MEDS: HEPARIN SOD 5,000 UNIT/0.5 ML VIAL SQ SCH (22:02)
--- NOTE | 2019-07-11 23:26 | Emergency Department Note ---
Entered by Lillian Zarco acting as a scribe for Yonas Liriano MD ED Provider Note CHIEF COMPLAINT: TIA symptoms HISTORY OF PRESENT ILLNESS: The patient is a 78 year old female with past medical history of CVA, CAD, aortic stenosis, osteoarthritis, pancreatitis, elevated troponin I level, chest pain, stroke-like symptoms, hyperglycemia, who presents to the Emergency Room with complaints of constant TIA symptoms that started yesterday. The patient reports she has been having right arm and fingers tingling and numbness. She no noemí she has bene having the tingling since her last stroke in January. The patient additionally states she could not get out of bed this morning because her arm was shaking and weak. She states she had a seizure spill that last for 1-2 minutes and she lied back in bed. The patient notes she has been having a nasty taste in her mouth starting this morning. She reports she has history of heart attack that happened in January which was followed by a heart stroke 3 days after and another one 4 days after. The patient additionally notes she had stroke like symptoms in February in which her arms were numb and weak and the patient felt wobbly when she tried to get up. The patients family member reports he noticed the patients speech was slurred this morning. The patient notes she had to use her walked to navigate at the [facility] yesterday which she usually does not need it. She reports she has been having a lot of diarrhea in the past few weeks but denies black or bloody stools. The patient additionally notes she has a mild headache. She reports she had chest pain about an hour ago which was relieved with nitro. She additionally reports her leg was swollen yesterday. Pt denies LOC, fevers, chills, diaphoresis, visual changes, neck pain, chest pain, breathing difficulties, nausea, vomiting, abdominal pain, back pain, melena, hematochezia, urinary symptoms, numbness or tingling in face, weakness, lymphadenopathy, rash, or other complaints. REVIEW OF SYSTEMS: See HPI for pertinent positives and negatives. A total of ten systems were reviewed and were otherwise negative. PMHx/PSHx: CVA CAD Osteoarthritis Aortic stenosis Pancreatitis Hyperglycemia Chest pain Numbness and tingling of left leg Weakness Stroke-like symptoms SOCIAL HISTORY: Patient lives at home. PHYSICAL EXAM: GENERAL: Awake, alert, well-appearing, in no distress HENT: Normocephalic, atraumatic. Oropharynx unremarkable. EYES: PERRL. Normal conjunctiva. Sclera non-icteric. NECK: Inspection normal. Non-tender. Supple. No nuchal rigidity. FROM. No masses. RESPIRATORY: Clear to auscultation. No wheezes. No rales. Normal respiratory effort. CARDIAC: Normal rate. Normal rhythm. No murmurs. No rubs. Extremities warm and well perfused. Pulses equal. No JVD. GI: Soft, non-distended. No tenderness to palpation. No rebound or guarding. No masses. RECTAL: Deferred. MUSCULOSKELETAL: Atraumatic. Chest examination reveals no tenderness. Port in right upper chest. The back is symmetrical on inspection without obvious abnormality. There is no CVA tenderness to palpation. No joint edema. LOWER EXTREMITIES: Calves are equal size bilaterally and non-tender. No edema. No discoloration. UPPER EXTREMITIES: Subjective tingling and numbness in right upper extremities. NEURO: Normal sensorium. No sensory or motor deficits noted. Slight arm drift. Speech is normal. Cranial nerve intact. SKIN: No rash or jaundice noted. EMERGENCY DEPARTMENT COURSE: 1515: Past medical records reviewed. The patient was evaluated in room C5, and a complete history and physical examination were performed. 1713: Upon reevaluation, the patient is resting comfortably. I discussed laboratory and radiographic results with her. The patient verbalized agreement of the treatment plan. The patient will be evaluated for further management and care. 1720: I discussed the patient's case with [facility] Shaw. [facility] MEDICAL DECISION MAKING: C5 Prior records/ancillary studies reviewed. Nursing notes reviewed and agree them. Additional history obtained from family.. The patient's history was concerning for weakness and strokelike symptoms. Differential diagnosis: Etiologies such as TIA, CVA, metabolic, infection, hypo/hyperglycemia, electrolyte abnormalities, cardiac sources, intracerebral event, toxicologic, neurologic, as well as others were entertained. Physical examination: As above. ER treatment provided: IV Lock IV insulin On reassessment the patient felt better. Diagnostics interpretation by me: ECG: No acute ischemia The labs revealed an unremarkable CBC. Chemistry panel was significant for very elevated blood sugar. No sign of DKA. Urinalysis unremarkable. Troponin negative. Imaging studies: CT scan of the head was negative for acute findings. Chest x-ray was negative for acute disease. Patient had strokelike symptoms that started yesterday. They are mild and consistent with ones that she has had in the past. She also noted having chest pain that was relieved with nitroglycerin. Consultation: A consultation was placed with the hospitalist. The case was discussed and diagnostics were reviewed. The patient was evaluated in the ER for further treatment. IMPRESSION: Stroke like symptoms Hyperglycemia PLAN: Admit The scribe's documentation has been prepared under my direction and personally reviewed by me in its entirety. I confirm that the note above accurately reflects all work, treatment, procedures, and medical decision making performed by me. Impression & Plan Stroke-like symptom, Hyperglycemia Past Med/Surg History Medical History Osteoarthritis (Chronic) Seasonal allergies (Chronic) Aortic stenosis (Chronic) mild. Pancreatitis Acute CVA (cerebrovascular accident) Elevated troponin Weakness Pre-syncope Leukocytosis Pneumonia Valvular heart disease Non-STEMI (non-ST elevated myocardial infarction) Left bundle branch block Giant cell arteritis (Resolved) Gastroparesis (Chronic) Dyslipidemia (Chronic) Depression (Chronic) HTN (hypertension) (Chronic) Insomnia (Chronic) RLS (restless legs syndrome) (Chronic) Peripheral neuropathy (Chronic) Pancreatic cyst (Chronic) Anxiety (Chronic) COPD (chronic obstructive pulmonary disease) (Chronic) Diabetes mellitus, type II (Chronic) Sleep apnea (Chronic) Chronic pancreatitis (Chronic) Cerebrovascular disease (Chronic) "history stroke and TIA" L sided weakness. Fatty liver (Chronic) Esophageal dysmotility (Chronic) Gastroparesis (Chronic) Pancreatic divisum (Chronic) CKD (chronic kidney disease), stage III (Chronic) Surgical History History of ERCP (Resolved) x3 with stents. ERCP 04/30/18. MAC 3, grade 2 view. 7.0 ETT placed. No issues. History of colonoscopy (Resolved) History of bilateral tubal ligation (Resolved) S/P cardiac catheterization (Resolved) History of cataract surgery (Chronic) both eyes Family History Daughter No problems noted. Father Family history of diabetes mellitus Family/Other Family history of diabetes mellitus Mother Family history of diabetes mellitus Grandfather Family history of diabetes mellitus Grandmother Family history of diabetes mellitus Social History Preferred Language: Turkish Communication Ability: Effective Senior Health Consultant Required: No Beliefs That Will Affect Care: None marital status: / Current Living Situation: Alone Current Living Situation Comment: january 21, no longer has drivers license - stroke Other Information That Helps Us Care for You: No Feels Safe at Home: Yes Smoking Status: Former smoker Second Hand Exposure: No ; Hx Alcohol Use: No Hx Substance Use: No Results & Data Vital Signs Vital Signs - 24 hr 07/11/19 14:47 07/11/19 15:43 07/11/19 16:00 Temperature 36.8 C Temperature Source Oral Sepsis Recent Fever Within 48 Hours No Sepsis New/Unexplained Change in Mental Status No Sepsis Action Taken by Nursing No Action Required Pulse Rate 85 78 76 Respiratory Rate 18 24 17 Respiratory Effort / Characteristics Non-Labored Spontaneous Respiratory Depth Normal Blood Pressure 131/74 142/65 H 139/62 Blood Pressure Mean 93 90 87 Blood Pressure Position Sitting Pulse Oximetry 98 97 98 Oxygen Delivery Method Room Air Room Air Room Air 07/11/19 16:31 07/11/19 17:00 07/11/19 17:30 Temperature Temperature Source Sepsis Recent Fever Within 48 Hours Sepsis New/Unexplained Change in Mental Status Sepsis Action Taken by Nursing Pulse Rate 76 75 80 Respiratory Rate 12 16 21 Respiratory Effort / Characteristics Respiratory Depth Blood Pressure 172/76 H 136/66 159/72 H Blood Pressure Mean 108 89 101 Blood Pressure Position Pulse Oximetry 98 98 98 Oxygen Delivery Method Room Air Room Air Room Air 07/11/19 18:01 07/11/19 18:30 Temperature Temperature Source Sepsis Recent Fever Within 48 Hours Sepsis New/Unexplained Change in Mental Status Sepsis Action Taken by Nursing Pulse Rate 80 74 Respiratory Rate 23 15 Respiratory Effort / Characteristics Respiratory Depth Blood Pressure 135/50 L 135/79 Blood Pressure Mean 78 97 Blood Pressure Position Pulse Oximetry Oxygen Delivery Method Home Medications Current Medication List: was personally reviewed by me Laboratory Data Attestation: I reviewed the patient's lab results. Result diagrams: 07/11/19 15:28 07/11/19 15:28 Lab Results 07/11/19 07/11/19 07/11/19 Range/Units 15:28 15:28 15:28 WBC 10.40 (4.8-10.8) K/uL RBC 3.81 L (4.2-5.4) M/uL Hgb 11.5 L (12.0-16.0) g/dL Hct 32.7 L (37-47) % MCV 85.8 (80-100) fL MCH 30.2 (25-34) pg MCHC 35.2 (32-36) g/dL RDW Std Deviation 42.4 (36.4-46.3) fL RDW Coeff of Stormy 13.5 (11.5-14.5) % Plt Count 204 (130-400) K/uL MPV 9.8 (7.4-10.4) fL Immature Gran % (Auto) 0.3 % Neut % (Auto) 49.4 % Lymph % (Auto) 34.4 % Hardee % (Auto) 7.8 % Eos % (Auto) 7.3 % Baso % (Auto) 0.8 % Immature Gran # (Auto) 0.03 H (0.00-0.02) K/uL Neut # (Auto) 5.14 (1.4-6.5) K/uL Lymph # (Auto) 3.58 H (1.2-3.4) K/uL Hardee # (Auto) 0.81 H (0.11-0.59) K/uL Eos # (Auto) 0.76 H (0-0.5) K/uL Baso # (Auto) 0.08 (0-0.2) K/uL PT 10.9 (9.0-12.0) Seconds INR 1.1 (0.9-1.1) APTT 25.8 (21.0-31.0) Seconds PTT Ratio 1.0 Sodium 136 (136-145) mmol/L Potassium 4.2 (3.5-5.1) mmol/L Chloride 104 (98-107) mmol/L Carbon Dioxide 20 L (21-32) mmol/L Anion Gap 12.0 H (3-11) BUN 20 H (7-18) mg/dl Creatinine 1.49 H (0.6-1.2) mg/dl Est Cr Clr Drug Dosing 28.2 ml/min Est GFR ( Amer) 38.6 Est GFR (Non-Af Amer) 33.3 BUN/Creatinine Ratio 13.3 (10-20) Glucose 425 H* (70-99) mg/dl POC Glucose (70-99) Calcium 8.6 (8.5-10.1) mg/dl Magnesium 1.9 (1.8-2.4) mg/dl Total Bilirubin 0.4 (0.2-1) mg/dl AST 26 (15-37) U/L ALT 23 (12-78) U/L Alkaline Phosphatase 124 H (45-117) U/L Troponin I < 0.015 (0-0.045) ng/ml Total Protein 6.5 (6.4-8.2) gm/dl Albumin 3.0 L (3.4-5.0) gm/dl Globulin 3.5 (2.5-4.0) gm/dl Albumin/Globulin Ratio 0.9 (0.9-2) Beta-Hydroxybutyric Acd 2.64 (0.2-2.81) mg/dl Urine Color Urine Appearance (Clear) Urine pH (4.5-7.5) Ur Specific [place] (1.000-1.030) Urine Protein (Negative) Urine Glucose (UA) (Negative) Urine Ketones (Negative) Urine Blood (Negative) Urine Nitrite (Negative) Urine Bilirubin (Negative) Urine Urobilinogen (Negative) Ur Leukocyte Esterase (Negative) Urine WBC (Auto) (0-5) /hpf Urine RBC (Auto) (0-4) /hpf U Hyaline Cast (Auto) (0-5) /lpf U Epithel Cells (Auto) (0-5) /lpf Urine Bacteria (Auto) (Negative) Blood Type Antibody Screen 07/11/19 07/11/19 07/11/19 Range/Units 15:28 15:34 16:30 WBC (4.8-10.8) K/uL RBC (4.2-5.4) M/uL Hgb (12.0-16.0) g/dL Hct (37-47) % MCV (80-100) fL MCH (25-34) pg MCHC (32-36) g/dL RDW Std Deviation (36.4-46.3) fL RDW Coeff of Stormy (11.5-14.5) % Plt Count (130-400) K/uL MPV (7.4-10.4) fL Immature Gran % (Auto) % Neut % (Auto) % Lymph % (Auto) % Hardee % (Auto) % Eos % (Auto) % Baso % (Auto) % Immature Gran # (Auto) (0.00-0.02) K/uL Neut # (Auto) (1.4-6.5) K/uL Lymph # (Auto) (1.2-3.4) K/uL Hardee # (Auto) (0.11-0.59) K/uL Eos # (Auto) (0-0.5) K/uL Baso # (Auto) (0-0.2) K/uL PT (9.0-12.0) Seconds INR (0.9-1.1) APTT (21.0-31.0) Seconds PTT Ratio Sodium (136-145) mmol/L Potassium (3.5-5.1) mmol/L Chloride (98-107) mmol/L Carbon Dioxide (21-32) mmol/L Anion Gap (3-11) BUN (7-18) mg/dl Creatinine (0.6-1.2) mg/dl Est Cr Clr Drug Dosing ml/min Est GFR ( Amer) Est GFR (Non-Af Amer) BUN/Creatinine Ratio (10-20) Glucose (70-99) mg/dl POC Glucose 417 H* (70-99) Calcium (8.5-10.1) mg/dl Magnesium (1.8-2.4) mg/dl Total Bilirubin (0.2-1) mg/dl AST (15-37) U/L ALT (12-78) U/L Alkaline Phosphatase (45-117) U/L Troponin I (0-0.045) ng/ml Total Protein (6.4-8.2) gm/dl Albumin (3.4-5.0) gm/dl Globulin (2.5-4.0) gm/dl Albumin/Globulin Ratio (0.9-2) Beta-Hydroxybutyric Acd (0.2-2.81) mg/dl Urine Color Yellow Urine Appearance Clear (Clear) Urine pH 5.5 (4.5-7.5) Ur Specific [place] 1.025 (1.000-1.030) Urine Protein Negative (Negative) Urine Glucose (UA) 3+ H (Negative) Urine Ketones Negative (Negative) Urine Blood Negative (Negative) Urine Nitrite Negative (Negative) Urine Bilirubin Negative (Negative) Urine Urobilinogen Negative (Negative) Ur Leukocyte Esterase Trace H (Negative) Urine WBC (Auto) 5-10 H (0-5) /hpf Urine RBC (Auto) 0-4 (0-4) /hpf U Hyaline Cast (Auto) 1-5 (0-5) /lpf U Epithel Cells (Auto) 20-30 H (0-5) /lpf Urine Bacteria (Auto) Negative (Negative) Blood Type O Positive Antibody Screen NEGATIVE 07/11/19 Range/Units 17:59 WBC (4.8-10.8) K/uL RBC (4.2-5.4) M/uL Hgb (12.0-16.0) g/dL Hct (37-47) % MCV (80-100) fL MCH (25-34) pg MCHC (32-36) g/dL RDW Std Deviation (36.4-46.3) fL RDW Coeff of Stormy (11.5-14.5) % Plt Count (130-400) K/uL MPV (7.4-10.4) fL Immature Gran % (Auto) % Neut % (Auto) % Lymph % (Auto) % Hardee % (Auto) % Eos % (Auto) % Baso % (Auto) % Immature Gran # (Auto) (0.00-0.02) K/uL Neut # (Auto) (1.4-6.5) K/uL Lymph # (Auto) (1.2-3.4) K/uL Hardee # (Auto) (0.11-0.59) K/uL Eos # (Auto) (0-0.5) K/uL Baso # (Auto) (0-0.2) K/uL PT (9.0-12.0) Seconds INR (0.9-1.1) APTT (21.0-31.0) Seconds PTT Ratio Sodium (136-145) mmol/L Potassium (3.5-5.1) mmol/L Chloride (98-107) mmol/L Carbon Dioxide (21-32) mmol/L Anion Gap (3-11) BUN (7-18) mg/dl Creatinine (0.6-1.2) mg/dl Est Cr Clr Drug Dosing ml/min Est GFR ( Amer) Est GFR (Non-Af Amer) BUN/Creatinine Ratio (10-20) Glucose (70-99) mg/dl POC Glucose 309 H* (70-99) Calcium (8.5-10.1) mg/dl Magnesium (1.8-2.4) mg/dl Total Bilirubin (0.2-1) mg/dl AST (15-37) U/L ALT (12-78) U/L Alkaline Phosphatase (45-117) U/L Troponin I (0-0.045) ng/ml Total Protein (6.4-8.2) gm/dl Albumin (3.4-5.0) gm/dl Globulin (2.5-4.0) gm/dl Albumin/Globulin Ratio (0.9-2) Beta-Hydroxybutyric Acd (0.2-2.81) mg/dl Urine Color Urine Appearance (Clear) Urine pH (4.5-7.5) Ur Specific [place] (1.000-1.030) Urine Protein (Negative) Urine Glucose (UA) (Negative) Urine Ketones (Negative) Urine Blood (Negative) Urine Nitrite (Negative) Urine Bilirubin (Negative) Urine Urobilinogen (Negative) Ur Leukocyte Esterase (Negative) Urine WBC (Auto) (0-5) /hpf Urine RBC (Auto) (0-4) /hpf U Hyaline Cast (Auto) (0-5) /lpf U Epithel Cells (Auto) (0-5) /lpf Urine Bacteria (Auto) (Negative) Blood Type Antibody Screen Administered Medications Aspirin (Ecotrin Ectab) 81 mg PO QPM JOHN Stop: 08/10/19 20:59 Last Admin: 07/11/19 21:12 Dose: 81 mg Documented by: [id number] Gabapentin (Neurontin) 800 mg PO HS JOHN Stop: 08/10/19 20:59 Last Admin: 07/11/19 21:13 Dose: 800 mg Documented by: [id number] Gadobutrol (Gadavist 65ml) 6.5 ml IV ONCE PRN PRN Reason: Interaction Checking Stop: 07/15/19 20:21 Last Admin: 07/11/19 20:23 Dose: 6.5 ml Documented by: [id number] Heparin Sodium (Porcine) (Heparin Sodium (Porcine)) 5,000 units SQ Q8 JOHN Stop: 08/10/19 21:59 Last Admin: 07/11/19 22:02 Dose: 5,000 units Documented by: [id number] Cosigned by: [id number] Insulin Aspart (Novolog Flexpen) 0 units SC ACHS JOHN Stop: 08/10/19 20:59 Last Admin: 07/11/19 21:57 Dose: 11 units Documented by: [id number] Cosigned by: [id number] Metoprolol Tartrate (Lopressor) 25 mg PO BID JOHN Stop: 08/10/19 20:59 Last Admin: 07/11/19 21:15 Dose: 25 mg Documented by: [id number] Mirtazapine (Remeron Solutab) 45 mg PO HS JOHN Stop: 08/10/19 20:59 Last Admin: 07/11/19 21:12 Dose: 45 mg Documented by: [id number] Ropinirole HCl (Requip) 1 mg PO HS JOHN Stop: 08/10/19 20:59 Last Admin: 07/11/19 21:12 Dose: 1 mg Documented by: [id number] Trazodone HCl (Desyrel) 50 mg PO HS [facility] Stop: 08/10/19 20:59 Last Admin: 07/11/19 21:11 Dose: 50 mg Documented by: [id number] Discontinued Medications Acetaminophen (Tylenol) 1,000 mg PO NOW STA Stop: 07/11/19 15:26 Last Admin: 07/11/19 15:45 Dose: 1,000 mg Documented by: [id number] Insulin Human NPH (Novolin N Nph) 20 units SC NOW ONE Stop: 07/11/19 20:31 Last Admin: 07/11/19 21:10 Dose: 20 units Documented by: [id number] Cosigned by: [id number] Insulin Human Regular (Novolin R U-100 Per Unit) 10 units IV NOW STA Stop: 07/11/19 16:54 Last Admin: 07/11/19 17:02 Dose: 10 units Documented by: [id number] Cosigned by: [id number] Imaging Data Radiologist's Impression: Radiology results as stated below per my review and the radiologist's interpretation: CT head/brain wo con CLINICAL HISTORY: Right-sided weakness. Stroke symptoms. COMPARISON STUDY: MRI the brain dated 02/18/2019, head CT dated 02/18/2019 TECHNIQUE: Axial CT of the brain is performed from the vertex to the skull base. IV contrast was not administered for this examination. A dose lowering technique was utilized adhering to the principles of ALARA. CT DOSE: 537.48 mGy.cm FINDINGS: No intra or extra-axial mass lesions are visualized. There is no CT evidence of acute cortical infarction. There is no evidence of midline shift. There is no acute hemorrhage. No calvarial fractures are visualized. There are patchy white matter hypodensities likely on a small vessel basis. There is a small deep white matter lacunar infarct adjacent the anterior horn left lateral ventricle. This was not present with certainty on the prior study. There is no evidence of pathologic ventricular dilatation. There is no evidence of acute sinusitis IMPRESSION: No acute intracranial findings Electronically signed by: Dipak Velasquez M.D. 07/11/2019 3:41 PM XR chest 1V portable CLINICAL HISTORY: arm numbness COMPARISON STUDY: 05/05/2019 FINDINGS: The cardiac and mediastinal contours remain stable. There is a right- sided A-Port catheter. There is no failure. There is no focal pulmonary consolidation. There are no pleural effusions. There is calcification of the mitral valve annulus.[ IMPRESSION: No active disease in the chest. Electronically signed by: Dipak Velasquez M.D. 07/11/2019 3:31 PM ECG Data Attestation: I personally reviewed and interpreted this ECG as follows: Indication: other (TIA symptoms ) Rate (beats per minute): 80 Rhythm: normal sinus Findings: no PAC, no PVC and no ST elevation Blood Pressure Blood Pressure Findings: Normal blood pressure Blood Pressure Disposition: did not require urgent referral Discharge Plan Visit Data *Final* Discharge Date/Time: 07/11/19 19:00 Chief Complaint: TIA Symptoms Stated Complaint: STROKE SYMPTOMS ED Provider: Yonas Liriano Discharge Problem: Stroke-like symptom, Hyperglycemia Patient Disposition: Admitted As Inpatient Discharge Instructions Interventions: ED Discharge Assessment Last Done: 07/11/19 19:00 The scribe's documentation has been prepared under my direction and personally reviewed by me in its entirety. I confirm that the note above accurately reflects all work, treatment, procedures, and medical decision making performed by me.
[2019-07-12] MEDS: HEPARIN 100 UNIT/ML 5ML FLUSH FLUSH PRN ×3 (02:58→23:29)
[2019-07-12 03:26] LABS: Hematocrit (blood only) 32.1 % (37-47); Mean Corpuscular Hgb Conc 34.3 g/dL (32-36); Mean Corpuscular Volume 85.4 fL (80-100); Mean Platelet Volume 9.7 fL (7.4-10.4); Platelet Count 201 K/uL (130-400); RDW Coefficient of Variation 13.3 % (11.5-14.5); RDW Standard Deviation 41.4 fL (36.4-46.3); Red Blood Count 3.76 M/uL (4.2-5.4); White Blood Count 8.52 K/uL (4.8-10.8)
[2019-07-12 03:49] LABS: BUN Creatinine Ratio 16.3 (10-20); Blood Urea Nitrogen 20 mg/dl (7-18); Calcium 8.2 mg/dl (8.5-10.1); Carbon Dioxide 24 mmol/L (21-32); Chloride 110 mmol/L (98-107); Creatinine Clr Calc Pharmacy 31.8 ml/min; Est GFR (African American) 48.2; Est GFR (Non-African American) 41.6; Glucose 179 mg/dl (70-99); Potassium 3.7 mmol/L (3.5-5.1); Sodium 140 mmol/L (136-145)
[2019-07-12 03:53] LABS: Troponin I < 0.015 ng/ml (0-0.045)
[2019-07-12] MEDS: HEPARIN SOD 5,000 UNIT/0.5 ML VIAL SQ SCH ×3 (05:24→21:12)
[2019-07-12] MEDS ORDERED: INSULIN HUMAN NPH SC SCH (07:30)
[2019-07-12] MEDS: MAGNESIUM OXIDE 400 MG TAB PO SCH (08:17)
[2019-07-12] MEDS: ISOSORBIDE MONO EXTENDED REL 30 MG TABCR PO SCH (08:18)
[2019-07-12] MEDS: AMLODIPINE BESYLATE 5 MG TAB PO SCH (08:18)
[2019-07-12] MEDS: METOPROLOL TARTRATE 25 MG TAB PO SCH ×2 (08:18→21:11)
[2019-07-12] MEDS: LOSARTAN POTASSIUM 50 MG TAB PO SCH (08:18)
[2019-07-12] MEDS: ATORVASTATIN 40 MG TAB PO SCH (08:18)
[2019-07-12] MEDS: PANTOprazole 40 MG TAB PO SCH (08:18)
[2019-07-12] MEDS: CLOPIDOGREL BISULFATE 75 MG TAB PO SCH (08:18)
[2019-07-12] MEDS: INSULIN ASPART 100 UNITS/ML 3 ML PEN SC SCH ×4 (08:20→21:08)
[2019-07-12] MEDS: XYZAL~ORDER AWAITING ACTION SCH ×3 (08:21→23:06)
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
--- NOTE | 2019-07-12 14:51 | Pharmacy Report ---
Glycemic Control Consultation - Date of Service July 12, 2019 - Scope Scope: Glycemic Pharmacist consulted by Dr Bundy on 07/12/19 for glycemic control and to write orders per [facility] inpatient glycemic control protocol - Objective Weight: 69.1 kg Accuchecks BSG (last 24hrs): 07/11/19 07/11/19 07/11/19 15:28 15:34 17:59 Glucose 425 H* POC Glucose 417 H* 309 H* 07/11/19 07/11/19 07/12/19 19:20 20:40 02:57 Glucose 179 H POC Glucose 288 H 278 H 07/12/19 07/12/19 07:06 11:26 Glucose POC Glucose 222 H 273 H Laboratory Data (last 24hrs): 07/11/19 07/12/19 15:28 02:57 Potassium 4.2 3.7 Carbon Dioxide 20 L 24 Anion Gap 12.0 H 6.0 Creatinine 1.49 H 1.24 H Est Cr Clr Drug Dosing 28.2 31.8 Beta-Hydroxybutyric Acd 2.64 - Recent Pertinent Medications Outpatient Anti-diabetic Regimen: * 70/30 55u AM and 35u PM * A1c = 9.0 % 05/04/19 - Assessment & Plan Assessment & Plan: ASSESSMENT: * Pt is a 78yo type 2 diabetic female known to the pharmacy glycemic service from previous admissions. She is being worked up for stroke like symptoms. PMHx consistent with: COPD, h/o stroke, CAD, GAETANO, CKD, among others. She is ordered a diet and tolerating PO by the looks of her carb intake. We will utilize a basal/bolus regimen that has yielded adequate BSGs historically. She is labile. PLAN FOR INPATIENT GLYCEMIC CONTROL: * Basal insulin * NPH 35 this AM then a scale at mealtimes: please see MAR for further details * Bolus insulin * NovoLog per scale ACHS or Q6hrs while NPO * Goal Range: Low 110 mg/dL - High 140 mg/dL * Correction Factor: 20 mg/dL/unit * Nutritional / Prandial insulin per carb ratio of 1 unit per 6 grams CHO consumed * Please note that the plan above was derived based on current level of insulin resistance and hospital stress. These recommendations are appropriate for inpatient admission only. Plan of care upon discharge will need to be reassessed to avoid potential outpatient hypo/hyperglycemia. Thank you.
--- NOTE | 2019-07-12 16:33 | Hospitalist Progress Note ---
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 Moderate narrowing of the intracranial portion of the left internal carotid artery at the junction of the petrous and cavernous portions. -echo: Moderate concentric LVH, left ventricular wall motion is normal no regional wall motion abnormalities noted, grade 1 diastolic dysfunction Still having right upper extremity numbness today, less than yesterday Neurologist consulted for further recommendations - continue statin, Plavix, aspirin -OT recommending inpatient rehab (2) Chest pain: No acute EKG changes, negative opponents x3 Echo noted above [employer] Dr. Pemberton consulted, further interventions at this time Continue usual cardiac medications (3) CAD (coronary artery disease): Pt with hx CAD. S/P NSTEMI 01/2019, s/p GAETANO to circumflex and RCA Management noted above (4) Hyperglycemia: (5) Diabetes mellitus, type II: Random glucose in ER was 425. Anion gap: 12, normal beta hydroxybutyric acid. In ER given Insulin R 10 units IV. BSG down to 309 A1c: 9.0 on 05/04/2019 -Hold home Novolin insulin -Basal bolus insulin per protocol -Glycemic pharmacy consulted Please follow pharmacy recommendations regarding insulin regimen on discharge (6) CKD (chronic kidney disease), stage III: Cr: 1.49, (1.27 on 05/10/19 Creatinine stable (7) Chronic pancreatitis: Chronic abdominal pain and diarrhea. No increased abdominal pain, no nausea, vomiting -Monitor (8) HTN (hypertension): -Continue amlodipine, losartan, metoprolol (9) COPD (chronic obstructive pulmonary disease): Patient stopped taking Dulera. -Continue albuterol as needed (10) Anxiety: Hx anxiety, depression -Continue home medicines DVT Prophylaxis -Heparin SQ Full Code as per discussion with pt Follows with Dr Jefferson for routine care OT recommending Inpatient Rehab Subjective Follow-up for right upper extremity numbness Seen resting bedside chair, comfortable, not in distress States right forearm and fingers 2-4 still feeling numb Denies weakness Denies any other focal neurologic symptoms Denies chest pain this admission No shortness of breath, palpitations, dizziness No other symptoms Review of Systems Review of Systems: All systems reviewed & are unremarkable except as noted in HPI & below Physical Exam Physical Exam: General- oriented x 3, not in distress, speaks in sentences with no effort or accessory muscle use Eyes- anicteric Neck- no JVD Lungs- clear breath sounds bilaterally, no rales/wheezes Heart- normal rate, regular rhythm; no murmurs Abdomen- normal bowel sounds, nondistended, soft, nontender Extremities- no pretibial edema, no calf tenderness Neuro- alert, oriented x 3; right forearm, sensation 70%, otherwise 100% in all extremities, no gross focal neurologic deficits Skin- warm & dry Results & Data Vital Signs (Past 12 Hours) Vital Signs Temp Pulse Pulse Resp BP Pulse Ox 07/12/19 15:19 36.9 C 80 20 128/75 93 07/12/19 11:19 36.8 C 70 18 116/70 96 07/12/19 07:13 72 07/12/19 07:00 37.0 C 77 20 133/80 94
[2019-07-12] MEDS: INSULIN HUMAN NPH SC SCH (17:25)
[2019-07-12] MEDS: TRAZODONE HCL 50 MG TAB PO SCH (21:11)
[2019-07-12] MEDS: ASPIRIN 81 MG ECTAB PO SCH (21:11)
[2019-07-12] MEDS: GABAPENTIN 400 MG CAP PO SCH (21:11)
[2019-07-12] MEDS: MIRTAZAPINE SOLTAB 15 MG PO SCH (21:12)
[2019-07-12] MEDS: ROPINIROLE HCL 1 MG TABLET PO SCH (21:12)
--- NOTE | 2019-07-12 22:48 | Magnetic Resonance Report ---
MR ANGIOGRAPHY OF THE [place] NO CONTRAST CLINICAL HISTORY: recurrent left hemisphere ischemia COMPARISON STUDY: February 18, 2019 A 3-D [id number] MR angiographic sequence of the [place] was performed. Both the source and projection images were reviewed. There is no major intracranial branch occlusion. There is a 50% stenosis of the proximal left [place] internal carotid artery. There are no lesions suspicious for aneurysm. The right vertebral artery appears dominant. There is a 25% stenosis of the left T1 segment. 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 IMPRESSION: 1. No significant change from the preceding January 2019 study 2. 50% diameter stenosis of the proximal left cavernous internal carotid artery 3. No evidence of aneurysm or major branch occlusion 4. Hypoplastic left A1 segment Electronically signed by: Dipak Velasquez M.D. 07/12/2019 10:45 PM
[2019-07-12] MEDS ORDERED: GADOBUTROL 65ML VIAL IV PRN (22:53)
--- NOTE | 2019-07-12 23:04 | Magnetic Resonance Report ---
NECK MRA HISTORY: Recurrent left hemispheric ischemia. History of carotid stenosis. TECHNIQUE: [id number] and gadolinium-enhanced MRA of the neck was performed both before and after the intravenous administration of contrast. All measurements were calculated based on NASCET criteri a. The patient was injected with 6.5 cc of intravenous Gadavist. COMPARISON STUDY: 01/31/2019 FINDINGS: The aortic arch and proximal great vessels are widely patent. There is a 50% diameter narr owing of the left internal carotid artery origin. There is a 40% diameter narrowing of the proximal c avernous left internal carotid artery. There is no evidence for right internal carotid artery stenosi s. There is no evidence of dissection. There is narrowing of the distal left vertebral artery. IMPRESSION: 1. Stable 50% diameter stenosis of the left internal carotid artery origin 2. Stable 40% diameter narrowing of the proximal cavernous left internal carotid artery 3. Persistent narrowing of the distal left vertebral artery. Electronically signed by: Dipak Velasquez M.D. 07/12/2019 11:03 PM
[2019-07-12] MEDS ORDERED: methylPREDNISolone 125 MG/2 ML VIAL IV STA (23:09)
[2019-07-12] MEDS ORDERED: ALBUT/IPRATROP 3MG/0.5MG NEB 3 ML VIAL NEB PRN (23:11)
[2019-07-12] MEDS ORDERED: methylPREDNISolone 60 MG in SYRINGE 0 ML IV ONE (23:15)
[2019-07-12] MEDS: ALBUTEROL HFA 8 GM INHALER INH PRN (23:18)
[2019-07-12] MEDS ORDERED: ONDANSETRON INJ 2 MG/ML 2 ML VIAL IV PRN (23:19)
[2019-07-12] MEDS ORDERED: ONDANSETRON INJ 2 MG/ML 2 ML VIAL ONE (23:27)
[2019-07-12] MEDS: ACETAMINOPHEN 325 MG TAB PO PRN (23:35)
[2019-07-13] MEDS: HEPARIN SOD 5,000 UNIT/0.5 ML VIAL SQ SCH ×3 (05:35→20:32)
[2019-07-13] MEDS: INSULIN ASPART 100 UNITS/ML 3 ML PEN SC SCH ×4 (08:06→20:30)
[2019-07-13] MEDS: INSULIN HUMAN NPH SC SCH ×2 (08:09→17:33)
--- NOTE | 2019-07-13 08:54 | Pharmacy Report ---
Pharmacy Glycemic Short Note 2 - Date of Service July 13, 2019 - Glycemic Short BSG Results (Last 24 hours): 07/12/19 07/12/19 07/12/19 11:26 16:36 20:12 POC Glucose 273 H 219 H 270 H 07/13/19 07/13/19 07/13/19 01:55 02:35 07:34 POC Glucose 176 H 201 H 361 H* 07/13/19 07:35 POC Glucose 370 H* ASSESSMENT: * This AM's hyperglycemia attributable to solumedrol 60mg IV x1 given last night. Will continue with standing insulin orders as I anticipate the solumedrol will start to dissipate. PLAN FOR INPATIENT GLYCEMIC CONTROL: * Basal insulin * NPH scale SQ BIDM * 30 units for BSGs <120 * 35 units for BSGs 120-180 * 40 units for BSGs >180 * Bolus insulin * NovoLog per scale ACHS or Q6hrs while NPO * Goal Range: Low 110 mg/dL - High 140 mg/dL * Correction Factor: 20 mg/dL/unit * Nutritional / Prandial insulin per carb ratio of 1 unit per 6 grams CHO consumed
[2019-07-13] MEDS: MAGNESIUM OXIDE 400 MG TAB PO SCH (09:22)
[2019-07-13] MEDS: ISOSORBIDE MONO EXTENDED REL 30 MG TABCR PO SCH (09:23)
[2019-07-13] MEDS: AMLODIPINE BESYLATE 5 MG TAB PO SCH (09:23)
[2019-07-13] MEDS: METOPROLOL TARTRATE 25 MG TAB PO SCH ×2 (09:23→20:34)
[2019-07-13] MEDS: LOSARTAN POTASSIUM 50 MG TAB PO SCH (09:23)
[2019-07-13] MEDS: CLOPIDOGREL BISULFATE 75 MG TAB PO SCH (09:23)
[2019-07-13] MEDS: ATORVASTATIN 40 MG TAB PO SCH (09:23)
[2019-07-13] MEDS: PANTOprazole 40 MG TAB PO SCH (09:23)
[2019-07-13] MEDS: XYZAL~ORDER AWAITING ACTION SCH ×3 (09:24→23:54)
[2019-07-13] MEDS ORDERED: GLUCAGON FOR INJ 1 MG VIAL IM PRN (12:00)
[2019-07-13] MEDS ORDERED: GLUCOSE 10 TABS/TUBE PO PRN (12:00)
[2019-07-13] MEDS ORDERED: CARBOHYDRATES FOR HYPOGLYCEMIA PO PRN (12:00)
[2019-07-13] MEDS ORDERED: INSULIN HUMAN REGULAR IV BOLUS 2 UNITS in SYRINGE 0 ML IV ONE (12:00)
[2019-07-13] MEDS ORDERED: DEXTROSE 50% 50 ML SYRINGE IV PRN (12:00)
[2019-07-13] MEDS ORDERED: GLUCOSE 40% GEL 15 GM TUBE PO PRN (12:00)
[2019-07-13] MEDS: ALBUTEROL HFA 8 GM INHALER INH PRN (12:11)
[2019-07-13] MEDS: INSULIN REGULAR 250 UNITS in SODIUM CHLORIDE 0.9% 247.5 ML IV SCH ×5 (12:16→17:27)
[2019-07-13] MEDS: ACETAMINOPHEN 325 MG TAB PO PRN (12:34)
--- NOTE | 2019-07-13 12:43 | Cardiology Progress Note ---
Date of Service July 13, 2019 Assessment & Plan (1) CAD (coronary artery disease): stable CAD. Continue current cardiac medications. Telemetry reveals SR in 70s with LBBB. Agree with insulin infusion. SQ heparin for DVT prophylaxis. Subjective Chief complaint: Follow-up, chest discomfort Subjective: Patient without cardiac complaint. She states that she does not feel well overall, she apparently had trouble with her lunch choking on some rice, and the nurses have her propped up in bed to administer her afternoon pills. Her blood sugar has trended up to over 400 and she is now on an insulin infusion intravenously. Review of Systems Review of Systems: All systems reviewed & are unremarkable except as noted in HPI & below Physical Exam Physical Exam: Temp Pulse Resp BP Pulse Ox 36.5 C 57 L 20 145/71 H 96 07/13/19 11:15 07/13/19 11:15 07/13/19 11:15 07/13/19 11:15 07/13/19 11:15 Constitutional: WD/WN, vitals as above Respiratory: normal respiratory effort, lungs clear to auscultation Cardiovascular: RRR, no murmur, no edema Gastrointestinal (Abdomen): normal bowel sounds, soft, nontender, no hepatosplenomegaly Neurologic: moves all extremities; no focal motor deficits Results & Data Vital Signs (Past 12 Hours) Vital Signs Temp Pulse Pulse Resp BP Pulse Ox 07/13/19 11:15 36.5 C 57 L 20 145/71 H 96 07/13/19 07:24 36.7 C 78 20 139/70 95 07/13/19 07:00 71 07/13/19 04:05 36.6 C 87 24 156/80 H 96 Laboratory Results Intake and Output 07/12/19 07/13/19 07/13/19 22:59 06:59 14:59 Intake Total 480 / 530 50 / 530 Output Total 401 / 401 Balance 79 / 129 50 / 129 Intake: Oral 480 / 530 50 / 530 Output: Urine 400 / 400 # Bowel Movements Other: # Unmeasured Voids 1 Weight 69.1 kg 70.2 kg
--- NOTE | 2019-07-13 13:03 | Hospitalist Progress Note ---
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 presented with c/o R arm paresthesias and generalized weakness started the day before admission CT head: no acute changes MRI brain: No acute CVA Pt with MRA neck in 01/2019: Suspected 50% narrowing of the proximal left internal carotid artery No significant change with MRA of the head and neck which shows 50% narrowing of the left internal carotid artery as before ECHO:: Moderate concentric LVH, left ventricular wall motion is normal no regional wall motion abnormalities noted, grade 1 diastolic dysfunction Neurologist consulted appreciate input and recommendation Continue statin, Plavix, aspirin PT and OT evaluation for possible placement (2) Chest pain: No acute EKG changes, negative opponents x3 Echo noted above Field Assistant Dr. Pemberton consulted, further interventions at this time Continue usual cardiac medications (3) CAD (coronary artery disease): Pt with hx CAD. S/P NSTEMI 01/2019, s/p GAETANO to circumflex and RCA Has stable CAD-we will continue current cardiac medications (4) Hyperglycemia: (5) Diabetes mellitus, type II: Random glucose in ER was 425. Anion gap: 12, normal beta hydroxybutyric acid. In ER given Insulin R 10 units IV. BSG down to 309 A1c: 9.0 on 05/04/2019 -Hold home Novolin insulin -Basal bolus insulin per protocol -Glycemic pharmacy consulted Please follow pharmacy recommendations regarding insulin regimen on discharge (6) CKD (chronic kidney disease), stage III: Cr: 1.49, (1.27 on 05/10/19 Creatinine stable (7) Chronic pancreatitis: Chronic abdominal pain and diarrhea. No increased abdominal pain, no nausea, vomiting Has pancreatic stent placed during last admission Monitor (8) HTN (hypertension): -Continue amlodipine, losartan, metoprolol (9) COPD (chronic obstructive pulmonary disease): Patient stopped taking Dulera. -Continue albuterol as needed (10) Anxiety: Hx anxiety, depression -Continue home medicines DVT Prophylaxis -Heparin SQ Full Code as per discussion with pt Follows with Dr Jefferson for routine care OT recommending Inpatient Rehab Likely to be discharged tomorrow Subjective 07/13 The patient was seen and examined in medical telemetry unit Pt is 78 y/o F with PMH HTN, HLD, DM II, CKD III, asthma, COPD, chronic pancreatitis s/p stent, anxiety, depression, sleep apnea, CVA in 01/2019 with residual right-sided weakness, CAD s/p stent (most recent 01/2019) presented to ER with complaint of right arm numbness She has had problems with swelling of the face and the lips following administration of contrast during the MRI She received Solu-Medrol and the condition has been improving as of this morning Feels very weak and lethargic and bloated Review of Systems Review of Systems: All systems reviewed and are unremarkable except as noted below Constitutional: + fatigue and + weakness Gastrointestinal: + bloating; no nausea and no vomiting Musculoskeletal: No acute arthritis involving any joints Neurologic: Alert, awake and oriented x3. Generally weak Physical Exam Physical Exam: Lying in bed comfortably with profound weakness Constitutional: WD/WN, vitals as above well nourished, + ill appearing and + obese; no acute distress Eyes: Minimal swelling of eyelids On both sides ENMT: external ear and nose normal, oropharynx normal Neck: trachea midline, no thyromegaly Respiratory: normal respiratory effort; no respiratory distress Auscultation: lungs clear to auscultation bilaterally Cardiovascular: Rate/Rhythm: regular rate and regular rhythm Heart Sounds: + murmur (1/6 systolic murmur over precordium) Vessels: no JVD Extremities: no edema Gastrointestinal (Abdomen): Inspection/Auscultation: abdomen normal to inspection and normal bowel sounds Percussion/Palpation: abdomen soft Musculoskeletal: No acute pain of the joints Neurologic: moves all extremities (Generally weak Today); no focal motor deficits Lymphatic: no cervical or axillary lymphadenopathy Results & Data Vital Signs (Past 12 Hours) Vital Signs Temp Pulse Pulse Resp BP Pulse Ox 07/13/19 11:15 36.5 C 57 L 20 145/71 H 96 07/13/19 07:24 36.7 C 78 20 139/70 95 07/13/19 07:00 71 07/13/19 04:05 36.6 C 87 24 156/80 H 96 Diagnostic Findings MRA OF HEAD:IMPRESSION: 1. No significant change from the preceding January 2019 study 2. 50% diameter stenosis of the proximal left cavernous internal carotid artery 3. No evidence of aneurysm or major branch occlusion 4. Hypoplastic left A1 segment MRA neck: 1. Stable 50% diameter stenosis of the left internal carotid artery origin 2. Stable 40% diameter narrowing of the proximal cavernous left internal carotid artery 3. Persistent narrowing of the distal left vertebral artery. Medications Administered Current Inpatient Medications Acetaminophen (Tylenol) 650 mg PO Q4H PRN PRN Reason: Pain or Fever Stop: 08/10/19 19:23 Last Admin: 07/13/19 12:34 Dose: 650 mg Documented by: Albuterol (Ventolin Hfa) 2 puffs INH Q4 PRN PRN Reason: Shortness Of Breath Or Wheezing Stop: 08/10/19 19:23 Last Admin: 07/13/19 12:11 Dose: 2 puffs Documented by: Albuterol (Duoneb) 3 ml NEB Q4R PRN PRN Reason: Shortness Of Breath Or Wheezing Stop: 08/12/19 02:59 Amlodip[facility] Bes[facility] ([facility]) [facility] Stop: 08/11/19 08:59 Last Admin: 07/13/19 09:23 Dose: 10 mg Documented by: Aspirin (Ecotrin Ectab) 81 mg PO QPM ON LICENSE OF [facility] Stop: 08/10/19 20:59 Last Admin: 07/12/19 21:11 Dose: 81 mg Documented by: Atorvastatin Calcium (Lipitor) [facility] Stop: 08/11/19 08:59 Last Admin: 07/13/19 09:23 Dose: 40 mg Documented by: Clopidogrel Bisulfate (Plavix) 75 mg PO QAM ON LICENSE OF [facility] Stop: 08/11/19 08:59 Last Admin: 07/13/19 09:23 Dose: 75 mg Documented by: Dextrose (Dextrose 50%) 25 - 50 ml IV UD PRN; Protocol PRN Reason: Hypoglycemia Protocol Stop: 08/10/19 19:23 Dextrose (Dextrose 50%) 25 - 50 ml IV UD PRN; Protocol PRN Reason: Hypoglycemia Protocol Stop: 08/12/19 11:59 Docusate Sodium (Colace) 100 mg PO DAILY PRN PRN Reason: Constipation Stop: 08/10/19 19:23 Fluticasone Propionate (Flonase) 2 sprays JOSE MANUEL QPM PRN PRN Reason: allergies Stop: 08/10/19 19:23 Gabapentin (Neurontin) 800 mg PO [facility] Stop: 08/10/19 20:59 Last Admin: 07/12/19 21:11 Dose: 800 mg Documented by: Gadobutrol (Gadavist 65ml) 6.5 ml IV ONCE PRN PRN Reason: Interaction Checking Stop: 07/15/19 20:21 Last Admin: 07/11/19 20:23 Dose: 6.5 ml Documented by: Gadobutrol (Gadavist 65ml) 6.5 ml IV ONCE PRN PRN Reason: Interaction Checking Stop: 07/16/19 22:52 Last Admin: 07/12/19 22:53 Dose: 6.5 ml Documented by: Glucagon (Glucagen) 1 mg SQ UD PRN; Protocol PRN Reason: Hypoglycemia Protocol Stop: 08/10/19 19:23 Glucagon (Glucagen) 1 mg IM UD PRN; Protocol PRN Reason: Hypoglycemia Protocol Stop: 08/12/19 11:59 Glucose (Dex4 Glucose) 4 - 8 tabs PO UD PRN; Protocol PRN Reason: Hypoglycemia Protocol Stop: 08/10/19 19:23 Glucose (Glucose 40%) 15 - 30 gm PO UD PRN; Protocol PRN Reason: Hypoglycemia Protocol Stop: 08/10/19 19:23 Glucose (Glucose 40%) 15 - 30 gm PO UD PRN; Protocol PRN Reason: Hypoglycemia Protocol Stop: 08/12/19 11:59 Glucose (Dex4 Glucose) 4 - 8 tabs PO UD PRN; Protocol PRN Reason: Hypoglycemia Protocol Stop: 08/12/19 11:59 Heparin Sodium (Porcine) (Heparin Sodium (Porcine)) 5,000 units SQ Q8 JOHN Stop: 08/10/19 21:59 Last Admin: 07/13/19 05:35 Dose: 5,000 units Documented by: Heparin Sodium (Porcine) (Heparin Sod 100 Unit/Ml Flush) 5 ml FLUSH PRN PRN PRN Reason: Flush Stop: 08/10/19 23:44 Last Admin: 07/12/19 23:29 Dose: 5 ml Documented by: Insulin Human Regular 250 (units/ Sodium Chloride) 250 mls @ 1.8 mls/hr IV .Q24H JOHN; Protocol Stop: 08/12/19 11:59 Last Admin: 07/13/19 12:16 Dose: 1.8 units/hr, 1.8 mls/hr Documented by: Insulin Aspart (Novolog Flexpen) 0 units SC ACHS JOHN Stop: 08/10/19 20:59 Last Admin: 07/13/19 12:23 Dose: Not Given Documented by: Insulin Aspart (Novolog Flexpen) 0 units SC [facility] ON LICENSE OF [facility] Stop: 08/12/19 16:29 Insulin Human NPH (Novolin N Nph) 0 units SC BIDM ON LICENSE OF [facility]; Protocol Stop: 08/11/19 16:59 Last Admin: 07/13/19 08:09 Dose: 40 units Documented by: Isosorbide Mononitrate (Imdur Extended Rel) [facility] Stop: 08/11/19 08:59 Last Admin: 07/13/19 09:23 Dose: 30 mg Documented by: Lorazepam (Ativan) 0.5 mg PO Q6 PRN PRN Reason: Anxiety Stop: 08/10/19 19:23 Losartan Potassium (Cozaar) 100 mg PO QAM ON LICENSE OF [facility] Stop: 08/11/19 08:59 Last Admin: 07/13/19 09:23 Dose: 100 mg Documented by: Magnesium Oxide (Mag-Ox) 400 mg PO DAILY ON LICENSE OF [facility] Stop: 08/11/19 08:59 Last Admin: 07/13/19 09:22 Dose: 400 mg Documented by: Metoprolol Tartrate (Lopressor) 25 mg PO BID ON LICENSE OF [facility] Stop: 08/10/19 20:59 Last Admin: 07/13/19 09:23 Dose: 25 mg Documented by: Mirtazapine (Remeron Solutab) 45 mg PO HS ON LICENSE OF [facility] Stop: 08/10/19 20:59 Last Admin: 07/12/19 21:12 Dose: 45 mg Documented by: Miscellaneous (Order Awaiting Action) 1 ea N/A QS ON LICENSE OF [facility] Stop: 08/11/19 07:59 Last Admin: 07/13/19 09:24 Dose: Not Given Documented by: Miscellaneous (Carbohydrates For Hypoglycemia) 15 - 30 gm PO UD PRN PRN Reason: Hypoglycemia Treatment Stop: 08/10/19 19:23 Miscellaneous (Carbohydrates For Hypoglycemia) 15 - 30 gm PO PRN PRN PRN Reason: Hypoglycemia Treatment Stop: 08/12/19 11:59 Miscellaneous Information (Pharmacist Discharge Med Rec Consult) 1 ea N/A UD PRN PRN Reason: Consult Stop: 08/10/19 19:23 Miscellaneous Information (Consult Glycemic Management Pharmacy) 1 ea N/A UD PRN; Protocol PRN Reason: Consult Stop: 08/10/19 19:38 Nitroglycerin (Nitrostat) 0.4 mg SL UD PRN PRN Reason: Chest Pain Stop: 08/10/19 19:23 Ondansetron HCl (Zofran) 4 mg IV Q6H PRN PRN Reason: Nausea Stop: 08/11/19 23:18 Pantoprazole Sodium (Protonix) 40 mg PO DAILY JOHN Stop: 08/11/19 08:59 Last Admin: 07/13/19 09:23 Dose: 40 mg Documented by: Ropinirole HCl (Requip) 1 mg PO HS JOHN Stop: 08/10/19 20:59 Last Admin: 07/12/19 21:12 Dose: 1 mg Documented by: Trazodone HCl (Desyrel) 50 mg PO HS JOHN Stop: 08/10/19 20:59 Last Admin: 07/12/19 21:11 Dose: 50 mg Documented by:
--- NOTE | 2019-07-13 15:57 | Neurology Progress Note ---
Date of Service July 13, 2019 Assessment & Plan (1) Stroke-like symptom: 1. MRI brain no new stroke 2. TTE- no ASD 3. continue current medications aspirin 81 mg and plavix 75 mg daily 4. optimize HTN, HLD, DM LDL <70 5. PT/OT for assessment - for discharge needs 6. cardiology for any further medication adjustments 7. needs to keep well hydrated with H2O when outside [place]. with the heat and humidity 8. previous stroke resulted in R arm/leg weakness- still has residual numbness and tingling and sometime pain 9. history of peripheral neuropathy - need to use walker for support with ambulation 10. MRA head/neck stable vascular findings 11. ZIO as outpatient 12. orthostatic blood pressures please record will seen in office Roxana ALVARADO in 4-6 weeks after discharge Supervising Physician Co-Signing Physician Notes I have seen and discussed above patient with Dr Roxana Rizzo, neurology Pt seen and examined, exam unchanged, mild weakness RUE but no drift. Gait was not tested Imp metab exacerbation of prior stroke sx Poss orthostatic tremor, monitor. Will sing off. SUNDAR Rizzo MD Darrell Dominguez is 78 year old female with PMH HTN, HLD, DM II, CKD III, asthma, COPD, chronic pancreatitis s/p stent, anxiety, depression, sleep apnea, CVA in 01/2019 with residual right-sided weakness, CAD s/p stent (most recent 01/2019) presented to ER with complaint of right arm numbness. Yesterday she had some increased R arm numbness/tingling sensation which has persisted but she has had since her stroke in January. She states she also had some issues with unsteady gait. This morning when woke up, had trouble sitting up and reports felt generalized weakness and noticed felt "shaky" when she tried to sit up. Her son in law is in the room and states she has been ambulating the last 2 days but she was starting to have issues yesterday. She refused to use her walker all the time. She had a frontal WALKER also. There may have been some slurred speech but no facial droop. she has been out side alot and spent 3 hours at [facility] on Thursday without drinking anything. She had some had anterior chest pressure took 1 SL nitro at home with relief. She has had chronic diarrhea for several months because she was suppose to have the stent replaced in her pancrease but has not had it done but it is scheduled for 07/2019. Her BSG have been in the 400-500 but her family states she has not been eating the ways she should. She states she is feeling better today but she is currently on a insulin drip. She has not had any falls. denies current CP, SOB, abdominal pain, new one sided weakness, numbness tingling swallowing issues facial droop, vision changes. Physical Exam Physical Exam: Gen: alert NAD lungs CTA CV RRR no pronator drift intact finger to nose able to stand with walker but still shaky until intiates walking Results & Data Vital Signs (Past 12 Hours) Vital Signs Temp Pulse Pulse Resp BP BP Pulse Ox 07/13/19 15:17 36.5 C 81 18 122/68 96 07/13/19 11:15 36.5 C 57 L 20 145/71 H 96 07/13/19 07:24 36.7 C 78 20 139/70 95 07/13/19 07:00 71 07/13/19 04:05 36.6 C 87 24 156/80 H 96 Laboratory Results Abnormal lab results 07/12/19 07/12/19 07/13/19 Range/Units 16:36 20:12 01:55 POC Glucose 219 H 270 H 176 H (70-99) 07/13/19 07/13/19 07/13/19 Range/Units 02:35 07:34 07:35 POC Glucose 201 H 361 H* 370 H* (70-99) 07/13/19 07/13/19 Range/Units 11:33 11:35 POC Glucose 509 H* 487 H* (70-99) Diagnostic Findings MRA head and neck stable vascular findings
[2019-07-13] MEDS ORDERED: INSULIN HUMAN NPH SC ONE (17:45)
[2019-07-13] MEDS: TRAZODONE HCL 50 MG TAB PO SCH (20:31)
[2019-07-13] MEDS: ASPIRIN 81 MG ECTAB PO SCH (20:31)
[2019-07-13] MEDS: GABAPENTIN 400 MG CAP PO SCH (20:32)
[2019-07-13] MEDS: MIRTAZAPINE SOLTAB 15 MG PO SCH (20:32)
[2019-07-13] MEDS: ROPINIROLE HCL 1 MG TABLET PO SCH (20:33)
[2019-07-14] MEDS: HEPARIN 100 UNIT/ML 5ML FLUSH FLUSH PRN ×2 (00:32→13:59)
[2019-07-14] MEDS: HEPARIN SOD 5,000 UNIT/0.5 ML VIAL SQ SCH (05:49)
[2019-07-14] MEDS: INSULIN ASPART 100 UNITS/ML 3 ML PEN SC SCH ×3 (08:34→12:03)
[2019-07-14] MEDS: INSULIN HUMAN NPH SC SCH (08:37)
[2019-07-14] MEDS: XYZAL~ORDER AWAITING ACTION SCH (08:38)
[2019-07-14] MEDS: PANTOprazole 40 MG TAB PO SCH (08:39)
[2019-07-14] MEDS: AMLODIPINE BESYLATE 5 MG TAB PO SCH (08:39)
[2019-07-14] MEDS: LOSARTAN POTASSIUM 50 MG TAB PO SCH (08:40)
[2019-07-14] MEDS: METOPROLOL TARTRATE 25 MG TAB PO SCH (08:40)
[2019-07-14] MEDS: ATORVASTATIN 40 MG TAB PO SCH (08:41)
[2019-07-14] MEDS: CLOPIDOGREL BISULFATE 75 MG TAB PO SCH (08:41)
[2019-07-14] MEDS: ISOSORBIDE MONO EXTENDED REL 30 MG TABCR PO SCH (08:41)
[2019-07-14] MEDS: MAGNESIUM OXIDE 400 MG TAB PO SCH (09:28)
--- NOTE | 2019-07-14 09:35 | Pharmacy Report ---
Pharmacy Glycemic Short Note 2 - Date of Service July 14, 2019 - Glycemic Short BSG Results (Last 24 hours): 07/13/19 07/13/19 07/13/19 11:33 11:35 13:23 POC Glucose 509 H* 487 H* 410 H* 07/13/19 07/13/19 07/13/19 14:19 15:26 16:27 POC Glucose 378 H* 369 H* 315 H* 07/13/19 07/13/19 07/13/19 17:21 18:22 19:24 POC Glucose 319 H* 336 H* 276 H 07/13/19 07/13/19 07/13/19 20:23 21:25 22:27 POC Glucose 208 H 177 H 122 H 07/13/19 07/13/19 07/14/19 22:45 23:45 02:04 POC Glucose 122 H 118 H 118 H 07/14/19 07/14/19 04:00 07:33 POC Glucose 122 H 111 H ASSESSMENT: * 78 yo F with T2DM which required initiation of insulin drip 07/13 afternoon due to steroid-induced hyperglycemia with BSG >500 mg/dL from one-time dose of methylprednisolone on 07/12 PM. Steroid effects dissipated 07/13 PM and insulin drip was successfully transitioned off at ~2200 last night. BSG's since that time have ranged 111-122 mg/dL with no additional insulin required * Will resume similar regimen that adequately controlled the patient's BSG's on previous admission (when not receiving steroids) PLAN FOR INPATIENT GLYCEMIC CONTROL: * Basal insulin: NPH scale SQ BIDM * 30 units for BSGs <120 * 35 units for BSGs 120-180 * 40 units for BSGs >180 * Bolus insulin * NovoLog per scale ACHS or Q6hrs while NPO * Goal Range: Low 110 mg/dL - High 140 mg/dL * Correction Factor: 20 mg/dL/unit * Nutritional / Prandial insulin per carb ratio of 1 unit per 6 grams CHO consumed
[2019-07-14 09:38] LABS: BUN Creatinine Ratio 19.1 (10-20); Calcium 8.4 mg/dl (8.5-10.1); Creatinine Clr Calc Pharmacy 25.3 ml/min; Est GFR (African American) 34.9; Est GFR (Non-African American) 30.1
--- NOTE | 2019-07-14 12:50 | Hospitalist Progress Note ---
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 presented with c/o R arm paresthesias and generalized weakness started the day before admission CT head: no acute changes MRI brain: No acute CVA Pt with MRA neck in 01/2019: Suspected 50% narrowing of the proximal left internal carotid artery No significant change with MRA of the head and neck which shows 50% narrowing of the left internal carotid artery as before ECHO:: Moderate concentric LVH, left ventricular wall motion is normal no regional wall motion abnormalities noted, grade 1 diastolic dysfunction Neurologist consulted appreciate input and recommendation Continue statin, Plavix, aspirin PT and OT evaluation -recommended home She will discharge this afternoon (2) Chest pain: No acute EKG changes, negative opponents x3 Echo noted above [employer] Dr. Pemberton consulted, further interventions at this time Continue usual cardiac medications (3) CAD (coronary artery disease): Pt with hx CAD. S/P NSTEMI 01/2019, s/p GAETANO to circumflex and RCA Has stable CAD-we will continue current cardiac medications (4) Hyperglycemia: Noted to be due to use of prednisone Prednisone has been discontinued (5) Diabetes mellitus, type II: Random glucose in ER was 425. Anion gap: 12, normal beta hydroxybutyric acid. In ER given Insulin R 10 units IV. BSG down to 309 A1c: 9.0 on 05/04/2019 -Hold home Novolin insulin -Basal bolus insulin per protocol -Glycemic pharmacy consulted Please follow pharmacy recommendations regarding insulin regimen on discharge Discussed with glycemic pharmacist We will discharge her on home insulin doses (6) CKD (chronic kidney disease), stage III: Cr: 1.49, (1.27 on 05/10/19 Creatinine stable (7) Chronic pancreatitis: Chronic abdominal pain and diarrhea. No increased abdominal pain, no nausea, vomiting Has pancreatic stent placed during last admission Monitor-acute symptoms (8) HTN (hypertension): -Continue amlodipine, losartan, metoprolol (9) COPD (chronic obstructive pulmonary disease): Patient stopped taking Dulera. -Continue albuterol as needed (10) Anxiety: Hx anxiety, depression -Continue home medicines DVT Prophylaxis -Heparin SQ Full Code as per discussion with pt Follows with Dr Jefferson for routine care Discharge home today Subjective 07/13 The patient was seen and examined in medical telemetry unit Pt is 78 y/o F with PMH HTN, HLD, DM II, CKD III, asthma, COPD, chronic pancreatitis s/p stent, anxiety, depression, sleep apnea, CVA in 01/2019 with residual right-sided weakness, CAD s/p stent (most recent 01/2019) presented to ER with complaint of right arm numbness She has had problems with swelling of the face and the lips following administration of contrast during the MRI She received Solu-Medrol and the condition has been improving as of this morning Feels very weak and lethargic and bloated 07/14 The patient was seen and examined in medical telemetry unit She has been feeling a lot better without any more weakness and the tightness Denies any chest pain and/or palpitation Has been ambulating without any problem Review of Systems Review of Systems: All systems reviewed and are unremarkable except as noted below Constitutional: + weakness Gastrointestinal: + nausea and + vomiting Musculoskeletal: No acute arthritis involving any joints Neurologic: Alert, awake and oriented x3. Generally weak Physical Exam Physical Exam: No apparent distress at rest and sitting on the side of the bed Constitutional: well nourished, + ill appearing and + obese; no acute distress ENMT: external ear and nose normal, oropharynx normal Neck: trachea midline, no thyromegaly Respiratory: normal respiratory effort; no respiratory distress Auscultation: lungs clear to auscultation bilaterally and + diminished lung sounds Cardiovascular: Rate/Rhythm: regular rate and regular rhythm Heart Sounds: + murmur (1/6 systolic murmur over precordium) Vessels: no JVD Extremities: no edema Gastrointestinal (Abdomen): Inspection/Auscultation: abdomen normal to inspection and normal bowel sounds Percussion/Palpation: abdomen soft Musculoskeletal: No acute arthritis in any joints Neurologic: moves all extremities (Generally weak Today); no focal motor deficits Lymphatic: no cervical or axillary lymphadenopathy Results & Data Vital Signs (Past 12 Hours) Vital Signs Temp Pulse Pulse Resp BP BP Pulse Ox 07/14/19 11:16 36.6 C 76 18 128/77 96 07/14/19 10:55 37.1 C 67 19 122/69 116/68 96 07/14/19 09:00 68 07/14/19 07:22 37.1 C 67 19 116/68 96 07/14/19 04:06 37.1 C 72 18 122/69 96 Laboratory Results BMP 07/14/19 08:49 Sodium 141 Potassium 4.0 Chloride 112 H Carbon Dioxide 23 BUN 31 H Creatinine 1.62 H Glucose 175 H Calcium 8.4 L Medications Administered Current Inpatient Medications Acetaminophen (Tylenol) 650 mg PO Q4H PRN PRN Reason: Pain or Fever Stop: 08/10/19 19:23 Last Admin: 07/13/19 12:34 Dose: 650 mg Documented by: Albuterol (Ventolin Hfa) 2 puffs INH Q4 PRN PRN Reason: Shortness Of Breath Or Wheezing Stop: 08/10/19 19:23 Last Admin: 07/13/19 12:11 Dose: 2 puffs Documented by: Albuterol (Duoneb) 3 ml NEB Q4R PRN PRN Reason: Shortness Of Breath Or Wheezing Stop: 08/12/19 02:59 A[facility]odip[facility] Bes[facility]) [facility] Stop: 08/11/19 08:59 Last Admin: 07/14/19 08:39 Dose: 10 mg Documented by: Aspirin (Ecotrin Ectab) 81 mg PO QPM [facility] Stop: 08/10/19 20:59 Last Admin: 07/13/19 20:31 Dose: 81 mg Documented by: Atorvastatin Calcium (Lipitor) [facility] Stop: 08/11/19 08:59 Last Admin: 07/14/19 08:41 Dose: 40 mg Documented by: Clopidogrel Bisulfate (Plavix) [facility] Stop: 08/11/19 08:59 Last Admin: 07/14/19 08:41 Dose: 75 mg Documented by: Dextrose (Dextrose 50%) 25 - 50 ml IV UD PRN; Protocol PRN Reason: Hypoglycemia Protocol Stop: 08/10/19 19:23 Dextrose (Dextrose 50%) 25 - 50 ml IV UD PRN; Protocol PRN Reason: Hypoglycemia Protocol Stop: 08/12/19 11:59 Docusate Sodium (Colace) 100 mg PO DAILY PRN PRN Reason: Constipation Stop: 08/10/19 19:23 Fluticasone Propionate (Flonase) 2 sprays JOSE MANUEL QPM PRN PRN Reason: allergies Stop: 08/10/19 19:23 Gabapentin (Neurontin) 800 mg PO [facility] Stop: 08/10/19 20:59 Last Admin: 07/13/19 20:32 Dose: 800 mg Documented by: Gadobutrol (Gadavist 65ml) 6.5 ml IV ONCE PRN PRN Reason: Interaction Checking Stop: 07/15/19 20:21 Last Admin: 07/11/19 20:23 Dose: 6.5 ml Documented by: Gadobutrol (Gadavist 65ml) 6.5 ml IV ONCE PRN PRN Reason: Interaction Checking Stop: 07/16/19 22:52 Last Admin: 07/12/19 22:53 Dose: 6.5 ml Documented by: Glucagon (Glucagen) 1 mg SQ UD PRN; Protocol PRN Reason: Hypoglycemia Protocol Stop: 08/10/19 19:23 Glucagon (Glucagen) 1 mg IM UD PRN; Protocol PRN Reason: Hypoglycemia Protocol Stop: 08/12/19 11:59 Glucose (Dex4 Glucose) 4 - 8 tabs PO UD PRN; Protocol PRN Reason: Hypoglycemia Protocol Stop: 08/10/19 19:23 Glucose (Glucose 40%) 15 - 30 gm PO UD PRN; Protocol PRN Reason: Hypoglycemia Protocol Stop: 08/10/19 19:23 Glucose (Glucose 40%) 15 - 30 gm PO UD PRN; Protocol PRN Reason: Hypoglycemia Protocol Stop: 08/12/19 11:59 Glucose (Dex4 Glucose) 4 - 8 tabs PO UD PRN; Protocol PRN Reason: Hypoglycemia Protocol Stop: 08/12/19 11:59 Heparin Sodium (Porcine) (Heparin Sodium (Porcine)) 5,000 units SQ Q8 JOHN Stop: 08/10/19 21:59 Last Admin: 07/14/19 05:49 Dose: 5,000 units Documented by: Heparin Sodium (Porcine) (Heparin Sod 100 Unit/Ml Flush) 5 ml FLUSH PRN PRN PRN Reason: Flush Stop: 08/10/19 23:44 Last Admin: 07/14/19 00:32 Dose: 5 ml Documented by: Insulin Aspart (Novolog Flexpen) 0 units SC ACHS [facility] Stop: 08/10/19 20:59 Last Admin: 07/14/19 12:03 Dose: 18 units Documented by: Insulin Human NPH (Novolin N Nph) 0 units SC BIDM [facility]; Protocol Stop: 08/11/19 16:59 Last Admin: 07/14/19 08:37 Dose: 30 units Documented by: Isosorbide Mononitrate (Imdur Extended Rel) 30 mg PO QAM [facility] Stop: 08/11/19 08:59 Last Admin: 07/14/19 08:41 Dose: 30 mg Documented by: Lorazepam (Ativan) 0.5 mg PO Q6 PRN PRN Reason: Anxiety Stop: 08/10/19 19:23 Losartan Potassium (Cozaar) 100 mg PO QAM [facility] Stop: 08/11/19 08:59 Last Admin: 07/14/19 08:40 Dose: 100 mg Documented by: Magnesium Oxide (Mag-Ox) 400 mg PO DAILY [facility] Stop: 08/11/19 08:59 Last Admin: 07/14/19 09:28 Dose: 400 mg Documented by: Metoprolol Tartrate (Lopressor) 25 mg PO BID [facility] Stop: 08/10/19 20:59 Last Admin: 07/14/19 08:40 Dose: 25 mg Documented by: Mirtazapine (Remeron Solutab) 45 mg PO HS [facility] Stop: 08/10/19 20:59 Last Admin: 07/13/19 20:32 Dose: 45 mg Documented by: Miscellaneous (Order Awaiting Action) 1 ea N/A QS [facility] Stop: 08/11/19 07:59 Last Admin: 07/14/19 08:38 Dose: Not Given Documented by: Miscellaneous (Carbohydrates For Hypoglycemia) 15 - 30 gm PO UD PRN PRN Reason: Hypoglycemia Treatment Stop: 08/10/19 19:23 Miscellaneous (Carbohydrates For Hypoglycemia) 15 - 30 gm PO PRN PRN PRN Reason: Hypoglycemia Treatment Stop: 08/12/19 11:59 Miscellaneous Information (Pharmacist Discharge Med Rec Consult) 1 ea N/A UD PRN PRN Reason: Consult Stop: 08/10/19 19:23 Miscellaneous Information (Consult Glycemic Management Pharmacy) 1 ea N/A UD PRN; Protocol PRN Reason: Consult Stop: 08/10/19 19:38 Nitroglycerin (Nitrostat) 0.4 mg SL UD PRN PRN Reason: Chest Pain Stop: 08/10/19 19:23 Ondansetron HCl (Zofran) 4 mg IV Q6H PRN PRN Reason: Nausea Stop: 08/11/19 23:18 Pantoprazole Sodium (Protonix) 40 mg PO DAILY [facility] Stop: 08/11/19 08:59 Last Admin: 07/14/19 08:39 Dose: 40 mg Documented by: Ropinirole HCl (Requip) 1 mg PO [facility] Stop: 08/10/19 20:59 Last Admin: 07/13/19 20:33 Dose: 1 mg Documented by: Trazodone HCl (Desyrel) 50 mg PO [facility] Stop: 08/10/19 20:59 Last Admin: 07/13/19 20:31 Dose: 50 mg Documented by:
[2019-07-14] MEDS ORDERED: STROKE PATIENT DISCHARGE STA (12:55)
--- NOTE | 2019-07-14 18:22 | Discharge Summary ---
Date of Service July 14, 2019 Admission HPI Per Admitting Provider Pt is 78 y/o F with PMH HTN, HLD, DM II, CKD III, asthma, COPD, chronic pancreatitis s/p stent, anxiety, depression, sleep apnea, CVA in 01/2019 with residual right-sided weakness, CAD s/p stent (most recent 01/2019) presented to ER with complaint of right arm numbness. Pt states yesterday with increased R arm numbness/tingling sensation which has persisted today. Reports yesterday with unsteady gait. This morning when woke up, had trouble sitting up and reports felt generalized weakness and noticed felt "shaky" when she tried to sit up. She states that she was ambulating well past 1-2 months and was not needing her walker until yesterday. C/O frontal WALKER today. She states yesterday thought she had slurred speech, but none today. Denies facial drooping. Reports yesterday ambulated to family picnic and after had non-radiating anterior CP which was relieved with 1SL nitro. Today around 3:00PM reports had anterior chest pressure. Took 1 SL nitro at home with relief. Denies associated SOB, dizziness, diaphoresis. Chronic loose stools. Chronic upper abdominal pain and reports this is at her baseline. Reports scheduled to have pancreatic stent replaced in 07/2019. Reports BSGs running 400-500 at home the past 4 days. She reports not missing her insulin or medications. Denies fever/chills, diaphoresis, N/V, WALKER, dizziness, syncope, vision changes, neck pain, SOB, orthopnea, palpitations, cough, sore throat, choking, otalgia, rhinorrhea, extremity edema, rashes, urinary symptoms. 01/2019 MRA HEAD: 1. Moderate focal narrowing of the proximal cavernous segment left ICA is unchanged. 2. No aneurysm, dissection or proximal branch occlusion. 3. Less than 50% luminal narrowing involves the left P1 segment, also unchanged. 01/2019 MRA NECK: 1. Exam compromised given lack of postcontrast imaging and mild motion artifact. Suspected 50% narrowing of the proximal left internal carotid artery which is similar to MRI of April 15, 2016. 2. Moderate narrowing of the intracranial portion of the left internal carotid artery at the junction of the petrous and cavernous portions. 01/2019 C-SPINE MRI: 1. 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 This is similar to prior MRI of May 06, 2015. Severe bilateral neural foraminal stenosis at this level which has mildly increased. 2. Normal cervical cord signal and caliber. Admission Exam Per Admitting Provider Physical Exam: General: no acute distress, WDWN Head: normocephalic, atraumatic Eyes: PERRL, EOM's intact, conjunctiva non-injected, anicteric ENT: normal inspection external ears, nose, mucous membranes moist Neck: supple, trachea midline, non-tender, ROM intact Lungs: clear, no respiratory distress, no wheezing/rhonchi/rales CV: RRR, no murmur,no pretibial edema Abd: normal BS, soft, mild tenderness to epigastric without rebound or guarding Ext: no cyanosis, no calf tenderness Neuro: A&O x 3, mildly flat affect, Facial sensation is intact and symmetric, face is strong and symmetric, hearing grossly intact, no dysarthria, tongue is midline, normal movement, no fasciculations, right arm and right leg with weakness, no pronator drift, reported decreased sensation to light touch to entire right arm and all fingers, finger to nose intact, Skin: warm, dry Principal Diagnosis Strokelike symptoms, acute CVA ruled out, stable CAD, chronic pancreatitis, type 2 diabetes, COPD Discharge Exam Constitutional WD/WN, vitals as above well nourished, + ill appearing and + obese; no acute distress ENMT external ear and nose normal, oropharynx normal Neck trachea midline, no thyromegaly Respiratory normal respiratory effort, lungs clear to auscultation normal respiratory effort; no respiratory distress Auscultation: lungs clear to auscultation bilaterally and + diminished lung sounds Cardiovascular RRR, no murmur, no edema Rate/Rhythm: regular rate and regular rhythm Heart Sounds: + murmur (1/6 systolic murmur over precordium) Vessels: no JVD Extremities: no edema Gastrointestinal (Abdomen) normal bowel sounds, soft, nontender, no hepatosplenomegaly Inspection/Auscultation: abdomen normal to inspection and normal bowel sounds Percussion/Palpation: abdomen soft Neurologic patellar DTR's 2+ bilat, sensation intact moves all extremities (Generally weak Today); no focal motor deficits Lymphatic no cervical or axillary lymphadenopathy Discharge Data Allergies Allergy/AdvReac Type Severity Reaction Status Date / Time Gadolinium-Containing Allergy Severe NAUSEA,VOMITING, Verified 07/13/19 07:54 Contrast Medi SWELLING/EDEMA AROUND EYES, WHEEZING Iodinated Contrast- Oral and Allergy Severe RASH TO Verified 07/11/19 16:12 IV Dye IVP DYE,NAUSEA, FAINTING, COUGHING, GAGGING, HEADACH Sulfa (Sulfonamide Allergy Severe HIVES, Verified 07/11/19 16:12 Antibiotics) FACIAL AND ARM SWELLING cerivastatin Allergy Intermediate HIVES Verified 07/11/19 16:12 codeine Allergy Intermediate "PRICKLY Verified 07/11/19 16:12 RASH" hydroxyzine Allergy Intermediate N/V Verified 07/11/19 16:12 latex Allergy Intermediate DERMATITIS-PT Verified 07/11/19 16:12 TOLERATED A LATEX CATHETER 03/26/08 Bactrim Allergy Mild RASH Verified 04/29/18 14:40 diphenhydramine Allergy Mild RASH; Verified 07/11/19 16:12 SLEEPINESS WITH "PHARBEDRYL" loratadine Allergy Mild HIVES Verified 07/11/19 16:12 sulfamethoxazole Allergy Mild RASH Verified 07/11/19 16:12 trimethoprim Allergy Mild RASH Verified 07/11/19 16:12 prednisone Allergy Unknown elevates Verified 07/11/19 16:12 blood sugar tetanus toxoid, adsorbed AdvReac Intermediate SWELLING Verified 07/11/19 16:12 AT INJECTION SITE alprazolam AdvReac Unknown "SLEEPY Verified 07/11/19 16:12 STUPER" metformin AdvReac Unknown DIARRHEA Verified 07/11/19 16:12 morphine AdvReac Unknown VOMITING Verified 07/11/19 16:12 simvastatin AdvReac Unknown COUGH, Verified 07/11/19 16:12 "DISCOMFORT" gadobutrol [From Gadavist] AdvReac Anaphylaxis Unverified 07/13/19 00:36 Consultations 07/11/19 18:11 ED Decision to Admit Stat 07/11/19 19:24 Consult Case Management - Discharge Planning Routine Consult Case Management - Discharge Planning Routine Consult Neurology Routine 07/11/19 19:39 Consult Cardiology Routine Ordered Studies 07/11/19 15:07 CT head/brain wo con Stat 07/11/19 19:24 MR brain wo/w con Routine 07/12/19 20:08 MR angio head wo con Routine MR angio neck wo/w con Routine Hospital Course (1) Stroke-like symptom: Acute CVA ruled out Pt with h/o lacunar infarct to the left frontal in 01/2019 with residual right sided weakness presented with c/o R arm paresthesias and generalized weakness started the day before admission CT head: no acute changes MRI brain: No acute CVA Pt with MRA neck in 01/2019: Suspected 50% narrowing of the proximal left internal carotid artery No significant change with MRA of the head and neck which shows 50% narrowing of the left internal carotid artery as before ECHO:: Moderate concentric LVH, left ventricular wall motion is normal no regional wall motion abnormalities noted, grade 1 diastolic dysfunction Neurologist consulted appreciate input and recommendation Continue statin, Plavix, aspirin PT and OT evaluation -recommended home She will discharge this afternoon (2) Chest pain: No acute EKG changes, negative opponents x3 Echo noted above Administrative Dietitian Dr. Pemberton consulted, further interventions at this time Continue usual cardiac medications (3) CAD (coronary artery disease): Pt with hx CAD. S/P NSTEMI 01/2019, s/p GAETANO to circumflex and RCA Has stable CAD-we will continue current cardiac medications (4) Hyperglycemia: Noted to be due to use of prednisone Prednisone has been discontinued (5) Diabetes mellitus, type II: Random glucose in ER was 425. Anion gap: 12, normal beta hydroxybutyric acid. In ER given Insulin R 10 units IV. BSG down to 309 A1c: 9.0 on 05/04/2019 -Hold home Novolin insulin -Basal bolus insulin per protocol -Glycemic pharmacy consulted Please follow pharmacy recommendations regarding insulin regimen on discharge Discussed with glycemic pharmacist We will discharge her on home insulin doses (6) CKD (chronic kidney disease), stage III: Cr: 1.49, (1.27 on 05/10/19 Creatinine stable (7) Chronic pancreatitis: Chronic abdominal pain and diarrhea. No increased abdominal pain, no nausea, vomiting Has pancreatic stent placed during last admission Monitor-acute symptoms (8) HTN (hypertension): -Continue amlodipine, losartan, metoprolol (9) COPD (chronic obstructive pulmonary disease): Patient stopped taking Dulera. -Continue albuterol as needed (10) Anxiety: Hx anxiety, depression -Continue home medicines DVT Prophylaxis -Heparin SQ Full Code as per discussion with pt Follows with Dr Jefferson for routine care Discharge home today Total Time Total Time Spent Total Time Spent (In Minutes): 35 minutes Total Time Includes: Examination of the Patient, Discharge Planning, Medication Reconciliation and Communication With Other Providers Discharge Plan Discharge Items Patient Disposition: Home - Self-Care Reason For Visit: RT ARM PARESTHESIAS Discharge Diagnosis: Strokelike symptoms, acute CVA ruled out, stable CAD, chronic pancreatitis, type 2 diabetes, COPD Condition: Fair Discharge Goals: Decrease discomfort and Improve function Activity: Resume your previous activity Non-emergency contact: Primary Care Provider Call non-emergency contact if: you have any medication questions and your symptoms worsen Follow-up/Referrals: Colleen Jefferson DO [Primary Care Provider] - 07/19/19 10:45 am Diet: Carb Consistent or DM2, Heart Healthy and Low Sodium (2gm) Addtl Provider Instructions: Please take precaution to avoid falls No change in her current medications Prescriptions: Continued trazodone 50 mg Tablet 50 mg PO HS RF: 0 ondansetron HCl [Zofran] 4 mg Tablet 4 mg PO QID PRN (Reason: Nausea) RF: 0 aspirin 81 mg Tablet,Delayed Release (Dr/Ec) 1 tab PO QPM RF: 0 lorazepam [Ativan] 0.5 mg Tablet 0.5 mg PO Q6 PRN (Reason: Anxiety) RF: 0 amlodipine [Norvasc] 10 mg Tablet 10 mg PO QAM RF: 0 docusate sodium [Colace] 100 mg Capsule 100 mg PO DAILY PRN (Reason: Constipation) RF: 0 fluticasone propionate [Flonase Allergy Relief] 50 mcg/actuation [place],Suspension 2 spray INTRANASAL QPM PRN (Reason: allergies) RF: 0 dicyclomine 10 mg Capsule 10 mg PO TID PRN (Reason: ABDOMINAL CRAMPS) RF: 0 ropinirole 1 mg tablet 1 mg PO HS RF: 0 losartan 100 mg tablet 100 mg PO QAM RF: 0 levocetirizine [Xyzal] 5 mg Tablet 2.5 mg PO QPM RF: 0 albuterol sulfate 2.5 mg /3 mL (0.083 %) Solution For Nebulization 2.5 mg INHALATION QID PRN (Reason: Shortness Of Breath Or Wheezing) RF: 0 mirtazapine 45 mg Tablet 45 mg PO HS RF: 0 atorvastatin 40 mg Tablet 40 mg PO QAM Qty: 30 RF: 0 isosorbide mononitrate 30 mg Tablet Extended Release 24 Hr 30 mg PO QAM Qty: 30 RF: 0 clopidogrel 75 mg Tablet 75 mg PO QAM Qty: 30 RF: 2 nitroglycerin [Nitrostat] 0.4 mg Tablet, Sublingual 0.4 mg Sublingual PRN PRN (Reason: chest pain) Qty: 30 RF: 0 Novolin 70/30 U-100 Insulin 100 unit/mL (70-30) suspension 55 unit subcut QAM RF: 0 Novolin 70/30 U-100 Insulin 100 unit/mL (70-30) suspension 35 unit subcut QPM RF: 0 albuterol sulfate [Proventil HFA] 90 mcg/actuation Hfa Aerosol Inhaler 2 puff INHALATION Q4 PRN (Reason: Shortness Of Breath Or Wheezing) RF: 0 gabapentin 400 mg capsule 800 mg PO HS RF: 0 magnesium oxide 400 mg (241.3 mg magnesium) tablet 400 mg PO DAILY RF: 0 metoprolol tartrate 25 mg Tablet 25 mg PO BID RF: 0 pantoprazole 40 mg tablet,delayed release (DR/EC) 40 mg PO DAILY RF: 0 Stand-Alone Forms: [facility] Discharge Orders: Discharge Order (Routine); Ordered 07/14/19 Ordered By: Yony Gonzalez Admission Data Admit Date/Time: 07/11/19 18:32 Attending Provider: Yony Gonzalez Admit Provider: Saul Conrad Primary Care Provider: Colleen Jefferson Other Providers: Roxana Rizzo ; Caren Guerra ; Bruno Chavez Robin A. Service: Telemetry Medical Other Interventions: Discharge Summary Assessment (RN) Last Done: 07/14/19 10:55 DC Date/Time DO NOT enter until pt leaves facility: 07/14/19 14:10
== END 2019-07-14 14:10 | disposition home or self-care (01) | DRG 57 ==
LOC: ED 14:43 → SUATTDRO 18:32 → 2N 18:32

== ENCOUNTER 2019-07-26 21:25 | Inpatient (IN) ==
[2019-07-26] MEDS ORDERED: methylPREDNISolone 125 MG/2 ML VIAL IV STA (21:54)
[2019-07-26] MEDS ORDERED: ALBUT/IPRATROP 3MG/0.5MG NEB 3 ML VIAL NEB ONE (21:54)
[2019-07-26 22:05] LABS: Hematocrit (blood only) 35.2 % (37-47); Hemoglobin 12.1 g/dL (12.0-16.0); Mean Corpuscular Hgb Conc 34.4 g/dL (32-36); Mean Corpuscular Volume 89.1 fL (80-100); Mean Platelet Volume 9.7 fL (7.4-10.4); Platelet Count 224 K/uL (130-400); RDW Standard Deviation 46.1 fL (36.4-46.3); Red Blood Count 3.95 M/uL (4.2-5.4); White Blood Count 12.74 K/uL (4.8-10.8)
--- NOTE | 2019-07-26 22:14 | XRay Report ---
XR chest 1V portable HISTORY: 78 years-old Female sob acute shortness of breath COMPARISON: Chest radiograph 07/11/2019 TECHNIQUE: Portable AP view of the chest FINDINGS: Cardiac silhouette is enlarged, unchanged. Calcified plaque of the thoracic aortic arch. Stable posit ioning of the right IJ central venous catheter. No pneumothorax, pleural effusion or overt pulmonary edema. Degenerative changes of the shoulders and spine. IMPRESSION: No acute process. The above report was generated using voice recognition software. It may contain grammatical, syntax o r spelling errors. Electronically signed by: Rob Juarez M.D. 07/26/2019 10:12 PM
[2019-07-26 22:16] LABS: INR 1.1 (0.9-1.1); Partial Thromboplastin Ratio 1.4; Partial Thromboplastin Time 39.2 Seconds (21.0-31.0)
[2019-07-26 22:31] LABS: ALC (manual) 5.36 K/uL (1.2-3.4); Basophils # (manual) 0.23 K/uL (0-0.2); Basophils % (manual) 1.8 %; Echinocytes 2+; Eosinophils # (manual) 0.78 K/uL (0-0.5); Eosinophils % (manual) 6.1 %; Lymphocytes # (manual) 2.13 K/uL (1.2-3.4); Lymphocytes % (manual) 16.7 %; Monocytes # (manual) 0.56 K/uL (0.11-0.59); Monocytes % (manual) 4.4 %; Neutrophils % (manual) 45.6 %; Ovalocytes 1+; Reactive Lymphocytes # (manual) 3.24 K/uL
--- NOTE | 2019-07-26 22:47 | Emergency Department Note ---
History of Present Illness General Chief complaint: Shortness of Breath/Dyspnea Stated complaint: SOB History of Present Illness Maximum Pain Intensity: 6 This 78-year-old presents to the ER complaining of dyspnea Location: Chest Quality: Hard to breathe Severity: Severe Duration: Today Timing: Started today Context: Symptoms got worse and patient came in Modifying factors: better with albuterol; worse with activity Patient has COPD. No recent steroids. Patient denies chest pain, fever, productive cough, abdominal pain, leg pain or swelling. Home Medications Home Medications Medication Instructions Recorded Confirmed Type amlodipine [Norvasc] 10 mg PO QAM 08/24/18 07/26/19 History aspirin 1 tab PO QPM 08/24/18 07/26/19 History dicyclomine 10 mg PO TID PRN 08/24/18 07/26/19 History fluticasone propionate [Flonase 2 spray INTRANASAL QPM PRN 08/24/18 07/26/19 History Allergy Relief] lorazepam [Ativan] 0.5 mg PO Q6 PRN 08/24/18 07/26/19 History ondansetron HCl [Zofran] 4 mg PO QID PRN 08/24/18 07/26/19 History trazodone 50 mg PO HS 08/24/18 07/26/19 History albuterol sulfate 2.5 mg INHALATION QID PRN 01/26/19 07/26/19 History levocetirizine [Xyzal] 2.5 mg PO QPM 01/26/19 07/26/19 History losartan 100 mg PO QAM 01/26/19 07/26/19 History mirtazapine 45 mg PO HS 01/26/19 07/26/19 History ropinirole 1 mg PO HS 01/26/19 07/26/19 History atorvastatin 40 mg PO QAM #30 tab 01/28/19 07/26/19 Rx clopidogrel 75 mg PO QAM #30 tab 01/28/19 07/26/19 Rx isosorbide mononitrate 30 mg PO QAM #30 tab 01/28/19 07/26/19 Rx nitroglycerin [Nitrostat] 0.4 mg SUBLINGUAL PRN PRN #30 tab 01/28/19 07/26/19 Rx Novolin 70/30 U-100 Insulin 35 unit SUBCUT QPM 05/04/19 07/26/19 History Novolin 70/30 U-100 Insulin 55 unit SUBCUT QAM 05/04/19 07/26/19 History albuterol sulfate [Proventil HFA] 2 puff INHALATION Q4 PRN 05/04/19 07/26/19 History gabapentin 800 mg PO HS 07/11/19 07/26/19 History magnesium oxide 400 mg PO QPM 07/11/19 07/26/19 History metoprolol tartrate 25 mg PO BID 07/11/19 07/26/19 History pantoprazole 40 mg PO QPM 07/11/19 07/26/19 History Allergies Allergy/AdvReac Type Severity Reaction Status Date / Time Gadolinium-Containing Allergy Severe NAUSEA,VOMITING, Verified 07/26/19 23:37 Contrast Medi SWELLING/EDEMA AROUND EYES, WHEEZING Iodinated Contrast- Oral and Allergy Severe RASH TO Verified 07/26/19 23:37 IV Dye IVP DYE,NAUSEA, FAINTING, COUGHING, GAGGING, HEADACH Sulfa (Sulfonamide Allergy Severe HIVES, Verified 07/26/19 23:37 Antibiotics) FACIAL AND ARM SWELLING cerivastatin Allergy Intermediate HIVES Verified 07/26/19 23:37 codeine Allergy Intermediate "PRICKLY Verified 07/26/19 23:37 RASH" hydroxyzine Allergy Intermediate N/V Verified 07/26/19 23:37 latex Allergy Intermediate DERMATITIS-PT Verified 07/26/19 23:37 TOLERATED A LATEX CATHETER 03/26/08 Bactrim Allergy Mild RASH Verified 04/29/18 14:40 diphenhydramine Allergy Mild RASH; Verified 07/26/19 23:37 SLEEPINESS WITH "PHARBEDRYL" loratadine Allergy Mild HIVES Verified 07/26/19 23:37 sulfamethoxazole Allergy Mild RASH Verified 07/19/19 15:37 trimethoprim Allergy Mild RASH Verified 07/19/19 15:37 prednisone Allergy Unknown elevates Verified 07/19/19 15:37 blood sugar tetanus toxoid, adsorbed AdvReac Intermediate SWELLING Verified 07/19/19 15:37 AT INJECTION SITE alprazolam AdvReac Unknown "SLEEPY Verified 07/19/19 15:37 STUPER" metformin AdvReac Unknown DIARRHEA Verified 07/19/19 15:37 morphine AdvReac Unknown VOMITING Verified 07/19/19 15:37 simvastatin AdvReac Unknown COUGH, Verified 07/19/19 15:37 "DISCOMFORT" gadobutrol [From Gadavist] AdvReac Anaphylaxis Unverified 07/19/19 15:37 Past Med/Surg History Medical History Osteoarthritis (Chronic) Seasonal allergies (Chronic) Aortic stenosis (Chronic) moderate Pancreatitis Acute CVA (cerebrovascular accident) 01/2019 X 2-NUMBNESS RIGHT ARM/"MEMORY LOSS SLOWLY COMING BACK" Elevated troponin Weakness Pre-syncope Leukocytosis Pneumonia Valvular heart disease Non-STEMI (non-ST elevated myocardial infarction) 01/2019 Left bundle branch block Giant cell arteritis (Resolved) Gastroparesis (Chronic) Dyslipidemia (Chronic) Depression (Chronic) HTN (hypertension) (Chronic) Insomnia (Chronic) RLS (restless legs syndrome) (Chronic) Peripheral neuropathy (Chronic) Pancreatic cyst (Chronic) Anxiety (Chronic) COPD (chronic obstructive pulmonary disease) (Chronic) Diabetes mellitus, type II (Chronic) poorly controlled Sleep apnea (Chronic) PT DENIES/NO DEVICE Chronic pancreatitis (Chronic) Cerebrovascular disease (Chronic) "history stroke and TIA" L sided weakness. Fatty liver (Chronic) Esophageal dysmotility (Chronic) Pancreatic divisum (Chronic) CKD (chronic kidney disease), stage III (Chronic) F/U PCP GERD (gastroesophageal reflux disease) Surgical History History of ERCP (Resolved) x3 with stents. ERCP 04/30/18. MAC 3, grade 2 view. 7.0 ETT placed. No issues. History of bilateral tubal ligation (Resolved) S/P cardiac catheterization (Resolved) 01/2019 [facility] X 2-TOTAL 2 STENTS 04/2019 non obstructive disease History of cataract surgery (Chronic) both eyes Family History Daughter No problems noted. 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 Beliefs That Will Affect Care: None marital status: / Current Living Situation: Alone Current Living Situation Comment: january 21, no longer has drivers license - stroke Other Information That Helps Us Care for You: No Feels Safe at Home: Yes Safety Concerns: Feels Safe At This Time Smoking Status: Former smoker Second Hand Exposure: No ; Hx Alcohol Use: No Hx Substance Use: No Review of Systems All systems reviewed & are unremarkable except as noted in HPI & below Physical Exam Vital Signs Vital Signs - 24 hr 07/26/19 21:27 07/26/19 21:39 07/26/19 21:43 Sepsis Recent Fever Within 48 Hours No Sepsis Action Taken by Nursing No Action Required Pulse Rate 120 H 102 H 99 H Pulse Rate [Finger] Pulse Rate from SpO2 Sensor 102 H 99 H Respiratory Rate 26 H 21 24 Respiratory Effort / Characteristics Non-Labored Spontaneous Respiratory Depth Normal Respiratory Pattern Regular Blood Pressure 133/80 164/89 H Blood Pressure [Left Arm] Blood Pressure Mean 97 114 Blood Pressure Mean [Left Arm] Blood Pressure Position Sitting Pulse Oximetry 99 97 97 Oxygen Delivery Method Room Air Oxygen Flow Rate 07/26/19 21:50 07/26/19 21:56 07/26/19 21:57 Sepsis Recent Fever Within 48 Hours Sepsis Action Taken by Nursing Pulse Rate 90 Pulse Rate [Finger] Pulse Rate from SpO2 Sensor 89 Respiratory Rate 22 Respiratory Effort / Characteristics Short of Breath Respiratory Depth Respiratory Pattern Rapid/Shallow Blood Pressure Blood Pressure [Left Arm] Blood Pressure Mean Blood Pressure Mean [Left Arm] Blood Pressure Position Pulse Oximetry 98 Oxygen Delivery Method Nasal Cannula Oxygen Flow Rate 2 07/26/19 22:00 07/26/19 22:02 07/26/19 22:10 Sepsis Recent Fever Within 48 Hours Sepsis Action Taken by Nursing Pulse Rate 101 H 92 H Pulse Rate [Finger] Pulse Rate from SpO2 Sensor 88 83 Respiratory Rate 17 28 H 20 Respiratory Effort / Characteristics Spontaneous Labored Short of Breath Respiratory Depth Respiratory Pattern Blood Pressure 155/97 H Blood Pressure [Left Arm] Blood Pressure Mean 116 Blood Pressure Mean [Left Arm] Blood Pressure Position Pulse Oximetry 97 96 99 Oxygen Delivery Method Nasal Cannula Nasal Cannula Oxygen Flow Rate 2 2 07/26/19 22:20 07/26/19 22:30 07/26/19 22:40 Sepsis Recent Fever Within 48 Hours Sepsis Action Taken by Nursing Pulse Rate 85 88 90 Pulse Rate [Finger] Pulse Rate from SpO2 Sensor 85 87 89 Respiratory Rate 29 H 19 23 Respiratory Effort / Characteristics Respiratory Depth Respiratory Pattern Blood Pressure 156/85 H Blood Pressure [Left Arm] Blood Pressure Mean 108 Blood Pressure Mean [Left Arm] Blood Pressure Position Pulse Oximetry 99 100 99 Oxygen Delivery Method Oxygen Flow Rate 07/26/19 22:51 07/27/19 00:26 Sepsis Recent Fever Within 48 Hours Sepsis Action Taken by Nursing Pulse Rate Pulse Rate [Finger] 91 H 91 H Pulse Rate from SpO2 Sensor Respiratory Rate 22 22 Respiratory Effort / Characteristics Non-Labored Spontaneous Non-Labored Spontaneous Respiratory Depth Normal Normal Respiratory Pattern Blood Pressure Blood Pressure [Left Arm] 156/85 H 147/84 H Blood Pressure Mean Blood Pressure Mean [Left Arm] 108 105 Blood Pressure Position Pulse Oximetry 100 96 Oxygen Delivery Method Nebulizer Room Air Oxygen Flow Rate VITALS: Vitals are noted on the nurse's note and reviewed by myself. Vital signs tachycardic. GENERAL: Elderly female working to breathe and moderate acute distress SKIN: The skin was without rashes, erythema, edema, or bruising. There is no tenting of the skin. Capillary reflex less than 2 seconds. HEAD: Normocephalic atraumatic. EARS: External auditory canals clear, tympanic membranes pearly dominguez without erythema or effusion bilaterally. EYES: Pupils equal round and reactive to light and accommodation. Conjunctivae without injection, sclerae without icterus. Extraocular movements intact. NOSE: Patent, turbinates without inflammation or discharge. No sinus tenderness. MOUTH: Mucous membranes moist. Pharynx without erythema or exudate. Uvula midline. Airway patent. Tongue does not deviate. NECK: Supple without nuchal rigidity. No lymphadenopathy. No thyromegaly. Cervical spine is nontender. No JVD. HEART: Tachycardic rate and rhythm LUNGS: Diffuse inspiratory and end expiratory wheezes, no rales or rhonchi. + retractions + accessory muscle use. ABDOMEN: Positive bowel sounds x 4. Normal tympanic percussion. Soft, nontender, without masses or organomegaly. Gonzalez sign negative. No guarding or rebound tenderness. No CVA tenderness MUSCULOSKELETAL: No muscle atrophy, erythema, or edema noted. NEURO: Patient was alert and oriented to person place and time. Normal sensation to light and sharp touch. No focal neurological deficits. Course Administered Medications Doxycycline Hyclate 100 mg/ (Dextrose) 110 mls @ 50 mls/hr IV NOW STA Stop: 07/27/19 03:05 Last Admin: 07/27/19 01:27 Dose: 50 mls/hr Documented by: [id number] Discontinued Medications Albuterol (Duoneb) 12 ml NEB ONE ONE Stop: 07/26/19 21:55 Last Admin: 07/26/19 21:59 Dose: 12 ml Documented by: [id number] Sodium Chloride (Nss 1000ml) 1,000 mls @ 999 mls/hr IV .Q1H1M ONE Stop: 07/26/19 23:59 Last Infusion: 07/27/19 00:19 Dose: 0 mls/hr Documented by: [id number] Admin: 07/26/19 23:18 Dose: 999 mls/hr Documented by: [id number] Insulin Human Regular (Novolin R U-100 Per Unit) 10 units IV NOW STA Stop: 07/27/19 00:05 Last Admin: 07/27/19 00:24 Dose: 10 units Documented by: [id number] Cosigned by: [id number] Methylprednisolone (Solumedrol) 125 mg IV NOW STA Stop: 07/26/19 21:55 Last Admin: 07/26/19 21:59 Dose: 125 mg Documented by: [id number] Miscellaneous (Patient's Height And/Or Weight Needed) 1 ea N/A Q30M JOHN Stop: 08/26/19 02:29 Last Admin: 07/27/19 02:29 Dose: 1 ea Documented by: [id number] Nitroglycerin (Nitrostat) 0.4 mg SL NOW STA Stop: 07/27/19 00:55 Last Admin: 07/27/19 01:16 Dose: 0.4 mg Documented by: [id number] Medical Decision Making Medical Records Attestation: I reviewed the patient's medical records. Home Medications Current Medication List: was personally reviewed by me Laboratory Data Attestation: I reviewed the patient's lab results. Result diagrams: 07/26/19 21:49 07/27/19 01:17 Lab Results 07/26/19 07/26/19 07/26/19 Range/Units 21:49 21:49 21:49 WBC 12.74 H (4.8-10.8) K/uL RBC 3.95 L (4.2-5.4) M/uL Hgb 12.1 (12.0-16.0) g/dL Hct 35.2 L (37-47) % MCV 89.1 (80-100) fL MCH 30.6 (25-34) pg MCHC 34.4 (32-36) g/dL RDW Std Deviation 46.1 (36.4-46.3) fL RDW Coeff of Stormy 14.0 (11.5-14.5) % Plt Count 224 (130-400) K/uL MPV 9.7 (7.4-10.4) fL Neutrophils % (Manual) 45.6 % Lymphocytes % (Manual) 16.7 % Reactive Lymphs % (Man) 25.4 % Monocytes % (Manual) 4.4 % Eosinophils % (Manual) 6.1 % Basophils % (Manual) 1.8 % Neutrophils # (Manual) 5.81 (1.4-6.5) K/uL Total Absolute Neuts 5.81 (1.4-6.5) K/uL Lymphocytes # (Manual) 2.13 (1.2-3.4) K/uL Reactive Lymphs # 3.24 K/uL Total Abs Lymphocytes 5.36 H (1.2-3.4) K/uL Monocytes # (Manual) 0.56 (0.11-0.59) K/uL Eosinophils # (Manual) 0.78 H (0-0.5) K/uL Basophils # (Manual) 0.23 H (0-0.2) K/uL Ovalocytes 1+ Echinocytes 2+ PT 11.0 (9.0-12.0) Seconds INR 1.1 (0.9-1.1) APTT 39.2 H (21.0-31.0) Seconds PTT Ratio 1.4 ABG pH (7.35-7.45) ABG pCO2 (35-46) mmHg ABG pO2 (80-95) mm/Hg ABG HCO3 (19-24) mmol/L ABG O2 Saturation (90-95) % ABG Base Excess (-9-1.8) mEq/L Harshad Test (Pos) Barometric Pressure mm/Hg Oxygen Given Sodium 135 L (136-145) mmol/L Potassium 4.5 (3.5-5.1) mmol/L Chloride 105 (98-107) mmol/L Carbon Dioxide 17 L (21-32) mmol/L Anion Gap 13.0 H (3-11) BUN 21 H (7-18) mg/dl Creatinine 1.62 H (0.6-1.2) mg/dl Est Cr Clr Drug Dosing Not Reportable Est GFR ( Amer) 34.9 Est GFR (Non-Af Amer) 30.1 BUN/Creatinine Ratio 12.9 (10-20) Glucose 539 H* (70-99) mg/dl POC Glucose (70-99) Calcium 8.8 (8.5-10.1) mg/dl Magnesium 1.7 L (1.8-2.4) mg/dl Total Bilirubin 0.3 (0.2-1) mg/dl AST 22 (15-37) U/L ALT 28 (12-78) U/L Alkaline Phosphatase 138 H (45-117) U/L Troponin I < 0.015 (0-0.045) ng/ml Total Protein 7.0 (6.4-8.2) gm/dl Albumin 3.2 L (3.4-5.0) gm/dl Globulin 3.8 (2.5-4.0) gm/dl Albumin/Globulin Ratio 0.8 L (0.9-2) Beta-Hydroxybutyric Acd 2.68 (0.2-2.81) mg/dl TSH 4.670 H (0.300-4.500) uIu/ml Free T4 1.09 (0.8-1.6) ng/dl Urine Color Urine Appearance (Clear) Urine pH (4.5-7.5) Ur Specific [place] (1.000-1.030) Urine Protein (Negative) Urine Glucose (UA) (Negative) Urine Ketones (Negative) Urine Blood (Negative) Urine Nitrite (Negative) Urine Bilirubin (Negative) Urine Urobilinogen (Negative) Ur Leukocyte Esterase (Negative) 07/26/19 07/26/19 07/27/19 Range/Units 23:15 23:29 00:17 WBC (4.8-10.8) K/uL RBC (4.2-5.4) M/uL Hgb (12.0-16.0) g/dL Hct (37-47) % MCV (80-100) fL MCH (25-34) pg MCHC (32-36) g/dL RDW Std Deviation (36.4-46.3) fL RDW Coeff of Stormy (11.5-14.5) % Plt Count (130-400) K/uL MPV (7.4-10.4) fL Neutrophils % (Manual) % Lymphocytes % (Manual) % Reactive Lymphs % (Man) % Monocytes % (Manual) % Eosinophils % (Manual) % Basophils % (Manual) % Neutrophils # (Manual) (1.4-6.5) K/uL Total Absolute Neuts (1.4-6.5) K/uL Lymphocytes # (Manual) (1.2-3.4) K/uL Reactive Lymphs # K/uL Total Abs Lymphocytes (1.2-3.4) K/uL Monocytes # (Manual) (0.11-0.59) K/uL Eosinophils # (Manual) (0-0.5) K/uL Basophils # (Manual) (0-0.2) K/uL Ovalocytes Echinocytes PT (9.0-12.0) Seconds INR (0.9-1.1) APTT (21.0-31.0) Seconds PTT Ratio ABG pH 7.49 H (7.35-7.45) ABG pCO2 21 L (35-46) mmHg ABG pO2 115 H (80-95) mm/Hg ABG HCO3 16 L (19-24) mmol/L ABG O2 Saturation 98.7 H (90-95) % ABG Base Excess -6.1 (-9-1.8) mEq/L Harshad Test POS (Pos) Barometric Pressure 731.2 mm/Hg Oxygen Given ROOM AIR Sodium (136-145) mmol/L Potassium (3.5-5.1) mmol/L Chloride (98-107) mmol/L Carbon Dioxide (21-32) mmol/L Anion Gap (3-11) BUN (7-18) mg/dl Creatinine (0.6-1.2) mg/dl Est Cr Clr Drug Dosing Est GFR ( Amer) Est GFR (Non-Af Amer) BUN/Creatinine Ratio (10-20) Glucose (70-99) mg/dl POC Glucose 406 H* (70-99) Calcium (8.5-10.1) mg/dl Magnesium (1.8-2.4) mg/dl Total Bilirubin (0.2-1) mg/dl AST (15-37) U/L ALT (12-78) U/L Alkaline Phosphatase (45-117) U/L Troponin I (0-0.045) ng/ml Total Protein (6.4-8.2) gm/dl Albumin (3.4-5.0) gm/dl Globulin (2.5-4.0) gm/dl Albumin/Globulin Ratio (0.9-2) Beta-Hydroxybutyric Acd (0.2-2.81) mg/dl TSH (0.300-4.500) uIu/ml Free T4 (0.8-1.6) ng/dl Urine Color Yellow Urine Appearance Clear (Clear) Urine pH 5.0 (4.5-7.5) Ur Specific [place] 1.024 (1.000-1.030) Urine Protein Negative (Negative) Urine Glucose (UA) 3+ H (Negative) Urine Ketones Negative (Negative) Urine Blood Negative (Negative) Urine Nitrite Negative (Negative) Urine Bilirubin Negative (Negative) Urine Urobilinogen Negative (Negative) Ur Leukocyte Esterase Negative (Negative) 07/27/19 07/27/19 07/27/19 Range/Units 00:18 00:57 00:58 WBC (4.8-10.8) K/uL RBC (4.2-5.4) M/uL Hgb (12.0-16.0) g/dL Hct (37-47) % MCV (80-100) fL MCH (25-34) pg MCHC (32-36) g/dL RDW Std Deviation (36.4-46.3) fL RDW Coeff of Stormy (11.5-14.5) % Plt Count (130-400) K/uL MPV (7.4-10.4) fL Neutrophils % (Manual) % Lymphocytes % (Manual) % Reactive Lymphs % (Man) % Monocytes % (Manual) % Eosinophils % (Manual) % Basophils % (Manual) % Neutrophils # (Manual) (1.4-6.5) K/uL Total Absolute Neuts (1.4-6.5) K/uL Lymphocytes # (Manual) (1.2-3.4) K/uL Reactive Lymphs # K/uL Total Abs Lymphocytes (1.2-3.4) K/uL Monocytes # (Manual) (0.11-0.59) K/uL Eosinophils # (Manual) (0-0.5) K/uL Basophils # (Manual) (0-0.2) K/uL Ovalocytes Echinocytes PT (9.0-12.0) Seconds INR (0.9-1.1) APTT (21.0-31.0) Seconds PTT Ratio ABG pH (7.35-7.45) ABG pCO2 (35-46) mmHg ABG pO2 (80-95) mm/Hg ABG HCO3 (19-24) mmol/L ABG O2 Saturation (90-95) % ABG Base Excess (-9-1.8) mEq/L Harshad Test (Pos) Barometric Pressure mm/Hg Oxygen Given Sodium (136-145) mmol/L Potassium (3.5-5.1) mmol/L Chloride (98-107) mmol/L Carbon Dioxide (21-32) mmol/L Anion Gap (3-11) BUN (7-18) mg/dl Creatinine (0.6-1.2) mg/dl Est Cr Clr Drug Dosing Est GFR ( Amer) Est GFR (Non-Af Amer) BUN/Creatinine Ratio (10-20) Glucose (70-99) mg/dl POC Glucose 451 H* 413 H* 395 H* (70-99) Calcium (8.5-10.1) mg/dl Magnesium (1.8-2.4) mg/dl Total Bilirubin (0.2-1) mg/dl AST (15-37) U/L ALT (12-78) U/L Alkaline Phosphatase (45-117) U/L Troponin I (0-0.045) ng/ml Total Protein (6.4-8.2) gm/dl Albumin (3.4-5.0) gm/dl Globulin (2.5-4.0) gm/dl Albumin/Globulin Ratio (0.9-2) Beta-Hydroxybutyric Acd (0.2-2.81) mg/dl TSH (0.300-4.500) uIu/ml Free T4 (0.8-1.6) ng/dl Urine Color Urine Appearance (Clear) Urine pH (4.5-7.5) Ur Specific [place] (1.000-1.030) Urine Protein (Negative) Urine Glucose (UA) (Negative) Urine Ketones (Negative) Urine Blood (Negative) Urine Nitrite (Negative) Urine Bilirubin (Negative) Urine Urobilinogen (Negative) Ur Leukocyte Esterase (Negative) Imaging Data Attestation: I personally reviewed and interpreted this imaging study as follows: Blood Pressure Blood Pressure Findings: Elevated blood pressure Blood Pressure Disposition: Referred to patients primary care provider [facility] Narrative Prior records/ancillary studies reviewed. Triage Nursing notes reviewed. Additional history obtained from the family. The patient's history was concerning for respiratory difficulties. Differential diagnosis: Etiologies such as infections, reactive airway disease, pneumonia, pneumothorax, COPD, CHF, cardiac ischemia, pulmonary embolism, musculoskeletal, gastrointestinal, as well as others were entertained. Physical examination: As above. ER treatment provided: Nebulizer, Solu-Medrol, IV fluids, insulin On reassessment the patient felt better. Diagnostic interpretation by me: The electrocardiogram was ordered for dyspnea EKG: Normal sinus, left bundle branch block, no acute ST-T changes, rate of 87. Impression left bundle branch block interpreted by myself I think arrhythmia is unlikely. EKG shows normal sinus rhythm with no interval abnormalities such as QT prolongation or WPW. There are no findings to suggest Brugada syndrome. Cardiac monitoring in the emergency department reveals no tachycardic or bradycardic dysrhythmia. Hypertrophic cardiomyopathy was considered but there are no clear historical elements pointing toward this. EKG is not suggestive. The QRS voltage is not extremely large and there are no suggestive Q waves. The labs revealed leukocytosis. Stable H&H ABG reviewed. Hyperglycemia. Imaging studies: XR chest 1V portable HISTORY: 78 years-old Female sob acute shortness of breath COMPARISON: Chest radiograph 07/11/2019 TECHNIQUE: Portable AP view of the chest FINDINGS: Cardiac silhouette is enlarged, unchanged. Calcified plaque of the thoracic aortic arch. Stable positioning of the right IJ central venous catheter. No pneumothorax, pleural effusion or overt pulmonary edema. Degenerative changes of the shoulders and spine. IMPRESSION: No acute process. The above report was generated using voice recognition software. It may contain grammatical, syntax or spelling errors. Electronically signed by: Rob Juarez M.D. Consultation: A consultation was placed with Dr. Jeb mckeon. The case was discussed and diagnostics were reviewed. The patient was evaluated in the ER for further treatment. This appears to be consistent with COPD exacerbation and diabetes with hyperglycemia. Patient was hydrated as above and given insulin. Blood sugar did improve. Patient was still quite short of breath. Medicine was consulted. She is agreeable treatment plan of admission. By the evaluation outlined above emergent etiologies such as CHF, cardiac ischemia, pulmonary embolism, pneumonia, pneumothorax, musculoskeletal, serious bacterial infections, as well as others were deemed relatively unlikely. The pt informed about the findings as listed above. All questions were answered and pleased with treatment plan. Case reviewed with my attending The chart was completed utilizing [employer] Speech voice recognition software. Grammatical errors, random word insertions, pronoun errors, and incomplete sentences are an occassional consequence of this system due to software limitations, ambient noise, and hardware issues. Any formal questions or concerns about the content, text, or information contained within the body of this dictation should be directly addressed to the physician assistant grocery store manager for clarification. Impression & Plan Acute exacerbation of chronic obstructive pulmonary disease (COPD), Diabetes mellitus with hyperglycemia Discharge Plan Visit Data *Final* Discharge Date/Time: 07/27/19 01:40 Chief Complaint: Shortness of Breath/Dyspnea Stated Complaint: SOB ED Provider: Casper Roth ED Midlevel Provider: Janet Sanchez Discharge Problem: Acute exacerbation of chronic obstructive pulmonary disease (COPD), Diabetes mellitus with hyperglycemia Patient Disposition: Admitted As Inpatient Condition: Fair Discharge Instructions Interventions: ED Discharge Assessment Last Done: 07/27/19 01:40
[2019-07-26 22:53] LABS: Alanine Aminotransferase 28 U/L (12-78); Albumin Level 3.2 gm/dl (3.4-5.0); Aspartate Aminotransferase 22 U/L (15-37); BUN Creatinine Ratio 12.9 (10-20); Blood Urea Nitrogen 21 mg/dl (7-18); Calcium 8.8 mg/dl (8.5-10.1); Carbon Dioxide 17 mmol/L (21-32); Chloride 105 mmol/L (98-107); Est GFR (African American) 34.9; Est GFR (Non-African American) 30.1; Glucose 539 mg/dl (70-99); Magnesium 1.7 mg/dl (1.8-2.4); Potassium 4.5 mmol/L (3.5-5.1); Sodium 135 mmol/L (136-145)
[2019-07-26] MEDS ORDERED: SODIUM CHLORIDE 0.9% 1000ML 1,000 ML IV ONE (22:59)
[2019-07-26 23:02] LABS: Albumin Globulin Ratio 0.8 (0.9-2); Alkaline Phosphatase 138 U/L (45-117); Bilirubin,Total 0.3 mg/dl (0.2-1); Globulin 3.8 gm/dl (2.5-4.0)
[2019-07-26 23:05] LABS: Beta-Hydroxybutyrate 2.68 mg/dl (0.2-2.81); Troponin I < 0.015 ng/ml (0-0.045)
[2019-07-26 23:26] LABS: Appearance Urine Clear (Clear); Bilirubin Urine Negative (Negative); Blood Urine Negative (Negative); Color Urine Yellow; Glucose Urine UA 3+ (Negative); Ketones Urine Negative (Negative); Leukocyte Esterase Urine Negative (Negative); Nitrite Urine Negative (Negative); Protein Urine Negative (Negative); Specific Gravity Urine 1.024 (1.000-1.030); Urobilinogen Urine Negative (Negative)
[2019-07-26 23:51] LABS: Allen Test POS (Pos); Base Excess ABG -6.1 mEq/L (-9-1.8); HCO3 ABG 16 mmol/L (19-24); Oxygen Saturation ABG 98.7 % (90-95); PCO2 ABG 21 mmHg (35-46); PO2 ABG 115 mm/Hg (80-95); pH ABG 7.49 (7.35-7.45)
[2019-07-27] MEDS ORDERED: NovoLIN-R INSULIN PER UNIT CHARGE IV STA (00:04)
[2019-07-27] MEDS ORDERED: DOXYCYCLINE HYCLATE 100 MG in DEXTROSE 5% 100 ML IV STA (00:54)
[2019-07-27] MEDS ORDERED: NITROGLYCERIN SL 0.4 MG/TAB TAB SL STA (00:54)
--- NOTE | 2019-07-27 01:01 | History & Physical Report ---
Date of Service July 27, 2019 Assessment & Plan (1) COPD exacerbation: Secondary to complicated bronchitis Possible sepsis Chest pain relieved by nitro Possible unstable angina hx CAD sp stenting Chronic LBBB Hypertension elevated secondary discomfort hx CVA as per records Hyperglycemic crisis secondary to illness DM2 insulin requiring, suboptimal control as of recent hemoglobin A1c of 9 last April 2019 ARF on CRI secondary to illness Chronic anemia, hemoglobin better than baseline likely similar to hemoconcentration anxiety/mood disorder, at baseline as per patient hx recurrent pancreatitis, no current issues PCU Cultures, check lactic acid Doxycycline, nebs, Solu-Medrol Pulmonary consult RE COPD exacerbation Follow troponin, Cardiology consult chest pain relieved by nitroglycerin; continue home nitrate Rx Pharmacy glycemic control consult Monitor creatinine response to IV fluids, hold ARB until creatinine to baseline DVT prophylaxis. Heparin subcu Full code History of Present Illness Chief Complaint: Chest pain, shortness of breath Primary Care Provider: Colleen Jefferson DO History obtained from patient and records. Medical history significant for COPD, CAD status post stent, chronic LBBB, hx CVA as per records, hypertension, hyperlipidemia, DM2 insulin requiring, anxiety/mood disorder, recurrent pancreatitis/hx pancreatic divisum/IPMN as per records, CRI (baseline creatinine 1.2-1.4), chronic anemia (baseline hemoglobin 10-11), past tobacco abuse. Recent confinement 2 weeks ago for stroke like symptoms. Acute CVA ruled out. Patient evaluated by Cardiology during confinement for chest discomfort. Possible angina as per consultation note. Patient seen on follow-up by PCP last week. Coughing and wheezing complaints. Patient prescribed doxycycline Rx with some improvement of symptoms. Yesterday, patient noted worsening cough, shortness of breath symptoms. No aspiration. Poor appetite. Pleuritic substernal pain improved with nitroglycerin. At the ER, IV Solu-Medrol given for COPD exacerbation. 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 Allergies Allergy/AdvReac Type Severity Reaction Status Date / Time Gadolinium-Containing Allergy Severe NAUSEA,VOMITING, Verified 07/26/19 23:37 Contrast Medi SWELLING/EDEMA AROUND EYES, WHEEZING Iodinated Contrast- Oral and Allergy Severe RASH TO Verified 07/26/19 23:37 IV Dye IVP DYE,NAUSEA, FAINTING, COUGHING, GAGGING, HEADACH Sulfa (Sulfonamide Allergy Severe HIVES, Verified 07/26/19 23:37 Antibiotics) FACIAL AND ARM SWELLING cerivastatin Allergy Intermediate HIVES Verified 07/26/19 23:37 codeine Allergy Intermediate "PRICKLY Verified 07/26/19 23:37 RASH" hydroxyzine Allergy Intermediate N/V Verified 07/26/19 23:37 latex Allergy Intermediate DERMATITIS-PT Verified 07/26/19 23:37 TOLERATED A LATEX CATHETER 03/26/08 Bactrim Allergy Mild RASH Verified 04/29/18 14:40 diphenhydramine Allergy Mild RASH; Verified 07/26/19 23:37 SLEEPINESS WITH "PHARBEDRYL" loratadine Allergy Mild HIVES Verified 07/26/19 23:37 sulfamethoxazole Allergy Mild RASH Verified 07/19/19 15:37 trimethoprim Allergy Mild RASH Verified 07/19/19 15:37 prednisone Allergy Unknown elevates Verified 07/19/19 15:37 blood sugar tetanus toxoid, adsorbed AdvReac Intermediate SWELLING Verified 07/19/19 15:37 AT INJECTION SITE alprazolam AdvReac Unknown "SLEEPY Verified 07/19/19 15:37 STUPER" metformin AdvReac Unknown DIARRHEA Verified 07/19/19 15:37 morphine AdvReac Unknown VOMITING Verified 07/19/19 15:37 simvastatin AdvReac Unknown COUGH, Verified 07/19/19 15:37 "DISCOMFORT" gadobutrol [From Gadavist] AdvReac Anaphylaxis Unverified 07/19/19 15:37 Home Medications Home Medications Medication Instructions Recorded Confirmed Type amlodipine [Norvasc] 10 mg PO QAM 08/24/18 07/26/19 History aspirin 1 tab PO QPM 08/24/18 07/26/19 History dicyclomine 10 mg PO TID PRN 08/24/18 07/26/19 History fluticasone propionate [Flonase 2 spray INTRANASAL QPM PRN 08/24/18 07/26/19 History Allergy Relief] lorazepam [Ativan] 0.5 mg PO Q6 PRN 08/24/18 07/26/19 History ondansetron HCl [Zofran] 4 mg PO QID PRN 08/24/18 07/26/19 History trazodone 50 mg PO HS 08/24/18 07/26/19 History albuterol sulfate 2.5 mg INHALATION QID PRN 01/26/19 07/26/19 History levocetirizine [Xyzal] 2.5 mg PO QPM 01/26/19 07/26/19 History losartan 100 mg PO QAM 01/26/19 07/26/19 History mirtazapine 45 mg PO HS 01/26/19 07/26/19 History ropinirole 1 mg PO HS 01/26/19 07/26/19 History atorvastatin 40 mg PO QAM #30 tab 01/28/19 07/26/19 Rx clopidogrel 75 mg PO QAM #30 tab 01/28/19 07/26/19 Rx isosorbide mononitrate 30 mg PO QAM #30 tab 01/28/19 07/26/19 Rx nitroglycerin [Nitrostat] 0.4 mg SUBLINGUAL PRN PRN #30 tab 01/28/19 07/26/19 Rx Novolin 70/30 U-100 Insulin 35 unit SUBCUT QPM 05/04/19 07/26/19 History Novolin 70/30 U-100 Insulin 55 unit SUBCUT QAM 05/04/19 07/26/19 History albuterol sulfate [Proventil HFA] 2 puff INHALATION Q4 PRN 05/04/19 07/26/19 History gabapentin 800 mg PO HS 07/11/19 07/26/19 History magnesium oxide 400 mg PO QPM 07/11/19 07/26/19 History metoprolol tartrate 25 mg PO BID 07/11/19 07/26/19 History pantoprazole 40 mg PO QPM 07/11/19 07/26/19 History Past Med/Surg History Medical History Osteoarthritis (Chronic) Seasonal allergies (Chronic) Aortic stenosis (Chronic) moderate Pancreatitis Acute CVA (cerebrovascular accident) 01/2019 X 2-NUMBNESS RIGHT ARM/"MEMORY LOSS SLOWLY COMING BACK" Elevated troponin Weakness Pre-syncope Leukocytosis Pneumonia Valvular heart disease Non-STEMI (non-ST elevated myocardial infarction) 01/2019 Left bundle branch block Giant cell arteritis (Resolved) Gastroparesis (Chronic) Dyslipidemia (Chronic) Depression (Chronic) HTN (hypertension) (Chronic) Insomnia (Chronic) RLS (restless legs syndrome) (Chronic) Peripheral neuropathy (Chronic) Pancreatic cyst (Chronic) Anxiety (Chronic) COPD (chronic obstructive pulmonary disease) (Chronic) Diabetes mellitus, type II (Chronic) poorly controlled Sleep apnea (Chronic) PT DENIES/NO DEVICE Chronic pancreatitis (Chronic) Cerebrovascular disease (Chronic) "history stroke and TIA" L sided weakness. Fatty liver (Chronic) Esophageal dysmotility (Chronic) Pancreatic divisum (Chronic) CKD (chronic kidney disease), stage III (Chronic) F/U PCP GERD (gastroesophageal reflux disease) Surgical History History of ERCP (Resolved) x3 with stents. ERCP 04/30/18. MAC 3, grade 2 view. 7.0 ETT placed. No issues. History of bilateral tubal ligation (Resolved) S/P cardiac catheterization (Resolved) 01/2019 [facility] X 2-TOTAL 2 STENTS 04/2019 non obstructive disease History of cataract surgery (Chronic) both eyes Family History Daughter No problems noted. 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: No Beliefs That Will Affect Care: None marital status: / Current Living Situation: Alone Current Living Situation Comment: january 21, no longer has drivers license - stroke Other Information That Helps Us Care for You: No Feels Safe at Home: Yes Safety Concerns: Feels Safe At This Time Smoking Status: Former smoker Second Hand Exposure: No ; Hx Alcohol Use: No Hx Substance Use: No Review of Systems Review of Systems: As per HPI, all 10 systems reviewed, all other ROS negative Physical Exam Physical Exam: GENERAL: uncomfortable, respiratory distress, abdominal breathing, incessant coughing, obese, dysphonic SKIN: Pallor, warm HEENT: Bespectacled, pale palpebral conjunctivae, no ptosis, dry buccal mucosa NECK : Supple, short neck, no tenderness CHEST : Decreased breath sounds, expiratory wheezes, no tenderness HEART : RRR, systolic murmur ABDOMEN: distention, nontender EXTREMITIES : Minimal LE swelling, no LE tenderness, no other conspicuous deformities noted NEUROLOGIC : Coherent, no facial asymmetry, no other gross focality Results & Data Vital Signs (Past 12 Hours) Vital Signs Pulse Pulse Resp BP BP Pulse Ox 07/27/19 00:26 91 H 22 147/84 H 96 07/26/19 22:51 91 H 22 156/85 H 100 07/26/19 22:40 90 23 99 07/26/19 22:30 88 19 156/85 H 100 07/26/19 22:20 85 29 H 99 07/26/19 22:10 92 H 20 99 07/26/19 22:02 28 H 96 07/26/19 22:00 101 H 17 155/97 H 97 07/26/19 21:50 90 22 98 07/26/19 21:43 99 H 24 97 07/26/19 21:39 102 H 21 164/89 H 97 07/26/19 21:27 120 H 26 H 133/80 99 Laboratory Results Laboratory Results WBC 12.74 K/uL (4.8-10.8) H 07/26/19 21:49 RBC 3.95 M/uL (4.2-5.4) L 07/26/19 21:49 Hgb 12.1 g/dL (12.0-16.0) 07/26/19 21:49 Hct 35.2 % (37-47) L 07/26/19 21:49 MCV 89.1 fL (80-100) 07/26/19 21:49 MCH 30.6 pg (25-34) 07/26/19 21:49 MCHC 34.4 g/dL (32-36) 07/26/19 21:49 RDW Std Deviation 46.1 fL (36.4-46.3) 07/26/19 21:49 RDW Coeff of Stormy 14.0 % (11.5-14.5) 07/26/19 21:49 Plt Count 224 K/uL (130-400) 07/26/19 21:49 MPV 9.7 fL (7.4-10.4) 07/26/19 21:49 Neutrophils % (Manual) 45.6 % 07/26/19 21:49 Lymphocytes % (Manual) 16.7 % 07/26/19 21:49 Reactive Lymphs % (Man) 25.4 % 07/26/19 21:49 Monocytes % (Manual) 4.4 % 07/26/19 21:49 Eosinophils % (Manual) 6.1 % 07/26/19 21:49 Basophils % (Manual) 1.8 % 07/26/19 21:49 Neutrophils # (Manual) 5.81 K/uL (1.4-6.5) 07/26/19 21:49 Total Absolute Neuts 5.81 K/uL (1.4-6.5) 07/26/19 21:49 Lymphocytes # (Manual) 2.13 K/uL (1.2-3.4) 07/26/19 21:49 Reactive Lymphs # 3.24 K/uL 07/26/19 21:49 Total Abs Lymphocytes 5.36 K/uL (1.2-3.4) H 07/26/19 21:49 Monocytes # (Manual) 0.56 K/uL (0.11-0.59) 07/26/19 21:49 Eosinophils # (Manual) 0.78 K/uL (0-0.5) H 07/26/19 21:49 Basophils # (Manual) 0.23 K/uL (0-0.2) H 07/26/19 21:49 Ovalocytes 1+ 07/26/19 21:49 Echinocytes 2+ 07/26/19 21:49 PT 11.0 Seconds (9.0-12.0) 07/26/19 21:49 INR 1.1 (0.9-1.1) 07/26/19 21:49 APTT 39.2 Seconds (21.0-31.0) H 07/26/19 21:49 PTT Ratio 1.4 07/26/19 21:49 ABG pH 7.49 (7.35-7.45) H 07/26/19 23:29 ABG pCO2 21 mmHg (35-46) L 07/26/19 23:29 ABG pO2 115 mm/Hg (80-95) H 07/26/19 23:29 ABG HCO3 16 mmol/L (19-24) L 07/26/19 23:29 ABG O2 Saturation 98.7 % (90-95) H 07/26/19 23:29 ABG Base Excess -6.1 mEq/L (-9-1.8) 07/26/19 23:29 Harshad Test POS (Pos) 07/26/19 23:29 Barometric Pressure 731.2 mm/Hg 07/26/19 23:29 Oxygen Given ROOM AIR 07/26/19 23:29 Sodium 135 mmol/L (136-145) L 07/26/19 21:49 Potassium 4.5 mmol/L (3.5-5.1) 07/26/19 21:49 Chloride 105 mmol/L (98-107) 07/26/19 21:49 Carbon Dioxide 17 mmol/L (21-32) L 07/26/19 21:49 Anion Gap 13.0 (3-11) H 07/26/19 21:49 BUN 21 mg/dl (7-18) H 07/26/19 21:49 Creatinine 1.62 mg/dl (0.6-1.2) H 07/26/19 21:49 Est Cr Clr Drug Dosing Not Reportable 07/26/19 21:49 Est GFR ( Amer) 34.9 07/26/19 21:49 Est GFR (Non-Af Amer) 30.1 07/26/19 21:49 BUN/Creatinine Ratio 12.9 (10-20) 07/26/19 21:49 Glucose 539 mg/dl (70-99) H* 07/26/19 21:49 POC Glucose 451 (70-99) H* 07/27/19 00:18 Calcium 8.8 mg/dl (8.5-10.1) 07/26/19 21:49 Magnesium 1.7 mg/dl (1.8-2.4) L 07/26/19 21:49 Total Bilirubin 0.3 mg/dl (0.2-1) 07/26/19 21:49 AST 22 U/L (15-37) 07/26/19 21:49 ALT 28 U/L (12-78) 07/26/19 21:49 Alkaline Phosphatase 138 U/L (45-117) H 07/26/19 21:49 Troponin I < 0.015 ng/ml (0-0.045) 07/26/19 21:49 Total Protein 7.0 gm/dl (6.4-8.2) 07/26/19 21:49 Albumin 3.2 gm/dl (3.4-5.0) L 07/26/19 21:49 Globulin 3.8 gm/dl (2.5-4.0) 07/26/19 21:49 Albumin/Globulin Ratio 0.8 (0.9-2) L 07/26/19 21:49 Beta-Hydroxybutyric Acd 2.68 mg/dl (0.2-2.81) 07/26/19 21:49 TSH 4.670 uIu/ml (0.300-4.500) H 07/26/19 21:49 Urine Color Yellow 07/26/19 23:15 Urine Appearance Clear (Clear) 07/26/19 23:15 Urine pH 5.0 (4.5-7.5) 07/26/19 23:15 Ur Specific [place] 1.024 (1.000-1.030) 07/26/19 23:15 Urine Protein Negative (Negative) 07/26/19 23:15 Urine Glucose (UA) 3+ (Negative) H 07/26/19 23:15 Urine Ketones Negative (Negative) 07/26/19 23:15 Urine Blood Negative (Negative) 07/26/19 23:15 Urine Nitrite Negative (Negative) 07/26/19 23:15 Urine Bilirubin Negative (Negative) 07/26/19 23:15 Urine Urobilinogen Negative (Negative) 07/26/19 23:15 Ur Leukocyte Esterase Negative (Negative) 07/26/19 23:15 Diagnostic Findings Chest x-ray: No acute process EKG as per my interpretation : Rate 90, NSR, LAD, LAFB, left bundle branch block
[2019-07-27 01:07] LABS: T4 Free Thyroxine 1.09 ng/dl (0.8-1.6)
--- NOTE | 2019-07-27 01:30 | Emergency Department Note ---
ED Visit Note The patient was seen and examined with Daniel. I agree with the history, physical and findings. Please see the note for disposition and details. .
[2019-07-27 02:05] LABS: Blood Urea Nitrogen 20 mg/dl (7-18); Calcium 8.2 mg/dl (8.5-10.1); Carbon Dioxide 17 mmol/L (21-32); Chloride 110 mmol/L (98-107); Est GFR (African American) 36.5; Est GFR (Non-African American) 31.5; Glucose 383 mg/dl (70-99); Potassium 3.8 mmol/L (3.5-5.1); Sodium 139 mmol/L (136-145); Troponin I < 0.015 ng/ml (0-0.045)
[2019-07-27] MEDS ORDERED: PHARMACY GLYCEMIC MGMT CONSULT PRN (02:07)
[2019-07-27] MEDS ORDERED: LACTATED RINGER'S 1,000 ML IV ONE (02:21)
[2019-07-27 02:26] LABS: Beta-Hydroxybutyrate 3.59 mg/dl (0.2-2.81)
[2019-07-27] MEDS ORDERED: NITROGLYCERIN SL 0.4 MG/TAB TAB SL PRN (02:27)
[2019-07-27] MEDS ORDERED: HYDROmorphone INJ 0.5 MG/0.5 ML SYR IV PRN (02:27)
[2019-07-27] MEDS ORDERED: PROMETHAZINE HCL 12.5 MG in SODIUM CHLORIDE 0.9% 50 ML IV PRN (02:27)
[2019-07-27] MEDS ORDERED: MAGNESIUM SULFATE / D5W 1 GM/100 ML BAG IV ONE (02:27)
[2019-07-27] MEDS ORDERED: OXYCODONE HCL IR 5 MG TAB (IMMEDIATE RELEASE) PO PRN (02:27)
[2019-07-27] MEDS ORDERED: DICYCLOMINE HCL 10 MG CAP PO PRN (02:27)
[2019-07-27] MEDS ORDERED: PATIENT'S HEIGHT AND/OR WEIGHT NEEDED SCH (02:30)
[2019-07-27] MEDS ORDERED: GLUCOSE 40% GEL 15 GM TUBE PO PRN (02:45)
[2019-07-27] MEDS ORDERED: DEXTROSE 50% 50 ML SYRINGE IV PRN (02:45)
[2019-07-27] MEDS ORDERED: GLUCAGON FOR INJ 1 MG VIAL IM PRN (02:45)
[2019-07-27] MEDS ORDERED: GLUCOSE 10 TABS/TUBE PO PRN (02:45)
[2019-07-27] MEDS ORDERED: INSULIN HUMAN NPH SC SCH ×3 (03:00→21:00)
[2019-07-27] MEDS ORDERED: INSULIN HUMAN REGULAR IV BOLUS 2 UNITS in SYRINGE 0 ML IV ONE (03:00)
[2019-07-27] MEDS: METOPROLOL TARTRATE 25 MG TAB PO SCH ×3 (03:14→20:39)
[2019-07-27] MEDS: INSULIN REGULAR 250 UNITS in SODIUM CHLORIDE 0.9% 247.5 ML IV SCH (03:17)
[2019-07-27] MEDS ORDERED: POTASSIUM CHLORIDE 20 MEQ TABCR PO STA (04:06)
[2019-07-27] MEDS: LORazepam 0.5 MG TAB PO PRN (04:38)
[2019-07-27] MEDS: ACETAMINOPHEN 325 MG TAB PO PRN (04:38)
[2019-07-27] MEDS: HEPARIN SOD 5,000 UNIT/0.5 ML VIAL SQ SCH ×3 (05:49→20:40)
[2019-07-27 06:13] LABS: Estimated Average Glucose 252 mg/dl; Hemoglobin A1C 10.4 % (4.5-5.6)
[2019-07-27 06:34] LABS: Basophils # (auto) 0.03 K/uL (0-0.2); Basophils % (auto) 0.4 %; Eosinophils # (auto) 0.01 K/uL (0-0.5); Eosinophils % (auto) 0.1 %; Hematocrit (blood only) 29.6 % (37-47); Hemoglobin 10.3 g/dL (12.0-16.0); Immature Granulocytes # (auto) 0.02 K/uL (0.00-0.02); Immature Granulocytes % (auto) 0.2 %; Lymphocytes # (auto) 1.49 K/uL (1.2-3.4); Lymphocytes % (auto) 18.3 %; Mean Corpuscular Hgb Conc 34.8 g/dL (32-36); Mean Corpuscular Volume 86.8 fL (80-100); Mean Platelet Volume 9.5 fL (7.4-10.4); Monocytes # (auto) 0.02 K/uL (0.11-0.59); Monocytes % (auto) 0.2 %; Neutrophils # (auto) 6.59 K/uL (1.4-6.5); Neutrophils % (auto) 80.8 %; Platelet Count 182 K/uL (130-400); RDW Coefficient of Variation 13.9 % (11.5-14.5); RDW Standard Deviation 43.9 fL (36.4-46.3); Red Blood Count 3.41 M/uL (4.2-5.4); White Blood Count 8.16 K/uL (4.8-10.8)
[2019-07-27] MEDS ORDERED: XOPENEX/ATROVENT 1.25mg/0.5MG NEB COMBO NEB SCH (07:00)
[2019-07-27] MEDS ORDERED: LEVALBUTEROL 1.25MG/0.5ML NEB INH SCH (07:00)
[2019-07-27] MEDS: IPRATROPIUM BROMIDE NEB SOLN 0.02% 2.5 ML VIAL INH SCH ×5 (07:09→23:46)
[2019-07-27 07:18] LABS: BUN Creatinine Ratio 13.3 (10-20); Calcium 8.2 mg/dl (8.5-10.1); Creatinine Clr Calc Pharmacy 29.2 ml/min; Est GFR (African American) 41.3; Est GFR (Non-African American) 35.6; Potassium 4.7 mmol/L (3.5-5.1); Troponin I 0.143 ng/ml (0-0.045)
[2019-07-27] MEDS: guaiFENesin SUGAR FREE 200 MG/10 ML UDC PO PRN ×2 (07:31→21:42)
[2019-07-27] MEDS: XYZAL~ORDER AWAITING ACTION SCH ×2 (07:32→13:08)
[2019-07-27] MEDS: LACTATED RINGER'S 1,000 ML IV SCH ×3 (07:32→17:25)
[2019-07-27 07:42] LABS: Beta-Hydroxybutyrate 2.54 mg/dl (0.2-2.81)
[2019-07-27] MEDS: methylPREDNISolone 40 MG in SYRINGE 0 ML IV SCH (07:54)
[2019-07-27] MEDS: AMLODIPINE BESYLATE 5 MG TAB PO SCH (07:54)
[2019-07-27] MEDS: ISOSORBIDE MONO EXTENDED REL 30 MG TABCR PO SCH (07:55)
[2019-07-27] MEDS: CLOPIDOGREL BISULFATE 75 MG TAB PO SCH (07:55)
[2019-07-27] MEDS: ATORVASTATIN 40 MG TAB PO SCH (07:56)
[2019-07-27] MEDS: DOXYCYCLINE HYCLATE 100 MG CAP PO SCH ×2 (07:56→20:38)
[2019-07-27] MEDS: INSULIN ASPART 100 UNITS/ML 3 ML PEN SC SCH ×4 (08:00→20:42)
--- NOTE | 2019-07-27 08:38 | CT Scan Report ---
CT SCAN OF THE ABDOMEN AND PELVIS WITHOUT CONTRAST CLINICAL HISTORY: chest/abd pain COMPARISON STUDY: 04/13/2018 TECHNIQUE: CT scan of the abdomen and pelvis was performed from the lung bases to the proximal femurs . Images are reviewed in the axial, sagittal, and coronal planes. IV contrast was not administered fo r this examination. A dose lowering technique was utilized adhering to the principles of ALARA. CT DOSE: FINDINGS: Lower chest: There are mild basilar atelectatic changes. Liver: There is hepatic steatosis. There is scattered granulomatous calcifications. No focal masses a re visualized on this noncontrast study. Gallbladder: Surgically absent Spleen: Normal in size and attenuation. Pancreas: There are scattered pancreatic calcifications suggestive of chronic pancreatitis. There is no evidence for acute peripancreatic inflammatory change. There is mild dilatation of the pancreatic duct within the head and proximal body Adrenal glands: Unremarkable. Kidneys: There is a punctate nonobstructing left renal calculus. No ureteral or bladder calculi are v isualized. There is no hydronephrosis. Bowel: There are no transition zones to indicate bowel obstruction. There is no evidence of acute reji endicitis. There is no evidence of acute diverticulitis. Peritoneum: There is no intraperitoneal free air or abdominal ascites. Vasculature: There is no evidence for abdominal aortic aneurysm. There are moderate atheromatous calc ifications present. Adenopathy: There are prominent lymph nodes in the region of the valeria hepatis, likely reactive. Pelvic viscera: There is mild bladder distention. No ureteral or adnexal abnormalities are visualized Skeletal structures: No destructive osseous lesions are seen. IMPRESSION: 1. No evidence of bowel obstruction. No evidence of free air 2. Tiny nonobstructing left renal calculus 3. Hepatic steatosis 4. No evidence of acute diverticulitis. No evidence of acute appendicitis 5. Evidence of chronic pancreatitis 6. Mildly enlarged valeria hepatis lymph nodes, statistically reactive Electronically signed by: Dipak Velasquez M.D. 07/27/2019 8:36 AM
--- NOTE | 2019-07-27 08:49 | CT Scan Report ---
CT chest wo con CT DOSE: 816.91 mGy.cm HISTORY: cough ro pneumonia TECHNIQUE: Multiaxial CT images of the chest were performed without contrast. A dose lowering techni que was utilized adhering to the principles of ALARA. COMPARISON: Chest CT 11/24/2015. FINDINGS: The central airways are patent. No pleural effusions. No pneumothorax. Punctate calcified g ranuloma within the left lower lobe. Mild peripheral/subpleural reticulation suggests chronic interst itial change. This is most pronounced at the lung bases. Small focus of groundglass densities within the right upper lobe anteriorly which have a tree-in-bud pattern. This is best seen on image 109 and favors a mild infectious bronchiolitis. Otherwise, no focal lung consolidations identified. No suspic ious lytic or blastic osseous lesions. Hepatic steatosis. Multiple calcified granulomas within the li judy and spleen. Cholecystectomy. A single borderline enlarged right axillary lymph node remains stabl e. Therefore, this is likely benign. A few prominent mediastinal lymph nodes remains stable. The benjamín nant subcarinal lymph node has slightly increased in size. This measures 1.5 cm in short axis diamete r, previously measuring 1.2 cm. No hilar lymphadenopathy. Normal esophagus. Dense mitral annulus calc ifications. Right jugular Port-A-Cath terminates in the distal SVC. The heart is borderline enlarged. Normal caliber thoracic aorta. No pericardial effusions. IMPRESSION: 1. Mild peripheral/subpleural reticulation suggests chronic interstitial change. 2. Small focus of groundglass tree-in-bud nodular opacities within the right upper lobe anteriorly. T his favors a mild infectious bronchiolitis. Otherwise, no focal lung consolidations identified. 3. The majority of the prominent mediastinal lymph nodes are stable. Slight increase in size in the d ominant subcarinal lymph node. 4. Hepatic steatosis. Electronically signed by: Rogerio Parker M.D. 07/27/2019 8:48 AM
[2019-07-27] MEDS: BENZONATATE 100 MG CAPSULE PO PRN ×2 (08:53→20:36)
--- NOTE | 2019-07-27 09:03 | Cardiology Consultation ---
Date of Consultation July 27, 2019 Assessment & Plan (1) Acute hypoxemic respiratory failure: Diffuse wheezing, ongoing cough Continue oxygen, steroids, antibiotics, nebs Recommend pulm evaluation (2) Chest pain, unspecified: Chest pain with cough, atypical for cardiac etiology Episode yesterday resolved with nitro. Likey demand ischemia from hypoxia/resiratory distress Not indicative of ACS Chronic LBBB, unchanged Continue home medications. Once respiratory status improves, if she continues to have intermittent chest pain, consider increasing isosorbide. Recent cath in April 2019 in setting of chest pain with COPD exacerbation and mi nimally elevated troponin revealed patent left circ and RCA stents with mod non obstructive disease. (3) CAD (coronary artery disease): Continue ASA, plavix, atorvastatin, nitrates, beta aaliyah (4) Elevated troponin I level: Not indicative of ACS. (5) LBBB (left bundle branch block): Supervising Physician Co-Signing Physician Notes Patient seen and examined with Arelis Larson PA-C. Agree with findings and assessment as above. Reports pain is subcostal and tender to palpation. Chest pain is reproducible. recent cath. no further cardiac w/u indicated at this time. will sign off, call with questions or concerns. General: Awake, alert and oriented x 3. No acute distress. HEENT: Normocephalic, atraumatic. Pupils equal, round and reactive to light and accommodation. Extraocular muscles are intact. Anicteric sclera. Moist mucous membranes. Neck: No JVD. No bruit. Cardiovascular: Regular. Positive S-4. Normal S-1 and S-2. No S-3. No murmurs or rubs. Pulmonary: Clear to auscultation B/L. No rales, rhonchi or wheezing Abdomen: Bowel sounds x 4, soft. No rebound, guarding or tenderness. No organomegaly. Extremities: No clubbing, cyanosis or edema. +2 pedal pulses bilaterally. Skin: Warm and dry. History of Present Illness Reason for Consultation: chest pain; CAD Requesting Physician: Dr. Russ Attending Physician: Dr. Su History of Present Illness Ms. Kaplan is a 78 year old female who Was admitted to [facility] with complaints of shortness of breath, cough, wheeze, hypoxia consistent with acute respiratory failure and COPD exacerbation. she was treated with antibiotics for respiratory infection last week by her PCP without significant improvement. Her symptoms were grossly worsened over the last few days and she presented to the ER with significant shortness of breath. She also reported intermittent chest tightness described as a pressure. She was given 1 sublingual nitro with improvement in her symptoms. Therefore Cardiology was consulted. EKG was without acute changes with chronic LBBB. Initial troponin negative. This morning her troponin was minimally elevated consistent without EKG changes. At time of consult, patient reports intermittent chest pressure, worse with cough and ongoing SOB while at rest. No significant improvement in her cough since admission. Difficult to hold a conversation due to persistent cough. She denies chest pain with radiation. No orthopnea, PND or edema. The patient has a history of coronary heart disease having presented to the [facility] in early January, with a non-ST segment elevation microinfarction. She underwent cardiac catheterization with drug- eluting stent placement to the circumflex coronary artery in the right coronary artery on 01/26/2019. During that hospital stay she was also noted to have an intermittent left bundle branch block which was a new diagnosis and was found to have mild to moderate aortic valve stenosis. In April, I had seen her in hospital consultation. She was initially admitted with symptoms suggestive of bronchitis but also had chest pain. Her cardiac enzymes were mildly elevated. She went on to have cardiac catheterization during that admission on 05/09/[address] Monster Barnard of our practice revealing patency of her previously placed stents and a 40% mid circumflex stenosis. Allergies Allergy/AdvReac Type Severity Reaction Status Date / Time Gadolinium-Containing Allergy Severe NAUSEA,VOMITING, Verified 07/26/19 23:37 Contrast Medi SWELLING/EDEMA AROUND EYES, WHEEZING Iodinated Contrast- Oral and Allergy Severe RASH TO Verified 07/26/19 23:37 IV Dye IVP DYE,NAUSEA, FAINTING, COUGHING, GAGGING, HEADACH Sulfa (Sulfonamide Allergy Severe HIVES, Verified 07/26/19 23:37 Antibiotics) FACIAL AND ARM SWELLING cerivastatin Allergy Intermediate HIVES Verified 07/26/19 23:37 codeine Allergy Intermediate "PRICKLY Verified 07/26/19 23:37 RASH" hydroxyzine Allergy Intermediate N/V Verified 07/26/19 23:37 latex Allergy Intermediate DERMATITIS-PT Verified 07/26/19 23:37 TOLERATED A LATEX CATHETER 03/26/08 Bactrim Allergy Mild RASH Verified 04/29/18 14:40 diphenhydramine Allergy Mild RASH; Verified 07/26/19 23:37 SLEEPINESS WITH "PHARBEDRYL" loratadine Allergy Mild HIVES Verified 07/26/19 23:37 sulfamethoxazole Allergy Mild RASH Verified 07/19/19 15:37 trimethoprim Allergy Mild RASH Verified 07/19/19 15:37 prednisone Allergy Unknown elevates Verified 07/19/19 15:37 blood sugar tetanus toxoid, adsorbed AdvReac Intermediate SWELLING Verified 07/19/19 15:37 AT INJECTION SITE alprazolam AdvReac Unknown "SLEEPY Verified 07/19/19 15:37 STUPER" metformin AdvReac Unknown DIARRHEA Verified 07/19/19 15:37 morphine AdvReac Unknown VOMITING Verified 07/19/19 15:37 simvastatin AdvReac Unknown COUGH, Verified 07/19/19 15:37 "DISCOMFORT" gadobutrol [From Gadavist] AdvReac Anaphylaxis Unverified 07/19/19 15:37 Home Medications Home Medications Medication Instructions Recorded Confirmed Type amlodipine [Norvasc] 10 mg PO QAM 08/24/18 07/26/19 History aspirin 1 tab PO QPM 08/24/18 07/26/19 History dicyclomine 10 mg PO TID PRN 08/24/18 07/26/19 History fluticasone propionate [Flonase 2 spray INTRANASAL QPM PRN 08/24/18 07/26/19 History Allergy Relief] lorazepam [Ativan] 0.5 mg PO Q6 PRN 08/24/18 07/26/19 History ondansetron HCl [Zofran] 4 mg PO QID PRN 08/24/18 07/26/19 History trazodone 50 mg PO HS 08/24/18 07/26/19 History albuterol sulfate 2.5 mg INHALATION QID PRN 01/26/19 07/26/19 History levocetirizine [Xyzal] 2.5 mg PO QPM 01/26/19 07/26/19 History losartan 100 mg PO QAM 01/26/19 07/26/19 History mirtazapine 45 mg PO HS 01/26/19 07/26/19 History ropinirole 1 mg PO HS 01/26/19 07/26/19 History atorvastatin 40 mg PO QAM #30 tab 03/08/19 09/03/19 Rx clopidogrel 75 mg PO QAM #30 tab 01/28/19 07/26/19 Rx isosorbide mononitrate 30 mg PO QAM #30 tab 01/28/19 07/26/19 Rx nitroglycerin [Nitrostat] 0.4 mg SUBLINGUAL PRN PRN #30 tab 01/28/19 07/26/19 Rx Novolin 70/30 U-100 Insulin 35 unit SUBCUT QPM 05/04/19 07/26/19 History Novolin 70/30 U-100 Insulin 55 unit SUBCUT QAM 05/04/19 07/26/19 History albuterol sulfate [Proventil HFA] 2 puff INHALATION Q4 PRN 05/04/19 07/26/19 History gabapentin 800 mg PO HS 07/11/19 07/26/19 History magnesium oxide 400 mg PO QPM 07/11/19 07/26/19 History metoprolol tartrate 25 mg PO BID 07/11/19 07/26/19 History pantoprazole 40 mg PO QPM 07/11/19 07/26/19 History Patient History Medical History Osteoarthritis (Chronic) Seasonal allergies (Chronic) Aortic stenosis (Chronic) moderate Pancreatitis Acute CVA (cerebrovascular accident) 01/2019 X 2-NUMBNESS RIGHT ARM/"MEMORY LOSS SLOWLY COMING BACK" Elevated troponin Weakness Pre-syncope Leukocytosis Pneumonia Valvular heart disease Non-STEMI (non-ST elevated myocardial infarction) 01/2019 Left bundle branch block Giant cell arteritis (Resolved) Gastroparesis (Chronic) Dyslipidemia (Chronic) Depression (Chronic) HTN (hypertension) (Chronic) Insomnia (Chronic) RLS (restless legs syndrome) (Chronic) Peripheral neuropathy (Chronic) Pancreatic cyst (Chronic) Anxiety (Chronic) COPD (chronic obstructive pulmonary disease) (Chronic) Diabetes mellitus, type II (Chronic) poorly controlled Sleep apnea (Chronic) PT DENIES/NO DEVICE Chronic pancreatitis (Chronic) Cerebrovascular disease (Chronic) "history stroke and TIA" L sided weakness. Fatty liver (Chronic) Esophageal dysmotility (Chronic) Pancreatic divisum (Chronic) CKD (chronic kidney disease), stage III (Chronic) F/U PCP GERD (gastroesophageal reflux disease) Surgical History History of ERCP (Resolved) x3 with stents. ERCP 04/30/18. MAC 3, grade 2 view. 7.0 ETT placed. No issues. History of bilateral tubal ligation (Resolved) S/P cardiac catheterization (Resolved) 01/2019 [facility] X 2-TOTAL 2 STENTS 04/2019 non obstructive disease History of cataract surgery (Chronic) both eyes Family History Daughter No problems noted. Father Family history of diabetes mellitus Family/Other Family history of diabetes mellitus Mother Family history of diabetes mellitus Grandfather Family history of diabetes mellitus Grandmother Family history of diabetes mellitus Social History Preferred Language: Ghanaian Communication Ability: Effective Equipment Lead Required: No Beliefs That Will Affect Care: None marital status: / Current Living Situation: Alone Current Living Situation Comment: january 21, no longer has drivers license - stroke Other Information That Helps Us Care for You: No Feels Safe at Home: Yes Safety Concerns: Feels Safe At This Time Smoking Status: Former smoker Second Hand Exposure: No ; Hx Alcohol Use: No Hx Substance Use: No Review of Systems Review of Systems: All systems reviewed & are unremarkable except as noted in HPI & below Physical Exam Constitutional: WD/WN, vitals as above + ill appearing and + obese Respiratory: + labored breathing and + cough Auscultation: + wheezes (diffuse); no crackles Cardiovascular: RRR, no murmur, no edema Gastrointestinal (Abdomen): normal bowel sounds, soft, nontender, no hepatosplenomegaly Musculoskeletal: no cyanosis or clubbing, extremities motor strength 5/5 Psychiatric: A+Ox3, euthymic affect Results & Data Vital Signs (Past 12 Hours) Vital Signs Temp Pulse Pulse Resp BP BP BP 07/27/19 07:19 36.8 C 78 18 144/74 H 07/27/19 07:10 77 20 07/27/19 03:50 36.7 C 74 16 146/75 H 07/27/19 02:35 95 H 07/27/19 02:27 07/27/19 02:00 36.7 C 91 H 18 163/95 H 07/27/19 01:23 90 20 134/71 07/27/19 00:26 91 H 22 147/84 H 07/26/19 22:51 91 H 22 156/85 H 07/26/19 22:40 90 23 07/26/19 22:30 88 19 156/85 H 07/26/19 22:20 85 29 H 07/26/19 22:10 92 H 20 07/26/19 22:02 28 H 07/26/19 22:00 101 H 17 155/97 H 07/26/19 21:50 90 22 07/26/19 21:43 99 H 24 07/26/19 21:39 102 H 21 164/89 H 07/26/19 21:27 120 H 26 H 133/80 Pulse Ox Pulse Ox 07/27/19 07:19 94 07/27/19 07:10 96 07/27/19 03:50 94 07/27/19 02:35 07/27/19 02:27 98 07/27/19 02:00 96 07/27/19 01:23 96 07/27/19 00:26 96 07/26/19 22:51 100 07/26/19 22:40 99 07/26/19 22:30 100 07/26/19 22:20 99 07/26/19 22:10 99 07/26/19 22:02 96 07/26/19 22:00 97 07/26/19 21:50 98 07/26/19 21:43 97 07/26/19 21:39 97 07/26/19 21:27 99 Diagnostic Findings EKG reviewed - Normal sinus rhythm Left bundle branch block Abnormal ECG When compared with ECG of 26-JUL-2019 21:49, (unconfirmed) No significant change was found Chest CT on admission: IMPRESSION: 1. Mild peripheral/subpleural reticulation suggests chronic interstitial change. 2. Small focus of groundglass tree-in-bud nodular opacities within the right upper lobe anteriorly. This favors a mild infectious bronchiolitis. Otherwise, no focal lung consolidations identified. 3. The majority of the prominent mediastinal lymph nodes are stable. Slight increase in size in the dominant subcarinal lymph node. 4. Hepatic steatosis. (1) CAD (coronary artery disease) Associated angina: with unspecified angina Coronary Disease-Associated Artery/Lesion type: [place] artery [place] vs. transplanted heart: [place] heart Qualified Code(s): I25.119 - Atherosclerotic heart disease of [place] coronary artery with unspecified angina pectoris (2) Chest pain, unspecified Chest pain type: precordial pain Qualified Code(s): R07.2 - Precordial pain
[2019-07-27] MEDS: LEVALBUTEROL 1.25MG/0.5ML NEB INH SCH ×4 (11:13→23:46)
--- NOTE | 2019-07-27 12:15 | Pulmonary Consultation ---
Date of Consultation July 27, 2019 Assessment & Plan (1) Acute exacerbation of chronic obstructive pulmonary disease (COPD): Impression: 78-year-old female with reported history of obstructive lung disease although I cannot find her PFTs in the electronic medical record. She presents with wheezing now and certainly could have an exacerbation of his. She had eosinophilia previously but not on this admission. Recommendations: 1. Obstructive lung disease: We will proceed under the assumption that the patient does have significant obstructive lung disease. We will check IgE level although this may be decreased due to concomitant steroids. Would continue Solu-Medrol for now with plans to transition to oral prednisone at some point. We will add budesonide and formoterol nebulizers to the patient's regiment as well as Spiriva. Continue as needed short acting beta agonist. Azithromycin will also be provided. 2. Hypoxemic respiratory failure: Continue supplemental oxygen titrated to keep saturations at or above 88%. 3. Outpatient pulmonary function tests are recommended. 4. Abnormal CT scan: Patient does have a faint area of groundglass opacity in the anterior aspect of the right upper lobe. Radiographic surveillance with a follow-up CT scan in 3 to 6 months is recommended. I suspect the described interstitial changes likely represent atelectasis. 5. We will continue to follow with you. Feel free to contact us with questions or concerns. (2) Dyspnea: (3) Acute hypoxemic respiratory failure: (4) Abnormal CT scan of lung: History of Present Illness Attending Physician: Yony Gonzalez MD History of Present Illness Asked by the hospitalist to assist in management of resumed COPD. History is obtained from review the electronic medical record as well as discussion with the patient the bedside. Patient is a very pleasant 78-year-old female who is in a mild degree of respiratory distress. She states she was diagnosed with COPD several years ago she has a less than 2-pack-year history of tobacco abuse. She quit smoking in the . She did have significant secondhand tobacco exposure from her who smoked 2 to 3 packs/day. She had no significant occupational or environmental exposures. She believes she had pulmonary function test performed several years ago and that is when she was given a diagnosis of COPD. She has a nebulizer that she uses at home. She is not oxygen dependent. There is no history of asthma or allergies growing up and she had no respiratory issues up until a few years ago. Patient does have clinical notes from 2016 where she was seen by pulmonary and underwent bronchoscopy. Those notes indicate a childhood history of asthma although the patient does not reinforce this. She felt some congestion and saw her primary care provider who prescribed a course of antibiotics. This was ineffectual and treating her symptoms and she continued to have cough and chest congestion. She was given some cough suppressants but when these were ineffectual she was advised to come to the emergency room. She was seen and evaluated and treated. She has received Solu- Medrol as well as some bronchodilators and doxycycline. She continues to have respiratory difficulties. She does not report any chest pain or lower extremity edema. No fevers chills or night sweats. No other contacts. Patient does have a history of moderate aortic stenosis with mild mitral insufficiency. CT scan of the chest was essentially unrevealing. Remaining 12 point review of systems was completed and is negative except as noted above. Patient states that she was in her usual state of health up until approximately 1 week prior to admission. Allergies Allergy/AdvReac Type Severity Reaction Status Date / Time Gadolinium-Containing Allergy Severe NAUSEA,VOMITING, Verified 07/26/19 23:37 Contrast Medi SWELLING/EDEMA AROUND EYES, WHEEZING Iodinated Contrast- Oral and Allergy Severe RASH TO Verified 07/26/19 23:37 IV Dye IVP DYE,NAUSEA, FAINTING, COUGHING, GAGGING, HEADACH Sulfa (Sulfonamide Allergy Severe HIVES, Verified 07/26/19 23:37 Antibiotics) FACIAL AND ARM SWELLING cerivastatin Allergy Intermediate HIVES Verified 07/26/19 23:37 codeine Allergy Intermediate "PRICKLY Verified 07/26/19 23:37 RASH" hydroxyzine Allergy Intermediate N/V Verified 07/26/19 23:37 latex Allergy Intermediate DERMATITIS-PT Verified 07/26/19 23:37 TOLERATED A LATEX CATHETER 03/26/08 Bactrim Allergy Mild RASH Verified 04/29/18 14:40 diphenhydramine Allergy Mild RASH; Verified 07/26/19 23:37 SLEEPINESS WITH "PHARBEDRYL" loratadine Allergy Mild HIVES Verified 07/26/19 23:37 sulfamethoxazole Allergy Mild RASH Verified 07/19/19 15:37 trimethoprim Allergy Mild RASH Verified 07/19/19 15:37 prednisone Allergy Unknown elevates Verified 07/19/19 15:37 blood sugar tetanus toxoid, adsorbed AdvReac Intermediate SWELLING Verified 07/19/19 15:37 AT INJECTION SITE alprazolam AdvReac Unknown "SLEEPY Verified 07/19/19 15:37 STUPER" metformin AdvReac Unknown DIARRHEA Verified 07/19/19 15:37 morphine AdvReac Unknown VOMITING Verified 07/19/19 15:37 simvastatin AdvReac Unknown COUGH, Verified 07/19/19 15:37 "DISCOMFORT" gadobutrol [From Gadavist] AdvReac Anaphylaxis Unverified 07/19/19 15:37 Home Medications Home Medications Medication Instructions Recorded Confirmed Type amlodipine [Norvasc] 10 mg PO QAM 08/24/18 07/26/19 History aspirin 1 tab PO QPM 08/24/18 07/26/19 History dicyclomine 10 mg PO TID PRN 08/24/18 07/26/19 History fluticasone propionate [Flonase 2 spray INTRANASAL QPM PRN 08/24/18 07/26/19 History Allergy Relief] lorazepam [Ativan] 0.5 mg PO Q6 PRN 08/24/18 07/26/19 History ondansetron HCl [Zofran] 4 mg PO QID PRN 08/24/18 07/26/19 History trazodone 50 mg PO HS 08/24/18 07/26/19 History albuterol sulfate 2.5 mg INHALATION QID PRN 01/26/19 07/26/19 History levocetirizine [Xyzal] 2.5 mg PO QPM 01/26/19 07/26/19 History losartan 100 mg PO QAM 01/26/19 07/26/19 History mirtazapine 45 mg PO HS 01/26/19 07/26/19 History ropinirole 1 mg PO HS 01/26/19 07/26/19 History atorvastatin 40 mg PO QAM #30 tab 01/28/19 07/26/19 Rx clopidogrel 75 mg PO QAM #30 tab 01/28/19 07/26/19 Rx isosorbide mononitrate 30 mg PO QAM #30 tab 01/28/19 07/26/19 Rx nitroglycerin [Nitrostat] 0.4 mg SUBLINGUAL PRN PRN #30 tab 01/28/19 07/26/19 Rx Novolin 70/30 U-100 Insulin 35 unit SUBCUT QPM 05/04/19 07/26/19 History Novolin 70/30 U-100 Insulin 55 unit SUBCUT QAM 05/04/19 07/26/19 History albuterol sulfate [Proventil HFA] 2 puff INHALATION Q4 PRN 05/04/19 07/26/19 History gabapentin 800 mg PO HS 07/11/19 07/26/19 History magnesium oxide 400 mg PO QPM 07/11/19 07/26/19 History metoprolol tartrate 25 mg PO BID 07/11/19 07/26/19 History pantoprazole 40 mg PO QPM 07/11/19 07/26/19 History Patient History Medical History Osteoarthritis (Chronic) Seasonal allergies (Chronic) Aortic stenosis (Chronic) moderate Pancreatitis Acute CVA (cerebrovascular accident) 01/2019 X 2-NUMBNESS RIGHT ARM/"MEMORY LOSS SLOWLY COMING BACK" Elevated troponin Weakness Pre-syncope Leukocytosis Pneumonia Valvular heart disease Non-STEMI (non-ST elevated myocardial infarction) 01/2019 Left bundle branch block Giant cell arteritis (Resolved) Gastroparesis (Chronic) Dyslipidemia (Chronic) Depression (Chronic) HTN (hypertension) (Chronic) Insomnia (Chronic) RLS (restless legs syndrome) (Chronic) Peripheral neuropathy (Chronic) Pancreatic cyst (Chronic) Anxiety (Chronic) COPD (chronic obstructive pulmonary disease) (Chronic) Diabetes mellitus, type II (Chronic) poorly controlled Sleep apnea (Chronic) PT DENIES/NO DEVICE Chronic pancreatitis (Chronic) Cerebrovascular disease (Chronic) "history stroke and TIA" L sided weakness. Fatty liver (Chronic) Esophageal dysmotility (Chronic) Pancreatic divisum (Chronic) CKD (chronic kidney disease), stage III (Chronic) F/U PCP GERD (gastroesophageal reflux disease) Surgical History History of ERCP (Resolved) x3 with stents. ERCP 04/30/18. MAC 3, grade 2 view. 7.0 ETT placed. No issues. History of bilateral tubal ligation (Resolved) S/P cardiac catheterization (Resolved) 01/2019 [facility] X 2-TOTAL 2 STENTS 04/2019 non obstructive disease History of cataract surgery (Chronic) both eyes Family History Daughter No problems noted. 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: No Beliefs That Will Affect Care: None marital status: / Current Living Situation: Alone Current Living Situation Comment: january 21, no longer has drivers license - stroke Other Information That Helps Us Care for You: No Feels Safe at Home: Yes Safety Concerns: Feels Safe At This Time Smoking Status: Former smoker Second Hand Exposure: No ; Hx Alcohol Use: No Hx Substance Use: No Results & Data Vital Signs (Past 12 Hours) Vital Signs Temp Pulse Pulse Resp BP BP Pulse Ox 07/27/19 11:14 72 18 98 07/27/19 10:55 36.4 C L 73 18 118/69 96 07/27/19 07:19 36.8 C 78 18 144/74 H 94 07/27/19 07:10 77 20 96 07/27/19 03:50 36.7 C 74 16 146/75 H 94 07/27/19 02:35 95 H 07/27/19 02:27 07/27/19 02:00 36.7 C 91 H 18 163/95 H 96 07/27/19 01:23 90 20 134/71 96 07/27/19 00:26 91 H 22 147/84 H 96 Pulse Ox 07/27/19 11:14 07/27/19 10:55 07/27/19 07:19 07/27/19 07:10 07/27/19 03:50 07/27/19 02:35 07/27/19 02:27 98 07/27/19 02:00 07/27/19 01:23 07/27/19 00:26 Laboratory Results 07/27/19 06:17 07/27/19 06:17 Diagnostic Findings Films independently reviewed. CT chest wo con CT DOSE: 816.91 mGy.cm HISTORY: cough ro pneumonia TECHNIQUE: Multiaxial CT images of the chest were performed without contrast. A dose lowering technique was utilized adhering to the principles of ALARA. COMPARISON: Chest CT 11/24/2015. FINDINGS: The central airways are patent. No pleural effusions. No pneumothorax. Punctate calcified granuloma within the left lower lobe. Mild pe ripheral/subpleural reticulation suggests chronic interstitial change. This is most pronounced at the lung bases. Small focus of groundglass densities within the right upper lobe anteriorly which have a tree-in-bud pattern. This is best seen on image 109 and favors a mild infectious bronchiolitis. Otherwise, no focal lung consolidations identified. No suspicious lytic or blastic osseous lesions. Hepatic steatosis. Multiple calcified granulomas within the liver and spleen. Cholecystectomy. A single borderline enlarged right axillary lymph node remains stable. Therefore, this is likely benign. A few prominent mediastinal lymph nodes remains stable. The dominant subcarinal lymph node has slightly increased in size. This measures 1.5 cm in short axis diameter, previously measuring 1.2 cm. No hilar lymphadenopathy. Normal esophagus. Dense mitral annulus calcifications. Right jugular Port-A-Cath terminates in the distal SVC. The heart is borderline enlarged. Normal caliber thoracic aorta. No pericardial effusions. IMPRESSION: 1. Mild peripheral/subpleural reticulation suggests chronic interstitial change. 2. Small focus of groundglass tree-in-bud nodular opacities within the right upp er lobe anteriorly. This favors a mild infectious bronchiolitis. Otherwise, no focal lung consolidations identified. 3. The majority of the prominent mediastinal lymph nodes are stable. Slight increase in size in the dominant subcarinal lymph node. 4. Hepatic steatosis. Prior PFTs not available to review PG Care Time/CCT Total # of Minutes Spent Total Time Spent with Patient: Total time spent is greater than 50% in coordination of care (as documented) at patient's floor/unit and/or counseling patient:
[2019-07-27] MEDS ORDERED: INSULIN PROTOCOL GOAL RANGE ONE (13:20)
[2019-07-27] MEDS: AZITHROMYCIN 250 MG TAB PO SCH (13:55)
[2019-07-27] MEDS: TIOTROPIUM BROMIDE 5 PUFF/90 MCG INH INH SCH (13:56)
[2019-07-27] MEDS ORDERED: Nursing to Pharmacy Communication ONE (14:20)
--- NOTE | 2019-07-27 16:03 | Pharmacy Report ---
Glycemic Control Consultation - Date of Service July 27, 2019 - Scope Scope: Glycemic Pharmacist consulted by Dr Russ on 07/27/19 for glycemic control and to write orders per [facility] inpatient glycemic control protocol - Objective Weight: 72.3 kg Accuchecks BSG (last 24hrs): 07/26/19 07/27/19 07/27/19 21:49 00:17 00:18 Glucose 539 H* POC Glucose 406 H* 451 H* 07/27/19 07/27/19 07/27/19 00:57 00:58 01:17 Glucose 383 H* POC Glucose 413 H* 395 H* 07/27/19 07/27/19 07/27/19 02:32 04:23 05:19 Glucose POC Glucose 394 H* 440 H* 411 H* 07/27/19 07/27/19 07/27/19 06:17 06:22 07:19 Glucose 380 H* POC Glucose 399 H* 351 H* 07/27/19 07/27/19 07/27/19 08:36 09:24 10:24 Glucose POC Glucose 407 H* 461 H* 369 H* 07/27/19 07/27/19 07/27/19 11:25 12:25 13:31 Glucose POC Glucose 317 H* 281 H 347 H* 07/27/19 07/27/19 13:32 14:31 Glucose POC Glucose 317 H* 267 H Laboratory Data (last 24hrs): 07/26/19 07/27/19 07/27/19 21:49 01:17 06:17 Potassium 4.5 3.8 D 4.7 D Carbon Dioxide 17 L 17 L 16 L Anion Gap 13.0 H 12.0 H 12.0 H Creatinine 1.62 H 1.56 H 1.41 H Est Cr Clr Drug Dosing Not Reportable Not Reportable 29.2 Beta-Hydroxybutyric Acd 2.68 3.59 H 2.54 HbA1c: Hemoglobin A1c 10.4 % (4.5-5.6) H 07/27/19 01:17 - Recent Pertinent Medications Outpatient Anti-diabetic Regimen: * Novolin 70/30- 55 units QAM, 35 units QPM * A1c = 10.4 % [07/27/19] Risk Factors for Insulin Resistance: * Steroids: Solu medrol 125 mg IV x1 at 2200 yesterday + 40 mg IV QAM * Infection: Doxy PO * IVF: LR @ 200 ml/hr x 1 bag * Diet: Clear liquid - Assessment & Plan Assessment & Plan: ASSESSMENT: * 78 y/o F admitted with COPD exacerbation and hyperglycemia due to illness. Patient was recently admitted here in June and was effectively managed on NPH insulin along with insulin drip. * Ms Kaplan' BSG on admission was above 400, therefore an insulin drip was started on her last night with goal range of 150 - 250 mg/dl. * Also she was given NPH 35 units at 03:00 AM. * BSGs continued to trend up this morning and the drip rate went upto 7 units/hr. Another dose of NPH 40 units was given at 1300 today and goal range reduced to 150 - 200 in an effort to manage her hyperglycemia and wean her off the drip. * HS NPH dose ordered based on a scale. * Novolog carb ratio was tightened to 4 based on good results from recent admission using this ratio. PLAN FOR INPATIENT GLYCEMIC CONTROL: * Continue IV insulin infusion protocol until rate is down to 1 unit/hr or less and BSG within goal. Pending order entered for this. * Goal Range 150 - 200 mg/dl * In the critical care setting, continuous IV insulin infusion has been shown to be the best method for achieving glycemic targets. * Basal insulin * NPH insulin ordered for 2100 tonight based on insulin drip rate ranging from 10 units to 25 units. * Bolus insulin * NovoLog per scale ACHS * Nutritional / Prandial insulin per carb ratio of 1 unit per 4 grams CHO consumed * Please note that the plan above was derived based on current level of insulin resistance and hospital stress. These recommendations are appropriate for inpatient admission only. Plan of care upon discharge will need to be reassessed to avoid potential outpatient hypo/hyperglycemia. Thank you.
[2019-07-27] MEDS ORDERED: INSULIN ASPART 100 UNITS/ML 3 ML PEN SC SCH (16:30)
[2019-07-27] MEDS: BUDESONIDE 0.5 MG/2 ML VIAL (PULMICORT) NEB SCH (19:08)
[2019-07-27] MEDS: FORMOTEROL 20 MCG/2 ML VIAL NEB SCH (19:08)
[2019-07-27] MEDS: DC IV INSULIN INFUSION 1 EA DEVI SCH ×3 (20:18→22:57)
[2019-07-27] MEDS: TRAZODONE HCL 50 MG TAB PO SCH (20:36)
[2019-07-27] MEDS: ROPINIROLE HCL 1 MG TABLET PO SCH (20:36)
[2019-07-27] MEDS: MIRTAZAPINE SOLTAB 15 MG PO SCH (20:37)
[2019-07-27] MEDS: PANTOprazole 40 MG TAB PO SCH (20:37)
[2019-07-27] MEDS: ASPIRIN 81 MG ECTAB PO SCH (20:38)
[2019-07-27] MEDS: GABAPENTIN 400 MG CAP PO SCH (20:39)
[2019-07-27] MEDS ORDERED: HEPARIN 100 UNIT/ML 5ML FLUSH FLUSH PRN (22:52)
[2019-07-28] MEDS: XYZAL~ORDER AWAITING ACTION SCH ×3 (00:02→15:25)
[2019-07-28] MEDS: DC IV INSULIN INFUSION 1 EA DEVI SCH ×5 (00:02→04:18)
[2019-07-28] MEDS: INSULIN REGULAR 250 UNITS in SODIUM CHLORIDE 0.9% 247.5 ML IV SCH (02:14)
[2019-07-28] MEDS: LACTATED RINGER'S 1,000 ML IV SCH ×2 (02:33→12:59)
[2019-07-28] MEDS: LEVALBUTEROL 1.25MG/0.5ML NEB INH SCH ×4 (03:12→15:42)
[2019-07-28] MEDS: IPRATROPIUM BROMIDE NEB SOLN 0.02% 2.5 ML VIAL INH SCH ×4 (03:12→15:42)
[2019-07-28] MEDS: HEPARIN SOD 5,000 UNIT/0.5 ML VIAL SQ SCH ×3 (05:35→20:27)
[2019-07-28 07:09] LABS: Basophils # (auto) 0.04 K/uL (0-0.2); Basophils % (auto) 0.3 %; Eosinophils # (auto) 0.05 K/uL (0-0.5); Eosinophils % (auto) 0.3 %; Hematocrit (blood only) 28.3 % (37-47); Hemoglobin 9.7 g/dL (12.0-16.0); Immature Granulocytes # (auto) 0.07 K/uL (0.00-0.02); Immature Granulocytes % (auto) 0.4 %; Lymphocytes # (auto) 4.33 K/uL (1.2-3.4); Lymphocytes % (auto) 27.4 %; Mean Corpuscular Hgb Conc 34.3 g/dL (32-36); Mean Corpuscular Volume 87.3 fL (80-100); Mean Platelet Volume 9.5 fL (7.4-10.4); Monocytes # (auto) 1.07 K/uL (0.11-0.59); Monocytes % (auto) 6.8 %; Neutrophils # (auto) 10.27 K/uL (1.4-6.5); Neutrophils % (auto) 64.8 %; Platelet Count 199 K/uL (130-400); RDW Coefficient of Variation 14.5 % (11.5-14.5); RDW Standard Deviation 45.7 fL (36.4-46.3); Red Blood Count 3.24 M/uL (4.2-5.4); White Blood Count 15.83 K/uL (4.8-10.8)
[2019-07-28] MEDS: BUDESONIDE 0.5 MG/2 ML VIAL (PULMICORT) NEB SCH ×2 (07:23→19:06)
[2019-07-28] MEDS: FORMOTEROL 20 MCG/2 ML VIAL NEB SCH ×2 (07:23→19:06)
[2019-07-28 07:41] LABS: BUN Creatinine Ratio 19.5 (10-20); Calcium 8.5 mg/dl (8.5-10.1); Creatinine Clr Calc Pharmacy 35.4 ml/min; Est GFR (African American) 51.2; Est GFR (Non-African American) 44.1; Magnesium 1.7 mg/dl (1.8-2.4); Phosphorus 3.4 mg/dl (2.5-4.9); Potassium 4.3 mmol/L (3.5-5.1)
[2019-07-28] MEDS ORDERED: INSULIN HUMAN NPH SC SCH (08:00)
[2019-07-28] MEDS: ATORVASTATIN 40 MG TAB PO SCH (08:19)
[2019-07-28] MEDS: methylPREDNISolone 40 MG in SYRINGE 0 ML IV SCH (08:19)
[2019-07-28] MEDS: AMLODIPINE BESYLATE 5 MG TAB PO SCH (08:19)
[2019-07-28] MEDS: CLOPIDOGREL BISULFATE 75 MG TAB PO SCH (08:19)
[2019-07-28] MEDS: TIOTROPIUM BROMIDE 5 PUFF/90 MCG INH INH SCH (08:21)
[2019-07-28] MEDS: METOPROLOL TARTRATE 25 MG TAB PO SCH ×2 (08:21→19:55)
[2019-07-28] MEDS: ISOSORBIDE MONO EXTENDED REL 30 MG TABCR PO SCH (08:22)
[2019-07-28] MEDS: AZITHROMYCIN 250 MG TAB PO SCH (08:22)
[2019-07-28] MEDS: DOXYCYCLINE HYCLATE 100 MG CAP PO SCH ×2 (08:22→19:54)
[2019-07-28] MEDS: INSULIN ASPART 100 UNITS/ML 3 ML PEN SC SCH ×5 (08:24→23:50)
--- NOTE | 2019-07-28 10:46 | Pharmacy Report ---
Pharmacy Glycemic Short Note 2 - Date of Service July 28, 2019 - Glycemic Short BSG Results (Last 24 hours): 07/27/19 07/27/19 07/27/19 11:25 12:25 13:31 Glucose POC Glucose 317 H* 281 H 347 H* 07/27/19 07/27/19 07/27/19 13:32 14:31 16:31 Glucose POC Glucose 317 H* 267 H 231 H 07/27/19 07/27/19 07/27/19 18:24 19:36 20:34 Glucose POC Glucose 293 H 285 H 221 H 07/27/19 07/27/19 07/27/19 21:24 22:33 22:55 Glucose POC Glucose 178 H 128 H 121 H 07/27/19 07/27/19 07/28/19 23:11 23:28 00:58 Glucose POC Glucose 122 H 124 H 124 H 07/28/19 07/28/19 07/28/19 04:00 05:40 06:39 Glucose 95 POC Glucose 89 76 07/28/19 07:28 Glucose POC Glucose 81 OUTPATIENT ANTIDIABETIC REGIMEN: * 70/30 insulin 55 units w/ breakfast + 35 units with dinner * A1c = 10.4% 07/27/19 ASSESSMENT: * Type 2 diabetic admitted for COPD exacerbation * Insulin drip titrated off last evening * Fasting BSG 76-95 this AM, in total she received NPH 35 + 40 + 25 units yesterday, 25 units given HS last evening * Will base today's insulin doses upon past admission data while on similar steroid dosing as well as stress dosing of home regimen. I would anticipate she will require ~120-170 units of insulin per day while receiving Solu-Medrol 40mg daily in the AM. * Will continue to use NPH for basal insulin doses. This AM's basal dose will be lesser due to BSG in the 70s. PLAN FOR INPATIENT GLYCEMIC CONTROL: * Hold outpatient oral diabetes medications * Basal insulin * NPH 35 units w/ breakfast today, then 40 units w/ breakfast + 30 units w/ dinner * Bolus insulin * NovoLog per scale ACHS and at 0000 + 0400 tonight * Goal Range: Low 120 mg/dL - High 140 mg/dL * Correction Factor: 10 mg/dL/unit * Nutritional / Prandial insulin per carb ratio of 1 unit per 3 grams CHO consumed PLAN FOR DISCHARGE: * A1c is elevated, outpt regimen adjustment likely warranted to better attain goals.
[2019-07-28] MEDS: CARBOHYDRATES FOR HYPOGLYCEMIA PO PRN (11:19)
[2019-07-28] MEDS ORDERED: BENZONATATE 100 MG CAPSULE PO PRN (11:33)
--- NOTE | 2019-07-28 12:37 | Pulmonology Progress Note ---
Date of Service July 28, 2019 Assessment & Plan (1) Acute exacerbation of chronic obstructive pulmonary disease (COPD): Impression: 78-year-old female with reported history of obstructive lung disease although I cannot find her PFTs in the electronic medical record. She presents with wheezing now and certainly could have an exacerbation of his. She had eosinophilia previously but not on this admission. Recommendations: 1. Obstructive lung disease: Proceeding under the assumption that the patient does have significant obstructive lung disease. IgE pending. We will add Singulair to her regimen as well as Benadryl and Tessalon as needed for cough. Increase her steroids to 125 every 8 and follow clinically. 2. Hypoxemic respiratory failure: Continue supplemental oxygen titrated to keep saturations at or above 88%. 3. Outpatient pulmonary function tests are recommended. 4. Abnormal CT scan: Patient does have a faint area of groundglass opacity in the anterior aspect of the right upper lobe. Radiographic surveillance with a follow-up CT scan in 3 to 6 months is recommended. I suspect the described interstitial changes likely represent atelectasis. 5. We will continue to follow with you. Feel free to contact us with questions or concerns. (2) Dyspnea: (3) Acute hypoxemic respiratory failure: (4) Abnormal CT scan of lung: Subjective Patient continues to experience paroxysms of cough and states that her breathing is not much better. She is not expectorating any phlegm. She is unsure that the breathing treatments are offering her a clinical benefit. She thinks they do help her for 5 to 10 minutes but then her symptoms return. No fevers chills or night sweats. Results & Data Vital Signs (Past 12 Hours) Vital Signs Temp Pulse Resp BP Pulse Ox 07/28/19 11:48 36.5 C 90 18 155/79 H 93 07/28/19 11:23 85 20 95 07/28/19 10:15 36.7 C 78 17 156/76 H 97 07/28/19 08:14 36.7 C 95 H 24 154/135 H 95 07/28/19 07:23 73 20 98 07/28/19 04:10 37.1 C 85 20 143/76 H 97 07/28/19 03:14 82 18 96 Laboratory Results 07/28/19 06:39 07/28/19 06:39 IgE level pending PG Care Time/CCT Total # of Minutes Spent Total Time Spent with Patient: Total time spent is greater than 50% in coordination of care (as documented) at patient's floor/unit and/or counseling patient:
[2019-07-28] MEDS: methylPREDNISolone 125 MG in SYRINGE 0 ML IV SCH ×2 (14:12→20:26)
[2019-07-28] MEDS: ALBUT/IPRATROP 3MG/0.5MG NEB 3 ML VIAL NEB SCH ×3 (14:43→23:26)
[2019-07-28] MEDS: LORazepam 0.5 MG TAB PO PRN ×2 (14:49→22:44)
[2019-07-28] MEDS ORDERED: FUROSEMIDE 40 MG/4 ML VIAL IV ONE (15:01)
[2019-07-28] MEDS ORDERED: MoRPHine SULFATE 2 MG/ML CARP ONE (15:02)
[2019-07-28] MEDS ORDERED: MoRPHine SULFATE 2 MG/ML CARP IV STA (15:04)
--- NOTE | 2019-07-28 15:25 | Hospitalist Progress Note ---
Date of Service July 28, 2019 Assessment & Plan (1) COPD exacerbation: Secondary to complicated bronchitis without any evidence of pneumonia Possible sepsis at presentation Has been on regular bronchodilators, intravenous Solu-Medrol and IV antibiotics She is very anxious and having more shortness of breath with cough Appreciate pulmonary input and recommendation Steroid dose has been increased and has been getting regular cough suppressant Clinically not any better Will get a stat chest x-ray to rule out any fluid overload/pulmonary edema Received 1 mg of bumetanide IV stat and IV fluid discontinued Hypertension elevated secondary discomfort Blood pressure seems to be controlled ARF on CRI secondary to illness Received adequate intravenous fluid initially mostly for suspected sepsis We will monitor renal function Anxiety/mood disorder, at baseline as per patient Symptom more anxious Received Ativan orally Will give morphine 2 mg IV stat for anxiety and shortness of breath (2) Acute hypoxemic respiratory failure: Secondary to have a Continue nasal cannula oxygen Saturating well with 2 L (3) Chest pain, unspecified: Presented with chest pain Initial troponin was elevated Was evaluated by yard switcher Echo: Normal LV systolic function without regional wall motion abnormality with EF of 60 to 65%, small circumferential pericardial effusion without hemodynamic significance. Stranding is present to suggest chronicity No ACS We will continue current medications (4) LBBB (left bundle branch block): Chronic left bundle branch block (5) Elevated troponin I level: As above No ACS (6) Seasonal allergies: Condition is worse with increasing allergic symptoms especially cough Will observe DVT prophylax Subcu heparin CODE STATUS Full (7) Diabetes mellitus with hyperglycemia: Her blood sugar is elevated Pharmacy consult Blood sugar is going to be high due to use of high-dose of steroid We will continue current treatment May need insulin drip Subjective 07/28 The patient was seen and examined in telemetry unit on 07/27 and today She has been complaining of more shortness of breath with cough and wheezing She is very anxious and restless and wants to go home Condition even got worse at around 3:10 PM Review of Systems Review of Systems: All systems reviewed and unremarkable except as noted below Constitutional: + weakness and + problem reported (Very anxious with increasing shortness of breath and cough) Respiratory: + cough, + chest congestion, + dyspnea, + pain with cough and + wheezing Cardiovascular: + chest pain (Likely secondary to cough) Physical Exam Physical Exam: Very distress with shortness of breath and cough Constitutional: WD/WN, vitals as above + acute distress (Shortness of breath and cough) and + ill appearing Respiratory: + respiratory distress, + labored breathing, + uses accessory muscles and + cough Auscultation: + diminished lung sounds and + wheezes (diffuse); no crackles Cardiovascular: Rate/Rhythm: regular rate and regular rhythm Gastrointestinal (Abdomen): Inspection/Auscultation: abdomen normal to inspection and normal bowel sounds Percussion/Palpation: abdomen soft Psychiatric: Affect: + anxious affect Mood: + anxious mood and + irritable mood Lymphatic: no cervical or axillary lymphadenopathy Results & Data Vital Signs (Past 12 Hours) Vital Signs Temp Pulse Resp BP Pulse Ox 07/28/19 14:53 35.6 C L 103 H 20 165/81 H 99 07/28/19 14:45 107 H 30 H 98 07/28/19 11:48 36.5 C 90 18 155/79 H 93 07/28/19 11:23 85 20 95 07/28/19 10:15 36.7 C 78 17 156/76 H 97 07/28/19 08:14 36.7 C 95 H 24 154/135 H 95 07/28/19 07:23 73 20 98 07/28/19 04:10 37.1 C 85 20 143/76 H 97 07/28/19 03:14 82 18 96 Laboratory Results Short CBC 07/28/19 Range/Units 06:39 WBC 15.83 H (4.8-10.8) K/uL Hgb 9.7 L (12.0-16.0) g/dL Hct 28.3 L (37-47) % Plt Count 199 (130-400) K/uL BMP 07/28/19 06:39 Sodium 143 D Potassium 4.3 Chloride 114 H Carbon Dioxide 23 BUN 23 H Creatinine 1.18 Glucose 95 Calcium 8.5 Medications Administered Current Inpatient Medications Acetaminophen (Tylenol) 325 mg PO Q6H PRN PRN Reason: Pain or Fever Stop: 08/26/19 02:26 Last Admin: 07/27/19 04:38 Dose: 325 mg Documented by: Albuterol (Duoneb) 3 ml NEB Q4R [facility] Stop: 08/27/19 14:59 Last Admin: 07/28/19 14:43 Dose: 3 ml Documented by: Amlodipine Besylate (Norvasc) 10 mg PO QAM [facility] Stop: 08/26/19 08:59 Last Admin: 07/28/19 08:19 Dose: 10 mg Documented by: Aspirin (Ecotrin Ectab) 81 mg PO QPM [facility] Stop: 08/26/19 20:59 Last Admin: 07/27/19 20:38 Dose: 81 mg Documented by: Atorvastatin Calcium (Lipitor) 40 mg PO QAM [facility] Stop: 08/26/19 08:59 Last Admin: 07/28/19 08:19 Dose: 40 mg Documented by: Azithromycin (Zithromax) 250 mg PO QAM [facility] Stop: 08/03/19 13:14 Last Admin: 07/28/19 08:22 Dose: 250 mg Documented by: Benzonatate (Tessalon Perle) 100 mg PO TID PRN PRN Reason: Cough Stop: 08/26/19 07:56 Last Admin: 07/27/19 20:36 Dose: 100 mg Documented by: Budesonide (Pulmicort Respules) 0.5 mg NEB BIDR [facility] Stop: 08/26/19 18:59 Last Admin: 07/28/19 07:23 Dose: 0.5 mg Documented by: Clopidogrel Bisulfate (Plavix) 75 mg PO QAM [facility] Stop: 08/26/19 08:59 Last Admin: 07/28/19 08:19 Dose: 75 mg Documented by: Dextrose (Dextrose 50%) 25 - 50 ml IV UD PRN; Protocol PRN Reason: Hypoglycemia Protocol Stop: 08/26/19 02:44 Dicyclomine HCl (Bentyl) 10 mg PO TID PRN PRN Reason: ABDOMINAL CRAMPS Stop: 08/26/19 02:26 Diphenhydramine HCl (Benadryl Capsule) 50 mg PO Q8 PRN PRN Reason: Cough Stop: 08/27/19 11:32 Last Admin: 07/28/19 12:34 Dose: 50 mg Documented by: Doxycycline Hyclate (Vibramycin) 100 mg PO BID [facility] Stop: 08/03/19 08:59 Last Admin: 07/28/19 08:22 Dose: 100 mg Documented by: Formoterol Fumarate (Perforomist) 20 mcg NEB BIDR [facility] Stop: 08/26/19 18:59 Last Admin: 07/28/19 07:23 Dose: 20 mcg Documented by: Gabapentin (Neurontin) 800 mg PO [facility] Stop: 08/26/19 20:59 Last Admin: 07/27/19 20:39 Dose: 800 mg Documented by: Glucagon (Glucagen) 1 mg IM UD PRN; Protocol PRN Reason: Hypoglycemia Protocol Stop: 08/26/19 02:44 Glucose (Glucose 40%) 15 - 30 gm PO UD PRN; Protocol PRN Reason: Hypoglycemia Protocol Stop: 08/26/19 02:44 Glucose (Dex4 Glucose) 4 - 8 tabs PO UD PRN; Protocol PRN Reason: Hypoglycemia Protocol Stop: 08/26/19 02:44 Guaifenesin (Robitussin Sugar Free) 200 mg PO Q6H PRN PRN Reason: Cough Stop: 08/26/19 05:55 Last Admin: 07/27/19 21:42 Dose: 200 mg Documented by: Heparin Sodium (Porcine) (Heparin Sodium (Porcine)) 5,000 units SQ Q8 [facility] Stop: 08/26/19 05:59 Last Admin: 07/28/19 14:12 Dose: 5,000 units Documented by: Heparin Sodium (Porcine) (Heparin Sod 100 Unit/Ml Flush) 5 ml FLUSH PRN PRN PRN Reason: Flush Stop: 08/26/19 22:59 Hydromorphone HCl (Dilaudid) 0.25 mg IV Q6H PRN PRN Reason: Pain Stop: 08/10/19 02:26 Promethazine HCl 12.5 mg/ (Sodium Chloride) 50.5 mls @ 202 mls/hr IV Q6H PRN PRN Reason: Nausea And Vomiting Stop: 08/26/19 02:26 Lactated Ringer's (Lr) 1,000 mls @ 100 mls/hr IV .Q10H [facility] Stop: 08/26/19 17:29 Last Admin: 07/28/19 12:59 Dose: 100 mls/hr Documented by: Methylprednisolone 125 mg/ (Syringe) 2 mls @ 1.5 mls/min IV Q8 [facility] Stop: 08/01/19 13:59 Last Admin: 07/28/19 14:12 Dose: 1.5 mls/min Documented by: Bumetanide 1 mg/ Syringe 4 mls @ 4 mls/min IV NOW ONE Stop: 07/28/19 16:01 Insulin Aspart (Novolog Flexpen) 0 units SC ACHS [facility] Stop: 08/26/19 07:29 Last Admin: 07/28/19 12:42 Dose: 9 units Documented by: Insulin Aspart (Novolog Flexpen) 0 units SC TODAY@0000,0400 [facility] Stop: 07/29/19 04:01 Insulin Human NPH (Novolin N Nph) 40 units SC DAILY@0800 [facility] Stop: 08/28/19 07:59 Insulin Human NPH (Novolin N Nph) 30 units SC DAILY@1700 [facility] Stop: 08/27/19 16:59 Ipratropium Cruger (Atrovent 0.02% 0.5mg/2.5ml) 0.5 mg INH Q4R [facility] Stop: 08/26/19 14:59 Last Admin: 07/28/19 11:23 Dose: 0.5 mg Documented by: Isosorbide Mononitrate (Imdur Extended Rel) 30 mg PO QAM [facility] Stop: 08/26/19 08:59 Last Admin: 07/28/19 08:22 Dose: 30 mg Documented by: Levalbuterol HCl (Xopenex 1.25mg/0.5ml Neb) 1.25 mg INH Q4R [facility] Stop: 08/26/19 10:59 Last Admin: 07/28/19 11:23 Dose: 1.25 mg Documented by: Lorazepam (Ativan) 0.5 mg PO Q6 PRN PRN Reason: Anxiety Stop: 08/26/19 02:26 Last Admin: 07/28/19 14:49 Dose: 0.5 mg Documented by: Metoprolol Tartrate (Lopressor) 25 mg PO BID [facility] Stop: 08/26/19 02:26 Last Admin: 07/28/19 08:21 Dose: 25 mg Documented by: Mirtazapine (Remeron Solutab) 45 mg PO HS [facility] Stop: 08/26/19 20:59 Last Admin: 07/27/19 20:37 Dose: 45 mg Documented by: Miscellaneous (Order Awaiting Action) 1 ea N/A QS [facility] Stop: 08/26/19 07:59 Last Admin: 07/28/19 08:35 Dose: Not Given Documented by: Miscellaneous (Carbohydrates For Hypoglycemia) 15 - 30 gm PO PRN PRN PRN Reason: Hypoglycemia Treatment Stop: 08/26/19 02:44 Last Admin: 07/28/19 11:19 Dose: 15 gm Documented by: Miscellaneous Information (Consult Glycemic Management Pharmacy) 1 ea N/A UD PRN PRN Reason: Consult Stop: 08/26/19 02:06 Montelukast Sodium (Singulair) 10 mg PO [facility] Stop: 08/27/19 20:59 Nitroglycerin (Nitrostat) 0.4 mg SL UD PRN PRN Reason: Chest Pain Stop: 08/26/19 02:26 Last Admin: 07/28/19 14:49 Dose: 0.4 mg Documented by: Oxycodone HCl (Roxicodone Immediate Rel) 5 mg PO Q4H PRN PRN Reason: Pain Stop: 08/10/19 02:26 Pantoprazole Sodium (Protonix) 40 mg PO QPM [facility] Stop: 08/26/19 20:59 Last Admin: 07/27/19 20:37 Dose: 40 mg Documented by: Ropinirole HCl (Requip) 1 mg PO [facility] Stop: 08/26/19 20:59 Last Admin: 07/27/19 20:36 Dose: 1 mg Documented by: Tiotropium Cruger (Spiriva) 1 puffs INH QAM [facility] Stop: 08/26/19 13:14 Last Admin: 07/28/19 08:21 Dose: 1 puffs Documented by: Trazodone HCl (Desyrel) 50 mg PO [facility] Stop: 08/26/19 20:59 Last Admin: 07/27/19 20:36 Dose: 50 mg Documented by: (1) Chest pain, unspecified Chest pain type: precordial pain Qualified Code(s): R07.2 - Precordial pain
[2019-07-28] MEDS ORDERED: BUMETANIDE 1 MG in SYRINGE 0 ML IV ONE (16:00)
[2019-07-28] MEDS: INSULIN HUMAN NPH SC SCH (17:27)
[2019-07-28] MEDS: ASPIRIN 81 MG ECTAB PO SCH (19:51)
[2019-07-28] MEDS: MIRTAZAPINE SOLTAB 15 MG PO SCH (19:52)
[2019-07-28] MEDS: TRAZODONE HCL 50 MG TAB PO SCH (19:54)
[2019-07-28] MEDS: MONTELUKAST SODIUM 10 MG TABLET PO SCH (19:54)
[2019-07-28] MEDS: GABAPENTIN 400 MG CAP PO SCH (19:55)
[2019-07-28] MEDS: PANTOprazole 40 MG TAB PO SCH (19:56)
[2019-07-28] MEDS: ROPINIROLE HCL 1 MG TABLET PO SCH (19:56)
[2019-07-29] MEDS: ALBUT/IPRATROP 3MG/0.5MG NEB 3 ML VIAL NEB SCH ×6 (03:29→23:22)
[2019-07-29] MEDS: INSULIN ASPART 100 UNITS/ML 3 ML PEN SC SCH ×6 (03:35→21:26)
[2019-07-29] MEDS: LORazepam 0.5 MG TAB PO PRN ×2 (04:49→12:25)
[2019-07-29] MEDS: methylPREDNISolone 125 MG in SYRINGE 0 ML IV SCH ×3 (06:19→21:29)
[2019-07-29] MEDS: HEPARIN SOD 5,000 UNIT/0.5 ML VIAL SQ SCH ×3 (06:20→21:29)
[2019-07-29 06:26] LABS: Basophils # (auto) 0.01 K/uL (0-0.2); Basophils % (auto) 0.1 %; Hematocrit (blood only) 29.1 % (37-47); Hemoglobin 9.7 g/dL (12.0-16.0); Immature Granulocytes # (auto) 0.05 K/uL (0.00-0.02); Immature Granulocytes % (auto) 0.4 %; Lymphocytes # (auto) 1.69 K/uL (1.2-3.4); Lymphocytes % (auto) 14.2 %; Mean Corpuscular Hgb Conc 33.3 g/dL (32-36); Mean Platelet Volume 9.4 fL (7.4-10.4); Monocytes # (auto) 0.25 K/uL (0.11-0.59); Monocytes % (auto) 2.1 %; Neutrophils # (auto) 9.93 K/uL (1.4-6.5); Neutrophils % (auto) 83.2 %; Platelet Count 187 K/uL (130-400); RDW Coefficient of Variation 14.6 % (11.5-14.5); RDW Standard Deviation 47.7 fL (36.4-46.3); Red Blood Count 3.27 M/uL (4.2-5.4); White Blood Count 11.93 K/uL (4.8-10.8)
[2019-07-29 07:03] LABS: BUN Creatinine Ratio 22.8 (10-20); Calcium 8.3 mg/dl (8.5-10.1); Creatinine Clr Calc Pharmacy 27.5 ml/min; Est GFR (African American) 37.4; Est GFR (Non-African American) 32.2; Magnesium 1.7 mg/dl (1.8-2.4); Potassium 4.5 mmol/L (3.5-5.1)
[2019-07-29] MEDS: IPRATROPIUM BROMIDE NEB SOLN 0.02% 2.5 ML VIAL INH SCH ×4 (07:03→11:35)
[2019-07-29] MEDS: FORMOTEROL 20 MCG/2 ML VIAL NEB SCH ×2 (07:03→18:52)
[2019-07-29] MEDS: LEVALBUTEROL 1.25MG/0.5ML NEB INH SCH ×4 (07:03→11:35)
[2019-07-29] MEDS: BUDESONIDE 0.5 MG/2 ML VIAL (PULMICORT) NEB SCH ×2 (07:03→18:52)
[2019-07-29 07:05] LABS: Phosphorus 4.7 mg/dl (2.5-4.9)
[2019-07-29] MEDS: XYZAL~ORDER AWAITING ACTION SCH ×2 (07:07→07:09)
[2019-07-29] MEDS: ATORVASTATIN 40 MG TAB PO SCH (07:53)
[2019-07-29] MEDS: ISOSORBIDE MONO EXTENDED REL 30 MG TABCR PO SCH (07:53)
[2019-07-29] MEDS: CLOPIDOGREL BISULFATE 75 MG TAB PO SCH (07:53)
[2019-07-29] MEDS: METOPROLOL TARTRATE 25 MG TAB PO SCH ×2 (07:53→21:28)
[2019-07-29] MEDS: AMLODIPINE BESYLATE 5 MG TAB PO SCH (07:54)
[2019-07-29] MEDS: TIOTROPIUM BROMIDE 5 PUFF/90 MCG INH INH SCH (07:54)
[2019-07-29] MEDS: AZITHROMYCIN 250 MG TAB PO SCH (07:55)
[2019-07-29] MEDS: DOXYCYCLINE HYCLATE 100 MG CAP PO SCH ×2 (07:55→21:27)
[2019-07-29] MEDS: INSULIN HUMAN NPH SC SCH ×2 (07:58→17:03)
[2019-07-29] MEDS: LACTATED RINGER'S 1,000 ML IV SCH (08:52)
--- NOTE | 2019-07-29 10:09 | Pulmonology Progress Note ---
Date of Service July 29, 2019 Assessment & Plan (1) Acute exacerbation of chronic obstructive pulmonary disease (COPD): Impression: 78-year-old female with reported history of obstructive lung disease although I cannot find her PFTs in the electronic medical record. She presents with wheezing now and certainly could have an exacerbation of his. She had eosinophilia previously but not on this admission. Given her upper airway wheezing and hoarseness, I wonder about the possibility of vocal cord dysfunction. Recommendations: 1. Obstructive lung disease: Proceeding under the assumption that the patient does have significant obstructive lung disease. IgE normal. We will continue Singulair to her regimen as well as Benadryl and Tessalon as needed for cough. Continue Solu-Medrol 125 every 8. 2. Hypoxemic respiratory failure: Continue supplemental oxygen titrated to keep saturations at or above 88%. 3. Outpatient pulmonary function tests are recommended. 4. Abnormal CT scan: Patient does have a faint area of groundglass opacity in the anterior aspect of the right upper lobe. Radiographic surveillance with a follow-up CT scan in 3 to 6 months is recommended. I suspect the described interstitial changes likely represent atelectasis. 5. As there is a possibility of vocal cord dysfunction, laryngoscopy may be warranted. We will discuss if this is feasible here with respiratory therapy. Speech therapy consultation may also be beneficial. Will provide low-dose benzodiazepines for anxiolysis. (2) Dyspnea: (3) Acute hypoxemic respiratory failure: (4) Abnormal CT scan of lung: Subjective Patient feels better compared to yesterday but continues to have paroxysms of cough and shortness of breath. She states she was able to ambulate yesterday without significant difficulty. When I saw her this morning, she continues to have episodic paroxysms of cough. These are associated with hoarseness and some inspiratory stridor. She has never had evaluation of her vocal cords previously. Review of Systems Review of Systems: Unchanged from prior Physical Exam Constitutional: WD/WN, vitals as above Neck: trachea midline, no thyromegaly Respiratory: Few coarse rhonchi and wheezing bilaterally but this appears to be transmitted primarily from the upper airway. Cardiovascular: RRR, no murmur, no edema Gastrointestinal (Abdomen): normal bowel sounds, soft, nontender, no hepatosplenomegaly Musculoskeletal: Extremities: extremities normal to inspection Skin: no rashes, warm and dry Neurologic: Nonfocal exam Lymphatic: no cervical lymphadenopathy Results & Data Vital Signs (Past 12 Hours) Vital Signs Temp Pulse Pulse Resp BP BP Pulse Ox 07/29/19 07:32 36.5 C 84 20 127/69 99 07/29/19 07:03 86 20 96 07/29/19 06:45 82 07/29/19 03:45 36.7 C 78 24 136/80 98 07/29/19 03:29 90 20 97 07/29/19 00:00 36.6 C 81 21 139/74 97 07/28/19 23:26 80 96 Laboratory Results 07/29/19 06:10 07/29/19 06:10 PG Care Time/CCT Total # of Minutes Spent Total Time Spent with Patient: Total time spent is greater than 50% in coordination of care (as documented) at patient's floor/unit and/or counseling patient:
[2019-07-29] MEDS ORDERED: INSULIN HUMAN REGULAR PER UNIT 7 UNITS in SYRINGE 6.93 ML IV ONE (12:15)
--- NOTE | 2019-07-29 14:39 | Pharmacy Report ---
Glycemic Control Progress Note - Date of Service July 29, 2019 - Scope Glycemic Pharmacist consulted for glycemic control to write orders per [facility] inpatient glycemic control protocol. - Objective Accuchecks BSG(last 24 hours):: 07/28/19 07/28/19 07/28/19 16:46 20:00 23:48 Glucose POC Glucose 141 H 171 H 175 H 07/29/19 07/29/19 07/29/19 03:30 06:10 07:15 Glucose 236 H POC Glucose 219 H 236 H 07/29/19 07/29/19 11:25 11:28 Glucose POC Glucose 345 H* 323 H* HbA1c:: Hemoglobin A1c 10.4 % (4.5-5.6) H 07/27/19 01:17 - Recent Pertinent Medications The patient is currently receiving: * Basal insulin: NPH 40 units IN THE MORNING AND 30 UNITS AT DINNERTIME * Correctional Insulin: Novolog Correction per scale ACHS Goal Range: Low 110 mg/dL - High 140 mg/dL Correction Factor: 10 mg/dL/unit * Prandial insulin: Per carb ratio of 1 unit per 3 grams CHO consumed - Outpatient Anti-Diabetic Meds NOVOLIN 70/30 --- 55 UNITS IN AM AND 35 UNITS IN THE EVENING - Assessment & Plan ASSESSMENT: * See progress note from 07/27/19 for more background info, in short: * Pt receiving SQ basal bolus insulin regimen for hyperglycemia secondary to baseline DM (outpatient regimen on hold),stress/infection (pulmonary infection currently on zithromax and doxycycline), and Solu-Medrol 125 mg IV q8H * Patient is currently receiving an average of 113 units of insulin per day * 65 units of basal insulin * 48 units of prandial/correctional insulin * BSGs ranging 82 - 175 mg/dl over the past 24hrs * Changes needed to insulin regimen: * AM Fasting BSG = 236 mg/dl. This is above goal range for patient based on inpatient targets and co-morbidities. Historically whenever steroids are cut, the patient's blood sugars drop rapidly. For this reason, I am concerned about increasing her NPH. I believe if patient continues to be high then would pursue an insulin infusion. * Post-prandial BSGs are elevated. Tightened CF this morning for lunch since patient trended upwards. With hyperglycemia from steroids, the goal if 60/40 split with 60% bolus and 40% basal insulin. After lunch patient has received 121 units of SQ insulin...... this is more than she received yesterday as the full effect of steroids is being seen. However, we are achieving a more bolus heavy regimen. Patient also received an IV bolus at lunchtime for blood sugar over 300 mg/dL. * Total daily dose = >150 units. PLAN FOR INPATIENT GLYCEMIC CONTROL: * Continuing NPH 40 units in the morning and 30 units in the evening * Continuing / changing correction factor to [] mg/dl/unit * Continuing / changing carb ratio to 1 unit per [] grams CHO consumed * Continuing / changing goal range to Low [] mg/dL - High [] mg/dL RECOMMENDATIONS FOR DISCHARGE: * tbd based upon what patient is discharged on? * Please note that the plan above was derived based on current level of insulin resistance and hospital stress. These recommendations are appropriate for inpatient admission only. Plan of care upon discharge will need to be reassessed to avoid potential outpatient hypo/hyperglycemia. Thank you.
--- NOTE | 2019-07-29 14:57 | Hospitalist Progress Note ---
Date of Service July 29, 2019 Assessment & Plan (1) COPD exacerbation: Secondary to complicated bronchitis without any evidence of pneumonia Possible sepsis at presentation Has been on regular bronchodilators, intravenous Solu-Medrol and IV antibiotics She is very anxious and having more shortness of breath with cough Appreciate pulmonary input and recommendation Steroid dose has been increased and has been getting regular cough suppressant Clinically not any better Will get a stat chest x-ray to rule out any fluid overload/pulmonary edema Received 1 mg of bumetanide IV stat and IV fluid discontinued Clinically much better today 07/29 We will continue high-dose of steroid for now Hypertension elevated secondary discomfort Blood pressure seems to be controlled ARF on CRI secondary to illness Received adequate intravenous fluid initially mostly for suspected sepsis We will monitor renal function Anxiety/mood disorder, at baseline as per patient Symptom more anxious Received Ativan orally Will give morphine 2 mg IV stat for anxiety and shortness of breath Steroid-induced hyperglycemia Appreciate pharmacy input and recommendation (2) Acute hypoxemic respiratory failure: Secondary to have a Continue nasal cannula oxygen Saturating well with 2 L (3) Chest pain, unspecified: Presented with chest pain Initial troponin was elevated Was evaluated by emergency dept tech Echo: Normal LV systolic function without regional wall motion abnormality with EF of 60 to 65%, small circumferential pericardial effusion without hemodynamic significance. Stranding is present to suggest chronicity No ACS We will continue current medications No more chest pain and/or palpitation (4) LBBB (left bundle branch block): Chronic left bundle branch block (5) Elevated troponin I level: As above No ACS (6) Seasonal allergies: Condition is worse with increasing allergic symptoms especially cough Will observe DVT prophylax Subcu heparin CODE STATUS Full (7) Diabetes mellitus with hyperglycemia: Her blood sugar is elevated Pharmacy consult Blood sugar is going to be high due to use of high-dose of steroid We will continue current treatment May need insulin drip Subjective 07/28 The patient was seen and examined in telemetry unit on 07/27 and today She has been complaining of more shortness of breath with cough and wheezing She is very anxious and restless and wants to go home Condition even got worse at around 3:10 PM 07/29 The patient was seen and examined in telemetry unit She is feeling much better today and she is ashamed of herself with the deterioration of her condition yesterday Still has cough, no fever and chills Denies any chest pain Review of Systems Review of Systems: All systems reviewed and unremarkable except as noted below Constitutional: + weakness and + problem reported (Very anxious with increasing shortness of breath and cough) Respiratory: + cough, + chest congestion, + dyspnea, + pain with cough and + wheezing Cardiovascular: + chest pain (Likely secondary to cough) Gastrointestinal: no abdominal pain Psychiatric: + anxiety Physical Exam Physical Exam: Sitting in a chair out of bed with moderate shortness of breath and cough Constitutional: + acute distress (Shortness of breath and cough) and + ill appearing Respiratory: + respiratory distress, + labored breathing, + uses accessory muscles and + cough Auscultation: + diminished lung sounds and + wheezes (diffuse); no crackles Cardiovascular: Rate/Rhythm: regular rate and regular rhythm Gastrointestinal (Abdomen): Inspection/Auscultation: abdomen normal to inspection and normal bowel sounds Percussion/Palpation: abdomen soft Neurologic: moves all extremities Very anxious Psychiatric: Affect: + anxious affect Mood: + anxious mood and + irritable mood Lymphatic: no cervical or axillary lymphadenopathy Results & Data Vital Signs (Past 12 Hours) Vital Signs Temp Pulse Pulse Resp BP BP Pulse Ox 07/29/19 11:12 72 18 92 07/29/19 11:00 36.4 C L 72 20 148/73 H 92 07/29/19 07:32 36.5 C 84 20 127/69 99 07/29/19 07:03 86 20 96 07/29/19 06:45 82 07/29/19 03:45 36.7 C 78 24 136/80 98 07/29/19 03:29 90 20 97 Laboratory Results Short CBC 07/29/19 Range/Units 06:10 WBC 11.93 H (4.8-10.8) K/uL Hgb 9.7 L (12.0-16.0) g/dL Hct 29.1 L (37-47) % Plt Count 187 (130-400) K/uL BMP 07/29/19 06:10 Sodium 140 Potassium 4.5 Chloride 109 H Carbon Dioxide 22 BUN 35 H D Creatinine 1.53 H D Glucose 236 H Calcium 8.3 L Medications Administered Current Inpatient Medications Acetaminophen (Tylenol) 325 mg PO Q6H PRN PRN Reason: Pain or Fever Stop: 08/26/19 02:26 Last Admin: 07/27/19 04:38 Dose: 325 mg Documented by: Albuterol (Duoneb) 3 ml NEB Q4R [facility] Stop: 08/27/19 14:59 Last Admin: 07/29/19 11:11 Dose: 3 ml Documented by: Amlodipine Besylate (Norvasc) 10 mg PO QAM [facility] Stop: 08/26/19 08:59 Last Admin: 07/29/19 07:54 Dose: 10 mg Documented by: Aspirin (Ecotrin Ectab) 81 mg PO QPM [facility] Stop: 08/26/19 20:59 Last Admin: 07/28/19 19:51 Dose: 81 mg Documented by: Atorvastatin Calcium (Lipitor) 40 mg PO QAM [facility] Stop: 08/26/19 08:59 Last Admin: 07/29/19 07:53 Dose: 40 mg Documented by: Azithromycin (Zithromax) 250 mg PO QAM [facility] Stop: 08/03/19 13:14 Last Admin: 07/29/19 07:55 Dose: 250 mg Documented by: Benzonatate (Tessalon Perle) 100 mg PO TID PRN PRN Reason: Cough Stop: 08/26/19 07:56 Last Admin: 07/27/19 20:36 Dose: 100 mg Documented by: Budesonide (Pulmicort Respules) 0.5 mg NEB BIDR [facility] Stop: 08/26/19 18:59 Last Admin: 07/29/19 07:03 Dose: 0.5 mg Documented by: Clopidogrel Bisulfate (Plavix) 75 mg PO QAM [facility] Stop: 08/26/19 08:59 Last Admin: 07/29/19 07:53 Dose: 75 mg Documented by: Dextrose (Dextrose 50%) 25 - 50 ml IV UD PRN; Protocol PRN Reason: Hypoglycemia Protocol Stop: 08/26/19 02:44 Dicyclomine HCl (Bentyl) 10 mg PO TID PRN PRN Reason: ABDOMINAL CRAMPS Stop: 08/26/19 02:26 Diphenhydramine HCl (Benadryl Capsule) 50 mg PO Q8 PRN PRN Reason: Cough Stop: 08/27/19 11:32 Last Admin: 07/28/19 12:34 Dose: 50 mg Documented by: Doxycycline Hyclate (Vibramycin) 100 mg PO BID [facility] Stop: 08/03/19 08:59 Last Admin: 07/29/19 07:55 Dose: 100 mg Documented by: Formoterol Fumarate (Perforomist) 20 mcg NEB BIDR [facility] Stop: 08/26/19 18:59 Last Admin: 07/29/19 07:03 Dose: 20 mcg Documented by: Gabapentin (Neurontin) 800 mg PO HS [facility] Stop: 08/26/19 20:59 Last Admin: 07/28/19 19:55 Dose: 800 mg Documented by: Glucagon (Glucagen) 1 mg IM UD PRN; Protocol PRN Reason: Hypoglycemia Protocol Stop: 08/26/19 02:44 Glucose (Glucose 40%) 15 - 30 gm PO UD PRN; Protocol PRN Reason: Hypoglycemia Protocol Stop: 08/26/19 02:44 Glucose (Dex4 Glucose) 4 - 8 tabs PO UD PRN; Protocol PRN Reason: Hypoglycemia Protocol Stop: 08/26/19 02:44 Guaifenesin (Robitussin Sugar Free) 200 mg PO Q6H PRN PRN Reason: Cough Stop: 08/26/19 05:55 Last Admin: 07/27/19 21:42 Dose: 200 mg Documented by: Heparin Sodium (Porcine) (Heparin Sodium (Porcine)) 5,000 units SQ Q8 [facility] Stop: 08/26/19 05:59 Last Admin: 07/29/19 14:03 Dose: 5,000 units Documented by: Heparin Sodium (Porcine) (Heparin Sod 100 Unit/Ml Flush) 5 ml FLUSH PRN PRN PRN Reason: Flush Stop: 08/26/19 22:59 Hydromorphone HCl (Dilaudid) 0.25 mg IV Q6H PRN PRN Reason: Pain Stop: 08/10/19 02:26 Promethazine HCl 12.5 mg/ (Sodium Chloride) 50.5 mls @ 202 mls/hr IV Q6H PRN PRN Reason: Nausea And Vomiting Stop: 08/26/19 02:26 Methylprednisolone 125 mg/ (Syringe) 2 mls @ 1.5 mls/min IV Q8 [facility] Stop: 08/01/19 13:59 Last Admin: 07/29/19 14:03 Dose: 1.5 mls/min Documented by: Insulin Aspart (Novolog Flexpen) 0 units SC ACHS [facility] Stop: 08/26/19 07:29 Last Admin: 07/29/19 14:31 Dose: 4 units Documented by: Insulin Aspart (Novolog Flexpen) 0 units SC 0000,0400 [facility] Stop: 07/30/19 04:01 Insulin Human NPH (Novolin N Nph) 40 units SC DAILY@0800 [facility] Stop: 08/28/19 07:59 Last Admin: 07/29/19 07:58 Dose: 40 units Documented by: Insulin Human NPH (Novolin N Nph) 30 units SC DAILY@1700 [facility] Stop: 08/27/19 16:59 Last Admin: 07/28/19 17:27 Dose: 30 units Documented by: Isosorbide Mononitrate (Imdur Extended Rel) 30 mg PO QAM [facility] Stop: 08/26/19 08:59 Last Admin: 07/29/19 07:53 Dose: 30 mg Documented by: Lorazepam (Ativan) 0.5 mg PO Q6 PRN PRN Reason: Anxiety Stop: 08/26/19 02:26 Last Admin: 07/29/19 12:25 Dose: 0.5 mg Documented by: Metoprolol Tartrate (Lopressor) 25 mg PO BID [facility] Stop: 08/26/19 02:26 Last Admin: 07/29/19 07:53 Dose: 25 mg Documented by: Mirtazapine (Remeron Solutab) 45 mg PO HS [facility] Stop: 08/26/19 20:59 Last Admin: 07/28/19 19:52 Dose: 45 mg Documented by: Miscellaneous (Carbohydrates For Hypoglycemia) 15 - 30 gm PO PRN PRN PRN Reason: Hypoglycemia Treatment Stop: 08/26/19 02:44 Last Admin: 07/28/19 11:19 Dose: 15 gm Documented by: Miscellaneous Information (Consult Glycemic Management Pharmacy) 1 ea N/A UD PRN PRN Reason: Consult Stop: 08/26/19 02:06 Montelukast Sodium (Singulair) 10 mg PO HS [facility] Stop: 08/27/19 20:59 Last Admin: 07/28/19 19:54 Dose: 10 mg Documented by: Nitroglycerin (Nitrostat) 0.4 mg SL UD PRN PRN Reason: Chest Pain Stop: 08/26/19 02:26 Last Admin: 07/28/19 14:49 Dose: 0.4 mg Documented by: Oxycodone HCl (Roxicodone Immediate Rel) 5 mg PO Q4H PRN PRN Reason: Pain Stop: 08/10/19 02:26 Pantoprazole Sodium (Protonix) 40 mg PO QPM [facility] Stop: 08/26/19 20:59 Last Admin: 07/28/19 19:56 Dose: 40 mg Documented by: Ropinirole HCl (Requip) 1 mg PO HS [facility] Stop: 08/26/19 20:59 Last Admin: 07/28/19 19:56 Dose: 1 mg Documented by: Tiotropium [place] (Spiriva) 1 puffs INH QAM [facility] Stop: 08/26/19 13:14 Last Admin: 07/29/19 07:54 Dose: 1 puffs Documented by: Trazodone HCl (Desyrel) 50 mg PO HS [facility] Stop: 08/26/19 20:59 Last Admin: 07/28/19 19:54 Dose: 50 mg Documented by: (1) Chest pain, unspecified Chest pain type: precordial pain Qualified Code(s): R07.2 - Precordial pain
[2019-07-29] MEDS ORDERED: ALPRAZolam 0.25 MG TABLET PO PRN (16:11)
[2019-07-29] MEDS ORDERED: LORazepam 0.5 MG/1 ML VIAL IV STA (18:23)
[2019-07-29] MEDS ORDERED: LORazepam 2 MG/4 ML VIAL ONE (18:27)
[2019-07-29] MEDS: ASPIRIN 81 MG ECTAB PO SCH (21:26)
[2019-07-29] MEDS: MIRTAZAPINE SOLTAB 15 MG PO SCH (21:27)
[2019-07-29] MEDS: MONTELUKAST SODIUM 10 MG TABLET PO SCH (21:27)
[2019-07-29] MEDS: GABAPENTIN 400 MG CAP PO SCH (21:27)
[2019-07-29] MEDS: TRAZODONE HCL 50 MG TAB PO SCH (21:28)
[2019-07-29] MEDS: PANTOprazole 40 MG TAB PO SCH (21:28)
[2019-07-29] MEDS: ROPINIROLE HCL 1 MG TABLET PO SCH (21:29)
[2019-07-29] MEDS: ACETAMINOPHEN 325 MG TAB PO PRN (21:53)
[2019-07-30] MEDS: INSULIN ASPART 100 UNITS/ML 3 ML PEN SC SCH ×6 (00:29→20:30)
[2019-07-30] MEDS: ALBUT/IPRATROP 3MG/0.5MG NEB 3 ML VIAL NEB SCH ×6 (03:18→23:30)
[2019-07-30] MEDS: HEPARIN SOD 5,000 UNIT/0.5 ML VIAL SQ SCH ×3 (06:31→20:32)
[2019-07-30] MEDS: methylPREDNISolone 125 MG in SYRINGE 0 ML IV SCH ×3 (06:31→20:30)
[2019-07-30 06:35] LABS: Hematocrit (blood only) 28.6 % (37-47); Hemoglobin 9.8 g/dL (12.0-16.0); Immature Granulocytes # (auto) 0.07 K/uL (0.00-0.02); Immature Granulocytes % (auto) 0.6 %; Lymphocytes # (auto) 1.52 K/uL (1.2-3.4); Lymphocytes % (auto) 12.8 %; Mean Corpuscular Hgb Conc 34.3 g/dL (32-36); Mean Corpuscular Volume 88.3 fL (80-100); Mean Platelet Volume 9.6 fL (7.4-10.4); Monocytes # (auto) 0.31 K/uL (0.11-0.59); Monocytes % (auto) 2.6 %; Neutrophils # (auto) 9.98 K/uL (1.4-6.5); Platelet Count 191 K/uL (130-400); RDW Coefficient of Variation 14.8 % (11.5-14.5); RDW Standard Deviation 47.6 fL (36.4-46.3); Red Blood Count 3.24 M/uL (4.2-5.4); White Blood Count 11.88 K/uL (4.8-10.8)
[2019-07-30] MEDS: FORMOTEROL 20 MCG/2 ML VIAL NEB SCH ×2 (07:08→19:40)
[2019-07-30] MEDS: BUDESONIDE 0.5 MG/2 ML VIAL (PULMICORT) NEB SCH ×2 (07:08→19:40)
[2019-07-30 07:12] LABS: Potassium 4.7 mmol/L (3.5-5.1)
[2019-07-30 07:13] LABS: BUN Creatinine Ratio 27.9 (10-20); Calcium 8.1 mg/dl (8.5-10.1); Creatinine Clr Calc Pharmacy 27.5 ml/min; Est GFR (African American) 37.1
[2019-07-30] MEDS ORDERED: INSULIN HUMAN NPH SC SCH (08:00)
[2019-07-30] MEDS: ATORVASTATIN 40 MG TAB PO SCH (08:20)
[2019-07-30] MEDS: DOXYCYCLINE HYCLATE 100 MG CAP PO SCH ×2 (08:20→20:31)
[2019-07-30] MEDS: AZITHROMYCIN 250 MG TAB PO SCH (08:20)
[2019-07-30] MEDS: INSULIN HUMAN NPH SC SCH ×2 (08:20→17:35)
[2019-07-30] MEDS: METOPROLOL TARTRATE 25 MG TAB PO SCH ×2 (08:20→20:33)
[2019-07-30] MEDS: ISOSORBIDE MONO EXTENDED REL 30 MG TABCR PO SCH (08:21)
[2019-07-30] MEDS: AMLODIPINE BESYLATE 5 MG TAB PO SCH (08:21)
[2019-07-30] MEDS: CLOPIDOGREL BISULFATE 75 MG TAB PO SCH (08:21)
[2019-07-30] MEDS: TIOTROPIUM BROMIDE 5 PUFF/90 MCG INH INH SCH (08:21)
[2019-07-30] MEDS: BENZONATATE 100 MG CAPSULE PO PRN (09:29)
[2019-07-30] MEDS: guaiFENesin SUGAR FREE 200 MG/10 ML UDC PO PRN (09:29)
--- NOTE | 2019-07-30 10:13 | Pulmonology Progress Note ---
Date of Service July 30, 2019 Assessment & Plan (1) Acute exacerbation of chronic obstructive pulmonary disease (COPD): Impression: 78-year-old female with reported history of obstructive lung disease although I cannot find her PFTs in the electronic medical record. She presents with wheezing now and certainly could have an exacerbation of his. She had eosinophilia previously but not on this admission. I suspect there is a significant component of potential vocal cord dysfunction. Recommendations: 1. Obstructive lung disease: Proceeding under the assumption that the patient does have significant obstructive lung disease. IgE normal. We will continue Singulair to her regimen as well as Benadryl and Tessalon as needed for cough. Continue Solu-Medrol 125 every 8. 2. Probable vocal cord dysfunction. Briefly discussed with ENT. It is unclear whether speech therapy here has an interest or specialty training in evaluating and managing with VCD. According to otolaryngology, the majority of these patients are referred to a specialized center in [place] at [facility]. This may be a reasonable approach as an outpatient setting. For now we will try empiric CPAP at night. She can also use this as needed during the day I advised the patient that this is not a life-threatening diagnosis however I am afraid that if she goes home before treatment plan is in place, we may end up right back where we have started. Continue as needed anxiolytics. 3. Outpatient pulmonary function tests are recommended. 4. Abnormal CT scan: Patient does have a faint area of groundglass opacity in the anterior aspect of the right upper lobe. Radiographic surveillance with a follow-up CT scan in 3 to 6 months is recommended. I suspect the described interstitial changes likely represent atelectasis. 5. If she continues to have issues, we will see if respiratory therapy has heliox available. May also consider laryngoscopy but ideally would like to not do this on the weekend. Finding the appropriate equipment yesterday was unsuccessful. (2) Dyspnea: (3) Acute hypoxemic respiratory failure: (4) Abnormal CT scan of lung: Subjective Patient was seen and examined. I initially entered the room and the patient was sleeping. She was breathing comfortably but did have some snoring. There was no wheezing and no accessory breath sounds. When the patient was awakened, she went into paroxysms of cough wheezing and shortness of breath and had to sit upright. Overall the patient feels that she is making some progress but she would like to go home. She is concerned about the cost of her hospitalization. Review of Systems Review of Systems: Unchanged from prior Physical Exam Constitutional: WD/WN, vitals as above Neck: trachea midline, no thyromegaly Cardiovascular: RRR, no murmur, no edema Gastrointestinal (Abdomen): normal bowel sounds, soft, nontender, no hepatosplenomegaly Musculoskeletal: Extremities: extremities normal to inspection Skin: no rashes, warm and dry Lymphatic: no cervical lymphadenopathy Results & Data Vital Signs (Past 12 Hours) Vital Signs Temp Pulse Pulse Resp BP Pulse Ox 07/30/19 08:23 91 H 151/73 H 07/30/19 07:08 81 20 98 07/30/19 06:43 36.6 C 75 25 H 151/74 H 98 07/30/19 04:32 36.6 C 82 22 114/63 95 07/30/19 03:18 72 16 97 07/30/19 00:00 85 07/29/19 23:33 36.5 C 80 22 143/70 H 99 07/29/19 23:22 92 H 16 97 PG Care Time/CCT Total # of Minutes Spent Total Time Spent with Patient: Total time spent is greater than 50% in coordination of care (as documented) at patient's floor/unit and/or counseling patient:
[2019-07-30] MEDS ORDERED: INSULIN HUMAN REGULAR PER UNIT 7 UNITS in SYRINGE 6.93 ML IV ONE (11:45)
--- NOTE | 2019-07-30 14:57 | Hospitalist Progress Note ---
Date of Service July 30, 2019 Assessment & Plan (1) COPD exacerbation: Secondary to complicated bronchitis without any evidence of pneumonia Possible sepsis at presentation Has been on regular bronchodilators, intravenous Solu-Medrol and IV antibiotics She is very anxious and having more shortness of breath with cough Appreciate pulmonary input and recommendation Steroid dose has been increased and has been getting regular cough suppressant Clinically not any better Will get a stat chest x-ray to rule out any fluid overload/pulmonary edema Received 1 mg of bumetanide IV stat and IV fluid discontinued Clinically much better today 07/29 We will continue high-dose of steroid for now; 125 mg IV every 8h Excessive cough/vocal cord dysfunction Especially when she starts talking and in presence of someone in the room Having some bouts with increasing shortness of breath May have vocal cord dysfunction For now will try Hycodan cough syrup Will need to have outpatient follow-up with specialist to rule out vocal cord dysfunction Hypertension elevated secondary discomfort Blood pressure seems to be controlled ARF on CRI secondary to illness Received adequate intravenous fluid initially mostly for suspected sepsis We will monitor renal function Anxiety/mood disorder, at baseline as per patient Symptom more anxious Received Ativan orally Will give morphine 2 mg IV stat for anxiety and shortness of breath Steroid-induced hyperglycemia Appreciate pharmacy input and recommendation (2) Acute hypoxemic respiratory failure: Secondary to have a Continue nasal cannula oxygen Saturating well with 2 L (3) Chest pain, unspecified: Presented with chest pain Initial troponin was elevated Was evaluated by senior user experience architect Echo: Normal LV systolic function without regional wall motion abnormality with EF of 60 to 65%, small circumferential pericardial effusion without hemodynamic significance. Stranding is present to suggest chronicity No ACS We will continue current medications No more chest pain and/or palpitation (4) LBBB (left bundle branch block): Chronic left bundle branch block (5) Elevated troponin I level: As above No ACS (6) Seasonal allergies: Condition is worse with increasing allergic symptoms especially cough Will observe DVT prophylax Subcu heparin CODE STATUS Full (7) Diabetes mellitus with hyperglycemia: Her blood sugar is elevated Pharmacy consult Blood sugar is going to be high due to use of high-dose of steroid We will continue current treatment May need insulin drip Subjective 07/28 The patient was seen and examined in telemetry unit on 07/27 and today She has been complaining of more shortness of breath with cough and wheezing She is very anxious and restless and wants to go home Condition even got worse at around 3:10 PM 07/29 The patient was seen and examined in telemetry unit She is feeling much better today and she is ashamed of herself with the deterioration of her condition yesterday Still has cough, no fever and chills Denies any chest pain 07/30 Patient was seen and examined in telemetry unit She has been stable at rest but as soon as some of the enters into her room starts coughing and becomes very short of breath Cough has been nonproductive Denies any chest pain and/or palpitation She has been very anxious and wants to go home Review of Systems Review of Systems: All systems reviewed and unremarkable except as noted below Constitutional: + weakness and + problem reported (Very anxious with increasing shortness of breath and cough especially in the presence of someone in the room) Respiratory: + cough, + chest congestion, + dyspnea, + pain with cough and + wheezing Cardiovascular: + chest pain (Likely secondary to cough) Neurologic: + generalized weakness Psychiatric: + irritability and + anxiety Physical Exam Physical Exam: Sitting on a chair with ongoing cough and shortness of breath Constitutional: + acute distress (Shortness of breath and cough) and + ill appearing Respiratory: + respiratory distress, + labored breathing, + uses accessory muscles and + cough Auscultation: + diminished lung sounds and + wheezes (diffuse); no crackles Cardiovascular: Rate/Rhythm: regular rate and regular rhythm Gastrointestinal (Abdomen): Inspection/Auscultation: abdomen normal to inspection and normal bowel sounds Percussion/Palpation: abdomen soft Neurologic: moves all extremities; no focal motor deficits Very anxious Psychiatric: Affect: + anxious affect Mood: + anxious mood and + irritable mood Lymphatic: no cervical or axillary lymphadenopathy Results & Data Vital Signs (Past 12 Hours) Vital Signs Temp Pulse Resp BP Pulse Ox 07/30/19 12:09 78 18 93 07/30/19 11:24 36.5 C 77 18 121/73 97 07/30/19 08:23 91 H 151/73 H 07/30/19 07:08 81 20 98 07/30/19 06:43 36.6 C 75 25 H 151/74 H 98 07/30/19 04:32 36.6 C 82 22 114/63 95 07/30/19 03:18 72 16 97 Laboratory Results Short CBC 07/30/19 Range/Units 06:10 WBC 11.88 H (4.8-10.8) K/uL Hgb 9.8 L (12.0-16.0) g/dL Hct 28.6 L (37-47) % Plt Count 191 (130-400) K/uL [facility] 07/30/19 06:10 Sodium 143 Potassium 4.7 Chloride 113 H Carbon Dioxide 24 BUN 43 H Creatinine 1.54 H Glucose 114 H Calcium 8.1 L Medications Administered Current Inpatient Medications Acetaminophen (Tylenol) 325 mg PO Q6H PRN PRN Reason: Pain or Fever Stop: 08/26/19 02:26 Last Admin: 07/29/19 21:53 Dose: 325 mg Documented by: Albuterol (Duoneb) 3 ml NEB Q4R [facility] Stop: 08/27/19 14:59 Last Admin: 07/30/19 12:09 Dose: 3 ml Documented by: Alprazolam (Xanax) 0.25 mg PO Q6H PRN PRN Reason: cough, anxiety Stop: 08/28/19 16:10 Amlodipine Besylate (Norvasc) [facility] [place] Stop: 08/26/19 08:59 Last Admin: 07/30/19 08:21 Dose: 10 mg Documented by: Aspirin (Ecotrin Ectab) 81 mg PO QPM [facility] Stop: 08/26/19 20:59 Last Admin: 07/29/19 21:26 Dose: 81 mg Documented by: Atorvastatin Calcium (Lipitor) 40 mg PO QAM [facility] Stop: 08/26/19 08:59 Last Admin: 07/30/19 08:20 Dose: 40 mg Documented by: Azithromycin (Zithromax) 250 mg [facility] [place] Stop: 08/03/19 13:14 Last Admin: 07/30/19 08:20 Dose: 250 mg Documented by: Budesonide (Pulmicort Respules) 0.5 mg NEB BIDR [facility] Stop: 08/26/19 18:59 Last Admin: 07/30/19 07:08 Dose: 0.5 mg Documented by: Clopidogrel Bisulfate (Plavix) 75 mg PO QAM [facility] Stop: 08/26/19 08:59 Last Admin: 07/30/19 08:21 Dose: 75 mg Documented by: Dextrose (Dextrose 50%) 25 - 50 ml IV UD PRN; Protocol PRN Reason: Hypoglycemia Protocol Stop: 08/26/19 02:44 Dicyclomine HCl (Bentyl) 10 mg PO TID PRN PRN Reason: ABDOMINAL CRAMPS Stop: 08/26/19 02:26 Diphenhydramine HCl (Benadryl Capsule) 50 mg PO Q8 PRN PRN Reason: Cough Stop: 08/27/19 11:32 Last Admin: 07/29/19 21:56 Dose: 50 mg Documented by: Doxycycline Hyclate (Vibramycin) 100 mg PO BID [facility] Stop: 08/03/19 08:59 Last Admin: 07/30/19 08:20 Dose: 100 mg Documented by: Formoterol Fumarate (Perforomist) 20 mcg NEB BIDR [facility] Stop: 08/26/19 18:59 Last Admin: 07/30/19 07:08 Dose: 20 mcg Documented by: Gabapentin (Neurontin) 800 mg PO HS [facility] Stop: 08/26/19 20:59 Last Admin: 07/29/19 21:27 Dose: 800 mg Documented by: Glucagon (Glucagen) 1 mg IM UD PRN; Protocol PRN Reason: Hypoglycemia Protocol Stop: 08/26/19 02:44 Glucose (Glucose 40%) 15 - 30 gm PO UD PRN; Protocol PRN Reason: Hypoglycemia Protocol Stop: 08/26/19 02:44 Glucose (Dex4 Glucose) 4 - 8 tabs PO UD PRN; Protocol PRN Reason: Hypoglycemia Protocol Stop: 08/26/19 02:44 Heparin Sodium (Porcine) (Heparin Sodium (Porcine)) 5,000 units SQ Q8 [facility] Stop: 08/26/19 05:59 Last Admin: 07/30/19 14:37 Dose: 5,000 units Documented by: Heparin Sodium (Porcine) (Heparin Sod 100 Unit/Ml Flush) 5 ml FLUSH PRN PRN PRN Reason: Flush Stop: 08/26/19 22:59 Hydrocodone Bit/Homatropine Methylb (Hycodan) 5 ml PO Q6H PRN PRN Reason: Cough Stop: 08/13/19 12:34 Hydromorphone HCl (Dilaudid) 0.25 mg IV Q6H PRN PRN Reason: Pain Stop: 08/10/19 02:26 Promethazine HCl 12.5 mg/ (Sodium Chloride) 50.5 mls @ 202 mls/hr IV Q6H PRN PRN Reason: Nausea And Vomiting Stop: 08/26/19 02:26 Methylprednisolone 125 mg/ (Syringe) 2 mls @ 1.5 mls/min IV Q8 [facility] Stop: 08/01/19 13:59 Last Admin: 07/30/19 14:36 Dose: 1.5 mls/min Documented by: Insulin Aspart (Novolog Flexpen) 0 units SC ACHS [facility] Stop: 08/26/19 07:29 Last Admin: 07/30/19 11:51 Dose: 48 units Documented by: Insulin Human NPH (Novolin N Nph) 30 units SC DAILY@1700 [facility] Stop: 08/27/19 16:59 Last Admin: 07/29/19 17:03 Dose: 30 units Documented by: Insulin Human NPH (Novolin N Nph) 45 units SC DAILY@0800 [facility] Stop: 08/30/19 07:59 Isosorbide Mononitrate (Imdur Extended Rel) 30 mg PO QAM [facility] Stop: 08/26/19 08:59 Last Admin: 07/30/19 08:21 Dose: 30 mg Documented by: Lorazepam (Ativan) 0.5 mg PO Q6 PRN PRN Reason: Anxiety Stop: 08/26/19 02:26 Last Admin: 07/29/19 12:25 Dose: 0.5 mg Documented by: Metoprolol Tartrate (Lopressor) 25 mg PO BID [facility] Stop: 08/26/19 02:26 Last Admin: 07/30/19 08:20 Dose: 25 mg Documented by: Mirtazapine (Remeron Solutab) 45 mg PO [facility] Stop: 08/26/19 20:59 Last Admin: 07/29/19 21:27 Dose: 45 mg Documented by: Miscellaneous (Carbohydrates For Hypoglycemia) 15 - 30 gm PO PRN PRN PRN Reason: Hypoglycemia Treatment Stop: 08/26/19 02:44 Last Admin: 07/28/19 11:19 Dose: 15 gm Documented by: Miscellaneous Information (Consult Glycemic Management Pharmacy) 1 ea N/A UD PRN PRN Reason: Consult Stop: 08/26/19 02:06 Montelukast Sodium (Singulair) 10 mg PO [facility] Stop: 08/27/19 20:59 Last Admin: 07/29/19 21:27 Dose: 10 mg Documented by: Nitroglycerin (Nitrostat) 0.4 mg SL UD PRN PRN Reason: Chest Pain Stop: 08/26/19 02:26 Last Admin: 07/28/19 14:49 Dose: 0.4 mg Documented by: Oxycodone HCl (Roxicodone Immediate Rel) 5 mg PO Q4H PRN PRN Reason: Pain Stop: 08/10/19 02:26 Pantoprazole Sodium (Protonix) 40 mg PO QPM [facility] Stop: 08/26/19 20:59 Last Admin: 07/29/19 21:28 Dose: 40 mg Documented by: Ropinirole HCl (Requip) 1 mg PO [facility] Stop: 08/26/19 20:59 Last Admin: 07/29/19 21:29 Dose: 1 mg Documented by: Tiotropium [place] (Spiriva) 1 puffs INH QAM [facility] Stop: 08/26/19 13:14 Last Admin: 07/30/19 08:21 Dose: 1 puffs Documented by: Trazodone HCl (Desyrel) 50 mg PO [facility] Stop: 08/26/19 20:59 Last Admin: 07/29/19 21:28 Dose: 50 mg Documented by: (1) Chest pain, unspecified Chest pain type: precordial pain Qualified Code(s): R07.2 - Precordial pain
[2019-07-30] MEDS: HYDROCODONE/HOMATROPINE SYRUP 5MG/1.5MG 5ML UDP PO PRN (18:11)
[2019-07-30] MEDS: TRAZODONE HCL 50 MG TAB PO SCH (20:31)
[2019-07-30] MEDS: ASPIRIN 81 MG ECTAB PO SCH (20:31)
[2019-07-30] MEDS: MIRTAZAPINE SOLTAB 15 MG PO SCH (20:32)
[2019-07-30] MEDS: MONTELUKAST SODIUM 10 MG TABLET PO SCH (20:32)
[2019-07-30] MEDS: GABAPENTIN 400 MG CAP PO SCH (20:33)
[2019-07-30] MEDS: PANTOprazole 40 MG TAB PO SCH (20:34)
[2019-07-30] MEDS: ROPINIROLE HCL 1 MG TABLET PO SCH (20:34)
[2019-07-31] MEDS: ALBUT/IPRATROP 3MG/0.5MG NEB 3 ML VIAL NEB SCH ×6 (02:57→23:04)
[2019-07-31] MEDS: HEPARIN SOD 5,000 UNIT/0.5 ML VIAL SQ SCH ×3 (06:27→20:46)
[2019-07-31] MEDS: methylPREDNISolone 125 MG in SYRINGE 0 ML IV SCH (06:27)
[2019-07-31] MEDS: BUDESONIDE 0.5 MG/2 ML VIAL (PULMICORT) NEB SCH ×2 (07:08→19:32)
[2019-07-31] MEDS: FORMOTEROL 20 MCG/2 ML VIAL NEB SCH ×2 (07:09→19:32)
[2019-07-31] MEDS ORDERED: INSULIN HUMAN NPH SC SCH (08:00)
[2019-07-31] MEDS: INSULIN ASPART 100 UNITS/ML 3 ML PEN SC SCH ×5 (08:07→20:46)
[2019-07-31] MEDS: AMLODIPINE BESYLATE 5 MG TAB PO SCH (08:08)
[2019-07-31] MEDS: CLOPIDOGREL BISULFATE 75 MG TAB PO SCH (08:08)
[2019-07-31] MEDS: TIOTROPIUM BROMIDE 5 PUFF/90 MCG INH INH SCH (08:09)
[2019-07-31] MEDS: ISOSORBIDE MONO EXTENDED REL 30 MG TABCR PO SCH (08:09)
[2019-07-31] MEDS: AZITHROMYCIN 250 MG TAB PO SCH (08:09)
[2019-07-31] MEDS: ATORVASTATIN 40 MG TAB PO SCH (08:09)
[2019-07-31] MEDS: DOXYCYCLINE HYCLATE 100 MG CAP PO SCH ×2 (08:09→20:45)
--- NOTE | 2019-07-31 08:13 | Pulmonology Progress Note ---
Date of Service July 31, 2019 Assessment & Plan (1) Acute exacerbation of chronic obstructive pulmonary disease (COPD): Impression: 78-year-old female with reported history of obstructive lung disease although I cannot find her PFTs in the electronic medical record. She presents with wheezing now and certainly could have an exacerbation of his. She had eosinophilia previously but not on this admission. I suspect there is a significant component of potential vocal cord dysfunction. Recommendations: 1. Obstructive lung disease: Proceeding under the assumption that the patient does have significant obstructive lung disease. IgE normal. We will continue Singulair to her regimen as well as Benadryl and Tessalon as needed for cough. Okay to transition to oral prednisone 20 mg twice a day. 2. Probable vocal cord dysfunction. Briefly discussed with ENT. We will continue CPAP and as needed anxiolytics. Will consult speech therapy and see if they can evaluate the patient in the morning. She may require referral to a tertiary outpatient care center. Flexible laryngoscopy should be considered but was not readily available over the weekend. 3. Outpatient pulmonary function tests are recommended. Given the high probability for sleep disordered breathing, would recommend outpatient sleep study as well. 4. Abnormal CT scan: Patient does have a faint area of groundglass opacity in the anterior aspect of the right upper lobe. Radiographic surveillance with a follow-up CT scan in 3 to 6 months is recommended. I suspect the described interstitial changes likely represent atelectasis. 5. If she continues to have issues, we will see if respiratory therapy has heliox available. Overall she is improving. (2) Dyspnea: (3) Acute hypoxemic respiratory failure: (4) Abnormal CT scan of lung: Subjective Patient feels somewhat better this morning. She continues to breathe normally until she tries to talk at which point time she developed some paroxysms of coughing and has significant hoarseness. I remain significantly concerned about the possibility of paradoxical vocal cord motion/vocal cord dysfunction. She thinks overall she is improving. She was able to tolerate CPAP last night and does feel that it was somewhat helpful. She has not had a prior outpatient sleep study performed. Review of Systems Review of Systems: Unchanged from prior Physical Exam Constitutional: WD/WN, vitals as above Neck: trachea midline, no thyromegaly Respiratory: Minimal wheezing currently. Transmitted upper airway breath sounds Cardiovascular: RRR, no murmur, no edema Gastrointestinal (Abdomen): normal bowel sounds, soft, nontender, no hepatosplenomegaly Musculoskeletal: Extremities: extremities normal to inspection Skin: no rashes, warm and dry Lymphatic: no cervical lymphadenopathy Results & Data Vital Signs (Past 12 Hours) Vital Signs Temp Pulse Pulse Resp BP Pulse Ox 07/31/19 07:24 36.9 C 69 16 117/66 95 07/31/19 07:09 79 16 96 07/31/19 02:58 67 14 97 07/31/19 02:57 67 16 97 07/31/19 02:51 36.4 C L 75 22 138/61 96 07/31/19 00:00 80 07/30/19 23:34 36.7 C 74 17 142/72 H 98 07/30/19 23:33 77 16 98 07/30/19 23:30 77 14 98 PG Care Time/CCT Total # of Minutes Spent Total Time Spent with Patient: Total time spent is greater than 50% in coordination of care (as documented) at patient's floor/unit and/or counseling patient:
[2019-07-31] MEDS: METOPROLOL TARTRATE 25 MG TAB PO SCH ×2 (09:54→20:45)
--- NOTE | 2019-07-31 12:18 | Hospitalist Progress Note ---
Date of Service July 31, 2019 Assessment & Plan (1) COPD exacerbation: Secondary to complicated bronchitis without any evidence of pneumonia Possible sepsis at presentation Has been on regular bronchodilators, intravenous Solu-Medrol and IV antibiotics She is very anxious and having more shortness of breath with cough Appreciate pulmonary input and recommendation Steroid dose has been increased and has been getting regular cough suppressant Clinically not any better Will get a stat chest x-ray to rule out any fluid overload/pulmonary edema Received 1 mg of bumetanide IV stat and IV fluid discontinued Clinically much better today 07/29 We will continue high-dose of steroid for now; 125 mg IV every 8h Clinically little bit better today on 07/31 Steroid dose has been decreased Excessive cough/vocal cord dysfunction Especially when she starts talking and in presence of someone in the room Having some bouts with increasing shortness of breath May have vocal cord dysfunction For now will try Hycodan cough syrup Will need to have outpatient follow-up with specialist to rule out vocal cord dysfunction Awaiting speech evaluation Persistent cough Robitussin and Tessalon Perles have been discontinued Has been getting Hycodan as needed since yesterday Cough is better clinically Hypertension elevated secondary discomfort Blood pressure seems to be controlled ARF on CRI secondary to illness Received adequate intravenous fluid initially mostly for suspected sepsis We will monitor renal function Anxiety/mood disorder, at baseline as per patient Symptom more anxious Received Ativan orally Will give morphine 2 mg IV stat for anxiety and shortness of breath Steroid-induced hyperglycemia Appreciate pharmacy input and recommendation (2) Acute hypoxemic respiratory failure: Secondary to have a Continue nasal cannula oxygen Saturating well with 2 L Saturating normal with room air (3) Chest pain, unspecified: Presented with chest pain Initial troponin was elevated 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 Stranding is present to suggest chronicity No ACS We will continue current medications No more chest pain and/or palpitation (4) LBBB (left bundle branch block): Chronic left bundle branch block (5) Elevated troponin I level: As above No ACS (6) Seasonal allergies: Condition is worse with increasing allergic symptoms especially cough Will observe DVT prophylax Subcu heparin CODE STATUS Full (7) Diabetes mellitus with hyperglycemia: Her blood sugar is elevated Pharmacy consult Blood sugar is going to be high due to use of high-dose of steroid We will continue current treatment May need insulin drip Steroid dose have been decreased Blood sugar is likely to be improving Subjective 07/28 The patient was seen and examined in telemetry unit on 07/27 and today She has been complaining of more shortness of breath with cough and wheezing She is very anxious and restless and wants to go home Condition even got worse at around 3:10 PM 07/29 The patient was seen and examined in telemetry unit She is feeling much better today and she is ashamed of herself with the deterioration of her condition yesterday Still has cough, no fever and chills Denies any chest pain 07/30 Patient was seen and examined in telemetry unit She has been stable at rest but as soon as some of the enters into her room starts coughing and becomes very short of breath Cough has been nonproductive Denies any chest pain and/or palpitation She has been very anxious and wants to go home 07/31 The patient was seen and examined in telemetry unit She remains stable at rest without any disturbance Once she starts talking she gets this coughing spell and that makes her shortness of breath worse and worse Wants to go home Review of Systems Review of Systems: All systems reviewed and unremarkable except as noted below Constitutional: + weakness and + problem reported (Very anxious with increasing shortness of breath and cough especially in the presence of someone in the room) Respiratory: + cough, + chest congestion, + dyspnea, + pain with cough and + wheezing Cardiovascular: + chest pain (Likely secondary to cough) Neurologic: + generalized weakness Psychiatric: + irritability and + anxiety Physical Exam Physical Exam: No distress at rest no shortness of breath and wheezing. Get worse with coughing and talking Constitutional: + acute distress (Shortness of breath and cough) and + ill appearing Respiratory: + respiratory distress, + labored breathing, + uses accessory muscles and + cough Auscultation: + diminished lung sounds and + wheezes (diffuse); no crackles Cardiovascular: Rate/Rhythm: regular rate and regular rhythm Gastrointestinal (Abdomen): Inspection/Auscultation: abdomen normal to inspection and normal bowel sounds Percussion/Palpation: abdomen soft Neurologic: moves all extremities; no focal motor deficits Psychiatric: Affect: + anxious affect Mood: + anxious mood and + irritable mood Lymphatic: no cervical or axillary lymphadenopathy Results & Data Vital Signs (Past 12 Hours) Vital Signs Temp Pulse Pulse Resp BP Pulse Ox 07/31/19 11:30 36.9 C 65 16 127/66 95 07/31/19 11:23 79 16 96 07/31/19 09:54 77 135/71 07/31/19 07:24 36.9 C 69 16 117/66 95 07/31/19 07:09 79 16 96 07/31/19 02:58 67 14 97 07/31/19 02:57 67 16 97 07/31/19 02:51 36.4 C L 75 22 138/61 96 Medications Administered Current Inpatient Medications Acetaminophen (Tylenol) 325 mg PO Q6H PRN PRN Reason: Pain or Fever Stop: 08/26/19 02:26 Last Admin: 07/29/19 21:53 Dose: 325 mg Documented by: Albuterol (Duoneb) 3 ml NEB Q4R REPLACED BY [facility] Stop: 08/27/19 14:59 Last Admin: 07/31/19 11:23 Dose: 3 ml Documented by: Alprazolam (Xanax) 0.25 mg PO Q6H PRN PRN Reason: cough, anxiety Stop: 08/28/19 16:10 Amlodipine Besylate (Norvasc) 10 mg PO QAM REPLACED BY [facility] Stop: 08/26/19 08:59 Last Admin: 07/31/19 08:08 Dose: 10 mg Documented by: Aspirin (Ecotrin Ectab) 81 mg PO QPM REPLACED BY [facility] Stop: 08/26/19 20:59 Last Admin: 07/30/19 20:31 Dose: 81 mg Documented by: Atorvastatin Calcium (Lipitor) 40 mg PO QAM REPLACED BY [facility] Stop: 08/26/19 08:59 Last Admin: 07/31/19 08:09 Dose: 40 mg Documented by: Azithromycin (Zithromax) 250 mg PO QAM REPLACED BY [facility] Stop: 08/03/19 13:14 Last Admin: 07/31/19 08:09 Dose: 250 mg Documented by: Budesonide (Pulmicort Respules) 0.5 mg NEB BIDR REPLACED BY [facility] Stop: 08/26/19 18:59 Last Admin: 07/31/19 07:08 Dose: 0.5 mg Documented by: Clopidogrel Bisulfate (Plavix) 75 mg PO QAM REPLACED BY [facility] Stop: 08/26/19 08:59 Last Admin: 07/31/19 08:08 Dose: 75 mg Documented by: Dextrose (Dextrose 50%) 25 - 50 ml IV UD PRN; Protocol PRN Reason: Hypoglycemia Protocol Stop: 08/26/19 02:44 Dicyclomine HCl (Bentyl) 10 mg PO TID PRN PRN Reason: ABDOMINAL CRAMPS Stop: 08/26/19 02:26 Diphenhydramine HCl (Benadryl Capsule) 50 mg PO Q8 PRN PRN Reason: Cough Stop: 08/27/19 11:32 Last Admin: 07/30/19 20:29 Dose: 50 mg Documented by: Doxycycline Hyclate (Vibramycin) 100 mg PO BID REPLACED BY [facility] Stop: 08/03/19 08:59 Last Admin: 07/31/19 08:09 Dose: 100 mg Documented by: Formoterol Fumarate (Perforomist) 20 mcg NEB BIDR REPLACED BY [facility] Stop: 08/26/19 18:59 Last Admin: 07/31/19 07:09 Dose: 20 mcg Documented by: Gabapentin (Neurontin) 800 mg PO HS REPLACED BY [facility] Stop: 08/26/19 20:59 Last Admin: 07/30/19 20:33 Dose: 800 mg Documented by: Glucagon (Glucagen) 1 mg IM UD PRN; Protocol PRN Reason: Hypoglycemia Protocol Stop: 08/26/19 02:44 Glucose (Glucose 40%) 15 - 30 gm PO UD PRN; Protocol PRN Reason: Hypoglycemia Protocol Stop: 08/26/19 02:44 Glucose (Dex4 Glucose) 4 - 8 tabs PO UD PRN; Protocol PRN Reason: Hypoglycemia Protocol Stop: 08/26/19 02:44 Heparin Sodium (Porcine) (Heparin Sodium (Porcine)) 5,000 units SQ Q8 JOHN Stop: 08/26/19 05:59 Last Admin: 07/31/19 06:27 Dose: 5,000 units Documented by: Heparin Sodium (Porcine) (Heparin Sod 100 Unit/Ml Flush) 5 ml FLUSH PRN PRN PRN Reason: Flush Stop: 08/26/19 22:59 Hydrocodone Bit/Homatropine Methylb (Hycodan) 5 ml PO Q6H PRN PRN Reason: Cough Stop: 08/13/19 12:34 Last Admin: 07/30/19 18:11 Dose: 5 ml Documented by: Hydromorphone HCl (Dilaudid) 0.25 mg IV Q6H PRN PRN Reason: Pain Stop: 08/10/19 02:26 Promethazine HCl 12.5 mg/ (Sodium Chloride) 50.5 mls @ 202 mls/hr IV Q6H PRN PRN Reason: Nausea And Vomiting Stop: 08/26/19 02:26 Insulin Aspart (Novolog Flexpen) 0 units SC ACHS REPLACED BY [facility] Stop: 08/26/19 07:29 Last Admin: 07/31/19 11:56 Dose: 15 units Documented by: Insulin Aspart (Novolog Flexpen) 0 units SC DAILY@1000 REPLACED BY [facility] Stop: 08/30/19 09:59 Last Admin: 07/31/19 10:26 Dose: 1 units Documented by: Insulin Human NPH (Novolin N Nph) 30 units SC DAILY@1700 REPLACED BY [facility] Stop: 08/27/19 16:59 Last Admin: 07/30/19 17:35 Dose: 30 units Documented by: Insulin Human NPH (Novolin N Nph) 35 units SC DAILY@0800 REPLACED BY [facility] Stop: 08/31/19 07:59 Isosorbide Mononitrate (Imdur Extended Rel) 30 mg PO QAM REPLACED BY [facility] Stop: 08/26/19 08:59 Last Admin: 07/31/19 08:09 Dose: 30 mg Documented by: Lorazepam (Ativan) 0.5 mg PO Q6 PRN PRN Reason: Anxiety Stop: 08/26/19 02:26 Last Admin: 07/29/19 12:25 Dose: 0.5 mg Documented by: Metoprolol Tartrate (Lopressor) 25 mg PO BID REPLACED BY [facility] Stop: 08/26/19 02:26 Last Admin: 07/31/19 09:54 Dose: 25 mg Documented by: Mirtazapine (Remeron Solutab) 45 mg PO HS REPLACED BY [facility] Stop: 08/26/19 20:59 Last Admin: 07/30/19 20:32 Dose: 45 mg Documented by: Miscellaneous (Carbohydrates For Hypoglycemia) 15 - 30 gm PO PRN PRN PRN Reason: Hypoglycemia Treatment Stop: 08/26/19 02:44 Last Admin: 07/28/19 11:19 Dose: 15 gm Documented by: Miscellaneous Information (Consult Glycemic Management Pharmacy) 1 ea N/A UD PRN PRN Reason: Consult Stop: 08/26/19 02:06 Montelukast Sodium (Singulair) 10 mg PO HS REPLACED BY [facility] Stop: 08/27/19 20:59 Last Admin: 07/30/19 20:32 Dose: 10 mg Documented by: Nitroglycerin (Nitrostat) 0.4 mg SL UD PRN PRN Reason: Chest Pain Stop: 08/26/19 02:26 Last Admin: 07/28/19 14:49 Dose: 0.4 mg Documented by: Oxycodone HCl (Roxicodone Immediate Rel) 5 mg PO Q4H PRN PRN Reason: Pain Stop: 08/10/19 02:26 Pantoprazole Sodium (Protonix) 40 mg PO QPM JOHN Stop: 08/26/19 20:59 Last Admin: 07/30/19 20:34 Dose: 40 mg Documented by: Ropinirole HCl (Requip) 1 mg PO [facility] Stop: 08/26/19 20:59 Last Admin: 07/30/19 20:34 Dose: 1 mg Documented by: Tiotropium Pax (Spiriva) 1 puffs INH QAM JOHN Stop: 08/26/19 13:14 Last Admin: 07/31/19 08:09 Dose: 1 puffs Documented by: Trazodone HCl (Desyrel) 50 mg PO [facility] Stop: 08/26/19 20:59 Last Admin: 07/30/19 20:31 Dose: 50 mg Documented by: (1) Chest pain, unspecified Chest pain type: precordial pain Qualified Code(s): R07.2 - Precordial pain
--- NOTE | 2019-07-31 12:38 | Pharmacy Report ---
Pharmacy Glycemic Short Note 2 - Date of Service July 31, 2019 - Glycemic Short BSG Results (Last 24 hours): 07/30/19 07/30/19 07/30/19 14:07 16:25 20:08 POC Glucose 93 126 H 212 H 07/31/19 07/31/19 07/31/19 02:57 07:21 09:58 POC Glucose 83 103 H 264 H 07/31/19 11:02 POC Glucose 235 H OUTPATIENT ANTIDIABETIC REGIMEN: * 70/30 insulin 55 units w/ breakfast + 35 units with dinner * A1c = 10.4% 07/27/19 ASSESSMENT: * Type 2 diabetic admitted for COPD exacerbation * High dose IV steroids with Solumedrol 125mg IV Q8hrs initiated on 07/28/19. Pt has been requiring 180 units of insulin per day while on steroids for near- adequate control. * Steroids dc today. Pt received one dose of Solumedrol 125mg this morning. * Insulin regimen will need empirically decreased. * Pt typically has a mid morning snack around 1000 --> leads to severe hyperglycemia prior to lunch. Will add 1000 CHO coverage so this snack is covered. PLAN FOR INPATIENT GLYCEMIC CONTROL: * Basal insulin: start to taper back to outpatient regimen * NPH 45 units w/ breakfast today, then 35 units w/ breakfast + 30 units w/ dinner * Bolus insulin: loosen parameters * NovoLog per scale ACHS * Goal Range: Low 110 mg/dL - High 140 mg/dL * Correction Factor: 10 mg/dL/unit * Nutritional / Prandial insulin per carb ratio of 1 unit per 4 grams CHO consumed
[2019-07-31] MEDS: INSULIN HUMAN NPH SC SCH (17:05)
[2019-07-31] MEDS: PANTOprazole 40 MG TAB PO SCH (20:45)
[2019-07-31] MEDS: MONTELUKAST SODIUM 10 MG TABLET PO SCH (20:45)
[2019-07-31] MEDS: ASPIRIN 81 MG ECTAB PO SCH (20:45)
[2019-07-31] MEDS: GABAPENTIN 400 MG CAP PO SCH (20:45)
[2019-07-31] MEDS: MIRTAZAPINE SOLTAB 15 MG PO SCH (20:45)
[2019-07-31] MEDS: ROPINIROLE HCL 1 MG TABLET PO SCH (20:46)
[2019-07-31] MEDS: TRAZODONE HCL 50 MG TAB PO SCH (20:46)
[2019-08-01] MEDS: ALBUT/IPRATROP 3MG/0.5MG NEB 3 ML VIAL NEB SCH ×6 (02:06→23:08)
[2019-08-01] MEDS: HEPARIN SOD 5,000 UNIT/0.5 ML VIAL SQ SCH ×3 (06:05→20:48)
[2019-08-01] MEDS: FORMOTEROL 20 MCG/2 ML VIAL NEB SCH ×2 (07:01→19:23)
[2019-08-01] MEDS: BUDESONIDE 0.5 MG/2 ML VIAL (PULMICORT) NEB SCH ×2 (07:01→19:23)
[2019-08-01 07:38] LABS: BUN Creatinine Ratio 31.1 (10-20); Calcium 7.8 mg/dl (8.5-10.1); Creatinine Clr Calc Pharmacy 27.7 ml/min; Est GFR (African American) 37.1; Phosphorus 4.2 mg/dl (2.5-4.9); Potassium 3.8 mmol/L (3.5-5.1)
[2019-08-01] MEDS: CLOPIDOGREL BISULFATE 75 MG TAB PO SCH (07:43)
[2019-08-01] MEDS: ATORVASTATIN 40 MG TAB PO SCH (07:43)
[2019-08-01] MEDS: AMLODIPINE BESYLATE 5 MG TAB PO SCH (07:43)
[2019-08-01] MEDS: ISOSORBIDE MONO EXTENDED REL 30 MG TABCR PO SCH (07:44)
[2019-08-01] MEDS: DOXYCYCLINE HYCLATE 100 MG CAP PO SCH ×2 (07:44→20:46)
[2019-08-01] MEDS: METOPROLOL TARTRATE 25 MG TAB PO SCH ×2 (07:44→20:47)
[2019-08-01] MEDS: AZITHROMYCIN 250 MG TAB PO SCH (07:44)
[2019-08-01] MEDS: TIOTROPIUM BROMIDE 5 PUFF/90 MCG INH INH SCH (07:45)
[2019-08-01] MEDS: INSULIN ASPART 100 UNITS/ML 3 ML PEN SC SCH ×5 (07:59→20:49)
[2019-08-01] MEDS ORDERED: INSULIN HUMAN NPH SC SCH ×3 (08:00→17:00)
--- NOTE | 2019-08-01 09:49 | Pulmonology Progress Note ---
Date of Service August 01, 2019 Subjective The patient continues to have cough and sob. She feels some better since admission but not a lot. The cough is non productive. The steroids apparently were stopped yesterday. She continues to have some reflux despite protonix. She had marked problems with cpap last martine. Did not tolerate it well. She had done better the other nights. The patient complains of swelling in the left lower extremity. Her left leg has been very uncomfortable. The right leg is somewhat swollen but not nearly as much. She has no prior history of DVT. Results & Data Vital Signs (Past 12 Hours) Vital Signs Temp Pulse Pulse Resp BP Pulse Ox 08/01/19 07:52 72 08/01/19 07:25 36.5 C 85 195/77 H 99 08/01/19 07:02 70 17 98 08/01/19 03:01 36.4 C L 70 20 135/70 94 08/01/19 02:07 72 16 95 08/01/19 00:00 83 07/31/19 23:35 36.3 C L 85 20 134/67 94 07/31/19 23:05 83 16 97 07/31/19 22:35 85 16 98 PG Care Time/CCT Total # of Minutes Spent Total Time Spent with Patient: Total time spent is greater than 50% in coordination of care (as documented) at patient's floor/unit and/or counseling patient:
--- NOTE | 2019-08-01 10:19 | Pulmonology Progress Note ---
Date of Service August 01, 2019 Assessment & Plan (1) Acute exacerbation of chronic obstructive pulmonary disease (COPD): 1. Would continue with current bronchodilator therapy. 2. Observe how the patient is doing off of steroids. 3. In light of significant swelling in lower legs, left greater than right advise bilateral venous Doppler to exclude DVT 4. The patient is on both doxycycline and azithromycin. Suggest discontinue doxycycline. 5. In light of the possibility of vocal cord dysfunction advise ENT evaluation. (2) GERD (gastroesophageal reflux disease): 1. In light of the continued reflux symptoms, consider increasing panto prazole to 40 mg twice daily. (3) DUANE (obstructive sleep apnea): 1. The patient had difficulty with CPAP last night. If she continues to have problems would consider trial of BiPAP. 2. As an outpatient should have sleep study done she clearly has symptoms of loud snoring and disturbed nocturnal sleep. She has a Mallampati grade 3 pharynx. Subjective The patient continues to have cough and sob. She feels some better since admission but not a lot. The cough is non productive. The steroids apparently were stopped yesterday. She continues to have some reflux despite protonix. She had marked problems with cpap last martine. Did not tolerate it well. She had done better the other nights. The patient complains of swelling in the left lower extremity. Her left leg has been very uncomfortable. The right leg is somewhat swollen but not nearly as much. She has no prior history of DVT. I did discuss the situation with speech therapy. They state that the patient would need to see ENT prior to them being able to do any therapy for vocal cord dysfunction. The patient states she has never had pulmonary function testing in the past. She has never seen an ENT specialist in the past. Physical Exam Physical Exam: The patient is a pleasant 78-year-old female who was cooperative alert and oriented. She coughed occasionally particularly with talking. Pupils were reactive. Implants were noted bilaterally. Nares are clear. Mouth exam shows Mallampati grade 3 pharynx. Palpation of the neck reveals no lymph node. Voice is hoarse. Cardiac rate 72/min. Rhythm regular. Blood pressure elevated at 195/77. This is much higher than she usually is. Auscultation of the lung page revealed fairly good breath sounds. No wheezing was heard. She did cough with deep inspiration. Respiratory rate 18 breaths/min and not labored. Saturation 99% on room air. The left leg is very tight. The edema is nonpitting. Right leg is less tight she was sensitive to touch on the left leg. Results & Data Vital Signs (Past 12 Hours) Vital Signs Temp Pulse Pulse Resp BP Pulse Ox 08/01/19 07:52 72 08/01/19 07:25 36.5 C 85 195/77 H 99 08/01/19 07:02 70 17 98 08/01/19 03:01 36.4 C L 70 20 135/70 94 08/01/19 02:07 72 16 95 08/01/19 00:00 83 07/31/19 23:35 36.3 C L 85 20 134/67 94 07/31/19 23:05 83 16 97 07/31/19 22:35 85 16 98 Laboratory Results Electrolytes today show sodium 143, potassium 3.8, chloride 112, bicarb 21. BUN is elevated at 48 with creatinine elevated at 1.54. Blood sugar this morning was 88. It is notable that IgE level done on admission was elevated at 430. PG Care Time/CCT Total # of Minutes Spent Total Time Spent with Patient: Total time spent is greater than 50% in coordination of care (as documented) at patient's floor/unit and/or counseling patient:
--- NOTE | 2019-08-01 10:58 | Ultrasound Report ---
US venous doppler LE BI HISTORY: Pain. Edema. R/O DVT COMPARISON STUDY: None. FINDINGS: There is normal compressibility, flow, and augmentation within the bilateral lower extremit y deep venous systems. IMPRESSION: No DVT within the right or left lower extremity. The above report was generated using voice recognition software. It may contain grammatical, syntax or spelling errors. Electronically signed by: Sigifredo Rubio M.D. 08/01/2019 10:56 AM
[2019-08-01] MEDS: CARBOHYDRATES FOR HYPOGLYCEMIA PO PRN ×3 (11:10→21:01)
--- NOTE | 2019-08-01 16:03 | Pharmacy Report ---
Pharmacy Glycemic Short Note 2 - Date of Service August 01, 2019 - Glycemic Short BSG Results (Last 24 hours): 07/31/19 07/31/19 08/01/19 16:22 20:41 06:39 Glucose 88 POC Glucose 151 H 147 H 08/01/19 08/01/19 08/01/19 07:33 11:08 11:10 Glucose POC Glucose 113 H 51 L* 51 L* 08/01/19 08/01/19 11:28 11:44 Glucose POC Glucose 74 74 OUTPATIENT ANTIDIABETIC REGIMEN: * 70/30 insulin 55 units w/ breakfast + 35 units with dinner * A1c = 10.4% 07/27/19 ASSESSMENT: 08/01: * Patient fasting BSG adequate, however hypoglycemic at lunchtime. This was after 1100 morning snack coverage of 3 units. Morning NPH dose was already reduced from yesterday (due to IV steroid d/c). I will also reduce evening NPH dose and loosen novolog CF/CR to prevent further hypoglycemia. 07/31 * Type 2 diabetic admitted for COPD exacerbation * High dose IV steroids with Solumedrol 125mg IV Q8hrs initiated on 07/28/19. Pt has been requiring 180 units of insulin per day while on steroids for near-keila quate control. * Steroids dc today. Pt received one dose of Solumedrol 125mg this morning. * Insulin regimen will need empirically decreased. * Pt typically has a mid morning snack around 1000 --> leads to severe hyperglycemia prior to lunch. Will add 1000 CHO coverage so this snack is covered. PLAN FOR INPATIENT GLYCEMIC CONTROL: * Basal insulin: * NPH 35 units w/ breakfast this morning and 20 units w/ dinner * Bolus insulin: loosen parameters * NovoLog per scale ACHS * Goal Range: Low 110 mg/dL - High 140 mg/dL * Correction Factor: 15 mg/dL/unit * Nutritional / Prandial insulin per carb ratio of 1 unit per 6 grams CHO consumed
--- NOTE | 2019-08-01 16:03 | Hospitalist Progress Note ---
Date of Service August 01, 2019 Assessment & Plan (1) COPD exacerbation: Secondary to complicated bronchitis without any evidence of pneumonia Possible sepsis at presentation Has been on regular bronchodilators, intravenous Solu-Medrol and IV antibiotics She is very anxious and having more shortness of breath with cough Appreciate pulmonary input and recommendation Steroid dose has been increased and has been getting regular cough suppressant Clinically not any better Will get a stat chest x-ray to rule out any fluid overload/pulmonary edema Received 1 mg of bumetanide IV stat and IV fluid discontinued Clinically much better today 07/29 We will continue high-dose of steroid for now; 125 mg IV every 8h Clinically little bit better today on 07/31 Steroid dose has been decreased Remains stable with bouts of cough which is making shortness of breath worse Did very well with physical therapy and does not require any extra oxygen Excessive cough/vocal cord dysfunction Especially when she starts talking and in presence of someone in the room Having some bouts with increasing shortness of breath May have vocal cord dysfunction For now will try Hycodan cough syrup Will need to have outpatient follow-up with specialist to rule out vocal cord dysfunction Awaiting speech evaluation-recommended to have ENT evaluation Discussed with Dr. Mary, the ENT specialist, will evaluate her in the morning 08/02 Persistent cough Robitussin and Tessalon Perles have been discontinued Has been getting Hycodan as needed since yesterday Hypertension elevated secondary discomfort Blood pressure seems to be controlled ARF on CRI secondary to illness Received adequate intravenous fluid initially mostly for suspected sepsis We will monitor renal function Anxiety/mood disorder, at baseline as per patient Symptom more anxious Received Ativan orally Will give morphine 2 mg IV stat for anxiety and shortness of breath Steroid-induced hyperglycemia Appreciate pharmacy input and recommendation (2) Acute hypoxemic respiratory failure: Secondary to have a Continue nasal cannula oxygen Saturating well with 2 L Saturating normal with room air Clinically stable (3) Chest pain, unspecified: Presented with chest pain Initial troponin was elevated Was evaluated by fur cutter Echo: Normal LV systolic function without regional wall motion abnormality with EF of 60 to 65%, small circumferential pericardial effusion without hemodynamic significance. Stranding is present to suggest chronicity No ACS We will continue current medications No more chest pain and/or palpitation (4) LBBB (left bundle branch block): Chronic left bundle branch block (5) Elevated troponin I level: As above No ACS (6) Seasonal allergies: Condition is worse with increasing allergic symptoms especially cough Will observe DVT prophylax Ultrasound of the legs did not show any DVT Subcu heparin CODE STATUS Full (7) Diabetes mellitus with hyperglycemia: Her blood sugar is elevated Pharmacy consult Blood sugar is going to be high due to use of high-dose of steroid We will continue current treatment May need insulin drip Steroid dose have been decreased Blood sugar is likely to be improving Subjective 07/28 The patient was seen and examined in telemetry unit on 07/27 and today She has been complaining of more shortness of breath with cough and wheezing She is very anxious and restless and wants to go home Condition even got worse at around 3:10 PM 07/29 The patient was seen and examined in telemetry unit She is feeling much better today and she is ashamed of herself with the deterioration of her condition yesterday Still has cough, no fever and chills Denies any chest pain 07/30 Patient was seen and examined in telemetry unit She has been stable at rest but as soon as some of the enters into her room starts coughing and becomes very short of breath Cough has been nonproductive Denies any chest pain and/or palpitation She has been very anxious and wants to go home 07/31 The patient was seen and examined in telemetry unit She remains stable at rest without any disturbance Once she starts talking she gets this coughing spell and that makes her shortness of breath worse and worse Wants to go home 08/01 Patient was seen and examined in telemetry unit She has been feeling a little bit better today Still complains to cough whenever she starts talking and gets more shortness of breath Speech saw her and they are waiting for evaluation from ENT specialist Remains anxious and wants to go home Review of Systems Review of Systems: All systems reviewed and unremarkable except as noted below Constitutional: + weakness and + problem reported (Very anxious with increasing shortness of breath and cough especially in the presence of someone in the room) Respiratory: + cough, + chest congestion, + dyspnea, + pain with cough and + wheezing Cardiovascular: + chest pain (Likely secondary to cough) Neurologic: + generalized weakness Psychiatric: + irritability and + anxiety Physical Exam Physical Exam: Sitting on a chair with moderate shortness of breath at rest Constitutional: WD/WN, vitals as above + acute distress (Shortness of breat h and cough) and + ill appearing Respiratory: + respiratory distress, + labored breathing, + uses accessory muscles and + cough Auscultation: + diminished lung sounds and + wheezes (diffuse); no crackles Cardiovascular: Rate/Rhythm: regular rate and regular rhythm Gastrointestinal (Abdomen): Inspection/Auscultation: abdomen normal to inspection and normal bowel sounds Percussion/Palpation: abdomen soft Neurologic: moves all extremities; no focal motor deficits Very anxious Psychiatric: Affect: + anxious affect Mood: + anxious mood and + irritable mood Lymphatic: no cervical or axillary lymphadenopathy Results & Data Vital Signs (Past 12 Hours) Vital Signs Temp Pulse Pulse Resp BP BP Pulse Ox 08/01/19 15:51 81 18 97 08/01/19 15:14 36.6 C 76 19 134/69 98 08/01/19 15:04 77 08/01/19 11:26 36.6 C 70 20 131/66 97 08/01/19 11:11 66 18 96 08/01/19 07:52 72 08/01/19 07:25 36.5 C 85 195/77 H 99 08/01/19 07:02 70 17 98 Laboratory Results [facility] 08/01/19 06:39 Sodium 143 Potassium 3.8 Chloride 112 H Carbon Dioxide 21 BUN 48 H Creatinine 1.54 H Glucose 88 Calcium 7.8 L Medications Administered Current Inpatient Medications Acetaminophen (Tylenol) 325 mg PO Q6H PRN PRN Reason: Pain or Fever Stop: 08/26/19 02:26 Last Admin: 07/29/19 21:53 Dose: 325 mg Documented by: Albuterol (Duoneb) 3 ml NEB Q4R [facility] Stop: 08/27/19 14:59 Last Admin: 08/01/19 15:49 Dose: 3 ml Documented by: Alprazolam (Xanax) 0.25 mg PO Q6H PRN PRN Reason: cough, anxiety Stop: 08/28/19 16:10 Amlodipine Besylate (Norvasc) 10 mg PO QAM [facility] Stop: 08/26/19 08:59 Last Admin: 08/01/19 07:43 Dose: 10 mg Documented by: Aspirin (Ecotrin Ectab) 81 mg PO QPM [facility] Stop: 08/26/19 20:59 Last Admin: 07/31/19 20:45 Dose: 81 mg Documented by: Atorvastatin Calcium (Lipitor) 40 mg PO QAM [facility] Stop: 08/26/19 08:59 Last Admin: 08/01/19 07:43 Dose: 40 mg Documented by: Azithromycin (Zithromax) 250 [facility] Stop: 08/03/19 13:14 Last Admin: 08/01/19 07:44 Dose: 250 mg Documented by: Budesonide (Pulmicort Respules) 0.5 mg NEB BIDR [facility] Stop: 08/26/19 18:59 Last Admin: 08/01/19 07:01 Dose: 0.5 mg Documented by: Clopidogrel Bisulfate (Plavix) 75 mg PO [facility] Stop: 08/26/19 08:59 Last Admin: 08/01/19 07:43 Dose: 75 mg Documented by: Dextrose (Dextrose 50%) 25 - 50 ml IV UD PRN; Protocol PRN Reason: Hypoglycemia Protocol Stop: 08/26/19 02:44 Dicyclomine HCl (Bentyl) 10 mg PO TID PRN PRN Reason: ABDOMINAL CRAMPS Stop: 08/26/19 02:26 Diphenhydramine HCl (Benadryl Capsule) 50 mg PO Q8 PRN PRN Reason: Cough Stop: 08/27/19 11:32 Last Admin: 07/30/19 20:29 Dose: 50 mg Documented by: Doxycycline Hyclate (Vibramycin) 100 mg PO BID [facility] Stop: 08/03/19 08:59 Last Admin: 08/01/19 07:44 Dose: 100 mg Documented by: Formoterol Fumarate (Perforomist) 20 mcg NEB BIDR [facility] Stop: 08/26/19 18:59 Last Admin: 08/01/19 07:01 Dose: 20 mcg Documented by: Gabapentin (Neurontin) 800 mg PO HS [facility] Stop: 08/26/19 20:59 Last Admin: 07/31/19 20:45 Dose: 800 mg Documented by: Glucagon (Glucagen) 1 mg IM UD PRN; Protocol PRN Reason: Hypoglycemia Protocol Stop: 08/26/19 02:44 Glucose (Glucose 40%) 15 - 30 gm PO UD PRN; Protocol PRN Reason: Hypoglycemia Protocol Stop: 08/26/19 02:44 Glucose (Dex4 Glucose) 4 - 8 tabs PO UD PRN; Protocol PRN Reason: Hypoglycemia Protocol Stop: 08/26/19 02:44 Heparin Sodium (Porcine) (Heparin Sodium (Porcine)) 5,000 units SQ Q8 JOHN Stop: 08/26/19 05:59 Last Admin: 08/01/19 14:04 Dose: 5,000 units Documented by: Heparin Sodium (Porcine) (Heparin Sod 100 Unit/Ml Flush) 5 ml FLUSH PRN PRN PRN Reason: Flush Stop: 08/26/19 22:59 Hydrocodone Bit/Homatropine Methylb (Hycodan) 5 ml PO Q6H PRN PRN Reason: Cough Stop: 08/13/19 12:34 Last Admin: 07/30/19 18:11 Dose: 5 ml Documented by: Hydromorphone HCl (Dilaudid) 0.25 mg IV Q6H PRN PRN Reason: Pain Stop: 08/10/19 02:26 Promethazine HCl 12.5 mg/ (Sodium Chloride) 50.5 mls @ 202 mls/hr IV Q6H PRN PRN Reason: Nausea And Vomiting Stop: 08/26/19 02:26 Insulin Aspart (Novolog Flexpen) 0 units SC ACHS [facility] Stop: 08/26/19 07:29 Last Admin: 08/01/19 12:42 Dose: 9 units Documented by: Insulin Aspart (Novolog Flexpen) 0 units SC DAILY@1000 [facility] Stop: 08/30/19 09:59 Last Admin: 08/01/19 11:03 Dose: 3 units Documented by: Insulin Human NPH (Novolin N Nph) 35 units SC DAILY@0800 [facility] Stop: 08/31/19 07:59 Last Admin: 08/01/19 08:01 Dose: 35 units Documented by: Insulin Human NPH (Novolin N Nph) 20 units SC DAILY@1700 [facility] Stop: 08/31/19 16:59 Isosorbide Mononitrate (Imdur Extended Rel) 30 mg PO QAM [facility] Stop: 08/26/19 08:59 Last Admin: 08/01/19 07:44 Dose: 30 mg Documented by: Lorazepam (Ativan) 0.5 mg PO Q6 PRN PRN Reason: Anxiety Stop: 08/26/19 02:26 Last Admin: 07/29/19 12:25 Dose: 0.5 mg Documented by: Metoprolol Tartrate (Lopressor) 25 mg PO BID [facility] Stop: 08/26/19 02:26 Last Admin: 08/01/19 07:44 Dose: 25 mg Documented by: Mirtazapine (Remeron Solutab) 45 mg PO HS [facility] Stop: 08/26/19 20:59 Last Admin: 07/31/19 20:45 Dose: 45 mg Documented by: Miscellaneous (Carbohydrates For Hypoglycemia) 15 - 30 gm PO PRN PRN PRN Reason: Hypoglycemia Treatment Stop: 08/26/19 02:44 Last Admin: 08/01/19 11:10 Dose: 15 gm Documented by: Miscellaneous Information (Consult Glycemic Management Pharmacy) 1 ea N/A UD PRN PRN Reason: Consult Stop: 08/26/19 02:06 Montelukast Sodium (Singulair) 10 mg PO [facility] Stop: 08/27/19 20:59 Last Admin: 07/31/19 20:45 Dose: 10 mg Documented by: Nitroglycerin (Nitrostat) 0.4 mg SL UD PRN PRN Reason: Chest Pain Stop: 08/26/19 02:26 Last Admin: 07/28/19 14:49 Dose: 0.4 mg Documented by: Oxycodone HCl (Roxicodone Immediate Rel) 5 mg PO Q4H PRN PRN Reason: Pain Stop: 08/10/19 02:26 Pantoprazole Sodium (Protonix) 40 mg PO QPM [facility] Stop: 08/26/19 20:59 Last Admin: 07/31/19 20:45 Dose: 40 mg Documented by: Ropinirole HCl (Requip) 1 mg PO [facility] Stop: 08/26/19 20:59 Last Admin: 07/31/19 20:46 Dose: 1 mg Documented by: Tiotropium [place] (Spiriva) 1 puffs [facility]H [facility] Stop: 08/26/19 13:14 Last Admin: 08/01/19 07:45 Dose: 1 puffs Documented by: Trazodone HCl (Desyrel) 50 mg PO [facility] Stop: 08/26/19 20:59 Last Admin: 07/31/19 20:46 Dose: 50 mg Documented by: (1) Chest pain, unspecified Chest pain type: precordial pain Qualified Code(s): R07.2 - Precordial pain
[2019-08-01] MEDS: ACETAMINOPHEN 325 MG TAB PO PRN (19:51)
[2019-08-01] MEDS ORDERED: COUGH DROP (SUGAR FREE) LOZ 24 LOZ/1 BOX BUCCAL ONE (20:33)
[2019-08-01] MEDS: MONTELUKAST SODIUM 10 MG TABLET PO SCH (20:46)
[2019-08-01] MEDS: GABAPENTIN 400 MG CAP PO SCH (20:47)
[2019-08-01] MEDS: MIRTAZAPINE SOLTAB 15 MG PO SCH (20:47)
[2019-08-01] MEDS: ASPIRIN 81 MG ECTAB PO SCH (20:47)
[2019-08-01] MEDS: TRAZODONE HCL 50 MG TAB PO SCH (20:47)
[2019-08-01] MEDS: PANTOprazole 40 MG TAB PO SCH (20:47)
[2019-08-01] MEDS: ROPINIROLE HCL 1 MG TABLET PO SCH (20:47)
[2019-08-01] MEDS: HYDROCODONE/HOMATROPINE SYRUP 5MG/1.5MG 5ML UDP PO PRN (22:32)
[2019-08-02] MEDS: CARBOHYDRATES FOR HYPOGLYCEMIA PO PRN (00:13)
[2019-08-02] MEDS: INSULIN ASPART 100 UNITS/ML 3 ML PEN SC SCH ×6 (00:21→18:07)
[2019-08-02] MEDS: ALBUT/IPRATROP 3MG/0.5MG NEB 3 ML VIAL NEB SCH ×5 (02:41→19:37)
[2019-08-02] MEDS: HEPARIN SOD 5,000 UNIT/0.5 ML VIAL SQ SCH ×2 (06:13→14:01)
[2019-08-02] MEDS: BUDESONIDE 0.5 MG/2 ML VIAL (PULMICORT) NEB SCH ×2 (07:20→19:38)
[2019-08-02] MEDS: FORMOTEROL 20 MCG/2 ML VIAL NEB SCH ×2 (07:20→19:37)
--- NOTE | 2019-08-02 07:29 | ENT Consultation ---
Date of Consultation August 02, 2019 Assessment & Plan (1) DUANE (obstructive sleep apnea): (2) GERD (gastroesophageal reflux disease): In view of the laryngeal findings, modified barium swallow with speech therapy is needed to evaluate possibility of silent aspiration (3) Chronic sinusitis: Repeat CT of the sinuses to compare with CT of the head done in January History of Present Illness Reason for Consultation: Persistent cough Attending Physician: Yony Gonzalez MD History of Present Illness 78-year-old lady with COPD and upper respiratory infection treated since January with persistent cough which is worsening. She also had recent hospitalization in January where she required a cardiac stent for microinfarction. At that time her CT scan showed ethmoid and sphenoid sinus disease. She also does have significant history of gastroesophageal reflux. Allergies Allergy/AdvReac Type Severity Reaction Status Date / Time Gadolinium-Containing Allergy Severe NAUSEA,VOMITING, Verified 07/26/19 23:37 Contrast Medi SWELLING/EDEMA AROUND EYES, WHEEZING Iodinated Contrast- Oral and Allergy Severe RASH TO Verified 07/26/19 23:37 IV Dye IVP DYE,NAUSEA, FAINTING, COUGHING, GAGGING, HEADACH Sulfa (Sulfonamide Allergy Severe HIVES, Verified 07/26/19 23:37 Antibiotics) FACIAL AND ARM SWELLING cerivastatin Allergy Intermediate HIVES Verified 07/26/19 23:37 codeine Allergy Intermediate "PRICKLY Verified 07/26/19 23:37 RASH" hydroxyzine Allergy Intermediate N/V Verified 07/26/19 23:37 latex Allergy Intermediate DERMATITIS-PT Verified 07/26/19 23:37 TOLERATED A LATEX CATHETER 03/26/08 Bactrim Allergy Mild RASH Verified 04/29/18 14:40 diphenhydramine Allergy Mild RASH; Verified 07/26/19 23:37 SLEEPINESS WITH "PHARBEDRYL" loratadine Allergy Mild HIVES Verified 07/26/19 23:37 sulfamethoxazole Allergy Mild RASH Verified 07/19/19 15:37 trimethoprim Allergy Mild RASH Verified 07/19/19 15:37 prednisone Allergy Unknown elevates Verified 07/19/19 15:37 blood sugar tetanus toxoid, adsorbed AdvReac Intermediate SWELLING Verified 07/19/19 15:37 AT INJECTION SITE alprazolam AdvReac Unknown "SLEEPY Verified 07/19/19 15:37 STUPER" metformin AdvReac Unknown DIARRHEA Verified 07/19/19 15:37 morphine AdvReac Unknown VOMITING Verified 07/19/19 15:37 simvastatin AdvReac Unknown COUGH, Verified 07/19/19 15:37 "DISCOMFORT" gadobutrol [From Gadavist] AdvReac Anaphylaxis Unverified 07/19/19 15:37 Home Medications Home Medications Medication Instructions Recorded Confirmed Type amlodipine [Norvasc] 10 mg PO QAM 08/24/18 07/26/19 History aspirin 1 tab PO QPM 08/24/18 07/26/19 History dicyclomine 10 mg PO TID PRN 08/24/18 07/26/19 History fluticasone propionate [Flonase 2 spray INTRANASAL QPM PRN 08/24/18 07/26/19 History Allergy Relief] lorazepam [Ativan] 0.5 mg PO Q6 PRN 08/24/18 07/26/19 History ondansetron HCl [Zofran] 4 mg PO QID PRN 08/24/18 07/26/19 History trazodone 50 mg PO HS 08/24/18 07/26/19 History albuterol sulfate 2.5 mg INHALATION QID PRN 01/26/19 07/26/19 History levocetirizine [Xyzal] 2.5 mg PO QPM 01/26/19 07/26/19 History losartan 100 mg PO QAM 01/26/19 07/26/19 History mirtazapine 45 mg PO HS 01/26/19 07/26/19 History ropinirole 1 mg PO HS 01/26/19 07/26/19 History atorvastatin 40 mg PO QAM #30 tab 01/28/19 07/26/19 Rx clopidogrel 75 mg PO QAM #30 tab 01/28/19 07/26/19 Rx isosorbide mononitrate 30 mg PO QAM #30 tab 01/28/19 07/26/19 Rx nitroglycerin [Nitrostat] 0.4 mg SUBLINGUAL PRN PRN #30 tab 01/28/19 07/26/19 Rx Novolin 70/30 U-100 Insulin 35 unit SUBCUT QPM 05/04/19 07/26/19 History Novolin 70/30 U-100 Insulin 55 unit SUBCUT QAM 05/04/19 07/26/19 History albuterol sulfate [Proventil HFA] 2 puff INHALATION Q4 PRN 05/04/19 07/26/19 History gabapentin 800 mg PO HS 07/11/19 07/26/19 History magnesium oxide 400 mg PO QPM 07/11/19 07/26/19 History metoprolol tartrate 25 mg PO BID 07/11/19 07/26/19 History pantoprazole 40 mg PO QPM 07/11/19 07/26/19 History Patient History Medical History Osteoarthritis (Chronic) Seasonal allergies (Chronic) Aortic stenosis (Chronic) moderate Pancreatitis Acute CVA (cerebrovascular accident) 01/2019 X 2-NUMBNESS RIGHT ARM/"MEMORY LOSS SLOWLY COMING BACK" Elevated troponin Weakness Pre-syncope Leukocytosis Pneumonia Valvular heart disease Non-STEMI (non-ST elevated myocardial infarction) 01/2019 Left bundle branch block Giant cell arteritis (Resolved) Gastroparesis (Chronic) Dyslipidemia (Chronic) Depression (Chronic) HTN (hypertension) (Chronic) Insomnia (Chronic) RLS (restless legs syndrome) (Chronic) Peripheral neuropathy (Chronic) Pancreatic cyst (Chronic) Anxiety (Chronic) COPD (chronic obstructive pulmonary disease) (Chronic) Diabetes mellitus, type II (Chronic) poorly controlled Sleep apnea (Chronic) PT DENIES/NO DEVICE Chronic pancreatitis (Chronic) Cerebrovascular disease (Chronic) "history stroke and TIA" L sided weakness. Fatty liver (Chronic) Esophageal dysmotility (Chronic) Pancreatic divisum (Chronic) CKD (chronic kidney disease), stage III (Chronic) F/U PCP GERD (gastroesophageal reflux disease) Surgical History History of ERCP (Resolved) x3 with stents. ERCP 04/30/18. MAC 3, grade 2 view. 7.0 ETT placed. No issues. History of bilateral tubal ligation (Resolved) S/P cardiac catheterization (Resolved) 01/2019 [facility] X 2-TOTAL 2 STENTS 04/2019 non obstructive disease History of cataract surgery (Chronic) both eyes Family History Daughter No problems noted. Father Family history of diabetes mellitus Family/Other Family history of diabetes mellitus Mother Family history of diabetes mellitus Grandfather Family history of diabetes mellitus Grandmother Family history of diabetes mellitus Social History Preferred Language: [place] Communication Ability: Effective Risk Assessment Analyst Required: No Beliefs That Will Affect Care: None marital status: / Current Living Situation: Alone Current Living Situation Comment: january 21, no longer has drivers license - stroke Other Information That Helps Us Care for You: No Feels Safe at Home: Yes Safety Concerns: Feels Safe At This Time Smoking Status: Former smoker Second Hand Exposure: No ; Hx Alcohol Use: No Hx Substance Use: No Physical Exam Constitutional: + ill appearing and + obese Eyes: PERRL, conjunctivae normal, anicteric sclerae ENMT: Nose: + nasal mucous membrane abnormality (Swollen nasal mucosa) Fiberoptic laryngoscopy showed erythema and swelling of the arytenoids and the postcricoid area consistent with laryngal pharyngeal reflux causing chronic laryngitis Neck: trachea midline, no thyromegaly Respiratory: + labored breathing (With wheezing) Results & Data Vital Signs (Past 12 Hours) Vital Signs Temp Pulse Pulse Resp BP BP Pulse Ox 08/02/19 07:01 36.7 C 83 19 161/73 H 96 08/02/19 03:11 36.6 C 80 17 144/70 H 97 08/02/19 02:42 71 18 97 08/02/19 00:37 76 08/01/19 23:22 36.4 C L 66 16 134/71 99 08/01/19 23:09 67 18 97 08/01/19 19:42 36.7 C 89 20 139/71 99 08/01/19 19:27 110 H 20 96
[2019-08-02] MEDS: AZITHROMYCIN 250 MG TAB PO SCH (08:21)
[2019-08-02] MEDS: ISOSORBIDE MONO EXTENDED REL 30 MG TABCR PO SCH (08:21)
[2019-08-02] MEDS: AMLODIPINE BESYLATE 5 MG TAB PO SCH (08:21)
[2019-08-02] MEDS: METOPROLOL TARTRATE 25 MG TAB PO SCH (08:21)
[2019-08-02] MEDS: CLOPIDOGREL BISULFATE 75 MG TAB PO SCH (08:21)
[2019-08-02] MEDS: ATORVASTATIN 40 MG TAB PO SCH (08:21)
[2019-08-02] MEDS: TIOTROPIUM BROMIDE 5 PUFF/90 MCG INH INH SCH (08:22)
[2019-08-02] MEDS: DOXYCYCLINE HYCLATE 100 MG CAP PO SCH (08:22)
--- NOTE | 2019-08-02 09:19 | CT Scan Report ---
CT SCAN OF THE PARANASAL SINUSES CLINICAL HISTORY: Chronic sinusitis. COMPARISON STUDY: MRI of the brain dated 07/11/2019. TECHNIQUE: High-resolution CT scan of the paranasal sinuses is performed. Images are reviewed in the axial, sagittal, and coronal planes. IV contrast was not administered for this examination. A dose lowering technique was utilized adhering to the principles of ALARA. CT DOSE: 502.50 mGy.cm FINDINGS: Maxillary antra: There is trace dependent mucosal thickening seen bilaterally. Anterior ethmoid sinuses: Clear. Posterior ethmoid sinuses: Clear. Sphenoid sinuses: A small amount of fluid is seen on the left. Trace mucosal thickening seen on the r ight. Frontal sinuses: Trace mucosal thickening is seen on the right. Clear on the left. Ostiomeatal complexes: Patent bilaterally. Frontoethmoidal and sphenoethmoidal recesses: Patent bilaterally. Carotid arteries: The carotid arteries are covered and without septal attachments. Ethmoid roofs: There is asymmetric elevation of the right ethmoid roof as compared to the left. Nasal turbinates: Normal in appearance. Nasal septum: There is minimal rightward deviation of the bony nasal septum. Optic nerves: Covered. Orbits: The bony orbits are intact. Orbital contents are normal in appearance noting bilateral ocular lens implants.. Calvarium: The skeletal structures are osteopenic. The imaged calvarium is normal in appearance Mastoid air cells: There are bilateral mastoid effusions. Brain parenchyma: Partially visualized brain parenchyma is within normal limits noting age-related in volutional change. Dentition: Numerous dental caries are identified. Advanced degenerative changes noted in the temporom andibular joints. IMPRESSION: 1. Mild paranasal sinus disease as above. 2. Bilateral mastoid effusions. 3. Numerous dental caries are identified. Follow-up with dentistry is recommended. Electronically signed by: Ramez Blanchard M.D. 08/02/2019 9:18 AM
[2019-08-02] MEDS ORDERED: PANTOprazole 40 MG TAB PO SCH (10:30)
[2019-08-02] MEDS ORDERED: INSULIN HUMAN NPH SC SCH ×2 (10:30→18:00)
--- NOTE | 2019-08-02 15:07 | Pharmacy Report ---
Pharmacy Glycemic Short Note 2 - Date of Service August 02, 2019 - Glycemic Short BSG Results (Last 24 hours): 08/01/19 08/01/19 08/01/19 16:27 20:42 20:43 POC Glucose 112 H 58 L* 59 L* 08/01/19 08/01/19 08/02/19 21:01 21:21 00:13 POC Glucose 63 L* 74 52 L* 08/02/19 08/02/19 08/02/19 00:39 04:16 06:16 POC Glucose 71 78 70 08/02/19 08/02/19 08/02/19 07:25 09:59 11:25 POC Glucose 90 134 H 109 H OUTPATIENT ANTIDIABETIC REGIMEN: * 70/30 insulin 55 units w/ breakfast + 35 units with dinner * A1c = 10.4% 07/27/19 ASSESSMENT: 08/02 * Despite significant decrease of NPH dosing yesterday and loosening of novolog scale, patient hypoglycemic overnight. NPH dose this morning was decreased again and delayed until BSG > 130 (~1000). Evening NPH will be scaled for a reduced dose of 10 or 0 based on BSG. Novolog scale was loosened significantly as well. This patient has historically been labile and I anticipate BSGs will start to increase rapidly over the next day or so. 08/01: * Patient fasting BSG adequate, however hypoglycemic at lunchtime. This was after 1100 morning snack coverage of 3 units. Morning NPH dose was already reduced from yesterday (due to IV steroid d/c). I will also reduce evening NPH dose and loosen novolog CF/CR to prevent further hypoglycemia. 07/31 * Type 2 diabetic admitted for COPD exacerbation * High dose IV steroids with Solumedrol 125mg IV Q8hrs initiated on 07/28/19. Pt has been requiring 180 units of insulin per day while on steroids for near- adequate control. * Steroids dc today. Pt received one dose of Solumedrol 125mg this morning. * Insulin regimen will need empirically decreased. * Pt typically has a mid morning snack around 1000 --> leads to severe hyperglycemia prior to lunch. Will add 1000 CHO coverage so this snack is covered. PLAN FOR INPATIENT GLYCEMIC CONTROL: * Basal insulin: * NPH 20 units @1030 * NPH scale (0 or 10 units) @ 1800 (See MAR for details) * Bolus insulin: loosen parameters * NovoLog per scale ACHS * Goal Range: Low 110 mg/dL - High 140 mg/dL * Correction Factor: 20 mg/dL/unit * Nutritional / Prandial insulin per carb ratio of 1 unit per 8 grams CHO consumed
--- NOTE | 2019-08-02 15:14 | Hospitalist Progress Note ---
Date of Service August 02, 2019 Assessment & Plan (1) COPD exacerbation: Secondary to complicated bronchitis without any evidence of pneumonia Possible sepsis at presentation Has been on regular bronchodilators, intravenous Solu-Medrol and IV antibiotics She is very anxious and having more shortness of breath with cough Appreciate pulmonary input and recommendation Steroid dose has been increased and has been getting regular cough suppressant Clinically not any better Will get a stat chest x-ray to rule out any fluid overload/pulmonary edema Received 1 mg of bumetanide IV stat and IV fluid discontinued Clinically much better today 07/29 We will continue high-dose of steroid for now; 125 mg IV every 8h Clinically little bit better today on 07/31 Steroid dose has been decreased Remains stable with bouts of cough which is making shortness of breath worse Did very well with physical therapy and does not require any extra oxygen Respiratory symptoms remains stable Cough and shortness of breath are much better Excessive cough/vocal cord dysfunction Especially when she starts talking and in presence of someone in the room Having some bouts with increasing shortness of breath May have vocal cord dysfunction For now will try Hycodan cough syrup Will need to have outpatient follow-up with specialist to rule out vocal cord dysfunction Awaiting speech evaluation-recommended to have ENT evaluation Discussed with Dr. Mary, the ENT specialist, will evaluate her in the morning 08/02 Appreciate ENT input and recommendation Does not have any vocal cord paralysis and CT of the sinus did not show any significant sinusitis Has reflux disease with erythema involving the oropharynx Will increase PPI Persistent cough Robitussin and Tessalon Perles have been discontinued Has been getting Hycodan as needed since yesterday Hypertension elevated secondary discomfort Blood pressure seems to be controlled ARF on CRI secondary to illness Received adequate intravenous fluid initially mostly for suspected sepsis We will monitor renal function Anxiety/mood disorder, at baseline as per patient Symptom more anxious Received Ativan orally Will give morphine 2 mg IV stat for anxiety and shortness of breath Steroid-induced hyperglycemia Appreciate pharmacy input and recommendation (2) Acute hypoxemic respiratory failure: Secondary to have a Continue nasal cannula oxygen Saturating well with 2 L Saturating normal with room air Clinically stable Maintaining saturation at room air (3) Chest pain, unspecified: Presented with chest pain Initial troponin was elevated Was evaluated by inspector poising Echo: Normal LV systolic function without regional wall motion abnormality with EF of 60 to 65%, small circumferential pericardial effusion without hemodynamic significance. Stranding is present to suggest chronicity No ACS We will continue current medications No more chest pain and/or palpitation (4) LBBB (left bundle branch block): Chronic left bundle branch block (5) Elevated troponin I level: As above No ACS (6) Seasonal allergies: Condition is worse with increasing allergic symptoms especially cough Will observe DVT prophylax Ultrasound of the legs did not show any DVT Subcu heparin CODE STATUS Full (7) Diabetes mellitus with hyperglycemia: Her blood sugar is elevated Pharmacy consult Blood sugar is going to be high due to use of high-dose of steroid We will continue current treatment May need insulin drip Steroid dose have been decreased Blood sugar is likely to be improving Likely discharge this afternoon Subjective 07/28 The patient was seen and examined in telemetry unit on 07/27 and today She has been complaining of more shortness of breath with cough and wheezing She is very anxious and restless and wants to go home Condition even got worse at around 3:10 PM 07/29 The patient was seen and examined in telemetry unit She is feeling much better today and she is ashamed of herself with the deterioration of her condition yesterday Still has cough, no fever and chills Denies any chest pain 07/30 Patient was seen and examined in telemetry unit She has been stable at rest but as soon as some of the enters into her room starts coughing and becomes very short of breath Cough has been nonproductive Denies any chest pain and/or palpitation She has been very anxious and wants to go home 07/31 The patient was seen and examined in telemetry unit She remains stable at rest without any disturbance Once she starts talking she gets this coughing spell and that makes her shortness of breath worse and worse Wants to go home 08/01 Patient was seen and examined in telemetry unit She has been feeling a little bit better today Still complains to cough whenever she starts talking and gets more shortness of breath Speech saw her and they are waiting for evaluation from ENT specialist Remains anxious and wants to go home 08/02 The patient was seen and examined in telemetry unit She has been seen by ENT specialist and does not have any vocal cord paralysis Has lots of erythema secondary to reflux disease Her cough is much better and shortness of breath breath has improved Review of Systems Review of Systems: All systems reviewed and unremarkable except as noted below Constitutional: + weakness and + problem reported (Very anxious with increasing shortness of breath and cough especially in the presence of someone in the room) Respiratory: + cough, + chest congestion, + dyspnea, + pain with cough and + wheezing Cardiovascular: + chest pain (Likely secondary to cough) Neurologic: + generalized weakness Psychiatric: + irritability and + anxiety Physical Exam Physical Exam: Minimal shortness of breath at rest and minimal cough Constitutional: WD/WN, vitals as above no acute distress (Shortness of breath and cough) and not ill appearing Respiratory: + respiratory distress, + labored breathing (Following bouts of cough), + uses accessory muscles and + cough Auscultation: + diminished lung sounds and + wheezes (diffuse); no crackles Cardiovascular: Rate/Rhythm: regular rate and regular rhythm Gastrointestinal (Abdomen): Inspection/Auscultation: abdomen normal to inspection and normal bowel sounds Percussion/Palpation: abdomen soft Neurologic: moves all extremities; no focal motor deficits Psychiatric: Affect: + anxious affect Mood: + anxious mood and + irritable mood Lymphatic: no cervical or axillary lymphadenopathy Results & Data Vital Signs (Past 12 Hours) Vital Signs Temp Pulse Pulse Resp BP BP Pulse Ox 08/02/19 15:03 82 18 93 08/02/19 11:02 78 18 98 08/02/19 10:49 36.7 C 75 19 139/69 99 08/02/19 07:52 88 08/02/19 07:22 88 20 97 08/02/19 07:01 36.7 C 83 19 161/73 H 96 08/02/19 03:11 36.6 C 80 17 144/70 H 97 Medications Administered Current Inpatient Medications Acetaminophen (Tylenol) 325 mg PO Q6H PRN PRN Reason: Pain or Fever Stop: 08/26/19 02:26 Last Admin: 08/01/19 19:51 Dose: 325 mg Documented by: Albuterol (Duoneb) 3 ml NEB Q4R JOHN Stop: 08/27/19 14:59 Last Admin: 08/02/19 15:01 Dose: 3 ml Documented by: Alprazolam (Xanax) 0.25 mg PO Q6H PRN PRN Reason: cough, anxiety Stop: 08/28/19 16:10 Amlodipine Besylate (Norvasc) 10 mg PO QAM JOHN Stop: 08/26/19 08:59 Last Admin: 08/02/19 08:21 Dose: 10 mg Documented by: Aspirin (Ecotrin Ectab) 81 mg PO QPM [facility] Stop: 08/26/19 20:59 Last Admin: 08/01/19 20:47 Dose: 81 mg Documented by: Atorvastatin Calcium (Lipitor) [facility] [place] Stop: 08/26/19 08:59 Last Admin: 08/02/19 08:21 Dose: 40 mg Documented by: Azithromycin (Zithromax) [facility] [place] Stop: 08/03/19 13:14 Last Admin: 08/02/19 08:21 Dose: 250 mg Documented by: Budesonide (Pulmicort Respules) 0.5 mg NEB BIDR [facility] Stop: 08/26/19 18:59 Last Admin: 08/02/19 07:20 Dose: 0.5 mg Documented by: Clopidogrel Bisulfate (Plavix) [facility] [place] Stop: 08/26/19 08:59 Last Admin: 08/02/19 08:21 Dose: 75 mg Documented by: Dextrose (Dextrose 50%) 25 - 50 ml IV UD PRN; Protocol PRN Reason: Hypoglycemia Protocol Stop: 08/26/19 02:44 Dicyclomine HCl (Bentyl) 10 mg PO TID PRN PRN Reason: ABDOMINAL CRAMPS Stop: 08/26/19 02:26 Diphenhydramine HCl (Benadryl Capsule) 50 mg PO Q8 PRN PRN Reason: Cough Stop: 08/27/19 11:32 Last Admin: 07/30/19 20:29 Dose: 50 mg Documented by: Doxycycline Hyclate (Vibramycin) 100 mg PO BID [facility] Stop: 08/03/19 08:59 Last Admin: 08/02/19 08:22 Dose: 100 mg Documented by: Formoterol Fumarate (Perforomist) 20 mcg NEB BIDR [facility] Stop: 08/26/19 18:59 Last Admin: 08/02/19 07:20 Dose: 20 mcg Documented by: Gabapentin (Neurontin) 800 mg PO HS [facility] Stop: 08/26/19 20:59 Last Admin: 08/01/19 20:47 Dose: 800 mg Documented by: Glucagon (Glucagen) 1 mg IM UD PRN; Protocol PRN Reason: Hypoglycemia Protocol Stop: 08/26/19 02:44 Glucose (Glucose 40%) 15 - 30 gm PO UD PRN; Protocol PRN Reason: Hypoglycemia Protocol Stop: 08/26/19 02:44 Glucose (Dex4 Glucose) 4 - 8 tabs PO UD PRN; Protocol PRN Reason: Hypoglycemia Protocol Stop: 08/26/19 02:44 Heparin Sodium (Porcine) (Heparin Sodium (Porcine)) 5,000 units SQ Q8 JOHN Stop: 08/26/19 05:59 Last Admin: 08/02/19 14:01 Dose: 5,000 units Documented by: Heparin Sodium (Porcine) (Heparin Sod 100 Unit/Ml Flush) 5 ml FLUSH PRN PRN PRN Reason: Flush Stop: 08/26/19 22:59 Hydrocodone Bit/Homatropine Methylb (Hycodan) 5 ml PO Q6H PRN PRN Reason: Cough Stop: 08/13/19 12:34 Last Admin: 08/01/19 22:32 Dose: 5 ml Documented by: Hydromorphone HCl (Dilaudid) 0.25 mg IV Q6H PRN PRN Reason: Pain Stop: 08/10/19 02:26 Promethazine HCl 12.5 mg/ (Sodium Chloride) 50.5 mls @ 202 mls/hr IV Q6H PRN PRN Reason: Nausea And Vomiting Stop: 08/26/19 02:26 Insulin Aspart (Novolog Flexpen) 0 units SC ACHS [facility] Stop: 08/26/19 07:29 Last Admin: 08/02/19 12:01 Dose: 11 units Documented by: Insulin Aspart (Novolog Flexpen) 0 units SC DAILY@1000 JOHN Stop: 08/30/19 09:59 Last Admin: 08/02/19 10:36 Dose: Not Given Documented by: Insulin Human NPH (Novolin N Nph) 35 units SC DAILY@0800 JOHN Stop: 08/31/19 07:59 Last Admin: 08/01/19 08:01 Dose: 35 units Documented by: Insulin Human NPH (Novolin N Nph) 0 units SC DAILY@1800 JOHN; Protocol Stop: 08/02/19 18:01 Isosorbide Mononitrate (Imdur Extended Rel) 30 mg PO QAM [facility] Stop: 08/26/19 08:59 Last Admin: 08/02/19 08:21 Dose: 30 mg Documented by: Lorazepam (Ativan) 0.5 mg PO Q6 PRN PRN Reason: Anxiety Stop: 08/26/19 02:26 Last Admin: 07/29/19 12:25 Dose: 0.5 mg Documented by: Metoprolol Tartrate (Lopressor) 25 mg PO BID [facility] Stop: 08/26/19 02:26 Last Admin: 08/02/19 08:21 Dose: 25 mg Documented by: Mirtazapine (Remeron Solutab) 45 mg PO [facility] Stop: 08/26/19 20:59 Last Admin: 08/01/19 20:47 Dose: 45 mg Documented by: Temoaneous (Carbohydrates For Hypoglycemia) 15 - 30 gm PO PRN PRN PRN Reason: Hypoglycemia Treatment Stop: 08/26/19 02:44 Last Admin: 08/02/19 00:13 Dose: 30 gm Documented by: Ruba Information (Consult Glycemic Management Pharmacy) 1 ea N/A UD PRN PRN Reason: Consult Stop: 08/26/19 02:06 Montelukast Sodium (Singulair) 10 mg PO [facility] Stop: 08/27/19 20:59 Last Admin: 08/01/19 20:46 Dose: 10 mg Documented by: Nitroglycerin (Nitrostat) 0.4 mg UD PRN PRN Reason: Chest Pain Stop: 08/26/19 02:26 Last Admin: 07/28/19 14:49 Dose: 0.4 mg Documented by: Oxycodone HCl (Roxicodone Immediate Rel) 5 mg PO Q4H PRN PRN Reason: Pain Stop: 08/10/19 02:26 Pantoprazole Sodium (Protonix) 40 mg PO BID [facility] Stop: 09/01/19 10:29 Last Admin: 08/02/19 12:31 Dose: 40 mg Documented by: Ropinirole HCl (Requip) 1 mg PO [facility] Stop: 08/26/19 20:59 Last Admin: 08/01/19 20:47 Dose: 1 mg Documented by: Tiotropium [place] (Spiriva) [facility] Stop: 08/26/19 13:14 Last Admin: 08/02/19 08:22 Dose: 1 puffs Documented by: Trazodone HCl (Desyrel) 50 mg PO [facility] Stop: 08/26/19 20:59 Last Admin: 08/01/19 20:47 Dose: 50 mg Documented by: (1) Chest pain, unspecified Chest pain type: precordial pain Qualified Code(s): R07.2 - Precordial pain
--- NOTE | 2019-08-02 19:38 | Discharge Summary ---
Date of Service August 02, 2019 Admission HPI Per Admitting Provider History obtained from patient and records. Medical history significant for COPD, CAD status post stent, chronic LBBB, hx CVA as per records, hypertension, hyperlipidemia, DM2 insulin requiring, anxiety/mood disorder, recurrent pancreatitis/hx pancreatic divisum/IPMN as per records, CRI (baseline creatinine 1.2-1.4), chronic anemia (baseline hemoglobin 10-11), past tobacco abuse. Recent confinement 2 weeks ago for stroke like symptoms. Acute CVA ruled out. Patient evaluated by Cardiology during confinement for chest discomfort. Possible angina as per consultation note. Patient seen on follow-up by PCP last week. Coughing and wheezing complaints. Patient prescribed doxycycline Rx with some improvement of symptoms. Yesterday, patient noted worsening cough, shortness of breath symptoms. No aspiration. Poor appetite. Pleuritic substernal pain improved with nitroglycerin. At the ER, IV Solu-Medrol given for COPD exacerbation. 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 Admission Exam Per Admitting Provider Physical Exam: GENERAL: uncomfortable, respiratory distress, abdominal breathing, incessant coughing, obese, dysphonic SKIN: Pallor, warm HEENT: Bespectacled, pale palpebral conjunctivae, no ptosis, dry buccal mucosa NECK : Supple, short neck, no tenderness CHEST : Decreased breath sounds, expiratory wheezes, no tenderness HEART : RRR, systolic murmur ABDOMEN: distention, nontender EXTREMITIES : Minimal LE swelling, no LE tenderness, no other conspicuous deformities noted NEUROLOGIC : Coherent, no facial asymmetry, no other gross focality Principal Diagnosis COPD exacerbation with acute hypoxic respiratory failure, esophageal reflux, persistent cough, chest pain without ACS Discharge Exam Constitutional WD/WN, vitals as above no acute distress (Shortness of breath and cough) and not ill appearing Respiratory + respiratory distress, + labored breathing (Following bouts of cough), + uses accessory muscles and + cough Auscultation: + diminished lung sounds and + wheezes (diffuse); no crackles Cardiovascular Rate/Rhythm: regular rate and regular rhythm Gastrointestinal (Abdomen) Inspection/Auscultation: abdomen normal to inspection and normal bowel sounds Percussion/Palpation: abdomen soft Neurologic moves all extremities; no focal motor deficits Psychiatric Affect: + anxious affect Mood: + anxious mood and + irritable mood Lymphatic no cervical or axillary lymphadenopathy Discharge Data Allergies Allergy/AdvReac Type Severity Reaction Status Date / Time Gadolinium-Containing Allergy Severe NAUSEA,VOMITING, Verified 07/26/19 23:37 Contrast Medi SWELLING/EDEMA AROUND EYES, WHEEZING Iodinated Contrast- Oral and Allergy Severe RASH TO Verified 07/26/19 23:37 IV Dye IVP DYE,NAUSEA, FAINTING, COUGHING, GAGGING, HEADACH Sulfa (Sulfonamide Allergy Severe HIVES, Verified 07/26/19 23:37 Antibiotics) FACIAL AND ARM SWELLING cerivastatin Allergy Intermediate HIVES Verified 07/26/19 23:37 codeine Allergy Intermediate "PRICKLY Verified 07/26/19 23:37 RASH" hydroxyzine Allergy Intermediate N/V Verified 07/26/19 23:37 latex Allergy Intermediate DERMATITIS-PT Verified 07/26/19 23:37 TOLERATED A LATEX CATHETER 03/26/08 Bactrim Allergy Mild RASH Verified 04/29/18 14:40 diphenhydramine Allergy Mild RASH; Verified 07/26/19 23:37 SLEEPINESS WITH "PHARBEDRYL" loratadine Allergy Mild HIVES Verified 07/26/19 23:37 sulfamethoxazole Allergy Mild RASH Verified 07/19/19 15:37 trimethoprim Allergy Mild RASH Verified 07/19/19 15:37 prednisone Allergy Unknown elevates Verified 07/19/19 15:37 blood sugar tetanus toxoid, adsorbed AdvReac Intermediate SWELLING Verified 07/19/19 15:37 AT INJECTION SITE alprazolam AdvReac Unknown "SLEEPY Verified 07/19/19 15:37 STUPER" metformin AdvReac Unknown DIARRHEA Verified 07/19/19 15:37 morphine AdvReac Unknown VOMITING Verified 07/19/19 15:37 simvastatin AdvReac Unknown COUGH, Verified 07/19/19 15:37 "DISCOMFORT" gadobutrol [From Gadavist] AdvReac Anaphylaxis Unverified 07/19/19 15:37 Consultations 07/27/19 00:09 ED Decision to Admit Stat 07/27/19 02:27 Consult Cardiology Routine Consult Case Management - Discharge Planning Routine Consult Pulmonology Routine 08/01/19 09:51 Consult Otolaryngology (Head and Neck) Routine Ordered Studies 07/27/19 06:57 CT chest wo con Urgent 07/27/19 07:01 CT abd pelvis wo con Urgent 08/01/19 09:23 US venous doppler LE BI Routine 08/02/19 07:32 CT sinus brain lab Routine Hospital Course (1) COPD exacerbation: Secondary to complicated bronchitis without any evidence of pneumonia Possible sepsis at presentation Has been on regular bronchodilators, intravenous Solu-Medrol and IV antibiotics She is very anxious and having more shortness of breath with cough Appreciate pulmonary input and recommendation Steroid dose has been increased and has been getting regular cough suppressant Clinically not any better Will get a stat chest x-ray to rule out any fluid overload/pulmonary edema Received 1 mg of bumetanide IV stat and IV fluid discontinued Clinically much better today 07/29 We will continue high-dose of steroid for now; 125 mg IV every 8h Clinically little bit better today on 07/31 Steroid dose has been decreased Remains stable with bouts of cough which is making shortness of breath worse Did very well with physical therapy and does not require any extra oxygen Respiratory symptoms remains stable Cough and shortness of breath are much better Excessive cough/vocal cord dysfunction Especially when she starts talking and in presence of someone in the room Having some bouts with increasing shortness of breath May have vocal cord dysfunction For now will try Hycodan cough syrup Will need to have outpatient follow-up with specialist to rule out vocal cord dysfunction Awaiting speech evaluation-recommended to have ENT evaluation Discussed with Dr. Mary, the ENT specialist, will evaluate her in the morning 08/02 Appreciate ENT input and recommendation Does not have any vocal cord paralysis and CT of the sinus did not show any significant sinusitis Has reflux disease with erythema involving the oropharynx Will increase PPI Persistent cough Robitussin and Tessalon Perles have been discontinued Has been getting Hycodan as needed since yesterday Hypertension elevated secondary discomfort Blood pressure seems to be controlled ARF on CRI secondary to illness Received adequate intravenous fluid initially mostly for suspected sepsis We will monitor renal function Anxiety/mood disorder, at baseline as per patient Symptom more anxious Received Ativan orally Will give morphine 2 mg IV stat for anxiety and shortness of breath Steroid-induced hyperglycemia Appreciate pharmacy input and recommendation (2) Acute hypoxemic respiratory failure: Secondary to have a Continue nasal cannula oxygen Saturating well with 2 L Saturating normal with room air Clinically stable Maintaining saturation at room air (3) Chest pain, unspecified: Presented with chest pain Initial troponin was elevated 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 Stranding is present to suggest chronicity No ACS We will continue current medications No more chest pain and/or palpitation (4) LBBB (left bundle branch block): Chronic left bundle branch block (5) Elevated troponin I level: As above No ACS (6) Seasonal allergies: Condition is worse with increasing allergic symptoms especially cough Will observe DVT prophylax Ultrasound of the legs did not show any DVT Subcu heparin CODE STATUS Full (7) Diabetes mellitus with hyperglycemia: Her blood sugar is elevated Pharmacy consult Blood sugar is going to be high due to use of high-dose of steroid We will continue current treatment May need insulin drip Steroid dose have been decreased Blood sugar is likely to be improving Likely discharge this afternoon Total Time Total Time Spent Total Time Spent (In Minutes): 35 minutes Total Time Includes: Examination of the Patient, Discharge Planning and Medication Reconciliation Discharge Plan Discharge Items Patient Disposition: Home - Home Health Services Reason For Visit: cp, hyperglycemic crisis Discharge Diagnosis: COPD exacerbation with acute hypoxic respiratory failure, esophageal reflux, persistent cough, chest pain without ACS Condition: Fair Discharge Goals: Decrease discomfort, Improve function and Increase independence Activity: Resume your previous activity Non-emergency contact: Primary Care Provider Call non-emergency contact if: you have any medication questions and your symptoms worsen Follow-up/Referrals: Eulogio Anderson DO [Physician] - (Please make an appointment with signal helper within 1 to 2 weeks) Colleen Jefferson DO [Primary Care Provider] - 08/04/19 1:00 pm Diet: Carb Consistent or DM2 and Heart Healthy Addtl Provider Instructions: Please take precaution to avoid falls Prescriptions: New azithromycin [Zithromax] 250 mg Tablet 250 mg PO QAM 4 Days Qty: 4 RF: 0 pantoprazole 40 mg Tablet,Delayed Release (Dr/Ec) 40 mg PO BID 30 Days Qty: 60 RF: 0 hydrocodone-homatropine [Hydromet] 5-1.5 mg/5 mL Syrup 5 ml PO Q6H PRN (Reason: cough) 7 Days Qty: 120 RF: 0 Spiriva with HandiHaler 18 mcg Capsule, W/Inhalation Device 1 puff inhalation QAM 30 Days Qty: 30 RF: 0 montelukast [Singulair] 10 mg Tablet 10 mg PO HS 30 Days Qty: 30 RF: 0 budesonide 0.5 mg/2 mL Suspension For Nebulization 0.5 mg NEB BIDR 15 Days Qty: 60 RF: 0 Continued trazodone 50 mg Tablet 50 mg PO HS RF: 0 ondansetron HCl [Zofran] 4 mg Tablet 4 mg PO QID PRN (Reason: Nausea) RF: 0 aspirin 81 mg Tablet,Delayed Release (Dr/Ec) 1 tab PO QPM RF: 0 lorazepam [Ativan] 0.5 mg Tablet 0.5 mg PO Q6 PRN (Reason: Anxiety) RF: 0 amlodipine [Norvasc] 10 mg Tablet 10 mg PO QAM RF: 0 fluticasone propionate [Flonase Allergy Relief] 50 mcg/actuation [place],Suspension 2 spray INTRANASAL QPM PRN (Reason: allergies) RF: 0 dicyclomine 10 mg Capsule 10 mg PO TID PRN (Reason: ABDOMINAL CRAMPS) RF: 0 ropinirole 1 mg tablet 1 mg PO HS RF: 0 levocetirizine [Xyzal] 5 mg Tablet 2.5 mg PO QPM RF: 0 albuterol sulfate 2.5 mg /3 mL (0.083 %) Solution For Nebulization 2.5 mg INHALATION QID PRN (Reason: Shortness Of Breath Or Wheezing) RF: 0 mirtazapine 45 mg Tablet 45 mg PO HS RF: 0 atorvastatin 40 mg Tablet 40 mg PO QAM Qty: 30 RF: 0 isosorbide mononitrate 30 mg Tablet Extended Release 24 Hr 30 mg PO QAM Qty: 30 RF: 0 clopidogrel 75 mg Tablet 75 mg PO QAM Qty: 30 RF: 2 nitroglycerin [Nitrostat] 0.4 mg Tablet, Sublingual 0.4 mg Sublingual PRN PRN (Reason: chest pain) Qty: 30 RF: 0 Novolin 70/30 U-100 Insulin 100 unit/mL (70-30) suspension 55 unit subcut QAM RF: 0 Novolin 70/30 U-100 Insulin 100 unit/mL (70-30) suspension 35 unit subcut QPM RF: 0 albuterol sulfate [Proventil HFA] 90 mcg/actuation Hfa Aerosol Inhaler 2 puff INHALATION Q4 PRN (Reason: Shortness Of Breath Or Wheezing) RF: 0 gabapentin 400 mg capsule 800 mg PO HS RF: 0 magnesium oxide 400 mg (241.3 mg magnesium) tablet 400 mg PO QPM RF: 0 metoprolol tartrate 25 mg Tablet 25 mg PO BID RF: 0 Discontinued losartan 100 mg tablet 100 mg PO QAM RF: 0 pantoprazole 40 mg tablet,delayed release (DR/EC) 40 mg PO QPM RF: 0 Stand-Alone Forms: [facility] Discharge Orders: Discharge Order (Routine); Ordered 08/02/19 Ordered By: Yony Gonzalez Admission Data Admit Date/Time: 07/27/19 01:05 Attending Provider: Yony Gonzalez Admit Provider: Eulogio Russ Primary Care Provider: Colleen Jefferson Other Providers: Eulogio Russ ; Bruno Chavez ; Eulogio Anderson ; Criss Alarcon Service: Telemetry Other Interventions: Discharge Summary Assessment (RN) Last Done: 08/02/19 19:30
== END 2019-08-02 20:20 | disposition home health service (06) | DRG 871 ==
LOC: ED 21:25 → 2S 07-27 01:05

== ENCOUNTER 2019-08-16 12:30 | Inpatient (IN) ==
[2019-08-16] MEDS ORDERED: dilTIAZem HCl 5 MG/ML 5 ML VIAL IV STA (12:57)
[2019-08-16] MEDS ORDERED: BENZONATATE 100 MG CAPSULE PO ONE (12:57)
[2019-08-16] MEDS ORDERED: SODIUM CHLORIDE 0.9% 1000ML 250 ML IV ONE (12:57)
[2019-08-16 13:59] LABS: Basophils # (auto) 0.03 K/uL (0-0.2); Basophils % (auto) 0.2 %; Eosinophils # (auto) 0.05 K/uL (0-0.5); Eosinophils % (auto) 0.4 %; Hematocrit (blood only) 30.7 % (37-47); Hemoglobin 10.1 g/dL (12.0-16.0); Immature Granulocytes # (auto) 0.03 K/uL (0.00-0.02); Immature Granulocytes % (auto) 0.2 %; Lymphocytes # (auto) 2.54 K/uL (1.2-3.4); Mean Corpuscular Hemoglobin 29.1 pg (25-34); Mean Corpuscular Hgb Conc 32.9 g/dL (32-36); Mean Corpuscular Volume 88.5 fL (80-100); Mean Platelet Volume 9.2 fL (7.4-10.4); Monocytes # (auto) 0.81 K/uL (0.11-0.59); Monocytes % (auto) 6.7 %; Neutrophils # (auto) 8.66 K/uL (1.4-6.5); Neutrophils % (auto) 71.5 %; Platelet Count 258 K/uL (130-400); RDW Standard Deviation 47.8 fL (36.4-46.3); Red Blood Count 3.47 M/uL (4.2-5.4); White Blood Count 12.12 K/uL (4.8-10.8)
--- NOTE | 2019-08-16 14:08 | XRay Report ---
XR chest 1V portable CLINICAL HISTORY: 78 years-old Female presenting with sob, wheezing, concern for pneumonia. TECHNIQUE: Portable upright AP view of the chest was obtained. COMPARISON: 07/26/2019. FINDINGS: Right internal jugular Mediport terminates in the lower SVC. Atherosclerosis of the aortic arch. Card iac silhouette moderately enlarged. Pulmonary vascular prominence. Low lung volumes. Mid to basilar h azy opacity. Bilateral small pleural effusions. No pneumothorax. Osseous structures normal. Cholecyst ectomy clips noted. IMPRESSION: 1. Cardiomegaly with volume overload and suspected pulmonary edema. Mid to basilar infiltrates could less likely represent aspiration or pneumonia. 2. Bilateral small pleural effusions. 3. Low lung volumes. Electronically signed by: Paul Coronado M.D. 08/16/2019 2:07 PM
[2019-08-16] MEDS ORDERED: dilTIAZem HCL 125 MG in DEXTROSE 5% 100 ML IV STA (14:18)
[2019-08-16 14:28] LABS: Albumin Level 2.7 gm/dl (3.4-5.0); BUN Creatinine Ratio 12.5 (10-20); Calcium 8.2 mg/dl (8.5-10.1); Creatinine Clr Calc Pharmacy 22.7 ml/min; Est GFR (African American) 30.1; Magnesium 1.9 mg/dl (1.8-2.4); Potassium 4.5 mmol/L (3.5-5.1)
[2019-08-16 15:09] LABS: Albumin Globulin Ratio 0.7 (0.9-2); Beta-Hydroxybutyrate 5.13 mg/dl (0.2-2.81); Bilirubin,Total 0.5 mg/dl (0.2-1); Thyroid Stimulating Hormone 2.23 uIu/ml (0.300-4.500); Total Protein 6.7 gm/dl (6.4-8.2)
[2019-08-16] MEDS ORDERED: FUROSEMIDE 40 MG/4 ML VIAL IV STA (15:22)
[2019-08-16] MEDS ORDERED: ALBUTEROL 0.083% NEBU SOLN 3 ML VIAL NEB STA (15:24)
[2019-08-16] MEDS ORDERED: FUROSEMIDE 40 MG/4 ML VIAL IV ONE (15:26)
[2019-08-16] MEDS ORDERED: HYDROmorphone INJ 0.5 MG/0.5 ML SYR IV STA ×2 (15:27→19:30)
[2019-08-16] MEDS ORDERED: HYDROmorphone INJ 0.5 MG/0.5 ML SYR ONE (15:30)
[2019-08-16] MEDS ORDERED: Heparin IV Standard *NO* Bolus IV SCH (15:37)
--- NOTE | 2019-08-16 15:48 | History & Physical Report ---
Date of Service August 16, 2019 Assessment & Plan (1) Acute hypoxemic respiratory failure: (2) SOB (shortness of breath): (3) Atrial fibrillation with RVR: This is a 78 yr old F who has significant PMH of CAD, COPD, IDDM2, hx of CVA, CKD3, HTN, IPMN, recurrent pancreatitis, MDD who presents to [facility] ED 2/2 SOB x 1 day. Pt recently confined 07/27-08/02 2/2 Acute hypoxic respiratory failure, COPD exacerbation, chest pain Since being discharged patient has continued with shortness of breath with exertion and at rest, dramatically worsening last evening and associate with chest pain and palpitations In ED patient was noted to be in atrial fibrillation with RVR heart rates 120s to 150s, systolic blood pressure variable between 80 and 120 Initially in ED patient was given diltiazem bolus with decrease in blood pressure but no significant response to heart rate She was then initiated on a diltiazem drip, given benzonatate for cough and IV fluid Upon my evaluation and assessment patient was in acute respiratory distress, making conversation difficult Chest x-ray as compared to prior reveals bilateral pleural effusions and pulmonary vascular congestion She was given IV Lasix 40 mg stat, albuterol nebulizer treatment x1 hour, Dilaudid 0.5 mg secondary to chest pain (morphine allergy and has tolerated before) Seen and evaluated at bedside with ICU team - bedside echo performed After above tx patient HR responded and was 70-80s, blood pressure improved to 140s, respiratory status improving BIPAP ordered, patient stabilized and will transfer to PCU Admit to PCU continue diltiazem gtt for now Initiate Heparin gtt (CHADSVASC 8) pt also on asa/plavix due to stent placement 01/2019 continue Bipap until more stable ABG pending NPO except essential meds until able to tolerate nasal cannula Cardiology consulted - discussed case with Dr. Chavez (4) Diastolic CHF: echocardiogram completed previous hospitalization LVEF 60-65%, mod aortic stenosis, grade I DD 07/27/19 and 07/12/19 Lasix IV 40mg given in ED, monitor response and titrate diuretic appropriately dickinson placed daily weights strict I and O NPO for now, but place on HH and Low Na diet when appropriate on metoprolol, losartan, imdur as outpatient (5) Diabetes mellitus with hyperglycemia: A1C 10.4 07/[address] on insulin drip per protocol Consult glycemic pharmacist for assistance of management, appreciate their input (6) COPD (chronic obstructive pulmonary disease): Continue aggressive pulmonary toilet Budesonide neb twice daily, as recommended per Dr. anderson Xopenex nebulizer treatments QID incentive spirometry (7) CAD (coronary artery disease): On ASA, Plavix, statin, metoprolol, losartan, imdur Patient had stent x2 in 01/2019 Cardiology consulted (8) Chest pain: Patient complains of chest pain but on exam pain is mostly epigastric to palpation She does have history of recurrent pancreatitis Her lipase is normal Initial troponin WNL, ECG without ischemic changes will monitor (9) History of CVA (cerebrovascular accident): Continue ASA, Plavix, statin No deficits (10) HTN (hypertension): Blood pressure initially low on arrival secondary to rapid A. fib Continue metoprolol, Imdur Hold amlodipine and losartan for now, may resume in a.m. if blood pressure allows (11) Dyslipidemia: Continue statin (12) Anxiety: Lorazepam as needed (13) GERD (gastroesophageal reflux disease): Continue Protonix and ranitidine (14) DVT prophylaxis: IV heparin, SCD/teds Disposition: Admit to PCU Follow-up: PCP Dr. Jefferson upon discharge; follow up CT scan 3-[address] RUL ground glass opacity (follows Dr. Anderson) Patient was seen and examined in collaboration with Dr. Guerra, please see addendum Starting 08/17/19 patient will be under the care of Dr. Duque History of Present Illness Chief Complaint: SOB x 1 day. Primary Care Provider: Colleen Jefferson DO This is a 78 yr old F who has significant PMH of CAD, COPD, IDDM2, hx of CVA, CKD3, HTN, IPMN, recurrent pancreatitis, MDD who presents to [facility] ED 2/2 SOB x 1 day. Pt admitted to [facility] 07/27-08/02 secondary to acute hypoxic resp failure and COPD exac. During hospitalization pt had chest pain, elevated troponin, echocardiogram done EF preserved w/o wall motion abnormality and ACS was ruled out. Tx with high dose steroid, antibiotic, aggressive pulmonary toilet. She was discharged to home. Seen in [facility]m [facility] 08/[address] Anderson. Respiratory status not much improved from discharge. Complained of coughing and increasing SOB. Dr. Anderson initiated budesonide neb tx bid, but there is question to what patient was actually using outpt. She was seen in clinic today by PCP. Complains of increasing SOB and chest pain. ECG confirmed afib with RVR and she was sent via EMS to ED. Pt states since discharge she has been feeling SOB. History limited due to patient dyspneic with conversation. SOB is at rest and with exertion. Last night felt SOB increase with lying down and had to sit up in chair. Complains of increase in swelling to lower extremities over the past week. At baseline usually doesn't have swelling. Unknown if weight gain. Denies f/c/s, dizziness, hemoptysis, n/v/d, abdominal pain, dsyuria, increased urgency with urination, hematuria. She does complain of substernal chest pain that radiates to L side of chest, made worse with leaning forward, palpitations, lightheadedness. Pt states she lives at home alone and is usually able to amb ulate with out assist device. At baseline usually has mild LAL. Allergies Allergy/AdvReac Type Severity Reaction Status Date / Time Gadolinium-Containing Allergy Severe NAUSEA,VOMITING, Verified 08/16/19 14:32 Contrast Medi SWELLING/EDEMA AROUND EYES, WHEEZING Iodinated Contrast Media Allergy Severe RASH TO Verified 08/16/19 14:32 IVP DYE,NAUSEA, FAINTING, COUGHING, GAGGING, HEADACH Sulfa (Sulfonamide Allergy Severe HIVES, Verified 08/16/19 14:32 Antibiotics) FACIAL AND ARM SWELLING cerivastatin Allergy Intermediate HIVES Verified 08/16/19 14:32 codeine Allergy Intermediate "PRICKLY Verified 08/16/19 14:32 RASH" hydroxyzine Allergy Intermediate N/V Verified 08/16/19 14:32 latex Allergy Intermediate DERMATITIS-PT Verified 08/16/19 14:32 TOLERATED A LATEX CATHETER 03/26/08 Bactrim Allergy Mild RASH Verified 04/29/18 14:40 diphenhydramine Allergy Mild RASH; Verified 08/16/19 14:32 SLEEPINESS WITH "PHARBEDRYL" loratadine Allergy Mild HIVES Verified 08/16/19 14:32 sulfamethoxazole Allergy Mild RASH Verified 08/16/19 14:32 trimethoprim Allergy Mild RASH Verified 08/16/19 14:32 prednisone Allergy Unknown elevates Verified 08/16/19 14:32 blood sugar tetanus toxoid, adsorbed AdvReac Intermediate SWELLING Verified 08/16/19 14:32 AT INJECTION SITE alprazolam AdvReac Unknown "SLEEPY Verified 08/16/19 14:32 STUPER" metformin AdvReac Unknown DIARRHEA Verified 08/16/19 14:32 morphine AdvReac Unknown VOMITING Verified 08/16/19 14:32 simvastatin AdvReac Unknown COUGH, Verified 08/16/19 14:32 "DISCOMFORT" gadobutrol [From Gadavist] AdvReac Anaphylaxis Unverified 08/16/19 14:32 Home Medications Home Medications Medication Instructions Recorded Confirmed Type amlodipine [Norvasc] 10 mg PO QAM 08/24/18 08/16/19 History aspirin 1 tab PO QPM 08/24/18 08/16/19 History dicyclomine 10 mg PO TID PRN 08/24/18 08/16/19 History fluticasone propionate [Flonase 2 spray INTRANASAL QPM PRN 08/24/18 08/16/19 History Allergy Relief] lorazepam [Ativan] 0.5 mg PO Q6 PRN 08/24/18 08/16/19 History ondansetron HCl [Zofran] 4 mg PO Q8H PRN 08/24/18 08/16/19 History trazodone 50 mg PO HS 08/24/18 08/16/19 History albuterol sulfate 2.5 mg INHALATION QID PRN 01/26/19 08/16/19 History levocetirizine [Xyzal] 2.5 mg PO QPM 01/26/19 08/16/19 History mirtazapine 45 mg PO HS 01/26/19 08/16/19 History ropinirole 1 mg PO HS 01/26/19 08/16/19 History atorvastatin 40 mg PO QAM #30 tab 01/28/19 08/16/19 Rx clopidogrel 75 mg PO QAM #30 tab 01/28/19 08/16/19 Rx isosorbide mononitrate 30 mg PO QAM #30 tab 01/28/19 08/16/19 Rx nitroglycerin [Nitrostat] 0.4 mg SUBLINGUAL PRN PRN #30 tab 01/28/19 08/16/19 Rx Novolin 70/30 U-100 Insulin 35 unit SUBCUT QPM 05/04/19 08/16/19 History Novolin 70/30 U-100 Insulin 55 unit SUBCUT QAM 05/04/19 08/16/19 History albuterol sulfate [Proventil HFA] 2 puff INHALATION Q4 PRN 05/04/19 08/16/19 History gabapentin 800 mg PO HS 07/11/19 08/16/19 History magnesium oxide 400 mg PO QPM 07/11/19 08/16/19 History metoprolol tartrate 25 mg PO BID 07/11/19 08/16/19 History budesonide 0.5 mg NEB BIDR 15 Days #60 ml 08/02/19 08/16/19 Rx montelukast [Singulair] 10 mg PO HS 30 Days #30 tab 08/02/19 08/16/19 Rx pantoprazole 40 mg PO BID 30 Days #60 tab 08/02/19 08/16/19 Rx fexofenadine 60 mg tablet 60 mg PO DAILY tab 08/11/19 08/16/19 History ranitidine 300 mg capsule 300 mg PO HS #30 cap 08/11/19 08/16/19 History cholestyramine-aspartame 4 g PO DAILY 08/16/19 08/16/19 History guaifenesin 100 mg PO Q6H PRN 08/16/19 08/16/19 History hydrocodone-homatropine 5 ml PO Q6H PRN 08/16/19 08/16/19 History loratadine 10 mg PO DAILY 08/16/19 08/16/19 History losartan 100 mg PO DAILY 08/16/19 08/16/19 History mometasone-formoterol [Dulera] 2 puff INHALATION BID 08/16/19 08/16/19 History simethicone 80 mg PO Q6H PRN 08/16/19 08/16/19 History Past Med/Surg History Medical History GERD (gastroesophageal reflux disease) Osteoarthritis (Chronic) Seasonal allergies (Chronic) Aortic stenosis (Chronic) moderate Pancreatitis (Chronic) Valvular heart disease Non-STEMI (non-ST elevated myocardial infarction) 01/2019 Left bundle branch block Giant cell arteritis (Resolved) Gastroparesis (Chronic) Dyslipidemia (Chronic) Depression (Chronic) HTN (hypertension) (Chronic) Insomnia (Chronic) RLS (restless legs syndrome) (Chronic) Peripheral neuropathy (Chronic) Pancreatic cyst (Chronic) Anxiety (Chronic) COPD (chronic obstructive pulmonary disease) (Chronic) Diabetes mellitus, type II (Chronic) poorly controlled Sleep apnea (Chronic) PT DENIES/NO DEVICE Chronic pancreatitis (Chronic) Cerebrovascular disease (Chronic) "history stroke and TIA" L sided weakness. Fatty liver (Chronic) Esophageal dysmotility (Chronic) Pancreatic divisum (Chronic) CKD (chronic kidney disease), stage III (Chronic) F/U PCP Surgical History History of ERCP (Resolved) x3 with stents. ERCP 04/30/18. MAC 3, grade 2 view. 7.0 ETT placed. No issues. History of bilateral tubal ligation (Resolved) S/P cardiac catheterization (Resolved) 01/2019 [facility] X 2-TOTAL 2 STENTS 04/2019 non obstructive disease History of cataract surgery (Chronic) both eyes Family History Daughter No problems noted. Father Family history of diabetes mellitus Family/Other Family history of diabetes mellitus Mother Family history of diabetes mellitus Grandfather Family history of diabetes mellitus Grandmother Family history of diabetes mellitus Social History Preferred Language: [place] Communication Ability: Effective Custom Home Installer Required: No Beliefs That Will Affect Care: None marital status: / Current Living Situation: Alone Current Living Situation Comment: january 21, no longer has drivers license - stroke Other Information That Helps Us Care for You: No Feels Safe at Home: Yes Safety Concerns: Feels Safe At This Time Smoking Status: Never smoker Do You Dip or Chew Tobacco: No ; Second Hand Exposure: No ; Tobacco Cessation Education Requested by Patient: No Hx Alcohol Use: No Hx Substance Use: No Review of Systems Review of Systems: All systems reviewed & are unremarkable except as noted in HPI & below Physical Exam Physical Exam: Constitutional: Critically ill, WD, elderly, female, vitals as above, visibly in respiratory distress, tachypneic, accessory muscle use, dyspneic with conversation AD, sitting up in bed Head: Normocephalic, Atraumatic Eyes: PERRL, conjunctivae normal, anicteric sclerae ENMT: external ear and nose normal, oropharynx normal Neck: trachea midline, no thyromegaly normal visual inspection Respiratory: increased respiratory effort, lungs clear to auscultation, with bibasilar wheeze/rhonchi, no rales. Increased insp/exp effort RR at 30, + accessory muscle use Cardiovascular: IRR/IRR, no murmur, +1 pretibial edema R > L Vessels: no JVD or carotid bruit Chest: normal inspection of chest, no pain to palpation Abdomen: normal bowel sounds, soft, +pain to palpation epigastrum, +rebound, no guarding or rigidity, no hepatosplenomegaly Musculoskeletal: no cyanosis or clubbing, extremities motor strength 5/5 Skin: no rashes, warm and dry normal turgor Neurologic: PERRL, EOMI, accommodation nl, no face palsy, no dysarthria CN's II-XI intact bilaterally and moves all extremities Psychiatric: A+Ox3, anxious affect Lymphatic: no cervical or axillary lymphadenopathy : deferred Results & Data Vital Signs (Past 12 Hours) Vital Signs Temp Pulse Pulse Resp BP BP Pulse Ox 08/16/19 15:33 124 H 30 H 96 08/16/19 14:12 139 H 24 111/92 92 08/16/19 12:50 88 L 08/16/19 12:41 36.5 C 140 H 25 H 111/78 88 L Laboratory Results Short CBC 08/16/19 Range/Units 13:50 WBC 12.12 H (4.8-10.8) K/uL Hgb 10.1 L (12.0-16.0) g/dL Hct 30.7 L (37-47) % Plt Count 258 (130-400) K/uL BMP 08/16/19 13:50 Sodium 136 Potassium 4.5 Chloride 106 Carbon Dioxide 22 BUN 23 H Creatinine 1.83 H Glucose 365 H* Calcium 8.2 L Liver Function 08/16/19 Range/Units 13:50 Total Bilirubin 0.5 (0.2-1) mg/dl AST 13 L (15-37) U/L ALT 21 (12-78) U/L Alkaline Phosphatase 108 (45-117) U/L Albumin 2.7 L (3.4-5.0) gm/dl Diagnostic Findings CXR: IMPRESSION: 1. Cardiomegaly with volume overload and suspected pulmonary edema. Mid to basilar infiltrates could less likely represent aspiration or pneumonia. 2. Bilateral small pleural effusions. 3. Low lung volumes. Medications Administered Diltiazem HCl 125 mg/ Dextrose 125 mls @ 5 mls/hr IV .Q24H STA; Protocol Stop: 08/17/19 14:17 Last Admin: 08/16/19 15:09 Dose: 5 mg/hr, 5 mls/hr Documented by: [id number] Cosigned by: [id number] Discontinued Medications Albuterol (Ventolin 0.083% 2.5mg/3ml) 10 mg NEB NOW STA Stop: 08/16/19 15:25 Last Admin: 08/16/19 15:29 Dose: 10 mg Documented by: [id number] Benzonatate (Tessalon Perle) 100 mg PO NOW ONE Stop: 08/16/19 12:58 Last Admin: 08/16/19 14:06 Dose: 100 mg Documented by: [id number] Diltiazem HCl (Cardizem) 5 mg IV NOW STA Stop: 08/16/19 12:58 Last Admin: 08/16/19 14:06 Dose: 5 mg Documented by: [id number] Cosigned by: [id number] Furosemide (Lasix) 40 mg IV NOW STA Stop: 08/16/19 15:23 Last Admin: 08/16/19 15:41 Dose: 40 mg Documented by: [id number] Furosemide (Lasix) Confirm Administered Dose 40 mg IV .STK-MED ONE Stop: 08/16/19 15:27 Last Admin: 08/16/19 15:41 Dose: Not Given Documented by: [id number] Hydromorphone HCl (Dilaudid) 0.5 mg IV NOW STA Stop: 08/16/19 15:28 Last Admin: 08/16/19 15:31 Dose: 0.5 mg Documented by: [id number] Hydromorphone HCl (Dilaudid) Confirm Administered Dose 0.5 mg .ROUTE .STK-MED ONE Stop: 08/16/19 15:31 Last Admin: 08/16/19 15:41 Dose: 0.5 mg Documented by: [id number] Sodium Chloride (Nss 1000ml) 250 mls @ 999 mls/hr IV .Q16M ONE Stop: 08/16/19 13:12 Last Admin: 08/16/19 14:06 Dose: 999 mls/hr Documented by: [id number] ECG Rate (beats per minute): 125 Rhythm: atrial fibrillation Code Status & VTE Plan Code Status Full Code VTE Prophylaxis Plan VTE Prophylaxis will be ordered: Yes Supervising Physician Co-Signing Physician Notes I have seen and examined the patient and have discussed the case with the provider above. I agree with the assessment and plan as stated. Please see "supplemental communication note" and treat accordingly. DO Charlie (1) CAD (coronary artery disease) Associated angina: with unspecified angina Coronary Disease-Associated Artery/Lesion type: [place] artery [place] vs. transplanted heart: [place] heart Qualified Code(s): I25.119 - Atherosclerotic heart disease of [place] coronary artery with unspecified angina pectoris
--- NOTE | 2019-08-16 16:04 | Communication Note ---
Date of Service: August 16, 2019 78 yo F with a h/o COPD and a recent hospitalization within the last month for a COPD exacerbation presented to the ER via ambulance today with increased work of breathing which has progressed over the past week. She reports a cough since discharge two weeks ago that has gotten worse. She is now hypoxic and was found to be in new onset atrial fibrillation with rapid ventricular response. While in the ER she was having uncontrollable coughing fits, and was dropping her oxygen saturations to the high 80s with quick recovery on oxygen supplement ation. She was given diltiazem bolus and drip per the ER provider. On my arrival her heart rate was in the 150s and her BP was in the low 100s systolic. She was in respiratory distress and on exam she appeared volume overloaded with wheezing heard throughout all lung page. She was given Lasix IV 40mg and a 1hr neb treatment. She was also given Dilaudid 0.5mg IV x one dose for some chest pain likely 2/2 to her profuse coughing (allergy to morphine but stated this was OK). Troponin was negative and EKG revealed atrial fibrillation with no clear evidence for active ischemia. A dickinson catheter was placed for accurate I/Os. After about 30 minutes her heart rate was more controlled into the 70s and she appeared to be breathing more comfortably. The clinical research management associate did evaluate her during this time as her tachypnea and respiratory distress were initially concerning for the possible need for intubation. BIPAP was placed temporarily and an ABG is pending. Clinically she is already improving. Will transfer to the PCU now. ABG was reviewed and within normal limits. She was able to come off the BIPAP and continued to do well on the supplemental oxygen. Intravenous insulin administration was delayed somewhat as she only had one line available for access, which was her Port, and diltiazem was running through this. IV heparin and insulin were held off until a PIV could be established by the IV team. In the meantime, she has converted to sinus rhythm and has a controlled rate, so will stop the dilt drip and cont with PO. Cards consulted in am. Cont treatment of CHF exacerbation. Diuresed 500 cc since Lasix was given in the ER. Code status is Full. Granddaughter (Beverly) or [id number] are POA for her. DO Charlie
[2019-08-16 16:42] LABS: Base Excess ABG -4.8 mEq/L (-9-1.8); HCO3 ABG 19 mmol/L (19-24); Oxygen Saturation ABG 97.1 % (90-95); PCO2 ABG 31 mmHg (35-46); PO2 ABG 96 mm/Hg (80-95); pH ABG 7.41 (7.35-7.45)
[2019-08-16 16:43] LABS: Allen Test Pos (Pos)
[2019-08-16] MEDS ORDERED: MODERATE STRESS LEVEL ONE (18:18)
[2019-08-16] MEDS ORDERED: HEPARIN SODIUM/DEXTROSE 25,000 UNITS/500 ML BAG IV SCH (18:18)
[2019-08-16] MEDS ORDERED: POLYETHYLENE (MIRALAX) 17 GM PACK PO PRN (18:18)
[2019-08-16] MEDS ORDERED: GLUCAGON FOR INJ 1 MG VIAL SQ PRN (18:18)
[2019-08-16] MEDS ORDERED: GLUCOSE 40% GEL 15 GM TUBE PO PRN (18:18)
[2019-08-16] MEDS ORDERED: GLUCOSE 10 TABS/TUBE PO PRN (18:18)
[2019-08-16] MEDS ORDERED: LORazepam 0.5 MG TAB PO PRN (18:18)
[2019-08-16] MEDS ORDERED: DEXTROSE 50% 50 ML SYRINGE IV PRN (18:18)
[2019-08-16] MEDS ORDERED: Heparin IV Standard *NO* Bolus IV ONE (18:18)
[2019-08-16] MEDS ORDERED: MAGNESIUM HYDROXIDE SUSP 30 ML UDC PO PRN (18:18)
[2019-08-16] MEDS ORDERED: ALUMINUM/MAGNESIUM SUSP 30 ML UDC PO PRN (18:18)
[2019-08-16] MEDS ORDERED: INSULIN PROTOCOL GOAL RANGE ONE (18:18)
[2019-08-16] MEDS ORDERED: ONDANSETRON INJ 2 MG/ML 2 ML VIAL IV PRN (18:18)
[2019-08-16] MEDS ORDERED: ACETAMINOPHEN 325 MG TAB PO PRN (18:18)
[2019-08-16] MEDS ORDERED: PHARMACY GLYCEMIC MGMT CONSULT PRN (18:38)
[2019-08-16] MEDS ORDERED: INSULIN HUMAN NPH SC ONE ×2 (19:15)
[2019-08-16] MEDS ORDERED: INSULIN REGULAR 250 UNITS in SODIUM CHLORIDE 0.9% 247.5 ML IV SCH (19:30)
[2019-08-16] MEDS ORDERED: INSULIN HUMAN REGULAR IV BOLUS 2 UNITS in SYRINGE 0 ML IV ONE (19:30)
[2019-08-16] MEDS: INSULIN ASPART 100 UNITS/ML 3 ML PEN SC SCH ×2 (19:32→20:48)
[2019-08-16 19:45] LABS: Partial Thromboplastin Ratio 0.9; Partial Thromboplastin Time 24.2 Seconds (21.0-31.0)
--- NOTE | 2019-08-16 20:26 | Pharmacy Report ---
Glycemic Control Consultation - Date of Service August 16, 2019 - Scope Scope: Glycemic Pharmacist consulted by Bnoy Ruiz PA-C, pa-c on 08/16/19 for glycemic control and to write orders per [facility] inpatient glycemic control protocol - Objective Weight: 80 kg Accuchecks BSG (last 24hrs): 08/16/19 08/16/19 08/16/19 13:50 18:53 18:54 Glucose 365 H* POC Glucose 361 H* 370 H* Laboratory Data (last 24hrs): 08/16/19 13:50 Potassium 4.5 Carbon Dioxide 22 Anion Gap 8.0 Creatinine 1.83 H Est Cr Clr Drug Dosing 22.7 Beta-Hydroxybutyric Acd 5.13 H HbA1c: 10.4% on 07/27/19 - Recent Pertinent Medications Outpatient Anti-diabetic Regimen: * Novolin 70/30 premixed insulin, 55 units in AM with breakfast and 35 units in PM with dinner * Total daily insulin dose = 90 units Risk Factors for Insulin Resistance: * Missed insulin dosing this morning * Dextrose containing IVF * Stress - Assessment & Plan Assessment & Plan: ASSESSMENT: * 78yo T2DM female known to pharmacy from previous admissions/glycemic consults- most recently in the beginning of this month * Pt admitted with ARF/A fib w/ RVR; initiated on heparin and cardizem infusions * Pt with severe hyperglycemia on admissions secondary to stress and missed insulin dosing- compounded by poop baseline control * Provider ordered IV insulin infusion --> will add SQ basal bolus to facilitate transition process. Nursing will be able to just stop the infusion overnight if transition criteria met. This initial overlap will prevent stopping the infusion without long acting insulin on board, speeds the transition from IV to SQ by eliminating the need to overlap at the time of transition, and helps to prevent rebound hyperglycemia when infusion stopped. * Labs do not show DKA/HHS; just hyperglycemia PLAN FOR INPATIENT GLYCEMIC CONTROL: * Starting IV insulin infusion per moderate stress protocol * Goal Range 110 - 180 mg/dl * Will use a fixed insulin to CHO ratio of 1 unit for every 4g CHO consumed per previous admissions. This is not really going to affect orders now as Pt NPO * Nursing can dc/stop IV insulin infusion when BOTH of the following criteria met: * 1. BSG <180 mg/dl x 2 checks 1-2 hrs apart * AND * 2. IV insulin infusion rate 1 unit/hr or below * Holding outpatient pre-mixed insulin and use SQ basal bolus with NPH + NovoLog when criteria met * Pre-mixed insulin is difficult to titrate since it is already in a fixed distribution of basal:prandial insulin. Continuing pre-mixed insulin for admission typically lead to hypoglycemia d/t changing PO status but rapid acting insulin is unable to be held. * Basal insulin * NPH 50 units SQ x 1 now, then, * NPH 40 units in AM with breakfast + 30 units of NPH in PM with dinner (this is stressed outpatient dosing c/w previous admissions) * Bolus insulin * Nutritional / Prandial insulin per carb ratio of 1 unit per 4 grams CHO consumed * Will add CF and goal range after IV insulin infusion dc * Please note that the plan above was derived based on current level of insulin resistance and hospital stress. These recommendations are appropriate for inpatient admission only. Plan of care upon discharge will need to be reassessed to avoid potential outpatient hypo/hyperglycemia. Thank you.
--- NOTE | 2019-08-16 20:40 | Emergency Department Note ---
Entered by Laisha Treviño acting as a scribe for Monster Blue MD History of Present Illness General Chief complaint: Shortness of Breath/Dyspnea Stated complaint: CP Source: patient Mode of arrival: EMS Limitations: no limitations History of Present Illness Onset (ago): day(s) 2 Location: chest Radiation: non-radiation Pain Consistency: + constant Maximum Pain Intensity: 3 Current Pain Intensity: 3 Relieved By: + other (Oxygen) Exacerbated By: + other (exertion) Associated symptoms: + chest pain; no fever/chills and no nausea/vomiting Treatments prior to arrival: other (Nitro, ) The patient is a 78 year old female who presents to the ED with complaints of worsening shortness of breath for the past 2 days. She was brought to the ED via EMS. She states she has been coughing and with the cough she experiences central chest pain, rating her discomfort as a 3/10 in severity. She took a Nitro tablet this morning and states it did not provide much relief. She is not on NC O2 chronically, though she was placed on O2 in the ED. Exertion worsens her breathing. The patient was at her doctors office this morning when she was referred here to the ED for further evaluation because of new onset atrial fibrillation. She denies any recent fevers or vomiting. Home Medications Home Medications Medication Instructions Recorded Confirmed Type amlodipine [Norvasc] 10 mg PO QAM 08/24/18 08/16/19 History aspirin 1 tab PO QPM 08/24/18 08/16/19 History dicyclomine 10 mg PO TID PRN 08/24/18 08/16/19 History fluticasone propionate [Flonase 2 spray INTRANASAL QPM PRN 08/24/18 08/16/19 History Allergy Relief] lorazepam [Ativan] 0.5 mg PO Q6 PRN 08/24/18 08/16/19 History ondansetron HCl [Zofran] 4 mg PO Q8H PRN 08/24/18 08/16/19 History trazodone 50 mg PO HS 08/24/18 08/16/19 History albuterol sulfate 2.5 mg INHALATION QID PRN 01/26/19 08/16/19 History levocetirizine [Xyzal] 2.5 mg PO QPM 01/26/19 08/16/19 History mirtazapine 45 mg PO HS 01/26/19 08/16/19 History ropinirole 1 mg PO HS 01/26/19 08/16/19 History atorvastatin 40 mg PO QAM #30 tab 01/28/19 08/16/19 Rx clopidogrel 75 mg PO QAM #30 tab 01/28/19 08/16/19 Rx isosorbide mononitrate 30 mg PO QAM #30 tab 01/28/19 08/16/19 Rx nitroglycerin [Nitrostat] 0.4 mg SUBLINGUAL PRN PRN #30 tab 01/28/19 08/16/19 Rx Novolin 70/30 U-100 Insulin 35 unit SUBCUT QPM 05/04/19 08/16/19 History Novolin 70/30 U-100 Insulin 55 unit SUBCUT QAM 05/04/19 08/16/19 History albuterol sulfate [Proventil HFA] 2 puff INHALATION Q4 PRN 05/04/19 08/16/19 History gabapentin 800 mg PO HS 07/11/19 08/16/19 History magnesium oxide 400 mg PO QPM 07/11/19 08/16/19 History metoprolol tartrate 25 mg PO BID 07/11/19 08/16/19 History budesonide 0.5 mg NEB BIDR 15 Days #60 ml 08/02/19 08/16/19 Rx montelukast [Singulair] 10 mg PO HS 30 Days #30 tab 08/02/19 08/16/19 Rx pantoprazole 40 mg PO BID 30 Days #60 tab 08/02/19 08/16/19 Rx fexofenadine 60 mg tablet 60 mg PO DAILY tab 08/11/19 08/16/19 History ranitidine 300 mg capsule 300 mg PO HS #30 cap 08/11/19 08/16/19 History cholestyramine-aspartame 4 g PO DAILY 08/16/19 08/16/19 History guaifenesin 100 mg PO Q6H PRN 08/16/19 08/16/19 History hydrocodone-homatropine 5 ml PO Q6H PRN 08/16/19 08/16/19 History loratadine 10 mg PO DAILY 08/16/19 08/16/19 History losartan 100 mg PO DAILY 08/16/19 08/16/19 History mometasone-formoterol [Dulera] 2 puff INHALATION BID 08/16/19 08/16/19 History simethicone 80 mg PO Q6H PRN 08/16/19 08/16/19 History Allergies Allergy/AdvReac Type Severity Reaction Status Date / Time Gadolinium-Containing Allergy Severe NAUSEA,VOMITING, Verified 08/16/19 14:32 Contrast Medi SWELLING/EDEMA AROUND EYES, WHEEZING Iodinated Contrast Media Allergy Severe RASH TO Verified 08/16/19 14:32 IVP DYE,NAUSEA, FAINTING, COUGHING, GAGGING, HEADACH Sulfa (Sulfonamide Allergy Severe HIVES, Verified 08/16/19 14:32 Antibiotics) FACIAL AND ARM SWELLING cerivastatin Allergy Intermediate HIVES Verified 08/16/19 14:32 codeine Allergy Intermediate "PRICKLY Verified 08/16/19 14:32 RASH" hydroxyzine Allergy Intermediate N/V Verified 08/16/19 14:32 latex Allergy Intermediate DERMATITIS-PT Verified 08/16/19 14:32 TOLERATED A LATEX CATHETER 03/26/08 Bactrim Allergy Mild RASH Verified 04/29/18 14:40 diphenhydramine Allergy Mild RASH; Verified 08/16/19 14:32 SLEEPINESS WITH "PHARBEDRYL" loratadine Allergy Mild HIVES Verified 08/16/19 14:32 sulfamethoxazole Allergy Mild RASH Verified 08/16/19 14:32 trimethoprim Allergy Mild RASH Verified 08/16/19 14:32 prednisone Allergy Unknown elevates Verified 08/16/19 14:32 blood sugar tetanus toxoid, adsorbed AdvReac Intermediate SWELLING Verified 08/16/19 14:32 AT INJECTION SITE alprazolam AdvReac Unknown "SLEEPY Verified 08/16/19 14:32 STUPER" metformin AdvReac Unknown DIARRHEA Verified 08/16/19 14:32 morphine AdvReac Unknown VOMITING Verified 08/16/19 14:32 simvastatin AdvReac Unknown COUGH, Verified 08/16/19 14:32 "DISCOMFORT" gadobutrol [From Gadavist] AdvReac Anaphylaxis Unverified 08/16/19 14:32 Past Med/Surg History Medical History GERD (gastroesophageal reflux disease) Osteoarthritis (Chronic) Seasonal allergies (Chronic) Aortic stenosis (Chronic) moderate Pancreatitis (Chronic) Valvular heart disease Non-STEMI (non-ST elevated myocardial infarction) 01/2019 Left bundle branch block Giant cell arteritis (Resolved) Gastroparesis (Chronic) Dyslipidemia (Chronic) Depression (Chronic) HTN (hypertension) (Chronic) Insomnia (Chronic) RLS (restless legs syndrome) (Chronic) Peripheral neuropathy (Chronic) Pancreatic cyst (Chronic) Anxiety (Chronic) COPD (chronic obstructive pulmonary disease) (Chronic) Diabetes mellitus, type II (Chronic) poorly controlled Sleep apnea (Chronic) PT DENIES/NO DEVICE Chronic pancreatitis (Chronic) Cerebrovascular disease (Chronic) "history stroke and TIA" L sided weakness. Fatty liver (Chronic) Esophageal dysmotility (Chronic) Pancreatic divisum (Chronic) CKD (chronic kidney disease), stage III (Chronic) F/U PCP Surgical History History of ERCP (Resolved) x3 with stents. ERCP 04/30/18. MAC 3, grade 2 view. 7.0 ETT placed. No issues. History of bilateral tubal ligation (Resolved) S/P cardiac catheterization (Resolved) 01/2019 [facility] X 2-TOTAL 2 STENTS 04/2019 non obstructive disease History of cataract surgery (Chronic) both eyes Family History Daughter No problems noted. Father Family history of diabetes mellitus Family/Other Family history of diabetes mellitus Mother Family history of diabetes mellitus Grandfather Family history of diabetes mellitus Grandmother Family history of diabetes mellitus Social History Preferred Language: [place]ankan Communication Ability: Effective Staffing Coordinator Required: No Beliefs That Will Affect Care: None marital status: / Current Living Situation: Alone Current Living Situation Comment: january 21, no longer has drivers license - stroke Other Information That Helps Us Care for You: No Feels Safe at Home: Yes Safety Concerns: Feels Safe At This Time Smoking Status: Never smoker Do You Dip or Chew Tobacco: No ; Second Hand Exposure: No ; Tobacco Cessation Education Requested by Patient: No Hx Alcohol Use: No Hx Substance Use: No Review of Systems See HPI for pertinent positives & negatives. and A total of 10 systems reviewed and were otherwise negative Physical Exam Vital Signs Vital Signs - 24 hr 08/16/19 12:41 08/16/19 12:50 08/16/19 14:12 Temperature 36.5 C Temperature Source Oral Sepsis Recent Fever Within 48 Hours No Sepsis New/Unexplained Change in Mental Status No Sepsis Action Taken by Nursing No Action Required Oxygen Flow Rate - Titration 2 Pulse Oximetry Post Tiitration 92 Pulse Rate 140 H Pulse Rate [Apical] 139 H Pulse Rate from SpO2 Sensor Pulse Rhythm Irregular Pulse Rhythm [Apical] Irregular Respiratory Rate 25 H 24 Respiratory Effort / Characteristics Short of Breath Respiratory Pattern Regular Blood Pressure 111/78 Blood Pressure [Right Arm] 111/92 Blood Pressure Mean 89 Blood Pressure Mean [Right Arm] 98 Pulse Oximetry 88 L 88 L 92 Oxygen Delivery Method Room Air Room Air Nasal Cannula Nasal Cannula Oxygen Flow Rate 2 08/16/19 14:16 08/16/19 14:30 08/16/19 15:04 Temperature Temperature Source Sepsis Recent Fever Within 48 Hours Sepsis New/Unexplained Change in Mental Status Sepsis Action Taken by Nursing Oxygen Flow Rate - Titration Pulse Oximetry Post Tiitration Pulse Rate 122 H 133 H 137 H Pulse Rate [Apical] Pulse Rate from SpO2 Sensor 113 H 123 H 137 H Pulse Rhythm Pulse Rhythm [Apical] Respiratory Rate 32 H 37 H 32 H Respiratory Effort / Characteristics Respiratory Pattern Blood Pressure 111/92 120/77 107/85 Blood Pressure [Right Arm] Blood Pressure Mean 98 91 92 Blood Pressure Mean [Right Arm] Pulse Oximetry 90 92 93 Oxygen Delivery Method Oxygen Flow Rate 08/16/19 15:14 08/16/19 15:20 08/16/19 15:31 Temperature Temperature Source Sepsis Recent Fever Within 48 Hours Sepsis New/Unexplained Change in Mental Status Sepsis Action Taken by Nursing Oxygen Flow Rate - Titration Pulse Oximetry Post Tiitration Pulse Rate 134 H 143 H 136 H Pulse Rate [Apical] Pulse Rate from SpO2 Sensor 128 H 137 H 137 H Pulse Rhythm Pulse Rhythm [Apical] Respiratory Rate 32 H 34 H 17 Respiratory Effort / Characteristics Respiratory Pattern Blood Pressure 120/93 101/86 101/80 Blood Pressure [Right Arm] Blood Pressure Mean 102 91 87 Blood Pressure Mean [Right Arm] Pulse Oximetry 94 94 94 Oxygen Delivery Method Oxygen Flow Rate 08/16/19 15:33 08/16/19 15:40 08/16/19 15:51 Temperature Temperature Source Sepsis Recent Fever Within 48 Hours Sepsis New/Unexplained Change in Mental Status Sepsis Action Taken by Nursing Oxygen Flow Rate - Titration Pulse Oximetry Post Tiitration Pulse Rate 130 H 80 Pulse Rate [Apical] 124 H Pulse Rate from SpO2 Sensor 129 H 81 Pulse Rhythm Pulse Rhythm [Apical] Respiratory Rate 30 H 20 24 Respiratory Effort / Characteristics Spontaneous Short of Breath Respiratory Pattern Blood Pressure 108/75 141/78 H Blood Pressure [Right Arm] Blood Pressure Mean 86 99 Blood Pressure Mean [Right Arm] Pulse Oximetry 96 98 97 Oxygen Delivery Method Oxymask Oxygen Flow Rate 2 08/16/19 16:00 08/16/19 16:10 Temperature Temperature Source Sepsis Recent Fever Within 48 Hours Sepsis New/Unexplained Change in Mental Status Sepsis Action Taken by Nursing Oxygen Flow Rate - Titration Pulse Oximetry Post Tiitration Pulse Rate 81 79 Pulse Rate [Apical] Pulse Rate from SpO2 Sensor 80 79 Pulse Rhythm Pulse Rhythm [Apical] Respiratory Rate 19 20 Respiratory Effort / Characteristics Respiratory Pattern Blood Pressure 132/53 L 125/59 L Blood Pressure [Right Arm] Blood Pressure Mean 79 81 Blood Pressure Mean [Right Arm] Pulse Oximetry 97 99 Oxygen Delivery Method Oxygen Flow Rate Constitutional: Vital signs reviewed. Eyes: Pupils are equal round reactive to light. Conjunctiva are noninjected. ENT: Pharynx is clear without erythema or exudate. Mucous membranes are dry. Neck supple without meningeal signs. Respiratory: Patient cannot speak in full sentences, continually coughing when she tries to speak, no wheezing or stridor. Cardiovascular: Irregularly irregular rhythm, tachycardic rate at 130. No rubs or gallops. GI: Soft, nondistended and nontender. Bowel sounds are present. Musculoskeletal: No peripheral edema. No lower extremity tenderness. Integumentary: No cyanosis. Neurological: The patient is awake and alert. No focal deficits. Psychiatric: Normal affect. Course 1251: The patient was evaluated in room B4B and a complete history and physical were performed. 1410: I reevaluated the patient. Her heart rate went down to 110's, but her BP dropped to 77 systolic. I rechecked with a smaller cuff and it went up to 111. She is slowly getting IV fluids and I have ordered a slow Cardizem drip. 1438: I discussed the patients case with Jina Ruiz PA-C, [facility] Hospitalist. The patient will be further evaluated. 1445: I reevaluated the patient. Her BP is 125 systolic. Her heart rate is 120, but goes up to 130 with coughing fits. I discussed my recommendation she remain in the hospital for further evaluation and management and she is agreeable with the plan. 1502: The admitting team called me to state that her pressure was in the 80s systolic. But when I arrived in the room, repeat BP was 107 systolic. Patient is having a coughing fit and heart is in the 130s. We did call US to do a stat bedside ultrasound for possible DVT. 1550: Dr. Guerra evaluated the patient. She feels the patient is in respiratory distress and recommends an ICU consultation. The patient is currently being evaluated by the ICU team. Consultations Consultation #1: I discussed the patients case with Jina Ruiz PA-C, [facility] Hospitalist. The patient will be further evaluated. Time: 14:38 Administered Medications Insulin Human Regular 250 (units/ Sodium Chloride) 250 mls @ 2 mls/hr IV .Q24H JOHN; Protocol Stop: 09/15/19 19:29 Last Admin: 08/16/19 19:27 Dose: 2 units/hr, 2 mls/hr Documented by: [id number] Cosigned by: [id number] Insulin Aspart (Novolog Flexpen) 0 units SC ACHS JOHN Stop: 09/15/19 18:17 Last Admin: 08/16/19 19:32 Dose: Not Given Documented by: [id number] Discontinued Medications Albuterol (Ventolin 0.083% 2.5mg/3ml) 10 mg NEB NOW STA Stop: 08/16/19 15:25 Last Admin: 08/16/19 15:29 Dose: 10 mg Documented by: [id number] Benzonatate (Tessalon Perle) 100 mg PO NOW ONE Stop: 08/16/19 12:58 Last Admin: 08/16/19 14:06 Dose: 100 mg Documented by: [id number] Diltiazem HCl (Cardizem) 5 mg IV NOW STA Stop: 08/16/19 12:58 Last Admin: 08/16/19 14:06 Dose: 5 mg Documented by: [id number] Cosigned by: [id number] Furosemide (Lasix) 40 mg IV NOW STA Stop: 08/16/19 15:23 Last Admin: 08/16/19 15:41 Dose: 40 mg Documented by: [id number] Furosemide (Lasix) Confirm Administered Dose 40 mg IV .STK-MED ONE Stop: 08/16/19 15:27 Last Admin: 08/16/19 15:41 Dose: Not Given Documented by: [id number] Hydromorphone HCl (Dilaudid) 0.5 mg IV NOW STA Stop: 08/16/19 15:28 Last Admin: 08/16/19 15:31 Dose: 0.5 mg Documented by: [id number] Hydromorphone HCl (Dilaudid) Confirm Administered Dose 0.5 mg .ROUTE .STK-MED ONE Stop: 08/16/19 15:31 Last Admin: 08/16/19 15:41 Dose: 0.5 mg Documented by: [id number] Hydromorphone HCl (Dilaudid) 0.5 mg IV NOW STA Stop: 08/16/19 19:31 Last Admin: 08/16/19 19:43 Dose: 0.5 mg Documented by: [id number] Sodium Chloride (Nss 1000ml) 250 mls @ 999 mls/hr IV .Q16M ONE Stop: 08/16/19 13:12 Last Admin: 08/16/19 14:06 Dose: 999 mls/hr Documented by: [id number] Diltiazem HCl 125 mg/ Dextrose 125 mls @ 10 mls/hr IV .[id number] STA; Protocol Stop: 08/17/19 02:47 Last Titration: 08/16/19 16:00 Dose: 10 mg/hr, 10 mls/hr Documented by: [id number] Admin: 08/16/19 15:09 Dose: 5 mg/hr, 5 mls/hr Documented by: [id number] Cosigned by: [id number] Insulin Human Regular 2 units/ (Syringe) 2 mls @ 0 mls/min IV TODAY@1930 ONE Stop: 08/16/19 19:31 Last Admin: 08/16/19 19:30 Dose: 2 mls/min Documented by: [id number] Cosigned by: [id number] Miscellaneous (Insulin Protocol Goal Range) 1 ea N/A ONE ONE Stop: 08/16/19 18:19 Last Admin: 08/16/19 19:31 Dose: 1 ea Documented by: [id number] Miscellaneous (Insulin Protocol Moderate Stress Level) 1 ea N/A ONE ONE Stop: 08/16/19 18:19 Last Admin: 08/16/19 19:31 Dose: 1 ea Documented by: [id number] Medical Decision Making Differential Diagnosis The differential diagnoses considered include atrial fibrillation with RVR, ventricular tachycardia, pneumonia, COPD exacerbation, pleurisy. Medical Records Attestation: I reviewed the patient's medical records. I did perform a limited focused review of portions of the patient's old chart on the electronic medical record. The patient was admitted on 07/27 for COPD exacerbation, possible chest pain. She had an echocardiogram which showed a small pericardial effusion which was favored to be chronic. She had a chest CT without contrast which showed chronic interstitial changes and an unremarkable abdomen CT. Home Medications Current Medication List: was personally reviewed by me Laboratory Data Attestation: I reviewed the patient's lab results. Result diagrams: 08/16/19 13:50 08/16/19 13:50 Lab Results 08/16/19 08/16/19 08/16/19 Range/Units 13:50 13:50 13:54 WBC 12.12 H (4.8-10.8) K/uL RBC 3.47 L (4.2-5.4) M/uL Hgb 10.1 L (12.0-16.0) g/dL Hct 30.7 L (37-47) % MCV 88.5 (80-100) fL MCH 29.1 (25-34) pg MCHC 32.9 (32-36) g/dL RDW Std Deviation 47.8 H (36.4-46.3) fL RDW Coeff of Stormy 15.0 H (11.5-14.5) % Plt Count 258 (130-400) K/uL MPV 9.2 (7.4-10.4) fL Immature Gran % (Auto) 0.2 % Neut % (Auto) 71.5 % Lymph % (Auto) 21.0 % [place] % (Auto) 6.7 % Eos % (Auto) 0.4 % Baso % (Auto) 0.2 % Immature Gran # (Auto) 0.03 H (0.00-0.02) K/uL Neut # (Auto) 8.66 H (1.4-6.5) K/uL Lymph # (Auto) 2.54 (1.2-3.4) K/uL [place] # (Auto) 0.81 H (0.11-0.59) K/uL Eos # (Auto) 0.05 (0-0.5) K/uL Baso # (Auto) 0.03 (0-0.2) K/uL Sodium 136 (136-145) mmol/L Potassium 4.5 (3.5-5.1) mmol/L Chloride 106 (98-107) mmol/L Carbon Dioxide 22 (21-32) mmol/L Anion Gap 8.0 (3-11) BUN 23 H (7-18) mg/dl Creatinine 1.83 H (0.6-1.2) mg/dl Est Cr Clr Drug Dosing 22.7 ml/min Est GFR ( Amer) 30.1 Est GFR (Non-Af Amer) 26.0 BUN/Creatinine Ratio 12.5 (10-20) Glucose 365 H* (70-99) mg/dl Calcium 8.2 L (8.5-10.1) mg/dl Magnesium 1.9 (1.8-2.4) mg/dl Total Bilirubin 0.5 (0.2-1) mg/dl AST 13 L (15-37) U/L ALT 21 (12-78) U/L Alkaline Phosphatase 108 (45-117) U/L POC Troponin I < 0.03 (0-0.045) ng/ml Total Protein 6.7 (6.4-8.2) gm/dl Albumin 2.7 L (3.4-5.0) gm/dl Globulin 4.0 (2.5-4.0) gm/dl Albumin/Globulin Ratio 0.7 L (0.9-2) Lipase 56 L (73-393) U/L Beta-Hydroxybutyric Acd 5.13 H (0.2-2.81) mg/dl TSH 2.230 (0.300-4.500) uIu/ml Imaging Data Radiologist's Impression: Radiology results as stated below per my review and the radiologist's interpretation: XR chest 1V portable CLINICAL HISTORY: 78 years-old Female presenting with sob, wheezing, concern for pneumonia. TECHNIQUE: Portable upright AP view of the chest was obtained. COMPARISON: 07/26/2019. FINDINGS: Right internal jugular Mediport terminates in the lower SVC. Atherosclerosis of the aortic arch. Cardiac silhouette moderately enlarged. Pulmonary vascular prominence. Low lung volumes. Mid to basilar hazy opacity. Bilateral small pleural effusions. No pneumothorax. Osseous structures normal. Cholecystectomy clips noted. IMPRESSION: 1. Cardiomegaly with volume overload and suspected pulmonary edema. Mid to basilar infiltrates could less likely represent aspiration or pneumonia. 2. Bilateral small pleural effusions. 3. Low lung volumes. Electronically signed by: Paul Coronado M.D. 08/16/2019 2:07 PM ECG Data Attestation: I personally reviewed and interpreted this ECG as follows: Indication: SOB/dyspnea Rate (beats per minute): 125 Rhythm: atrial fibrillation Findings: + LBBB; no PVC Blood Pressure Blood Pressure Findings: Normal blood pressure Blood Pressure Disposition: did not require urgent referral MDM Narrative I did evaluate the patient as noted above. The patient is presenting with shortness of breath and significant cough. She has difficulty speaking because every time she speaks she starts having a coughing fit. When listening to her lungs and she is breathing quietly her lungs are clear without wheezing or rales. IV access was established. The patient was placed on a continuous youth nutritional monitor. She is tachycardic. I did order and personally review the patient's 12-lead EKG as described above. She does have atrial fibrillation wi th RVR. I did treat her with a small dose of Cardizem IV. Her blood pressure did drop but then spontaneously came up without any intervention. We used a smaller cuff. I did give her a small infusion of normal saline IV over several hours. We also started her on a Cardizem drip at 5 mg an hour. Her heart rate would come down to about the 100s to 1 teens. When she had a coughing fit it would go up to 140. I did not treat her with a nebulizer because she did not have any wheezing on exam. I did order and personally reviewed the images of the patient's chest x-ray as described above. She does have signs of vascular congestion. I did order and review the patient's blood work as noted in the electronic medical record. Her white blood cell count is elevated. She is anemic. Her creatinine is elevated. Troponin is negative. She is hyperglycemic. I did order a stat portable Doppler ultrasound of lower extremities to evaluate for possible PE as I was concerned with her tachycardia and hypoxia that she may have an embolism. She is allergic to IV contrast and cannot have a CT angiogram. I did discuss the case with the hospitalist and housing case manager. I did reassess the patient multiple times. Impression & Plan Atrial fibrillation with RVR, Hyperglycemia, Hypoxia, Bronchitis, Anemia, CKD (chronic kidney disease) Critical Care Time Critical Care Time: Yes Total Critical Care Time: 40 I have personally spent approximately 40 minutes of critical care time in the direct management of this patient. This includes bedside care, interpretation of diagnostic studies, and testing, discussion with consultants, patient, and family members, and other required patient management activities. This approximately 40 minutes is in excess of all separately billable procedures. Discharge Plan Visit Data *Final* Discharge Date/Time: 08/16/19 17:43 Chief Complaint: Shortness of Breath/Dyspnea Stated Complaint: CP ED Provider: [employer] [facility] Discharge Problem: Atrial fibrillation with RVR, Hyperglycemia, Hypoxia, Bronchitis, Anemia, CKD (chronic kidney disease) Patient Disposition: Admitted As Inpatient Discharge Instructions Interventions: ED Discharge Assessment Last Done: 08/16/19 17:43 The scribe's documentation has been prepared under my direction and personally reviewed by me in its entirety. I confirm that the note above accurately reflects all work, treatment, procedures, and medical decision making performed by me.
[2019-08-16] MEDS: HEPARIN SODIUM/DEXTROSE 25,000 UNITS/500 ML BAG IV SCH (20:43)
[2019-08-16] MEDS: TRAZODONE HCL 50 MG TAB PO SCH (20:46)
[2019-08-16] MEDS: ASPIRIN 81 MG ECTAB PO SCH (20:46)
[2019-08-16] MEDS: dilTIAZem HCl 60 MG TAB PO SCH (20:46)
[2019-08-16] MEDS: MAGNESIUM OXIDE 400 MG TAB PO SCH (20:47)
[2019-08-16] MEDS: METOPROLOL TARTRATE 25 MG TAB PO SCH (20:47)
[2019-08-16] MEDS: PANTOprazole 40 MG TAB PO SCH (20:49)
[2019-08-16] MEDS: MONTELUKAST SODIUM 10 MG TABLET PO SCH (20:50)
--- NOTE | 2019-08-16 20:59 | Procedure Note ---
Procedure Note Date of Service August 16, 2019 Procedure: Warehouse Handler Indwelling Peripherally Inserted IV Catheter Placement Attending: Dr. Zazueta APC: Buddy Ren PA-C Indication: Need for IV Access, Poor Vascular Access Anesthesia: None Verbal consent was obtained from patient prior to performing the procedure. A time-out was completed verifying correct patient, procedure, site, positioning, and implant(s) or special equipment if applicable. Utilizing bedside ultrasound, vascularity of the RIGHT upper extremity was assessed. Vessel size was noted for appropriate catheter selection and skin was marked with gentle pressure. Patients RIGHT Forearm upper extremity was prepped and draped in the usual sterile fashion utilizing chlorhexidine. Ultrasound guidance was used to aid needle placement. A 22 g Endurance Catheter was introduced into the RIGHT forearm vein under direct ultrasound guidance. Guide wire was easily deployed without resistance. Catheter was threaded over the guide wire without resistance and the entire apparatus was removed intact. Good venous blood return was noted in the catheter. The IV catheter was easily flushed with sterile saline flush. Sterile clave was attached to the end of the catheter and good blood return was again noted. Tourniquet was released. StatLock device and sterile dressing were applied. The patient tolerated the procedure well. Blood Loss: Minimal Complications: None Procedural Ultrasound Guidance: Procedure Date: 08/16/2019 Indication: Poor Vascular Access Attending: Dr. Zazueta APC: Buddy Ren PA-C Artery/Veins Identified: YES Access confirmed in Vein with ultrasound: YES Complications: NONE Patient tolerated procedure: WELL Coding CPT Codes Tubes, Drains, and Vasc Access - Tubes, Drains, and Vasc Access: Venipuncture, Age 3/>Req physician skill, (sep proc), Dx/Tx (not rout) ([id number])
[2019-08-16] MEDS ORDERED: GABAPENTIN 400 MG CAP PO SCH (21:00)
[2019-08-16] MEDS ORDERED: MIRTAZAPINE SOLTAB 15 MG PO SCH (21:00)
[2019-08-16] MEDS ORDERED: ROPINIROLE HCL 1 MG TABLET PO SCH (21:00)
[2019-08-16] MEDS: BUDESONIDE 0.5 MG/2 ML VIAL (PULMICORT) NEB SCH (21:34)
[2019-08-17] MEDS: DC IV INSULIN INFUSION 1 EA DEVI SCH ×5 (00:37→08:26)
[2019-08-17] MEDS: dilTIAZem HCl 60 MG TAB PO SCH ×3 (02:20→21:23)
[2019-08-17] MEDS ORDERED: dilTIAZem HCL 125 MG in DEXTROSE 5% 100 ML IV SCH (02:48)
[2019-08-17 03:28] LABS: Hematocrit (blood only) 26.8 % (37-47); Mean Corpuscular Hemoglobin 29.8 pg (25-34); Mean Corpuscular Hgb Conc 33.6 g/dL (32-36); Mean Corpuscular Volume 88.7 fL (80-100); Mean Platelet Volume 8.8 fL (7.4-10.4); Platelet Count 234 K/uL (130-400); RDW Coefficient of Variation 15.1 % (11.5-14.5); RDW Standard Deviation 48.4 fL (36.4-46.3); Red Blood Count 3.02 M/uL (4.2-5.4); White Blood Count 11.67 K/uL (4.8-10.8)
[2019-08-17 03:48] LABS: Albumin Level 2.5 gm/dl (3.4-5.0); BUN Creatinine Ratio 11.6 (10-20); Basophils # (auto) 0.02 K/uL (0-0.2); Basophils % (auto) 0.2 %; Calcium 7.9 mg/dl (8.5-10.1); Creatinine Clr Calc Pharmacy 18.7 ml/min; Eosinophils # (auto) 0.01 K/uL (0-0.5); Eosinophils % (auto) 0.1 %; Est GFR (African American) 22.6; Est GFR (Non-African American) 19.5; Immature Granulocytes # (auto) 0.03 K/uL (0.00-0.02); Immature Granulocytes % (auto) 0.3 %; Lymphocytes # (auto) 2.03 K/uL (1.2-3.4); Lymphocytes % (auto) 17.4 %; Monocytes # (auto) 0.82 K/uL (0.11-0.59); Neutrophils # (auto) 8.76 K/uL (1.4-6.5); Potassium 4.5 mmol/L (3.5-5.1); RBC Morphology Unremarkable
[2019-08-17 03:50] LABS: Albumin Globulin Ratio 0.7 (0.9-2); Bilirubin,Total 0.3 mg/dl (0.2-1); Globulin 3.6 gm/dl (2.5-4.0); Total Protein 6.1 gm/dl (6.4-8.2)
[2019-08-17 03:51] LABS: Partial Thromboplastin Ratio 1.6; Partial Thromboplastin Time 44.7 Seconds (21.0-31.0)
[2019-08-17] MEDS ORDERED: HEPARIN IV BOLUS 2,000 UNITS in SYRINGE 0 ML IV ONE (04:45)
[2019-08-17 06:32] LABS: Estimated Average Glucose 226 mg/dl; Hemoglobin A1C 9.5 % (4.5-5.6)
[2019-08-17] MEDS: BUDESONIDE 0.5 MG/2 ML VIAL (PULMICORT) NEB SCH ×2 (07:02→19:02)
[2019-08-17] MEDS: CLOPIDOGREL BISULFATE 75 MG TAB PO SCH (08:27)
[2019-08-17] MEDS: PANTOprazole 40 MG TAB PO SCH ×2 (08:28→21:24)
[2019-08-17] MEDS: ISOSORBIDE MONO EXTENDED REL 30 MG TABCR PO SCH (08:29)
[2019-08-17] MEDS: METOPROLOL TARTRATE 25 MG TAB PO SCH ×2 (08:30→21:23)
[2019-08-17] MEDS: ATORVASTATIN 40 MG TAB PO SCH (08:31)
[2019-08-17] MEDS: INSULIN ASPART 100 UNITS/ML 3 ML PEN SC SCH ×4 (09:00→21:26)
[2019-08-17] MEDS ORDERED: INSULIN HUMAN NPH SC SCH ×3 (09:00→16:30)
[2019-08-17 10:38] LABS: Partial Thromboplastin Ratio 3.3
--- NOTE | 2019-08-17 10:40 | Hospitalist Progress Note ---
Date of Service August 17, 2019 Assessment & Plan (1) Paroxysmal atrial fibrillation: This is a 78 yr old F who has significant PMH of CAD, COPD, IDDM2, hx of CVA, CKD3, HTN, IPMN, recurrent pancreatitis, MDD who presents to [facility] ED 2/2 SOB x 1 day. Pt recently confined 07/27-08/02 2/2 Acute hypoxic respiratory failure, COPD exacerbation, chest pain Since being discharged patient has continued with shortness of breath with exertion and at rest, dramatically worsening last evening and associate with chest pain and palpitations In ED patient was noted to be in atrial fibrillation with RVR heart rates 120s to 150s, systolic blood pressure variable between 80 and 120 Initially in ED patient was given diltiazem bolus with decrease in blood pressure but no significant response to heart rate She was then initiated on a diltiazem drip, given benzonatate for cough and IV fluid Upon my evaluation and assessment patient was in acute respiratory distress, making conversation difficult Chest x-ray as compared to prior reveals bilateral pleural effusions and pulmonary vascular congestion She was given IV Lasix 40 mg stat, albuterol nebulizer treatment x1 hour, Dilaudid 0.5 mg secondary to chest pain (morphine allergy and has tolerated before) Seen and evaluated at bedside with ICU team - bedside echo performed After above tx patient HR responded and was 70-80s, blood pressure improved to 140s, respiratory status improving BIPAP ordered, patient stabilized and will transfer to PCU Patient converted to normal sinus rhythm at 1341 and has remained in sinus rhythm 60s and 70s with occasional PACs per telemetry Respiratory status has improved, she actually did not require BiPAP and has been maintaining O2 via NC She is fairly drowsy this morning, this may be in setting of use of multiple sedating medications last evening including mirtazapine, Requip, trazodone, gabapentin Will hold mirtazapine, Requip and gabapentin this evening If continues to feel drowsy will check ABG She continues on IV heparin Cardizem drip was stopped last evening per Dr. Guerra and placed on oral diltiazem cardiology consulted - appreciate their recommendations start coumadin, goal INR 2-3 Chadsvasc 8 (age, sex, CHF, HTN, hx of CVA, DM) (2) Acute hypoxemic respiratory failure: (3) SOB (shortness of breath): Pt continues to require O2 via NC, off oxygen at baseline repeat CXR 1. Cardiomegaly with unchanged pulmonary edema. 2. Persistent pleural effusions with bibasilar opacities suggestive of atelectasis or pneumonia. The right pleural effusion may have mildly increased in size Consult Pulmonology regarding pleural effusions, pt with hx of severe copd, afebrile, wbc 11k, check procalcitonin continue pulmonary toilet as below obtain CT chest (unable to do contrast given renal fxn) (4) Diastolic CHF: echocardiogram completed previous hospitalization LVEF 60-65%, mod aortic stenosis, grade I DD 07/27/19 and 07/12/19 Lasix IV 40mg given in ED UOP 0.34 dickinson placed daily weights strict I and O after IV lasix cr has increased to 2.32, will hold further diuresis for now continue metoprolol and imdur losartan on hold given hypotension (5) Acute kidney injury superimposed on CKD: baseline renal fxn 1.2-1.4 bun/cr 27/2.32 today ( cr 1.8 on admission) received IV lasix 40mg x 1 yesterday given pulmonary edema avoid nephrotoxic agents monitor bmp consult nephrology Dr. Martinez (6) Diabetes mellitus with hyperglycemia: A1C 10.4 07/2019 admitting glucose 365 insulin gtt ordered but never placed secondary to blood sugars less than 300 glycemic pharmacist for assistance of management, appreciate their input (7) COPD (chronic obstructive pulmonary disease): Continue aggressive pulmonary toilet Budesonide neb twice daily, as recommended per Dr. anderson Xopenex nebulizer treatments QID incentive spirometry Currently no indication for steroids or antibiotics at this time Repeat chest x-ray pending (8) Anemia: H/H 9.0/26.8 today admission 10.1 and 30.7 monitor CBC (9) CAD (coronary artery disease): On ASA, Plavix, statin, metoprolol, losartan, imdur as outpatient Patient had stent x2 in 01/2019 Continue ASA/Plavix for now When INR greater than 2 will discontinue aspirin and patient will remain on Plavix and Coumadin regimen (10) Chest pain: troponin remain undectable, no ecg changes currently pt asymptomatic (11) History of CVA (cerebrovascular accident): Continue ASA, Plavix, statin No deficits (12) HTN (hypertension): Blood pressure initially low on arrival secondary to rapid A. fib still remains on lower side, will monitor Continue metoprolol, Imdur Hold amlodipine and losartan for now, may resume in a.m. if blood pressure allows (13) Dyslipidemia: Continue statin (14) Anxiety: Lorazepam as needed (15) GERD (gastroesophageal reflux disease): Continue Protonix and ranitidine (16) DVT prophylaxis: IV heparin, coumadin, SCD/teds Disposition: Admit to PCU Follow-up: PCP Dr. Jefferson upon discharge; follow up CT scan 3-[address] RUL ground glass opacity (follows Dr. Anderson) Patient was seen and examined in collaboration with Dr. Epps Subjective Patient was seen and examined in room 218 Follow up acute respiratory failure, afib with RVR, pulmonary edema Patient is resting comfortably in bed. Patient very drowsy but arouses to verbal and tactile stimulation. Denies chest pain, sob, f/c/s, dizziness, pain, n/v/d. Has improved appetite requesting breakfast. She has been NPO since admitted due to respiratory distress and initally ordered bipap. She offers no concerns currently. Nurse states pt very lethargic last evening after being given night time meds. There was question of if it was due to her meds given she takes gabapentin, mirtazapine, requip and trazodone. Review of Systems 2 Review of Systems: All systems reviewed & are unremarkable except as noted in HPI & below Physical Exam Physical Exam: Gen: Elderly F, chronically ill, lying in bed, resting, NAD, A&O x3 HEENT: Normocephalic, atraumatic, conjunctivae moist, sclerae anicteric, mucous membranes moist. Lung: Clear to Auscultation bilaterally, no wheezes/rales/rhonchi on 5L O2 via NC Heart: Regular rate, regular rhythm, no murmurs, rubs, or gallops Abdomen: Soft, NT, ND +BS x 4 Extremities: No edema Skin: Warm, no rash, negative turgor. Results & Data Vital Signs (Past 12 Hours) Vital Signs Temp Pulse Pulse Resp BP Pulse Ox 08/17/19 08:00 71 08/17/19 07:26 36.8 C 71 20 111/62 93 08/17/19 07:04 77 20 93 08/17/19 03:20 37.1 C 73 16 94/56 L 94 08/16/19 23:53 36.9 C 79 20 112/70 96 Laboratory Results Short CBC 08/16/19 08/16/19 08/16/19 Range/Units 13:50 13:50 18:53 WBC 12.12 H (4.8-10.8) K/uL Hgb 10.1 L (12.0-16.0) g/dL Hct 30.7 L (37-47) % Plt Count 258 (130-400) K/uL Creatinine 1.83 H (0.6-1.2) mg/dl Est GFR (Non-Af Amer) 26.0 POC Glucose 361 H* (70-99) 08/16/19 08/16/19 08/16/19 Range/Units 18:54 20:40 21:34 WBC (4.8-10.8) K/uL Hgb (12.0-16.0) g/dL Hct (37-47) % Plt Count (130-400) K/uL Creatinine (0.6-1.2) mg/dl Est GFR (Non-Af Amer) POC Glucose 370 H* 276 H 245 H (70-99) 08/16/19 08/16/19 08/17/19 Range/Units 22:25 23:26 00:33 WBC (4.8-10.8) K/uL Hgb (12.0-16.0) g/dL Hct (37-47) % Plt Count (130-400) K/uL Creatinine (0.6-1.2) mg/dl Est GFR (Non-Af Amer) POC Glucose 207 H 176 H 116 H (70-99) 08/17/19 08/17/19 08/17/19 Range/Units 03:08 03:19 03:19 WBC 11.67 H (4.8-10.8) K/uL Hgb 9.0 L (12.0-16.0) g/dL Hct 26.8 L (37-47) % Plt Count 234 (130-400) K/uL Creatinine 2.32 H D (0.6-1.2) mg/dl Est GFR (Non-Af Amer) 19.5 POC Glucose 181 H (70-99) 08/17/19 Range/Units 07:23 WBC (4.8-10.8) K/uL Hgb (12.0-16.0) g/dL Hct (37-47) % Plt Count (130-400) K/uL Creatinine (0.6-1.2) mg/dl Est GFR (Non-Af Amer) POC Glucose 252 H (70-99) BMP 08/16/19 08/17/19 13:50 03:19 Sodium 136 138 Potassium 4.5 4.5 Chloride 106 107 Carbon Dioxide 22 24 BUN 23 H 27 H Creatinine 1.83 H 2.32 H D Glucose 365 H* 180 H Calcium 8.2 L 7.9 L Cardiac Enzymes 08/16/19 08/17/19 Range/Units 19:21 00:31 Troponin I < 0.015 < 0.015 (0-0.045) ng/ml Liver Function 08/16/19 08/17/19 Range/Units 13:50 03:19 Total Bilirubin 0.5 0.3 (0.2-1) mg/dl AST 13 L 12 L (15-37) U/L ALT 21 19 (12-78) U/L Alkaline Phosphatase 108 93 (45-117) U/L Albumin 2.7 L 2.5 L (3.4-5.0) gm/dl Medications Administered Aspirin (Ecotrin Ectab) 81 mg PO QPM [facility] Stop: 09/15/19 20:59 Last Admin: 08/16/19 20:46 Dose: 81 mg Documented by: [id number] Atorvastatin Calcium (Lipitor) 40 mg PO QAM [facility] Stop: 09/16/19 08:59 Last Admin: 08/17/19 08:31 Dose: 40 mg Documented by: [id number] Budesonide (Pulmicort Respules) 0.5 mg NEB BIDR [facility] Stop: 09/15/19 18:59 Last Admin: 08/17/19 07:02 Dose: 0.5 mg Documented by: [id number] Admin: 08/16/19 21:34 Dose: Not Given Documented by: [id number] Clopidogrel Bisulfate (Plavix) 75 mg PO QAM [facility] Stop: 09/16/19 08:59 Last Admin: 08/17/19 08:27 Dose: 75 mg Documented by: [id number] Diltiazem HCl (Cardizem) 60 mg PO Q8H [facility] Stop: 09/15/19 19:29 Last Admin: 08/17/19 02:20 Dose: 60 mg Documented by: [id number] Admin: 08/16/19 20:46 Dose: 60 mg Documented by: [id number] Gabapentin (Neurontin) 800 mg PO HS [facility] Stop: 09/15/19 20:59 Last Admin: 08/16/19 20:48 Dose: 800 mg Documented by: [id number] Heparin Sodium/Dextrose (Heparin Sodium/Dextrose) 25,000 units in 500 mls @ 22 mls/hr IV .[id number] JOHN; Protocol Stop: 09/15/19 15:44 Last Titration: 08/17/19 07:20 Dose: 1,100 units/hr, 22 mls/hr Documented by: [id number] Cosigned by: [id number] Titration: 08/17/19 03:59 Dose: 1,100 units/hr, 22 mls/hr Documented by: [id number] Cosigned by: [id number] Titration: 08/16/19 23:13 Dose: 1,000 units/hr, 20 mls/hr Documented by: [id number] Cosigned by: [id number] Admin: 08/16/19 20:43 Dose: 1,000 units/hr, 20 mls/hr Documented by: [id number] Cosigned by: [id number] Insulin Aspart (Novolog Flexpen) 0 units SC ACHS [facility] Stop: 09/15/19 18:17 Last Admin: 08/17/19 09:00 Dose: 28 units Documented by: [id number] Cosigned by: [id number] Admin: 08/16/19 20:48 Dose: Not Given Documented by: [id number] Admin: 08/16/19 19:32 Dose: Not Given Documented by: [id number] Insulin Human NPH (Novolin N Nph) [facility] Stop: 09/16/19 08:59 Last Admin: 08/17/19 08:54 Dose: 40 units Documented by: [id number] Cosigned by: [id number] Isosorbide Mononitrate (Imdur Extended Rel) 30 mg PO QAM [facility] Stop: 09/16/19 08:59 Last Admin: 08/17/19 08:29 Dose: 30 mg Documented by: [id number] Magnesium Oxide (Mag-Ox) 400 mg PO QPM [facility] Stop: 09/15/19 20:59 Last Admin: 08/16/19 20:47 Dose: 400 mg Documented by: [id number] Metoprolol Tartrate (Lopressor) 25 mg PO BID JOHN Stop: 09/15/19 20:59 Last Admin: 08/17/19 08:30 Dose: 25 mg Documented by: [id number] Admin: 08/16/19 20:47 Dose: 25 mg Documented by: [id number] Mirtazapine (Remeron Solutab) 45 mg PO JOHN Stop: 09/15/19 20:59 Last Admin: 08/16/19 20:49 Dose: 45 mg Documented by: [id number] Montelukast Sodium (Singulair) 10 mg PO JOHN Stop: 09/15/19 20:59 Last Admin: 08/16/19 20:50 Dose: 10 mg Documented by: [id number] Pantoprazole Sodium (Protonix) 40 mg PO BID JOHN Stop: 09/15/19 20:59 Last Admin: 08/17/19 08:28 Dose: 40 mg Documented by: [id number] Admin: 08/16/19 20:49 Dose: 40 mg Documented by: [id number] Ropinirole HCl (Requip) 1 mg PO [facility] Stop: 09/15/19 20:59 Last Admin: 08/16/19 20:49 Dose: 1 mg Documented by: [id number] Trazodone HCl (Desyrel) 50 mg PO [facility] Stop: 09/15/19 20:59 Last Admin: 08/16/19 20:46 Dose: 50 mg Documented by: [id number] Discontinued Medications Albuterol (Ventolin 0.083% 2.5mg/3ml) 10 mg NEB NOW STA Stop: 08/16/19 15:25 Last Admin: 08/16/19 15:29 Dose: 10 mg Documented by: [id number] Benzonatate (Tessalon Perle) 100 mg PO NOW ONE Stop: 08/16/19 12:58 Last Admin: 08/16/19 14:06 Dose: 100 mg Documented by: [id number] Diltiazem HCl (Cardizem) 5 mg IV NOW STA Stop: 08/16/19 12:58 Last Admin: 08/16/19 14:06 Dose: 5 mg Documented by: [id number] Cosigned by: [id number] Furosemide (Lasix) 40 mg IV NOW STA Stop: 08/16/19 15:23 Last Admin: 08/16/19 15:41 Dose: 40 mg Documented by: [id number] Furosemide (Lasix) Confirm Administered Dose 40 mg IV .STK-MED ONE Stop: 08/16/19 15:27 Last Admin: 08/16/19 15:41 Dose: Not Given Documented by: [id number] Hydromorphone HCl (Dilaudid) 0.5 mg IV NOW STA Stop: 08/16/19 15:28 Last Admin: 08/16/19 15:31 Dose: 0.5 mg Documented by: [id number] Hydromorphone HCl (Dilaudid) Confirm Administered Dose 0.5 mg .ROUTE .STK-MED ONE Stop: 08/16/19 15:31 Last Admin: 08/16/19 15:41 Dose: 0.5 mg Documented by: [id number] Hydromorphone HCl (Dilaudid) 0.5 mg IV NOW STA Stop: 08/16/19 19:31 Last Admin: 08/16/19 19:43 Dose: 0.5 mg Documented by: [id number] Sodium Chloride (Nss 1000ml) 250 mls @ 999 mls/hr IV .Q16M ONE Stop: 08/16/19 13:12 Last Infusion: 08/16/19 23:08 Dose: 0 mls/hr Documented by: [id number] Admin: 08/16/19 14:06 Dose: 999 mls/hr Documented by: [id number] Diltiazem HCl 125 mg/ Dextrose 125 mls @ 10 mls/hr IV .[id number] STA; Protocol Stop: 08/17/19 02:47 Last Titration: 08/16/19 23:35 Dose: 0 mg/hr, 0 mls/hr Documented by: [id number] Titration: 08/16/19 20:59 Dose: 0 mg/hr, 0 mls/hr Documented by: [id number] Titration: 08/16/19 16:00 Dose: 10 mg/hr, 10 mls/hr Documented by: [id number] Admin: 08/16/19 15:09 Dose: 5 mg/hr, 5 mls/hr Documented by: [id number] Cosigned by: [id number] Insulin Human Regular 250 (units/ Sodium Chloride) 250 mls @ 2 mls/hr IV .Q24H JOHN; Protocol Stop: 09/15/19 19:29 Last Titration: 08/16/19 23:15 Dose: 2 units/hr, 2 mls/hr Documented by: [id number] Cosigned by: [id number] Titration: 08/16/19 20:30 Dose: 2 units/hr, 2 mls/hr Documented by: [id number] Cosigned by: [id number] Admin: 08/16/19 19:27 Dose: 2 units/hr, 2 mls/hr Documented by: [id number] Cosigned by: [id number] Insulin Human Regular 2 units/ (Syringe) 2 mls @ 0 mls/min IV TODAY@1930 ONE Stop: 08/16/19 19:31 Last Admin: 08/16/19 19:30 Dose: 2 mls/min Documented by: [id number] Cosigned by: [id number] Heparin Sodium (Porcine) 2,000 (units/ Syringe) 2 mls @ 10 mls/min IV ONE ONE Stop: 08/17/19 04:46 Last Admin: 08/17/19 04:44 Dose: 10 mls/min Documented by: [id number] Cosigned by: [id number] Insulin Human NPH (Novolin N Nph) 50 units SC NOW ONE Stop: 08/16/19 19:16 Last Admin: 08/16/19 20:45 Dose: 50 units Documented by: [id number] Cosigned by: [id number] Miscellaneous (Insulin Protocol Goal Range) 1 ea N/A ONE ONE Stop: 08/16/19 18:19 Last Admin: 08/16/19 19:31 Dose: 1 ea Documented by: [id number] Miscellaneous (Insulin Protocol Moderate Stress Level) 1 ea N/A ONE ONE Stop: 08/16/19 18:19 Last Admin: 08/16/19 19:31 Dose: 1 ea Documented by: [id number] Miscellaneous Information (Dc Iv Insulin Infusion) 1 ea N/A Q1H JOHN Stop: 09/16/19 00:00 Last Admin: 08/17/19 08:26 Dose: Not Given Documented by: [id number] Admin: 08/17/19 00:52 Dose: Not Given Documented by: [id number] Admin: 08/17/19 00:51 Dose: Not Given Documented by: [id number] Admin: 08/17/19 00:51 Dose: Not Given Documented by: [id number] Admin: 08/17/19 00:51 Dose: Not Given Documented by: [id number] Admin: 08/17/19 00:51 Dose: Not Given Documented by: [id number] Admin: 08/17/19 00:51 Dose: Not Given Documented by: [id number] Admin: 08/17/19 00:38 Dose: Not Given Documented by: [id number] Admin: 08/17/19 00:37 Dose: 1 ea Documented by: [id number] ECG Rhythm: normal sinus (1) CAD (coronary artery disease) Coronary Disease-Associated Artery/Lesion type: [place] artery [place] vs. transplanted heart: [place] heart Associated angina: with unspecified angina Qualified Code(s): I25.119 - Atherosclerotic heart disease of [place] coronary artery with unspecified angina pectoris
--- NOTE | 2019-08-17 10:44 | Cardiology Consultation ---
Date of Consultation August 17, 2019 Assessment & Plan (1) Paroxysmal atrial fibrillation: (2) Acute on chronic diastolic heart failure: (3) Pleural effusion, bilateral: (4) LBBB (left bundle branch block): (5) Aortic stenosis: (6) CAD (coronary artery disease): (7) History of CVA (cerebrovascular accident): (8) COPD (chronic obstructive pulmonary disease): (9) Acute kidney injury superimposed on CKD: Continue metoprolol 25 mg twice daily. Agree with addition of low-dose oral diltiazem with telemetry monitoring given underlying conduction disease (chronic left bundle branch block). Recommend continued heparin bridging to oral anticoagulation with Coumadin. Goal INR 2.0-3.0. Coumadin preferred to DOAC secondary to renal dysfunction. Hold diuretic therapy today with plans to restart diuretic therapy in AM pending review of lab studies. Consider thoracic surgery consultation re: Pleural effusions. Aspirin may be discontinued when INR is therapeutic and patient will continue Plavix plus Coumadin long-term. Treatment of COPD/bronchitis as per internal medicine and pulmonology. History of Present Illness Reason for Consultation: Atrial fibrillation Requesting Physician: Dr. Epps Attending Physician: Jacky Epps DO History of Present Illness 78-year-old female admitted with acute hypoxic respiratory failure. Atrial fibrillation with rapid ventricular response noted on admission. Patient describes feeling of "heart racing" prior to admission in addition to significant shortness of breath. Per review of admission record patient was hypoxemic with mild distress on admission. She was treated with IV Lasix as well as a diltiazem infusion. Patient subsequently converted to sinus rhythm. Complex cardiovascular history significant for recent drug-eluting stent placement to the circumflex 01/2019 with repeat diagnostic catheterization performed by the other side 04/2019 ensuring patency of left circumflex stent. History of chronic chest discomfort and severe underlying pulmonary disease. Currently, patient resting comfortably. Easily awakens to verbal stimuli. Telemetry confirms sinus rhythm with left bundle branch block overnight. Cardiac enzymes are undetectable since admission. She reports chronic, 3/10 sub sternal chest discomfort that is constant. Nonproductive cough noted with active wheeze. Oral diltiazem added to patient's medication. Chronically utilizing beta-aaliyah in the outpatient setting in addition to other medications noted below. Reports edema prior to admission which has improved. Creatinine trending upward post diuretic therapy on admission. Allergies Allergy/AdvReac Type Severity Reaction Status Date / Time Gadolinium-Containing Allergy Severe NAUSEA,VOMITING, Verified 08/16/19 14:32 Contrast Medi SWELLING/EDEMA AROUND EYES, WHEEZING Iodinated Contrast Media Allergy Severe RASH TO Verified 08/16/19 14:32 IVP DYE,NAUSEA, FAINTING, COUGHING, GAGGING, HEADACH Sulfa (Sulfonamide Allergy Severe HIVES, Verified 08/16/19 14:32 Antibiotics) FACIAL AND ARM SWELLING cerivastatin Allergy Intermediate HIVES Verified 08/16/19 14:32 codeine Allergy Intermediate "PRICKLY Verified 08/16/19 14:32 RASH" hydroxyzine Allergy Intermediate N/V Verified 08/16/19 14:32 latex Allergy Intermediate DERMATITIS-PT Verified 08/16/19 14:32 TOLERATED A LATEX CATHETER 03/26/08 Bactrim Allergy Mild RASH Verified 04/29/18 14:40 diphenhydramine Allergy Mild RASH; Verified 08/16/19 14:32 SLEEPINESS WITH "PHARBEDRYL" loratadine Allergy Mild HIVES Verified 08/16/19 14:32 sulfamethoxazole Allergy Mild RASH Verified 08/16/19 14:32 trimethoprim Allergy Mild RASH Verified 08/16/19 14:32 prednisone Allergy Unknown elevates Verified 08/16/19 14:32 blood sugar tetanus toxoid, adsorbed AdvReac Intermediate SWELLING Verified 08/16/19 14:32 AT INJECTION SITE alprazolam AdvReac Unknown "SLEEPY Verified 08/16/19 14:32 STUPER" metformin AdvReac Unknown DIARRHEA Verified 08/16/19 14:32 morphine AdvReac Unknown VOMITING Verified 08/16/19 14:32 simvastatin AdvReac Unknown COUGH, Verified 08/16/19 14:32 "DISCOMFORT" gadobutrol [From Gadavist] AdvReac Anaphylaxis Unverified 08/16/19 14:32 Home Medications Home Medications Medication Instructions Recorded Confirmed Type amlodipine [Norvasc] 10 mg PO QAM 08/24/18 08/16/19 History aspirin 1 tab PO QPM 08/24/18 08/16/19 History dicyclomine 10 mg PO TID PRN 08/24/18 08/16/19 History fluticasone propionate [Flonase 2 spray INTRANASAL QPM PRN 08/24/18 08/16/19 History Allergy Relief] lorazepam [Ativan] 0.5 mg PO Q6 PRN 08/24/18 08/16/19 History ondansetron HCl [Zofran] 4 mg PO Q8H PRN 08/24/18 08/16/19 History trazodone 50 mg PO HS 08/24/18 08/16/19 History albuterol sulfate 2.5 mg INHALATION QID PRN 01/26/19 08/16/19 History levocetirizine [Xyzal] 2.5 mg PO QPM 01/26/19 08/16/19 History mirtazapine 45 mg PO HS 01/26/19 08/16/19 History ropinirole 1 mg PO HS 01/26/19 08/16/19 History atorvastatin 40 mg PO QAM #30 tab 01/28/19 08/16/19 Rx clopidogrel 75 mg PO QAM #30 tab 01/28/19 08/16/19 Rx isosorbide mononitrate 30 mg PO QAM #30 tab 01/28/19 08/16/19 Rx nitroglycerin [Nitrostat] 0.4 mg SUBLINGUAL PRN PRN #30 tab 01/28/19 08/16/19 Rx Novolin 70/30 U-100 Insulin 35 unit SUBCUT QPM 05/04/19 08/16/19 History Novolin 70/30 U-100 Insulin 55 unit SUBCUT QAM 05/04/19 08/16/19 History albuterol sulfate [Proventil HFA] 2 puff INHALATION Q4 PRN 05/04/19 08/16/19 History gabapentin 800 mg PO HS 07/11/19 08/16/19 History magnesium oxide 400 mg PO QPM 07/11/19 08/16/19 History metoprolol tartrate 25 mg PO BID 07/11/19 08/16/19 History montelukast [Singulair] 10 mg PO HS 30 Days #30 tab 08/02/19 08/16/19 Rx pantoprazole 40 mg PO BID 30 Days #60 tab 08/02/19 08/16/19 Rx fexofenadine 60 mg tablet 60 mg PO DAILY tab 08/11/19 08/16/19 History ranitidine 300 mg capsule 300 mg PO HS #30 cap 08/11/19 08/16/19 History cholestyramine-aspartame 4 g PO DAILY 08/16/19 08/16/19 History guaifenesin 100 mg PO Q6H PRN 08/16/19 08/16/19 History hydrocodone-homatropine 5 ml PO Q6H PRN 08/16/19 08/16/19 History loratadine 10 mg PO DAILY 08/16/19 08/16/19 History losartan 100 mg PO DAILY 08/16/19 08/16/19 History mometasone-formoterol [Dulera] 2 puff INHALATION BID 08/16/19 08/16/19 History simethicone 80 mg PO Q6H PRN 08/16/19 08/16/19 History Patient History Medical History GERD (gastroesophageal reflux disease) Osteoarthritis (Chronic) Seasonal allergies (Chronic) Aortic stenosis (Chronic) moderate Pancreatitis (Chronic) Valvular heart disease Non-STEMI (non-ST elevated myocardial infarction) 01/2019 Left bundle branch block Giant cell arteritis (Resolved) Gastroparesis (Chronic) Dyslipidemia (Chronic) Depression (Chronic) HTN (hypertension) (Chronic) Insomnia (Chronic) RLS (restless legs syndrome) (Chronic) Peripheral neuropathy (Chronic) Pancreatic cyst (Chronic) Anxiety (Chronic) COPD (chronic obstructive pulmonary disease) (Chronic) Diabetes mellitus, type II (Chronic) poorly controlled Sleep apnea (Chronic) PT DENIES/NO DEVICE Chronic pancreatitis (Chronic) Cerebrovascular disease (Chronic) "history stroke and TIA" L sided weakness. Fatty liver (Chronic) Esophageal dysmotility (Chronic) Pancreatic divisum (Chronic) CKD (chronic kidney disease), stage III (Chronic) F/U PCP Surgical History History of ERCP (Resolved) x3 with stents. ERCP 04/30/18. MAC 3, grade 2 view. 7.0 ETT placed. No issues. History of bilateral tubal ligation (Resolved) S/P cardiac catheterization (Resolved) 01/2019 [facility] X 2-TOTAL 2 STENTS 04/2019 non obstructive disease History of cataract surgery (Chronic) both eyes Family History Daughter No problems noted. Father Family history of diabetes mellitus Family/Other Family history of diabetes mellitus Mother Family history of diabetes mellitus Grandfather Family history of diabetes mellitus Grandmother Family history of diabetes mellitus Social History Preferred Language: [place] Communication Ability: Effective Clinic Office Manager Required: No Beliefs That Will Affect Care: None marital status: / Current Living Situation: Alone Current Living Situation Comment: january 21, no longer has drivers license - stroke Other Information That Helps Us Care for You: No Feels Safe at Home: Yes Safety Concerns: Feels Safe At This Time Smoking Status: Never smoker Do You Dip or Chew Tobacco: No ; Second Hand Exposure: No ; Tobacco Cessation Education Requested by Patient: No Hx Alcohol Use: No Hx Substance Use: No Review of Systems Review of Systems: All systems reviewed & are unremarkable except as noted in HPI & below Physical Exam Physical Exam: General: NAD, AAO x3, well nourished. Overweight, chronically ill. HEENT: Normocephalic. Atraumatic. Conjunctiva pink, no scleral icterus. Neck: No carotid bruits, the carotid upstrokes are brisk. No JVD. No HJR Heart: Regular normal S-1 and S-2. 2/6 medium pitched systolic ejection murmur heard best at the right second intercostal space without radiation. PMI is not displaced. No RV heave. Lungs: + Bilateral rhonchi and expiratory wheeze. Abdomen: Normal bowel sounds. Soft. Nontender. No masses or organomegaly. No abdominal bruits. Extremities: No clubbing, cyanosis, or edema. Pulses: radial=2/4, Dorsalis pedis =2/4, posterior tibial=2/4. Neuro: Cranial nerves grossly intact. No focal motor deficit. Results & Data Vital Signs (Past 12 Hours) Vital Signs Temp Pulse Pulse Resp BP Pulse Ox 08/17/19 08:00 71 08/17/19 07:26 36.8 C 71 20 111/62 93 08/17/19 07:04 77 20 93 08/17/19 03:20 37.1 C 73 16 94/56 L 94 08/16/19 23:53 36.9 C 79 20 112/70 96 Laboratory Results Laboratory Results - last 24 hr 08/16/19 08/16/19 08/16/19 13:50 13:50 13:54 WBC 12.12 H RBC 3.47 L Hgb 10.1 L Hct 30.7 L MCV 88.5 MCH 29.1 MCHC 32.9 RDW Std Deviation 47.8 H RDW Coeff of Stormy 15.0 H Plt Count 258 MPV 9.2 Immature Gran % (Auto) 0.2 Neut % (Auto) 71.5 Lymph % (Auto) 21.0 Roane % (Auto) 6.7 Eos % (Auto) 0.4 Baso % (Auto) 0.2 Immature Gran # (Auto) 0.03 H Neut # (Auto) 8.66 H Lymph # (Auto) 2.54 Roane # (Auto) 0.81 H Eos # (Auto) 0.05 Baso # (Auto) 0.03 RBC Morphology APTT PTT Ratio ABG pH ABG pCO2 ABG pO2 ABG HCO3 ABG O2 Saturation ABG Base Excess Harshad Test Barometric Pressure Oxygen Given Sodium 136 Potassium 4.5 Chloride 106 Carbon Dioxide 22 Anion Gap 8.0 BUN 23 H Creatinine 1.83 H Est Cr Clr Drug Dosing 22.7 Est GFR ( Amer) 30.1 Est GFR (Non-Af Amer) 26.0 BUN/Creatinine Ratio 12.5 Glucose 365 H* POC Glucose Estimat Average Glucose Hemoglobin A1c Calcium 8.2 L Magnesium 1.9 Total Bilirubin 0.5 AST 13 L ALT 21 Alkaline Phosphatase 108 POC Troponin I < 0.03 Troponin I Total Protein 6.7 Albumin 2.7 L Globulin 4.0 Albumin/Globulin Ratio 0.7 L Lipase 56 L Beta-Hydroxybutyric Acd 5.13 H TSH 2.230 08/16/19 08/16/19 08/16/19 16:21 18:53 18:54 WBC RBC Hgb Hct MCV MCH MCHC RDW Std Deviation RDW Coeff of Stormy Plt Count MPV Immature Gran % (Auto) Neut % (Auto) Lymph % (Auto) Roane % (Auto) Eos % (Auto) Baso % (Auto) Immature Gran # (Auto) Neut # (Auto) Lymph # (Auto) Roane # (Auto) Eos # (Auto) Baso # (Auto) RBC Morphology APTT PTT Ratio ABG pH 7.41 ABG pCO2 31 L ABG pO2 96 H ABG HCO3 19 ABG O2 Saturation 97.1 H ABG Base Excess -4.8 Harshad Test Pos Barometric Pressure 729.2 Oxygen Given 2 Sodium Potassium Chloride Carbon Dioxide Anion Gap BUN Creatinine Est Cr Clr Drug Dosing Est GFR ( Amer) Est GFR (Non-Af Amer) BUN/Creatinine Ratio Glucose POC Glucose 361 H* 370 H* Estimat Average Glucose Hemoglobin A1c Calcium Magnesium Total Bilirubin AST ALT Alkaline Phosphatase POC Troponin I Troponin I Total Protein Albumin Globulin Albumin/Globulin Ratio Lipase Beta-Hydroxybutyric Acd TSH 08/16/19 08/16/19 08/16/19 19:21 19:21 20:40 WBC RBC Hgb Hct MCV MCH MCHC RDW Std Deviation RDW Coeff of Stormy Plt Count MPV Immature Gran % (Auto) Neut % (Auto) Lymph % (Auto) Ro[place] % (Auto) Eos % (Auto) Baso % (Auto) Immature Gran # (Auto) Neut # (Auto) Lymph # (Auto) Roane # (Auto) Eos # (Auto) Baso # (Auto) RBC Morphology APTT 24.2 PTT Ratio 0.9 ABG pH ABG pCO2 ABG pO2 ABG HCO3 ABG O2 Saturation ABG Base Excess Harshad Test Barometric Pressure Oxygen Given Sodium Potassium Chloride Carbon Dioxide Anion Gap BUN Creatinine Est Cr Clr Drug Dosing Est GFR ( Amer) Est GFR (Non-Af Amer) BUN/Creatinine Ratio Glucose POC Glucose 276 H Estimat Average Glucose Hemoglobin A1c Calcium Magnesium Total Bilirubin AST ALT Alkaline Phosphatase POC Troponin I Troponin I < 0.015 Total Protein Albumin Globulin Albumin/Globulin Ratio Lipase Beta-Hydroxybutyric Acd TSH 08/16/19 08/16/19 08/16/19 21:34 22:25 23:26 WBC RBC Hgb Hct MCV MCH MCHC RDW Std Deviation RDW Coeff of Stormy Plt Count MPV Immature Gran % (Auto) Neut % (Auto) Lymph % (Auto) Roane % (Auto) Eos % (Auto) Baso % (Auto) Immature Gran # (Auto) Neut # (Auto) Lymph # (Auto) Roane # (Auto) Eos # (Auto) Baso # (Auto) RBC Morphology APTT PTT Ratio ABG pH ABG pCO2 ABG pO2 ABG HCO3 ABG O2 Saturation ABG Base Excess Harshad Test Barometric Pressure Oxygen Given Sodium Potassium Chloride Carbon Dioxide Anion Gap BUN Creatinine Est Cr Clr Drug Dosing Est GFR ( Amer) Est GFR (Non-Af Amer) BUN/Creatinine Ratio Glucose POC Glucose 245 H 207 H 176 H Estimat Average Glucose Hemoglobin A1c Calcium Magnesium Total Bilirubin AST ALT Alkaline Phosphatase POC Troponin I Troponin I Total Protein Albumin Globulin Albumin/Globulin Ratio Lipase Beta-Hydroxybutyric Acd TSH 08/17/19 08/17/19 08/17/19 00:31 00:33 03:08 WBC RBC Hgb Hct MCV MCH MCHC RDW Std Deviation RDW Coeff of Stormy Plt Count MPV Immature Gran % (Auto) Neut % (Auto) Lymph % (Auto) Roane % (Auto) Eos % (Auto) Baso % (Auto) Immature Gran # (Auto) Neut # (Auto) Lymph # (Auto) Roane # (Auto) Eos # (Auto) Baso # (Auto) RBC Morphology APTT PTT Ratio ABG pH ABG pCO2 ABG pO2 ABG HCO3 ABG O2 Saturation ABG Base Excess Harshad Test Barometric Pressure Oxygen Given Sodium Potassium Chloride Carbon Dioxide Anion Gap BUN Creatinine Est Cr Clr Drug Dosing Est GFR ( Amer) Est GFR (Non-Af Amer) BUN/Creatinine Ratio Glucose POC Glucose 116 H 181 H Estimat Average Glucose Hemoglobin A1c Calcium Magnesium Total Bilirubin AST ALT Alkaline Phosphatase POC Troponin I Troponin I < 0.015 Total Protein Albumin Globulin Albumin/Globulin Ratio Lipase Beta-Hydroxybutyric Acd [facility] 08/17/19 08/17/19 08/17/19 03:19 03:19 03:19 WBC 11.67 H RBC 3.02 L Hgb 9.0 L Hct 26.8 L MCV 88.7 MCH 29.8 MCHC 33.6 RDW Std Deviation 48.4 H RDW Coeff of Stormy 15.1 H Plt Count 234 MPV 8.8 Immature Gran % (Auto) 0.3 Neut % (Auto) 75.0 Lymph % (Auto) 17.4 Roane % (Auto) 7.0 Eos % (Auto) 0.1 Baso % (Auto) 0.2 Immature Gran # (Auto) 0.03 H Neut # (Auto) 8.76 H Lymph # (Auto) 2.03 Roane # (Auto) 0.82 H Eos # (Auto) 0.01 Baso # (Auto) 0.02 RBC Morphology Unremarkable APTT PTT Ratio ABG pH ABG pCO2 ABG pO2 ABG HCO3 ABG O2 Saturation ABG Base Excess Harshad Test Barometric Pressure Oxygen Given Sodium 138 Potassium 4.5 Chloride 107 Carbon Dioxide 24 Anion Gap 7.0 BUN 27 H Creatinine 2.32 H D Est Cr Clr Drug Dosing 18.7 Est GFR ( Amer) 22.6 Est GFR (Non-Af Amer) 19.5 BUN/Creatinine Ratio 11.6 Glucose 180 H POC Glucose Estimat Average Glucose 226 Hemoglobin A1c 9.5 H Calcium 7.9 L Magnesium Total Bilirubin 0.3 AST 12 L ALT 19 Alkaline Phosphatase 93 POC Troponin I Troponin I Total Protein 6.1 L Albumin 2.5 L Globulin 3.6 Albumin/Globulin Ratio 0.7 L Lipase Beta-Hydroxybutyric Acd TSH 08/17/19 08/17/19 08/17/19 03:19 07:23 10:01 WBC RBC Hgb Hct MCV MCH MCHC RDW Std Deviation RDW Coeff of Stormy Plt Count MPV Immature Gran % (Auto) Neut % (Auto) Lymph % (Auto) Roane % (Auto) Eos % (Auto) Baso % (Auto) Immature Gran # (Auto) Neut # (Auto) Lymph # (Auto) Roane # (Auto) Eos # (Auto) Baso # (Auto) RBC Morphology APTT 44.7 H Pending PTT Ratio 1.6 Pending ABG pH ABG pCO2 ABG pO2 ABG HCO3 ABG O2 Saturation ABG Base Excess Harshad Test Barometric Pressure Oxygen Given Sodium Potassium Chloride Carbon Dioxide Anion Gap BUN Creatinine Est Cr Clr Drug Dosing Est GFR ( Amer) Est GFR (Non-Af Amer) BUN/Creatinine Ratio Glucose POC Glucose 252 H Estimat Average Glucose Hemoglobin A1c Calcium Magnesium Total Bilirubin AST ALT Alkaline Phosphatase POC Troponin I Troponin I Total Protein Albumin Globulin Albumin/Globulin Ratio Lipase Beta-Hydroxybutyric Acd TSH (1) CAD (coronary artery disease) Associated angina: with unspecified angina Coronary Disease-Associated Artery/Lesion type: [place] artery [place] vs. transplanted heart: [place] heart Qualified Code(s): I25.119 - Atherosclerotic heart disease of [place] coronary artery with unspecified angina pectoris
--- NOTE | 2019-08-17 11:01 | XRay Report ---
XR chest 1V portable HISTORY: 78 years-old Female follow up follow-up study in a patient with pleural effusions COMPARISON: Chest radiograph 08/16/2019 TECHNIQUE: Portable AP view of the chest FINDINGS: Cardiac silhouette is enlarged, unchanged. Stable positioning of the right pectoral [id number] cat heter. Persistent pulmonary edema pattern of disease appears unchanged. No pneumothorax. Persistent p leural effusions with persistent bibasilar opacities. The right pleural effusion may have mildly incr eased in size. No pneumothorax. Degenerative changes of the shoulders and spine. IMPRESSION: 1. Cardiomegaly with unchanged pulmonary edema. 2. Persistent pleural effusions with bibasilar opacities suggestive of atelectasis or pneumonia. The right pleural effusion may have mildly increased in size. The above report was generated using voice recognition software. It may contain grammatical, syntax o r spelling errors. Electronically signed by: Rob Juarez M.D. 08/17/2019 10:59 AM
[2019-08-17] MEDS: CARBOHYDRATES FOR HYPOGLYCEMIA PO PRN ×4 (13:46→14:50)
--- NOTE | 2019-08-17 14:13 | CT Scan Report ---
CT chest wo con CT DOSE: 566.32 mGy.cm HISTORY: Shortness of breath. hypoxia, pleural effusions TECHNIQUE: Multiaxial CT images of the chest were performed without contrast. A dose lowering techni que was utilized adhering to the principles of ALARA. COMPARISON: Chest CT 07/27/2019. FINDINGS: No pneumothorax. The central airways are patent. Interval development of small to moderate bilateral pleural effusions. Respiratory motion artifact. Bilateral lower lobe consolidation is nonsp ecific but favors compressive atelectasis from the pleural effusions. No fractures within the visuali zed osseous structures. Punctate calcified granulomas within the liver. Cholecystectomy. The unenhanc ed spleen and adrenal glands are unremarkable. The heart is mildly enlarged. Aortic and mitral valve calcifications are again noted. No significant pericardial effusion. Mildly enlarged mediastinal lymp h nodes, unchanged. No hilar lymphadenopathy. Normal caliber thoracic aorta. A right-sided Port-A-Cat h terminates in the SVC. IMPRESSION: 1. Interval development of small to moderate bilateral pleural effusions. 2. Partial consolidation within the bilateral lower lobes posteriorly is nonspecific but favors compr essive atelectasis from the pleural effusions. 3. Mild cardiomegaly. Electronically signed by: Rogerio Parker M.D. 08/17/2019 2:11 PM
--- NOTE | 2019-08-17 14:25 | Pharmacy Report ---
Glycemic Control Consultation - Date of Service August 17, 2019 - Scope Scope: Glycemic Pharmacist consulted by Jina Ruiz PA-C on 08/16/19 for glycemic control and to write orders per [facility] inpatient glycemic control protocol - Objective Weight: 75.6 kg Accuchecks BSG (last 24hrs): 08/16/19 08/16/19 08/16/19 13:50 18:53 18:54 Glucose 365 H* POC Glucose 361 H* 370 H* 08/16/19 08/16/19 08/16/19 20:40 21:34 22:25 Glucose POC Glucose 276 H 245 H 207 H 08/16/19 08/17/19 08/17/19 23:26 00:33 03:08 Glucose POC Glucose 176 H 116 H 181 H 08/17/19 08/17/19 08/17/19 03:19 07:23 11:16 Glucose 180 H POC Glucose 252 H 97 Laboratory Data (last 24hrs): 08/16/19 08/17/19 13:50 03:19 Potassium 4.5 4.5 Carbon Dioxide 22 24 Anion Gap 8.0 7.0 Creatinine 1.83 H 2.32 H D Est Cr Clr Drug Dosing 22.7 18.7 Beta-Hydroxybutyric Acd 5.13 H HbA1c: Hemoglobin A1c 9.5 % (4.5-5.6) H 08/17/19 03:19 - Recent Pertinent Medications Outpatient Anti-diabetic Regimen: * Insulin 70/30 - 55 units qam and 35 units qpm * A1c = 9.5 % (08/17/19) Risk Factors for Insulin Resistance: * IVF: heparin gtt (currently running at 20 mL/hr) - Assessment & Plan Assessment & Plan: ASSESSMENT: * Patient presented to [facility] ED on 08/16/19 with shortness of breath * In ED, patient found to be in atrial fibrillation with RVR * BSGs significantly elevated on admission (ranging 207-370 mg/dL yesterday) * 50 units of NPH given last night and insulin drip initiated (unclear of when drip was actually stopped last night) * Heparin gtt currently running at 22 mL/hr * Previous admission data shows that patient generally requires less insulin than outpatient regimen (when not receiving steroids) PLAN FOR INPATIENT GLYCEMIC CONTROL: * Holding outpatient 70/30 insulin and will utilize SC basal/bolus with NPH and novolog * Basal insulin * NPH 40 units given this morning * NPH scale for this evening (BSG less than 160 mg/dL - 0 units, 160 mg/dL or above - 10 units) * Bolus insulin - will loosen CF and CR based on rapid correction of BSGs from breakfast to lunch * NovoLog per scale ACHS or Q6hrs while NPO * Goal Range: Low 110 mg/dL - High 140 mg/dL * Correction Factor: 20 mg/dL/unit * Nutritional / Prandial insulin per carb ratio of 1 unit per 8 grams CHO consumed * Please note that the plan above was derived based on current level of insulin resistance and hospital stress. These recommendations are appropriate for inpatient admission only. Plan of care upon discharge will need to be reassessed to avoid potential outpatient hypo/hyperglycemia. Thank you.
--- NOTE | 2019-08-17 14:42 | Pulmonary Consultation ---
Date of Consultation August 17, 2019 Assessment & Plan (1) Anemia: (2) Paroxysmal atrial fibrillation: (3) Diastolic CHF: (4) Atrial fibrillation with RVR: (5) Hypoxia: The best I can determine is patient presented in diastolic heart failure presumably from valvular heart disease that includes moderate aortic stenosis and moderate mitral regurgitation along with diastolic dysfunction aggravated by paroxysmal atrial fibrillation with a rapid ventricular response. Patient may have a degree of COPD from remote smoking history and secondary exposure and had a small groundglass opacity in the right upper lobe that will need further follow-up. I would continue to treat the CHF and if need be therapeutic or diagnostic thoracentesis may be indicated if symptoms or level of hypoxemia worsen.Nephrology has been consulted and would recommend reinstitution of diuretics w an eye on cr clearance. (6) CKD (chronic kidney disease): (7) DUANE (obstructive sleep apnea): (8) Abnormal CT scan of lung: (9) Acute hypoxemic respiratory failure: (10) Angina pectoris, unstable: (11) History of CVA (cerebrovascular accident): (12) Aortic stenosis: (13) COPD (chronic obstructive pulmonary disease): History of Present Illness Attending Physician: Jacky Mich 78-year-old white female with significant past medical history that includes ischemic cardiomyopathy, COPD, insulin-dependent diabetes mellitus, previous CVA and chronic renal disease stage III along with hypertension and recurrent bouts of pancreatitis presented to the [facility] ED with progressive dyspnea over 1 to 2 days prior to admission. Apparently patient was hospitalized from 07/27 to 08/02/2019 with acute hypoxic respiratory failure and a COPD exacerbation along with chest pain. She has not done well since discharge but dramatically worsened with worsening chest pain and palpitations 24 hours prior to admission. She was found to be in atrial fibrillation with a rapid ventricular response from 120-150 and hypotensive. She was started on IV diltiazem with a drop in her blood pressure and no change in her heart rate initially then placed on a drip. Chest x-ray reportedly showed bilateral pleural effusions with pulmonary vascular congestion and patient was given IV Lasix and aerosolized nebulizer treatment with albuterol and Dilaudid for chest pain. Patient's heart rate has responded better blood pressure response is well and improve respiratory status. Patient was placed on BiPAP and stabilized and transferred to PCU. I was asked to see patient in consultation. Dr. Martin/cardiology outpatient consultation today who recommended continuing metoprolol 25 mg p.o. twice daily and low-dose oral diltiazem. Patient has a chronic left bundle branch block. Continue heparin with bridging to Coumadin. Coumadin was preferred to DOAC to do creatinine clearance. Diuretics were to be held. Plavix with Coumadin was to be utilized long-term. Patient was seen previously in pulmonary consultation by Dr. Sanchez Mike on 07/27/2019 during last hospitalization. Patient previously had had peripheral eosinophilia not during that admission per outpatient PFTs were recommended. At that time patient had a groundglass opacity in the anterior aspect of the right upper lobe. Radiographic follow-up in 3 to 6 months was recommended. Patient quit smoking in the but had significant secondhand smoke from her who smoked up to 3 packs of cigarettes a day. Uses a nebulizer at home. She denies history of childhood asthma. Patient has a history from cardiac catheterization and previous echocardiogram moderate aortic stenosis and mitral regurgitation and previous two-vessel stenting with additional nonocclusive disease. Allergies Allergy/AdvReac Type Severity Reaction Status Date / Time Gadolinium-Containing Allergy Severe NAUSEA,VOMITING, Verified 08/16/19 14:32 Contrast Medi SWELLING/EDEMA AROUND EYES, WHEEZING Iodinated Contrast Media Allergy Severe RASH TO Verified 08/16/19 14:32 IVP DYE,NAUSEA, FAINTING, COUGHING, GAGGING, HEADACH Sulfa (Sulfonamide Allergy Severe HIVES, Verified 08/16/19 14:32 Antibiotics) FACIAL AND ARM SWELLING cerivastatin Allergy Intermediate HIVES Verified 08/16/19 14:32 codeine Allergy Intermediate "PRICKLY Verified 08/16/19 14:32 RASH" hydroxyzine Allergy Intermediate N/V Verified 08/16/19 14:32 latex Allergy Intermediate DERMATITIS-PT Verified 08/16/19 14:32 TOLERATED A LATEX CATHETER 03/26/08 Bactrim Allergy Mild RASH Verified 04/29/18 14:40 diphenhydramine Allergy Mild RASH; Verified 08/16/19 14:32 SLEEPINESS WITH "PHARBEDRYL" loratadine Allergy Mild HIVES Verified 08/16/19 14:32 sulfamethoxazole Allergy Mild RASH Verified 08/16/19 14:32 trimethoprim Allergy Mild RASH Verified 08/16/19 14:32 prednisone Allergy Unknown elevates Verified 08/16/19 14:32 blood sugar tetanus toxoid, adsorbed AdvReac Intermediate SWELLING Verified 08/16/19 14:32 AT INJECTION SITE alprazolam AdvReac Unknown "SLEEPY Verified 08/16/19 14:32 STUPER" metformin AdvReac Unknown DIARRHEA Verified 08/16/19 14:32 morphine AdvReac Unknown VOMITING Verified 08/16/19 14:32 simvastatin AdvReac Unknown COUGH, Verified 08/16/19 14:32 "DISCOMFORT" gadobutrol [From Gadavist] AdvReac Anaphylaxis Unverified 08/16/19 14:32 Home Medications Home Medications Medication Instructions Recorded Confirmed Type amlodipine [Norvasc] 10 mg PO QAM 08/24/18 08/16/19 History aspirin 1 tab PO QPM 08/24/18 08/16/19 History dicyclomine 10 mg PO TID PRN 08/24/18 08/16/19 History fluticasone propionate [Flonase 2 spray INTRANASAL QPM PRN 08/24/18 08/16/19 History Allergy Relief] lorazepam [Ativan] 0.5 mg PO Q6 PRN 08/24/18 08/16/19 History ondansetron HCl [Zofran] 4 mg PO Q8H PRN 08/24/18 08/16/19 History trazodone 50 mg PO HS 08/24/18 08/16/19 History albuterol sulfate 2.5 mg INHALATION QID PRN 01/26/19 08/16/19 History levocetirizine [Xyzal] 2.5 mg PO QPM 01/26/19 08/16/19 History mirtazapine 45 mg PO HS 01/26/19 08/16/19 History ropinirole 1 mg PO HS 01/26/19 08/16/19 History atorvastatin 40 mg PO QAM #30 tab 01/28/19 08/16/19 Rx clopidogrel 75 mg PO QAM #30 tab 01/28/19 08/16/19 Rx isosorbide mononitrate 30 mg PO QAM #30 tab 01/28/19 08/16/19 Rx nitroglycerin [Nitrostat] 0.4 mg SUBLINGUAL PRN PRN #30 tab 01/28/19 08/16/19 Rx Novolin 70/30 U-100 Insulin 35 unit SUBCUT QPM 05/04/19 08/16/19 History Novolin 70/30 U-100 Insulin 55 unit SUBCUT QAM 05/04/19 08/16/19 History albuterol sulfate [Proventil HFA] 2 puff INHALATION Q4 PRN 05/04/19 08/16/19 History gabapentin 800 mg PO HS 07/11/19 08/16/19 History magnesium oxide 400 mg PO QPM 07/11/19 08/16/19 History metoprolol tartrate 25 mg PO BID 07/11/19 08/16/19 History montelukast [Singulair] 10 mg PO HS 30 Days #30 tab 08/02/19 08/16/19 Rx pantoprazole 40 mg PO BID 30 Days #60 tab 08/02/19 08/16/19 Rx fexofenadine 60 mg tablet 60 mg PO DAILY tab 08/11/19 08/16/19 History ranitidine 300 mg capsule 300 mg PO HS #30 cap 08/11/19 08/16/19 History cholestyramine-aspartame 4 g PO DAILY 08/16/19 08/16/19 History guaifenesin 100 mg PO Q6H PRN 08/16/19 08/16/19 History hydrocodone-homatropine 5 ml PO Q6H PRN 08/16/19 08/16/19 History loratadine 10 mg PO DAILY 08/16/19 08/16/19 History losartan 100 mg PO DAILY 08/16/19 08/16/19 History mometasone-formoterol [Dulera] 2 puff INHALATION BID 08/16/19 08/16/19 History simethicone 80 mg PO Q6H PRN 08/16/19 08/16/19 History Patient History Medical History GERD (gastroesophageal reflux disease) Osteoarthritis (Chronic) Seasonal allergies (Chronic) Aortic stenosis (Chronic) moderate Pancreatitis (Chronic) Valvular heart disease Non-STEMI (non-ST elevated myocardial infarction) 01/2019 Left bundle branch block Giant cell arteritis (Resolved) Gastroparesis (Chronic) Dyslipidemia (Chronic) Depression (Chronic) HTN (hypertension) (Chronic) Insomnia (Chronic) RLS (restless legs syndrome) (Chronic) Peripheral neuropathy (Chronic) Pancreatic cyst (Chronic) Anxiety (Chronic) COPD (chronic obstructive pulmonary disease) (Chronic) Diabetes mellitus, type II (Chronic) poorly controlled Sleep apnea (Chronic) PT DENIES/NO DEVICE Chronic pancreatitis (Chronic) Cerebrovascular disease (Chronic) "history stroke and TIA" L sided weakness. Fatty liver (Chronic) Esophageal dysmotility (Chronic) Pancreatic divisum (Chronic) CKD (chronic kidney disease), stage III (Chronic) F/U PCP Surgical History History of ERCP (Resolved) x3 with stents. ERCP 04/30/18. MAC 3, grade 2 view. 7.0 ETT placed. No issues. History of bilateral tubal ligation (Resolved) S/P cardiac catheterization (Resolved) 01/2019 [facility] X 2-TOTAL 2 STENTS 04/2019 non obstructive disease History of cataract surgery (Chronic) both eyes Family History Daughter No problems noted. Father Family history of diabetes mellitus Family/Other Family history of diabetes mellitus Mother Family history of diabetes mellitus Grandfather Family history of diabetes mellitus Grandmother Family history of diabetes mellitus Social History Preferred Language: Urdu Communication Ability: Effective Manager Developmental Required: No Beliefs That Will Affect Care: None marital status: / Current Living Situation: Alone Current Living Situation Comment: january 21, no longer has drivers license - stroke Other Information That Helps Us Care for You: No Feels Safe at Home: Yes Safety Concerns: Feels Safe At This Time Smoking Status: Never smoker Do You Dip or Chew Tobacco: No ; Second Hand Exposure: No ; Tobacco Cessation Education Requested by Patient: No Hx Alcohol Use: No Hx Substance Use: No Review of Systems Constitutional: no problem reported Eyes: no problem reported Ear, Nose, Mouth, Throat: no problem reported Respiratory: no problem reported Cardiovascular: no problem reported Gastrointestinal: no problem reported Genitourinary: no problem reported Musculoskeletal: no problem reported Integumentary: no problem reported Neurologic: no problem reported Psychiatric: no problem reported Endocrine: no problem reported Hematologic / Lymphatic: no problem reported Allergy / Immunological: no problem reported Physical Exam Constitutional: well developed and well nourished; no acute distress Eyes: PERRL, conjunctivae normal, anicteric sclerae ENMT: external ear and nose normal, oropharynx normal Neck: trachea midline, no thyromegaly Respiratory: normal respiratory effort, + dullness to percussion (Bilateral at the bases) and + hyperresonance to percussion Auscultation: lungs clear to auscultation bilaterally and + diminished lung sounds Cardiovascular: RRR, no murmur, no edema Heart Sounds: + murmur (Grade 2/6 crescendo decrescendo murmur heard in aortic region and grade 2/6 holosystolic murmur heard at the left apex no S3) Palpation: normal PMI; no thrill Gastrointestinal (Abdomen): normal bowel sounds, soft, nontender, no hepa tosplenomegaly Musculoskeletal: no cyanosis or clubbing, extremities motor strength 5/5 Gait: normal gait Skin: no rashes, warm and dry Neurologic: PERRL, EOMI, accommodation nl, no face palsy, no dysarthria Psychiatric: A+Ox3, euthymic affect Lymphatic: no cervical or axillary lymphadenopathy Results & Data Vital Signs (Past 12 Hours) Vital Signs Temp Pulse Pulse Resp BP BP Pulse Ox 08/17/19 13:46 08/17/19 11:18 36.5 C 68 20 98/61 L 96 08/17/19 10:42 36.4 C L 65 19 100/62 96 08/17/19 08:00 71 08/17/19 07:26 36.8 C 71 20 111/62 93 08/17/19 07:04 77 20 93 08/17/19 03:20 37.1 C 73 16 94/56 L 94 Pulse Ox 08/17/19 13:46 92 08/17/19 11:18 08/17/19 10:42 08/17/19 08:00 08/17/19 07:26 08/17/19 07:04 08/17/19 03:20 Laboratory Results Abnormal Labs 08/16/19 08/16/19 08/16/19 13:50 13:50 16:21 WBC 12.12 H RBC 3.47 L Hgb 10.1 L Hct 30.7 L RDW Std Deviation 47.8 H RDW Coeff of Stormy 15.0 H Immature Gran # (Auto) 0.03 H Neut # (Auto) 8.66 H [place] # (Auto) 0.81 H APTT ABG pCO2 31 L ABG pO2 96 H ABG O2 Saturation 97.1 H BUN 23 H Creatinine 1.83 H Glucose 365 H* POC Glucose Hemoglobin A1c Calcium 8.2 L AST 13 L Total Protein Albumin 2.7 L Albumin/Globulin Ratio 0.7 L Lipase 56 L Beta-Hydroxybutyric Acd 5.13 H 08/16/19 08/16/19 08/16/19 18:53 18:54 20:40 WBC RBC Hgb Hct RDW Std Deviation RDW Coeff of Stormy Immature Gran # (Auto) Neut # (Auto) [place] # (Auto) APTT ABG pCO2 ABG pO2 ABG O2 Saturation BUN Creatinine Glucose POC Glucose 361 H* 370 H* 276 H Hemoglobin A1c Calcium AST Total Protein Albumin Albumin/Globulin Ratio Lipase Beta-Hydroxybutyric Acd 08/16/19 08/16/19 08/16/19 21:34 22:25 23:26 WBC RBC Hgb Hct RDW Std Deviation RDW Coeff of Stormy Immature Gran # (Auto) Neut # (Auto) [place] # (Auto) APTT ABG pCO2 ABG pO2 ABG O2 Saturation BUN Creatinine Glucose POC Glucose 245 H 207 H 176 H Hemoglobin A1c Calcium AST Total Protein Albumin Albumin/Globulin Ratio Lipase Beta-Hydroxybutyric Acd 08/17/19 08/17/19 08/17/19 00:33 03:08 03:19 WBC 11.67 H RBC 3.02 L Hgb 9.0 L Hct 26.8 L RDW Std Deviation 48.4 H RDW Coeff of Stormy 15.1 H Immature Gran # (Auto) 0.03 H Neut # (Auto) 8.76 H [place] # (Auto) 0.82 H APTT ABG pCO2 ABG pO2 ABG O2 Saturation BUN Creatinine Glucose POC Glucose 116 H 181 H Hemoglobin A1c Calcium AST Total Protein Albumin Albumin/Globulin Ratio Lipase Beta-Hydroxybutyric Acd 08/17/19 08/17/19 08/17/19 03:19 03:19 03:19 WBC RBC Hgb Hct RDW Std Deviation RDW Coeff of Stormy Immature Gran # (Auto) Neut # (Auto) [place] # (Auto) APTT 44.7 H ABG pCO2 ABG pO2 ABG O2 Saturation BUN 27 H Creatinine 2.32 H D Glucose 180 H POC Glucose Hemoglobin A1c 9.5 H Calcium 7.9 L AST 12 L Total Protein 6.1 L Albumin 2.5 L Albumin/Globulin Ratio 0.7 L Lipase Beta-Hydroxybutyric Acd 08/17/19 08/17/19 08/17/19 07:23 10:01 13:41 WBC RBC Hgb Hct RDW Std Deviation RDW Coeff of Stormy Immature Gran # (Auto) Neut # (Auto) [place] # (Auto) APTT 90.0 H* ABG pCO2 ABG pO2 ABG O2 Saturation BUN Creatinine Glucose POC Glucose 252 H 49 L* Hemoglobin A1c Calcium AST Total Protein Albumin Albumin/Globulin Ratio Lipase Beta-Hydroxybutyric Acd 08/17/19 08/17/19 08/17/19 13:45 14:01 14:21 WBC RBC Hgb Hct RDW Std Deviation RDW Coeff of Stormy Immature Gran # (Auto) Neut # (Auto) [place] # (Auto) APTT ABG pCO2 ABG pO2 ABG O2 Saturation BUN Creatinine Glucose POC Glucose 55 L* 62 L* 55 L* Hemoglobin A1c Calcium AST Total Protein Albumin Albumin/Globulin Ratio Lipase Beta-Hydroxybutyric Acd 08/17/19 14:44 WBC RBC Hgb Hct RDW Std Deviation RDW Coeff of Stormy Immature Gran # (Auto) Neut # (Auto) [place] # (Auto) APTT ABG pCO2 ABG pO2 ABG O2 Saturation BUN Creatinine Glucose POC Glucose 64 L* Hemoglobin A1c Calcium AST Total Protein Albumin Albumin/Globulin Ratio Lipase Beta-Hydroxybutyric Acd Diagnostic Findings CT Scan Report Patient: PALLAVI LASSITER Date: 07/27/19 MR#: [id number]: [address] Acct ID:[id number]: Date: 1940[facility] Zip: [place] [address] Age: 78Location: 2S Sex: F Room/Bed: [facility] Att Phy: Yony Gonzalez MDDiagnosis: cp, hyperglycemic crisis Tosha Phy: Colleen Jefferson, DOService Date: 07/27/19 Fam Phy:Interpreting Phy: Rogerio Parker MD Admit Phy: Eulogio Russ MD Ordering Phy: Eulogio Russ MD cc: ~ CT chest wo con CT DOSE: 816.91 mGy.cm HISTORY: cough ro pneumonia TECHNIQUE: Multiaxial CT images of the chest were performed without contrast. A dose lowering technique was utilized adhering to the principles of ALARA. COMPARISON: Chest CT 11/24/2015. FINDINGS: The central airways are patent. No pleural effusions. No pneumothorax. Punctate calcified granuloma within the left lower lobe. Mild peripheral/subpleural reticulation suggests chronic interstitial change. This is most pronounced at the lung bases. Small focus of groundglass densities within the right upper lobe anteriorly which have a tree-in-bud pattern. This is best seen on image 109 and favors a mild infectious bronchiolitis. Otherwise, no focal lung consolidations identified. No suspicious lytic or blastic osseous lesions. Hepatic steatosis. Multiple calcified granulomas within the liver and spleen. Cholecystectomy. A single borderline enlarged right axillary lymph node remains stable. Therefore, this is likely benign. A few prominent mediastinal lymph nodes remains stable. The dominant subcarinal lymph node has slightly increased in size. This measures 1.5 cm in short axis diameter, previously measuring 1.2 cm. No hilar lymphadenopathy. Normal esophagus. Dense mitral annulus calcifications. Right jugular Port-A-Cath terminates in the distal SVC. The heart is borderline enlarged. Normal caliber thoracic aorta. No pericardial effusions. IMPRESSION: 1. Mild peripheral/subpleural reticulation suggests chronic interstitial change. 2. Small focus of groundglass tree-in-bud nodular opacities within the right upper lobe anteriorly. This favors a mild infectious bronchiolitis. Otherwise, no focal lung consolidations identified. 3. The majority of the prominent mediastinal lymph nodes are stable. Slight increase in size in the dominant subcarinal lymph node. 4. Hepatic steatosis. Electronically signed by: Rogerio Parker M.D. 07/27/2019 8:48 AM Dictated: 07/27/19839 Transcribed: 07/27/19839 Medications Administered Current Inpatient Medications Acetaminophen (Tylenol) 650 mg PO Q4H PRN PRN Reason: Pain or Fever Stop: 09/15/19 18:17 Al Hydrox/Mg Hydrox/Simethicone (Maalox) 15 ml PO Q4H PRN PRN Reason: Dyspepsia Stop: 09/15/19 18:17 Aspirin (Ecotrin Ectab) 81 mg PO QPM JOHN Stop: 09/15/19 20:59 Last Admin: 08/16/19 20:46 Dose: 81 mg Documented by: Atorvastatin Calcium (Lipitor) 40 mg PO QAM [facility] Stop: 09/16/19 08:59 Last Admin: 08/17/19 08:31 Dose: 40 mg Documented by: Budesonide (Pulmicort Respules) 0.5 mg NEB BIDR [facility] Stop: 09/15/19 18:59 Last Admin: 08/17/19 07:02 Dose: 0.5 mg Documented by: Clopidogrel Bisulfate (Plavix) 75 mg PO QAM [facility] Stop: 09/16/19 08:59 Last Admin: 08/17/19 08:27 Dose: 75 mg Documented by: Dextrose (Dextrose 50%) 25 - 50 ml IV UD PRN; Protocol PRN Reason: Hypoglycemia Protocol Stop: 09/15/19 18:17 Diltiazem HCl (Cardizem) 60 mg PO Q8H [facility] Stop: 09/15/19 19:29 Last Admin: 08/17/19 11:49 Dose: 60 mg Documented by: Gabapentin (Neurontin) 800 mg PO HS [facility] Stop: 09/15/19 20:59 Last Admin: 08/16/19 20:48 Dose: 800 mg Documented by: Glucagon (Glucagen) 1 mg SQ UD PRN; Protocol PRN Reason: Hypoglycemia Protocol Stop: 09/15/19 18:17 Glucose (Glucose 40%) 15 - 30 gm PO UD PRN; Protocol PRN Reason: Hypoglycemia Protocol Stop: 09/15/19 18:17 Glucose (Dex4 Glucose) 4 - 8 tabs PO UD PRN; Protocol PRN Reason: Hypoglycemia Protocol Stop: 09/15/19 18:17 Heparin Sodium (Porcine) (Heparin Sod 100 Unit/Ml Flush) 5 ml FLUSH PRN PRN PRN Reason: Flush Stop: 09/16/19 00:14 Heparin Sodium/Dextrose (Heparin Sodium/Dextrose) 25,000 units in 500 mls @ 20 mls/hr IV .Q24H JOHN; Protocol Stop: 09/15/19 15:44 Last Titration: 08/17/19 15:06 Dose: Infused Documented by: Insulin Aspart (Novolog Flexpen) 0 units SC ACHS [facility] Stop: 09/15/19 18:17 Last Admin: 08/17/19 12:15 Dose: 15 units Documented by: Insulin Aspart (Novolog Flexpen) 0 units SC TODAY@0000,0400 [facility] Stop: 08/18/19 04:01 Insulin Human NPH (Novolin N Nph) 0 units SC QDD [facility]; Protocol Stop: 08/17/19 16:31 Isosorbide Mononitrate (Imdur Extended Rel) 30 mg PO QAM [facility] Stop: 09/16/19 08:59 Last Admin: 08/17/19 08:29 Dose: 30 mg Documented by: Lorazepam (Ativan) 0.5 mg PO Q6 PRN PRN Reason: Anxiety Stop: 09/15/19 18:17 Magnesium Hydroxide (Milk Of Magnesia) 30 ml PO Q12H PRN PRN Reason: Constipation Stop: 09/15/19 18:17 Magnesium Oxide (Mag-Ox) 400 mg PO QPM [facility] Stop: 09/15/19 20:59 Last Admin: 08/16/19 20:47 Dose: 400 mg Documented by: Metoprolol Tartrate (Lopressor) 25 mg PO BID [facility] Stop: 09/15/19 20:59 Last Admin: 08/17/19 08:30 Dose: 25 mg Documented by: Mirtazapine (Remeron Solutab) 45 mg PO HS [facility] Stop: 09/15/19 20:59 Last Admin: 08/16/19 20:49 Dose: 45 mg Documented by: Miscellaneous (Carbohydrates For Hypoglycemia) 15 - 30 gm PO UD PRN PRN Reason: Hypoglycemia Treatment Stop: 09/15/19 18:17 Last Admin: 08/17/19 14:50 Dose: 30 gm Documented by: Miscellaneous Information (Consult Glycemic Management Pharmacy) 1 ea N/A UD PRN; Protocol PRN Reason: Consult Stop: 09/15/19 18:37 Montelukast Sodium (Singulair) 10 mg PO HS [facility] Stop: 09/15/19 20:59 Last Admin: 08/16/19 20:50 Dose: 10 mg Documented by: Ondansetron HCl (Zofran) 4 mg IV Q6H PRN PRN Reason: Nausea Stop: 09/15/19 18:17 Pantoprazole Sodium (Protonix) 40 mg PO BID [facility] Stop: 09/15/19 20:59 Last Admin: 08/17/19 08:28 Dose: 40 mg Documented by: Polyethylene Glycol (Miralax Powder Packet) 17 gm PO DAILY PRN PRN Reason: Constipation Stop: 09/15/19 18:17 Ropinirole HCl (Requip) 1 mg PO HS JOHN Stop: 09/15/19 20:59 Last Admin: 08/16/19 20:49 Dose: 1 mg Documented by: Trazodone HCl (Desyrel) 50 mg PO HS JOHN Stop: 09/15/19 20:59 Last Admin: 08/16/19 20:46 Dose: 50 mg Documented by: Warfarin Sodium (Coumadin) 5 mg PO DAILY@1600 [facility] Stop: 09/16/19 15:59 PG Care Time/CCT Total # of Minutes Spent Total Time Spent with Patient: Total time spent is greater than 50% in coordination of care (as documented) at patient's floor/unit and/or counseling patient:
--- NOTE | 2019-08-17 15:44 | Nephrology Consultation ---
Date of Consultation August 17, 2019 Assessment & Plan (1) Acute kidney injury superimposed on CKD: prerenal versus ischemic ATN in the setting of hemodynamic instability from AF w/ RVR now with ongoing hypotension and marked volume OL -approach will be gentle diuresis in hopes of improving renal perfusion -given hypotension today expect creat to worsen before improvement -ordered UACM for completeness -no renal imaging needed at this time -daily bmp -diuretics as below Present on Admission?: Yes (2) Labile blood pressure: had been normotensive yesterday/ prior admissions and w/ relative hypotension now >> gentle diuresis; defer to primary team/cardiology if rate control meds can be scaled back somewhat Present on Admission?: Yes (3) Diastolic CHF: valvular and diastolic HF w/ marked volume overload on exam as evidenced by pl effusions, hypoxia >> recommend trial of gentle diuresis 10 mg IV lasix q4h to start -cont <2 gm daily Na diet -no FR for now as her BG have been labile / getting lots of juice but watch for chance to start one Present on Admission?: Yes History of Present Illness Reason for Consultation: MARIE on CKD3 Requesting Physician: Dr Epps Attending Physician: Jacky Epps, DO History of Present Illness 78 y/o F whom I'm asked to see for MARIE on CKD 3 after she was admitted yesterday for acute hypoxemic respiratory failure in the setting of AF w/ RVR. PMH includes CAD s/p 01/2019 stent followed by 2 strokes, chronic diastolic HF, COPD, DM2 (last A1c 10.4), HTN, IPMN, hx ERCP stenting procedures (last one 2017), rec urrent pancreatitis, MDD, CKD 3 w/ baseline creatinine of 1.3-1.5 in [facility]. On presentation yesterday creatinine was 1.8; this am it was 2.3. She was admitted here earlier this month for COPD exacerbation. OP medications include losartan 100 mg daily, insulin, amlodipine 10 mg qAM, metoprolol 25 mg bid, magnesium 400 mg pm. Her blood pressures were in 120s-130s systolic on presentation and at last OV; has dropped in 90s repeatedly today. Her HR initially was in 130s but by late yesterday afternoon was improved to 60-70s. She had been on a heparin gtt. Had 40 mg IV lasix x 1 yesterday. Else no IVF, no other diuretics. On 02NC 4L. Tired but otherwise feeling ok; no pain currently. Not sob now. denies acute illness recently; does state she noted worsening edema, sob, some facial swelling prior to admission. Allergies Allergy/AdvReac Type Severity Reaction Status Date / Time Gadolinium-Containing Allergy Severe NAUSEA,VOMITING, Verified 08/16/19 14:32 Contrast Medi SWELLING/EDEMA AROUND EYES, WHEEZING Iodinated Contrast Media Allergy Severe RASH TO Verified 08/16/19 14:32 IVP DYE,NAUSEA, FAINTING, COUGHING, GAGGING, HEADACH Sulfa (Sulfonamide Allergy Severe HIVES, Verified 08/16/19 14:32 Antibiotics) FACIAL AND ARM SWELLING cerivastatin Allergy Intermediate HIVES Verified 08/16/19 14:32 codeine Allergy Intermediate "PRICKLY Verified 08/16/19 14:32 RASH" hydroxyzine Allergy Intermediate N/V Verified 08/16/19 14:32 latex Allergy Intermediate DERMATITIS-PT Verified 08/16/19 14:32 TOLERATED A LATEX CATHETER 03/26/08 Bactrim Allergy Mild RASH Verified 04/29/18 14:40 diphenhydramine Allergy Mild RASH; Verified 08/16/19 14:32 SLEEPINESS WITH "PHARBEDRYL" loratadine Allergy Mild HIVES Verified 08/16/19 14:32 sulfamethoxazole Allergy Mild RASH Verified 08/16/19 14:32 trimethoprim Allergy Mild RASH Verified 08/16/19 14:32 prednisone Allergy Unknown elevates Verified 08/16/19 14:32 blood sugar tetanus toxoid, adsorbed AdvReac Intermediate SWELLING Verified 08/16/19 14:32 AT INJECTION SITE alprazolam AdvReac Unknown "SLEEPY Verified 08/16/19 14:32 STUPER" metformin AdvReac Unknown DIARRHEA Verified 08/16/19 14:32 morphine AdvReac Unknown VOMITING Verified 08/16/19 14:32 simvastatin AdvReac Unknown COUGH, Verified 08/16/19 14:32 "DISCOMFORT" gadobutrol [From Gadavist] AdvReac Anaphylaxis Unverified 08/16/19 14:32 Home Medications Home Medications Medication Instructions Recorded Confirmed Type amlodipine [Norvasc] 10 mg PO QAM 08/24/18 08/16/19 History aspirin 1 tab PO QPM 08/24/18 08/16/19 History dicyclomine 10 mg PO TID PRN 08/24/18 08/16/19 History fluticasone propionate [Flonase 2 spray INTRANASAL QPM PRN 08/24/18 08/16/19 History Allergy Relief] lorazepam [Ativan] 0.5 mg PO Q6 PRN 08/24/18 08/16/19 History ondansetron HCl [Zofran] 4 mg PO Q8H PRN 08/24/18 08/16/19 History trazodone 50 mg PO HS 08/24/18 08/16/19 History albuterol sulfate 2.5 mg INHALATION QID PRN 01/26/19 08/16/19 History levocetirizine [Xyzal] 2.5 mg PO QPM 01/26/19 08/16/19 History mirtazapine 45 mg PO HS 01/26/19 08/16/19 History ropinirole 1 mg PO HS 01/26/19 08/16/19 History atorvastatin 40 mg PO QAM #30 tab 01/28/19 08/16/19 Rx clopidogrel 75 mg PO QAM #30 tab 01/28/19 08/16/19 Rx isosorbide mononitrate 30 mg PO QAM #30 tab 01/28/19 08/16/19 Rx nitroglycerin [Nitrostat] 0.4 mg SUBLINGUAL PRN PRN #30 tab 01/28/19 08/16/19 Rx Novolin 70/30 U-100 Insulin 35 unit SUBCUT QPM 05/04/19 08/16/19 History Novolin 70/30 U-100 Insulin 55 unit SUBCUT QAM 05/04/19 08/16/19 History albuterol sulfate [Proventil HFA] 2 puff INHALATION Q4 PRN 05/04/19 08/16/19 History gabapentin 800 mg PO HS 07/11/19 08/16/19 History magnesium oxide 400 mg PO QPM 07/11/19 08/16/19 History metoprolol tartrate 25 mg PO BID 07/11/19 08/16/19 History montelukast [Singulair] 10 mg PO HS 30 Days #30 tab 08/02/19 08/16/19 Rx pantoprazole 40 mg PO BID 30 Days #60 tab 08/02/19 08/16/19 Rx fexofenadine 60 mg tablet 60 mg PO DAILY tab 08/11/19 08/16/19 History ranitidine 300 mg capsule 300 mg PO HS #30 cap 08/11/19 08/16/19 History cholestyramine-aspartame 4 g PO DAILY 08/16/19 08/16/19 History guaifenesin 100 mg PO Q6H PRN 08/16/19 08/16/19 History hydrocodone-homatropine 5 ml PO Q6H PRN 08/16/19 08/16/19 History loratadine 10 mg PO DAILY 08/16/19 08/16/19 History losartan 100 mg PO DAILY 08/16/19 08/16/19 History mometasone-formoterol [Dulera] 2 puff INHALATION BID 08/16/19 08/16/19 History simethicone 80 mg PO Q6H PRN 08/16/19 08/16/19 History Patient History Medical History GERD (gastroesophageal reflux disease) Osteoarthritis (Chronic) Seasonal allergies (Chronic) Aortic stenosis (Chronic) moderate Pancreatitis (Chronic) Valvular heart disease Non-STEMI (non-ST elevated myocardial infarction) 01/2019 Left bundle branch block Giant cell arteritis (Resolved) Gastroparesis (Chronic) Dyslipidemia (Chronic) Depression (Chronic) HTN (hypertension) (Chronic) Insomnia (Chronic) RLS (restless legs syndrome) (Chronic) Peripheral neuropathy (Chronic) Pancreatic cyst (Chronic) Anxiety (Chronic) COPD (chronic obstructive pulmonary disease) (Chronic) Diabetes mellitus, type II (Chronic) poorly controlled Sleep apnea (Chronic) PT DENIES/NO DEVICE Chronic pancreatitis (Chronic) Cerebrovascular disease (Chronic) "history stroke and TIA" L sided weakness. Fatty liver (Chronic) Esophageal dysmotility (Chronic) Pancreatic divisum (Chronic) CKD (chronic kidney disease), stage III (Chronic) F/U PCP Surgical History History of ERCP (Resolved) x3 with stents. ERCP 04/30/18. MAC 3, grade 2 view. 7.0 ETT placed. No issues. History of bilateral tubal ligation (Resolved) S/P cardiac catheterization (Resolved) 01/2019 [facility] X 2-TOTAL 2 STENTS 04/2019 non obstructive disease History of cataract surgery (Chronic) both eyes Family History Daughter No problems noted. Father Family history of diabetes mellitus Family/Other Family history of diabetes mellitus Mother Family history of diabetes mellitus Grandfather Family history of diabetes mellitus Grandmother Family history of diabetes mellitus Social History Preferred Language: Japanese Communication Ability: Effective Precision Lens Technician Required: No Beliefs That Will Affect Care: None marital status: / Current Living Situation: Alone Current Living Situation Comment: january 21, no longer has drivers license - stroke Other Information That Helps Us Care for You: No Feels Safe at Home: Yes Safety Concerns: Feels Safe At This Time Smoking Status: Never smoker Do You Dip or Chew Tobacco: No ; Second Hand Exposure: No ; Tobacco Cessation Education Requested by Patient: No Hx Alcohol Use: No Hx Substance Use: No Review of Systems Review of Systems: All systems reviewed & are unremarkable except as noted in HPI & below Constitutional: as per Subjective / HPI, + fatigue and + weakness does not do daily wts at home Eyes: no worsening vision Respiratory: as per Subjective / HPI, + dyspnea, + dyspnea on exertion and + wheezing; no cough Cardiovascular: + dyspnea on exertion, + orthopnea and + edema; no chest pain and no palpitations Gastrointestinal: no abdominal pain, no early satiety, no change in bowel habits and no diarrhea/loose stools Genitourinary: no dysuria, no urinary frequency and no urinary hesitancy Integumentary: no rash and no non-healing lesions Neurologic: s/p stroke Psychiatric: no behavioral changes and no confusion Physical Exam Constitutional: well developed, + obese, + frail appearing and cooperative on 02NC in bed, too weak to lean forward for exam w/o 1-2 person asst Eyes: EOM intact bilaterally ENMT: Ears: no external ear abnormality Nose: no external nose abnormality Mouth: + dry oral mucous membranes Neck: no nuchal rigidity Respiratory: + labored breathing Auscultation: + breath sounds absent (BL bases), + diminished lung sounds (markedly BL post page) and + wheezes (insp BL) Cardiovascular: RRR, no murmur, no edema Gastrointestinal (Abdomen): Inspection/Auscultation: + abdomen distended and normal bowel sounds Percussion/Palpation: abdomen soft; abdomen nontender Musculoskeletal: Extremities: + abnormal strength (weak w/ exam maneuvers) Skin: no rashes, warm and dry Neurologic: [place], fluent speech, mild axial tremor Psychiatric: A+Ox3, euthymic affect Eye Contact: good eye contact Speech: normal rate/rhythm/volume of speech Insight: + limited insight Judgement: + limited judgement Genitourinary: dickinson present w/ yellow urine Results & Data Vital Signs (Past 12 Hours) Vital Signs Temp Pulse Pulse Resp BP BP Pulse Ox 08/17/19 15:11 63 18 99/68 L 96 08/17/19 13:46 08/17/19 11:18 36.5 C 68 20 98/61 L 96 08/17/19 10:42 36.4 C L 65 19 100/62 96 08/17/19 08:00 71 08/17/19 07:26 36.8 C 71 20 111/62 93 08/17/19 07:04 77 20 93 Pulse Ox 08/17/19 15:11 08/17/19 13:46 92 08/17/19 11:18 08/17/19 10:42 08/17/19 08:00 08/17/19 07:26 08/17/19 07:04 Laboratory Results 08/17/19 03:19 08/17/19 03:[address] Chest non con 1. Interval development of small to moderate bilateral pleural effusions. 2. Partial consolidation within the bilateral lower lobes posteriorly is nonspecific but favors compressive atelectasis from the pleural effusions. 3. Mild cardiomegaly. cxr today 1. Cardiomegaly with unchanged pulmonary edema. 2. Persistent pleural effusions with bibasilar opacities suggestive of atelectasis or pneumonia. The right pleural effusion may have mildly increased in size. TTE 07/27/19 normal LV systolic function; EF 60-65% small circumferential pericardial effusion w/ stranding to suggest chronicity. TTE 06/2019 EF 65%, no WMA; moderate ; m-mod MR, mild TR, grade I diastolic dysfunction
[2019-08-17] MEDS: WARFARIN SOD 5 MG TAB PO SCH (17:17)
[2019-08-17] MEDS: FUROSEMIDE 10 MG in SYRINGE 0 ML IV SCH ×2 (17:25→21:25)
[2019-08-17] MEDS ORDERED: ALBUMIN 25% 50 ML with FUROSEMIDE 60 MG IV SCH (18:00)
[2019-08-17 18:06] LABS: Partial Thromboplastin Ratio 2.4
[2019-08-17 18:30] LABS: Partial Thromboplastin Time 65.1 Seconds (21.0-31.0)
[2019-08-17] MEDS: ALBUTEROL HFA 8 GM INHALER INH SCH (21:21)
[2019-08-17] MEDS: TRAZODONE HCL 50 MG TAB PO SCH (21:22)
[2019-08-17] MEDS: ASPIRIN 81 MG ECTAB PO SCH (21:22)
[2019-08-17] MEDS: MAGNESIUM OXIDE 400 MG TAB PO SCH (21:23)
[2019-08-17] MEDS: MONTELUKAST SODIUM 10 MG TABLET PO SCH (21:23)
[2019-08-17] MEDS: HEPARIN SODIUM/DEXTROSE 25,000 UNITS/500 ML BAG IV SCH (21:24)
[2019-08-17 21:38] LABS: Appearance Urine Turbid (Clear); Bacteria Urine Automated Negative (Negative); Bilirubin Urine Negative (Negative); Blood Urine 3+ (Negative); Color Urine Yellow; Epithelial Cell Urine Auto >30 /lpf (0-5); Glucose Urine UA Negative (Negative); Ketones Urine Trace (Negative); Leukocyte Esterase Urine 1+ (Negative); Nitrite Urine Negative (Negative); Protein Urine 1+ (Negative); Specific Gravity Urine 1.022 (1.000-1.030); Urobilinogen Urine Negative (Negative)
[2019-08-17 21:55] LABS: Amorphous Sediment Urine Present (None Prsent)
[2019-08-18] MEDS: FUROSEMIDE 10 MG in SYRINGE 0 ML IV SCH ×3 (00:53→08:11)
[2019-08-18] MEDS: ALBUTEROL HFA 8 GM INHALER INH SCH ×3 (00:53→08:09)
[2019-08-18] MEDS: INSULIN ASPART 100 UNITS/ML 3 ML PEN SC SCH ×7 (00:54→20:35)
[2019-08-18] MEDS: dilTIAZem HCl 60 MG TAB PO SCH ×3 (03:27→19:07)
[2019-08-18 06:30] LABS: Hematocrit (blood only) 28.4 % (37-47); Hemoglobin 9.3 g/dL (12.0-16.0); Mean Corpuscular Hemoglobin 29.4 pg (25-34); Mean Corpuscular Hgb Conc 32.7 g/dL (32-36); Mean Corpuscular Volume 89.9 fL (80-100); Mean Platelet Volume 9.3 fL (7.4-10.4); Platelet Count 283 K/uL (130-400); RDW Coefficient of Variation 15.2 % (11.5-14.5); RDW Standard Deviation 49.4 fL (36.4-46.3); Red Blood Count 3.16 M/uL (4.2-5.4); White Blood Count 9.94 K/uL (4.8-10.8)
[2019-08-18 06:46] LABS: INR 1.1 (0.9-1.1); Prothrombin Time 11.5 Seconds (9.0-12.0)
[2019-08-18 06:55] LABS: BUN Creatinine Ratio 12.9 (10-20); Calcium 8.5 mg/dl (8.5-10.1); Creatinine Clr Calc Pharmacy 17.6 ml/min; Est GFR (African American) 21.9; Est GFR (Non-African American) 18.9; Magnesium 2.1 mg/dl (1.8-2.4); Potassium 4.1 mmol/L (3.5-5.1)
[2019-08-18 07:04] LABS: Partial Thromboplastin Ratio 1.9
[2019-08-18] MEDS: BUDESONIDE 0.5 MG/2 ML VIAL (PULMICORT) NEB SCH ×2 (07:05→19:08)
[2019-08-18 07:07] LABS: Partial Thromboplastin Time 52.7 Seconds (21.0-31.0)
[2019-08-18] MEDS: ISOSORBIDE MONO EXTENDED REL 30 MG TABCR PO SCH (08:10)
[2019-08-18] MEDS: ATORVASTATIN 40 MG TAB PO SCH (08:10)
[2019-08-18] MEDS: CLOPIDOGREL BISULFATE 75 MG TAB PO SCH (08:10)
[2019-08-18] MEDS: PANTOprazole 40 MG TAB PO SCH ×2 (08:11→20:33)
[2019-08-18] MEDS: METOPROLOL TARTRATE 25 MG TAB PO SCH ×2 (08:11→20:32)
[2019-08-18] MEDS ORDERED: INSULIN HUMAN NPH SC SCH ×2 (09:00)
--- NOTE | 2019-08-18 09:31 | Hospitalist Progress Note ---
Date of Service August 18, 2019 Assessment & Plan (1) Hypoxia: 70-year-old female with history of CAD, COPD, diabetes, hypertension, CVA, recurrent pancreatitis, Presenting with shortness of breath. HYPOXIA SECONDARY TO BILATERAL PLEURAL EFFUSION, LIKELY FROM VALVULAR AND DIASTOLIC CHF Currently on Lasix 4 mg IV every 4 hours, monitor diuresis, nephrology on board Started Solu-Medrol 40 mg every 8, nebs every 6 hours for possible component of COPD exacerbation; pulmonary service consulted ATRIAL FIBRILLATION ON RAPID VENTRICULAR RESPONSE Now in sinus rhythm Diltiazem added to metoprolol On heparin drip Jd Edwards consulted ACUTE RENAL FAILURE ON CKD STAGE III Baseline creatinine 1.2-1.4 Creatinine 2.3 today Monitor while on Lasix CAD Continue aspirin, Plavix, metoprolol COPD With exacerbation, management per #1 DIABETES TYPE 2 Pharmacist consulted for glycemic control HYPERTENSION Stable, continue Imdur, metoprolol HISTORY OF CVA Continue aspirin, Plavix atorvastatin DVT prophylaxis Currently on heparin drip Disposition Patient will need PT/OT evaluation Patient normally lives at home with family Subjective ff up for hyxpoxia, pleural effusion, atrial fibrillation seen resting in bed, on 4 L NC, comfortable not in distress states she feels tired denies dyspnea has occasional cough, non productive denies chest pain, palpitations, dizziness, nausea, abdominal pain, bleeding no other symptoms Review of Systems Review of Systems: All systems reviewed & are unremarkable except as noted in HPI & below Physical Exam Physical Exam: General- oriented x 3, not in distress, speaks in sentences with no effort or accessory muscle use Head- atraumatic Eyes- PERRL, EOMI, anicteric ENT- oropharynx clear Neck- supple, no JVD, no adenopathy, no thyromegaly; carotids +2/2, no bruits appreciated Lungs- faint wheeze bilaterally, decreased breath sounds at the bases, no crackles noted Heart- normal rate, regular rhythm; no murmur, no gallop, no rub appreciated Abdomen- normal bowel sounds, nondistended, soft, nontender, no masses or hepatosplenomegaly Extremities- no pretibial edema, no calf tenderness; peripheral pulses intact Neuro- alert, oriented x 3; CN 2-12 grossly intact; motor 5/5 bilaterally;sensation 100% on all extremities; no other gross focal neurologic deficits Skin- warm & dry Results & Data Vital Signs (Past 12 Hours) Vital Signs Temp Pulse Pulse Resp BP BP Pulse Ox 08/18/19 07:09 37.1 C 68 16 117/66 98 08/18/19 07:05 68 18 98 08/18/19 04:03 36.8 C 69 16 118/70 98 08/18/19 00:00 74 08/17/19 23:48 36.8 C 75 16 113/73 97 Laboratory Results Laboratory Results - last 24 hr 08/17/19 08/17/19 08/17/19 13:41 13:45 14:01 WBC RBC Hgb Hct MCV MCH MCHC RDW Std Deviation RDW Coeff of Stormy Plt Count MPV PT INR APTT PTT Ratio ABG pH ABG pCO2 ABG pO2 ABG HCO3 ABG O2 Saturation ABG Base Excess Harshad Test Barometric Pressure Oxygen Given Sodium Potassium Chloride Carbon Dioxide Anion Gap BUN Creatinine Est Cr Clr Drug Dosing Est GFR ( Amer) Est GFR (Non-Af Amer) BUN/Creatinine Ratio Glucose POC Glucose 49 L* 55 L* 62 L* Calcium Magnesium Urine Color Urine Appearance Urine pH Ur Specific [place] Urine Protein Urine Glucose (UA) Urine Ketones Urine Blood Urine Nitrite Urine Bilirubin Urine Urobilinogen Ur Leukocyte Esterase Urine WBC (Auto) Urine RBC (Auto) U Hyaline Cast (Auto) U Epithel Cells (Auto) Urine Bacteria (Auto) Amorphous Sediment Urine Yeast 08/17/19 08/17/19 08/17/19 14:21 14:44 15:06 WBC RBC Hgb Hct MCV MCH MCHC RDW Std Deviation RDW Coeff of Stormy Plt Count MPV PT INR APTT PTT Ratio ABG pH ABG pCO2 ABG pO2 ABG HCO3 ABG O2 Saturation ABG Base Excess Harshad Test Barometric Pressure Oxygen Given Sodium Potassium Chloride Carbon Dioxide Anion Gap BUN Creatinine Est Cr Clr Drug Dosing Est GFR ( Amer) Est GFR (Non-Af Amer) BUN/Creatinine Ratio Glucose POC Glucose 55 L* 64 L* 80 Calcium Magnesium Urine Color Urine Appearance Urine pH Ur Specific [place] Urine Protein Urine Glucose (UA) Urine Ketones Urine Blood Urine Nitrite Urine Bilirubin Urine Urobilinogen Ur Leukocyte Esterase Urine WBC (Auto) Urine RBC (Auto) U Hyaline Cast (Auto) U Epithel Cells (Auto) Urine Bacteria (Auto) Amorphous Sediment Urine Yeast 08/17/19 08/17/19 08/17/19 15:32 16:57 17:20 WBC RBC Hgb Hct MCV MCH MCHC RDW Std Deviation RDW Coeff of Stormy Plt Count MPV PT INR APTT 65.1 H* PTT Ratio 2.4 ABG pH ABG pCO2 ABG pO2 ABG HCO3 ABG O2 Saturation ABG Base Excess Harshad Test Barometric Pressure Oxygen Given Sodium Potassium Chloride Carbon Dioxide Anion Gap BUN Creatinine Est Cr Clr Drug Dosing Est GFR ( Amer) Est GFR (Non-Af Amer) BUN/Creatinine Ratio Glucose POC Glucose 83 103 H Calcium Magnesium Urine Color Urine Appearance Urine pH Ur Specific [place] Urine Protein Urine Glucose (UA) Urine Ketones Urine Blood Urine Nitrite Urine Bilirubin Urine Urobilinogen Ur Leukocyte Esterase Urine WBC (Auto) Urine RBC (Auto) U Hyaline Cast (Auto) U Epithel Cells (Auto) Urine Bacteria (Auto) Amorphous Sediment Urine Yeast 08/17/19 08/17/19 08/18/19 21:03 21:10 00:52 WBC RBC Hgb Hct MCV MCH MCHC RDW Std Deviation RDW Coeff of Stormy Plt Count MPV PT INR APTT PTT Ratio ABG pH ABG pCO2 ABG pO2 ABG HCO3 ABG O2 Saturation ABG Base Excess Harshad Test Barometric Pressure Oxygen Given Sodium Potassium Chloride Carbon Dioxide Anion Gap BUN Creatinine Est Cr Clr Drug Dosing Est GFR ( Amer) Est GFR (Non-Af Amer) BUN/Creatinine Ratio Glucose POC Glucose 143 H 153 H Calcium Magnesium Urine Color Yellow Urine Appearance Turbid A Urine pH 5.0 Ur Specific [place] 1.022 Urine Protein 1+ H Urine Glucose (UA) Negative Urine Ketones Trace H Urine Blood 3+ H Urine Nitrite Negative Urine Bilirubin Negative Urine Urobilinogen Negative Ur Leukocyte Esterase 1+ H Urine WBC (Auto) 1-5 Urine RBC (Auto) 10-30 H U Hyaline Cast (Auto) 1-5 U Epithel Cells (Auto) >30 H Urine Bacteria (Auto) Negative Amorphous Sediment Present A Urine Yeast Not Reportable 08/18/19 08/18/19 08/18/19 03:53 06:03 06:03 WBC 9.94 RBC 3.16 L Hgb 9.3 L Hct 28.4 L MCV 89.9 MCH 29.4 MCHC 32.7 RDW Std Deviation 49.4 H RDW Coeff of Stormy 15.2 H Plt Count 283 MPV 9.3 PT 11.5 INR 1.1 APTT PTT Ratio ABG pH ABG pCO2 ABG pO2 ABG HCO3 ABG O2 Saturation ABG Base Excess Harshad Test Barometric Pressure Oxygen Given Sodium Potassium Chloride Carbon Dioxide Anion Gap BUN Creatinine Est Cr Clr Drug Dosing Est GFR ( Amer) Est GFR (Non-Af Amer) BUN/Creatinine Ratio Glucose POC Glucose 110 H Calcium Magnesium Urine Color Urine Appearance Urine pH Ur Specific [place] Urine Protein Urine Glucose (UA) Urine Ketones Urine Blood Urine Nitrite Urine Bilirubin Urine Urobilinogen Ur Leukocyte Esterase Urine WBC (Auto) Urine RBC (Auto) U Hyaline Cast (Auto) U Epithel Cells (Auto) Urine Bacteria (Auto) Amorphous Sediment Urine Yeast 08/18/19 08/18/19 08/18/19 06:03 06:03 07:25 WBC RBC Hgb Hct MCV MCH MCHC RDW Std Deviation RDW Coeff of Stormy Plt Count MPV PT INR APTT 52.7 H* PTT Ratio 1.9 ABG pH ABG pCO2 ABG pO2 ABG HCO3 ABG O2 Saturation ABG Base Excess Harshad Test Barometric Pressure Oxygen Given Sodium 138 Potassium 4.1 Chloride 105 Carbon Dioxide 26 Anion Gap 7.0 BUN 31 H Creatinine 2.38 H Est Cr Clr Drug Dosing 17.6 Est GFR ( Amer) 21.9 Est GFR (Non-Af Amer) 18.9 BUN/Creatinine Ratio 12.9 Glucose 121 H POC Glucose 118 H Calcium 8.5 Magnesium 2.1 Urine Color Urine Appearance Urine pH Ur Specific [place] Urine Protein Urine Glucose (UA) Urine Ketones Urine Blood Urine Nitrite Urine Bilirubin Urine Urobilinogen Ur Leukocyte Esterase Urine WBC (Auto) Urine RBC (Auto) U Hyaline Cast (Auto) U Epithel Cells (Auto) Urine Bacteria (Auto) Amorphous Sediment Urine Yeast 08/18/19 08/18/19 08/18/19 10:27 11:17 12:47 WBC RBC Hgb Hct MCV MCH MCHC RDW Std Deviation RDW Coeff of Stormy Plt Count MPV PT INR APTT PTT Ratio ABG pH 7.52 H* ABG pCO2 27 L ABG pO2 78 L ABG HCO3 21 ABG O2 Saturation 96.0 H ABG Base Excess -0.7 Harshad Test Pos Barometric Pressure 727.7 Oxygen Given 4 L Sodium Potassium Chloride Carbon Dioxide Anion Gap BUN Creatinine Est Cr Clr Drug Dosing Est GFR ( Amer) Est GFR (Non-Af Amer) BUN/Creatinine Ratio Glucose POC Glucose 196 H 190 H Calcium Magnesium Urine Color Urine Appearance Urine pH Ur Specific [place] Urine Protein Urine Glucose (UA) Urine Ketones Urine Blood Urine Nitrite Urine Bilirubin Urine Urobilinogen Ur Leukocyte Esterase Urine WBC (Auto) Urine RBC (Auto) U Hyaline Cast (Auto) U Epithel Cells (Auto) Urine Bacteria (Auto) Amorphous Sediment Urine Yeast
[2019-08-18] MEDS ORDERED: XOPENEX/ATROVENT 1.25mg/0.5MG NEB COMBO NEB STA (09:58)
[2019-08-18] MEDS ORDERED: methylPREDNISolone 125 MG/2 ML VIAL IV STA (09:59)
[2019-08-18] MEDS ORDERED: LEVALBUTEROL 1.25MG/0.5ML NEB INH STA (10:05)
[2019-08-18] MEDS ORDERED: IPRATROPIUM BROMIDE NEB SOLN 0.02% 2.5 ML VIAL INH STA (10:05)
[2019-08-18] MEDS ORDERED: methylPREDNISolone 125 MG in SYRINGE 0 ML IV STA (10:10)
[2019-08-18] MEDS ORDERED: INSULIN HUMAN NPH SC ONE (10:15)
[2019-08-18] MEDS ORDERED: XOPENEX/ATROVENT 0.63mg/0.5MG NEB COMBO NEB SCH (10:15)
--- NOTE | 2019-08-18 10:25 | XRay Report ---
SINGLE VIEW CHEST CLINICAL HISTORY: Follow-up CHF. FINDINGS: An AP, portable, upright chest radiograph is compared to chest x-ray and chest CT dated 07/25. The examination is degraded by portable technique and patient rotation. A right-sided centra l venous infusion port is in place. The heart is enlarged noting atherosclerotic calcification of the thoracic aorta. There is pulmonary vascular congestion and mild interstitial edema. There are layeri ng pleural effusions with bibasilar consolidation. No pneumothorax is seen. The skeletal structures a re osteopenic. The bony thorax is grossly intact. IMPRESSION: 1. Cardiomegaly with evidence of congestive failure. This is similar to yesterday. 2. Layering pleural effusions with bibasilar consolidation. Electronically signed by: Ramez Blanchard M.D. 08/18/2019 10:23 AM
[2019-08-18 10:47] LABS: Base Excess ABG -0.7 mEq/L (-9-1.8); HCO3 ABG 21 mmol/L (19-24); PCO2 ABG 27 mmHg (35-46); PO2 ABG 78 mm/Hg (80-95)
[2019-08-18 10:51] LABS: Allen Test Pos (Pos)
[2019-08-18 10:52] LABS: pH ABG 7.52 (7.35-7.45)
--- NOTE | 2019-08-18 11:25 | Nephrology Progress Note ---
Date of Service August 18, 2019 Assessment & Plan (1) Acute kidney injury superimposed on CKD: prerenal versus ischemic ATN in the setting of hemodynamic instability from AF w/ RVR now with improved/resolved hypotension and still marked volume OL -approach will be gentle diuresis in hopes of improving renal perfusion -again expect creat to worsen before improvement -ordered UACM for completeness > remarkable mostly for ketones, contaminated specimen -no renal imaging needed at this time -daily bmp -increase diuretics as below (2) Labile blood pressure: had been normotensive yesterday/ prior admissions and w/ relative hypotension now >> gentle diuresis; defer to primary team/cardiology if rate control meds can be scaled back somewhat (3) Diastolic CHF: valvular and diastolic HF w/ marked volume overload on exam as evidenced by pl effusions, hypoxia >> will increase to 20 mg IV lasix q4h -cont <2 gm daily Na diet -no FR for now as her BG have been labile / getting lots of juice but watch for chance to start one Subjective seen on rounds this am at about 0830; c/o extreme fatigue, exhaustion; still sob. slept reasonably well. no pain Review of Systems Review of Systems: All systems reviewed & are unremarkable except as noted in HPI & below Respiratory: + cough (started at beginning of conversation today) and + wheezing Cardiovascular: no palpitations and no edema Physical Exam 2 Constitutional: well developed, + obese, + frail appearing and cooperative severe coughing fit interrupts/ends exam/interview - nonproductive Eyes: EOM intact bilaterally periorbital edema ENMT: Ears: no external ear abnormality Nose: no external nose abnormality Mouth: + dry oral mucous membranes Neck: no nuchal rigidity Respiratory: + labored breathing Auscultation: + breath sounds absent (BL bases), + diminished lung sounds (markedly BL post page) and + wheezes (exp BL) Cardiovascular: RRR, no murmur, no edema Gastrointestinal (Abdomen): Inspection/Auscultation: + abdomen distended and normal bowel sounds Percussion/Palpation: abdomen soft; abdomen nontender Musculoskeletal: Extremities: + abnormal strength (weak w/ exam maneuvers) Skin: no rashes, warm and dry Psychiatric: A+Ox3, euthymic affect Eye Contact: good eye contact Speech: normal rate/rhythm/volume of speech Insight: + limited insight Judgement: + limited judgement Results & Data Vital Signs (Past 12 Hours) Vital Signs Temp Pulse Pulse Pulse Resp BP BP 08/18/19 10:26 82 26 H 08/18/19 09:58 37.2 C 88 24 128/70 08/18/19 08:00 71 08/18/19 07:09 37.1 C 68 16 117/66 08/18/19 07:05 68 18 08/18/19 04:03 36.8 C 69 16 118/70 08/18/19 00:00 74 08/17/19 23:48 36.8 C 75 16 113/73 Pulse Ox 08/18/19 10:26 96 08/18/19 09:58 97 08/18/19 08:00 08/18/19 07:09 98 08/18/19 07:05 98 08/18/19 04:03 98 08/18/19 00:00 08/17/19 23:48 97 Laboratory Results 08/18/19 06:03 08/18/19 06:03
--- NOTE | 2019-08-18 11:36 | Cardiology Progress Note ---
Date of Service August 18, 2019 Assessment & Plan (1) Paroxysmal atrial fibrillation: (2) Acute on chronic diastolic heart failure: (3) Pleural effusion, bilateral: (4) LBBB (left bundle branch block): (5) Aortic stenosis: (6) CAD (coronary artery disease): (7) History of CVA (cerebrovascular accident): (8) COPD (chronic obstructive pulmonary disease): (9) Acute kidney injury superimposed on CKD: Continue to monitor fluid balance and GFR on low-dose diuretic therapy. Appreci ate nephrology input. Attempt to maintain negative fluid balance, however, consider thoracic surgical consultation for thoracentesis if diurectic therapy is inadequate. Continue metoprolol 25 mg twice daily and oral diltiazem with telemetry monitoring given underlying conduction disease (chronic left bundle branch block). Recommend continued heparin bridging to oral anticoagulation with Coumadin. Goal INR 2.0-3.0. Coumadin preferred to DOAC secondary to renal dysfunction. Subjective Patient seen and examined at the bedside. Respiratory status unchanged. Fluid balance negative approximately 900 cc overnight. Creatinine trending upward. Low-dose diuretic therapy added by nephrology yesterday. Chest x-ray and CT of the chest confirmed presence of bilateral pleural effusions which are new compared to most recent hospitalization 07/27/2019. Patient denies chest pain. No recurrent atrial fibrillation overnight. IV heparin infusing. Patient has received first dose of warfarin as well. Review of Systems Review of Systems: All systems reviewed & are unremarkable except as noted in HPI & below Physical Exam Physical Exam: General: NAD, AAO x3, well nourished. Overweight, chronically ill. HEENT: Normocephalic. Atraumatic. Conjunctiva pink, no scleral icterus. Neck: No carotid bruits, the carotid upstrokes are brisk. No JVD. No HJR Heart: Regular normal S-1 and S-2. 2/6 medium pitched systolic ejection murmur heard best at the right second intercostal space without radiation. PMI is not displaced. No RV heave. Lungs: + Bilateral rhonchi and expiratory wheeze. Abdomen: Normal bowel sounds. Soft. Nontender. No masses or organomegaly. No abdominal bruits. Extremities: No clubbing, cyanosis, or edema. Pulses: radial=2/4, Dorsalis pedis =2/4, posterior tibial=2/4. Neuro: Cranial nerves grossly intact. No focal motor deficit. Results & Data Vital Signs (Past 12 Hours) Vital Signs Temp Pulse Pulse Pulse Resp BP BP 08/18/19 11:20 37.7 C H 81 24 125/72 08/18/19 10:26 82 26 H 08/18/19 09:58 37.2 C 88 24 128/70 08/18/19 08:00 71 08/18/19 07:09 37.1 C 68 16 117/66 08/18/19 07:05 68 18 08/18/19 04:03 36.8 C 69 16 118/70 08/18/19 00:00 74 08/17/19 23:48 36.8 C 75 16 113/73 Pulse Ox 08/18/19 11:20 95 08/18/19 10:26 96 08/18/19 09:58 97 08/18/19 08:00 08/18/19 07:09 98 08/18/19 07:05 98 08/18/19 04:03 98 08/18/19 00:00 08/17/19 23:48 97 (1) CAD (coronary artery disease) Associated angina: with unspecified angina Coronary Disease-Associated Artery/Lesion type: [place] artery [place] vs. transplanted heart: [place] heart Qualified Code(s): I25.119 - Atherosclerotic heart disease of [place] coronary artery with unspecified angina pectoris
--- NOTE | 2019-08-18 12:17 | Pharmacy Report ---
Pharmacy Glycemic Short Note 2 - Date of Service August 18, 2019 - Glycemic Short BSG Results (Last 24 hours): 08/17/19 08/17/19 08/17/19 13:41 13:45 14:01 Glucose POC Glucose 49 L* 55 L* 62 L* 08/17/19 08/17/19 08/17/19 14:21 14:44 15:06 Glucose POC Glucose 55 L* 64 L* 80 08/17/19 08/17/19 08/17/19 15:32 16:57 21:03 Glucose POC Glucose 83 103 H 143 H 08/18/19 08/18/19 08/18/19 00:52 03:53 06:03 Glucose 121 H POC Glucose 153 H 110 H 08/18/19 08/18/19 07:25 11:17 Glucose POC Glucose 118 H 196 H Outpatient Anti-diabetic Regimen: * Insulin 70/30 - 55 units qam and 35 units qpm * A1c = 9.5 % (08/17/19) ASSESSMENT: 08/18/19: * BSGs were well-controlled overnight last night with good fasting BSG today. * Steroids were initiated this morning: SoluMedrol 125mg IV x1, then 40mg IV q8h. This is expected to contribute significantly to steroid-induced hyperglycemia. Expect that patient's insulin needs will be significantly higher. * Additional NPH provided this morning at the time of SoluMedrol dose and Novolog parameters also tightened. * Will continue to adjust regimen as needed. 08/17/19 * Patient presented to [facility] ED on 08/16/19 with shortness of breath * In ED, patient found to be in atrial fibrillation with RVR * BSGs significantly elevated on admission (ranging 207-370 mg/dL yesterday) * 50 units of NPH given last night and insulin drip initiated (unclear of when drip was actually stopped last night) * Heparin gtt currently running at 22 mL/hr * Previous admission data shows that patient generally requires less insulin than outpatient regimen (when not receiving steroids) PLAN FOR INPATIENT GLYCEMIC CONTROL: * Holding outpatient 70/30 insulin and will utilize SC basal/bolus with NPH and novolog * Basal insulin * NPH 20 units given this morning plus 20 units with first dose of SoluMedrol * Then, NPH 30 units SQ BID * Bolus insulin - based on data from past admissions with steroid use * NovoLog per scale ACHS or Q6hrs while NPO * Goal Range: Low 110 mg/dL - High 140 mg/dL * Correction Factor: 10 mg/dL/unit * Nutritional / Prandial insulin per carb ratio of 1 unit per 4 grams CHO consumed PLAN FOR DISCHARGE: * Patient's A1c (9.5%) indicates sub-optimal glycemic control. * Outpatient insulin regimen may require adjustment at discharge, particularly if patient will require ongoing steroids. * Please note that the plan above was derived based on current level of insulin resistance and hospital stress. These recommendations are appropriate for inpatient admission only. Plan of care upon discharge will need to be reassessed to avoid potential outpatient hypo/hyperglycemia. Thank you.
[2019-08-18] MEDS: FUROSEMIDE 20 MG in SYRINGE 0 ML IV SCH ×3 (12:27→20:32)
[2019-08-18] MEDS: IPRATROPIUM BROMIDE NEB SOLN 0.02% 2.5 ML VIAL INH SCH ×3 (13:31→19:08)
[2019-08-18] MEDS: LEVALBUTEROL HCL 0.63 MG/3 ML NEB NEB SCH ×3 (13:31→19:08)
[2019-08-18] MEDS: WARFARIN SOD 5 MG TAB PO SCH (15:31)
--- NOTE | 2019-08-18 16:04 | Pulmonology Progress Note ---
Date of Service August 18, 2019 Assessment & Plan (1) Acute kidney injury superimposed on CKD: (2) Anemia: (3) Diastolic CHF: (4) Aortic stenosis: (5) Non-STEMI (non-ST elevated myocardial infarction): (6) CKD (chronic kidney disease), stage III: (7) Pleural effusion due to CHF (congestive heart failure): We will continue to diurese patient. She is receiving aerosolized bronchodilator and IV Solu-Medrol. I will hold her heparin tonight and avoid any additional Coumadin dosing consider diagnostic and repeated thoracentesis in a.m. (8) Pleural effusion, bilateral: Subjective 78-year-old white female with complex medical history with a history of ischemic cardiomyopathy, COPD, lateral pleural effusions with acute on chronic diastolic heart failure. Patient has valvular heart disease with moderate aortic stenosis and mitral regurgitation along with chronic renal disease as well. Patient may not respond well to diuretics without worsening renal insufficiency. I agree with consider thoracentesis both from a diagnostic and therapeutic standpoint if symptoms worsen or she does not respond radiographically and clinically to diuresis. We will hold heparin at midnight and hold on any additional oral anticoagulation to consider thoracentesis within 24 to 48 hours if improvement does not exist. Review of Systems Constitutional: no problem reported Eyes: no problem reported Ear, Nose, Mouth, Throat: no problem reported Respiratory: no problem reported Cardiovascular: no problem reported Gastrointestinal: no problem reported Genitourinary: no problem reported Musculoskeletal: no problem reported Integumentary: no problem reported Neurologic: no problem reported Psychiatric: no problem reported Endocrine: no problem reported Hematologic / Lymphatic: no problem reported Allergy / Immunological: no problem reported Physical Exam Constitutional: well developed and well nourished; no acute distress Eyes: PERRL, conjunctivae normal, anicteric sclerae ENMT: external ear and nose normal, oropharynx normal Neck: trachea midline, no thyromegaly Respiratory: normal respiratory effort and + respiratory distress (Mild respiratory distress with tachypnea) Auscultation: lungs clear to auscultation bilaterally and + diminished lung sounds (Diminished breath sounds bilaterally with dullness to percussion) Cardiovascular: RRR, no murmur, no edema Heart Sounds: + murmur (Grade 2/6 systolic murmur heard in the aortic region with a holosystolic murmur also audible at the apex.) Palpation: normal PMI; no thrill Gastrointestinal (Abdomen): normal bowel sounds, soft, nontender, no hepatosplenomegaly Musculoskeletal: no cyanosis or clubbing, extremities motor strength 5/5 Gait: normal gait Skin: no rashes, warm and dry Neurologic: PERRL, EOMI, accommodation nl, no face palsy, no dysarthria Psychiatric: A+Ox3, euthymic affect Lymphatic: no cervical or axillary lymphadenopathy Results & Data Vital Signs (Past 12 Hours) Vital Signs Temp Pulse Pulse Pulse Resp BP BP 08/18/19 15:38 36.8 C 83 19 108/62 08/18/19 15:00 86 08/18/19 13:33 83 24 08/18/19 11:20 37.7 C H 81 24 125/72 08/18/19 10:26 82 26 H 08/18/19 09:58 37.2 C 88 24 128/70 08/18/19 08:00 71 08/18/19 07:09 37.1 C 68 16 117/66 08/18/19 07:05 68 18 08/18/19 04:03 36.8 C 69 16 118/70 Pulse Ox 08/18/19 15:38 95 08/18/19 15:00 08/18/19 13:33 93 08/18/19 11:20 95 08/18/19 10:26 96 08/18/19 09:58 97 08/18/19 08:00 08/18/19 07:09 98 08/18/19 07:05 98 08/18/19 04:03 98 Laboratory Results Abnormal Labs 08/16/19 08/16/19 08/16/19 13:50 13:50 16:21 WBC 12.12 H RBC 3.47 L Hgb 10.1 L Hct 30.7 L RDW Std Deviation 47.8 H RDW Coeff of Stormy 15.0 H Immature Gran # (Auto) 0.03 H Neut # (Auto) 8.66 H [place] # (Auto) 0.81 H APTT ABG pH ABG pCO2 31 L ABG pO2 96 H ABG O2 Saturation 97.1 H BUN 23 H Creatinine 1.83 H Glucose 365 H* POC Glucose Hemoglobin A1c Calcium 8.2 L AST 13 L Total Protein Albumin 2.7 L Albumin/Globulin Ratio 0.7 L Lipase 56 L Beta-Hydroxybutyric Acd 5.13 H Urine Appearance Urine Protein Urine Ketones Urine Blood Ur Leukocyte Esterase Urine RBC (Auto) U Epithel Cells (Auto) Amorphous Sediment 08/16/19 08/16/19 08/16/19 18:53 18:54 20:40 WBC RBC Hgb Hct RDW Std Deviation RDW Coeff of Stormy Immature Gran # (Auto) Neut # (Auto) [place] # (Auto) APTT ABG pH ABG pCO2 ABG pO2 ABG O2 Saturation BUN Creatinine Glucose POC Glucose 361 H* 370 H* 276 H Hemoglobin A1c Calcium AST Total Protein Albumin Albumin/Globulin Ratio Lipase Beta-Hydroxybutyric Acd Urine Appearance Urine Protein Urine Ketones Urine Blood Ur Leukocyte Esterase Urine RBC (Auto) U Epithel Cells (Auto) Amorphous Sediment 08/16/19 08/16/19 08/16/19 21:34 22:25 23:26 WBC RBC Hgb Hct RDW Std Deviation RDW Coeff of Stormy Immature Gran # (Auto) Neut # (Auto) [place] # (Auto) APTT ABG pH ABG pCO2 ABG pO2 ABG O2 Saturation BUN Creatinine Glucose POC Glucose 245 H 207 H 176 H Hemoglobin A1c Calcium AST Total Protein Albumin Albumin/Globulin Ratio Lipase Beta-Hydroxybutyric Acd Urine Appearance Urine Protein Urine Ketones Urine Blood Ur Leukocyte Esterase Urine RBC (Auto) U Epithel Cells (Auto) Amorphous Sediment 08/17/19 08/17/19 08/17/19 00:33 03:08 03:19 WBC 11.67 H RBC 3.02 L Hgb 9.0 L Hct 26.8 L RDW Std Deviation 48.4 H RDW Coeff of Stormy 15.1 H Immature Gran # (Auto) 0.03 H Neut # (Auto) 8.76 H [place] # (Auto) 0.82 H APTT ABG pH ABG pCO2 ABG pO2 ABG O2 Saturation BUN Creatinine Glucose POC Glucose 116 H 181 H Hemoglobin A1c Calcium AST Total Protein Albumin Albumin/Globulin Ratio Lipase Beta-Hydroxybutyric Acd Urine Appearance Urine Protein Urine Ketones Urine Blood Ur Leukocyte Esterase Urine RBC (Auto) U Epithel Cells (Auto) Amorphous Sediment 08/17/19 08/17/19 08/17/19 03:19 03:19 03:19 WBC RBC Hgb Hct RDW Std Deviation RDW Coeff of Stormy Immature Gran # (Auto) Neut # (Auto) [place] # (Auto) APTT 44.7 H ABG pH ABG pCO2 ABG pO2 ABG O2 Saturation BUN 27 H Creatinine 2.32 H D Glucose 180 H POC Glucose Hemoglobin A1c 9.5 H Calcium 7.9 L AST 12 L Total Protein 6.1 L Albumin 2.5 L Albumin/Globulin Ratio 0.7 L Lipase Beta-Hydroxybutyric Acd Urine Appearance Urine Protein Urine Ketones Urine Blood Ur Leukocyte Esterase Urine RBC (Auto) U Epithel Cells (Auto) Amorphous Sediment 08/17/19 08/17/19 08/17/19 07:23 10:01 13:41 WBC RBC Hgb Hct RDW Std Deviation RDW Coeff of Stormy Immature Gran # (Auto) Neut # (Auto) [place] # (Auto) APTT 90.0 H* ABG pH ABG pCO2 ABG pO2 ABG O2 Saturation BUN Creatinine Glucose POC Glucose 252 H 49 L* Hemoglobin A1c Calcium AST Total Protein Albumin Albumin/Globulin Ratio Lipase Beta-Hydroxybutyric Acd Urine Appearance Urine Protein Urine Ketones Urine Blood Ur Leukocyte Esterase Urine RBC (Auto) U Epithel Cells (Auto) Amorphous Sediment 08/17/19 08/17/19 08/17/19 13:45 14:01 14:21 WBC RBC Hgb Hct RDW Std Deviation RDW Coeff of Stormy Immature Gran # (Auto) Neut # (Auto) [place] # (Auto) APTT ABG pH ABG pCO2 ABG pO2 ABG O2 Saturation BUN Creatinine Glucose POC Glucose 55 L* 62 L* 55 L* Hemoglobin A1c Calcium AST Total Protein Albumin Albumin/Globulin Ratio Lipase Beta-Hydroxybutyric Acd Urine Appearance Urine Protein Urine Ketones Urine Blood Ur Leukocyte Esterase Urine RBC (Auto) U Epithel Cells (Auto) Amorphous Sediment 08/17/19 08/17/19 08/17/19 14:44 16:57 17:20 WBC RBC Hgb Hct RDW Std Deviation RDW Coeff of Stormy Immature Gran # (Auto) Neut # (Auto) [place] # (Auto) APTT 65.1 H* ABG pH ABG pCO2 ABG pO2 ABG O2 Saturation BUN Creatinine Glucose POC Glucose 64 L* 103 H Hemoglobin A1c Calcium AST Total Protein Albumin Albumin/Globulin Ratio Lipase Beta-Hydroxybutyric Acd Urine Appearance Urine Protein Urine Ketones Urine Blood Ur Leukocyte Esterase Urine RBC (Auto) U Epithel Cells (Auto) Amorphous Sediment 0908/17/19 08/18/19 21:03 21:10 00:52 WBC RBC Hgb Hct RDW Std Deviation RDW Coeff of Stormy Immature Gran # (Auto) Neut # (Auto) [place] # (Auto) APTT ABG pH ABG pCO2 ABG pO2 ABG O2 Saturation BUN Creatinine Glucose POC Glucose 143 H 153 H Hemoglobin A1c Calcium AST Total Protein Albumin Albumin/Globulin Ratio Lipase Beta-Hydroxybutyric Acd Urine Appearance Turbid A Urine Protein 1+ H Urine Ketones Trace H Urine Blood 3+ H Ur Leukocyte Esterase 1+ H Urine RBC (Auto) 10-30 H U Epithel Cells (Auto) >30 H Amorphous Sediment Present A 08/18/19 08/18/19 08/18/19 03:53 06:03 06:03 WBC RBC 3.16 L Hgb 9.3 L Hct 28.4 L RDW Std Deviation 49.4 H RDW Coeff of Stormy 15.2 H Immature Gran # (Auto) Neut # (Auto) [place] # (Auto) APTT ABG pH ABG pCO2 ABG pO2 ABG O2 Saturation BUN 31 H Creatinine 2.38 H Glucose 121 H POC Glucose 110 H Hemoglobin A1c Calcium AST Total Protein Albumin Albumin/Globulin Ratio Lipase Beta-Hydroxybutyric Acd Urine Appearance Urine Protein Urine Ketones Urine Blood Ur Leukocyte Esterase Urine RBC (Auto) U Epithel Cells (Auto) Amorphous Sediment 08/18/19 08/18/19 08/18/19 06:03 07:25 10:27 WBC RBC Hgb Hct RDW Std Deviation RDW Coeff of Stormy Immature Gran # (Auto) Neut # (Auto) [place] # (Auto) APTT 52.7 H* ABG pH 7.52 H* ABG pCO2 27 L ABG pO2 78 L ABG O2 Saturation 96.0 H BUN Creatinine Glucose POC Glucose 118 H Hemoglobin A1c Calcium AST Total Protein Albumin Albumin/Globulin Ratio Lipase Beta-Hydroxybutyric Acd Urine Appearance Urine Protein Urine Ketones Urine Blood Ur Leukocyte Esterase Urine RBC (Auto) U Epithel Cells (Auto) Amorphous Sediment 08/18/19 08/18/19 11:17 12:47 WBC RBC Hgb Hct RDW Std Deviation RDW Coeff of Stormy Immature Gran # (Auto) Neut # (Auto) [place] # (Auto) APTT ABG pH ABG pCO2 ABG pO2 ABG O2 Saturation BUN Creatinine Glucose POC Glucose 196 H 190 H Hemoglobin A1c Calcium AST Total Protein Albumin Albumin/Globulin Ratio Lipase Beta-Hydroxybutyric Acd Urine Appearance Urine Protein Urine Ketones Urine Blood Ur Leukocyte Esterase Urine RBC (Auto) U Epithel Cells (Auto) Amorphous Sediment Medications Administered Current Inpatient Medications Acetaminophen (Tylenol) 650 mg PO Q4H PRN PRN Reason: Pain or Fever Stop: 09/15/19 18:17 Al Hydrox/Mg Hydrox/Simethicone (Maalox) 15 ml PO Q4H PRN PRN Reason: Dyspepsia Stop: 09/15/19 18:17 Aspirin (Ecotrin Ectab) 81 mg PO QPM [facility] Stop: 09/15/19 20:59 Last Admin: 08/17/19 21:22 Dose: 81 mg Documented by: Atorvastatin Calcium (Lipitor) 40 mg PO QAM [facility] Stop: 09/16/19 08:59 Last Admin: 08/18/19 08:10 Dose: 40 mg Documented by: Budesonide (Pulmicort Respules) 0.5 mg NEB BIDR [facility] Stop: 09/15/19 18:59 Last Admin: 08/18/19 07:05 Dose: 0.5 mg Documented by: Clopidogrel Bisulfate (Plavix) 75 mg PO QAM [facility] Stop: 09/16/19 08:59 Last Admin: 08/18/19 08:10 Dose: 75 mg Documented by: Dextrose (Dextrose 50%) 25 - 50 ml IV UD PRN; Protocol PRN Reason: Hypoglycemia Protocol Stop: 09/15/19 18:17 Diltiazem HCl (Cardizem) 60 mg PO Q8H [facility] Stop: 09/15/19 19:29 Last Admin: 08/18/19 12:05 Dose: 60 mg Documented by: Gabapentin (Neurontin) 800 mg PO HS [facility] Stop: 09/15/19 20:59 Last Admin: 08/16/19 20:48 Dose: 800 mg Documented by: Glucagon (Glucagen) 1 mg SQ UD PRN; Protocol PRN Reason: Hypoglycemia Protocol Stop: 09/15/19 18:17 Glucose (Glucose 40%) 15 - 30 gm PO UD PRN; Protocol PRN Reason: Hypoglycemia Protocol Stop: 09/15/19 18:17 Glucose (Dex4 Glucose) 4 - 8 tabs PO UD PRN; Protocol PRN Reason: Hypoglycemia Protocol Stop: 09/15/19 18:17 Heparin Sodium (Porcine) (Heparin Sod 100 Unit/Ml Flush) 5 ml FLUSH PRN PRN PRN Reason: Flush Stop: 09/16/19 00:14 Heparin Sodium/Dextrose (Heparin Sodium/Dextrose) 25,000 units in 500 mls @ 20 mls/hr IV .Q24H [facility]; Protocol Stop: 09/15/19 15:44 Last Titration: 08/18/19 07:11 Dose: 1,000 units/hr, 20 mls/hr Documented by: Methylprednisolone 40 mg/ (Syringe) 0.64 mls @ 1.5 mls/min IV Q8H JOHN Stop: 09/17/19 17:59 Furosemide 20 mg/ Syringe 2 mls @ 4 mls/min IV Q4H [facility] Stop: 09/17/19 12:59 Last Admin: 08/18/19 12:27 Dose: 4 mls/min Documented by: Insulin Aspart (Novolog Flexpen) 0 units SC ACHS [facility] Stop: 09/15/19 18:17 Last Admin: 08/18/19 12:28 Dose: 14 units Documented by: Insulin Human NPH (Novolin N Nph) 30 units SC BIDM [facility]; Protocol Stop: 09/17/19 16:59 Ipratropium [place] (Atrovent 0.02% 0.5mg/2.5ml) 0.5 mg INH Q6R [facility] Stop: 09/17/19 10:14 Last Admin: 08/18/19 13:53 Dose: Not Given Documented by: Isosorbide Mononitrate (Imdur Extended Rel) 30 mg PO QAM [facility] Stop: 09/16/19 08:59 Last Admin: 08/18/19 08:10 Dose: 30 mg Documented by: Levalbuterol HCl (Xopenex 0.63 Mg/3 Ml Neb) 0.63 mg NEB Q6R [facility] Stop: 09/17/19 10:14 Last Admin: 08/18/19 13:53 Dose: Not Given Documented by: Lorazepam (Ativan) 0.5 mg PO Q6 PRN PRN Reason: Anxiety Stop: 09/15/19 18:17 Magnesium Hydroxide (Milk Of Magnesia) 30 ml PO Q12H PRN PRN Reason: Constipation Stop: 09/15/19 18:17 Magnesium Oxide (Mag-Ox) 400 mg PO QPM [facility] Stop: 09/15/19 20:59 Last Admin: 08/17/19 21:23 Dose: 400 mg Documented by: Metoprolol Tartrate (Lopressor) 25 mg PO BID JOHN Stop: 09/15/19 20:59 Last Admin: 08/18/19 08:11 Dose: 25 mg Documented by: Mirtazapine (Remeron Solutab) 45 mg PO [facility] Stop: 09/15/19 20:59 Last Admin: 08/16/19 20:49 Dose: 45 mg Documented by: Karelycellaneous (Carbohydrates For Hypoglycemia) 15 - 30 gm PO UD PRN PRN Reason: Hypoglycemia Treatment Stop: 09/15/19 18:17 Last Admin: 08/17/19 14:50 Dose: 30 gm Documented by: Ruba Information (Consult Glycemic Management Pharmacy) 1 ea N/A UD PRN; Protocol PRN Reason: Consult Stop: 09/15/19 18:37 Montelukast Sodium (Singulair) 10 mg PO [facility] Stop: 09/15/19 20:59 Last Admin: 08/17/19 21:23 Dose: 10 mg Documented by: Ondansetron HCl (Zofran) 4 mg IV Q6H PRN PRN Reason: Nausea Stop: 09/15/19 18:17 Pantoprazole Sodium (Protonix) 40 mg PO BID [facility] Stop: 09/15/19 20:59 Last Admin: 08/18/19 08:11 Dose: 40 mg Documented by: Polyethylene Glycol (Miralax Powder Packet) 17 gm PO DAILY PRN PRN Reason: Constipation Stop: 09/15/19 18:17 Ropinirole HCl (Requip) 1 mg PO [facility] Stop: 09/15/19 20:59 Last Admin: 08/16/19 20:49 Dose: 1 mg Documented by: Trazodone HCl (Desyrel) 50 mg PO [facility] Stop: 09/15/19 20:59 Last Admin: 08/17/19 21:22 Dose: 50 mg Documented by: Warfarin Sodium (Coumadin) 5 mg PO DAILY@1600 [facility] Stop: 09/16/19 15:59 Last Admin: 08/18/19 15:31 Dose: Not Given Documented by: PG Care Time/CCT Total # of Minutes Spent Total Time Spent with Patient: Total time spent is greater than 50% in coordination of care (as documented) at patient's floor/unit and/or counseling patient:
[2019-08-18] MEDS: INSULIN HUMAN NPH SC SCH (18:03)
[2019-08-18] MEDS: methylPREDNISolone 40 MG in SYRINGE 0 ML IV SCH (18:16)
[2019-08-18] MEDS: HEPARIN SODIUM/DEXTROSE 25,000 UNITS/500 ML BAG IV SCH (20:32)
[2019-08-18] MEDS: MAGNESIUM OXIDE 400 MG TAB PO SCH (20:33)
[2019-08-18] MEDS: MONTELUKAST SODIUM 10 MG TABLET PO SCH (20:34)
[2019-08-18] MEDS: TRAZODONE HCL 50 MG TAB PO SCH (20:34)
[2019-08-18] MEDS: ASPIRIN 81 MG ECTAB PO SCH (20:34)
[2019-08-19] MEDS: LEVALBUTEROL HCL 0.63 MG/3 ML NEB NEB SCH ×4 (00:54→19:25)
[2019-08-19] MEDS: IPRATROPIUM BROMIDE NEB SOLN 0.02% 2.5 ML VIAL INH SCH ×4 (00:54→19:25)
[2019-08-19] MEDS: FUROSEMIDE 20 MG in SYRINGE 0 ML IV SCH ×6 (02:13→20:06)
[2019-08-19] MEDS: dilTIAZem HCl 60 MG TAB PO SCH ×3 (02:13→20:09)
[2019-08-19] MEDS: methylPREDNISolone 40 MG in SYRINGE 0 ML IV SCH ×2 (02:13→11:16)
[2019-08-19 05:57] LABS: INR 1.2 (0.9-1.1); Prothrombin Time 11.7 Seconds (9.0-12.0)
[2019-08-19] MEDS: BUDESONIDE 0.5 MG/2 ML VIAL (PULMICORT) NEB SCH ×2 (07:03→19:25)
--- NOTE | 2019-08-19 07:28 | XRay Report ---
XR chest 1V portable HISTORY: 78 years-old Female pl effusions follow-up study in a patient with bilateral pleural effusi ons COMPARISON: Chest radiograph 08/18/2019 TECHNIQUE: Portable AP view of the chest FINDINGS: Stable positioning of right IJ [id number] catheter. Calcified plaque of the thoracic aortic arch. Mitral annular calcifications. Unchanged pulmonary edema without pneumothorax. Stable pleural effusio ns with bibasilar consolidative opacities. Degenerative changes of the shoulders and spine. IMPRESSION: 1. Cardiomegaly with unchanged pulmonary edema. 2. No significant change of the bilateral pleural effusions with bibasilar consolidative opacities. The above report was generated using voice recognition software. It may contain grammatical, syntax o r spelling errors. Electronically signed by: Rob Juarez M.D. 08/19/2019 7:27 AM
--- NOTE | 2019-08-19 08:02 | Ultrasound Report ---
US effusion-chest/mediastinum HISTORY: 78 years-old Female bilat pleural effusions please reji and quantitate bilateral pleural ef fusions COMPARISON: Chest radiograph 08/19/2019 TECHNIQUE: Multiple real-time sonographic images of the chest were obtained assessing grayscale appea sunshine FINDINGS: Right-sided pleural effusion is noted with 210 mL fluid. Consolidation of the right lung base adjacen t to the pleural fluid without a large window. Left pleural effusion is noted with 204 mL. Consolidat ion of the left lung base also noted adjacent to the pleural fluid without a large window. Neither si de was marked. IMPRESSION: Bilateral pleural effusions as above. The above report was generated using voice recognition software. It may contain grammatical, syntax o r spelling errors. Electronically signed by: Rob Juarez M.D. 08/19/2019 8:01 AM
[2019-08-19] MEDS: INSULIN ASPART 100 UNITS/ML 3 ML PEN SC SCH ×4 (08:32→20:07)
[2019-08-19] MEDS: INSULIN HUMAN NPH SC SCH ×2 (08:33→17:18)
[2019-08-19] MEDS: ISOSORBIDE MONO EXTENDED REL 30 MG TABCR PO SCH (08:35)
[2019-08-19] MEDS: METOPROLOL TARTRATE 25 MG TAB PO SCH ×2 (08:35→20:09)
[2019-08-19] MEDS: PANTOprazole 40 MG TAB PO SCH ×2 (08:36→20:09)
[2019-08-19] MEDS: ATORVASTATIN 40 MG TAB PO SCH (08:37)
--- NOTE | 2019-08-19 08:37 | Nephrology Progress Note ---
Date of Service August 19, 2019 Assessment & Plan (1) Acute kidney injury superimposed on CKD: prerenal versus ischemic ATN in the setting of hemodynamic instability from AF w/ RVR now with improved/resolved hypotension and still marked volume OL. UACM remarkable mostly for ketones, contaminated specimen; suspect blood protein from contamination/dickinson -continue gentle diuresis in hopes of improving renal perfusion >> lasix intensified yesterday to 20 mg IV q4h -await labs from today -no renal imaging needed at this time -daily bmp -cont current diuretics pending labs (2) Labile blood pressure: improving past 24 hrs >> will look to intensify diuretics once labs post -had been normotensive yesterday/ prior admissions and w/ relative hypotension now ->>>defer to primary team/cardiology if rate control meds can be scaled back somewhat to allow for more aggressive diuresis (3) Diastolic CHF: valvular and diastolic HF w/ marked volume overload on exam as evidenced by pl effusions, hypoxia >> yesterday increased to 20 mg IV lasix q4h -cont <2 gm daily Na diet -cont 1.5L FR (4) Pleural effusion, bilateral: pulmonary will ultimately decide about thoracentesis > not likely at least for therapeutic procedure if any -look to intensify diuretics if labs ok Present on Admission?: Yes Subjective for possible thoracentesis today or tomorrow; heparin off currently; had u/s this am; pt c/o posterior R T spine back pain, some inspiratory; ongoing poor sleep; ongoing fatigue. edema improved/resolved; denies abd pain or diarrhea Review of Systems Review of Systems: All systems reviewed & are unremarkable except as noted in HPI & below Constitutional: as per Subjective / HPI Respiratory: as per Subjective / HPI Cardiovascular: + orthopnea Physical Exam Constitutional: well developed, + obese, + frail appearing and cooperative sitting on side of bed on 02NC Eyes: EOM intact bilaterally periorbital edema ENMT: Ears: no external ear abnormality Nose: no external nose abnormality Mouth: + dry oral mucous membranes Neck: no nuchal rigidity Respiratory: + labored breathing Auscultation: + breath sounds absent (BL bases) and + diminished lung sounds (markedly BL post page) Cardiovascular: RRR, no murmur, no edema Gastrointestinal (Abdomen): Inspection/Auscultation: + abdomen distended and normal bowel sounds Percussion/Palpation: abdomen soft; abdomen nontender Musculoskeletal: Extremities: + abnormal strength (generalized weakness) Skin: no rashes, warm and dry Neurologic: [place], fluent speech, no tremor Psychiatric: A+Ox3, euthymic affect Eye Contact: good eye contact Speech: normal rate/rhythm/volume of speech Insight: + limited insight Judgement: + limited judgement Results & Data Vital Signs (Past 12 Hours) Vital Signs Temp Pulse Pulse Resp BP BP Pulse Ox 08/19/19 07:21 36.8 C 81 20 112/65 95 08/19/19 07:03 76 20 92 08/19/19 02:23 67 08/19/19 02:13 69 22 108/69 96 08/19/19 00:54 67 16 98 08/18/19 23:58 37.0 C 69 16 106/69 97 08/18/19 22:52 36.7 C 67 22 95/56 L 97 Laboratory Results 08/18/19 06:03 08/18/19 06:03 Diagnostic Findings Thoracic u/s > BL pl effusions each about 200 mL neither w/ large window
[2019-08-19] MEDS: CLOPIDOGREL BISULFATE 75 MG TAB PO SCH (08:40)
[2019-08-19] MEDS ORDERED: INSULIN HUMAN NPH SC ONE (08:45)
[2019-08-19 09:28] LABS: BUN Creatinine Ratio 17.7 (10-20); Calcium 8.8 mg/dl (8.5-10.1); Creatinine Clr Calc Pharmacy 17.3 ml/min; Est GFR (African American) 21.5; Est GFR (Non-African American) 18.5
--- NOTE | 2019-08-19 10:13 | Cardiology Progress Note ---
Date of Service August 19, 2019 Assessment & Plan (1) Paroxysmal atrial fibrillation: (2) Acute on chronic diastolic heart failure: (3) Pleural effusion, bilateral: (4) LBBB (left bundle branch block): (5) Aortic stenosis: (6) CAD (coronary artery disease): (7) History of CVA (cerebrovascular accident): (8) COPD (chronic obstructive pulmonary disease): (9) Acute kidney injury superimposed on CKD: Restart intravenous heparin as bridging therapy at this time. Continue Coumadin for goal INR of 2.0-3.0. No evidence of recurrent atrial fibrillation overnight. Continue beta-aaliyah plus diltiazem as previously ordered. Aspirin may be discontinued when INR is therapeutic. Patient will continue Plavix plus Coumadin long-term. She must continue Plavix at this time due to recent coronary intervention (GAETANO x2, Lcx LPL sajan RCA, 01/2019 in setting of NSTEMI). Continue diuretic therapy per direction of nephrology with repeat basic metabolic panel in a.m. Subjective Patient seen and examined at the bedside. Respiratory status improved over the past 24 hours. Chest ultrasound performed today demonstrating bilateral effusions with approximately 200 cc of volume B/L. Fluid balance negative approximately 1600 cc over the past 24 hours. Patient notes pleuritic right- sided chest discomfort. No recurrent atrial fibrillation on telemetry. She denies orthopnea or paroxysmal nocturnal dyspnea. IV heparin and Coumadin pl aced on hold in anticipation of possible thoracentesis, however, this seems unlikely given chest ultrasound results today. Review of Systems Review of Systems: All systems reviewed & are unremarkable except as noted in HPI & below Physical Exam Physical Exam: General: NAD, AAO x3, well nourished. Chronically ill. HEENT: Normocephalic. Atraumatic. Conjunctiva pink, no scleral icterus. Neck: No carotid bruits, the carotid upstrokes are brisk. No JVD. No HJR Heart: Regular normal S-1 and S-2. 2-3/6Low pitched mid peaking systolic ejection murmur heard best at the right second intercostal space. PMI is not displaced. No RV heave. Lungs: Diminished breath sounds at the bases bilaterally. Scattered rhonchi. No expiratory wheezing. Abdomen: Normal bowel sounds. Soft. Nontender. No masses or organomegaly. No abdominal bruits. Extremities: No clubbing, cyanosis, or edema. Pulses: radial=2/4, Dorsalis pedis =2/4, posterior tibial=2/4. Neuro: Cranial nerves grossly intact. No focal motor deficit. Results & Data Vital Signs (Past 12 Hours) Vital Signs Temp Pulse Pulse Resp BP BP Pulse Ox 08/19/19 07:21 36.8 C 81 20 112/65 95 08/19/19 07:03 76 20 92 08/19/19 02:23 67 08/19/19 02:13 69 22 108/69 96 08/19/19 00:54 67 16 98 08/18/19 23:58 37.0 C 69 16 106/69 97 08/18/19 22:52 36.7 C 67 22 95/56 L 97 Laboratory Results Laboratory Results - last 24 hr 08/18/19 08/18/19 08/18/19 10:27 11:17 12:47 PT INR ABG pH 7.52 H* ABG pCO2 27 L ABG pO2 78 L ABG HCO3 21 ABG O2 Saturation 96.0 H ABG Base Excess -0.7 Harshad Test Pos Barometric Pressure 727.7 Oxygen Given 4 L Sodium Potassium Chloride Carbon Dioxide Anion Gap BUN Creatinine Est Cr Clr Drug Dosing Est GFR ( Amer) Est GFR (Non-Af Amer) BUN/Creatinine Ratio Glucose POC Glucose 196 H 190 H Calcium 08/18/19 08/18/19 08/19/19 16:26 20:27 05:35 PT INR ABG pH ABG pCO2 ABG pO2 ABG HCO3 ABG O2 Saturation ABG Base Excess Harshad Test Barometric Pressure Oxygen Given Sodium 139 Potassium 4.0 Chloride 105 Carbon Dioxide 26 Anion Gap 8.0 BUN 43 H Creatinine 2.42 H Est Cr Clr Drug Dosing 17.3 Est GFR ( Amer) 21.5 Est GFR (Non-Af Amer) 18.5 BUN/Creatinine Ratio 17.7 Glucose 221 H POC Glucose 178 H 273 H Calcium 8.8 08/19/19 08/19/19 05:36 07:20 PT 11.7 INR 1.2 H ABG pH ABG pCO2 ABG pO2 ABG HCO3 ABG O2 Saturation ABG Base Excess Harshad Test Barometric Pressure Oxygen Given Sodium Potassium Chloride Carbon Dioxide Anion Gap BUN Creatinine Est Cr Clr Drug Dosing Est GFR ( Amer) Est GFR (Non-Af Amer) BUN/Creatinine Ratio Glucose POC Glucose 276 H Calcium (1) CAD (coronary artery disease) Associated angina: with unspecified angina Coronary Disease-Associated Artery/Lesion type: algaaciq artery [place] vs. transplanted heart: algaaciq heart Qualified Code(s): I25.119 - Atherosclerotic heart disease of [place]q coronary artery with unspecified angina pectoris
--- NOTE | 2019-08-19 11:09 | Pharmacy Report ---
Pharmacy Glycemic Short Note 2 - Date of Service August 19, 2019 - Glycemic Short BSG Results (Last 24 hours): 08/18/19 08/18/19 08/18/19 11:17 12:47 16:26 Glucose POC Glucose 196 H 190 H 178 H 08/18/19 08/19/19 08/19/19 20:27 05:35 07:20 Glucose 221 H POC Glucose 273 H 276 H Outpatient Anti-diabetic Regimen: * Insulin 70/30 - 55 units qam and 35 units qpm * A1c = 9.5 % (08/17/19) ASSESSMENT: 08/19/19: * BSGs have been consistently elevated since starting IV SoluMedrol, despite changes to insulin regimen yesterday. * Fasting BSG was 276 mg/dL this morning. * Patient given a supplemental dose of NPH this morning. Novolog parameters tightened after breakfast. * Will add 00 and 04 accu-checks with coverage to provide more continuous coverage overnight. If patient remains significantly hyperglycemic, she may require IV insulin while on high-dose steroids. 08/18/19 * BSGs were well-controlled overnight last night with good fasting BSG today. * Steroids were initiated this morning: SoluMedrol 125mg IV x1, then 40mg IV q8h. This is expected to contribute significantly to steroid-induced hyperglycemia. Expect that patient's insulin needs will be significantly higher. * Additional NPH provided this morning at the time of SoluMedrol dose and Novolog parameters also tightened. * Will continue to adjust regimen as needed. 08/17/19 * Patient presented to [facility] ED on 08/16/19 with shortness of breath * In ED, patient found to be in atrial fibrillation with RVR * BSGs significantly elevated on admission (ranging 207-370 mg/dL yesterday) * 50 units of NPH given last night and insulin drip initiated (unclear of when drip was actually stopped last night) * Heparin gtt currently running at 22 mL/hr * Previous admission data shows that patient generally requires less insulin than outpatient regimen (when not receiving steroids) PLAN FOR INPATIENT GLYCEMIC CONTROL: * Holding outpatient 70/30 insulin and will utilize SC basal/bolus with NPH and novolog * Basal insulin * NPH 30 units given this morning plus 20 units d/t fasting BSG >250mg/dL * Then, 30 units this evening * Will re-evaluate dose tomorrow morning * Bolus insulin - further tightened this morning, based on data from past admissions with steroid use * NovoLog per scale ACHS or Q6hrs while NPO * Goal Range: Low 110 mg/dL - High 140 mg/dL * Correction Factor: 8 mg/dL/unit * Nutritional / Prandial insulin per carb ratio of 1 unit per 3 grams CHO consumed PLAN FOR DISCHARGE: * Patient's A1c (9.5%) indicates sub-optimal glycemic control. * Outpatient insulin regimen may require adjustment at discharge, particularly if patient will require ongoing steroids. * Please note that the plan above was derived based on current level of insulin resistance and hospital stress. These recommendations are appropriate for inpatient admission only. Plan of care upon discharge will need to be reassessed to avoid potential outpatient hypo/hyperglycemia. Thank you.
[2019-08-19] MEDS: HEPARIN 100 UNIT/ML 5ML FLUSH FLUSH PRN (11:39)
[2019-08-19 12:41] LABS: Partial Thromboplastin Time 53.9 Seconds (21.0-31.0)
[2019-08-19] MEDS ORDERED: Heparin IV Standard *NO* Bolus IV SCH (12:50)
[2019-08-19] MEDS ORDERED: HEPARIN SODIUM/DEXTROSE 25,000 UNITS/500 ML BAG IV SCH (13:00)
--- NOTE | 2019-08-19 13:17 | Pulmonology Progress Note ---
Date of Service August 19, 2019 Assessment & Plan (1) Pleural effusion due to CHF (congestive heart failure): I think clinically patient seems improved. He is less dyspneic and less bronchospastic and the effusions are not overly impressive by ultrasound. I would continue diuresis and decrease her steroid dosage. Heparin has been restarted and I would continue with full anticoagulation. The pleuritic pain component appears to be less and suspect the pain is more musculoskeletal in origin. (2) Acute respiratory failure with hypoxia: (3) Acute on chronic diastolic heart failure: (4) Pleural effusion, bilateral: (5) Paroxysmal atrial fibrillation: (6) CKD (chronic kidney disease): (7) DUANE (obstructive sleep apnea): Subjective Fluid balance is negative of about 1600 cc over the past 24 hours in the right sided pleuritic discomfort seems less in my opinion. I spoke with and Dr. Saha and we will restart the IV heparin continue oral anticoagulation and hold on thoracentesis at this point in time. 78-year-old white female with complex medical history seems improved today with less dyspnea less chest congestion. IV heparin and for that matter Coumadin was put on hold for possible thoracentesis today. Ultrasound of both pleural spaces show 200 cc or less once again patient feels somewhat better. Her only complaint is pain in the lower back that appears to be below the chest area. She has had lower back pain in the past. Her cough is nonproductive and less symptomatic today. Review of Systems Constitutional: no problem reported Eyes: no problem reported Ear, Nose, Mouth, Throat: no problem reported Respiratory: no problem reported Cardiovascular: no problem reported Gastrointestinal: no problem reported Genitourinary: no problem reported Musculoskeletal: no problem reported Integumentary: no problem reported Neurologic: no problem reported Psychiatric: no problem reported Endocrine: no problem reported Hematologic / Lymphatic: no problem reported Allergy / Immunological: no problem reported Physical Exam Constitutional: well developed and well nourished; no acute distress Eyes: PERRL, conjunctivae normal, anicteric sclerae ENMT: external ear and nose normal, oropharynx normal Neck: trachea midline, no thyromegaly Respiratory: normal respiratory effort Auscultation: lungs clear to auscultation bilaterally and + diminished lung sounds (Diminished breath sounds bilaterally with dullness to percussion wheezing less ) Cardiovascular: RRR, no murmur, no edema Rate/Rhythm: regular rhythm Heart Sounds: + murmur (Grade 2/6 crescendo decrescendo murmur heard in the second right intercostal space no S) Palpation: normal PMI; no thrill Gastrointestinal (Abdomen): normal bowel sounds, soft, nontender, no hepatosplenomegaly Musculoskeletal: no cyanosis or clubbing, extremities motor strength 5/5 Gait: normal gait Skin: no rashes, warm and dry Neurologic: PERRL, EOMI, accommodation nl, no face palsy, no dysarthria Psychiatric: A+Ox3, euthymic affect Lymphatic: no cervical or axillary lymphadenopathy Results & Data Vital Signs (Past 12 Hours) Vital Signs Temp Pulse Pulse Resp BP BP Pulse Ox 08/19/19 13:05 63 16 100 08/19/19 11:21 36.5 C 75 16 108/63 100 08/19/19 08:00 74 08/19/19 07:21 36.8 C 81 20 112/65 95 08/19/19 07:03 76 20 92 08/19/19 02:23 67 08/19/19 02:13 69 22 108/69 96 Laboratory Results Abnormal Labs 08/16/19 08/16/19 08/16/19 13:50 13:50 16:21 WBC 12.12 H RBC 3.47 L Hgb 10.1 L Hct 30.7 L RDW Std Deviation 47.8 H RDW Coeff of Sotrmy 15.0 H Immature Gran # (Auto) 0.03 H Neut # (Auto) 8.66 H Hart # (Auto) 0.81 H INR APTT ABG pH ABG pCO2 31 L ABG pO2 96 H ABG O2 Saturation 97.1 H BUN 23 H Creatinine 1.83 H Glucose 365 H* POC Glucose Hemoglobin A1c Calcium 8.2 L AST 13 L Total Protein Albumin 2.7 L Albumin/Globulin Ratio 0.7 L Lipase 56 L Beta-Hydroxybutyric Acd 5.13 H Urine Appearance Urine Protein Urine Ketones Urine Blood Ur Leukocyte Esterase Urine RBC (Auto) U Epithel Cells (Auto) Amorphous Sediment 08/16/19 08/16/19 08/16/19 18:53 18:54 20:40 WBC RBC Hgb Hct RDW Std Deviation RDW Coeff of Stormy Immature Gran # (Auto) Neut # (Auto) Hart # (Auto) INR APTT ABG pH ABG pCO2 ABG pO2 ABG O2 Saturation BUN Creatinine Glucose POC Glucose 361 H* 370 H* 276 H Hemoglobin A1c Calcium AST Total Protein Albumin Albumin/Globulin Ratio Lipase Beta-Hydroxybutyric Acd Urine Appearance Urine Protein Urine Ketones Urine Blood Ur Leukocyte Esterase Urine RBC (Auto) U Epithel Cells (Auto) Amorphous Sediment 08/16/19 08/16/19 08/16/19 21:34 22:25 23:26 WBC RBC Hgb Hct RDW Std Deviation RDW Coeff of Stormy Immature Gran # (Auto) Neut # (Auto) Hart # (Auto) INR APTT ABG pH ABG pCO2 ABG pO2 ABG O2 Saturation BUN Creatinine Glucose POC Glucose 245 H 207 H 176 H Hemoglobin A1c Calcium AST Total Protein Albumin Albumin/Globulin Ratio Lipase Beta-Hydroxybutyric Acd Urine Appearance Urine Protein Urine Ketones Urine Blood Ur Leukocyte Esterase Urine RBC (Auto) U Epithel Cells (Auto) Amorphous Sediment 08/17/19 08/17/19 08/17/19 00:33 03:08 03:19 WBC 11.67 H RBC 3.02 L Hgb 9.0 L Hct 26.8 L RDW Std Deviation 48.4 H RDW Coeff of Stormy 15.1 H Immature Gran # (Auto) 0.03 H Neut # (Auto) 8.76 H Hart # (Auto) 0.82 H INR APTT ABG pH ABG pCO2 ABG pO2 ABG O2 Saturation BUN Creatinine Glucose POC Glucose 116 H 181 H Hemoglobin A1c Calcium AST Total Protein Albumin Albumin/Globulin Ratio Lipase Beta-Hydroxybutyric Acd Urine Appearance Urine Protein Urine Ketones Urine Blood Ur Leukocyte Esterase Urine RBC (Auto) U Epithel Cells (Auto) Amorphous Sediment 08/17/19 08/17/19 08/17/19 03:19 03:19 03:19 WBC RBC Hgb Hct RDW Std Deviation RDW Coeff of Stormy Immature Gran # (Auto) Neut # (Auto) Hart # (Auto) INR APTT 44.7 H ABG pH ABG pCO2 ABG pO2 ABG O2 Saturation BUN 27 H Creatinine 2.32 H D Glucose 180 H POC Glucose Hemoglobin A1c 9.5 H Calcium 7.9 L AST 12 L Total Protein 6.1 L Albumin 2.5 L Albumin/Globulin Ratio 0.7 L Lipase Beta-Hydroxybutyric Acd Urine Appearance Urine Protein Urine Ketones Urine Blood Ur Leukocyte Esterase Urine RBC (Auto) U Epithel Cells (Auto) Amorphous Sediment 08/17/19 08/17/19 08/17/19 07:23 10:01 13:41 WBC RBC Hgb Hct RDW Std Deviation RDW Coeff of Stormy Immature Gran # (Auto) Neut # (Auto) Hart # (Auto) INR APTT 90.0 H* ABG pH ABG pCO2 ABG pO2 ABG O2 Saturation BUN Creatinine Glucose POC Glucose 252 H 49 L* Hemoglobin A1c Calcium AST Total Protein Albumin Albumin/Globulin Ratio Lipase Beta-Hydroxybutyric Acd Urine Appearance Urine Protein Urine Ketones Urine Blood Ur Leukocyte Esterase Urine RBC (Auto) U Epithel Cells (Auto) Amorphous Sediment 08/17/19 08/17/19 08/17/19 13:45 14:01 14:21 WBC RBC Hgb Hct RDW Std Deviation RDW Coeff of Stormy Immature Gran # (Auto) Neut # (Auto) Hart # (Auto) INR APTT ABG pH ABG pCO2 ABG pO2 ABG O2 Saturation BUN Creatinine Glucose POC Glucose 55 L* 62 L* 55 L* Hemoglobin A1c Calcium AST Total Protein Albumin Albumin/Globulin Ratio Lipase Beta-Hydroxybutyric Acd Urine Appearance Urine Protein Urine Ketones Urine Blood Ur Leukocyte Esterase Urine RBC (Auto) U Epithel Cells (Auto) Amorphous Sediment 08/17/19 08/17/19 08/17/19 14:44 16:57 17:20 WBC RBC Hgb Hct RDW Std Deviation RDW Coeff of Stormy Immature Gran # (Auto) Neut # (Auto) Hart # (Auto) INR APTT 65.1 H* ABG pH ABG pCO2 ABG pO2 ABG O2 Saturation BUN Creatinine Glucose POC Glucose 64 L* 103 H Hemoglobin A1c Calcium AST Total Protein Albumin Albumin/Globulin Ratio Lipase Beta-Hydroxybutyric Acd Urine Appearance Urine Protein Urine Ketones Urine Blood Ur Leukocyte Esterase Urine RBC (Auto) U Epithel Cells (Auto) Amorphous Sediment 08/17/19 08/17/19 08/18/19 21:03 21:10 00:52 WBC RBC Hgb Hct RDW Std Deviation RDW Coeff of Stormy Immature Gran # (Auto) Neut # (Auto) Hart # (Auto) INR APTT ABG pH ABG pCO2 ABG pO2 ABG O2 Saturation BUN Creatinine Glucose POC Glucose 143 H 153 H Hemoglobin A1c Calcium AST Total Protein Albumin Albumin/Globulin Ratio Lipase Beta-Hydroxybutyric Acd Urine Appearance Turbid A Urine Protein 1+ H Urine Ketones Trace H Urine Blood 3+ H Ur Leukocyte Esterase 1+ H Urine RBC (Auto) 10-30 H U Epithel Cells (Auto) >30 H Amorphous Sediment Present A 08/18/19 08/18/19 08/18/19 03:53 06:03 06:03 WBC RBC 3.16 L Hgb 9.3 L Hct 28.4 L RDW Std Deviation 49.4 H RDW Coeff of Stormy 15.2 H Immature Gran # (Auto) Neut # (Auto) Hart # (Auto) INR APTT ABG pH ABG pCO2 ABG pO2 ABG O2 Saturation BUN 31 H Creatinine 2.38 H Glucose 121 H POC Glucose 110 H Hemoglobin A1c Calcium AST Total Protein Albumin Albumin/Globulin Ratio Lipase Beta-Hydroxybutyric Acd Urine Appearance Urine Protein Urine Ketones Urine Blood Ur Leukocyte Esterase Urine RBC (Auto) U Epithel Cells (Auto) Amorphous Sediment 08/18/19 08/18/19 08/18/19 06:03 07:25 10:27 WBC RBC Hgb Hct RDW Std Deviation RDW Coeff of Stormy Immature Gran # (Auto) Neut # (Auto) Hart # (Auto) INR APTT 52.7 H* ABG pH 7.52 H* ABG pCO2 27 L ABG pO2 78 L ABG O2 Saturation 96.0 H BUN Creatinine Glucose POC Glucose 118 H Hemoglobin A1c Calcium AST Total Protein Albumin Albumin/Globulin Ratio Lipase Beta-Hydroxybutyric Acd Urine Appearance Urine Protein Urine Ketones Urine Blood Ur Leukocyte Esterase Urine RBC (Auto) U Epithel Cells (Auto) Amorphous Sediment 08/18/19 08/18/19 08/18/19 11:17 12:47 16:26 WBC RBC Hgb Hct RDW Std Deviation RDW Coeff of Stormy Immature Gran # (Auto) Neut # (Auto) Hart # (Auto) INR APTT ABG pH ABG pCO2 ABG pO2 ABG O2 Saturation BUN Creatinine Glucose POC Glucose 196 H 190 H 178 H Hemoglobin A1c Calcium AST Total Protein Albumin Albumin/Globulin Ratio Lipase Beta-Hydroxybutyric Acd Urine Appearance Urine Protein Urine Ketones Urine Blood Ur Leukocyte Esterase Urine RBC (Auto) U Epithel Cells (Auto) Amorphous Sediment 08/18/19 08/19/19 08/19/19 20:27 05:35 05:36 WBC RBC Hgb Hct RDW Std Deviation RDW Coeff of Stormy Immature Gran # (Auto) Neut # (Auto) Hart # (Auto) INR 1.2 H APTT ABG pH ABG pCO2 ABG pO2 ABG O2 Saturation BUN 43 H Creatinine 2.42 H Glucose 221 H POC Glucose 273 H Hemoglobin A1c Calcium AST Total Protein Albumin Albumin/Globulin Ratio Lipase Beta-Hydroxybutyric Acd Urine Appearance Urine Protein Urine Ketones Urine Blood Ur Leukocyte Esterase Urine RBC (Auto) U Epithel Cells (Auto) Amorphous Sediment 08/19/19 08/19/19 08/19/19 07:20 11:17 11:18 WBC RBC Hgb Hct RDW Std Deviation RDW Coeff of Stormy Immature Gran # (Auto) Neut # (Auto) Hart # (Auto) INR APTT ABG pH ABG pCO2 ABG pO2 ABG O2 Saturation BUN Creatinine Glucose POC Glucose 276 H 305 H* 270 H Hemoglobin A1c Calcium AST Total Protein Albumin Albumin/Globulin Ratio Lipase Beta-Hydroxybutyric Acd Urine Appearance Urine Protein Urine Ketones Urine Blood Ur Leukocyte Esterase Urine RBC (Auto) U Epithel Cells (Auto) Amorphous Sediment 08/19/19 08/19/19 11:34 12:07 WBC RBC Hgb Hct RDW Std Deviation RDW Coeff of Stormy Immature Gran # (Auto) Neut # (Auto) Hart # (Auto) INR APTT 53.9 H* ABG pH ABG pCO2 ABG pO2 ABG O2 Saturation BUN Creatinine Glucose 228 H POC Glucose Hemoglobin A1c Calcium AST Total Protein Albumin Albumin/Globulin Ratio Lipase Beta-Hydroxybutyric Acd Urine Appearance Urine Protein Urine Ketones Urine Blood Ur Leukocyte Esterase Urine RBC (Auto) U Epithel Cells (Auto) Amorphous Sediment Diagnostic Findings US effusion-chest/mediastinum HISTORY: 78 years-old Female bilat pleural effusions please reji and quantitate bilateral pleural effusions COMPARISON: Chest radiograph 08/19/2019 TECHNIQUE: Multiple real-time sonographic images of the chest were obtained assessing grayscale appearance FINDINGS: Right-sided pleural effusion is noted with 210 mL fluid. Consolidation of the right lung base adjacent to the pleural fluid without a large window. Left pleural effusion is noted with 204 mL. Consolidation of the left lung base also noted adjacent to the pleural fluid without a large window. Neither side was marked. IMPRESSION: Bilateral pleural effusions as above. SINGLE VIEW CHEST CLINICAL HISTORY: Follow-up CHF. FINDINGS: An AP, portable, upright chest radiograph is compared to chest x-ray and chest CT dated 08/17/2019. The examination is degraded by portable technique and patient rotation. A right-sided central venous infusion port is in place. The heart is enlarged noting atherosclerotic calcification of the thoracic aorta. There is pulmonary vascular congestion and mild interstitial edema. There are layering pleural effusions with bibasilar consolidation. No pneumothorax is seen. The skeletal structures are osteopenic. The bony thorax is grossly intact. IMPRESSION: 1. Cardiomegaly with evidence of congestive failure. This is similar to yesterday. 2. Layering pleural effusions with bibasilar consolidation. Electronically signed by: Ramez Blanchard M.D. 08/18/2019 10:23 Medications Administered Current Inpatient Medications Acetaminophen (Tylenol) 650 mg PO Q4H PRN PRN Reason: Pain or Fever Stop: 09/15/19 18:17 Last Admin: 08/19/19 11:16 Dose: 650 mg Documented by: Al Hydrox/Mg Hydrox/Simethicone (Maalox) 15 ml PO Q4H PRN PRN Reason: Dyspepsia Stop: 09/15/19 18:17 Aspirin (Ecotrin Ectab) 81 mg PO QPM [facility] Stop: 09/15/19 20:59 Last Admin: 08/18/19 20:34 Dose: 81 mg Documented by: Atorvastatin Calcium (Lipitor) 40 mg PO QAM [facility] Stop: 09/16/19 08:59 Last Admin: 08/19/19 08:37 Dose: 40 mg Documented by: Budesonide (Pulmicort Respules) 0.5 mg NEB BIDR JOHN Stop: 09/15/19 18:59 Last Admin: 08/19/19 07:03 Dose: 0.5 mg Documented by: Clopidogrel Bisulfate (Plavix) 75 mg PO QAM [facility] Stop: 09/16/19 08:59 Last Admin: 08/19/19 08:40 Dose: 75 mg Documented by: Dextrose (Dextrose 50%) 25 - 50 ml IV UD PRN; Protocol PRN Reason: Hypoglycemia Protocol Stop: 09/15/19 18:17 Diltiazem HCl (Cardizem) 60 mg PO Q8H JOHN Stop: 09/15/19 19:29 Last Admin: 08/19/19 11:17 Dose: 60 mg Documented by: Gabapentin (Neurontin) 800 mg PO HS JOHN Stop: 09/15/19 20:59 Last Admin: 08/16/19 20:48 Dose: 800 mg Documented by: Glucagon (Glucagen) 1 mg SQ UD PRN; Protocol PRN Reason: Hypoglycemia Protocol Stop: 09/15/19 18:17 Glucose (Glucose 40%) 15 - 30 gm PO UD PRN; Protocol PRN Reason: Hypoglycemia Protocol Stop: 09/15/19 18:17 Glucose (Dex4 Glucose) 4 - 8 tabs PO UD PRN; Protocol PRN Reason: Hypoglycemia Protocol Stop: 09/15/19 18:17 Heparin Sodium (Porcine) (Heparin Sod 100 Unit/Ml Flush) 5 ml FLUSH PRN PRN PRN Reason: Flush Stop: 09/16/19 00:14 Last Admin: 08/19/19 11:39 Dose: 5 ml Documented by: Methylprednisolone 40 mg/ (Syringe) 0.64 mls @ 1.5 mls/min IV Q8H [facility] Stop: 09/17/19 17:59 Last Admin: 08/19/19 11:16 Dose: 1.5 mls/min Documented by: Furosemide 20 mg/ Syringe 2 mls @ 4 mls/min IV Q4H [facility] Stop: 09/17/19 12:59 Last Admin: 08/19/19 12:15 Dose: 4 mls/min Documented by: Heparin Sodium/Dextrose (Heparin Sodium/Dextrose) 25,000 units in 500 mls @ 20 mls/hr IV .Q24H [facility]; Protocol Stop: 09/18/19 12:59 Last Admin: 08/19/19 12:53 Dose: 1,000 units/hr, 20 mls/hr Documented by: Insulin Aspart (Novolog Flexpen) 0 units SC ACHS [facility] Stop: 09/15/19 18:17 Last Admin: 08/19/19 12:07 Dose: 25 units Documented by: Insulin Aspart (Novolog Flexpen) 0 units SC 0000,0400 [facility] Stop: 08/20/19 04:01 Insulin Human NPH (Novolin N Nph) 30 units SC BIDM [facility]; Protocol Stop: 09/17/19 16:59 Last Admin: 08/19/19 08:33 Dose: 30 units Documented by: Ipratropium Simms (Atrovent 0.02% 0.5mg/2.5ml) 0.5 mg INH Q6R [facility] Stop: 09/17/19 10:14 Last Admin: 08/19/19 13:01 Dose: 0.5 mg Documented by: Isosorbide Mononitrate (Imdur Extended Rel) 30 mg PO QAM [facility] Stop: 09/16/19 08:59 Last Admin: 08/19/19 08:35 Dose: 30 mg Documented by: Levalbuterol HCl (Xopenex 0.63 Mg/3 Ml Neb) 0.63 mg NEB Q6R JOHN Stop: 09/17/19 10:14 Last Admin: 08/19/19 13:01 Dose: 0.63 mg Documented by: Lorazepam (Ativan) 0.5 mg PO Q6 PRN PRN Reason: Anxiety Stop: 09/15/19 18:17 Magnesium Hydroxide (Milk Of Magnesia) 30 ml PO Q12H PRN PRN Reason: Constipation Stop: 09/15/19 18:17 Magnesium Oxide (Mag-Ox) 400 mg PO QPM JOHN Stop: 09/15/19 20:59 Last Admin: 08/18/19 20:33 Dose: 400 mg Documented by: Metoprolol Tartrate (Lopressor) 25 mg PO BID [facility] Stop: 09/15/19 20:59 Last Admin: 08/19/19 08:35 Dose: 25 mg Documented by: Mirtazapine (Remeron Solutab) 45 mg PO HS [facility] Stop: 09/15/19 20:59 Last Admin: 08/16/19 20:49 Dose: 45 mg Documented by: Miscellaneous (Carbohydrates For Hypoglycemia) 15 - 30 gm PO UD PRN PRN Reason: Hypoglycemia Treatment Stop: 09/15/19 18:17 Last Admin: 08/17/19 14:50 Dose: 30 gm Documented by: Miscellaneous Information (Consult Glycemic Management Pharmacy) 1 ea N/A UD PRN; Protocol PRN Reason: Consult Stop: 09/15/19 18:37 Montelukast Sodium (Singulair) 10 mg PO HS [facility] Stop: 09/15/19 20:59 Last Admin: 08/18/19 20:34 Dose: 10 mg Documented by: Ondansetron HCl (Zofran) 4 mg IV Q6H PRN PRN Reason: Nausea Stop: 09/15/19 18:17 Pantoprazole Sodium (Protonix) 40 mg PO BID [facility] Stop: 09/15/19 20:59 Last Admin: 08/19/19 08:36 Dose: 40 mg Documented by: Polyethylene Glycol (Miralax Powder Packet) 17 gm PO DAILY PRN PRN Reason: Constipation Stop: 09/15/19 18:17 Ropinirole HCl (Requip) 1 mg PO [facility] Stop: 09/15/19 20:59 Last Admin: 08/16/19 20:49 Dose: 1 mg Documented by: Trazodone HCl (Desyrel) 50 mg PO [facility] Stop: 09/15/19 20:59 Last Admin: 08/18/19 20:34 Dose: 50 mg Documented by: PG Care Time/CCT Total # of Minutes Spent Total Time Spent with Patient: Total time spent is greater than 50% in coordination of care (as documented) at patient's floor/unit and/or counseling patient:
--- NOTE | 2019-08-19 15:56 | Hospitalist Progress Note ---
Date of Service August 19, 2019 Assessment & Plan (1) Hypoxia: 70-year-old female with history of CAD, COPD, diabetes, hypertension, CVA, recurrent pancreatitis, Presenting with shortness of breath. HYPOXIA SECONDARY TO BILATERAL PLEURAL EFFUSION, LIKELY FROM VALVULAR AND DIASTOLIC CHF Now down to 3 L of oxygen by nasal cannula Currently on Lasix 20 mg IV every 4 hours, diuresing fairly, monitor diuresis, nephrology service on board Continue Solu-Medrol 40 mg every 8, nebs every 6 hours for possible component of COPD exacerbation; pulmonary service consulted, deferring plans for thoracentesis at this time ATRIAL FIBRILLATION ON RAPID VENTRICULAR RESPONSE Now in sinus rhythm Diltiazem added to metoprolol On heparin drip [employer] consulted ACUTE RENAL FAILURE ON CKD STAGE III Baseline creatinine 1.2-1.4 Creatinine 2.4 today Monitor closely while on Lasix Appreciate nephrology service recommendations LOWER BACK PAIN Check CT abdomen and pelvis to rule out retroperitoneal hemorrhage Start PRN tramadol, Lidoderm patch, warm compress CAD Continue aspirin, Plavix, metoprolol COPD With exacerbation, management per #1 DIABETES TYPE 2 Pharmacist consulted for glycemic control HYPERTENSION Stable, continue Imdur, metoprolol HISTORY OF CVA Continue aspirin, Plavix atorvastatin DVT prophylaxis Currently on heparin drip Disposition Patient will need PT/OT evaluation Patient normally lives at home with family Subjective Follow-up for hypoxia, bilateral effusions, COPD exacerbation, acute renal failure and CKD, atrial fibrillation Seen sitting up in bedside chair, not in distress Appears more comfortable than yesterday On 3 L of oxygen by nasal cannula She continues to feel tired Breathing slightly better compared to yesterday, has intermittent cough, nonproductive Denies chest pain, dyspnea, palpitations, dizziness No bleeding No other symptoms Review of Systems Review of Systems: All systems reviewed & are unremarkable except as noted in HPI & below Physical Exam Physical Exam: General- oriented x 3, not in distress, speaks in sentences with no effort or accessory muscle use Eyes- anicteric Neck- no JVD Lungs-decreased breath sounds bilaterally at the bases, no wheezing Heart- normal rate, regular rhythm; no murmurs Abdomen- normal bowel sounds, nondistended, soft, nontender Extremities- no pretibial edema, no calf tenderness Neuro- alert, oriented x 3; no gross focal neurologic deficits Skin- warm & dry Results & Data Vital Signs (Past 12 Hours) Vital Signs Temp Pulse Pulse Resp BP Pulse Ox 08/19/19 15:29 36.6 C 73 22 115/65 97 08/19/19 13:05 63 16 100 08/19/19 11:21 36.5 C 75 16 108/63 100 08/19/19 08:00 74 08/19/19 07:21 36.8 C 81 20 112/65 95 08/19/19 07:03 76 20 92 Laboratory Results Laboratory Results - last 24 hr 08/18/19 08/18/19 08/19/19 16:26 20:27 05:35 PT INR APTT PTT Ratio Sodium 139 Potassium 4.0 Chloride 105 Carbon Dioxide 26 Anion Gap 8.0 BUN 43 H Creatinine 2.42 H Est Cr Clr Drug Dosing 17.3 Est GFR ( Amer) 21.5 Est GFR (Non-Af Amer) 18.5 BUN/Creatinine Ratio 17.7 Glucose 221 H POC Glucose 178 H 273 H Calcium 8.8 08/19/19 08/19/19 08/19/19 05:36 07:20 11:17 PT 11.7 INR 1.2 H APTT PTT Ratio Sodium Potassium Chloride Carbon Dioxide Anion Gap BUN Creatinine Est Cr Clr Drug Dosing Est GFR ( Amer) Est GFR (Non-Af Amer) BUN/Creatinine Ratio Glucose POC Glucose 276 H 305 H* Calcium 08/19/19 08/19/19 08/19/19 11:18 11:34 12:07 PT INR APTT 53.9 H* PTT Ratio 2.0 Sodium Potassium Chloride Carbon Dioxide Anion Gap BUN Creatinine Est Cr Clr Drug Dosing Est GFR ( Amer) Est GFR (Non-Af Amer) BUN/Creatinine Ratio Glucose 228 H POC Glucose 270 H Calcium
[2019-08-19] MEDS: TRAMADOL HCL 50 MG TABLET PO PRN (16:38)
--- NOTE | 2019-08-19 16:48 | CT Scan Report ---
CT OF THE ABDOMEN AND PELVIS WITHOUT CONTRAST CLINICAL HISTORY: Back pain. Evaluate for retroperitoneal hematoma. COMPARISON STUDY: CT of the abdomen and pelvis July 27, 2019. TECHNIQUE: Axial images of the abdomen and pelvis were obtained without IV contrast. Images were revi ewed in the axial, sagittal, and coronal planes. Automated exposure control was utilized for the theodore dy. A dose lowering technique was utilized adhering to the principles of ALARA. FINDINGS: Imaged portions of the lower chest demonstrate small bilateral pleural effusions with assoc iated atelectasis. The heart is moderately enlarged. There is extensive coronary artery calcification . There is fatty infiltration of the liver. There is slight nodularity of the liver surface. Evaluati on of the abdomen and pelvis is suboptimal on this unenhanced exam. There are calcified granulomas wi thin the liver and spleen. There are numerous pancreatic parenchymal calcifications with glandular at rophy. There is moderate dilatation of the pancreatic duct, measuring 6 mm. There are several suspect ed calculi within the distal pancreatic duct measure up to 5 mm. There is no definite peripancreatic infiltration. Prominent upper abdominal lymph nodes are unchanged from earlier exams and likely benig n. There is no hydronephrosis. Calcifications within each renal sinus probably reflects vascular calc ifications although renal calculi could appear similar. There is no hydronephrosis. There is a modera te amount of stool within the colon and rectum. There is no evidence for a bowel obstruction. Robles b alloon is present within the bladder which is collapsed. There is no retroperitoneal hematoma. There is no acute lumbar spine fracture. Avascular necrosis of both femoral heads is noted. IMPRESSION: 1. No retroperitoneal hematoma. 2. Evidence for chronic pancreatitis. Moderate dilatation of the pancreatic duct, measuring 6 mm, wit h several suspected calculi within the distal pancreatic duct that measure up to [address] evidence for acute pancreatitis although could be correlated with lipase levels. 3. Small bilateral pleural effusions with associated atelectasis. 4. Moderate amount of stool within the colon and rectum. No bowel obstruction. 5. Avascular necrosis of the bilateral femoral heads. Electronically signed by: Brijesh Jeter M.D. 08/19/2019 4:47 PM
[2019-08-19] MEDS: LIDOCAINE 5% 1 PATCH TD SCH (17:17)
--- NOTE | 2019-08-19 18:10 | Ultrasound Report ---
ULTRASOUND RIGHT LOWER EXTREMITY VENOUS CLINICAL HISTORY: Right calf pain and swelling. COMPARISON STUDY: Bilateral lower extremity venous ultrasound dated 08/01/2019. TECHNIQUE: Real-time, grayscale, and color Doppler sonography of the deep veins of the right lower ex tremity was performed from the inguinal crease to the calf. Compression and augmentation were utilize d. FINDINGS: There is no sonographic evidence of deep venous thrombosis identified in the right lower ex tremity. The common femoral, superficial femoral, and popliteal veins are patent and normally ela sible. The greater saphenous vein and the profunda femoris vein at the junction with the common femor al vein are clear. The visualized calf veins are patent. IMPRESSION: There is no sonographic evidence of deep venous thrombosis identified in the right lower extremity. Electronically signed by: Ramze Blanchard M.D. 08/19/2019 6:09 PM
[2019-08-19 19:24] LABS: Partial Thromboplastin Ratio 1.5; Partial Thromboplastin Time 41.3 Seconds (21.0-31.0)
[2019-08-19] MEDS: MONTELUKAST SODIUM 10 MG TABLET PO SCH (20:07)
[2019-08-19] MEDS: TRAZODONE HCL 50 MG TAB PO SCH (20:07)
[2019-08-19] MEDS: MAGNESIUM OXIDE 400 MG TAB PO SCH (20:07)
[2019-08-19] MEDS: ASPIRIN 81 MG ECTAB PO SCH (20:07)
[2019-08-19] MEDS: predniSONE 20 MG TAB PO SCH (20:10)
[2019-08-19] MEDS ORDERED: HEPARIN IV BOLUS 5,000 UNITS in SYRINGE 0 ML IV ONE (21:30)
[2019-08-20] MEDS: IPRATROPIUM BROMIDE NEB SOLN 0.02% 2.5 ML VIAL INH SCH ×4 (00:36→19:05)
[2019-08-20] MEDS: LEVALBUTEROL HCL 0.63 MG/3 ML NEB NEB SCH ×4 (00:36→19:05)
[2019-08-20] MEDS: FUROSEMIDE 20 MG in SYRINGE 0 ML IV SCH ×3 (00:43→08:10)
[2019-08-20] MEDS: INSULIN ASPART 100 UNITS/ML 3 ML PEN SC SCH ×6 (01:42→20:53)
[2019-08-20] MEDS: dilTIAZem HCl 60 MG TAB PO SCH ×2 (04:27→11:48)
--- NOTE | 2019-08-20 05:55 | Hospitalist Progress Note ---
Date of Service August 20, 2019 Subjective Made aware by RN of hematuria noted on Robles bag. No abdominal/flank pain symptoms. AP Painless hematuria Rule out UTI Check UA Hold heparin and antiplatelet Rx for now. Will relay to AM provider. Results & Data Vital Signs (Past 12 Hours) Vital Signs Temp Pulse Resp BP BP Pulse Ox 08/20/19 03:54 36.3 C L 74 16 133/83 97 08/20/19 00:36 71 20 95 08/19/19 23:29 36.5 C 71 21 121/72 97 08/19/19 19:26 79 18 98 08/19/19 19:18 36.7 C 78 18 109/61 97
[2019-08-20 06:13] LABS: Bacteria Urine Automated 2+ (Negative); Bilirubin Urine Negative (Negative); Blood Urine 3+ (Negative); Color Urine Red; Epithelial Cell Urine Auto 0-5 /lpf (0-5); Glucose Urine UA Negative (Negative); Ketones Urine Negative (Negative); Leukocyte Esterase Urine 2+ (Negative); Nitrite Urine Negative (Negative); Protein Urine 1+ (Negative); RBC Urine Automated >30 /hpf (0-4); Specific Gravity Urine 1.015 (1.000-1.030); Urobilinogen Urine Negative (Negative); WBC Urine Automated >30 /hpf (0-5)
[2019-08-20 06:22] LABS: Appearance Urine Slightly Cloudy (Clear)
[2019-08-20 06:48] LABS: Hematocrit (blood only) 28.7 % (37-47); Hemoglobin 9.5 g/dL (12.0-16.0); Immature Granulocytes # (auto) 0.04 K/uL (0.00-0.02); Immature Granulocytes % (auto) 0.3 %; Lymphocytes # (auto) 1.58 K/uL (1.2-3.4); Lymphocytes % (auto) 12.7 %; Mean Corpuscular Hemoglobin 29.1 pg (25-34); Mean Corpuscular Hgb Conc 33.1 g/dL (32-36); Mean Corpuscular Volume 87.8 fL (80-100); Monocytes % (auto) 6.4 %; Neutrophils # (auto) 10.05 K/uL (1.4-6.5); Neutrophils % (auto) 80.6 %; Platelet Count 332 K/uL (130-400); RDW Standard Deviation 47.6 fL (36.4-46.3); Red Blood Count 3.27 M/uL (4.2-5.4); White Blood Count 12.47 K/uL (4.8-10.8)
[2019-08-20] MEDS: BUDESONIDE 0.5 MG/2 ML VIAL (PULMICORT) NEB SCH ×2 (06:56→19:06)
[2019-08-20 07:08] LABS: Partial Thromboplastin Ratio 2.2
[2019-08-20 07:10] LABS: Partial Thromboplastin Time 58.3 Seconds (21.0-31.0)
[2019-08-20 07:25] LABS: Alanine Aminotransferase 28 U/L (12-78); Albumin Level 2.5 gm/dl (3.4-5.0); Aspartate Aminotransferase 30 U/L (15-37); BUN Creatinine Ratio 22.5 (10-20); Bilirubin Direct < 0.1 mg/dl (0-0.2); Blood Urea Nitrogen 56 mg/dl (7-18); Calcium 8.4 mg/dl (8.5-10.1); Carbon Dioxide 25 mmol/L (21-32); Chloride 101 mmol/L (98-107); Creatinine Clr Calc Pharmacy 16.4 ml/min; Est GFR (African American) 20.8; Glucose 189 mg/dl (70-99); Potassium 3.8 mmol/L (3.5-5.1); Sodium 138 mmol/L (136-145)
[2019-08-20 07:27] LABS: Alkaline Phosphatase 92 U/L (45-117); Bilirubin,Total 0.3 mg/dl (0.2-1); Total Protein 6.5 gm/dl (6.4-8.2)
[2019-08-20] MEDS: INSULIN HUMAN NPH SC SCH ×2 (08:04→17:16)
[2019-08-20] MEDS: ATORVASTATIN 40 MG TAB PO SCH (08:10)
[2019-08-20] MEDS: ISOSORBIDE MONO EXTENDED REL 30 MG TABCR PO SCH (08:10)
[2019-08-20] MEDS: METOPROLOL TARTRATE 25 MG TAB PO SCH ×2 (08:10→20:44)
[2019-08-20] MEDS: predniSONE 20 MG TAB PO SCH ×2 (08:10→20:42)
[2019-08-20] MEDS: PANTOprazole 40 MG TAB PO SCH ×2 (08:10→20:42)
[2019-08-20] MEDS: LIDOCAINE 5% 1 PATCH TD SCH (08:10)
[2019-08-20] MEDS ORDERED: Heparin IV Low Dose *NO* Bolus IV ONE (09:27)
[2019-08-20] MEDS ORDERED: FUROSEMIDE 40 MG/4 ML VIAL IV STA (09:37)
--- NOTE | 2019-08-20 09:37 | Hospitalist Progress Note ---
Date of Service August 20, 2019 Assessment & Plan (1) Hypoxia: 70-year-old female with history of CAD, COPD, diabetes, hypertension, CVA, recurrent pancreatitis, Presenting with shortness of breath. HYPOXIA SECONDARY TO BILATERAL PLEURAL EFFUSION, LIKELY FROM VALVULAR AND DIASTOLIC CHF Now down to 3 L of oxygen by nasal cannula increase Lasix to 60mg q8h per discussion with Nephrology SVC Continue Prednisone, nebs every 6 hours for possible component of COPD exacerbation; pulmonary service consulted, deferring plans for thoracentesis at this time ATRIAL FIBRILLATION ON RAPID VENTRICULAR RESPONSE Now in sinus rhythm Diltiazem added to metoprolol On heparin drip Armhole Baster Hand consulted ACUTE RENAL FAILURE ON CKD STAGE III Baseline creatinine 1.2-1.4 Creatinine 2.4 today Monitor closely while on Lasix Appreciate nephrology service recommendations HEMATURIA Hg stable improving possible UTI, ff up culture, Ceftriaxone IV started heparin changed to low dose, no bolus ASA, Plavix continued discussed with Urology SVC LOWER BACK PAIN, LIKELY MUSCULOSKELETAL ETIOLOGY CT abdomen and pelvis to rule out retroperitoneal hemorrhage: negative PRN tramadol, Lidoderm patch, warm compress CAD, S/P GAETANO JANUARY 2019 Continue aspirin, Plavix, metoprolol COPD With exacerbation, management per #1 DIABETES TYPE 2 Pharmacist consulted for glycemic control HYPERTENSION Stable, continue Imdur, metoprolol HISTORY OF CVA Continue aspirin, Plavix atorvastatin DVT prophylaxis Currently on heparin drip Disposition Patient will need PT/OT evaluation Patient normally lives at home with family Subjective ff up for hypoxia, pleural effusion, etc noted to have hematuria overnight seen resting in bed, not in distress states she feels about the same as yesterday breathing is "ok" denies chest pain, palpitations, dizziness no abdominal pain, nausea/vomiting no other symptoms Review of Systems Review of Systems: All systems reviewed & are unremarkable except as noted in HPI & below Physical Exam Physical Exam: General- oriented x 3, not in distress, speaks in sentences with no effort or accessory muscle use Eyes- anicteric Neck- no JVD Lungs- mild decrease in breath sounds bilaterally no wheezing Heart- normal rate, regular rhythm; no murmurs Abdomen- normal bowel sounds, nondistended, soft, nontender Extremities- no pretibial edema, no calf tenderness Neuro- alert, oriented x 3; no gross focal neurologic deficits Skin- warm & dry Results & Data Vital Signs (Past 12 Hours) Vital Signs Temp Pulse Pulse Resp BP Pulse Ox 08/20/19 08:30 67 08/20/19 07:13 36.8 C 63 18 119/67 97 08/20/19 07:00 64 18 97 08/20/19 03:54 36.3 C L 74 16 133/83 97 08/20/19 00:36 71 20 95 08/19/19 23:29 36.5 C 71 21 121/72 97 Laboratory Results Laboratory Results - last 24 hr 08/19/19 08/19/19 08/20/19 19:03 20:01 01:10 WBC RBC Hgb Hct MCV MCH MCHC RDW Std Deviation RDW Coeff of Stormy Plt Count MPV Immature Gran % (Auto) Neut % (Auto) Lymph % (Auto) Humphreys % (Auto) Eos % (Auto) Baso % (Auto) Immature Gran # (Auto) Neut # (Auto) Lymph # (Auto) Humph[place]ys # (Auto) Eos # (Auto) Baso # (Auto) APTT 41.3 H PTT Ratio 1.5 Sodium Potassium Chloride Carbon Dioxide Anion Gap BUN Creatinine Est Cr Clr Drug Dosing Est GFR ( Amer) Est GFR (Non-Af Amer) BUN/Creatinine Ratio Glucose POC Glucose 142 H 146 H Calcium Magnesium Total Bilirubin Direct Bilirubin AST ALT Alkaline Phosphatase Total Protein Albumin Urine Color Urine Appearance Urine pH Ur Specific [place] Urine Protein Urine Glucose (UA) Urine Ketones Urine Blood Urine Nitrite Urine Bilirubin Urine Urobilinogen Ur Leukocyte Esterase Urine WBC (Auto) Urine RBC (Auto) U Hyaline Cast (Auto) U Epithel Cells (Auto) Urine Bacteria (Auto) Blood Type Antibody Screen 08/20/19 08/20/19 08/20/19 03:57 05:00 06:19 WBC 12.47 H RBC 3.27 L Hgb 9.5 L Hct 28.7 L MCV 87.8 MCH 29.1 MCHC 33.1 RDW Std Deviation 47.6 H RDW Coeff of Stormy 15.0 H Plt Count 332 MPV 9.0 Immature Gran % (Auto) 0.3 Neut % (Auto) 80.6 Lymph % (Auto) 12.7 Humphreys % (Auto) 6.4 Eos % (Auto) 0.0 Baso % (Auto) 0.0 Immature Gran # (Auto) 0.04 H Neut # (Auto) 10.05 H Lymph # (Auto) 1.58 Humphreys # (Auto) 0.80 H Eos # (Auto) 0.00 Baso # (Auto) 0.00 APTT PTT Ratio Sodium Potassium Chloride Carbon Dioxide Anion Gap BUN Creatinine Est Cr Clr Drug Dosing Est GFR ( Amer) Est GFR (Non-Af Amer) BUN/Creatinine Ratio Glucose POC Glucose 153 H Calcium Magnesium Total Bilirubin Direct Bilirubin AST ALT Alkaline Phosphatase Total Protein Albumin Urine Color Red Urine Appearance Slightly Cloudy A Urine pH 5.0 Ur Specific [place] 1.015 Urine Protein 1+ H Urine Glucose (UA) Negative Urine Ketones Negative Urine Blood 3+ H Urine Nitrite Negative Urine Bilirubin Negative Urine Urobilinogen Negative Ur Leukocyte Esterase 2+ H Urine WBC (Auto) >30 H Urine RBC (Auto) >30 H U Hyaline Cast (Auto) 1-5 U Epithel Cells (Auto) 0-5 Urine Bacteria (Auto) 2+ H Blood Type Antibody Screen 08/20/19 08/20/19 08/20/19 06:19 06:19 06:19 WBC RBC Hgb Hct MCV MCH MCHC RDW Std Deviation RDW Coeff of Stormy Plt Count MPV Immature Gran % (Auto) Neut % (Auto) Lymph % (Auto) Humphreys % (Auto) Eos % (Auto) Baso % (Auto) Immature Gran # (Auto) Neut # (Auto) Lymph # (Auto) Humphreys # (Auto) Eos # (Auto) Baso # (Auto) APTT 58.3 H* PTT Ratio 2.2 Sodium 138 Potassium 3.8 Chloride 101 Carbon Dioxide 25 Anion Gap 12.0 H BUN 56 H Creatinine 2.48 H Est Cr Clr Drug Dosing 16.4 Est GFR ( Amer) 20.8 Est GFR (Non-Af Amer) 18.0 BUN/Creatinine Ratio 22.5 H Glucose 189 H POC Glucose Calcium 8.4 L Magnesium 2.0 Total Bilirubin 0.3 Direct Bilirubin < 0.1 AST 30 ALT 28 Alkaline Phosphatase 92 Total Protein 6.5 Albumin 2.5 L Urine Color Urine Appearance Urine pH Ur Specific [place] Urine Protein Urine Glucose (UA) Urine Ketones Urine Blood Urine Nitrite Urine Bilirubin Urine Urobilinogen Ur Leukocyte Esterase Urine WBC (Auto) Urine RBC (Auto) U Hyaline Cast (Auto) U Epithel Cells (Auto) Urine Bacteria (Auto) Blood Type O Positive Antibody Screen NEGATIVE 08/20/19 08/20/19 08/20/19 07:04 11:45 16:05 WBC RBC Hgb Hct MCV MCH MCHC RDW Std Deviation RDW Coeff of Stormy Plt Count MPV Immature Gran % (Auto) Neut % (Auto) Lymph % (Auto) Humphreys % (Auto) Eos % (Auto) Baso % (Auto) Immature Gran # (Auto) Neut # (Auto) Lymph # (Auto) [place]ys # (Auto) Eos # (Auto) Baso # (Auto) APTT 33.5 H PTT Ratio 1.2 Sodium Potassium Chloride Carbon Dioxide Anion Gap BUN Creatinine Est Cr Clr Drug Dosing Est GFR ( Amer) Est GFR (Non-Af Amer) BUN/Creatinine Ratio Glucose POC Glucose 174 H 168 H Calcium Magnesium Total Bilirubin Direct Bilirubin AST ALT Alkaline Phosphatase Total Protein Albumin Urine Color Urine Appearance Urine pH Ur Specific [place] Urine Protein Urine Glucose (UA) Urine Ketones Urine Blood Urine Nitrite Urine Bilirubin Urine Urobilinogen Ur Leukocyte Esterase Urine WBC (Auto) Urine RBC (Auto) U Hyaline Cast (Auto) U Epithel Cells (Auto) Urine Bacteria (Auto) Blood Type Antibody Screen 08/20/19 16:16 WBC RBC Hgb Hct MCV MCH MCHC RDW Std Deviation RDW Coeff of Stormy Plt Count MPV Immature Gran % (Auto) Neut % (Auto) Lymph % (Auto) Humphreys % (Auto) Eos % (Auto) Baso % (Auto) Immature Gran # (Auto) Neut # (Auto) Lymph # (Auto) [place]reys # (Auto) Eos # (Auto) Baso # (Auto) APTT PTT Ratio Sodium Potassium Chloride Carbon Dioxide Anion Gap BUN Creatinine Est Cr Clr Drug Dosing Est GFR ( Amer) Est GFR (Non-Af Amer) BUN/Creatinine Ratio Glucose POC Glucose 165 H Calcium Magnesium Total Bilirubin Direct Bilirubin AST ALT Alkaline Phosphatase Total Protein Albumin Urine Color Urine Appearance Urine pH Ur Specific [place] Urine Protein Urine Glucose (UA) Urine Ketones Urine Blood Urine Nitrite Urine Bilirubin Urine Urobilinogen Ur Leukocyte Esterase Urine WBC (Auto) Urine RBC (Auto) U Hyaline Cast (Auto) U Epithel Cells (Auto) Urine Bacteria (Auto) Blood Type Antibody Screen
--- NOTE | 2019-08-20 09:40 | Urology Consultation ---
Date of Consultation August 20, 2019 Assessment & Plan (1) Hematuria, gross: Patient with multiple issues admitted for management. MARIE and chronic respiratory issues exacerbation as well as chronic pancreas issues and abdominal pain. AUR with catheter in place. Developed GH. Had been on Heparin drip. Has slowed down. CT reviewed and interpreted. Small calcifications in kidney without hydro. No masses or lesions. Other findings per report. Decompressed bladder. Discussed GH and workup. Discussed possible concerns. Discussed possible irritation from catheter placement. UA shows some bacteria, but may be contamination from catheter. Discussed management of blood thinner. Okay to restart and monitor hematuria. Explained minor bleeding may look severe in urine. Will monitor. Recommend dickinson removal when possible. Recommend first thing in AM to give time to see if can void on own. Discussed possiblity of intermittent hematuria. Monitor for clots, blockage, or severe increase in issues. Present on Admission?: No History of Present Illness Attending Physician: Saul Conrad MD History of Present Illness Patient with chronic respiratory, pancreas, and bowel issues. Admitted due to exacerbation of all issues. Had been on Heparin drip and had catheter in place. Developed MARIE and has been managed for fluid overload with respiratory issues. Developed hematuria. Heparin drip was held. Has since cleared. Patient has had catheters in past. Previously known to have kidney stones. CT showed decompressed bladder, no masses of kidney, and small calcifications in the kidney. States had more pain than usual with catheter placement. Had been having increased urgency and frequncy. Previously has had some issues. Catheter is giving mild burning discomfort. no severe issues. Abd pain on admission has improved. Allergies Allergy/AdvReac Type Severity Reaction Status Date / Time Gadolinium-Containing Allergy Severe NAUSEA,VOMITING, Verified 08/16/19 14:32 Contrast Medi SWELLING/EDEMA AROUND EYES, WHEEZING Iodinated Contrast Media Allergy Severe RASH TO Verified 08/16/19 14:32 IVP DYE,NAUSEA, FAINTING, COUGHING, GAGGING, HEADACH Sulfa (Sulfonamide Allergy Severe HIVES, Verified 08/16/19 14:32 Antibiotics) FACIAL AND ARM SWELLING cerivastatin Allergy Intermediate HIVES Verified 08/16/19 14:32 codeine Allergy Intermediate "PRICKLY Verified 08/16/19 14:32 RASH" hydroxyzine Allergy Intermediate N/V Verified 08/16/19 14:32 latex Allergy Intermediate DERMATITIS-PT Verified 08/16/19 14:32 TOLERATED A LATEX CATHETER 03/26/08 Bactrim Allergy Mild RASH Verified 04/29/18 14:40 diphenhydramine Allergy Mild RASH; Verified 08/16/19 14:32 SLEEPINESS WITH "PHARBEDRYL" loratadine Allergy Mild HIVES Verified 08/16/19 14:32 sulfamethoxazole Allergy Mild RASH Verified 08/16/19 14:32 trimethoprim Allergy Mild RASH Verified 08/16/19 14:32 prednisone Allergy Unknown elevates Verified 08/16/19 14:32 blood sugar tetanus toxoid, adsorbed AdvReac Intermediate SWELLING Verified 08/16/19 14:32 AT INJECTION SITE alprazolam AdvReac Unknown "SLEEPY Verified 08/16/19 14:32 STUPER" metformin AdvReac Unknown DIARRHEA Verified 08/16/19 14:32 morphine AdvReac Unknown VOMITING Verified 08/16/19 14:32 simvastatin AdvReac Unknown COUGH, Verified 08/16/19 14:32 "DISCOMFORT" gadobutrol [From Gadavist] AdvReac Anaphylaxis Unverified 08/16/19 14:32 Home Medications Home Medications Medication Instructions Recorded Confirmed Type amlodipine [Norvasc] 10 mg PO QAM 08/24/18 08/16/19 History aspirin 1 tab PO QPM 08/24/18 08/16/19 History dicyclomine 10 mg PO TID PRN 08/24/18 08/16/19 History fluticasone propionate [Flonase 2 spray INTRANASAL QPM PRN 08/24/18 08/16/19 History Allergy Relief] lorazepam [Ativan] 0.5 mg PO Q6 PRN 08/24/18 08/16/19 History ondansetron HCl [Zofran] 4 mg PO Q8H PRN 08/24/18 08/16/19 History trazodone 50 mg PO HS 08/24/18 08/16/19 History albuterol sulfate 2.5 mg INHALATION QID PRN 01/26/19 08/16/19 History levocetirizine [Xyzal] 2.5 mg PO QPM 01/26/19 08/16/19 History mirtazapine 45 mg PO HS 01/26/19 08/16/19 History ropinirole 1 mg PO HS 01/26/19 08/16/19 History atorvastatin 40 mg PO QAM #30 tab 01/28/19 08/16/19 Rx clopidogrel 75 mg PO QAM #30 tab 01/28/19 08/16/19 Rx isosorbide mononitrate 30 mg PO QAM #30 tab 01/28/19 08/16/19 Rx nitroglycerin [Nitrostat] 0.4 mg SUBLINGUAL PRN PRN #30 tab 01/28/19 08/16/19 Rx Novolin 70/30 U-100 Insulin 35 unit SUBCUT QPM 05/04/19 08/16/19 History Novolin 70/30 U-100 Insulin 55 unit SUBCUT QAM 05/04/19 08/16/19 History albuterol sulfate [Proventil HFA] 2 puff INHALATION Q4 PRN 05/04/19 08/16/19 History gabapentin 800 mg PO HS 07/11/19 08/16/19 History magnesium oxide 400 mg PO QPM 07/11/19 08/16/19 History metoprolol tartrate 25 mg PO BID 07/11/19 08/16/19 History montelukast [Singulair] 10 mg PO HS 30 Days #30 tab 08/02/19 08/16/19 Rx pantoprazole 40 mg PO BID 30 Days #60 tab 08/02/19 08/16/19 Rx fexofenadine 60 mg tablet 60 mg PO DAILY tab 08/11/19 08/16/19 History ranitidine 300 mg capsule 300 mg PO HS #30 cap 08/11/19 08/16/19 History cholestyramine-aspartame 4 g PO DAILY 08/16/19 08/16/19 History guaifenesin 100 mg PO Q6H PRN 08/16/19 08/16/19 History hydrocodone-homatropine 5 ml PO Q6H PRN 08/16/19 08/16/19 History loratadine 10 mg PO DAILY 08/16/19 08/16/19 History losartan 100 mg PO DAILY 08/16/19 08/16/19 History mometasone-formoterol [Dulera] 2 puff INHALATION BID 08/16/19 08/16/19 History simethicone 80 mg PO Q6H PRN 08/16/19 08/16/19 History Patient History Medical History GERD (gastroesophageal reflux disease) Osteoarthritis (Chronic) Seasonal allergies (Chronic) Aortic stenosis (Chronic) moderate Pancreatitis (Chronic) Valvular heart disease Non-STEMI (non-ST elevated myocardial infarction) 01/2019 Left bundle branch block Giant cell arteritis (Resolved) Gastroparesis (Chronic) Dyslipidemia (Chronic) Depression (Chronic) HTN (hypertension) (Chronic) Insomnia (Chronic) RLS (restless legs syndrome) (Chronic) Peripheral neuropathy (Chronic) Pancreatic cyst (Chronic) Anxiety (Chronic) COPD (chronic obstructive pulmonary disease) (Chronic) Diabetes mellitus, type II (Chronic) poorly controlled Sleep apnea (Chronic) PT DENIES/NO DEVICE Chronic pancreatitis (Chronic) Cerebrovascular disease (Chronic) "history stroke and TIA" L sided weakness. Fatty liver (Chronic) Esophageal dysmotility (Chronic) Pancreatic divisum (Chronic) CKD (chronic kidney disease), stage III (Chronic) F/U PCP Surgical History History of ERCP (Resolved) x3 with stents. ERCP 04/30/18. MAC 3, grade 2 view. 7.0 ETT placed. No issues. History of bilateral tubal ligation (Resolved) S/P cardiac catheterization (Resolved) 01/2019 [facility] X 2-TOTAL 2 STENTS 04/2019 non obstructive disease History of cataract surgery (Chronic) both eyes Family History Daughter No problems noted. 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 Beliefs That Will Affect Care: None marital status: / Current Living Situation: Alone Current Living Situation Comment: january 21, no longer has drivers license - stroke Other Information That Helps Us Care for You: No Feels Safe at Home: Yes Safety Concerns: Feels Safe At This Time Smoking Status: Never smoker Do You Dip or Chew Tobacco: No ; Second Hand Exposure: No ; Tobacco Cessation Education Requested by Patient: No Hx Alcohol Use: No Hx Substance Use: No Review of Systems Review of Systems: All systems reviewed & are unremarkable except as noted in HPI & below Physical Exam Physical Exam: General: Alert in no acute distress. HEENT: Normocephalic Atraumatic. Inspection normal. Cranial Nerves 2-12 Grossly intact. Normal inspection of face. Normal inspection of neck. NC on O2 flow Psychologic: Normal affect. Respiratory: Tachypnea. Mild labored at baseline. Significant chronic issues. . Cardiovascular: No tachycardia Skin: [place] and Dry. No rashes or visible lesions. Extremities/Lymphatics: Moderate edema. Walker for ambulation. Abdomen: Moderately distended. No rebound or guarding. Obese. : Mild pink urine in bag. Clear light yellow in tubing. Results & Data Vital Signs (Past 12 Hours) Vital Signs Temp Pulse Pulse Resp BP Pulse Ox 08/20/19 08:30 67 08/20/19 07:13 36.8 C 63 18 119/67 97 08/20/19 07:00 64 18 97 08/20/19 03:54 36.3 C L 74 16 133/83 97 08/20/19 00:36 71 20 95 08/19/19 23:29 36.5 C 71 21 121/72 97 PG Care Time/CCT Total # of Minutes Spent Total Time Spent with Patient: Total time spent is greater than 50% in coordination of care (as documented) at patient's floor/unit and/or counseling patient:
[2019-08-20] MEDS ORDERED: ROCEPHIN: CONSULT PHARMACY PRN (09:52)
--- NOTE | 2019-08-20 09:55 | Nephrology Progress Note ---
Date of Service August 20, 2019 Assessment & Plan (1) Acute kidney injury superimposed on CKD: prerenal versus ischemic ATN in the setting of hemodynamic instability from AF w/ RVR now with improved/resolved hypotension and still marked volume OL. UACM remarkable mostly for ketones, contaminated specimen; suspect blood protein from contamination/dickinson -We will increase Lasix to 60 mg IV 3 times daily -Monitor input output -daily bmp -cont current diuretics pending labs (2) Labile blood pressure: Blood pressure is controlled on current regimen. No changes today (3) Diastolic CHF: valvular and diastolic HF w/ marked volume overload on exam as evidenced by pl effusions, hypoxia >> she was net -1 L yesterday. We are increasing Lasix to 60 mg 3 times daily as above. -cont <2 gm daily Na diet -cont 1.5L FR (4) Pleural effusion, bilateral: Pulmonary on board. Recommend conservative management with diuresis. No role for thoracentesis at the moment. Subjective Patient seen this morning. She feels a little better but still has shortness of breath. No leg swelling. She had episode of hematuria last night. She was net -1 L. Heparin temporarily on hold. Review of Systems Review of Systems: All systems reviewed & are unremarkable except as noted in HPI & below Physical Exam Physical Exam: General exam: Appears comfortable on oxygen by nasal cannula, no acute distress HEENT: Pupils are equal and reactive to light Neck: No JVD, neck is supple trachea is midline Respiratory system: Reduced breath sounds in the bases bilaterally. Gastrointestinal: Abdomen is soft, non distended, non tender, bowel sounds are present CVS: Regular rate and rhythm. No murmurs, rubs or gallops Musculoskeletal: No joint or muscle tenderness Extremities: Non tender, no edema, peripheral pulses are present Neuro: Oriented, no tremors, no focal neurological deficits Skin: No rashes Results & Data Vital Signs (Past 12 Hours) Vital Signs Temp Pulse Pulse Resp BP Pulse Ox 08/20/19 08:30 67 08/20/19 07:13 36.8 C 63 18 119/67 97 08/20/19 07:00 64 18 97 08/20/19 03:54 36.3 C L 74 16 133/83 97 08/20/19 00:36 71 20 95 08/19/19 23:29 36.5 C 71 21 121/72 97 Laboratory Results Laboratory Results - last 24 hr 09/27/19 09/27/19 09/27/19 11:17 11:18 11:34 WBC RBC Hgb Hct MCV MCH MCHC RDW Std Deviation RDW Coeff of Stormy Plt Count MPV Immature Gran % (Auto) Neut % (Auto) Lymph % (Auto) [place] % (Auto) Eos % (Auto) Baso % (Auto) Immature Gran # (Auto) Neut # (Auto) Lymph # (Auto) [place] # (Auto) Eos # (Auto) Baso # (Auto) APTT PTT Ratio Sodium Potassium Chloride Carbon Dioxide Anion Gap BUN Creatinine Est Cr Clr Drug Dosing Est GFR ( Amer) Est GFR (Non-Af Amer) BUN/Creatinine Ratio Glucose 228 H POC Glucose 305 H* 270 H Calcium Magnesium Total Bilirubin Direct Bilirubin AST ALT Alkaline Phosphatase Total Protein Albumin Urine Color Urine Appearance Urine pH Ur Specific [place] Urine Protein Urine Glucose (UA) Urine Ketones Urine Blood Urine Nitrite Urine Bilirubin Urine Urobilinogen Ur Leukocyte Esterase Urine WBC (Auto) Urine RBC (Auto) U Hyaline Cast (Auto) U Epithel Cells (Auto) Urine Bacteria (Auto) Blood Type Antibody Screen 08/19/19 08/19/19 08/19/19 12:07 16:05 19:03 WBC RBC Hgb Hct MCV MCH MCHC RDW Std Deviation RDW Coeff of Stormy Plt Count MPV Immature Gran % (Auto) Neut % (Auto) Lymph % (Auto) [place] % (Auto) Eos % (Auto) Baso % (Auto) Immature Gran # (Auto) Neut # (Auto) Lymph # (Auto) [place] # (Auto) Eos # (Auto) Baso # (Auto) APTT 53.9 H* 41.3 H PTT Ratio 2.0 1.5 Sodium Potassium Chloride Carbon Dioxide Anion Gap BUN Creatinine Est Cr Clr Drug Dosing Est GFR ( Amer) Est GFR (Non-Af Amer) BUN/Creatinine Ratio Glucose POC Glucose 157 H Calcium Magnesium Total Bilirubin Direct Bilirubin AST ALT Alkaline Phosphatase Total Protein Albumin Urine Color Urine Appearance Urine pH Ur Specific [place] Urine Protein Urine Glucose (UA) Urine Ketones Urine Blood Urine Nitrite Urine Bilirubin Urine Urobilinogen Ur Leukocyte Esterase Urine WBC (Auto) Urine RBC (Auto) U Hyaline Cast (Auto) U Epithel Cells (Auto) Urine Bacteria (Auto) Blood Type Antibody Screen 08/19/19 08/20/19 08/20/19 20:01 01:10 03:57 WBC RBC Hgb Hct MCV MCH MCHC RDW Std Deviation RDW Coeff of Stormy Plt Count MPV Immature Gran % (Auto) Neut % (Auto) Lymph % (Auto) [place] % (Auto) Eos % (Auto) Baso % (Auto) Immature Gran # (Auto) Neut # (Auto) Lymph # (Auto) [place] # (Auto) Eos # (Auto) Baso # (Auto) APTT PTT Ratio Sodium Potassium Chloride Carbon Dioxide Anion Gap BUN Creatinine Est Cr Clr Drug Dosing Est GFR ( Amer) Est GFR (Non-Af Amer) BUN/Creatinine Ratio Glucose POC Glucose 142 H 146 H 153 H Calcium Magnesium Total Bilirubin Direct Bilirubin AST ALT Alkaline Phosphatase Total Protein Albumin Urine Color Urine Appearance Urine pH Ur Specific [place] Urine Protein Urine Glucose (UA) Urine Ketones Urine Blood Urine Nitrite Urine Bilirubin Urine Urobilinogen Ur Leukocyte Esterase Urine WBC (Auto) Urine RBC (Auto) U Hyaline Cast (Auto) U Epithel Cells (Auto) Urine Bacteria (Auto) Blood Type Antibody Screen 08/20/19 08/20/19 08/20/19 05:00 06:19 06:19 WBC 12.47 H RBC 3.27 L Hgb 9.5 L Hct 28.7 L MCV 87.8 MCH 29.1 MCHC 33.1 RDW Std Deviation 47.6 H RDW Coeff of Stormy 15.0 H Plt Count 332 MPV 9.0 Immature Gran % (Auto) 0.3 Neut % (Auto) 80.6 Lymph % (Auto) 12.7 [place] % (Auto) 6.4 Eos % (Auto) 0.0 Baso % (Auto) 0.0 Immature Gran # (Auto) 0.04 H Neut # (Auto) 10.05 H Lymph # (Auto) 1.58 [place] # (Auto) 0.80 H Eos # (Auto) 0.00 Baso # (Auto) 0.00 APTT 58.3 H* PTT Ratio 2.2 Sodium Potassium Chloride Carbon Dioxide Anion Gap BUN Creatinine Est Cr Clr Drug Dosing Est GFR ( Amer) Est GFR (Non-Af Amer) BUN/Creatinine Ratio Glucose POC Glucose Calcium Magnesium Total Bilirubin Direct Bilirubin AST ALT Alkaline Phosphatase Total Protein Albumin Urine Color Red Urine Appearance Slightly Cloudy A Urine pH 5.0 Ur Specific [place] 1.015 Urine Protein 1+ H Urine Glucose (UA) Negative Urine Ketones Negative Urine Blood 3+ H Urine Nitrite Negative Urine Bilirubin Negative Urine Urobilinogen Negative Ur Leukocyte Esterase 2+ H Urine WBC (Auto) >30 H Urine RBC (Auto) >30 H U Hyaline Cast (Auto) 1-5 U Epithel Cells (Auto) 0-5 Urine Bacteria (Auto) 2+ H Blood Type Antibody Screen 08/20/19 08/20/19 08/20/19 06:19 06:19 07:04 WBC RBC Hgb Hct MCV MCH MCHC RDW Std Deviation RDW Coeff of Stormy Plt Count MPV Immature Gran % (Auto) Neut % (Auto) Lymph % (Auto) [place] % (Auto) Eos % (Auto) Baso % (Auto) Immature Gran # (Auto) Neut # (Auto) Lymph # (Auto) [place] # (Auto) Eos # (Auto) Baso # (Auto) APTT PTT Ratio Sodium 138 Potassium 3.8 Chloride 101 Carbon Dioxide 25 Anion Gap 12.0 H BUN 56 H Creatinine 2.48 H Est Cr Clr Drug Dosing 16.4 Est GFR ( Amer) 20.8 Est GFR (Non-Af Amer) 18.0 BUN/Creatinine Ratio 22.5 H Glucose 189 H POC Glucose 174 H Calcium 8.4 L Magnesium 2.0 Total Bilirubin 0.3 Direct Bilirubin < 0.1 AST 30 ALT 28 Alkaline Phosphatase 92 Total Protein 6.5 Albumin 2.5 L Urine Color Urine Appearance Urine pH Ur Specific [place] Urine Protein Urine Glucose (UA) Urine Ketones Urine Blood Urine Nitrite Urine Bilirubin Urine Urobilinogen Ur Leukocyte Esterase Urine WBC (Auto) Urine RBC (Auto) U Hyaline Cast (Auto) U Epithel Cells (Auto) Urine Bacteria (Auto) Blood Type O Positive Antibody Screen NEGATIVE
[2019-08-20] MEDS ORDERED: cefTRIAXone SODIUM 1,000 MG in DEXTROSE 5% 50 ML IV SCH ×2 (10:00)
[2019-08-20] MEDS: HEPARIN SODIUM/DEXTROSE 25,000 UNITS/500 ML BAG IV SCH (10:12)
--- NOTE | 2019-08-20 10:49 | Pharmacy Report ---
Pharmacy Glycemic Short Note 2 - Date of Service August 20, 2019 - Glycemic Short BSG Results (Last 24 hours): 08/19/19 08/19/19 08/19/19 11:17 11:18 11:34 Glucose 228 H POC Glucose 305 H* 270 H 08/19/19 08/19/19 08/20/19 16:05 20:01 01:10 Glucose POC Glucose 157 H 142 H 146 H 08/20/19 08/20/19 08/20/19 03:57 06:19 07:04 Glucose 189 H POC Glucose 153 H 174 H Outpatient Anti-diabetic Regimen: * Insulin 70/30 - 55 units qam and 35 units qpm * A1c = 9.5 % (08/17/19) ASSESSMENT: 08/20/19: * Patient received 162 units of insulin yesterday * 80 units of basal insulin * 82 units of bolus insulin * IV solu medrol was discontinued on 08/19 PM. Patient is now on prednisone 20 mg BID. BSGs have greatly improved over the past 12 hours. * Will decrease both basal and bolus insulin by 25% (new doses are based on estimated needs of ~ 120 units/day) 08/19/19: * BSGs have been consistently elevated since starting IV SoluMedrol, despite changes to insulin regimen yesterday. * Fasting BSG was 276 mg/dL this morning. * Patient given a supplemental dose of NPH this morning. Novolog parameters tightened after breakfast. * Will add 00 and 04 accu-checks with coverage to provide more continuous coverage overnight. If patient remains significantly hyperglycemic, she may require IV insulin while on high-dose steroids. 08/18/19 * BSGs were well-controlled overnight last night with good fasting BSG today. * Steroids were initiated this morning: SoluMedrol 125mg IV x1, then 40mg IV q8h. This is expected to contribute significantly to steroid-induced hyperglycemia. Expect that patient's insulin needs will be significantly higher. * Additional NPH provided this morning at the time of SoluMedrol dose and Novolog parameters also tightened. * Will continue to adjust regimen as needed. 08/17/19 * Patient presented to [facility] ED on 08/16/19 with shortness of breath * In ED, patient found to be in atrial fibrillation with RVR * BSGs significantly elevated on admission (ranging 207-370 mg/dL yesterday) * 50 units of NPH given last night and insulin drip initiated (unclear of when drip was actually stopped last night) * Heparin gtt currently running at 22 mL/hr * Previous admission data shows that patient generally requires less insulin than outpatient regimen (when not receiving steroids) PLAN FOR INPATIENT GLYCEMIC CONTROL: * Holding outpatient 70/30 insulin and will utilize SC basal/bolus with NPH and novolog * Basal insulin * NPH 30 units SQ BID * Bolus insulin - loosen * NovoLog per scale ACHS or Q6hrs while NPO * Goal Range: Low 110 mg/dL - High 140 mg/dL * Correction Factor: 10 mg/dL/unit * Nutritional / Prandial insulin per carb ratio of 1 unit per 4 grams CHO consumed PLAN FOR DISCHARGE: * Patient's A1c (9.5%) indicates sub-optimal glycemic control. * Outpatient insulin regimen may require adjustment at discharge, particularly if patient will require ongoing steroids. * Please note that the plan above was derived based on current level of insulin resistance and hospital stress. These recommendations are appropriate for inpatient admission only. Plan of care upon discharge will need to be reassessed to avoid potential outpatient hypo/hyperglycemia. Thank you.
--- NOTE | 2019-08-20 12:00 | Pulmonology Progress Note ---
Date of Service August 20, 2019 Assessment & Plan (1) Hematuria, gross: (2) Pleural effusion due to CHF (congestive heart failure): Patient appears to be clearing from a respiratory standpoint with excellent diuresis and decreased pleural effusions. As stated earlier there may be an element of chronic obstructive pulmonary disease with bronchospasm or this could represent cardiac asthma patient continues to improve. Hematuria noted this morning and will be monitored by urology while on anticoagulant therapy. Will recheck chest x-ray and tailor medications as clinical course unfolds. (3) Acute on chronic diastolic heart failure: (4) Pleural effusion, bilateral: (5) Anemia: (6) Acute kidney injury superimposed on CKD: (7) Paroxysmal atrial fibrillation: (8) Aortic stenosis: (9) S/P cardiac catheterization: (10) Pancreatitis: Subjective 78-year-old white female complex medical hist with bilateral pleural effusion and hypoxemia with presentation of acute on chronic diastolic heart failure and acute kidney injury superimposed on chronic renal disease seems better from a respiratory standpoint this morning . Currently hematuria was noted last evening patient has been evaluated by urology. Patient was seen by renal today and the Lasix dose was increased to 60 mg IV 3 times daily she appears to be tolerating. She clearly has signs of valvular heart disease on top of diastolic heart failure appears to be responding to therapy. No role for thoracentesis at this juncture. Urology felt it was okay to restart anticoagulant therapy and monitor the hematuria. [place] this was yesterday catheter irritation. Venous Doppler study showed no evidence for acute DVT and the abdominal pelvic CT scan done yesterday afternoon showed no evidence of a retroperitoneal hematoma but there was evidence for chronic pancreatitis with moderate dilatation of the pancreatic duct. Bilateral effusions with associated atelectasis were incidentally noted. Review of Systems Constitutional: no problem reported Eyes: no problem reported Ear, Nose, Mouth, Throat: no problem reported Respiratory: no problem reported Cardiovascular: no problem reported Gastrointestinal: no problem reported Genitourinary: no problem reported Musculoskeletal: no problem reported Integumentary: no problem reported Neurologic: no problem reported Psychiatric: no problem reported Endocrine: no problem reported Hematologic / Lymphatic: no problem reported Allergy / Immunological: no problem reported Physical Exam Constitutional: well developed and well nourished; no acute distress Eyes: PERRL, conjunctivae normal, anicteric sclerae ENMT: external ear and nose normal, oropharynx normal Neck: trachea midline, no thyromegaly Respiratory: normal respiratory effort and + prolonged expiratory phase Auscultation: lungs clear to auscultation bilaterally, + diminished lung sounds and + wheezes (Occasional wheeze but improved aeration at the bases) Cardiovascular: RRR, no murmur, no edema Heart Sounds: + murmur (Apical systolic and aortic murmurs are unchanged) Palpation: normal PMI; no thrill Gastrointestinal (Abdomen): normal bowel sounds, soft, nontender, no hepatosplenomegaly Musculoskeletal: no cyanosis or clubbing, extremities motor strength 5/5 Gait: normal gait Skin: no rashes, warm and dry Neurologic: PERRL, EOMI, accommodation nl, no face palsy, no dysarthria Psychiatric: A+Ox3, euthymic affect Lymphatic: no cervical or axillary lymphadenopathy Results & Data Vital Signs (Past 12 Hours) Vital Signs Temp Pulse Pulse Resp BP Pulse Ox 08/20/19 08:30 67 08/20/19 07:13 36.8 C 63 18 119/67 97 08/20/19 07:00 64 18 97 08/20/19 03:54 36.3 C L 74 16 133/83 97 08/20/19 00:36 71 20 95 Laboratory Results Abnormal Labs 08/16/19 08/16/19 08/16/19 13:50 13:50 16:21 WBC 12.12 H RBC 3.47 L Hgb 10.1 L Hct 30.7 L RDW Std Deviation 47.8 H RDW Coeff of Stormy 15.0 H Immature Gran # (Auto) 0.03 H Neut # (Auto) 8.66 H Carver # (Auto) 0.81 H INR APTT ABG pH ABG pCO2 31 L ABG pO2 96 H ABG O2 Saturation 97.1 H Anion Gap BUN 23 H Creatinine 1.83 H BUN/Creatinine Ratio Glucose 365 H* POC Glucose Hemoglobin A1c Calcium 8.2 L AST 13 L Total Protein Albumin 2.7 L Albumin/Globulin Ratio 0.7 L Lipase 56 L Beta-Hydroxybutyric Acd 5.13 H Urine Appearance Urine Protein Urine Ketones Urine Blood Ur Leukocyte Esterase Urine WBC (Auto) Urine RBC (Auto) U Epithel Cells (Auto) Urine Bacteria (Auto) Amorphous Sediment 08/16/19 08/16/19 08/16/19 18:53 18:54 20:40 WBC RBC Hgb Hct RDW Std Deviation RDW Coeff of Stormy Immature Gran # (Auto) Neut # (Auto) Carver # (Auto) INR APTT ABG pH ABG pCO2 ABG pO2 ABG O2 Saturation Anion Gap BUN Creatinine BUN/Creatinine Ratio Glucose POC Glucose 361 H* 370 H* 276 H Hemoglobin A1c Calcium AST Total Protein Albumin Albumin/Globulin Ratio Lipase Beta-Hydroxybutyric Acd Urine Appearance Urine Protein Urine Ketones Urine Blood Ur Leukocyte Esterase Urine WBC (Auto) Urine RBC (Auto) U Epithel Cells (Auto) Urine Bacteria (Auto) Amorphous Sediment 08/16/19 08/16/19 08/16/19 21:34 22:25 23:26 WBC RBC Hgb Hct RDW Std Deviation RDW Coeff of Stormy Immature Gran # (Auto) Neut # (Auto) Carver # (Auto) INR APTT ABG pH ABG pCO2 ABG pO2 ABG O2 Saturation Anion Gap BUN Creatinine BUN/Creatinine Ratio Glucose POC Glucose 245 H 207 H 176 H Hemoglobin A1c Calcium AST Total Protein Albumin Albumin/Globulin Ratio Lipase Beta-Hydroxybutyric Acd Urine Appearance Urine Protein Urine Ketones Urine Blood Ur Leukocyte Esterase Urine WBC (Auto) Urine RBC (Auto) U Epithel Cells (Auto) Urine Bacteria (Auto) Amorphous Sediment 08/17/19 08/17/19 08/17/19 00:33 03:08 03:19 WBC 11.67 H RBC 3.02 L Hgb 9.0 L Hct 26.8 L RDW Std Deviation 48.4 H RDW Coeff of Stormy 15.1 H Immature Gran # (Auto) 0.03 H Neut # (Auto) 8.76 H Carver # (Auto) 0.82 H INR APTT ABG pH ABG pCO2 ABG pO2 ABG O2 Saturation Anion Gap BUN Creatinine BUN/Creatinine Ratio Glucose POC Glucose 116 H 181 H Hemoglobin A1c Calcium AST Total Protein Albumin Albumin/Globulin Ratio Lipase Beta-Hydroxybutyric Acd Urine Appearance Urine Protein Urine Ketones Urine Blood Ur Leukocyte Esterase Urine WBC (Auto) Urine RBC (Auto) U Epithel Cells (Auto) Urine Bacteria (Auto) Amorphous Sediment 08/17/19 08/17/19 08/17/19 03:19 03:19 03:19 WBC RBC Hgb Hct RDW Std Deviation RDW Coeff of Stormy Immature Gran # (Auto) Neut # (Auto) Carver # (Auto) INR APTT 44.7 H ABG pH ABG pCO2 ABG pO2 ABG O2 Saturation Anion Gap BUN 27 H Creatinine 2.32 H D BUN/Creatinine Ratio Glucose 180 H POC Glucose Hemoglobin A1c 9.5 H Calcium 7.9 L AST 12 L Total Protein 6.1 L Albumin 2.5 L Albumin/Globulin Ratio 0.7 L Lipase Beta-Hydroxybutyric Acd Urine Appearance Urine Protein Urine Ketones Urine Blood Ur Leukocyte Esterase Urine WBC (Auto) Urine RBC (Auto) U Epithel Cells (Auto) Urine Bacteria (Auto) Amorphous Sediment 08/17/19 08/17/19 08/17/19 07:23 10:01 13:41 WBC RBC Hgb Hct RDW Std Deviation RDW Coeff of Stormy Immature Gran # (Auto) Neut # (Auto) Carver # (Auto) INR APTT 90.0 H* ABG pH ABG pCO2 ABG pO2 ABG O2 Saturation Anion Gap BUN Creatinine BUN/Creatinine Ratio Glucose POC Glucose 252 H 49 L* Hemoglobin A1c Calcium AST Total Protein Albumin Albumin/Globulin Ratio Lipase Beta-Hydroxybutyric Acd Urine Appearance Urine Protein Urine Ketones Urine Blood Ur Leukocyte Esterase Urine WBC (Auto) Urine RBC (Auto) U Epithel Cells (Auto) Urine Bacteria (Auto) Amorphous Sediment 08/17/19 08/17/19 08/17/19 13:45 14:01 14:21 WBC RBC Hgb Hct RDW Std Deviation RDW Coeff of Stormy Immature Gran # (Auto) Neut # (Auto) Carver # (Auto) INR APTT ABG pH ABG pCO2 ABG pO2 ABG O2 Saturation Anion Gap BUN Creatinine BUN/Creatinine Ratio Glucose POC Glucose 55 L* 62 L* 55 L* Hemoglobin A1c Calcium AST Total Protein Albumin Albumin/Globulin Ratio Lipase Beta-Hydroxybutyric Acd Urine Appearance Urine Protein Urine Ketones Urine Blood Ur Leukocyte Esterase Urine WBC (Auto) Urine RBC (Auto) U Epithel Cells (Auto) Urine Bacteria (Auto) Amorphous Sediment 08/17/19 08/17/19 08/17/19 14:44 16:57 17:20 WBC RBC Hgb Hct RDW Std Deviation RDW Coeff of Stormy Immature Gran # (Auto) Neut # (Auto) Carver # (Auto) INR APTT 65.1 H* ABG pH ABG pCO2 ABG pO2 ABG O2 Saturation Anion Gap BUN Creatinine BUN/Creatinine Ratio Glucose POC Glucose 64 L* 103 H Hemoglobin A1c Calcium AST Total Protein Albumin Albumin/Globulin Ratio Lipase Beta-Hydroxybutyric Acd Urine Appearance Urine Protein Urine Ketones Urine Blood Ur Leukocyte Esterase Urine WBC (Auto) Urine RBC (Auto) U Epithel Cells (Auto) Urine Bacteria (Auto) Amorphous Sediment 08/17/19 08/17/19 08/18/19 21:03 21:10 00:52 WBC RBC Hgb Hct RDW Std Deviation RDW Coeff of Stormy Immature Gran # (Auto) Neut # (Auto) Carver # (Auto) INR APTT ABG pH ABG pCO2 ABG pO2 ABG O2 Saturation Anion Gap BUN Creatinine BUN/Creatinine Ratio Glucose POC Glucose 143 H 153 H Hemoglobin A1c Calcium AST Total Protein Albumin Albumin/Globulin Ratio Lipase Beta-Hydroxybutyric Acd Urine Appearance Turbid A Urine Protein 1+ H Urine Ketones Trace H Urine Blood 3+ H Ur Leukocyte Esterase 1+ H Urine WBC (Auto) Urine RBC (Auto) 10-30 H U Epithel Cells (Auto) >30 H Urine Bacteria (Auto) Amorphous Sediment Present A 08/18/19 08/18/19 08/18/19 03:53 06:03 06:03 WBC RBC 3.16 L Hgb 9.3 L Hct 28.4 L RDW Std Deviation 49.4 H RDW Coeff of Stormy 15.2 H Immature Gran # (Auto) Neut # (Auto) Carver # (Auto) INR APTT ABG pH ABG pCO2 ABG pO2 ABG O2 Saturation Anion Gap BUN 31 H Creatinine 2.38 H BUN/Creatinine Ratio Glucose 121 H POC Glucose 110 H Hemoglobin A1c Calcium AST Total Protein Albumin Albumin/Globulin Ratio Lipase Beta-Hydroxybutyric Acd Urine Appearance Urine Protein Urine Ketones Urine Blood Ur Leukocyte Esterase Urine WBC (Auto) Urine RBC (Auto) U Epithel Cells (Auto) Urine Bacteria (Auto) Amorphous Sediment 08/18/19 08/18/19 08/18/19 06:03 07:25 10:27 WBC RBC Hgb Hct RDW Std Deviation RDW Coeff of Stormy Immature Gran # (Auto) Neut # (Auto) Carver # (Auto) INR APTT 52.7 H* ABG pH 7.52 H* ABG pCO2 27 L ABG pO2 78 L ABG O2 Saturation 96.0 H Anion Gap BUN Creatinine BUN/Creatinine Ratio Glucose POC Glucose 118 H Hemoglobin A1c Calcium AST Total Protein Albumin Albumin/Globulin Ratio Lipase Beta-Hydroxybutyric Acd Urine Appearance Urine Protein Urine Ketones Urine Blood Ur Leukocyte Esterase Urine WBC (Auto) Urine RBC (Auto) U Epithel Cells (Auto) Urine Bacteria (Auto) Amorphous Sediment 08/18/19 08/18/19 08/18/19 11:17 12:47 16:26 WBC RBC Hgb Hct RDW Std Deviation RDW Coeff of Stormy Immature Gran # (Auto) Neut # (Auto) Carver # (Auto) INR APTT ABG pH ABG pCO2 ABG pO2 ABG O2 Saturation Anion Gap BUN Creatinine BUN/Creatinine Ratio Glucose POC Glucose 196 H 190 H 178 H Hemoglobin A1c Calcium AST Total Protein Albumin Albumin/Globulin Ratio Lipase Beta-Hydroxybutyric Acd Urine Appearance Urine Protein Urine Ketones Urine Blood Ur Leukocyte Esterase Urine WBC (Auto) Urine RBC (Auto) U Epithel Cells (Auto) Urine Bacteria (Auto) Amorphous Sediment 08/18/19 08/19/19 08/19/19 20:27 05:35 05:36 WBC RBC Hgb Hct RDW Std Deviation RDW Coeff of Stormy Immature Gran # (Auto) Neut # (Auto) Carver # (Auto) INR 1.2 H APTT ABG pH ABG pCO2 ABG pO2 ABG O2 Saturation Anion Gap BUN 43 H Creatinine 2.42 H BUN/Creatinine Ratio Glucose 221 H POC Glucose 273 H Hemoglobin A1c Calcium AST Total Protein Albumin Albumin/Globulin Ratio Lipase Beta-Hydroxybutyric Acd Urine Appearance Urine Protein Urine Ketones Urine Blood Ur Leukocyte Esterase Urine WBC (Auto) Urine RBC (Auto) U Epithel Cells (Auto) Urine Bacteria (Auto) Amorphous Sediment 08/19/19 08/19/19 08/19/19 07:20 11:17 11:18 WBC RBC Hgb Hct RDW Std Deviation RDW Coeff of Stormy Immature Gran # (Auto) Neut # (Auto) Carver # (Auto) INR APTT ABG pH ABG pCO2 ABG pO2 ABG O2 Saturation Anion Gap BUN Creatinine BUN/Creatinine Ratio Glucose POC Glucose 276 H 305 H* 270 H Hemoglobin A1c Calcium AST Total Protein Albumin Albumin/Globulin Ratio Lipase Beta-Hydroxybutyric Acd Urine Appearance Urine Protein Urine Ketones Urine Blood Ur Leukocyte Esterase Urine WBC (Auto) Urine RBC (Auto) U Epithel Cells (Auto) Urine Bacteria (Auto) Amorphous Sediment 08/19/19 08/19/19 08/19/19 11:34 12:07 16:05 WBC RBC Hgb Hct RDW Std Deviation RDW Coeff of Stormy Immature Gran # (Auto) Neut # (Auto) Carver # (Auto) INR APTT 53.9 H* ABG pH ABG pCO2 ABG pO2 ABG O2 Saturation Anion Gap BUN Creatinine BUN/Creatinine Ratio Glucose 228 H POC Glucose 157 H Hemoglobin A1c Calcium AST Total Protein Albumin Albumin/Globulin Ratio Lipase Beta-Hydroxybutyric Acd Urine Appearance Urine Protein Urine Ketones Urine Blood Ur Leukocyte Esterase Urine WBC (Auto) Urine RBC (Auto) U Epithel Cells (Auto) Urine Bacteria (Auto) Amorphous Sediment 08/19/19 08/19/19 08/20/19 19:03 20:01 01:10 WBC RBC Hgb Hct RDW Std Deviation RDW Coeff of Stormy Immature Gran # (Auto) Neut # (Auto) Carver # (Auto) INR APTT 41.3 H ABG pH ABG pCO2 ABG pO2 ABG O2 Saturation Anion Gap BUN Creatinine BUN/Creatinine Ratio Glucose POC Glucose 142 H 146 H Hemoglobin A1c Calcium AST Total Protein Albumin Albumin/Globulin Ratio Lipase Beta-Hydroxybutyric Acd Urine Appearance Urine Protein Urine Ketones Urine Blood Ur Leukocyte Esterase Urine WBC (Auto) Urine RBC (Auto) U Epithel Cells (Auto) Urine Bacteria (Auto) Amorphous Sediment 08/20/19 08/20/19 08/20/19 03:57 05:00 06:19 WBC 12.47 H RBC 3.27 L Hgb 9.5 L Hct 28.7 L RDW Std Deviation 47.6 H RDW Coeff of Stormy 15.0 H Immature Gran # (Auto) 0.04 H Neut # (Auto) 10.05 H Carver # (Auto) 0.80 H INR APTT ABG pH ABG pCO2 ABG pO2 ABG O2 Saturation Anion Gap BUN Creatinine BUN/Creatinine Ratio Glucose POC Glucose 153 H Hemoglobin A1c Calcium AST Total Protein Albumin Albumin/Globulin Ratio Lipase Beta-Hydroxybutyric Acd Urine Appearance Slightly Cloudy A Urine Protein 1+ H Urine Ketones Urine Blood 3+ H Ur Leukocyte Esterase 2+ H Urine WBC (Auto) >30 H Urine RBC (Auto) >30 H U Epithel Cells (Auto) Urine Bacteria (Auto) 2+ H Amorphous Sediment 08/20/19 08/20/19 08/20/19 06:19 06:19 07:04 WBC RBC Hgb Hct RDW Std Deviation RDW Coeff of Stormy Immature Gran # (Auto) Neut # (Auto) Carver # (Auto) INR APTT 58.3 H* ABG pH ABG pCO2 ABG pO2 ABG O2 Saturation Anion Gap 12.0 H BUN 56 H Creatinine 2.48 H BUN/Creatinine Ratio 22.5 H Glucose 189 H POC Glucose 174 H Hemoglobin A1c Calcium 8.4 L AST Total Protein Albumin 2.5 L Albumin/Globulin Ratio Lipase Beta-Hydroxybutyric Acd Urine Appearance Urine Protein Urine Ketones Urine Blood Ur Leukocyte Esterase Urine WBC (Auto) Urine RBC (Auto) U Epithel Cells (Auto) Urine Bacteria (Auto) Amorphous Sediment 08/20/19 11:45 WBC RBC Hgb Hct RDW Std Deviation RDW Coeff of Stormy Immature Gran # (Auto) Neut # (Auto) Carver # (Auto) INR APTT ABG pH ABG pCO2 ABG pO2 ABG O2 Saturation Anion Gap BUN Creatinine BUN/Creatinine Ratio Glucose POC Glucose 168 H Hemoglobin A1c Calcium AST Total Protein Albumin Albumin/Globulin Ratio Lipase Beta-Hydroxybutyric Acd Urine Appearance Urine Protein Urine Ketones Urine Blood Ur Leukocyte Esterase Urine WBC (Auto) Urine RBC (Auto) U Epithel Cells (Auto) Urine Bacteria (Auto) Amorphous Sediment Medications Administered Current Inpatient Medications Acetaminophen (Tylenol) 650 mg PO Q4H PRN PRN Reason: Pain or Fever Stop: 09/15/19 18:17 Last Admin: 08/19/19 11:16 Dose: 650 mg Documented by: Al Hydrox/Mg Hydrox/Simethicone (Maalox) 15 ml PO Q4H PRN PRN Reason: Dyspepsia Stop: 09/15/19 18:17 Aspirin (Ecotrin Ectab) 81 mg PO QPM [facility] Stop: 09/15/19 20:59 Last Admin: 08/19/19 20:07 Dose: 81 mg Documented by: Atorvastatin Calcium (Lipitor) 40 mg PO QAM [facility] Stop: 09/16/19 08:59 Last Admin: 08/20/19 08:10 Dose: 40 mg Documented by: Budesonide (Pulmicort Respules) 0.5 mg NEB BIDR [facility] Stop: 09/15/19 18:59 Last Admin: 08/20/19 06:56 Dose: 0.5 mg Documented by: Clopidogrel Bisulfate (Plavix) 75 mg PO QAM [facility] Stop: 09/16/19 08:59 Last Admin: 08/19/19 08:40 Dose: 75 mg Documented by: Dextrose (Dextrose 50%) 25 - 50 ml IV UD PRN; Protocol PRN Reason: Hypoglycemia Protocol Stop: 09/15/19 18:17 Diltiazem HCl (Cardizem) 60 mg PO Q8H JOHN Stop: 09/15/19 19:29 Last Admin: 08/20/19 11:48 Dose: 60 mg Documented by: Gabapentin (Neurontin) 800 mg PO HS JOHN Stop: 09/15/19 20:59 Last Admin: 08/16/19 20:48 Dose: 800 mg Documented by: Glucagon (Glucagen) 1 mg SQ UD PRN; Protocol PRN Reason: Hypoglycemia Protocol Stop: 09/15/19 18:17 Glucose (Glucose 40%) 15 - 30 gm PO UD PRN; Protocol PRN Reason: Hypoglycemia Protocol Stop: 09/15/19 18:17 Glucose (Dex4 Glucose) 4 - 8 tabs PO UD PRN; Protocol PRN Reason: Hypoglycemia Protocol Stop: 09/15/19 18:17 Heparin Sodium (Porcine) (Heparin Sod 100 Unit/Ml Flush) 5 ml FLUSH PRN PRN PRN Reason: Flush Stop: 09/16/19 00:14 Last Admin: 08/19/19 11:39 Dose: 5 ml Documented by: Heparin Sodium/Dextrose (Heparin Sodium/Dextrose) 25,000 units in 500 mls @ 13 mls/hr IV .Q24H JOHN; Protocol Stop: 09/19/19 09:29 Last Admin: 08/20/19 10:12 Dose: 650 units/hr, 13 mls/hr Documented by: Furosemide 60 mg/ Syringe 6 mls @ 4 mls/min IV Q4H JOHN Stop: 09/19/19 15:59 Ceftriaxone Sodium 1,000 mg/ (Dextrose) 50 mls @ 100 mls/hr IV Q24H JOHN; Protocol Stop: 08/30/19 09:59 Last Infusion: 08/20/19 10:47 Dose: Infused Documented by: Insulin Aspart (Novolog Flexpen) 0 units SC ACHS [facility] Stop: 09/15/19 18:17 Last Admin: 08/20/19 11:49 Dose: 13 units Documented by: Insulin Human NPH (Novolin N Nph) 30 units SC BIDM JOHN; Protocol Stop: 09/17/19 16:59 Last Admin: 08/20/19 08:04 Dose: 30 units Documented by: Ipratropium [place] (Atrovent 0.02% 0.5mg/2.5ml) 0.5 mg INH Q6R JOHN Stop: 09/17/19 10:14 Last Admin: 08/20/19 06:56 Dose: 0.5 mg Documented by: Isosorbide Mononitrate (Imdur Extended Rel) 30 mg PO QAM JOHN Stop: 09/16/19 08:59 Last Admin: 08/20/19 08:10 Dose: 30 mg Documented by: Levalbuterol HCl (Xopenex 0.63 Mg/3 Ml Neb) 0.63 mg NEB Q6R JOHN Stop: 09/17/19 10:14 Last Admin: 08/20/19 06:57 Dose: 0.63 mg Documented by: Lidocaine (Lidoderm 5%) 1 patch TD QAM JOHN Stop: 09/18/19 15:59 Last Admin: 08/20/19 08:10 Dose: 1 patch Documented by: Lorazepam (Ativan) 0.5 mg PO Q6 PRN PRN Reason: Anxiety Stop: 09/15/19 18:17 Magnesium Hydroxide (Milk Of Magnesia) 30 ml PO Q12H PRN PRN Reason: Constipation Stop: 09/15/19 18:17 Magnesium Oxide (Mag-Ox) 400 mg PO QPM JOHN Stop: 09/15/19 20:59 Last Admin: 08/19/19 20:07 Dose: 400 mg Documented by: Metoprolol Tartrate (Lopressor) 25 mg PO BID JOHN Stop: 09/15/19 20:59 Last Admin: 08/20/19 08:10 Dose: 25 mg Documented by: Mirtazapine (Remeron Solutab) 45 mg PO HS JOHN Stop: 09/15/19 20:59 Last Admin: 08/16/19 20:49 Dose: 45 mg Documented by: Miscellaneous (Carbohydrates For Hypoglycemia) 15 - 30 gm PO UD PRN PRN Reason: Hypoglycemia Treatment Stop: 09/15/19 18:17 Last Admin: 08/17/19 14:50 Dose: 30 gm Documented by: Miscellaneous (Remove Lidoderm Patch) 1 ea N/A DAILY@2100 JOHN Stop: 09/18/19 20:59 Last Admin: 08/19/19 20:10 Dose: 1 ea Documented by: Miscellaneous Information (Consult Glycemic Management Pharmacy) 1 ea N/A UD PRN; Protocol PRN Reason: Consult Stop: 09/15/19 18:37 Miscellaneous Information (Pharmacy Consult) 1 ea N/A UD PRN PRN Reason: Consult Stop: 09/19/19 09:51 Montelukast Sodium (Singulair) 10 mg PO HS JOHN Stop: 09/15/19 20:59 Last Admin: 08/19/19 20:07 Dose: 10 mg Documented by: Ondansetron HCl (Zofran) 4 mg IV Q6H PRN PRN Reason: Nausea Stop: 09/15/19 18:17 Pantoprazole Sodium (Protonix) 40 mg PO BID JOHN Stop: 09/15/19 20:59 Last Admin: 08/20/19 08:10 Dose: 40 mg Documented by: Polyethylene Glycol (Miralax Powder Packet) 17 gm PO DAILY PRN PRN Reason: Constipation Stop: 09/15/19 18:17 Prednisone (Prednisone) 20 mg PO BID JOHN Stop: 09/18/19 20:59 Last Admin: 08/20/19 08:10 Dose: 20 mg Documented by: Ropinirole HCl (Requip) 1 mg PO HS [facility] Stop: 09/15/19 20:59 Last Admin: 08/16/19 20:49 Dose: 1 mg Documented by: Tramadol HCl (Ultram) 50 mg PO Q12H PRN PRN Reason: Pain Stop: 09/18/19 15:33 Last Admin: 08/19/19 16:38 Dose: 50 mg Documented by: Trazodone HCl (Desyrel) 50 mg PO HS [facility] Stop: 09/15/19 20:59 Last Admin: 08/19/19 20:07 Dose: 50 mg Documented by: PG Care Time/CCT Total # of Minutes Spent Total Time Spent with Patient: Total time spent is greater than 50% in coordination of care (as documented) at patient's floor/unit and/or counseling patient:
--- NOTE | 2019-08-20 12:20 | Cardiology Progress Note ---
Date of Service August 20, 2019 Assessment & Plan (1) Paroxysmal atrial fibrillation: (2) Acute on chronic diastolic heart failure: (3) Pleural effusion, bilateral: (4) LBBB (left bundle branch block): (5) Aortic stenosis: (6) CAD (coronary artery disease): (7) History of CVA (cerebrovascular accident): (8) COPD (chronic obstructive pulmonary disease): (9) Acute kidney injury superimposed on CKD: Urology input appreciated. Agree with restarting intravenous heparin. Continue to monitor over the next 24 hours with plans to restart Coumadin if no recurrent or significant hematuria. Patient will not require bridging therapy at time of discharge. Goal INR of 2.0-3.0. No evidence of recurrent atrial fibrillation overnight. Transition short acting diltiazem to Cardizem CD 120 mg daily. Continue metoprolol tartrate. Transition to metoprolol succinate at time of discharge. Aspirin may be discontinued when INR is therapeutic. Patient will continue Plavix plus Coumadin long-term. She must continue Plavix at this time due to recent coronary intervention (GAETANO x2, Lcx LPL sajan RCA, 01/2019 in setting of NSTEMI). Continue diuretic therapy per direction of nephrology with repeat basic metabolic panel in a.m. Subjective Patient seen and examined at the bedside. Episode of hematuria noted overnight. Urology consulted recommending continued observation and treatment of urinary tract infection. Intravenous heparin resumed. Coumadin remains on hold. Dual antiplatelet therapy continued as well. No evidence of recurrent atrial fibrillation on telemetry. Fluid balance negative approximately 1 L over the past 24 hours. Patient continues to improve clinically. Reports decreased shortness of breath today. No orthopnea or PND. Review of Systems Review of Systems: All systems reviewed & are unremarkable except as noted in HPI & below Physical Exam Physical Exam: General: NAD, AAO x3, well nourished. Chronically ill. HEENT: Normocephalic. Atraumatic. Conjunctiva pink, no scleral icterus. Neck: No carotid bruits, the carotid upstrokes are brisk. No JVD. No HJR Heart: Regular normal S-1 and S-2. 2-3/6Low pitched mid peaking systolic ejection murmur heard best at the right second intercostal space. PMI is not displaced. No RV heave. Lungs: Diminished breath sounds at the bases bilaterally. No rales, rhonchi, or expiratory wheezing. Abdomen: Normal bowel sounds. Soft. Nontender. No masses or organomegaly. No abdominal bruits. Extremities: No clubbing, cyanosis, or edema. Pulses: radial=2/4, Dorsalis pedis =2/4, posterior tibial=2/4. Neuro: Cranial nerves grossly intact. No focal motor deficit. Results & Data Vital Signs (Past 12 Hours) Vital Signs Temp Pulse Pulse Resp BP Pulse Ox 08/20/19 08:30 67 08/20/19 07:13 36.8 C 63 18 119/67 97 08/20/19 07:00 64 18 97 08/20/19 03:54 36.3 C L 74 16 133/83 97 08/20/19 00:36 71 20 95 Laboratory Results Laboratory Results - last 24 hr 08/19/19 08/19/19 08/19/19 12:07 16:05 19:03 WBC RBC Hgb Hct MCV MCH MCHC RDW Std Deviation RDW Coeff of Stormy Plt Count MPV Immature Gran % (Auto) Neut % (Auto) Lymph % (Auto) [place] % (Auto) Eos % (Auto) Baso % (Auto) Immature Gran # (Auto) Neut # (Auto) Lymph # (Auto) [place] # (Auto) Eos # (Auto) Baso # (Auto) APTT 53.9 H* 41.3 H PTT Ratio 2.0 1.5 Sodium Potassium Chloride Carbon Dioxide Anion Gap BUN Creatinine Est Cr Clr Drug Dosing Est GFR ( Amer) Est GFR (Non-Af Amer) BUN/Creatinine Ratio Glucose POC Glucose 157 H Calcium Magnesium Total Bilirubin Direct Bilirubin AST ALT Alkaline Phosphatase Total Protein Albumin Urine Color Urine Appearance Urine pH Ur Specific [place] Urine Protein Urine Glucose (UA) Urine Ketones Urine Blood Urine Nitrite Urine Bilirubin Urine Urobilinogen Ur Leukocyte Esterase Urine WBC (Auto) Urine RBC (Auto) U Hyaline Cast (Auto) U Epithel Cells (Auto) Urine Bacteria (Auto) Blood Type Antibody Screen 08/19/19 08/20/19 08/20/19 20:01 01:10 03:57 WBC RBC Hgb Hct MCV MCH MCHC RDW Std Deviation RDW Coeff of Stormy Plt Count MPV Immature Gran % (Auto) Neut % (Auto) Lymph % (Auto) [place] % (Auto) Eos % (Auto) Baso % (Auto) Immature Gran # (Auto) Neut # (Auto) Lymph # (Auto) [place] # (Auto) Eos # (Auto) Baso # (Auto) APTT PTT Ratio Sodium Potassium Chloride Carbon Dioxide Anion Gap BUN Creatinine Est Cr Clr Drug Dosing Est GFR ( Amer) Est GFR (Non-Af Amer) BUN/Creatinine Ratio Glucose POC Glucose 142 H 146 H 153 H Calcium Magnesium Total Bilirubin Direct Bilirubin AST ALT Alkaline Phosphatase Total Protein Albumin Urine Color Urine Appearance Urine pH Ur Specific [place] Urine Protein Urine Glucose (UA) Urine Ketones Urine Blood Urine Nitrite Urine Bilirubin Urine Urobilinogen Ur Leukocyte Esterase Urine WBC (Auto) Urine RBC (Auto) U Hyaline Cast (Auto) U Epithel Cells (Auto) Urine Bacteria (Auto) Blood Type Antibody Screen 08/20/19 08/20/19 08/20/19 05:00 06:19 06:19 WBC 12.47 H RBC 3.27 L Hgb 9.5 L Hct 28.7 L MCV 87.8 MCH 29.1 MCHC 33.1 RDW Std Deviation 47.6 H RDW Coeff of Stormy 15.0 H Plt Count 332 MPV 9.0 Immature Gran % (Auto) 0.3 Neut % (Auto) 80.6 Lymph % (Auto) 12.7 [place] % (Auto) 6.4 Eos % (Auto) 0.0 Baso % (Auto) 0.0 Immature Gran # (Auto) 0.04 H Neut # (Auto) 10.05 H Lymph # (Auto) 1.58 [place] # (Auto) 0.80 H Eos # (Auto) 0.00 Baso # (Auto) 0.00 APTT 58.3 H* PTT Ratio 2.2 Sodium Potassium Chloride Carbon Dioxide Anion Gap BUN Creatinine Est Cr Clr Drug Dosing Est GFR ( Amer) Est GFR (Non-Af Amer) BUN/Creatinine Ratio Glucose POC Glucose Calcium Magnesium Total Bilirubin Direct Bilirubin AST ALT Alkaline Phosphatase Total Protein Albumin Urine Color Red Urine Appearance Slightly Cloudy A Urine pH 5.0 Ur Specific [place] 1.015 Urine Protein 1+ H Urine Glucose (UA) Negative Urine Ketones Negative Urine Blood 3+ H Urine Nitrite Negative Urine Bilirubin Negative Urine Urobilinogen Negative Ur Leukocyte Esterase 2+ H Urine WBC (Auto) >30 H Urine RBC (Auto) >30 H U Hyaline Cast (Auto) 1-5 U Epithel Cells (Auto) 0-5 Urine Bacteria (Auto) 2+ H Blood Type Antibody Screen 08/20/19 08/20/19 08/20/19 06:19 06:19 07:04 WBC RBC Hgb Hct MCV MCH MCHC RDW Std Deviation RDW Coeff of Stormy Plt Count MPV Immature Gran % (Auto) Neut % (Auto) Lymph % (Auto) [place] % (Auto) Eos % (Auto) Baso % (Auto) Immature Gran # (Auto) Neut # (Auto) Lymph # (Auto) [place] # (Auto) Eos # (Auto) Baso # (Auto) APTT PTT Ratio Sodium 138 Potassium 3.8 Chloride 101 Carbon Dioxide 25 Anion Gap 12.0 H BUN 56 H Creatinine 2.48 H Est Cr Clr Drug Dosing 16.4 Est GFR ( Amer) 20.8 Est GFR (Non-Af Amer) 18.0 BUN/Creatinine Ratio 22.5 H Glucose 189 H POC Glucose 174 H Calcium 8.4 L Magnesium 2.0 Total Bilirubin 0.3 Direct Bilirubin < 0.1 AST 30 ALT 28 Alkaline Phosphatase 92 Total Protein 6.5 Albumin 2.5 L Urine Color Urine Appearance Urine pH Ur Specific [place] Urine Protein Urine Glucose (UA) Urine Ketones Urine Blood Urine Nitrite Urine Bilirubin Urine Urobilinogen Ur Leukocyte Esterase Urine WBC (Auto) Urine RBC (Auto) U Hyaline Cast (Auto) U Epithel Cells (Auto) Urine Bacteria (Auto) Blood Type O Positive Antibody Screen NEGATIVE 08/20/19 11:45 WBC RBC Hgb Hct MCV MCH MCHC RDW Std Deviation RDW Coeff of Stormy Plt Count MPV Immature Gran % (Auto) Neut % (Auto) Lymph % (Auto) [place] % (Auto) Eos % (Auto) Baso % (Auto) Immature Gran # (Auto) Neut # (Auto) Lymph # (Auto) [place] # (Auto) Eos # (Auto) Baso # (Auto) APTT PTT Ratio Sodium Potassium Chloride Carbon Dioxide Anion Gap BUN Creatinine Est Cr Clr Drug Dosing Est GFR ( Amer) Est GFR (Non-Af Amer) BUN/Creatinine Ratio Glucose POC Glucose 168 H Calcium Magnesium Total Bilirubin Direct Bilirubin AST ALT Alkaline Phosphatase Total Protein Albumin Urine Color Urine Appearance Urine pH Ur Specific [place] Urine Protein Urine Glucose (UA) Urine Ketones Urine Blood Urine Nitrite Urine Bilirubin Urine Urobilinogen Ur Leukocyte Esterase Urine WBC (Auto) Urine RBC (Auto) U Hyaline Cast (Auto) U Epithel Cells (Auto) Urine Bacteria (Auto) Blood Type Antibody Screen Diagnostic Findings Telemetry demonstrates sinus rhythm. No recurrent atrial fibrillation. (1) CAD (coronary artery disease) Associated angina: with unspecified angina Coronary Disease-Associated Artery/Lesion type: [place] artery [place] vs. transplanted heart: [place] heart Qualified Code(s): I25.119 - Atherosclerotic heart disease of [place] coronary artery with unspecified angina pectoris
[2019-08-20] MEDS: dilTIAZem HCL 120 MG CAPCR PO SCH (14:22)
[2019-08-20 16:28] LABS: Partial Thromboplastin Ratio 1.2; Partial Thromboplastin Time 33.5 Seconds (21.0-31.0)
[2019-08-20] MEDS: FUROSEMIDE 60 MG in SYRINGE 0 ML IV SCH ×3 (16:37→23:57)
[2019-08-20] MEDS ORDERED: HEPARIN IV BOLUS 4,000 UNITS in SYRINGE 0 ML IV ONE (17:00)
[2019-08-20] MEDS ORDERED: CLOPIDOGREL BISULFATE 75 MG TAB PO ONE (17:15)
[2019-08-20] MEDS: MAGNESIUM OXIDE 400 MG TAB PO SCH (20:42)
[2019-08-20] MEDS: TRAZODONE HCL 50 MG TAB PO SCH (20:42)
[2019-08-20] MEDS: ASPIRIN 81 MG ECTAB PO SCH (20:43)
[2019-08-20] MEDS: MONTELUKAST SODIUM 10 MG TABLET PO SCH (20:43)
[2019-08-20 22:51] LABS: Partial Thromboplastin Ratio 2.8
[2019-08-20 22:54] LABS: Partial Thromboplastin Time 76.6 Seconds (21.0-31.0)
[2019-08-21] MEDS: LEVALBUTEROL HCL 0.63 MG/3 ML NEB NEB SCH ×4 (01:12→19:19)
[2019-08-21] MEDS: IPRATROPIUM BROMIDE NEB SOLN 0.02% 2.5 ML VIAL INH SCH ×4 (01:12→19:19)
[2019-08-21] MEDS: FUROSEMIDE 60 MG in SYRINGE 0 ML IV SCH ×2 (04:42→07:58)
[2019-08-21 06:11] LABS: Partial Thromboplastin Ratio 1.7
[2019-08-21 06:13] LABS: Partial Thromboplastin Time 45.2 Seconds (21.0-31.0)
[2019-08-21] MEDS ORDERED: HEPARIN IV BOLUS 2,000 UNITS in SYRINGE 0 ML IV ONE (06:45)
[2019-08-21] MEDS: BUDESONIDE 0.5 MG/2 ML VIAL (PULMICORT) NEB SCH ×2 (07:10→19:19)
[2019-08-21] MEDS: predniSONE 20 MG TAB PO SCH ×2 (07:59→21:02)
[2019-08-21] MEDS: CLOPIDOGREL BISULFATE 75 MG TAB PO SCH (07:59)
[2019-08-21] MEDS: dilTIAZem HCL 120 MG CAPCR PO SCH (07:59)
[2019-08-21] MEDS: ISOSORBIDE MONO EXTENDED REL 30 MG TABCR PO SCH (07:59)
[2019-08-21] MEDS: PANTOprazole 40 MG TAB PO SCH ×2 (07:59→21:02)
[2019-08-21] MEDS: ATORVASTATIN 40 MG TAB PO SCH (07:59)
[2019-08-21] MEDS: cefUROXime axetil 500 MG TAB PO SCH (07:59)
[2019-08-21] MEDS: METOPROLOL TARTRATE 25 MG TAB PO SCH ×2 (08:00→21:02)
[2019-08-21] MEDS: LIDOCAINE 5% 1 PATCH TD SCH (08:00)
[2019-08-21] MEDS: INSULIN HUMAN NPH SC SCH ×2 (08:01→17:12)
[2019-08-21] MEDS: INSULIN ASPART 100 UNITS/ML 3 ML PEN SC SCH ×4 (08:03→22:00)
--- NOTE | 2019-08-21 08:40 | Pulmonology Progress Note ---
Date of Service August 21, 2019 Assessment & Plan (1) Hematuria, gross: Hematuria seems to have cleared but patient growing a gram-negative from the urine. Currently on cefuroxime and will defer to urology. Sensitivities pending . (2) Pleural effusion due to CHF (congestive heart failure): (3) Acute on chronic diastolic heart failure: (4) Acute respiratory failure with hypoxia: (5) Pleural effusion, bilateral: Patient continues to improve from a pulmonary standpoint. Is making plans to attend a family gathering in [place] in August. Much less dyspneic and we may be able to cut down on her diuresis. Will defer to nephrology and c ardiology. We can also slowly decrease her steroid therapy at time of discharge. Will need follow-up for both cardiology and pulmonary medicine. (6) Acute kidney injury superimposed on CKD: (7) Paroxysmal atrial fibrillation: (8) Atrial fibrillation with RVR: (9) Aortic stenosis: (10) Chronic pancreatitis: (11) Urinary (tract) obstruction: Subjective Patient seen and examined at the bedside. Episode of hematuria noted overnight. Urology consulted recommending continued observation and treatment of urinary tract infection. Intravenous heparin resumed. Coumadin remains on hold. Dual antiplatelet therapy continued as well. No evidence of recurrent atrial fibrillation on telemetry. Fluid balance negative approximately 1 L over the past 24 hours. Patient continues to improve clinically. Reports decreased shortness of breath today. No orthopnea or PND. Review of Systems Constitutional: no problem reported Eyes: no problem reported Ear, Nose, Mouth, Throat: no problem reported Respiratory: no problem reported Cardiovascular: no problem reported Gastrointestinal: no problem reported Genitourinary: no problem reported Musculoskeletal: no problem reported Integumentary: no problem reported Neurologic: no problem reported Psychiatric: no problem reported Endocrine: no problem reported Hematologic / Lymphatic: no problem reported Allergy / Immunological: no problem reported Physical Exam Constitutional: well developed and well nourished; no acute distress Eyes: PERRL, conjunctivae normal, anicteric sclerae ENMT: external ear and nose normal, oropharynx normal Neck: trachea midline, no thyromegaly Respiratory: normal respiratory effort Auscultation: + diminished lung s ounds (Improved aeration at the bases with less wheezing and rales not as evident) Cardiovascular: RRR, no murmur, no edema Palpation: normal PMI; no thrill Gastrointestinal (Abdomen): normal bowel sounds, soft, nontender, no hepatosplenomegaly Musculoskeletal: no cyanosis or clubbing, extremities motor strength 5/5 Gait: normal gait Skin: no rashes, warm and dry Neurologic: PERRL, EOMI, accommodation nl, no face palsy, no dysarthria Psychiatric: A+Ox3, euthymic affect Lymphatic: no cervical or axillary lymphadenopathy Results & Data Vital Signs (Past 12 Hours) Vital Signs Temp Pulse Resp BP Pulse Ox 08/21/19 08:02 36.6 C 70 18 116/68 96 08/21/19 07:10 68 16 98 08/21/19 03:27 37.0 C 69 19 124/80 98 08/20/19 23:32 36.8 C 65 19 117/67 99 Laboratory Results Abnormal Labs 08/16/19 08/16/19 08/16/19 13:50 13:50 16:21 WBC 12.12 H RBC 3.47 L Hgb 10.1 L Hct 30.7 L RDW Std Deviation 47.8 H RDW Coeff of Stormy 15.0 H Immature Gran # (Auto) 0.03 H Neut # (Auto) 8.66 H [place] # (Auto) 0.81 H INR APTT ABG pH ABG pCO2 31 L ABG pO2 96 H ABG O2 Saturation 97.1 H Anion Gap BUN 23 H Creatinine 1.83 H BUN/Creatinine Ratio Glucose 365 H* POC Glucose Hemoglobin A1c Calcium 8.2 L AST 13 L Total Protein Albumin 2.7 L Albumin/Globulin Ratio 0.7 L Lipase 56 L Beta-Hydroxybutyric Acd 5.13 H Urine Appearance Urine Protein Urine Ketones Urine Blood Ur Leukocyte Esterase Urine WBC (Auto) Urine RBC (Auto) U Epithel Cells (Auto) Urine Bacteria (Auto) Amorphous Sediment 08/16/19 08/16/19 08/16/19 18:53 18:54 20:40 WBC RBC Hgb Hct RDW Std Deviation RDW Coeff of Stormy Immature Gran # (Auto) Neut # (Auto) [place] # (Auto) INR APTT ABG pH ABG pCO2 ABG pO2 ABG O2 Saturation Anion Gap BUN Creatinine BUN/Creatinine Ratio Glucose POC Glucose 361 H* 370 H* 276 H Hemoglobin A1c Calcium AST Total Protein Albumin Albumin/Globulin Ratio Lipase Beta-Hydroxybutyric Acd Urine Appearance Urine Protein Urine Ketones Urine Blood Ur Leukocyte Esterase Urine WBC (Auto) Urine RBC (Auto) U Epithel Cells (Auto) Urine Bacteria (Auto) Amorphous Sediment 08/16/19 08/16/19 08/16/19 21:34 22:25 23:26 WBC RBC Hgb Hct RDW Std Deviation RDW Coeff of Stormy Immature Gran # (Auto) Neut # (Auto) [place] # (Auto) INR APTT ABG pH ABG pCO2 ABG pO2 ABG O2 Saturation Anion Gap BUN Creatinine BUN/Creatinine Ratio Glucose POC Glucose 245 H 207 H 176 H Hemoglobin A1c Calcium AST Total Protein Albumin Albumin/Globulin Ratio Lipase Beta-Hydroxybutyric Acd Urine Appearance Urine Protein Urine Ketones Urine Blood Ur Leukocyte Esterase Urine WBC (Auto) Urine RBC (Auto) U Epithel Cells (Auto) Urine Bacteria (Auto) Amorphous Sediment 08/17/19 08/17/19 08/17/19 00:33 03:08 03:19 WBC 11.67 H RBC 3.02 L Hgb 9.0 L Hct 26.8 L RDW Std Deviation 48.4 H RDW Coeff of Stormy 15.1 H Immature Gran # (Auto) 0.03 H Neut # (Auto) 8.76 H [place] # (Auto) 0.82 H INR APTT ABG pH ABG pCO2 ABG pO2 ABG O2 Saturation Anion Gap BUN Creatinine BUN/Creatinine Ratio Glucose POC Glucose 116 H 181 H Hemoglobin A1c Calcium AST Total Protein Albumin Albumin/Globulin Ratio Lipase Beta-Hydroxybutyric Acd Urine Appearance Urine Protein Urine Ketones Urine Blood Ur Leukocyte Esterase Urine WBC (Auto) Urine RBC (Auto) U Epithel Cells (Auto) Urine Bacteria (Auto) Amorphous Sediment 08/17/19 08/17/19 08/17/19 03:19 03:19 03:19 WBC RBC Hgb Hct RDW Std Deviation RDW Coeff of Stormy Immature Gran # (Auto) Neut # (Auto) [place] # (Auto) INR APTT 44.7 H ABG pH ABG pCO2 ABG pO2 ABG O2 Saturation Anion Gap BUN 27 H Creatinine 2.32 H D BUN/Creatinine Ratio Glucose 180 H POC Glucose Hemoglobin A1c 9.5 H Calcium 7.9 L AST 12 L Total Protein 6.1 L Albumin 2.5 L Albumin/Globulin Ratio 0.7 L Lipase Beta-Hydroxybutyric Acd Urine Appearance Urine Protein Urine Ketones Urine Blood Ur Leukocyte Esterase Urine WBC (Auto) Urine RBC (Auto) U Epithel Cells (Auto) Urine Bacteria (Auto) Amorphous Sediment 08/17/19 08/17/19 08/17/19 07:23 10:01 13:41 WBC RBC Hgb Hct RDW Std Deviation RDW Coeff of Stormy Immature Gran # (Auto) Neut # (Auto) [place] # (Auto) INR APTT 90.0 H* ABG pH ABG pCO2 ABG pO2 ABG O2 Saturation Anion Gap BUN Creatinine BUN/Creatinine Ratio Glucose POC Glucose 252 H 49 L* Hemoglobin A1c Calcium AST Total Protein Albumin Albumin/Globulin Ratio Lipase Beta-Hydroxybutyric Acd Urine Appearance Urine Protein Urine Ketones Urine Blood Ur Leukocyte Esterase Urine WBC (Auto) Urine RBC (Auto) U Epithel Cells (Auto) Urine Bacteria (Auto) Amorphous Sediment 08/17/19 08/17/19 08/17/19 13:45 14:01 14:21 WBC RBC Hgb Hct RDW Std Deviation RDW Coeff of Stormy Immature Gran # (Auto) Neut # (Auto) [place] # (Auto) INR APTT ABG pH ABG pCO2 ABG pO2 ABG O2 Saturation Anion Gap BUN Creatinine BUN/Creatinine Ratio Glucose POC Glucose 55 L* 62 L* 55 L* Hemoglobin A1c Calcium AST Total Protein Albumin Albumin/Globulin Ratio Lipase Beta-Hydroxybutyric Acd Urine Appearance Urine Protein Urine Ketones Urine Blood Ur Leukocyte Esterase Urine WBC (Auto) Urine RBC (Auto) U Epithel Cells (Auto) Urine Bacteria (Auto) Amorphous Sediment 08/17/19 08/17/19 08/17/19 14:44 16:57 17:20 WBC RBC Hgb Hct RDW Std Deviation RDW Coeff of Stormy Immature Gran # (Auto) Neut # (Auto) [place] # (Auto) INR APTT 65.1 H* ABG pH ABG pCO2 ABG pO2 ABG O2 Saturation Anion Gap BUN Creatinine BUN/Creatinine Ratio Glucose POC Glucose 64 L* 103 H Hemoglobin A1c Calcium AST Total Protein Albumin Albumin/Globulin Ratio Lipase Beta-Hydroxybutyric Acd Urine Appearance Urine Protein Urine Ketones Urine Blood Ur Leukocyte Esterase Urine WBC (Auto) Urine RBC (Auto) U Epithel Cells (Auto) Urine Bacteria (Auto) Amorphous Sediment 08/17/19 08/17/19 08/18/19 21:03 21:10 00:52 WBC RBC Hgb Hct RDW Std Deviation RDW Coeff of Stormy Immature Gran # (Auto) Neut # (Auto) [place] # (Auto) INR APTT ABG pH ABG pCO2 ABG pO2 ABG O2 Saturation Anion Gap BUN Creatinine BUN/Creatinine Ratio Glucose POC Glucose 143 H 153 H Hemoglobin A1c Calcium AST Total Protein Albumin Albumin/Globulin Ratio Lipase Beta-Hydroxybutyric Acd Urine Appearance Turbid A Urine Protein 1+ H Urine Ketones Trace H Urine Blood 3+ H Ur Leukocyte Esterase 1+ H Urine WBC (Auto) Urine RBC (Auto) 10-30 H U Epithel Cells (Auto) >30 H Urine Bacteria (Auto) Amorphous Sediment Present A 08/18/19 08/18/19 08/18/19 03:53 06:03 06:03 WBC RBC 3.16 L Hgb 9.3 L Hct 28.4 L RDW Std Deviation 49.4 H RDW Coeff of Stormy 15.2 H Immature Gran # (Auto) Neut # (Auto) [place] # (Auto) INR APTT ABG pH ABG pCO2 ABG pO2 ABG O2 Saturation Anion Gap BUN 31 H Creatinine 2.38 H BUN/Creatinine Ratio Glucose 121 H POC Glucose 110 H Hemoglobin A1c Calcium AST Total Protein Albumin Albumin/Globulin Ratio Lipase Beta-Hydroxybutyric Acd Urine Appearance Urine Protein Urine Ketones Urine Blood Ur Leukocyte Esterase Urine WBC (Auto) Urine RBC (Auto) U Epithel Cells (Auto) Urine Bacteria (Auto) Amorphous Sediment 08/18/19 08/18/19 08/18/19 06:03 07:25 10:27 WBC RBC Hgb Hct RDW Std Deviation RDW Coeff of Stormy Immature Gran # (Auto) Neut # (Auto) [place] # (Auto) INR APTT 52.7 H* ABG pH 7.52 H* ABG pCO2 27 L ABG pO2 78 L ABG O2 Saturation 96.0 H Anion Gap BUN Creatinine BUN/Creatinine Ratio Glucose POC Glucose 118 H Hemoglobin A1c Calcium AST Total Protein Albumin Albumin/Globulin Ratio Lipase Beta-Hydroxybutyric Acd Urine Appearance Urine Protein Urine Ketones Urine Blood Ur Leukocyte Esterase Urine WBC (Auto) Urine RBC (Auto) U Epithel Cells (Auto) Urine Bacteria (Auto) Amorphous Sediment 08/18/19 08/18/19 08/18/19 11:17 12:47 16:26 WBC RBC Hgb Hct RDW Std Deviation RDW Coeff of Stormy Immature Gran # (Auto) Neut # (Auto) [place] # (Auto) INR APTT ABG pH ABG pCO2 ABG pO2 ABG O2 Saturation Anion Gap BUN Creatinine BUN/Creatinine Ratio Glucose POC Glucose 196 H 190 H 178 H Hemoglobin A1c Calcium AST Total Protein Albumin Albumin/Globulin Ratio Lipase Beta-Hydroxybutyric Acd Urine Appearance Urine Protein Urine Ketones Urine Blood Ur Leukocyte Esterase Urine WBC (Auto) Urine RBC (Auto) U Epithel Cells (Auto) Urine Bacteria (Auto) Amorphous Sediment 08/18/19 08/19/19 08/19/19 20:27 05:35 05:36 WBC RBC Hgb Hct RDW Std Deviation RDW Coeff of Stormy Immature Gran # (Auto) Neut # (Auto) [place] # (Auto) INR 1.2 H APTT ABG pH ABG pCO2 ABG pO2 ABG O2 Saturation Anion Gap BUN 43 H Creatinine 2.42 H BUN/Creatinine Ratio Glucose 221 H POC Glucose 273 H Hemoglobin A1c Calcium AST Total Protein Albumin Albumin/Globulin Ratio Lipase Beta-Hydroxybutyric Acd Urine Appearance Urine Protein Urine Ketones Urine Blood Ur Leukocyte Esterase Urine WBC (Auto) Urine RBC (Auto) U Epithel Cells (Auto) Urine Bacteria (Auto) Amorphous Sediment 08/19/19 08/19/19 08/19/19 07:20 11:17 11:18 WBC RBC Hgb Hct RDW Std Deviation RDW Coeff of Stormy Immature Gran # (Auto) Neut # (Auto) [place] # (Auto) INR APTT ABG pH ABG pCO2 ABG pO2 ABG O2 Saturation Anion Gap BUN Creatinine BUN/Creatinine Ratio Glucose POC Glucose 276 H 305 H* 270 H Hemoglobin A1c Calcium AST Total Protein Albumin Albumin/Globulin Ratio Lipase Beta-Hydroxybutyric Acd Urine Appearance Urine Protein Urine Ketones Urine Blood Ur Leukocyte Esterase Urine WBC (Auto) Urine RBC (Auto) U Epithel Cells (Auto) Urine Bacteria (Auto) Amorphous Sediment 08/19/19 08/19/19 08/19/19 11:34 12:07 16:05 WBC RBC Hgb Hct RDW Std Deviation RDW Coeff of Stormy Immature Gran # (Auto) Neut # (Auto) [place] # (Auto) INR APTT 53.9 H* ABG pH ABG pCO2 ABG pO2 ABG O2 Saturation Anion Gap BUN Creatinine BUN/Creatinine Ratio Glucose 228 H POC Glucose 157 H Hemoglobin A1c Calcium AST Total Protein Albumin Albumin/Globulin Ratio Lipase Beta-Hydroxybutyric Acd Urine Appearance Urine Protein Urine Ketones Urine Blood Ur Leukocyte Esterase Urine WBC (Auto) Urine RBC (Auto) U Epithel Cells (Auto) Urine Bacteria (Auto) Amorphous Sediment 08/19/19 08/19/19 08/20/19 19:03 20:01 01:10 WBC RBC Hgb Hct RDW Std Deviation RDW Coeff of Stormy Immature Gran # (Auto) Neut # (Auto) [place] # (Auto) INR APTT 41.3 H ABG pH ABG pCO2 ABG pO2 ABG O2 Saturation Anion Gap BUN Creatinine BUN/Creatinine Ratio Glucose POC Glucose 142 H 146 H Hemoglobin A1c Calcium AST Total Protein Albumin Albumin/Globulin Ratio Lipase Beta-Hydroxybutyric Acd Urine Appearance Urine Protein Urine Ketones Urine Blood Ur Leukocyte Esterase Urine WBC (Auto) Urine RBC (Auto) U Epithel Cells (Auto) Urine Bacteria (Auto) Amorphous Sediment 08/20/19 08/20/19 08/20/19 03:57 05:00 06:19 WBC 12.47 H RBC 3.27 L Hgb 9.5 L Hct 28.7 L RDW Std Deviation 47.6 H RDW Coeff of Stormy 15.0 H Immature Gran # (Auto) 0.04 H Neut # (Auto) 10.05 H [place] # (Auto) 0.80 H INR APTT ABG pH ABG pCO2 ABG pO2 ABG O2 Saturation Anion Gap BUN Creatinine BUN/Creatinine Ratio Glucose POC Glucose 153 H Hemoglobin A1c Calcium AST Total Protein Albumin Albumin/Globulin Ratio Lipase Beta-Hydroxybutyric Acd Urine Appearance Slightly Cloudy A Urine Protein 1+ H Urine Ketones Urine Blood 3+ H Ur Leukocyte Esterase 2+ H Urine WBC (Auto) >30 H Urine RBC (Auto) >30 H U Epithel Cells (Auto) Urine Bacteria (Auto) 2+ H Amorphous Sediment 08/20/19 08/20/19 08/20/19 06:19 06:19 07:04 WBC RBC Hgb Hct RDW Std Deviation RDW Coeff of Stormy Immature Gran # (Auto) Neut # (Auto) [place] # (Auto) INR APTT 58.3 H* ABG pH ABG pCO2 ABG pO2 ABG O2 Saturation Anion Gap 12.0 H BUN 56 H Creatinine 2.48 H BUN/Creatinine Ratio 22.5 H Glucose 189 H POC Glucose 174 H Hemoglobin A1c Calcium 8.4 L AST Total Protein Albumin 2.5 L Albumin/Globulin Ratio Lipase Beta-Hydroxybutyric Acd Urine Appearance Urine Protein Urine Ketones Urine Blood Ur Leukocyte Esterase Urine WBC (Auto) Urine RBC (Auto) U Epithel Cells (Auto) Urine Bacteria (Auto) Amorphous Sediment 08/20/19 08/20/19 08/20/19 11:45 16:05 16:16 WBC RBC Hgb Hct RDW Std Deviation RDW Coeff of Stormy Immature Gran # (Auto) Neut # (Auto) [place] # (Auto) INR APTT 33.5 H ABG pH ABG pCO2 ABG pO2 ABG O2 Saturation Anion Gap BUN Creatinine BUN/Creatinine Ratio Glucose POC Glucose 168 H 165 H Hemoglobin A1c Calcium AST Total Protein Albumin Albumin/Globulin Ratio Lipase Beta-Hydroxybutyric Acd Urine Appearance Urine Protein Urine Ketones Urine Blood Ur Leukocyte Esterase Urine WBC (Auto) Urine RBC (Auto) U Epithel Cells (Auto) Urine Bacteria (Auto) Amorphous Sediment 08/20/19 08/20/19 08/21/19 20:11 22:23 05:11 WBC RBC Hgb Hct RDW Std Deviation RDW Coeff of Stormy Immature Gran # (Auto) Neut # (Auto) [place] # (Auto) INR APTT 76.6 H* 45.2 H* ABG pH ABG pCO2 ABG pO2 ABG O2 Saturation Anion Gap BUN Creatinine BUN/Creatinine Ratio Glucose POC Glucose 149 H Hemoglobin A1c Calcium AST Total Protein Albumin Albumin/Globulin Ratio Lipase Beta-Hydroxybutyric Acd Urine Appearance Urine Protein Urine Ketones Urine Blood Ur Leukocyte Esterase Urine WBC (Auto) Urine RBC (Auto) U Epithel Cells (Auto) Urine Bacteria (Auto) Amorphous Sediment 08/21/19 07:16 WBC RBC Hgb Hct RDW Std Deviation RDW Coeff of Stormy Immature Gran # (Auto) Neut # (Auto) [place] # (Auto) INR APTT ABG pH ABG pCO2 ABG pO2 ABG O2 Saturation Anion Gap BUN Creatinine BUN/Creatinine Ratio Glucose POC Glucose 167 H Hemoglobin A1c Calcium AST Total Protein Albumin Albumin/Globulin Ratio Lipase Beta-Hydroxybutyric Acd Urine Appearance Urine Protein Urine Ketones Urine Blood Ur Leukocyte Esterase Urine WBC (Auto) Urine RBC (Auto) U Epithel Cells (Auto) Urine Bacteria (Auto) Amorphous Sediment Medications Administered Current Inpatient Medications Acetaminophen (Tylenol) 650 mg PO Q4H PRN PRN Reason: Pain or Fever Stop: 09/15/19 18:17 Last Admin: 08/19/19 11:16 Dose: 650 mg Documented by: Al Hydrox/Mg Hydrox/Simethicone (Maalox) 15 ml PO Q4H PRN PRN Reason: Dyspepsia Stop: 09/15/19 18:17 Aspirin (Ecotrin Ectab) 81 mg PO QPM [facility] Stop: 09/15/19 20:59 Last Admin: 08/20/19 20:43 Dose: 81 mg Documented by: Atorvastatin Calcium (Lipitor) 40 mg PO QAM [facility] Stop: 09/16/19 08:59 Last Admin: 08/21/19 07:59 Dose: 40 mg Documented by: Budesonide (Pulmicort Respules) 0.5 mg NEB BIDR [facility] Stop: 09/15/19 18:59 Last Admin: 08/21/19 07:10 Dose: 0.5 mg Documented by: Cefuroxime Axetil (Ceftin) 500 mg PO Q24H [facility]; Protocol Stop: 08/28/19 08:59 Last Admin: 08/21/19 07:59 Dose: 500 mg Documented by: Clopidogrel [facility]ulfate (Plavix) [facility] Stop: 09/16/19 08:59 Last Admin: 08/21/19 07:59 Dose: 75 mg Documented by: Dextrose (Dextrose 50%) 25 - 50 ml IV UD PRN; Protocol PRN Reason: Hypoglycemia Protocol Stop: 09/15/19 18:17 Diltiazem HCl (Cardizem Cd) 120 mg PO [facility] Stop: 09/19/19 13:29 Last Admin: 08/21/19 07:59 Dose: 120 mg Documented by: Gabapentin (Neurontin) 800 mg PO HS [facility] Stop: 09/15/19 20:59 Last Admin: 08/16/19 20:48 Dose: 800 mg Documented by: Glucagon (Glucagen) 1 mg SQ UD PRN; Protocol PRN Reason: Hypoglycemia Protocol Stop: 09/15/19 18:17 Glucose (Glucose 40%) 15 - 30 gm PO UD PRN; Protocol PRN Reason: Hypoglycemia Protocol Stop: 09/15/19 18:17 Glucose (Dex4 Glucose) 4 - 8 tabs PO UD PRN; Protocol PRN Reason: Hypoglycemia Protocol Stop: 09/15/19 18:17 Heparin Sodium (Porcine) (Heparin Sod 100 Unit/Ml Flush) 5 ml FLUSH PRN PRN PRN Reason: Flush Stop: 09/16/19 00:14 Last Admin: 08/19/19 11:39 Dose: 5 ml Documented by: Heparin Sodium/Dextrose (Heparin Sodium/Dextrose) 25,000 units in 500 mls @ 14 mls/hr IV .Q24H [facility]; Protocol Stop: 09/19/19 09:29 Last Titration: 08/21/19 06:20 Dose: 700 units/hr, 14 mls/hr Documented by: Furosemide 60 mg/ Syringe 6 mls @ 4 mls/min IV Q4H [facility] Stop: 09/19/19 15:59 Last Admin: 08/21/19 07:58 Dose: 4 mls/min Documented by: Insulin Aspart (Novolog Flexpen) 0 units SC ACHS [facility] Stop: 09/15/19 18:17 Last Admin: 08/21/19 08:03 Dose: 22 units Documented by: Insulin Human NPH (Novolin N Nph) 30 units SC BIDM [facility]; Protocol Stop: 09/17/19 16:59 Last Admin: 08/21/19 08:01 Dose: 30 units Documented by: Ipratropium [place] (Atrovent 0.02% 0.5mg/2.5ml) 0.5 mg INH Q6R [facility] Stop: 09/17/19 10:14 Last Admin: 08/21/19 07:10 Dose: 0.5 mg Documented by: Isosorbide Mononitrate (Imdur Extended Rel) 30 mg PO QAM [facility] Stop: 09/16/19 08:59 Last Admin: 08/21/19 07:59 Dose: 30 mg Documented by: Levalbuterol HCl (Xopenex 0.63 Mg/3 Ml Neb) 0.63 mg NEB Q6R [facility] Stop: 09/17/19 10:14 Last Admin: 08/21/19 07:10 Dose: 0.63 mg Documented by: Lidocaine (Lidoderm 5%) 1 patch TD QAM [facility] Stop: 09/18/19 15:59 Last Admin: 08/21/19 08:00 Dose: 1 patch Documented by: Lorazepam (Ativan) 0.5 mg PO Q6 PRN PRN Reason: Anxiety Stop: 09/15/19 18:17 Magnesium Hydroxide (Milk Of Magnesia) 30 ml PO Q12H PRN PRN Reason: Constipation Stop: 09/15/19 18:17 Magnesium Oxide (Mag-Ox) 400 mg PO QPM [facility] Stop: 09/15/19 20:59 Last Admin: 08/20/19 20:42 Dose: 400 mg Documented by: Metoprolol Tartrate (Lopressor) 25 mg PO BID JOHN Stop: 09/15/19 20:59 Last Admin: 08/21/19 08:00 Dose: 25 mg Documented by: Mirtazapine (Remeron Solutab) 45 mg PO HS JOHN Stop: 09/15/19 20:59 Last Admin: 08/16/19 20:49 Dose: 45 mg Documented by: Karelycellaneous (Carbohydrates For Hypoglycemia) 15 - 30 gm PO UD PRN PRN Reason: Hypoglycemia Treatment Stop: 09/15/19 18:17 Last Admin: 08/17/19 14:50 Dose: 30 gm Documented by: Karelycellaneous (Remove Lidoderm Patch) 1 ea N/A DAILY@2100 [facility] Stop: 09/18/19 20:59 Last Admin: 08/20/19 20:44 Dose: 1 ea Documented by: Karelycellaneous Information (Consult Glycemic Management Pharmacy) 1 ea N/A UD PRN; Protocol PRN Reason: Consult Stop: 09/15/19 18:37 Montelukast Sodium (Singulair) 10 mg PO HS [facility] Stop: 09/15/19 20:59 Last Admin: 08/20/19 20:43 Dose: 10 mg Documented by: Ondansetron HCl (Zofran) 4 mg IV Q6H PRN PRN Reason: Nausea Stop: 09/15/19 18:17 Pantoprazole Sodium (Protonix) 40 mg PO BID JOHN Stop: 09/15/19 20:59 Last Admin: 08/21/19 07:59 Dose: 40 mg Documented by: Polyethylene Glycol (Miralax Powder Packet) 17 gm PO DAILY PRN PRN Reason: Constipation Stop: 09/15/19 18:17 Prednisone (Prednisone) 20 mg PO BID JOHN Stop: 09/18/19 20:59 Last Admin: 08/21/19 07:59 Dose: 20 mg Documented by: Ropinirole HCl (Requip) 1 mg PO HS JOHN Stop: 09/15/19 20:59 Last Admin: 08/16/19 20:49 Dose: 1 mg Documented by: Tramadol HCl (Ultram) 50 mg PO Q12H PRN PRN Reason: Pain Stop: 09/18/19 15:33 Last Admin: 08/19/19 16:38 Dose: 50 mg Documented by: Trazodone HCl (Desyrel) 50 mg PO HS JOHN Stop: 09/15/19 20:59 Last Admin: 08/20/19 20:42 Dose: 50 mg Documented by: PG Care Time/CCT Total # of Minutes Spent Total Time Spent with Patient: Total time spent is greater than 50% in coordination of care (as documented) at patient's floor/unit and/or counseling patient:
--- NOTE | 2019-08-21 09:10 | XRay Report ---
TWO VIEW CHEST CLINICAL HISTORY: Pleural effusions. FINDINGS: PA and lateral chest radiographs are compared to chest x-ray and chest CT dated 08/19/2019. The PA view is degraded by patient rotation. A right-sided central venous infusion port is in place. The heart is enlarged noting atherosclerotic calcification of the thoracic aorta. Pulmonary vascular congestion has almost completely resolved from 08/19/2019. Small pleural effusions persist with bibas ilar atelectasis. No pneumothorax is seen. The skeletal structures are osteopenic. The bony thorax is grossly intact. Degenerative changes noted in the thoracic spine. Cholecystectomy clips are noted in the right upper quadrant. IMPRESSION: 1. Cardiomegaly. Pulmonary vascular congestion has almost completely resolved from 08/19/2019. 2. There are small pleural effusions with bibasilar atelectasis. Electronically signed by: Ramez Blanchard M.D. 08/21/2019 9:09 AM
--- NOTE | 2019-08-21 09:33 | Hospitalist Progress Note ---
Date of Service August 21, 2019 Assessment & Plan (1) Hypoxia: 70-year-old female with history of CAD, COPD, diabetes, hypertension, CVA, recurrent pancreatitis, Presenting with shortness of breath. HYPOXIA SECONDARY TO BILATERAL PLEURAL EFFUSION, LIKELY FROM VALVULAR AND DIASTOLIC CHF Now down to 2 L of oxygen by nasal cannula Diuresed well, hold Lasix for today, reevaluate tomorrow Continue Prednisone, nebs every 6 hours for possible component of COPD exacerbation; pulmonary service consulted, deferring plans for thoracentesis at this time ATRIAL FIBRILLATION ON RAPID VENTRICULAR RESPONSE Now in sinus rhythm Diltiazem added to metoprolol On heparin drip Nutrition Specialist consulted ACUTE RENAL FAILURE ON CKD STAGE III Baseline creatinine 1.2-1.4 Creatinine 2.5 today Monitor closely Appreciate nephrology service recommendations HEMATURIA Hg stable Resolved possible UTI, ff up culture, Ceftriaxone IV started heparin changed to low dose, no bolus ASA, Plavix continued discussed with Urology SVC LOWER BACK PAIN, LIKELY MUSCULOSKELETAL ETIOLOGY CT abdomen and pelvis to rule out retroperitoneal hemorrhage: negative PRN tramadol, Lidoderm patch, warm compress CAD, S/P GAETANO JANUARY 2019 Continue aspirin, Plavix, metoprolol COPD With exacerbation, management per #1 DIABETES TYPE 2 Pharmacist consulted for glycemic control Insulin drip started for better glycemic control today HYPERTENSION Stable, continue Imdur, metoprolol HISTORY OF CVA Continue aspirin, Plavix atorvastatin DVT prophylaxis Currently on heparin drip Disposition Patient will need PT/OT evaluation Patient normally lives at home with family Subjective Follow-up for pleural effusions, hypoxia Seen resting in bed, comfortable, watching TV, on 2 L of oxygen via nasal cannula In good spirits States that she feels improved today compared to yesterday Breathing improving, less cough No chest pain, shortness of breath, palpitations, dizziness Robles catheter draining yellow urine No other symptoms Review of Systems Review of Systems: All systems reviewed & are unremarkable except as noted in HPI & below Physical Exam Physical Exam: General- oriented x 3, not in distress, speaks in sentences with no effort or accessory muscle use Eyes- anicteric Neck- no JVD Lungs-mildly decreased breath sounds at the bases, with mild crackles No wheezing Heart- normal rate, regular rhythm; no murmurs Abdomen- normal bowel sounds, nondistended, soft, nontender Extremities- no pretibial edema, no calf tenderness Neuro- alert, oriented x 3; no gross focal neurologic deficits Skin- warm & dry Results & Data Vital Signs (Past 12 Hours) Vital Signs Temp Pulse Resp BP Pulse Ox 08/21/19 08:02 36.6 C 70 18 116/68 96 08/21/19 07:10 68 16 98 08/21/19 03:27 37.0 C 69 19 124/80 98 08/20/19 23:32 36.8 C 65 19 117/67 99
[2019-08-21 09:51] LABS: BUN Creatinine Ratio 28.8 (10-20); Calcium 8.8 mg/dl (8.5-10.1); Creatinine Clr Calc Pharmacy 16.6 ml/min; Est GFR (African American) 21.8; Est GFR (Non-African American) 18.8; Potassium 3.6 mmol/L (3.5-5.1)
[2019-08-21 09:55] LABS: Basophils # (auto) 0.01 K/uL (0-0.2); Basophils % (auto) 0.1 %; Hematocrit (blood only) 30.7 % (37-47); Immature Granulocytes # (auto) 0.06 K/uL (0.00-0.02); Immature Granulocytes % (auto) 0.6 %; Lymphocytes # (auto) 2.18 K/uL (1.2-3.4); Lymphocytes % (auto) 20.1 %; Mean Corpuscular Hemoglobin 29.1 pg (25-34); Mean Corpuscular Hgb Conc 32.6 g/dL (32-36); Mean Corpuscular Volume 89.2 fL (80-100); Mean Platelet Volume 9.3 fL (7.4-10.4); Monocytes % (auto) 7.4 %; Neutrophils # (auto) 7.82 K/uL (1.4-6.5); Neutrophils % (auto) 71.8 %; Platelet Count 362 K/uL (130-400); RDW Coefficient of Variation 14.8 % (11.5-14.5); Red Blood Count 3.44 M/uL (4.2-5.4); White Blood Count 10.87 K/uL (4.8-10.8)
--- NOTE | 2019-08-21 10:18 | Cardiology Progress Note ---
Date of Service August 21, 2019 Assessment & Plan (1) Paroxysmal atrial fibrillation: (2) Acute on chronic diastolic heart failure: (3) Pleural effusion, bilateral: (4) LBBB (left bundle branch block): (5) Aortic stenosis: (6) CAD (coronary artery disease): (7) History of CVA (cerebrovascular accident): (8) COPD (chronic obstructive pulmonary disease): (9) Acute kidney injury superimposed on CKD: Volume status markedly improved. Recommend discontinuation of intravenous diure tic therapy. Transition to torsemide 10 mg daily in a.m pending review of repeat BMP. No signs/symptoms of recurrent blood loss. Recommend restarting Coumadin for goal INR of 2.0-3.0. Patient may discontinue aspirin when INR is therapeutic and continue Coumadin plus clopidogrel long-term. She must continue Plavix at this time due to recent coronary intervention (GAETANO x2, Lcx LPL sajan RCA, 01/2019 in setting of NSTEMI). Continue Cardizem CD at discharge. Transition metoprolol tartrate to succinate formulation. Subjective Patient seen and examined the bedside. Feeling better from a cardiovascular perspective. Shortness of breath has improved. X-ray demonstrates improvement of bilateral pleural effusions. BUN trending upward however creatinine remains stable. Fluid balance negative more than 2 L over the past 2 days. Weight is down approximately 18 pounds since admission. Patient requesting discharge if possible on Thursday due to family obligations. Review of Systems Review of Systems: All systems reviewed & are unremarkable except as noted in HPI & below Physical Exam Physical Exam: General: NAD, AAO x3, well nourished. Chronically ill. HEENT: Normocephalic. Atraumatic. Conjunctiva pink, no scleral icterus. Neck: No carotid bruits, the carotid upstrokes are brisk. No JVD. No HJR Heart: Regular normal S-1 and S-2. 2-3/6Low pitched mid peaking systolic ejection murmur heard best at the right second intercostal space. PMI is not displaced. No RV heave. Lungs: Diminished breath sounds at the bases bilaterally. No rales, rhonchi, or expiratory wheezing. Abdomen: Normal bowel sounds. Soft. Nontender. No masses or organomegaly. No abdominal bruits. Extremities: No clubbing, cyanosis, or edema. Pulses: radial=2/4, Dorsalis pedis =2/4, posterior tibial=2/4. Neuro: Cranial nerves grossly intact. No focal motor deficit. Results & Data Vital Signs (Past 12 Hours) Vital Signs Temp Pulse Resp BP Pulse Ox 08/21/19 08:02 36.6 C 70 18 116/68 96 08/21/19 07:10 68 16 98 08/21/19 03:27 37.0 C 69 19 124/80 98 08/20/19 23:32 36.8 C 65 19 117/67 99 Laboratory Results Laboratory Results - last 24 hr 08/20/19 08/20/19 08/20/19 11:45 16:05 16:16 WBC RBC Hgb Hct MCV MCH MCHC RDW Std Deviation RDW Coeff of Stormy Plt Count MPV Immature Gran % (Auto) Neut % (Auto) Lymph % (Auto) [place] % (Auto) Eos % (Auto) Baso % (Auto) Immature Gran # (Auto) Neut # (Auto) Lymph # (Auto) [place] # (Auto) Eos # (Auto) Baso # (Auto) APTT 33.5 H PTT Ratio 1.2 Sodium Potassium Chloride Carbon Dioxide Anion Gap BUN Creatinine Est Cr Clr Drug Dosing Est GFR ( Amer) Est GFR (Non-Af Amer) BUN/Creatinine Ratio Glucose POC Glucose 168 H 165 H Calcium 08/20/19 08/20/19 08/21/19 20:11 22:23 05:11 WBC RBC Hgb Hct MCV MCH MCHC RDW Std Deviation RDW Coeff of Stormy Plt Count MPV Immature Gran % (Auto) Neut % (Auto) Lymph % (Auto) [place] % (Auto) Eos % (Auto) Baso % (Auto) Immature Gran # (Auto) Neut # (Auto) Lymph # (Auto) [place] # (Auto) Eos # (Auto) Baso # (Auto) APTT 76.6 H* 45.2 H* PTT Ratio 2.8 1.7 Sodium Potassium Chloride Carbon Dioxide Anion Gap BUN Creatinine Est Cr Clr Drug Dosing Est GFR ( Amer) Est GFR (Non-Af Amer) BUN/Creatinine Ratio Glucose POC Glucose 149 H Calcium 08/21/19 08/21/19 08/21/19 05:12 05:12 07:16 WBC 10.87 H RBC 3.44 L Hgb 10.0 L Hct 30.7 L MCV 89.2 MCH 29.1 MCHC 32.6 RDW Std Deviation 48.0 H RDW Coeff of Stormy 14.8 H Plt Count 362 MPV 9.3 Immature Gran % (Auto) 0.6 Neut % (Auto) 71.8 Lymph % (Auto) 20.1 [place] % (Auto) 7.4 Eos % (Auto) 0.0 Baso % (Auto) 0.1 Immature Gran # (Auto) 0.06 H Neut # (Auto) 7.82 H Lymph # (Auto) 2.18 [place] # (Auto) 0.80 H Eos # (Auto) 0.00 Baso # (Auto) 0.01 APTT PTT Ratio Sodium 138 Potassium 3.6 Chloride 97 L Carbon Dioxide 32 Anion Gap 9.0 BUN 69 H Creatinine 2.39 H Est Cr Clr Drug Dosing 16.6 Est GFR ( Amer) 21.8 Est GFR (Non-Af Amer) 18.8 BUN/Creatinine Ratio 28.8 H Glucose 115 H POC Glucose 167 H Calcium 8.8 (1) CAD (coronary artery disease) Associated angina: with unspecified angina Coronary Disease-Associated Artery/Lesion type: [place] artery [place] vs. transplanted heart: [place] heart Qualified Code(s): I25.119 - Atherosclerotic heart disease of [place] coronary artery with unspecified angina pectoris
[2019-08-21] MEDS ORDERED: INSULIN HUMAN REGULAR PER UNIT 6 UNITS in SYRINGE 5.94 ML IV ONE (11:45)
[2019-08-21] MEDS: HEPARIN SODIUM/DEXTROSE 25,000 UNITS/500 ML BAG IV SCH (12:08)
[2019-08-21 12:39] LABS: Partial Thromboplastin Ratio 2.3
[2019-08-21 12:42] LABS: Partial Thromboplastin Time 61.5 Seconds (21.0-31.0)
--- NOTE | 2019-08-21 14:44 | Pharmacy Report ---
Pharmacy Glycemic Short Note 2 - Date of Service August 21, 2019 - Glycemic Short BSG Results (Last 24 hours): 08/20/19 08/20/19 08/21/19 16:16 20:11 05:12 Glucose 115 H POC Glucose 165 H 149 H 08/21/19 08/21/19 08/21/19 07:16 11:08 11:10 Glucose POC Glucose 167 H 396 H* 388 H* Outpatient Anti-diabetic Regimen: * Insulin 70/30 - 55 units qam and 35 units qpm * A1c = 9.5 % (08/17/19) ASSESSMENT: * 78 yr old female well known to the Pharmacy Glycemic Service. * Previous admission data shows that patient generally requires less insulin than outpatient regimen (when not receiving steroids). * Patient received 98 units of insulin yesterday * 60 units of basal insulin * 38 units of bolus insulin * She remains on Prednisone 20 mg PO BID * Insulin regimen was decreased by 25% on 08/20 in anticipation of decreased insulin needs since Solu Medrol IV was transitioned to Prednisone. * Glycemic control has greatly improved over the past 36 hours with the exception of BSG of 398 mg/dL at lunchtime today. Unknown cause of severe hyperglycemia. She was treated with an IV insulin bolus. Lunchtime BSG tends to be her highest BSG of the day (based on previous admissions), therefore we may need to consider a tighter carb ratio with breakfast compared to other meals. * Increase NPH for fasting BSG of 167 mg/dL PLAN FOR INPATIENT GLYCEMIC CONTROL: * Holding outpatient 70/30 insulin and will utilize SC basal/bolus with NPH and novolog * Basal insulin - increase * NPH 35 units SQ BID with meals * Bolus insulin * NovoLog per scale ACHS or Q6hrs while NPO * Goal Range: Low 110 mg/dL - High 140 mg/dL * Correction Factor: 10 mg/dL/unit * Nutritional / Prandial insulin per carb ratio of 1 unit per 4 grams CHO consumed PLAN FOR DISCHARGE: * Patient's A1c (9.5%) indicates sub-optimal glycemic control. * Outpatient insulin regimen may require adjustment at discharge, particularly if patient will require ongoing steroids. * Please note that the plan above was derived based on current level of insulin resistance and hospital stress. These recommendations are appropriate for inpatient admission only. Plan of care upon discharge will need to be reassessed to avoid potential outpatient hypo/hyperglycemia. Thank you.
[2019-08-21] MEDS ORDERED: INSULIN REGULAR 250 UNITS in SODIUM CHLORIDE 0.9% 247.5 ML IV SCH (15:45)
[2019-08-21] MEDS ORDERED: INSULIN HUMAN REGULAR IV BOLUS 2.5 UNITS in SYRINGE 0 ML IV ONE (15:45)
[2019-08-21 18:23] LABS: BUN Creatinine Ratio 27.3 (10-20); Calcium 8.3 mg/dl (8.5-10.1); Creatinine Clr Calc Pharmacy 15.6 ml/min; Est GFR (African American) 20.2; Est GFR (Non-African American) 17.5; Potassium 3.6 mmol/L (3.5-5.1)
[2019-08-21] MEDS: TRAZODONE HCL 50 MG TAB PO SCH (21:01)
[2019-08-21] MEDS: ASPIRIN 81 MG ECTAB PO SCH (21:01)
[2019-08-21] MEDS: MAGNESIUM OXIDE 400 MG TAB PO SCH (21:02)
[2019-08-21] MEDS: MONTELUKAST SODIUM 10 MG TABLET PO SCH (21:03)
[2019-08-21 23:51] LABS: BUN Creatinine Ratio 27.7 (10-20); Calcium 8.5 mg/dl (8.5-10.1); Creatinine Clr Calc Pharmacy 15.6 ml/min; Est GFR (African American) 20.2; Est GFR (Non-African American) 17.5; Potassium 3.4 mmol/L (3.5-5.1)
[2019-08-22] MEDS: LEVALBUTEROL HCL 0.63 MG/3 ML NEB NEB SCH ×4 (00:57→19:40)
[2019-08-22] MEDS: IPRATROPIUM BROMIDE NEB SOLN 0.02% 2.5 ML VIAL INH SCH ×4 (00:57→19:40)
[2019-08-22] MEDS ORDERED: POTASSIUM CHLORIDE 20 MEQ TABCR PO STA (01:16)
[2019-08-22 06:42] LABS: Basophils # (auto) 0.02 K/uL (0-0.2); Basophils % (auto) 0.2 %; Hematocrit (blood only) 29.9 % (37-47); Immature Granulocytes # (auto) 0.07 K/uL (0.00-0.02); Immature Granulocytes % (auto) 0.7 %; Lymphocytes # (auto) 2.75 K/uL (1.2-3.4); Lymphocytes % (auto) 27.2 %; Mean Corpuscular Hemoglobin 29.1 pg (25-34); Mean Corpuscular Hgb Conc 33.4 g/dL (32-36); Mean Corpuscular Volume 86.9 fL (80-100); Mean Platelet Volume 8.6 fL (7.4-10.4); Monocytes # (auto) 0.62 K/uL (0.11-0.59); Monocytes % (auto) 6.1 %; Neutrophils # (auto) 6.66 K/uL (1.4-6.5); Neutrophils % (auto) 65.8 %; Platelet Count 316 K/uL (130-400); RDW Coefficient of Variation 14.5 % (11.5-14.5); RDW Standard Deviation 45.6 fL (36.4-46.3); Red Blood Count 3.44 M/uL (4.2-5.4); White Blood Count 10.12 K/uL (4.8-10.8)
[2019-08-22 06:56] LABS: Partial Thromboplastin Ratio 1.6; Partial Thromboplastin Time 43.9 Seconds (21.0-31.0)
[2019-08-22] MEDS: BUDESONIDE 0.5 MG/2 ML VIAL (PULMICORT) NEB SCH ×2 (06:56→19:39)
[2019-08-22 07:25] LABS: BUN Creatinine Ratio 29.9 (10-20); Calcium 8.8 mg/dl (8.5-10.1); Creatinine Clr Calc Pharmacy 18.1 ml/min; Est GFR (African American) 24.2; Est GFR (Non-African American) 20.9; Potassium 4.3 mmol/L (3.5-5.1)
[2019-08-22] MEDS ORDERED: HEPARIN IV BOLUS 2,000 UNITS in SYRINGE 0 ML IV ONE (07:40)
[2019-08-22] MEDS: predniSONE 20 MG TAB PO SCH (08:04)
[2019-08-22] MEDS: METOPROLOL TARTRATE 25 MG TAB PO SCH ×2 (08:04→20:32)
[2019-08-22] MEDS: PANTOprazole 40 MG TAB PO SCH ×2 (08:04→20:32)
[2019-08-22] MEDS: ISOSORBIDE MONO EXTENDED REL 30 MG TABCR PO SCH (08:04)
[2019-08-22] MEDS: ATORVASTATIN 40 MG TAB PO SCH (08:04)
[2019-08-22] MEDS: dilTIAZem HCL 120 MG CAPCR PO SCH (08:04)
[2019-08-22] MEDS: CLOPIDOGREL BISULFATE 75 MG TAB PO SCH (08:05)
[2019-08-22] MEDS: LIDOCAINE 5% 1 PATCH TD SCH (08:05)
[2019-08-22] MEDS: cefUROXime axetil 500 MG TAB PO SCH (08:05)
[2019-08-22] MEDS: INSULIN ASPART 100 UNITS/ML 3 ML PEN SC SCH ×5 (09:04→20:33)
--- NOTE | 2019-08-22 09:04 | Nephrology Progress Note ---
Date of Service August 22, 2019 Assessment & Plan (1) Acute kidney injury superimposed on CKD: Likely due to ischemic ATN in the setting of hemodynamic instability from AF w/ RVR. Patient has CKD stage III with baseline creatinine of 1.5. Creatinine peaked at 2.5 and now down to 2.1. UACM remarkable mostly for ketones, contaminated specimen; suspect blood protein from contamination/dickinson -Monitor input output -daily bmp -If discharged patient will need to follow-up with nephrology in the office. (2) Labile blood pressure: Blood pressure is controlled on current regimen. No changes today (3) Diastolic CHF: valvular and diastolic HF w/ marked volume overload on exam as evidenced by pl effusions, hypoxia >> she was net -1 L yesterday. IV Lasix was held. -Agree with torsemide 10 mg daily, could start today and continue his outpatient -cont <2 gm daily Na diet -cont 1.5L FR (4) Pleural effusion, bilateral: Pulmonary on board. Recommend conservative management with diuresis. No role for thoracentesis at the moment. Patient clinically much better. Subjective Patient feels much better. No shortness of breath. She is off oxygen. He complains of back pain. Leg swelling has subsided. She still has a Dickinson catheter. She was net -1 L. She continues on a heparin drip Review of Systems Review of Systems: All systems reviewed & are unremarkable except as noted in HPI & below Physical Exam Physical Exam: General exam: Appears comfortable, no acute distress HEENT: Pupils are equal and reactive to light Neck: No JVD, neck is supple trachea is midline Respiratory system: Clear breath sounds bilaterally. Gastrointestinal: Abdomen is soft, non distended, non tender, bowel sounds are present CVS: Regular rate and rhythm. No murmurs, rubs or gallops Musculoskeletal: No joint or muscle tenderness Extremities: Non tender, no edema, peripheral pulses are present Neuro: Oriented, no tremors, no focal neurological deficits Skin: No rashes Results & Data Vital Signs (Past 12 Hours) Vital Signs Temp Pulse Resp BP BP Pulse Ox 08/22/19 07:27 36.6 C 65 20 126/71 99 08/22/19 06:56 64 18 98 08/22/19 04:00 36.7 C 66 19 129/74 97 08/21/19 23:27 36.7 C 63 19 125/70 97 Laboratory Results Laboratory Results - last 24 hr 08/21/19 08/21/19 08/21/19 05:12 05:12 11:08 WBC 10.87 H RBC 3.44 L Hgb 10.0 L Hct 30.7 L MCV 89.2 MCH 29.1 MCHC 32.6 RDW Std Deviation 48.0 H RDW Coeff of Stormy 14.8 H Plt Count 362 MPV 9.3 Immature Gran % (Auto) 0.6 Neut % (Auto) 71.8 Lymph % (Auto) 20.1 [place] % (Auto) 7.4 Eos % (Auto) 0.0 Baso % (Auto) 0.1 Immature Gran # (Auto) 0.06 H Neut # (Auto) 7.82 H Lymph # (Auto) 2.18 [place] # (Auto) 0.80 H Eos # (Auto) 0.00 Baso # (Auto) 0.01 APTT PTT Ratio Sodium 138 Potassium 3.6 Chloride 97 L Carbon Dioxide 32 Anion Gap 9.0 BUN 69 H Creatinine 2.39 H Est Cr Clr Drug Dosing 16.6 Est GFR ( Amer) 21.8 Est GFR (Non-Af Amer) 18.8 BUN/Creatinine Ratio 28.8 H Glucose 115 H POC Glucose 396 H* Calcium 8.8 08/21/19 08/21/19 08/21/19 11:10 11:58 14:44 WBC RBC Hgb Hct MCV MCH MCHC RDW Std Deviation RDW Coeff of Stormy Plt Count MPV Immature Gran % (Auto) Neut % (Auto) Lymph % (Auto) [place] % (Auto) Eos % (Auto) Baso % (Auto) Immature Gran # (Auto) Neut # (Auto) Lymph # (Auto) [place] # (Auto) Eos # (Auto) Baso # (Auto) APTT 61.5 H* PTT Ratio 2.3 Sodium Potassium Chloride Carbon Dioxide Anion Gap BUN Creatinine Est Cr Clr Drug Dosing Est GFR ( Amer) Est GFR (Non-Af Amer) BUN/Creatinine Ratio Glucose POC Glucose 388 H* 308 H* Calcium 08/21/19 08/21/19 08/21/19 14:45 17:11 17:51 WBC RBC Hgb Hct MCV MCH MCHC RDW Std Deviation RDW Coeff of Stormy Plt Count MPV Immature Gran % (Auto) Neut % (Auto) Lymph % (Auto) [place] % (Auto) Eos % (Auto) Baso % (Auto) Immature Gran # (Auto) Neut # (Auto) Lymph # (Auto) [place] # (Auto) Eos # (Auto) Baso # (Auto) APTT PTT Ratio Sodium 134 L Potassium 3.6 Chloride 95 L Carbon Dioxide 29 Anion Gap 11.0 BUN 69 H Creatinine 2.54 H Est Cr Clr Drug Dosing 15.6 Est GFR ( Amer) 20.2 Est GFR (Non-Af Amer) 17.5 BUN/Creatinine Ratio 27.3 H Glucose 278 H POC Glucose 312 H* 328 H* Calcium 8.3 L 08/21/19 08/21/19 08/21/19 18:11 19:11 20:13 WBC RBC Hgb Hct MCV MCH MCHC RDW Std Deviation RDW Coeff of Stormy Plt Count MPV Immature Gran % (Auto) Neut % (Auto) Lymph % (Auto) [place] % (Auto) Eos % (Auto) Baso % (Auto) Immature Gran # (Auto) Neut # (Auto) Lymph # (Auto) [place] # (Auto) Eos # (Auto) Baso # (Auto) APTT PTT Ratio Sodium Potassium Chloride Carbon Dioxide Anion Gap BUN Creatinine Est Cr Clr Drug Dosing Est GFR ( Amer) Est GFR (Non-Af Amer) BUN/Creatinine Ratio Glucose POC Glucose 272 H 218 H 158 H Calcium 08/21/19 08/21/19 08/21/19 21:07 22:09 23:13 WBC RBC Hgb Hct MCV MCH MCHC RDW Std Deviation RDW Coeff of Stormy Plt Count MPV Immature Gran % (Auto) Neut % (Auto) Lymph % (Auto) [place] % (Auto) Eos % (Auto) Baso % (Auto) Immature Gran # (Auto) Neut # (Auto) Lymph # (Auto) [place] # (Auto) Eos # (Auto) Baso # (Auto) APTT PTT Ratio Sodium 138 Potassium 3.4 L Chloride 97 L Carbon Dioxide 31 Anion Gap 10.0 BUN 70 H Creatinine 2.54 H Est Cr Clr Drug Dosing 15.6 Est GFR ( Amer) 20.2 Est GFR (Non-Af Amer) 17.5 BUN/Creatinine Ratio 27.7 H Glucose 98 POC Glucose 122 H 88 Calcium 8.5 08/21/19 08/22/19 08/22/19 23:14 00:10 01:57 WBC RBC Hgb Hct MCV MCH MCHC RDW Std Deviation RDW Coeff of Stormy Plt Count MPV Immature Gran % (Auto) Neut % (Auto) Lymph % (Auto) [place] % (Auto) Eos % (Auto) Baso % (Auto) Immature Gran # (Auto) Neut # (Auto) Lymph # (Auto) [place] # (Auto) Eos # (Auto) Baso # (Auto) APTT PTT Ratio Sodium Potassium Chloride Carbon Dioxide Anion Gap BUN Creatinine Est Cr Clr Drug Dosing Est GFR ( Amer) Est GFR (Non-Af Amer) BUN/Creatinine Ratio Glucose POC Glucose 105 H 98 114 H Calcium 08/22/19 08/22/19 08/22/19 04:10 06:33 06:33 WBC 10.12 RBC 3.44 L Hgb 10.0 L Hct 29.9 L MCV 86.9 MCH 29.1 MCHC 33.4 RDW Std Deviation 45.6 RDW Coeff of Stormy 14.5 Plt Count 316 MPV 8.6 Immature Gran % (Auto) 0.7 Neut % (Auto) 65.8 Lymph % (Auto) 27.2 [place] % (Auto) 6.1 Eos % (Auto) 0.0 Baso % (Auto) 0.2 Immature Gran # (Auto) 0.07 H Neut # (Auto) 6.66 H Lymph # (Auto) 2.75 [place] # (Auto) 0.62 H Eos # (Auto) 0.00 Baso # (Auto) 0.02 APTT 43.9 H PTT Ratio 1.6 Sodium Potassium Chloride Carbon Dioxide Anion Gap BUN Creatinine Est Cr Clr Drug Dosing Est GFR ( Amer) Est GFR (Non-Af Amer) BUN/Creatinine Ratio Glucose POC Glucose 99 Calcium 08/22/19 08/22/19 08/22/19 06:33 06:37 07:23 WBC RBC Hgb Hct MCV MCH MCHC RDW Std Deviation RDW Coeff of Stormy Plt Count MPV Immature Gran % (Auto) Neut % (Auto) Lymph % (Auto) [place] % (Auto) Eos % (Auto) Baso % (Auto) Immature Gran # (Auto) Neut # (Auto) Lymph # (Auto) [place] # (Auto) Eos # (Auto) Baso # (Auto) APTT PTT Ratio Sodium 139 Potassium 4.3 D Chloride 101 Carbon Dioxide 30 Anion Gap 8.0 BUN 66 H Creatinine 2.19 H D Est Cr Clr Drug Dosing 18.1 Est GFR ( Amer) 24.2 Est GFR (Non-Af Amer) 20.9 BUN/Creatinine Ratio 29.9 H Glucose 78 POC Glucose 85 121 H Calcium 8.8
[2019-08-22] MEDS: INSULIN HUMAN NPH SC SCH (09:07)
--- NOTE | 2019-08-22 10:06 | Urology Progress Note ---
Date of Service August 22, 2019 Assessment & Plan (1) Hematuria, gross: Resolved hematuria. Recommend removal of Robles. Will arrange outpatient follow up. Thank you for allowing us to participate in the inpatient care of Ms. Kaplan. Please contact our service if we can assist further. Subjective 78 YO female with gross hematuria. Reports feeling well this AM, feeling ready for discharge. No fevers/chills. No pain. No nausea/vomiting. Robles remains in place, patent, draining concentrated yellow urine. Review of Systems Review of Systems: Per HPI. Physical Exam Physical Exam: NAD. Resp effort normal. No JVD. Abd soft, nontender. : Robles in place, patent, draining yellow urine. A&Ox3, appropriate affect. Results & Data Vital Signs (Past 12 Hours) Vital Signs Temp Pulse Resp BP BP Pulse Ox 08/22/19 07:27 36.6 C 65 20 126/71 99 08/22/19 06:56 64 18 98 08/22/19 04:00 36.7 C 66 19 129/74 97 08/21/19 23:27 36.7 C 63 19 125/70 97 PG Care Time/CCT Total # of Minutes Spent Total Time Spent with Patient: Total time spent is greater than 50% in coordination of care (as documented) at patient's floor/unit and/or counseling patient:
--- NOTE | 2019-08-22 10:58 | Cardiology Progress Note ---
Date of Service August 22, 2019 Assessment & Plan (1) Paroxysmal atrial fibrillation: (2) Acute on chronic diastolic heart failure: (3) Pleural effusion, bilateral: (4) LBBB (left bundle branch block): (5) Aortic stenosis: (6) CAD (coronary artery disease): (7) History of CVA (cerebrovascular accident): (8) COPD (chronic obstructive pulmonary disease): (9) Acute kidney injury superimposed on CKD: Volume status markedly improved. IV diuretic therapy discontinued. Creatinine trending downward. Recommend holding diuretic therapy today with repeat basic metabolic panel in a.m. No signs/symptoms of recurrent blood loss. Restarting Coumadin for goal INR of 2.0-3.0. Patient may discontinue aspirin when INR is therapeutic and continue Coumadin plus clopidogrel long-term. She must continue Plavix at this time due to recent coronary intervention (GAETANO x2, Lcx LPL sajan RCA, 01/2019 in setting of NSTEMI). Continue Cardizem CD at discharge. Transition metoprolol tartrate to succinate formulation. Subjective Patient seen and examined at the bedside. Feeling well from a cardiovascular perspective today. No recurrent atrial fibrillation on telemetry. Participating in physical therapy. Hemoglobin remains stable. She has not received Coumadin for the past 48 hours. No recurrent hematuria. Review of Systems Review of Systems: All systems reviewed & are unremarkable except as noted in HPI & below Physical Exam Physical Exam: General: NAD, AAO x3, well nourished. Chronically ill. HEENT: Normocephalic. Atraumatic. Conjunctiva pink, no scleral icterus. Neck: No carotid bruits, the carotid upstrokes are brisk. No JVD. No HJR Heart: Regular normal S-1 and S-2. 2-3/6Low pitched mid peaking systolic ejection murmur heard best at the right second intercostal space. PMI is not displaced. No RV heave. Lungs: Diminished breath sounds at the bases bilaterally. No rales, rhonchi, or expiratory wheezing. Abdomen: Normal bowel sounds. Soft. Nontender. No masses or organomegaly. No abdominal bruits. Extremities: No clubbing, cyanosis, or edema. Pulses: radial=2/4, Dorsalis pedis =2/4, posterior tibial=2/4. Neuro: Cranial nerves grossly intact. No focal motor deficit. Results & Data Vital Signs (Past 12 Hours) Vital Signs Temp Pulse Resp BP BP Pulse Ox 08/22/19 07:27 36.6 C 65 20 126/71 99 08/22/19 06:56 64 18 98 08/22/19 04:00 36.7 C 66 19 129/74 97 08/21/19 23:27 36.7 C 63 19 125/70 97 (1) CAD (coronary artery disease) Associated angina: with unspecified angina Coronary Disease-Associated Artery/Lesion type: [place] artery [place] vs. transplanted heart: [place] heart Qualified Code(s): I25.119 - Atherosclerotic heart disease of [place] coronary artery with unspecified angina pectoris
[2019-08-22] MEDS: HEPARIN SODIUM/DEXTROSE 25,000 UNITS/500 ML BAG IV SCH (12:55)
[2019-08-22 14:04] LABS: Partial Thromboplastin Ratio 2.4; Partial Thromboplastin Time 65.9 Seconds (21.0-31.0)
--- NOTE | 2019-08-22 14:25 | Pharmacy Report ---
Pharmacy Glycemic Short Note 2 - Date of Service August 22, 2019 - Glycemic Short BSG Results (Last 24 hours): 08/21/19 08/21/19 08/21/19 14:44 14:45 17:11 Glucose POC Glucose 308 H* 312 H* 328 H* 08/21/19 08/21/19 08/21/19 17:51 18:11 19:11 Glucose 278 H POC Glucose 272 H 218 H 08/21/19 08/21/19 08/21/19 20:13 21:07 22:09 Glucose POC Glucose 158 H 122 H 88 08/21/19 08/21/19 08/22/19 23:13 23:14 00:10 Glucose 98 POC Glucose 105 H 98 08/22/19 08/22/19 08/22/19 01:57 04:10 06:33 Glucose 78 POC Glucose 114 H 99 08/22/19 08/22/19 08/22/19 06:37 07:23 11:20 Glucose POC Glucose 85 121 H 117 H Outpatient Anti-diabetic Regimen: * Insulin 70/30 - 55 units qam and 35 units qpm * A1c = 9.5 % (08/17/19) ASSESSMENT: * 78 yr old female well known to the Pharmacy Glycemic Service. * Previous admission data shows that patient generally requires less insulin than outpatient regimen (when not receiving steroids). * Currently she remains on Prednisone 20 mg PO BID * Insulin regimen was decreased by 25% on 08/20 in anticipation of decreased insulin needs since Solu Medrol IV was transitioned to Prednisone. * Patient received approximately 143 units of insulin yesterday (65 units of which were basal insulin and approximately 18 units from the insulin drip) * BSGs ranging 85-396 mg/dL over past 24 hours * Patient initiated on insulin drip yesterday that lasted approximately 6 hours for BSGs > 300 mg/dL * Lower BSGs so far today 121 mg/dL fasting this AM and 117 mg/dL before lunch PLAN FOR INPATIENT GLYCEMIC CONTROL: * Holding outpatient 70/30 insulin and will utilize SC basal/bolus with NPH and novolog * Basal insulin - utilize scale due to lower BSGs today * If BSG < 180 mg/dL: NPH 30 units SQ BID with meals * If BSG 180 mg/dL or above: 35 units SC BID with meals * Bolus insulin - continue current parameters * NovoLog per scale ACHS or Q6hrs while NPO * Goal Range: Low 110 mg/dL - High 140 mg/dL * Correction Factor: 10 mg/dL/unit * Nutritional / Prandial insulin per carb ratio of 1 unit per 4 grams CHO consumed PLAN FOR DISCHARGE: * Patient's A1c (9.5%) indicates sub-optimal glycemic control. * Outpatient insulin regimen may require adjustment at discharge, particularly if patient will require ongoing steroids. * Please note that the plan above was derived based on current level of insulin resistance and hospital stress. These recommendations are appropriate for inpatient admission only. Plan of care upon discharge will need to be reassessed to avoid potential outpatient hypo/hyperglycemia. Thank you.
[2019-08-22] MEDS: WARFARIN SOD 3 MG TAB PO SCH (16:29)
[2019-08-22] MEDS ORDERED: INSULIN HUMAN NPH SC SCH (17:00)
--- NOTE | 2019-08-22 17:31 | Hospitalist Progress Note ---
Date of Service August 22, 2019 Assessment & Plan (1) Hypoxia: 70-year-old female with history of CAD, COPD, diabetes, hypertension, CVA, recurrent pancreatitis, Presenting with shortness of breath. HYPOXIA SECONDARY TO BILATERAL PLEURAL EFFUSION, LIKELY FROM VALVULAR AND DIASTOLIC CHF Now weaned off oxygen supplementation Diuresed well, Lasix discontinued, plan to resume torsemide Will taper prednisone, nebs, given for possible component of COPD exacerbation; pulmonary service consulted, deferring plans for thoracentesis at this time ATRIAL FIBRILLATION ON RAPID VENTRICULAR RESPONSE Now in sinus rhythm Diltiazem added to metoprolol On heparin drip, Coumadin 3 mg p.o. started INR daily ACUTE RENAL FAILURE ON CKD STAGE III Baseline creatinine 1.2-1.4 Creatinine improved to 2.1 today Monitor closely while on diuretics HEMATURIA, Klebsiella UTI No recurrence Hg stable Heparin, ASA, Plavix continued Ceftriaxone changed to cefuroxime p.o., continue to complete 7 days Urologist consulted, appreciate recommendations LOWER BACK PAIN, LIKELY MUSCULOSKELETAL ETIOLOGY CT abdomen and pelvis to rule out retroperitoneal hemorrhage: negative PRN tramadol, Lidoderm patch, warm compress Resolved CAD, S/P GAETANO JANUARY 2019 Continue aspirin, Plavix, metoprolol COPD With exacerbation, management per #1 DIABETES TYPE 2 Pharmacist consulted for glycemic control Insulin drip required yesterday Monitor HYPERTENSION Stable, continue Imdur, metoprolol HISTORY OF CVA Continue aspirin, Plavix atorvastatin DVT prophylaxis Currently on heparin drip plus Coumadin Disposition PT/OT evaluation Patient normally lives at home with family Subjective Follow-up for hypoxia, pleural effusion, acute renal failure and CKD, etc. Seen resting bed, comfortable, watching TV, off nasal cannula In good spirits States she feels improved today compared to yesterday Breathing continues to improve, intermittent dry cough No chest pain, palpitations, dizziness, nausea or vomiting No hematuria noted overnight No other symptoms Review of Systems Review of Systems: All systems reviewed & are unremarkable except as noted in HPI & below Physical Exam Physical Exam: General- oriented x 3, not in distress, speaks in sentences with no effort or accessory muscle use Eyes- anicteric Neck- no JVD Lungs-mild rales at the bases, but no wheezing, good air entry bilaterally Heart- normal rate, regular rhythm; no murmurs Abdomen- normal bowel sounds, nondistended, soft, nontender Extremities- no pretibial edema, no calf tenderness Robles catheter bag: Draining yellow urine Neuro- alert, oriented x 3; no gross focal neurologic deficits Skin- warm & dry Results & Data Vital Signs (Past 12 Hours) Vital Signs Temp Pulse Pulse Resp BP BP Pulse Ox 08/22/19 16:00 65 08/22/19 15:24 36.6 C 63 18 151/71 H 97 08/22/19 13:10 63 20 96 08/22/19 11:26 36.6 C 64 18 138/67 98 08/22/19 07:27 36.6 C 65 20 126/71 99 08/22/19 06:56 64 18 98 Laboratory Results Laboratory Results - last 24 hr 08/21/19 08/21/19 08/21/19 17:51 18:11 19:11 WBC RBC Hgb Hct MCV MCH MCHC RDW Std Deviation RDW Coeff of Stormy Plt Count MPV Immature Gran % (Auto) Neut % (Auto) Lymph % (Auto) [place] % (Auto) Eos % (Auto) Baso % (Auto) Immature Gran # (Auto) Neut # (Auto) Lymph # (Auto) [place] # (Auto) Eos # (Auto) Baso # (Auto) APTT PTT Ratio Sodium 134 L Potassium 3.6 Chloride 95 L Carbon Dioxide 29 Anion Gap 11.0 BUN 69 H Creatinine 2.54 H Est Cr Clr Drug Dosing 15.6 Est GFR ( Amer) 20.2 Est GFR (Non-Af Amer) 17.5 BUN/Creatinine Ratio 27.3 H Glucose 278 H POC Glucose 272 H 218 H Calcium 8.3 L 08/21/19 08/21/19 08/21/19 20:13 21:07 22:09 WBC RBC Hgb Hct MCV MCH MCHC RDW Std Deviation RDW Coeff of Stormy Plt Count MPV Immature Gran % (Auto) Neut % (Auto) Lymph % (Auto) [place] % (Auto) Eos % (Auto) Baso % (Auto) Immature Gran # (Auto) Neut # (Auto) Lymph # (Auto) [place] # (Auto) Eos # (Auto) Baso # (Auto) APTT PTT Ratio Sodium Potassium Chloride Carbon Dioxide Anion Gap BUN Creatinine Est Cr Clr Drug Dosing Est GFR ( Amer) Est GFR (Non-Af Amer) BUN/Creatinine Ratio Glucose POC Glucose 158 H 122 H 88 Calcium 08/21/19 08/21/1919 23:13 23:14 00:10 WBC RBC Hgb Hct MCV MCH MCHC RDW Std Deviation RDW Coeff of Stormy Plt Count MPV Immature Gran % (Auto) Neut % (Auto) Lymph % (Auto) [place] % (Auto) Eos % (Auto) Baso % (Auto) Immature Gran # (Auto) Neut # (Auto) Lymph # (Auto) [place] # (Auto) Eos # (Auto) Baso # (Auto) APTT PTT Ratio Sodium 138 Potassium 3.4 L Chloride 97 L Carbon Dioxide 31 Anion Gap 10.0 BUN 70 H Creatinine 2.54 H Est Cr Clr Drug Dosing 15.6 Est GFR ( Amer) 20.2 Est GFR (Non-Af Amer) 17.5 BUN/Creatinine Ratio 27.7 H Glucose 98 POC Glucose 105 H 98 Calcium 8.5 08/22/19 08/22/19 08/22/19 01:57 04:10 06:33 WBC RBC Hgb Hct MCV MCH MCHC RDW Std Deviation RDW Coeff of Stormy Plt Count MPV Immature Gran % (Auto) Neut % (Auto) Lymph % (Auto) [place] % (Auto) Eos % (Auto) Baso % (Auto) Immature Gran # (Auto) Neut # (Auto) Lymph # (Auto) [place] # (Auto) Eos # (Auto) Baso # (Auto) APTT 43.9 H PTT Ratio 1.6 Sodium Potassium Chloride Carbon Dioxide Anion Gap BUN Creatinine Est Cr Clr Drug Dosing Est GFR ( Amer) Est GFR (Non-Af Amer) BUN/Creatinine Ratio Glucose POC Glucose 114 H 99 Calcium 08/22/19 08/22/19 08/22/19 06:33 06:33 06:37 WBC 10.12 RBC 3.44 L Hgb 10.0 L Hct 29.9 L MCV 86.9 MCH 29.1 MCHC 33.4 RDW Std Deviation 45.6 RDW Coeff of Stormy 14.5 Plt Count 316 MPV 8.6 Immature Gran % (Auto) 0.7 Neut % (Auto) 65.8 Lymph % (Auto) 27.2 [place] % (Auto) 6.1 Eos % (Auto) 0.0 Baso % (Auto) 0.2 Immature Gran # (Auto) 0.07 H Neut # (Auto) 6.66 H Lymph # (Auto) 2.75 [place] # (Auto) 0.62 H Eos # (Auto) 0.00 Baso # (Auto) 0.02 APTT PTT Ratio Sodium 139 Potassium 4.3 D Chloride 101 Carbon Dioxide 30 Anion Gap 8.0 BUN 66 H Creatinine 2.19 H D Est Cr Clr Drug Dosing 18.1 Est GFR ( Amer) 24.2 Est GFR (Non-Af Amer) 20.9 BUN/Creatinine Ratio 29.9 H Glucose 78 POC Glucose 85 Calcium 8.8 08/22/19 08/22/19 08/22/19 07:23 11:20 13:24 WBC RBC Hgb Hct MCV MCH MCHC RDW Std Deviation RDW Coeff of Stormy Plt Count MPV Immature Gran % (Auto) Neut % (Auto) Lymph % (Auto) [place] % (Auto) Eos % (Auto) Baso % (Auto) Immature Gran # (Auto) Neut # (Auto) Lymph # (Auto) [place] # (Auto) Eos # (Auto) Baso # (Auto) APTT 65.9 H* PTT Ratio 2.4 Sodium Potassium Chloride Carbon Dioxide Anion Gap BUN Creatinine Est Cr Clr Drug Dosing Est GFR ( Amer) Est GFR (Non-Af Amer) BUN/Creatinine Ratio Glucose POC Glucose 121 H 117 H Calcium 08/22/19 16:27 WBC RBC Hgb Hct MCV MCH MCHC RDW Std Deviation RDW Coeff of Stormy Plt Count MPV Immature Gran % (Auto) Neut % (Auto) Lymph % (Auto) [place] % (Auto) Eos % (Auto) Baso % (Auto) Immature Gran # (Auto) Neut # (Auto) Lymph # (Auto) [place] # (Auto) Eos # (Auto) Baso # (Auto) APTT PTT Ratio Sodium Potassium Chloride Carbon Dioxide Anion Gap BUN Creatinine Est Cr Clr Drug Dosing Est GFR ( Amer) Est GFR (Non-Af Amer) BUN/Creatinine Ratio Glucose POC Glucose 194 H Calcium
[2019-08-22] MEDS: MAGNESIUM OXIDE 400 MG TAB PO SCH (20:32)
[2019-08-22] MEDS: ASPIRIN 81 MG ECTAB PO SCH (20:32)
[2019-08-22] MEDS: TRAZODONE HCL 50 MG TAB PO SCH (20:32)
[2019-08-22] MEDS: MONTELUKAST SODIUM 10 MG TABLET PO SCH (20:36)
--- NOTE | 2019-08-22 22:01 | Pulmonology Progress Note ---
Date of Service August 22, 2019 Assessment & Plan (1) Pleural effusion due to CHF (congestive heart failure): Patient clinically doing better. Shortness of breath is improved. Saturating 97% on room air with heart rate of 68 at rest. Chest x-ray from 08/21/2019 reviewed there is mild right-sided pleural effusion. Continue with diuresis. No need for thoracentesis. No further recommendation pulmonary perspective for pleural effusion. Will sign off. Recall if needed. (2) Acute respiratory failure with hypoxia: Improving. Recommend walking the patient in the corridor on room air and document saturation. If the saturation falls below 88% on walking will need home oxygen. Continue with laba\ICS and lama inhaler. Taper steroids. (3) DUANE (obstructive sleep apnea): Probable DUANE. Needs outpatient sleep study and pulmonary follow-up. Subjective Patient seen and examined at bedside. No acute distress, no adverse events overnight. Patient feeling better. Shortness of breath is improved. No chest pain, no headache, no nausea, no vomiting. Patient was saturating 97% on room air at rest with heart rate of 68. Review of Systems Review of Systems: All systems reviewed & are unremarkable except as noted in HPI & below Physical Exam Physical Exam: Constitutional: No acute distress HEENT: EOMI, PERRLA Respiratory system: Good air entry bilaterally, no wheeze, no rhonchi, mild right-sided crackles CVS: S1-S2 positive, no murmurs or gallops Abdomen: Soft, nontender, nondistended, positive bowel sounds x4 Extremities: +2 pulses bilaterally radialis/ dorsalis pedis, no edema, no cyanosis Neuro: Awake alert oriented x3 Psych: Normal mood and affect Lymphatic: no cervical or axillary lymphadenopathy Results & Data Vital Signs (Past 12 Hours) Vital Signs Temp Pulse Pulse Resp BP BP Pulse Ox 08/22/19 19:53 36.6 C 69 20 151/77 H 100 08/22/19 19:41 70 16 97 08/22/19 16:00 65 08/22/19 15:24 36.6 C 63 18 151/71 H 97 08/22/19 13:10 63 20 96 08/22/19 11:26 36.6 C 64 18 138/67 98 Laboratory Results 08/22/19 06:33 08/22/19 06:33 Diagnostic Findings Chest x-ray from 08/21/2019 reviewed. PG Care Time/CCT Total # of Minutes Spent Total Time Spent with Patient: Total time spent is greater than 50% in coordination of care (as documented) at patient's floor/unit and/or counseling patient:
[2019-08-22] MEDS: TRAMADOL HCL 50 MG TABLET PO PRN (22:56)
[2019-08-23] MEDS: IPRATROPIUM BROMIDE NEB SOLN 0.02% 2.5 ML VIAL INH SCH ×2 (01:12→07:04)
[2019-08-23] MEDS: LEVALBUTEROL HCL 0.63 MG/3 ML NEB NEB SCH ×2 (01:12→07:01)
[2019-08-23] MEDS: CARBOHYDRATES FOR HYPOGLYCEMIA PO PRN ×3 (01:35→23:35)
[2019-08-23 06:23] LABS: Basophils # (auto) 0.01 K/uL (0-0.2); Basophils % (auto) 0.1 %; Eosinophils # (auto) 0.07 K/uL (0-0.5); Eosinophils % (auto) 0.6 %; Hematocrit (blood only) 30.6 % (37-47); Hemoglobin 9.9 g/dL (12.0-16.0); Immature Granulocytes # (auto) 0.24 K/uL (0.00-0.02); Immature Granulocytes % (auto) 2.2 %; Mean Corpuscular Hemoglobin 28.5 pg (25-34); Mean Corpuscular Hgb Conc 32.4 g/dL (32-36); Mean Corpuscular Volume 88.2 fL (80-100); Mean Platelet Volume 8.7 fL (7.4-10.4); Monocytes # (auto) 1.15 K/uL (0.11-0.59); Monocytes % (auto) 10.7 %; Neutrophils % (auto) 47.4 %; Platelet Count 298 K/uL (130-400); RDW Coefficient of Variation 14.6 % (11.5-14.5); RDW Standard Deviation 47.2 fL (36.4-46.3); Red Blood Count 3.47 M/uL (4.2-5.4); White Blood Count 10.77 K/uL (4.8-10.8)
[2019-08-23 06:48] LABS: INR 1.2 (0.9-1.1); Partial Thromboplastin Ratio 2.4; Prothrombin Time 11.7 Seconds (9.0-12.0)
[2019-08-23 06:52] LABS: Partial Thromboplastin Time 64.3 Seconds (21.0-31.0)
[2019-08-23 06:54] LABS: Calcium 8.3 mg/dl (8.5-10.1); Creatinine Clr Calc Pharmacy 22.7 ml/min; Est GFR (African American) 31.8; Est GFR (Non-African American) 27.4; Potassium 4.2 mmol/L (3.5-5.1)
[2019-08-23] MEDS: BUDESONIDE 0.5 MG/2 ML VIAL (PULMICORT) NEB SCH (07:04)
[2019-08-23] MEDS: cefUROXime axetil 500 MG TAB PO SCH (08:29)
[2019-08-23] MEDS: INSULIN ASPART 100 UNITS/ML 3 ML PEN SC SCH ×5 (08:29→23:51)
[2019-08-23] MEDS: CLOPIDOGREL BISULFATE 75 MG TAB PO SCH (08:30)
[2019-08-23] MEDS: PANTOprazole 40 MG TAB PO SCH ×2 (08:30→20:53)
[2019-08-23] MEDS: ISOSORBIDE MONO EXTENDED REL 30 MG TABCR PO SCH (08:30)
[2019-08-23] MEDS: ATORVASTATIN 40 MG TAB PO SCH (08:30)
[2019-08-23] MEDS: LIDOCAINE 5% 1 PATCH TD SCH (08:32)
[2019-08-23] MEDS: predniSONE 20 MG TAB PO SCH (08:33)
[2019-08-23] MEDS: METOPROLOL TARTRATE 25 MG TAB PO SCH ×2 (08:35→20:52)
[2019-08-23] MEDS: dilTIAZem HCL 120 MG CAPCR PO SCH (08:37)
[2019-08-23] MEDS ORDERED: LEVALBUTEROL HCL 0.63 MG/3 ML NEB NEB PRN (09:18)
[2019-08-23] MEDS ORDERED: IPRATROPIUM BROMIDE NEB SOLN 0.02% 2.5 ML VIAL INH PRN (09:18)
[2019-08-23] MEDS: HEPARIN SODIUM/DEXTROSE 25,000 UNITS/500 ML BAG IV SCH (09:44)
--- NOTE | 2019-08-23 10:11 | Nephrology Progress Note ---
Date of Service August 23, 2019 Assessment & Plan (1) Acute kidney injury superimposed on CKD: Likely due to ischemic ATN in the setting of hemodynamic instability from AF w/ RVR. Patient has CKD stage III with baseline creatinine of 1.5. Creatinine peaked at 2.5 and now down to 1.75. UACM remarkable mostly for ketones, contaminated specimen; suspect blood protein from contamination/dickinson -Monitor input output -daily bmp -If discharged patient will need to follow-up with nephrology in the office. (2) Labile blood pressure: Blood pressure is controlled on current regimen. No changes today (3) Diastolic CHF: valvular and diastolic HF w/ marked volume overload on exam as evidenced by pl effusions, hypoxia >> she was net -1 L yesterday. IV Lasix was held. -Agree with torsemide 10 mg daily, could start today and continue his outpatient -cont <2 gm daily Na diet -cont 1.5L FR (4) Pleural effusion, bilateral: Pulmonary on board. Recommend conservative management with diuresis. No role for thoracentesis at the moment. Patient clinically much better. Subjective Seen for AMRIE and volume overload. She is feeling better. No SOB or leg swelling. She wants to go home tomorrow. Dickinson was removed yesterday Review of Systems Review of Systems: All systems reviewed & are unremarkable except as noted in HPI & below Physical Exam Physical Exam: General exam: Appears comfortable, no acute distress HEENT: Pupils are equal and reactive to light Neck: No JVD, neck is supple trachea is midline Respiratory system: Clear breath sounds bilaterally. Gastrointestinal: Abdomen is soft, non distended, non tender, bowel sounds are present CVS: Regular rate and rhythm. No murmurs, rubs or gallops Musculoskeletal: No joint or muscle tenderness Extremities: Non tender, no edema, peripheral pulses are present Neuro: Oriented, no tremors, no focal neurological deficits Skin: No rashes Results & Data Vital Signs (Past 12 Hours) Vital Signs Temp Pulse Pulse Resp BP Pulse Ox 08/23/19 07:26 52 L 08/23/19 07:04 57 L 16 98 08/23/19 03:54 37.0 C 56 L 18 125/71 98 08/22/19 23:30 36.5 C 61 17 134/71 97 Laboratory Results Laboratory Results - last 24 hr 08/22/19 08/22/19 08/22/19 11:20 13:24 16:27 WBC RBC Hgb Hct MCV MCH MCHC RDW Std Deviation RDW Coeff of Stormy Plt Count MPV Immature Gran % (Auto) Neut % (Auto) Lymph % (Auto) [place] % (Auto) Eos % (Auto) Baso % (Auto) Immature Gran # (Auto) Neut # (Auto) Lymph # (Auto) [place] # (Auto) Eos # (Auto) Baso # (Auto) PT INR APTT 65.9 H* PTT Ratio 2.4 Sodium Potassium Chloride Carbon Dioxide Anion Gap BUN Creatinine Est Cr Clr Drug Dosing Est GFR ( Amer) Est GFR (Non-Af Amer) BUN/Creatinine Ratio Glucose POC Glucose 117 H 194 H Calcium 08/22/19 08/23/19 08/23/19 20:10 01:30 01:51 WBC RBC Hgb Hct MCV MCH MCHC RDW Std Deviation RDW Coeff of Stormy Plt Count MPV Immature Gran % (Auto) Neut % (Auto) Lymph % (Auto) [place] % (Auto) Eos % (Auto) Baso % (Auto) Immature Gran # (Auto) Neut # (Auto) Lymph # (Auto) [place] # (Auto) Eos # (Auto) Baso # (Auto) PT INR APTT PTT Ratio Sodium Potassium Chloride Carbon Dioxide Anion Gap BUN Creatinine Est Cr Clr Drug Dosing Est GFR ( Amer) Est GFR (Non-Af Amer) BUN/Creatinine Ratio Glucose POC Glucose 217 H 51 L* 60 L* Calcium 08/23/19 08/23/19 08/23/19 02:07 03:59 06:06 WBC RBC Hgb Hct MCV MCH MCHC RDW Std Deviation RDW Coeff of Stormy Plt Count MPV Immature Gran % (Auto) Neut % (Auto) Lymph % (Auto) [place] % (Auto) Eos % (Auto) Baso % (Auto) Immature Gran # (Auto) Neut # (Auto) Lymph # (Auto) [place] # (Auto) Eos # (Auto) Baso # (Auto) PT 11.7 INR 1.2 H APTT 64.3 H* PTT Ratio 2.4 Sodium Potassium Chloride Carbon Dioxide Anion Gap BUN Creatinine Est Cr Clr Drug Dosing Est GFR ( Amer) Est GFR (Non-Af Amer) BUN/Creatinine Ratio Glucose POC Glucose 100 H 102 H Calcium 08/23/19 08/23/1919 06:06 06:06 07:11 WBC 10.77 RBC 3.47 L Hgb 9.9 L Hct 30.6 L MCV 88.2 MCH 28.5 MCHC 32.4 RDW Std Deviation 47.2 H RDW Coeff of Stormy 14.6 H Plt Count 298 MPV 8.7 Immature Gran % (Auto) 2.2 Neut % (Auto) 47.4 Lymph % (Auto) 39.0 [place] % (Auto) 10.7 Eos % (Auto) 0.6 Baso % (Auto) 0.1 Immature Gran # (Auto) 0.24 H Neut # (Auto) 5.10 Lymph # (Auto) 4.20 H [place] # (Auto) 1.15 H Eos # (Auto) 0.07 Baso # (Auto) 0.01 PT INR APTT PTT Ratio Sodium 138 Potassium 4.2 Chloride 102 Carbon Dioxide 29 Anion Gap 7.0 BUN 56 H Creatinine 1.75 H D Est Cr Clr Drug Dosing 22.7 Est GFR ( Amer) 31.8 Est GFR (Non-Af Amer) 27.4 BUN/Creatinine Ratio 32.0 H Glucose 106 H POC Glucose 96 Calcium 8.3 L
--- NOTE | 2019-08-23 11:51 | Cardiology Progress Note ---
Date of Service August 23, 2019 Assessment & Plan (1) Paroxysmal atrial fibrillation: (2) Acute on chronic diastolic heart failure: (3) Pleural effusion, bilateral: (4) LBBB (left bundle branch block): (5) Aortic stenosis: (6) CAD (coronary artery disease): (7) History of CVA (cerebrovascular accident): (8) COPD (chronic obstructive pulmonary disease): (9) Acute kidney injury superimposed on CKD: Volume status markedly improved. IV diuretic therapy discontinued. Creatinine trending downward. Add torsemide 10mg daily in AM. No signs/symptoms of recurrent blood loss. Continue coumadin for goal INR of 2.0-3.0. Patient may discontinue aspirin when INR is therapeutic and continue Coumadin plus clopidogrel long-term. She must continue Plavix at this time due to recent coronary intervention (GAETANO x2, Lcx LPL sajan RCA, 01/2019 in setting of NSTEMI). Continue Cardizem CD at discharge. Transition metoprolol tartrate to succinate formulation. Consider restarting losartan pending review of a.m. labs tomorrow. Subjective Patient seen and examined the bedside. Feeling well from a cardiovascular perspective. No recurrent atrial fibrillation on telemetry. Creatinine trending downward. Respiratory status is stable. INR subtherapeutic. Coumadin restarted yesterday. IV heparin infusing. Review of Systems Review of Systems: All systems reviewed & are unremarkable except as noted in HPI & below Physical Exam Physical Exam: General: NAD, AAO x3, well nourished. Chronically ill. HEENT: Normocephalic. Atraumatic. Conjunctiva pink, no scleral icterus. Neck: No carotid bruits, the carotid upstrokes are brisk. No JVD. No HJR Heart: Regular normal S-1 and S-2. 2-3/6Low pitched mid peaking systolic ejection murmur heard best at the right second intercostal space. PMI is not displaced. No RV heave. Lungs: Diminished breath sounds at the bases bilaterally. No rales, rhonchi, or expiratory wheezing. Abdomen: Normal bowel sounds. Soft. Nontender. No masses or organomegaly. No abdominal bruits. Extremities: No clubbing, cyanosis, or edema. Pulses: radial=2/4, Dorsalis pedis =2/4, posterior tibial=2/4. Neuro: Cranial nerves grossly intact. No focal motor deficit. Results & Data Vital Signs (Past 12 Hours) Vital Signs Temp Pulse Pulse Resp BP Pulse Ox 08/23/19 11:03 36.5 C 60 20 136/63 98 08/23/19 07:26 52 L 08/23/19 07:04 57 L 16 98 08/23/19 03:54 37.0 C 56 L 18 125/71 98 Laboratory Results Laboratory Results - last 24 hr 08/22/19 08/22/19 08/22/19 13:24 16:27 20:10 WBC RBC Hgb Hct MCV MCH MCHC RDW Std Deviation RDW Coeff of Stormy Plt Count MPV Immature Gran % (Auto) Neut % (Auto) Lymph % (Auto) [place] % (Auto) Eos % (Auto) Baso % (Auto) Immature Gran # (Auto) Neut # (Auto) Lymph # (Auto) [place] # (Auto) Eos # (Auto) Baso # (Auto) PT INR APTT 65.9 H* PTT Ratio 2.4 Sodium Potassium Chloride Carbon Dioxide Anion Gap BUN Creatinine Est Cr Clr Drug Dosing Est GFR ( Amer) Est GFR (Non-Af Amer) BUN/Creatinine Ratio Glucose POC Glucose 194 H 217 H Calcium 08/23/19 08/23/19 08/23/19 01:30 01:51 02:07 WBC RBC Hgb Hct MCV MCH MCHC RDW Std Deviation RDW Coeff of Stormy Plt Count MPV Immature Gran % (Auto) Neut % (Auto) Lymph % (Auto) [place] % (Auto) Eos % (Auto) Baso % (Auto) Immature Gran # (Auto) Neut # (Auto) Lymph # (Auto) [place] # (Auto) Eos # (Auto) Baso # (Auto) PT INR APTT PTT Ratio Sodium Potassium Chloride Carbon Dioxide Anion Gap BUN Creatinine Est Cr Clr Drug Dosing Est GFR ( Amer) Est GFR (Non-Af Amer) BUN/Creatinine Ratio Glucose POC Glucose 51 L* 60 L* 100 H Calcium 08/23/19 08/23/19 08/23/19 03:59 06:06 06:06 WBC 10.77 RBC 3.47 L Hgb 9.9 L Hct 30.6 L MCV 88.2 MCH 28.5 MCHC 32.4 RDW Std Deviation 47.2 H RDW Coeff of Stormy 14.6 H Plt Count 298 MPV 8.7 Immature Gran % (Auto) 2.2 Neut % (Auto) 47.4 Lymph % (Auto) 39.0 [place] % (Auto) 10.7 Eos % (Auto) 0.6 Baso % (Auto) 0.1 Immature Gran # (Auto) 0.24 H Neut # (Auto) 5.10 Lymph # (Auto) 4.20 H [place] # (Auto) 1.15 H Eos # (Auto) 0.07 Baso # (Auto) 0.01 PT 11.7 INR 1.2 H APTT 64.3 H* PTT Ratio 2.4 Sodium Potassium Chloride Carbon Dioxide Anion Gap BUN Creatinine Est Cr Clr Drug Dosing Est GFR ( Amer) Est GFR (Non-Af Amer) BUN/Creatinine Ratio Glucose POC Glucose 102 H Calcium 08/23/19 08/23/19 08/23/19 06:06 07:11 11:12 WBC RBC Hgb Hct MCV MCH MCHC RDW Std Deviation RDW Coeff of Stormy Plt Count MPV Immature Gran % (Auto) Neut % (Auto) Lymph % (Auto) [place] % (Auto) Eos % (Auto) Baso % (Auto) Immature Gran # (Auto) Neut # (Auto) Lymph # (Auto) [place] # (Auto) Eos # (Auto) Baso # (Auto) PT INR APTT PTT Ratio Sodium 138 Potassium 4.2 Chloride 102 Carbon Dioxide 29 Anion Gap 7.0 BUN 56 H Creatinine 1.75 H D Est Cr Clr Drug Dosing 22.7 Est GFR ( Amer) 31.8 Est GFR (Non-Af Amer) 27.4 BUN/Creatinine Ratio 32.0 H Glucose 106 H POC Glucose 96 145 H Calcium 8.3 L (1) CAD (coronary artery disease) Associated angina: with unspecified angina Coronary Disease-Associated Artery/Lesion type: [place] artery [place] vs. transplanted heart: [place] heart Qualified Code(s): I25.119 - Atherosclerotic heart disease of [place] coronary artery with unspecified angina pectoris
[2019-08-23] MEDS ORDERED: INSULIN HUMAN NPH SC ONE (12:30)
--- NOTE | 2019-08-23 14:07 | Pharmacy Report ---
Pharmacy Glycemic Short Note 2 - Date of Service August 23, 2019 - Glycemic Short BSG Results (Last 24 hours): 08/22/19 08/22/19 08/23/19 16:27 20:10 01:30 Glucose POC Glucose 194 H 217 H 51 L* 08/23/19 08/23/19 08/23/19 01:51 02:07 03:59 Glucose POC Glucose 60 L* 100 H 102 H 08/23/19 08/23/19 08/23/19 06:06 07:11 11:12 Glucose 106 H POC Glucose 96 145 H Outpatient Anti-diabetic Regimen: * Insulin 70/30 - 55 units qam and 35 units qpm * A1c = 9.5 % (08/17/19) ASSESSMENT: * 78 yr old female well known to the Pharmacy Glycemic Service. * Previous admission data shows that patient generally requires less insulin than outpatient regimen (when not receiving steroids). * Steroid dose reduced yesterday from Prednisone 20 mg PO BID to prednisone 20mg once daily. The order was discontinued prior to the evening administration time. The full NPH dose was given last evening which resulted in a hypoglycemic episode over night. This morning's fasting blood sugar WNL. * Due to lower am bsg's, held NPH dose until lunch bsg was checked. Evening NPH dose held to avoid hypoglycemia since NPH administered shortly after lunch. * Patient received approximately 115 units of insulin yesterday (70 units of which were basal insulin and 45 units from bolus insulin) * BSGs ranging 51-217 mg/dL over past 24 hours. * Loosened CF and CR since steroid dose decreased. * Further loosened CF and CR for bedtime and overnight checks to prevent hypoglycemia. PLAN FOR INPATIENT GLYCEMIC CONTROL: * Holding outpatient 70/30 insulin and will utilize SC basal/bolus with NPH and novolog * Basal insulin - * 35 units NPH with lunch * Evening NPH dose held today due to proximity of lunch time dose. * Bolus insulin - loosened * NovoLog per scale ACHS or Q6hrs while NPO * Goal Range: Low 110 mg/dL - High 140 mg/dL * Correction Factor: 15 mg/dL/unit * Nutritional / Prandial insulin per carb ratio of 1 unit per 5 grams CHO consumed * Bedtime and overnight checks CF: 20 mg/dL/unit CR: 1 unit per 7 grams CHO consumed PLAN FOR DISCHARGE: * Patient's A1c (9.5%) indicates sub-optimal glycemic control. * Outpatient insulin regimen may require adjustment at discharge, particularly if patient will require ongoing steroids. * Please note that the plan above was derived based on current level of insulin resistance and hospital stress. These recommendations are appropriate for inpatient admission only. Plan of care upon discharge will need to be reassessed to avoid potential outpatient hypo/hyperglycemia. Thank you.
[2019-08-23] MEDS: WARFARIN SOD 3 MG TAB PO SCH (15:47)
[2019-08-23] MEDS ORDERED: INSULIN HUMAN NPH SC SCH (16:30)
--- NOTE | 2019-08-23 17:00 | Hospitalist Progress Note ---
Date of Service August 23, 2019 Assessment & Plan (1) Hypoxia: 70-year-old female with history of CAD, COPD, diabetes, hypertension, CVA, recurrent pancreatitis, Presenting with shortness of breath. HYPOXIA SECONDARY TO BILATERAL PLEURAL EFFUSION, LIKELY FROM VALVULAR AND DIASTOLIC CHF Now weaned off oxygen supplementation Diuresed well, Lasix discontinued, torsemide 10 mg p.o. daily started Will taper prednisone, nebs, given for possible component of COPD exacerbation; pulmonary service consulted, deferring plans for thoracentesis at this time ATRIAL FIBRILLATION ON RAPID VENTRICULAR RESPONSE Now in sinus rhythm Diltiazem added to metoprolol On heparin drip, Coumadin 3 mg p.o. started INR 1.2, monitor daily ACUTE RENAL FAILURE ON CKD STAGE III Baseline creatinine 1.2-1.4 Creatinine improved further, 1.7 today Monitor closely while on diuretics HEMATURIA, Klebsiella UTI No recurrence Hg stable Heparin, ASA, Plavix continued Ceftriaxone changed to cefuroxime p.o., continue to complete 7 days Urologist consulted, appreciate recommendations LOWER BACK PAIN, LIKELY MUSCULOSKELETAL ETIOLOGY CT abdomen and pelvis to rule out retroperitoneal hemorrhage: negative PRN tramadol, Lidoderm patch, warm compress Resolved CAD, S/P GAETANO JANUARY 2019 Continue aspirin, Plavix, metoprolol Aspirin to be discontinued once INR is therapeutic Continue Plavix indefinitely COPD With exacerbation, management per #1 DIABETES TYPE 2 Pharmacist consulted for glycemic control Monitor HYPERTENSION Stable, continue Imdur, metoprolol HISTORY OF CVA Continue aspirin, Plavix, atorvastatin DVT prophylaxis Currently on heparin drip plus Coumadin INR 1.2 Disposition PT/OT evaluation Patient normally lives at home with family Subjective Follow-up for hypoxia, pleural effusion Seen resting in bed, comfortable, remains stable on room air States she continues to feel improved No shortness of breath, no cough No bleeding, no hematuria Denies voiding problems No other symptoms Review of Systems Review of Systems: All systems reviewed & are unremarkable except as noted in HPI & below Physical Exam Physical Exam: General- oriented x 3, not in distress, speaks in sentences with no effort or accessory muscle use Eyes- anicteric Neck- no JVD Lungs- clear breath sounds, no crackles, no wheezing bilaterally Heart- normal rate, regular rhythm; no murmurs Abdomen- normal bowel sounds, nondistended, soft, nontender Extremities- no pretibial edema, no calf tenderness Neuro- alert, oriented x 3; no gross focal neurologic deficits Skin- warm & dry Results & Data Vital Signs (Past 12 Hours) Vital Signs Temp Pulse Pulse Resp BP Pulse Ox 08/23/19 15:15 61 08/23/19 15:06 36.7 C 67 19 115/65 99 08/23/19 11:03 36.5 C 60 20 136/63 98 08/23/19 07:26 52 L 08/23/19 07:04 57 L 16 98 Laboratory Results Laboratory Results - last 24 hr 08/22/19 08/23/19 08/23/19 20:10 01:30 01:51 WBC RBC Hgb Hct MCV MCH MCHC RDW Std Deviation RDW Coeff of Stormy Plt Count MPV Immature Gran % (Auto) Neut % (Auto) Lymph % (Auto) [place] % (Auto) Eos % (Auto) Baso % (Auto) Immature Gran # (Auto) Neut # (Auto) Lymph # (Auto) [place] # (Auto) Eos # (Auto) Baso # (Auto) PT INR APTT PTT Ratio Sodium Potassium Chloride Carbon Dioxide Anion Gap BUN Creatinine Est Cr Clr Drug Dosing Est GFR ( Amer) Est GFR (Non-Af Amer) BUN/Creatinine Ratio Glucose POC Glucose 217 H 51 L* 60 L* Calcium 08/23/19 08/23/19 08/23/19 02:07 03:59 06:06 WBC RBC Hgb Hct MCV MCH MCHC RDW Std Deviation RDW Coeff of Stormy Plt Count MPV Immature Gran % (Auto) Neut % (Auto) Lymph % (Auto) [place] % (Auto) Eos % (Auto) Baso % (Auto) Immature Gran # (Auto) Neut # (Auto) Lymph # (Auto) [place] # (Auto) Eos # (Auto) Baso # (Auto) PT 11.7 INR 1.2 H APTT 64.3 H* PTT Ratio 2.4 Sodium Potassium Chloride Carbon Dioxide Anion Gap BUN Creatinine Est Cr Clr Drug Dosing Est GFR ( Amer) Est GFR (Non-Af Amer) BUN/Creatinine Ratio Glucose POC Glucose 100 H 102 H Calcium 08/23/19 08/23/19 08/23/19 06:06 06:06 07:11 WBC 10.77 RBC 3.47 L Hgb 9.9 L Hct 30.6 L MCV 88.2 MCH 28.5 MCHC 32.4 RDW Std Deviation 47.2 H RDW Coeff of Stormy 14.6 H Plt Count 298 MPV 8.7 Immature Gran % (Auto) 2.2 Neut % (Auto) 47.4 Lymph % (Auto) 39.0 [place] % (Auto) 10.7 Eos % (Auto) 0.6 Baso % (Auto) 0.1 Immature Gran # (Auto) 0.24 H Neut # (Auto) 5.10 Lymph # (Auto) 4.20 H [place] # (Auto) 1.15 H Eos # (Auto) 0.07 Baso # (Auto) 0.01 PT INR APTT PTT Ratio Sodium 138 Potassium 4.2 Chloride 102 Carbon Dioxide 29 Anion Gap 7.0 BUN 56 H Creatinine 1.75 H D Est Cr Clr Drug Dosing 22.7 Est GFR ( Amer) 31.8 Est GFR (Non-Af Amer) 27.4 BUN/Creatinine Ratio 32.0 H Glucose 106 H POC Glucose 96 Calcium 8.3 L 08/23/19 08/23/19 11:12 16:09 WBC RBC Hgb Hct MCV MCH MCHC RDW Std Deviation RDW Coeff of Stormy Plt Count MPV Immature Gran % (Auto) Neut % (Auto) Lymph % (Auto) [place] % (Auto) Eos % (Auto) Baso % (Auto) Immature Gran # (Auto) Neut # (Auto) Lymph # (Auto) [place] # (Auto) Eos # (Auto) Baso # (Auto) PT INR APTT PTT Ratio Sodium Potassium Chloride Carbon Dioxide Anion Gap BUN Creatinine Est Cr Clr Drug Dosing Est GFR ( Amer) Est GFR (Non-Af Amer) BUN/Creatinine Ratio Glucose POC Glucose 145 H 193 H Calcium
[2019-08-23] MEDS: MAGNESIUM OXIDE 400 MG TAB PO SCH (20:52)
[2019-08-23] MEDS: TRAZODONE HCL 50 MG TAB PO SCH (20:52)
[2019-08-23] MEDS: ASPIRIN 81 MG ECTAB PO SCH (20:53)
[2019-08-23] MEDS: MONTELUKAST SODIUM 10 MG TABLET PO SCH (20:53)
[2019-08-23] MEDS ORDERED: INSULIN ASPART 100 UNITS/ML 3 ML PEN SC SCH (21:00)
[2019-08-24] MEDS: INSULIN ASPART 100 UNITS/ML 3 ML PEN SC SCH ×5 (04:01→21:01)
[2019-08-24 06:25] LABS: Hematocrit (blood only) 31.4 % (37-47); Hemoglobin 10.3 g/dL (12.0-16.0); Mean Corpuscular Hemoglobin 28.9 pg (25-34); Mean Corpuscular Hgb Conc 32.8 g/dL (32-36); Mean Platelet Volume 8.7 fL (7.4-10.4); Nucleated RBC # (auto) 0.03 K/uL (0-0); Nucleated RBC % (auto) 0.2 %; Platelet Count 287 K/uL (130-400); RDW Coefficient of Variation 14.6 % (11.5-14.5); RDW Standard Deviation 47.1 fL (36.4-46.3); Red Blood Count 3.57 M/uL (4.2-5.4); White Blood Count 13.13 K/uL (4.8-10.8)
[2019-08-24 06:45] LABS: INR 1.1 (0.9-1.1); Partial Thromboplastin Ratio 1.9; Prothrombin Time 11.5 Seconds (9.0-12.0)
[2019-08-24 06:50] LABS: Partial Thromboplastin Time 52.7 Seconds (21.0-31.0)
[2019-08-24 07:01] LABS: BUN Creatinine Ratio 29.4 (10-20); Calcium 8.5 mg/dl (8.5-10.1); Creatinine Clr Calc Pharmacy 25.8 ml/min; Est GFR (African American) 36.5; Est GFR (Non-African American) 31.5; Potassium 4.3 mmol/L (3.5-5.1)
[2019-08-24] MEDS ORDERED: INSULIN HUMAN NPH SC SCH ×2 (07:30→07:43)
[2019-08-24 08:07] LABS: Acanthocytes 1+; Basophils # (auto) 0.02 K/uL (0-0.2); Basophils % (auto) 0.2 %; Eosinophils # (auto) 0.09 K/uL (0-0.5); Eosinophils % (auto) 0.7 %; Immature Granulocytes # (auto) 0.33 K/uL (0.00-0.02); Immature Granulocytes % (auto) 2.5 %; Lymphocytes # (auto) 5.33 K/uL (1.2-3.4); Lymphocytes % (auto) 40.6 %; Monocytes # (auto) 1.35 K/uL (0.11-0.59); Monocytes % (auto) 10.3 %; Neutrophils # (auto) 6.01 K/uL (1.4-6.5); Neutrophils % (auto) 45.7 %
[2019-08-24] MEDS: ATORVASTATIN 40 MG TAB PO SCH (08:45)
[2019-08-24] MEDS: TORSEMIDE 10 MG TAB PO SCH (08:45)
[2019-08-24] MEDS: dilTIAZem HCL 120 MG CAPCR PO SCH (08:45)
[2019-08-24] MEDS: predniSONE 20 MG TAB PO SCH (08:45)
[2019-08-24] MEDS: CLOPIDOGREL BISULFATE 75 MG TAB PO SCH (08:46)
[2019-08-24] MEDS: PANTOprazole 40 MG TAB PO SCH ×2 (08:46→21:00)
[2019-08-24] MEDS: ISOSORBIDE MONO EXTENDED REL 30 MG TABCR PO SCH (08:46)
[2019-08-24] MEDS: cefUROXime axetil 500 MG TAB PO SCH (08:47)
[2019-08-24] MEDS: METOPROLOL TARTRATE 25 MG TAB PO SCH (08:47)
[2019-08-24] MEDS: LIDOCAINE 5% 1 PATCH TD SCH (08:47)
[2019-08-24] MEDS: HEPARIN SODIUM/DEXTROSE 25,000 UNITS/500 ML BAG IV SCH (10:39)
--- NOTE | 2019-08-24 13:52 | Cardiology Progress Note ---
Date of Service August 24, 2019 Assessment & Plan (1) Paroxysmal atrial fibrillation: (2) Acute on chronic diastolic heart failure: (3) Pleural effusion, bilateral: (4) LBBB (left bundle branch block): (5) Aortic stenosis: (6) CAD (coronary artery disease): (7) History of CVA (cerebrovascular accident): (8) COPD (chronic obstructive pulmonary disease): (9) Acute kidney injury superimposed on CKD: Increase Coumadin to 5 mg daily. Repeat INR in a.m. Discontinue aspirin when INR is therapeutic. Continue Coumadin plus clopidogrel long-term. She must continue Plavix at this time due to recent coronary intervention (GAETANO x2, Lcx LPL sajan RCA, 01/2019 in setting of NSTEMI). Continue torsemide 10mg daily in AM. Continue Cardizem CD at discharge. Transition metoprolol tartrate to succinate. Consider restarting losartan pending review of a.m. labs. Subjective Patient seen and examined the bedside. Feeling well from a cardiovascular perspective. Denies chest pain or unusual shortness of breath. No orthopnea or PND. No recurrent atrial fibrillation on telemetry. Tolerating medications. INR remains subtherapeutic. No recurrent hematuria. Review of Systems Review of Systems: All systems reviewed & are unremarkable except as noted in HPI & below Physical Exam Physical Exam: General: NAD, AAO x3, well nourished. Chronically ill. HEENT: Normocephalic. Atraumatic. Conjunctiva pink, no scleral icterus. Neck: No carotid bruits, the carotid upstrokes are brisk. No JVD. No HJR Heart: Regular normal S-1 and S-2. 2-3/6 Low pitched mid peaking systolic ejection murmur heard best at the right second intercostal space. PMI is not displaced. No RV heave. Lungs: Diminished breath sounds at the bases bilaterally. No rales, rhonchi, or expiratory wheezing. Abdomen: Normal bowel sounds. Soft. Nontender. No masses or organomegaly. No abdominal bruits. Extremities: No clubbing, cyanosis, or edema. Pulses: radial=2/4, Dorsalis pedis =2/4, posterior tibial=2/4. Neuro: Cranial nerves grossly intact. No focal motor deficit. Results & Data Vital Signs (Past 12 Hours) Vital Signs Temp Pulse Resp BP Pulse Ox 08/24/19 11:18 36.7 C 61 20 112/72 99 08/24/19 07:05 36.7 C 63 16 157/83 H 98 08/24/19 03:57 36.8 C 64 16 136/55 L 97 (1) CAD (coronary artery disease) Coronary Disease-Associated Artery/Lesion type: [place] artery [place] vs. transplanted heart: [place] heart Associated angina: with unspecified angina Qualified Code(s): I25.119 - Atherosclerotic heart disease of [place] coronary artery with unspecified angina pectoris
--- NOTE | 2019-08-24 14:01 | Pharmacy Report ---
Pharmacy Glycemic Short Note 2 - Date of Service August 24, 2019 - Glycemic Short BSG Results (Last 24 hours): 08/23/19 08/23/19 08/23/19 16:09 20:06 23:33 Glucose POC Glucose 193 H 165 H 61 L* 08/23/19 08/24/19 08/24/19 23:50 03:59 06:10 Glucose 75 POC Glucose 81 119 H 08/24/19 08/24/19 08/24/19 07:18 09:53 11:15 Glucose POC Glucose 71 110 H 94 Outpatient Anti-diabetic Regimen: * Insulin 70/30 - 55 units qam and 35 units qpm * A1c = 9.5 % (08/17/19) ASSESSMENT: 08/24 * Prednisone continues at 20 mg po daily in the morning * Fasting this morning 71, did have BSG of 61 overnight, patient only received 35 units of NPH yesterday, reduced AM dose, and will set scale for dinner dose up to 15 units * Patient utilized 63 units of insulin yesterday (35 units basal, 28 bolus) * BSG ranged from 61-193 in previous 24 hours. Lunch BSG 94, Loosened CF and carb ratio at all times 08/23 * 78 yr old female well known to the Pharmacy Glycemic Service. * Previous admission data shows that patient generally requires less insulin than outpatient regimen (when not receiving steroids). * Steroid dose reduced yesterday from Prednisone 20 mg PO BID to prednisone 20mg once daily. The order was discontinued prior to the evening administration time. The full NPH dose was given last evening which resulted in a hypoglycemic episode over night. This morning's fasting blood sugar WNL. * Due to lower am bsg's, held NPH dose until lunch bsg was checked. Evening NPH dose held to avoid hypoglycemia since NPH administered shortly after lunch. * Patient received approximately 115 units of insulin yesterday (70 units of which were basal insulin and 45 units from bolus insulin) * BSGs ranging 51-217 mg/dL over past 24 hours. * Loosened CF and CR since steroid dose decreased. * Further loosened CF and CR for bedtime and overnight checks to prevent hypoglycemia. PLAN FOR INPATIENT GLYCEMIC CONTROL: * Holding outpatient 70/30 insulin and will utilize SC basal/bolus with NPH and novolog * Basal insulin - * 25 units NPH with breakfast * Scale at dinner: BSG <140 hold; 140-180: 5 units: >180 10 units * Bolus insulin - loosened * NovoLog per scale ACHS or Q6hrs while NPO * Goal Range: Low 110 mg/dL - High 140 mg/dL * Correction Factor: 15 mg/dL/unit * Nutritional / Prandial insulin per carb ratio of 1 unit per 5 grams CHO consumed * Bedtime and overnight checks CF: 20 mg/dL/unit CR: 1 unit per 7 grams CHO consumed PLAN FOR DISCHARGE: * Patient's A1c (9.5%) indicates sub-optimal glycemic control. * Outpatient insulin regimen may require adjustment at discharge, particularly if patient will require ongoing steroids. * Please note that the plan above was derived based on current level of insulin resistance and hospital stress. These recommendations are appropriate for inpatient admission only. Plan of care upon discharge will need to be reassessed to avoid potential outpatient hypo/hyperglycemia. Thank you.
[2019-08-24] MEDS ORDERED: WARFARIN SOD 3 MG TAB PO SCH (16:00)
[2019-08-24] MEDS: WARFARIN SOD 5 MG TAB PO SCH (17:00)
[2019-08-24] MEDS: INSULIN HUMAN NPH SC SCH (17:01)
--- NOTE | 2019-08-24 17:36 | Nephrology Progress Note ---
Date of Service August 24, 2019 Assessment & Plan (1) Acute kidney injury superimposed on CKD: Likely due to ischemic ATN in the setting of hemodynamic instability from AF w/ RVR. Patient has CKD stage III with baseline creatinine of 1.5. Creatinine peaked at 2.5 and now down to 1.5. UACM remarkable mostly for ketones, contaminated specimen; suspect blood protein from contamination/dickinson -Monitor input output -daily bmp -If discharged patient will need to follow-up with nephrology in the office. (2) Labile blood pressure: Blood pressure is controlled on current regimen. No changes today (3) Diastolic CHF: valvular and diastolic HF w/ marked volume overload on exam as evidenced by pl effusions, hypoxia >> she was net -1 L yesterday. IV Lasix was held. -COntinue torsemide 10 mg daily, and continue his outpatient -cont <2 gm daily Na diet -cont 1.5L FR (4) Pleural effusion, bilateral: Pulmonary on board. Recommend conservative management with diuresis. No role for thoracentesis at the moment. Patient clinically much better. Subjective Patient seen during morning rounds. She feels better. No SOB or leg swelling. Diuresing well. INR still low. She is eager to be discharged Review of Systems Review of Systems: All systems reviewed & are unremarkable except as noted in HPI & below Physical Exam Physical Exam: General exam: Appears comfortable, no acute distress HEENT: Pupils are equal and reactive to light Neck: No JVD, neck is supple trachea is midline Respiratory system: Clear breath sounds bilaterally. Gastrointestinal: Abdomen is soft, non distended, non tender, bowel sounds are present CVS: Regular rate and rhythm. No murmurs, rubs or gallops Musculoskeletal: No joint or muscle tenderness Extremities: Non tender, no edema, peripheral pulses are present Neuro: Oriented, no tremors, no focal neurological deficits Skin: No rashes Results & Data Vital Signs (Past 12 Hours) Vital Signs Temp Pulse Pulse Pulse Resp BP BP 08/24/19 16:00 71 08/24/19 15:08 36.7 C 63 18 128/73 08/24/19 14:20 67 08/24/19 11:18 36.7 C 61 20 112/72 08/24/19 07:05 36.7 C 63 16 157/83 H Pulse Ox 08/24/19 16:00 08/24/19 15:08 98 08/24/19 14:20 08/24/19 11:18 99 08/24/19 07:05 98 Laboratory Results Laboratory Results - last 24 hr 08/23/19 08/23/19 08/23/19 20:06 23:33 23:50 WBC RBC Hgb Hct MCV MCH MCHC RDW Std Deviation RDW Coeff of Stormy Plt Count MPV Immature Gran % (Auto) Neut % (Auto) Lymph % (Auto) [place] % (Auto) Eos % (Auto) Baso % (Auto) Immature Gran # (Auto) Neut # (Auto) Lymph # (Auto) [place] # (Auto) Eos # (Auto) Baso # (Auto) Absolute Nucleated RBC Nucleated RBC % (auto) Acanthocytes ([place]) PT INR APTT PTT Ratio Sodium Potassium Chloride Carbon Dioxide Anion Gap BUN Creatinine Est Cr Clr Drug Dosing Est GFR ( Amer) Est GFR (Non-Af Amer) BUN/Creatinine Ratio Glucose POC Glucose 165 H 61 L* 81 Calcium 08/24/19 08/24/19 08/24/19 03:59 06:10 06:10 WBC 13.13 H RBC 3.57 L Hgb 10.3 L Hct 31.4 L MCV 88.0 MCH 28.9 MCHC 32.8 RDW Std Deviation 47.1 H RDW Coeff of Stormy 14.6 H Plt Count 287 MPV 8.7 Immature Gran % (Auto) 2.5 Neut % (Auto) 45.7 Lymph % (Auto) 40.6 [place] % (Auto) 10.3 Eos % (Auto) 0.7 Baso % (Auto) 0.2 Immature Gran # (Auto) 0.33 H Neut # (Auto) 6.01 Lymph # (Auto) 5.33 H [place] # (Auto) 1.35 H Eos # (Auto) 0.09 Baso # (Auto) 0.02 Absolute Nucleated RBC 0.03 H Nucleated RBC % (auto) 0.2 Acanthocytes ([place]) 1+ PT INR APTT PTT Ratio Sodium 140 Potassium 4.3 Chloride 104 Carbon Dioxide 27 Anion Gap 9.0 BUN 46 H Creatinine 1.56 H Est Cr Clr Drug Dosing 25.8 Est GFR ( Amer) 36.5 Est GFR (Non-Af Amer) 31.5 BUN/Creatinine Ratio 29.4 H Glucose 75 POC Glucose 119 H Calcium 8.5 08/24/19 08/24/19 08/24/19 06:10 07:18 09:53 WBC RBC Hgb Hct MCV MCH MCHC RDW Std Deviation RDW Coeff of Stormy Plt Count MPV Immature Gran % (Auto) Neut % (Auto) Lymph % (Auto) [place] % (Auto) Eos % (Auto) Baso % (Auto) Immature Gran # (Auto) Neut # (Auto) Lymph # (Auto) [place] # (Auto) Eos # (Auto) Baso # (Auto) Absolute Nucleated RBC Nucleated RBC % (auto) Acanthocytes ([place]) PT 11.5 INR 1.1 APTT 52.7 H* PTT Ratio 1.9 Sodium Potassium Chloride Carbon Dioxide Anion Gap BUN Creatinine Est Cr Clr Drug Dosing Est GFR ( Amer) Est GFR (Non-Af Amer) BUN/Creatinine Ratio Glucose POC Glucose 71 110 H Calcium 08/24/19 08/24/19 11:15 16:03 WBC RBC Hgb Hct MCV MCH MCHC RDW Std Deviation RDW Coeff of Stormy Plt Count MPV Immature Gran % (Auto) Neut % (Auto) Lymph % (Auto) [place] % (Auto) Eos % (Auto) Baso % (Auto) Immature Gran # (Auto) Neut # (Auto) Lymph # (Auto) [place] # (Auto) Eos # (Auto) Baso # (Auto) Absolute Nucleated RBC Nucleated RBC % (auto) Acanthocytes ([place]) PT INR APTT PTT Ratio Sodium Potassium Chloride Carbon Dioxide Anion Gap BUN Creatinine Est Cr Clr Drug Dosing Est GFR ( Amer) Est GFR (Non-Af Amer) BUN/Creatinine Ratio Glucose POC Glucose 94 207 H Calcium
--- NOTE | 2019-08-24 18:25 | Hospitalist Progress Note ---
Date of Service August 24, 2019 Assessment & Plan (1) Hypoxia: 70-year-old female with history of CAD, COPD, diabetes, hypertension, CVA, recurrent pancreatitis, Presenting with shortness of breath. HYPOXIA SECONDARY TO BILATERAL PLEURAL EFFUSION, LIKELY FROM VALVULAR AND DIASTOLIC CHF Now weaned off oxygen supplementation Diuresed well, Lasix discontinued, torsemide 10 mg p.o. daily started taper prednisone, nebs, given for possible component of COPD exacerbation; pulmonary service consulted, thoracentesis contemplated patient responded with diuretics ATRIAL FIBRILLATION ON RAPID VENTRICULAR RESPONSE Diagnosis Now in sinus rhythm Diltiazem added to metoprolol On heparin drip, Coumadin 3 mg p.o. x2 days, changed to 5 mg p.o. daily Monitor INR ACUTE RENAL FAILURE ON CKD STAGE III Baseline creatinine 1.2-1.4 Creatinine improved further, 1.5 today Monitor closely while on diuretics HEMATURIA, Klebsiella UTI No recurrence Hg stable Heparin, ASA, Plavix continued Ceftriaxone changed to cefuroxime p.o., continue to complete 7 days Urologist consulted, appreciate recommendations LOWER BACK PAIN, LIKELY MUSCULOSKELETAL ETIOLOGY CT abdomen and pelvis to rule out retroperitoneal hemorrhage: negative PRN tramadol, Lidoderm patch, warm compress Resolved CAD, S/P GAETANO JANUARY 2019 Continue aspirin, Plavix, metoprolol Aspirin to be discontinued once INR is therapeutic Continue Plavix indefinitely COPD With exacerbation, management per #1 DIABETES TYPE 2 Pharmacist consulted for glycemic control Monitor HYPERTENSION Stable, continue Imdur, metoprolol HISTORY OF CVA Continue aspirin, Plavix, atorvastatin DVT prophylaxis Currently on heparin drip plus Coumadin INR 1.2 Disposition PT/OT evaluation Patient normally lives at home with family Subjective Follow-up for atrial fibrillation, pleural effusions, hypoxia Seen resting in bed, comfortable, watching TV States she continues to feel improved Denies shortness of breath, cough No chest pain No hematuria or problems voiding No bleeding Denies other symptoms Review of Systems Review of Systems: All systems reviewed & are unremarkable except as noted in HPI & below Physical Exam Physical Exam: General- oriented x 3, not in distress, speaks in sentences with no effort or accessory muscle use Eyes- anicteric Neck- no JVD Lungs- clear breath sounds bilaterally, no crackles, no wheezing Heart- normal rate, regular rhythm; no murmurs Abdomen- normal bowel sounds, nondistended, soft, nontender Extremities- no pretibial edema, no calf tenderness Neuro- alert, oriented x 3; no gross focal neurologic deficits Skin- warm & dry Results & Data Vital Signs (Past 12 Hours) Vital Signs Temp Pulse Pulse Pulse Resp BP BP 08/24/19 17:42 36.7 C 70 18 112/61 08/24/19 16:00 71 08/24/19 15:08 36.7 C 63 18 128/73 08/24/19 14:20 67 08/24/19 11:18 36.7 C 61 20 112/72 08/24/19 07:05 36.7 C 63 16 157/83 H Pulse Ox 08/24/19 17:42 99 08/24/19 16:00 08/24/19 15:08 98 08/24/19 14:20 08/24/19 11:18 99 08/24/19 07:05 98
[2019-08-24] MEDS: ASPIRIN 81 MG ECTAB PO SCH (21:02)
[2019-08-24] MEDS: TRAZODONE HCL 50 MG TAB PO SCH (21:02)
[2019-08-24] MEDS: MAGNESIUM OXIDE 400 MG TAB PO SCH (21:02)
[2019-08-24] MEDS: MONTELUKAST SODIUM 10 MG TABLET PO SCH (21:03)
[2019-08-24] MEDS: METOPROLOL SUCC 25MG EXT REL TAB PO SCH (21:05)
[2019-08-25] MEDS: INSULIN ASPART 100 UNITS/ML 3 ML PEN SC SCH ×4 (00:29→17:42)
[2019-08-25] MEDS: CARBOHYDRATES FOR HYPOGLYCEMIA PO PRN (04:12)
[2019-08-25] MEDS: HEPARIN 100 UNIT/ML 5ML FLUSH FLUSH PRN ×2 (05:24→14:29)
[2019-08-25 06:18] LABS: Basophils # (auto) 0.02 K/uL (0-0.2); Basophils % (auto) 0.2 %; Eosinophils # (auto) 0.11 K/uL (0-0.5); Eosinophils % (auto) 0.9 %; Hematocrit (blood only) 30.1 % (37-47); Hemoglobin 10.1 g/dL (12.0-16.0); Immature Granulocytes # (auto) 0.46 K/uL (0.00-0.02); Immature Granulocytes % (auto) 3.6 %; Lymphocytes # (auto) 4.96 K/uL (1.2-3.4); Lymphocytes % (auto) 38.7 %; Mean Corpuscular Hemoglobin 29.6 pg (25-34); Mean Corpuscular Hgb Conc 33.6 g/dL (32-36); Mean Corpuscular Volume 88.3 fL (80-100); Mean Platelet Volume 9.1 fL (7.4-10.4); Monocytes # (auto) 1.43 K/uL (0.11-0.59); Monocytes % (auto) 11.2 %; Neutrophils # (auto) 5.84 K/uL (1.4-6.5); Neutrophils % (auto) 45.4 %; Platelet Count 308 K/uL (130-400); RDW Coefficient of Variation 14.8 % (11.5-14.5); RDW Standard Deviation 47.6 fL (36.4-46.3); Red Blood Count 3.41 M/uL (4.2-5.4); White Blood Count 12.82 K/uL (4.8-10.8)
[2019-08-25 06:41] LABS: INR 1.2 (0.9-1.1); Partial Thromboplastin Ratio 1.9; Prothrombin Time 11.9 Seconds (9.0-12.0)
[2019-08-25 06:46] LABS: Partial Thromboplastin Time 52.4 Seconds (21.0-31.0)
[2019-08-25 07:05] LABS: BUN Creatinine Ratio 26.8 (10-20); Calcium 8.5 mg/dl (8.5-10.1); Creatinine Clr Calc Pharmacy 22.5 ml/min; Est GFR (African American) 30.9; Est GFR (Non-African American) 26.7; Potassium 3.9 mmol/L (3.5-5.1)
[2019-08-25] MEDS: dilTIAZem HCL 120 MG CAPCR PO SCH (09:53)
[2019-08-25] MEDS: cefUROXime axetil 500 MG TAB PO SCH (09:54)
[2019-08-25] MEDS: TORSEMIDE 10 MG TAB PO SCH (09:55)
[2019-08-25] MEDS: ISOSORBIDE MONO EXTENDED REL 30 MG TABCR PO SCH (09:56)
[2019-08-25] MEDS: LIDOCAINE 5% 1 PATCH TD SCH (09:56)
[2019-08-25] MEDS: ATORVASTATIN 40 MG TAB PO SCH (09:58)
[2019-08-25] MEDS: CLOPIDOGREL BISULFATE 75 MG TAB PO SCH (09:58)
[2019-08-25] MEDS: predniSONE 20 MG TAB PO SCH (10:00)
[2019-08-25] MEDS: PANTOprazole 40 MG TAB PO SCH ×2 (10:01→20:47)
[2019-08-25] MEDS: METOPROLOL SUCC 25MG EXT REL TAB PO SCH ×2 (10:02→20:53)
[2019-08-25] MEDS: INSULIN HUMAN NPH SC SCH ×2 (10:19→17:41)
--- NOTE | 2019-08-25 10:36 | Pharmacy Report ---
Pharmacy Glycemic Short Note 2 - Date of Service August 25, 2019 - Glycemic Short BSG Results (Last 24 hours): 08/24/19 08/24/19 08/24/19 11:15 16:03 19:54 Glucose POC Glucose 94 207 H 292 H 08/25/19 08/25/19 08/25/19 00:01 04:08 04:28 Glucose POC Glucose 278 H 63 L* 85 08/25/19 08/25/19 05:19 07:42 Glucose 77 POC Glucose 89 Outpatient Anti-diabetic Regimen: * Insulin 70/30 - 55 units qam and 35 units qpm * A1c = 9.5 % (08/17/19) ASSESSMENT: 08/25 * 78 yr old female well known to the Pharmacy Glycemic Service. * Prednisone continues at 20 mg po daily in the morning (day 4 of this dosing) * Continues on heparin drip at mL/hr * Fasting BSG this morning of 89 mg/dL with overnight BSG of 63 mg/dL - likely due to significant amount of Novolog given at dinner and HS * BSGs ranging 63-278 mg/dL over past 24 hours * Patient utilized 72 units of insulin yesterday (35 units basal, 37 bolus) PLAN FOR INPATIENT GLYCEMIC CONTROL: * Holding outpatient 70/30 insulin and will utilize SC basal/bolus with NPH and novolog * Basal insulin - * 25 units NPH with breakfast * Will again consider scale at dinner: BSG <140 hold; 140-180: 5 units: >180 10 units * Bolus insulin - continue current parameters, will consider looser parameters with dinner and HS * NovoLog per scale ACHS or Q6hrs while NPO * Goal Range: Low 110 mg/dL - High 140 mg/dL * Correction Factor: 20 mg/dL/unit * Nutritional / Prandial insulin per carb ratio of 1 unit per 8 grams CHO consumed PLAN FOR DISCHARGE: * Patient's A1c (9.5%) indicates sub-optimal glycemic control. * Outpatient insulin regimen may require adjustment at discharge, particularly if patient will require ongoing steroids. * Please note that the plan above was derived based on current level of insulin resistance and hospital stress. These recommendations are appropriate for inpatient admission only. Plan of care upon discharge will need to be reassessed to avoid potential outpatient hypo/hyperglycemia. Thank you.
[2019-08-25] MEDS ORDERED: INSULIN ASPART 100 UNITS/ML 3 ML PEN SC SCH (12:15)
[2019-08-25] MEDS: HEPARIN SODIUM/DEXTROSE 25,000 UNITS/500 ML BAG IV SCH (13:13)
[2019-08-25] MEDS: WARFARIN SOD 5 MG TAB PO SCH (16:34)
--- NOTE | 2019-08-25 17:26 | Nephrology Progress Note ---
Date of Service August 25, 2019 Assessment & Plan (1) Acute kidney injury superimposed on CKD: Likely due to ischemic ATN in the setting of hemodynamic instability from AF w/ RVR. Patient has CKD stage III with baseline creatinine of 1.5. Creatinine peaked at 2.5 and dropped to 1.5 but today up to 1.7. UACM remarkable mostly for ketones, contaminated specimen; suspect blood protein from contamination/dickinson -Monitor input output -daily bmp -If discharged patient will need to follow-up with nephrology in the office. (2) Labile blood pressure: Blood pressure is controlled on current regimen. No changes today (3) Diastolic CHF: valvular and diastolic HF w/ marked volume overload on exam as evidenced by pl effusions, hypoxia >> she was net -1 L yesterday. IV Lasix was held. -Continue torsemide 10 mg daily, and continue his outpatient -cont <2 gm daily Na diet -cont 1.5L FR (4) Pleural effusion, bilateral: Pulmonary on board. Recommend conservative management with diuresis. No role for thoracentesis at the moment. Patient clinically much better. Subjective Patient feels about the same. No SOB. Cr slightly up. Review of Systems Review of Systems: All systems reviewed & are unremarkable except as noted in HPI & below Physical Exam Physical Exam: General exam: Appears comfortable, no acute distress HEENT: Pupils are equal and reactive to light Neck: No JVD, neck is supple trachea is midline Respiratory system: Clear breath sounds bilaterally. Gastrointestinal: Abdomen is soft, non distended, non tender, bowel sounds are present CVS: Regular rate and rhythm. No murmurs, rubs or gallops Musculoskeletal: No joint or muscle tenderness Extremities: Non tender, no edema, peripheral pulses are present Neuro: Oriented, no tremors, no focal neurological deficits Skin: No rashes Results & Data Vital Signs (Past 12 Hours) Vital Signs Temp Pulse Resp BP Pulse Ox 08/25/19 15:19 36.7 C 62 18 116/63 97 08/25/19 11:46 36.6 C 62 14 120/52 L 97 08/25/19 08:00 36.9 C 71 17 129/82 96 Laboratory Results Laboratory Results - last 24 hr 08/24/19 08/25/19 08/25/19 19:54 00:01 04:08 WBC RBC Hgb Hct MCV MCH MCHC RDW Std Deviation RDW Coeff of Stormy Plt Count MPV Immature Gran % (Auto) Neut % (Auto) Lymph % (Auto) [place] % (Auto) Eos % (Auto) Baso % (Auto) Immature Gran # (Auto) Neut # (Auto) Lymph # (Auto) [place] # (Auto) Eos # (Auto) Baso # (Auto) PT INR APTT PTT Ratio Sodium Potassium Chloride Carbon Dioxide Anion Gap BUN Creatinine Est Cr Clr Drug Dosing Est GFR ( Amer) Est GFR (Non-Af Amer) BUN/Creatinine Ratio Glucose POC Glucose 292 H 278 H 63 L* Calcium 08/25/19 08/25/19 08/25/19 04:28 05:19 05:19 WBC 12.82 H RBC 3.41 L Hgb 10.1 L Hct 30.1 L MCV 88.3 MCH 29.6 MCHC 33.6 RDW Std Deviation 47.6 H RDW Coeff of Stormy 14.8 H Plt Count 308 MPV 9.1 Immature Gran % (Auto) 3.6 Neut % (Auto) 45.4 Lymph % (Auto) 38.7 [place] % (Auto) 11.2 Eos % (Auto) 0.9 Baso % (Auto) 0.2 Immature Gran # (Auto) 0.46 H Neut # (Auto) 5.84 Lymph # (Auto) 4.96 H [place] # (Auto) 1.43 H Eos # (Auto) 0.11 Baso # (Auto) 0.02 PT INR APTT PTT Ratio Sodium 141 Potassium 3.9 Chloride 105 Carbon Dioxide 28 Anion Gap 8.0 BUN 48 H Creatinine 1.79 H Est Cr Clr Drug Dosing 22.5 Est GFR ( Amer) 30.9 Est GFR (Non-Af Amer) 26.7 BUN/Creatinine Ratio 26.8 H Glucose 77 POC Glucose 85 Calcium 8.5 08/25/19 08/25/19 08/25/19 05:19 07:42 11:40 WBC RBC Hgb Hct MCV MCH MCHC RDW Std Deviation RDW Coeff of Stormy Plt Count MPV Immature Gran % (Auto) Neut % (Auto) Lymph % (Auto) [place] % (Auto) Eos % (Auto) Baso % (Auto) Immature Gran # (Auto) Neut # (Auto) Lymph # (Auto) [place] # (Auto) Eos # (Auto) Baso # (Auto) PT 11.9 INR 1.2 H APTT 52.4 H* PTT Ratio 1.9 Sodium Potassium Chloride Carbon Dioxide Anion Gap BUN Creatinine Est Cr Clr Drug Dosing Est GFR ( Amer) Est GFR (Non-Af Amer) BUN/Creatinine Ratio Glucose POC Glucose 89 178 H Calcium 08/25/19 16:27 WBC RBC Hgb Hct MCV MCH MCHC RDW Std Deviation RDW Coeff of Stormy Plt Count MPV Immature Gran % (Auto) Neut % (Auto) Lymph % (Auto) [place] % (Auto) Eos % (Auto) Baso % (Auto) Immature Gran # (Auto) Neut # (Auto) Lymph # (Auto) [place] # (Auto) Eos # (Auto) Baso # (Auto) PT INR APTT PTT Ratio Sodium Potassium Chloride Carbon Dioxide Anion Gap BUN Creatinine Est Cr Clr Drug Dosing Est GFR ( Amer) Est GFR (Non-Af Amer) BUN/Creatinine Ratio Glucose POC Glucose 159 H Calcium
--- NOTE | 2019-08-25 20:41 | Hospitalist Progress Note ---
Date of Service August 25, 2019 Assessment & Plan (1) Hypoxia: 70-year-old female with history of CAD, COPD, diabetes, hypertension, CVA, recurrent pancreatitis, MD Presenting with shortness of breath. HYPOXIA SECONDARY TO BILATERAL PLEURAL EFFUSION, LIKELY FROM VALVULAR AND DIASTOLIC CHF symptom has completely resolved now on room air , with no complain of SOB , LAL or orthopnea Diuresed well, Lasix discontinued,on torsemide 10 mg p.o. daily will cont taper prednisone( no wheeze or bronchospasm ) , cont nebs, given for possible component of COPD exacerbation; pulmonary service consulted, no thoracentesis needed for bilat pleural effusion as patient responded with diuretics ATRIAL FIBRILLATION ON RAPID VENTRICULAR RESPONSE Now in sinus rhythm cardiology eval appreciated Diltiazem added to metoprolol On heparin drip, Coumadin iNR remains sub theraputic Monitor INR ACUTE RENAL FAILURE ON CKD STAGE III Baseline creatinine 1.2-1.4 Creatinine improved , appreciate nephrology eval Monitor closely while on diuretics HEMATURIA, Klebsiella UTI No recurrence Hg stable iv Heparin, ASA, Plavix continued Ceftriaxone changed to cefuroxime p.o., continue to complete 7 days Urologist consulted, appreciate recommendations LOWER BACK PAIN, LIKELY MUSCULOSKELETAL ETIOLOGY CT abdomen and pelvis to rule out retroperitoneal hemorrhage: negative PRN tramadol, Lidoderm patch, warm compress Resolved CAD, S/P GAETANO JANUARY 2019 Continue aspirin, Plavix, metoprolol Aspirin to be discontinued once INR is therapeutic Continue Plavix indefinitely COPD presented With exacerbation-improved , management per #1 DIABETES TYPE 2 Pharmacist consulted for glycemic control appreciate input HYPERTENSION Stable, continue Imdur, metoprolol HISTORY OF CVA Continue aspirin, Plavix, atorvastatin DVT prophylaxis Currently on heparin drip plus Coumadin INR 1.2 Disposition PT/OT evaluation Patient lives at home with family plan to DC home when INR theraputic Subjective pt feels well , no cough Denies chest pain or unusual shortness of breath. No orthopnea or PND. no episode of hematuria Physical Exam Constitutional: WD/WN, vitals as above no acute distress Eyes: PERRL, conjunctivae normal, anicteric sclerae ENMT: external ear and nose normal, oropharynx normal Neck: trachea midline, no thyromegaly Respiratory: normal respiratory effort, lungs clear to auscultation Cardiovascular: RRR, no murmur, no edema Gastrointestinal (Abdomen): normal bowel sounds, soft, nontender, no hepatosplenomegaly Musculoskeletal: no cyanosis or clubbing, extremities motor strength 5/5 Skin: no rashes, warm and dry Neurologic: PERRL, EOMI, accommodation nl, no face palsy, no dysarthria Psychiatric: A+Ox3, euthymic affect Results & Data Vital Signs (Past 12 Hours) Vital Signs Temp Pulse Resp BP Pulse Ox 08/25/19 15:19 36.7 C 62 18 116/63 97 08/25/19 11:46 36.6 C 62 14 120/52 L 97
[2019-08-25] MEDS: MONTELUKAST SODIUM 10 MG TABLET PO SCH (20:47)
[2019-08-25] MEDS: ASPIRIN 81 MG ECTAB PO SCH (20:48)
[2019-08-25] MEDS: TRAZODONE HCL 50 MG TAB PO SCH (20:48)
[2019-08-25] MEDS: MAGNESIUM OXIDE 400 MG TAB PO SCH (20:48)
[2019-08-25] MEDS ORDERED: INSULIN ASPART 100 UNITS/ML 3 ML PEN SC ONE (21:00)
[2019-08-26] MEDS: INSULIN ASPART 100 UNITS/ML 3 ML PEN SC SCH ×4 (00:18→11:41)
[2019-08-26] MEDS: HEPARIN 100 UNIT/ML 5ML FLUSH FLUSH PRN (05:28)
[2019-08-26 05:51] LABS: Basophils # (auto) 0.02 K/uL (0-0.2); Basophils % (auto) 0.2 %; Eosinophils % (auto) 0.8 %; Hematocrit (blood only) 29.3 % (37-47); Hemoglobin 9.6 g/dL (12.0-16.0); Immature Granulocytes # (auto) 0.44 K/uL (0.00-0.02); Immature Granulocytes % (auto) 3.3 %; Lymphocytes # (auto) 4.53 K/uL (1.2-3.4); Mean Corpuscular Hemoglobin 28.8 pg (25-34); Mean Corpuscular Hgb Conc 32.8 g/dL (32-36); Mean Platelet Volume 9.2 fL (7.4-10.4); Monocytes # (auto) 1.58 K/uL (0.11-0.59); Monocytes % (auto) 11.9 %; Neutrophils # (auto) 6.66 K/uL (1.4-6.5); Neutrophils % (auto) 49.8 %; Platelet Count 284 K/uL (130-400); RDW Coefficient of Variation 14.8 % (11.5-14.5); RDW Standard Deviation 47.6 fL (36.4-46.3); Red Blood Count 3.33 M/uL (4.2-5.4); White Blood Count 13.33 K/uL (4.8-10.8)
[2019-08-26 06:10] LABS: INR 1.3 (0.9-1.1); Partial Thromboplastin Ratio 3.5; Prothrombin Time 12.9 Seconds (9.0-12.0)
[2019-08-26 06:14] LABS: Partial Thromboplastin Time 95.7 Seconds (21.0-31.0)
[2019-08-26 06:25] LABS: BUN Creatinine Ratio 25.8 (10-20); Calcium 8.5 mg/dl (8.5-10.1); Creatinine Clr Calc Pharmacy 21.7 ml/min; Est GFR (African American) 29.5; Est GFR (Non-African American) 25.5
[2019-08-26 07:23] VITALS: TEMP 98.1; O2SAT 96
[2019-08-26] MEDS: ATORVASTATIN 40 MG TAB PO SCH (08:42)
[2019-08-26] MEDS: PANTOprazole 40 MG TAB PO SCH (08:42)
[2019-08-26] MEDS: METOPROLOL SUCC 25MG EXT REL TAB PO SCH (08:42)
[2019-08-26] MEDS: predniSONE 20 MG TAB PO SCH (08:42)
[2019-08-26] MEDS: ISOSORBIDE MONO EXTENDED REL 30 MG TABCR PO SCH (08:42)
[2019-08-26] MEDS: cefUROXime axetil 500 MG TAB PO SCH (08:43)
[2019-08-26] MEDS: TORSEMIDE 10 MG TAB PO SCH (08:43)
[2019-08-26] MEDS: dilTIAZem HCL 120 MG CAPCR PO SCH (08:43)
[2019-08-26] MEDS: INSULIN HUMAN NPH SC SCH (08:45)
[2019-08-26] MEDS: LIDOCAINE 5% 1 PATCH TD SCH (08:45)
[2019-08-26] MEDS: CLOPIDOGREL BISULFATE 75 MG TAB PO SCH (08:49)
[2019-08-26] MEDS ORDERED: LOVENOX TEACHING KIT ONE (10:00)
[2019-08-26] MEDS ORDERED: ENOXAPARIN 80 MG/0.8 ML SYR SQ SCH (10:00)
--- NOTE | 2019-08-26 10:04 | Nephrology Progress Note ---
Date of Service August 26, 2019 Assessment & Plan (1) Acute kidney injury superimposed on CKD: Likely due to ischemic ATN in the setting of hemodynamic instability from AF w/ RVR. Patient has CKD stage III with baseline creatinine of 1.5. Creatinine peaked at 2.5 and today up to 1.8. Cr rise likely in setting of diuresis. Regarding her anticoagulation, patient can be transitioned to lovenox 1mg/kg once daily to bridge anticoagulation since she wants to go home UACM remarkable mostly for ketones, contaminated specimen; suspect blood protein from contamination/dickinson -Monitor input output -daily bmp -If discharged patient will need to follow-up with nephrology in the office. (2) Labile blood pressure: Blood pressure is controlled on current regimen. No changes today (3) Diastolic CHF: valvular and diastolic HF w/ marked volume overload on exam as evidenced by pl effusions, hypoxia >> Not sure if i/os accurate -Continue torsemide 10 mg daily, and continue this outpatient -cont <2 gm daily Na diet -cont 1.5L FR (4) Pleural effusion, bilateral: Pulmonary on board. Recommend conservative management with diuresis. No role for thoracentesis at the moment. Patient clinically much better. Subjective She feels better and eager to be discharged. No SOB or leg swelling. Cr up to 1.8. INR only upto 1.3. She continues heparin drip. No vomiting or diarrhoea. She is eating well Review of Systems Review of Systems: All systems reviewed & are unremarkable except as noted in HPI & below Physical Exam Physical Exam: General exam: Appears comfortable, no acute distress HEENT: Pupils are equal and reactive to light Neck: No JVD, neck is supple trachea is midline Respiratory system: Clear breath sounds bilaterally. Gastrointestinal: Abdomen is soft, non distended, non tender, bowel sounds are present CVS: Regular rate and rhythm. No murmurs, rubs or gallops Musculoskeletal: No joint or muscle tenderness Extremities: Non tender, no edema, peripheral pulses are present Neuro: Oriented, no tremors, no focal neurological deficits Skin: No rashes Results & Data Vital Signs (Past 12 Hours) Vital Signs Temp Pulse Resp BP Pulse Ox 08/26/19 07:22 36.7 C 63 20 134/84 96 08/25/19 23:58 36.8 C 68 18 132/69 97 Laboratory Results Laboratory Results - last 24 hr 08/25/19 08/25/19 08/25/19 11:40 16:27 20:16 WBC RBC Hgb Hct MCV MCH MCHC RDW Std Deviation RDW Coeff of Stormy Plt Count MPV Immature Gran % (Auto) Neut % (Auto) Lymph % (Auto) [place] % (Auto) Eos % (Auto) Baso % (Auto) Immature Gran # (Auto) Neut # (Auto) Lymph # (Auto) [place] # (Auto) Eos # (Auto) Baso # (Auto) PT INR APTT PTT Ratio Sodium Potassium Chloride Carbon Dioxide Anion Gap BUN Creatinine Est Cr Clr Drug Dosing Est GFR ( Amer) Est GFR (Non-Af Amer) BUN/Creatinine Ratio Glucose POC Glucose 178 H 159 H 316 H* Calcium 08/25/19 08/26/19 08/26/19 20:16 00:15 03:50 WBC RBC Hgb Hct MCV MCH MCHC RDW Std Deviation RDW Coeff of Stormy Plt Count MPV Immature Gran % (Auto) Neut % (Auto) Lymph % (Auto) [place] % (Auto) Eos % (Auto) Baso % (Auto) Immature Gran # (Auto) Neut # (Auto) Lymph # (Auto) [place] # (Auto) Eos # (Auto) Baso # (Auto) PT INR APTT PTT Ratio Sodium Potassium Chloride Carbon Dioxide Anion Gap BUN Creatinine Est Cr Clr Drug Dosing Est GFR ( Amer) Est GFR (Non-Af Amer) BUN/Creatinine Ratio Glucose POC Glucose 353 H* 346 H* 199 H Calcium 08/26/19 08/26/19 08/26/19 04:17 05:22 05:22 WBC 13.33 H RBC 3.33 L Hgb 9.6 L Hct 29.3 L MCV 88.0 MCH 28.8 MCHC 32.8 RDW Std Deviation 47.6 H RDW Coeff of Stormy 14.8 H Plt Count 284 MPV 9.2 Immature Gran % (Auto) 3.3 Neut % (Auto) 49.8 Lymph % (Auto) 34.0 [place] % (Auto) 11.9 Eos % (Auto) 0.8 Baso % (Auto) 0.2 Immature Gran # (Auto) 0.44 H Neut # (Auto) 6.66 H Lymph # (Auto) 4.53 H [place] # (Auto) 1.58 H Eos # (Auto) 0.10 Baso # (Auto) 0.02 PT INR APTT PTT Ratio Sodium 140 Potassium 4.0 Chloride 104 Carbon Dioxide 28 Anion Gap 8.0 BUN 48 H Creatinine 1.86 H Est Cr Clr Drug Dosing 21.7 Est GFR ( Amer) 29.5 Est GFR (Non-Af Amer) 25.5 BUN/Creatinine Ratio 25.8 H Glucose 121 H POC Glucose 187 H Calcium 8.5 08/26/19 08/26/19 05:22 07:38 WBC RBC Hgb Hct MCV MCH MCHC RDW Std Deviation RDW Coeff of Stormy Plt Count MPV Immature Gran % (Auto) Neut % (Auto) Lymph % (Auto) [place] % (Auto) Eos % (Auto) Baso % (Auto) Immature Gran # (Auto) Neut # (Auto) Lymph # (Auto) [place] # (Auto) Eos # (Auto) Baso # (Auto) PT 12.9 H INR 1.3 H APTT 95.7 H* PTT Ratio 3.5 Sodium Potassium Chloride Carbon Dioxide Anion Gap BUN Creatinine Est Cr Clr Drug Dosing Est GFR ( Amer) Est GFR (Non-Af Amer) BUN/Creatinine Ratio Glucose POC Glucose 123 H Calcium
[2019-08-26 12:27] VITALS: BP 128/73; PULSE 71
--- NOTE | 2019-08-26 14:02 | Pharmacy Report ---
Pharmacy Glycemic Short Note 2 - Date of Service August 26, 2019 - Glycemic Short BSG Results (Last 24 hours): 08/25/19 08/25/19 08/25/19 16:27 20:16 20:16 Glucose POC Glucose 159 H 316 H* 353 H* 08/26/19 08/26/19 08/26/19 00:15 03:50 04:17 Glucose POC Glucose 346 H* 199 H 187 H 08/26/19 08/26/19 08/26/19 05:22 07:38 11:25 Glucose 121 H POC Glucose 123 H 114 H 08/26/19 11:45 Glucose POC Glucose 106 H Outpatient Anti-diabetic Regimen: * Insulin 70/30 - 55 units qam and 35 units qpm * A1c = 9.5 % (08/17/19) ASSESSMENT: * 78 yr old female well known to the Pharmacy Glycemic Service. * Prednisone continues at 20 mg po daily in the morning * Heparin drip d/c'd * BSGs ranging 106-353 mg/dL over past 24 hours (patient noted to have eaten ice cream prior to hs check of 353 mg/dL) * Fasting BSG this morning of 123 mg/dL * Patient utilized 60 units of insulin yesterday (30 of basal and 30 of bolus) * Tightened carb ratio yesterday due to inadequate coverage * Patient tends to have lows overnight and in the AM possibly due to excessive Novolog at bedtime - will adjust HS Novolog PLAN FOR INPATIENT GLYCEMIC CONTROL: * Holding outpatient 70/30 insulin and will utilize SC basal/bolus with NPH and novolog * Basal insulin - will remove scale and schedule NPH with dinner due to previous success * 25 units NPH with breakfast * 10 units NPH with dinner * Bolus insulin - continue current parameters (will remove carb coverage at HS and significantly loosen CF) * NovoLog per scale ACHS or Q6hrs while NPO * Goal Range: Low 110 mg/dL - High 140 mg/dL * Correction Factor: 20 mg/dL/unit * Nutritional / Prandial insulin per carb ratio of 1 unit per 6 grams CHO c onsumed * HS: CF: 40 mg/dL/unit with no nutritional PLAN FOR DISCHARGE: * Patient's A1c (9.5%) indicates sub-optimal glycemic control. * Outpatient insulin regimen may require adjustment at discharge, particularly if patient will require ongoing steroids. * Please note that the plan above was derived based on current level of insulin resistance and hospital stress. These recommendations are appropriate for inpatient admission only. Plan of care upon discharge will need to be reassessed to avoid potential outpatient hypo/hyperglycemia. Thank you.
[2019-08-26 14:09] LABS: Partial Thromboplastin Time 55.2 Seconds (21.0-31.0)
[2019-08-26] MEDS ORDERED: WARFARIN SOD 7.5 MG TAB PO SCH (16:00)
[2019-08-26] MEDS ORDERED: INSULIN HUMAN NPH SC SCH (16:30)
--- NOTE | 2019-08-26 16:54 | Discharge Summary ---
Date of Service August 26, 2019 Admission HPI Per Admitting Provider This is a 78 yr old F who has significant PMH of CAD, COPD, IDDM2, hx of CVA, CKD3, HTN, IPMN, recurrent pancreatitis, MDD who presents to [facility] ED 2/2 SOB x 1 day. Pt admitted to [facility] 07/27-08/02 secondary to acute hypoxic resp failure and COPD exac. During hospitalization pt had chest pain, elevated troponin, echocardiogram done EF preserved w/o wall motion abnormality and ACS was ruled out. Tx with high dose steroid, antibiotic, aggressive pulmonary toilet. She was discharged to home. Seen in Pulm Clinic 08/[address] Anderson. Respiratory status not much improved from discharge. Complained of coughing and increasing SOB. Dr. Anderson initiated budesonide neb tx bid, but there is question to what patient was actually using outpt. She was seen in clinic today by PCP. Complains of increasing SOB and chest pain. ECG confirmed afib with RVR and she was sent via EMS to ED. Pt states since discharge she has been feeling SOB. History limited due to patient dyspneic with conversation. SOB is at rest and with exertion. Last night felt SOB increase with lying down and had to sit up in chair. Complains of increase in swelling to lower extremities over the past week. At baseline usually doesn't have swelling. Unknown if weight gain. Denies f/c/s, dizziness, hemoptysis, n/v/d, abdominal pain, dsyuria, increased urgency with urination, hematuria. She does complain of substernal chest pain that radiates to L side of chest, made worse with leaning forward, palpitations, lightheadedness. Pt states she lives at home alone and is usually able to ambulate with out assist device. At baseline usually has mild LAL. Principal Diagnosis A. fib RVR, acute respiratory failure, chronic CHF with diastolic dysfunction Discharge Exam Constitutional WD/WN, vitals as above no acute distress Eyes PERRL, conjunctivae normal, anicteric sclerae ENMT external ear and nose normal, oropharynx normal Neck trachea midline, no thyromegaly Respiratory normal respiratory effort, lungs clear to auscultation Cardiovascular RRR, no murmur, no edema Gastrointestinal (Abdomen) normal bowel sounds, soft, nontender, no hepatosplenomegaly Musculoskeletal no cyanosis or clubbing, extremities motor strength 5/5 Skin no rashes, warm and dry Neurologic PERRL, EOMI, accommodation nl, no face palsy, no dysarthria Psychiatric A+Ox3, euthymic affect Discharge Data Allergies Allergy/AdvReac Type Severity Reaction Status Date / Time Gadolinium-Containing Allergy Severe NAUSEA,VOMITING, Verified 08/16/19 14:32 Contrast Medi SWELLING/EDEMA AROUND EYES, WHEEZING Iodinated Contrast Media Allergy Severe RASH TO Verified 08/16/19 14:32 IVP DYE,NAUSEA, FAINTING, COUGHING, GAGGING, HEADACH Sulfa (Sulfonamide Allergy Severe HIVES, Verified 08/16/19 14:32 Antibiotics) FACIAL AND ARM SWELLING cerivastatin Allergy Intermediate HIVES Verified 08/16/19 14:32 codeine Allergy Intermediate "PRICKLY Verified 08/16/19 14:32 RASH" hydroxyzine Allergy Intermediate N/V Verified 08/16/19 14:32 latex Allergy Intermediate DERMATITIS-PT Verified 08/16/19 14:32 TOLERATED A LATEX CATHETER 03/26/08 Bactrim Allergy Mild RASH Verified 04/29/18 14:40 diphenhydramine Allergy Mild RASH; Verified 08/16/19 14:32 SLEEPINESS WITH "PHARBEDRYL" loratadine Allergy Mild HIVES Verified 08/16/19 14:32 sulfamethoxazole Allergy Mild RASH Verified 08/16/19 14:32 trimethoprim Allergy Mild RASH Verified 08/16/19 14:32 prednisone Allergy Unknown elevates Verified 08/16/19 14:32 blood sugar tetanus toxoid, adsorbed AdvReac Intermediate SWELLING Verified 08/16/19 14:32 AT INJECTION SITE alprazolam AdvReac Unknown "SLEEPY Verified 08/16/19 14:32 STUPER" metformin AdvReac Unknown DIARRHEA Verified 08/16/19 14:32 morphine AdvReac Unknown VOMITING Verified 08/16/19 14:32 simvastatin AdvReac Unknown COUGH, Verified 08/16/19 14:32 "DISCOMFORT" gadobutrol [From Gadavist] AdvReac Anaphylaxis Unverified 08/16/19 14:32 Consultations 08/16/19 14:44 ED Decision to Admit Stat 08/16/19 16:12 Consult Cardiology Routine 08/17/19 11:03 Consult Pulmonology Routine 08/17/19 11:05 Consult Nephrology Routine 09/28/19 09:09 Consult Urology Routine Ordered Studies 08/17/19 11:16 CT chest wo con Urgent 08/19/19 09:00 US effusion-chest/mediastinum Routine 08/19/19 15:46 CT abd pelvis wo con Stat 08/19/19 16:50 US venous doppler LE RT Routine Hospital Course (1) Hypoxia: 70-year-old female with history of CAD, COPD, diabetes, hypertension, CVA, recurrent pancreatitis, MD Presenting with shortness of breath. HYPOXIA SECONDARY TO BILATERAL PLEURAL EFFUSION, LIKELY FROM VALVULAR AND DIASTOLIC CHF symptom has completely resolved now on room air , with no complain of SOB , LAL or orthopnea Diuresed well, Lasix discontinued, Will be discharged on on torsemide 10 mg p.o. daily will cont taper prednisone( no wheeze or bronchospasm ) , cont nebs, given for possible component of COPD exacerbation; pulmonary service consulted, no thoracentesis needed for bilat pleural effusion as patient responded with diuretics ATRIAL FIBRILLATION ON RAPID VENTRICULAR RESPONSE Now in sinus rhythm cardiology eval appreciated Diltiazem added to metoprolol INR 1.3 today On Coumadin, transitioned to Lovenox subcu bridge therapy(on IV heparin) Patient will be discharged home with Lovenox bridge, continue Coumadin Repeat PT/INR in 2 days ACUTE RENAL FAILURE ON CKD STAGE III Baseline creatinine 1.2-1.4 Creatinine improved , appreciate nephrology eval Kidney clearance improved enough to be transition to subcu Lovenox bridge HEMATURIA, Klebsiella UTI No recurrence Hg stable Ceftriaxone changed to cefuroxime p.o., continue to complete 7 days Urologist consulted, appreciate recommendations LOWER BACK PAIN, LIKELY MUSCULOSKELETAL ETIOLOGY CT abdomen and pelvis to rule out retroperitoneal hemorrhage: negative PRN tramadol, Lidoderm patch, warm compress Resolved CAD, S/P GAETANO JANUARY 2019 Continue aspirin, Plavix, metoprolol Aspirin to be discontinued once INR is therapeutic Continue Plavix indefinitely COPD presented With exacerbation-improved , management per #1 DIABETES TYPE 2 Pharmacist consulted for glycemic control appreciate input HYPERTENSION Stable, continue Imdur, metoprolol HISTORY OF CVA Continue aspirin, Plavix, atorvastatin DVT prophylaxis Currently on heparin drip plus Coumadin INR 1.2 Disposition PT/OT evaluation Patient lives at home with family Stable to be discharged home today with Lovenox bridge therapy and Coumadin And will be followed at the Coumadin clinic for further monitoring of PT/INR and Coumadin dose adjustment Total Time Total Time Spent Total Time Spent (In Minutes): Approximate 35 minutes Total Time Includes: Examination of the Patient, Discharge Planning, Medication Reconciliation and Communication With Other Providers Discharge Plan Discharge Items Patient Disposition: Home - Home Health Services Reason For Visit: ACUTE RESPIRATORY FAILURE,AFIB WITH RVR,CHF EXAC Discharge Diagnosis: A. fib RVR, acute respiratory failure, chronic CHF with diastolic dysfunction Activity: Resume your previous activity Non-emergency contact: Primary Care Provider Call non-emergency contact if: you have any medication questions Follow-up/Referrals: Colleen Jefferson DO [Primary Care Provider] - Diet: Carb Consistent or DM2 and Heart Healthy Addtl Attending Provider Instructions: Hospital follow-up: Dr. Jefferson on 08/31/2019 at 9:40 AM You need to follow-up with kidney specialist/nephrology in [address] weeks, with Dr Beaver please have referral and follow-up appointment scheduled through Dr. Jefferson office Lab work: PT/INR on 08/29/2019 Basic metabolic panel on 08/29/2019 You are discharged on subcu injection of Lovenox 70 mg daily-given prescription for 5 days Your lab work PT/INR will be checked on Thursday Lovenox injection can be discontinued once your INR is 2 Continue take Coumadin Follow-up at Coumadin clinic for PT/INR check and Coumadin dose adjustment New medications: Diltiazem 120 mg by mouth daily- for high blood pressure, and heart rate control Metoprolol succinate 25 mg twice daily Torsemide 10 mg by mouth daily Pending Studies at Discharge: Yes Studies:: Lab: PT/INR , Basic metabolic panel on Thursday08/29/2019 Stand-Alone Forms: [facility] Medications and DC Order Prescriptions: New enoxaparin [Lovenox] 80 mg/0.8 mL Syringe 70 mg subcut Q24H 5 Days Qty: 5 RF: 0 torsemide 10 mg Tablet 10 mg PO QAM 30 Days Qty: 30 RF: 3 diltiazem HCl 120 mg Capsule,Extended Release 24hr 120 mg PO QAM 30 Days Qty: 30 RF: 0 metoprolol succinate 25 mg Tablet Extended Release 24 Hr 25 mg PO BID 30 Days Qty: 60 RF: 0 warfarin [Coumadin] 5 mg tablet 5 mg PO DAILY Qty: 30 RF: 3 Continued fexofenadine 60 mg tablet 60 mg PO DAILY RF: 0 ranitidine HCl 300 mg capsule 300 mg PO HS Qty: 30 RF: 0 trazodone 50 mg Tablet 50 mg PO HS RF: 0 ondansetron HCl [Zofran] 4 mg Tablet 4 mg PO Q8H PRN (Reason: Nausea) RF: 0 lorazepam [Ativan] 0.5 mg Tablet 0.5 mg PO Q6 PRN (Reason: Anxiety) RF: 0 amlodipine [Norvasc] 10 mg Tablet 10 mg PO QAM RF: 0 fluticasone propionate [Flonase Allergy Relief] 50 mcg/actuation [place],Suspension 2 spray INTRANASAL QPM PRN (Reason: allergies) RF: 0 dicyclomine 10 mg Capsule 10 mg PO TID PRN (Reason: ABDOMINAL CRAMPS) RF: 0 ropinirole 1 mg tablet 1 mg PO HS RF: 0 levocetirizine [Xyzal] 5 mg Tablet 2.5 mg PO QPM RF: 0 albuterol sulfate 2.5 mg /3 mL (0.083 %) Solution For Nebulization 2.5 mg INHALATION QID PRN (Reason: Shortness Of Breath Or Wheezing) RF: 0 mirtazapine 45 mg Tablet 45 mg PO HS RF: 0 atorvastatin 40 mg Tablet 40 mg PO QAM Qty: 30 RF: 0 isosorbide mononitrate 30 mg Tablet Extended Release 24 Hr 30 mg PO QAM Qty: 30 RF: 0 clopidogrel 75 mg Tablet 75 mg PO QAM Qty: 30 RF: 2 nitroglycerin [Nitrostat] 0.4 mg Tablet, Sublingual 0.4 mg Sublingual PRN PRN (Reason: chest pain) Qty: 30 RF: 0 Novolin 70/30 U-100 Insulin 100 unit/mL (70-30) suspension 55 unit subcut QAM RF: 0 Novolin 70/30 U-100 Insulin 100 unit/mL (70-30) suspension 35 unit subcut QPM RF: 0 albuterol sulfate [Proventil HFA] 90 mcg/actuation Hfa Aerosol Inhaler 2 puff INHALATION Q4 PRN (Reason: Shortness Of Breath Or Wheezing) RF: 0 guaifenesin 100 mg/5 mL Liquid 100 mg PO Q6H PRN (Reason: Congestion) RF: 0 hydrocodone-homatropine 5-1.5 mg/5 mL Syrup 5 ml PO Q6H PRN (Reason: Cough) RF: 0 losartan 100 mg tablet 100 mg PO DAILY RF: 0 loratadine 10 mg Tablet 10 mg PO DAILY RF: 0 simethicone 80 mg Tablet,Chewable 80 mg PO Q6H PRN (Reason: Gastrointestinal Spasms Or Cramping) RF: 0 cholestyramine-aspartame 4 gram Powder In Packet 4 g PO DAILY RF: 0 Dulera 200-5 mcg/actuation Hfa Aerosol Inhaler 2 puff INHALATION BID RF: 0 gabapentin 400 mg capsule 800 mg PO HS RF: 0 magnesium oxide 400 mg (241.3 mg magnesium) tablet 400 mg PO QPM RF: 0 metoprolol tartrate 25 mg Tablet 25 mg PO BID RF: 0 pantoprazole 40 mg Tablet,Delayed Release (Dr/Ec) 40 mg PO BID 30 Days Qty: 60 RF: 0 montelukast [Singulair] 10 mg Tablet 10 mg PO HS 30 Days Qty: 30 RF: 0 Discontinued aspirin 81 mg Tablet,Delayed Release (Dr/Ec) 1 tab PO QPM RF: 0 Discharge Orders: Discharge Order (Routine); Ordered 08/26/19 Ordered By: Ann Marie Salazar/Other Patient Handouts: Warfarin Sodium Oral tablet, Enoxaparin Sodium Porcine Solution for injection, Coumadin Admission Data Admit Date/Time: 08/16/19 16:12 Attending Provider: Ann Marie Breen Admit Provider: Caren Guerra Primary Care Provider: Colleen Jefferson Other Providers: Jacky Epps ; Caren Guerra ; Bruno Chavez Jeffrey A. ; Bette Martinez ; Eugene Kimball II ; Saul Conrad Other Interventions: Discharge Summary Assessment (RN) Last Done: 08/26/19 12:25 DC Date/Time DO NOT enter until pt leaves facility: 08/26/19 15:15
[2019-08-26] MEDS ORDERED: INSULIN ASPART 100 UNITS/ML 3 ML PEN SC SCH (21:00)
== END 2019-08-26 15:15 | disposition home health service (06) | DRG 308 ==
LOC: ED 12:30 → 2S 16:12 → SUATTDRO 16:12 → 2S 17:43 → 4W 08-24 14:50

== ENCOUNTER 2019-11-22 14:39 | Inpatient (IN) ==
[~2019-11-22 14:39] MED LIST changes: -AMLO-114 PO; -ASPI81TA28 PO; -ATOR10TA82 PO; -BNT/10 PO; +CALCIUM CHLORIDE 10% 10 ML SYR IV ONE; -CLOP1TAB15 PO; -CPR500 PO; -DOCU-94 PO; -ESCI10TA17 PO; -FLUT0.15 NAE; -GABA-1220 PO; -HYG/25 PO; -INSHRIE SQ; -INSU70IN2 SC; -IPRASOL4 INH; -LORA-741 PO; -LOSA100T65 PO; -MAGN400T6 PO; -METO50TA16 PO; -MIRT30TA3 PO; -PANC6000 PO; -PANT40TA PO; -RANI1TAB75 PO; -ROPI1TAB PO; +SODIUM BICARB 8.4% INJ 50 MEQ/50 ML SYR IV ONE; +SODIUM CHLORIDE 0.9% 10ML FLUSH IV ONE; -TRAZ50TA35 PO; -VNTHFA/IN INH
[2019-11-22] MEDS ORDERED: ALBUT/IPRATROP 3MG/0.5MG NEB 3 ML VIAL NEB ONE (15:50)
[2019-11-22] MEDS ORDERED: BENZONATATE 100 MG CAPSULE PO ONE (15:50)
[2019-11-22 15:55] LABS: Basophils # (auto) 0.07 K/uL (0-0.2); Basophils % (auto) 0.7 %; Eosinophils # (auto) 0.28 K/uL (0-0.5); Eosinophils % (auto) 2.6 %; Hematocrit (blood only) 31.1 % (37-47); Hemoglobin 10.4 g/dL (12.0-16.0); Immature Granulocytes # (auto) 0.03 K/uL (0.00-0.02); Immature Granulocytes % (auto) 0.3 %; Mean Corpuscular Hemoglobin 27.2 pg (25-34); Mean Corpuscular Hgb Conc 33.4 g/dL (32-36); Mean Corpuscular Volume 81.2 fL (80-100); Mean Platelet Volume 9.8 fL (7.4-10.4); Monocytes # (auto) 1.19 K/uL (0.11-0.59); Monocytes % (auto) 11.2 %; Neutrophils # (auto) 5.79 K/uL (1.4-6.5); Neutrophils % (auto) 54.2 %; Platelet Count 182 K/uL (130-400); RDW Coefficient of Variation 15.7 % (11.5-14.5); RDW Standard Deviation 46.4 fL (36.4-46.3); Red Blood Count 3.83 M/uL (4.2-5.4); White Blood Count 10.66 K/uL (4.8-10.8)
--- NOTE | 2019-11-22 16:28 | XRay Report ---
XR chest 1V portable HISTORY: 79 years-old Female cough acute cough COMPARISON: Chest radiographs 08/21/2019, chest CT 08/17/2019 TECHNIQUE: Portable AP view of the chest FINDINGS: Cardiac silhouette is enlarged, unchanged. Calcified plaque of the thoracic aorta. Opacity of the med ial right lung apex, likely external to the patient. No pneumothorax, overt pulmonary edema or large pleural effusion. Mild blunting of the costophrenic angles may be secondary to atelectasis versus tra ce effusions. Asymmetric patchy left lung base opacities. Mild chronic interstitial coarsening. Degen erative changes of the shoulders and spine. Right IJ central venous catheter is unchanged. IMPRESSION: 1. Cardiomegaly without overt pulmonary edema. 2. Subtle patchy asymmetric left lung base opacities suggest atelectasis versus pneumonitis. 3. Opacity of the medial right lung apex is likely secondary to object external to the patient. ACT 112: Negative or not required by law. The above report was generated using voice recognition software. It may contain grammatical, syntax o r spelling errors. Electronically signed by: Rob Juarez M.D. 11/22/2019 4:26 PM
[2019-11-22 16:38] LABS: pH VBG 7.36 (7.36-7.41)
[2019-11-22 16:51] LABS: INR 1.9 (0.9-1.1)
[2019-11-22 17:03] LABS: Albumin Level 3.1 gm/dl (3.4-5.0); BUN Creatinine Ratio 16.9 (10-20); Calcium 8.3 mg/dl (8.5-10.1); Creatinine Clr Calc Pharmacy 19.1 ml/min; Est GFR (Non-African American) 21.6; Potassium 4.6 mmol/L (3.5-5.1)
[2019-11-22 17:07] LABS: Albumin Globulin Ratio 0.7 (0.9-2); Bilirubin,Total 0.2 mg/dl (0.2-1); Globulin 4.3 gm/dl (2.5-4.0); Total Protein 7.4 gm/dl (6.4-8.2); Troponin I 0.024 ng/ml (0-0.045)
[2019-11-22 17:16] LABS: Beta-Hydroxybutyrate 1.99 mg/dl (0.2-2.81)
[2019-11-22] MEDS ORDERED: SODIUM CHLORIDE 0.9% 500 ML IV ONE (17:22)
[2019-11-22] MEDS ORDERED: NovoLIN-R INSULIN PER UNIT CHARGE IV STA (17:31)
[2019-11-22] MEDS ORDERED: methylPREDNISolone 125 MG/2 ML VIAL IV STA (17:31)
--- NOTE | 2019-11-22 18:01 | Emergency Department Note ---
Entered by Natalie Wilkinson acting as a scribe for History of Present Illness General Source: patient History of Present Illness Onset (ago): day(s) 3 Location: left (lung) and right (lung) Severity: severe and similar to prior episodes Pain Consistency: + other (worsening) Quality: + other (shortness of breath) Relieved By: not by medication (breathing treatments) Associated symptoms: + cough and + shortness of breath; no fever/chills and no other (lower extremity edema, body aches) The patient is a 79 year old female presenting to the Emergency Department complaining of a worsening cough starting 3 days ago. The patient reports that she has a severe cough. She states that she is short of breath. She explains that because of her cough she is having trouble speaking. She notes that her chest feels sore from coughing too much. She adds that she hasnt been able to sleep because of her cough. The patient reports that her blood sugar has been elevated but that it is usually elevated. She states that she had a few breathing treatments at home that didnt improve her cough or shortness of breath. She notes that she has experienced these symptoms before as she has COPD. She adds that she normally takes Coumadin. The patient denies fever, chills, lower extremity edema and body aches. Home Medications Home Medications Medication Instructions Recorded Confirmed Type lorazepam [Ativan] 0.5 mg PO Q6 PRN 08/24/18 11/22/19 History ondansetron HCl [Zofran] 4 mg PO Q8H PRN 08/24/18 11/22/19 History mirtazapine 45 mg PO HS 01/26/19 11/22/19 History ropinirole 1 mg PO HS 01/26/19 11/22/19 History atorvastatin 40 mg PO QAM #30 tab 01/28/19 11/22/19 Rx clopidogrel 75 mg PO QAM #30 tab 01/28/19 11/22/19 Rx isosorbide mononitrate 30 mg PO QAM #30 tab 01/28/19 11/22/19 Rx nitroglycerin [Nitrostat] 0.4 mg SUBLINGUAL PRN PRN #30 tab 01/28/19 11/22/19 Rx magnesium oxide 400 mg PO QAM 07/11/19 11/22/19 History cholestyramine-aspartame 4 g PO QAM 08/16/19 11/22/19 History losartan 100 mg PO QAM 08/16/19 11/22/19 History simethicone 80 mg PO Q6H PRN 08/16/19 11/22/19 History Novolin N NPH U-100 Insulin 70 unit SUBCUT QAM 10/26/19 11/22/19 History acetaminophen 650 mg PO Q4H PRN 10/26/19 11/22/19 History bisacodyl 10 mg OH DAILY PRN 10/26/19 11/22/19 History budesonide 0.5 mg INHALATION BID 10/26/19 11/22/19 History cetirizine 5 mg PO QPM 10/26/19 11/22/19 History dicyclomine 10 mg PO TID PRN 10/26/19 11/22/19 History diltiazem HCl 120 mg PO QAM 10/26/19 11/22/19 History docusate sodium 100 mg PO BID 10/26/19 11/22/19 History gabapentin 800 mg PO HS 10/26/19 11/22/19 History magnesium hydroxide [Milk of 30 ml PO DAILY PRN 10/26/19 11/22/19 History Magnesia] meclizine 12.5 mg PO Q8H PRN 10/26/19 11/22/19 History metoprolol succinate 25 mg PO BID 10/26/19 11/22/19 History montelukast 10 mg PO HS 10/26/19 11/22/19 History pantoprazole 40 mg PO BID 10/26/19 11/22/19 History polyethylene glycol 3350 17 g PO DAILY PRN 10/26/19 11/22/19 History sennosides [senna] 8.6 mg PO DAILY PRN 10/26/19 11/22/19 History sertraline 25 mg PO QPM 10/26/19 11/22/19 History torsemide 10 mg PO 3XWK 10/26/19 11/22/19 History trazodone 50 mg PO HS 10/27/19 11/22/19 History guaifenesin 100 mg PO Q6H PRN 11/22/19 11/22/19 History insulin NPH isoph U-100 human 48 unit SUBCUT .QDINNER 11/22/19 11/22/19 History [Novolin N NPH U-100 Insulin] warfarin [Coumadin] 5 mg PO DAILY 11/22/19 11/22/19 History Allergies Allergy/AdvReac Type Severity Reaction Status Date / Time gadobutrol [From Gadavist] Allergy Severe Anaphylaxis Verified 11/22/19 16:10 Gadolinium-Containing Allergy Severe NAUSEA,VOMITING, Verified 11/22/19 16:10 Contrast Medi SWELLING/EDEMA AROUND EYES, WHEEZING Iodinated Contrast Media Allergy Severe RASH TO Verified 11/22/19 16:10 IVP DYE,NAUSEA, FAINTING, COUGHING, GAGGING, HEADACH Sulfa (Sulfonamide Allergy Severe HIVES, Verified 11/22/19 16:10 Antibiotics) FACIAL AND ARM SWELLING cerivastatin Allergy Intermediate HIVES Verified 11/22/19 16:10 codeine Allergy Intermediate "PRICKLY Verified 11/22/19 16:10 RASH" hydroxyzine Allergy Intermediate N/V Verified 11/22/19 16:10 latex Allergy Intermediate DERMATITIS-PT Verified 11/22/19 16:10 TOLERATED A LATEX CATHETER 03/26/08 prednisone Allergy Intermediate elevates Verified 11/22/19 16:10 blood sugar Bactrim Allergy Mild RASH Verified 04/29/18 14:40 diphenhydramine Allergy Mild RASH; Verified 11/04/19 07:27 SLEEPINESS WITH "PHARBEDRYL" loratadine Allergy Mild HIVES Verified 11/04/19 07:27 sulfamethoxazole Allergy Mild RASH Verified 11/04/19 07:27 trimethoprim Allergy Mild RASH Verified 11/04/19 07:27 alprazolam AdvReac Intermediate "SLEEPY Verified 11/04/19 07:27 STUPER" metformin AdvReac Intermediate DIARRHEA Verified 11/04/19 07:27 tetanus toxoid, adsorbed AdvReac Intermediate SWELLING Verified 11/04/19 07:27 AT INJECTION SITE morphine AdvReac Mild VOMITING Verified 11/04/19 07:27 simvastatin AdvReac Mild COUGH, Verified 11/04/19 07:27 "DISCOMFORT" Past Med/Surg History Medical History (Updated 11/30/19 @ 13:11 by Juan Carlos Addison MD) Anxiety (Chronic) Aortic stenosis (Chronic) moderate Cerebrovascular disease (Chronic) "history stroke and TIA" L sided weakness. Chronic pancreatitis (Chronic) CKD (chronic kidney disease), stage III (Chronic) F/U PCP COPD (chronic obstructive pulmonary disease) (Chronic) Depression (Chronic) Diabetes mellitus, type II (Chronic) poorly controlled Dyslipidemia (Chronic) Fatty liver (Chronic) Gastroparesis (Chronic) GERD (gastroesophageal reflux disease) Giant cell arteritis (Resolved) Goals of care, counseling/discussion HTN (hypertension) (Chronic) Left bundle branch block Non-STEMI (non-ST elevated myocardial infarction) 01/2019 Osteoarthritis (Chronic) Pancreatic cyst (Chronic) Pancreatic divisum (Chronic) Pancreatitis (Chronic) Peripheral neuropathy (Chronic) RLS (restless legs syndrome) (Chronic) Seasonal allergies (Chronic) Sleep apnea (Chronic) PT DENIES/NO DEVICE Valvular heart disease Surgical History History of bilateral tubal ligation (Resolved) History of cataract surgery (Chronic) both eyes History of ERCP (Resolved) x3 with stents. ERCP 04/30/18. MAC 3, grade 2 view. 7.0 ETT placed. No issues. S/P cardiac catheterization (Resolved) 01/2019 [facility] X 2-TOTAL 2 STENTS 04/2019 non obstructive disease Family History Daughter No problems noted. Father Family history of diabetes mellitus Family/Other Family history of diabetes mellitus Mother Family history of diabetes mellitus Grandfather Family history of diabetes mellitus Grandmother Family history of diabetes mellitus Social History Preferred Language: Turkish Communication Ability: Effective Tibco Developer Required: No Beliefs That Will Affect Care: None marital status: / Current Living Situation: Snf Current Living Situation Comment: [facility] Other Information That Helps Us Care for You: No Feels Safe at Home: Yes Safety Concerns: Feels Safe At This Time Smoking Status: Former smoker Second Hand Exposure: No ; Hx Alcohol Use: Yes Alcohol type: beer Hx Substance Use: No Review of Systems See HPI for pertinent positives & negatives. and A total of 10 systems reviewed and were otherwise negative Physical Exam Vital Signs Vital Signs - 24 hr 11/22/19 14:41 11/22/19 16:07 11/22/19 16:10 Temperature 37 C Temperature Source Oral Pulse Rate 78 Pulse Rate [Right Apical] 86 Pulse Rhythm Regular Pulse Strength Normal Respiratory Rate 22 26 H Respiratory Effort / Characteristics Non-Labored Spontaneous Spontaneous Accessory Muscle Use Respiratory Depth Normal Respiratory Pattern Regular Blood Pressure 166/68 H Blood Pressure [Left Arm] Blood Pressure Mean 100 Blood Pressure Mean [Left Arm] Blood Pressure Position Sitting Pulse Oximetry 98 91 100 Oxygen Delivery Method Room Air Room Air Nebulizer Sepsis Recent Fever Within 48 Hours No Sepsis New/Unexplained Change in Mental Status No Sepsis Action Taken by Nursing No Action Required 11/22/19 16:36 11/22/19 18:45 Temperature Temperature Source Pulse Rate Pulse Rate [Right Apical] 77 87 Pulse Rhythm Pulse Strength Respiratory Rate 20 20 Respiratory Effort / Characteristics Respiratory Depth Respiratory Pattern Blood Pressure Blood Pressure [Left Arm] 130/62 110/52 L Blood Pressure Mean Blood Pressure Mean [Left Arm] 84 71 Blood Pressure Position Pulse Oximetry 100 97 Oxygen Delivery Method Nebulizer Room Air Sepsis Recent Fever Within 48 Hours Sepsis New/Unexplained Change in Mental Status Sepsis Action Taken by Nursing GENERAL: Patient appears fatigued and is coughing with audible wheeze on litter. Alert HENT: Normocephalic, atraumatic. Oropharynx unremarkable. EYES: Normal conjunctiva. Sclera non-icteric. NECK: Supple. No nuchal rigidity. RESPIRATORY: Severe expiratory wheezing. Increased work of breathing. CARDIAC: Normal rate. Normal rhythm. Extremities warm and well perfused. GI: Soft, non-distended. No tenderness to palpation. No rebound or guarding. RECTAL: Deferred. MUSCULOSKELETAL: Right upper chest wall port. Atraumatic. Chest examination reveals no tenderness. LOWER EXTREMITIES: Calves are equal size bilaterally and non-tender. Trace edema NEURO: Normal sensorium. No sensory or motor deficits noted. No facial droop. SKIN: Warm and dry. No jaundice noted. Course Course 1545: The patient was evaluated in room A3, and a complete history and physical examination were performed. 1702: I reevaluated the patient at this time who is resting comfortably. 1828: I updated the patient at this time. We discussed her discharge plan. 1733: I discussed the patient's case with [facility] who will evaluate the patient for further management. Administered Medications Discontinued Medications Albuterol (Duoneb) 12 ml NEB ONE ONE Stop: 11/22/19 15:51 Last Admin: 11/22/19 16:04 Dose: 12 ml Documented by: [id number] Atorvastatin Calcium (Lipitor) [facility] [place] Stop: 12/23/19 08:59 Last Admin: 11/24/19 08:18 Dose: 40 mg Documented by: [id number] Admin: 11/23/19 07:45 Dose: 40 mg Documented by: [id number] Benzonatate (Tessalon Perle) 100 mg PO NOW [facility] Stop: 11/22/19 15:51 Last Admin: 11/22/19 16:08 Dose: 100 mg Documented by: [id number] Budesonide (Pulmicort Respules) 0.5 mg INH BIDR [facility] Stop: 12/22/19 19:59 Last Admin: 11/24/19 07:09 Dose: 0.5 mg Documented by: [id number] Admin: 11/23/19 20:52 Dose: 0.5 mg Documented by: [id number] Admin: 11/23/19 07:19 Dose: 0.5 mg Documented by: [id number] Admin: 11/22/19 20:40 Dose: 0.5 mg Documented by: [id number] Cetirizine HCl (Zyrtec) 5 mg PO QPM [facility] Stop: 12/22/19 20:59 Last Admin: 11/23/19 22:18 Dose: 5 mg Documented by: [id number] Admin: 11/22/19 20:58 Dose: 5 mg Documented by: [id number] Cholestyramine Resin (Questran) 4 gm PO DAILY@1000 [facility] Stop: 12/23/19 09:59 Last Admin: 11/24/19 10:45 Dose: Not Given Documented by: [id number] Admin: 11/23/19 10:26 Dose: 4 gm Documented by: [id number] Clopidogrel Bisulfate (Plavix) 75 mg PO [facility] Stop: 12/23/19 08:59 Last Admin: 11/24/19 10:45 Dose: Not Given Documented by: [id number] Admin: 11/23/19 07:45 Dose: 75 mg Documented by: [id number] Diltiazem HCl (Tiazac) 120 mg PO [facility] Stop: 12/23/19 08:59 Last Admin: 11/24/19 10:45 Dose: Not Given Documented by: [id number] Admin: 11/23/19 07:46 Dose: 120 mg Documented by: [id number] Docusate Sodium (Colace) 100 mg PO BID [facility] Stop: 12/22/19 20:59 Last Admin: 11/24/19 10:45 Dose: Not Given Documented by: [id number] Admin: 11/23/19 22:17 Dose: Not Given Documented by: [id number] Admin: 11/23/19 07:46 Dose: 100 mg Documented by: [id number] Admin: 11/22/19 20:53 Dose: 100 mg Documented by: [id number] Epinephrine (Raccemic Epinephrine 2.25% 0.5ml) 0.5 ml NEB NOW STA Stop: 11/24/19 09:14 Last Admin: 11/24/19 09:21 Dose: 0.5 ml Documented by: [id number] Fentanyl Citrate (Fentanyl Citrate) Confirm Administered Dose 100 mcg .ROUTE .[facility] Stop: 11/23/19 15:01 Last Admin: 11/23/19 16:26 Dose: Not Given Documented by: [id number] Fentanyl Citrate (Fentanyl Citrate) Confirm Administered Dose 100 mcg .ROUTE .[facility] ONE Stop: 11/23/19 15:26 Last Admin: 11/23/19 16:27 Dose: Not Given Documented by: [id number] Fentanyl Citrate (Fentanyl Citrate) 200 mcg IV NOW ONE Stop: 11/23/19 15:51 Last Increment: 11/23/19 15:30 Dose: 100 mcg Documented by: [id number] Increment: 11/23/19 15:00 Dose: 100 mcg Documented by: [id number] Fentanyl Citrate (Fentanyl Citrate) 100 mcg IV NOW STA Stop: 11/23/19 17:42 Last Admin: 11/23/19 17:55 Dose: 100 mcg Documented by: [id number] Fentanyl Citrate (Fentanyl Citrate) 100 mcg IV NOW STA Stop: 11/23/19 18:18 Last Admin: 11/23/19 18:25 Dose: 100 mcg Documented by: [id number] Gabapentin (Neurontin) 800 mg PO HS JOHN Stop: 12/23/19 20:59 Last Admin: 11/23/19 22:18 Dose: Not Given Documented by: [id number] Guaifenesin (Robitussin Sugar Free Syrup) 100 mg PO Q6H PRN PRN Reason: Cough Stop: 12/22/19 18:56 Last Admin: 11/23/19 10:28 Dose: 100 mg Documented by: [id number] Admin: 11/23/19 04:52 Dose: 100 mg Documented by: [id number] Sodium Chloride (Nss) 500 mls @ 999 mls/hr IV .Q31M ONE Stop: 11/22/19 17:52 Last Infusion: 11/22/19 19:01 Dose: 0 mls/hr Documented by: [id number] Admin: 11/22/19 18:07 Dose: 999 mls/hr Documented by: [id number] Sodium Chloride (Nss 1000ml) 1,000 mls @ 500 mls/hr IV .Q2H ONE Stop: 11/22/19 21:43 Last Infusion: 11/22/19 22:22 Dose: 0 mls/hr Documented by: [id number] Admin: 11/22/19 20:09 Dose: 500 mls/hr Documented by: [id number] Magnesium Sulfate/Dextrose (Magnesium Sulfate / D5w) 1 gm in 100 mls @ 100 mls/hr IV Q1H JOHN Stop: 11/22/19 22:29 Last Infusion: 11/23/19 00:20 Dose: 0 mls/hr Documented by: [id number] Admin: 11/22/19 22:06 Dose: 100 mls/hr Documented by: [id number] Infusion: 11/22/19 21:50 Dose: 100 mls/hr Documented by: [id number] Admin: 11/22/19 20:50 Dose: 100 mls/hr Documented by: [id number] Doxycycline Hyclate 100 mg/ (Dextrose) 110 mls @ 50 mls/hr IV BID JOHN Stop: 11/29/19 20:59 Last Infusion: 11/24/19 11:10 Dose: 0 mls/hr Documented by: [id number] Admin: 11/24/19 08:17 Dose: 50 mls/hr Documented by: [id number] Infusion: 11/23/19 22:54 Dose: 0 mls/hr Documented by: [id number] Admin: 11/23/19 20:42 Dose: 50 mls/hr Documented by: [id number] Infusion: 11/23/19 10:37 Dose: 0 mls/hr Documented by: [id number] Admin: 11/23/19 08:24 Dose: 50 mls/hr Documented by: [id number] Infusion: 11/23/19 00:20 Dose: 0 mls/hr Documented by: [id number] Admin: 11/22/19 22:06 Dose: 50 mls/hr Documented by: [id number] Sodium Chloride (Nss) 500 mls @ 125 mls/hr IV .Q4H JOHN Stop: 11/23/19 00:01 Last Infusion: 11/23/19 02:25 Dose: 0 mls/hr Documented by: [id number] Infusion: 11/23/19 01:48 Dose: 125 mls/hr Documented by: [id number] Infusion: 11/23/19 01:47 Dose: 0 mls/hr Documented by: [id number] Admin: 11/22/19 22:21 Dose: 125 mls/hr Documented by: [id number] Insulin Human Regular 7 units/ (Syringe) 7 mls @ 30 mls/min IV NOW ONE Stop: 11/22/19 22:16 Last Admin: 11/22/19 22:26 Dose: 30 mls/min Documented by: [id number] Cosigned by: [id number] Lactated Ringer's (Lr) 1,000 mls @ 200 mls/hr IV .Q5H JOHN Stop: 12/22/19 23:44 Last Infusion: 11/23/19 16:51 Dose: 0 mls/hr Documented by: [id number] Admin: 11/23/19 16:50 Dose: Not Given Documented by: [id number] Admin: 11/23/19 10:26 Dose: 200 mls/hr Documented by: [id number] Infusion: 11/23/19 09:52 Dose: 200 mls/hr Documented by: [id number] Admin: 11/23/19 04:52 Dose: 200 mls/hr Documented by: [id number] Infusion: 11/23/19 04:52 Dose: 200 mls/hr Documented by: [id number] Admin: 11/23/19 00:19 Dose: 200 mls/hr Documented by: [id number] Methylprednisolone 40 mg/ (Syringe) 0.64 mls @ 1.5 mls/min IV DAILY JOHN Stop: 12/23/19 05:14 Last Admin: 11/23/19 07:45 Dose: 1.5 mls/min Documented by: [id number] Methylprednisolone 40 mg/ (Syringe) 0.64 mls @ 1.5 mls/min IV BID JOHN Stop: 12/23/19 20:59 Last Admin: 11/24/19 08:16 Dose: 1.5 mls/min Documented by: [id number] Admin: 11/23/19 20:42 Dose: 1.5 mls/min Documented by: [id number] Epinephrine HCl 2 mg/ Dextrose 252 mls @ 0 mls/hr IV .Q0M STA; Protocol Stop: 11/23/19 14:37 Last Titration: 11/23/19 15:45 Dose: 0 mcg/kg/min, 0 mls/hr Documented by: [id number] Admin: 11/23/19 14:45 Dose: 0.01 mcg/kg/min, 5.5 mls/hr Documented by: [id number] Cosigned by: [id number] Epinephrine HCl 4 mg/ Dextrose 254 mls @ 2.793 mls/hr IV .Q24H JOHN; Protocol Stop: 12/23/19 14:44 Last Admin: 11/23/19 16:51 Dose: Not Given Documented by: [id number] Insulin Human Regular 250 (units/ Sodium Chloride) 250 mls @ 2 mls/hr IV .Q24H JOHN; Protocol Stop: 12/23/19 15:59 Last Titration: 11/24/19 13:38 Dose: 0 units/hr, 0 mls/hr Documented by: [id number] Cosigned by: [id number] Titration: 11/24/19 12:49 Dose: 2 units/hr, 2 mls/hr Documented by: [id number] Cosigned by: [id number] Titration: 11/24/19 11:45 Dose: 1.7 units/hr, 1.7 mls/hr Documented by: [id number] Cosigned by: [id number] Titration: 11/24/19 10:30 Dose: 1.7 units/hr, 1.7 mls/hr Documented by: [id number] Cosigned by: [id number] Titration: 11/24/19 07:02 Dose: 1.4 units/hr, 1.4 mls/hr Documented by: [id number] Cosigned by: [id number] Titration: 11/24/19 06:00 Dose: 1.4 units/hr, 1.4 mls/hr Documented by: [id number] Cosigned by: [id number] Titration: 11/24/19 04:00 Dose: 1.4 units/hr, 1.4 mls/hr Documented by: [id number] Cosigned by: [id number] Titration: 11/24/19 02:00 Dose: 1.4 units/hr, 1.4 mls/hr Documented by: [id number] Cosigned by: [id number] Titration: 11/24/19 00:00 Dose: 1.4 units/hr, 1.4 mls/hr Documented by: [id number] Cosigned by: [id number] Titration: 11/23/19 23:00 Dose: 1.4 units/hr, 1.4 mls/hr Documented by: [id number] Cosigned by: [id number] Titration: 11/23/19 22:00 Dose: 1.4 units/hr, 1.4 mls/hr Documented by: [id number] Cosigned by: [id number] Titration: 11/23/19 21:00 Dose: 1.4 units/hr, 1.4 mls/hr Documented by: [id number] Cosigned by: [id number] Titration: 11/23/19 20:06 Dose: 1.8 units/hr, 1.8 mls/hr Documented by: [id number] Cosigned by: [id number] Titration: 11/23/19 19:02 Dose: 2.2 units/hr, 2.2 mls/hr Documented by: [id number] Cosigned by: [id number] Titration: 11/23/19 18:50 Dose: 2.2 units/hr, 2.2 mls/hr Documented by: [id number] Cosigned by: [id number] Titration: 11/23/19 18:04 Dose: 2.2 units/hr, 2.2 mls/hr Documented by: [id number] Cosigned by: [id number] Admin: 11/23/19 17:04 Dose: 2.7 units/hr, 2.7 mls/hr Documented by: [id number] Cosigned by: [id number] Propofol (Diprivan) 1,000 mg in 100 mls @ 0 mls/hr IV .Q0M [facility]; Protocol Stop: 11/26/19 16:59 Last Titration: 11/24/19 07:33 Dose: 0 mcg/kg/min, 0 mls/hr Documented by: [id number] Titration: 11/23/19 20:12 Dose: 0 mcg/kg/min, 0 mls/hr Documented by: [id number] Titration: 11/23/19 20:05 Dose: 5 mcg/kg/min, 2.2 mls/hr Documented by: [id number] Titration: 11/23/19 18:50 Dose: 0 mcg/kg/min, 0 mls/hr Documented by: [id number] Cosigned by: [id number] Titration: 11/23/19 16:30 Dose: 0 mcg/kg/min, 0 mls/hr Documented by: [id number] Titration: 11/23/19 16:00 Dose: 10 mcg/kg/min, 4.4 mls/hr Documented by: [id number] Admin: 11/23/19 15:30 Dose: 5 mcg/kg/min, 2.2 mls/hr Documented by: [id number] Cosigned by: [id number] Lactated Ringer's (Lr) 1,000 mls @ 100 mls/hr IV .Q10H JOHN Stop: 11/24/19 03:59 Last Infusion: 11/23/19 20:05 Dose: 0 mls/hr Documented by: [id number] Admin: 11/23/19 15:30 Dose: 100 mls/hr Documented by: [id number] Lactated Ringer's (Lr) 500 mls @ 999 mls/hr IV .Q31M ONE Stop: 11/23/19 18:38 Last Infusion: 11/23/19 19:00 Dose: 0 mls/hr Documented by: [id number] Admin: 11/23/19 18:24 Dose: 999 mls/hr Documented by: [id number] Parenteral Electrolytes (Normosol-R) 1,000 mls @ 150 mls/hr IV .Q6H40M [facility] Stop: 12/23/19 20:44 Last Infusion: 11/24/19 10:54 Dose: 0 mls/hr Documented by: [id number] Infusion: 11/24/19 06:03 Dose: 150 mls/hr Documented by: [id number] Admin: 11/24/19 03:51 Dose: 150 mls/hr Documented by: [id number] Infusion: 11/24/19 03:51 Dose: 150 mls/hr Documented by: [id number] Infusion: 11/24/19 00:19 Dose: 150 mls/hr Documented by: [id number] Admin: 11/23/19 20:55 Dose: 100 mls/hr Documented by: [id number] Fentanyl Citrate (Fentanyl Drip) 1,250 mcg in 250 mls @ 10 mls/hr IV .Q24H JOHN; Protocol Stop: 12/07/19 20:42 Last Titration: 11/24/19 12:18 Dose: 0 mcg/hr, 0 mls/hr Documented by: [id number] Titration: 11/24/19 12:18 Dose: 0 mcg/hr, 0 mls/hr Documented by: [id number] Titration: 11/24/19 08:30 Dose: 50 mcg/hr, 10 mls/hr Documented by: [id number] Titration: 11/24/19 07:03 Dose: 75 mcg/hr, 15 mls/hr Documented by: [id number] Cosigned by: [id number] Titration: 11/23/19 23:00 Dose: 75 mcg/hr, 15 mls/hr Documented by: [id number] Titration: 11/23/19 22:20 Dose: 50 mcg/hr, 10 mls/hr Documented by: [id number] Admin: 11/23/19 20:56 Dose: 25 mcg/hr, 5 mls/hr Documented by: [id number] Cosigned by: [id number] Dexamethasone 6 mg/ Syringe 1.5 mls @ 1 mls/min IV ONE ONE Stop: 11/24/19 09:30 Last Admin: 11/24/19 09:57 Dose: 1 mls/min Documented by: [id number] Thiamine HCl 200 mg/ Sodium (Chloride) 52 mls @ 210 mls/hr IV NOW ONE Stop: 11/24/19 12:44 Last Admin: 11/24/19 13:37 Dose: Not Given Documented by: [id number] Morphine Sulfate (Morphine Sulf/Nss) 250 mg in 250 mls @ 15 mls/hr IV .[id number] [facility]; Protocol Stop: 12/08/19 14:44 Last Titration: 11/25/19 01:25 Dose: 0 mg/hr, 0 mls/hr Documented by: [id number] Titration: 11/24/19 20:22 Dose: 15 mg/hr, 15 mls/hr Documented by: [id number] Titration: 11/24/19 20:03 Dose: 14 mg/hr, 14 mls/hr Documented by: [id number] Titration: 11/24/19 19:46 Dose: 13 mg/hr, 13 mls/hr Documented by: [id number] Titration: 11/24/19 19:26 Dose: 12 mg/hr, 12 mls/hr Documented by: [id number] Titration: 11/24/19 19:09 Dose: 11 mg/hr, 11 mls/hr Documented by: [id number] Titration: 11/24/19 18:42 Dose: 10 mg/hr, 10 mls/hr Documented by: [id number] Titration: 11/24/19 18:25 Dose: 9 mg/hr, 9 mls/hr Documented by: [id number] Titration: 11/24/19 17:56 Dose: 8 mg/hr, 8 mls/hr Documented by: [id number] Titration: 11/24/19 17:23 Dose: 7 mg/hr, 7 mls/hr Documented by: [id number] Titration: 11/24/19 16:40 Dose: 6 mg/hr, 6 mls/hr Documented by: [id number] Titration: 11/24/19 16:16 Dose: 5 mg/hr, 5 mls/hr Documented by: [id number] Titration: 11/24/19 15:45 Dose: 4 mg/hr, 4 mls/hr Documented by: [id number] Titration: 11/24/19 15:17 Dose: 3 mg/hr, 3 mls/hr Documented by: [id number] Admin: 11/24/19 14:53 Dose: 2 mg/hr, 2 mls/hr Documented by: [id number] Cosigned by: [id number] Lorazepam (Ativan) 1 mg in 2 mls @ 2 mls/min IV Q2H PRN PRN Reason: Agitation Stop: 12/24/19 21:37 Last Admin: 11/25/19 00:05 Dose: 2 mls/min Documented by: [id number] Insulin Aspart (Novolog Flexpen) 0 units SC ACHS JOHN Stop: 12/22/19 20:59 Last Admin: 11/23/19 16:52 Dose: Not Given Documented by: [id number] Cosigned by: [id number] Admin: 11/23/19 12:41 Dose: 36 units Documented by: [id number] Cosigned by: [id number] Admin: 11/23/19 08:25 Dose: 11 units Documented by: [id number] Cosigned by: [id number] Admin: 11/22/19 22:18 Dose: 41 units Documented by: [id number] Cosigned by: [id number] Insulin Aspart (Novolog Flexpen) 0 units SC 0000,0400 JOHN Stop: 12/23/19 00:00 Last Admin: 11/23/19 04:33 Dose: 11 units Documented by: [id number] Cosigned by: [id number] Admin: 11/23/19 00:27 Dose: 29 units Documented by: [id number] Cosigned by: [id number] Insulin Aspart (Novolog Flexpen) 0 units SC ACHS [facility] Stop: 12/23/19 16:29 Last Admin: 11/24/19 11:49 Dose: Not Given Documented by: [id number] Cosigned by: [id number] Admin: 11/24/19 07:28 Dose: Not Given Documented by: [id number] Cosigned by: [id number] Admin: 11/23/19 21:08 Dose: Not Given Documented by: [id number] Cosigned by: [id number] Admin: 11/23/19 16:52 Dose: Not Given Documented by: [id number] Cosigned by: [id number] Insulin Human NPH (Novolin N Nph) 70 units SC 2100 ONE Stop: 11/22/19 21:01 Last Admin: 11/22/19 22:20 Dose: 70 units Documented by: [id number] Cosigned by: [id number] Insulin Human NPH (Novolin N Nph) 40 units SC DAILY@0800 [facility]; Protocol Stop: 12/23/19 07:59 Last Admin: 11/23/19 07:47 Dose: 40 units Documented by: [id number] Cosigned by: [id number] Insulin Human Regular (Novolin R U-100 Per Unit) 10 units IV NOW STA Stop: 11/22/19 17:32 Last Admin: 11/22/19 18:07 Dose: 10 units Documented by: [id number] Cosigned by: [id number] Insulin Human Regular (Novolin R Bolus From Bag) 2.5 units IV ONE ONE Stop: 11/23/19 17:01 Last Admin: 11/23/19 17:05 Dose: 2.5 units Documented by: [id number] Cosigned by: [id number] Ipratropium [place] (Atrovent 0.02% 0.5mg/2.5ml) 0.5 mg INH Q4R [facility] Stop: 12/22/19 22:59 Last Admin: 11/24/19 07:09 Dose: 0.5 mg Documented by: [id number] Admin: 11/24/19 04:16 Dose: 0.5 mg Documented by: [id number] Admin: 11/23/19 23:09 Dose: 0.5 mg Documented by: [id number] Admin: 11/23/19 20:51 Dose: 0.5 mg Documented by: [id number] Admin: 11/23/19 14:11 Dose: 0.5 mg Documented by: [id number] Admin: 11/23/19 10:46 Dose: 0.5 mg Documented by: [id number] Admin: 11/23/19 07:19 Dose: 0.5 mg Documented by: [id number] Admin: 11/23/19 03:05 Dose: 0.5 mg Documented by: [id number] Admin: 11/22/19 23:10 Dose: 0.5 mg Documented by: [id number] Ipratropium [place] (Atrovent 0.02% 0.5mg/2.5ml) 0.5 mg INH Q6R [facility] Stop: 12/24/19 12:59 Last Admin: 11/24/19 12:30 Dose: 0.5 mg Documented by: [id number] Isosorbide Mononitrate (Imdur Extended Rel) 30 mg PO QAM [facility] Stop: 12/23/19 08:59 Last Admin: 11/24/19 10:45 Dose: Not Given Documented by: [id number] Admin: 11/23/19 07:46 Dose: 30 mg Documented by: [id number] Levalbuterol HCl (Xopenex 1.25mg/0.5ml Neb) 1.25 mg INH Q4R [facility] Stop: 12/22/19 22:59 Last Admin: 11/24/19 07:09 Dose: 1.25 mg Documented by: [id number] Admin: 11/24/19 04:17 Dose: 1.25 mg Documented by: [id number] Admin: 11/23/19 23:09 Dose: 1.25 mg Documented by: [id number] Admin: 11/23/19 20:51 Dose: 1.25 mg Documented by: [id number] Admin: 11/23/19 14:12 Dose: 1.25 mg Documented by: [id number] Admin: 11/23/19 10:46 Dose: 1.25 mg Documented by: [id number] Admin: 11/23/19 07:19 Dose: 1.25 mg Documented by: [id number] Admin: 11/23/19 03:05 Dose: 1.25 mg Documented by: [id number] Admin: 11/22/19 23:10 Dose: 1.25 mg Documented by: [id number] Levalbuterol HCl (Xopenex 0.63 Mg/3 Ml Neb) 0.63 mg NEB Q6R JOHN Stop: 12/24/19 12:59 Last Admin: 11/24/19 12:30 Dose: 0.63 mg Documented by: [id number] Lorazepam (Ativan) 0.5 mg PO Q6 PRN PRN Reason: Anxiety Stop: 12/22/19 18:56 Last Admin: 11/23/19 14:03 Dose: 0.5 mg Documented by: [id number] Losartan Potassium ([facility]ar) [facility] [place] Stop: 12/23/19 08:59 Last Admin: 11/24/19 10:45 Dose: Not Given Documented by: [id number] Admin: 11/23/19 07:46 Dose: 100 mg Documented by: [id number] Magnesium Oxide (Mag-Ox) 400 mg PO [facility] Stop: 12/23/19 08:59 Last Admin: 11/24/19 08:18 Dose: 400 mg Documented by: [id number] Admin: 11/23/19 07:45 Dose: 400 mg Documented by: [id number] Methylprednisolone (Solumedrol) [address] [facility] Stop: 11/22/19 17:32 Last Admin: 11/22/19 18:07 Dose: 60 mg Documented by: [id number] Metoprolol Succinate (Toprol Xl) 25 mg PO BID [facility] Stop: 12/22/19 20:59 Last Admin: 11/24/19 10:45 Dose: Not Given Documented by: [id number] Admin: 11/23/19 21:10 Dose: Not Given Documented by: [id number] Admin: 11/23/19 07:46 Dose: 25 mg Documented by: [id number] Admin: 11/22/19 20:52 Dose: 25 mg Documented by: [id number] Midazolam HCl (Versed) Confirm Administered Dose 2 mg .ROUTE .STK-MED ONE Stop: 11/23/19 15:02 Last Admin: 11/23/19 16:27 Dose: Not Given Documented by: [id number] Midazolam HCl (Versed) Confirm Administered Dose 2 mg .ROUTE .STK-MED ONE Stop: 11/23/19 15:25 Last Admin: 11/23/19 16:29 Dose: Not Given Documented by: [id number] Midazolam HCl (Versed) 2 mg IV ONE ONE Stop: 11/23/19 15:52 Last Admin: 11/23/19 15:00 Dose: 2 mg Documented by: [id number] Midazolam HCl (Versed) 2 mg IV NOW STA Stop: 11/23/19 15:53 Last Admin: 11/23/19 15:30 Dose: 2 mg Documented by: [id number] Midazolam HCl (Versed) 2 mg IV Q2H PRN PRN Reason: agitation/anxiety Stop: 12/23/19 16:18 Last Admin: 11/24/19 03:52 Dose: 2 mg Documented by: [id number] Admin: 11/24/19 02:08 Dose: 2 mg Documented by: [id number] Admin: 11/24/19 00:01 Dose: 2 mg Documented by: [id number] Admin: 11/23/19 22:18 Dose: 2 mg Documented by: [id number] Admin: 11/23/19 20:05 Dose: 2 mg Documented by: [id number] Admin: 11/23/19 16:00 Dose: 2 mg Documented by: [id number] Mirtazapine (Remeron Solutab) 45 mg PO [facility] Stop: 12/23/19 20:59 Last Admin: 11/24/19 21:05 Dose: Not Given Documented by: [id number] Admin: 11/23/19 22:19 Dose: Not Given Documented by: [id number] Miscellaneous (Levalbuterol/Ipratropium 1.25mg) 1 ea NEB Q4H [facility] Stop: 12/22/19 20:01 Last Admin: 11/23/19 07:57 Dose: Not Given Documented by: [id number] Miscellaneous () Confirm Administered Dose 1 ea .ROUTE .STK-MED ONE Stop: 11/24/19 09:31 Last Admin: 11/24/19 10:55 Dose: Not Given Documented by: [id number] Miscellaneous Information (Nursing To Pharmacy Communication) 1 ea N/A ONE ONE Stop: 11/24/19 11:53 Last Admin: 11/24/19 13:38 Dose: Not Given Documented by: [id number] Montelukast Sodium (Singulair) 10 mg PO [facility] Stop: 12/22/19 20:59 Last Admin: 11/23/19 22:19 Dose: 10 mg Documented by: [id number] Admin: 11/22/19 20:51 Dose: 10 mg Documented by: [id number] Morphine Sulfate (Morphine Sulfate) 2 mg IV Q1H PRN PRN Reason: air hunger/pain Stop: 12/08/19 12:59 Last Admin: 11/25/19 00:05 Dose: 2 mg Documented by: [id number] Admin: 11/24/19 14:03 Dose: 2 mg Documented by: [id number] Morphine Sulfate (Morphine Sulfate) 2 mg IV NOW STA Stop: 11/24/19 12:59 Last Admin: 11/24/19 13:13 Dose: 2 mg Documented by: [id number] Nitroglycerin (Nitro-Bid 2%) 1 inch EXT NOW STA Stop: 11/24/19 12:02 Last Admin: 11/24/19 12:10 Dose: 1 inch Documented by: [id number] Nitroglycerin (Nitro-Bid 2%) 1 inch EXT ONE STA Stop: 11/24/19 12:36 Last Admin: 11/24/19 12:51 Dose: 1 inch Documented by: [id number] Nitroglycerin (Nitrostat) 0.4 mg SL ONE STA Stop: 11/24/19 12:36 Last Admin: 11/24/19 12:51 Dose: 0.4 mg Documented by: [id number] Pantoprazole Sodium (Protonix) 40 mg PO BID JOHN Stop: 12/22/19 20:59 Last Admin: 11/24/19 10:45 Dose: Not Given Documented by: [id number] Admin: 11/23/19 22:18 Dose: Not Given Documented by: [id number] Admin: 11/23/19 07:47 Dose: 40 mg Documented by: [id number] Admin: 11/22/19 21:00 Dose: 40 mg Documented by: [id number] Propofol (Diprivan) Confirm Administered Dose 1,000 mg IV .STK-MED ONE Stop: 11/23/19 15:26 Last Admin: 11/23/19 17:42 Dose: Not Given Documented by: [id number] Ropinirole HCl (Requip) 1 mg PO HS JOHN Stop: 12/23/19 20:59 Last Admin: 11/23/19 22:19 Dose: Not Given Documented by: [id number] Sertraline HCl (Zoloft) 25 mg PO QPM [facility] Stop: 12/22/19 20:59 Last Admin: 11/23/19 22:18 Dose: 25 mg Documented by: [id number] Admin: 11/22/19 20:52 Dose: 25 mg Documented by: [id number] Trazodone HCl (Desyrel) 50 mg PO [facility] Stop: 12/23/19 20:59 Last Admin: 11/23/19 22:18 Dose: Not Given Documented by: [id number] Warfarin Sodium (Coumadin) 5 mg PO DAILY@1600 [facility] Stop: 12/22/19 20:29 Last Admin: 11/23/19 16:35 Dose: Not Given Documented by: [id number] Admin: 11/22/19 20:53 Dose: 5 mg Documented by: [id number] Medical Decision Making Differential Diagnosis Differential diagnoses includes but is not limited to pneumonia, bronchitis, CO PD/Asthma exacerbation, pneumothorax, pulmonary embolism, congestive heart failure, acute coronary syndrome. Medical Records Attestation: I reviewed the patient's medical records. Home Medications Current Medication List: was personally reviewed by me Laboratory Data Attestation: I reviewed the patient's lab results. Result diagrams: 11/24/19 04:15 11/24/19 10:19 Lab Results 11/22/19 11/22/19 11/22/19 Range/Units 15:43 16:06 16:06 WBC 10.66 (4.8-10.8) K/uL RBC 3.83 L (4.2-5.4) M/uL Hgb 10.4 L (12.0-16.0) g/dL Hct 31.1 L (37-47) % MCV 81.2 (80-100) fL MCH 27.2 (25-34) pg MCHC 33.4 (32-36) g/dL RDW Std Deviation 46.4 H (36.4-46.3) fL RDW Coeff of Stormy 15.7 H (11.5-14.5) % Plt Count 182 (130-400) K/uL MPV 9.8 (7.4-10.4) fL Immature Gran % (Auto) 0.3 % Neut % (Auto) 54.2 % Lymph % (Auto) 31.0 % [place] % (Auto) 11.2 % Eos % (Auto) 2.6 % Baso % (Auto) 0.7 % Immature Gran # (Auto) 0.03 H (0.00-0.02) K/uL Neut # (Auto) 5.79 (1.4-6.5) K/uL Lymph # (Auto) 3.30 (1.2-3.4) K/uL [place] # (Auto) 1.19 H (0.11-0.59) K/uL Eos # (Auto) 0.28 (0-0.5) K/uL Baso # (Auto) 0.07 (0-0.2) K/uL PT (9.0-12.0) Seconds INR (0.9-1.1) VBG pH (7.36-7.41) VBG pCO2 (38-50) mmHg VBG pO2 mmHg VBG HCO3 mmol/L VBG O2 Saturation % VBG Base Excess mEq/L Barometric Pressure mm/Hg Sodium (136-145) mmol/L Potassium (3.5-5.1) mmol/L Chloride (98-107) mmol/L Carbon Dioxide (21-32) mmol/L Anion Gap (3-11) BUN (7-18) mg/dl Creatinine (0.6-1.2) mg/dl Est Cr Clr Drug Dosing ml/min Est GFR ( Amer) Est GFR (Non-Af Amer) BUN/Creatinine Ratio (10-20) Glucose (70-99) mg/dl Lactate (0.4-2.0) mmol/L Calcium (8.5-10.1) mg/dl Magnesium (1.8-2.4) mg/dl Total Bilirubin (0.2-1) mg/dl AST (15-37) U/L ALT (12-78) U/L Alkaline Phosphatase (45-117) U/L Troponin I (0-0.045) ng/ml Total Protein (6.4-8.2) gm/dl Albumin (3.4-5.0) gm/dl Globulin (2.5-4.0) gm/dl Albumin/Globulin Ratio (0.9-2) Lipase (73-393) U/L Beta-Hydroxybutyric Acd (0.2-2.81) mg/dl Procalcitonin (0-0.5) ng/ml Influenza Type A Ag Neg for Influ A (Neg) Influenza Type A (PCR) Neg for Influ A (Neg) Influenza Type B Ag Neg for Influ B (Neg) Influenza Type B (PCR) Neg for Influ B (Neg) 11/22/19 11/22/19 11/22/19 Range/Units 16:18 16:18 16:22 WBC (4.8-10.8) K/uL RBC (4.2-5.4) M/uL Hgb (12.0-16.0) g/dL Hct (37-47) % MCV (80-100) fL MCH (25-34) pg MCHC (32-36) g/dL RDW Std Deviation (36.4-46.3) fL RDW Coeff of Stormy (11.5-14.5) % Plt Count (130-400) K/uL MPV (7.4-10.4) fL Immature Gran % (Auto) % Neut % (Auto) % Lymph % (Auto) % [place] % (Auto) % Eos % (Auto) % Baso % (Auto) % Immature Gran # (Auto) (0.00-0.02) K/uL Neut # (Auto) (1.4-6.5) K/uL Lymph # (Auto) (1.2-3.4) K/uL [place] # (Auto) (0.11-0.59) K/uL Eos # (Auto) (0-0.5) K/uL Baso # (Auto) (0-0.2) K/uL PT 19.0 H (9.0-12.0) Seconds INR 1.9 H (0.9-1.1) VBG pH 7.36 (7.36-7.41) VBG pCO2 32 L (38-50) mmHg VBG pO2 44 mmHg VBG HCO3 18 mmol/L VBG O2 Saturation 78.0 % VBG Base Excess -7.0 mEq/L Barometric Pressure 723.1 mm/Hg Sodium (136-145) mmol/L Potassium (3.5-5.1) mmol/L Chloride (98-107) mmol/L Carbon Dioxide (21-32) mmol/L Anion Gap (3-11) BUN (7-18) mg/dl Creatinine (0.6-1.2) mg/dl Est Cr Clr Drug Dosing ml/min Est GFR ( Amer) Est GFR (Non-Af Amer) BUN/Creatinine Ratio (10-20) Glucose (70-99) mg/dl Lactate 3.3 H* (0.4-2.0) mmol/L Calcium (8.5-10.1) mg/dl Magnesium (1.8-2.4) mg/dl Total Bilirubin (0.2-1) mg/dl AST (15-37) U/L ALT (12-78) U/L Alkaline Phosphatase (45-117) U/L Troponin I (0-0.045) ng/ml Total Protein (6.4-8.2) gm/dl Albumin (3.4-5.0) gm/dl Globulin (2.5-4.0) gm/dl Albumin/Globulin Ratio (0.9-2) Lipase (73-393) U/L Beta-Hydroxybutyric Acd (0.2-2.81) mg/dl Procalcitonin (0-0.5) ng/ml Influenza Type A Ag (Neg) Influenza Type A (PCR) (Neg) Influenza Type B Ag (Neg) Influenza Type B (PCR) (Neg) 11/22/19 11/22/19 11/22/19 Range/Units 16:22 16:22 16:22 WBC (4.8-10.8) K/uL RBC (4.2-5.4) M/uL Hgb (12.0-16.0) g/dL Hct (37-47) % MCV (80-100) fL MCH (25-34) pg MCHC (32-36) g/dL RDW Std Deviation (36.4-46.3) fL RDW Coeff of Stormy (11.5-14.5) % Plt Count (130-400) K/uL MPV (7.4-10.4) fL Immature Gran % (Auto) % Neut % (Auto) % Lymph % (Auto) % [place] % (Auto) % Eos % (Auto) % Baso % (Auto) % Immature Gran # (Auto) (0.00-0.02) K/uL Neut # (Auto) (1.4-6.5) K/uL Lymph # (Auto) (1.2-3.4) K/uL [place] # (Auto) (0.11-0.59) K/uL Eos # (Auto) (0-0.5) K/uL Baso # (Auto) (0-0.2) K/uL PT (9.0-12.0) Seconds INR (0.9-1.1) VBG pH (7.36-7.41) VBG pCO2 (38-50) mmHg VBG pO2 mmHg VBG HCO3 mmol/L VBG O2 Saturation % VBG Base Excess mEq/L Barometric Pressure mm/Hg Sodium 133 L (136-145) mmol/L Potassium 4.6 (3.5-5.1) mmol/L Chloride 106 (98-107) mmol/L Carbon Dioxide 18 L (21-32) mmol/L Anion Gap 9.0 (3-11) BUN 36 H (7-18) mg/dl Creatinine 2.12 H (0.6-1.2) mg/dl Est Cr Clr Drug Dosing 19.1 ml/min Est GFR ( Amer) 25.0 Est GFR (Non-Af Amer) 21.6 BUN/Creatinine Ratio 16.9 (10-20) Glucose 419 H* (70-99) mg/dl Lactate (0.4-2.0) mmol/L Calcium 8.3 L (8.5-10.1) mg/dl Magnesium 1.9 (1.8-2.4) mg/dl Total Bilirubin 0.2 (0.2-1) mg/dl AST 35 (15-37) U/L ALT 29 (12-78) U/L Alkaline Phosphatase 140 H (45-117) U/L Troponin I 0.024 (0-0.045) ng/ml Total Protein 7.4 (6.4-8.2) gm/dl Albumin 3.1 L (3.4-5.0) gm/dl Globulin 4.3 H (2.5-4.0) gm/dl Albumin/Globulin Ratio 0.7 L (0.9-2) Lipase 89 (73-393) U/L Beta-Hydroxybutyric Acd 1.99 (0.2-2.81) mg/dl Procalcitonin 0.08 (0-0.5) ng/ml Influenza Type A Ag (Neg) Influenza Type A (PCR) (Neg) Influenza Type B Ag (Neg) Influenza Type B (PCR) (Neg) 11/22/19 Range/Units 18:14 WBC (4.8-10.8) K/uL RBC (4.2-5.4) M/uL Hgb (12.0-16.0) g/dL Hct (37-47) % MCV (80-100) fL MCH (25-34) pg MCHC (32-36) g/dL RDW Std Deviation (36.4-46.3) fL RDW Coeff of Stormy (11.5-14.5) % Plt Count (130-400) K/uL MPV (7.4-10.4) fL Immature Gran % (Auto) % Neut % (Auto) % Lymph % (Auto) % [place] % (Auto) % Eos % (Auto) % Baso % (Auto) % Immature Gran # (Auto) (0.00-0.02) K/uL Neut # (Auto) (1.4-6.5) K/uL Lymph # (Auto) (1.2-3.4) K/uL [place] # (Auto) (0.11-0.59) K/uL Eos # (Auto) (0-0.5) K/uL Baso # (Auto) (0-0.2) K/uL PT (9.0-12.0) Seconds INR (0.9-1.1) VBG pH (7.36-7.41) VBG pCO2 (38-50) mmHg VBG pO2 mmHg VBG HCO3 mmol/L VBG O2 Saturation % VBG Base Excess mEq/L Barometric Pressure mm/Hg Sodium (136-145) mmol/L Potassium (3.5-5.1) mmol/L Chloride (98-107) mmol/L Carbon Dioxide (21-32) mmol/L Anion Gap (3-11) BUN (7-18) mg/dl Creatinine (0.6-1.2) mg/dl Est Cr Clr Drug Dosing ml/min Est GFR ( Amer) Est GFR (Non-Af Amer) BUN/Creatinine Ratio (10-20) Glucose (70-99) mg/dl Lactate 4.7 H* (0.4-2.0) mmol/L Calcium (8.5-10.1) mg/dl Magnesium (1.8-2.4) mg/dl Total Bilirubin (0.2-1) mg/dl AST (15-37) U/L ALT (12-78) U/L Alkaline Phosphatase (45-117) U/L Troponin I (0-0.045) ng/ml Total Protein (6.4-8.2) gm/dl Albumin (3.4-5.0) gm/dl Globulin (2.5-4.0) gm/dl Albumin/Globulin Ratio (0.9-2) Lipase (73-393) U/L Beta-Hydroxybutyric Acd (0.2-2.81) mg/dl Procalcitonin (0-0.5) ng/ml Influenza Type A Ag (Neg) Influenza Type A (PCR) (Neg) Influenza Type B Ag (Neg) Influenza Type B (PCR) (Neg) Imaging Data Radiologist's Impression: Radiology results as stated below per my review and the radiologist's interpretation: XR chest 1V portable HISTORY: 79 years-old Female cough acute cough COMPARISON: Chest radiographs 08/21/2019, chest CT 08/17/2019 TECHNIQUE: Portable AP view of the chest FINDINGS: Cardiac silhouette is enlarged, unchanged. Calcified plaque of the thoracic aorta. Opacity of the medial right lung apex, likely external to the patient. No pneumothorax, overt pulmonary edema or large pleural effusion. Mild blunting of the costophrenic angles may be secondary to atelectasis versus trace effusions. Asymmetric patchy left lung base opacities. Mild chronic interstitial coarsening. Degenerative changes of the shoulders and spine. Right IJ central venous catheter is unchanged. IMPRESSION: 1. Cardiomegaly without overt pulmonary edema. 2. Subtle patchy asymmetric left lung base opacities suggest atelectasis versus pneumonitis. 3. Opacity of the medial right lung apex is likely secondary to object external to the patient. ACT 112: Negative or not required by law. The above report was generated using voice recognition software. It may contain grammatical, syntax or spelling errors. Electronically signed by: Rob Juarez M.D. 11/22/2019 4:26 PM ECG Data Attestation: I personally reviewed and interpreted this ECG as follows: Indication: + SOB/dyspnea Rate (beats per minute): 74 Rhythm: + normal sinus ECG Intervals/blocks: + Left bundle branch block ECG ST segments: no ST depression and no ST elevation ECG Findings: no PVCs Comparison ECG Date: from (11/04/19) Change: no significant change Blood Pressure Blood Pressure Findings: Elevated blood pressure Blood Pressure Disposition: further management by hospitalist KYLE Narrative Patient is a 79-year-old female with an extensive past medical history including but not limited to stroke, CAD, COPD, diabetes, atrial fibrillation maintained on Coumadin presenting here today with son who reports failure is been sick with sinus issues and she developed a cough over the past 3 to 4 days. Significantly wheezy upon exam in the room and feels somewhat weak and mildly confused. Diffuse expiratory wheeze. Given DuoNeb treatment. Patient also states her blood sugars have been elevated in the 500s and 600s. This was checked and 419 here. Basic labs were sent. VBG blood cultures and lactate was ordered. Patient initially resistant to steroids as she states they have made her blood sugars high before. Evaluation for pneumonia on chest x-ray was unremarkable. No significant leukocytosis. Anemia at baseline. Chest x-ray without overt evidence of pulmonary edema. Asymmetric left lung base per radiology report procalcitonin not significantly elevated. Troponin detectable but not abnormal. Worsened kidney function today and elevated lactate. 500mL NSS bolus given. Blo od cultures pending. Patient still significantly wheezy on reevaluation. Believe COPD exacerbation is primary issues here. Given a small mount of fluid. Patient in discussion was given some insulin and agreed for steroids. She was agreement to stay for further evaluation in hospital. [facility] hospitalist contacted. Discharge Plan Visit Data *Final* Discharge Date/Time: 11/22/19 19:17 Chief Complaint: Respiratory Problems Stated Complaint: SOB, COUGH ED Provider: Dylan Sheffield Discharge Problem: COPD exacerbation, Weakness, Acute kidney injury, Elevated lactic acid level, Hyperglycemia due to type 2 diabetes mellitus Patient Disposition: Admitted As Inpatient Discharge Instructions Interventions: ED Discharge Assessment Last Done: 11/22/19 19:17 Date/Time: 11/25/19 02:26 Resident Activity Tracking Resident Involvement: Medical Underwriter Coverage Note (This patient was not seen by me within the ED. This note was entered into in error prior to admission of patient from the ED.) Care Provided: Adult Hospital Medicine Discharge Problem: Hyperglycemia due to type 2 diabetes mellitus Qualifiers: Diabetes mellitus joint terminal attack controller insulin use: unspecified half-way insulin use status Qualified Code(s): E11.65 - Type 2 diabetes mellitus with hyperglycemia The scribe's documentation has been prepared under my direction and personally reviewed by me in its entirety. I confirm that the note above accurately reflects all work, treatment, procedures, and medical decision making performed by me.
--- NOTE | 2019-11-22 18:27 | History & Physical Report ---
Date of Service November 22, 2019 Assessment & Plan (1) COPD exacerbation: This is a 79-year-old female from [facility] with a PMH of COPD, DM II on insulin, CAD, history of CVA, CKD 3, hypertension, IPMN, recurrent pancreatitis and other medical problems listed below who presents with shortness of breath and wheezing x5 days and was found to have COPD exacerbation. Endorses shortness of breath and wheezing x5 days Oxygen saturation of 97% on room air No leukocytosis, procalcitonin normal, flu PCR negative Diffuse wheezing on exam. Chest x-ray with cardiomegaly without overt pulmonary edema, possible atelectasis Will continue DuoNeb treatment, IV Solu-Medrol Q8H, doxycycline (2) Elevated lactic acid level: Initial lactic acid elevated at 3.3 No evidence of sepsis or pneumonia Likely elevated in the setting of hyperglycemia, COPD exacerbation Gentle IV hydration in the setting of diastolic heart failure, moderate aortic stenosis. Continue to trend lactate (3) Acute kidney injury superimposed on chronic kidney disease: Cr elevated at 2.12 (baseline high 1s) Poor PO intake in setting of COPD exacerbation Gentle IV fluids May need torsemide held tomorrow (4) Hyperglycemia due to type 2 diabetes mellitus: A1c of 10.4 in Jul 2019 Initial glucose elevated at 419. Beta hydroxybutyric acid normal, no anion gap no DKA/HHS-- likely uncontrolled at baseline Glycemic consult placed in setting of IV steroid requirement (5) Paroxysmal atrial fibrillation: Continue diltiazem Coumadin for anticoagulation -to be given evening dose Monitor daily INR (6) Diastolic CHF: Echocardiogram completed previous hospitalization LVEF 60-65%, mod aortic stenosis, grade I DD 07/27/19 and 07/12/19 Appears euvolemic currently Takes torsemide 10 mg MWF -need to evaluate need for diuretic tomorrow in setting of MARIE (7) History of CVA (cerebrovascular accident): No deficits. Continue plavix and statin (8) CAD (coronary artery disease): History of GAETANO x2 in 01/2019 Continue plavix, statin, metoprolol, losartan, imdur DVT Ppx: coumadin Code status: FULL PCP: Buddy [facility]po: [facility] planning ordered for return to [facility]. Patient seen in collaboration with Dr. Carrillo. Please see addendum. History of Present Illness Chief Complaint: Shortness of breath, wheezing Primary Care Provider: [facility] This is a 79-year-old female from [facility] with a PMH of COPD, DM II on insulin, CAD, history of CVA, CKD 3, hypertension, IPMN, recurrent pancreatitis and other medical problems listed below who presents with shortness of breath and wheezing x5 days. Patient was around sick family members over the holidays and developed shortness of breath and wheezing last Thursday. Also endorses nonproductive cough and decreased p.o. intake. Denies any fever, chills, lightheadedness, visual changes, sore throat, sputum production, hemoptysis, chest pain, palpitations, nausea, vomiting, abdominal pain, dysuria, diarrhea or constipation. Allergies Allergy/AdvReac Type Severity Reaction Status Date / Time gadobutrol [From Gadavist] Allergy Severe Anaphylaxis Verified 11/22/19 16:10 Gadolinium-Containing Allergy Severe NAUSEA,VOMITING, Verified 11/22/19 16:10 Contrast Medi SWELLING/EDEMA AROUND EYES, WHEEZING Iodinated Contrast Media Allergy Severe RASH TO Verified 11/22/19 16:10 IVP DYE,NAUSEA, FAINTING, COUGHING, GAGGING, HEADACH Sulfa (Sulfonamide Allergy Severe HIVES, Verified 11/22/19 16:10 Antibiotics) FACIAL AND ARM SWELLING cerivastatin Allergy Intermediate HIVES Verified 11/22/19 16:10 codeine Allergy Intermediate "PRICKLY Verified 11/22/19 16:10 RASH" hydroxyzine Allergy Intermediate N/V Verified 11/22/19 16:10 latex Allergy Intermediate DERMATITIS-PT Verified 11/22/19 16:10 TOLERATED A LATEX CATHETER 03/26/08 prednisone Allergy Intermediate elevates Verified 11/22/19 16:10 blood sugar Bactrim Allergy Mild RASH Verified 04/29/18 14:40 diphenhydramine Allergy Mild RASH; Verified 11/04/19 07:27 SLEEPINESS WITH "PHARBEDRYL" loratadine Allergy Mild HIVES Verified 11/04/19 07:27 sulfamethoxazole Allergy Mild RASH Verified 11/04/19 07:27 trimethoprim Allergy Mild RASH Verified 11/04/19 07:27 alprazolam AdvReac Intermediate "SLEEPY Verified 11/04/19 07:27 STUPER" metformin AdvReac Intermediate DIARRHEA Verified 11/04/19 07:27 tetanus toxoid, adsorbed AdvReac Intermediate SWELLING Verified 11/04/19 07:27 AT INJECTION SITE morphine AdvReac Mild VOMITING Verified 11/04/19 07:27 simvastatin AdvReac Mild COUGH, Verified 11/04/19 07:27 "DISCOMFORT" Home Medications Home Medications Medication Instructions Recorded Confirmed Type lorazepam [Ativan] 0.5 mg PO Q6 PRN 08/24/18 11/22/19 History ondansetron HCl [Zofran] 4 mg PO Q8H PRN 08/24/18 11/22/19 History mirtazapine 45 mg PO HS 01/26/19 11/22/19 History ropinirole 1 mg PO HS 01/26/19 11/22/19 History atorvastatin 40 mg PO QAM #30 tab 01/28/19 11/22/19 Rx clopidogrel 75 mg PO QAM #30 tab 01/28/19 11/22/19 Rx isosorbide mononitrate 30 mg PO QAM #30 tab 01/28/19 11/22/19 Rx nitroglycerin [Nitrostat] 0.4 mg SUBLINGUAL PRN PRN #30 tab 01/28/19 11/22/19 Rx magnesium oxide 400 mg PO QAM 07/11/19 11/22/19 History cholestyramine-aspartame 4 g PO QAM 08/16/19 11/22/19 History losartan 100 mg PO QAM 08/16/19 11/22/19 History simethicone 80 mg PO Q6H PRN 08/16/19 11/22/19 History Novolin N NPH U-100 Insulin 70 unit SUBCUT QAM 10/26/19 11/22/19 History acetaminophen 650 mg PO Q4H PRN 10/26/19 11/22/19 History bisacodyl 10 mg DE DAILY PRN 10/26/19 11/22/19 History budesonide 0.5 mg INHALATION BID 10/26/19 11/22/19 History cetirizine 5 mg PO QPM 10/26/19 11/22/19 History dicyclomine 10 mg PO TID PRN 10/26/19 11/22/19 History diltiazem HCl 120 mg PO QAM 10/26/19 11/22/19 History docusate sodium 100 mg PO BID 10/26/19 11/22/19 History gabapentin 800 mg PO HS 10/26/19 11/22/19 History magnesium hydroxide [Milk of 30 ml PO DAILY PRN 10/26/19 11/22/19 History Magnesia] meclizine 12.5 mg PO Q8H PRN 10/26/19 11/22/19 History metoprolol succinate 25 mg PO BID 10/26/19 11/22/19 History montelukast 10 mg PO HS 10/26/19 11/22/19 History pantoprazole 40 mg PO BID 10/26/19 11/22/19 History polyethylene glycol 3350 17 g PO DAILY PRN 10/26/19 11/22/19 History sennosides [senna] 8.6 mg PO DAILY PRN 10/26/19 11/22/19 History sertraline 25 mg PO QPM 10/26/19 11/22/19 History torsemide 10 mg PO 3XWK 10/26/19 11/22/19 History trazodone 50 mg PO HS 10/27/19 11/22/19 History guaifenesin 100 mg PO Q6H PRN 11/22/19 11/22/19 History insulin NPH isoph U-100 human 48 unit SUBCUT .QDINNER 11/22/19 11/22/19 History [Novolin N NPH U-100 Insulin] warfarin [Coumadin] 5 mg PO DAILY 11/22/19 11/22/19 History Past Med/Surg History Medical History Anxiety (Chronic) Aortic stenosis (Chronic) moderate Cerebrovascular disease (Chronic) "history stroke and TIA" L sided weakness. Chronic pancreatitis (Chronic) CKD (chronic kidney disease), stage III (Chronic) F/U PCP COPD (chronic obstructive pulmonary disease) (Chronic) Depression (Chronic) Diabetes mellitus, type II (Chronic) poorly controlled Dyslipidemia (Chronic) Fatty liver (Chronic) Gastroparesis (Chronic) GERD (gastroesophageal reflux disease) Giant cell arteritis (Resolved) HTN (hypertension) (Chronic) Left bundle branch block Non-STEMI (non-ST elevated myocardial infarction) 01/2019 Osteoarthritis (Chronic) Pancreatic cyst (Chronic) Pancreatic divisum (Chronic) Pancreatitis (Chronic) Peripheral neuropathy (Chronic) RLS (restless legs syndrome) (Chronic) Seasonal allergies (Chronic) Sleep apnea (Chronic) PT DENIES/NO DEVICE Valvular heart disease Surgical History History of bilateral tubal ligation (Resolved) History of cataract surgery (Chronic) both eyes History of ERCP (Resolved) x3 with stents. ERCP 04/30/18. MAC 3, grade 2 view. 7.0 ETT placed. No issues. S/P cardiac catheterization (Resolved) 01/2019 [facility] X 2-TOTAL 2 STENTS 04/2019 non obstructive disease Family History Daughter No problems noted. Father Family history of diabetes mellitus Family/Other Family history of diabetes mellitus Mother Family history of diabetes mellitus Grandfather Family history of diabetes mellitus Grandmother Family history of diabetes mellitus Social History Preferred Language: [place] Communication Ability: Effective School Bus Aide Required: No Beliefs That Will Affect Care: None marital status: / Current Living Situation: [facility] Current Living Situation Comment: january 21, no longer has drivers license - stroke Feels Safe at Home: Yes Smoking Status: Former smoker Second Hand Exposure: No ; Review of Systems Review of Systems: At least ten systems reviewed and negative except as noted in the HPI. Physical Exam Physical Exam: General Appearance: WD/WN, vitals as above, NAD, sitting up in bed, appears chronically ill, audibly wheezing and short of breath while speaking Head: normocephalic, atraumatic Eyes: normal inspection, PERRL, conjunctivae normal, anicteric sclerae ENT: external ear and nose normal, oropharynx normal Neck: trachea midline, no thyromegaly normal visual inspection Respiratory: Increased respiratory effort, diffuse wheezing heard in lung page, no rales or rhonchi. No accessory muscle use Cardiovascular: regular rate, rhythm, systolic murmur, normal peripheral pulses. Vessels: no JVD or carotid bruit Chest: normal inspection of chest Abdomen/GI: normal bowel sounds, soft, nontender, no hepatosplenomegaly Extremities/Musculoskelatal: no cyanosis or clubbing, extremities motor strength 5/5 Neurologic: PERRL, EOMI, accommodation nl, no face palsy, no dysarthria, CN's II-XI intact bilaterally and moves all extremities Psychiatric: A+Ox3, euthymic affect Skin: no rashes, normal color, warm/dry Results & Data Vital Signs (Past 12 Hours) Vital Signs Temp Pulse Pulse Resp BP BP Pulse Ox 11/22/19 16:36 77 20 130/62 100 11/22/19 16:10 100 11/22/19 16:07 86 26 H 91 11/22/19 14:41 37 C 78 22 166/68 H 98 Laboratory Results Short CBC 11/22/19 Range/Units 15:43 WBC 10.66 (4.8-10.8) K/uL Hgb 10.4 L (12.0-16.0) g/dL Hct 31.1 L (37-47) % Plt Count 182 (130-400) K/uL BMP 11/22/19 16:22 Sodium 133 L Potassium 4.6 Chloride 106 Carbon Dioxide 18 L BUN 36 H Creatinine 2.12 H Glucose 419 H* Calcium 8.3 L Cardiac Enzymes 11/22/19 Range/Units 16:22 Troponin I 0.024 (0-0.045) ng/ml Liver Function 11/22/19 Range/Units 16:22 Total Bilirubin 0.2 (0.2-1) mg/dl AST 35 (15-37) U/L ALT 29 (12-78) U/L Alkaline Phosphatase 140 H (45-117) U/L Albumin 3.1 L (3.4-5.0) gm/dl Diagnostic Findings CXR: IMPRESSION: 1. Cardiomegaly without overt pulmonary edema. 2. Subtle patchy asymmetric left lung base opacities suggest atelectasis versus pneumonitis. 3. Opacity of the medial right lung apex is likely secondary to object external to the patient. ECG Findings: + LBBB Change: no significant change Code Status & VTE Plan VTE Prophylaxis Plan VTE Prophylaxis will be ordered: Yes Supervising Physician Co-Signing Physician Notes Patient seen, examined and care coordinated with Treva Marcos 79-year-old woman with multiple comorbidities who presented with dry cough, shortness of breath and wheezing for 5 days Detailed history is as above Positive sick contacts No fevers, chills, sore throat, congestion Chest discomfort only with coughing Has been using nebulizer at home without relief Physical exam is as above. Chest x-ray as reported by Radiology 1. Cardiomegaly without overt pulmonary edema. 2. Subtle patchy asymmetric left lung base opacities suggest atelectasis versus pneumonitis. 3. Opacity of the medial right lung apex is likely secondary to object external to the patient. Labs WBC of 10 Hemoglobin of 9.4 INR of 1.9 VBG 7.36/32 Sodium of 133 Bicarb of 18 Creatinine of 2.12 Blood glucose of 419 Lactate of 3.3 Hydroxybutyrate of 1.99 Procalcitonin of 0.03 Negative for flu Patient is in COPD exacerbation We will continue neb albuterol-ipratropium 4 times daily for now, and albuterol as needed IV methylprednisolone every 8 hours IV doxycycline for now Elevated lactate No fevers, no leukocytosis, negative procal. This may be related to nebs both at home and ER Will give some IVF and monitor volume status Trend lactate Hyperglycemia Betahydroxybutyrate is normal Patient reports that blood glucose has been poorly controlled at home is been running in the 600s. Got 10 units of regular insulin in the ER Monitor glucose and optimize glycemic control. If needed may start insulin drip to control blood glucose MARIE on CKD Creatinine is 2.12 from 1.6 on 11/03/2019 Continue IV fluids for now 1 month following status Monitor creatinine Patient also has bicarb of 15 with anion gap of 9 Recheck and monitor Other plans as detailed by Treva Marcos Discussed patient with Water Mechanic who will continue to monitor patient once she gets to the floor from ER (1) Hyperglycemia due to type 2 diabetes mellitus Diabetes mellitus retirement insulin use: unspecified retirement insulin use status Qualified Code(s): E11.65 - Type 2 diabetes mellitus with hyperglycemia (2) CAD (coronary artery disease) Associated angina: with unspecified angina Coronary Disease-Associated Artery/Lesion type: [place] artery [place] vs. transplanted heart: [place] heart Qualified Code(s): I25.119 - Atherosclerotic heart disease of [place] coronary artery with unspecified angina pectoris
[2019-11-22 18:28] LABS: Influenza A virus by PCR Neg for Influ A (Neg); Influenza B virus by PCR Neg for Influ B (Neg)
[2019-11-22] MEDS ORDERED: SENNA 8.6 MG TAB PO PRN (18:57)
[2019-11-22] MEDS ORDERED: MAGNESIUM HYDROXIDE SUSP 30 ML UDC PO PRN (18:57)
[2019-11-22] MEDS ORDERED: LORazepam 0.5 MG TAB PO PRN (18:57)
[2019-11-22] MEDS ORDERED: MECLIZINE 12.5 MG TAB PO PRN (18:57)
[2019-11-22] MEDS ORDERED: NITROGLYCERIN SL 0.4 MG/TAB TAB SL PRN (18:57)
[2019-11-22] MEDS ORDERED: ACETAMINOPHEN 325 MG TAB PO PRN (18:57)
[2019-11-22] MEDS ORDERED: SIMETHICONE 80 MG CHEW PO PRN (18:57)
[2019-11-22] MEDS ORDERED: POLYETHYLENE (MIRALAX) 17 GM PACK PO PRN (18:57)
[2019-11-22] MEDS ORDERED: bisacodyL 10 MG SUPP PR PRN (18:57)
[2019-11-22] MEDS ORDERED: DICYCLOMINE HCL 10 MG CAP PO PRN (18:57)
[2019-11-22] MEDS ORDERED: SODIUM CHLORIDE 0.9% 1000ML 1,000 ML IV ONE (19:44)
[2019-11-22] MEDS ORDERED: MAGNESIUM SULFATE / D5W 1 GM/100 ML BAG IV STA (20:02)
[2019-11-22] MEDS ORDERED: SODIUM CHLORIDE 0.9% 500 ML IV SCH (20:02)
[2019-11-22] MEDS ORDERED: XOPENEX/ATROVENT 1.25mg/0.5MG NEB COMBO NEB SCH (20:02)
[2019-11-22] MEDS ORDERED: PHARMACY GLYCEMIC MGMT CONSULT PRN (20:19)
[2019-11-22] MEDS: BUDESONIDE 0.5 MG/2 ML VIAL (PULMICORT) INH SCH (20:40)
[2019-11-22] MEDS: MAGNESIUM SULFATE / D5W 1 GM/100 ML BAG IV SCH ×2 (20:50→22:06)
[2019-11-22] MEDS: MONTELUKAST SODIUM 10 MG TABLET PO SCH (20:51)
[2019-11-22] MEDS: METOPROLOL SUCC 25MG EXT REL TAB PO SCH (20:52)
[2019-11-22] MEDS: SERTRALINE HCL 50 MG TABLET PO SCH (20:52)
[2019-11-22] MEDS: DOCUSATE SODIUM 100 MG CAP PO SCH (20:53)
[2019-11-22] MEDS: WARFARIN SOD 5 MG TAB PO SCH (20:53)
[2019-11-22] MEDS: CETIRIZINE HCL 10 MG TABLET PO SCH (20:58)
[2019-11-22] MEDS ORDERED: INSULIN HUMAN NPH SC ONE (21:00)
[2019-11-22] MEDS ORDERED: GLUCOSE 10 TABS/TUBE PO PRN (21:00)
[2019-11-22] MEDS ORDERED: GABAPENTIN 800 MG TAB PO SCH (21:00)
[2019-11-22] MEDS ORDERED: MIRTAZAPINE SOLTAB 15 MG PO SCH (21:00)
[2019-11-22] MEDS ORDERED: CARBOHYDRATES FOR HYPOGLYCEMIA PO PRN (21:00)
[2019-11-22] MEDS ORDERED: GLUCAGON FOR INJ 1 MG VIAL IM PRN (21:00)
[2019-11-22] MEDS: PANTOprazole 40 MG TAB PO SCH (21:00)
[2019-11-22] MEDS ORDERED: DEXTROSE 50% 50 ML SYRINGE IV PRN (21:00)
[2019-11-22] MEDS ORDERED: TRAZODONE HCL 50 MG TAB PO SCH (21:00)
[2019-11-22] MEDS ORDERED: GLUCOSE 40% GEL 15 GM TUBE PO PRN (21:00)
[2019-11-22] MEDS ORDERED: ROPINIROLE HCL 1 MG TABLET PO SCH (21:00)
[2019-11-22] MEDS ORDERED: PHARMACY GLYCEMIC MGMT CONSULT STA (22:00)
[2019-11-22] MEDS: DOXYCYCLINE HYCLATE 100 MG in DEXTROSE 5% 100 ML IV SCH (22:06)
[2019-11-22] MEDS ORDERED: INSULIN HUMAN REGULAR PER UNIT 7 UNITS in SYRINGE 6.93 ML IV ONE (22:15)
[2019-11-22] MEDS: INSULIN ASPART 100 UNITS/ML 3 ML PEN SC SCH (22:18)
[2019-11-22] MEDS: LEVALBUTEROL 1.25MG/0.5ML NEB INH SCH (23:10)
[2019-11-22] MEDS: IPRATROPIUM BROMIDE NEB SOLN 0.02% 2.5 ML VIAL INH SCH (23:10)
[2019-11-22] MEDS ORDERED: HEPARIN 100 UNIT/ML 5ML FLUSH FLUSH PRN (23:40)
[2019-11-23] MEDS: LACTATED RINGER'S 1,000 ML IV SCH ×4 (00:19→16:50)
[2019-11-23] MEDS: INSULIN ASPART 100 UNITS/ML 3 ML PEN SC SCH ×7 (00:27→21:08)
[2019-11-23] MEDS ORDERED: methylPREDNISolone 40 MG in SYRINGE 0 ML IV SCH ×3 (02:00→09:00)
[2019-11-23] MEDS: IPRATROPIUM BROMIDE NEB SOLN 0.02% 2.5 ML VIAL INH SCH ×6 (03:05→23:09)
[2019-11-23] MEDS: LEVALBUTEROL 1.25MG/0.5ML NEB INH SCH ×6 (03:05→23:09)
[2019-11-23 04:50] LABS: BUN Creatinine Ratio 18.3 (10-20); Calcium 8.3 mg/dl (8.5-10.1); Creatinine Clr Calc Pharmacy 19.8 ml/min; Est GFR (African American) 26.5; Est GFR (Non-African American) 22.9; Potassium 4.7 mmol/L (3.5-5.1)
[2019-11-23] MEDS: guaiFENesin SUGAR FREE 100 MG/5 ML UDC PO PRN ×2 (04:52→10:28)
[2019-11-23] MEDS: BUDESONIDE 0.5 MG/2 ML VIAL (PULMICORT) INH SCH ×2 (07:19→20:52)
[2019-11-23] MEDS: CLOPIDOGREL BISULFATE 75 MG TAB PO SCH (07:45)
[2019-11-23] MEDS: MAGNESIUM OXIDE 400 MG TAB PO SCH (07:45)
[2019-11-23] MEDS: ATORVASTATIN 40 MG TAB PO SCH (07:45)
[2019-11-23] MEDS: METOPROLOL SUCC 25MG EXT REL TAB PO SCH ×2 (07:46→21:10)
[2019-11-23] MEDS: ISOSORBIDE MONO EXTENDED REL 30 MG TABCR PO SCH (07:46)
[2019-11-23] MEDS: LOSARTAN POTASSIUM 50 MG TAB PO SCH (07:46)
[2019-11-23] MEDS: dilTIAZem ER 120 MG CAPCR PO SCH (07:46)
[2019-11-23] MEDS: DOCUSATE SODIUM 100 MG CAP PO SCH ×2 (07:46→22:17)
[2019-11-23] MEDS: PANTOprazole 40 MG TAB PO SCH ×2 (07:47→22:18)
[2019-11-23] MEDS ORDERED: INSULIN HUMAN NPH SC SCH ×2 (08:00→17:00)
[2019-11-23] MEDS: DOXYCYCLINE HYCLATE 100 MG in DEXTROSE 5% 100 ML IV SCH ×2 (08:24→20:42)
--- NOTE | 2019-11-23 09:53 | Pharmacy Report ---
Glycemic Control Consultation - Date of Service November 23, 2019 - Scope Scope: Glycemic Pharmacist consulted by Treva Marcos PA-C on 11/22/19 for glycemic control and to write orders per [facility] inpatient glycemic control protocol - Objective Weight: 73.3 kg Accuchecks BSG (last 24hrs): 11/22/19 11/23/19 11/23/19 16:22 00:13 04:12 Glucose 419 H* 222 H POC Glucose 428 H* 11/23/19 07:35 Glucose POC Glucose 129 H Laboratory Data (last 24hrs): 11/22/19 11/23/19 16:22 04:12 Potassium 4.6 4.7 Carbon Dioxide 18 L 21 Anion Gap 9.0 4.0 Creatinine 2.12 H 2.02 H Est Cr Clr Drug Dosing 19.1 19.8 Beta-Hydroxybutyric Acd 1.99 - Recent Pertinent Medications Outpatient Anti-diabetic Regimen: * NPH 70 units QAM, 48 units with dinner * A1c = 9.5 % 08/17/19 Risk Factors for Insulin Resistance: * Steroids: Solu-medrol 60mg x 1 yesterday, then 40mg IV daily starting today * Infection: Doxycycline 100mg IV BID * Diet:Type 2 DM - Assessment & Plan Assessment & Plan: ASSESSMENT: * 79-year-old female from [facility] with a PMH of COPD, DM II on insulin, CAD, history of CVA, CKD 3, hypertension, IPMN, recurrent pancreatitis, admitted with COPD exacerbation. * Patient admitted with hyperglycemia, no NPH 12 am, given 70 units NPH per pharmacy last night plus 10+7units IV Regular insulin, plus correctional insulin (81 units total). * Blood sugar at goal 129mg/dl this morning. * Patient known to pharmacy glycemic service from previous admissions, also on steroids, will give similar parameters. * Patient only on NPH at home, will use this as basal coverage while inpatient and use CF/CR for prandial coverage and correctional insulin. * Will need to adjust insulin parameters as steroids are tapered down. * ADA & AACE recommend a goal blood sugar range 140-180 mg/dl for the majority of critically ill & non-critically ill patients. However, more stringent targets may be selected in individual cases. Will utilize more stringent goal of 110-140mg/dl based on patient age & comorbidities. Additionally, tighter glycemic control is warranted to facilitate wound/infection healing. PLAN FOR INPATIENT GLYCEMIC CONTROL: * Basal insulin * NPH 40 units with breakfast and dinner - titrate dose * Bolus insulin * NovoLog per scale ACHS or Q6hrs while NPO * Goal Range: Low 110 mg/dL - High 140 mg/dL * TIGHTEN Correction Factor: 8 mg/dL/unit * TIGHTEN Nutritional / Prandial insulin per carb ratio of 1 unit per 3 grams CHO consumed * Please note that the plan above was derived based on current level of insulin resistance and hospital stress. These recommendations are appropriate for inpatient admission only. Plan of care upon discharge will need to be reassessed to avoid potential outpatient hypo/hyperglycemia. Thank you.
[2019-11-23] MEDS: CHOLESTYRAMINE LIGHT 4 GM PKT PO SCH (10:26)
[2019-11-23] MEDS ORDERED: EPINEPHrine 2 MG in DEXTROSE 5% 250 ML IV STA ×2 (14:36→14:45)
[2019-11-23 15:00] LABS: Base Excess VBG -15.4 mEq/L; HCO3 VBG 19 mmol/L; PCO2 VBG 114 mmHg (38-50); PO2 VBG 37 mmHg; pH VBG 6.84 (7.36-7.41)
[2019-11-23] MEDS ORDERED: fentaNYL citrate 100 MCG/2 ML VIAL ONE ×2 (15:00→15:25)
[2019-11-23] MEDS ORDERED: MIDAZOLAM HCL 1 MG/ML 2ML VIAL ONE ×2 (15:01→15:24)
--- NOTE | 2019-11-23 15:10 | XRay Report ---
SINGLE VIEW CHEST CLINICAL HISTORY: Aspiration. FINDINGS: An AP, portable, supine chest radiograph is compared to study dated 11/22/2019 and correlat ed with chest CT dated 08/17/2019. The examination is degraded by portable technique and patient rotat ion. An endotracheal tube has been placed. The tip projects 3.5 cm above the marla. A right-sided central venous infusion port is unchanged in position. The heart is enlarged noting atherosclerotic c alcification of the thoracic aorta. There is pulmonary vascular congestion. Bilateral airspace opacit ies likely represent interstitial edema. The mitral annulus is densely calcified. Trace pleural effus ions are suspected. Atelectasis is noted at the lung bases. No pneumothorax is seen. The skeletal str uctures are osteopenic. The bony thorax is grossly intact. IMPRESSION: 1. Cardiomegaly with evidence of congestive failure 2. Bilateral perihilar airspace opacities likely represent interstitial edema. Correlate clinically f or evidence of superimposed pneumonia. 3. Small pleural effusions. 4. An endotracheal tube has been placed as detailed above. ACT 112: Negative or not required by law. Electronically signed by: Ramez Blanchard M.D. 11/23/2019 3:09 PM
[2019-11-23 15:16] LABS: Oxygen Saturation VBG < 60.0 %
--- NOTE | 2019-11-23 15:20 | Hospitalist Progress Note ---
Date of Service November 23, 2019 Assessment & Plan (1) COPD exacerbation: Patient is a 79 yr female from [facility] with a PMH of COPD, DM II on insulin, CAD, history of CVA, CKD 3, hypertension, IPMN, recurrent pancreatitis and other medical problems listed below who presents with shortness of breath and wheezing x5 days and was found to have COPD exacerbation. Acute Hypercarbic Respiratory Failure Acute COPD Exacerbation Acute Pulmonary Edema Aspiration Not on home Oxygen at baseline CXR:. Cardiomegaly with evidence of congestive failure. Bilateral perihilar airspace opacities likely represent interstitial edema. Correlate clinically for evidence of superimposed pneumonia. Small pleural effusions. An endotracheal tube has been placed as detailed above. Procalcitonin: 0.08 Influenza Screen: Negative Aspiration precautions Continue DuoNebs, IV Solu-Medrol, doxycycline, Pulmicort Appreciate Vault Mechanic Help Vent management as per ICU team (2) Elevated lactic acid level: Lactic Acidosis In setting of Hypoxia, CKD Received IV fluids (3) Acute kidney injury superimposed on chronic kidney disease: Baseline Cr ~ high 1s Received IV fluids Resume torsemide as able Monitor renal function Avoid Nephrotoxic agents as able (4) Hyperglycemia due to type 2 diabetes mellitus: A1c of 10.4 in Jul 2019 Beta hydroxybutyric acid normal, normal anion gap Glycemic Pharmacy consulted Continue Insulin therapy Monitor BGs (5) Paroxysmal atrial fibrillation: Continue diltiazem On Coumadin for anticoagulation Monitor INR: 1.9 (6) Diastolic CHF: Echocardiogram completed previous hospitalization LVEF 60-65%, mod aortic stenosis, grade I DD 07/27/19 and 07/12/19 Was on Torsemide 10 mg MWF Resume diuretics as able (7) History of CVA (cerebrovascular accident): Continue plavix and statin (8) CAD (coronary artery disease): H/O GAETANO x2 in 01/2019 Continue plavix, statin, metoprolol, losartan, imdur DVT Px: On Coumadin Code status: Full Code Subjective Patient is seen and examined this morning States SOB is better since admission Still has significant wheezing, cough Denies any chest pain, nausea, abd pain, dizziness Offers no other complaints Patient aspirated this afternoon and desaturated to low 70s. Patient later was unconscious and went into asystole. Constantine hernandez was called, ACLS protocol was followed and Patient was intubated. CXR showed congestion and interstitial edema. Patient's Son is updated of her condition. Review of Systems Review of Systems: All systems reviewed & are unremarkable except as noted in HPI & below Physical Exam Physical Exam: Physical Exam: Vitals signs as noted above General Appearance:Moderately built and nourished, chronic ill appearing Head: normocephalic, Atraumatic Eyes: normal inspection, EOMI Neck: supple, Trachea midline Respiratory/Chest: Decreased breath sounds, B/L rhonchi, wheezing Cardiovascular: S1, S2, systolic murmur Abdomen/GI:Soft, Non tender, Bowel sounds present Extremities/Musculoskelatal:normal inspection, no edema Neurologic/Psych:AAOX3, grossly no focal neurological deficits Skin: normal color, warm Results & Data Vital Signs (Past 12 Hours) Vital Signs Temp Pulse Resp BP Pulse Ox 11/23/19 14:12 120 H 30 H 77 L 11/23/19 11:00 36.7 C 91 H 22 137/67 96 11/23/19 10:46 90 20 98 11/23/19 07:44 36.6 C 74 18 133/75 98 11/23/19 07:19 68 20 98 11/23/19 03:14 36.4 C L 79 19 110/64 95 Laboratory Results Short CBC 11/22/19 Range/Units 15:43 WBC 10.66 (4.8-10.8) K/uL Hgb 10.4 L (12.0-16.0) g/dL Hct 31.1 L (37-47) % Plt Count 182 (130-400) K/uL BMP 11/22/19 11/23/19 16:22 04:12 Sodium 133 L 138 Potassium 4.6 4.7 Chloride 106 113 H Carbon Dioxide 18 L 21 BUN 36 H 37 H Creatinine 2.12 H 2.02 H Glucose 419 H* 222 H Calcium 8.3 L 8.3 L Cardiac Enzymes 11/22/19 Range/Units 16:22 Troponin I 0.024 (0-0.045) ng/ml Liver Function 11/22/19 Range/Units 16:22 Total Bilirubin 0.2 (0.2-1) mg/dl AST 35 (15-37) U/L ALT 29 (12-78) U/L Alkaline Phosphatase 140 H (45-117) U/L Albumin 3.1 L (3.4-5.0) gm/dl (1) Hyperglycemia due to type 2 diabetes mellitus Diabetes mellitus fpc insulin use: unspecified fpc insulin use status Qualified Code(s): E11.65 - Type 2 diabetes mellitus with hyperglycemia (2) CAD (coronary artery disease) Coronary Disease-Associated Artery/Lesion type: [place] artery [place] vs. transplanted heart: [place] heart Associated angina: with unspecified angina Qualified Code(s): I25.119 - Atherosclerotic heart disease of [place] coronary artery with unspecified angina pectoris
[2019-11-23] MEDS ORDERED: PROPOFOL IV EMULSION 10 MG/ML 100 ML VIAL IV ONE (15:25)
[2019-11-23] MEDS ORDERED: fentaNYL citrate 100 MCG/2 ML VIAL IV ONE (15:50)
[2019-11-23] MEDS ORDERED: MIDAZOLAM HCL 1 MG/ML 2ML VIAL IV ONE (15:51)
[2019-11-23] MEDS ORDERED: SEVERE STRESS LEVEL ONE (15:52)
[2019-11-23] MEDS ORDERED: MIDAZOLAM HCL 5 MG/ML VIAL IV STA (15:52)
[2019-11-23] MEDS ORDERED: DC ALL PREVIOUSLY ORDERED DIABETES MEDS ONE (15:52)
[2019-11-23] MEDS ORDERED: INSULIN PROTOCOL GOAL RANGE ONE (15:52)
[2019-11-23] MEDS ORDERED: INSULIN REGULAR 250 UNITS in SODIUM CHLORIDE 0.9% 247.5 ML IV SCH (16:00)
[2019-11-23] MEDS: MIDAZOLAM HCL 1 MG/ML 2ML VIAL IV PRN ×3 (16:00→22:18)
[2019-11-23] MEDS: WARFARIN SOD 5 MG TAB PO SCH (16:35)
[2019-11-23] MEDS ORDERED: NovoLIN-R BOLUS FROM BAG IV ONE (17:00)
[2019-11-23] MEDS ORDERED: propofoL 1,000 MG/100 ML VIAL IV SCH (17:00)
[2019-11-23] MEDS ORDERED: fentaNYL citrate 100 MCG/2 ML VIAL IV STA ×2 (17:41→18:17)
[2019-11-23] MEDS ORDERED: LACTATED RINGER'S 1,000 ML IV SCH (18:00)
[2019-11-23] MEDS ORDERED: LACTATED RINGER'S 500 ML IV ONE (18:08)
[2019-11-23 19:14] LABS: Appearance Urine Cloudy (Clear); Bacteria Urine Automated Negative (Negative); Bilirubin Urine Negative (Negative); Blood Urine Negative (Negative); Color Urine Yellow; Epithelial Cell Urine Auto >30 /lpf (0-5); Glucose Urine UA 2+ (Negative); Ketones Urine Negative (Negative); Leukocyte Esterase Urine Negative (Negative); Nitrite Urine Negative (Negative); Protein Urine 1+ (Negative); Specific Gravity Urine 1.019 (1.000-1.030); Urobilinogen Urine Negative (Negative)
[2019-11-23 20:30] VITALS: TEMP 97.9
[2019-11-23] MEDS: methylPREDNISolone 40 MG in SYRINGE 0 ML IV SCH (20:42)
[2019-11-23] MEDS ORDERED: fentaNYL citrate 100 MCG/2 ML VIAL IV PRN (20:43)
[2019-11-23] MEDS ORDERED: fentaNYL DRIP 1,250 MCG/250 ML BAG IV SCH (20:43)
[2019-11-23] MEDS: NORMOSOL-R 1,000 ML IV SCH (20:55)
[2019-11-23] MEDS ORDERED: TRAZODONE HCL 50 MG TAB PO SCH (21:00)
[2019-11-23] MEDS ORDERED: GABAPENTIN 800 MG TAB PO SCH (21:00)
[2019-11-23] MEDS ORDERED: ROPINIROLE HCL 1 MG TABLET PO SCH (21:00)
--- NOTE | 2019-11-23 21:15 | Critical Care Consultation ---
Date of Consultation November 23, 2019 Assessment & Plan (1) Acute kidney injury superimposed on chronic kidney disease: Reason critically ill: Angelica Kaplan is a 79 year old woman with progressive deterioration of health from multiple comorbidities who while hospitalized for COPD exacerbation had a cardiac arrest. Requiring unit for intubation and close hemodynamic monitoring. Neuro: INtubated and sedated Moving all four limbs and breathing over vent but with history of cardiac arrest for 15 minutes without shock from respiratory cause it is very possible we will encnounter some level of hypoxic brain injury as she recovers Respiratory: Hypoxic cardiac arrest, will support with intubation and high peep ventilation. Pulmonary edema on CXR and pink frothy sputum per ET tube. Will get repeat CXR and ABG in am Patient appeared to have aspirated and was recovering well from COPD exac erbation Cardiovascular Patient with ROSC now in sinus rhythm and maintaining pressures to MAP of around 70 Bolused 500 mL of LR for hypotension which patient appeared to respond to ECG showing no acute STEMI Patient's pressure has been quite variable, may require pressors will start levophed infusion if required for MAP less than 65 Cause of arrest likely hypoxia with subsequent bradycardia and asystole Will consider echo to assess heart function ID: Patient on doxycycline for COPD exacerbation GI: Protonix 40 mg BID Worry about perfusion to liver following arrest will trend daily CMP's Renal: Electrolytes all within normal ranges this morning Will recheck in AM and replete as necessary In this patient with existing renal disease and several minutes of cardiac arrest there is great concern about end organ damage including renal injury Will continue to trend CMP's and monitor urine output Strict I's and O's daily weights Endocrine: Patient with Type II DM Sugars this evening over 300 Started on insulin infusion Will continue to care for Ms. Kaplan and attempt to extubate her when stable. Extent of hypoxic injury to multiple organ systems unknown but we will monitor and address them as they are revealed. Patient's family will continue to aid in medical decision making while patient is unable. (2) COPD exacerbation: (3) Elevated lactic acid level: (4) Cardiac arrest: Supervising Physician Co-Signing Physician Notes Dr. Saenz was resident physician during care of patient. I separately evaluated patient for rodriguez portions of the history and the exam. I was present during the critical portion of medical decision making, and I discussed the case with the resident. I generally agree with the findings and plan. Initially responded to the patient as a CODE BLUE. History obtained from nursing staff report that the patient was feeling short of breath became hypoxic ultimately lost responsiveness following back into the bed from her semi- recumbent position and experienced a cardiac arrest. Upon my arrival CPR had been started, she was given ACLS medications, at least 2 rounds of epinephrine and was being bagged valve masked ventilated. There was obvious aspiration, I intubated the patient and after approximately 9 minutes of CPR we had return of spontaneous circulation. Patient was initially started on an epinephrine drip, stabilized and transferred to the ICU. We notified the patient's family, she does appear to be exhibiting signs of responsiveness, she did need additional fluid to support her blood pressure, however it is encouraging that we were able to wean the epinephrine rather quickly. Overall I am very concerned about the patient's long-term prognosis the clinical history is most consistent with respiratory arrest leading to cardiac arrest and she has significant COPD at baseline. When I discussed goals of care with the patient's granddaughter who shares power of pottery decoration designer with the patient's son they have had several discussions that she would not want heroic measures undertaken nor would want to live in a significantly incapacitated state attached to machines. The patient's granddaughter did state that until she has had an opportunity to discuss with additional family members we will continue aggressive treatment and consider the patient full code until additional family can arrive. Given the nature of this arrest am concerned that the patient's improvement is temporary and she will continue to enter a SIRS response with worsening renal function and may require dialysis for volume control as there were certainly aspects of pulmonary edema during the initial resuscitation efforts. Please see the CODE BLUE sheets for further details. I have personally spent 120 minutes of critical care time in the direct management of this patient. This is a life/limb threatening event. This includes time spent evaluating patient, direct bedside care, chart review, placing orders, interpretation of diagnostic studies, discussion with consultants, patient, and/or family members regarding treatment decisions, as well as other required patient management activities. This time is exclusive of all separately billable procedures, and teaching time and separate from and in addition to any other critical care service time. History of Present Illness Reason for Consultation: Cardiac Arrest Requesting Physician: Bud Pérez Attending Physician: Bud Pérez MD History of Present Illness Angelica Kaplan is a 79 year old woman with a past medical history of COPD, CAD, Stroke, DMII, CKD, HTN who was here for COPD exacerbation. She was stable on room air earler today when around 3 pm she had an aspiration event that caused her to become hypoxic. While hospitalist was present in room patient became unresponsive and eventually pulseless. Code blue was called. We responded about two minutes after code blue was called and compressions were already under way. when patient was hooked up to monitor initial rhythm was pulseless bradycardia, on second rhythm check patient was in asystole. Patient was intubated and CPR continued for a total of about 15 minutes from time of initial code blue call before ROSC was achieved. Blood pressure was adequate, pulse ox was 96 and a chest XR was performed prior to moving down to the unit which showed melvi pulmonary edema. Patient was brought down to the unit and placed on high peep. Family was contacted who say that she would want to be a full code if there was still a fair chance she might walk out of the hospital. A line placed and patient bolused 1 L fluid for hypotension which quickly resolved. Patient is agitated on vent and requiring further sedation which drops her blood pressure. Allergies Allergy/AdvReac Type Severity Reaction Status Date / Time gadobutrol [From Gadavist] Allergy Severe Anaphylaxis Verified 11/22/19 16:10 Gadolinium-Containing Allergy Severe NAUSEA,VOMITING, Verified 11/22/19 16:10 Contrast Medi SWELLING/EDEMA AROUND EYES, WHEEZING Iodinated Contrast Media Allergy Severe RASH TO Verified 11/22/19 16:10 IVP DYE,NAUSEA, FAINTING, COUGHING, GAGGING, HEADACH Sulfa (Sulfonamide Allergy Severe HIVES, Verified 11/22/19 16:10 Antibiotics) FACIAL AND ARM SWELLING cerivastatin Allergy Intermediate HIVES Verified 11/22/19 16:10 codeine Allergy Intermediate "PRICKLY Verified 11/22/19 16:10 RASH" hydroxyzine Allergy Intermediate N/V Verified 11/22/19 16:10 latex Allergy Intermediate DERMATITIS-PT Verified 11/22/19 16:10 TOLERATED A LATEX CATHETER 03/26/08 prednisone Allergy Intermediate elevates Verified 11/22/19 16:10 blood sugar Bactrim Allergy Mild RASH Verified 04/29/18 14:40 diphenhydramine Allergy Mild RASH; Verified 11/04/19 07:27 SLEEPINESS WITH "PHARBEDRYL" loratadine Allergy Mild HIVES Verified 11/04/19 07:27 sulfamethoxazole Allergy Mild RASH Verified 11/04/19 07:27 trimethoprim Allergy Mild RASH Verified 11/04/19 07:27 alprazolam AdvReac Intermediate "SLEEPY Verified 11/04/19 07:27 STUPER" metformin AdvReac Intermediate DIARRHEA Verified 11/04/19 07:27 tetanus toxoid, adsorbed AdvReac Intermediate SWELLING Verified 11/04/19 07:27 AT INJECTION SITE morphine AdvReac Mild VOMITING Verified 11/04/19 07:27 simvastatin AdvReac Mild COUGH, Verified 11/04/19 07:27 "DISCOMFORT" Home Medications Home Medications Medication Instructions Recorded Confirmed Type lorazepam [Ativan] 0.5 mg PO Q6 PRN 08/24/18 11/22/19 History ondansetron HCl [Zofran] 4 mg PO Q8H PRN 08/24/18 11/22/19 History mirtazapine 45 mg PO HS 01/26/19 11/22/19 History ropinirole 1 mg PO HS 01/26/19 11/22/19 History atorvastatin 40 mg PO QAM #30 tab 01/28/19 11/22/19 Rx clopidogrel 75 mg PO QAM #30 tab 01/28/19 11/22/19 Rx isosorbide mononitrate 30 mg PO QAM #30 tab 01/28/19 11/22/19 Rx nitroglycerin [Nitrostat] 0.4 mg SUBLINGUAL PRN PRN #30 tab 01/28/19 11/22/19 Rx magnesium oxide 400 mg PO QAM 07/11/19 11/22/19 History cholestyramine-aspartame 4 g PO QAM 08/16/19 11/22/19 History losartan 100 mg PO QAM 08/16/19 11/22/19 History simethicone 80 mg PO Q6H PRN 08/16/19 11/22/19 History Novolin N NPH U-100 Insulin 70 unit SUBCUT QAM 10/26/19 11/22/19 History acetaminophen 650 mg PO Q4H PRN 10/26/19 11/22/19 History bisacodyl 10 mg VA DAILY PRN 10/26/19 11/22/19 History budesonide 0.5 mg INHALATION BID 10/26/19 11/22/19 History cetirizine 5 mg PO QPM 10/26/19 11/22/19 History dicyclomine 10 mg PO TID PRN 10/26/19 11/22/19 History diltiazem HCl 120 mg PO QAM 10/26/19 11/22/19 History docusate sodium 100 mg PO BID 10/26/19 11/22/19 History gabapentin 800 mg PO HS 10/26/19 11/22/19 History magnesium hydroxide [Milk of 30 ml PO DAILY PRN 10/26/19 11/22/19 History Magnesia] meclizine 12.5 mg PO Q8H PRN 10/26/19 11/22/19 History metoprolol succinate 25 mg PO BID 10/26/19 11/22/19 History montelukast 10 mg PO HS 10/26/19 11/22/19 History pantoprazole 40 mg PO BID 10/26/19 11/22/19 History polyethylene glycol 3350 17 g PO DAILY PRN 10/26/19 11/22/19 History sennosides [senna] 8.6 mg PO DAILY PRN 10/26/19 11/22/19 History sertraline 25 mg PO QPM 10/26/19 11/22/19 History torsemide 10 mg PO 3XWK 10/26/19 11/22/19 History trazodone 50 mg PO HS 10/27/19 11/22/19 History guaifenesin 100 mg PO Q6H PRN 11/22/19 11/22/19 History insulin NPH isoph U-100 human 48 unit SUBCUT .QDINNER 11/22/19 11/22/19 History [Novolin N NPH U-100 Insulin] warfarin [Coumadin] 5 mg PO DAILY 11/22/19 11/22/19 History Patient History Medical History (Updated 11/24/19 @ 12:57 by JOE Cross) Anxiety (Chronic) Aortic stenosis (Chronic) moderate Cerebrovascular disease (Chronic) "history stroke and TIA" L sided weakness. Chronic pancreatitis (Chronic) CKD (chronic kidney disease), stage III (Chronic) F/U PCP COPD (chronic obstructive pulmonary disease) (Chronic) Depression (Chronic) Diabetes mellitus, type II (Chronic) poorly controlled Dyslipidemia (Chronic) Fatty liver (Chronic) Gastroparesis (Chronic) GERD (gastroesophageal reflux disease) Giant cell arteritis (Resolved) Goals of care, counseling/discussion HTN (hypertension) (Chronic) Left bundle branch block Non-STEMI (non-ST elevated myocardial infarction) 01/2019 Osteoarthritis (Chronic) Pancreatic cyst (Chronic) Pancreatic divisum (Chronic) Pancreatitis (Chronic) Peripheral neuropathy (Chronic) RLS (restless legs syndrome) (Chronic) Seasonal allergies (Chronic) Sleep apnea (Chronic) PT DENIES/NO DEVICE Valvular heart disease Surgical History History of bilateral tubal ligation (Resolved) History of cataract surgery (Chronic) both eyes History of ERCP (Resolved) x3 with stents. ERCP 04/30/18. MAC 3, grade 2 view. 7.0 ETT placed. No issues. S/P cardiac catheterization (Resolved) 01/2019 [facility] X 2-TOTAL 2 STENTS 04/2019 non obstructive disease Family History Daughter No problems noted. Father Family history of diabetes mellitus Family/Other Family history of diabetes mellitus Mother Family history of diabetes mellitus Grandfather Family history of diabetes mellitus Grandmother Family history of diabetes mellitus Social History Preferred Language: Greenlandic Communication Ability: Effective Professional Advisor Required: No Beliefs That Will Affect Care: None marital status: / Current Living Situation: [facility] Current Living Situation Comment: [place] Other Information That Helps Us Care for You: No Feels Safe at Home: Yes Safety Concerns: Feels Safe At This Time Smoking Status: Former smoker Second Hand Exposure: No ; Hx Alcohol Use: Yes Alcohol type: beer Hx Substance Use: No Review of Systems Review of Systems: Unobtainable due to endotracheal tube Physical Exam Physical Exam: Constitutional: Frail appearing 79 year old woman lying in bed ET tube in place, agitated Eyes: Pupils equal round and reactive to light Respiratory: ET tube in place, agitated, breathing over vent appears to be trying to speak Cardiovascular: Regular rate and rhythm, no murmurs rubs skips or gallops, A line in place on right radial artery GI: Abdomen soft Neuro: Moving all four extremities, appears to be trying to speak : Robles catheter in place Results & Data Vital Signs (Past 12 Hours) Vital Signs Temp Pulse Pulse Resp BP BP Pulse Ox 11/23/19 21:00 91 H 95 11/23/19 20:33 75 11/23/19 20:30 76 99 11/23/19 20:13 77 73/41 L 97 11/23/19 20:00 36.6 C 87 97 11/23/19 19:35 75 66/43 L 98 11/23/19 19:30 74 97 11/23/19 19:10 93 H 124/96 94 11/23/19 19:00 73 95 11/23/19 18:18 78 124/61 95 11/23/19 18:16 89 97/67 L 91 11/23/19 18:05 83 100/55 L 94 11/23/19 18:00 80 83/47 L 95 11/23/19 17:18 85 77/51 L 95 11/23/19 16:42 91 H 106/63 88 L 11/23/19 16:32 88 111/53 L 91 11/23/19 16:22 96 H 136/69 87 L 11/23/19 16:11 88 100/61 91 11/23/19 16:02 88 104/42 L 95 11/23/19 16:00 88 93 11/23/19 15:52 93 H 18 110/71 91 11/23/19 15:50 86 25 H 93 11/23/19 15:45 91 H 19 93 11/23/19 15:41 91 H 17 88/55 L 95 11/23/19 15:32 94 H 13 105/53 L 94 11/23/19 15:30 98 H 16 95 11/23/19 15:22 102 H 12 146/126 H 98 11/23/19 15:16 103 H 19 134/65 99 11/23/19 15:11 104 H 15 118/81 99 11/23/19 15:06 108 H 19 97/73 L 100 11/23/19 15:05 111 H 22 166/73 H 100 11/23/19 15:01 111 H 99 11/23/19 14:12 120 H 30 H 77 L 11/23/19 11:00 36.7 C 91 H 22 137/67 96 11/23/19 10:46 90 20 98 Resident Activity Tracking Resident Involvement: Resident Care Provided Care Provided: Adult Hospital Medicine
[2019-11-23] MEDS: CETIRIZINE HCL 10 MG TABLET PO SCH (22:18)
[2019-11-23] MEDS: SERTRALINE HCL 50 MG TABLET PO SCH (22:18)
[2019-11-23] MEDS: MIRTAZAPINE SOLTAB 15 MG PO SCH (22:19)
[2019-11-23] MEDS: MONTELUKAST SODIUM 10 MG TABLET PO SCH (22:19)
[2019-11-24] MEDS: MIDAZOLAM HCL 1 MG/ML 2ML VIAL IV PRN ×3 (00:01→03:52)
[2019-11-24 00:52] LABS: BUN Creatinine Ratio 20.5 (10-20); Calcium 8.1 mg/dl (8.5-10.1); Creatinine Clr Calc Pharmacy 19.7 ml/min; Est GFR (African American) 25.7; Est GFR (Non-African American) 22.2; Magnesium 2.2 mg/dl (1.8-2.4); Potassium 4.7 mmol/L (3.5-5.1)
[2019-11-24] MEDS: NORMOSOL-R 1,000 ML IV SCH (03:51)
[2019-11-24] MEDS: IPRATROPIUM BROMIDE NEB SOLN 0.02% 2.5 ML VIAL INH SCH ×2 (04:16→07:09)
[2019-11-24] MEDS: LEVALBUTEROL 1.25MG/0.5ML NEB INH SCH ×2 (04:17→07:09)
[2019-11-24 04:28] LABS: Hematocrit (blood only) 24.7 % (37-47); Hemoglobin 8.2 g/dL (12.0-16.0); Mean Corpuscular Hgb Conc 33.2 g/dL (32-36); Mean Corpuscular Volume 81.3 fL (80-100); Mean Platelet Volume 9.3 fL (7.4-10.4); Platelet Count 150 K/uL (130-400); RDW Coefficient of Variation 16.5 % (11.5-14.5); RDW Standard Deviation 49.1 fL (36.4-46.3); Red Blood Count 3.04 M/uL (4.2-5.4); White Blood Count 12.65 K/uL (4.8-10.8)
[2019-11-24 04:46] LABS: Alanine Aminotransferase 67 U/L (12-78); Albumin Level 2.1 gm/dl (3.4-5.0); Aspartate Aminotransferase 101 U/L (15-37); BUN Creatinine Ratio 19.1 (10-20); Bilirubin Direct < 0.1 mg/dl (0-0.2); Blood Urea Nitrogen 42 mg/dl (7-18); Calcium 7.9 mg/dl (8.5-10.1); Carbon Dioxide 24 mmol/L (21-32); Chloride 115 mmol/L (98-107); Creatinine Clr Calc Pharmacy 18.7 ml/min; Est GFR (African American) 24.2; Est GFR (Non-African American) 20.9; Glucose 153 mg/dl (70-99); Magnesium 2.2 mg/dl (1.8-2.4); Potassium 4.6 mmol/L (3.5-5.1); Sodium 142 mmol/L (136-145)
[2019-11-24 04:48] LABS: INR 3.5 (0.9-1.1); Prothrombin Time 33.1 Seconds (9.0-12.0)
[2019-11-24 04:55] LABS: Alkaline Phosphatase 103 U/L (45-117); Bilirubin,Total 0.2 mg/dl (0.2-1); Total Protein 5.3 gm/dl (6.4-8.2)
[2019-11-24 06:01] LABS: iSTAT Arterial Blood Gas HCO3 20 meg/L (19-24); iSTAT Arterial Blood Gas pCO2 36 mmHg (35-46); iSTAT Arterial Blood Gas pH 7.35 (7.35-7.45); iSTAT Arterial Blood Gas pO2 61 mmHg (80-95); iSTAT Carbon Dioxide 21 mEq/l (24-31); iSTAT FiO2 28 %; iSTAT Site Art Line
[2019-11-24 06:12] LABS: Estimated Average Glucose 229 mg/dl; Hemoglobin A1C 9.6 % (4.5-5.6)
--- NOTE | 2019-11-24 06:20 | Critical Care Progress Note ---
Date of Service November 24, 2019 Assessment & Plan (1) Acute kidney injury superimposed on chronic kidney disease: Reason critically ill: Angelica Kaplan is a 79 year old woman with progressive deterioration of health from multiple comorbidities who while hospitalized for COPD exacerbation had a cardiac arrest. Patient was able to be extubated today. Unfortunately patient continued having difficulty breathing, labwork showed a worsening renal function, and patient subsequently developed substernal chest pain. Patient and family made decision to transition to comfort care and morphine drip was started to relieve pain. Patient still awake alert and conversive to family and will be transferred up to fourth floor. Bipap still in place, will continue with BiPAP as patient and family request it. (2) COPD exacerbation: (3) Elevated lactic acid level: (4) Cardiac arrest: Supervising Physician Co-Signing Physician Notes Dr. Saenz was resident physician during care of patient. I separately evaluated patient for rodriguez portions of the history and the exam. I was present during the critical portion of medical decision making, and I discussed the case with the resident. I generally agree with the findings and plan. During this morning's evaluation the patient was able to follow complex commands had a RSBI less than 50, was on minimal vent settings. I reviewed her chest x- ray, the increased pulmonary vascular markings were mildly concerning so I felt the patient warranted a trial on a T-piece prior to extubation to ensure there was no rebound pulmonary edema. After approximately 20 to 30 minutes of a T- piece trial the patient's respiratory rate was still reasonable and she was tolerating her oxygen saturations so we proceeded with extubation. Immediately after extubation the patient was exhibiting some signs of stridor, we started a racemic epinephrine. She also had noisy breath sounds, I feel they are more stridorous than indicative of wheezing from intrinsic lung disease. Accordingly was started the patient on positive pressure noninvasive ventilation to help overcome any upper airway edema and allow the patient to participate in medical decision making. Shortly after extubation the patient's power of united [place] attorney, granddaughter and son arrived and we discussed treatment options. The patient is described is fiercely independent and since December 2018 she has had approximately 11 hospitalizations and has had significant functional decline. A large portion of her family does not live locally and with the functional decline and with the family is assuming is a neuro cognitive decline the patient was recently with additional family for the [place] holiday. It was noted at that time that the patient was extremely dyspneic and deconditioned. When the patient's son broug ht his mother to her personal care residence he felt she was not safe there and was under the impression that she had been downplaying the extent of her decline. This was confirmed by additional family friends. Both the patient's granddaughter and son are in agreement that the patient is fiercely independent and the fact that she is no longer living in her private residence has greatly impacted her motivation. Further they believe it is obvious that the patient cannot continue to live in a personal care situation as that is not providing enough support for her to live safely as well as consistently take her medications and the living situation would likely necessitate placement to a fdc facility. Please refer to palliative care's documentation, they were all able to participate in a goals of care discussion with the patient and all are in agreement that we will transition to total comfort measures and not proceed with any form of reintubation. We will continue noninvasive ventilation until additional family members arrive at bedside at which point we will proceed with total comfort. Accordingly the patient is stable for downgrade out of the ICU. Subjective Ms. Angelica Kaplan was able to be extubated this morning and had some stridor post extubation. She developed more and more trouble breathing and appeared to coarse rales on physical exam. Renal function continued to deteriorate and Patient and family made the decision to make patient DNR/DNI and transition to comfort care. She is alert and talking post intubation on BiPAP. Review of Systems Review of Systems: All systems reviewed & are unremarkable except as noted in HPI & below Physical Exam Physical Exam: Constitutional: Frail appearing 79 year old woman lying in bed ET tube in place, agitated Eyes: Pupils equal round and reactive to light Respiratory: ET tube in place, agitated, breathing over vent appears to be trying to speak Cardiovascular: Regular rate and rhythm, no murmurs rubs skips or gallops, A line in place on right radial artery GI: Abdomen soft Neuro: Moving all four extremities, appears to be trying to speak : Robles catheter in place Results & Data Vital Signs (Past 12 Hours) Vital Signs Temp Pulse Resp BP Pulse Ox 11/24/19 06:00 83 90 11/24/19 05:30 84 93 11/24/19 05:14 92 H 135/85 92 11/24/19 05:10 75 19 91 11/24/19 05:00 70 93 11/24/19 04:30 81 90 11/24/19 04:13 139 H 87/45 L 95 11/24/19 04:00 66 95 11/24/19 03:30 72 95 11/24/19 03:13 72 126/63 96 11/24/19 03:00 66 96 11/24/19 02:30 66 96 11/24/19 02:13 67 95/47 L 96 11/24/19 02:00 74 94 11/24/19 01:52 78 23 92 11/24/19 01:30 77 95 11/24/19 01:14 80 93 11/24/19 01:13 81 132/68 93 11/24/19 01:00 68 98 11/24/19 00:30 72 98 11/24/19 00:13 73 109/53 L 98 11/24/19 00:00 73 97 11/23/19 23:36 72 11/23/19 23:30 74 98 11/23/19 23:21 72 20 98 11/23/19 23:00 71 99 11/23/19 22:30 78 97 11/23/19 22:13 78 93/48 L 97 11/23/19 22:00 89 92 11/23/19 21:30 92 H 97 11/23/19 21:00 91 H 95 11/23/19 20:35 76 20 100 11/23/19 20:33 75 11/23/19 20:30 76 99 11/23/19 20:13 77 73/41 L 97 11/23/19 20:00 36.6 C 87 97 11/23/19 19:35 75 66/43 L 98 11/23/19 19:30 74 97 11/23/19 19:10 93 H 124/96 94 11/23/19 19:00 73 95 Resident Activity Tracking Resident Involvement: Resident Care Provided Care Provided: Adult Hospital Medicine
--- NOTE | 2019-11-24 06:53 | XRay Report ---
XR chest 1V portable HISTORY: 79 years-old Female f/u follow-up study in a patient with acute respiratory failure COMPARISON: Chest radiograph 11/23/2019 TECHNIQUE: Portable AP view of the chest FINDINGS: Cardiac silhouette is enlarged, unchanged. Endotracheal tube overlies the midline, 1.5 cm superior to the marla. Stable positioning of right IJ Lvxkfu-i-[id number] catheter. Status post placement of an enter ic tube, distal tip projecting inferiorly outside the [id number] within the expected location of t he gastric lumen. Cholecystectomy. No pneumothorax. Mild blunting of the costophrenic angles may refl ect trace pleural effusions. Pulmonary vascular congestion with bilateral interstitial coarsening per sists. There is mildly improved aeration of the right lung. Left perihilar and left basilar consolida tive opacities have progressively worsened. Degenerative changes of the shoulders and spine. IMPRESSION: 1. Endotracheal tube overlies the midline, 1.5 cm superior to the marla. 2. Cardiomegaly with persistent pulmonary edema pattern. There is mildly improved aeration of the rig ht lung. 3. Hazy left perihilar and left basilar consolidative opacities have slightly worsened in the interva l. 4. Trace pleural effusions. ACT 112: Negative or not required by law. The above report was generated using voice recognition software. It may contain grammatical, syntax o r spelling errors. Electronically signed by: Rob Juarez M.D. 11/24/2019 6:51 AM
[2019-11-24] MEDS: BUDESONIDE 0.5 MG/2 ML VIAL (PULMICORT) INH SCH (07:09)
[2019-11-24] MEDS: INSULIN ASPART 100 UNITS/ML 3 ML PEN SC SCH ×2 (07:28→11:49)
[2019-11-24] MEDS: methylPREDNISolone 40 MG in SYRINGE 0 ML IV SCH (08:16)
[2019-11-24] MEDS: DOXYCYCLINE HYCLATE 100 MG in DEXTROSE 5% 100 ML IV SCH (08:17)
[2019-11-24] MEDS: ATORVASTATIN 40 MG TAB PO SCH (08:18)
[2019-11-24] MEDS: MAGNESIUM OXIDE 400 MG TAB PO SCH (08:18)
[2019-11-24] MEDS ORDERED: RACEPINEPHRINE 2.25% NEBU SOLN 0.5 ML VIAL NEB STA (09:13)
[2019-11-24] MEDS ORDERED: dexAMETHasone 6 MG in SYRINGE 0 ML IV ONE (09:29)
[2019-11-24] MEDS ORDERED: RAPID SEQUENCE INDUCTION BAG ONE (09:30)
[2019-11-24] MEDS: dilTIAZem ER 120 MG CAPCR PO SCH (10:45)
[2019-11-24] MEDS: CLOPIDOGREL BISULFATE 75 MG TAB PO SCH (10:45)
[2019-11-24] MEDS: METOPROLOL SUCC 25MG EXT REL TAB PO SCH (10:45)
[2019-11-24] MEDS: PANTOprazole 40 MG TAB PO SCH (10:45)
[2019-11-24] MEDS: LOSARTAN POTASSIUM 50 MG TAB PO SCH (10:45)
[2019-11-24] MEDS: CHOLESTYRAMINE LIGHT 4 GM PKT PO SCH (10:45)
[2019-11-24] MEDS: ISOSORBIDE MONO EXTENDED REL 30 MG TABCR PO SCH (10:45)
[2019-11-24] MEDS: DOCUSATE SODIUM 100 MG CAP PO SCH (10:45)
[2019-11-24] MEDS ORDERED: Nursing to Pharmacy Communication ONE ×2 (11:52→12:28)
[2019-11-24] MEDS ORDERED: NITROGLYCERIN 2% OINTMENT 30GM TUBE EXT STA ×2 (12:01→12:35)
[2019-11-24 12:05] VITALS: BP 187/109
[2019-11-24] MEDS ORDERED: THIAMINE HCL 100 MG TAB PO ONE (12:15)
[2019-11-24] MEDS ORDERED: THIAMINE HCL 200 MG in SODIUM CHLORIDE 0.9% 50 ML IV ONE (12:30)
[2019-11-24] MEDS ORDERED: NITROGLYCERIN SL 0.4 MG/TAB TAB SL STA (12:35)
[2019-11-24 12:41] LABS: Albumin Level 2.4 gm/dl (3.4-5.0); BUN Creatinine Ratio 21.1 (10-20); Creatinine Clr Calc Pharmacy 20.3 ml/min; Est GFR (African American) 25.9; Est GFR (Non-African American) 22.3; Potassium 4.8 mmol/L (3.5-5.1)
[2019-11-24 12:44] LABS: Albumin Globulin Ratio 0.7 (0.9-2); Bilirubin,Total 0.3 mg/dl (0.2-1); Globulin 3.4 gm/dl (2.5-4.0); Total Protein 5.8 gm/dl (6.4-8.2)
--- NOTE | 2019-11-24 12:57 | Palliative Care Consultation ---
Date of Consultation November 24, 2019 Assessment & Plan (1) Goals of care, counseling/discussion: This is a 79 year old female who presented to the [facility] with SOB and wheezing x 5 days from a local SNF. Upon arrival, she had an aspiration event, causing hypoxia and unfortunately, unresponsiveness which led to a cardiac arrest. The patient was resuscitated after 15 minutes with ROSC. Additional PMH includes: COPD, CAD, Stroke, DMII, CKD, and HTN. The patient was appearing to marked improved this morning and based on her ABG, although had a low PaO2 of 61, otherwise was compensated, the patient was extubated. Unfortunately, she had continued difficulty breathing, has been placed on maximum BiPAP support, has worsening renal function and started to have substernal chest pain. Palliative Care was consulted to address goals of care regarding code status and wishes regarding reintubation. Please see A/P for additional details. -Initially when I went to the ICU, Dr. Zazueta was speaking to family in the hallway, including grand-daughter Marlin and the patients son in law, and another grandson. I joined the conversation and he continued to express how the patient is actively SOB with rapidly worsening CXR, with increased distress including tachycardia, tachypnea and restlessness. -Ultimately, the decision will need to be made regarding if the patient will be reintubated. Fortunately, the patient is currently awake on Bipap and currently able to participate in the conversation. -The family expressed tearfully that they anticipate that she will NOT want reintubated and are planning to support that decision. -Myself and Marlin, son in law (Both granddaughter Marlin and son in law share POA) and grandson returned to room 107 where the patient was increasingly SOB. She opened her eyes and I presented her current options including being intubated to see how she reponds, knowing based on discussion with Dr. Zazueta, it is unlikely that she will be removed from the ventilator and likely require a tracheostomy for further weaning attempt or transitioning to comfort measures and treating her symptoms. I did state frankly that it is anticipated that if she transitions to comfort and receives morphine that she will likely pass away within a few hours to a few days. Patient changed to DNR/DNI. -The patient was able to fully converse through the BiPAP mask and clearly looked at her family and said "I am ready and am so uncomfortable". She did verbalize again knowing that she will with continued morphine. -There is one son that has not seen his mother in 15 years who arrives tonight at 630 PM. The family and patient would like to discontinue ALL blood work, vital sign monitoring, and non-essential medications that do not focus on comfort. This, again, was confirmed by the patient and with family members. -For now, the patient and family would like to continue with the BiPAP mask until another son and daughter arrive. From here, they will decide when they are ready to take the BiPAP mask off. -Initially, I ordered Morphine IV Q2 PRN; however, the patients SOB worsened rapidly and I discussed a Morphine drip with the family and patient and proceeded with such after their agreement. Atropine gtts and Ativan ordered as well PRN. -Multiple questions asked regarding life expectancy. Discussed at length how we will need to treat her symptoms and will have a better understanding regarding timeframe of her life once we see how she responds to the comfort medications. -Comfort cart ordered and hospitalist and pharmacy technician program director updated. -Anticipated hours to days of life and do not anticipate her leaving the hospital. Currently not a GIP candidate. -PPS: 10% (2) Cardiac arrest: (3) Acute kidney injury superimposed on chronic kidney disease: (4) COPD exacerbation: (5) Atrial fibrillation with RVR: History of Present Illness Reason for Consultation: Goals of Care Requesting Physician: Dr. Zazueta Attending Physician: Bud Pérez MD Allergies Allergy/AdvReac Type Severity Reaction Status Date / Time gadobutrol [From Gadavist] Allergy Severe Anaphylaxis Verified 11/22/19 16:10 Gadolinium-Containing Allergy Severe NAUSEA,VOMITING, Verified 11/22/19 16:10 Contrast Medi SWELLING/EDEMA AROUND EYES, WHEEZING Iodinated Contrast Media Allergy Severe RASH TO Verified 11/22/19 16:10 IVP DYE,NAUSEA, FAINTING, COUGHING, GAGGING, HEADACH Sulfa (Sulfonamide Allergy Severe HIVES, Verified 11/22/19 16:10 Antibiotics) FACIAL AND ARM SWELLING cerivastatin Allergy Intermediate HIVES Verified 11/22/19 16:10 codeine Allergy Intermediate "PRICKLY Verified 11/22/19 16:10 RASH" hydroxyzine Allergy Intermediate N/V Verified 11/22/19 16:10 latex Allergy Intermediate DERMATITIS-PT Verified 11/22/19 16:10 TOLERATED A LATEX CATHETER 03/26/08 prednisone Allergy Intermediate elevates Verified 11/22/19 16:10 blood sugar Bactrim Allergy Mild RASH Verified 04/29/18 14:40 diphenhydramine Allergy Mild RASH; Verified 11/04/19 07:27 SLEEPINESS WITH "PHARBEDRYL" loratadine Allergy Mild HIVES Verified 11/04/19 07:27 sulfamethoxazole Allergy Mild RASH Verified 11/04/19 07:27 trimethoprim Allergy Mild RASH Verified 11/04/19 07:27 alprazolam AdvReac Intermediate "SLEEPY Verified 11/04/19 07:27 STUPER" metformin AdvReac Intermediate DIARRHEA Verified 11/04/19 07:27 tetanus toxoid, adsorbed AdvReac Intermediate SWELLING Verified 11/04/19 07:27 AT INJECTION SITE morphine AdvReac Mild VOMITING Verified 11/04/19 07:27 simvastatin AdvReac Mild COUGH, Verified 11/04/19 07:27 "DISCOMFORT" Home Medications Home Medications Medication Instructions Recorded Confirmed Type lorazepam [Ativan] 0.5 mg PO Q6 PRN 08/24/18 11/22/19 History ondansetron HCl [Zofran] 4 mg PO Q8H PRN 08/24/18 11/22/19 History mirtazapine 45 mg PO HS 01/26/19 11/22/19 History ropinirole 1 mg PO HS 01/26/19 11/22/19 History atorvastatin 40 mg PO QAM #30 tab 01/28/19 11/22/19 Rx clopidogrel 75 mg PO QAM #30 tab 01/28/19 11/22/19 Rx isosorbide mononitrate 30 mg PO QAM #30 tab 01/28/19 11/22/19 Rx nitroglycerin [Nitrostat] 0.4 mg SUBLINGUAL PRN PRN #30 tab 01/28/19 11/22/19 Rx magnesium oxide 400 mg PO QAM 07/11/19 11/22/19 History cholestyramine-aspartame 4 g PO QAM 08/16/19 11/22/19 History losartan 100 mg PO QAM 08/16/19 11/22/19 History simethicone 80 mg PO Q6H PRN 08/16/19 11/22/19 History Novolin N NPH U-100 Insulin 70 unit SUBCUT QAM 10/26/19 11/22/19 History acetaminophen 650 mg PO Q4H PRN 10/26/19 11/22/19 History bisacodyl 10 mg MO DAILY PRN 10/26/19 11/22/19 History budesonide 0.5 mg INHALATION BID 10/26/19 11/22/19 History cetirizine 5 mg PO QPM 10/26/19 11/22/19 History dicyclomine 10 mg PO TID PRN 10/26/19 11/22/19 History diltiazem HCl 120 mg PO QAM 10/26/19 11/22/19 History docusate sodium 100 mg PO BID 10/26/19 11/22/19 History gabapentin 800 mg PO HS 10/26/19 11/22/19 History magnesium hydroxide [Milk of 30 ml PO DAILY PRN 10/26/19 11/22/19 History Magnesia] meclizine 12.5 mg PO Q8H PRN 10/26/19 11/22/19 History metoprolol succinate 25 mg PO BID 10/26/19 11/22/19 History montelukast 10 mg PO HS 10/26/19 11/22/19 History pantoprazole 40 mg PO BID 10/26/19 11/22/19 History polyethylene glycol 3350 17 g PO DAILY PRN 10/26/19 11/22/19 History sennosides [senna] 8.6 mg PO DAILY PRN 10/26/19 11/22/19 History sertraline 25 mg PO QPM 10/26/19 11/22/19 History torsemide 10 mg PO 3XWK 10/26/19 11/22/19 History trazodone 50 mg PO HS 10/27/19 11/22/19 History guaifenesin 100 mg PO Q6H PRN 11/22/19 11/22/19 History insulin NPH isoph U-100 human 48 unit SUBCUT .QDINNER 11/22/19 11/22/19 History [Novolin N NPH U-100 Insulin] warfarin [Coumadin] 5 mg PO DAILY 11/22/19 11/22/19 History Patient History Medical History (Updated 11/24/19 @ 12:57 by JOE Cross) Anxiety (Chronic) Aortic stenosis (Chronic) moderate Cerebrovascular disease (Chronic) "history stroke and TIA" L sided weakness. Chronic pancreatitis (Chronic) CKD (chronic kidney disease), stage III (Chronic) F/U PCP COPD (chronic obstructive pulmonary disease) (Chronic) Depression (Chronic) Diabetes mellitus, type II (Chronic) poorly controlled Dyslipidemia (Chronic) Fatty liver (Chronic) Gastroparesis (Chronic) GERD (gastroesophageal reflux disease) Giant cell arteritis (Resolved) Goals of care, counseling/discussion HTN (hypertension) (Chronic) Left bundle branch block Non-STEMI (non-ST elevated myocardial infarction) 01/2019 Osteoarthritis (Chronic) Pancreatic cyst (Chronic) Pancreatic divisum (Chronic) Pancreatitis (Chronic) Peripheral neuropathy (Chronic) RLS (restless legs syndrome) (Chronic) Seasonal allergies (Chronic) Sleep apnea (Chronic) PT DENIES/NO DEVICE Valvular heart disease Surgical History History of bilateral tubal ligation (Resolved) History of cataract surgery (Chronic) both eyes History of ERCP (Resolved) x3 with stents. ERCP 04/30/18. MAC 3, grade 2 view. 7.0 ETT placed. No issues. S/P cardiac catheterization (Resolved) 01/2019 [facility] X 2-TOTAL 2 STENTS 04/2019 non obstructive disease Family History Daughter No problems noted. Father Family history of diabetes mellitus Family/Other Family history of diabetes mellitus Mother Family history of diabetes mellitus Grandfather Family history of diabetes mellitus Grandmother Family history of diabetes mellitus Social History Preferred Language: Ukrainian Communication Ability: Effective Drying Machine Tender Required: No Beliefs That Will Affect Care: None marital status: / Current Living Situation: [facility] Current Living Situation Comment: [facility] Other Information That Helps Us Care for You: No Feels Safe at Home: Yes Safety Concerns: Feels Safe At This Time Smoking Status: Former smoker Second Hand Exposure: No ; Hx Alcohol Use: Yes Alcohol type: beer Hx Substance Use: No Review of Systems Review of Systems: General: + pain in stomach and chest HEENT: Pt denies WALKER, dizziness CV: + pain in right side of chest Resp: + SOB GI: (-) abdominal pain Physical Exam Constitutional: + ill appearing, cooperative and + in distress Respiratory: + respiratory distress, + labored breathing, + uses accessory muscles, + tachypneic and symmetric chest movement Auscultation: + diminished lung sounds and + rhonchi Cardiovascular: Rate/Rhythm: + tachycardic Heart Sounds: normal S1 and normal S2 Extremities: normal capillary refill Gastrointestinal (Abdomen): normal bowel sounds, soft, nontender, no hepatosplenomegaly Skin: no rashes, warm and dry Results & Data Vital Signs (Past 12 Hours) Vital Signs Pulse Pulse Resp BP Pulse Ox 11/24/19 12:34 114 H 31 H 96 11/24/19 12:06 106 H 33 H 98 11/24/19 12:00 110 H 96 11/24/19 11:14 112 H 187/109 H 98 11/24/19 11:00 109 H 97 11/24/19 10:13 109 H 157/81 H 100 11/24/19 10:00 101 H 98 11/24/19 09:35 111 H 34 H 98 11/24/19 09:31 108 H 36 H 96 11/24/19 09:21 108 H 36 H 94 11/24/19 09:13 96 H 156/79 H 96 11/24/19 09:00 93 H 96 11/24/19 08:13 83 131/55 L 95 11/24/19 08:00 85 94 11/24/19 07:37 78 13 92 11/24/19 07:30 83 93 11/24/19 07:13 87 131/70 92 11/24/19 07:00 79 92 11/24/19 06:30 77 93 11/24/19 06:13 79 133/81 92 11/24/19 06:00 83 90 11/24/19 05:30 84 93 11/24/19 05:14 92 H 135/85 92 11/24/19 05:10 75 19 91 11/24/19 05:00 70 93 11/24/19 04:30 81 90 11/24/19 04:13 139 H 87/45 L 95 11/24/19 04:00 66 95 11/24/19 03:30 72 95 11/24/19 03:13 72 126/63 96 11/24/19 03:00 66 96 11/24/19 02:30 66 96 11/24/19 02:13 67 95/47 L 96 11/24/19 02:00 74 94 11/24/19 01:52 78 23 92 11/24/19 01:30 77 95 11/24/19 01:14 80 93 11/24/19 01:13 81 132/68 93 11/24/19 01:00 68 98 PG Care Time/CCT Total # of Minutes Spent Total Time Spent with Patient: Total time spent is greater than 50% in coordination of care (as documented) at patient's floor/unit and/or counseling patient: 125 Time Spent Midlevel Total time spent 125 minutes with > 50% of that time spent assessing the patient, discussing goals of care with patient and family, providing symptom management, and collaborating with the IDT.
[2019-11-24] MEDS ORDERED: MoRPHine SULFATE 2 MG/ML CARP IV STA (12:58)
[2019-11-24] MEDS ORDERED: LEVALBUTEROL HCL 0.63 MG/3 ML NEB NEB SCH (13:00)
[2019-11-24] MEDS ORDERED: XOPENEX/ATROVENT 0.63mg/0.5MG NEB COMBO NEB SCH (13:00)
[2019-11-24] MEDS ORDERED: IPRATROPIUM BROMIDE NEB SOLN 0.02% 2.5 ML VIAL INH SCH (13:00)
[2019-11-24] MEDS ORDERED: ATROPINE SULFATE 1% OP SOLN 5 ML BTL SL PRN (13:29)
[2019-11-24] MEDS: MoRPHine SULFATE 2 MG/ML CARP IV PRN (14:03)
[2019-11-24] MEDS ORDERED: MoRPHine SULF/NSS 250 MG/250 ML BTL IV SCH (14:45)
--- NOTE | 2019-11-24 17:37 | Hospitalist Progress Note ---
Date of Service November 24, 2019 Assessment & Plan (1) COPD exacerbation: Patient is a 79 yr female from [facility] with a PMH of COPD, DM II on insulin, CAD, history of CVA, CKD 3, hypertension, IPMN, recurrent pancreatitis and other medical problems listed below who presents with shortness of breath and wheezing x5 days and was found to have COPD exacerbation. Acute Hypercarbic Respiratory Failure Acute COPD Exacerbation Acute Pulmonary Edema Aspiration Not on home Oxygen at baseline CXR:. Cardiomegaly with evidence of congestive failure. Bilateral perihilar airspace opacities likely represent interstitial edema. Correlate clinically for evidence of superimposed pneumonia. Small pleural effusions. An endotracheal tube has been placed as detailed above. Procalcitonin: 0.08 Influenza Screen: Negative Aspiration precautions S/P Extubation on 11/24/19 Was on DuoNebs, IV Solu-Medrol, doxycycline, Pulmicort Appreciate Certified Ski Patroller Help Patient is transitioned to comfort measures only Appreciate Palliative Care Input (2) Elevated lactic acid level: Lactic Acidosis In setting of Hypoxia, CKD Received IV fluids (3) Acute kidney injury superimposed on chronic kidney disease: Baseline Cr ~ high 1s Received IV fluids was on torsemide at home Monitor renal function Avoid Nephrotoxic agents as able (4) Hyperglycemia due to type 2 diabetes mellitus: A1c of 10.4 in Jul 2019 Beta hydroxybutyric acid normal, normal anion gap Glycemic Pharmacy consulted Discontinue Insulin therapy due to comfort measures (5) Paroxysmal atrial fibrillation: Continue diltiazem On Coumadin for anticoagulation INR supratherapeutic (6) Diastolic CHF: Echocardiogram completed previous hospitalization LVEF 60-65%, mod aortic stenosis, grade I DD 07/27/19 and 07/12/19 Was on Torsemide 10 mg MWF (7) History of CVA (cerebrovascular accident): Was on plavix and statin (8) CAD (coronary artery disease): H/O GAETANO x2 in 01/2019 Was on plavix, statin, metoprolol, losartan, imdur DVT Px: On Coumadin Code status: Full Code Disposition On Comfort measures only Palliative Care following Subjective Patient is seen and examined at bedside Extubated this morning Currently on BiPAP States having significant SOB, retrosternal chest discomfort Discussed with family at bedside Also discussed with ICU team and Palliative Care Patient was transitioned to comfort measures only as per patient's wishes Review of Systems Review of Systems: All systems reviewed & are unremarkable except as noted in HPI & below Physical Exam Physical Exam: Physical Exam: Vitals signs as noted above General Appearance:Moderately built and nourished, chronic ill appearing, + respiratory distress Head: normocephalic, Atraumatic Eyes: normal inspection, EOMI Neck: supple, Trachea midline Respiratory/Chest: Decreased breath sounds, B/L rhonchi, wheezing Cardiovascular: S1, S2, systolic murmur, +Tachycardia Abdomen/GI:Soft, Non tender, Bowel sounds present Extremities/Musculoskelatal:normal inspection, no edema Neurologic/Psych:AAOX3, grossly no focal neurological deficits Skin: normal color, warm Results & Data Vital Signs (Past 12 Hours) Vital Signs Pulse Pulse Resp BP Pulse Ox 11/24/19 13:09 117 H 32 H 95 11/24/19 12:34 114 H 31 H 96 11/24/19 12:06 106 H 33 H 98 11/24/19 12:00 110 H 96 11/24/19 11:14 112 H 187/109 H 98 11/24/19 11:00 109 H 97 11/24/19 10:13 109 H 157/81 H 100 11/24/19 10:00 101 H 98 11/24/19 09:35 111 H 34 H 98 11/24/19 09:31 108 H 36 H 96 11/24/19 09:21 108 H 36 H 94 11/24/19 09:13 96 H 156/79 H 96 11/24/19 09:00 93 H 96 11/24/19 08:13 83 131/55 L 95 11/24/19 08:00 85 94 11/24/19 07:37 78 13 92 11/24/19 07:30 83 93 11/24/19 07:13 87 131/70 92 11/24/19 07:00 79 92 11/24/19 06:30 77 93 11/24/19 06:13 79 133/81 92 11/24/19 06:00 83 90 11/24/19 05:30 84 93 Laboratory Results Short CBC 11/24/19 Range/Units 04:15 WBC 12.65 H (4.8-10.8) K/uL Hgb 8.2 L (12.0-16.0) g/dL Hct 24.7 L (37-47) % Plt Count 150 (130-400) K/uL BMP 11/24/19 11/24/19 11/24/19 00:21 04:15 10:19 Sodium 143 142 141 Potassium 4.7 4.6 4.8 Chloride 115 H 115 H 111 H Carbon Dioxide 23 24 24 BUN 43 H 42 H 43 H Creatinine 2.07 H 2.18 H 2.06 H Glucose 146 H 153 H 199 H Calcium 8.1 L 7.9 L 8.0 L Cardiac Enzymes 11/23/19 11/24/19 11/24/19 Range/Units 22:10 04:15 10:12 Troponin I 2.180 H* 2.550 H* 1.510 H* (0-0.045) ng/ml Liver Function 11/24/19 11/24/19 Range/Units 04:15 10:19 Total Bilirubin 0.2 0.3 (0.2-1) mg/dl Direct Bilirubin < 0.1 (0-0.2) mg/dl AST 101 H 91 H (15-37) U/L ALT 67 69 (12-78) U/L Alkaline Phosphatase 103 118 H (45-117) U/L Albumin 2.1 L 2.4 L (3.4-5.0) gm/dl Urine 11/23/19 Range/Units 18:20 Urine Color Yellow Urine Appearance Cloudy A (Clear) Urine pH 5.0 (4.5-7.5) Ur Specific [place] 1.019 (1.000-1.030) Urine Protein 1+ H (Negative) Urine Glucose (UA) 2+ H (Negative) (1) Hyperglycemia due to type 2 diabetes mellitus Diabetes mellitus long-term insulin use: unspecified inside sales representative insulin use status Qualified Code(s): E11.65 - Type 2 diabetes mellitus with hyperglycemia (2) CAD (coronary artery disease) Coronary Disease-Associated Artery/Lesion type: [place] artery [place] vs. transplanted heart: [place] heart Associated angina: with unspecified angina Qualified Code(s): I25.119 - Atherosclerotic heart disease of [place] coronary artery with unspecified angina pectoris
[2019-11-24] MEDS: MIRTAZAPINE SOLTAB 15 MG PO SCH (21:05)
[2019-11-24] MEDS ORDERED: LORazepam 1 MG/2 ML VIAL IV PRN (21:38)
[2019-11-24 22:36] VITALS: PULSE 74; O2SAT 83
[2019-11-25] MEDS: MoRPHine SULFATE 2 MG/ML CARP IV PRN (00:05)
--- NOTE | 2019-11-25 01:38 | Death Summary ---
Date of Service November 25, 2019 Pronouncement Note Date and Time of Date of : 11/25/19 Time of : 01:20 PCOD Preliminary cause of : Aspiration into airway Contributing Factors (1) Goals of care, counseling/discussion: (2) Cardiac arrest: (3) Acute kidney injury superimposed on chronic kidney disease: (4) COPD exacerbation: (5) Atrial fibrillation with RVR: Summary Additional details: Discharge summary to be accomplished by Dr. Pérez. Additional Data Confirmation of : no pulse, no respirations, no heart sounds and pupils fixed and dilated Family: at bedside Attending/PCP notified?: No Attending physician: Bud Pérez MD
--- NOTE | 2019-11-25 07:48 | Discharge Summary ---
Date of Service November 25, 2019 Admission HPI Per Admitting Provider This is a 79-year-old female from [facility] with a PMH of COPD, DM II on insulin, CAD, history of CVA, CKD 3, hypertension, IPMN, recurrent pancreatitis and other medical problems listed below who presents with shortness of breath and wheezing x5 days. Patient was around sick family members over the holidays and developed shortness of breath and wheezing last Thursday. Also endorses nonproductive cough and decreased p.o. intake. Denies any fever, chills, lightheadedness, visual changes, sore throat, sputum production, hemoptysis, chest pain, palpitations, nausea, vomiting, abdominal pain, dysuria, diarrhea or constipation. Admission Exam Per Admitting Provider General Appearance: WD/WN, vitals as above, NAD, sitting up in bed, appears chronically ill, audibly wheezing and short of breath while speaking Head: normocephalic, atraumatic Eyes: normal inspection, PERRL, conjunctivae normal, anicteric sclerae ENT: external ear and nose normal, oropharynx normal Neck: trachea midline, no thyromegaly normal visual inspection Respiratory: Increased respiratory effort, diffuse wheezing heard in lung page, no rales or rhonchi. No accessory muscle use Cardiovascular: regular rate, rhythm, systolic murmur, normal peripheral pulses. Vessels: no JVD or carotid bruit Chest: normal inspection of chest Abdomen/GI: normal bowel sounds, soft, nontender, no hepatosplenomegaly Extremities/Musculoskelatal: no cyanosis or clubbing, extremities motor strength 5/5 Neurologic: PERRL, EOMI, accommodation nl, no face palsy, no dysarthria, CN's II-XI intact bilaterally and moves all extremities Psychiatric: A+Ox3, euthymic affect Skin: no rashes, normal color, warm/dry Principal Diagnosis Acute respiratory failure with hypoxia COPD exacerbation Acute pulmonary edema Possible aspiration pneumonia Discharge Data Allergies Allergy/AdvReac Type Severity Reaction Status Date / Time gadobutrol [From Gadavist] Allergy Severe Anaphylaxis Verified 11/22/19 16:10 Gadolinium-Containing Allergy Severe NAUSEA,VOMITING, Verified 11/22/19 16:10 Contrast Medi SWELLING/EDEMA AROUND EYES, WHEEZING Iodinated Contrast Media Allergy Severe RASH TO Verified 11/22/19 16:10 IVP DYE,NAUSEA, FAINTING, COUGHING, GAGGING, HEADACH Sulfa (Sulfonamide Allergy Severe HIVES, Verified 11/22/19 16:10 Antibiotics) FACIAL AND ARM SWELLING cerivastatin Allergy Intermediate HIVES Verified 11/22/19 16:10 codeine Allergy Intermediate "PRICKLY Verified 11/22/19 16:10 RASH" hydroxyzine Allergy Intermediate N/V Verified 11/22/19 16:10 latex Allergy Intermediate DERMATITIS-PT Verified 11/22/19 16:10 TOLERATED A LATEX CATHETER 03/26/08 prednisone Allergy Intermediate elevates Verified 11/22/19 16:10 blood sugar Bactrim Allergy Mild RASH Verified 04/29/18 14:40 diphenhydramine Allergy Mild RASH; Verified 11/04/19 07:27 SLEEPINESS WITH "PHARBEDRYL" loratadine Allergy Mild HIVES Verified 11/04/19 07:27 sulfamethoxazole Allergy Mild RASH Verified 11/04/19 07:27 trimethoprim Allergy Mild RASH Verified 11/04/19 07:27 alprazolam AdvReac Intermediate "SLEEPY Verified 11/04/19 07:27 STUPER" metformin AdvReac Intermediate DIARRHEA Verified 11/04/19 07:27 tetanus toxoid, adsorbed AdvReac Intermediate SWELLING Verified 11/04/19 07:27 AT INJECTION SITE morphine AdvReac Mild VOMITING Verified 11/04/19 07:27 simvastatin AdvReac Mild COUGH, Verified 11/04/19 07:27 "DISCOMFORT" Consultations 11/22/19 17:32 ED Decision to Admit Stat 11/22/19 20:02 Consult Case Management - Discharge Planning Routine 11/23/19 15:04 Consult Crisis Intervention Specialist Routine 11/24/19 10:21 Consult Palliative Care Routine Procedures Performed CXR: 1. Cardiomegaly without overt pulmonary edema. 2. Subtle patchy asymmetric left lung base opacities suggest atelectasis versus pneumonitis. 3. Opacity of the medial right lung apex is likely secondary to object external to the patient. Repeat CXR: 1. Cardiomegaly with evidence of congestive failure 2. Bilateral perihilar airspace opacities likely represent interstitial edema. Correlate clinically for evidence of superimposed pneumonia. 3. Small pleural effusions. 4. An endotracheal tube has been placed as detailed above. Ordered Studies 11/23/19 15:04 US point of care ultrasound Stat Hospital Course (1) COPD exacerbation: Patient is a 79 yr female from [facility] with a PMH of COPD, DM II on insulin, CAD, history of CVA, CKD 3, hypertension, IPMN, recurrent pancreatitis and other medical problems listed below who presents with shortness of breath and wheezing x5 days and was found to have COPD exacerbation. Acute Hypercarbic Respiratory Failure Acute COPD Exacerbation Acute Pulmonary Edema Aspiration Not on home Oxygen at baseline CXR:. Cardiomegaly with evidence of congestive failure. Bilateral perihilar airspace opacities likely represent interstitial edema. Correlate clinically for evidence of superimposed pneumonia. Small pleural effusions. An endotracheal tube has been placed as detailed above. Procalcitonin: 0.08 Influenza Screen: Negative Aspiration precautions S/P Extubation on 11/24/19 Was on DuoNebs, IV Solu-Medrol, doxycycline, Pulmicort Appreciate Crisis Intervention Specialist Help Patient is transitioned to comfort measures only Appreciate Palliative Care Input (2) Elevated lactic acid level: Lactic Acidosis In setting of Hypoxia, CKD Received IV fluids (3) Acute kidney injury superimposed on chronic kidney disease: Baseline Cr ~ high 1s Received IV fluids was on torsemide at home Monitor renal function Avoid Nephrotoxic agents as able (4) Hyperglycemia due to type 2 diabetes mellitus: A1c of 10.4 in Jul 2019 Beta hydroxybutyric acid normal, normal anion gap Glycemic Pharmacy consulted Discontinue Insulin therapy due to comfort measures (5) Paroxysmal atrial fibrillation: Continue diltiazem On Coumadin for anticoagulation INR supratherapeutic (6) Diastolic CHF: Echocardiogram completed previous hospitalization LVEF 60-65%, mod aortic stenosis, grade I DD 07/27/19 and 07/12/19 Was on Torsemide 10 mg MWF (7) History of CVA (cerebrovascular accident): Was on plavix and statin (8) CAD (coronary artery disease): H/O GAETANO x2 in 01/2019 Was on plavix, statin, metoprolol, losartan, imdur DVT Px: On Coumadin Code status: Full Code Disposition On Comfort measures only Palliative Care following Patient is transition to comfort measures only as per patient's and family wishes. Palliative care was involved. Patient was started on morphine for comfort. Patient on November 25, 2019 at 1:20 AM Total Time Total Time Spent Total Time Spent (In Minutes): 25 minutes Total Time Includes: Examination of the Patient, Discharge Planning, Medication Reconciliation, Communication With Other Providers and Other Discharge Plan Discharge Items Patient Disposition: Reason For Visit: COPD EXACERBATION Follow-up/Referrals: ISIDORO HARDY WILMAR [Primary Care Provider] - Admission Data Admit Date/Time: 11/22/19 18:25 Other DC Date/Time DO NOT enter until pt leaves facility: 11/25/19 02:26
--- NOTE | 2019-11-25 08:14 | Electrocardiogram Report ---
Test Reason : Blood Pressure : / mmHG Vent. Rate : 104 BPM Atrial Rate : 104 BPM P-R Int : 256 ms QRS Dur : 132 ms QT Int : 350 ms P-R-T Axes : -83 -19 110 degrees QTc Int : 460 ms Sinus tachycardia Left bundle branch block Abnormal ECG When compared with ECG of 23-NOV-2019 14:42, (unconfirmed) Left bundle branch block is now Present Criteria for Anteroseptal infarct are no longer Present Confirmed by Santiago Malloy ([id number]) on 11/24/2019 5:34:43 PM Referred By: REFERRED SELF Confirmed By:Filipe Malloy
--- NOTE | 2019-11-25 08:14 | Electrocardiogram Report ---
Test Reason : Blood Pressure : / mmHG Vent. Rate : 076 BPM Atrial Rate : 129 BPM P-R Int : 000 ms QRS Dur : 068 ms QT Int : 356 ms P-R-T Axes : 000 061 -04 degrees QTc Int : 400 ms Sinus tachycardia with 2nd degree AV block Right bundle branch block Abnormal ECG Confirmed by Santiago Malloy ([id number]) on 11/24/2019 5:41:18 PM Referred By: REFERRED SELF Confirmed By:Filipe Malloy
--- NOTE | 2019-11-25 08:14 | Electrocardiogram Report ---
Test Reason : Blood Pressure : / mmHG Vent. Rate : 080 BPM Atrial Rate : 144 BPM P-R Int : 000 ms QRS Dur : 072 ms QT Int : 364 ms P-R-T Axes : 000 062 -16 degrees QTc Int : 419 ms Normal sinus rhythm Right bundle branch block Low voltage QRS Abnormal ECG When compared with ECG of 22-NOV-2019 16:01, Left bundle branch block is no longer Present Confirmed by Santiago Malloy ([id number]) on 11/24/2019 5:38:22 PM Referred By: REFERRED SELF Confirmed By:Filipe Malloy
--- NOTE | 2019-11-25 08:15 | Electrocardiogram Report ---
Test Reason : Blood Pressure : / mmHG Vent. Rate : 107 BPM Atrial Rate : 107 BPM P-R Int : 166 ms QRS Dur : 132 ms QT Int : 384 ms P-R-T Axes : 043 002 099 degrees QTc Int : 512 ms Poor data quality, interpretation may be adversely affected Sinus tachycardia Left bundle branch block Abnormal ECG When compared with ECG of 23-NOV-2019 15:11, (unconfirmed) T wave inversion no longer evident in Lateral leads QT has lengthened Confirmed by Santiago Malloy ([id number]) on 11/24/2019 5:45:55 PM Referred By: REFERRED SELF Confirmed By:Filipe Malloy
[2019-11-25] MEDS ORDERED: THIAMINE HCL 100 MG in SYRINGE 9 ML IV SCH (09:00)
[2019-11-25] MEDS ORDERED: THIAMINE HCL 100 MG TAB PO SCH (09:00)
[2019-11-25] MEDS ORDERED: methylPREDNISolone 30 MG in SYRINGE 0 ML IV SCH (09:00)
--- NOTE | 2019-11-25 20:18 | Procedure Note ---
Procedure Note Date of Service November 23, 2019 Procedure Date: Noted above Procedure: Endotracheal intubation Pre-procedure Diagnosis: CODE BLUE Post-procedure Diagnosis: same as above Prior to Procedure: Informed Consent: emergent Attending Staff: Bony Zazueta DO The identity of the patient was confirmed and a bedside time out was performed. Description of Procedure: Patient was evaluated and required intubation for impending respiratory failure. The patient was prepared in the usual fashion. A 3 MAC laryngoscope was used. O n initial attempt there was significant oral secretions in the pharynx and I was unable to visualize the glottic opening. Aggressive suctioning was performed and I switched to a 4 MAC laryngoscope. During a subsequent attempt I was able to visualize the glottic opening, the vocal cords were in obvious spasm. During what may have been a single episode of a spontaneous respiration the vocal cords relaxed and I was able to pass an 7.5 mm inner diameter endotrachial tube. A grade 1 view was obtained. The endotracheal tube was noted to pass through the vocal cords. Chest rise was bilateral. Bilateral breath sounds were heard without air sounds in the abdomen. Mist was noted in the endotracheal tube. End-tidal CO2 measurement was positive. Chest x-ray show showed shallow placement and the tube was advanced and a repeat x-ray showed adequate placement Complications: Probable aspiration into the airways Findings: Not applicable Specimens: Not applicable Estimated blood loss: Zero Coding CPT Codes Resuscitation - Resuscitation: [id number] Endotracheal Intubation, emergency ([id number])
--- NOTE | 2019-11-25 20:27 | Billing Data ---
Date of Service November 25, 2019 Coding Level of Care Code Critical Care 1st - mins
--- NOTE | 2019-11-25 20:28 | Billing Data ---
Date of Service November 23, 2019 Coding Level of Care Code Critical Care ea addt'l 30 min
--- NOTE | 2019-11-30 09:21 | Emergency Department Note ---
[place] [address] Emergency Department Note ISigned Patient: PALLAVI LASSITER Date of Service: 11/22/19 MR#: [id number] Att Phy: Acct ID:[id number] Tosha Phy: [facility] Date: 1940 Fam Phy: Age: 79 Location: ED Sex: F cc: Physician Billing~ *NOTICE TO RECEIVING DEMOCRAT/AGENCY This information is strictly Confidential and protected under [place] law. [place] law prohibits you from making any further disclosure of this information unless further disclosure is expressly permitted by the written consent of the person to whom it pertains or is authorized by law. A general authorization for the release of medical or other information is not sufficient for this purpose. Hospital accepts no responsibility if the information is made available to any other person, INCLUDING THE PATIENT. Entered by Natalie Wilkinson acting as a scribe for History of Present Illness General Chief complaint: Respiratory Problems Stated complaint: SOB, COUGH Time Seen by Provider: 11/22/19 15:43 Source: patient History of Present Illness Onset (ago): day(s) 3 Location: left (lung) and right (lung) Severity: severe and similar to prior episodes Pain Consistency: + other (worsening) Quality: + other (shortness of breath) Relieved By: not by medication (breathing treatments) Associated symptoms: + cough and + shortness of breath; no fever/chills and no other (lower extremity edema, body aches) The patient is a 79 year old female presenting to the Emergency Department compl aining of a worsening cough starting 3 days ago. The patient reports that she has a severe cough. She states that she is short of breath. She explains that because of her cough she is having trouble speaking. She notes that her chest feels sore from coughing too much. She adds that she hasnt been able to sleep because of her cough. The patient reports that her blood sugar has been elevated but that it is usually elevated. She states that she had a few breathing treatments at home that didnt improve her cough or shortness of breath. She notes that she has experienced these symptoms before as she has COPD. She adds that she normally takes Coumadin. The patient denies fever, chills, lower extremity edema and body aches. Home Medications Home Medications Medication Instructions Recorded Confirmed Type lorazepam [Ativan] 0.5 mg PO Q6 PRN 08/24/18 11/22/19 History ondansetron HCl [Zofran] 4 mg PO Q8H PRN 08/24/18 11/22/19 History mirtazapine 45 mg PO HS 01/26/19 11/22/19 History ropinirole 1 mg PO HS 01/26/19 11/22/19 History atorvastatin 40 mg PO QAM #30 tab 01/28/19 11/22/19 Rx clopidogrel 75 mg PO QAM #30 tab 01/28/19 11/22/19 Rx isosorbide mononitrate 30 mg PO QAM #30 tab 01/28/19 11/22/19 Rx nitroglycerin [Nitrostat] 0.4 mg SUBLINGUAL PRN PRN #30 tab 01/28/19 11/22/19 Rx magnesium oxide 400 mg PO QAM 07/11/19 11/22/19 History cholestyramine-aspartame 4 g PO QAM 08/16/19 11/22/19 History losartan 100 mg PO QAM 08/16/19 11/22/19 History simethicone 80 mg PO Q6H PRN 08/16/19 11/22/19 History Novolin N NPH U-100 Insulin 70 unit SUBCUT QAM 10/26/19 11/22/19 History acetam inophen 650 mg PO Q4H PRN 10/26/19 11/22/19 History bisacodyl 10 mg TN DAILY PRN 10/26/19 11/22/19 History budesonide 0.5 mg INHALATION BID 10/26/19 11/22/19 History cetirizine 5 mg PO QPM 10/26/19 11/22/19 History dicyclomine 10 mg PO TID PRN 10/26/19 11/22/19 History diltiazem HCl 120 mg PO QAM 10/26/19 11/22/19 History docusate sodium 100 mg PO BID 10/26/19 11/22/19 History gabapentin 800 mg PO HS 10/26/19 11/22/19 History magnesium hydroxide [Milk of 30 ml PO DAILY PRN 10/26/19 11/22/19 History Magnesia] meclizine 12.5 mg PO Q8H PRN 10/26/19 11/22/19 History metoprolol succinate 25 mg PO BID 10/26/19 11/22/19 History montelukast 10 mg PO HS 10/26/19 11/22/19 History pantoprazole 40 mg PO BID 10/26/19 11/22/19 History polyethylene glycol 3350 17 g PO DAILY PRN 10/26/19 11/22/19 History sennosides [senna] 8.6 mg PO DAILY PRN 10/26/19 11/22/19 History sertraline 25 mg PO QPM 10/26/19 11/22/19 History torsemide 10 mg PO 3XWK 10/26/19 11/22/19 History trazodone 50 mg PO HS 10/27/19 11/22/19 History guaifenesin 100 mg PO Q6H PRN 11/22/19 11/22/19 History insulin NPH isoph U-100 human 48 unit SUBCUT .QDINNER 11/22/19 11/22/19 History [Novolin N NPH U-100 Insulin] warfarin [Coumadin] 5 mg PO DAILY 11/22/19 11/22/19 History Allergies Allergy/AdvReac Type Severity Reaction Status Date / Time gadobutrol [From Gadavist] Allergy Severe Anaphylaxis Verified 11/22/19 16:10 Gadolinium-Containing Allergy Severe NAUSEA,VOMITING, Verified 11/22/19 16:10 Contrast Medi SWELLING/EDEMA AROUND EYES, WHEEZING Iodinated Contrast Media Allergy Severe RASH TO Verified 11/22/19 16:10 IVP DYE,NAUSEA, FAINTING, COUGHING, GAGGING, HEADACH Sulfa (Sulfonamide Allergy Severe HIVES, Verified 11/22/19 16:10 Antibiotics) FACIAL AND ARM SWELLING cerivastatin Allergy Intermediate HIVES Verified 11/22/19 16:10 codeine Allergy Intermediate "PRICKLY Verified 11/22/19 16:10 RASH" hydroxyzine Allergy Intermediate N/V Verified 11/22/19 16:10 latex Allergy Intermediate DERMATITIS-PT Verified 11/22/19 16:10 TOLERATED A LATEX CATHETER 03/26/08 prednisone Allergy Intermediate elevates Verified 11/22/19 16:10 blood sugar Bactrim Allergy Mild RASH Verified 04/29/18 14:40 diphenhydramine Allergy Mild RASH; Verified 11/04/19 07:27 SLEEPINESS WITH "PHARBEDRYL" loratadine Allergy Mild HIVES Verified 11/04/19 07:27 sulfamethoxazole Allergy Mild RASH Verified 11/04/19 07:27 trimethoprim Allergy Mild RASH Verified 11/04/19 07:27 alprazolam AdvReac Intermediate "SLEEPY Verified 11/04/19 07:27 STUPER" metformin AdvReac Intermediate DIARRHEA Verified 11/04/19 07:27 tetanus toxoid, adsorbed AdvReac Intermediate SWELLING Verified 11/04/19 07:27 AT INJECTION SITE morphine AdvReac Mild VOMITING Verified 11/04/19 07:27 simvastatin AdvReac Mild COUGH, Verified 11/04/19 07:27 "DISCOMFORT" Past Med/Surg History Medical History Anxiety (Chronic) Aortic stenosis (Chronic) moderate Cerebrovascular disease (Chronic) "history stroke and TIA" L sided weakness. Chronic pancreatitis (Chronic) CKD (chronic kidney disease), stage III (Chronic) F/U PCP COPD (chronic obstructive pulmonary disease) (Chronic) Depression (Chronic) Diabetes mellitus, type II (Chronic) poorly controlled Dyslipidemia (Chronic) Fatty liver (Chronic) Gastroparesis (Chronic) GERD (gastroesophageal reflux disease) Giant cell arteritis (Resolved) HTN (hypertension) (Chronic) Left bundle branch block Non-STEMI (non-ST elevated myocardial infarction) 01/2019 Osteoarthritis (Chronic) Pancreatic cyst (Chroni c) Pancreatic divisum (Chronic) Pancreatitis (Chronic) Peripheral neuropathy (Chronic) RLS (restless legs syndrome) (Chronic) Seasonal allergies (Chronic) Sleep apnea (Chronic) PT DENIES/NO DEVICE Valvular heart disease Surgical History History of bilateral tubal ligation (Resolved) History of cataract surgery (Chronic) both eyes History of ERCP (Resolved) x3 with stents. ERCP 04/30/18. MAC 3, grade 2 view. 7.0 ETT placed. No issues. S/P cardiac catheterization (Resolved) 01/2019 [facility] X 2- TOTAL 2 STENTS 04/2019 non obstructive disease Family History Daughter No problems noted. Father Family history of diabetes mellitus Family/Other Family history of diabetes mellitus Mother Family history of diabetes mellitus Grandfather Family history of diabetes mellitus Grandmother Family history of diabetes mellitus Social History Preferred Language: Turkish Communication Ability: Effective Manager Of Global Required: No Beliefs That Will Affect Care: None marital status: / Current Living Situation: Alf Current Living Situation Comment: january 21, no longer has drivers license - stroke Feels Safe at Home: Yes Smoking Status: Former smoker Second Hand Exposure: No ; Review of Systems See HPI for pertinent positives & negatives. and A total of 10 systems reviewed and were otherwise negative Physical Exam Vital Signs Vital Signs - 24 hr 11/22/19 14:41 11/22/19 16:07 11/22/19 16:10 Temperature 37 C Temperature Source Oral Pulse Rate 78 Pulse Rate [Right Apical] 86 Pulse Rhythm Regular Pulse Strength Normal Respiratory Rate 22 26 H Respiratory Effort / Characteristics Non-Labored Spontaneous Spontaneous Accessory Muscle Use Respiratory Depth Normal Respiratory Pattern Regular Blood Pressure 166/68 H Blood Pressure [Left Arm] Blood Pressure Mean 100 Blood Pressure Mean [Left Arm] Blood Pressure Position Sitting Pulse Oximetry 98 91 100 Oxygen Delivery Method Room Air Room Air Nebulizer Sepsis Recent Fever Within 48 Hours No Sepsis New/Un explained Change in Mental Status No Sepsis Action Taken by Nursing No Action Required 11/22/19 16:36 11/22/19 18:45 Temperature Temperature Source Pulse Rate Pulse Rate [Right Apical] 77 87 Pulse Rhythm Pulse Strength Respiratory Rate 20 20 Respiratory Effort / Characteristics Respiratory Depth Respiratory Pattern Blood Pressure Blood Pressure [Left Arm] 130/62 110/52 L Blood Pressure Mean Blood Pressure Mean [Left Arm] 84 71 Blood Pressure Position Pulse Oximetry 100 97 Oxygen Delivery Method Nebulizer Room Air Sepsis Recent Fever Within 48 Hours Sepsis New/Unexplained Change in Mental Status Sepsis Action Taken by Nursing GENERAL: Patient appears fatigued and is coughing with audible wheeze on litter. Alert HENT: Normocephalic, atraumatic. Oropharynx unremarkable. EYES: Normal conjunctiva. Sclera non-icteric. NECK: Supple. No nuchal rigidity. RESPIRATORY: Severe expiratory wheezing. Increased work of breathing. CARDIAC: Normal rate. Normal rhythm. Extremities warm and well perfused. GI: Soft, non-distended. No tenderness to palpation. No rebound or guarding. RECTAL: Deferred. MUSCULOSKELETAL: Right upper chest wall port. Atraumatic. Chest examination reveals no tenderness. LOWER EXTREMITIES: Calves are equal size bilaterally and non-tender. Trace edema NEURO: Normal sensorium. No sensory or motor deficits noted. No facial droop. SKIN: Warm and dry. No jaundice noted. Course Course 1545: The patient was evaluated in room A3, and a complete history and physical examination were performed. 170: I reevaluated the patient at this time who is resting comfortably. 182: I updated the patient at this time. We discussed her discharge plan. 173: I discussed the patient's case with [facility] who will evaluate the patient for further management. Administered Medications Discontinued Medications Albuterol (Duoneb) 12 ml NEB ONE ONE Stop: 11/22/19 15:51 Last Admin: 11/22/19 16:04 Dose: 12 ml Documented by: [id number] Benzonatate (Tessalon Perle) 100 mg PO NOW ONE Stop: 11/22/19 15:51 Last Admin: 11/22/19 16:08 Dose: 100 mg Documented by: [id number] Sodium Chloride (Nss) 500 mls @ 999 mls/hr IV .Q31M ONE Stop: 11/22/19 17:52 Last Infusion: 11/22/19 19:01 Dose: 0 mls/hr Documented by: [id number] Admin: 11/22/19 18:07 Dose: 999 mls/hr Documented by: [id number] Insulin Human Regular (Novolin R U-100 Per Unit) 10 units IV NOW STA Stop: 11/22/19 17:32 Last Admin: 11/22/19 18:07 Dose: 10 units Documented by: [id number] Cosigned by: [id number] Methylprednisolone (Solumedrol) 60 mg IV NOW STA Stop: 11/22/19 17:32 Last Admin: 11/22/19 18:07 Dose: 60 mg Documented by: [id number] Medical Decision Making Differential Diagnosis Differential diagnoses includes but is not limited to pneumonia, bronchitis, COPD/Asthma exacerbation, pneumothorax, pulmonary embolism, congestive heart failure, acute coronary syndrome. Medical Records Attestation: I reviewed the patient's medical records. Home Medications Current Medication List: was personally reviewed by me Laboratory Data Attestation: I reviewed the patient's lab results. Result diagrams: 11/22/19 15:43 document embedded image 11/22/19 16:22 document embedded image Lab Results 11/22/19 11/22/19 11/22/19 Range/Units 15:43 16:06 16:06 WBC 10.66 (4.8-10.8) K/uL RBC 3.83 L (4.2-5.4) M/uL Hgb 10.4 L (12.0-16.0) g/dL Hct 31.1 L (37-47) % MCV 81.2 (80-100) fL MCH 27.2 (25-34) pg MCHC 33.4 (32-36) g/dL RDW Std Deviation 46.4 H (36.4-46.3) fL RDW Coeff of Stormy 15.7 H (11.5-14.5) % Plt Count 182 (130-400) K/uL MPV 9.8 (7.4-10.4) fL Immature Gran % (Auto) 0.3 % Neut % (Auto) 54.2 % Lymph % (Auto) 31.0 % Hoke % (Auto) 11.2 % Eos % (Auto) 2.6 % Baso % (Auto) 0.7 % Immature Gran # (Auto) 0.03 H (0.00- 0.02) K/uL Neut # (Auto) 5.79 (1.4-6.5) K/uL Lymph # (Auto) 3.30 (1.2-3.4) K/uL Hoke # (Auto) 1.19 H (0.11-0.59) K/uL Eos # (Auto) 0.28 (0-0.5) K/uL Baso # (Auto) 0.07 (0-0.2) K/uL PT (9.0-12.0) Seconds INR (0.9- 1.1) VBG pH (7.36-7.41) VBG pCO2 (38-50) mmHg VBG pO2 mmHg VBG HCO3 mmol/L VBG O2 Saturation % VBG Base Excess mEq/L Barometric Pressure mm/Hg Sodium (136-145) mmol/L Potassium (3.5-5.1) mmol/L Chloride (98-107) mmol/L Carbon Dioxide (21-32) mmol/L Anion Gap (3-11) BUN (7- 18) mg/dl Creatinine (0.6-1.2) mg/dl Est Cr Clr Drug Dosing ml/min Est GFR ( Amer) Est GFR (Non-Af Amer) BUN/Creatinine Ratio (10-20) Glucose (70-99) mg/dl Lactate (0.4-2.0) mmol/L Calcium (8.5-10.1) mg/dl Total Bilirubin (0.2-1) mg/dl AST (15-37) U/L ALT (12-78) U/L Alkaline Phosphatase (45-117) U/L Troponin I (0-0.045) ng/ml Total Protein (6.4-8.2) gm/dl Albumin (3.4-5.0) gm/dl Globulin (2.5-4.0) gm/dl Albumin/Globulin Ratio (0.9-2) Lipase (73-393) U/L Beta-Hydroxybutyric Acd (0.2-2.81) mg/dl Procalcitonin (0-0.5) ng/ml Influenza Type A Ag Neg for Influ A (Neg) Influenza Type A (PCR) Neg for Influ A (Neg) Influenza Type B Ag Neg for Influ B (Neg) Influenza Type B (PCR) Neg for Influ B (Neg) 11/22/19 11/22/19 11/22/19 Range/Units 16:18 16:18 16:22 WBC (4.8-10.8) K/uL RBC (4.2-5.4) M/uL Hgb (12.0-16.0) g/dL Hct (37-47) % MCV (80-100) fL MCH (25-34) pg MCHC (32-36) g/dL RDW Std Deviation (36.4-46.3) fL RDW Coeff of Stormy (11.5- 14.5) % Plt Count (130-400) K/uL MPV (7.4-10.4) fL Immature Gran % (Auto) % Neut % (Auto) % Lymph % (Auto) % Hoke % (Auto) % Eos % (Auto) % Baso % (Auto) % Immature Gran # (Auto) (0.00-0.02) K/uL Neut # (Auto) (1.4-6.5) K/uL Lymph # (Auto) (1.2-3.4) K/uL Hoke # (Auto) (0.11-0.59) K/uL Eos # (Auto) (0-0.5) K/uL Baso # (Auto) (0-0.2) K/uL PT 19.0 H (9.0-12.0) Seconds INR 1.9 H (0.9-1.1) VBG pH 7.36 (7.36-7.41) VBG pCO2 32 L (38-50) mmHg VBG pO2 44 mmHg VBG HCO3 18 mmol/L VBG O2 Saturation 78.0 % VBG Base Excess -7.0 mEq/L Barometric Pressure 723.1 mm/Hg Sodium (136-145) mmol/L Potassium (3.5-5.1) mmol/L Chloride (98-107) mmol/L Carbon Dioxide (21-32) mmol/L Anion Gap (3-11) BUN (7-18) mg/dl Creatinine (0.6-1.2) mg/dl Est Cr Clr Drug Dosing ml/min Est GFR ( Amer) Est GFR (Non-Af Amer) BUN/Creatinine Ratio (10-20) Glucose (70-99) mg/dl Lactate 3.3 H* (0.4-2.0) mmol/L Calcium (8.5-10.1) mg/dl Total Bilirubin (0.2-1) mg/dl AST (15-37) U/L ALT (12-78) U/L Alkaline Phosphatase (45-117) U/L Troponin I (0-0.045) ng/ml Total Protein (6.4-8.2) gm/dl Albumin (3.4-5.0) gm/dl Globulin (2.5-4.0) gm/dl Albumin/Globulin Ratio (0.9-2) Lipase (73-393) U/L Beta-Hydroxybutyric Acd (0.2-2.81) mg/dl Procalcitonin (0-0.5) ng/ml Influenza Type A Ag (Neg) Influenza Type A (PCR) (Neg) Influenza Type B Ag (Neg) Influenza Type B (PCR) (Neg) 12/31/19 12/31/19 12/31/19 Range/Units 16:22 16:22 18:14 WBC (4.8-10.8) K/uL RBC (4.2-5.4) M/uL Hgb (12.0-16.0) g/dL Hct (37-47) % MCV (80-100) fL MCH (25- 34) pg MCHC (32-36) g/dL RDW Std Deviation (36.4-46.3) fL RDW Coeff of Stormy (11.5-14.5) % Plt Count (130-400) K/uL MPV (7.4-10.4) fL Immature Gran % (Auto) % Neut % (Auto) % Lymph % (Auto) % Hoke % (Auto) % Eos % (Auto) % Baso % (Auto) % Immature Gran # (Auto) (0.00-0.02) K/uL Neut # (Auto) (1.4-6.5) K/uL Lymph # (Auto) (1.2-3.4) K/uL Hoke # (Auto) (0.11-0.59) K/uL Eos # (Auto) (0-0.5) K/uL Baso # (Auto) (0-0.2) K/uL PT (9.0- 12.0) Seconds INR (0.9-1.1) VBG pH (7.36-7.41) VBG pCO2 (38-50) mmHg VBG pO2 mmHg VBG HCO3 mmol/L VBG O2 Saturation % VBG Base Excess mEq/L Barometric Pressure mm/Hg Sodium 133 L (136-145) mmol/L Potassium 4.6 (3.5-5.1) mmol/L Chloride 106 (98-107) mmol/L Carbon Dioxide 18 L (21-32) mmol/L Anion Gap 9.0 (3-11) BUN 36 H (7-18) mg/dl Creatin ine 2.12 H (0.6-1.2) mg/dl Est Cr Clr Drug Dosing 19.1 ml/min Est GFR ( Amer) 25.0 Est GFR (Non-Af Amer) 21.6 BUN/Creatinine Ratio 16.9 (10-20) Glucose 419 H* (70-99) mg/dl Lactate 4.7 H* (0.4-2.0) mmol/L Calcium 8.3 L (8.5-10.1) mg/dl Total Bilirubin 0.2 (0.2-1) mg/dl AST 35 (15-37) U/L ALT 29 (12-78) U/L Alkaline Phosphatase 140 H (45-117) U/L Troponin I 0.024 (0-0.045) ng/ml Total Protein 7.4 (6.4-8.2) gm/dl Albumin 3.1 L (3.4-5.0) gm/dl Globulin 4.3 H (2.5- 4.0) gm/dl Albumin/Globulin Ratio 0.7 L (0.9-2) Lipase 89 (73-393) U/L Beta-Hydroxybutyric Acd 1.99 (0.2-2.81) mg/dl Procalcitonin 0.08 (0-0.5) ng/ml Influenza Type A Ag (Neg) Influenza Type A (PCR) (Neg) Influenza Type B Ag (Neg) Influenza Type B (PCR) (Neg) Imaging Data Radiologist's Impression: Radiology results as stated below per my review and the radiologist's interpretation: XR chest 1V portable HISTORY: 79 years- old Female cough acute cough COMPARISON: Chest radiographs 08/21/2019, chest CT 08/17/2019 TECHNIQUE: Portable AP view of the chest FINDINGS: Cardiac silhouette is enlarged, unchanged. Calcified plaque of the thoracic aorta. Opacity of the medial right lung apex, likely external to the patient. No pneumothorax, overt pulmonary edema or large pleural effusion. Mild blunting of the costophrenic angles may be secondary to atelectasis versus trace effusions. Asymmetric patchy left lung base opacities. Mild chronic interstitial coarsening. Degenerative changes of the shoulders and spine. Right IJ central venous catheter is unchanged. IMPRESSION: 1. Cardiomegaly without overt pulmonary edema. 2. Subtle patchy asymmetric left lung base opacities suggest atelectasis versus pneumonitis. 3. Opacity of the medial right lung apex is likely secondary to object external to the patient. ACT 112: Negative or not required by law. The above report was generated using voice recognition software. It may contain grammatical, syntax or spelling errors. Electronically signed by: Rob Juarez M.D. 11/22/2019 4:26 PM ECG Data Attestation: I personally reviewed and interpreted this ECG as follows: Indication: + SOB/dyspnea Rate (beats per minute): 74 Rhythm: + normal sinus ECG Intervals/blocks: + Left bundle branch block ECG ST segments: no ST depression and no ST elevation ECG Findings: no PVCs Comparison ECG Date: from (11/04/19) Change: no significant change Blood Pressure Blood Pressure Findings: Elevated blood pressure Blood Pressure Disposition: further management by hospitalist MDM Narrative Patient is a 79-year-old female with an extensive past medical history including but not limited to stroke, CAD, COPD, diabetes, atrial fibrillation maintained on Coumadin presenting here today with son who reports failure is been sick with sinus issues and she developed a cough over the past 3 to 4 days. Significantly wheezy upon exam in the room and feels somewhat weak and mildly confused. Diffuse expiratory wheeze. Given DuoNeb treatment. Patient also states her blood sugars have been elevated in the 500s and 600s. This was checked and 419 here. Basic labs were sent. VBG blood cultures and lactate was ordered. Patient initially resistant to steroids as she states they have made her blood sugars high before. Evaluation for pneumonia on chest x-ray was unremarkable. No significant leukocytosis. Anemia at baseline. Chest x-ray without overt evidence of pulmonary edema. Asymmetric left lung base per radiology report procalcitonin not significantly elevated. Troponin detectable but not abnormal. Worsened kidney function today and elevated lactate. 500mL NSS bolus given. Blood cultures pending. Patient still significantly wheezy on reevaluation. Believe COPD exacerbation is primary issues here. Given a small mount of fluid. Patient in discussion was given some insulin and agreed for steroids. She was agreement to stay for further evaluation in hospital. [facility] hospitalist contacted. Impression & Plan COPD exacerbation, Weakness, Acute kidney injury, Elevated lactic acid level, Hyperglycemia due to type 2 diabetes mellitus Discharge Plan Visit Data Chief Complaint: Respiratory Problems Stated Complaint: SOB, COUGH ED Provider: Dylan Sheffield Discharge Problem: COPD exacerbation, Weakness, Acute kidney injury, Elevated lactic acid level, Hyperglycemia due to type 2 diabetes mellitus Patient Disposition: Being Evaluated by Hospitalist Forms Stand Alone Forms: My [facility] [place] Prescriptions Prescriptions: No Action ondansetron HCl [Zofran] 4 mg Tablet 4 mg PO Q8H PRN (Reason: Nausea) RF: 0 lorazepam [Ativan] 0.5 mg Tablet 0.5 mg PO Q6 PRN (Reason: Anxiety) RF: 0 ropinirole 1 mg tablet 1 mg PO HS RF: 0 mirtazapine 45 mg Tablet 45 mg PO HS RF: 0 atorvastatin 40 mg Tablet 40 mg PO QAM Qty: 30 RF: 0 isosorbide mononitrate 30 mg Tablet Extended Release 24 Hr 30 mg PO QAM Qty: 30 RF: 0 clopidogrel 75 mg Tablet 75 mg PO QAM Qty: 30 RF: 2 nitroglycerin [Nitrostat] 0.4 mg Tablet, Sublingual 0.4 mg Sublingual PRN PRN (Reason: chest pain) Qty: 30 RF: 0 losartan 100 mg tablet 100 mg PO QAM RF: 0 simethicone 80 mg Tablet,Chewable 80 mg PO Q6H PRN (Reason: Gastrointestinal Spasms Or Cramping) RF: 0 cholestyramine-aspartame 4 gram Powder In Packet 4 g PO QAM RF: 0 trazodone 50 mg Tablet 50 mg PO HS RF: 0 Novolin N NPH U-100 Insulin 100 unit/mL suspension 48 unit SUBCUT .QDINNER RF: 0 guaifenesin 100 mg/5 mL Liquid 100 mg PO Q6H PRN (Reason: Cough) RF: 0 warfarin [Coumadin] 5 mg tablet 5 mg PO DAILY RF: 0 magnesium oxide 400 mg (241.3 mg magnesium) tablet 400 mg PO QAM RF: 0 sennosides [senna] 8.6 mg Tablet 8.6 mg PO DAILY PRN (Reason: Constipation) RF: 0 cetirizine 5 mg Tablet 5 mg PO QPM RF: 0 meclizine 12.5 mg Tablet 12.5 mg PO Q8H PRN (Reason: Vertigo) RF: 0 magnesium hydroxide [Milk of Magnesia] 400 mg/5 mL Suspension 30 ml PO DAILY PRN (Reason: Constipation) RF: 0 gabapentin 800 mg Tablet 800 mg PO HS RF: 0 diltiazem HCl 120 mg Capsule,Extended Release 24 Hr 120 mg PO QAM RF: 0 bisacodyl 10 mg Suppository 10 mg TN DAILY PRN (Reason: Constipation) RF: 0 pantoprazole 40 mg Tablet,Delayed Release (Dr/Ec) 40 mg PO BID RF: 0 Novolin N NPH U-100 Insulin 100 unit/mL Suspension 70 unit SUBCUT QAM RF: 0 sertraline 25 mg Tablet 25 mg PO QPM RF: 0 budesonide 0.5 mg/2 mL Suspension For Nebulization 0.5 mg INHALATION BID RF: 0 montelukast 10 mg Tablet 10 mg PO HS RF: 0 metoprolol succinate 25 mg Tablet Extended Release 24 Hr 25 mg PO BID RF: 0 polyethylene glycol 3350 17 gram/dose Powder 17 g PO DAILY PRN (Reason: Constipation) RF: 0 dicyclomine 10 mg Capsule 10 mg PO TID PRN (Reason: Abdominal Pain) RF: 0 docusate sodium 100 mg Tablet 100 mg PO BID RF: 0 acetaminophen 325 mg Capsule 650 mg PO Q4H PRN (Reason: Pain) RF: 0 torsemide 10 mg tablet 10 mg PO 3XWK RF: 0 Referrals Referrals: ISIDORO HARDY WILMAR [Primary Care Provider] - Discharge Problem: Hyperglycemia due to type 2 diabetes mellitus Qualifiers: 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 I confirm that the note above accurately reflects all work, treatment, procedures, and medical decision making performed by me. Signed By: <Electronically signed by Dylan Sheffield M.D.> 11/22/19 1905 Created: 11/22/19 1545 . 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
== END 2019-11-25 02:26 | disposition expired | DRG 208 ==
LOC: ED 14:39 → 2N 18:25 → SUATTDRO 18:25 → 2N 19:17 → 1E 11-23 14:55 → 4W 11-24 17:43
DX: Z88.8 Allergy status to other drugs, medicaments and biological substances; I46.9 Cardiac arrest, cause unspecified; J69.0 Pneumonitis due to inhalation of food and vomit; Z79.01 Long term (current) use of anticoagulants; Z79.4 Long term (current) use of insulin; J44.1 Chronic obstructive pulmonary disease with (acute) exacerbation; N18.3 Chronic kidney disease, stage 3 (moderate); J81.1 Chronic pulmonary edema; I50.30 Unspecified diastolic (congestive) heart failure; Z51.5 Encounter for palliative care; N17.9 Acute kidney failure, unspecified; E11.65 Type 2 diabetes mellitus with hyperglycemia; Z66 Do not resuscitate; Z86.73 Personal history of transient ischemic attack (TIA), and cerebral infarction without residual deficits; Z88.2 Allergy status to sulfonamides; J96.01 Acute respiratory failure with hypoxia; I48.0 Paroxysmal atrial fibrillation; I25.10 Atherosclerotic heart disease of native coronary artery without angina pectoris; Z88.5 Allergy status to narcotic agent; Z88.6 Allergy status to analgesic agent; R74.0 Nonspecific elevation of levels of transaminase and lactic acid dehydrogenase [LDH]